=== PATIENT | female | born 1950 | race Caucasian/White ===

== ENCOUNTER 2017-06-07 10:30 | Outpatient (RCR) | payer MEDICARE, SELFPAY ==
--- NOTE | 2017-04-20 10:55 | HP.OTEVAL_ITS ---
Patient's Visit Information DANDRE PERAZA is a 66 year old F, referred to Occupational Therapy by Nae Pan DO,, with a diagnosis of right trigger finger D3 and D4. Date of Evaluation: 04/20/17 Occupational Therapist: Georgette Stockton, EUGENER/Rob, CHT - Subjective Subjective: pt states she was having trouble with right 3rd and 4th digit triggering- pt states she had a number of cortizone shots but after 2-3 trials her triggering cont. to get worse- pt is s/p right 3rd/and 4th trigger finger release on Mar.29. pt states limited ROM and strength are preventing her form perform her BADLS and IADLs ind. 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 - ROM MP: right MF 75 right RF 75 left MF 85 left RF 80 PIP: right MF 70 right RF 85 left MF 90 left RF 95 DIP: right MF 65 right RF 35 left [id number] left RF 50 - Strength Bobbin Inspector: right 22# left 30# Lateral Pinch: right 10# left 6# Tripod Pinch: right 2# left 2# - DASH-Disabilities of Arm, Shoulder& Hand DASH Sum: 77 - Goals Goal:: pt will demo a increase in right alumina plant supervisor strength to 35# or greater to retun pt to PLOF with BADLs and IADs. Goal:: Pt will demo a increase in the ability to form a composite fist to peform BADls and IADLS ind. Goal:: pt will report ind. with all home mtg tasks with no limited ROM or weakness preventing pt from performing her tasks by d/c - Rehabilitation General Assessment: pt S/P right trigger finger release of D3 and D4 Rehabilitation Potential: Excellent - Anticipated Interventions Anticipated Interventions: Strengthening, Scar Care, Triggerpoint Release, Modalities, Joint Protection/Energy Conservation - Visit Plan Frequency: 1-2x /Week Duration: 3 Weeks General Plan: pt will initiate BTE to increase pts functional strength, cont with scar and ROM to return pt to PLOF TEXT: Thank you for the opportunity to evaluate your patient. For Medicare and Medicare HMO plans, please review the plan of care and approve it. It will need to be FAXED BACK to us at [phone] for Medicare purposes. Please let me know if there are questions or concerns regarding this plan of care. Physician Signature: Date:
--- NOTE | 2017-05-24 11:43 | HP.PTEVAL_ITS ---
Patient's Visit Information DANDRE PERAZA is a 66 year old F referred to Physical Therapy by Nae Pan DO with a diagnosis of OA L knee. Date of Evaluation: 05/24/17 Physical Therapist: Dunia Gardiner - Visit Plan Frequency: 2x /Week Duration: 2 Weeks Plan: 2X/ week for 2 weeks for L knee and hip strength, core stability, L knee AROM, gait training with HEP and modalities if needed. - Subjective Subjective: Pt reports that her L knee is hurting and it swells. It strarted awhile ago. did x-rays and it showed arthritis. Pt points to the medial side of L knee. She reports that her L knee hurts when she tries to do things. She can not get down into the tub. She has a little trouble getting out of the bath tub. She fell by getting feet tied up in the sheet and fell 3 weeks ago and fell on her L side and eye on L side on dresser. She has also fallen on tailbone. SHe has stairs to basement to do laundry and can do them but bothers her knee and uses the railing. Pt is able to get up out of a chair without using her UE's. - Pain L knee pain Pain Intensity (Out of 10): 4 - Objective Knee AROM: -3 degrees to 132 degrees L knee flexion. -1 degree to 135 degrees R knee flexion. LE MMT: B hip flexion 4/5, B knee ext 4/5, B knee flexion, 4/5 , R hip abd 4-/5 and L 4/5, B hip ext 4-/5. Gait: Pt walks with very slight decrease in stance time on the L but it is very slight. Tight HS and gastroc complex B. Able to sit to stand without the use of her UE's. - Goals Goal 1:: I HEP Goal Time Frame: 2-4 Weeks Goal 2:: Increase L knee AROM -1 degrees to 135 degrees L knee flexion Goal Time Frame: 2-4 Weeks Goal 3:: Decrease pain to 2/10 with ADL's and stairs Goal Time Frame: 2-4 Weeks Goal 4:: Increase R hip extension and B hip extension strength to 4/5 Goal Time Frame: 2-4 Weeks - Rehabilitation Potential Rehabilitation Potential: Good - Anticipated Interventions Patient/Client Instruction: Educate patient on: Condition, Plan of Care For the Purpose of:: To decrease pain, To increase ROM, To improve nutrient delivery to tissue, To improve muscle performance and motor function, To improve ability to perform ADL's Therapeutic Exercise to Include: Strength training, Flexibilty training, Active ROM, Dynamic Lumbar Stabilization For the Purpose of:: To decrease pain, To increase ROM, To improve nutrient delivery to tissue, To improve muscle performance and motor function, To improve ability to perform ADL's Functional Training to Include: Gait training For the Purpose of:: To improve gait and locomotor functions IF ES: Yes Cryotherapy (ice pack, ice massage): Yes Thermo therapy (hot pack): Yes Ultrasound (thermal/non thermal): Yes For the Purpose of:: To decrease pain, To increase ROM, To improve nutrient delivery to tissue Thank you for the opportunity to evaluate your patient. For Medicare and Medicare HMO plans, please review the plan of care and approve it. It will need to be FAXED BACK to us at [phone] for Medicare purposes. Please let me know if there are questions or concerns regarding this plan of care. Physician Signature: Date:
--- NOTE | 2017-06-07 10:54 | HP.PTDCSUM ---
HP - PT D/C Summary It has been my pleasure to treat DANDRE PERAZA under orders from Nae Pan DO, for the diagnosis of OA L knee for a total of 5 visit(s). Discharge Date: 06/07/17 Please see the following information for a summary of their discharge status. - Subjective Subjective: Pt says that somedays her knees just hurt. Pt wants to keep doing the exercises at home...she can not afford her co-pay. - Pain L knee pain Pain Intensity (Out of 10): 3 - Overall Improvement % Improvement: 50 - Objective Objective/Function: L knee -3 degrees to 127 degrees knee flexion - Goals Goal 1:: I HEP Goal Progress: Goal Met Goal 2:: Increase L knee AROM -1 degrees to 135 degrees L knee flexion Goal Progress: Progressing Goal 3:: Decrease pain to 2/10 with ADL's and stairs Goal Progress: Progressing Goal 4:: Increase R hip extension and B hip extension strength to 4/5 Goal Progress: Progressing - Plan Plan: DC PT to HEP - D/C Information Discharge Comments: DC PT to HEP per pt request If there are questions or concerns regarding this patient's physical therapy, please feel free to call me at [phone]. Thank you for the referral of this patient. Sincerely, Dunia Gardiner
--- NOTE | 2017-08-09 09:19 | HP.OTDCSUM_ITS ---
HP - OT D/C Summary It has been my pleasure to treat DANDRE PERAZA under orders from Nae Pan DO, for the diagnosis of right trigger finger D3 and D4 for a total of 3 visit(s). Please see the following information for a summary of their discharge status. - Objective Objective/Function: pt demo the ability to form a composite fist- pt reports she has difficutly with opening jars/lids- pt states she has her do this for now - Goals Patient Goals: Regain Mobility, Regain Strength, Decrease Swelling/Stiffness, Use Hand/Wrist/Arm Normally Again, Increase ROM, Be More Independent in ADLS Goal:: pt will demo a increase in right inspector precision strength to 35# or greater to retun pt to PLOF with BADLs and IADs. Goal:: Pt will demo a increase in the ability to form a composite fist to peform BADls and IADLS ind. Goal:: pt will report ind. with all home mtg tasks with no limited ROM or weakness preventing pt from performing her tasks by d/c - Plan Plan: pt to cont with HEP PRE- - D/C Information If there are questions or concerns regarding this patient's occupational therapy , please fell free to call me at [phone]. Thank you for the referral of this patient. Sincerely, Georgette Stockton, OTR/L, CHT
== END 2017-06-07 19:00 | disposition home or self-care (01) ==
LOC: PT 10:30
PROVIDERS: Family Provider Family Medicine Geriatric Medicine; PCP Family Medicine Geriatric Medicine; Visit Provider Orthopaedic Surgery
DX: M25.641 Stiffness of right hand, not elsewhere classified (principal); M17.12 Unilateral primary osteoarthritis, left knee
CPT/HCPCS: 97018; 97035; 97110; 97140; 97161; 97166; 97530; G8987; G8988

== ENCOUNTER 2017-08-19 20:03 | Emergency (ER) | payer MEDICARE, SELFPAY ==
[2017-08-19 20:05] VITALS: BP 156/93; PULSE 101; RESP 16; TEMP 37.1; O2SAT 94; BMI 33.4
--- NOTE | 2017-08-19 20:33 | ED.DCSUM_ITS ---
- ER Visit Summary Date of Service: 08/19/17 Chief Complaint: Eye cold History of Present Illness: The patient is a 67 F who states that she has had a cold for the past week. When asked what symptoms she is having she states her eyes have been watery. She denies any cough runny nose sore throat earache or any other typical eye cold symptoms. Today she noticed bilateral eye exudates. She notes her eyes are red and continue to water. Clear rhinorrhea for years. No purulence. Since wears glasses but no contacts. She denies any visual changes. Physical Examination: Afebrile vital signs are stable Gen: Well-nourished well-developed Head: Normocephalic atraumatic Eyes: Perrl EOMI patient has bilateral conjunctival swelling and injection. There is exudate diffusely and on the lashes. ENT: TMs clear no rhinorrhea moist mucous membranes Neck: Supple no lymphadenopathy no JVD nontender CVS: Regular rate rhythm no murmurs normal S1-S2 Respiratory: No distress clear to auscultation bilaterally chest nontender Abdomen: Soft nontender nondistended normal bowel sounds no masses Back: Nontender Extremity: Nontender no edema Skin: Normal color no rash Neuro: alert orientated ?3 CN II-XII intact normal strength sensation reflexes gait cerebellar Psych: Normal affect normal mood Emergency Department Course and Treatment: Was treated with gentamicin ophthalmic drops. She will continue treatment at home. Return if worsening follow-up as needed. Impression: 1. Bilateral conjunctivitis This note was generated with [employer] dictation software. It may contain incorrect words, spelling, and punctuation that were not noted in review of the chart prior to signing ED Disposition - Plan for ED Patient: Disposition: Home or Assisted Living Chief Complaint: Eye Problem Instructions: ED Conjunctivitis Bacterial Prescriptions: Gentamicin Ophthalmic Drops [Garamycin Ophthalmic Drops] 2 drp EACH EYE Q4 7 Days #1 opth.btl Referrals: Raji Herrmann Chi, MD [Primary Care Provider] - 3-5 Days if not improving
[2017-08-19] MEDS: Gentamicin Sulfate 1 OPTH.BTL 2 DRP EACH EYE (20:50)
== END 2017-08-19 20:50 | disposition home or self-care (01) ==
LOC: ED 20:40
PROVIDERS: Emergency Provider Emergency Medicine; Family Provider Family Medicine Geriatric Medicine; PCP Family Medicine Geriatric Medicine
DX: H10.9 Unspecified conjunctivitis (principal); K21.9 Gastro-esophageal reflux disease without esophagitis; E78.00 Pure hypercholesterolemia, unspecified; E03.9 Hypothyroidism, unspecified; Z79.899 Other long term (current) drug therapy
CPT/HCPCS: 99282

== ENCOUNTER → 2017-10-17 16:53 | Outpatient (CLI) | payer MEDICARE, SELFPAY ==
--- NOTE | 2017-10-17 17:01 | RAD_ITS ---
STUDY: X-RAY - ABDOMEN/PELVIS REASON FOR EXAM: Female, 67 years old. Constipation, pain TECHNIQUE: AP supine and upright views of the abdomen and pelvis. COMPARISON: CT scan of the abdomen and pelvis December 04, 2014 FINDINGS: Normal visualized lung bases. There is a relative decompressed appearance of the colon with a minimal amount of stool within the descending colon. There is no demonstrated free abdominal air. The visualized liver, spleen and kidneys are grossly normal in size and morphology. There are tubal ligation clips present. Normal soft tissue structures. There are diffuse degenerative changes of the visualized lumbar spine. RAD/Abd Inc Decub and/or Erect IMPRESSION: Minimal stool burden. Nonspecific bowel gas pattern. Electronically Signed: Karon De La Vega MD at 17:32 EDT Tel , Service support ,
== END ==
PROVIDERS: Family Provider Family Medicine Geriatric Medicine; PCP Family Medicine Geriatric Medicine; Visit Provider Family Medicine Geriatric Medicine
DX: K59.00 Constipation, unspecified (principal)
CPT/HCPCS: 74019; J2405

== ENCOUNTER 2017-10-24 16:00 | Inpatient (IN) | payer MEDICARE, SELFPAY ==
--- NOTE | 2017-10-13 08:27 | EKG12_ITS ---
Test Reason : Blood Pressure : / mmHG Vent. Rate : 072 BPM Atrial Rate : 072 BPM P-R Int : 138 ms QRS Dur : 082 ms QT Int : 394 ms P-R-T Axes : -10 -05 008 degrees QTc Int : 431 ms Normal sinus rhythm Possible Inferior infarct , age undetermined Abnormal ECG Confirmed by JENNIFER SHAH, HUGO ([id number]), editor index CALIXTO ZHANG ([id number]) on 10/17/2017 3:58:49 PM Referred By: MELQUIADES Confirmed By:HUGO RODRIGUEZ MD
[2017-10-13 08:29] VITALS: BP 148/79; PULSE 75; RESP 18; TEMP 37.1; O2SAT 96; BMI 32.0
[2017-10-13 09:21] LABS: Absolute Lymphocyte Count 2.34 X10^3/ul (0.83-4.51); Absolute Neutrophil Count 2.7 X10^3/uL (2.0-7.7); Basophil# 0.03 X10^3/uL; Basophil% 0.5 % (0-1); Eosinophil# 0.22 X10^3/uL; Eosinophils% 3.4 % (0-5); Hematocrit 40.7 % (37-47); Hemoglobin 12.7 g/dl (12.0-15.0); Lymphocyte # 2.34 X10^3/ul (4.0); Lymphocyte % 36.2 % (19-41); Mean Corp Hgb Conc 31.2 g/gl (32-36); Mean Corpuscular Hgb 28.4 pg (27.0-32.0); Mean Corpuscular Volume 91.1 fL (81-99); Monocyte# 1.16 X10^3/uL; Monocyte% 17.9 % (0-10); Neutrophil # 2.72 X10^3/uL (2.7-7.7); POSITIVE COUNT NO; POSITIVE DIFFERENTIAL NO; POSITIVE MORPHOLOGY NO; Platelet Count 258 K/mm3 (150-450); RBC Distribution Width CV 12.7 % (11.6-14.6); RBC Distribution Width SD 42.1 fl (35.1-43.9); Red Blood Count 4.47 M/mm3 (4.2-5.4); White Blood Count 6.5 K/mm3 (4.4-11.0)
[2017-10-13 09:51] LABS: Anion Gap 7 (5-15); BUN 7 mg/dL (7-18); BUN/Creat Ratio 8.9 RATIO (10-20); Calcium,Total 8.8 mg/dL (8.5-10.1); Chloride 106 mmol/L (98-107); Creatinine, Serum 0.79 mg/dL (0.55-1.02); EST Glomerular Filtration Rate 77 mL/min (>60); Est Glom Filt Rate - Afr Amer 93 mL/min (>60); Estimated Creatinine Clearance 47.78 ml/min; Glucose 88 mg/dL (74-106); Potassium 3.8 mmol/L (3.5-5.1); Sodium Level 140 mmol/L (136-145); Thyroid Stim Hormone (TSH) 2.64 uIU/mL (0.358-3.74)
--- NOTE | 2017-10-20 11:37 | CASEMGMT ---
RN CM attempted to perform pre-op discharge needs assessment. Voicemail received and left contact information, requesting return call to CM.
--- NOTE | 2017-10-24 14:40 | RAD_ITS ---
STUDY: X-RAY - LEFT KNEE REASON FOR EXAM: Female, 67 years old. Postop TECHNIQUE: 2 view(s) of the knee. COMPARISON: April 17, 2017 FINDINGS: Status post left total knee replacement. The hardware components are well aligned. Postsurgical changes in the adjacent soft tissue. Skin aleyda anteriorly.. RAD/Knee 1 or 2 Views IMPRESSION: Status post total left knee replacement with postsurgical changes. Electronically Signed: Wilmer Lemon DO at 21:24 EDT Tel [phone], Service support ,
--- NOTE | 2017-10-24 16:00 | DT_ITS ---
This patient was seen during an EMR downtime October 23, 2017 - October 30, 2017. This patient may have a combination of paper and electronic documentation or all paper documentation. All documentation is viewable within the e-chart portion of [employer] for each patient visit.
[2017-10-28 08:40] LABS: Red Blood Count 3.87 M/mm3 (4.2-5.4); White Blood Count 13.6 K/mm3 (4.4-11.0)
[2017-10-28 08:41] LABS: Hematocrit 35.4 % (37-47); Mean Corp Hgb Conc 31.1 g/gl (32-36); Mean Corpuscular Hgb 28.4 pg (27.0-32.0); Mean Corpuscular Volume 91.5 fL (81-99); Mean Platelet Vol. 11.5 fl (6.2-12.0); Platelet Count 256 K/mm3 (150-450); RBC Distribution Width CV 12.9 % (11.6-14.6); RBC Distribution Width SD 43.1 fl (35.1-43.9); Scan Indicated on CBC? Y/N NO
[2017-10-28 10:15] LABS: Anion Gap 10 (5-15); BUN 11 mg/dL (7-18); BUN/Creat Ratio 13.1 RATIO (10-20); Calcium,Total 8.3 mg/dL (8.5-10.1); Chloride 106 mmol/L (98-107); Creatinine, Serum 0.84 mg/dL (0.55-1.02); EST Glomerular Filtration Rate 71 mL/min (>60); Est Glom Filt Rate - Afr Amer 86 mL/min (>60); Estimated Creatinine Clearance 56.88 ml/min; Glucose 122 mg/dL (74-106); Potassium 4.2 mmol/L (3.5-5.1); Sodium Level 142 mmol/L (136-145)
[2017-10-28 15:23] LABS: Hematocrit 33.5 % (37-47); Hemoglobin 10.4 g/dl (12.0-15.0); Mean Corpuscular Hgb 28.7 pg (27.0-32.0); Mean Corpuscular Volume 92.5 fL (81-99); Platelet Count 226 K/mm3 (150-450); RBC Distribution Width CV 13.2 % (11.6-14.6); RBC Distribution Width SD 44.9 fl (35.1-43.9); Red Blood Count 3.62 M/mm3 (4.2-5.4); White Blood Count 10.5 K/mm3 (4.4-11.0)
[2017-10-28 15:24] LABS: Mean Platelet Vol. 11.4 fl (6.2-12.0); Scan Indicated on CBC? Y/N NO
== END 2017-10-26 15:45 | disposition home or self-care (01) | DRG 470 ==
PROVIDERS: Anesthesiology; Admitting Provider Specialist; Family Provider Family Medicine Geriatric Medicine; PCP Family Medicine Geriatric Medicine; Visit Provider Specialist
PROC: 0SRD0J9 Replacement of Left Knee Joint with Synthetic Substitute, Cemented, Open Approach (ICD-10-PCS; CPT 27447; principal; 2017-10-24 12:15)
DX: M17.0 Bilateral primary osteoarthritis of knee (principal); I10 Essential (primary) hypertension; E03.9 Hypothyroidism, unspecified; F32.9 Major depressive disorder, single episode, unspecified; E78.00 Pure hypercholesterolemia, unspecified; Z79.899 Other long term (current) drug therapy
CPT/HCPCS: 36415; 73560; 80048; 84443; 85025; 85027; 87081; 93005; 97116; 97162; 97166; 97530; 97535; C1776; J7120; G8978; G8979; G8987; G8988; J2405

== ENCOUNTER → 2017-11-30 09:15 | Outpatient (CLI) | payer MEDICARE, SELFPAY ==
[2017-11-30 17:26] LABS: Absolute Lymphocyte Count 2.96 X10^3/ul (0.83-4.51); Absolute Neutrophil Count 3.3 X10^3/uL (2.0-7.7); Basophil# 0.03 X10^3/uL; Basophil% 0.4 % (0-1); Eosinophil# 0.18 X10^3/uL; Eosinophils% 2.4 % (0-5); Hematocrit 41.2 % (37-47); Hemoglobin 12.8 g/dl (12.0-15.0); Lymphocyte # 2.96 X10^3/ul (4.0); Lymphocyte % 38.9 % (19-41); Mean Corp Hgb Conc 31.1 g/gl (32-36); Mean Corpuscular Hgb 28.7 pg (27.0-32.0); Mean Corpuscular Volume 92.4 fL (81-99); Mean Platelet Vol. 11.6 fl (6.2-12.0); Monocyte# 1.16 X10^3/uL; Monocyte% 15.3 % (0-10); Neutrophil # 3.26 X10^3/uL (2.7-7.7); Neutrophil % 42.9 % (47-70); Platelet Count 291 K/mm3 (150-450); RBC Distribution Width CV 13.5 % (11.6-14.6); RBC Distribution Width SD 44.5 fl (35.1-43.9); Red Blood Count 4.46 M/mm3 (4.2-5.4); White Blood Count 7.6 K/mm3 (4.4-11.0)
[2017-11-30 17:49] LABS: POSITIVE COUNT NO; POSITIVE DIFFERENTIAL NO; POSITIVE MORPHOLOGY NO
[2017-11-30 17:58] LABS: ALB/GLOB Ratio 0.8 RATIO (0.9-2.4); AST(SGOT) 22 U/L (15-37); Alanine Aminotransfer ALT/SGPT 19 U/L (13-56); Albumin, Serum 3.8 g/dL (3.2-5.0); Alkaline Phosphatase 161 U/L (45-117); Anion Gap 11 (5-15); BUN 5 mg/dL (7-18); BUN/Creat Ratio 6.6 RATIO (10-20); Calcium,Total 8.9 mg/dL (8.5-10.1); Chloride 103 mmol/L (98-107); Cholesterol 169 mg/dL (200); Creatinine, Serum 0.76 mg/dL (0.55-1.02); EST Glomerular Filtration Rate 80 mL/min (>60); Est Glom Filt Rate - Afr Amer 97 mL/min (>60); Globulin 4.6 g/dL (2.2-4.2); Glucose 88 mg/dL (74-106); High Density Lipoprotein 48 mg/dL; Potassium 3.6 mmol/L (3.5-5.1); Protein, Total 8.4 g/dL (6.4-8.2); Sodium Level 141 mmol/L (136-145); Triglycerides 234 mg/dL; Very Low Density Lipoprotein 47 mg/dL (5-40)
[2017-12-01 09:00] LABS: Vitamin D,25 Hydroxy 33.2 ng/mL (29.95-100.01)
[2017-12-03 10:21] LABS: Hep C Antibodies 0.1 s/co ratio (0.0-0.9)
== END ==
PROVIDERS: Family Provider Family Medicine Geriatric Medicine; PCP Family Medicine Geriatric Medicine; Visit Provider Family Medicine Geriatric Medicine
DX: E55.9 Vitamin D deficiency, unspecified (principal); E78.4 Other hyperlipidemia; I10 Essential (primary) hypertension; Z13.89 Encounter for screening for other disorder
CPT/HCPCS: 36415; 80053; 80061; 82306; 84443; 85025; 86803

== ENCOUNTER → 2018-05-16 13:55 | Outpatient (CLI) | payer MEDICARE, SELFPAY ==
[2018-05-16 13:11] VITALS: BMI 32.0
== END ==
PROVIDERS: Family Provider Family Medicine Geriatric Medicine; PCP Family Medicine Geriatric Medicine; Referring Provider Physician Assistant; Visit Provider Physician Assistant
DX: J02.9 Acute pharyngitis, unspecified (principal)
CPT/HCPCS: 87081

== ENCOUNTER → 2018-05-23 17:02 | Outpatient (CLI) | payer MEDICARE, SELFPAY ==
[2018-05-16 13:11] VITALS: BMI 32.0
== END ==
PROVIDERS: Family Provider Family Medicine Geriatric Medicine; PCP Family Medicine Geriatric Medicine; Referring Provider Family Medicine Geriatric Medicine; Visit Provider Family Medicine Geriatric Medicine
DX: R68.83 Chills (without fever) (principal)
CPT/HCPCS: 87633

== ENCOUNTER → 2018-06-01 09:47 | Outpatient (CLI) | payer MEDICARE, SELFPAY ==
[2018-05-16 13:11] VITALS: BMI 32.0
--- NOTE | 2018-06-01 09:50 | BI_ITS ---
MAMMOGRAPHY - BILATERAL SCREENING REASON FOR EXAM: Female, 67 years old. Routine annual screening examination. PERTINENT HISTORY: Non-contributory. TECHNIQUE: Digital bilateral breast trinh (3D mammographic acquisition) in the CC and MLO projections. 2-D mediolateral oblique (MLO) and craniocaudad (CC) views of both breasts were obtained. . CAD was not performed on this study. COMPARISON: Comparison is made with prior study dated 2017 and December 21, 2015. FINDINGS: Breast Composition: The breasts are almost entirely fatty. There are no dominant masses or suspicious calcifications. Stable small bilateral axillary lymph nodes. No other significant abnormalities are identified. There has been no significant change since the prior study. BI/SCREENING MAMM (CAD), BILAT IMPRESSION: Stable bilateral screening mammogram. Yearly follow-up mammogram recommended. (A) ASSESSMENT CATEGORY: BIRADS Category 2: Benign. A letter regarding these results will be sent to the patient by the facility within 30 days. Approximately 10% of breast cancers are not detected by mammography. A normal mammogram should not delay biopsy of a clinically suspicious abnormality. [id number] Electronically Signed: Chan Bowers MD at 14:39 EST Tel [phone], Service support ,
== END ==
PROVIDERS: Family Provider Family Medicine Geriatric Medicine; PCP Family Medicine Geriatric Medicine; Visit Provider Family Medicine Geriatric Medicine
DX: Z12.31 Encounter for screening mammogram for malignant neoplasm of breast (principal)
CPT/HCPCS: 77063; 77067

== ENCOUNTER → 2018-06-06 13:30 | Outpatient (CLI) | payer MEDICARE, SELFPAY ==
[2018-05-16 13:11] VITALS: BMI 32.0
[2018-06-06 17:26] LABS: Absolute Lymphocyte Count 3.35 X10^3/ul (0.83-4.51); Absolute Neutrophil Count 3.6 X10^3/uL (2.0-7.7); Basophil# 0.03 X10^3/uL; Basophil% 0.3 % (0-1); Eosinophil# 0.13 X10^3/uL; Eosinophils% 1.5 % (0-5); Hematocrit 43.5 % (37-47); Hemoglobin 13.3 g/dl (12.0-15.0); Lymphocyte # 3.35 X10^3/ul (4.0); Lymphocyte % 38.8 % (19-41); Mean Corp Hgb Conc 30.6 g/gl (32-36); Mean Corpuscular Volume 94.8 fL (81-99); Mean Platelet Vol. 11.9 fl (6.2-12.0); Monocyte# 1.47 X10^3/uL; Neutrophil # 3.62 X10^3/uL (2.7-7.7); Neutrophil % 41.9 % (47-70); Platelet Count 336 K/mm3 (150-450); RBC Distribution Width CV 13.2 % (11.6-14.6); RBC Distribution Width SD 43.8 fl (35.1-43.9); Red Blood Count 4.59 M/mm3 (4.2-5.4); White Blood Count 8.6 K/mm3 (4.4-11.0)
[2018-06-06 17:41] LABS: Vitamin D,25 Hydroxy 27.7 ng/mL (29.95-100.01)
[2018-06-06 17:45] LABS: POSITIVE COUNT NO; POSITIVE DIFFERENTIAL NO; POSITIVE MORPHOLOGY NO
[2018-06-06 17:48] LABS: ALB/GLOB Ratio 0.9 RATIO (0.9-2.4); AST(SGOT) 20 U/L (15-37); Alanine Aminotransfer ALT/SGPT 26 U/L (13-56); Albumin, Serum 3.5 g/dL (3.2-5.0); Alkaline Phosphatase 113 U/L (45-117); Anion Gap 9 (5-15); BUN 14 mg/dL (7-18); BUN/Creat Ratio 16.1 RATIO (10-20); Calcium,Total 8.9 mg/dL (8.5-10.1); Chloride 104 mmol/L (98-107); Cholesterol 171 mg/dL (200); Creatinine, Serum 0.87 mg/dL (0.55-1.02); EST Glomerular Filtration Rate 68 mL/min (>60); Est Glom Filt Rate - Afr Amer 83 mL/min (>60); Globulin 3.9 g/dL (2.2-4.2); Glucose 74 mg/dL (74-106); High Density Lipoprotein 48 mg/dL; Potassium 3.9 mmol/L (3.5-5.1); Protein, Total 7.4 g/dL (6.4-8.2); Sodium Level 141 mmol/L (136-145); Thyroid Stim Hormone (TSH) 0.65 uIU/mL (0.358-3.74); Triglycerides 253 mg/dL; Very Low Density Lipoprotein 51 mg/dL (5-40)
--- OUTSIDE RECORDS SUMMARY | 2018-08-11 10:08 | XMS RPT_ITS ---
:1950 Author Organization [facility] Support Name Relationship Address Phone R Unavailable Unavailable Unavailable SWARTZENTRUBER, CIPRIANO Unavailable [address] + [place] [address] R Unavailable Unavailable Unavailable SWARTZENTRUBER, CIPRIANO Unavailable [address] + [place] [address] R Unavailable Unavailable Unavailable SWARTZENTRUBER, CIPRIANO Unavailable [address] + [place] [address] R Unavailable Unavailable Unavailable SWARTZENTRUBER, CIPRIANO Unavailable [address] + [place] [address] R Unavailable Unavailable Unavailable SWARTZENTRUBER, CIPRIANO Unavailable [address] + [place] [address] R Unavailable Unavailable Unavailable SWARTZENTRUBER, CIPRIANO Unavailable [address] + [place] [address] R Unavailable Unavailable Unavailable SWARTZENTRUBER, CIPRIANO Unavailable [address] + [place] [address] R Unavailable Unavailable Unavailable SWARTZENTRUBER, CIPRIANO Unavailable [address] + [place] [address] R Unavailable Unavailable Unavailable SWARTZENTRUBER, CIPRIANO Unavailable [address] + [place] [address] R Unavailable Unavailable Unavailable SWARTZENTRUBER, CIPRIANO Unavailable [address] + [place] [address] R Unavailable Unavailable Unavailable SWARTZENTRUBER, CIPRIANO Unavailable [address] + [place] [address] R Unavailable Unavailable Unavailable SWARTZENTRUBER, CIPRIANO Unavailable [address] + [place] [address] R Unavailable Unavailable Unavailable SWARTZENTRUBER, CIPRIANO Unavailable [address] + [place] [address] R Unavailable Unavailable Unavailable SWARTZENTRUBER, CIPRIANO Unavailable [address] + [place] [address] Care Team Providers Name Role Phone Jorge Cota Attending Unavailable Montez, Raji Chi Referring Unavailable Jorge Cota Attending Unavailable Jorge Cota Referring Unavailable Montez, Raji Chi Primary Care Unavailable Montez, Raji Chi Attending Unavailable Montez, Raji Chi Referring Unavailable Montez, Raji Chi Primary Care Unavailable Montez, Raji Chi Attending Unavailable Montez, Raji Chi Primary Care Unavailable Montez, Raji Chi Attending Unavailable Montez, Raji Chi Primary Care Unavailable Montez, Raji Chi Attending Unavailable Montez, Raji Chi Referring Unavailable Montez, Raji Chi Primary Care Unavailable Montez, Raji Chi Primary Care Unavailable Guilherme Todd Attending Unavailable Jorge Frances Admitting Unavailable Jorge Frances Attending Unavailable Montez, Raji Chi Primary Care Unavailable Montez, Raji Chi Attending Unavailable Montez, Raij Chi Referring Unavailable Montez, Raji Chi Primary Care Unavailable Lyle Saul Attending Unavailable Laverne Jurado Attending Unavailable Santana Rodriguez Attending Unavailable Jorge Frances Referring Unavailable Montez, Raji Chi Attending Unavailable Montez, Raji Chi Primary Care Unavailable Nae Pan Attending Unavailable Montez, Raji Chi Primary Care Unavailable PROBLEMS PROBLEMS DATE TYPE CONDITION / CODE ATTENDING STATUS SOURCE 06/15/2018 Unknown R68.83 - Chills Montez, Raji Chi Active [place] (without fever) / Community R68.83(ICD-10) Hospital Repository 11/30/2017 Unknown E55.9 - Vitamin D Montez, Raji Chi Active [place] deficiency, Community unspecified / Hospital E55.9(ICD-10) Repository 11/30/2017 Unknown E78.4 - Other Montez, Raji Chi Active [place] hyperlipidemia / Community E78.4(ICD-10) Hospital Repository 11/30/2017 Unknown I10 - Essential Montez, Raji Chi Active [place] (primary) hypertension Community / I10(ICD-10) Hospital Repository 11/30/2017 Unknown Z13.89 - Encounter for Montez, Raji Chi Active [place] screening for other Community disorder / Hospital Z13.89(ICD-10) Repository 10/17/2017 Unknown K59.00 - Constipation, Montez, Raji Chi Active [place] unspecified / Community K59.00(ICD-10) Hospital Repository 11/24/2017 Unknown R94.31 - Abnormal [place], Active [place] electrocardiogram [place] [ECG] [EKG] / Hospital R94.31(ICD-10) Repository 08/10/2017 Unknown M25.641 - Stiffness of [place], Active [place] right hand, not Nae Community elsewhere classified / Hospital M25.641(ICD-10) Repository PROCEDURES PROCEDURES No Procedure Records FoundRESULTS RESULTS Observed: 06/15/2018 Status: F Source: [place] RESPIRATORY PANEL 11:27 AM [facility]ULAR REPOSITORY RP PANEL Normal Reference Range = Not Detected RESULTS CALLED TO DR BLUE ANSWERING LINE 06/16/18 1106 Karon Trujillo. REPORT READ BACK BY NO ONE Copy of report sent to Infection Control Printer MS#[id number] 06/16/18 1105 DGRADY. ADENOVIRUS Not Detected HUMAN METAPHNEUMO Not Detected INFLUENZA A Positive for INFLUENZA A by NAAT technology INFLUENZA A (SUBTYPE H1) Positive for INFLUENZA A SUBTYPE H1 by NAAT technology INFLUENZA A (SUBTYPE H3) Not Detected INFLUENZA B Not Detected PARAINFLUENZA 1 Not Detected PARAINFLUENZA 2 Not Detected PARAINFLUENZA 3 Not Detected PARAINFLUENZA 4 Not Detected RHINOVIRUS Not Detected RSV A Not Detected RSV B Not Detected NAAT METHOD Testing was performed using nucleic acid amplification ORGANISM 1: INFLUENZA A (SUBTYPE H1) Performed By: #### M100.638 #### [facility] [address] [place], [address] VITAMIN D,25 HYDROXY Collected: 06/06/2018 Status: F Source: [place] 1:32 PM [facility] REPOSITORY TYPE CODE TESTS RESULT OUT OF REFERENCE UNITS RANGE LAB L506.1000 29.95-100.01 ng/mL Low Vitamin D 27.7 25-OH Result Comment: Vitamin D 25(OH) Status Range Deficiency <20 ng/mL (50nmol/L) Insuffciency 20 - 30 ng/mL (50 - 75 nmol/L) Sufficiency 30 - 100 ng/mL (75 - 250 nmol/L) Toxicity >100 ng/mL (>250 nmol/L) Performed By: #### L506.1000 #### [facility] [address] [place], [address] CBC W/DIFF, AUTOMATED Collected: 06/06/2018 Status: F Source: [place] 1:32 PM [facility] REPOSITORY TYPE CODE TESTS RESULT OUT OF RANGE REFERENCE UNITS LAB L100.1000 4.4-11.0 K/mm3 Normal WBC 8.6 LAB L100.1200 4.2-5.4 M/mm3 Normal RBC 4.59 LAB L100.1300 12.0-15.0 g/dl Normal HGB 13.3 LAB L100.1400 37-47 % Normal HCT 43.5 LAB L100.1500 81-99 fL Normal MCV 94.8 LAB L100.1600 27.0-32.0 pg Normal MCH 29.0 LAB L100.1700 32-36 g/gl Low MCHC 30.6 LAB L100.1810 11.6-14.6 % Normal RDW CV 13.2 LAB L100.1820 35.1-43.9 fl Normal RDW SD 43.8 LAB L100.1900 150-450 K/mm3 Normal PLT 336 LAB L100.2000 6.2-12.0 fl Normal MPV 11.9 LAB L100.2100 47-70 % Low NEUT% 41.9 LAB L100.2200 19-41 % Normal LY% 38.8 LAB L100.2300 0-10 % High MONO% 17.0 LAB L100.2400 0-5 % Normal EO% 1.5 LAB L100.2500 0-1 % Normal BASO% 0.3 LAB L100.2550 0.0-0.9 % Normal IM GRAN % 0.500 Result Comment: IG% - Immature Granulocytes (promyelocytes, myelocytes and metamyelocytes) > 1% indicates that a LEFT SHIFT is Present. LAB L100.2620 2.0-7.7 X10 3/uL Normal Absolute Neut 3.6 LAB L100.2720 0.83-4.51 X10 3/ul Normal Absolute Lymph 3.35 Performed By: #### L100.0100 #### [facility] [place], [address] COMPREHENSIVE METABOLIC Collected: 06/06/2018 Status: F Source: [place] TAY 1:32 PM [facility] REPOSIT[facility] TYPE CODE TESTS RESULT OUT OF RANGE REFERENCE UNITS LAB L501.0100 74-106 mg/dL Normal GLU 74 Result Comment: Please note revised GLUCOSE reference range effective 2017. LAB L501.1000 7-18 mg/dL Normal BUN 14 LAB L501.1100 0.55-1.02 mg/dL Normal CREAT,SERUM 0.87 Result Comment: The validity of the calculated GFR AND GFRAA in patients over 70 years has not been determined. Clinical correlation is essential. LAB L501.1110 >60 mL/min Normal EST GFR 68 Result Comment: Non- GFR Calc LAB L501.1115 >60 mL/min Normal EST GFR - AA 83 Result Comment: GFR Calc LAB L501.1300 10-20 RATIO Normal BUN/CRE 16.1 LAB L501.1500 6.4-8.2 g/dL T Normal PROT 7.4 LAB L501.1800 3.2-5.0 g/dL Normal ALB 3.5 LAB L501.1950 2.2-4.2 g/dL Normal GLOB 3.9 LAB L501.2000 0.9-2.4 RATIO Normal A/G 0.9 LAB L501.2200 8.5-10.1 mg/dL CA Normal 8.9 LAB L501.4100 15-37 U/L Normal AST 20 LAB L501.4305 45-117 U/L Normal ALK P 113 LAB L501.4405 13-56 U/L Normal ALT 26 LAB L501.4600 0.20-1.00 mg/dL T Normal BILI 0.20 LAB L501.5300 136-145 mmol/L NA Normal 141 LAB L501.5600 3.5-5.1 mmol/L K Normal 3.9 LAB L501.5900 98-107 mmol/L CL Normal 104 LAB L501.6100 21.0-32.0 mmol/L Normal CO2 28.0 LAB L501.6200 5-15 Normal GAP 9 Performed By: #### L500.4050, L500.4100, L501.9520 #### [facility] [address] [place], [address] LIPID PROFILE Collected: 06/06/2018 Status: F Source: [place] 1:32 PM [facility] REPOSITORY TYPE CODE TESTS RESULT OUT OF RANGE REFERENCE UNITS LAB L501.4900 200 mg/dL Normal CHOL 171 Result Comment: <200 mg/dL Desirable 200-240 mg/dL Borderline >240 mg/dL High Risk LAB L501.5000 mg/dL High TRIG 253 Result Comment: The drugs N-Acetylcysteine and Metamizole may falsely depress this assay. Serum Triglycerides Reference Interval Normal <150 mg/dL Borderline high 150 - 199 mg/dL High 200 - 499 mg/dL Very High > or = 500 mg/dL LAB L501.6400 mg/dL Normal HDL 48 Result Comment: The drugs N-Acetylcysteine and Metamizole may falsely depress this assay. Reference Range HDL <40 mg/dL Low HDL Cholesterol HDL >or= 60 mg/dL High HDL Cholesterol LAB L501.6500 0-130 mg/dL Normal LDL 72 LAB L501.6600 5-40 mg/dL High VLDL 51 Performed By: #### L500.4050, L500.4100, L501.9520 #### [facility] [address] [facility] [place], [address] THYROID STIM HORMONE Collected: 06/06/2018 Status: F Source: [place] (TSH) 1:32 PM [facility] REPOSITORY TYPE CODE TESTS RESULT OUT OF RANGE REFERENCE UNITS LAB L501.9520 0.358-3.74 uIU/mL Normal TSH 0.65 Performed By: #### L500.4050, L500.4100, L501.9520 #### [facility] [address] [place], [address] SCREENING MAMM (CAD), Observed: 06/01/2018 Status: F Source: [place] BILAT 9:50 AM [facility] REPOSITORY [facility] Imaging Services [address] [place] [address] SCREENING MAMM (CAD), BILAT MR#: [id number] Acct: [id number] Name: DANDRE PERAZA Rep #: [id number] : 1950 F 67 From: Chan Bowers MD PCP: Raji Blue MD, Chi Status: REG CLI Study: SCREENING MAMM (CAD), BILAT Date of Exam: 06/01/18 Exam# [id number] Ordering Dr: Raji Blue MD MAMMOGRAPHY - BILATERAL SCREENING REASON FOR EXAM: Female, 67 years old. Routine annual screening examination. PERTINENT HISTORY: Non-contributory. TECHNIQUE: Digital bilateral breast trinh (3D mammographic acquisition) in the CC and MLO projections. 2-D mediolateral oblique (MLO) and craniocaudad (CC) views of both breasts were obtained. . CAD was not performed on this study. COMPARISON: Comparison is made with prior study dated 2017 and December 21, 2015. FINDINGS: Breast Composition: The breasts are almost entirely fatty. There are no dominant masses or suspicious calcifications. Stable small bilateral axillary lymph nodes. No other significant abnormalities are identified. There has been no significant change since the prior study. BI/SCREENING MAMM (CAD), BILAT IMPRESSION: Stable bilateral screening mammogram. Yearly follow-up mammogram recommended. (A) ASSESSMENT CATEGORY: BIRADS Category 2: Benign. A letter regarding these results will be sent to the patient by the facility within 30 days. Approximately 10% of breast cancers are not detected by mammography. A normal mammogram should not delay biopsy of a clinically suspicious abnormality. [id number] Electronically Signed: Chan Bowers MD at 14:39 EST Tel [phone], Service support , CC: Raji Blue MD [employer] Plant Manager: Signed Observed: 05/23/2018 Status: F Source: [place] RESPIRATORY PANEL 5:33 PM [facility] REPOSIT[facility] RP PANEL Normal Reference Range = Not Detected RESULTS CALLED TO NURSE NADINE 05/24/18 1432 Katharine Gandara. Copy of report sent to Infection Control Printer MS#[id number] 05/24/18 143Raman SIMS. ADENOVIRUS Not Detected HUMAN METAPHNEUMO Positive for HUMAN METAPHNEUMO VIRUS by NAAT technology INFLUENZA A Not Detected INFLUENZA A (SUBTYPE H1) Not Detected INFLUENZA A (SUBTYPE H3) Not Detected INFLUENZA B Not Detected PARAINFLUENZA 1 Not Detected PARAINFLUENZA 2 Not Detected PARAINFLUENZA 3 Not Detected PARAINFLUENZA 4 Not Detected RHINOVIRUS Not Detected RSV A Not Detected RSV B Not Detected NAAT METHOD Testing was performed using nucleic acid amplification ORGANISM 1: HUMAN META Performed By: #### M100.638 #### [facility] [address] [place], [place], [id number] Observed: 05/16/2018 Status: F Source: [place] CULTURE, R/O STREP A 2:22 PM [facility] REPOSITORY ALVA Culture No Group A Beta Streptococcus isolated. * This cultures intended use is to screen for Beta Streptococcus A only. All other pathogens and potential pathogens will not be screened for or reported. If a complete workup of all potential pathogens is indicated an order for a routine throat culture is required. Performed By: #### M100.010 #### [facility] [address] [place], [place], [id number] URGENT CARE VISIT Observed: 05/16/2018 Status: F Source: [place] REPORT 1:11 PM [facility] REPOSITORY 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 Required: No Accompanied by: Self Is patient in pain?: No Allergies histamine phosphate [From Histatrol] Allergy (Verified 10/13/17 08:09) Unknown Medications Levothyroxine [Synthroid] 88 mcg PO DAILY 08/21/13 [History Confirmed 10/13/17] Omeprazole [Prilosec] 40 mg PO DAILY 08/21/13 [History Confirmed 10/13/17] Olanzapine 5 mg PO DAILY 03/22/17 [History Confirmed 10/13/17] Paroxetine HCl [Paxil] 40 mg PO DAILY 03/22/17 [History Confirmed 10/13/17] Potassium 20 mg PO BID 03/22/17 [History Confirmed 10/13/17] Pravastatin [Pravachol] 40 mg PO QHS 03/22/17 [History Confirmed 10/13/17] Quetiapine Fumarate [Seroquel] 25 mg PO DAILY 08/19/17 [History Confirmed 10/13/17] Calcium Carbonate/Vitamin D3 [Calcium 600-Vit D3 800 Tablet] 1 ea PO DAILY 10/13/17 [History Confirmed 10/13/17] azithromycin 250 mg tablet 250 mg PO QDAY #12 tab 05/16/18 [Rx Confirmed 05/16/18] Nurse's Note: Patient did not have medication list available [facility] History Hemorrhoids (Acute) Thyroid disease (Acute) Surgical History History of knee replacement (Acute) Family History Other Heart disease Social History Smoking Status: Never smoker HPI HPI Chief Complaint: Sore throat, cough Details: DANDRE PERAZA, is a 67 F who presents to the office today for initial evaluation approximately 1 month history of facial pressure, postnasal drip, sore throat, cough. Patient notes associated chills, though no complaints of fever, sweats, rash, chest pain/shortness of breath. Patient is a non-smoker, noting having several grandkids over over the last couple of months who she states has been sick with coughs and sore throats as well. No jvsy-krz-iwzmiwt products have been tried to assist with symptoms. No other associated symptoms and no other alleviating or aggravating factors ROS Const Constitutional: No other (ROS negative x10 other than as noted above) Exam Const General: cooperative, healthy appearing, no acute distress, uncomfortable Orientation: alert, awake, oriented x3 HENMT Head: normal to inspection Ears: hearing grossly normal bilaterally, external ears normal, TM's normal bilaterally, EAC's normal Nose: external nose normal, nares normal, septum normal, no nasal discharge Face and sinus: normal facial exam, face symmetric, sinus tenderness frontal and ethmoid Mouth: oral mucosae normal, lip normal, tongue normal Teeth and gingiva: gingiva normal, dentition normal Throat: uvula midline, tonsils normal, posterior oropharynx normal, postnasal drainage (Scant purulent) Eyes General: appearance normal, both eyes and all related structures Neck Neck: normal visual inspection, full ROM, no lymphadenopathy, no meningeal signs, supple Neck mass: No Thyroid: thyroid normal Lymphatic: no lymphadenopathy noted Chest Chest palpation AND inspection: normal inspection of the chest Resp Effort AND Inspection: normal respiratory effort, able to speak in complete sentences Auscultation: Bilateral: Clear to Auscultation Cardio Palpation: normal PMI Rate: regular rate Rhythm: regular rhythm Heart Sounds: S1 normal, S2 normal, no gallops, no murmurs, no rubs Pulses: radial pulses present GI Inspection: normal to inspection Palpation: soft, no hepatosplenomegaly Skin General: no rashes or lesions noted Neuro General: alert, awake, oriented x3, gait normal Cognition: normal cognition Speech: speech normal Gait: normal gait Motor: muscle tone normal throughout Sensory Exam: no sensory deficits noted Psych Appearance: grossly normal Mental Status: mental status grossly normal Mood: congruent mood Affect: normal affect Speech and Movement: speech and movement normal Attitude: cooperative Thought Process: normal Thought Content: normal Judgment: judgment good Assessment AND Plan Problems 1. Sinusitis J32.9 Plan 11-day course of azithromycin as prescribed today. Clear fluids, rest, Tylenol, warm facial compresses as needed as instructed today. Follow-up with PCP in 3-5 days should symptoms not improved, sooner should symptoms worsen or any other concerns develop. Patient states acknowledging understanding all the above. This note was generated with [employer] dictation software. It may contain incorrect words, spelling, and punctuation that were not noted in checking the note before signing. Medications New: azithromycin 2 tablets today, then 1 tablet daily on days 2250 mg PO QDAY 12 tabs 0RF through 11 Coding Level of Care Code Off vis,est,level 3 Diagnoses Sinusitis J32.9 05/16/18 1311 <Electronically signed by Jorge ESCOBAR> Date Jorge ESCOBAR Cosigner Signature: Date (if applicable) CC: CBC W/DIFF, AUTOMATED Collected: 11/30/2017 Status: F Source: [place] 4:30 PM [facility] REPOSIT[facility] TYPE CODE TESTS RESULT OUT OF RANGE REFERENCE UNITS LAB L100.1000 4.4-11.0 K/mm3 Normal WBC 7.6 LAB L100.1200 4.2-5.4 M/mm3 Normal RBC 4.46 LAB L100.1300 12.0-15.0 g/dl Normal HGB 12.8 LAB L100.1400 37-47 % Normal HCT 41.2 LAB L100.1500 81-99 fL Normal MCV 92.4 LAB L100.1600 27.0-32.0 pg Normal MCH 28.7 LAB L100.1700 32-36 g/gl Low MCHC 31.1 LAB L100.1810 11.6-14.6 % Normal RDW CV 13.5 LAB L100.1820 35.1-43.9 fl High RDW SD 44.5 LAB L100.1900 150-450 K/mm3 Normal PLT 291 LAB L100.2000 6.2-12.0 fl Normal MPV 11.6 LAB L100.2100 47-70 % Low NEUT% 42.9 LAB L100.2200 19-41 % Normal LY% 38.9 LAB L100.2300 0-10 % High MONO% 15.3 LAB L100.2400 0-5 % Normal EO% 2.4 LAB L100.2500 0-1 % Normal BASO% 0.4 LAB L100.2550 0.0-0.9 % Normal IM GRAN % 0.100 Result Comment: IG% - Immature Granulocytes (promyelocytes, myelocytes and metamyelocytes) > 1% indicates that a LEFT SHIFT is Present. LAB L100.2620 2.0-7.7 X10 3/uL Normal Absolute Neut 3.3 LAB L100.2720 0.83-4.51 X10 3/ul Normal Absolute Lymph 2.96 Performed By: #### L100.0100 #### [facility] [address] [place], [address] COMPREHENSIVE METABOLIC Collected: 11/30/2017 Status: F Source: [place] [facility] 4:30 PM [facility] REPOSIT[facility] TYPE CODE TESTS RESULT OUT OF RANGE REFERENCE UNITS LAB L501.0100 74-106 mg/dL Normal GLU 88 Result Comment: Please note revised GLUCOSE reference range effective 2017. LAB L501.1000 7-18 mg/dL Low BUN 5 LAB L501.1100 0.55-1.02 mg/dL Normal CREAT,SERUM 0.76 Result Comment: The validity of the calculated GFR AND GFRAA in patients over 70 years has not been determined. Clinical correlation is essential. LAB L501.1110 >60 mL/min Normal EST GFR 80 Result Comment: Non- GFR Calc LAB L501.1115 >60 mL/min Normal EST GFR - AA 97 Result Comment: GFR Calc LAB L501.1300 10-20 RATIO Low BUN/CRE 6.6 LAB L501.1500 6.4-8.2 g/dL High T PROT 8.4 LAB L501.1800 3.2-5.0 g/dL Normal ALB 3.8 LAB L501.1950 2.2-4.2 g/dL High GLOB 4.6 LAB L501.2000 0.9-2.4 RATIO Low A/G 0.8 LAB L501.2200 8.5-10.1 mg/dL Normal CA 8.9 LAB L501.4100 15-37 U/L Normal AST 22 LAB L501.4305 45-117 U/L High ALK P 161 LAB L501.4405 13-56 U/L Normal ALT 19 LAB L501.4600 0.20-1.00 mg/dL Normal T BILI 0.20 LAB L501.5300 136-145 mmol/L Normal NA 141 LAB L501.5600 3.5-5.1 mmol/L Normal K 3.6 LAB L501.5900 98-107 mmol/L Normal CL 103 LAB L501.6100 21.0-32.0 mmol/L Normal CO2 27.0 LAB L501.6200 5-15 Normal GAP 11 Performed By: #### L500.4050, L500.4100, L501.9520 #### [facility] [address] [place], [address] LIPID PROFILE Collected: 11/30/2017 Status: F Source: [place] 4:30 PM [facility] REPOSIT[facility] TYPE CODE TESTS RESULT OUT OF RANGE REFERENCE UNITS LAB L501.4900 200 mg/dL Normal CHOL 169 Result Comment: <200 mg/dL Desirable 200-240 mg/dL Borderline >240 mg/dL High Risk LAB L501.5000 mg/dL High TRIG 234 Result Comment: The drugs N-Acetylcysteine and Metamizole may falsely depress this assay. Serum Triglycerides Reference Interval Normal <150 mg/dL Borderline high 150 - 199 mg/dL High 200 - 499 mg/dL Very High > or = 500 mg/dL LAB L501.6400 mg/dL Normal HDL 48 Result Comment: The drugs N-Acetylcysteine and Metamizole may falsely depress this assay. Reference Range HDL <40 mg/dL Low HDL Cholesterol HDL >or= 60 mg/dL High HDL Cholesterol LAB L501.6500 0-130 mg/dL Normal LDL 74 LAB L501.6600 5-40 mg/dL High VLDL 47 Performed By: #### L500.4050, L500.4100, L501.9520 #### [facility] [address] [place], [place], [id number] THYROID STIM HORMONE Collected: 11/30/2017 Status: F Source: [place] (TSH) 4:30 PM [facility]POS[facility] TYPE CODE TESTS RESULT OUT OF RANGE REFERENCE UNITS LAB L501.9520 0.358-3.74 uIU/mL Normal TSH 1.40 Performed By: #### L500.4050, L500.4100, L501.9520 #### [facility] [address] [place], [address] VITAMIN D,25 HYDROXY Collected: 11/30/2017 Status: F Source: [place] 4:30 PM [facility] TYPE CODE TESTS RESULT OUT OF RANGE REFERENCE UNITS LAB L506.1000 29.95-100.01 ng/mL Normal Vitamin D 33.2 25-OH Result Comment: Vitamin D 25(OH) Status Range Deficiency <20 ng/mL (50nmol/L) Insuffciency 20 - 30 ng/mL (50 - 75 nmol/L) Sufficiency 30 - 100 ng/mL (75 - 250 nmol/L) Toxicity >100 ng/mL (>250 nmol/L) Performed By: #### L506.1000 #### [facility] [address] [facility] [place], [address] HEPATITIS C ANTIBODIES Collected: 11/30/2017 Status: F Source: [place] 4:30 PM [facility] TYPE CODE TESTS RESULT OUT OF RANGE REFERENCE UNITS LAB L3100.0650 0.0-0.9 s/co ratio Normal HEP C AB 0.1 Result Comment: Negative: < 0.8 Indeterminate: 0.8 - 0.9 Positive: > 0.9 The CDC recommends that a positive HCV antibody result be followed up with a HCV Nucleic Acid Amplification test (228897). Performed at: - [facility] [id number] [employer] Operator: Rajat Miller PhD, Phone: [phone] Performed By: #### L3100.0625 #### [facility] (refer to report for specific site) refer to report for address and phone number DOWNTIME REPORT Observed: 11/08/2017 Status: F Source: [place] 1:25 PM [facility] RE[facility]IT[facility] Medical Records Department [address] [place] [address] Downtime Report MR#: [id number] Acct: [id number] Name: DANDRE PERAZA Rep #: [id number] : 1950 67 From: Rajan Zhang MD PCP: [facility] SHAH,Raji Mckinney Status: DIS IN This patient was seen during an EMR downtime October 23, 2017 - October 30, 2017. This patient may have a combination of paper and electronic documentation or all paper documentation. All documentation is viewable within the e-chart portion of [employer] for each patient visit. KNEE 1 OR 2 VIEWS Observed: 10/26/2017 Status: F Source: JOVANNA 2:11 PM [facility] Imaging Services [address] [place] [address] Knee 1 or 2 Views MR#: [id number] Acct: [id number] Name: DANDRE PERAZA Rep #: [id number] : 1950 F 67 From: Wilmer Lemon DO PCP: Montez SHAH,Raji Mckinney Status: DIS IN Study: Knee 1 or 2 Views Date of Exam: 10/24/17 Exam# [id number] Ordering Dr: Jorge Frances MD STUDY: X-RAY - LEFT KNEE REASON FOR EXAM: Female, 67 years old. Postop TECHNIQUE: 2 view(s) of the knee. COMPARISON: April 17, 2017 FINDINGS: Status post left total knee replacement. The hardware components are well aligned. Postsurgical changes in the adjacent soft tissue. Skin aleyda anteriorly.. RAD/Knee 1 or 2 Views IMPRESSION: Status post total left knee replacement with postsurgical changes. Electronically Signed: Wilmer Lemon DO at 21:24 EDT Tel [phone], Service support , CC: Jorge Frances MD; Raji Blue MD [employer]fuels Plant Manager: Signed CBC-COMPLETE BLOOD CNT Collected: 10/26/2017 Status: F Source: JOVANNA NO DIFF 5:55 AM [facility] Order Comment: RESULT(S) PREVIOUSLY REPORTED ON MANUAL REQUISITION DURING DOWNTIME. TYPE CODE TESTS RESULT OUT OF RANGE REFERENCE UNITS LAB L100.1000 4.4-11.0 K/mm3 Normal WBC 10.5 LAB L100.1200 4.2-5.4 M/mm3 Low RBC 3.62 LAB L100.1300 12.0-15.0 g/dl Low HGB 10.4 LAB L100.1400 37-47 % Low HCT 33.5 LAB L100.1500 81-99 fL Normal MCV 92.5 LAB L100.1600 27.0-32.0 pg Normal MCH 28.7 LAB L100.1700 32-36 g/gl Low MCHC 31.0 LAB L100.1810 11.6-14.6 % Normal RDW CV 13.2 LAB L100.1820 35.1-43.9 fl High RDW SD 44.9 LAB L100.1900 150-450 K/mm3 Normal PLT 226 LAB L100.2000 6.2-12.0 fl Normal MPV 11.4 Performed By: #### L100.0500 #### [facility] [address] [place], [place], [id number] CBC-COMPLETE BLOOD CNT Collected: 10/25/2017 Status: F Source: JOVANNA NO DIFF 6:00 AM [facility] Order Comment: RESULT(S) PREVIOUSLY REPORTED ON MANUAL REQUISITION DURING DOWNTIME. TYPE CODE TESTS RESULT OUT OF RANGE REFERENCE UNITS LAB L100.1000 4.4-11.0 K/mm3 High WBC 13.6 LAB L100.1200 4.2-5.4 M/mm3 Low RBC 3.87 LAB L100.1300 12.0-15.0 g/dl Low HGB 11.0 LAB L100.1400 37-47 % Low HCT 35.4 LAB L100.1500 81-99 fL Normal MCV 91.5 LAB L100.1600 27.0-32.0 pg Normal MCH 28.4 LAB L100.1700 32-36 g/gl Low MCHC 31.1 LAB L100.1810 11.6-14.6 % Normal RDW CV 12.9 LAB L100.1820 35.1-43.9 fl Normal RDW SD 43.1 LAB L100.1900 150-450 K/mm3 Normal PLT 256 LAB L100.2000 6.2-12.0 fl Normal MPV 11.5 Performed By: #### L100.0500 #### [facility] [address] [place], [place], [id number] BASIC METABOLIC Collected: 10/25/2017 Status: F Source: JOVANNA PROFILE (BMP) 12:00 AM [facility] Order Comment: RESULT(S) PREVIOUSLY REPORTED ON MANUAL REQUISITION DURING DOWNTIME. TYPE CODE TESTS RESULT OUT OF RANGE REFERENCE UNITS LAB L501.0100 74-106 mg/dL High GLU 122 Result Comment: Fasting Glucose result from 100 to 125 mg/dL suggests IMPAIRED HOMEOSTASIS per A.D.A. criteria. Please note revised GLUCOSE reference range effective 2017. LAB L501.1000 7-18 mg/dL Normal BUN 11 LAB L501.1100 0.55-1.02 mg/dL Normal CREAT,SERUM 0.84 Result Comment: The validity of the calculated GFR AND GFRAA in patients over 70 years has not been determined. Clinical correlation is essential. LAB L501.1110 >60 mL/min EST GFR Normal 71 LAB L501.1115 >60 mL/min EST GFR Normal - AA 86 LAB L501.1255 ml/min Normal Estimated CRCL 56.88 LAB L501.1300 10-20 RATIO BUN/CRE Normal 13.1 LAB L501.2200 8.5-10.1 mg/dL Low CA 8.3 LAB L501.5300 136-145 mmol/L NA Normal 142 LAB L501.5600 3.5-5.1 mmol/L K Normal 4.2 LAB L501.5900 98-107 mmol/L CL Normal 106 LAB L501.6100 21.0-32.0 mmol/L CO2 Normal 26.0 LAB L501.6200 5-15 GAP Normal 10 Performed By: #### L500.2500 #### [facility] [address] [facility] [place], [address] ABD INC DECUB Observed: 10/17/2017 Status: F Source: JOVANNA AND/OR ERECT 5:01 PM [facility] Imaging Services [address] [place] [address] Abd Inc Decub and/or Erect MR#: [id number] Acct: [id number] Name: DANDRE PERAZA Rep #: [id number] : 1950 F 67 From: Karon De La Vega MD PCP: Raji Blue MD, Chi Status: REG CLI Study: Abd Inc Decub and/or Erect Date of Exam: 10/17/17 Exam# [id number] Ordering Dr: Raji Blue MD STUDY: X-RAY - ABDOMEN/PELVIS REASON FOR EXAM: Female, 67 years old. Constipation, pain TECHNIQUE: AP supine and upright views of the abdomen and pelvis. COMPARISON: CT scan of the abdomen and pelvis December 04, 2014 FINDINGS: Normal visualized lung bases. There is a relative decompressed appearance of the colon with a minimal amount of stool within the descending colon. There is no demonstrated free abdominal air. The visualized liver, spleen and kidneys are grossly normal in size and morphology. There are tubal ligation clips present. Normal soft tissue structures. There are diffuse degenerative changes of the visualized lumbar spine. RAD/Abd Inc Decub and/or Erect IMPRESSION: Minimal stool burden. Nonspecific bowel gas pattern. Electronically Signed: Karon De La Vega MD at 17:32 EDT Tel , Service support , CC: Raji Blue MD [employer] Plant Manager: Signed 12 LEAD ELECTROCARDIOGRAM Observed: 10/17/2017 Status: F Source: [place] 3:59 PM [facility] Cardiovascular Services [address] [place] [address] 12 Lead EKG 10/13/17 0749 MR#: [id number] Acct: [id number] Name: DANDRE PERAZA Rep #: [id number] : 1950 67 From: Santana Rodriguez MD Attending Dr: Jorge Frances MD Status: PRE IN Ordering Dr: Jorge Frances MD Date: 10/13/17 Location: [facility] [place] Sex: F C Admitted: Test Reason : Blood Pressure : / mmHG Vent. Rate : 072 BPM Atrial Rate : 072 BPM P-R Int : 138 ms QRS Dur : 082 ms QT Int : 394 ms P-R-T Axes : -10 -05 008 degrees QTc Int : 431 ms Normal sinus rhythm Possible Inferior infarct , age undetermined Abnormal ECG Confirmed by JENNIFER SHAH, SANTANA ([id number]), editor book CALIXTO ZHANG ([id number]) on 10/17/2017 3:58:49 PM Referred By: EMLQUIADES Confirmed By:SANTANA RODRIGUEZ MD 10/17/17 1558 Date Santana Rodriguez MD CC: Jorge Frances MD; Rjai Blue MD Signed CBC W/DIFF, AUTOMATED Collected: 10/13/2017 Status: F Source: JOVANNA 9:00 AM [facility] TYPE CODE TESTS RESULT OUT OF RANGE REFERENCE UNITS LAB L100.1000 4.4-11.0 K/mm3 Normal WBC 6.5 LAB L100.1200 4.2-5.4 M/mm3 Normal RBC 4.47 LAB L100.1300 12.0-15.0 g/dl Normal HGB 12.7 LAB L100.1400 37-47 % Normal HCT 40.7 LAB L100.1500 81-99 fL Normal MCV 91.1 LAB L100.1600 27.0-32.0 pg Normal MCH 28.4 LAB L100.1700 32-36 g/gl Low MCHC 31.2 LAB L100.1810 11.6-14.6 % Normal RDW CV 12.7 LAB L100.1820 35.1-43.9 fl Normal RDW SD 42.1 LAB L100.1900 150-450 K/mm3 Normal PLT 258 LAB L100.2000 6.2-12.0 fl Normal MPV 11.0 LAB L100.2100 47-70 % Low NEUT% 42.0 LAB L100.2200 19-41 % Normal LY% 36.2 LAB L100.2300 0-10 % High MONO% 17.9 LAB L100.2400 0-5 % Normal EO% 3.4 LAB L100.2500 0-1 % Normal BASO% 0.5 LAB L100.2550 0.0-0.9 % Normal IM GRAN % 0.000 Result Comment: IG% - Immature Granulocytes (promyelocytes, myelocytes and metamyelocytes) > 1% indicates that a LEFT SHIFT is Present. LAB L100.2620 2.0-7.7 X10 3/uL Normal Absolute Neut 2.7 LAB L100.2720 0.83-4.51 X10 3/ul Normal Absolute Lymph 2.34 Performed By: #### L100.0100 #### [facility] [address] [facility], [address] BASIC METABOLIC Collected: 10/13/2017 Status: F Source: JOVANNA PROFILE (BMP) 9:00 AM [facility] TYPE CODE TESTS RESULT OUT OF RANGE REFERENCE UNITS LAB L501.0100 74-106 mg/dL Normal GLU 88 Result Comment: Please note revised GLUCOSE reference range effective 2017. LAB L501.1000 7-18 mg/dL Normal BUN 7 LAB L501.1100 0.55-1.02 mg/dL Normal CREAT,SERUM 0.79 Result Comment: The validity of the calculated GFR AND GFRAA in patients over 70 years has not been determined. Clinical correlation is essential. LAB L501.1110 >60 mL/min Normal EST GFR 77 Result Comment: Non- GFR Calc LAB L501.1115 >60 mL/min Normal EST GFR - AA 93 Result Comment: GFR Calc LAB L501.1255 ml/min Normal Estimated CRCL 47.78 LAB L501.1300 10-20 RATIO Low BUN/CRE 8.9 LAB L501.2200 8.5-10 mg/dL Normal .1 CA 8.8 LAB L501.5300 136-14 mmol/L Normal 5 NA 140 LAB L501.5600 3.5-5. mmol/L Normal 1 K 3.8 LAB L501.5900 98-107 mmol/L Normal CL 106 LAB L501.6100 21.0-3 mmol/L Normal 2.0 CO2 27.0 LAB L501.6200 5-15 Normal GAP 7 Performed By: #### L500.2500, L501.9520 #### [facility] [address] [facility] [place], [place], [address] THYROID STIM HORMONE Collected: 10/13/2017 Status: F Source: JOVANNA (TSH) 9:00 AM [facility] TYPE CODE TESTS RESULT OUT OF RANGE REFERENCE UNITS LAB L501.9520 0.358-3.74 uIU/mL Normal TSH 2.64 Performed By: #### L500.2500, L501.9520 #### [facility] [address] [place], [address] Observed: 10/13/2017 Status: F Source: [place] MRSA/SAID SCREEN 8:30 AM [facility] MRSA/SAID SCRN S. AUREUS S. aureus Negative MRSA MRSA Negative Performed By: #### M100.651 #### [facility] [address] [place], [address] EMERGENCY DEPARTMENT Observed: 08/24/2017 Status: F Source: [place] SUMMARY 8:21 AM [facility] Medical Records Department [address] [facility] [place] [address] Emergency Department Summary 08/19/172031 MR#: [id number] Acct: [id number] Name: DANDRE PERAZA Rep #: [id number] : 1950 67 From: Guilherme Todd DO [facility] Status: [facility]P ER - ER Visit Summary Date of Service: 08/19/17 Chief Complaint: Eye cold History of Present Illness: The patient is a 67 F who states that she has had a cold for the past week. When asked what symptoms she is having she states her eyes have been watery. She denies any cough runny nose sore throat earache or any other typical eye cold symptoms. Today she noticed bilateral eye exudates. She notes her eyes are red and continue to water. Clear rhinorrhea for years. No purulence. Since wears glasses but no contacts. She denies any visual changes. Physical Examination: Afebrile vital signs are stable Gen: Well-nourished well-developed Head: Normocephalic atraumatic Eyes: Perrl EOMI patient has bilateral conjunctival swelling and injection. There is exudate diffusely and on the lashes. ENT: TMs clear no rhinorrhea moist mucous membranes Neck: Supple no lymphadenopathy no JVD nontender CVS: Regular rate rhythm no murmurs normal S1-S2 Respiratory: No distress clear to auscultation bilaterally chest nontender Abdomen: Soft nontender nondistended normal bowel sounds no masses Back: Nontender Extremity: Nontender no edema Skin: Normal color no rash Neuro: alert orientated 3 CN II-XII intact normal strength sensation reflexes gait cerebellar Psych: Normal affect normal mood Emergency Department Course and Treatment: Was treated with gentamicin ophthalmic drops. She will continue treatment at home. Return if worsening follow- up as needed. Impression: 1. Bilateral conjunctivitis This note was generated with [employer] dictation software. It may contain incorrect words, spelling, and punctuation that were not noted in review of the chart prior to signing ED Disposition - Plan for ED Patient: Disposition: Home or Assisted Living Chief Complaint: Eye Problem Instructions: ED Conjunctivitis Bacterial Prescriptions: Gentamicin Ophthalmic Drops [Garamycin Ophthalmic Drops] 2 drp EACH EYE Q4 7 Days #1 opth.btl Referrals: Raji Blue Chi, MD [Primary Care Provider] - 3-5 Days if not improving What to do if you have Problems For any increased pain, shortness of breath, bleeding, nausea or vomiting, chest pain, or any unexpected problems, contact your Primary Care Provider. Call [facility] ([phone]) or report to the closest Emergency Room. Call 911 if necessary. 08/24/17820 <Electronically signed by Guilherme Todd DO> Date Guilherme Todd DO Cosigner Signature (If Indicated): Date CC: Raji Blue MD OT D/C SUMMARY Observed: 08/09/2017 Status: F Source: [place] 11:38 AM [facility] [address] [place] [address]. [address] [place] [address] Fax REHABILITATION SERVICES DISCHARGE SUMMARY MR#: [id number] Acct: [id number] Name: DANDRE PERAZA Rep #: [id number] : 1950 66 From: Georgette BEST CHT Referring DrJaylin: Nae Pan DO Status: REG RCR Eval Date: Discharge Date: HP - OT D/C Summary It has been my pleasure to treat DANDRE LEAJUNOJOSE under orders from Nae Pan DO, for the diagnosis of right trigger finger D3 and D4 for a total of 3 visit(s). Please see the following information for a summary of their discharge status. - Objective Objective/Function: pt demo the ability to form a composite fist- pt reports she has difficutly with opening jars/lids- pt states she has her do this for now - Goals Patient Goals: Regain Mobility, Regain Strength, Decrease Swelling/Stiffness, Use Hand/Wrist/Arm Normally Again, Increase ROM, Be More Independent in ADLS Goal:: pt will demo a increase in right protection officer strength to 35# or greater to retun pt to PLOF with BADLs and IADs. Goal:: Pt will demo a increase in the ability to form a composite fist to peform BADls and IADLS ind. Goal:: pt will report ind. with all home mtg tasks with no limited ROM or weakness preventing pt from performing her tasks by d/c - Plan Plan: pt to cont with HEP PRE- - D/C Information If there are questions or concerns regarding this patient's occupational therapy, please fell free to call me at [phone]. Thank you for the referral of this patient. Sincerely, ESTEPHANIA Loco CHT <Electronically signed by Georgette BEST CHT> 08/09/17 1138 CC: Nae Pan DO; Raji Blue MD MK Signed PT D/C SUMMARY (1) Observed: 07/25/2017 Status: F Source: [place] 5:55 PM [facility] [address] [place] [address] Fax REHABILITATION SERVICES DISCHARGE SUMMARY MR#: [id number] Acct: [id number] Name: DANDRE PERAZA Rep #: [id number] : 1950 66 From: Dunia DOMINGO Referring Dr.: Nae Pan DO Status: REG RCR Insurance: [employer] MEDICARE PPO HP - PT D/C Summary It has been my pleasure to treat DANDRE PERAZA under orders from Nae Pan DO, for the diagnosis of OA L knee for a total of 5 visit(s). Discharge Date: 06/07/17 Please see the following information for a summary of their discharge status. - Subjective Subjective: Pt says that somedays her knees just hurt. Pt wants to keep doing the exercises at home...she can not afford her co-pay. - Pain L knee pain Pain Intensity (Out of 10): 3 - Overall Improvement % Improvement: 50 - Objective Objective/Function: L knee -3 degrees to 127 degrees knee flexion - Goals Goal 1:: I HEP Goal Progress: Goal Met Goal 2:: Increase L knee AROM -1 degrees to 135 degrees L knee flexion Goal Progress: Progressing Goal 3:: Decrease pain to 2/10 with ADL's and stairs Goal Progress: Progressing Goal 4:: Increase R hip extension and B hip extension strength to 4/5 Goal Progress: Progressing - Plan Plan: DC PT to HEP - D/C Information Discharge Comments: DC PT to HEP per pt request If there are questions or concerns regarding this patient's physical therapy, please feel free to call me at [phone]. Thank you for the referral of this patient. Sincerely, Dunia Gardiner <Electronically signed by Dunia DOMINGO> 07/25/17 8816 CC: Nae Pan DO; Raji Blue MD Signed OT GENERAL EVALUATION Observed: 04/20/2017 Status: F Source: [place] 4:01 PM [facility] [place] [address] [facility] [place] [address] Fax REHABILITATION SERVICES INITIAL EVALUATION MR#: [id number] Acct: [id number] Name: DANDRE PERAZA Rep #: [id number] : 1950 66 From: Georgette Stockton OTR/L, CHT Referring Dr.: Nae Pan DO Status: REG RCR Insurance: [employer] MEDICARE PPO Eval Date: Patient's Visit Information DANDRE PERAZA is a 66 year old F, referred to Occupational Therapy by Nae Pan DO,, with a diagnosis of right trigger finger D3 and D4. Date of Evaluation: 04/20/17 Occupational Therapist: Georgette Stockton, OTR/Rob, CHT - Subjective Subjective: pt states she was having trouble with right 3rd and 4th digit triggering- pt states she had a number of cortizone shots but after 2-3 trials her triggering cont. to get worse- pt is s/p right 3rd/and 4th trigger finger release on Mar.29. pt states limited ROM and strength are preventing her form perform her BADLS and IADLs ind. - Objective Objective/Observation: pt demo with limited composite fist and right protection officer strength increasing pts need for assistance with home mtg and BADL tasks. - ROM MP: right MF 75 right RF 75 left MF 85 left RF 80 PIP: right MF 70 right RF 85 left MF 90 left RF 95 DIP: right MF 65 right RF 35 left MF65 left RF 50 - Strength Plasterer Apprentice: right 22# left 30# Lateral Pinch: right 10# left 6# Tripod Pinch: right 2# left 2# - DASH-Disabilities of Arm, Shoulder AND Hand DASH Sum: 77 - Goals Goal:: pt will demo a increase in right protection officer strength to 35# or greater to retun pt to PLOF with BADLs and IADs. Goal:: Pt will demo a increase in the ability to form a composite fist to peform BADls and IADLS ind. Goal:: pt will report ind. with all home mtg tasks with no limited ROM or weakness preventing pt from performing her tasks by d/c - Rehabilitation General Assessment: pt S/P right trigger finger release of D3 and D4 Rehabilitation Potential: Excellent - Anticipated Interventions Anticipated Interventions: Strengthening, Scar Care, Triggerpoint Release, Modalities, Joint Protection/Energy Conservation - Visit Plan Frequency: 1-2x /Week Duration: 3 Weeks General Plan: pt will initiate BTE to increase pts functional strength, cont with scar and ROM to return pt to PLOF TEXT: Thank you for the opportunity to evaluate your patient. For Medicare and Medicare HMO plans, please review the plan of care and approve it. It will need to be FAXED BACK to us at [phone] for Medicare purposes. Please let me know if there are questions or concerns regarding this plan of care. Physician Signature: Date: <Electronically signed by Georgette BEST CHT> 04/20/17 1601 CC: Nae Pan DO; Raji Blue MD MK Signed For Medicare only, by signing this I certify the plan of care. Physicians Signature Date ALLERGIES ALLERGIES DATE TYPE / CODE NAME / CODE REACTION SEVERITY SOURCE 10/13/2017 Drug histamine Unknown Unknown Jovanna [facility] Allergy/416 phosphate/Y61960 Hospital 474854(SNOM 3366(RXNORM) Repository ED CT) ENCOUNTERS ENCOUNTERS ADMIT/DISCHARGE ACCOUNT ADMITTING ENCOUNTER LOCATION SOURCE NUMBER CLASS 06/15/2018 [id number] Ambulatory [place] [facility] 1 [facility] ing:PSN Repository 06/06/2018 [id number] Ambulatory [place] 9 [facility] ing:POLAB3 Repository 06/01/2018 [id number] Ambulatory [place] 4 [facility] ing:OPBI Repository 05/23/2018 [id number] Ambulatory [place] J[place]anna 8 [facility] ing:PSN Repository 05/16/2018 [id number] Ambulatory [place] 4 [facility] ing:LABSPEC Repository 05/16/2018/ [id number] Ambulatory BMSBuilding:B [place] [address] [facility] Repository 11/30/2017 [id number] Ambulatory [place] Jovanna 6 [facility] ing:POLAB3 Repository 10/24/2017/ [id number] [place], Inpatient [place] 8 2 Jorge Encounter [facility] ing:YP7Sizi: Repository JM868Kmt: 1 10/24/2017/ [id number] Ambulatory BMSBuilding:W [place] 8 2 [facility] Repository 10/24/2017/ [id number] Ambulatory BMSBuilding:W [place] 8 3 [facility] Repository 10/17/2017 [id number] Ambulatory [place] 1 [facility] ing:RAD Repository 10/13/2017/ [id number] Ambulatory BMSBuilding:W [place] 8 9 [facility] Repository 08/19/2017/ [id number] Emergency [place] 8 7 [facility] ing:ED Repository 06/07/2017/ [id number] Ambulatory [place] 8 8 [facility] ing:PT Repository PAYERS PAYERS ENCOUNTER GUARANTOR PAYER SUBSCRIBER SOURCE 06/15/2018 DANDRE Vargas Primary DANDRE K [place] [id number] Insurance:[facility] [address] MEDICARE PPOPolicy B: [id number]: Repository [id number]: 330 [id number] [phone] () Date:6447-20-09Wq [address] [place] [address]MV: 06/15/2018 Secondary NOT GIVENUNK [place] Insurance:SELF PAY [facility] Number: Effective Repository Date:2018-06-15 06/06/2018 CIPRIANO Mart Primary DANDRE Vargas [place] [id number] Insurance:[facility] [address] MEDICARE PPOPolicy B: [id number] Number: Repository [id number]: 330 [id number] [phone] () Date:7918-14-86Pl [address] [place] [address]HM: 06/06/2018 Secondary NOT GIVENUNK [place] Insurance:SELF PAY [facility] Number: Effective Repository Date:2018-06-06 06/01/2018 CIPRIANO Mart Primary DANDRE Nug[place] [id number] Insurance[facility] [address] MEDICARE PPOPolicy B: [id number] Number: Repository [address]Laq: 330 [id number] [phone] (HP) Date:2604-45-75Kx [address] [address]XW: 06/01/2018 Secondary NOT GIVENUNK [place] Insurance:SELF PAY [facility] Number: Effective Repository Date:2018-02-15 05/23/2018 CIPRIANO Mart Primary DANDRE [place] [id number] Insurance:[facility] [address] MEDICARE PPOPolicy B: [id number] Number: Repository [id number]: 330 [id number] [phone] (HP) Date:9879-21-60Ae [address] [address]WT: 05/23/2018 Secondary NOT GIVENUNK [place] Insurance:SELF PAY [facility] Number: Effective Repository Date:2018-05-23 05/16/2018 CIPRIANO Mart Primary DANDRE Nugent [id number] Insurance:[facility] [address] MEDICARE PPOPolicy B: [id number] Number: Repository [address]Skf: 330 [id number] [phone] (HP) Date:7948-25-70Xj [address] [address]VO: 05/16/2018 Secondary NOT GIVENUNK [place] Insurance:SELF PAY [facility] Number: Effective Repository Date:2018-05-16 05/16/2018 CIPRIANO Mart Primary DANDRE Condeoster [id number] Insurance:[facility] [address] MEDICARE PPOPolicy B: [id number] [place] Number: Repository [id number]: (330 [id number] [phone] (HP) Date:1531-69-47Iw [address] [address]XC: 05/16/2018 Secondary NOT GIVENUNK [place] Insurance:SELF PAY [facility] Number: Effective Repository Date:2018-05-16 11/30/2017 CIPRIANO Mart Primary DANDRE Vargas [place] [id number] Insurance[facility] [address] MEDICARE PPOPolicy B: [id number] Psychiatric Center [place] Number: Repository [id number]: ([phone] [id number] [phone] (HP) Date:9831-38-15Np [address] [address]KK: 11/30/2017 Secondary NOT GIVENUNK Jovanna Insurance:SELF PAY [facility] Number: Effective Repository Date:2017-11-30 10/24/2017 CIPRIANO Mart Primary DANDRE Vargas [place] [id number] Insurance:HUMANA [facility] [address] MEDICARE PPOPolicy B: [id number] [place] Number: Repository [id number]: ([phone] [id number] [phone] (HP) Date:4673-34-11Yc [address] [address]HZ: 10/24/2017 Secondary NOT GIVENUNK [place] Insurance:SELF PAY [facility] Number: Effective Repository Date:2017-10-11 10/24/2017 CIPRIANO Mart Primary DANDRE Vargas [place] [id number] Insurance:HUMANA [facility] [address] MEDICARE PPOPolicy B: [id number] Number: Repository [id number]: ([phone] [id number] [phone] (HP) Date:1764-93-77Zy [address] [address]FY: 10/24/2017 Secondary NOT GIVENUNK [place] Insurance:SELF PAY [facility] Number: Effective Repository Date:2017-10-24 10/24/2017 CIPRIANO Mart Primary DANDRE Nugent [id number] Insurance:[facility]MANA [facility] [address] MEDICARE PPOPolicy B: [id number], [place] Number: Repository [id number]: 330 [id number] [phone] (HP) Date:8992-44-25Fn [address]WP: 10/24/2017 Secondary NOT GIVENUNK [place] Insurance:SELF PAY [facility] Number: Effective Repository Date:2017-10-24 10/17/2017 CIPRIANO Mart Primary DANDRE Condeoster [id number] Insurance:[facility] [address] MEDICARE PPOPolicy B: [id number], [place] Number: Repository [id number]: ([phone] [id number] [phone] () Date:6936-75-23Yc [address] [address]FT: 10/17/2017 Secondary NOT GIVENUNK [place] Insurance:SELF PAY [facility] Number: Effective Repository Date:2017-10-17 10/13/2017 CIPRAINO Mart Primary DANDRE Condeoster [id number] Insurance[facility] [address] MEDICARE PPOPolicy B: [id number], [place] Number: Repository [id number]: 330 [id number] [phone] (HP) Date:6937-21-83Up [address] [address]GT: 10/13/2017 Secondary NOT GIVENUNK Jovanna Insurance:SELF PAY [facility] Number: Effective Repository Date:2017-10-13 08/19/2017 CIPRIANO Mart Primary DANDRE Condeoster [id number] Insurance:[facility] [address] MEDICARE PPOPolicy B: [id number], [place] Number: Repository [id number]: 330 [id number] [phone] () Date:4177-00-55Ez [address] [address]WC: 08/19/2017 Secondary NOT GIVENUNK Jovanna Insurance:SELF PAY [facility] Number: Effective Repository Date:2017-08-19 06/07/2017 Cipriano Mart Primary DANDRE K Jovanna [id number] Insurance:HUMANA MAAME [facility] [address] MEDICARE PPOPolicy B: [id number] Number: Repository [id number]: 330 [id number] [phone] () Date:0384-39-90By [address] [address]QF: 06/07/2017 Secondary NOT GIVENUNK [place] Insurance:SELF PAY [facility] Number: Effective Repository Date:2017-04-11
== END ==
PROVIDERS: Family Provider Family Medicine Geriatric Medicine; PCP Family Medicine Geriatric Medicine; Visit Provider Family Medicine Geriatric Medicine
DX: E55.9 Vitamin D deficiency, unspecified (principal); E78.49 Other hyperlipidemia; I10 Essential (primary) hypertension
CPT/HCPCS: 36415; 80053; 80061; 82306; 84443; 85025

== ENCOUNTER → 2018-06-15 11:05 | Outpatient (CLI) | payer MEDICARE, SELFPAY ==
[2018-05-16 13:11] VITALS: BMI 32.0
== END ==
PROVIDERS: Family Provider Family Medicine Geriatric Medicine; PCP Family Medicine Geriatric Medicine; Referring Provider Family Medicine Geriatric Medicine; Visit Provider Family Medicine Geriatric Medicine
DX: N39.0 Urinary tract infection, site not specified (principal); R68.83 Chills (without fever)
CPT/HCPCS: 87086; 87088; 87633

== ENCOUNTER 2018-07-25 20:22 | Observation (INO) | payer MEDICARE, SELFPAY ==
[2018-05-16 13:11] VITALS: BMI 32.0
[2018-07-25 20:23] VITALS: BP 168/91; PULSE 99; RESP 20; TEMP 36.7; O2SAT 96; BMI 34.2
--- NOTE | 2018-07-25 20:58 | EKG12_ITS ---
Test Reason : CHEST PAIN Blood Pressure : / mmHG Vent. Rate : 098 BPM Atrial Rate : 098 BPM P-R Int : 150 ms QRS Dur : 082 ms QT Int : 332 ms P-R-T Axes : 020 -09 006 degrees QTc Int : 423 ms Normal sinus rhythm Inferior infarct , age undetermined Cannot rule out Anterior infarct , age undetermined Abnormal ECG Confirmed by ZAC SHAH, MARIAN ([id number]), editor continuity and script CALIXTO ZHANG ([id number]) on 07/31/2018 8:57:39 AM Referred By: ROSAURA Confirmed By:MARIAN FRANK MD
[2018-07-25 21:30] VITALS: BP 159/91; PULSE 100; RESP 22; O2SAT 94
--- NOTE | 2018-07-25 21:39 | ED.DCSUM_ITS ---
- ER Visit Summary Date of Service: 07/25/18 Chief Complaint: Chest pain History of Present Illness: The patient is a 67 F presenting with chest pain. Patient states this started around 7 PM. She had chest heaviness which was 10 out of 10. It radiated to her left side of her jaw. She denies shortness of breath. Denies nausea, vomiting, diaphoresis. She states the pain is now 0 out of 10. She took her 's nitro which improved her pain. She has a history of hypercholesterolemia and family history of heart disease. She is not a smoker. She denies PE/DVT risk factors. She has been having intermittent episodes of chest pain over the past month but worsened today. Physical Examination: Vitals are stable. Patient is afebrile. Alert no acute distress. HEENT exam is unremarkable. Neck is supple. Lungs are clear and equal bilaterally. Heart is regular rate and rhythm. Abdomen is soft nontender nondistended. Extremities are unremarkable. Skin is warm and dry. No focal neurologic deficit. Remainder of exam is unremarkable. Emergency Department Course and Treatment: EKG is sinus rate of 98. Patient was given aspirin. CBC, chemistries unremarkable. Troponin is negative. Chest x- ray shows no acute process. On reevaluation patient is chest pain-free. Discussed with the hospitalist for observation Disposition: Observation Impression: Chest pain This note was generated with [employer] dictation software. It may contain incorrect words, spelling, and punctuation that were not noted in review of the chart prior to signing ED Disposition - Plan for ED Patient: Referrals: Raji Herrmann Chi, MD [Primary Care Provider] -
--- NOTE | 2018-07-25 21:41 | RAD_ITS ---
STUDY: X-RAY CHEST REASON FOR EXAM: Female, 67 years old. Chest pain. TECHNIQUE: Single AP portable view of the chest. COMPARISON: June 19, 2018. FINDINGS: Telemetry wires overlie the chest. The lungs are clear and expanded. There is no demonstrated pleural abnormality. Normal size heart. Normal mediastinum and ankita. Normal visualized pulmonary arteries. Normal visualized aortic arch and descending thoracic aorta. The thoracic spine is obscured by the mediastinum. Normal visualized ribs, clavicles, and shoulders. There is no demonstrated abnormality of the visualized soft tissue structures of the upper abdomen. RAD/Chest 1 View (Portable) IMPRESSION: No acute cardiopulmonary disease or interval change. Electronically Signed: Bharathi Delarosa DO at 21:55 EST Tel [phone], Service support ,
[2018-07-25 21:44] LABS: Absolute Lymphocyte Count 3.78 X10^3/ul (0.83-4.51); Absolute Neutrophil Count 6.1 X10^3/uL (2.0-7.7); Basophil# 0.03 X10^3/uL; Basophil% 0.3 % (0-1); Differential Indicated SCAN CRITERIA MET; Eosinophil# 0.08 X10^3/uL; Eosinophils% 0.7 % (0-5); Hematocrit 42.6 % (37-47); Lymphocyte # 3.78 X10^3/ul (4.0); Lymphocyte % 32.6 % (19-41); Mean Corp Hgb Conc 30.5 g/gl (32-36); Mean Corpuscular Hgb 28.9 pg (27.0-32.0); Mean Corpuscular Volume 94.7 fL (81-99); Mean Platelet Vol. 10.5 fl (6.2-12.0); Monocyte# 1.62 X10^3/uL; Neutrophil # 6.05 X10^3/uL (2.7-7.7); Neutrophil % 52.1 % (47-70); POSITIVE COUNT NO; POSITIVE DIFFERENTIAL YES; POSITIVE MORPHOLOGY NO; Platelet Count 377 K/mm3 (150-450); RBC Distribution Width SD 48.3 fl (35.1-43.9); White Blood Count 11.6 K/mm3 (4.4-11.0)
[2018-07-25] MEDS: Aspirin 81 MG TAB.CHEW 324 MG PO (21:49)
[2018-07-25 21:56] LABS: Anion Gap 9 (5-15); BUN 9 mg/dL (7-18); BUN/Creat Ratio 9.7 RATIO (10-20); Calcium,Total 8.5 mg/dL (8.5-10.1); Chloride 104 mmol/L (98-107); Creatinine, Serum 0.93 mg/dL (0.55-1.02); EST Glomerular Filtration Rate 63 mL/min (>60); Est Glom Filt Rate - Afr Amer 77 mL/min (>60); Glucose 96 mg/dL (74-106); Potassium 3.7 mmol/L (3.5-5.1); Sodium Level 138 mmol/L (136-145)
[2018-07-25 22:00] VITALS: BP 145/100; PULSE 99; RESP 18; O2SAT 98
[2018-07-25 22:06] LABS: Differential Comment SCANNED
--- NOTE | 2018-07-25 23:05 | HP.PCM_ITS ---
Problem List (1) Chest pain Status: Acute History of Present Illness Date of Admission: 07/25/18 Chief Complaint: chest Pain The patient is a 67 year old F with a significant history of schizophrenia; depression; GERD and hypothyroidism who presented with 1 month history of intermittent chest pain. The last episode of her chest pain started a few hours before presentation to the emergency department. Her chest pain is substernal radiating to her right chest and to her bilateral jaw. She denies any associated nausea, vomiting or diaphoresis. Her recent chest pain started about an hour and a half after exercising and while she was cleaning. She denies any aggravating factor. She took 1 of her 's nitroglycerin which relieved her pain. At the emergency department her troponin was negative and her EKG was unremarkable. She reported that her father had congestive heart failure in his 80s. Her mother had congestive heart failure in her 70s. He had a brother who had an open heart surgery in his 40s. Past Medical History Past Medical History (Chronic Problems): Chronic Problems (Last Reviewed 07/26/18 @ 00:34 by Krishna Wan MD) Schizophrenia (Chronic) Hypothyroidism (Chronic) Colon polyps (Chronic) last colonscopy was [address] Ventura Weight loss, non-intentional (Chronic) 50-60 lbs over the past 6 months. Pt states she has no appetite Rheumatoid arthritis (Chronic) GERD (gastroesophageal reflux disease) (Chronic) Medical History: Medical History (Last Reviewed 07/26/18 @ 05:26 by Krishna Wan MD) Hemorrhoids K64.9 Thyroid disease E07.9 Allergies histamine phosphate [From Histatrol] Allergy (Verified 10/13/17 08:09) Unknown Home Medications: Ambulatory Orders Medication Instructions Recorded Levothyroxine [Synthroid] 88 mcg PO DAILY 08/21/13 Omeprazole [Prilosec] 40 mg PO DAILY 08/21/13 Paroxetine HCl [Paxil] 40 mg PO DAILY 03/22/17 Potassium 20 mg PO BID 03/22/17 Pravastatin [Pravachol] 40 mg PO QHS 03/22/17 Doxepin HCl 10 mg PO DAILY 07/25/18 traZODone [Desyrel] 50 mg PO QHS 07/25/18 Multivitamin with Minerals [Hair, 1 tab PO DAILY 07/26/18 Skin and Nails] Surgical History: Surgical History (Last Reviewed 07/26/18 @ 05:26 by Krishna Wan MD) History of knee replacement Z96.659 Surgical History: tonsillectomy, - - Tubal ligation, colon polyp removal via a colonoscope. 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 History: - - Patient states that the last time she was referred for a pelvic exam and Pap smear she was told by the physician that she was not a candidate for this because they could not do it but she does not know why Lives: With Family Smoking Status: Never smoker Alcohol: None - *Family History Maternal Family History: Family History (Last Reviewed 07/26/18 @ 05:26 by Krishna Wan MD) Other Heart disease Paternal Family History: Family History (Last Reviewed 07/26/18 @ 05:26 by Krishna Wan MD) Other Heart disease Review of Systems Constitutional: Denies: Chills, Fever, Weight Change HEENT: Denies: Head Aches, Sinus Congestion, Sinus Drainage Cardiovascular: Reports: Chest Pain. Denies: Palpitations Respiratory: Denies: Cough, Shortness of breath at rest, Sputum production Gastrointestinal: Denies: Abdominal Pain, Nausea, Vomiting Genitourinary: Denies: Dysuria Musculoskeletal: Denies: Joint Pain, Joint Tenderness Skin: Denies: Rash, Wounds Neurological: Denies: Numbness, Tingling, Focal weakness Psychiatric: Reports: Depression. Denies: Anxiety, Homicidal Ideations, Suicidal Ideations Hematologic/ Lymphatic: Denies: Easy Bruising, Easy Bleeding VTE Information - Inpt Only VTE Present on Admission: No VTE Mechan Device Prophylaxis: None VTE Pharm Prophylaxis ordered?: Yes Patient Problems: Active and Suspected Problems (Last Reviewed 07/26/18 @ 00:34 by Krishna Wan MD) Chest pain (Acute) - Physical Exam General: Alert, Oriented x3, Cooperative HEENT: Atraumatic, PERRLA, EOMI, Normocephalic Neck: Supple, Trachea Midline Lungs: Clear to auscultation, Normal air movement Cardiovascular: Regular rate, No murmurs Abdomen: Bowel Sounds Present, Soft, Non Tender Extremities: No edema, Capillary Refill Less than 3 Seconds Skin: No rashes, No breakdown Musculoskeletal: No Tenderness to Palpation of Joints or Extremities Neurological: Neuro grossly intact Psych/Mental Status: Flat Affect Vital Signs Temp Pulse Resp BP Pulse Ox 98.0 F 99 18 145/100 H 98 07/25/18 20:23 07/25/18 22:00 07/25/18 22:00 07/25/18 22:00 07/25/18 22:00 Oxygen Delivery Method Room Air Weight: 90.3 kg Body Mass Index (BMI) 34.2 Laboratory Tests Past 24 Hrs 07/25/18 07/25/18 21:25 21:25 WBC 11.6 H RBC 4.50 Hgb 13.0 Hct 42.6 MCV 94.7 MCH 28.9 MCHC 30.5 L RDW 14.0 RDW Differential 48.3 H Plt Count 377 MPV 10.5 Immature Gran % (Auto) 0.300 Neut % (Auto) 52.1 Lymph % (Auto) 32.6 [place] % (Auto) 14.0 H Eos % (Auto) 0.7 Baso % (Auto) 0.3 Absolute Neuts (auto) 6.1 Absolute Lymphs (auto) 3.78 Total Counted Not Reportable Differential Comment SCANNED Sodium 138 Potassium 3.7 Chloride 104 Carbon Dioxide 25.0 Anion Gap 9 BUN 9 Creatinine 0.93 Estim Creat Clear Calc 49.30 Est GFR (MDRD) Af Amer 77 Est GFR (MDRD) Non-Af 63 BUN/Creatinine Ratio 9.7 L Glucose 96 Calcium 8.5 Troponin I < 0.015 Assessment/Plan All Active Problems (Last Reviewed 07/26/18 @ 00:34 by Krishna Wan MD) Chest pain (Acute) Sinusitis (Acute) Hypokalemia (Acute) Hyponatremia (Acute) Gastroenteritis and colitis, viral (Acute) The patient is a 67 year old F with a significant history of schizophrenia; depression; GERD and hypothyroidism who presented with substernal chest pain that radiated to her right chest and to her bilateral jaws and with a family history of heart disease. Chest pain Admit to a monitored bed on PCU CXR independently reviewed confirms no acute cardiopulmonary process. EKG independently reviewed confirms Q waves in inferior leads; and T wave inversions in anterior leads. Patient received aspirin 325 mg at emergency department. ASA 81 mg p.o. daily SL NTG 0.4 mg prn as needed for chest pain Morphine as needed for pain We will check lipid panel. On home Pravachol. We will give Lipitor 80 mg x1. Serial cardiac enzymes Stat EKG as needed for chest pain Chemical Stress test in the AM if the cardiac enzymes are negative. Hypothyroidism Synthroid continued Depression Doxepin History of Hypokalemia On potassium supplements at home. Potassium is 3.7, normal Potassium supplementation continued. Leukocytosis On admission her white count was 11.6. Likely reactive. Trend DVT prophylaxis Lovenox SC ordered Code Visit OBSV E&M: [id number] Initial observation care L3
[2018-07-26] VITALS (10 sets, daily range): BP systolic 128–141; BP diastolic 73–94; PULSE 75–84; RESP 12–16; TEMP 36.2–36.8; O2SAT 92–93; BMI 33.2
--- NOTE | 2018-07-26 00:13 | EKG12_ITS ---
Test Reason : CP ADMIT Blood Pressure : / mmHG Vent. Rate : 078 BPM Atrial Rate : 078 BPM P-R Int : 156 ms QRS Dur : 082 ms QT Int : 384 ms P-R-T Axes : 018 -09 009 degrees QTc Int : 437 ms Normal sinus rhythm Inferior infarct (cited on or before 13-OCT-2017) Abnormal ECG When compared with ECG of 13-OCT-2017 07:49, No significant change was found Confirmed by ZAC SHAH, MARIAN ([id number]), slot editor CALIXTO ZHANG ([id number]) on 07/27/2018 1:50:34 PM Referred By: SANDRA Confirmed By:MARIAN FRANK MD
[2018-07-26] MEDS: Atorvastatin Calcium 80 MG Tablet PO (00:46)
[2018-07-26 03:42] LABS: Hematocrit 39.3 % (37-47); Mean Corp Hgb Conc 30.5 g/gl (32-36); Mean Corpuscular Hgb 29.2 pg (27.0-32.0); Mean Corpuscular Volume 95.6 fL (81-99); Mean Platelet Vol. 10.6 fl (6.2-12.0); Platelet Count 333 K/mm3 (150-450); RBC Distribution Width CV 13.8 % (11.6-14.6); RBC Distribution Width SD 46.5 fl (35.1-43.9); Red Blood Count 4.11 M/mm3 (4.2-5.4); White Blood Count 10.7 K/mm3 (4.4-11.0)
[2018-07-26 03:43] LABS: Scan Indicated on CBC? Y/N NO
[2018-07-26 03:49] LABS: International Normalized Ratio 0.9; Prothrombin Time (Protime)PT. 12.4 SECONDS (11.7-14.9)
[2018-07-26 03:50] LABS: Partial Thromboplast Time 25.6 Seconds (24.1-36.2)
[2018-07-26 04:18] LABS: Anion Gap 10 (5-15); BUN 10 mg/dL (7-18); BUN/Creat Ratio 12.5 RATIO (10-20); Calcium,Total 8.2 mg/dL (8.5-10.1); Chloride 107 mmol/L (98-107); Cholesterol 179 mg/dL (200); EST Glomerular Filtration Rate 75 mL/min (>60); Est Glom Filt Rate - Afr Amer 91 mL/min (>60); Estimated Creatinine Clearance 57.31 ml/min; Glucose 89 mg/dL (74-106); High Density Lipoprotein 66 mg/dL; Sodium Level 143 mmol/L (136-145); Triglycerides 115 mg/dL; Very Low Density Lipoprotein 23 mg/dL (5-40)
[2018-07-26] MEDS: Levothyroxine 88 MCG Tablet PO (06:00)
[2018-07-26] MEDS: Aspirin E.C. 81 MG Tablet PO (06:01)
[2018-07-26] MEDS: 0.9% NaCl Peripheral Flush Adult/Peds IV (08:18)
[2018-07-26] MEDS: Pantoprazole Sodium 40 MG Tablet PO (12:08)
[2018-07-26] MEDS: Paroxetine 20 MG Tablet 40 MG PO (12:08)
--- NOTE | 2018-07-26 12:23 | STRESSREP_ITS ---
Stress Test Report Date: 07-26-18 Procedure: Pharmacologic stress nuclear imaging study Indications: chest pain Consent: Per the patient Procedure: The patient underwent pharmacologic (Regadenoson) evaluation with a peak heart rate of 102 beats per minute (67% predicted maximal heart rate) and a peak blood pressure of 168/84 mmHg. The baseline ECG demonstrated normal sinus rhythm; nonspecific T-wave abnormality . The peak pharmacologic ECG demonstrated no obvious ECG changes . There were no cardiac dysrhythmias pretest, during pharmacologic infusion, or recovery. There was no complaint of chest discomfort during pharmacologic infusion or recovery. The examination was discontinued secondary to completion of protocol. Impression: 1. Pharmacologic (Regadenoson) evaluation 2. Peak pharmacologic ECG with no obvious ECG changes . 3. There were no cardiac dysrhythmias pretest, during pharmacologic infusion, or recovery. 4. Nuclear images pending Myocardial perfusion imaging study: Technique: The patient was injected with 10 millicuries of technetium 99m Cardiolite and subsequently rest SPECT Cardiolite nuclear imaging was obtained in the horizontal long, vertical long, and short axis views. The patient underwent pharmacologic (Regadenoson) evaluation with a peak heart rate of 102 beats per minute (67 % percent predicted maximal heart rate) and a peak blood pressure of 168/84 mmHg. The patient was injected with 35 millicuries of technetium 99m Cardiolite and subsequently stress SPECT Cardiolite nuclear imaging was obtained in the horizontal long, vertical long, and short axis views. A gated Cardiolite study at peak stress was obtained. Interpretation: Rest and stress SPECT Cardiolite nuclear imaging status post realignment, normalization, and attenuation correction demonstrate relative uniform tracer uptake and myocardial perfusion appearing within normal limits . There is end systolic thickening and brightening. The gated Cardiolite study demonstrates myocardial thickening and inward wall motion. The reported LVEF is 88 %. Impression: 1. Rest and stress SPECT Cardiolite nuclear imaging demonstrate relative uniform tracer uptake and myocardial perfusion appearing within normal limits. 2. The gated Cardiolite study reports an LVEF of 88 %. This note was generated with [employer] software. It may contain incorrect words, spelling, and punctuation that were not noted in checking the note before signing.
--- NOTE | 2018-07-26 12:35 | PCM.DC ---
- Discharge Diagnoses Current Active Problems: Current Active and Chronic Problems (Last Reviewed 07/26/18 @ 05:26 by Krishna Wan MD) Chest pain (Acute) You will use the following diet at home:: Cardiac Your food should be the consistency of: Regular Your liquids should be the consistency of: Regular/Thin Discharge Activity: Return to Normal Activity Allergies/Adverse Reactions: Allergies histamine phosphate [From Histatrol] Allergy (Verified 10/13/17 08:09) Unknown Medications to take at Discharge Levothyroxine [Synthroid] 88 mcg PO DAILY 08/21/13 Omeprazole [Prilosec] 40 mg PO DAILY 08/21/13 Paroxetine HCl [Paxil] 40 mg PO DAILY 03/22/17 Potassium 20 mg PO BID 03/22/17 Pravastatin [Pravachol] 40 mg PO QHS 03/22/17 Doxepin HCl 10 mg PO DAILY 07/25/18 traZODone [Desyrel] 50 mg PO QHS 07/25/18 Multivitamin with Minerals [Hair, Skin and Nails] 1 tab PO DAILY 07/26/18 Primary Care Physician: Raji Herrmann Chi, MD [Primary Care Provider] - Please follow up with your Primary Care Physician in: 1-2 weeks Test Results: Test results from this visit will be discussed in further detail at your follow-up appointment, if applicable. Proposed Discharge Date: 07/26/18
--- NOTE | 2018-07-26 12:39 | DCINST_ITS ---
- Discharge Diagnoses Current Active Problems: Current Active and Chronic Problems (Last Reviewed 07/26/18 @ 05:26 by Krishna Wan MD) Chest pain (Acute) You will use the following diet at home:: Cardiac Your food should be the consistency of: Regular Your liquids should be the consistency of: Regular/Thin Discharge Activity: Return to Normal Activity Allergies/Adverse Reactions: Allergies histamine phosphate [From Histatrol] Allergy (Verified 10/13/17 08:09) Unknown Medications to take at Discharge Levothyroxine [Synthroid] 88 mcg PO DAILY 08/21/13 Omeprazole [Prilosec] 40 mg PO DAILY 08/21/13 Paroxetine HCl [Paxil] 40 mg PO DAILY 03/22/17 Potassium 20 mg PO BID 03/22/17 Pravastatin [Pravachol] 40 mg PO QHS 03/22/17 Doxepin HCl 10 mg PO DAILY 07/25/18 traZODone [Desyrel] 50 mg PO QHS 07/25/18 Multivitamin with Minerals [Hair, Skin and Nails] 1 tab PO DAILY 07/26/18 Primary Care Physician: Raji Herrmann Chi, MD [Primary Care Provider] - Please follow up with your Primary Care Physician in: 1-2 weeks Test Results: Test results from this visit will be discussed in further detail at your follow- up appointment, if applicable. Proposed Discharge Date: 07/26/18
--- NOTE | 2018-07-26 15:10 | PCM.DC.SUM ---
<Douglas Jones - Last Filed: 07/26/18 15:10> Discharge Date and Diagnosis Date of Admission: 07/25/18 Date of Discharge: 07/26/18 - Primary Discharge Diagnosis Chest pain-musculoskeletal Yeast infection History of schizophrenia History of rheumatoid arthritis GERD Hypothyroidism - Secondary Discharge Diagnosis Chronic Problems (Last Reviewed 07/26/18 @ 05:26 by Krishna Wan MD) Schizophrenia (Chronic) Hypothyroidism (Chronic) Colon polyps (Chronic) last colonscopy was [address] Ventura Weight loss, non-intentional (Chronic) 50-60 lbs over the past 6 months. Pt states she has no appetite Rheumatoid arthritis (Chronic) GERD (gastroesophageal reflux disease) (Chronic) Hospital Course and Treatment Imaging Results: RAD/Chest 1 View (Portable) IMPRESSION: No acute cardiopulmonary disease or interval change. Stress Test: Impression: 1. Rest and stress SPECT Cardiolite nuclear imaging demonstrate relative uniform tracer uptake and myocardial perfusion appearing within normal limits. 2. The gated Cardiolite study reports an LVEF of 88 %. This note was generated with [employer] dictation software. It may contain incorrect words, spelling, and punctuation that were not noted in checking the note before signing. Procedures: Stress test Summary of Care Provided: Hospital Course: The patient is a 67 year old F with past medical history as noted above who presented to the emergency room with complaints of chest pain that began a few hours prior to presenting to the emergency room. It was described as a substernal pain radiating to the jaw which was relieved by baby aspirin and her the nitro that she took at home. It had resolved by the time she was seen in the emergency room. She reported that it did not come back throughout the stay. In ER she had a negative chest x-ray, negative EKG, negative troponin. She was admitted for chest pain workup. She was kept on telemetry overnight with no issues. Troponin was cycled and remained negative. Repeat EKG was negative. She underwent a stress test the following morning which was negative. She had noted that she had been exercising and lifting weights frequently recently, so her chest pain was felt to be musculoskeletal. She was discharged home in stable condition. Prior to discharge she complained of burning and itching in the vaginal area that she said felt like prior yeast infections and requested treatment. She is given a prescription for Monistat 1 and advised to follow up with her PCP in 1-2 weeks. This patient was seen by Douglas Jones PA-C under the supervision of Doctor Joanne. [] - Physical Exam General: Alert, Oriented x3, Cooperative HEENT: Atraumatic, PERRLA, EOMI, Normocephalic Neck: Supple, No JVD, Negative Carotid Bruits Lungs: Clear to auscultation, Normal air movement Cardiovascular: Regular rate, No murmurs Abdomen: Bowel Sounds Present, Soft, Non Tender Extremities: No edema, Capillary Refill Less than 3 Seconds Skin: No rashes, No breakdown Musculoskeletal: No Tenderness to Palpation of Joints or Extremities Neurological: Cranial nerves II-XII grossly intact Psych/Mental Status: Normal Affect, Appropriate, Alert and oriented to time, place, person, mood and affect Vital Signs Temp Pulse Resp BP Pulse Ox 97.2 F L 81 16 138/94 H 93 07/26/18 13:19 07/26/18 13:19 07/26/18 13:19 07/26/18 13:19 07/26/18 13:19 Oxygen Delivery Method Room Air Weight: 193 lb 5.526 oz Body Mass Index (BMI) 33.2 Intake and Output for Last 24 Hours 07/24/18 07/25/18 07/26/18 23:59 23:59 23:59 Intake Total 0 / 0 80 / 80 Output Total 0 / 0 Balance 0 / 0 80 / 80 Laboratory Tests Past 24 Hrs 07/25/18 07/25/18 07/26/18 21:25 21:25 00:38 WBC 11.6 H RBC 4.50 Hgb 13.0 Hct 42.6 MCV 94.7 MCH 28.9 MCHC 30.5 L RDW 14.0 RDW Differential 48.3 H Plt Count 377 MPV 10.5 Immature Gran % (Auto) 0.300 Neut % (Auto) 52.1 Lymph % (Auto) 32.6 [place] % (Auto) 14.0 H Eos % (Auto) 0.7 Baso % (Auto) 0.3 Absolute Neuts (auto) 6.1 Absolute Lymphs (auto) 3.78 Total Counted Not Reportable Differential Comment SCANNED PT INR APTT Sodium 138 Potassium 3.7 Chloride 104 Carbon Dioxide 25.0 Anion Gap 9 BUN 9 Creatinine 0.93 Estim Creat Clear Calc 49.30 Est GFR (MDRD) Af Amer 77 Est GFR (MDRD) Non-Af 63 BUN/Creatinine Ratio 9.7 L Glucose 96 Calcium 8.5 Troponin I < 0.015 < 0.015 Triglycerides Cholesterol LDL Cholesterol VLDL Cholesterol HDL Cholesterol 07/26/18 07/26/18 07/26/18 03:34 03:34 03:34 WBC 10.7 RBC 4.11 L Hgb 12.0 Hct 39.3 MCV 95.6 MCH 29.2 MCHC 30.5 L RDW 13.8 RDW Differential 46.5 H Plt Count 333 MPV 10.6 Immature Gran % (Auto) Neut % (Auto) Lymph % (Auto) [place] % (Auto) Eos % (Auto) Baso % (Auto) Absolute Neuts (auto) Absolute Lymphs (auto) Total Counted Differential Comment PT 12.4 INR 0.9 APTT 25.6 Sodium 143 Potassium 4.0 Chloride 107 Carbon Dioxide 26.0 Anion Gap 10 BUN 10 Creatinine 0.80 Estim Creat Clear Calc 57.31 Est GFR (MDRD) Af Amer 91 Est GFR (MDRD) Non-Af 75 BUN/Creatinine Ratio 12.5 Glucose 89 Calcium 8.2 L Troponin I < 0.015 Triglycerides 115 Cholesterol 179 LDL Cholesterol 90 VLDL Cholesterol 23 HDL Cholesterol 66 Discharge Diet: Low fat/ Low Cholesterol, 2000 mg Sodium Diet Discharge Activity: Return to Normal Activity Home Medications: Medications to take at Discharge Levothyroxine [Synthroid] 88 mcg PO DAILY 08/21/13 Omeprazole [Prilosec] 40 mg PO DAILY 08/21/13 Paroxetine HCl [Paxil] 40 mg PO DAILY 03/22/17 Potassium 20 mg PO BID 03/22/17 Pravastatin [Pravachol] 40 mg PO QHS 03/22/17 Doxepin HCl 10 mg PO DAILY 07/25/18 traZODone [Desyrel] 50 mg PO QHS 07/25/18 Miconazole Nitrate [Monistat 1] 1 each VG DAILY #1 kit 07/26/18 Multivitamin with Minerals [Hair, Skin and Nails] 1 tab PO DAILY 07/26/18 Following Prescrptions Were Given to Patient: Miconazole Nitrate [Monistat 1] 1 each VG DAILY #1 kit Primary Care Physician: Raji Herrmann Chi, MD [Primary Care Provider] - Please follow up with your Primary Care Physician in: 1-2 weeks Disposition: Home Minutes spent on discharge:: 35 Patient Condition:: Stable Medical Necessity - Tobacco Use Smoking Status: Never smoker Meaningful Use Info Meaningful Use Diagnoses (Choose all that apply): None applicable <Sanjay Rubio F - Last Filed: 07/26/18 17:07> Discharge Date and Diagnosis - Secondary Discharge Diagnosis Chronic Problems (Last Reviewed 07/26/18 @ 05:26 by Krishna Wan MD) Schizophrenia (Chronic) Hypothyroidism (Chronic) Colon polyps (Chronic) last colonscopy was [address] Ventura Weight loss, non-intentional (Chronic) 50-60 lbs over the past 6 months. Pt states she has no appetite Rheumatoid arthritis (Chronic) GERD (gastroesophageal reflux disease) (Chronic) Hospital Course and Treatment Summary of Care Provided: The patient is a 67 year old F [] - Physical Exam Vital Signs Temp Pulse Resp BP Pulse Ox 97.2 F L 81 16 138/94 H 93 07/26/18 13:19 07/26/18 13:19 07/26/18 13:19 07/26/18 13:19 07/26/18 13:19 Oxygen Delivery Method Room Air Weight: 193 lb 5.526 oz Body Mass Index (BMI) 33.2 Intake and Output for Last 24 Hours 07/24/18 07/25/18 07/26/18 23:59 23:59 23:59 Intake Total 0 / 0 80 / 80 Output Total 0 / 0 Balance 0 / 0 80 / 80 Laboratory Tests Past 24 Hrs 07/25/18 07/25/18 07/26/18 21:25 21:25 00:38 WBC 11.6 H RBC 4.50 Hgb 13.0 Hct 42.6 MCV 94.7 MCH 28.9 MCHC 30.5 L RDW 14.0 RDW Differential 48.3 H Plt Count 377 MPV 10.5 Immature Gran % (Auto) 0.300 Neut % (Auto) 52.1 Lymph % (Auto) 32.6 [place] % (Auto) 14.0 H Eos % (Auto) 0.7 Baso % (Auto) 0.3 Absolute Neuts (auto) 6.1 Absolute Lymphs (auto) 3.78 Total Counted Not Reportable Differential Comment SCANNED PT INR APTT Sodium 138 Potassium 3.7 Chloride 104 Carbon Dioxide 25.0 Anion Gap 9 BUN 9 Creatinine 0.93 Estim Creat Clear Calc 49.30 Est GFR (MDRD) Af Amer 77 Est GFR (MDRD) Non-Af 63 BUN/Creatinine Ratio 9.7 L Glucose 96 Calcium 8.5 Troponin I < 0.015 < 0.015 Triglycerides Cholesterol LDL Cholesterol VLDL Cholesterol HDL Cholesterol 07/26/18 07/26/18 07/26/18 03:34 03:34 03:34 WBC 10.7 RBC 4.11 L Hgb 12.0 Hct 39.3 MCV 95.6 MCH 29.2 MCHC 30.5 L RDW 13.8 RDW Differential 46.5 H Plt Count 333 MPV 10.6 Immature Gran % (Auto) Neut % (Auto) Lymph % (Auto) [place] % (Auto) Eos % (Auto) Baso % (Auto) Absolute Neuts (auto) Absolute Lymphs (auto) Total Counted Differential Comment PT 12.4 INR 0.9 APTT 25.6 Sodium 143 Potassium 4.0 Chloride 107 Carbon Dioxide 26.0 Anion Gap 10 BUN 10 Creatinine 0.80 Estim Creat Clear Calc 57.31 Est GFR (MDRD) Af Amer 91 Est GFR (MDRD) Non-Af 75 BUN/Creatinine Ratio 12.5 Glucose 89 Calcium 8.2 L Troponin I < 0.015 Triglycerides 115 Cholesterol 179 LDL Cholesterol 90 VLDL Cholesterol 23 HDL Cholesterol 66 Code Visit Addendum: Dr. Rubio I personally examined the patient and reviewed the chart. I agree with the above. 67-year-old female with a history of schizophrenia, depression, GERD and hypothyroidism presented with 1 month of intermittent chest pain. The last time she had this chest pain was a few hours prior to admission. She had serial troponins which were negative and she underwent a stress test this morning which was also negative. She thought that it could possibly be due to her gastric reflux as when she missed her PPI she had a similar chest pain. She will need to follow-up with her primary care physician in 3-5 days. OBSV E&M: 05339 Observation care discharge
== END 2018-07-26 12:39 | disposition home or self-care (01) ==
LOC: ED 22:00 → PCU 23:25
PROVIDERS: Admitting Provider Hospitalist; Emergency Provider Emergency Medicine; Family Provider Family Medicine Geriatric Medicine; PCP Family Medicine Geriatric Medicine; Visit Provider Family Medicine
DX: R07.89 Other chest pain (principal); M06.9 Rheumatoid arthritis, unspecified; K21.9 Gastro-esophageal reflux disease without esophagitis; E03.9 Hypothyroidism, unspecified; F20.9 Schizophrenia, unspecified; B37.9 Candidiasis, unspecified; E78.00 Pure hypercholesterolemia, unspecified; F32.9 Major depressive disorder, single episode, unspecified; Z79.899 Other long term (current) drug therapy; E87.6 Hypokalemia
CPT/HCPCS: 36415; 71045; 78452; 80048; 80061; 84484; 85025; 85027; 85610; 85730; 93005; 93017; 99218; 99282; A9500; A4216; G0378; J2785

== ENCOUNTER → 2018-07-27 11:45 | Outpatient (CLI) | payer MEDICARE, SELFPAY ==
[2018-07-26 00:14] VITALS: BMI 33.2
== END ==
PROVIDERS: Family Provider Family Medicine Geriatric Medicine; PCP Family Medicine Geriatric Medicine; Referring Provider Family Medicine Geriatric Medicine; Visit Provider Family Medicine Geriatric Medicine
DX: R68.83 Chills (without fever) (principal)
CPT/HCPCS: 87633

== ENCOUNTER → 2018-08-15 14:09 | Outpatient (CLI) | payer MEDICARE, SELFPAY ==
[2018-07-26 00:14] VITALS: BMI 33.2
--- NOTE | 2018-08-15 14:13 | CT_ITS ---
STUDY: CT BRAIN WITHOUT CONTRAST REASON FOR EXAM: Female, 68 years old. History of fall. RADIATION DOSAGE (If Supplied By Facility): CTDIvol = ( 44.99 ) mGy, DLP = ( 815.79 ) mGycm TECHNIQUE: Transaxial CT imaging of the brain was performed without administration of intravenous contrast material. Individualized dose optimization techniques were used for this CT. COMPARISON: Comparison is made with prior study dated May 07, 2017. FINDINGS: Normal soft tissue structures. Normal calvarium. There is mild cerebral atrophy with widening of the extra-axial spaces and ventricular dilatation. There are areas of decreased attenuation within the white matter tracts of the supratentorial brain, consistent with microvascular disease changes. Normal basal ganglia and thalami. Normal brainstem. Normal cerebellum. There is no intracranial hemorrhage. There are no findings of an acute ischemic infarction. Normal visualized paranasal sinuses. CT/Brain/Head without Contrast IMPRESSION: Chronic involutional changes of the brain. Electronically Signed: Chan Bowers, at 15:14 EDT , Service support ,
--- NOTE | 2018-08-15 14:17 | RAD_ITS ---
STUDY: X-RAY - UNILATERAL RIBS ( RIGHT ) WITH CHEST REASON FOR EXAM: Female, 68 years old. Trauma TECHNIQUE - RIBS: 4 view(s) of the ribs. TECHNIQUE - CHEST: Single PA view of the chest. COMPARISON: Prior chest study of 07/25/2018 FINDINGS - RIBS: There is a questionable nondisplaced fracture of the right fifth rib. FINDINGS - CHEST: The lungs are clear and expanded. There is no demonstrated pleural abnormality. Normal size heart. Normal mediastinum and ankita. Normal visualized pulmonary arteries. Normal visualized aortic arch and descending thoracic aorta. Normal visualized thoracic spine. Normal visualized ribs, clavicles, and shoulders. There is no demonstrated abnormality of the visualized soft tissue structures of the upper abdomen. RAD/Ribs Uni Min 3V w/PA Chest IMPRESSION: RIBS: Questionable nondisplaced fracture of the right fifth rib. CHEST: Normal x-ray examination of the chest. There is no evidence of hemo or pneumothorax or pulmonary contusion. Electronically Signed: Urban Chirinos MD at 16:23 EDT , Service support ,
[2018-08-15 15:39] LABS: Absolute Lymphocyte Count 3.14 X10^3/ul (0.83-4.51); Absolute Neutrophil Count 6.8 X10^3/uL (2.0-7.7); Basophil# 0.03 X10^3/uL; Basophil% 0.3 % (0-1); Eosinophil# 0.07 X10^3/uL; Eosinophils% 0.6 % (0-5); Hematocrit 40.8 % (37-47); Hemoglobin 12.5 g/dl (12.0-15.0); Lymphocyte # 3.14 X10^3/ul (4.0); Lymphocyte % 26.4 % (19-41); Mean Corp Hgb Conc 30.6 g/gl (32-36); Mean Corpuscular Hgb 28.9 pg (27.0-32.0); Mean Corpuscular Volume 94.2 fL (81-99); Mean Platelet Vol. 11.4 fl (6.2-12.0); Monocyte# 1.77 X10^3/uL; Monocyte% 14.9 % (0-10); Neutrophil # 6.82 X10^3/uL (2.7-7.7); Neutrophil % 57.3 % (47-70); Platelet Count 312 K/mm3 (150-450); RBC Distribution Width CV 13.6 % (11.6-14.6); RBC Distribution Width SD 46.9 fl (35.1-43.9); Red Blood Count 4.33 M/mm3 (4.2-5.4); White Blood Count 11.9 K/mm3 (4.4-11.0)
[2018-08-15 15:49] LABS: Differential Indicated SCAN CRITERIA MET; POSITIVE COUNT NO; POSITIVE DIFFERENTIAL YES; POSITIVE MORPHOLOGY NO
[2018-08-15 16:05] LABS: Anion Gap 5 (5-15); BUN 12 mg/dL (7-18); BUN/Creat Ratio 14.8 RATIO (10-20); Calcium,Total 8.4 mg/dL (8.5-10.1); Chloride 102 mmol/L (98-107); Creatinine, Serum 0.81 mg/dL (0.55-1.02); EST Glomerular Filtration Rate 74 mL/min (>60); Est Glom Filt Rate - Afr Amer 90 mL/min (>60); Glucose 75 mg/dL (74-106); Potassium 3.8 mmol/L (3.5-5.1); Sodium Level 135 mmol/L (136-145)
[2018-08-15 16:19] LABS: Differential Comment SCANNED
== END ==
PROVIDERS: Family Provider Family Medicine Geriatric Medicine; PCP Family Medicine Geriatric Medicine; Referring Provider Family Medicine Geriatric Medicine; Visit Provider Family Medicine Geriatric Medicine
DX: S09.90XA Unspecified injury of head, initial encounter (principal); R07.81 Pleurodynia; F05 Delirium due to known physiological condition; N39.0 Urinary tract infection, site not specified
CPT/HCPCS: 36415; 70450; 71101; 80048; 85025; 87077; 87086; 87088; 87186

== ENCOUNTER 2018-09-16 16:04 | Emergency (ER) | payer MEDICARE, SELFPAY ==
[2018-07-26 00:14] VITALS: BMI 33.2
[2018-09-16 16:05] VITALS: BP 168/105; PULSE 99; RESP 16; TEMP 36.3; BMI 34.0
--- NOTE | 2018-09-16 16:35 | RAD_ITS ---
STUDY: X-RAY - RIGHT KNEE REASON FOR EXAM: Female, 68 years old. Right knee pain. TECHNIQUE: 4 view(s) of the knee. COMPARISON: None. FINDINGS: There is generalized osteopenia. Normal visualized distal femur. Normal visualized proximal tibia and fibula. Normal proximal tibiofibular articulation. There is mild medial compartmental arthrosis. Normal lateral femorotibial compartment. There is moderate arthrosis of the lateral patellofemoral compartment. The soft tissue structures are unremarkable. RAD/Knee 4 or More Views IMPRESSION: Osteopenia with medial and patellofemoral compartment arthrosis. No acute abnormality. Electronically Signed: Pacheco Mota MD at 16:49 EDT , Service support ,
--- NOTE | 2018-09-16 16:43 | ED.VIS.GEN ---
History of Present Illness Chief Complaint: Lower Extremity Injury Informant: Patient Onset: Weeks - Fell 3 weeks ago onto left side. Reports right knee pain that she localizes over the lateral region. Timing: Continuous Quality: Comfort Location: Lateral right knee Current Severity: Mild Maximum Severity: Moderate Worsened by: Movement Relieved by: Rest Associated Symptoms: No associated symptoms Narrative: Patient is an elderly woman status post left total knee arthroplasty who fell 3 weeks ago. She did not seek medical attention at that time. She presents because of pain lateral right knee. She denies prior injury. She denies paresthesia, anesthesia buttocks. She has no other complaints. Prior similar symptoms: No Recent Illness/Hospitalization: No - Past Medical History (1) Colon polyps Status: Chronic Comment: last colonscopy was [address] Ventura (2) GERD (gastroesophageal reflux disease) Status: Chronic (3) Hypothyroidism Status: Chronic (4) Rheumatoid arthritis Status: Chronic (5) Schizophrenia Status: Chronic Past Medical History - Allergies and Home Meds Allergies/Adverse Reactions: Allergies histamine phosphate [From Histatrol] Allergy (Verified 10/13/17 08:09) Unknown Primary Care Physician: Raji Herrmann Chi, MD [Primary Care Provider] - Prior records reviewed: Yes Surgical History: tonsillectomy, - - Tubal ligation, colon polyp removal via a colonoscope. Lives: Spouse/ Significant Other Smoking Status: Never smoker Review of Systems Cardiovascular: Denies: Chest pain Respiratory: Denies: Dyspnea Musculoskeletal: Reports: Extremity Pain. Denies: Myalgias, Arthralgias, Neck pain, Back pain, Swelling, -, - Skin: Denies: Rash, Wounds Neurological: Denies: Weakness, Parasthesia, Numbness Hematologic: Denies: Easy bruising, Easy bleeding Physical Exam Vital Signs/Narrative: Vital Signs Temp Pulse Resp BP 09/16/18 16:05 97.3 F L 99 16 168/105 H Inital Vital Signs reviewed: Yes General: Well nourished, Well developed, No Acute Distress Eyes: Perrl, EOMI Cardiovascular: Regular rate, Regular rhythm, No murmurs, Normal S1, Normal S2 Respiratory: No distress, CTA bilaterally, Chest nontender Extremities: No edema, Tenderness, - - There is pain to palpation over the lateral collateral ligament. Varus valgus stress testing causes pain laterally with mild laxity of the lateral collateral ligament. There is no joint line tenderness. The patella is not ballotable. There is no effusion. Negative Chelsy's test. Negative modified Smiley's test. There is no pain the patient the popliteal fossa. DP and PT pulses are palpable.. Negative for: Nontender Skin: Normal color, No rash, No Trauma Neurological: Alert, Oriented x3, Cranial nerves II-XII grossly intact, Normal Strength, Normal Sensation Psychological: Normal affect, Normal Mood Diagnostic/Tx/Re-eval Chest X-Ray - ED: Read by ED Physician 4 view x-ray of the right knee was obtained. There is arthritic changes noted the patella. There is asymmetry of the joint. There is no fracture noted. There is no effusion noted. - Medical Decision Making Since there is laxity of the lateral collateral ligament history of trauma with no prior evaluation we will obtain x-ray to determine if there is evidence of pilon fracture. Otherwise patient has a lateral collateral ligament strain secondary to fall. Patient has evidence of osteopenia and arthritis patient was referred to Dr. Gilbert Stevens is on for orthopedics. ED Disposition - Plan for ED Patient: Disposition: Home or Assisted Living Diagnosis: Sprain of lateral collateral ligament of knee Instructions: ED Sprain Knee Collateral Ligaments Referrals: Raji Herrmann Chi, MD [Primary Care Provider] - Gilbert Stevens MD [STAFF PHYSICIAN] - 1 Week if not improving
[2018-09-16 18:21] VITALS: BP 159/99; PULSE 89; RESP 16; O2SAT 99
== END 2018-09-16 18:22 | disposition home or self-care (01) ==
PROVIDERS: Emergency Provider Emergency Medicine; Family Provider Family Medicine Geriatric Medicine; PCP Family Medicine Geriatric Medicine
DX: S83.421A Sprain of lateral collateral ligament of right knee, initial encounter (principal); M17.11 Unilateral primary osteoarthritis, right knee; W19.XXXA Unspecified fall, initial encounter; Y93.9 Activity, unspecified; Y92.9 Unspecified place or not applicable; K21.9 Gastro-esophageal reflux disease without esophagitis; E03.9 Hypothyroidism, unspecified; M06.9 Rheumatoid arthritis, unspecified; F20.9 Schizophrenia, unspecified; Z86.010 Personal history of colon polyps; Z96.652 Presence of left artificial knee joint; Z79.899 Other long term (current) drug therapy
CPT/HCPCS: 73564; 99282

== ENCOUNTER → 2019-06-03 10:23 | Outpatient (CLI) | payer MEDICARE, SELFPAY ==
--- NOTE | 2019-06-03 10:24 | BI_ITS ---
MAMMOGRAPHY - BILATERAL SCREENING REASON FOR EXAM: Female, 68 years old. Routine annual screening examination. PERTINENT HISTORY: Non-contributory. TECHNIQUE: Digital bilateral breast blue (3D mammographic acquisition) in the CC and MLO projections. 2-D mediolateral oblique (MLO) and craniocaudad (CC) views of both breasts were obtained. CAD: Full Field Digital Mammography with Computer Added Detection was performed. COMPARISON: Comparison is made with prior study dated June 01, 2018 and May 31, 2017. FINDINGS: Breast Composition: The breasts are almost entirely fatty. There are no dominant masses or suspicious calcifications. No other significant abnormalities are identified. There has been no significant change since the prior study. BI/SCREEN MAMM (CAD) W/BLUE BILAT IMPRESSION: Stable bilateral screening mammogram. Yearly follow-up mammogram recommended. (A) ASSESSMENT CATEGORY: BIRADS Category 1: Negative. A letter regarding these results will be sent to the patient by the facility within 30 days. Approximately 10% of breast cancers are not detected by mammography. A normal mammogram should not delay biopsy of a clinically suspicious abnormality. [id number] Electronically Signed: Chan Bowers, at 12:03 EST , Service support ,
== END ==
PROVIDERS: Family Provider Family Medicine; PCP Family Medicine; Referring Provider Family Medicine; Visit Provider Family Medicine
DX: Z12.31 Encounter for screening mammogram for malignant neoplasm of breast (principal)
CPT/HCPCS: 77063; 77067

== ENCOUNTER → 2019-10-21 13:05 | Outpatient (CLI) | payer MEDICARE, SELFPAY ==
[2019-10-21 16:58] LABS: Absolute Lymphocyte Count 2.57 X10^3/uL (0.83-4.51); Absolute Neutrophil Count 2.1 X10^3/uL (2.0-7.7); Basophil# 0.04 X10^3/uL; Basophil% 0.7 % (0-1); Eosinophil# 0.09 X10^3/uL; Eosinophils% 1.6 % (0-5); Hematocrit 42.1 % (37-47); Hemoglobin 12.6 g/dL (12.0-15.0); Lymphocyte # 2.57 X10^3/ul (4.0); Lymphocyte % 44.9 % (19-41); Mean Corp Hgb Conc 29.9 g/dL (32-36); Mean Corpuscular Hgb 27.3 pg (27.0-32.0); Mean Corpuscular Volume 91.3 fL (81-99); Mean Platelet Vol. 11.7 fl (6.2-12.0); Monocyte# 0.95 X10^3/uL; Monocyte% 16.6 % (0-10); NRBC Flagged by Analyzer 0 % (0-5); Neutrophil # 2.05 X10^3/uL (2.7-7.7); Neutrophil % 35.9 % (47-70); Platelet Count 315 K/mm3 (150-450); RBC Distribution Width CV 12.1 % (11.6-14.6); RBC Distribution Width SD 40.5 fl (35.1-43.9); Red Blood Count 4.61 M/mm3 (4.2-5.4); White Blood Count 5.7 K/mm3 (4.4-11.0)
[2019-10-21 17:20] LABS: ALB/GLOB Ratio 0.8 RATIO (0.9-2.4); AST(SGOT) 32 U/L (15-37); Alanine Aminotransfer ALT/SGPT 35 U/L (13-56); Albumin, Serum 3.4 g/dL (3.2-5.0); Alkaline Phosphatase 104 U/L (45-117); Anion Gap 9 (5-15); BUN 5 mg/dL (7-18); BUN/Creat Ratio 5.9 RATIO (10-20); Calcium,Total 9.3 mg/dL (8.5-10.1); Chloride 102 mmol/L (98-107); Cholesterol 145 mg/dL (200); Creatinine, Serum 0.84 mg/dL (0.55-1.02); EST Glomerular Filtration Rate 71 mL/min (>60); Est Glom Filt Rate - Afr Amer 85 mL/min (>60); Globulin 4.3 g/dL (2.2-4.2); Glucose 103 mg/dL (74-106); High Density Lipoprotein 43 mg/dL; Potassium 4.2 mmol/L (3.5-5.1); Protein, Total 7.7 g/dL (6.4-8.2); Sodium Level 137 mmol/L (136-145); Thyroid Stim Hormone (TSH) 0.11 uIU/mL (0.358-3.74); Triglycerides 194 mg/dL; Very Low Density Lipoprotein 39 mg/dL (5-40)
[2019-10-21 17:56] LABS: Vitamin D,25 Hydroxy 36.6 ng/mL
== END ==
PROVIDERS: PCP Family Medicine Geriatric Medicine; Visit Provider Family Medicine Geriatric Medicine
DX: E78.5 Hyperlipidemia, unspecified (principal); E55.9 Vitamin D deficiency, unspecified; I10 Essential (primary) hypertension
CPT/HCPCS: 36415; 80053; 80061; 82306; 84443; 85025

== ENCOUNTER → 2019-11-04 10:21 | Outpatient (CLI) | payer MEDICARE, SELFPAY | PROVIDERS: PCP Family Medicine Geriatric Medicine; Referring Provider Chiropractor; Visit Provider Chiropractor | DX: M99.03 Segmental and somatic dysfunction of lumbar region (principal) | CPT/HCPCS: 72110 ==

== ENCOUNTER → 2019-11-08 11:43 | Outpatient (CLI) | payer MEDICARE, SELFPAY ==
--- NOTE | 2019-11-08 11:50 | RAD_ITS ---
STUDY: X-RAY - PELVIS AND RIGHT HIP REASON FOR EXAM: Female, 69 years old. RIGHT HIP PAIN, LIFTING HEAVY WOOD TECHNIQUE: 3 views of the pelvis and hip. COMPARISON: None. FINDINGS: There is a non-specific bowel gas pattern. Normal visualized soft tissue structures. Normal bilateral iliac wings, sacroiliac joints and visualized sacrum. Normal bilateral superior and inferior pubic rami. Normal pubic symphysis. Normal bilateral ischial tuberosities. Normal visualized femoral head. Normal acetabulum. Normal hip joint. Clips in the pelvis are likely from previous tubal ligation RAD/HIP, UNI W/ Pelvis 2-3 Views IMPRESSION: Normal x-ray examination of the pelvis and hip. Electronically Signed: Frederic Kaplan MD at 17:03 EDT , Service support ,
== END ==
PROVIDERS: PCP Family Medicine Geriatric Medicine; Referring Provider Family Medicine Geriatric Medicine; Visit Provider Family Medicine Geriatric Medicine
DX: M25.551 Pain in right hip (principal)
CPT/HCPCS: 73502

== ENCOUNTER → 2019-11-27 | Outpatient (CLI) | payer MEDICARE, SELFPAY | END | disposition home or self-care (01) | LOC: POLAB3 16:17 → LABSPEC 16:18 | PROVIDERS: PCP Family Medicine Geriatric Medicine; Visit Provider Family Medicine Geriatric Medicine | DX: N39.0 Urinary tract infection, site not specified (principal) | CPT/HCPCS: 87086; 87088 ==

== ENCOUNTER → 2019-12-18 10:48 | Outpatient (CLI) | payer MEDICARE, SELFPAY ==
[2019-12-18 13:55] LABS: Thyroid Stim Hormone (TSH) 2.29 uIU/mL (0.358-3.74)
== END ==
PROVIDERS: PCP Family Medicine Geriatric Medicine; Visit Provider Family Medicine Geriatric Medicine
DX: E03.9 Hypothyroidism, unspecified (principal)
CPT/HCPCS: 36415; 84443

== ENCOUNTER → 2020-02-19 17:05 | Outpatient (CLI) | payer MEDICARE, SELFPAY ==
--- NOTE | 2020-02-19 17:19 | RAD_ITS ---
STUDY: X-RAY - ABDOMEN/PELVIS REASON FOR EXAM: Female, 69 years old. CONSTIPATION X 1 YEAR. INTERMITTENT NAUSEA. TECHNIQUE: AP supine and upright views of the abdomen and pelvis. COMPARISON: None. FINDINGS: Normal visualized lung bases. Fallopian tube clips. A pattern suggesting constipation is present. The bowel gas pattern is nonobstructive in appearance. There is no demonstrated free abdominal air. The visualized liver, spleen and kidneys are grossly normal in size and morphology. Normal soft tissue structures. Normal visualized osseous structures. RAD/Abd Inc Decub and/or Erect IMPRESSION: A pattern suggesting constipation is present. The bowel gas pattern is nonobstructive in appearance. Electronically Signed: Klaus Taveras MD at 19:50 EDT Tel , Service support ,
== END ==
PROVIDERS: PCP Family Medicine Geriatric Medicine; Referring Provider Family Medicine Geriatric Medicine; Visit Provider Family Medicine Geriatric Medicine
DX: K56.41 Fecal impaction (principal)
CPT/HCPCS: 74019

== ENCOUNTER → 2020-04-20 14:07 | Outpatient (CLI) | payer MEDICARE, SELFPAY ==
[2020-04-20 18:02] LABS: Absolute Lymphocyte Count 2.72 X10^3/uL (0.83-4.51); Absolute Neutrophil Count 3.3 X10^3/uL (2.0-7.7); Basophil# 0.03 X10^3/uL; Basophil% 0.4 % (0-1); Eosinophil# 0.08 X10^3/uL; Eosinophils% 1.1 % (0-5); Hemoglobin 13.7 g/dL (12.0-15.0); Lymphocyte # 2.72 X10^3/ul (4.0); Lymphocyte % 36.9 % (19-41); Mean Corp Hgb Conc 31.1 g/dL (32-36); Mean Corpuscular Hgb 29.1 pg (27.0-32.0); Mean Corpuscular Volume 93.6 fL (81-99); Mean Platelet Vol. 12.1 fl (6.2-12.0); Monocyte# 1.22 X10^3/uL; Monocyte% 16.6 % (0-10); NRBC Flagged by Analyzer 0 % (0-5); Neutrophil # 3.27 X10^3/uL (2.7-7.7); Neutrophil % 44.3 % (47-70); Platelet Count 266 K/mm3 (150-450); RBC Distribution Width CV 11.9 % (11.6-14.6); RBC Distribution Width SD 41.1 fl (35.1-43.9); White Blood Count 7.4 K/mm3 (4.4-11.0)
[2020-04-20 18:16] LABS: Vitamin D,25 Hydroxy 27.9 ng/mL
[2020-04-20 18:38] LABS: ALB/GLOB Ratio 0.9 RATIO (0.9-2.4); AST(SGOT) 31 U/L (15-37); Alanine Aminotransfer ALT/SGPT 33 U/L (13-56); Albumin, Serum 3.8 g/dL (3.2-5.0); Alkaline Phosphatase 122 U/L (45-117); Anion Gap 8 (5-15); BUN 6 mg/dL (7-18); BUN/Creat Ratio 7.9 RATIO (10-20); Calcium,Total 9.2 mg/dL (8.5-10.1); Chloride 104 mmol/L (98-107); Cholesterol 164 mg/dL (200); Creatinine, Serum 0.76 mg/dL (0.55-1.02); EST Glomerular Filtration Rate 80 mL/min (>60); Est Glom Filt Rate - Afr Amer 96 mL/min (>60); Globulin 4.1 g/dL (2.2-4.2); Glucose 81 mg/dL (74-106); High Density Lipoprotein 53 mg/dL; Potassium 4.1 mmol/L (3.5-5.1); Protein, Total 7.9 g/dL (6.4-8.2); Sodium Level 136 mmol/L (136-145); Thyroid Stim Hormone (TSH) 1.89 uIU/mL (0.358-3.74); Triglycerides 219 mg/dL; Very Low Density Lipoprotein 44 mg/dL (5-40)
== END ==
PROVIDERS: PCP Family Medicine Geriatric Medicine; Visit Provider Family Medicine Geriatric Medicine
DX: E55.9 Vitamin D deficiency, unspecified (principal); E78.5 Hyperlipidemia, unspecified; I10 Essential (primary) hypertension
CPT/HCPCS: 36415; 80053; 80061; 82306; 84443; 85025

== ENCOUNTER → 2020-04-22 10:48 | Outpatient (CLI) | payer MEDICARE, SELFPAY ==
--- NOTE | 2020-04-22 10:52 | RAD_ITS ---
STUDY: X-RAY - RIGHT HAND REASON FOR EXAM: Female, 69 years old. Pain in hand for several months. TECHNIQUE: 3 view(s) of the hand. COMPARISON: None. FINDINGS: Normal radiocarpal articulation. Normal distal radioulnar joint. Normal visualized carpal bones. There is degenerative joint disease of the scaphotrapezium / trapezoid articulation. The remainder of the carpal articulations are normal. There is degenerative arthrosis of the carpometacarpal (CMC) articulation of the thumb. Normal second through fifth carpometacarpal joints. Normal metacarpi. There is degenerative arthrosis of the metacarpophalangeal (MCP) joints. There is degenerative arthrosis of the interphalangeal joint of the thumb with articular joint space narrowing. Normal proximal and distal phalanges of the thumb. There is degenerative arthrosis of the metacarpophalangeal (MCP) joints. There is diffuse articular joint space narrowing of the proximal and distal interphalangeal joints of the second through fifth fingers, but without erosive changes or periarticular soft tissue swelling. Normal phalanges of the second through fifth fingers. The soft tissue structures are unremarkable. RAD/Hand Min 3 Views IMPRESSION: Diffuse degenerative narrowing of the scaphoid trapezium/trapezoid articulation, first carpometacarpal, metacarpal phalangeal joints and interphalangeal joints. The more severe narrowing is in the interphalangeal joints and not substantially changed from the prior exam. Electronically Signed: Eloina Cope MD at 17:16 EST , Service support ,
--- NOTE | 2020-04-22 13:05 | NEURO ---
NCS and/or EMG Patient Report Ordering Doctor: Raji Herrmann Chi DATE OF SERVICE: 04/22/20 Kaia Hale is a 69-year-old female who presents for electrodiagnostic testing of the upper limbs. She reports numbness and tingling in both hands, progressively worsening for the past several years. Electrodiagnostic findings: Median motor nerve demonstrates normal distal latency, amplitude and conduction velocity bilaterally. Normal ulnar motor response bilaterally including conduction across the elbow. Normal median and ulnar F waves. Mildly prolonged left median sensory latency at the wrist. Normal right median sensory latency. Normal median palmar response bilaterally. Normal ulnar radial sensory responses. On needle EMG, all muscles tested in the upper limb showed no evidence of denervation with normal motor unit action potentials. Electrodiagnostic assessment: This is an abnormal study in the upper limbs 1. Electrodiagnostic findings demonstrate left-sided median mononeuropathy, consistent with a mild left carpal tunnel syndrome. There is no definitive electrodiagnostic evidence for right carpal tunnel syndrome. 2. No electrodiagnostic evidence is noted for ulnar neuropathy, including cubital tunnel syndrome 3. There is no electrodiagnostic evidence noted for cervical radiculopathy. If there are any further questions, please not hesitate to contact me.
== END ==
PROVIDERS: PCP Family Medicine Geriatric Medicine; Referring Provider Family Medicine Geriatric Medicine; Visit Provider Family Medicine Geriatric Medicine
DX: M79.641 Pain in right hand (principal)
CPT/HCPCS: 73130; 95886; 95913

== ENCOUNTER → 2020-05-05 10:11 | Outpatient (CLI) | payer MEDICARE, SELFPAY ==
--- NOTE | 2020-05-05 10:14 | RAD_ITS ---
STUDY: X-RAY - LUMBAR SPINE REASON FOR EXAM: Female, 69 years old. LBP IN THE MIDDLE. TECHNIQUE: 2 view(s) of the lumbar spine were obtained. COMPARISON: 04/08/2016 FINDINGS: Normal lumbar lordosis. Mild dextroscoliosis of the thoracic lumbar spine. There is a normal alignment of the vertebrae. There is multilevel endplate spondylosis of the lumbar vertebrae. There is multi-level degenerative disc disease with multi-level disc space narrowing. The soft tissue structures are unremarkable. RAD/Lumbar Spine 2 or 3 Views IMPRESSION: Mild dextroscoliosis with degenerative disc disease. Electronically Signed: Ruperto Wyatt MD at 16:53 EST Tel , Service support ,
== END ==
PROVIDERS: PCP Family Medicine Geriatric Medicine; Visit Provider Family Medicine Geriatric Medicine
DX: M54.5 Low back pain (principal)
CPT/HCPCS: 72100

== ENCOUNTER 2020-05-19 00:12 | Emergency (ER) | payer MEDICARE, SELFPAY ==
[2020-05-19 00:13] VITALS: BP 152/87; PULSE 79; RESP 18; TEMP 35.8; O2SAT 95; BMI 34.0
--- NOTE | 2020-05-19 00:32 | ED.VIS.UPPEX ---
History of Present Illness Chief Complaint: Bite Narrative: Patient presenting for evaluation secondary to a cat bite. Patient reports that there was a stray cat curled up on her porch, she went out to try and help that and had bit her in the right hand. Patient states that her tetanus status is outside of 5 years. Patient is right-hand dominant. She suffered multiple bite wounds to the dorsum of her right hand just proximal to the metacarpophalangeal joint of the thumb. There is some pain in that generalized area, this is worse with palpation. No numbness or weakness. Patient is not on any sort of anticoagulants or immunosuppressants. Past Medical History - Allergies and Home Meds Allergies/Adverse Reactions: Allergies linaclotide [From Linzess] Allergy (Mild, Verified 05/19/20 00:15) chest tightness histamine phosphate [From Histatrol] Allergy (Verified 05/19/20 00:15) Unknown Primary Care Physician: Saleem Breaux DO [STAFF PHYSICIAN] - 1 Day for another exam Prior records reviewed: Yes Past Medical History: - - Arthritis, IBS, hypothyroidism Surgical History: tonsillectomy, - - Tubal ligation, colon polyp removal via a colonoscope. Lives: With Family Smoking Status: Former smoker Alcohol: None Drugs: None Review of Systems General: Denies: Fever Musculoskeletal: Reports: Extremity Pain Skin: Reports: Wounds. Denies: Rash, Abscess, Abrasions Neurological: Denies: Weakness, Parasthesia Psych: Denies: Anxiety Hematologic: Denies: Easy bruising, Easy bleeding Physical Exam Vital Signs/Narrative: Vital Signs Temp Pulse Resp BP Pulse Ox 05/19/20 00:13 96.4 F L 79 18 152/87 H 95 Inital Vital Signs reviewed: Yes Left Hand: - - Examination of the right hand shows puncture wounds over the dorsum of the hand near the thenar portion of the hand just proximal to the metacarpal phalangeal joint of the thumb. There are 4 puncture wounds. Minimal tenderness palpation. No erythema. Normal capillary refill normal distal sensati General: Well nourished, Well developed Head: Normocephalic, Atraumatic ENT: No Trauma Neck: Full ROM Cardiovascular: Regular rate, Regular rhythm, No murmurs, - - 2+ radial pulses bilaterally symmetric Respiratory: No distress, CTA bilaterally Skin: - - Puncture wounds as noted above Neurological: Alert, Oriented x3 Psychological: Normal affect Diagnostic/Tx/Re-eval - Medical Decision Making Patient presented secondary to a cat bite to the right hand. Patient's tetanus status was updated. Wounds were anesthetized and copiously irrigated under pressure as noted in the procedure note. Patient was advised that this is a high risk wound for infection, she was given a dose of Augmentin in the emergency department and will be discharged with a course of the same. Patient reports that she is seen at Dr. Frances, orthopedics, in the past. Dr. Frances however is not on-call this evening, Dr. Breaux is taking call. Despite thorough irrigation, the wounds as noted in the procedure note all seem to communicate and I feel are high risk for developing infection. I believe the patient requires a 24-hour wound check. I did contact Dr. Breaux to arrange this. I spoke with him at 0130. Patient understands signs and symptoms for which to return. Procedures Procedure(s): Patient's hand was cleansed with a alcohol pad. The areas of the puncture wounds were infiltrated with 1% lidocaine with epinephrine. Total of 8 cc of lidocaine were utilized with good anesthesia. Wounds were then explored, there was no evidence of foreign material. An 18-gauge Angiocath was utilized with a 20 cc syringe. Copious amounts of saline were run through each of the puncture wounds, and it became evident that there was actually a total of 5 puncture wounds all of which seem to communicate when irrigated under pressure. Bacitracin was placed over top of these wounds, a nonstick pad was placed over top of that, and a bulky dressing was placed over top of that. Patient tolerated this well. ED Disposition - Plan for ED Patient: Disposition: Home or Assisted Living Diagnosis: Cat bite Instructions: ED Cat Bite Prescriptions: Amox/Clavulanate Tablet [Augmentin Tablet] 875 mg PO Q12H #14 tab Prescription Printed Referrals: Saleem Breaux DO [STAFF PHYSICIAN] - 1 Day for another exam
[2020-05-19] MEDS: Diphth,Pertuss(Acell),Tet Vac 0.5 ML Vial IM (00:47)
[2020-05-19] MEDS: Lidocaine 1%/Epi 1:200 (30ml) 30 ML AMPUL INFILT (00:47)
[2020-05-19] MEDS: Amox/Clavulanate 875 MG Tablet PO (00:49)
[2020-05-19 01:35] VITALS: PULSE 88; RESP 17; O2SAT 98
== END 2020-05-19 01:36 | disposition home or self-care (01) ==
LOC: ED 01:19
PROVIDERS: Emergency Provider Emergency Medicine; PCP Family Medicine Geriatric Medicine
DX: S60.571A Other superficial bite of hand of right hand, initial encounter (principal); W55.01XA Bitten by cat, initial encounter; Y93.9 Activity, unspecified; Y92.9 Unspecified place or not applicable; M19.90 Unspecified osteoarthritis, unspecified site; K58.9 Irritable bowel syndrome, unspecified; E03.9 Hypothyroidism, unspecified; Z87.19 Personal history of other diseases of the digestive system; Z79.899 Other long term (current) drug therapy; Z87.891 Personal history of nicotine dependence
CPT/HCPCS: 90715; A4216

== ENCOUNTER → 2020-05-19 10:35 | Outpatient (CLI) | payer MEDICARE, SELFPAY ==
[2020-05-19 00:13] VITALS: BMI 34.0
[2020-05-19 15:17] LABS: M R Staph aureus DNA By PCR Negative (Negative); Probe Check PASS; Specimen Processing Control PASS; Staph aureus DNA By PCR NEGATIVE (Negative)
== END ==
PROVIDERS: PCP Family Medicine Geriatric Medicine; Visit Provider Family Medicine Geriatric Medicine
DX: S60.571A Other superficial bite of hand of right hand, initial encounter (principal); L03.119 Cellulitis of unspecified part of limb; W55.01XA Bitten by cat, initial encounter; Y93.9 Activity, unspecified; Y92.9 Unspecified place or not applicable; M19.90 Unspecified osteoarthritis, unspecified site; K58.9 Irritable bowel syndrome, unspecified; E03.9 Hypothyroidism, unspecified; Z87.19 Personal history of other diseases of the digestive system; Z79.899 Other long term (current) drug therapy; Z87.891 Personal history of nicotine dependence
CPT/HCPCS: 87070; 87205; 87640; 90715; 99284; A4216

== ENCOUNTER → 2020-06-05 09:39 | Outpatient (CLI) | payer MEDICARE, SELFPAY ==
[2020-05-19 00:13] VITALS: BMI 34.0
--- NOTE | 2020-06-05 09:42 | RAD_ITS ---
STUDY: X-RAY - LEFT HAND REASON FOR EXAM: Inflammatory polyarthropathy. TECHNIQUE: 3 view(s) of the hand. COMPARISON: Radiographs 08/26/2015. FINDINGS: Normal radiocarpal articulation. Normal distal radioulnar joint. Normal visualized carpal bones. There is moderate joint space narrowing of the triscaphe articulation as on the prior study Normal carpometacarpal articulation of the thumb. Normal second through fifth carpometacarpal joints. Normal metacarpi. There is mild joint space narrowing of the metacarpophalangeal joint of the thumb similar to the prior study. There are small marginal osteophytes and moderate joint space narrowing of the interphalangeal joint of the thumb similar to the prior study. Normal proximal and distal phalanges of the thumb. Normal metacarpophalangeal joints of the second through fifth fingers. There is joint space narrowing of the proximal and distal interphalangeal joints of the second through fourth fingers and fifth distal interphalangeal joint similar to the prior study. Normal phalanges of the second through fifth fingers. The soft tissue structures are unremarkable. RAD/Hand Min 3 Views IMPRESSION: Osteoarthritis without significant interval change. Electronically Signed: Merrick Soto MD at 10:22 EST Tel , Service support ,
--- NOTE | 2020-06-05 09:43 | RAD_ITS ---
STUDY: X-RAY - RIGHT HAND REASON FOR EXAM: Inflammatory polyarthropathy. TECHNIQUE: 3 view(s) of the hand. COMPARISON: Radiographs 04/22/2020. FINDINGS: Normal radiocarpal articulation. Normal distal radioulnar joint. Normal visualized carpal bones. There is moderate joint space narrowing of the triscaphe articulation as on the prior study. There is mild joint space narrowing of the carpometacarpal articulation of the thumb as on the prior study. Normal second through fifth carpometacarpal joints. Normal metacarpi. There is mild joint space narrowing of the metacarpophalangeal joint of the thumb as on the prior study. There are marginal osteophytes and severe joint space narrowing of the interphalangeal joint of the thumb as on the prior study. Normal proximal and distal phalanges of the thumb. Normal metacarpophalangeal joints of the second through fifth fingers. There is joint space narrowing of the proximal and distal interphalangeal joints of the second through fifth fingers as on the prior study. Normal phalanges of the second through fifth fingers. The soft tissue structures are unremarkable. RAD/Hand Min 3 Views IMPRESSION: Osteoarthritis without interval change. Electronically Signed: Merrick Soto MD at 10:22 EST Tel , Service support ,
[2020-06-05 10:45] LABS: Erythrocyte Sedimentation Rate 14 mm/hr (0-30)
[2020-06-05 10:47] LABS: Absolute Lymphocyte Count 3.09 X10^3/uL (0.83-4.51); Absolute Neutrophil Count 2.4 X10^3/uL (2.0-7.7); Basophil# 0.04 X10^3/uL; Basophil% 0.6 % (0-1); Eosinophil# 0.23 X10^3/uL; Eosinophils% 3.4 % (0-5); Hematocrit 42.7 % (37-47); Hemoglobin 13.3 g/dL (12.0-15.0); Lymphocyte # 3.09 X10^3/ul (4.0); Mean Corp Hgb Conc 31.1 g/dL (32-36); Mean Corpuscular Hgb 29.5 pg (27.0-32.0); Mean Corpuscular Volume 94.7 fL (81-99); Mean Platelet Vol. 11.3 fl (6.2-12.0); Monocyte# 0.88 X10^3/uL; Monocyte% 13.1 % (0-10); NRBC Flagged by Analyzer 0 % (0-5); Neutrophil # 2.44 X10^3/uL (2.7-7.7); Neutrophil % 36.3 % (47-70); Platelet Count 293 K/mm3 (150-450); RBC Distribution Width CV 12.5 % (11.6-14.6); RBC Distribution Width SD 43.7 fl (35.1-43.9); Red Blood Count 4.51 M/mm3 (4.2-5.4); White Blood Count 6.7 K/mm3 (4.4-11.0)
[2020-06-05 10:56] LABS: ALB/GLOB Ratio 0.9 RATIO (0.9-2.4); AST(SGOT) 27 U/L (15-37); Alanine Aminotransfer ALT/SGPT 36 U/L (13-56); Albumin, Serum 3.4 g/dL (3.2-5.0); Alkaline Phosphatase 135 U/L (45-117); Anion Gap 5 (5-15); BUN 7 mg/dL (7-18); BUN/Creat Ratio 8.5 RATIO (10-20); CRP < 2.90 mg/L (0.0-3.0); Calcium,Total 8.8 mg/dL (8.5-10.1); Chloride 105 mmol/L (98-107); Creatinine, Serum 0.82 mg/dL (0.55-1.02); EST Glomerular Filtration Rate 73 mL/min (>60); Est Glom Filt Rate - Afr Amer 88 mL/min (>60); Globulin 3.9 g/dL (2.2-4.2); Glucose 93 mg/dL (74-106); Potassium 3.6 mmol/L (3.5-5.1); Protein, Total 7.3 g/dL (6.4-8.2); Rheumatoid Factor < 10.0 IU/mL (<15); Sodium Level 139 mmol/L (136-145)
[2020-06-05 11:33] LABS: Hepatitis B Surface Antibody Non-Reactive; Hepatitis B Surface Antigen Non-Reactive (Nonreactive); Hepatitis C Antibody Non-Reactive (Nonreactive)
[2020-06-07 14:53] LABS: ANTINUCLEAR ANTIBODIES DIRECT Negative (Negative)
[2020-06-09 09:50] LABS: CCP IgG Antibodies 15 units (0-19); Hepatitis B Core AB IgM Negative (Negative)
== END ==
PROVIDERS: PCP Family Medicine Geriatric Medicine; Referring Provider Internal Medicine Rheumatology; Visit Provider Internal Medicine Rheumatology
DX: M06.4 Inflammatory polyarthropathy (principal); M17.0 Bilateral primary osteoarthritis of knee; M47.897 Other spondylosis, lumbosacral region; K22.70 Barrett's esophagus without dysplasia; F32.9 Major depressive disorder, single episode, unspecified; E03.9 Hypothyroidism, unspecified; E78.5 Hyperlipidemia, unspecified
CPT/HCPCS: 36415; 73130; 80053; 85025; 85652; 86038; 86140; 86200; 86431; 86705; 86706; 86803; 87340

== ENCOUNTER → 2020-06-10 14:48 | Outpatient (CLI) | payer MEDICARE, SELFPAY ==
[2020-05-19 00:13] VITALS: BMI 34.0
--- NOTE | 2020-06-10 14:50 | BI_ITS ---
MAMMOGRAPHY - BILATERAL SCREENING REASON FOR EXAM: Female, 69 years old. Routine annual screening examination. PERTINENT HISTORY: Non-contributory. TECHNIQUE: Digital bilateral breast blue (3D mammographic acquisition) in the CC and MLO projections. 2-D mediolateral oblique (MLO) and craniocaudad (CC) views of both breasts were obtained. CAD: Full Field Digital Mammography with Computer Added Detection was performed. COMPARISON: Comparison is made with prior examination dated 06/03/2019 and 06/01/2018. FINDINGS: Breast Composition: The breasts are almost entirely fatty. There are no dominant masses or suspicious calcifications. No other significant abnormalities are identified. There has been no significant change since the prior study. BI/SCRN MAMM (CAD)W/BLUE BILAT IMPRESSION: Stable bilateral screening mammogram. Yearly follow-up mammogram recommended. (A) ASSESSMENT CATEGORY: BIRADS Category 1: Negative. A letter regarding these results will be sent to the patient by the facility within 30 days. Approximately 10% of breast cancers are not detected by mammography. A normal mammogram should not delay biopsy of a clinically suspicious abnormality. [id number] Electronically Signed: Chan Bowers MD at 15:33 EST , Service support ,
== END ==
PROVIDERS: PCP Family Medicine Geriatric Medicine; Referring Provider Family Medicine Geriatric Medicine; Visit Provider Family Medicine Geriatric Medicine
DX: Z12.31 Encounter for screening mammogram for malignant neoplasm of breast (principal)
CPT/HCPCS: 77063; 77067

== ENCOUNTER → 2020-07-10 10:58 | Outpatient (CLI) | payer MEDICARE, SELFPAY ==
--- NOTE | 2020-07-10 11:05 | RAD_ITS ---
STUDY: X-RAY - RIGHT KNEE REASON FOR EXAM: Female, 69 years old. right knee pain x 1 week, patient felt a pop in knee 1 week ago TECHNIQUE: 3 view(s) of the knee. COMPARISON: None. FINDINGS: Normal visualized distal femur. Normal visualized proximal tibia and fibula. Normal proximal tibiofibular articulation. There is mild degenerative arthrosis of the medial femorotibial compartment. There is mild degenerative arthrosis of the lateral femorotibial compartment. There is mild degenerative arthrosis of the patellofemoral articulation. There is a soft tissue prominence in the suprapatellar region suggesting a small volume joint effusion. The soft tissue structures are unremarkable. RAD/Knee 3 Views IMPRESSION: Mild arthrosis with a small joint effusion. Electronically Signed: Ruperto Wyatt MD at 12:16 EST Tel , Service support ,
== END ==
PROVIDERS: PCP Family Medicine Geriatric Medicine; Referring Provider Family Medicine Geriatric Medicine; Visit Provider Family Medicine Geriatric Medicine
DX: M25.561 Pain in right knee (principal)
CPT/HCPCS: 73562

== ENCOUNTER 2020-08-12 01:27 | Observation (INO) | payer MEDICARE, SELFPAY ==
[2020-08-12] VITALS (20 sets, daily range): BP systolic 84–180; BP diastolic 57–95; PULSE 64–81; RESP 16–114; TEMP 36.1–36.8; O2SAT 91–97; BMI 33.2; BMI 32.6; BMI 32.7
--- NOTE | 2020-08-12 01:35 | ED.RN ---
CALLED FOR EKG PER RN REQUEST, PULLED OLD EKGS FOR
--- NOTE | 2020-08-12 01:46 | EKG12_ITS ---
Test Reason : CP Blood Pressure : / mmHG Vent. Rate : 072 BPM Atrial Rate : 072 BPM P-R Int : 142 ms QRS Dur : 082 ms QT Int : 388 ms P-R-T Axes : 008 -12 017 degrees QTc Int : 424 ms Normal sinus rhythm Inferior infarct , age undetermined Abnormal ECG Confirmed by ZAC SHAH, MARIAN ([id number]), design editor MURTAZA RODRIGUEZ ([id number]) on 08/12/2020 1:58:28 PM Referred By: EZEKIEL Confirmed By:MARIAN FRANK MD
--- NOTE | 2020-08-12 01:46 | ED.DCSUM_ITS ---
History of Present Illness Chief Complaint: Chest Pain Informant: Patient Narrative: Presents 2 hours of substernal chest tightness. Denies any other symptoms other than feeling tired. She took 4 baby aspirin with moderate relief of symptoms. Current severity is mild. No radiation. Denies any diaphoresis nausea or vomiting. No history of acute coronary syndrome or heart attack. Only cardiac risk factor is age and history of high cholesterol. Denies any other cardiac risk factors. Denies any pulmonary embolism or dissection risk factors. Negative stress test 2 years ago for chest discomfort. No previous heart cath. Worsened by nothing. Relieved by nothing. No recent long distance trips by car or plane. No leg swelling. - Past Medical History (1) Chest pain Status: Acute (2) Gastroenteritis and colitis, viral Status: Acute (3) Hypokalemia Status: Acute (4) Hyponatremia Status: Acute (5) Segmental and somatic dysfunction of lumbar region Status: Acute (6) Segmental and somatic dysfunction of pelvic region Status: Acute (7) Sinusitis Status: Acute (8) Colon polyps Status: Chronic Comment: last colonscopy was [address] Ventura (9) GERD (gastroesophageal reflux disease) Status: Chronic (10) Hypothyroidism Status: Chronic (11) Rheumatoid arthritis Status: Chronic (12) Schizophrenia Status: Chronic (13) Weight loss, non-intentional Status: Chronic Comment: 50-60 lbs over the past 6 months. Pt states she has no appetite Past Medical History - Allergies and Home Meds Allergies/Adverse Reactions: Allergies linaclotide [From Linzess] Allergy (Mild, Verified 08/12/20 01:32) chest tightness histamine phosphate [From Histatrol] Allergy (Verified 08/12/20 01:32) Unknown Primary Care Physician: Raji Herrmann Chi, MD [Primary Care Provider] - Prior records reviewed: Yes Past Medical History: - - See problem list Surgical History: tonsillectomy, - - Tubal ligation, colon polyp removal via a colonoscope. Smoking Status: Never smoker Alcohol: None Drugs: None Review of Systems General: Denies: Chills, Fever, Sweats Eyes: Denies: Visual changes - bilaterally, Diplopia ENT: Denies: Rhinorrhea, Sore throat Cardiovascular: Reports: Chest pain. Denies: Palpitations Respiratory: Denies: Dyspnea, Cough, Dyspnea on exertion Gastrointestinal: Denies: Abdominal pain, Nausea, Vomiting, Diarrhea, Melena, Hematochezia Genitourinary: Denies: Dysuria, Hematuria, Frequency Musculoskeletal: Denies: Back pain, Extremity Pain Skin: Denies: Rash, Wounds Neurological: Denies: Headache, Weakness, Numbness Physical Exam Vital Signs/Narrative: Vital Signs Temp Pulse Resp BP Pulse Ox 08/12/20 01:30 157/95 H 08/12/20 01:28 98.1 F 75 16 180/93 H 94 General: Well nourished, Well developed, No Acute Distress Head: Normocephalic, Atraumatic Eyes: Perrl, EOMI ENT: Moist mucous membranes, No rhinorrhea Neck: Supple, Nontender Cardiovascular: Regular rate, Regular rhythm, No murmurs Respiratory: No distress, CTA bilaterally, Chest nontender Abdomen: Soft, Nontender, Nondistended, Normal bowel sounds Back: Nontender, Normal Inspection Extremities: Nontender, No edema Skin: Normal color, No rash Neurological: Alert, Oriented x3, Cranial nerves II-XII grossly intact, Normal Strength, Normal Sensation Psychological: Normal affect, Normal Mood Diagnostic/Tx/Re-eval - Medical Decision Making EKG obtained upon arrival shows sinus rhythm at a rate of 72 with no acute STEMI. T wave inversion inferior leads III as well as V1 and V2. This is unchanged from prior EKG. Lab work chest x-ray obtained. Given dose of nitroglycerin sublingual shows chronic changes by my interpretation with no acute disease. Lab work shows no significant acute abnormalities including negative troponin. Patient was given 2 nitroglycerin and did get nauseous and vomited. On reevaluation she is feeling better but still has some mild persistent symptoms. Have a low suspicion for PE or dissection. Do not feel she needs a CT angio of the chest. The patient's heart score is a 4. This puts her at moderate risk. Discussed with the hospitalist will be admitted ED Disposition - Plan for ED Patient: Disposition: Acute Care Hospital [facility] Diagnosis: Chest pain
--- NOTE | 2020-08-12 01:46 | RAD_ITS ---
STUDY: X-RAY CHEST REASON FOR EXAM: Female, 69 years old. chest pain TECHNIQUE: Single AP portable view of the chest. COMPARISON: 07/25/2018. FINDINGS: The lungs are clear and underexpanded. There is no demonstrated pleural abnormality. Normal size heart. Normal mediastinum and ankita. Normal visualized pulmonary arteries. There is atherosclerotic calcification of the aortic arch with tortuosity. Normal visualized thoracic spine. Normal visualized ribs, clavicles, and shoulders. There is no demonstrated abnormality of the visualized soft tissue structures of the upper abdomen. RAD/Chest 1 View (Portable) IMPRESSION: No acute cardiopulmonary disease. Electronically Signed: Quita Ybarra MD at 2:28 EDT , Service support ,
[2020-08-12 01:53] LABS: Absolute Lymphocyte Count 3.33 X10^3/uL (0.83-4.51); Absolute Neutrophil Count 5.7 X10^3/uL (2.0-7.7); Basophil# 0.05 X10^3/uL; Basophil% 0.5 % (0-1); Differential Indicated SCAN CRITERIA MET; Eosinophil# 0.18 X10^3/uL; Eosinophils% 1.7 % (0-5); Hematocrit 42.4 % (37-47); Hemoglobin 13.2 g/dL (12.0-15.0); Lymphocyte # 3.33 X10^3/ul (4.0); Lymphocyte % 30.7 % (19-41); Mean Corp Hgb Conc 31.1 g/dL (32-36); Mean Corpuscular Volume 93.2 fL (81-99); Mean Platelet Vol. 11.1 fl (6.2-12.0); Monocyte# 1.51 X10^3/uL; Monocyte% 13.9 % (0-10); NRBC Flagged by Analyzer 0 % (0-5); Neutrophil # 5.74 X10^3/uL (2.7-7.7); Neutrophil % 52.8 % (47-70); POSITIVE DIFFERENTIAL YES; Platelet Count 277 K/mm3 (150-450); RBC Distribution Width SD 41.3 fl (35.1-43.9); Red Blood Count 4.55 M/mm3 (4.2-5.4); White Blood Count 10.9 K/mm3 (4.4-11.0)
[2020-08-12 02:06] LABS: Anion Gap 6 (5-15); BUN 9 mg/dL (7-18); BUN/Creat Ratio 9.3 RATIO (10-20); Calcium,Total 9.2 mg/dL (8.5-10.1); Chloride 101 mmol/L (98-107); Creatinine, Serum 0.96 mg/dL (0.55-1.02); EST Glomerular Filtration Rate 60 mL/min (>60); Est Glom Filt Rate - Afr Amer 73 mL/min (>60); Estimated Creatinine Clearance 46.41 ml/min; Glucose 101 mg/dL (74-106); Potassium 3.7 mmol/L (3.5-5.1); Sodium Level 137 mmol/L (136-145)
[2020-08-12] MEDS: Nitroglycerin SL (ED/IMG/CATH) 0.4 MG TABLET SL ×2 (02:18→02:23)
[2020-08-12] MEDS: Ondansetron 4 MG/2 ML Vial IV (02:44)
--- NOTE | 2020-08-12 03:06 | PCM.HP.STD ---
Problem List (1) Chest pain Status: Acute Qualifiers: Chest pain type: unspecified Qualified Code(s): R07.9 - Chest pain, unspecified (2) Anxiety and depression Status: Chronic (3) Hyperlipidemia Status: Chronic Qualifiers: Hyperlipidemia type: unspecified Qualified Code(s): E78.5 - Hyperlipidemia, unspecified (4) Obesity (BMI 30.0-34.9) Status: Chronic (5) Schizophrenia Status: Chronic Qualifiers: Schizophrenia type: unspecified Qualified Code(s): F20.9 - Schizophrenia, unspecified (6) Hypothyroidism Status: Chronic Qualifiers: Hypothyroidism type: unspecified Qualified Code(s): E03.9 - Hypothyroidism, unspecified (7) GERD (gastroesophageal reflux disease) Status: Chronic Qualifiers: Esophagitis presence: esophagitis presence not specified Qualified Code(s): K21.9 - Gastro-esophageal reflux disease without esophagitis History of Present Illness Date of Admission: 08/12/20 Chief Complaint: Chest pain The patient is a 69 y/o F w/ PMHx: IBS, Hypothyroidism, OA, Obesity, GERD, Anxiety and Depression/Schizophrenia who presents to the [facility] ED on 08/12/20 with history of onset of substernal chest discomfort described as a tightness approximately 2 hours prior to ED presentation with nausea with no emesis, diaphoresis or dyspnea with self administration of aspirin with last stress testing approximately 2 years prior to current presentation noted be negative at that time prompting ED presentation. She does note worse with end of specifically a deep breath. Patient in the ED administered nitroglycerin x2 with eventual mild nausea with episode of emesis in the ED but following this noted improvement in her symptoms. She did have transient low BP related to the NG administration. In the emergency room patient does report that her chest pain was initially 9 out of 10 in severity at its worse and now she rates it as 2 out of 10. Work-up in the ED included T 98.1, heart rate 75, BP initially 190/93, respiratory rate 16, 94% on room air with most recent vitals heart rate 77, BP 134/76, respiratory rate 16, 95% on 2 L nasal cannula, CBC with WC 10.9, hemoglobin 13.2, platelet 277 without marked shift, BMP unremarkable troponin less than 0.015, chest x-ray with no acute cardiopulmonary findings, EKG was sinus rhythm with no acute evidence of ischemia with T wave inversion in the inferior leads, 3 as well as V1 and V2 unchanged from prior. In the ED patient ministered Zofran, nitroglycerin. Past Medical History Past Medical History (Chronic Problems): Chronic Problems (Last Reviewed 12/12/19 @ 12:10 by Roberta Wang) Anxiety and depression (Chronic) Hyperlipidemia (Chronic) Obesity (BMI 30.0-34.9) (Chronic) Schizophrenia (Chronic) Hypothyroidism (Chronic) Colon polyps (Chronic) last colonscopy was [address] Ventura Weight loss, non-intentional (Chronic) 50-60 lbs over the past 6 months. Pt states she has no appetite Rheumatoid arthritis (Chronic) GERD (gastroesophageal reflux disease) (Chronic) Medical History: Medical History (Last Reviewed 12/12/19 @ 12:10 by Roberta Wang) Arthritis M19.90 Cataracts, bilateral H26.9 Hemorrhoids K64.9 IBS (irritable bowel syndrome) K58.9 Osteoarthritis M19.90 Thyroid disease E07.9 Allergies linaclotide [From Linzess] Allergy (Mild, Verified 08/12/20 01:32) chest tightness histamine phosphate [From Histatrol] Allergy (Verified 08/12/20 01:32) Unknown Home Medications: Ambulatory Orders Medication Instructions Recorded Levothyroxine [Synthroid] 88 mcg PO DAILY 08/21/13 Omeprazole [Prilosec] 40 mg PO DAILY 08/21/13 Paroxetine HCl [Paxil] 40 mg PO DAILY 03/22/17 Potassium 20 mg PO BID 03/22/17 Pravastatin [Pravachol] 40 mg PO QHS 03/22/17 Doxepin HCl 10 mg PO DAILY 07/25/18 Multivitamin with Minerals [Hair, 1 tab PO DAILY 07/26/18 Skin and Nails] Surgical History: Surgical History (Last Reviewed 12/12/19 @ 12:10 by Roberta Wang) History of knee replacement Z96.659 History of tubal ligation Z98.51 Surgical History: tonsillectomy, - - Tubal ligation, colon polyp removal via a colonoscope. 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: No pertinent DANCER OR CHOREOGRAPHER history, - - Patient states that the last time she was referred for a pelvic exam and Pap smear she was told by the physician that she was not a candidate for this because they could not do it but she does not know why Lives: Spouse/ Significant Other Smoking Status: Never smoker Tobacco Use: Non-smoker Alcohol: None Drugs: None - *Family History Maternal Family History: Family History (Last Reviewed 12/12/19 @ 12:10 by Roberta Wang) Other Heart disease History Items: Heart Disease Paternal Family History: Family History (Last Reviewed 12/12/19 @ 12:10 by Roberta Wang) Other Heart disease History Items: Heart Disease Sibling Family History: Family History (Last Reviewed 12/12/19 @ 12:10 by Roberta Wang) Other Heart disease History Items: - - She has a brother who has heart disease. Review of Systems Constitutional: Reports: Malaise, Fatigue. Denies: Anorexia, Chills, Fever, Weakness, Weight Change HEENT: Denies: Head Aches, Sinus Congestion, Sinus Drainage Cardiovascular: Reports: Chest Pain, Chest Tightness. Denies: Chest Pressure, Light Headedness, Orthopnea, Palpitations, Syncope Respiratory: Denies: Cough, Shortness of Breath, Shortness of breath at rest, Shortness of breath upon exertion, Sputum production Gastrointestinal: Reports: Constipation, Diarrhea, Nausea, Vomiting. Denies: Abdominal Pain Genitourinary: Denies: Dysuria Musculoskeletal: Reports: Joint Pain. Denies: Joint Tenderness Skin: Denies: Rash, Wounds Neurological: Denies: Numbness, Tingling, Focal weakness Psychiatric: Reports: Anxiety, Depression. Denies: Homicidal Ideations, Suicidal Ideations Hematologic/ Lymphatic: Denies: Easy Bruising, Easy Bleeding VTE Information - Inpt Only VTE Present on Admission: No VTE Mechan Device Prophylaxis: SCD's VTE Pharm Prophylaxis ordered?: Yes Patient Problems: Active and Suspected Problems (Last Reviewed 12/12/19 @ 12:10 by Roberta Wang) Segmental and somatic dysfunction of pelvic region (Acute) Segmental and somatic dysfunction of lumbar region (Acute) Chest pain (Acute) Sinusitis (Acute) Hypokalemia (Acute) Hyponatremia (Acute) Gastroenteritis and colitis, viral (Acute) Subjective: Patient seated upright in the ED bed, fatigued appearance, notes chest pain improving, currently 2 out of 10. Objective: Physical Examination: General: awake, alert, oriented x 3 and cooperative, seated upright in the ED bed in no apparent distress, chest pain improving, currently 2 out of 10. Skin: normal color, turgor, no icterus, cyanosis. HEENT: AT/NC, EOMI, PERRLA, mildly dry MM, no carotid bruits or JVD noted. Lungs: CTA bilaterally, moderate effort, mild decrease BL bases, no rales, ronchi or wheezing. Heart: Regular rate and rhythm; no gallop, rub audible. Abdomen: soft, obese, NTTP, ND, normal BS, no HSM. Extremities: no cyanosis, clubbing, or edema. Neurological: patient awake, alert, oriented as noted; cognitive function intact; pupils equally reactive to light and accomodation; cranial nerves II-XII grossly normal, moving all 4 extremities, no focal deficits, strength preserved. Psychiatric: affect appears mildly fatigued, mildly flat, no acute evidence of depressive or anxiety feelings. - Physical Exam Vitals/I&O's: Vital Signs Temp Pulse Resp BP Pulse Ox 98.1 F 77 16 134/76 H 95 08/12/20 01:28 08/12/20 02:46 08/12/20 02:46 08/12/20 02:46 08/12/20 02:46 Oxygen Flow Rate (L/min) 2 Oxygen Delivery Method Nasal Cannula Weight: 193 lb 5.526 oz Body Mass Index (BMI) 33.2 Laboratory Results 08/12/20 01:40: WBC 10.9, RBC 4.55, Hgb 13.2, Hct 42.4, MCV 93.2, MCH 29.0, MCHC 31.1 L, RDW Std Deviation 41.3, RDW Coeff of Edwar 12.0, Plt Count 277, MPV 11.1, Immature Gran % (Auto) 0.400, Neut % (Auto) 52.8, Lymph % (Auto) 30.7, [place] % (Auto) 13.9 H, Eos % (Auto) 1.7, Baso % (Auto) 0.5, Absolute Neuts (auto) 5.7, Absolute Lymphs (auto) 3.33, Nucleated RBC % 0 08/12/20 01:40: Sodium 137, Potassium 3.7, Chloride 101, Carbon Dioxide 30.0, Anion Gap 6, BUN 9, Creatinine 0.96, Estim Creat Clear Calc 46.41, Est GFR (MDRD) Af Amer 73, Est GFR (MDRD) Non-Af 60, BUN/Creatinine Ratio 9.3 L, Glucose 101, Calcium 9.2, Troponin I < 0.015 Current Medications Nitroglycerin (Nitroglycerin Sl (Ed/Img/Cath) 0.4 Mg Tablet) 0.4 mg SL Q5M PRN PRN Reason: Chest pain Last Admin: 08/12/20 02:23 Dose: 0.4 mg Documented by: Assessment/Plan All Active Problems (Last Reviewed 12/12/19 @ 12:10 by Roberta Wang) Segmental and somatic dysfunction of pelvic region (Acute) Segmental and somatic dysfunction of lumbar region (Acute) Chest pain (Acute) Sinusitis (Acute) Hypokalemia (Acute) Hyponatremia (Acute) Gastroenteritis and colitis, viral (Acute) The patient is a 69 y/o F w/ PMHx: IBS with intermittent diarrhea, Hypothyroidism, OA, Obesity, GERD, Anxiety and Depression/Schizophrenia who presents to the [facility] ED on 08/12/20 with history of onset of substernal chest discomfort described as a tightness approximately 2 hours prior to ED presentation with self administration of aspirin. 1. Chest Pain: EKG in ED EKG was sinus rhythm with no acute evidence of ischemia with T wave inversion in the inferior leads, 3 as well as V1 and V2 unchanged from prior, CXR w/ no acute cardiopulmonary findings, initial trop less than 0.015. Will admit to PCU, place on a monitored bed to assure no acute myocardial infarction with serial cardiac enzymes and EKGs. If repeat cardiac enzymes and EKGs remain unremarkable will pursue a.m. cardiac stress testing. Magnesium level requested. FLP in AM. ASA, NG, morphine. 2. Elevated BP without hypertensive diagnosis: Upon initial presentation BP significantly elevated, has improved with transient ALT decreased following nitroglycerin of note, as needed IV hydralazine 3. Anxiety and depression/Schizophrenia: We will continue patient home Paxil regimen. 4. Hyperlipidemia: Continue home statin regimen. AM FLP. 5. Hypothyroidism: Continue home synthroid regimen. 6. Obesity: Weight loss and lifestyle changes encouraged. 7. GERD: We will maintain home PPI. 8. DVT prophylaxis: SCDs, Lovenox. OBSV E&M: [id number] Initial observation care L3
--- NOTE | 2020-08-12 03:52 | EKG12_ITS ---
Test Reason : CP ADMISSION Blood Pressure : / mmHG Vent. Rate : 067 BPM Atrial Rate : 067 BPM P-R Int : 178 ms QRS Dur : 096 ms QT Int : 442 ms P-R-T Axes : 015 004 033 degrees QTc Int : 467 ms Normal sinus rhythm Normal ECG When compared with ECG of 26-JUL-2018 00:33, No significant change was found Confirmed by NUNU SHAH, HONG ([id number]), film editor supervisor CHELSEY KRUSE ([id number]) on 08/13/2020 12:42:41 PM Referred By: SHAWN Confirmed By:LIBERTAD EDDY MD
[2020-08-12] MEDS: 0.9% Normal Saline 1,000 ML 100 ML IV ×2 (04:34→13:48)
[2020-08-12 05:08] LABS: Absolute Lymphocyte Count 2.48 X10^3/uL (0.83-4.51); Absolute Neutrophil Count 5.1 X10^3/uL (2.0-7.7); Basophil# 0.07 X10^3/uL; Basophil% 0.8 % (0-1); Eosinophil# 0.19 X10^3/uL; Eosinophils% 2.1 % (0-5); Hematocrit 45.2 % (37-47); Hemoglobin 13.4 g/dL (12.0-15.0); Lymphocyte # 2.48 X10^3/ul (4.0); Lymphocyte % 26.8 % (19-41); Mean Corp Hgb Conc 29.6 g/dL (32-36); Mean Corpuscular Volume 97.8 fL (81-99); Mean Platelet Vol. 10.8 fl (6.2-12.0); Monocyte# 1.37 X10^3/uL; Monocyte% 14.8 % (0-10); NRBC Flagged by Analyzer 0 % (0-5); Neutrophil # 5.08 X10^3/uL (2.7-7.7); Neutrophil % 54.9 % (47-70); Platelet Count 260 K/mm3 (150-450); RBC Distribution Width SD 43.4 fl (35.1-43.9); Red Blood Count 4.62 M/mm3 (4.2-5.4); White Blood Count 9.3 K/mm3 (4.4-11.0)
[2020-08-12 05:26] LABS: ALB/GLOB Ratio 0.9 RATIO (0.9-2.4); AST(SGOT) 27 U/L (15-37); Alanine Aminotransfer ALT/SGPT 29 U/L (13-56); Albumin, Serum 3.5 g/dL (3.2-5.0); Alkaline Phosphatase 134 U/L (45-117); Anion Gap 8 (5-15); BUN 8 mg/dL (7-18); BUN/Creat Ratio 8.8 RATIO (10-20); Calcium,Total 9.2 mg/dL (8.5-10.1); Chloride 103 mmol/L (98-107); Cholesterol 168 mg/dL (200); Creatinine, Serum 0.91 mg/dL (0.55-1.02); EST Glomerular Filtration Rate 64 mL/min (>60); Est Glom Filt Rate - Afr Amer 78 mL/min (>60); Estimated Creatinine Clearance 48.96 ml/min; Globulin 3.9 g/dL (2.2-4.2); Glucose 98 mg/dL (74-106); High Density Lipoprotein 66 mg/dL; Potassium 3.9 mmol/L (3.5-5.1); Protein, Total 7.4 g/dL (6.4-8.2); Sodium Level 139 mmol/L (136-145); Triglycerides 105 mg/dL; Very Low Density Lipoprotein 21 mg/dL (5-40)
[2020-08-12] MEDS: Pantoprazole Sodium 40 MG Tablet PO (06:23)
[2020-08-12] MEDS: Levothyroxine 88 MCG Tablet PO (06:23)
[2020-08-12] MEDS: Aspirin E.C. 81 MG Tablet PO (06:23)
[2020-08-12] MEDS: Potassium Chloride Oral Tablet 20 MEQ PO (10:45)
[2020-08-12] MEDS: Enoxaparin 40 MG/0.4 ML Syringe SC (10:48)
[2020-08-12] MEDS: Doxepin Hydrochloride 10 MG Capsule PO (10:48)
[2020-08-12] MEDS: Paroxetine 20 MG Tablet 40 MG PO (10:48)
[2020-08-12] MEDS: Hydroxychloroquine 200 MG Tablet PO (10:48)
--- NOTE | 2020-08-12 13:37 | STRESSREP_ITS ---
Stress Test Report Pharmacologic myocardial perfusion stress test. 69-year-old lady with a history of chest pain. Medications aspirin Lovenox Plaquenil melatonin. Stress protocol: Resting EKG demonstrates normal sinus rhythm with a rate of 74 bpm normal intervals are noted resting blood pressure is 148/86 mmHg. The patient exercised according to regular Patrick protocol for a total duration of 3 minutes and 30 seconds. The maximum heart rate attained was 144 bpm which was 96% of maximum predicted heart rate the maximum workload was 5.2 metabolic equivalents. At rest there were no ST or T wave changes noted to suggest ischemia at peak exercise upsloping ST changes only were noted we did not meet the criteria for ischemia. The test was terminated due to dyspnea and minimal chest discomfort. The peak blood pressure was 164/88 mmHg. Myocardial perfusion protocol. 14.3 mCi of technetium 99m sestamibi was injected at rest. The patient exercise d according to regular Patrcik protocol for 3 minutes and 30 seconds at peak exercise 43.6 mCi of technetium 99m sestamibi was injected stress images were obtained stress and rest images were reconstructed and compared in the short axis vertical long horizontal long axis. Gated images were also obtained Perfusion SPECT analysis: Review of the stress images demonstrate normal uptake of tracer noted in all areas of the myocardium the resting images similarly demonstrate normal uptake of tracer noted in all areas of the myocardium. No areas of reversibility are noted to suggest ischemia and no previous infarct is noted. Gated SPECT analysis: The gated ejection fraction is over 90%. Conclusion: Normal exercise myocardial perfusion stress test at a low to moderate workload. Preserved ejection fraction.
--- NOTE | 2020-08-12 15:14 | DCINST_ITS ---
- Discharge Diagnoses Current Active Problems: Current Active and Chronic Problems (Last Reviewed 12/12/19 @ 12:10 by Roberta Wang) Anxiety and depression (Chronic) Hyperlipidemia (Chronic) Obesity (BMI 30.0-34.9) (Chronic) Segmental and somatic dysfunction of pelvic region (Acute) Segmental and somatic dysfunction of lumbar region (Acute) Chest pain (Acute) Sinusitis (Acute) Schizophrenia (Chronic) Hypothyroidism (Chronic) Colon polyps (Chronic) last colonscopy was [address] Ventura Weight loss, non-intentional (Chronic) 50-60 lbs over the past 6 months. Pt states she has no appetite Rheumatoid arthritis (Chronic) Hypokalemia (Acute) GERD (gastroesophageal reflux disease) (Chronic) Hyponatremia (Acute) Gastroenteritis and colitis, viral (Acute) You will use the following diet at home:: Cardiac Your food should be the consistency of: Regular Your liquids should be the consistency of: Regular/Thin Discharge Activity: Return to Normal Activity Allergies/Adverse Reactions: Allergies linaclotide [From Linzess] Allergy (Mild, Verified 08/12/20 01:32) chest tightness histamine phosphate [From Histatrol] Allergy (Verified 08/12/20 01:32) Unknown Medications to take at Discharge Levothyroxine [Synthroid] 88 mcg PO DAILY 08/21/13 Omeprazole [Prilosec] 40 mg PO DAILY 08/21/13 Paroxetine HCl [Paxil] 40 mg PO DAILY 03/22/17 Potassium 20 mg PO BID 03/22/17 Pravastatin [Pravachol] 40 mg PO QHS 03/22/17 Doxepin HCl 10 mg PO DAILY 07/25/18 Multivitamin with Minerals [Hair, Skin and Nails] 1 tab PO DAILY 07/26/18 Hydroxychloroquine Sulfate [Plaquenil] 200 mg PO BID 08/12/20 Primary Care Physician: Raji Herrmann Chi, MD [Primary Care Provider] - Please follow up with your Primary Care Physician in: As needed Test Results: Test results from this visit will be discussed in further detail at your follow- up appointment, if applicable.
--- NOTE | 2020-08-12 15:17 | DS.PCM_ITS ---
Discharge Date and Diagnosis - Problem List Patient Problems: Active and Suspected Problems (Last Reviewed 12/12/19 @ 12:10 by Roberta Wang) Segmental and somatic dysfunction of pelvic region (Acute) Segmental and somatic dysfunction of lumbar region (Acute) Chest pain (Acute) Sinusitis (Acute) Hypokalemia (Acute) Hyponatremia (Acute) Gastroenteritis and colitis, viral (Acute) Date of Admission: 08/12/20 Date of Discharge: 08/12/20 - Primary Discharge Diagnosis Acute Problems: Active Problems (Last Reviewed 12/12/19 @ 12:10 by Roberta Wang) Segmental and somatic dysfunction of pelvic region (Acute) Segmental and somatic dysfunction of lumbar region (Acute) Chest pain (Acute) Sinusitis (Acute) Hypokalemia (Acute) Hyponatremia (Acute) Gastroenteritis and colitis, viral (Acute) - Secondary Discharge Diagnosis Chronic Problems: Chronic Problems (Last Reviewed 12/12/19 @ 12:10 by Roberta Wang) Anxiety and depression (Chronic) Hyperlipidemia (Chronic) Obesity (BMI 30.0-34.9) (Chronic) Schizophrenia (Chronic) Hypothyroidism (Chronic) Colon polyps (Chronic) last colonscopy was [address] Ventura Weight loss, non-intentional (Chronic) 50-60 lbs over the past 6 months. Pt states she has no appetite Rheumatoid arthritis (Chronic) GERD (gastroesophageal reflux disease) (Chronic) Hospital Course and Treatment Imaging Results: Stress Test Report Pharmacologic myocardial perfusion stress test. 69-year-old lady with a history of chest pain. Medications aspirin Lovenox Plaquenil melatonin. Stress protocol: Resting EKG demonstrates normal sinus rhythm with a rate of 74 bpm normal intervals are noted resting blood pressure is 148/86 mmHg. The patient exercised according to regular Patrick protocol for a total duration of 3 minutes and 30 seconds. The maximum heart rate attained was 144 bpm which was 96% of maximum predicted heart rate the maximum workload was 5.2 metabolic equivalents. At rest there were no ST or T wave changes noted to suggest ischemia at peak exercise upsloping ST changes only were noted we did not meet the criteria for ischemia. The test was terminated due to dyspnea and minimal chest discomfort. The peak blood pressure was 164/88 mmHg. Myocardial perfusion protocol. 14.3 mCi of technetium 99m sestamibi was injected at rest. The patient exercised according to regular Patrick protocol for 3 minutes and 30 seconds at peak exercise 43.6 mCi of technetium 99m sestamibi was injected stress images were obtained stress and rest images were reconstructed and compared in the short axis vertical long horizontal long axis. Gated images were also obtained Perfusion SPECT analysis: Review of the stress images demonstrate normal uptake of tracer noted in all areas of the myocardium the resting images similarly demonstrate normal uptake of tracer noted in all areas of the myocardium. No areas of reversibility are noted to suggest ischemia and no previous infarct is noted. Gated SPECT analysis: The gated ejection fraction is over 90%. Conclusion: Normal exercise myocardial perfusion stress test at a low to moderate workload. Preserved ejection fraction. _ STUDY: X-RAY CHEST REASON FOR EXAM: Female, 69 years old. chest pain TECHNIQUE: Single AP portable view of the chest. COMPARISON: 07/25/2018. FINDINGS: The lungs are clear and underexpanded. There is no demonstrated pleural abnormality. Normal size heart. Normal mediastinum and ankita. Normal visualized pulmonary arteries. There is atherosclerotic calcification of the aortic arch with tortuosity. Normal visualized thoracic spine. Normal visualized ribs, clavicles, and shoulders. There is no demonstrated abnormality of the visualized soft tissue structures of the upper abdomen. RAD/Chest 1 View (Portable) IMPRESSION: No acute cardiopulmonary disease. None Operations: None Procedures: Stress test Summary of Care Provided: Mrs. Mora is a 69 year old WF who presented to the emergency department at [facility] 08/12/2020 complaining of chest pain. She has a past medical history of IBS, hypothyroidism, OA, obesity, GERD, anxiety, depression, schizophrenia and is on Plaquenil for an unknown etiology. Upon admission she complained of substernal chest pain/discomfort that she described as tightness that occurred approximately 2 hours prior to presentation to the emergency department. She had nausea associated with this but no emesis diaphoresis or dyspnea. She did note in the emergency department that she did have increased pain specifically with deep breathing. She was given 2 nitroglycerin tablets in the emergency department and had nausea with one episode of emesis after the nitro was given she reported her chest pain intensity is 9 out of 10 at worst but was 2 out of 10 when she was evaluated by the hospitalist for admission. Her vital signs in the emergency department other than some hypertension were within normal limits her CBC and BMP were unremarkable. Her cardiac enzymes were cycled and never elevated. Her chest x- ray showed no acute pulmonary process. Her EKG showed normal sinus rhythm with no evidence of acute ST or T wave changes but she did have T wave inversion in the inferior leads as well as V1 and V2 that were unchanged from previous EKG findings. She was admitted to PCU clear stress test was done on 08/12/2020 and showed a normal exercise myocardial perfusion stress test with a low to moderate workload of and a preserved ejection fraction. Upon reevaluation the patient she had no further chest pain during her hospital course. She did note that she had discomfort when she pressed on her chest centrally. Upon my evaluation appeared she had tenderness at the costochondral junctions and she indicated that this was similar to the pain she had previously. I suspect she may have some mild costochondritis at this point. Her cholesterol was assessed. Total cholesterol was 168, LDL was 81, HDL was 66, and her triglycerides were 105. She was sent home with no medication changes and instructed to follow-up with her primary care physician on an as-needed basis. Discharge diagnoses Chest pain Hyperlipidemia Hypothyroidism Schizophrenia Depression Anxiety GERD Obesity Suspected costochondritis Discharge time greater than 35 minutes Patient Problems: Active and Suspected Problems (Last Reviewed 12/12/19 @ 12:10 by Roberta Wang) Segmental and somatic dysfunction of pelvic region (Acute) Segmental and somatic dysfunction of lumbar region (Acute) Chest pain (Acute) Sinusitis (Acute) Hypokalemia (Acute) Hyponatremia (Acute) Gastroenteritis and colitis, viral (Acute) - Physical Exam Vitals/I&O's: Vital Signs Temp Pulse Resp BP Pulse Ox 97.0 F L 79 18 141/78 H 92 08/12/20 11:53 08/12/20 15:00 08/12/20 13:54 08/12/20 11:53 08/12/20 13:54 Oxygen Flow Rate (L/min) 2 Oxygen Delivery Method Room Air Weight: 86.6 kg Body Mass Index (BMI) 32.6 Intake and Output for Last 24 Hours 08/10/20 08/11/20 08/12/20 23:59 23:59 23:59 Intake Total 1073.33 / 1073.33 Balance 1073.33 / 1073.33 General: Alert, Oriented x3, Cooperative, No apparent distress, Well developed, Well nourished, - - Patient is sitting up in bed, appears comfortable, nontoxic- appearing, at bedside HEENT: Atraumatic, PERRLA, EOMI, Normocephalic Oral: Moist Mucosa, No Gingival or Mucosal Lesions/ Ulcerations, - - Dentures in place, Mallampati 3 Neck: Supple, No JVD, Negative Carotid Bruits, Negative Hepatojugular Reflux, No Nodes, No Nuchal Rigidity, Trachea Midline, Thyroid Normal Size and Texture Lungs: Clear to auscultation, Normal air movement, No rhonchi, No wheeze, No rales Cardiovascular: Regular rate, Regular Rhythm, Normal S1, Normal S2, No murmurs, No Ectopic Activity, No rub noted, No Gallop Abdomen: Bowel Sounds Present, Soft, Non Tender, Non-Distended, Obese Extremities: No clubbing, No cyanosis, No edema, Capillary Refill Less than 3 Seconds, Peripheral Pulses Normal Skin: No rashes, No breakdown Musculoskeletal: No Tenderness to Palpation of Joints or Extremities, No Muscle Wasting, Arthritic Changes Lymphatic: No Cervical, Supraclavicular, or Inguinal Adenopathy Neurological: Cranial nerves II-XII grossly intact, Neuro grossly intact, Muscle tone normal, Coordination normal Psych/Mental Status: Normal Affect, Appropriate Laboratory Results 08/12/20 01:40: WBC 10.9, RBC 4.55, Hgb 13.2, Hct 42.4, MCV 93.2, MCH 29.0, MCHC 31.1 L, RDW Std Deviation 41.3, RDW Coeff of Edwar 12.0, Plt Count 277, MPV 11.1, Immature Gran % (Auto) 0.400, Neut % (Auto) 52.8, Lymph % (Auto) 30.7, [place] % (Auto) 13.9 H, Eos % (Auto) 1.7, Baso % (Auto) 0.5, Absolute Neuts (auto) 5.7, Absolute Lymphs (auto) 3.33, Nucleated RBC % 0 08/12/20 01:40: Sodium 137, Potassium 3.7, Chloride 101, Carbon Dioxide 30.0, Anion Gap 6, BUN 9, Creatinine 0.96, Estim Creat Clear Calc 46.41, Est GFR (MDRD) Af Amer 73, Est GFR (MDRD) Non-Af 60, BUN/Creatinine Ratio 9.3 L, Glucose 101, Calcium 9.2, Troponin I < 0.015 08/12/20 01:40: Magnesium 2.0 08/12/20 04:44: WBC 9.3, RBC 4.62, Hgb 13.4, Hct 45.2, MCV 97.8, MCH 29.0, MCHC 29.6 L, RDW Std Deviation 43.4, RDW Coeff of Edwar 12.0, Plt Count 260, MPV 10.8, Immature Gran % (Auto) 0.600, Neut % (Auto) 54.9, Lymph % (Auto) 26.8, [place] % (Auto) 14.8 H, Eos % (Auto) 2.1, Baso % (Auto) 0.8, Absolute Neuts (auto) 5.1, Absolute Lymphs (auto) 2.48, Nucleated RBC % 0 08/12/20 04:44: Sodium 139, Potassium 3.9, Chloride 103, Carbon Dioxide 28.0, Anion Gap 8, BUN 8, Creatinine 0.91, Estim Creat Clear Calc 48.96, Est GFR (MDRD) Af Amer 78, Est GFR (MDRD) Non-Af 64, BUN/Creatinine Ratio 8.8 L, Glucose 98, Calcium 9.2, Total Bilirubin 0.30, AST 27, ALT 29, Alkaline Phosphatase 134 H, Total Protein 7.4, Albumin 3.5, Globulin 3.9, Albumin/Globulin Ratio 0.9, Triglycerides 105, Cholesterol 168, LDL Cholesterol 81, VLDL Cholesterol 21, HDL Cholesterol 66 08/12/20 04:44: Troponin I < 0.015 08/12/20 07:20: Troponin I < 0.015 Current Medications Acetaminophen (Acetaminophen 325 Mg Tablet) 650 mg PO Q6H PRN PRN PRN Reason: Pain Score 1-10/Temp > 100.7 F Al Hydroxide/Mg Hydroxide (Mag Hydrox/Al Hydrox/Simeth 30 Ml Udc) 30 ml PO Q6H PRN PRN PRN Reason: Gastric Burning Albuterol Sulfate (Albuterol 2.5 Mg/3 Ml Vial.Neb.) 2.5 mg INHALATION Q2H PRN PRN PRN Reason: Dyspnea, wheezing Aspirin (Aspirin E.C. 81 Mg Tablet) 81 mg PO DAILY@0800 [facility] Last Admin: 08/12/20 06:23 Dose: 81 mg Documented by: Doxepin HCl (Doxepin Hydrochloride 10 Mg Capsule) 10 mg PO DAILY [facility] Last Admin: 08/12/20 10:48 Dose: 10 mg Documented by: Enoxaparin Sodium (Enoxaparin 40 Mg/0.4 Ml Syringe) 40 mg SC DAILY [facility] Last Admin: 08/12/20 10:48 Dose: 40 mg Documented by: Guaifenesin (Guaifenesin 10 Ml Udc (200mg/10ml)) 20 ml PO Q4H PRN PRN PRN Reason: COUGH Hydralazine HCl (Hydralazine 20 Mg/Ml Vial) 10 mg IV Q4H PRN PRN PRN Reason: SBP > 160 Hydroxychloroquine Sulfate (Hydroxychloroquine 200 Mg Tablet) 200 mg PO BIDCM [facility] Last Admin: 08/12/20 10:48 Dose: 200 mg Documented by: Sodium Chloride () 1,000 mls @ 100 mls/hr IV .Q10H [facility] Last Admin: 08/12/20 13:48 Dose: 100 mls/hr Documented by: Sodium Chloride () 250 mls @ 15 mls/hr IV .[id number] PRN PRN Reason: Saline Flush Sodium Chloride () 250 mls @ 15 mls/hr IV .[id number] PRN PRN Reason: Additional IVPB Infusion Levothyroxine Sodium (Levothyroxine 88 Mcg Tablet) 88 mcg PO DAILY@0600 [facility] Last Admin: 08/12/20 06:23 Dose: 88 mcg Documented by: Magnesium Hydroxide (Magnesium Hydroxide 30 Ml Udc) 30 ml PO DAILY PRN PRN PRN Reason: Constipation Melatonin (Melatonin 3 Mg Tablet) 3 mg PO QHS PRN PRN PRN Reason: INSOMNIA Morphine Sulfate (Morphine 2 Mg/Ml Syringe) 2 mg IV Q3H PRN PRN PRN Reason: Pain Score 6-10 Nitroglycerin (Nitroglycerin (Inpatient Use) 0.4 Mg Tab.Subl) 0.4 mg SL Q5M PRN PRN Reason: CARDIAC/CHEST PAIN Nutritional Formula (Lactose Free) (Ensure Enlive 120 Ml Liquid) 120 ml PO 4X/DAY [facility] Last Admin: 08/12/20 13:44 Dose: Not Given Documented by: Ondansetron HCl (Ondansetron 4 Mg/2 Ml Vial) 4 mg IV Q8H PRN PRN PRN Reason: NAUSEA/VOMITING Oxycodone HCl (Oxycodone 5 Mg Tablet) 5 mg PO Q4H PRN PRN PRN Reason: Pain Score 4-5 Pantoprazole Sodium (Pantoprazole Sodium 40 Mg Tablet) 40 mg PO DAILY [facility] Last Admin: 08/12/20 06:23 Dose: 40 mg Documented by: Paroxetine HCl (Paroxetine 20 Mg Tablet) 40 mg PO DAILY [facility] Last Admin: 08/12/20 10:48 Dose: 40 mg Documented by: Potassium Chloride (Potassium Chloride Oral Tablet 20 Meq) 20 meq PO BIDCM [facility] Last Admin: 08/12/20 10:45 Dose: 20 meq Documented by: Pravastatin Sodium (Pravastatin 40 Mg Tablet) 40 mg PO QHS [facility] Prochlorperazine Edisylate (Prochlorperazine 10 Mg/2 Ml Vial) 5 mg IV Q4H PRN PRN PRN Reason: Breakthrough Nausea/Vomiting Psyllium Hydrophilic Mucilloid (Psyllium 1 Packet) 1 packet PO DAILY PRN PRN PRN Reason: Constipation Senna/Docusate Sodium (Senna/Docusate Sodium 1 Tablet) 2 tablet PO BID PRN PRN PRN Reason: Constipation Sodium Chloride (0.9% Saline Lock 10 Ml Syringe) 10 - 40 ml IV UD PRN PRN Reason: SALINE FLUSH Throat Lozenges (Benzocaine/Menthol 1 Lozenge) 1 lozenge MUCOUS MEM Q2H PRN PRN PRN Reason: SORE THROAT Discharge Activity: Return to Normal Activity Home Medications: Medications to take at Discharge Levothyroxine [Synthroid] 88 mcg PO DAILY 08/21/13 Omeprazole [Prilosec] 40 mg PO DAILY 08/21/13 Paroxetine HCl [Paxil] 40 mg PO DAILY 03/22/17 Potassium 20 mg PO BID 03/22/17 Pravastatin [Pravachol] 40 mg PO QHS 03/22/17 Doxepin HCl 10 mg PO DAILY 07/25/18 Multivitamin with Minerals [Hair, Skin and Nails] 1 tab PO DAILY 07/26/18 Hydroxychloroquine Sulfate [Plaquenil] 200 mg PO BID 08/12/20 Primary Care Physician: Raji Herrmann Chi, MD [Primary Care Provider] - Please follow up with your Primary Care Physician in: As needed Medical Necessity - Tobacco Use Smoking Status: Never smoker Tobacco Use: Non-smoker Meaningful Use Info Meaningful Use Diagnoses (Choose all that apply): None applicable Inpatient E&M: 77715 [facility]
--- NOTE | 2020-08-12 15:24 | PHA.DC.MR ---
Pharmacy Service has performed discharge medication reconciliation for this patient. The patient's discharge medication list was reviewed for discrepancies and discrepancies were resolved. Home Medications Levothyroxine [Synthroid] 88 mcg PO DAILY 08/21/13 Omeprazole [Prilosec] 40 mg PO DAILY 08/21/13 Paroxetine HCl [Paxil] 40 mg PO DAILY 03/22/17 Potassium 20 mg PO BID 03/22/17 Pravastatin [Pravachol] 40 mg PO QHS 03/22/17 Doxepin HCl 10 mg PO DAILY 07/25/18 Multivitamin with Minerals [Hair, Skin and Nails] 1 tab PO DAILY 07/26/18 Hydroxychloroquine Sulfate [Plaquenil] 200 mg PO BID 08/12/20
== END 2020-08-12 15:15 | disposition home or self-care (01) ==
LOC: ED 03:02 → PCU 03:20
PROVIDERS: Admitting Provider Family Medicine; Emergency Provider Emergency Medicine; PCP Family Medicine Geriatric Medicine; Visit Provider Internal Medicine
DX: R07.89 Other chest pain (principal); M99.03 Segmental and somatic dysfunction of lumbar region; M99.05 Segmental and somatic dysfunction of pelvic region; K21.9 Gastro-esophageal reflux disease without esophagitis; E03.9 Hypothyroidism, unspecified; M06.9 Rheumatoid arthritis, unspecified; F20.9 Schizophrenia, unspecified; E78.5 Hyperlipidemia, unspecified; F32.9 Major depressive disorder, single episode, unspecified; F41.9 Anxiety disorder, unspecified; E66.9 Obesity, unspecified; K58.9 Irritable bowel syndrome, unspecified; M19.90 Unspecified osteoarthritis, unspecified site; Z79.899 Other long term (current) drug therapy; Z68.33 Body mass index [BMI] 33.0-33.9, adult; R03.0 Elevated blood-pressure reading, without diagnosis of hypertension; E87.6 Hypokalemia
CPT/HCPCS: 36415; 71045; 78452; 80048; 80053; 80061; 83735; 84484; 85025; 93005; 93017; 96361; 96372; 96374; 99218; 99251; 99285; A9500; J7030; A4216; G0378; G0463; J2405

== ENCOUNTER → 2020-08-14 12:18 | Outpatient (CLI) | payer MEDICARE, SELFPAY ==
[2020-08-12 04:02] VITALS: BMI 32.6
[2020-08-14 15:12] LABS: Absolute Lymphocyte Count 1.05 X10^3/uL (0.83-4.51); Absolute Neutrophil Count 8.4 X10^3/uL (2.0-7.7); Basophil# 0.04 X10^3/uL; Basophil% 0.4 % (0-1); Eosinophil# 0.16 X10^3/uL; Eosinophils% 1.5 % (0-5); Hematocrit 44.7 % (37-47); Hemoglobin 13.5 g/dL (12.0-15.0); Lymphocyte # 1.05 X10^3/ul (4.0); Lymphocyte % 9.5 % (19-41); Mean Corp Hgb Conc 30.2 g/dL (32-36); Mean Corpuscular Hgb 29.1 pg (27.0-32.0); Mean Corpuscular Volume 96.3 fL (81-99); Mean Platelet Vol. 11.6 fl (6.2-12.0); Monocyte# 1.27 X10^3/uL; Monocyte% 11.5 % (0-10); NRBC Flagged by Analyzer 0 % (0-5); Neutrophil % 76.3 % (47-70); Platelet Count 266 K/mm3 (150-450); RBC Distribution Width CV 12.3 % (11.6-14.6); RBC Distribution Width SD 43.6 fl (35.1-43.9); Red Blood Count 4.64 M/mm3 (4.2-5.4)
[2020-08-14 15:25] LABS: ALB/GLOB Ratio 0.9 RATIO (0.9-2.4); AST(SGOT) 35 U/L (15-37); Alanine Aminotransfer ALT/SGPT 37 U/L (13-56); Albumin, Serum 3.6 g/dL (3.2-5.0); Alkaline Phosphatase 136 U/L (45-117); Anion Gap 8 (5-15); BUN 5 mg/dL (7-18); BUN/Creat Ratio 5.9 RATIO (10-20); Calcium,Total 8.7 mg/dL (8.5-10.1); Chloride 102 mmol/L (98-107); Creatinine, Serum 0.85 mg/dL (0.55-1.02); EST Glomerular Filtration Rate 70 mL/min (>60); Est Glom Filt Rate - Afr Amer 84 mL/min (>60); Glucose 88 mg/dL (74-106); Potassium 3.4 mmol/L (3.5-5.1); Protein, Total 7.6 g/dL (6.4-8.2); Sodium Level 139 mmol/L (136-145)
== END ==
PROVIDERS: PCP Family Medicine Geriatric Medicine; Referring Provider Internal Medicine Rheumatology; Visit Provider Internal Medicine Rheumatology
DX: M06.4 Inflammatory polyarthropathy (principal); Z79.899 Other long term (current) drug therapy; M17.0 Bilateral primary osteoarthritis of knee; M47.897 Other spondylosis, lumbosacral region; K22.70 Barrett's esophagus without dysplasia; F32.9 Major depressive disorder, single episode, unspecified; E03.9 Hypothyroidism, unspecified; E78.5 Hyperlipidemia, unspecified
CPT/HCPCS: 36415; 80053; 85025

== ENCOUNTER → 2020-10-06 15:12 | Outpatient (CLI) | payer MEDICARE, SELFPAY ==
[2020-08-12 04:02] VITALS: BMI 32.6
[2020-10-06 17:30] LABS: Absolute Lymphocyte Count 2.52 X10^3/uL (0.83-4.51); Absolute Neutrophil Count 4.6 X10^3/uL (2.0-7.7); Basophil# 0.04 X10^3/uL; Basophil% 0.5 % (0-1); Eosinophil# 0.11 X10^3/uL; Eosinophils% 1.3 % (0-5); Hematocrit 41.8 % (37-47); Hemoglobin 13.1 g/dL (12.0-15.0); Lymphocyte # 2.52 X10^3/ul (0.83-4.51); Lymphocyte % 28.6 % (19-41); Mean Corp Hgb Conc 31.3 g/dL (32-36); Mean Corpuscular Hgb 28.8 pg (27.0-32.0); Mean Corpuscular Volume 91.9 fL (81-99); Mean Platelet Vol. 12.1 fl (6.2-12.0); Monocyte# 1.47 X10^3/uL; Monocyte% 16.7 % (0-10); NRBC Flagged by Analyzer 0 % (0-5); Neutrophil # 4.62 X10^3/uL (2.7-7.7); Neutrophil % 52.4 % (47-70); Platelet Count 270 K/mm3 (150-450); RBC Distribution Width CV 12.3 % (11.6-14.6); RBC Distribution Width SD 41.2 fl (35.1-43.9); Red Blood Count 4.55 M/mm3 (4.2-5.4); White Blood Count 8.8 K/mm3 (4.4-11.0)
[2020-10-06 18:15] LABS: ALB/GLOB Ratio 0.9 RATIO (0.9-2.4); AST(SGOT) 28 U/L (15-37); Alanine Aminotransfer ALT/SGPT 29 U/L (13-56); Albumin, Serum 3.6 g/dL (3.2-5.0); Alkaline Phosphatase 123 U/L (45-117); Anion Gap 8 (5-15); BUN 6 mg/dL (7-18); BUN/Creat Ratio 6.7 RATIO (10-20); Calcium,Total 8.9 mg/dL (8.5-10.1); Chloride 107 mmol/L (98-107); EST Glomerular Filtration Rate 66 mL/min (>60); Est Glom Filt Rate - Afr Amer 79 mL/min (>60); Glucose 103 mg/dL (74-106); Potassium 3.7 mmol/L (3.5-5.1); Protein, Total 7.6 g/dL (6.4-8.2); Sodium Level 140 mmol/L (136-145)
== END ==
PROVIDERS: PCP Family Medicine Geriatric Medicine; Referring Provider Internal Medicine Rheumatology; Visit Provider Internal Medicine Rheumatology
DX: M06.4 Inflammatory polyarthropathy (principal); Z79.899 Other long term (current) drug therapy; M17.0 Bilateral primary osteoarthritis of knee; M47.897 Other spondylosis, lumbosacral region; K22.70 Barrett's esophagus without dysplasia; F32.9 Major depressive disorder, single episode, unspecified; E03.9 Hypothyroidism, unspecified; E78.5 Hyperlipidemia, unspecified
CPT/HCPCS: 36415; 80053; 85025

== ENCOUNTER → 2020-10-21 14:35 | Outpatient (CLI) | payer MEDICARE, SELFPAY ==
[2020-08-12 04:02] VITALS: BMI 32.6
[2020-10-21 16:04] LABS: Absolute Lymphocyte Count 2.42 X10^3/uL (0.83-4.51); Absolute Neutrophil Count 4.2 X10^3/uL (2.0-7.7); Basophil# 0.05 X10^3/uL; Basophil% 0.6 % (0-1); Eosinophil# 0.11 X10^3/uL; Eosinophils% 1.3 % (0-5); Hematocrit 44.2 % (37-47); Hemoglobin 13.5 g/dL (12.0-15.0); Lymphocyte # 2.42 X10^3/ul (0.83-4.51); Lymphocyte % 29.5 % (19-41); Mean Corp Hgb Conc 30.5 g/dL (32-36); Mean Corpuscular Hgb 28.4 pg (27.0-32.0); Mean Corpuscular Volume 93.1 fL (81-99); Mean Platelet Vol. 11.9 fl (6.2-12.0); Monocyte# 1.34 X10^3/uL; Monocyte% 16.4 % (0-10); NRBC Flagged by Analyzer 0 % (0-5); Neutrophil # 4.22 X10^3/uL (2.7-7.7); Neutrophil % 51.6 % (47-70); Platelet Count 260 K/mm3 (150-450); RBC Distribution Width CV 12.1 % (11.6-14.6); RBC Distribution Width SD 41.9 fl (35.1-43.9); Red Blood Count 4.75 M/mm3 (4.2-5.4); White Blood Count 8.2 K/mm3 (4.4-11.0)
[2020-10-21 16:27] LABS: Vitamin D,25 Hydroxy 39.5 ng/mL
[2020-10-21 16:29] LABS: ALB/GLOB Ratio 0.9 RATIO (0.9-2.4); AST(SGOT) 28 U/L (15-37); Alanine Aminotransfer ALT/SGPT 28 U/L (13-56); Albumin, Serum 3.7 g/dL (3.2-5.0); Alkaline Phosphatase 118 U/L (45-117); Anion Gap 7 (5-15); BUN 6 mg/dL (7-18); BUN/Creat Ratio 6.6 RATIO (10-20); Calcium,Total 9.1 mg/dL (8.5-10.1); Chloride 103 mmol/L (98-107); Cholesterol 165 mg/dL (200); Creatinine, Serum 0.91 mg/dL (0.55-1.02); EST Glomerular Filtration Rate 65 mL/min (>60); Est Glom Filt Rate - Afr Amer 78 mL/min (>60); Glucose 83 mg/dL (74-106); High Density Lipoprotein 59 mg/dL; Potassium 3.8 mmol/L (3.5-5.1); Protein, Total 7.7 g/dL (6.4-8.2); Sodium Level 140 mmol/L (136-145); Thyroid Stim Hormone (TSH) 1.42 uIU/mL (0.358-3.74); Triglycerides 198 mg/dL; Very Low Density Lipoprotein 40 mg/dL (5-40)
== END ==
PROVIDERS: PCP Family Medicine Geriatric Medicine; Visit Provider Family Medicine Geriatric Medicine
DX: E55.9 Vitamin D deficiency, unspecified (principal); I10 Essential (primary) hypertension; N39.0 Urinary tract infection, site not specified
CPT/HCPCS: 36415; 80053; 80061; 82306; 84443; 85025; 87086; 87088

== ENCOUNTER → 2020-11-26 13:29 | Outpatient (CLI) | payer MEDICARE, SELFPAY ==
[2020-08-12 04:02] VITALS: BMI 32.6
[2020-11-26 14:59] LABS: Absolute Lymphocyte Count 2.19 X10^3/uL (0.83-4.51); Absolute Neutrophil Count 3.4 X10^3/uL (2.0-7.7); Basophil# 0.04 X10^3/uL; Basophil% 0.6 % (0-1); Eosinophil# 0.15 X10^3/uL; Eosinophils% 2.1 % (0-5); Lymphocyte # 2.19 X10^3/ul (0.83-4.51); Lymphocyte % 31.2 % (19-41); Mean Corp Hgb Conc 30.2 g/dL (32-36); Mean Corpuscular Volume 92.7 fL (81-99); Mean Platelet Vol. 12.2 fl (6.2-12.0); Monocyte# 1.21 X10^3/uL; Monocyte% 17.2 % (0-10); NRBC Flagged by Analyzer 0 % (0-5); Neutrophil # 3.38 X10^3/uL (2.7-7.7); Neutrophil % 48.2 % (47-70); Platelet Count 255 K/mm3 (150-450); RBC Distribution Width CV 12.2 % (11.6-14.6); RBC Distribution Width SD 41.1 fl (35.1-43.9); Red Blood Count 4.64 M/mm3 (4.2-5.4)
[2020-11-26 15:08] LABS: ALB/GLOB Ratio 0.9 RATIO (0.9-2.4); AST(SGOT) 31 U/L (15-37); Alanine Aminotransfer ALT/SGPT 26 U/L (13-56); Albumin, Serum 3.6 g/dL (3.2-5.0); Alkaline Phosphatase 113 U/L (45-117); Anion Gap 6 (5-15); BUN 5 mg/dL (7-18); BUN/Creat Ratio 5.7 RATIO (10-20); Calcium,Total 9.3 mg/dL (8.5-10.1); Chloride 104 mmol/L (98-107); Creatinine, Serum 0.88 mg/dL (0.55-1.02); EST Glomerular Filtration Rate 67 mL/min (>60); Est Glom Filt Rate - Afr Amer 81 mL/min (>60); Globulin 4.1 g/dL (2.2-4.2); Glucose 110 mg/dL (74-106); Potassium 3.7 mmol/L (3.5-5.1); Protein, Total 7.7 g/dL (6.4-8.2); Sodium Level 137 mmol/L (136-145)
== END ==
PROVIDERS: PCP Family Medicine Geriatric Medicine; Referring Provider Internal Medicine Rheumatology; Visit Provider Internal Medicine Rheumatology
DX: M06.4 Inflammatory polyarthropathy (principal); Z79.899 Other long term (current) drug therapy; M17.0 Bilateral primary osteoarthritis of knee; M47.897 Other spondylosis, lumbosacral region; K22.70 Barrett's esophagus without dysplasia; F32.9 Major depressive disorder, single episode, unspecified; E03.9 Hypothyroidism, unspecified; E78.5 Hyperlipidemia, unspecified
CPT/HCPCS: 36415; 80053; 85025

== ENCOUNTER → 2020-12-16 11:44 | Outpatient (CLI) | payer MEDICARE, SELFPAY ==
[2020-08-12 04:02] VITALS: BMI 32.6
[2020-12-16 12:08] LABS: Absolute Lymphocyte Count 1.63 X10^3/uL (0.83-4.51); Absolute Neutrophil Count 5.8 X10^3/uL (2.0-7.7); Basophil# 0.01 X10^3/uL; Basophil% 0.1 % (0-1); Eosinophil# 0.26 X10^3/uL; Eosinophils% 3.3 % (0-5); Hematocrit 40.6 % (37-47); Hemoglobin 12.7 g/dL (12.0-15.0); Lymphocyte # 1.63 X10^3/ul (0.83-4.51); Lymphocyte % 20.4 % (19-41); Mean Corp Hgb Conc 31.3 g/dL (32-36); Mean Corpuscular Hgb 28.2 pg (27.0-32.0); Monocyte# 0.21 X10^3/uL; Monocyte% 2.6 % (0-10); NRBC Flagged by Analyzer 0 % (0-5); Neutrophil # 5.81 X10^3/uL (2.7-7.7); Neutrophil % 72.7 % (47-70); POSITIVE MORPHOLOGY YES; Platelet Count 225 K/mm3 (150-450); RBC Distribution Width CV 12.1 % (11.6-14.6); RBC Distribution Width SD 39.4 fl (35.1-43.9); Red Blood Count 4.51 M/mm3 (4.2-5.4)
[2020-12-16 12:09] LABS: Differential Indicated SCAN CRITERIA MET
[2020-12-16 12:48] LABS: ALB/GLOB Ratio 0.8 RATIO (0.9-2.4); AST(SGOT) 38 U/L (15-37); Alanine Aminotransfer ALT/SGPT 33 U/L (13-56); Albumin, Serum 3.5 g/dL (3.2-5.0); Alkaline Phosphatase 111 U/L (45-117); Anion Gap 8 (5-15); BUN 5 mg/dL (7-18); BUN/Creat Ratio 6.1 RATIO (10-20); Calcium,Total 9.1 mg/dL (8.5-10.1); Chloride 104 mmol/L (98-107); Creatinine, Serum 0.82 mg/dL (0.55-1.02); EST Glomerular Filtration Rate 73 mL/min (>60); Est Glom Filt Rate - Afr Amer 88 mL/min (>60); Globulin 4.4 g/dL (2.2-4.2); Glucose 96 mg/dL (74-106); Potassium 3.5 mmol/L (3.5-5.1); Protein, Total 7.9 g/dL (6.4-8.2); Sodium Level 139 mmol/L (136-145)
== END ==
PROVIDERS: PCP Family Medicine Geriatric Medicine; Visit Provider Family Medicine Geriatric Medicine
DX: K12.1 Other forms of stomatitis (principal); N39.0 Urinary tract infection, site not specified
CPT/HCPCS: 36415; 80053; 85025; 87086; 87088

== ENCOUNTER → 2021-01-22 13:01 | Outpatient (CLI) | payer MEDICARE, SELFPAY | PROVIDERS: PCP Family Medicine Geriatric Medicine; Referring Provider Family Medicine Geriatric Medicine; Visit Provider Family Medicine Geriatric Medicine | DX: R68.83 Chills (without fever) (principal) | CPT/HCPCS: 87635; C9803; U0005; U0003 ==

== ENCOUNTER → 2021-02-01 12:22 | Outpatient (CLI) | payer MEDICARE, SELFPAY ==
[2021-02-01 15:01] LABS: Absolute Lymphocyte Count 2.39 X10^3/uL (0.83-4.51); Absolute Neutrophil Count 3.4 X10^3/uL (2.0-7.7); Basophil# 0.05 X10^3/uL; Basophil% 0.7 % (0-1); Eosinophil# 0.13 X10^3/uL; Eosinophils% 1.8 % (0-5); Hemoglobin 12.4 g/dL (12.0-15.0); Lymphocyte # 2.39 X10^3/ul (0.83-4.51); Lymphocyte % 33.3 % (19-41); Mean Corp Hgb Conc 31.8 g/dL (32-36); Mean Corpuscular Volume 91.1 fL (81-99); Mean Platelet Vol. 11.8 fl (6.2-12.0); Monocyte# 1.14 X10^3/uL; Monocyte% 15.9 % (0-10); NRBC Flagged by Analyzer 0 % (0-5); Neutrophil # 3.43 X10^3/uL (2.7-7.7); Neutrophil % 47.7 % (47-70); Platelet Count 259 K/mm3 (150-450); RBC Distribution Width CV 13.3 % (11.6-14.6); RBC Distribution Width SD 43.6 fl (35.1-43.9); Red Blood Count 4.28 M/mm3 (4.2-5.4); White Blood Count 7.2 K/mm3 (4.4-11.0)
[2021-02-01 15:31] LABS: ALB/GLOB Ratio 0.8 RATIO (0.9-2.4); AST(SGOT) 25 U/L (15-37); Alanine Aminotransfer ALT/SGPT 26 U/L (13-56); Albumin, Serum 3.4 g/dL (3.2-5.0); Alkaline Phosphatase 111 U/L (45-117); Anion Gap 6 (5-15); BUN 4 mg/dL (7-18); BUN/Creat Ratio 5.8 RATIO (10-20); Calcium,Total 8.9 mg/dL (8.5-10.1); Chloride 105 mmol/L (98-107); Creatinine, Serum 0.69 mg/dL (0.55-1.02); EST Glomerular Filtration Rate 88 mL/min (>60); Est Glom Filt Rate - Afr Amer 107 mL/min (>60); Glucose 107 mg/dL (74-106); Potassium 3.5 mmol/L (3.5-5.1); Protein, Total 7.4 g/dL (6.4-8.2); Sodium Level 138 mmol/L (136-145)
== END ==
LOC: LAB 12:24 → MTLAB 12:25
PROVIDERS: PCP Family Medicine Geriatric Medicine; Referring Provider Internal Medicine Rheumatology; Visit Provider Internal Medicine Rheumatology
DX: M06.4 Inflammatory polyarthropathy (principal); Z79.899 Other long term (current) drug therapy; M17.0 Bilateral primary osteoarthritis of knee; M47.897 Other spondylosis, lumbosacral region; K22.70 Barrett's esophagus without dysplasia; F32.9 Major depressive disorder, single episode, unspecified; E03.9 Hypothyroidism, unspecified; E78.5 Hyperlipidemia, unspecified
CPT/HCPCS: 36415; 80053; 85025

== ENCOUNTER → 2021-02-02 15:25 | Outpatient (CLI) | payer MEDICARE, SELFPAY ==
[2021-02-02 16:38] LABS: Absolute Lymphocyte Count 2.72 X10^3/uL (0.83-4.51); Absolute Neutrophil Count 3.9 X10^3/uL (2.0-7.7); Basophil# 0.04 X10^3/uL; Basophil% 0.5 % (0-1); Eosinophil# 0.13 X10^3/uL; Eosinophils% 1.6 % (0-5); Hematocrit 40.5 % (37-47); Hemoglobin 12.6 g/dL (12.0-15.0); Lymphocyte # 2.72 X10^3/ul (0.83-4.51); Lymphocyte % 33.1 % (19-41); Mean Corp Hgb Conc 31.1 g/dL (32-36); Mean Corpuscular Hgb 28.7 pg (27.0-32.0); Mean Corpuscular Volume 92.3 fL (81-99); Mean Platelet Vol. 11.7 fl (6.2-12.0); Monocyte# 1.42 X10^3/uL; Monocyte% 17.3 % (0-10); NRBC Flagged by Analyzer 0 % (0-5); Neutrophil # 3.85 X10^3/uL (2.7-7.7); Neutrophil % 46.9 % (47-70); Platelet Count 258 K/mm3 (150-450); RBC Distribution Width CV 13.4 % (11.6-14.6); RBC Distribution Width SD 44.9 fl (35.1-43.9); Red Blood Count 4.39 M/mm3 (4.2-5.4); White Blood Count 8.2 K/mm3 (4.4-11.0)
[2021-02-02 17:28] LABS: ALB/GLOB Ratio 0.9 RATIO (0.9-2.4); AST(SGOT) 34 U/L (15-37); Alanine Aminotransfer ALT/SGPT 30 U/L (13-56); Albumin, Serum 3.5 g/dL (3.2-5.0); Alkaline Phosphatase 118 U/L (45-117); Anion Gap 8 (5-15); BUN 5 mg/dL (7-18); BUN/Creat Ratio 6.9 RATIO (10-20); Calcium,Total 8.8 mg/dL (8.5-10.1); Chloride 103 mmol/L (98-107); Creatinine, Serum 0.72 mg/dL (0.55-1.02); EST Glomerular Filtration Rate 84 mL/min (>60); Est Glom Filt Rate - Afr Amer 102 mL/min (>60); Globulin 4.1 g/dL (2.2-4.2); Glucose 95 mg/dL (74-106); Potassium 3.5 mmol/L (3.5-5.1); Protein, Total 7.6 g/dL (6.4-8.2); Sodium Level 137 mmol/L (136-145); Thyroid Stim Hormone (TSH) 1.31 uIU/mL (0.358-3.74)
[2021-02-02 17:31] LABS: Vitamin D,25 Hydroxy 35.2 ng/mL
== END ==
PROVIDERS: PCP Family Medicine Geriatric Medicine; Referring Provider Family Medicine Geriatric Medicine; Visit Provider Family Medicine Geriatric Medicine
DX: I10 Essential (primary) hypertension (principal); E55.9 Vitamin D deficiency, unspecified
CPT/HCPCS: 36415; 80053; 82306; 84443; 85025

== ENCOUNTER → 2021-03-09 11:12 | Outpatient (CLI) | payer MEDICARE, SELFPAY ==
[2021-03-09 12:30] LABS: Absolute Lymphocyte Count 0.72 X10^3/uL (0.83-4.51); Basophil# 0.02 X10^3/uL; Basophil% 0.3 % (0-1); Eosinophil# 0.06 X10^3/uL; Eosinophils% 0.9 % (0-5); Lymphocyte # 0.72 X10^3/ul (0.83-4.51); Lymphocyte % 10.7 % (19-41); Mean Corpuscular Volume 93.8 fL (81-99); Mean Platelet Vol. 11.8 fl (6.2-12.0); Monocyte# 0.87 X10^3/uL; Monocyte% 12.9 % (0-10); NRBC Flagged by Analyzer 0 % (0-5); Neutrophil # 5.03 X10^3/uL (2.7-7.7); Neutrophil % 74.6 % (47-70); Platelet Count 222 K/mm3 (150-450); RBC Distribution Width CV 13.2 % (11.6-14.6); Red Blood Count 4.48 M/mm3 (4.2-5.4); White Blood Count 6.7 K/mm3 (4.4-11.0)
[2021-03-09 13:40] LABS: ALB/GLOB Ratio 0.9 RATIO (0.9-2.4); AST(SGOT) 31 U/L (15-37); Alanine Aminotransfer ALT/SGPT 28 U/L (13-56); Albumin, Serum 3.6 g/dL (3.2-5.0); Alkaline Phosphatase 119 U/L (45-117); Anion Gap 9 (5-15); BUN 4 mg/dL (7-18); BUN/Creat Ratio 4.6 RATIO (10-20); Calcium,Total 9.4 mg/dL (8.5-10.1); Chloride 104 mmol/L (98-107); Creatinine, Serum 0.87 mg/dL (0.55-1.02); EST Glomerular Filtration Rate 68 mL/min (>60); Est Glom Filt Rate - Afr Amer 83 mL/min (>60); Globulin 4.1 g/dL (2.2-4.2); Glucose 90 mg/dL (74-106); Potassium 3.9 mmol/L (3.5-5.1); Protein, Total 7.7 g/dL (6.4-8.2); Sodium Level 140 mmol/L (136-145)
== END ==
PROVIDERS: PCP Internal Medicine Rheumatology; Referring Provider Internal Medicine Rheumatology; Visit Provider Internal Medicine Rheumatology
DX: M06.4 Inflammatory polyarthropathy (principal); Z79.899 Other long term (current) drug therapy; M17.0 Bilateral primary osteoarthritis of knee; M47.897 Other spondylosis, lumbosacral region; K22.70 Barrett's esophagus without dysplasia; F32.9 Major depressive disorder, single episode, unspecified; E03.9 Hypothyroidism, unspecified; E78.5 Hyperlipidemia, unspecified
CPT/HCPCS: 36415; 80053; 85025

== ENCOUNTER → 2021-05-03 14:30 | Outpatient (CLI) | payer MEDICARE, SELFPAY ==
--- NOTE | 2021-05-03 15:35 | RAD_ITS ---
STUDY: X-RAY - LUMBAR SPINE REASON FOR EXAM: Female, 70 years old. LOW BACK PAIN TECHNIQUE: 3 view(s) of the lumbar spine were obtained. COMPARISON: Lumbar spine radiograph 05/05/2020 FINDINGS: Normal lumbar lordosis. There is no substantial scoliosis. There is a normal alignment of the vertebrae. There is multilevel endplate spondylosis of the lumbar vertebrae. There is multi-level degenerative disc disease with multi-level disc space narrowing. The soft tissue structures are unremarkable. RAD/Lumbar Spine 2 or 3 Views IMPRESSION: Degenerative changes of the spine, as detailed above. Electronically Signed: Dev Del Valle MD at 16:11 EST , Service support ,
[2021-05-03 18:41] LABS: Absolute Lymphocyte Count 2.04 X10^3/uL (0.83-4.51); Absolute Neutrophil Count 7.3 X10^3/uL (2.0-7.7); Basophil# 0.04 X10^3/uL; Basophil% 0.4 % (0-1); Eosinophil# 0.13 X10^3/uL; Eosinophils% 1.2 % (0-5); Hematocrit 39.7 % (37-47); Hemoglobin 12.6 g/dL (12.0-15.0); Lymphocyte # 2.04 X10^3/ul (0.83-4.51); Lymphocyte % 18.1 % (19-41); Mean Corp Hgb Conc 31.7 g/dL (32-36); Mean Corpuscular Hgb 29.4 pg (27.0-32.0); Mean Corpuscular Volume 92.8 fL (81-99); Monocyte# 1.68 X10^3/uL; Monocyte% 14.9 % (0-10); NRBC Flagged by Analyzer 0 % (0-5); Neutrophil # 7.28 X10^3/uL (2.7-7.7); Neutrophil % 64.7 % (47-70); POSITIVE DIFFERENTIAL YES; Platelet Count 268 K/mm3 (150-450); RBC Distribution Width CV 12.8 % (11.6-14.6); RBC Distribution Width SD 42.7 fl (35.1-43.9); Red Blood Count 4.28 M/mm3 (4.2-5.4); White Blood Count 11.3 K/mm3 (4.4-11.0)
[2021-05-03 18:45] LABS: Differential Indicated SCAN CRITERIA MET
[2021-05-03 18:50] LABS: Vitamin D,25 Hydroxy 29.8 ng/mL
[2021-05-03 19:00] LABS: ALB/GLOB Ratio 0.9 RATIO (0.9-2.4); AST(SGOT) 31 U/L (15-37); Alanine Aminotransfer ALT/SGPT 30 U/L (13-56); Albumin, Serum 3.5 g/dL (3.2-5.0); Alkaline Phosphatase 106 U/L (45-117); Anion Gap 4 (5-15); BUN 9 mg/dL (7-18); BUN/Creat Ratio 10.5 RATIO (10-20); Chloride 106 mmol/L (98-107); Creatinine, Serum 0.86 mg/dL (0.55-1.02); EST Glomerular Filtration Rate 69 mL/min (>60); Est Glom Filt Rate - Afr Amer 84 mL/min (>60); Globulin 3.8 g/dL (2.2-4.2); Glucose 114 mg/dL (74-106); Potassium 3.9 mmol/L (3.5-5.1); Protein, Total 7.3 g/dL (6.4-8.2); Sodium Level 138 mmol/L (136-145); Thyroid Stim Hormone (TSH) 1.14 uIU/mL (0.358-3.74)
[2021-05-03 19:32] LABS: Platelet Estimate ADEQUATE (ADEQ); Red Cell Morphology NORM C+C NORMAL (NORM C&C)
[2021-05-04 13:21] LABS: Pathologist Review Reviewed
== END ==
LOC: POLAB3 14:31 → RAD 15:28
PROVIDERS: PCP Family Medicine Geriatric Medicine; Referring Provider Family Medicine Geriatric Medicine; Visit Provider Family Medicine Geriatric Medicine
DX: M54.50 Low back pain, unspecified (principal); E55.9 Vitamin D deficiency, unspecified; I10 Essential (primary) hypertension
CPT/HCPCS: 36415; 72100; 80053; 82306; 84443; 85025

== ENCOUNTER 2021-05-25 11:45 | Outpatient (CLI) | payer MEDICARE, SELFPAY ==
[2021-05-25 14:59] LABS: Absolute Lymphocyte Count 2.02 X10^3/uL (0.83-4.51); Absolute Neutrophil Count 3.4 X10^3/uL (2.0-7.7); Basophil# 0.03 X10^3/uL; Basophil% 0.4 % (0-1); Eosinophil# 0.13 X10^3/uL; Eosinophils% 1.9 % (0-5); Hematocrit 42.3 % (37-47); Hemoglobin 12.9 g/dL (12.0-15.0); Lymphocyte # 2.02 X10^3/ul (0.83-4.51); Lymphocyte % 29.4 % (19-41); Mean Corp Hgb Conc 30.5 g/dL (32-36); Mean Corpuscular Hgb 28.4 pg (27.0-32.0); Mean Corpuscular Volume 93.2 fL (81-99); Mean Platelet Vol. 12.1 fl (6.2-12.0); Monocyte# 1.24 X10^3/uL; NRBC Flagged by Analyzer 0 % (0-5); Neutrophil # 3.42 X10^3/uL (2.7-7.7); Neutrophil % 49.7 % (47-70); Platelet Count 210 K/mm3 (150-450); RBC Distribution Width CV 13.4 % (11.6-14.6); RBC Distribution Width SD 44.7 fl (35.1-43.9); Red Blood Count 4.54 M/mm3 (4.2-5.4); White Blood Count 6.9 K/mm3 (4.4-11.0)
[2021-05-25 15:08] LABS: ALB/GLOB Ratio 0.9 RATIO (0.9-2.4); AST(SGOT) 25 U/L (15-37); Alanine Aminotransfer ALT/SGPT 27 U/L (13-56); Albumin, Serum 3.7 g/dL (3.2-5.0); Alkaline Phosphatase 119 U/L (45-117); Anion Gap 9 (5-15); BUN 5 mg/dL (7-18); Calcium,Total 9.6 mg/dL (8.5-10.1); Chloride 105 mmol/L (98-107); Creatinine, Serum 0.83 mg/dL (0.55-1.02); EST Glomerular Filtration Rate 72 mL/min (>60); Est Glom Filt Rate - Afr Amer 87 mL/min (>60); Glucose 79 mg/dL (74-106); Potassium 3.9 mmol/L (3.5-5.1); Protein, Total 7.7 g/dL (6.4-8.2); Sodium Level 141 mmol/L (136-145)
== END 2021-05-25 23:59 | disposition short-term general hospital (02) ==
LOC: MFPLAB 11:47
PROVIDERS: PCP Family Medicine Geriatric Medicine; Referring Provider Family Medicine Geriatric Medicine; Visit Provider Internal Medicine Rheumatology
DX: M06.4 Inflammatory polyarthropathy (principal); Z79.899 Other long term (current) drug therapy; M17.0 Bilateral primary osteoarthritis of knee; M47.897 Other spondylosis, lumbosacral region; K22.70 Barrett's esophagus without dysplasia; F32.A Depression, unspecified; E03.9 Hypothyroidism, unspecified; E78.5 Hyperlipidemia, unspecified
CPT/HCPCS: 36415; 80053; 85025

== ENCOUNTER 2021-05-28 14:25 | Outpatient (CLI) | payer MEDICARE, SELFPAY | END 2021-05-28 23:59 | disposition short-term general hospital (02) | LOC: LABSPEC 14:27 | PROVIDERS: PCP Family Medicine Geriatric Medicine; Referring Provider Physician Assistant Surgical; Visit Provider Physician Assistant Surgical | DX: Z11.52 Encounter for screening for COVID-19 (principal) | CPT/HCPCS: 87635; U0003; U0005 ==

== ENCOUNTER 2021-05-31 13:30 | Outpatient (RCR) | payer MEDICARE, SELFPAY ==
--- NOTE | 2021-05-13 14:25 | HP.PTEVAL ---
Patient's Visit Information DANDRE PERAZA is a 70 year old F referred to Physical Therapy by Dr. Raji Herrmann MD with a diagnosis of Low Back Pain. Date of Evaluation: 05/13/21 Physical Therapist: Naty Ugalde DPT - Visit Plan Frequency: 2x /Week Duration: 4 Weeks Plan: Aquatic- focus on LE and core strength/stabilization- - Subjective Patient reports that she lifted wood a long time ago and has had back problems on/off ever since. It feels like a hook it catches on her left side and then vibrates all the way across the low back. No radiating pain down the left LE. Describes the pain as sharp/shooting and it comes and goes. Worst: 8/10 Agg: when she tries to do things- vacuum, standing for long periods of time (dishes/cooking). Best: 0/10 Eases: heating pad, icy/hot, arthritis cream, sitting for about 30 min. Best: 0/10. Went to see the MD- who had an x-ray done that showed DDD. Feels that her pain is staying the same- not better but not worse. Sleep: sometimes it wakes her up- normally sleeps on her side. No MRI but did have an injection to get her through [facility]- but they only lasted two days- that was about a week ago. No loss or change in bowel or bladder. Reports no N/T in bilateral LE. If she walks a long distance she does feel like her LE will buckle- does not use an AD- no falls. Does not do stairs well- she does require minor assistance with dressing from her on certain days due to pain. PMHx: No changes since ER visit in July 2020. Comes to [place] Monday/- just started and makes her feel better - Objective Posture: FH, RS- can correct with verbal and tactile cues but does not maintain. Gait: slight deviation- decreased stride length HR/TR: able. SLS: weight shift but unable to SLS. Sensation: WNL to gross touch bilateral LE. Reflex: 2+ patellar. ROM: WFL in all planes of lumbar with the exception of forward flexion: diminished by 50%- pain in all directions. Strength: Core: fair minus, Hip: 4/5 throughout, knee:4+/5 Ankle: 5/5. Special Test: Pelvic Alignment: WNL, LLD: negative - Special Tests L/S Slump test left side: Positive L/S Slump test right side: Positive L/S Left Straight Leg Raise: Positive L/S Right Straight Leg Raise: Positive L/S Left Femoral Nerve Tension: Positive L/S Right Femoral Nerve Tension: Positive R Hip Quadrant - Intraarticular Pathology: Negative R Hip GERSON - Intraarticular Pathology: Negative R Hip FADDIR - Labrum: Negative R Hip Impingement Provocation - Labrum: Negative R Hip Trendelenberg - Glut Medius: Negative R Hip Michael - IT Band: Negative L Hip Scour: Negative L Hip GERSON - Intraarticular Pathology: Positive L Hip FADDIR - Labrum: Positive L Hip Impingement Provocation - Labrum: Positive L Hip Trendelenberg - Glut Medius: Positive L Hip Michael - IT Band: Positive - Balance/Special Test Scores Oswestry Low Back Score: 24 - Goals Goal 1:: Patient will be I with HEP and progression Goal Time Frame: 4-6 Weeks Goal 2:: Patient will maintain proper posture t/o tx session to demo increased core s/s Goal Time Frame: 4-6 Weeks Goal 3:: Patient will report no more than 2/10 pain for 1 week Goal Time Frame: 4-6 Weeks - Rehabilitation Potential Physical Therapy Diagnosis: Patient presents with hypomobility- she has decreased pain free ROM, LE and core strength/stabilization, flex and muscular endurance leading to poor posture and increased pain with ADL's. Rehabilitation Potential: Fair - Anticipated Interventions Patient/Client Instruction: Educate patient on: Benefits of Fitness Program Therapeutic Exercise to Include: Strength training, Endurance training, Balance training, Coordination, Agility training, Body mechanics, Postural training, Flexibilty training, Gait and locomotor training, Neuromotor development, In an aquatic setting, Dynamic Lumbar Stabilization, Scapular Strength/Stabilization For the Purpose of:: To improve muscle performance and motor function TENS: Yes Cryotherapy (ice pack, ice massage): Yes Thermo therapy (hot pack): Yes Ultrasound (thermal/non thermal): Yes Thank you for the opportunity to evaluate your patient. For Medicare and Medicare HMO plans, please review the plan of care and approve it. It will need to be FAXED BACK to us at [phone] for Medicare purposes. For Medicare only, by signing this I certify the plan of care. Please let me know if there are questions or concerns regarding this plan of care. Physician Signature: Date:
--- NOTE | 2021-11-04 15:16 | HP.PT.NRP ---
DANDRE GAONA STU was seen in my office for initial evaluation on 05/13/21. The following Plan of Care was established for this patient: Initial Frequency: 2x /Week Initial Duration: 4 Weeks Patient/Client Instruction: Educate patient on: Benefits of Fitness Program Therapeutic Exercise to Include: Strength training, Endurance training, Balance training, Coordination, Agility training, Body mechanics, Postural training, Flexibilty training, Gait and locomotor training, Neuromotor development, In an aquatic setting, Dynamic Lumbar Stabilization, Scapular Strength/Stabilization For the Purpose of:: To improve muscle performance and motor function TENS: Yes Cryotherapy (ice pack, ice massage): Yes Thermo therapy (hot pack): Yes Ultrasound (thermal/non thermal): Yes This patient was last seen in our office . Pertinent comments regarding their Physical therapy will appear below: Patient has not attended PT in over 30 days- appropriate to be d/c and return to MD for further evaluation as needed. At this point I will be discontinuing this patient from physical therapy. I would be happy to see this patient again in the future if found appropriate by the physician. Thank you! Naty Ugalde, [place] Balance/Gait/Functional tests - Balance/Special Test Scores Oswestry Low Back Score: 24
== END 2021-05-31 19:00 | disposition home or self-care (01) ==
LOC: PT 13:30
PROVIDERS: PCP Family Medicine Geriatric Medicine; Referring Provider Family Medicine Geriatric Medicine; Visit Provider Family Medicine Geriatric Medicine
DX: M54.50 Low back pain, unspecified (principal)
CPT/HCPCS: 97113; 97162

== ENCOUNTER 2021-07-01 08:20 | Outpatient (CLI) | payer MEDICARE, SELFPAY ==
--- NOTE | 2021-07-01 08:23 | BI_ITS ---
MAMMOGRAPHY - BILATERAL SCREENING REASON FOR EXAM: Female, 70 years old. Routine annual screening examination. PERTINENT HISTORY: Non-contributory. TECHNIQUE: Digital bilateral breast blue (3D mammographic acquisition) in the CC and MLO projections. 2-D mediolateral oblique (MLO) and craniocaudad (CC) views of both breasts were obtained. CAD: Full Field Digital Mammography with Computer Added Detection was performed. COMPARISON: Comparison is made with prior study dated 06/10/2020 and 12/02/2019. FINDINGS: Breast Composition: The breasts are almost entirely fatty. There are no dominant masses or suspicious calcifications. No other significant abnormalities are identified. There has been no significant change since the prior study. BI/SCRN MAMM (CAD)W/BLUE BILAT IMPRESSION: Stable bilateral screening mammogram. Yearly follow-up mammogram recommended. (A) ASSESSMENT CATEGORY: BIRADS Category 1: Negative. A letter regarding these results will be sent to the patient by the facility within 30 days. Approximately 10% of breast cancers are not detected by mammography. A normal mammogram should not delay biopsy of a clinically suspicious abnormality. [id number] Electronically Signed: Chan Bowers MD at 9:29 EST ,
== END 2021-07-01 23:59 | disposition home or self-care (01) ==
LOC: OPBI 08:21
PROVIDERS: PCP Family Medicine Geriatric Medicine; Referring Provider Family Medicine Geriatric Medicine; Visit Provider Family Medicine Geriatric Medicine
DX: Z12.31 Encounter for screening mammogram for malignant neoplasm of breast (principal)
CPT/HCPCS: 77063; 77067

== ENCOUNTER 2021-07-29 11:33 | Outpatient (CLI) | payer MEDICARE, SELFPAY ==
[2021-07-29 12:39] LABS: Absolute Lymphocyte Count 2.08 X10^3/uL (0.83-4.51); Absolute Neutrophil Count 7.2 X10^3/uL (2.0-7.7); Basophil# 0.01 X10^3/uL; Basophil% 0.1 % (0-1); Eosinophil# 0.03 X10^3/uL; Eosinophils% 0.3 % (0-5); Hemoglobin 13.3 g/dL (12.0-15.0); Lymphocyte # 2.08 X10^3/ul (0.83-4.51); Lymphocyte % 18.1 % (19-41); Mean Corp Hgb Conc 32.4 g/dL (32-36); Mean Corpuscular Hgb 29.6 pg (27.0-32.0); Mean Corpuscular Volume 91.1 fL (81-99); Mean Platelet Vol. 11.9 fl (6.2-12.0); Monocyte# 2.02 X10^3/uL; Monocyte% 17.6 % (0-10); NRBC Flagged by Analyzer 0 % (0-5); Neutrophil # 7.22 X10^3/uL (2.7-7.7); Neutrophil % 62.9 % (47-70); POSITIVE DIFFERENTIAL YES; Platelet Count 212 K/mm3 (150-450); RBC Distribution Width CV 13.4 % (11.6-14.6); RBC Distribution Width SD 44.3 fl (35.1-43.9); White Blood Count 11.5 K/mm3 (4.4-11.0)
[2021-07-29 12:55] LABS: Differential Indicated SCAN CRITERIA MET
[2021-07-29 12:57] LABS: Anion Gap 7 (5-15); BUN 7 mg/dL (7-18); BUN/Creat Ratio 7.4 RATIO (10-20); Calcium,Total 9.1 mg/dL (8.5-10.1); Chloride 102 mmol/L (98-107); Creatinine, Serum 0.95 mg/dL (0.55-1.02); EST Glomerular Filtration Rate 61 mL/min (>60); Est Glom Filt Rate - Afr Amer 74 mL/min (>60); Glucose 91 mg/dL (74-106); Potassium 3.6 mmol/L (3.5-5.1); Sodium Level 135 mmol/L (136-145)
[2021-07-30 13:29] LABS: Pathologist Review Reviewed
== END 2021-07-29 23:59 | disposition home or self-care (01) ==
LOC: POLAB3 11:34
PROVIDERS: PCP Family Medicine Geriatric Medicine; Visit Provider Family Medicine Geriatric Medicine
DX: N39.0 Urinary tract infection, site not specified (principal); R10.9 Unspecified abdominal pain
CPT/HCPCS: 36415; 80048; 85025; 87086; 87088; 87186

== ENCOUNTER 2021-08-02 13:14 | Outpatient (CLI) | payer MEDICARE, SELFPAY ==
[2021-08-02 17:07] LABS: Absolute Lymphocyte Count 2.42 X10^3/uL (0.83-4.51); Absolute Neutrophil Count 2.6 X10^3/uL (2.0-7.7); Basophil# 0.02 X10^3/uL; Basophil% 0.3 % (0-1); Eosinophils% 3.1 % (0-5); Hematocrit 40.7 % (37-47); Hemoglobin 12.7 g/dL (12.0-15.0); Lymphocyte # 2.42 X10^3/ul (0.83-4.51); Lymphocyte % 37.7 % (19-41); Mean Corp Hgb Conc 31.2 g/dL (32-36); Mean Corpuscular Hgb 28.6 pg (27.0-32.0); Mean Corpuscular Volume 91.7 fL (81-99); Mean Platelet Vol. 11.9 fl (6.2-12.0); Monocyte# 1.15 X10^3/uL; Monocyte% 17.9 % (0-10); NRBC Flagged by Analyzer 0 % (0-5); Neutrophil # 2.59 X10^3/uL (2.7-7.7); Neutrophil % 40.4 % (47-70); Platelet Count 258 K/mm3 (150-450); RBC Distribution Width CV 13.1 % (11.6-14.6); RBC Distribution Width SD 43.6 fl (35.1-43.9); Red Blood Count 4.44 M/mm3 (4.2-5.4); White Blood Count 6.4 K/mm3 (4.4-11.0)
[2021-08-02 17:16] LABS: Vitamin D,25 Hydroxy 37.5 ng/mL
[2021-08-02 17:31] LABS: ALB/GLOB Ratio 0.9 RATIO (0.9-2.4); AST(SGOT) 29 U/L (15-37); Alanine Aminotransfer ALT/SGPT 26 U/L (13-56); Albumin, Serum 3.4 g/dL (3.2-5.0); Alkaline Phosphatase 110 U/L (45-117); Anion Gap 7 (5-15); BUN 4 mg/dL (7-18); BUN/Creat Ratio 5.8 RATIO (10-20); Calcium,Total 8.6 mg/dL (8.5-10.1); Chloride 105 mmol/L (98-107); Creatinine, Serum 0.69 mg/dL (0.55-1.02); EST Glomerular Filtration Rate 88 mL/min (>60); Est Glom Filt Rate - Afr Amer 107 mL/min (>60); Globulin 3.9 g/dL (2.2-4.2); Glucose 94 mg/dL (74-106); Potassium 3.7 mmol/L (3.5-5.1); Protein, Total 7.3 g/dL (6.4-8.2); Sodium Level 138 mmol/L (136-145); Thyroid Stim Hormone (TSH) 2.19 uIU/mL (0.358-3.74)
== END 2021-08-02 23:59 | disposition home or self-care (01) ==
LOC: POLAB3 13:15
PROVIDERS: PCP Family Medicine Geriatric Medicine; Visit Provider Family Medicine Geriatric Medicine
DX: I10 Essential (primary) hypertension (principal); E55.9 Vitamin D deficiency, unspecified
CPT/HCPCS: 36415; 80053; 82306; 84443; 85025

== ENCOUNTER 2021-08-16 10:47 | Outpatient (CLI) | payer MEDICARE, SELFPAY ==
[2021-08-16 15:20] LABS: Absolute Lymphocyte Count 1.96 X10^3/uL (0.83-4.51); Absolute Neutrophil Count 3.5 X10^3/uL (2.0-7.7); Basophil# 0.04 X10^3/uL; Basophil% 0.6 % (0-1); Eosinophil# 0.18 X10^3/uL; Eosinophils% 2.6 % (0-5); Hematocrit 39.3 % (37-47); Hemoglobin 12.3 g/dL (12.0-15.0); Lymphocyte # 1.96 X10^3/ul (0.83-4.51); Lymphocyte % 28.2 % (19-41); Mean Corp Hgb Conc 31.3 g/dL (32-36); Mean Corpuscular Hgb 28.7 pg (27.0-32.0); Mean Corpuscular Volume 91.8 fL (81-99); Mean Platelet Vol. 12.4 fl (6.2-12.0); Monocyte# 1.29 X10^3/uL; Monocyte% 18.5 % (0-10); NRBC Flagged by Analyzer 0 % (0-5); Neutrophil # 3.45 X10^3/uL (2.7-7.7); Neutrophil % 49.5 % (47-70); Platelet Count 251 K/mm3 (150-450); RBC Distribution Width CV 13.2 % (11.6-14.6); RBC Distribution Width SD 43.7 fl (35.1-43.9); Red Blood Count 4.28 M/mm3 (4.2-5.4)
[2021-08-16 15:33] LABS: ALB/GLOB Ratio 0.8 RATIO (0.9-2.4); AST(SGOT) 21 U/L (15-37); Alanine Aminotransfer ALT/SGPT 21 U/L (13-56); Albumin, Serum 3.4 g/dL (3.2-5.0); Alkaline Phosphatase 106 U/L (45-117); Anion Gap 6 (5-15); BUN 4 mg/dL (7-18); Calcium,Total 9.1 mg/dL (8.5-10.1); Chloride 107 mmol/L (98-107); EST Glomerular Filtration Rate 75 mL/min (>60); Est Glom Filt Rate - Afr Amer 91 mL/min (>60); Glucose 90 mg/dL (74-106); Potassium 3.9 mmol/L (3.5-5.1); Protein, Total 7.4 g/dL (6.4-8.2); Sodium Level 142 mmol/L (136-145)
== END 2021-08-16 23:59 | disposition home or self-care (01) ==
PROVIDERS: PCP Family Medicine Geriatric Medicine; Referring Provider Internal Medicine Rheumatology; Visit Provider Internal Medicine Rheumatology
DX: M06.4 Inflammatory polyarthropathy (principal); M17.0 Bilateral primary osteoarthritis of knee; M47.897 Other spondylosis, lumbosacral region; K22.70 Barrett's esophagus without dysplasia; F32.9 Major depressive disorder, single episode, unspecified; E03.9 Hypothyroidism, unspecified; E78.5 Hyperlipidemia, unspecified; Z79.899 Other long term (current) drug therapy
CPT/HCPCS: 36415; 80053; 85025

== ENCOUNTER 2021-09-07 16:13 | Outpatient (CLI) | payer MEDICARE, SELFPAY ==
--- NOTE | 2021-09-07 16:55 | RAD_ITS ---
STUDY: X-RAY - LUMBOSACRAL SPINE REASON FOR EXAM: Female, 71 years old. LOW BACK PAIN TECHNIQUE: 7 view(s) of the lumbosacral spine were obtained. COMPARISON: 05/03/2021 FINDINGS: Please see the impression. RAD/L/S Spine Comp/w Bending Views IMPRESSION: No acute fracture or traumatic subluxation in the lumbar spine. Stable multilevel lumbar spondylosis. No abnormal range of motion on flexion and extension views. No definite pars defect. Vascular calcification. Electronically Signed: Triston Gould MD at 17:22 EDT ,
== END 2021-09-07 23:59 | disposition home or self-care (01) ==
PROVIDERS: PCP Family Medicine Geriatric Medicine; Visit Provider Family Medicine Geriatric Medicine
DX: M54.50 Low back pain, unspecified (principal); N39.0 Urinary tract infection, site not specified
CPT/HCPCS: 72114; 87086; 87088; 87186

== ENCOUNTER → 2021-09-23 | Outpatient (CLI) | payer MEDICARE, SELFPAY | END | disposition home or self-care (01) | LOC: PSN 13:00 | PROVIDERS: PCP Family Medicine Geriatric Medicine; Referring Provider Family Medicine Geriatric Medicine; Visit Provider Family Medicine Geriatric Medicine | DX: R68.83 Chills (without fever) (principal) | CPT/HCPCS: 87635; 87804; 87807; C9803; U0003; U0005 ==

== ENCOUNTER → 2021-10-25 | Outpatient (CLI) | payer MEDICARE, SELFPAY ==
[2021-10-25 15:32] LABS: Absolute Neutrophil Count 3.1 X10^3/uL (2.0-7.7); Basophil# 0.03 X10^3/uL; Basophil% 0.4 % (0-1); Eosinophil# 0.13 X10^3/uL; Eosinophils% 1.8 % (0-5); Hematocrit 39.4 % (37-47); Hemoglobin 12.5 g/dL (12.0-15.0); Lymphocyte % 39.6 % (19-41); Mean Corp Hgb Conc 31.7 g/dL (32-36); Mean Corpuscular Hgb 28.5 pg (27.0-32.0); Monocyte# 1.16 X10^3/uL; Monocyte% 15.8 % (0-10); NRBC Flagged by Analyzer 0 % (0-5); Neutrophil # 3.06 X10^3/uL (2.7-7.7); Neutrophil % 41.7 % (47-70); Platelet Count 228 K/mm3 (150-450); RBC Distribution Width CV 13.7 % (11.6-14.6); RBC Distribution Width SD 44.6 fl (35.1-43.9); Red Blood Count 4.38 M/mm3 (4.2-5.4); White Blood Count 7.3 K/mm3 (4.4-11.0)
[2021-10-25 15:58] LABS: Vitamin D,25 Hydroxy 32.2 ng/mL
[2021-10-25 16:09] LABS: AST(SGOT) 34 U/L (15-37); Alanine Aminotransfer ALT/SGPT 33 U/L (13-56); Albumin, Serum 3.7 g/dL (3.2-5.0); Alkaline Phosphatase 129 U/L (45-117); Anion Gap 7 (5-15); BUN 7 mg/dL (7-18); Calcium,Total 8.8 mg/dL (8.5-10.1); Chloride 102 mmol/L (98-107); EST Glomerular Filtration Rate 87 mL/min (>60); Est Glom Filt Rate - Afr Amer 105 mL/min (>60); Globulin 3.7 g/dL (2.2-4.2); Glucose 83 mg/dL (74-106); Potassium 3.9 mmol/L (3.5-5.1); Protein, Total 7.4 g/dL (6.4-8.2); Sodium Level 134 mmol/L (136-145); Thyroid Stim Hormone (TSH) 1.93 uIU/mL (0.358-3.74)
== END | disposition home or self-care (01) ==
LOC: LAB 14:21
PROVIDERS: PCP Family Medicine Geriatric Medicine; Visit Provider Family Medicine Geriatric Medicine
DX: E78.5 Hyperlipidemia, unspecified (principal); E55.9 Vitamin D deficiency, unspecified; I10 Essential (primary) hypertension; N39.0 Urinary tract infection, site not specified
CPT/HCPCS: 36415; 80053; 82306; 84443; 85025; 87086; 87088

== ENCOUNTER → 2021-11-11 | Outpatient (CLI) | payer MEDICARE, SELFPAY ==
[2021-11-11 12:14] LABS: Absolute Lymphocyte Count 2.47 X10^3/uL (0.83-4.51); Absolute Neutrophil Count 2.9 X10^3/uL (2.0-7.7); Basophil# 0.03 X10^3/uL; Basophil% 0.5 % (0-1); Eosinophil# 0.08 X10^3/uL; Eosinophils% 1.2 % (0-5); Hematocrit 40.4 % (37-47); Hemoglobin 12.5 g/dL (12.0-15.0); Lymphocyte # 2.47 X10^3/ul (0.83-4.51); Lymphocyte % 37.1 % (19-41); Mean Corp Hgb Conc 30.9 g/dL (32-36); Mean Corpuscular Hgb 28.5 pg (27.0-32.0); Mean Corpuscular Volume 92.2 fL (81-99); Mean Platelet Vol. 11.4 fl (6.2-12.0); Monocyte# 1.18 X10^3/uL; Monocyte% 17.7 % (0-10); NRBC Flagged by Analyzer 0 % (0-5); Neutrophil # 2.86 X10^3/uL (2.7-7.7); Neutrophil % 42.9 % (47-70); Platelet Count 276 K/mm3 (150-450); RBC Distribution Width CV 13.7 % (11.6-14.6); RBC Distribution Width SD 46.2 fl (35.1-43.9); Red Blood Count 4.38 M/mm3 (4.2-5.4); White Blood Count 6.7 K/mm3 (4.4-11.0)
[2021-11-11 12:53] LABS: AST(SGOT) 26 U/L (15-37); Alanine Aminotransfer ALT/SGPT 10 U/L (13-56); Albumin, Serum 3.6 g/dL (3.2-5.0); Alkaline Phosphatase 113 U/L (45-117); Anion Gap 6 (5-15); BUN 10 mg/dL (7-18); BUN/Creat Ratio 12.4 RATIO (10-20); Calcium,Total 9.1 mg/dL (8.5-10.1); Chloride 103 mmol/L (98-107); EST Glomerular Filtration Rate 74 mL/min (>60); Est Glom Filt Rate - Afr Amer 90 mL/min (>60); Globulin 3.7 g/dL (2.2-4.2); Glucose 83 mg/dL (74-106); Potassium 4.1 mmol/L (3.5-5.1); Protein, Total 7.3 g/dL (6.4-8.2); Sodium Level 138 mmol/L (136-145)
== END | disposition home or self-care (01) ==
LOC: MTLAB 11:12
PROVIDERS: PCP Family Medicine Geriatric Medicine; Referring Provider Internal Medicine Rheumatology; Visit Provider Internal Medicine Rheumatology
DX: M06.4 Inflammatory polyarthropathy (principal); Z79.899 Other long term (current) drug therapy; M17.0 Bilateral primary osteoarthritis of knee; M47.897 Other spondylosis, lumbosacral region; K22.70 Barrett's esophagus without dysplasia; F32.9 Major depressive disorder, single episode, unspecified; E03.9 Hypothyroidism, unspecified; E78.5 Hyperlipidemia, unspecified
CPT/HCPCS: 36415; 80053; 85025

== ENCOUNTER → 2021-11-18 | Outpatient (CLI) | payer MEDICARE, SELFPAY ==
--- NOTE | 2021-11-18 11:55 | RAD_ITS ---
STUDY: X-RAY - LEFT SHOULDER REASON FOR EXAM: Female, 71 years old. PAIN TECHNIQUE: 5 view(s) of the shoulder. COMPARISON: August 12, 2020 chest x-ray, August 15, 2018 chest x-ray FINDINGS: There is mild degenerative arthrosis of the glenohumeral articulation. Normal acromioclavicular joint. Normal acromion. Normal humeral head and visualized proximal humerus. The soft tissue structures are unremarkable. Normal visualized pulmonary apex. RAD/Shoulder min 2 Views IMPRESSION: Mild degenerative change. No visualized acute fracture. Electronically Signed: Karon De La Vega MD at 5:01 EDT Reading Location ID and State: [facility] / [place] Tel , Service support ,
== END | disposition home or self-care (01) ==
PROVIDERS: PCP Family Medicine Geriatric Medicine; Referring Provider Family Medicine Geriatric Medicine; Visit Provider Family Medicine Geriatric Medicine
DX: M25.512 Pain in left shoulder (principal)
CPT/HCPCS: 73030

== ENCOUNTER → 2022-01-26 | Outpatient (CLI) | payer MEDICARE, SELFPAY ==
[2022-01-26 12:10] LABS: Absolute Lymphocyte Count 2.31 X10^3/uL (0.83-4.51); Absolute Neutrophil Count 2.8 X10^3/uL (2.0-7.7); Basophil# 0.04 X10^3/uL; Basophil% 0.6 % (0-1); Eosinophils% 1.6 % (0-5); Hematocrit 41.1 % (37-47); Lymphocyte # 2.31 X10^3/ul (0.83-4.51); Lymphocyte % 35.9 % (19-41); Mean Corp Hgb Conc 31.6 g/dL (32-36); Mean Corpuscular Hgb 30.3 pg (27.0-32.0); Mean Corpuscular Volume 95.8 fL (81-99); Mean Platelet Vol. 11.7 fl (6.2-12.0); Monocyte# 1.19 X10^3/uL; Monocyte% 18.5 % (0-10); NRBC Flagged by Analyzer 0 % (0-5); Neutrophil # 2.75 X10^3/uL (2.7-7.7); Neutrophil % 42.6 % (47-70); Platelet Count 294 K/mm3 (150-450); RBC Distribution Width CV 13.3 % (11.6-14.6); RBC Distribution Width SD 46.3 fl (35.1-43.9); Red Blood Count 4.29 M/mm3 (4.2-5.4); White Blood Count 6.4 K/mm3 (4.4-11.0)
[2022-01-26 12:49] LABS: ALB/GLOB Ratio 0.8 RATIO (0.9-2.4); AST(SGOT) 33 U/L (15-37); Alanine Aminotransfer ALT/SGPT 16 U/L (13-56); Albumin, Serum 3.4 g/dL (3.2-5.0); Alkaline Phosphatase 100 U/L (45-117); Anion Gap 9 (5-15); BUN 5 mg/dL (7-18); BUN/Creat Ratio 6.4 RATIO (10-20); Chloride 105 mmol/L (98-107); Creatinine, Serum 0.78 mg/dL (0.55-1.02); EST Glomerular Filtration Rate 77 mL/min (>60); Est Glom Filt Rate - Afr Amer 93 mL/min (>60); Globulin 4.1 g/dL (2.2-4.2); Glucose 86 mg/dL (74-106); Protein, Total 7.5 g/dL (6.4-8.2); Sodium Level 138 mmol/L (136-145); Thyroid Stim Hormone (TSH) 2.69 uIU/mL (0.358-3.74)
[2022-01-26 12:51] LABS: Vitamin D,25 Hydroxy 31.4 ng/mL
== END | disposition home or self-care (01) ==
LOC: POLAB3 09:59
PROVIDERS: PCP Family Medicine Geriatric Medicine; Visit Provider Family Medicine Geriatric Medicine
DX: I10 Essential (primary) hypertension (principal); E55.9 Vitamin D deficiency, unspecified
CPT/HCPCS: 36415; 80053; 82306; 84443; 85025

== ENCOUNTER → 2022-02-04 | Outpatient (CLI) | payer MEDICARE, SELFPAY ==
[2022-02-04 15:25] LABS: Absolute Lymphocyte Count 1.59 X10^3/uL (0.83-4.51); Absolute Neutrophil Count 5.8 X10^3/uL (2.0-7.7); Basophil# 0.02 X10^3/uL; Basophil% 0.2 % (0-1); Eosinophil# 0.12 X10^3/uL; Eosinophils% 1.3 % (0-5); Lymphocyte # 1.59 X10^3/ul (0.83-4.51); Lymphocyte % 17.2 % (19-41); Mean Corpuscular Volume 96.8 fL (81-99); Mean Platelet Vol. 11.2 fl (6.2-12.0); Monocyte# 1.64 X10^3/uL; Monocyte% 17.8 % (0-10); NRBC Flagged by Analyzer 0 % (0-5); Neutrophil # 5.82 X10^3/uL (2.7-7.7); Neutrophil % 63.1 % (47-70); POSITIVE DIFFERENTIAL YES; Platelet Count 268 K/mm3 (150-450); RBC Distribution Width CV 12.8 % (11.6-14.6); RBC Distribution Width SD 45.5 fl (35.1-43.9); Red Blood Count 4.34 M/mm3 (4.2-5.4); White Blood Count 9.2 K/mm3 (4.4-11.0)
[2022-02-04 15:33] LABS: ALB/GLOB Ratio 0.9 RATIO (0.9-2.4); AST(SGOT) 24 U/L (15-37); Alanine Aminotransfer ALT/SGPT 28 U/L (13-56); Albumin, Serum 3.5 g/dL (3.2-5.0); Alkaline Phosphatase 114 U/L (45-117); Anion Gap 7 (5-15); BUN 5 mg/dL (7-18); BUN/Creat Ratio 6.5 RATIO (10-20); Chloride 101 mmol/L (98-107); Creatinine, Serum 0.78 mg/dL (0.55-1.02); EST Glomerular Filtration Rate 77 mL/min (>60); Est Glom Filt Rate - Afr Amer 94 mL/min (>60); Glucose 90 mg/dL (74-106); Potassium 3.8 mmol/L (3.5-5.1); Protein, Total 7.5 g/dL (6.4-8.2); Sodium Level 137 mmol/L (136-145)
[2022-02-04 15:36] LABS: Differential Indicated SCAN CRITERIA MET
[2022-02-04 16:07] LABS: Platelet Estimate ADEQUATE (ADEQ); Red Cell Morphology NORM C+C NORMAL (NORM C&C)
== END | disposition home or self-care (01) ==
PROVIDERS: PCP Family Medicine Geriatric Medicine; Referring Provider Internal Medicine Rheumatology; Visit Provider Internal Medicine Rheumatology
DX: M06.4 Inflammatory polyarthropathy (principal); Z79.899 Other long term (current) drug therapy; M17.0 Bilateral primary osteoarthritis of knee; M47.897 Other spondylosis, lumbosacral region; K22.70 Barrett's esophagus without dysplasia; F32.9 Major depressive disorder, single episode, unspecified; E03.9 Hypothyroidism, unspecified; E78.5 Hyperlipidemia, unspecified
CPT/HCPCS: 36415; 80053; 85025

== ENCOUNTER → 2022-02-11 | Outpatient (CLI) | payer MEDICARE, SELFPAY | END | disposition home or self-care (01) | LOC: PSN 14:02 | PROVIDERS: PCP Family Medicine Geriatric Medicine; Referring Provider Family Medicine Geriatric Medicine; Visit Provider Family Medicine Geriatric Medicine | DX: R68.83 Chills (without fever) (principal) | CPT/HCPCS: 87635; 87804; 87807; C9803; U0003; U0005 ==

== ENCOUNTER → 2022-03-07 | Outpatient (CLI) | payer MEDICARE, SELFPAY ==
--- NOTE | 2022-03-07 15:23 | RAD_ITS ---
STUDY: X-RAY - LEFT KNEE REASON FOR EXAM: Female, 71 years old. Knee pain. TECHNIQUE: 5 view(s) of the knee. COMPARISON: 10/24/2017 FINDINGS: There is a total knee replacement. The prosthetic components are intact and articulate normally with each other. There is no evidence of loosening from the underlying bone. There is no evidence of osseous fracture or destructive osseous pathology. No joint effusion. The soft tissue structures are unremarkable. RAD/Knee 4 or More Views IMPRESSION: Left total knee arthroplasty without acute abnormality or major interval change Electronically Signed: Bharathi Delarosa DO at 23:44 EDT ,
[2022-03-07 17:13] LABS: Erythrocyte Sedimentation Rate 16 mm/hr (0-30)
[2022-03-07 17:15] LABS: Absolute Neutrophil Count 3.4 X10^3/uL (2.0-7.7); Basophil# 0.03 X10^3/uL; Basophil% 0.4 % (0-1); Eosinophil# 0.09 X10^3/uL; Eosinophils% 1.2 % (0-5); Hematocrit 41.1 % (37-47); Hemoglobin 13.1 g/dL (12.0-15.0); Lymphocyte % 37.7 % (19-41); Mean Corp Hgb Conc 31.9 g/dL (32-36); Mean Corpuscular Hgb 30.6 pg (27.0-32.0); Mean Platelet Vol. 11.4 fl (6.2-12.0); Monocyte# 1.26 X10^3/uL; Monocyte% 16.4 % (0-10); NRBC Flagged by Analyzer 0 % (0-5); Neutrophil # 3.38 X10^3/uL (2.7-7.7); Neutrophil % 43.8 % (47-70); Platelet Count 231 K/mm3 (150-450); RBC Distribution Width CV 12.6 % (11.6-14.6); RBC Distribution Width SD 44.2 fl (35.1-43.9); Red Blood Count 4.28 M/mm3 (4.2-5.4); White Blood Count 7.7 K/mm3 (4.4-11.0)
[2022-03-07 17:40] LABS: Anion Gap 8 (5-15); BUN 5 mg/dL (7-18); BUN/Creat Ratio 7.6 RATIO (10-20); CRP < 2.90 mg/L (0.0-3.0); Calcium,Total 9.2 mg/dL (8.5-10.1); Chloride 104 mmol/L (98-107); Creatinine, Serum 0.66 mg/dL (0.55-1.02); EST Glomerular Filtration Rate 93 mL/min (>60); Est Glom Filt Rate - Afr Amer 112 mL/min (>60); Glucose 82 mg/dL (74-106); Potassium 3.8 mmol/L (3.5-5.1); Sodium Level 138 mmol/L (136-145)
== END | disposition home or self-care (01) ==
LOC: POLAB3 15:05 → RAD 15:15
PROVIDERS: PCP Family Medicine Geriatric Medicine; Visit Provider Family Medicine Geriatric Medicine
DX: M25.562 Pain in left knee (principal); Z96.652 Presence of left artificial knee joint
CPT/HCPCS: 36415; 73564; 80048; 85025; 85652; 86140

== ENCOUNTER → 2022-03-10 | Outpatient (CLI) | payer MEDICARE, SELFPAY | END | disposition home or self-care (01) | LOC: PSN 14:10 | PROVIDERS: PCP Family Medicine Geriatric Medicine; Referring Provider Family Medicine Geriatric Medicine; Visit Provider Family Medicine Geriatric Medicine | DX: R68.83 Chills (without fever) (principal); Z20.822 Contact with and (suspected) exposure to COVID-19 | CPT/HCPCS: 87635; 87804; 87807; C9803; U0003; U0005 ==

== ENCOUNTER → 2022-05-03 | Outpatient (CLI) | payer MEDICARE, SELFPAY ==
[2022-05-03 18:00] LABS: Absolute Lymphocyte Count 2.99 X10^3/uL (0.83-4.51); Absolute Neutrophil Count 7.3 X10^3/uL (2.0-7.7); Basophil# 0.05 X10^3/uL; Basophil% 0.4 % (0-1); Eosinophil# 0.08 X10^3/uL; Eosinophils% 0.7 % (0-5); Hematocrit 41.8 % (37-47); Lymphocyte # 2.99 X10^3/ul (0.83-4.51); Lymphocyte % 24.4 % (19-41); Mean Corp Hgb Conc 31.1 g/dL (32-36); Mean Corpuscular Hgb 29.3 pg (27.0-32.0); Mean Corpuscular Volume 94.1 fL (81-99); Mean Platelet Vol. 11.2 fl (6.2-12.0); Monocyte% 14.7 % (0-10); NRBC Flagged by Analyzer 0.2 % (0-5); Neutrophil # 7.26 X10^3/uL (2.7-7.7); Neutrophil % 59.1 % (47-70); POSITIVE DIFFERENTIAL YES; Platelet Count 263 K/mm3 (150-450); RBC Distribution Width CV 12.5 % (11.6-14.6); RBC Distribution Width SD 42.7 fl (35.1-43.9); Red Blood Count 4.44 M/mm3 (4.2-5.4); White Blood Count 12.3 K/mm3 (4.4-11.0)
[2022-05-03 18:03] LABS: Differential Indicated SCAN CRITERIA MET
[2022-05-03 18:22] LABS: Anisocytosis RARE; Macrocytosis RARE; Platelet Estimate ADEQUATE (ADEQ); Red Cell Morphology N CHROM NORMAL (NORM C&C)
[2022-05-03 18:28] LABS: ALB/GLOB Ratio 1.2 RATIO (0.9-2.4); AST(SGOT) 20 U/L (15-37); Alanine Aminotransfer ALT/SGPT 18 U/L (13-56); Albumin, Serum 3.9 g/dL (3.2-5.0); Alkaline Phosphatase 101 U/L (45-117); Anion Gap 10 (5-15); BUN 8 mg/dL (7-18); BUN/Creat Ratio 10.7 RATIO (10-20); Calcium,Total 9.4 mg/dL (8.5-10.1); Chloride 102 mmol/L (98-107); Creatinine, Serum 0.74 mg/dL (0.55-1.02); EST Glomerular Filtration Rate 81 mL/min (>60); Est Glom Filt Rate - Afr Amer 98 mL/min (>60); Globulin 3.2 g/dL (2.2-4.2); Glucose 76 mg/dL (74-106); Potassium 3.9 mmol/L (3.5-5.1); Protein, Total 7.1 g/dL (6.4-8.2); Sodium Level 138 mmol/L (136-145)
[2022-05-04 15:38] LABS: Pathologist Review Reviewed
== END | disposition home or self-care (01) ==
LOC: MTLAB 15:06
PROVIDERS: PCP Family Medicine Geriatric Medicine; Referring Provider Internal Medicine Rheumatology; Visit Provider Internal Medicine Rheumatology
DX: M06.4 Inflammatory polyarthropathy (principal); Z79.899 Other long term (current) drug therapy; M17.0 Bilateral primary osteoarthritis of knee; M47.897 Other spondylosis, lumbosacral region; K22.70 Barrett's esophagus without dysplasia; F32.9 Major depressive disorder, single episode, unspecified; E03.9 Hypothyroidism, unspecified; E78.5 Hyperlipidemia, unspecified
CPT/HCPCS: 36415; 80053; 85025

== ENCOUNTER → 2022-05-05 | Outpatient (CLI) | payer MEDICARE, SELFPAY ==
[2022-05-05 12:39] LABS: Absolute Lymphocyte Count 2.75 X10^3/uL (0.83-4.51); Absolute Neutrophil Count 2.3 X10^3/uL (2.0-7.7); Basophil# 0.03 X10^3/uL; Basophil% 0.4 % (0-1); Eosinophil# 0.13 X10^3/uL; Eosinophils% 1.9 % (0-5); Hematocrit 42.7 % (37-47); Hemoglobin 13.1 g/dL (12.0-15.0); Lymphocyte # 2.75 X10^3/ul (0.83-4.51); Lymphocyte % 40.5 % (19-41); Mean Corp Hgb Conc 30.7 g/dL (32-36); Mean Corpuscular Hgb 29.4 pg (27.0-32.0); Mean Platelet Vol. 11.5 fl (6.2-12.0); Monocyte# 1.47 X10^3/uL; Monocyte% 21.6 % (0-10); NRBC Flagged by Analyzer 0 % (0-5); Neutrophil # 2.34 X10^3/uL (2.7-7.7); Neutrophil % 34.6 % (47-70); Platelet Count 252 K/mm3 (150-450); RBC Distribution Width CV 12.8 % (11.6-14.6); RBC Distribution Width SD 45.1 fl (35.1-43.9); Red Blood Count 4.45 M/mm3 (4.2-5.4); White Blood Count 6.8 K/mm3 (4.4-11.0)
[2022-05-05 12:51] LABS: Vitamin D,25 Hydroxy 32.4 ng/mL
[2022-05-05 13:07] LABS: ALB/GLOB Ratio 0.9 RATIO (0.9-2.4); AST(SGOT) 20 U/L (15-37); Alanine Aminotransfer ALT/SGPT 22 U/L (13-56); Albumin, Serum 3.5 g/dL (3.2-5.0); Alkaline Phosphatase 100 U/L (45-117); Anion Gap 6 (5-15); BUN 5 mg/dL (7-18); BUN/Creat Ratio 7.7 RATIO (10-20); Calcium,Total 8.9 mg/dL (8.5-10.1); Chloride 107 mmol/L (98-107); Cholesterol 147 mg/dL (200); Creatinine, Serum 0.65 mg/dL (0.55-1.02); EST Glomerular Filtration Rate 95 mL/min (>60); Est Glom Filt Rate - Afr Amer 115 mL/min (>60); Globulin 3.9 g/dL (2.2-4.2); Glucose 77 mg/dL (74-106); High Density Lipoprotein 58 mg/dL; Protein, Total 7.4 g/dL (6.4-8.2); Sodium Level 142 mmol/L (136-145); Thyroid Stim Hormone (TSH) 2.77 uIU/mL (0.358-3.74); Triglycerides 209 mg/dL; Very Low Density Lipoprotein 42 mg/dL (5-40)
== END | disposition home or self-care (01) ==
LOC: POLAB3 10:38
PROVIDERS: PCP Family Medicine Geriatric Medicine; Visit Provider Family Medicine Geriatric Medicine
DX: E55.9 Vitamin D deficiency, unspecified (principal); I10 Essential (primary) hypertension; E78.5 Hyperlipidemia, unspecified
CPT/HCPCS: 36415; 80053; 80061; 82306; 84443; 85025

== ENCOUNTER → 2022-08-04 | Outpatient (CLI) | payer MEDICARE, SELFPAY ==
[2022-08-04 13:31] LABS: Absolute Lymphocyte Count 3.59 X10^3/uL (0.83-4.51); Absolute Neutrophil Count 4.5 X10^3/uL (2.0-7.7); Basophil# 0.03 X10^3/uL; Basophil% 0.3 % (0-1); Eosinophil# 0.07 X10^3/uL; Eosinophils% 0.7 % (0-5); Hematocrit 42.4 % (37-47); Hemoglobin 13.1 g/dL (12.0-15.0); Lymphocyte # 3.59 X10^3/ul (0.83-4.51); Lymphocyte % 36.3 % (19-41); Mean Corp Hgb Conc 30.9 g/dL (32-36); Mean Corpuscular Volume 93.8 fL (81-99); Mean Platelet Vol. 11.3 fl (6.2-12.0); Monocyte# 1.63 X10^3/uL; Monocyte% 16.5 % (0-10); NRBC Flagged by Analyzer 0 % (0-5); Neutrophil # 4.53 X10^3/uL (2.7-7.7); Neutrophil % 45.7 % (47-70); POSITIVE DIFFERENTIAL YES; Platelet Count 248 K/mm3 (150-450); RBC Distribution Width CV 13.1 % (11.6-14.6); RBC Distribution Width SD 44.3 fl (35.1-43.9); Red Blood Count 4.52 M/mm3 (4.2-5.4); White Blood Count 9.9 K/mm3 (4.4-11.0)
[2022-08-04 13:33] LABS: Differential Indicated SCAN CRITERIA MET
[2022-08-04 13:53] LABS: Vitamin D,25 Hydroxy 27.5 ng/mL
[2022-08-04 14:02] LABS: AST(SGOT) 22 U/L (15-37); Alanine Aminotransfer ALT/SGPT 10 U/L (13-56); Albumin, Serum 3.6 g/dL (3.2-5.0); Alkaline Phosphatase 99 U/L (45-117); Anion Gap 7 (5-15); BUN 9 mg/dL (7-18); BUN/Creat Ratio 10.8 RATIO (10-20); Calcium,Total 9.1 mg/dL (8.5-10.1); Chloride 104 mmol/L (98-107); Cholesterol 163 mg/dL (200); Creatinine, Serum 0.83 mg/dL (0.55-1.02); EST Glomerular Filtration Rate 71 mL/min (>60); Est Glom Filt Rate - Afr Amer 86 mL/min (>60); Globulin 3.7 g/dL (2.2-4.2); Glucose 82 mg/dL (74-106); High Density Lipoprotein 64 mg/dL; Potassium 3.8 mmol/L (3.5-5.1); Protein, Total 7.3 g/dL (6.4-8.2); Sodium Level 140 mmol/L (136-145); Triglycerides 223 mg/dL; Very Low Density Lipoprotein 45 mg/dL (5-40)
== END | disposition home or self-care (01) ==
LOC: LAB 12:20
PROVIDERS: PCP Family Medicine Geriatric Medicine; Referring Provider Family Medicine Geriatric Medicine; Visit Provider Family Medicine Geriatric Medicine
DX: E55.9 Vitamin D deficiency, unspecified (principal); I10 Essential (primary) hypertension; E78.5 Hyperlipidemia, unspecified
CPT/HCPCS: 36415; 80053; 80061; 82306; 84443; 85025

== ENCOUNTER → 2022-09-07 | Outpatient (CLI) | payer MEDICARE, SELFPAY ==
--- NOTE | 2022-09-07 12:46 | BI_ITS ---
MAMMOGRAPHY - BILATERAL SCREENING REASON FOR EXAM: Female, 72 years old. Routine annual screening examination. PERTINENT HISTORY: Non-contributory. One week history of bilateral breast tenderness. TECHNIQUE: Digital bilateral breast blue (3D mammographic acquisition) in the CC and MLO projections. 2-D mediolateral oblique (MLO) and craniocaudad (CC) views of both breasts were obtained. CAD: Full Field Digital Mammography with Computer Added Detection was performed. COMPARISON: Comparison is made with prior study dated July 01, 2021 and June 10, 2020. FINDINGS: Breast Composition: The breasts are almost entirely fatty. There are no dominant masses or suspicious calcifications. No other significant abnormalities are identified. There has been no significant change since the prior study. BI/SCRN MAMM (CAD)W/BLUE BILAT IMPRESSION: Stable bilateral screening mammogram. Yearly follow-up mammogram recommended. (A) ASSESSMENT CATEGORY: BIR ADS Category 1: Negative. A letter regarding these results will be sent to the patient by the facility within 30 days. Approximately 10% of breast cancers are not detected by mammography. A normal mammogram should not delay biopsy of a clinically suspicious abnormality. [id number] Electronically Signed: Chan Bowers MD at 13:39 EDT ,
== END | disposition home or self-care (01) ==
LOC: OPBI 12:45
PROVIDERS: PCP Family Medicine Geriatric Medicine; Referring Provider Family Medicine Geriatric Medicine; Visit Provider Family Medicine Geriatric Medicine
DX: Z12.31 Encounter for screening mammogram for malignant neoplasm of breast (principal)
CPT/HCPCS: 77063; 77067

== ENCOUNTER 2022-09-13 16:27 | Inpatient (IN) | payer MEDICARE, SELFPAY ==
[2022-09-13 16:28] VITALS: BP 149/96; PULSE 97; RESP 18; TEMP 36; O2SAT 99
--- NOTE | 2022-09-13 17:36 | EKG12_ITS ---
Test Reason : FALL Blood Pressure : / mmHG Vent. Rate : 098 BPM Atrial Rate : 098 BPM P-R Int : 140 ms QRS Dur : 084 ms QT Int : 352 ms P-R-T Axes : 013 -14 002 degrees QTc Int : 449 ms Normal sinus rhythm Minimal voltage criteria for LVH, may be normal variant ( R in aVL ) Inferior infarct , age undetermined Abnormal ECG Confirmed by ZAC SHAH, MARIAN ([id number]), commercial production editor MURTAZA RODRIGUEZ ([id number]) on 09/15/2022 9:09:09 AM Referred By: ADAM Confirmed By:MARIAN FRANK MD
--- NOTE | 2022-09-13 17:36 | CT_ITS ---
STUDY: CT Spine Cervical W/O Contrast Injection 09/13/2022 6:41 PM REASON FOR EXAM: Female, 72 years old. NECK PAIN polytrauma HISTORY: NECK PAIN polytrauma TECHNIQUE: High resolution transaxial imaging was performed without intravenous administration of contrast material. Sagittal and coronal images were reconstructed. Individualized dose optimization techniques were used for this CT. COMPARISON: None FINDINGS: Normal craniovertebral junction. Normal anterior atlantoaxial articulation. Normal odontoid process. Normal cervical lordosis. Normal vertebral bodies and posterior osseous elements. C2-3: Normal endplates. Normal disc height and morphology. Normal central canal and intervertebral neuroforamina. C3-4: Loss of intervertebral disc height. There is endplate spondylosis of the vertebral body. Normal central canal and intervertebral neuroforamina. There is bilateral facet arthropathy. C4-5: Loss of intervertebral disc height. There is endplate spondylosis of the vertebral body. Normal central canal and intervertebral neuroforamina. There is bilateral facet arthropathy. C5-6: Loss of intervertebral disc height. There is endplate spondylosis of the vertebral body. Normal central canal and intervertebral neuroforamina. There is bilateral facet arthropathy. C6-7: Loss of intervertebral disc height. There is endplate spondylosis of the vertebral body. Normal central canal and intervertebral neuroforamina. There is bilateral facet arthropathy. C7-T1: Normal endplates. Normal disc height and morphology. Normal central canal and intervertebral neuroforamina. Normal visualized soft tissue structures. CT/Spine Cervical without Contras IMPRESSION: (NOT LISTED IN ORDER OF SIGNIFICANCE) Multilevel degenerative changes, as described above. Electronically Signed: Pablo Guerra MD at 18:43 EDT ,
--- NOTE | 2022-09-13 17:36 | RAD_ITS ---
EXAM: XR PELVIS, 1 OR 2 VIEWS CLINICAL INDICATION: injury TECHNIQUE: Frontal view of the pelvis. This report was created using [employer] report generation technology. COMPARISON: None. FINDINGS: BONES/JOINTS: Left impacted intertrochanteric fracture. Medial displacement of the lesser trochanter. Degenerative findings in the lumbar spine. SOFT TISSUES: Tubal ligation clips in the pelvis. No soft tissue swelling or gas. RAD/Pelvis 1 or 2 Views IMPRESSION: Left impacted intertrochanteric fracture. Medial displacement of the lesser trochanter. Electronically Signed: Pablo Guerra MD at 18:43 EDT ,
--- NOTE | 2022-09-13 17:36 | CT_ITS ---
STUDY: CT BRAIN WITHOUT CONTRAST REASON FOR EXAM: Female, 72 years old. head injury Individualized dose optimization techniques were used for this CT. TECHNIQUE: Transaxial CT imaging of the brain was performed without administration of intravenous contrast material. COMPARISON: None FINDINGS: There are calcifications around the carotid artery. These are noted in the cavernous carotid arteries. Normal calvarium. Normal soft tissues. There is mild cerebral atrophy with widening of the extra-axial spaces and ventricular dilatation. There are areas of decreased attenuation within the white matter tracts of the supratentorial brain, consistent with microvascular disease changes. Normal basal ganglia and thalami. Normal brainstem. There is mild cerebellar atrophy. There is no intracranial hemorrhage. There are no findings of an acute ischemic infarction. Normal visualized paranasal sinuses. ASPECTS Score for Acute Strokes: 02/28 CT/Brain/Head without Contrast IMPRESSION: There are no acute findings. Chronic involutional changes of the brain. Electronically Signed: Pablo Guerra MD at 18:40 EDT ,
--- NOTE | 2022-09-13 17:39 | ED.VIS.FALL ---
HPI HPI - Fall History of Present Illness Chief Complaint: Fall Informant: patient and family Narrative Narrative: Patient here with daughter private vehicle mechanical fall pain in left hip and upper leg. Patient reports return from outpatient spinal injection unclear exactly what performed by Dr. Levy at 10 AM. she walked in the house felt unsteady tried to grab her 's walker it with out under her falling back hitting the back of her head. No loss of consciousness. Patient does not get into coagulation medicines. She is unable to ambulate needed two-person assist onto the rolling walker with a seat got her to the car and brought her in. Pain with movement of that hip. Denies any allergies. Prior similar symptoms: No PFSH PFSH Medical History (Updated 09/13/22 @ 23:[address] Tra Hamilton DO) Arthritis Cataracts, bilateral Hemorrhoids IBS (irritable bowel syndrome) Osteoarthritis Thyroid disease Home Medications pravastatin 40 mg tablet 40 mg PO QHS CHOLESTEROL 03/22/17 [History Last Taken 09/12/22] calcium carbonate 600 mg-vitamin D3 5 mcg (200 unit) tablet 1 tab PO BID SUPPLEMENT 09/13/22 [History Last Taken 09/12/22] carbidopa 25 mg-levodopa 100 mg tablet 1 tab PO TID 09/13/22 [History Last Taken 09/12/22] citalopram 40 mg tablet 40 mg PO DAILY DEPRESSION 09/13/22 [History Last Taken 09/12/22] folic acid 1 mg tablet 2 mg PO DAILY SUPPLEMENT 09/13/22 [History Last Taken 09/12/22] hydroxychloroquine 200 mg tablet 400 mg PO DAILY RHEUMATOID ARTHRITIS 09/13/22 [History Last Taken 09/12/22] levothyroxine 75 mcg tablet 75 mcg PO DAILY THYROID 09/13/22 [History Last Taken 09/12/22] methotrexate sodium 2.5 mg tablet 17.5 mg PO WE 09/13/22 [History Last Taken 09/07/22] multivitamin 1 tab PO DAILY SUPPLEMENT 09/13/22 [History Last Taken 09/12/22] olanzapine 7.5 mg tablet 7.5 mg PO DAILY MOOD 09/13/22 [History Last Taken 09/12/22] omeprazole 40 mg capsule,delayed release 40 mg PO DAILY ACID REFLUX 09/13/22 [History Last Taken 09/12/22] potassium chloride 20 mEq tablet,extended release(part/cryst) 20 meq PO BID SUPPLEMENT 09/13/22 [History Last Taken 09/12/22] prednisone 10 mg tablet 10 mg PO DAILY PRN FLARE-UPS 09/13/22 [History Last Taken Unknown] Allergy/AdvReac Type Severity Reaction Status Date / Time linaclotide [From Linzess] Allergy Mild chest Verified 09/13/22 16:30 tightness histamine phosphate Allergy Unknown Verified 09/13/22 16:30 [From Histatrol] Family History Other Heart disease Surgical History History of knee replacement History of tubal ligation Social History Smoking Status: Never smoker alcohol intake: never substance use type: does not use what type of physical activity do you participate in: walking frequency: 1-2 times per week ROS ROS ED Constitutional Constitutional ED: Denies chills, fever(s) or sweats Eyes Eyes: Denies change in vision ENT ENT ED: Denies dysphagia or sore throat Cardiovascular Cardiovascular: Denies chest pain, leg edema, palpitations or racing heartbeat Respiratory/Chest Respiratory/Chest: Denies cough, dyspnea or dyspnea on exertion Gastrointestinal Gastrointestinal: Denies abdominal pain, diarrhea, nausea or vomiting Genitourinary Genitourinary ED: Denies dysuria, hematuria or urinary frequency Musculoskeletal Musculoskeletal: Reports extremity pain; Denies back pain or neck pain Integumentary Denies rash or wounds Neurologic Neurologic: Reports headache(s); Denies paresthesias or weakness EXAM Physical Exam Const Vital Signs: 09/13/22 16:28 09/13/22 19:16 Temperature 96.8 F L Temperature Source Temporal Pulse Rate 97 95 Respiratory Rate 18 18 Blood Pressure 149/96 H 128/72 H Blood Pressure Mean 113 90 Pulse Ox 99 91 Oxygen Delivery Method Room Air Room Air Positive well nourished and well developed Constitutional Narrative: GCS 15 General Appearance ED: well developed and NAD HEENT Reports moist mucous membranes HEENT Narrative: Small scalp hematoma left parietal, no hemotympanums normocephalic Eyes PERRL, EOMs intact bilaterally and conjunctivae normal General Eye ED: Yes normal appearance of both eyes Neck no lymphadenopathy and supple General: Negative for tenderness Chest Wall Chest: Negative for tenderness Resp normal respiratory effort and normal air movement Effort and Inspection: symmetric chest movement; Negative for respiratory distress Cardio regular rate, regular rhythm and no murmurs Peripheral Pulses: pulses 2+ throughout GI normal to inspection, nondistended, normoactive bowel sounds and non-tender Palpation: Negative for guarding or rebound tenderness present Back/Spine no CVA tenderness and no thoracic nor lumbar tenderness Extremity Extremity Narrative: Upper extremities full range of motion. Right lower extremity nontender. Left lower extremity logroll did not elicit significant pain however there is tender palpation upper proximal femur, no gross deformities. No knee tenderness. Neuro vas intact distally. General Extremety ED: Negative for edema or tenderness General Extremity: Negative for edema Neuro oriented x3, CN's II-XII intact bilaterally and no sensory deficits noted Sensorium / Orientation: awake and alert Skin no rashes or lesions noted and no wounds MDM MDM MDM Narrative Medical decision making narrative: Interventions / MDM: Differential diagnosis: Left lower extremity fracture hip/femur, intracranial hemorrhage, fall Diagnosis considered but do not suspect: N/A My EKG interpretation: Normal sinus rhythm with no acute findings. Imaging independently reviewed and interpreted by myself: CT head and neck: No fracture or intracranial hemorrhage also read by radiology. Femur with pelvis x-rays 4 views: Impacted intratrochanter fracture with avulsion of the lesser trochanteric. Chest x-ray 1 view: No acute process. External documents reviewed: N/A Test considered but not ordered:N/A ED course: Patient mechanical fall unable to bear weight. Trauma scans head and neck were negative IV established morphine given. X-rays left hip and femur intra-articular impacted fracture. She had we discussion total knee [address] Frances. I discussed with him, no further imaging as he plans to fix tomorrow. She did have labs with leukocytosis 24, recent injection likely with dexamethasone. Chest x-ray negative urine noted. Re-evaluation: stable Disposition discussed with patient/family/significant other: Patient and daughter Case discussed with consulting clinician: Orthopedist Dr. Frances, hospitalist Dr. Wan. Lab Data Attestation: I reviewed the patient's lab results. Labs: Laboratory Results - last 24 hr 09/13/22 09/13/22 09/13/22 17:47 17:47 17:47 WBC 24.6 H RBC 4.37 Hgb 12.7 Hct 40.8 MCV 93.4 MCH 29.1 MCHC 31.1 L RDW Std Deviation 45.3 H RDW Coeff of Edwar 13.4 Plt Count 242 MPV 10.8 Immature Gran % (Auto) 1.500 H Neut % (Auto) 81.6 H Lymph % (Auto) 3.9 L Jay % (Auto) 9.8 Eos % (Auto) 3.0 Baso % (Auto) 0.2 Absolute Neuts (auto) 20.1 H Absolute Lymphs (auto) 0.96 Nucleated RBC % 0 Differential Comment SEE COMMENTS Diff Path Review May foll Toxic Granulation RARE Platelet Estimate ADEQUATE RBC Morphology N CHROM Anisocytosis RARE Macrocytosis RARE PT 12.7 INR 1.0 APTT 25.5 Sodium 131 L Potassium 4.2 Chloride 99 Carbon Dioxide 26.0 Anion Gap 6 BUN 9 Creatinine 0.75 Estim Creat Clear Calc 40.83 Est GFR (MDRD) Af Amer 97 Est GFR (MDRD) Non-Af 80 BUN/Creatinine Ratio 11.9 Glucose 130 H Calcium 9.1 Radiography Diagnostic Testing: Clinical Impression(s) from Imaging Studies Brain CT 09/13/22 17:36 IMPRESSION: There are no acute findings. Chronic involutional changes of the brain. Electronically Signed: Pablo Guerra MD at 18:40 EDT , Cervical Spine CT 09/13/22 17:36 IMPRESSION: (NOT LISTED IN ORDER OF SIGNIFICANCE) Multilevel degenerative changes, as described above. Electronically Signed: Pablo Guerra MD at 18:43 EDT , Pelvis X-Ray 09/13/22 17:36 IMPRESSION: Left impacted intertrochanteric fracture. Medial displacement of the lesser trochanter. Electronically Signed: Pablo Guerra MD at 18:43 EDT , Femur X-Ray 09/13/22 18:11 IMPRESSION: Left impacted intertrochanteric fracture. Medial displacement of the lesser trochanter. Electronically Signed: Pablo Guerra MD at 18:39 EDT , Chest X-Ray 09/13/22 20:13 IMPRESSION: There are no acute findings. Electronically Signed: Pablo Guerra MD at 20:35 EDT , Discharge Plan Dx/Rx/DC Orders Clinical Impression: Closed fracture of left hip, Leukocytosis, CHI (closed head injury), Fall Disposition Disposition: Acute Care Hospital [facility] Discharge Date/Time: 09/13/22 21:41
[2022-09-13] MEDS: Ondansetron 4 MG/2 ML Vial IV (17:49)
[2022-09-13] MEDS: Morphine 4 MG/ML Syringe IV (17:50)
[2022-09-13 18:09] LABS: Absolute Lymphocyte Count 0.96 X10^3/uL (0.83-4.51); Absolute Neutrophil Count 20.1 X10^3/uL (2.0-7.7); Basophil# 0.06 X10^3/uL; Basophil% 0.2 % (0-1); Eosinophil# 0.75 X10^3/uL; Hematocrit 40.8 % (37-47); Hemoglobin 12.7 g/dL (12.0-15.0); Lymphocyte # 0.96 X10^3/ul (0.83-4.51); Lymphocyte % 3.9 % (19-41); Mean Corp Hgb Conc 31.1 g/dL (32-36); Mean Corpuscular Hgb 29.1 pg (27.0-32.0); Mean Corpuscular Volume 93.4 fL (81-99); Mean Platelet Vol. 10.8 fl (6.2-12.0); Monocyte# 2.41 X10^3/uL; Monocyte% 9.8 % (0-10); NRBC Flagged by Analyzer 0 % (0-5); Neutrophil # 20.07 X10^3/uL (2.7-7.7); Neutrophil % 81.6 % (47-70); POSITIVE DIFFERENTIAL YES; POSITIVE MORPHOLOGY YES; Platelet Count 242 K/mm3 (150-450); RBC Distribution Width CV 13.4 % (11.6-14.6); RBC Distribution Width SD 45.3 fl (35.1-43.9); Red Blood Count 4.37 M/mm3 (4.2-5.4); White Blood Count 24.6 K/mm3 (4.4-11.0)
--- NOTE | 2022-09-13 18:11 | RAD_ITS ---
EXAM: XR LEFT FEMUR, 2 VIEWS CLINICAL INDICATION: injury FELL TODAY WHILE TRYING TO GET UP TO USE WALKER, LEFT HIP/THIGH PAIN, HIT LEFT SIDE OF HEAD -THINNERS, -LOC TECHNIQUE: Frontal and lateral views of the left femur. This report was created using [employer] report generation technology. COMPARISON: 11.08.19 FINDINGS: BONES/JOINTS: Left impacted intertrochanteric fracture. Medial displacement of the lesser trochanter. Total knee left arthroplasty. SOFT TISSUES: Unremarkable. No soft tissue swelling or gas. No radiopaque foreign body. RAD/Femur Min 2 Views IMPRESSION: Left impacted intertrochanteric fracture. Medial displacement of the lesser trochanter. Electronically Signed: Pablo Guerra MD at 18:39 EDT ,
[2022-09-13 18:12] LABS: Prothrombin Time (Protime)PT. 12.7 SECONDS (11.7-14.9)
[2022-09-13 18:13] LABS: Partial Thromboplast Time 25.5 Seconds (24.1-36.2)
[2022-09-13 18:20] VITALS: BMI 38.0
[2022-09-13 18:29] LABS: Anion Gap 6 (5-15); BUN 9 mg/dL (7-18); BUN/Creat Ratio 11.9 RATIO (10-20); Calcium,Total 9.1 mg/dL (8.5-10.1); Chloride 99 mmol/L (98-107); Creatinine, Serum 0.75 mg/dL (0.55-1.02); EST Glomerular Filtration Rate 80 mL/min (>60); Est Glom Filt Rate - Afr Amer 97 mL/min (>60); Estimated Creatinine Clearance 40.83 ml/min; Glucose 130 mg/dL (74-106); Potassium 4.2 mmol/L (3.5-5.1); Sodium Level 131 mmol/L (136-145)
[2022-09-13 18:37] LABS: Differential Indicated SCAN CRITERIA MET
[2022-09-13 18:50] LABS: Anisocytosis RARE; Differential Comment SEE COMMENTS; Macrocytosis RARE; Platelet Estimate ADEQUATE (ADEQ); Red Cell Morphology N CHROM NORMAL (NORM C&C); Toxic Granulation RARE
[2022-09-13 19:16] VITALS: BP 128/72; PULSE 95; RESP 18; O2SAT 91
--- NOTE | 2022-09-13 20:13 | RAD_ITS ---
STUDY: XR Chest 1 View 09/13/2022 8:15 PM REASON FOR EXAM: Female, 72 years old. CHEST PAIN preop COMPARISON: 3.24.21 TECHNIQUE: XR Chest 1 View FINDINGS: There is no demonstrated pleural abnormality. Normal heart size. Normal mediastinum. Normal ankita. Prominent appearing increased interstitial lung markings. Normal visualized pulmonary arteries. There is atherosclerotic calcification of the aortic arch with tortuosity. There are diffuse degenerative changes of the visualized thoracic spine. There is degenerative osteoarthritis of the bilateral shoulders. There is no demonstrated abnormality of the visualized soft tissue structures of the upper abdomen. RAD/Chest 1 View (Portable) IMPRESSION: There are no acute findings. Electronically Signed: Pablo Guerra MD at 20:35 EDT ,
[2022-09-13 20:32] LABS: Bacteria 0 SEEN /hpf (None Seen); Mucous, Urine 0 SEEN /hpf (<or=2+); Red Blood Cells-Urine 0 SEEN /hpf (0-5); Squamous Epithelial Cells - UA 0 SEEN /hpf (5-10)
--- NOTE | 2022-09-13 20:36 | PCM.HP.STD ---
HPI - General General Date of Admission: 09/13/22 Date of Service: 09/13/22 Chief Complaint: Fall with left hip pain HPI Narrative DANDRE PERAZA, is a 72 F with a significant history of chronic back pain; arthritis and a movement disorder who presents emergency department with a fall on the day of presentation. In regard to patient's chronic back pain she saw spinal surgeon, Dr. Levy for a procedure at her back on the same day of presentation. When she got home her legs were weak. She tried to grab onto her 's walker but could not and then she fell. Reportedly she hit her left thigh and hip; and the back of her head. She reports soreness at the back of her head and pain at her left hip and thigh. Patient reports baseline dyspnea of exertion She reports taking steroids as needed for back pain. Last time she took the steroids was about a week ago. At baseline patient walks without any assistive device except when she go to grocery shopping where she walks with the help of a cart. PENDING SALE TO [facility] Medical History Arthritis Cataracts, bilateral Hemorrhoids IBS (irritable bowel syndrome) Osteoarthritis Thyroid disease Home Medications pravastatin 40 mg tablet 40 mg PO QHS CHOLESTEROL 03/22/17 [History Last Taken 09/12/22] calcium carbonate 600 mg-vitamin D3 5 mcg (200 unit) tablet 1 tab PO BID SUPPLEMENT 09/13/22 [History Last Taken 09/12/22] carbidopa 25 mg-levodopa 100 mg tablet 1 tab PO TID 09/13/22 [History Last Taken 09/12/22] citalopram 40 mg tablet 40 mg PO DAILY DEPRESSION 09/13/22 [History Last Taken 09/12/22] folic acid 1 mg tablet 2 mg PO DAILY SUPPLEMENT 09/13/22 [History Last Taken 09/12/22] hydroxychloroquine 200 mg tablet 400 mg PO DAILY RHEUMATOID ARTHRITIS 09/13/22 [History Last Taken 09/12/22] levothyroxine 75 mcg tablet 75 mcg PO DAILY THYROID 09/13/22 [History Last Taken 09/12/22] methotrexate sodium 2.5 mg tablet 17.5 mg PO WE 09/13/22 [History Last Taken 09/07/22] multivitamin 1 tab PO DAILY SUPPLEMENT 09/13/22 [History Last Taken 09/12/22] olanzapine 7.5 mg tablet 7.5 mg PO DAILY MOOD 09/13/22 [History Last Taken 09/12/22] omeprazole 40 mg capsule,delayed release 40 mg PO DAILY ACID REFLUX 09/13/22 [History Last Taken 09/12/22] potassium chloride 20 mEq tablet,extended release(part/cryst) 20 meq PO BID SUPPLEMENT 09/13/22 [History Last Taken 09/12/22] prednisone 10 mg tablet 10 mg PO DAILY PRN FLARE-UPS 09/13/22 [History Last Taken Unknown] Allergy/AdvReac Type Severity Reaction Status Date / Time linaclotide [From Linzess] Allergy Mild chest Verified 09/13/22 16:30 tightness histamine phosphate Allergy Unknown Verified 09/13/22 16:30 [From Histatrol] Family History Other Heart disease Surgical History History of knee replacement History of tubal ligation Social History Smoking Status: Never smoker alcohol intake: never substance use type: does not use what type of physical activity do you participate in: walking frequency: 1-2 times per week ROS ROS Narrative Pertinent positives and pertinent negatives as noted in HPI. All other systems were reviewed and are negative Vital Signs Vital Signs Vital Signs: 09/13/22 16:28 09/13/22 19:16 Temperature 96.8 F L Temperature Source Temporal Pulse Rate 97 95 Respiratory Rate 18 18 Blood Pressure 149/96 H 128/72 H Blood Pressure Mean 113 90 Pulse Ox 99 91 Oxygen Delivery Method Room Air Room Air Weight Weight: 97.3 kg Body Mass Index (BMI) 38.0 Physical Exam Narrative Physical exam: General: Well-nourished, well-developed. Head: Normocephalic, atraumatic, no tenderness Eyes: Vision is grossly intact. EOMI ENT, no trauma, moist mucous membranes, no rhinorrhea Neck: Nontender, No thyromegaly. CVS: Regular rate and rhythm. S1-S2 present. No murmur, gallop or rub. Respiratory : clear to auscultation bilaterally, chest wall nontender Abdomen: Soft, nontender, nondistended, normal bowel sounds, no masses : Deferred Back: Nontender, no CVA tenderness. Extremities: Mildly tender left hip and thigh. Mild swelling of left hip and thigh. No tenderness of right hip. No swelling of right hip. Skin: Normal color, no trauma, abrasions Neuro: Alert, oriented, cranial nerves II through XII grossly intact. Psychiatry: Normal mood. Normal affect. Not depressed. Not anxious. Results Lab / Micro Data Result Diagrams: 09/13/22 17:47 09/13/22 17:47 Labs: Laboratory Results - last 24 hr 09/13/22 17:47: WBC 24.6 H, RBC 4.37, Hgb 12.7, Hct 40.8, MCV 93.4, MCH 29.1, MCHC 31.1 L, RDW Std Deviation 45.3 H, RDW Coeff of Edwar 13.4, Plt Count 242, MPV 10.8, Immature Gran % (Auto) 1.500 H, Neut % (Auto) 81.6 H, Lymph % (Auto) 3.9 L, Grundy % (Auto) 9.8, Eos % (Auto) 3.0, Baso % (Auto) 0.2, Absolute Neuts (auto) 20.1 H, Absolute Lymphs (auto) 0.96, Nucleated RBC % 0, Differential Comment SEE COMMENTS, Diff Path Review May foll, Toxic Granulation RARE, Platelet Estimate ADEQUATE, RBC Morphology N CHROM, Anisocytosis RARE, Macrocytosis RARE 09/13/22 17:47: PT 12.7, INR 1.0, APTT 25.5 09/13/22 17:47: Sodium 131 L, Potassium 4.2, Chloride 99, Carbon Dioxide 26.0, Anion Gap 6, BUN 9, Creatinine 0.75, Estim Creat Clear Calc 40.83, Est GFR (MDRD) Af Amer 97, Est GFR (MDRD) Non-Af 80, BUN/Creatinine Ratio 11.9, Glucose 130 H, Calcium 9.[address] 09/13/22 17:36 IMPRESSION: There are no acute findings. Chronic involutional changes of the brain. Electronically Signed: Pablo Guerra MD at 18:40 EDT , Cervical Spine CT 09/13/22 17:36 IMPRESSION: (NOT LISTED IN ORDER OF SIGNIFICANCE) Multilevel degenerative changes, as described above. Electronically Signed: Pablo Guerra MD at 18:43 EDT , Pelvis X-Ray 09/13/22 17:36 IMPRESSION: Left impacted intertrochanteric fracture. Medial displacement of the lesser trochanter. Electronically Signed: Pablo Guerra MD at 18:43 EDT , Femur X-Ray 09/13/22 18:11 IMPRESSION: Left impacted intertrochanteric fracture. Medial displacement of the lesser trochanter. Electronically Signed: Pablo Guerra MD at 18:39 EDT , Assessment & Plan Assessment/Plan (1) Closed left hip fracture: (2) Leukocytosis: (3) Obesity (BMI 30.0-34.9): PLAN: Plan Closed left hip fracture/fall Brain CT with no acute findings. Cervical spine CT with multilevel degenerative changes. Radiologist impression of pelvis x-ray: Left impacted intertrochanteric fracture. Medial displacement of the lesser trochanter. Hospitalist independent interpretation of pelvis x-ray: Reviewed and agrees with radiology interpretation. Femur x-ray:Left impacted intertrochanteric fracture. Medial displacement of the lesser trochanter. Chest x-ray showed: No acute findings. Emergent department doctor discussed the case with Dr. Frances. Inpatient consult for orthopedic surgery. Morphine IV as needed ordered. Tylenol as needed ordered. Bowel protocol and antiemetics IV ordered. Clear liquid after midnight and n.p.o. 2 hours before surgery. Check vitamin D level. 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 But with elevated risk for surgical site infection. Leukocytosis White count of 24,600. Bandemia of 1.5%. Query possible steroid shot at her back with spinal surgeon. Patient unable to name is a procedure that was done at the back. On home prednisone for back pain that she says she took about a week prior to presentation and likely not causing this leukocytosis. Trend CBC. History of movement disorder Persistent On home carbidopa levodopa which has been continued. Obesity: BMI of 34.0 kg per metere square. Complicates care. DVT prophylaxis SCDs ordered. Charges/Coding Visit Charges Inpatient E&M: 00384 Init Hosp L3
[2022-09-13 20:47] LABS: Color, Urine Yellow (Yellow); Glucose, Dipstick Normal (Normal); Ketone-Dipstick Negative (Negative); Leukocyte Esterase-Dipstick 25 /ul (Negative); Nitrite-Dipstick Negative (Negative); Occult Blood-Urine Negative /ul (Negative); Protein-Dipstick Negative (Negative); Urine Bilirubin Dipstick Negative (Negative); Urine Clarity Clear (Clear); Urine Urobilinogen Normal (Normal)
[2022-09-13 20:53] LABS: White Blood Cells 0-5 SEEN /hpf (0-5)
[2022-09-13 20:57] VITALS: BP 140/78; PULSE 100; RESP 18; TEMP 36.7; O2SAT 93
[2022-09-13 21:20] VITALS: BP 140/78; O2SAT 91
[2022-09-13 21:52] VITALS: BMI 34.0
[2022-09-13 21:58] VITALS: BP 168/87; PULSE 95; RESP 20; TEMP 36.9; O2SAT 95
[2022-09-13] MEDS: Potassium Chloride Oral Tablet 20 MEQ PO (23:02)
[2022-09-13] MEDS: Calcium Carb/Vitamin D 1 TABLET Tablet PO (23:03)
[2022-09-13] MEDS: Senna/Docusate Sodium 1 Tablet 2 TABLET PO (23:03)
[2022-09-13] MEDS: Carbidopa/Levodopa 25/100 Tablet PO (23:04)
[2022-09-13] MEDS: Lactated Ringers 1,000 ML 75 ML IV (23:11)
[2022-09-13] MEDS: MELATONIN 3 MG TABLET PO (23:12)
[2022-09-13] MEDS: Acetaminophen 325 MG Tablet 650 MG PO (23:12)
[2022-09-13] MEDS: Pravastatin 40 MG Tablet PO (23:12)
[2022-09-14] VITALS (12 sets, daily range): BP systolic 128–161; BP diastolic 66–91; PULSE 73–98; RESP 16–78; TEMP 36.2–37.2; O2SAT 88–100; BMI 34.0
[2022-09-14] MEDS: Morphine 4 MG/ML Syringe IV ×2 (04:51→09:49)
[2022-09-14] MEDS: 0.9% Saline Lock 10 ML Syringe IV ×3 (04:51→20:43)
[2022-09-14] MEDS: Carbidopa/Levodopa 25/100 Tablet PO ×3 (06:30→20:26)
[2022-09-14] MEDS: Levothyroxine 75 MCG Tablet PO (06:30)
[2022-09-14 06:32] LABS: Absolute Lymphocyte Count 1.37 X10^3/uL (0.83-4.51); Absolute Neutrophil Count 10.6 X10^3/uL (2.0-7.7); Basophil# 0.02 X10^3/uL; Basophil% 0.1 % (0-1); Hematocrit 35.9 % (37-47); Hemoglobin 11.2 g/dL (12.0-15.0); Lymphocyte # 1.37 X10^3/ul (0.83-4.51); Lymphocyte % 9.4 % (19-41); Mean Corp Hgb Conc 31.2 g/dL (32-36); Mean Corpuscular Hgb 29.3 pg (27.0-32.0); Mean Platelet Vol. 10.8 fl (6.2-12.0); Monocyte# 2.45 X10^3/uL; Monocyte% 16.9 % (0-10); NRBC Flagged by Analyzer 0 % (0-5); Neutrophil # 10.56 X10^3/uL (2.7-7.7); Neutrophil % 72.8 % (47-70); POSITIVE DIFFERENTIAL YES; Platelet Count 226 K/mm3 (150-450); RBC Distribution Width CV 13.7 % (11.6-14.6); RBC Distribution Width SD 46.3 fl (35.1-43.9); Red Blood Count 3.82 M/mm3 (4.2-5.4); White Blood Count 14.5 K/mm3 (4.4-11.0)
[2022-09-14 06:36] LABS: Differential Indicated SCAN CRITERIA MET
[2022-09-14 07:04] LABS: Differential Comment SCANNED
[2022-09-14 07:06] LABS: Anion Gap 5 (5-15); BUN 10 mg/dL (7-18); Calcium,Total 8.9 mg/dL (8.5-10.1); Chloride 103 mmol/L (98-107); Creatinine, Serum 0.66 mg/dL (0.55-1.02); EST Glomerular Filtration Rate 92 mL/min (>60); Est Glom Filt Rate - Afr Amer 112 mL/min (>60); Estimated Creatinine Clearance 40.83 ml/min; Glucose 124 mg/dL (74-106); Potassium 4.2 mmol/L (3.5-5.1); Sodium Level 134 mmol/L (136-145); Thyroid Stim Hormone (TSH) 1.05 uIU/mL (0.358-3.74)
[2022-09-14 08:21] LABS: Vitamin D,25 Hydroxy 34.5 ng/mL
[2022-09-14] MEDS: Citalopram 40 MG TABLET PO (08:53)
[2022-09-14] MEDS: Calcium Carb/Vitamin D 1 TABLET Tablet PO ×2 (08:53→20:25)
[2022-09-14] MEDS: OLANZapine 2.5 MG Tablet 7.5 MG PO (08:53)
[2022-09-14] MEDS: Pantoprazole Sodium 40 MG Tablet PO (08:53)
[2022-09-14] MEDS: Folic Acid 1 MG Tablet 2 MG PO (08:54)
[2022-09-14] MEDS: Senna/Docusate Sodium 1 Tablet 2 TABLET PO ×2 (08:54→20:26)
[2022-09-14] MEDS: Multivitamins,Therapeutic Tablet 1 TABLET PO (08:55)
[2022-09-14] MEDS: Potassium Chloride Oral Tablet 20 MEQ PO ×2 (08:55→20:26)
[2022-09-14] MEDS: Acetaminophen 325 MG Tablet 650 MG PO ×2 (08:57→20:24)
--- NOTE | 2022-09-14 09:45 | NURSING ---
0857 meds given with ensure clear
[2022-09-14] MEDS: proCHLORPERazine 10 MG/2 ML Vial 5 MG IV (09:50)
[2022-09-14] MEDS: Lactated Ringers 1,000 ML 75 ML IV ×2 (11:56→20:40)
[2022-09-14 13:19] LABS: Pathologist Review Reviewed
[2022-09-14 13:35] LABS: Pathologist Review Reviewed
--- NOTE | 2022-09-14 15:59 | CON.PCM.OR_ITS ---
HPI Consult Data Date of Consult: 09/14/22 HPI Narrative Reason for Consultation: Left hip fracture HPI Narrative: DANDRE PERAZA, is a 72 F with a history of low back pain and previous left total knee replacement and Parkinson's-like symptoms which is currently not definitively diagnosed but treated with carbidopa levodopa who presents today with left hip pain. Patient sees my partner for her back and did receive a corticosteroid injection in the lumbar spine yesterday. She noted weakness in the lower extremities. She was going to get up her chair using her 's walker when the walker gave out on her. She fell onto her left side and was unable to bear weight. Currently she has 9 out of 10 pain with motion better with immobilization. No associated new numbness tingling since the fall. Pain is located in the lateral hip and groin. Patient does ambulate with a shuffling gait. Her daughter is at bedside and reports that she does not normally use a cane or a walker. There appears to be some concern for Parkinson's from her primary care physician and she has been placed on carbidopa levodopa however the daughter cannot confirm a definitive diagnosis. She lives at home with her and her daughter. [facility] Medical History Arthritis Cataracts, bilateral Hemorrhoids IBS (irritable bowel syndrome) Osteoarthritis Thyroid disease Home Medications pravastatin 40 mg tablet 40 mg PO QHS CHOLESTEROL 03/22/17 [History Last Taken 09/12/22] calcium carbonate 600 mg-vitamin D3 5 mcg (200 unit) tablet 1 tab PO BID SUPPLEMENT 09/13/22 [History Last Taken 09/12/22] carbidopa 25 mg-levodopa 100 mg tablet 1 tab PO TID 09/13/22 [History Last Taken 09/12/22] citalopram 40 mg tablet 40 mg PO DAILY DEPRESSION 09/13/22 [History Last Taken 09/12/22] folic acid 1 mg tablet 2 mg PO DAILY SUPPLEMENT 09/13/22 [History Last Taken 09/12/22] hydroxychloroquine 200 mg tablet 400 mg PO DAILY RHEUMATOID ARTHRITIS 09/13/22 [History Last Taken 09/12/22] levothyroxine 75 mcg tablet 75 mcg PO DAILY THYROID 09/13/22 [History Last Taken 09/12/22] methotrexate sodium 2.5 mg tablet 17.5 mg PO WE 09/13/22 [History Last Taken 09/07/22] multivitamin 1 tab PO DAILY SUPPLEMENT 09/13/22 [History Last Taken 09/12/22] olanzapine 7.5 mg tablet 7.5 mg PO DAILY MOOD 09/13/22 [History Last Taken 09/12/22] omeprazole 40 mg capsule,delayed release 40 mg PO DAILY ACID REFLUX 09/13/22 [History Last Taken 09/12/22] potassium chloride 20 mEq tablet,extended release(part/cryst) 20 meq PO BID SUPPLEMENT 09/13/22 [History Last Taken 09/12/22] prednisone 10 mg tablet 10 mg PO DAILY PRN FLARE-UPS 09/13/22 [History Last Taken Unknown] Allergy/AdvReac Type Severity Reaction Status Date / Time linaclotide [From Linzess] Allergy Mild chest Verified 09/14/22 14:13 tightness histamine phosphate Allergy Unknown Verified 09/14/22 14:13 [From Histatrol] Family History Other Heart disease no significant family history Surgical History History of knee replacement History of tubal ligation Social History Smoking Status: Never smoker alcohol intake: never substance use type: does not use what type of physical activity do you participate in: walking frequency: 1-2 times per week ROS Constitutional Constitutional: Reports as per HPI Eyes Eyes: Reports as per HPI ENT HEENT: Reports as per HPI Cardiovascular Cardiovascular: Reports as per HPI Respiratory/Chest Respiratory/Chest: Reports as per HPI Gastrointestinal Gastrointestinal: Reports as per HPI Genitourinary Genitourinary: Reports as per HPI Musculoskeletal Musculoskeletal: Reports as per HPI Integumentary Integumentary: Reports as per HPI Neurologic Neurologic: Reports as per HPI Psychiatric Psychiatric: Reports as per HPI Vital Signs Vital Signs Vital Signs: 09/13/22 16:28 09/13/22 19:16 09/13/22 20:57 Temperature 96.8 F L 98.0 F Temperature Source Temporal Temporal Pulse Rate 97 95 100 Respiratory Rate 18 18 18 Respiratory Effort Respiratory Depth Respiratory Pattern Blood Pressure 149/96 H 128/72 H 140/78 H Blood Pressure Mean 113 90 98 Blood Pressure Source Blood Pressure Position Blood Pressure Location Pulse Ox 99 91 93 Oxygen Delivery Method Room Air Room Air Room Air Oxygen Flow Rate (L/min) 09/13/22 21:20 09/13/22 21:58 09/13/22 23:28 Temperature 98.5 F Temperature Source Oral Pulse Rate 95 Respiratory Rate 20 H Respiratory Effort Normal Respiratory Depth Normal Respiratory Pattern Normal Blood Pressure 140/78 H 168/87 H Blood Pressure Mean 98 114 Blood Pressure Source Monitor Blood Pressure Position Semi-Fowlers Blood Pressure Location Right Forearm Pulse Ox 91 95 Oxygen Delivery Method Room Air Room Air Room Air Oxygen Flow Rate (L/min) 09/14/22 03:55 09/14/22 04:00 09/14/22 04:06 Temperature 98.9 F Temperature Source Oral Pulse Rate 98 Respiratory Rate 18 Respiratory Effort Respiratory Depth Respiratory Pattern Blood Pressure 139/75 H Blood Pressure Mean 96 Blood Pressure Source Blood Pressure Position Blood Pressure Location Pulse Ox 88 95 Oxygen Delivery Method Room Air Nasal Cannula Nasal Cannula Oxygen Flow Rate (L/min) 2 2 09/14/22 07:26 09/14/22 08:23 09/14/22 09:46 Temperature 98.9 F Temperature Source Oral Pulse Rate 95 Respiratory Rate 18 Respiratory Effort Normal Non-Labored Respiratory Depth Normal Respiratory Pattern Normal Blood Pressure 129/66 H Blood Pressure Mean 87 Blood Pressure Source Monitor Blood Pressure Position Semi-Fowlers Blood Pressure Location Right Arm Pulse Ox 94 95 Oxygen Delivery Method Nasal Cannula Nasal Cannula Nasal Cannula Oxygen Flow Rate (L/min) 2 2 2 09/14/22 11:29 09/14/22 12:32 Temperature 98.2 F Temperature Source Oral Pulse Rate 82 Respiratory Rate 18 Respiratory Effort Respiratory Depth Respiratory Pattern Blood Pressure 128/69 H Blood Pressure Mean 88 Blood Pressure Source Monitor Blood Pressure Position Semi-Fowlers Blood Pressure Location Right Arm Pulse Ox 94 Oxygen Delivery Method Nasal Cannula Nasal Cannula Oxygen Flow Rate (L/min) 2 2 Weight Weight: 191 lb 12.835 oz Body Mass Index (BMI) 34.0 Physical Exam Const alert and oriented x3 General Appearance: cooperative HEENT normocephalic Eyes PERRL Neck no JVD Resp normal respiratory effort Cardio Cardio Narrative: Regular pulse rate GI non-distended Extremity Extremity Narrative: Left lower extremity: Skin clean, dry, and intact. Limb is shortened and externally rotated Motor is intact dorsiflexion, EHL and plantar flexion. Sensation is intact to light touch saphenous, murphy,l superficial peroneal, deep peroneal and tibial distributions. Calves are soft and supple. Skin no rashes or lesions noted Neuro moves all extremities Psych affect normal Medical Records Data Attestation: I reviewed the patient's medical records Lab / Micro Data Attestation: I reviewed the patient's lab results. Result Diagrams: 09/14/22 06:00 09/14/22 06:00 Labs: Laboratory Results - last 24 hr 09/13/22 17:47: WBC 24.6 H, RBC 4.37, Hgb 12.7, Hct 40.8, MCV 93.4, MCH 29.1, MCHC 31.1 L, RDW Std Deviation 45.3 H, RDW Coeff of Edwar 13.4, Plt Count 242, MPV 10.8, Immature Gran % (Auto) 1.500 H, Neut % (Auto) 81.6 H, Lymph % (Auto) 3.9 L , [place] % (Auto) 9.8, Eos % (Auto) 3.0, Baso % (Auto) 0.2, Absolute Neuts (auto) 20.1 H, Absolute Lymphs (auto) 0.96, Nucleated RBC % 0, Differential Comment SEE COMMENTS, Diff Path Review Reviewed, Toxic Granulation RARE, Platelet Estimate ADEQUATE, RBC Morphology N CHROM, Anisocytosis RARE, Macrocytosis RARE 09/13/22 17:47: PT 12.7, INR 1.0, APTT 25.5 09/13/22 17:47: Sodium 131 L, Potassium 4.2, Chloride 99, Carbon Dioxide 26.0, Anion Gap 6, BUN 9, Creatinine 0.75, Estim Creat Clear Calc 40.83, Est GFR (M DRD) Af Amer 97, Est GFR (MDRD) Non-Af 80, BUN/Creatinine Ratio 11.9, Glucose 130 H, Calcium 9.1 09/13/22 20:25: Urine Color Yellow, Urine Clarity Clear, Urine pH 7.0, Ur Specific [place] 1.010, Urine Protein Negative, Urine Glucose (UA) Normal, Urine Ketones Negative, Urine Occult Blood Negative, Urine Nitrite Negative, Urine Bilirubin Negative, Urine Urobilinogen Normal, Ur Leukocyte Esterase 25 H, Urine RBC 0 SEEN, Urine WBC 0-5 SEEN, Ur Squamous Epith Cells 0 SEEN, Urine Bacteria 0 SEEN, Urine Mucus 0 SEEN 09/14/22 06:00: Vitamin D 25-Hydroxy 34.5 09/14/22 06:00: WBC 14.5 H, RBC 3.82 L, Hgb 11.2 L, Hct 35.9 L, MCV 94.0, MCH 29.3, MCHC 31.2 L, RDW Std Deviation 46.3 H, RDW Coeff of Edwar 13.7, Plt Count 226, MPV 10.8, Immature Gran % (Auto) 0.800, Neut % (Auto) 72.8 H, Lymph % (Auto) 9.4 L, [place] % (Auto) 16.9 H, Eos % (Auto) 0.0, Baso % (Auto) 0.1, Abso lute Neuts (auto) 10.6 H, Absolute Lymphs (auto) 1.37, Nucleated RBC % 0, Differential Comment SCANNED, Diff Path Review Reviewed 09/14/22 06:00: Sodium 134 L, Potassium 4.2, Chloride 103, Carbon Dioxide 26.0, Anion Gap 5, BUN 10, Creatinine 0.66, Estim Creat Clear Calc 40.83, Est GFR (MDRD) Af Amer 112, Est GFR (MDRD) Non-Af 92, BUN/Creatinine Ratio 15.0, Glucose 124 H, Calcium 8.9, TSH 1.05 09/14/22 06:00: Blood Type O POSITIVE, Antibody Screen NEGATIVE Radiology Impression Brain CT 09/13/22 17:36 IMPRESSION: There are no acute findings. Chronic involutional changes of the brain. Electronically Signed: Pablo Guerra MD at 18:40 EDT Reading Location ID and State: [facility] / [place] , Service support , Cervical Spine CT 09/13/22 17:36 IMPRESSION: (NOT LISTED IN ORDER OF SIGNIFICANCE) Multilevel degenerative changes, as described above. Electronically Signed: Pablo Guerra MD at 18:43 EDT , Pelvis X-Ray 09/13/22 17:36 IMPRESSION: Left impacted intertrochanteric fracture. Medial displacement of the lesser trochanter. Electronically Signed: Pablo Guerra MD at 18:43 EDT , Femur X-Ray 09/13/22 18:11 IMPRESSION: Left impacted intertrochanteric fracture. Medial displacement of the lesser trochanter. Electronically Signed: Pablo Guerra MD at 18:39 EDT , Chest X-Ray 09/13/22 20:13 IMPRESSION: There are no acute findings. Electronically Signed: Pablo Guerra MD at 20:35 EDT , Images have been reviewed. I agree patient has comminuted intertrochanteric hip fracture. Assessment & Plan Assessment/Plan (1) Closed fracture of left hip: PLAN: Left intertrochanteric hip fracture: Natural history of the disease process have been discussed with the patient and her family who are at bedside. Patient was given the opportunity ask questions and voiced any concerns as well as her family members. Treatment options were discussed including nonoperative and operative interventions. Recommended treatment was cephalomedullary nail of the left hip. Risk and benefits of the procedure were discussed with the family and patient including but not limited to blood loss, DVTs, PEs, nervous damage, infection, the risk of anesthesia including loss of life. We also discussed nonunion, malunion and hardware failure/cut out. Patient and family demonstrate understanding and do wish to proceed with surgical intervention today. Currently patient is NPO. She has been cleared for surgery from the medicine service. Antibiotics on-call to the operating room we will proceed with surgery this evening. [facility] Office:
[2022-09-14] MEDS: Cefazolin 2 GM in 0.9% Normal Saline 100 ML IV (16:30)
--- NOTE | 2022-09-14 16:51 | RAD_ITS ---
INDICATION: IM RODDING EXAMINATION/TECHNIQUE: X-RAY - XR Hip Unilateral with Pelvis when performed; 4 intraoperative views COMPARISON: September 13, 2022. FINDINGS: Intraoperative images demonstrate ORIF for a left femoral intertrochanteric fracture. Bony fragments demonstrate improved alignment and approximation. RAD/HIP, UNI W/ Pelvis 2-3 Views IMPRESSION: Left femoral ORIF. Electronically Signed: Wilmer Lemon DO at 23:07 EDT ,
--- NOTE | 2022-09-14 17:00 | CASEMGMT ---
RN CM NOTE: Pt is out of room @ OR at this time. Initial RN CM assess to be competed at another time. Lisa FRANCOISN RN CM
--- NOTE | 2022-09-14 17:08 | PCM.PN.HOSP ---
Reason for Visit Reason for Visit: Diagnoses Elevated white blood cell count, unspecified (09/13/22) Obesity, unspecified (09/13/22) Fracture of unspecified part of neck of left femur, initial encounter for closed fracture (09/13/22) Subjective Subjective Patient was seen and examined earlier this morning, she appears medically stable for surgery today. Patient has no complaints of any chest pain or shortness of breath. Objective Data Objective Data Vital Signs: Vital Signs Temp Pulse Resp BP Pulse Ox O2 Del Method O2 Flow Rate 98.2 F 82 18 128/69 H 94 Nasal Cannula 2 09/14/22 12:32 09/14/22 12:32 09/14/22 12:32 09/14/22 12:32 09/14/22 12:32 09/14/22 12:32 09/14/22 12:32 Oxygen Flow Rate (L/min) 2 Oxygen Delivery Method Nasal Cannula Weight: 87 kg Body Mass Index (BMI) 34.0 Intake & Output: Intake and Output for Last 24 Hours 09/12/22 09/13/22 09/14/22 23:59 23:59 23:59 Intake Total 300 / 300 1256.25 / 1256.25 Output Total 580 / 580 Balance 300 / 300 676.25 / 676.25 Lab / Micro Data Result Diagrams: 09/14/22 06:00 09/14/22 06:00 Labs: Laboratory Results - last 24 hr 09/13/22 17:47: WBC 24.6 H, RBC 4.37, Hgb 12.7, Hct 40.8, MCV 93.4, MCH 29.1, MCHC 31.1 L, RDW Std Deviation 45.3 H, RDW Coeff of Edwar 13.4, Plt Count 242, MPV 10.8, Immature Gran % (Auto) 1.500 H, Neut % (Auto) 81.6 H, Lymph % (Auto) 3.9 L, [place] % (Auto) 9.8, Eos % (Auto) 3.0, Baso % (Auto) 0.2, Absolute Neuts (auto) 20.1 H, Absolute Lymphs (auto) 0.96, Nucleated RBC % 0, Differential Comment SEE COMMENTS, Diff Path Review Reviewed, Toxic Granulation RARE, Platelet Estimate ADEQUATE, RBC Morphology N CHROM, Anisocytosis RARE, Macrocytosis RARE 09/13/22 17:47: PT 12.7, INR 1.0, APTT 25.5 09/13/22 17:47: Sodium 131 L, Potassium 4.2, Chloride 99, Carbon Dioxide 26.0, Anion Gap 6, BUN 9, Creatinine 0.75, Estim Creat Clear Calc 40.83, Est GFR (MDRD) Af Amer 97, Est GFR (MDRD) Non-Af 80, BUN/Creatinine Ratio 11.9, Glucose 130 H, Calcium 9.1 09/13/22 20:25: Urine Color Yellow, Urine Clarity Clear, Urine pH 7.0, Ur Specific [place] 1.010, Urine Protein Negative, Urine Glucose (UA) Normal, Urine Ketones Negative, Urine Occult Blood Negative, Urine Nitrite Negative, Urine Bilirubin Negative, Urine Urobilinogen Normal, Ur Leukocyte Esterase 25 H, Urine RBC 0 SEEN, Urine WBC 0-5 SEEN, Ur Squamous Epith Cells 0 SEEN, Urine Bacteria 0 SEEN, Urine Mucus 0 SEEN 09/14/22 06:00: Vitamin D 25-Hydroxy 34.5 09/14/22 06:00: WBC 14.5 H, RBC 3.82 L, Hgb 11.2 L, Hct 35.9 L, MCV 94.0, MCH 29.3, MCHC 31.2 L, RDW Std Deviation 46.3 H, RDW Coeff of Edwar 13.7, Plt Count 226, MPV 10.8, Immature Gran % (Auto) 0.800, Neut % (Auto) 72.8 H, Lymph % (Auto) 9.4 L, [place] % (Auto) 16.9 H, Eos % (Auto) 0.0, Baso % (Auto) 0.1, Absolute Neuts (auto) 10.6 H, Absolute Lymphs (auto) 1.37, Nucleated RBC % 0, Differential Comment SCANNED, Diff Path Review Reviewed 09/14/22 06:00: Sodium 134 L, Potassium 4.2, Chloride 103, Carbon Dioxide 26.0, Anion Gap 5, BUN 10, Creatinine 0.66, Estim Creat Clear Calc 40.83, Est GFR (MDRD) Af Amer 112, Est GFR (MDRD) Non-Af 92, BUN/Creatinine Ratio 15.0, Glucose 124 H, Calcium 8.9, TSH 1.05 09/14/22 06:00: Blood Type O POSITIVE, Antibody Screen NEGATIVE Radiography Diagnostic Testing: Radiology Impression Brain CT 09/13/22 17:36 IMPRESSION: There are no acute findings. Chronic involutional changes of the brain. Electronically Signed: Pablo Guerra MD at 18:40 EDT , Cervical Spine CT 09/13/22 17:36 IMPRESSION: (NOT LISTED IN ORDER OF SIGNIFICANCE) Multilevel degenerative changes, as described above. Electronically Signed: Pablo Guerra MD at 18:43 EDT , Pelvis X-Ray 09/13/22 17:36 IMPRESSION: Left impacted intertrochanteric fracture. Medial displacement of the lesser trochanter. Electronically Signed: Pablo Guerra MD at 18:43 EDT , Femur X-Ray 09/13/22 18:11 IMPRESSION: Left impacted intertrochanteric fracture. Medial displacement of the lesser trochanter. Electronically Signed: Pablo Guerra MD at 18:39 EDT , Chest X-Ray 09/13/22 20:13 IMPRESSION: There are no acute findings. Electronically Signed: Pablo Guerra MD at 20:35 EDT , Physical Exam Const alert, oriented x3, no apparent distress and healthy appearing General Appearance: cooperative, well kempt and well developed Orientation / Consciousness: awake, oriented to person, oriented to place and oriented to time HEENT normocephalic, head/scalp atraumatic and moist oral mucous membranes Eyes PERRL, EOMs intact bilaterally and conjunctivae normal Neck supple, no JVD, thyroid normal and no carotid bruits General: trachea midline Resp normal respiratory effort, no retractions, no use of accessory muscles and clear to auscultation bilaterally Auscultation: Negative for rales, rhonchi or wheezes Cardio regular rate, regular rhythm, S1 normal heart sound, S2 normal heart sound, no murmurs, no rub and no gallops GI normal to inspection, nondistended, normoactive bowel sounds, soft to palpation, non-tender and non-distended Extremity Extremity Narrative: Left hip was not examined due to current left hip fracture Skin no rashes or lesions noted General Skin Exam: no breakdown Neuro oriented x3, CN's II-XII intact bilaterally, no focal motor deficits and no sensory deficits noted Sensorium / Orientation: awake, alert, oriented to person, oriented to place and oriented to time Speech: speech normal Psych affect normal Assessment & Plan Assessment/Plan (1) Closed fracture of left hip: PLAN: Plan 1. Left intertrochanteric hip fracture secondary to osteoporosis-patient appears medically stable for surgery at this time, according to orthopedic surgery documentation in her chart, she will undergo insertion of a cephalomedullary nail to the left hip today, she will be seen by PT and OT, she will require short-term senior care facility placement at the time of discharge from the hospital. #2 hypothyroidism-patient is currently on Synthroid #3 chronic depression-patient is currently on Lexapro chronically, this will be continued here #4 rheumatoid arthritis-patient is on hydroxychloroquine and methotrexate chronically, the methotrexate will be held during her hospitalization #5 hyperlipidemia-patient is on a statin currently #6 schizophrenia-patient is currently on Zyprexa #7 Parkinson's disease-I talked with the patient's PCP (Dr. Herrmann) he feels the patient does have Parkinson's disease and has placed her on Sinemet, this will be continued while she is in the hospital. Total clinical time spent by myself addressing the patient's medical issues, reviewing all of her data, and collaborating with patient's care team: 50 minutes Charges/Coding Visit Charges Inpatient E&M: 92610 Subs Hosp L3
--- NOTE | 2022-09-14 17:30 | OP.PCM_ITS ---
Report of Operation Date of Procedure: 09/14/22 Pre-Operative Diagnosis: Left intertrochanteric hip fracture Post-Operative Diagnosis: Left intertrochanteric hip fracture Surgery/Procedure Performed:: Left cephalomedullary hip nail Description of Surgical Findings:: Stable reduction Surgeon: Jorge Frances physician practice coordinator: None Type of Anesthesia: General Anesthesiologist: Eric Nesbitt Special Medications: Ancef Estimated Blood Loss (mL): 200 Fluids Replaced: 600 mL crystalloid Description of Procedure: Components used: 1. [employer] InterTAN nail short 10 mm 125 degree 2. [employer] InterTAN lag screw 95 mm 3. [employer]hew 30 millimeter interlocking screw Brief history operative indications: 72-year-old female who lives at home with her and daughter fell while using a walker and sustained a left intertrochanteric hip fracture. After extensive discussion including risk and benefits which include but are not limited to blood loss, PEs, DVTs, neurovascular damage, nonunions, malunions and screw cut out patient has elected to proceed with a left cephalo-medullary nail. Procedure: On the date of the procedure the patient's L hip was marked in the preoperative area and patient was taken back to the operating room. Anesthetic was administered and patient was transferred to the table were all bony prominence identified well-padded and the ipsilateral arm was placed across the chest. Patient was then translated down to the perineal post and the operative leg was placed in the boot while the nonoperative leg was lowered and secured. The operative leg was placed in traction and internal rotation and live fluoroscopy was used to verify adequate reduction. The operative leg was then prepped in a sterile fashion with chlorhexidine while the surgeon scrubbed. Upon reentering the room the operative extremity was draped in the standard orthopedic fashion. Skin incision was marked and a timeout was called. Everyone agreed upon the side, the site, the procedure be performed, patient's identity, and antibiotics given. Skin incision was made and the position of the entry guidepin was verified using live fluoroscopy. Once we were satisfied with our position the pin was advanced in the soft tissue protector was placed over the pin. The entry reamer was then advanced into the proximal portion of the femur. A guidewire was placed down the intramedullary canal and fluoroscopy was used to verify that the anterior cortex had not been breached distally as well as satisfactory distal positioning. We then used live fluoroscopy to verify the length of the nail and a [employer] Nephew InterTAN short by 10 mm 125 degree neck angle hip nail was selected. The nail was then attached to the manual training teacher and inserted into the intramedullary canal. The appropriate depth was verified and the skin incision for the lag screw was made. The lag screw guidepin was then placed under live fluoroscopy and when a satisfactory position was obtained the length of the screw was measured and the standard technique to drill for the lag screws was performed. The anti-rotation bar was used. At this time a 95mm lag screw was selected with its corresponding compression screw. The lag screw was then passed and traction was left off the leg. The compression screw was then passed and the fracture was compressed. The final position of the lag screw was verified under fluoroscopy. The setscrew was placed and backed off 1/4 inch to allow for further compression. Attention was then turned to the distal portion of the nail and distal extramedullary guide technique was used to locate the distal interlocking screw and a 30mm distal interlocking screw was placed using this technique. Live fluoroscopy was used to verify the position of the interlocking screw and the final position of the hip components. Once we were satisfied with our positioning the wounds were copiously irrigated out with normal saline skin was closed with 2-0 Vicryl and aleyda for final skin closure. A sterile dressing was placed with Xeroform. Patient was then awakened by anesthesia transferred from the fracture table back to their hospital bed and transferred to the PACU for recovery. Postoperative plan: Patient will be weight-bear as tolerated. Aspirin 81 mg twice a day for DVT prophylaxis with knee-high stockings. Follow up in the office in 2 weeks. Complications none Admit VTE Documentation VTE Present on Admission: No VTE Mechan Device Prophylaxis: SCD's and Thigh High BIENVENIDO Hose VTE Pharm Prophylaxis ordered?: Yes
--- NOTE | 2022-09-14 18:05 | RAD_ITS ---
INDICATION: Post Op -- AP both hips on single colt/lateral of op hip PACU EXAMINATION/TECHNIQUE: X-RAY - XR Hip Unilateral with Pelvis when performed; 2-3 Views COMPARISON: None. FINDINGS: Status post ORIF left hip fracture with compression screw, interlocking intramedullary luis and second compression screw extending along the inferior margin of the femoral neck. There is near-anatomic alignment of intertrochanteric fracture. Avulsion fracture of the left lesser trochanter. Mild bilateral hip joint space narrowing. RAD/Hip Min 2 Views (Portable) IMPRESSION: ORIF left hip fracture as above. Electronically Signed: Fabián Li MD, ISABEL at 18:38 EDT ,
[2022-09-14] MEDS: Hydroxychloroquine 200 MG Tablet 400 MG PO (20:25)
[2022-09-14] MEDS: Pravastatin 40 MG Tablet PO (20:27)
[2022-09-14] MEDS: Aspirin 81 MG TAB.CHEW PO (20:40)
[2022-09-15] MEDS: Methotrexate 2.5 MG Tablet 17.5 MG PO ×2 (00:02→01:00)
[2022-09-15 05:30] VITALS: BP 133/68; PULSE 79; RESP 18; TEMP 36.7; O2SAT 97
[2022-09-15] MEDS: Acetaminophen 325 MG Tablet 650 MG PO (05:35)
[2022-09-15] MEDS: Carbidopa/Levodopa 25/100 Tablet PO ×3 (05:36→22:13)
[2022-09-15] MEDS: Levothyroxine 75 MCG Tablet PO (05:36)
[2022-09-15 07:12] VITALS: O2SAT 96
[2022-09-15 07:31] VITALS: BP 122/71; PULSE 86; RESP 20; TEMP 36.7; O2SAT 93
[2022-09-15] MEDS: Senna/Docusate Sodium 1 Tablet 2 TABLET PO (07:42)
[2022-09-15] MEDS: Pantoprazole Sodium 40 MG Tablet PO (07:42)
[2022-09-15] MEDS: Calcium Carb/Vitamin D 1 TABLET Tablet PO ×2 (07:42→22:15)
[2022-09-15] MEDS: Folic Acid 1 MG Tablet 2 MG PO (07:42)
[2022-09-15] MEDS: Multivitamins,Therapeutic Tablet 1 TABLET PO (07:42)
[2022-09-15] MEDS: OLANZapine 2.5 MG Tablet 7.5 MG PO (07:42)
[2022-09-15] MEDS: Potassium Chloride Oral Tablet 20 MEQ PO ×2 (07:43→22:15)
[2022-09-15] MEDS: Aspirin 81 MG TAB.CHEW PO ×2 (07:43→22:13)
[2022-09-15] MEDS: Citalopram 40 MG TABLET PO (07:43)
[2022-09-15] MEDS: Hydroxychloroquine 200 MG Tablet 400 MG PO (10:41)
--- NOTE | 2022-09-15 11:00 | PN.ORTHO_ITS ---
Subjective Subjective The patient was sitting in bedside chair eating upon examination. Patient denies any chest pain, shortness of breath, dizziness, lightheadedness, nausea or vomiting, or calf pain. Pain is controlled on medications. No adverse overnight events. Patient still does report pain in her left hip but is controlled on medications. Plan is for patient to go to group home facility upon discharge. Overall she is doing well orthopedically. Objective Data Objective Data Vital Signs: Vital Signs Temp Pulse Resp BP Pulse Ox O2 Del Method O2 Flow Rate 98.0 F 86 20 H 122/71 H 93 Room Air 2 09/15/22 07:31 09/15/22 07:31 09/15/22 07:31 09/15/22 07:31 09/15/22 07:31 09/15/22 07:09/15/22 07:12 Oxygen Flow Rate (L/min) 2 Oxygen Delivery Method Room Air Weight: 87 kg Body Mass Index (BMI) 34.0 Intake & Output: Intake and Output for Last 24 Hours 09/13/22 09/14/22 09/15/22 23:59 23:59 23:59 Intake Total 300 / 300 2020. / 2020. 976.75 / 976.75 Output Total 880 / 880 400 / 400 Balance 300 / 300 1141.25 / 1141.25 576.75 / 576.75 Lab / Micro Data Result Diagrams: 09/14/22 06:00 09/14/22 06:00 Labs: Laboratory Results - last 24 hr 09/13/22 17:47: Diff Path Review Reviewed 09/14/22 06:00: Diff Path Review Reviewed Radiography Diagnostic Testing: Radiology Impression Hip/Pelvis X-Ray 09/14/22 16:51 IMPRESSION: Left femoral ORIF. Electronically Signed: Wilmer Lemon DO at 23:07 EDT , Hip X-Ray 09/14/22 18:05 IMPRESSION: ORIF left hip fracture as above. Electronically Signed: Fabián Li MD, ISABEL at 18:38 EDT , Physical Exam Narrative Vital signs stable and afebrile. SCDs and BIENVENIDO hose are in place bilaterally Patient is able to plantarflex and dorsiflex actively. Sensation is intact to light touch to saphenous, sural, superficial and deep peroneal, and tibial distribution. Dressings are clean dry and intact. Negative Homans bilaterally, negative signs and symptoms of DVT. Const alert, oriented x3 and no apparent distress Assessment & Plan Assessment/Plan (1) Closed fracture of left hip: PLAN: 1. S/P left cephalomedullary hip nail secondary to intertrochanteric fracture POD #1 2. Continue Pain Medications: Continue per medicine. Recommend Extra strength Tylenol 500 mg 2 tablets every 8 hours for primary pain control. 3. DVT Prophylaxis: Recommend take 81 mg aspirin twice daily for 4 weeks postoperatively for DVT prophylaxis. 4. PT/OT: Weightbearing as tolerated with walker 5. Encouraged Incentive Spirometry 6. Continue medical management per medicine: Case was discussed and reviewed with medicine today. Plan is for patient to be discharged to group home facility when approval has been obtained. 7. Disposition: Patient orthopedically is doing well. She can be weightbearing as tolerated with walker. Dressing should stay on for 5 days postoperatively. She will require 2-week postoperative follow-up with [facility] for suture/staple removal and x-rays. Continue pain management per medicine. Appreciate consultation. If there are any complications orthopedically please contact us. This dictation was created using voice recognition software. Phonetic and/or grammatical errors may exist.
--- NOTE | 2022-09-15 11:55 | CASEMGMT ---
Social Work Pt states she has a living will and a health care POA naming her Yonny Hale. Pt and notified that documents are not on file and requested they be brought in for scanning into EMR. JES Foreman
--- NOTE | 2022-09-15 11:57 | CASEMGMT ---
Social Work SW to room to meet with patient and spouse for initial transition planning/care coordination assessment. SW introduced self and role at [facility]. Pt voices understanding and consents to assessment. Pt sitting up in chair, in no distress, A/O and answers all questions appropriately. Care providers, pharmacy, and demographics verified/updated at this time. PCP: [facility] Specialists: none Preferred Pharmacy: [facility] Insurance: [employer] Prescription Benefit: yes Living Will/HPOA: Pt has living will and HCPOA naming her spouse Yonny Hale. Pt notified documents are not on file and requested they be brought in. LNOK: Yonny Hale, spouse. Vaishnavi Curry, daughter Living Arrangements: Pt lives in a single story home with a ramp entrance. Pt lives with her spouse and has been independent with all ADLS. Transportation: Pt does not drive. Yonny provides needed transportation DME: walker, rollator and wheelchair (which she shares with her spouse) shower bench, grab bars in bathroom HHC/SNF: none prior Pt acknowledges need for further therapy at time of discharge prior to returning home. A list of SNF providers including quality and resource use data and consistent with the patient?s preferred geographic region, medical needs, and insurance network were provided from the [employer] Guide. Pt preferred provider is TCU. Referral sent to [facility] in TCU. TCU is able to accept and precert will need to be obtained. Pt and spouse updated and understanding. PLAN: TCU, pending precert JES Foreman
[2022-09-15 14:15] VITALS: BP 132/66; PULSE 91; RESP 18; TEMP 36.8; O2SAT 94
[2022-09-15] MEDS: Acetaminophen 500 MG Tablet 1000 MG PO ×2 (14:17→22:13)
[2022-09-15] MEDS: oxyCODONE 5 MG Tablet PO (14:17)
--- NOTE | 2022-09-15 15:55 | PN.HOSP_ITS ---
Reason for Visit Reason for Visit: Diagnoses Elevated white blood cell count, unspecified (09/13/22) Obesity, unspecified (09/13/22) Fracture of unspecified part of neck of left femur, initial encounter for closed fracture (09/13/22) Subjective Subjective Seen and examined today, she is seated in a chair and appears comfortable at this time. We are awaiting approval for her to go to TCU for inpatient detention services. I talked briefly with orthopedic surgery about her care. Objective Data Objective Data Vital Signs: Vital Signs Temp Pulse Resp BP Pulse Ox O2 Del Method O2 Flow Rate 98.2 F 91 18 132/66 H 94 Nasal Cannula 2 09/15/22 14:15 09/15/22 14:15 09/15/22 14:15 09/15/22 14:15 09/15/22 14:15 09/15/22 14:15 09/15/22 14:15 Oxygen Flow Rate (L/min) 2 Oxygen Delivery Method Nasal Cannula Weight: 87 kg Body Mass Index (BMI) 34.0 Intake & Output: Intake and Output for Last 24 Hours 09/13/22 09/14/22 09/15/22 23:59 23:59 23:59 Intake Total 300 / 300 2021.25 / 202.25 976.75 / 976.75 Output Total 880 / 880 400 / 400 Balance 300 / 300 1141.25 / 1141.25 576.75 / 576.75 Lab / Micro Data Result Diagrams: 09/14/22 06:00 09/14/22 06:00 Radiography Diagnostic Testing: Radiology Impression Hip/Pelvis X-Ray 09/14/22 16:51 IMPRESSION: Left femoral ORIF. Electronically Signed: Wilmer Lemon DO at 23:07 EDT , Hip X-Ray 09/14/22 18:05 IMPRESSION: ORIF left hip fracture as above. Electronically Signed: Fabián Li MD, ISABEL at 18:38 EDT , Physical Exam Narrative alert, oriented x3, no apparent distress and healthy appearing General Appearance: cooperative, well kempt and well developed Orientation / Consciousness: awake, oriented to person, oriented to place and oriented to time HEENT normocephalic, head/scalp atraumatic and moist oral mucous membranes Eyes PERRL, EOMs intact bilaterally and conjunctivae normal Neck supple, no JVD, thyroid normal and no carotid bruits General: trachea midline Resp normal respiratory effort, no retractions, no use of accessory muscles and clear to auscultation bilaterally Auscultation: Negative for rales, rhonchi or wheezes Cardio regular rate, regular rhythm, S1 normal heart sound, S2 normal heart sound, no murmurs, no rub and no gallops GI normal to inspection, nondistended, normoactive bowel sounds, soft to palpation, non-tender and non-distended Extremity Extremity Narrative: No bilateral lower extremity edema was noted Skin no rashes or lesions noted General Skin Exam: no breakdown Neuro oriented x3, CN's II-XII intact bilaterally, no focal motor deficits and no sensory deficits noted Sensorium / Orientation: awake, alert, oriented to person, oriented to place and oriented to time Speech: speech normal Psych affect normal Assessment & Plan Assessment/Plan (1) Closed fracture of left hip: PLAN: Plan 1. Left intertrochanteric hip fracture secondary to osteoporosis-postop day #1 insertion of left cephalic medullary hip nail-patient will continue to be seen by PT and OT, again she will need short-term placement in a detention facility (TCU) at the time of discharge from the hospital. I will obtain a repeat CBC tomorrow #2 hypothyroidism-patient is currently on Synthroid #3 chronic depression-patient is currently on Lexapro chronically, this will be continued here #4 rheumatoid arthritis-patient is on hydroxychloroquine and methotrexate chronically, the methotrexate will be held during her hospitalization #5 hyperlipidemia-patient is on a statin currently #6 schizophrenia-patient is currently on Zyprexa #7 Parkinson's disease-I talked with the patient's PCP (Dr. Herrmann) he feels the patient does have Parkinson's disease and has placed her on Sinemet, this will be continued while she is in the hospital. Total clinical time spent by myself addressing the patient's medical issues, reviewing all of her data, and collaborating with patient's care team: 36 minutes Charges/Coding Visit Charges Inpatient E&M: 09928 Subs Hosp L2
--- NOTE | 2022-09-15 22:06 | NURSING ---
Patient requested pain medication. When nurse came in room patient was asleep and snoring. RN woke patient, because it was time for scheduled Tylenol.
[2022-09-15 22:11] VITALS: BP 112/62; PULSE 89; RESP 20; TEMP 36.8; O2SAT 97
[2022-09-15] MEDS: Pravastatin 40 MG Tablet PO (22:14)
[2022-09-15] MEDS: 0.9% Saline Lock 10 ML Syringe IV (22:15)
[2022-09-16] VITALS (7 sets, daily range): BP systolic 122–136; BP diastolic 65–72; PULSE 78–89; RESP 16–20; TEMP 36.7–36.8; O2SAT 96–98
[2022-09-16 05:32] LABS: Absolute Lymphocyte Count 2.11 X10^3/uL (0.83-4.51); Absolute Neutrophil Count 9.7 X10^3/uL (2.0-7.7); Basophil# 0.02 X10^3/uL; Basophil% 0.1 % (0-1); Eosinophil# 0.05 X10^3/uL; Eosinophils% 0.3 % (0-5); Hematocrit 28.3 % (37-47); Hemoglobin 8.5 g/dL (12.0-15.0); Lymphocyte # 2.11 X10^3/ul (0.83-4.51); Lymphocyte % 13.8 % (19-41); Mean Corpuscular Volume 96.6 fL (81-99); Mean Platelet Vol. 10.5 fl (6.2-12.0); Monocyte# 3.35 X10^3/uL; Monocyte% 21.9 % (0-10); NRBC Flagged by Analyzer 0 % (0-5); Neutrophil # 9.66 X10^3/uL (2.7-7.7); Neutrophil % 63.2 % (47-70); POSITIVE DIFFERENTIAL YES; Platelet Count 186 K/mm3 (150-450); RBC Distribution Width CV 13.9 % (11.6-14.6); RBC Distribution Width SD 48.8 fl (35.1-43.9); Red Blood Count 2.93 M/mm3 (4.2-5.4); White Blood Count 15.3 K/mm3 (4.4-11.0)
[2022-09-16] MEDS: Acetaminophen 500 MG Tablet 1000 MG PO ×2 (05:44→15:10)
[2022-09-16] MEDS: Carbidopa/Levodopa 25/100 Tablet PO ×2 (05:44→15:10)
[2022-09-16] MEDS: Levothyroxine 75 MCG Tablet PO (05:44)
[2022-09-16 05:53] LABS: Differential Indicated SCAN CRITERIA MET
[2022-09-16 06:05] LABS: Differential Comment SCANNED
[2022-09-16] MEDS: OLANZapine 2.5 MG Tablet 7.5 MG PO (08:23)
[2022-09-16] MEDS: Potassium Chloride Oral Tablet 20 MEQ PO (08:23)
[2022-09-16] MEDS: Multivitamins,Therapeutic Tablet 1 TABLET PO (08:23)
[2022-09-16] MEDS: Pantoprazole Sodium 40 MG Tablet PO (08:23)
[2022-09-16] MEDS: Senna/Docusate Sodium 1 Tablet 2 TABLET PO (08:23)
[2022-09-16] MEDS: Calcium Carb/Vitamin D 1 TABLET Tablet PO (08:23)
[2022-09-16] MEDS: Folic Acid 1 MG Tablet 2 MG PO (08:23)
[2022-09-16] MEDS: Aspirin 81 MG TAB.CHEW PO (08:23)
[2022-09-16] MEDS: Hydroxychloroquine 200 MG Tablet 400 MG PO (08:23)
[2022-09-16] MEDS: Citalopram 40 MG TABLET PO (08:23)
[2022-09-16] MEDS: oxyCODONE 5 MG Tablet PO (08:24)
--- NOTE | 2022-09-16 09:10 | NURSING ---
scanner in pt room not working, manually entered ID and meds
--- NOTE | 2022-09-16 09:28 | CASEMGMT ---
Addendum entered by Shannen Way 09/16/22 14:47: Social Work Per physician, pt is ready for d/c today. Orders faxed to TCU. Nursing, pt and TCU aware. Disposition: TCU, skilled level of care JES Foreman Original Note: Social Work Per [facility] in TCU precert has been obtained. LEONORA updated physician who states pt will be ready for d/c today. LEONORA updated pt who is agreeable to d/c plan and will update her . Plan: TCU, skilled level of care JES Foreman
--- NOTE | 2022-09-16 09:50 | RAD_ITS ---
STUDY: X-RAY CHEST REASON FOR EXAM: Female, 72 years old. Elevated white cell count TECHNIQUE: Single AP portable view of the chest. COMPARISON: Comparison is made with prior study of September 13, 2022. FINDINGS: The lungs are clear and expanded. There is no demonstrated pleural abnormality. Normal size heart. Normal mediastinum and ankita. Normal visualized pulmonary arteries. There is atherosclerotic tortuosity of the aortic arch and descending thoracic aorta. Normal visualized thoracic spine. Healed right rib fractures. There is no demonstrated abnormality of the visualized soft tissue structures of the upper abdomen. RAD/Chest 1 View (Portable) IMPRESSION: No acute findings are seen. Electronically Signed: Chan Bowers MD at 14:28 EDT ,
[2022-09-16 12:01] LABS: Pathologist Review Reviewed
--- NOTE | 2022-09-16 14:27 | PCM.TXEXTCAR ---
Diet Diet Order/Speech Therapy: 09/15/22 06:01 Diet: Regular - General Type of Dietary Supplement:: Ensure Surgery Is pt able to select menu?: No Routine Orders/Code Status Routine Lab Work: CBC (on 09/19/22) Code Status: Full Code (unverified) Wound(s) LEFT HIP: Wound Type: Surgical Incision Dressing Change: dressing change in 5 days, cleanse area with soap and water Therapies Weight Bearing: Weight bearing as tolerated Physical Therapy: Eval and Treat Occupational Therapy: Eval and Treat Problem/Diagnosis (1) Closed fracture of left hip: Status: Acute Code(s): S72.002A - Fracture of unspecified part of neck of left femur, initial encounter for closed fracture Plan 1. Left intertrochanteric hip fracture secondary to osteoporosis-postop day #2 insertion of left cephalic medullary hip nail-patient will continue to be seen by PT and OT, again she will need short-term placement in a alf facility (TCU) at the time of discharge from the hospital. I will obtain a repeat CBC tomorrow #2 hypothyroidism-patient is currently on Synthroid #3 chronic depression-patient is currently on Lexapro chronically, this will be continued here #4 rheumatoid arthritis-patient is on hydroxychloroquine and methotrexate chronically, the methotrexate will be held during her hospitalization #5 hyperlipidemia-patient is on a statin currently #6 schizophrenia-patient is currently on Zyprexa #7 Parkinson's disease-I talked with the patient's PCP (Dr. Herrmann) he feels the patient does have Parkinson's disease and has placed her on Sinemet, this will be continued while she is in the hospital. Total clinical time spent by myself addressing the patient's medical issues, reviewing all of her data, and collaborating with patient's care team: 36 minutes Allergies/Procedures Done in Hospital Allergies linaclotide [From Linzess] Allergy (Mild, Verified 09/14/22 14:13) chest tightness histamine phosphate [From Histatrol] Allergy (Verified 09/14/22 14:13) Unknown Procedures: - (ORIF left hip) Type of Care/Length of Stay Estimated LOS: Convalescent Care Less Than 30 days Type of Care Needed: Skilled Rehab Potential: Good Prognosis: Good Additional Orders/Day of Discharge H&P will serve as current which was dated: 09/13/22 Day of Discharge: 09/16/22 Discharge Plan Admission Admit Date/Time: 09/13/22 20:24 Primary Reason for Your Visit: left hip fracture Attending Provider: Fabián Mahoney Primary Care Provider: Raji Herrmann Chi Consulting Providers: Jorge Frances ; Krishna Wan Instructions Additional Instructions / Restrictions: No shower until hip dressing removed in 5 days Discharge Orders/Prescriptions Prescriptions: New acetaminophen 325 mg Tablet 650 mg PO Q6H PRN PRN (Reason: Pain 1-10 Or Fever) Qty: 0 0RF aspirin 81 mg Tablet,Chewable 81 mg PO BID Qty: 0 0RF oxycodone 5 mg Tablet 5 mg PO Q4H PRN PRN (Reason: Pain Score 4-10) 3 Days Qty: 14 0RF sennosides-docusate sodium [Stool Softener-Stimulant Laxat] 8.6-50 mg Tablet 2 tab PO BID Qty: 0 0RF Continued pravastatin 40 MG tablet 40 mg PO QHS citalopram 40 mg tablet 40 mg PO DAILY calcium carbonate-vitamin D3 600 mg-5 mcg (200 unit) Tablet 1 tab PO BID olanzapine 7.5 mg tablet 7.5 mg PO DAILY potassium chloride 20 mEq tablet,ER particles/crystals 20 meq PO BID multivitamin Tablet 1 tab PO DAILY levothyroxine 75 mcg tablet 75 mcg PO DAILY methotrexate sodium 2.5 mg tablet 17.5 mg PO WE folic acid 1 mg tablet 2 mg PO DAILY hydroxychloroquine 200 mg tablet 400 mg PO DAILY carbidopa-levodopa 25-100 mg tablet 1 tab PO TID omeprazole 40 mg capsule,delayed release(DR/EC) 40 mg PO DAILY Discontinued prednisone 10 mg tablet 10 mg PO DAILY PRN (Reason: FLARE-UPS) Referrals / Follow Up: Jorge Frances MD [Med Staff - Active Staff] - 09/29/22 8:45 am (xray/followup with [facility] ) Raji Herrmann Chi, MD [Primary Care Provider] - Disposition Disposition (needs filled in before D/C Order can be placed): Shelter Facility
--- NOTE | 2022-09-16 14:38 | DS.PCM_ITS ---
Providers Date of Admission: 09/13/22 Date of Discharge: 09/16/22 Primary Care Physician: Dr. Raji Herrmann MD Consultations 09/13/22 21:40 Consult: Orthopedics Routine Consulting Provider: Jorge Frances Reason for Consult: Left hip fracture EMERGENT Consult: No MD Notified: Yes Date Notified: 09/13/22 Time Notified: 21:18 Method of Notification: ED Physician Initiated Reason For Visit: LEFT IMPACTED INTERTROCHANTERIC FRACTURE Diagnosis Discharge Diagnosis (1) Closed fracture of left hip: Status: Acute Code(s): S72.002A - Fracture of unspecified part of neck of left femur, initial encounter for closed fracture Plan 1. Left intertrochanteric hip fracture secondary to osteoporosis-postop day #2 insertion of left cephalic medullary hip nail-patient will continue to be seen by PT and OT, again she will need short-term placement in a prison facility (TCU) at the time of discharge from the hospital. I will obtain a repeat CBC tomorrow #2 hypothyroidism-patient is currently on Synthroid #3 chronic depression-patient is currently on Lexapro chronically, this will be continued here #4 rheumatoid arthritis-patient is on hydroxychloroquine and methotrexate chronically, the methotrexate will be held during her hospitalization #5 hyperlipidemia-patient is on a statin currently #6 schizophrenia-patient is currently on Zyprexa #7 Parkinson's disease-I talked with the patient's PCP (Dr. Herrmann) he feels the patient does have Parkinson's disease and has placed her on Sinemet, this will be continued while she is in the hospital. Total clinical time spent by myself addressing the patient's medical issues, reviewing all of her data, and collaborating with patient's care team: 36 minutes Medications at Discharge Home Medications pravastatin 40 mg tablet 40 mg PO QHS CHOLESTEROL 03/22/17 calcium carbonate 600 mg-vitamin D3 5 mcg (200 unit) tablet 1 tab PO BID GR PPLEMENT 09/13/22 carbidopa 25 mg-levodopa 100 mg tablet 1 tab PO TID parkinsons 09/13/22 citalopram 40 mg tablet 40 mg PO DAILY DEPRESSION 09/13/22 folic acid 1 mg tablet 2 mg PO DAILY SUPPLEMENT 09/13/22 hydroxychloroquine 200 mg tablet 400 mg PO DAILY RHEUMATOID ARTHRITIS 09/13/22 levothyroxine 75 mcg tablet 75 mcg PO DAILY THYROID 09/13/22 methotrexate sodium 2.5 mg tablet 17.5 mg PO WE immunosupressive 09/13/22 multivitamin 1 tab PO DAILY SUPPLEMENT 09/13/22 olanzapine 7.5 mg tablet 7.5 mg PO DAILY MOOD 09/13/22 omeprazole 40 mg capsule,delayed release 40 mg PO DAILY ACID REFLUX 09/13/22 potassium chloride 20 mEq tablet,extended release(part/cryst) 20 meq PO BID SUPPLEMENT 09/13/22 acetaminophen 325 mg tablet 650 mg PO Q6H PRN PRN Pain 1-10 Or Fever #0 tabs 09/16/22 aspirin 81 mg chewable tablet 81 mg PO BID blood thinner 09/16/22 oxycodone 5 mg tablet 5 mg PO Q4H PRN PRN Pain Score 4-10 3 days #14 tabs 09/16/22 sennosides 8.6 mg-docusate sodium 50 mg tablet (Stool Softener-Stimulant Laxative) 2 tab PO BID constipation 09/16/22 Hospital Course Operations - (Insertion of left cephalomedullary nail) Procedures None Summary of Care Provided Minutes Spent on Discharge: 33 Hospital Course: This 72-year-old white female was seen in the emergency room at [facility] after sustaining a fall at home, she could not ambulate due to left hip pain. X-rays obtained in the emergency room showed a left intertrochanteric hip fracture, patient was admitted to [place] [id number] and appears stable for surgery. She was seen in consultation by orthopedic surgery and underwent insertion of a left cephalomedullary nail. Patient had no complications from her surgery, she was seen by PT and OT and it was felt she would benefit from placement in prison facility for short-term rehab services. On 09/16/2022, patient was seen and examinedalert, oriented x3, no apparent distress and healthy appearing General Appearance: cooperative, well kempt and well developed Orientation / Consciousness: awake, oriented to person, oriented to place and oriented to time HEENT normocephalic, head/scalp atraumatic and moist oral mucous membranes Eyes PERRL, EOMs intact bilaterally and conjunctivae normal Neck supple, no JVD, thyroid normal and no carotid bruits General: trachea midline Resp normal respiratory effort, no retractions, no use of accessory muscles and clear to auscultation bilaterally Auscultation: Negative for rales, rhonchi or wheezes Cardio regular rate, regular rhythm, S1 normal heart sound, S2 normal heart sound, no murmurs, no rub and no gallops GI normal to inspection, nondistended, normoactive bowel sounds, soft to palpation, non-tender and non-distended Extremity Extremity Narrative: No bilateral lower extremity edema was noted Skin no rashes or lesions noted General Skin Exam: no breakdown Neuro oriented x3, CN's II-XII intact bilaterally, no focal motor deficits and no sensory deficits noted Sensorium / Orientation: awake, alert, oriented to person, oriented to place and oriented to time Speech: speech normal Psych affect normal Patient was transferred to TCU in stable condition on 09/16/2022. Weight / BMI Weight Weight: 87 kg Body Mass Index (BMI) 34.0 ABG / Lab / Microbiology Data Result Diagrams: 09/16/22 05:15 09/14/22 06:00 Laboratory: Laboratory Results - last 24 hr 09/16/22 05:15: WBC 15.3 H, RBC 2.93 L, Hgb 8.5 L, Hct 28.3 L, MCV 96.6, MCH 29.0, MCHC 30.0 L, RDW Std Deviation 48.8 H, RDW Coeff of Edwar 13.9, Plt Count 186, MPV 10.5, Immature Gran % (Auto) 0.700, Neut % (Auto) 63.2, Lymph % (Auto) 13.8 L, Mccone % (Auto) 21.9 H, Eos % (Auto) 0.3, Baso % (Auto) 0.1, Absolute Neuts (auto) 9.7 H, Absolute Lymphs (auto) 2.11, Nucleated RBC % 0, Differential Comment SCANNED, Diff Path Review Reviewed Microbiology: Microbiology 09/16/22 09:30 Nasal Secretion SARS-CoV-2 Antigen (Rapid) - Final Radiography Diagnostic Testing: Radiology Impression Chest X-Ray 09/16/22 09:50 IMPRESSION: No acute findings are seen. Electronically Signed: Chan Bowers MD at 14:28 EDT , Meaningful Use Info Meaningful Use Diagnoses (Choose all that apply): None applicable Discharge Plan Admission Admit Date/Time: 09/13/22 20:24 Primary Reason for Your Visit: left hip fracture Attending Provider: Fabián Mahoney Primary Care Provider: Raji Herrmann Chi Consulting Providers: Jorge Frances ; Krishna Wan Instructions Additional Instructions / Restrictions: No shower until hip dressing removed in 5 days Discharge Orders/Prescriptions Prescriptions: New acetaminophen 325 mg Tablet 650 mg PO Q6H PRN PRN (Reason: Pain 1-10 Or Fever) Qty: 0 0RF oxycodone 5 mg Tablet 5 mg PO Q4H PRN PRN (Reason: Pain Score 4-10) 3 Days Qty: 14 0RF Continued pravastatin 40 MG tablet 40 mg PO QHS citalopram 40 mg tablet 40 mg PO DAILY calcium carbonate-vitamin D3 600 mg-5 mcg (200 unit) Tablet 1 tab PO BID olanzapine 7.5 mg tablet 7.5 mg PO DAILY potassium chloride 20 mEq tablet,ER particles/crystals 20 meq PO BID multivitamin Tablet 1 tab PO DAILY levothyroxine 75 mcg tablet 75 mcg PO DAILY methotrexate sodium 2.5 mg tablet 17.5 mg PO WE folic acid 1 mg tablet 2 mg PO DAILY hydroxychloroquine 200 mg tablet 400 mg PO DAILY carbidopa-levodopa 25-100 mg tablet 1 tab PO TID omeprazole 40 mg capsule,delayed release(DR/EC) 40 mg PO DAILY Discontinued prednisone 10 mg tablet 10 mg PO DAILY PRN (Reason: FLARE-UPS) No Action sennosides-docusate sodium [Stool Softener-Stimulant Laxat] 8.6-50 mg tablet 2 tab PO BID aspirin 81 mg tablet,chewable 81 mg PO BID Referrals / Follow Up: Jorge Frances MD [Med Staff - Active Staff] - 09/29/22 8:45 am (xray/followup with [facility]vin ) Raji Herrmann Chi, MD [Primary Care Provider] - Disposition Disposition (needs filled in before D/C Order can be placed): Long Term Facility Charges/Coding Visit Charges Inpatient E&M: 32533 Disch Hosp >30min
--- NOTE | 2022-09-16 15:27 | NURSING ---
pt being transferred to TCU, report given to Kylie by this RN
== END 2022-09-16 15:49 | disposition skilled nursing facility (03) | DRG 482 ==
LOC: ED 20:37 → MS3 21:12
PROVIDERS: Specialist; Admitting Provider Hospitalist; Emergency Provider Emergency Medicine; PCP Family Medicine Geriatric Medicine; Visit Provider Internal Medicine
PROC: 0QS736Z Reposition Left Upper Femur with Intramedullary Internal Fixation Device, Percutaneous Approach (ICD-10-PCS; CPT 27245; principal; 2022-09-14 14:00)
DX: M80.052A Age-related osteoporosis with current pathological fracture, left femur, initial encounter for fracture (principal); G25.89 Other specified extrapyramidal and movement disorders; G20 Parkinson's disease; S09.90XA Unspecified injury of head, initial encounter; F20.9 Schizophrenia, unspecified; M06.9 Rheumatoid arthritis, unspecified; E03.9 Hypothyroidism, unspecified; E78.5 Hyperlipidemia, unspecified; W19.XXXA Unspecified fall, initial encounter; E66.9 Obesity, unspecified; Z79.52 Long term (current) use of systemic steroids
CPT/HCPCS: 36415; 70450; 71045; 72125; 72170; 73502; 73552; 76000; 80048; 81001; 82306; 84443; 85025; 85610; 85730; 86850; 86900; 86901; 87426; 93005; 94668; 97110; 97162; 97166; 97530; 97535; 99252; 99284; C1713; J7030; J7120; A4216; G0463; J2405; J8610

== ENCOUNTER 2022-09-16 16:02 | Inpatient (IN) | payer MEDICARE, SELFPAY ==
[2022-09-16 16:11] VITALS: BP 134/71; PULSE 83; RESP 20; TEMP 36.4; O2SAT 97
[2022-09-16] MEDS: Aspirin 81 MG TAB.CHEW PO (17:57)
[2022-09-16] MEDS: Potassium Chloride Oral Tablet 20 MEQ PO (17:57)
--- NOTE | 2022-09-16 19:55 | HP.PCM_ITS ---
HPI - General General Date of Admission: 09/16/22 Date of Service: 09/16/22 Chief Complaint: Here for rehabilitation. HPI Narrative 09/13/2022 DANDRE PERAZA, is a 72 Female who presents to [facility] Emergency Department with fall. 09/13/2022 EKG normal sinus rhythm, minimal voltage criteria for LVH, maybe normal variant, inferior infarct, age undetermined. Mechanical fall, left hip pain, left thigh pain. Returned from spinal injection with Dr. Levy. Unsteady, fell, hit back of head. Ambulated with walker, 2 person assist, pain with movement left hip. CT head negative, CT cervical spine negative. X-ray showed left hip fracture. Morphine given. Elevated WBC secondary to steroid spinal injection. 09/13/2022 Admit to Hospital. Pain control, PT/OT, prepare for surgery for left hip fracture. 09/14/2022 Medically stable for surgery. Hold MTX. 09/14/2022 Dr. Frances performed left cephalomedullary hip nail. 09/15/2022 Sitting in chair, comfortable. PT/OT for SNF. 09/16/2022 Admit to TCU with debility, here for rehabilitation, strengthening, prior to discharge home with . [facility] Medical History (Updated 09/16/22 @ 20:[address] Raji Herrmann MD) Arthritis Cataracts, bilateral Hemorrhoids IBS (irritable bowel syndrome) Osteoarthritis Thyroid disease Home Medications pravastatin 40 mg tablet 40 mg PO QHS CHOLESTEROL 03/22/17 [History Last Taken 09/12/22] calcium carbonate 600 mg-vitamin D3 5 mcg (200 unit) tablet 1 tab PO BID SUPPLEMENT 09/13/22 [History Last Taken 09/12/22] carbidopa 25 mg-levodopa 100 mg tablet 1 tab PO TID parkinsons 09/13/22 [History Last Taken 09/12/22] citalopram 40 mg tablet 40 mg PO DAILY DEPRESSION 09/13/22 [History Last Taken 09/12/22] folic acid 1 mg tablet 2 mg PO DAILY SUPPLEMENT 09/13/22 [History Last Taken 09/12/22] hydroxychloroquine 200 mg tablet 400 mg PO DAILY RHEUMATOID ARTHRITIS 09/13/22 [History Last Taken 09/12/22] levothyroxine 75 mcg tablet 75 mcg PO DAILY THYROID 09/13/22 [History Last Taken 09/12/22] methotrexate sodium 2.5 mg tablet 17.5 mg PO WE immunosupressive 09/13/22 [History Last Taken 09/07/22] multivitamin 1 tab PO DAILY SUPPLEMENT 09/13/22 [History Last Taken 09/12/22] olanzapine 7.5 mg tablet 7.5 mg PO DAILY MOOD 09/13/22 [History Last Taken 09/12/22] omeprazole 40 mg capsule,delayed release 40 mg PO DAILY ACID REFLUX 09/13/22 [History Last Taken 09/12/22] potassium chloride 20 mEq tablet,extended release(part/cryst) 20 meq PO BID SUPPLEMENT 09/13/22 [History Last Taken 09/12/22] acetaminophen 325 mg tablet 650 mg PO Q6H PRN PRN Pain 1-10 Or Fever #0 tabs 09/16/22 [Rx Last Taken Unknown] aspirin 81 mg chewable tablet 81 mg PO BID blood thinner 09/16/22 [History Last Taken Unknown] oxycodone 5 mg tablet 5 mg PO Q4H PRN PRN Pain Score 4-10 3 days #14 tabs 09/16/22 [Rx Last Taken Unknown] sennosides 8.6 mg-docusate sodium 50 mg tablet (Stool Softener-Stimulant Laxative) 2 tab PO BID constipation 09/16/22 [History Last Taken Unknown] Allergy/AdvReac Type Severity Reaction Status Date / Time linaclotide [From Linzess] Allergy Mild chest Verified 09/14/22 14:13 tightness histamine phosphate Allergy Unknown Verified 09/14/22 14:13 [From Histatrol] Family History Other Heart disease Surgical History History of knee replacement History of tubal ligation Social History (Updated 09/16/22 @ 20:[address] Raji Herrmann MD) household members: spouse Smoking Status: Never smoker alcohol intake: never substance use type: does not use what type of physical activity do you participate in: walking frequency: 1-2 times per week ROS Constitutional Constitutional: Denies chills, fever(s) or weight gain ENT HEENT: Denies headache(s), nasal congestion or nasal discharge Cardiovascular Cardiovascular: Denies chest pain or palpitations Respiratory/Chest Respiratory/Chest: Denies cough, excessive phlegm production or shortness of breath with exertion Gastrointestinal Gastrointestinal: Denies abdominal pain, nausea or vomiting Genitourinary Genitourinary: Denies dysuria Musculoskeletal Musculoskeletal: Denies joint pain or joint swelling Integumentary Integumentary: Denies rash or wounds Neurologic Neurologic: Denies focal weakness, numbness or tingling Psychiatric Psychiatric: Denies anxiety, auditory hallucinations, depression, homicidal ideation or suicidal ideation Vital Signs Vital Signs Vital Signs: 09/16/22 16:11 09/16/22 16:11 Temperature 97.6 F L Temperature Source Temporal Pulse Rate 83 Pulse Rhythm Regular Pulse Strength Normal (2+) Respiratory Rate 20 H Respiratory Effort Normal Respiratory Depth Normal Respiratory Pattern Normal Blood Pressure 134/71 H Blood Pressure Mean 92 Blood Pressure Source Monitor Blood Pressure Position Sitting Blood Pressure Location Right Arm Pulse Ox 97 Oxygen Delivery Method Nasal Cannula Nasal Cannula Oxygen Flow Rate (L/min) 2 2 Weight Weight: 90.01 kg Physical Exam Const alert General Appearance: cooperative HEENT normocephalic Eyes PERRL and EOMs intact bilaterally Neck supple, no JVD and no carotid bruits Resp normal respiratory effort, normal air movement and clear to auscultation bilaterally Cardio regular rate and regular rhythm GI normal to inspection, nondistended, normoactive bowel sounds, non-tender and non-distended Extremity normal capillary refill General Extremity: Negative for edema Skin no rashes or lesions noted General Skin Exam: no breakdown Psych affect normal Appearance: appropriate Assessment & Plan Assessment/Plan (1) Debility: (2) Closed fracture of left hip: (3) Hyperlipidemia: (4) Parkinson disease: (5) Depression: (6) Rheumatoid arthritis: (7) Hypothyroidism: (8) GERD (gastroesophageal reflux disease): (9) Hypokalemia: PLAN: Plan 72 year old female with below past medical history hospitalized for left hip fracture, underwent left hip cephalomedullary nail fixation 09/14/[address] Frances, admitted to TCU with debility, here for rehabilitation, strengthening, prior to discharge home with . * Debility - PT/OT. * Pain - Tylenol 1000mg q6h prn pain (1-3), Oxycodone 5mg q4h prn pain (4-10). * Bowel - senna/colace 2 tablets bid, Dulcolax 10mg pr x 1 prn, MOM 30ml po x 1 prn. * Adult immunization - Administer pneumonia vaccine, covid19 vaccine, flu vaccine as appropriate. * DVT prophylaxis - Aspirin 81mg bid. * Parkinson Disease - Sinemet 25/100mg tid. * Depression - Citalopram 40mg daily, stable chronic buttermaker continuous churn use, GDR not recommended. * Rheumatoid arthritis - MTX 17.5mg per week, Plaquenil 400mg qam, Folic acid 2mg daily. * Hypothyroidism - Levothyroxine 75mcg daily. * Nutrition - MVI daily. * Schizophrenia - Zyprexa 7.5mg daily, stable chronic usp use, GDR not recommended. * GERD - Pantoprazole 40mg daily. * Hypokalemia - KCL 20meq bidcm. * Hyperlipidemia - Pravastatin 40mg qhs.
[2022-09-16] MEDS: Acetaminophen 500 MG Tablet 1000 MG PO (22:23)
[2022-09-16] MEDS: Carbidopa/Levodopa 25/100 Tablet PO (22:25)
[2022-09-16] MEDS: Pravastatin 40 MG Tablet PO (22:25)
[2022-09-17] MEDS: Carbidopa/Levodopa 25/100 Tablet PO ×3 (06:03→21:55)
[2022-09-17] MEDS: Levothyroxine 75 MCG Tablet PO (06:03)
[2022-09-17] MEDS: Citalopram 40 MG TABLET PO (06:03)
[2022-09-17] MEDS: Senna/Docusate Sodium 1 Tablet 2 TABLET PO ×2 (06:03→17:05)
[2022-09-17] MEDS: Pantoprazole Sodium 40 MG Tablet PO (06:04)
[2022-09-17] MEDS: OLANZapine 2.5 MG Tablet 7.5 MG PO (06:04)
[2022-09-17] MEDS: Aspirin 81 MG TAB.CHEW PO ×2 (06:05→17:05)
[2022-09-17] MEDS: oxyCODONE 5 MG Tablet PO ×3 (07:00→22:00)
[2022-09-17 07:17] LABS: Absolute Lymphocyte Count 2.88 X10^3/uL (0.83-4.51); Absolute Neutrophil Count 8.4 X10^3/uL (2.0-7.7); Basophil# 0.04 X10^3/uL; Basophil% 0.3 % (0-1); Eosinophil# 0.13 X10^3/uL; Eosinophils% 0.9 % (0-5); Hematocrit 30.2 % (37-47); Lymphocyte # 2.88 X10^3/ul (0.83-4.51); Lymphocyte % 20.1 % (19-41); Mean Corp Hgb Conc 29.8 g/dL (32-36); Mean Corpuscular Hgb 28.8 pg (27.0-32.0); Mean Corpuscular Volume 96.8 fL (81-99); Mean Platelet Vol. 10.7 fl (6.2-12.0); Monocyte# 2.74 X10^3/uL; Monocyte% 19.1 % (0-10); NRBC Flagged by Analyzer 0 % (0-5); Neutrophil # 8.44 X10^3/uL (2.7-7.7); Neutrophil % 58.9 % (47-70); POSITIVE DIFFERENTIAL YES; Platelet Count 230 K/mm3 (150-450); RBC Distribution Width CV 13.8 % (11.6-14.6); RBC Distribution Width SD 48.3 fl (35.1-43.9); Red Blood Count 3.12 M/mm3 (4.2-5.4); White Blood Count 14.3 K/mm3 (4.4-11.0)
[2022-09-17 07:23] LABS: Differential Indicated SCAN CRITERIA MET
[2022-09-17 07:49] LABS: Anion Gap 2 (5-15); BUN 10 mg/dL (7-18); Calcium,Total 8.6 mg/dL (8.5-10.1); Chloride 104 mmol/L (98-107); Creatinine, Serum 0.67 mg/dL (0.55-1.02); EST Glomerular Filtration Rate 92 mL/min (>60); Est Glom Filt Rate - Afr Amer 111 mL/min (>60); Estimated Creatinine Clearance 40.83 ml/min; Glucose 92 mg/dL (74-106); Potassium 3.8 mmol/L (3.5-5.1); Sodium Level 136 mmol/L (136-145)
[2022-09-17] MEDS: Multivitamins,Therapeutic Tablet 1 TABLET PO (08:51)
[2022-09-17] MEDS: Hydroxychloroquine 200 MG Tablet 400 MG PO (08:52)
[2022-09-17] MEDS: Potassium Chloride Oral Tablet 20 MEQ PO ×2 (08:53→17:05)
[2022-09-17] MEDS: Folic Acid 1 MG Tablet 2 MG PO (08:54)
[2022-09-17 09:43] LABS: Differential Comment SCANNED
[2022-09-17] MEDS: Tuberculin,Purif.prot.deriv. 50 TU/ML Vial 0.1 ML ID (13:31)
[2022-09-17 15:41] VITALS: BP 144/76; PULSE 83; RESP 16; TEMP 36.1; O2SAT 95
[2022-09-17] MEDS: Pravastatin 40 MG Tablet PO (21:55)
[2022-09-18] MEDS: OLANZapine 2.5 MG Tablet 7.5 MG PO (05:42)
[2022-09-18] MEDS: Pantoprazole Sodium 40 MG Tablet PO (05:42)
[2022-09-18] MEDS: Levothyroxine 75 MCG Tablet PO (05:42)
[2022-09-18] MEDS: Citalopram 40 MG TABLET PO (05:42)
[2022-09-18] MEDS: Aspirin 81 MG TAB.CHEW PO ×2 (05:42→17:12)
[2022-09-18] MEDS: Carbidopa/Levodopa 25/100 Tablet PO ×3 (05:43→20:42)
[2022-09-18] MEDS: Senna/Docusate Sodium 1 Tablet 2 TABLET PO ×2 (05:43→17:12)
[2022-09-18 07:58] VITALS: O2SAT 91
[2022-09-18] MEDS: Potassium Chloride Oral Tablet 20 MEQ PO ×2 (08:22→17:13)
[2022-09-18] MEDS: Folic Acid 1 MG Tablet 2 MG PO (08:23)
[2022-09-18] MEDS: Multivitamins,Therapeutic Tablet 1 TABLET PO (08:24)
[2022-09-18] MEDS: Hydroxychloroquine 200 MG Tablet 400 MG PO (08:24)
[2022-09-18] MEDS: oxyCODONE 5 MG Tablet PO ×2 (13:39→20:42)
[2022-09-18 15:42] VITALS: BP 120/67; PULSE 91; RESP 18; TEMP 36.4; O2SAT 92
[2022-09-18 20:26] VITALS: PULSE 99; RESP 16; O2SAT 94
[2022-09-18] MEDS: Pravastatin 40 MG Tablet PO (20:42)
[2022-09-19 05:40] LABS: Absolute Lymphocyte Count 3.16 X10^3/uL (0.83-4.51); Absolute Neutrophil Count 7.4 X10^3/uL (2.0-7.7); Basophil# 0.04 X10^3/uL; Basophil% 0.3 % (0-1); Eosinophil# 0.26 X10^3/uL; Eosinophils% 1.9 % (0-5); Hematocrit 24.7 % (37-47); Hemoglobin 7.6 g/dL (12.0-15.0); Lymphocyte # 3.16 X10^3/ul (0.83-4.51); Mean Corp Hgb Conc 30.8 g/dL (32-36); Mean Corpuscular Hgb 29.6 pg (27.0-32.0); Mean Corpuscular Volume 96.1 fL (81-99); Mean Platelet Vol. 10.3 fl (6.2-12.0); Monocyte# 2.77 X10^3/uL; Monocyte% 20.2 % (0-10); NRBC Flagged by Analyzer 0.4 % (0-5); Neutrophil # 7.36 X10^3/uL (2.7-7.7); Neutrophil % 53.5 % (47-70); POSITIVE DIFFERENTIAL YES; Platelet Count 229 K/mm3 (150-450); RBC Distribution Width SD 48.7 fl (35.1-43.9); Red Blood Count 2.57 M/mm3 (4.2-5.4); White Blood Count 13.7 K/mm3 (4.4-11.0)
[2022-09-19] MEDS: Levothyroxine 75 MCG Tablet PO (05:50)
[2022-09-19] MEDS: Aspirin 81 MG TAB.CHEW PO (05:50)
[2022-09-19] MEDS: Carbidopa/Levodopa 25/100 Tablet PO ×3 (05:50→21:36)
[2022-09-19] MEDS: OLANZapine 2.5 MG Tablet 7.5 MG PO (05:50)
[2022-09-19] MEDS: Senna/Docusate Sodium 1 Tablet 2 TABLET PO ×2 (05:50→17:45)
[2022-09-19] MEDS: Citalopram 40 MG TABLET PO (05:51)
[2022-09-19] MEDS: Pantoprazole Sodium 40 MG Tablet PO (05:51)
[2022-09-19 06:17] LABS: Differential Indicated SCAN CRITERIA MET
[2022-09-19] MEDS: Hydroxychloroquine 200 MG Tablet 400 MG PO (08:39)
[2022-09-19] MEDS: Potassium Chloride Oral Tablet 20 MEQ PO ×2 (08:40→17:45)
[2022-09-19] MEDS: Multivitamins,Therapeutic Tablet 1 TABLET PO (08:40)
[2022-09-19] MEDS: Folic Acid 1 MG Tablet 2 MG PO (08:40)
[2022-09-19] MEDS: oxyCODONE 5 MG Tablet PO ×2 (08:49→15:16)
--- NOTE | 2022-09-19 08:59 | NURSING ---
spoke with Jaqueline in infusion center, waiting on blood to be ready, will let us know when blood ready if they can do today or whether it needs to wait until tomorrow.
--- NOTE | 2022-09-19 10:11 | NURSING ---
pt going off unit via WC for blood at this time
--- NOTE | 2022-09-19 14:43 | PHA.CONS_ITS ---
TCU RX Drug Regimen Review Subjective: TCU Admission. 72 YOF presented to the ER with a fall. Hospitalized for left hip fracture, underwent left hip cephalomedullary nail fixation 09/14/[address] Frances. Admitted to TCU with debility for strengthening and rehabilitation. Objective: Allergies linaclotide [From Linzess] Allergy (Mild, Verified 09/14/22 14:13) chest tightness histamine phosphate [From Histatrol] Allergy (Verified 09/14/22 14:13) Unknown Current Medications Generic Name Dose Route Start Last Admin Trade Name Freq PRN Reason Stop Dose Admin Acetaminophen 1,000 mg 09/16/22 20:17 09/16/22 22:23 Acetaminophen 500 Mg Tablet PO 1,000 mg Q6H PRN PRN Administration Pain Score 1-3 Bisacodyl 10 mg 09/16/22 20:15 Bisacodyl 10 Mg Suppository RC X1 PRN Constipation Carbidopa/Levodopa 1 tablet 09/16/22 22:00 09/19/22 05:50 Carbidopa/Levodopa 25/100 Tablet PO 1 tablet TID JENA Administration Citalopram Hydrobromide 40 mg 09/17/22 06:00 09/19/22 05:51 Citalopram 40 Mg Tablet PO 40 mg DAILY JENA Administration Folic Acid 2 mg 09/17/22 08:00 09/19/22 08:40 Folic Acid 1 Mg Tablet PO 2 mg BREAKFAST JENA Administration Hydroxychloroquine Sulfate 400 mg 09/17/22 08:00 09/19/22 08:39 Hydroxychloroquine 200 Mg Tablet PO 400 mg BREAKFAST JENA Administration Levothyroxine Sodium 75 mcg 09/17/22 06:00 09/19/22 05:50 Levothyroxine 75 Mcg Tablet PO 75 mcg DAILY JENA Administration Magnesium Hydroxide 30 ml 09/16/22 20:15 Magnesium Hydroxide 30 Ml Udc PO X1 PRN Constipation Methotrexate 17.5 mg 09/21/22 06:00 Methotrexate 2.5 Mg Tablet PO We@0600 JENA Multivitamins 1 tablet 09/17/22 08:00 09/19/22 08:40 Multivitamins,Therapeutic Tablet PO 1 tablet BREAKFAST JENA Administration Olanzapine 7.5 mg 09/17/22 06:00 09/19/22 05:50 Olanzapine 2.5 Mg Tablet PO 7.5 mg DAILY JENA Administration Oxycodone HCl 5 mg 09/16/22 16:18 09/19/22 08:49 Oxycodone 5 Mg Tablet PO 5 mg Q4H PRN PRN Administration Pain Score 4-10 Pantoprazole Sodium 40 mg 09/17/22 06:00 09/19/22 05:51 Pantoprazole Sodium 40 Mg Tablet PO 40 mg DAILY JENA Administration Potassium Chloride 20 meq 09/16/22 17:00 09/19/22 08:40 Potassium Chloride Oral Tablet 20 Meq PO 20 meq BIDCM JENA Administration Pravastatin Sodium 40 mg 09/16/22 22:00 09/18/22 20:42 Pravastatin 40 Mg Tablet PO 40 mg QHS JENA Administration Senna/Docusate Sodium 2 tablet 09/16/22 18:00 09/19/22 05:50 Senna/Docusate Sodium 1 Tablet PO 2 tablet BID JENA Administration Sodium Chloride 10 - 40 ml 09/17/22 06:14 0.9% Saline Lock 10 Ml Syringe IV UD PRN SALINE FLUSH Tuberculin PPD 0.1 ml 09/24/22 10:00 Tuberculin,Purif.Prot.Deriv. 50 Tu/Ml Vial ID 09/24/22 10:01 X1 ONE Problem List (Last Reviewed 09/16/22 @ 20:[address] Raji Herrmann MD) Hypokalemia (Acute) GERD (gastroesophageal reflux disease) (Acute) Hypothyroidism (Acute) Rheumatoid arthritis (Acute) Depression (Acute) Parkinson disease (Acute) Hyperlipidemia (Acute) Debility (Acute) Closed fracture of left hip (Acute) Vital Signs Temp Pulse Resp BP Pulse Ox O2 Del Method O2 Flow Rate 97.5 F L 99 16 120/67 94 Room Air 2 09/18/22 15:42 09/18/22 20:26 09/18/22 20:26 09/18/22 15:42 09/18/22 20:26 09/19/22 09:30 09/19/22 09:24 Oxygen Flow Rate (L/min) 2 Oxygen Delivery Method Room Air Weight: 90.01 kg Sodium 136 mmol/L (136-145) 09/17/22 06:59 Potassium 3.8 mmol/L (3.5-5.1) 09/17/22 06:59 Chloride 104 mmol/L (98-107) 09/17/22 06:59 Carbon Dioxide 30.0 mmol/L (21.0-32.0) 09/17/22 06:59 Anion Gap 2 (5-15) L 09/17/22 06:59 BUN 10 mg/dL (7-18) 09/17/22 06:59 Creatinine 0.67 mg/dL (0.55-1.02) 09/17/22 06:59 Est GFR (MDRD) Af Amer 111 mL/min (>60) 09/17/22 06:59 Est GFR (MDRD) Non-Af 92 mL/min (>60) 09/17/22 06:59 BUN/Creatinine Ratio 15.0 RATIO (10-20) 09/17/22 06:59 Glucose 92 mg/dL (74-106) 09/17/22 06:59 Assessment/Plan: 1. Pain: acetaminophen 1000mg PO Q6H PRN pain 1-3 and oxycodone 5mg PO Q4H PRN pain 4-10. Resident has had 1 dose of acetaminophen and 6 doses of oxycodone for pain of 4-6 in the hip/LLE/thigh. Please continue to monitor for increased pain, PRN usage, constipation and respiratory depression. 2. Bowel: senna/docusate 2T PO BID, bisacodyl 10mg RC x1 PRN constipation and MOM 30mL PO x1 PRN constipation. Resident has not had any PRN doses. Last documented bowel movement 09/16. Please continue to monitor for constipation and PRN usage. 3. Parkinson disease: Sinemet 25/100mg PO TID. Please continue to monitor for dyskinesia and S/S of Parkinson. 4. Rheumatoid arthritis: methotrexate 17.5mg PO Wednesdays, hydroxychloroquine 400mg PO breakfast and folic acid 2mg PO breakfast. Please continue to monitor for ascites (black box warning- BBW methotrexate), hepatotoxicity (BBW methotrexate), hepatotoxicity (BBW methotrexate), neurotoxicity (BBW methotrexate), rash (BBW methotrexate), rash (BBW methotrexate). 5. Hypothyroidism: levothyroxine 75mcg PO daily. Please continue to monitor TSH (last 09/14/22) and S/S of hypo/hyperthyroidism. 6. GERD: pantoprazole 40mg PO daily. Please continue to monitor S/S of GERD and diarrhea (BEERs medication). 7. Hypokalemia: potassium chloride 20mEq PO BIDCM. Please continue to monitor potassium (last 3.8mmol/L). 8. Hyperlipidemia: pravastatin 40mg PO QHS. Please continue to monitor lipid panel (last 08/04/22), LFTs (last 08/04/22) and muscle pain. 9. Nutrition: multivitamin 1T PO breakfast. Please continue to monitor. Assessment/Plan for indications treated with psychotropic medications: 1. Depression: citalopram 40mg PO daily. Please see physician note regarding GDR. Please continue to monitor for suicidal ideation (black box warning), falls/fractures (BEERs criteria) and sodium (last 136mmol/L). 2. Schizophrenia: olanzapine 7.5mg PO daily. Please see physician note regarding GDR. Please continue to monitor for dementia/delirium (BEERs medication), falls/fractures (BEERs medication), Parkinson disease worsening (BEERs criteria due to potential for worsened parkinsonian symptoms), weight gain, lipid panel and BP (last 120/67). Medical chart and medication regimen reviewed. The following medication irregu larities or issues were identified: None Date of Note:: 09/19/22
--- NOTE | 2022-09-19 14:49 | NURSING ---
Blueprint Reader Note; Activity Asset: Cody Marti is independent in her choice of in room activities. She prefers in room activities over group at this time due to medical condition. She stated she enjoys visits w/family and friends, watching Gun Smoke and resting. She will welcome visit from both the rand cementer and therapy dog when available. Staff will visit weekly and offer in room and out of room activities and respect her right to say no.
--- NOTE | 2022-09-19 15:49 | NURSING ---
Offered bivalent covid booster, education provided on vaccine. Patient refuses at this time.
[2022-09-19 16:00] VITALS: BP 128/70; PULSE 91; RESP 14; TEMP 37; O2SAT 94
[2022-09-19] MEDS: Pravastatin 40 MG Tablet PO (21:36)
[2022-09-20] MEDS: Levothyroxine 75 MCG Tablet PO (05:50)
[2022-09-20] MEDS: OLANZapine 2.5 MG Tablet 7.5 MG PO (05:50)
[2022-09-20] MEDS: Citalopram 40 MG TABLET PO (05:50)
[2022-09-20] MEDS: Senna/Docusate Sodium 1 Tablet 2 TABLET PO (05:50)
[2022-09-20] MEDS: Acetaminophen 500 MG Tablet 1000 MG PO (05:50)
[2022-09-20] MEDS: Carbidopa/Levodopa 25/100 Tablet PO ×3 (05:50→21:26)
[2022-09-20] MEDS: Pantoprazole Sodium 40 MG Tablet PO (05:50)
[2022-09-20] MEDS: Potassium Chloride Oral Tablet 20 MEQ PO ×2 (08:14→17:20)
[2022-09-20] MEDS: Folic Acid 1 MG Tablet 2 MG PO (08:14)
[2022-09-20] MEDS: Multivitamins,Therapeutic Tablet 1 TABLET PO (08:14)
[2022-09-20] MEDS: Hydroxychloroquine 200 MG Tablet 400 MG PO (08:14)
--- NOTE | 2022-09-20 09:12 | NURSING ---
Therapy noted drainage at incision site. No redness, edema, or s/s of infection noted. RN covered with ABD and secured with tape. Patient marta. well.
[2022-09-20 09:54] LABS: Pathologist Review Reviewed
[2022-09-20 09:59] LABS: Pathologist Review Reviewed
[2022-09-20 11:29] VITALS: BMI 35.0
[2022-09-20 14:01] VITALS: BP 125/67; PULSE 84; RESP 16; TEMP 36.4; O2SAT 95
[2022-09-20 16:45] LABS: Hematocrit 36.3 % (37-47); Hemoglobin 11.2 g/dL (12.0-15.0)
--- NOTE | 2022-09-20 17:20 | CASEMGMT ---
Social Work Met with patient to complete initial assessment. Introduced self and role. Discussed code status and MOLST form. Pt wishes to be DNR-CCA, WITH Intubation. DNR form and MOLST placed in Dr folder. Nursing notified. Educated to [facility], [place] insurance with [employer] / and continued stay is not guaranteed with each review. pt's goal is to return home with . See SW assessment for further details on home set up and mental health history. SW to continue to follow for DC planning. Carmelina Ramirez, TEACHER VOCATIONAL TRAINING PRINCIPAL DATABASE DEVELOPER
[2022-09-20 21:00] VITALS: PULSE 92; RESP 18; O2SAT 94
[2022-09-20] MEDS: Pravastatin 40 MG Tablet PO (21:26)
[2022-09-21 05:26] VITALS: BP 124/71; PULSE 85; O2SAT 94
[2022-09-21] MEDS: Methotrexate 2.5 MG Tablet 17.5 MG PO (05:28)
[2022-09-21] MEDS: Citalopram 40 MG TABLET PO (05:28)
[2022-09-21] MEDS: OLANZapine 2.5 MG Tablet 7.5 MG PO (05:28)
[2022-09-21] MEDS: Carbidopa/Levodopa 25/100 Tablet PO ×3 (05:28→22:39)
[2022-09-21] MEDS: Pantoprazole Sodium 40 MG Tablet PO (05:28)
[2022-09-21] MEDS: Levothyroxine 75 MCG Tablet PO (05:28)
[2022-09-21 07:10] VITALS: O2SAT 95
[2022-09-21] MEDS: Folic Acid 1 MG Tablet 2 MG PO (07:44)
[2022-09-21] MEDS: Potassium Chloride Oral Tablet 20 MEQ PO ×2 (07:44→17:07)
[2022-09-21] MEDS: Hydroxychloroquine 200 MG Tablet 400 MG PO (07:44)
[2022-09-21] MEDS: Multivitamins,Therapeutic Tablet 1 TABLET PO (07:44)
[2022-09-21] MEDS: Acetaminophen 500 MG Tablet 1000 MG PO ×2 (07:48→22:32)
--- NOTE | 2022-09-21 09:32 | CASEMGMT ---
Addendum entered by Carmelina Ramirez 09/21/22 13:32: SW updated pt that insurance approved with [employer] 09/28 and EDC 10/01 Original Note: Social Work IDT met with patient and for care plan meeting. Discussed patient's progress in PT/OT/SN. Educated to [facility] insurance with [employer] 09/20 and continued stay is not guaranteed. Pt's goal is to return home with . However, uses rollator and not physically able to assist pt. Pt must return to PLOF to return home. SW to continue to follow for DC planning. Carmelina Ramirez, LILLIAN DAVEW
[2022-09-21 13:40] VITALS: BP 124/65; PULSE 78; RESP 16; TEMP 36.2; O2SAT 97
[2022-09-21 22:00] VITALS: PULSE 85; RESP 16; O2SAT 92
[2022-09-21] MEDS: Pravastatin 40 MG Tablet PO (22:38)
[2022-09-22] MEDS: Senna/Docusate Sodium 1 Tablet 2 TABLET PO (05:25)
[2022-09-22] MEDS: Citalopram 40 MG TABLET PO (05:25)
[2022-09-22] MEDS: Pantoprazole Sodium 40 MG Tablet PO ×2 (05:25→18:11)
[2022-09-22] MEDS: Carbidopa/Levodopa 25/100 Tablet PO ×3 (05:25→22:04)
[2022-09-22] MEDS: OLANZapine 2.5 MG Tablet 7.5 MG PO (05:25)
[2022-09-22] MEDS: Levothyroxine 75 MCG Tablet PO (05:25)
[2022-09-22 06:43] VITALS: O2SAT 95
[2022-09-22] MEDS: Hydroxychloroquine 200 MG Tablet 400 MG PO (08:26)
[2022-09-22] MEDS: Potassium Chloride Oral Tablet 20 MEQ PO ×2 (08:26→18:11)
[2022-09-22] MEDS: Multivitamins,Therapeutic Tablet 1 TABLET PO (08:26)
[2022-09-22] MEDS: Folic Acid 1 MG Tablet 2 MG PO (08:26)
[2022-09-22] MEDS: Acetaminophen 500 MG Tablet 1000 MG PO (08:30)
[2022-09-22 14:53] VITALS: BP 125/67; PULSE 81; RESP 16; TEMP 36.2; O2SAT 95
--- NOTE | 2022-09-22 15:12 | NURSING ---
Patient had episode of emesis this afternoon. Denies nausea and feels it comes from gastric reflux. Reports relief after emesis. She is taking Protonix while at hospital but reports taking omeprazole at home. Patient reports feels this change has not been as affective. Dr. Alba made aware. Sushma-mariano provided to patient and denies further needs.
--- NOTE | 2022-09-22 15:35 | CHAPLAIN ---
Type of Pastoral Visit _x__ Initial Visit ___ Follow-up Visit ___ On-call Visit ___ General Patient Visit ___ Spiritual Assessment ___ Family Conference ___ Bereavement ___ Rapid Response ___ Code Blue ___ Other (describe below) Pastoral Care Referral From _x__ Patient ___ Family ___ Nurse ___ Physician ___ Speeder Hand ___ Search Lead ___ Other (describe below) Sacrament/Intervention _x__ Active listening ___ Anointing ___ Mandaen ___ Bereavement ___ Communion ___ Ying exploration ___ ___ Life review ___ Prayer ___ Reconciliation ___ Sacrament of Sick ___ Supportive presence ___ Wedding ___ Other (describe below) Pastoral Comments patient and spouse are in the room and both are watching TV; brief casual conversation with offer of presence and support; pt reports doing fine and has no concerns or needs at this time; offer of support as needed in the future is given
[2022-09-22 21:53] VITALS: PULSE 84; RESP 16; O2SAT 95
[2022-09-22] MEDS: oxyCODONE 5 MG Tablet PO (22:03)
[2022-09-22] MEDS: Pravastatin 40 MG Tablet PO (22:04)
[2022-09-23] MEDS: Pantoprazole Sodium 40 MG Tablet PO ×2 (05:32→17:14)
[2022-09-23] MEDS: Levothyroxine 75 MCG Tablet PO (05:32)
[2022-09-23] MEDS: Citalopram 40 MG TABLET PO (05:32)
[2022-09-23] MEDS: Carbidopa/Levodopa 25/100 Tablet PO ×3 (05:32→21:18)
[2022-09-23] MEDS: OLANZapine 2.5 MG Tablet 7.5 MG PO (05:32)
[2022-09-23] MEDS: Potassium Chloride Oral Tablet 20 MEQ PO ×2 (07:52→17:11)
[2022-09-23] MEDS: Folic Acid 1 MG Tablet 2 MG PO (07:53)
[2022-09-23] MEDS: Hydroxychloroquine 200 MG Tablet 400 MG PO (07:53)
[2022-09-23] MEDS: Multivitamins,Therapeutic Tablet 1 TABLET PO (07:53)
[2022-09-23] MEDS: oxyCODONE 5 MG Tablet PO (10:30)
[2022-09-23 16:00] VITALS: BP 110/55; PULSE 80; RESP 16; TEMP 36.2; O2SAT 96
--- NOTE | 2022-09-23 16:45 | CASEMGMT ---
Social Work BIMS () and PHQ-9 (08/15) completed for MDS assessment. Carmelina Ramirez MSW SCALE AGENT
[2022-09-23] MEDS: Pravastatin 40 MG Tablet PO (21:18)
[2022-09-24] MEDS: OLANZapine 2.5 MG Tablet 7.5 MG PO (05:24)
[2022-09-24] MEDS: Levothyroxine 75 MCG Tablet PO (05:25)
[2022-09-24] MEDS: Carbidopa/Levodopa 25/100 Tablet PO ×3 (05:25→20:47)
[2022-09-24] MEDS: Citalopram 40 MG TABLET PO (05:25)
[2022-09-24] MEDS: Pantoprazole Sodium 40 MG Tablet PO ×2 (05:28→18:05)
[2022-09-24 07:48] LABS: Absolute Lymphocyte Count 2.07 X10^3/uL (0.83-4.51); Absolute Neutrophil Count 5.3 X10^3/uL (2.0-7.7); Basophil# 0.04 X10^3/uL; Basophil% 0.4 % (0-1); Eosinophil# 0.21 X10^3/uL; Eosinophils% 2.2 % (0-5); Hematocrit 35.8 % (37-47); Hemoglobin 11.1 g/dL (12.0-15.0); Lymphocyte # 2.07 X10^3/ul (0.83-4.51); Lymphocyte % 21.9 % (19-41); Mean Corpuscular Hgb 29.1 pg (27.0-32.0); Mean Corpuscular Volume 93.7 fL (81-99); Mean Platelet Vol. 10.3 fl (6.2-12.0); Monocyte# 1.72 X10^3/uL; Monocyte% 18.2 % (0-10); NRBC Flagged by Analyzer 0 % (0-5); Neutrophil # 5.32 X10^3/uL (2.7-7.7); Neutrophil % 56.1 % (47-70); POSITIVE DIFFERENTIAL YES; Platelet Count 337 K/mm3 (150-450); RBC Distribution Width CV 14.1 % (11.6-14.6); RBC Distribution Width SD 47.6 fl (35.1-43.9); Red Blood Count 3.82 M/mm3 (4.2-5.4); White Blood Count 9.5 K/mm3 (4.4-11.0)
[2022-09-24 07:52] LABS: Differential Indicated SCAN CRITERIA MET
[2022-09-24] MEDS: Hydroxychloroquine 200 MG Tablet 400 MG PO (08:01)
[2022-09-24] MEDS: Folic Acid 1 MG Tablet 2 MG PO (08:01)
[2022-09-24] MEDS: Multivitamins,Therapeutic Tablet 1 TABLET PO (08:01)
[2022-09-24] MEDS: Potassium Chloride Oral Tablet 20 MEQ PO ×2 (08:01→18:05)
[2022-09-24] MEDS: Senna/Docusate Sodium 1 Tablet 2 TABLET PO (08:06)
[2022-09-24 08:22] LABS: Anion Gap 7 (5-15); BUN 12 mg/dL (7-18); BUN/Creat Ratio 17.7 RATIO (10-20); Chloride 106 mmol/L (98-107); Creatinine, Serum 0.68 mg/dL (0.55-1.02); EST Glomerular Filtration Rate 90 mL/min (>60); Est Glom Filt Rate - Afr Amer 109 mL/min (>60); Estimated Creatinine Clearance 40.83 ml/min; Glucose 85 mg/dL (74-106); Potassium 3.6 mmol/L (3.5-5.1); Sodium Level 138 mmol/L (136-145)
[2022-09-24] MEDS: oxyCODONE 5 MG Tablet PO (09:18)
[2022-09-24] MEDS: Tuberculin,Purif.prot.deriv. 50 TU/ML Vial 0.1 ML ID (11:36)
[2022-09-24 16:00] VITALS: BP 116/68; PULSE 84; RESP 15; TEMP 36.1; O2SAT 94
[2022-09-24] MEDS: Pravastatin 40 MG Tablet PO (20:48)
[2022-09-24 22:00] VITALS: O2SAT 90
[2022-09-25] MEDS: Acetaminophen 500 MG Tablet 1000 MG PO (05:55)
[2022-09-25] MEDS: Carbidopa/Levodopa 25/100 Tablet PO ×3 (05:56→20:09)
[2022-09-25] MEDS: OLANZapine 2.5 MG Tablet 7.5 MG PO (05:56)
[2022-09-25] MEDS: Levothyroxine 75 MCG Tablet PO (05:56)
[2022-09-25] MEDS: Citalopram 40 MG TABLET PO (05:57)
[2022-09-25] MEDS: Pantoprazole Sodium 40 MG Tablet PO ×2 (06:00→17:31)
[2022-09-25] MEDS: Folic Acid 1 MG Tablet 2 MG PO (08:25)
[2022-09-25] MEDS: Hydroxychloroquine 200 MG Tablet 400 MG PO (08:25)
[2022-09-25] MEDS: Potassium Chloride Oral Tablet 20 MEQ PO ×2 (08:25→17:31)
[2022-09-25] MEDS: Multivitamins,Therapeutic Tablet 1 TABLET PO (08:25)
[2022-09-25 09:34] VITALS: PULSE 83; RESP 18; O2SAT 97
[2022-09-25 14:52] VITALS: BP 114/63; PULSE 81; RESP 15; TEMP 36.9; O2SAT 93
[2022-09-25] MEDS: Pravastatin 40 MG Tablet PO (20:09)
[2022-09-26] MEDS: OLANZapine 2.5 MG Tablet 7.5 MG PO (05:07)
[2022-09-26] MEDS: Pantoprazole Sodium 40 MG Tablet PO ×2 (05:08→17:43)
[2022-09-26] MEDS: Carbidopa/Levodopa 25/100 Tablet PO ×3 (05:08→21:12)
[2022-09-26] MEDS: Levothyroxine 75 MCG Tablet PO (05:08)
[2022-09-26] MEDS: Citalopram 40 MG TABLET PO (05:08)
[2022-09-26 07:07] VITALS: O2SAT 96
[2022-09-26] MEDS: Potassium Chloride Oral Tablet 20 MEQ PO ×2 (07:51→17:43)
[2022-09-26] MEDS: Folic Acid 1 MG Tablet 2 MG PO (07:51)
[2022-09-26] MEDS: Multivitamins,Therapeutic Tablet 1 TABLET PO (07:52)
[2022-09-26] MEDS: Hydroxychloroquine 200 MG Tablet 400 MG PO (07:52)
[2022-09-26 10:00] VITALS: PULSE 88; RESP 16; O2SAT 95
[2022-09-26] MEDS: oxyCODONE 5 MG Tablet PO (13:37)
[2022-09-26 14:23] VITALS: BP 127/64; PULSE 83; RESP 16; TEMP 36.6; O2SAT 90
[2022-09-26] MEDS: Pravastatin 40 MG Tablet PO (21:12)
[2022-09-27] MEDS: Pantoprazole Sodium 40 MG Tablet PO ×2 (05:16→16:58)
[2022-09-27] MEDS: Carbidopa/Levodopa 25/100 Tablet PO ×3 (05:16→21:07)
[2022-09-27] MEDS: Levothyroxine 75 MCG Tablet PO (05:16)
[2022-09-27] MEDS: OLANZapine 2.5 MG Tablet 7.5 MG PO (05:16)
[2022-09-27] MEDS: Citalopram 40 MG TABLET PO (05:16)
[2022-09-27] MEDS: Acetaminophen 500 MG Tablet 1000 MG PO ×2 (08:19→21:06)
[2022-09-27] MEDS: Potassium Chloride Oral Tablet 20 MEQ PO ×2 (08:20→16:58)
[2022-09-27] MEDS: Multivitamins,Therapeutic Tablet 1 TABLET PO (08:20)
[2022-09-27] MEDS: Hydroxychloroquine 200 MG Tablet 400 MG PO (08:20)
[2022-09-27] MEDS: Folic Acid 1 MG Tablet 2 MG PO (08:20)
[2022-09-27 13:41] VITALS: BMI 34.3
[2022-09-27 13:42] VITALS: BP 117/64; PULSE 80; RESP 16; TEMP 36.4; O2SAT 94
[2022-09-27 14:50] VITALS: O2SAT 96
[2022-09-27] MEDS: Senna/Docusate Sodium 1 Tablet 2 TABLET PO (21:06)
[2022-09-27] MEDS: Pravastatin 40 MG Tablet PO (21:08)
[2022-09-28] MEDS: Citalopram 40 MG TABLET PO (04:16)
[2022-09-28] MEDS: Carbidopa/Levodopa 25/100 Tablet PO ×3 (04:16→21:18)
[2022-09-28] MEDS: Levothyroxine 75 MCG Tablet PO (04:16)
[2022-09-28] MEDS: OLANZapine 2.5 MG Tablet 7.5 MG PO (04:16)
[2022-09-28] MEDS: Pantoprazole Sodium 40 MG Tablet PO ×2 (04:16→18:14)
[2022-09-28] MEDS: Methotrexate 2.5 MG Tablet 17.5 MG PO (04:17)
[2022-09-28] MEDS: Hydroxychloroquine 200 MG Tablet 400 MG PO (07:56)
[2022-09-28] MEDS: Multivitamins,Therapeutic Tablet 1 TABLET PO (07:56)
[2022-09-28] MEDS: Folic Acid 1 MG Tablet 2 MG PO (07:56)
[2022-09-28] MEDS: Potassium Chloride Oral Tablet 20 MEQ PO ×2 (07:56→18:14)
[2022-09-28 08:30] VITALS: O2SAT 97
--- NOTE | 2022-09-28 13:20 | CASEMGMT ---
Social Work Insurance issued LCD 09/30, DC 10/01. SW spoke with pt to update. Explained appeal rights. Pt agreeable to DC home with . Offered HHC. Pt requesting [facility], whom pt's uses. No DME needs. Pt has transportation home. LEONORA phoned referral to [facility] PT/OT. Plan: DC home 10/01, [facility] PT/OT LILLIAN ZelayaW
[2022-09-28] MEDS: oxyCODONE 5 MG Tablet PO (13:33)
--- NOTE | 2022-09-28 14:18 | NURSING ---
Blanker Operator speak with Dr. Frances office regarding unable to take patient to appt on 09/29. Office reports staple removal and x-rays can be done at hospital and to let Dr. Frances done when x-rays complete. F/U in 4 weeks needs scheduled.
[2022-09-28 15:21] VITALS: BP 140/71; PULSE 60; RESP 18; TEMP 35.9; O2SAT 92
[2022-09-28 21:00] VITALS: PULSE 85; RESP 16; O2SAT 90
--- NOTE | 2022-09-28 21:11 | DS.PCM_ITS ---
Providers Date of Admission: 09/16/22 Primary Care Physician: Dr. Raji Herrmann MD Reason For Visit: LEFT IMPACTED INTERTROCHANTERIC FRACTURE Diagnosis Discharge Diagnosis (1) Debility: Status: Acute Code(s): R53.81 - Other malaise (2) Closed fracture of left hip: Status: Inactive Code(s): S72.002A - Fracture of unspecified part of neck of left femur, initial encounter for closed fracture (3) Hyperlipidemia: Status: Acute Code(s): E78.5 - Hyperlipidemia, unspecified (4) Parkinson disease: Status: Acute Code(s): G20 - Parkinson's disease (5) Depression: Status: Acute Code(s): F32.A - Depression, unspecified (6) Rheumatoid arthritis: Status: Acute Code(s): M06.9 - Rheumatoid arthritis, unspecified (7) Hypothyroidism: Status: Acute Code(s): E03.9 - Hypothyroidism, unspecified (8) GERD (gastroesophageal reflux disease): Status: Acute Code(s): K21.9 - Gastro-esophageal reflux disease without esophagitis (9) Hypokalemia: Status: Acute Code(s): E87.6 - Hypokalemia Plan 72 year old female with below past medical history hospitalized for left hip fracture, underwent left hip cephalomedullary nail fixation 09/14/[address] Frances, admitted to TCU with debility, here for rehabilitation, strengthening, prior to discharge home with . * Debility - PT/OT. * Pain - Tylenol 1000mg q6h prn pain (1-3), Oxycodone 5mg q4h prn pain (4-10). * Bowel - senna/colace 2 tablets bid, Dulcolax 10mg pr x 1 prn, MOM 30ml po x 1 prn. * Adult immunization - Administer pneumonia vaccine, covid19 vaccine, flu vaccine as appropriate. * DVT prophylaxis - Aspirin 81mg bid. * Parkinson Disease - Sinemet 25/100mg tid. 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 * Rheumatoid arthritis - MTX 17.5mg per week, Plaquenil 400mg qam, Folic acid 2mg daily. * Hypothyroidism - Levothyroxine 75mcg daily. * Nutrition - MVI daily. 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 * GERD - Pantoprazole 40mg daily. * Hypokalemia - KCL 20meq bidcm. * Hyperlipidemia - Pravastatin 40mg qhs. Medications at Discharge Home Medications pravastatin 40 mg tablet 40 mg PO QHS CHOLESTEROL 03/22/17 carbidopa 25 mg-levodopa 100 mg tablet 1 tab PO TID parkinsons 09/13/22 citalopram 40 mg tablet 40 mg PO DAILY DEPRESSION 09/13/22 folic acid 1 mg tablet 2 mg PO DAILY SUPPLEMENT 09/13/22 hydroxychloroquine 200 mg tablet 400 mg PO DAILY RHEUMATOID ARTHRITIS 09/13/22 levothyroxine 75 mcg tablet 75 mcg PO DAILY THYROID 09/13/22 methotrexate sodium 2.5 mg tablet 17.5 mg PO WE immunosupressive 09/13/22 olanzapine 7.5 mg tablet 7.5 mg PO DAILY MOOD 09/13/22 omeprazole 40 mg capsule,delayed release 40 mg PO DAILY ACID REFLUX 09/13/22 potassium chloride 20 mEq tablet,extended release(part/cryst) 20 meq PO BID SUPPLEMENT 09/13/22 acetaminophen 500 mg tablet 1,000 mg PO Q6H PRN PRN Pain Score 1-3 #0 tabs 09/28/22 oxycodone 5 mg tablet 5 mg PO Q4H PRN PRN Pain Score 4-10 7 days #42 tabs 09/28/22 Hospital Course Operations - (See below.) Procedures None Summary of Care Provided Minutes Spent on Discharge: 35 Hospital Course: 72 year old female with below past medical history hospitalized for left hip fracture, underwent left hip cephalomedullary nail fixation 09/14/[address] Frances, admitted to TCU with debility, here for rehabilitation, strengthening, prior to discharge home with . 09/19/2022 Transfused 2 units PRBC for Hemoglobin 7.6. Discharge home with 10/01/2022, [facility] PT/OT. Physical Exam Const alert General Appearance: cooperative HEENT normocephalic Eyes PERRL and EOMs intact bilaterally Neck supple, no JVD and no carotid bruits Resp normal respiratory effort, normal air movement and clear to auscultation bilaterally Cardio regular rate and regular rhythm GI normal to inspection, nondistended, normoactive bowel sounds, non-tender and non-distended Extremity normal capillary refill General Extremity: Negative for edema Skin no rashes or lesions noted General Skin Exam: no breakdown Psych affect normal Appearance: appropriate Weight / BMI Weight Weight: 87.861 kg Body Mass Index (BMI) 34.3 ABG / Lab / Microbiology Data Result Diagrams: 09/24/22 07:26 09/24/22 07:26 Microbiology: Microbiology 09/20/22 05:45 Nasal Secretion SARS-CoV-2 Antigen (Rapid) - Final 09/18/22 05:47 Nasal Secretion SARS-CoV-2 Antigen (Rapid) - Final D/C Instructions Discharge Diet: No restrictions Discharge Activity: Return to Normal Activity, May Shower and Use Walker Weight Bearing Status: Weight bearing as tolerated Call your doctor if you observe: Fever of 101 or Higher, Inability to urinate, Inability to have a bowel movement, Shortness of breath, Dizziness, Fainting spells, Swelling in the ankles, Chest pain and Uncontrolled pain Additional Instructions: Discharge home with 10/01/2022, [facility] PT/OT. Please Follow Up With: Jorge Frances MD When: As scheduled. Meaningful Use Info Meaningful Use Diagnoses (Choose all that apply): None applicable Discharge Plan Admission Admit Date/Time: 09/16/22 16:02 Primary Reason for Your Visit: Debility. Attending Provider: Raji Herrmann Chi Primary Care Provider: Raji Herrmann Chi Instructions Additional Instructions / Restrictions: Discharge home with 10/01/2022, [facility] PT/OT. Discharge Orders/Prescriptions Prescriptions: New acetaminophen 500 mg Tablet 1,000 mg PO Q6H PRN PRN (Reason: Pain Score 1-3) Qty: 0 0RF oxycodone 5 mg Tablet 5 mg PO Q4H PRN PRN (Reason: Pain Score 4-10) 7 Days Qty: 42 0RF Continued pravastatin 40 MG tablet 40 mg PO QHS citalopram 40 mg tablet 40 mg PO DAILY olanzapine 7.5 mg tablet 7.5 mg PO DAILY potassium chloride 20 mEq tablet,ER particles/crystals 20 meq PO BID levothyroxine 75 mcg tablet 75 mcg PO DAILY methotrexate sodium 2.5 mg tablet 17.5 mg PO WE folic acid 1 mg tablet 2 mg PO DAILY hydroxychloroquine 200 mg tablet 400 mg PO DAILY carbidopa-levodopa 25-100 mg tablet 1 tab PO TID omeprazole 40 mg capsule,delayed release(DR/EC) 40 mg PO DAILY Discontinued calcium carbonate-vitamin D3 600 mg-5 mcg (200 unit) Tablet 1 tab PO BID multivitamin Tablet 1 tab PO DAILY acetaminophen 325 mg Tablet 650 mg PO Q6H PRN PRN (Reason: Pain 1-10 Or Fever) Qty: 0 0RF oxycodone 5 mg Tablet 5 mg PO Q4H PRN PRN (Reason: Pain Score 4-10) 3 Days Qty: 14 0RF sennosides-docusate sodium [Stool Softener-Stimulant Laxat] 8.6-50 mg tablet 2 tab PO BID aspirin 81 mg tablet,chewable 81 mg PO BID Referrals / Follow Up: Raji Herrmann Chi, MD [Primary Care Provider] - Disposition Disposition (needs filled in before D/C Order can be placed): Home Health Service
[2022-09-28] MEDS: Pravastatin 40 MG Tablet PO (21:18)
[2022-09-28] MEDS: Acetaminophen 500 MG Tablet 1000 MG PO (21:18)
[2022-09-29] MEDS: OLANZapine 2.5 MG Tablet 7.5 MG PO (05:06)
[2022-09-29] MEDS: Carbidopa/Levodopa 25/100 Tablet PO ×3 (05:06→21:21)
[2022-09-29] MEDS: Citalopram 40 MG TABLET PO (05:06)
[2022-09-29] MEDS: Levothyroxine 75 MCG Tablet PO (05:06)
[2022-09-29] MEDS: Pantoprazole Sodium 40 MG Tablet PO ×2 (05:06→17:17)
[2022-09-29] MEDS: Folic Acid 1 MG Tablet 2 MG PO (08:23)
[2022-09-29] MEDS: oxyCODONE 5 MG Tablet PO ×2 (08:23→17:17)
[2022-09-29] MEDS: Potassium Chloride Oral Tablet 20 MEQ PO ×2 (08:23→17:18)
[2022-09-29] MEDS: Multivitamins,Therapeutic Tablet 1 TABLET PO (08:23)
[2022-09-29] MEDS: Hydroxychloroquine 200 MG Tablet 400 MG PO (08:24)
[2022-09-29 10:00] VITALS: PULSE 83; RESP 18; O2SAT 95
--- NOTE | 2022-09-29 12:12 | RAD_ITS ---
HISTORY: f/u post-op. TECHNIQUE: XR Hip Unilateral with Pelvis when performed; 2-3 Views. COMPARISON: 09/14/2022. FINDINGS: OSSEOUS STRUCTURES: Gamma nail fixation of displaced intertrochanteric femur fracture. Medial displacement of the lesser trochanteric fragment again noted. Mild periosteal reaction and bony bridging. Note that overlapping bowel shadows may obscure osseous detail. Mineralization unremarkable. JOINT SPACES: No dislocation. Mild degenerative changes. SOFT TISSUES: Tubal ligation clips. Skin aleyda removed. RAD/HIP, UNI W/ Pelvis 2-3 Views IMPRESSION: ORIF healing intertrochanteric fracture of the left femur with unchanged medial displacement of the lesser trochanter fracture fragment. Electronically Signed: Laverne Donato MD at 12:24 EDT ,
--- NOTE | 2022-09-29 12:56 | NURSING ---
21 aleyda removed from Left hip and upper thigh, incisions well approximated. Scant amount of drainage present to upper thigh, 4x4 applied and secured. pt tolerated well.
--- NOTE | 2022-09-29 13:18 | MDS.RN ---
Information for the mds was obtained from review of the clinical record, interview of resident, staff, and direct observation of resident's care.
--- NOTE | 2022-09-29 14:02 | MDS.RN ---
Pain interview for [facility] 10/01/22
[2022-09-29 15:15] VITALS: BP 122/63; PULSE 77; RESP 14; TEMP 36.7; O2SAT 93
[2022-09-29] MEDS: Senna/Docusate Sodium 1 Tablet 2 TABLET PO (17:20)
[2022-09-29] MEDS: Pravastatin 40 MG Tablet PO (21:21)
[2022-09-30] MEDS: oxyCODONE 5 MG Tablet PO ×3 (06:06→22:50)
[2022-09-30] MEDS: OLANZapine 2.5 MG Tablet 7.5 MG PO (06:07)
[2022-09-30] MEDS: Levothyroxine 75 MCG Tablet PO (06:07)
[2022-09-30] MEDS: Citalopram 40 MG TABLET PO (06:07)
[2022-09-30] MEDS: Pantoprazole Sodium 40 MG Tablet PO ×2 (06:07→17:29)
[2022-09-30] MEDS: Carbidopa/Levodopa 25/100 Tablet PO ×3 (06:07→22:50)
[2022-09-30] MEDS: Multivitamins,Therapeutic Tablet 1 TABLET PO (08:27)
[2022-09-30] MEDS: Folic Acid 1 MG Tablet 2 MG PO (08:27)
[2022-09-30] MEDS: Potassium Chloride Oral Tablet 20 MEQ PO ×2 (08:27→17:29)
[2022-09-30] MEDS: Hydroxychloroquine 200 MG Tablet 400 MG PO (08:27)
[2022-09-30 08:36] VITALS: PULSE 84; RESP 18; O2SAT 95
[2022-09-30 13:02] VITALS: BP 123/68; PULSE 79; RESP 16; TEMP 36.8; O2SAT 97
[2022-09-30] MEDS: Pravastatin 40 MG Tablet PO (22:50)
[2022-10-01] MEDS: Pantoprazole Sodium 40 MG Tablet PO (06:48)
[2022-10-01] MEDS: Carbidopa/Levodopa 25/100 Tablet PO (06:48)
[2022-10-01] MEDS: Citalopram 40 MG TABLET PO (06:48)
[2022-10-01] MEDS: OLANZapine 2.5 MG Tablet 7.5 MG PO (06:49)
[2022-10-01] MEDS: Levothyroxine 75 MCG Tablet PO (06:49)
[2022-10-01 06:52] LABS: Absolute Neutrophil Count 2.6 X10^3/uL (2.0-7.7); Basophil# 0.04 X10^3/uL; Basophil% 0.5 % (0-1); Eosinophils% 2.6 % (0-5); Hematocrit 38.2 % (37-47); Hemoglobin 11.5 g/dL (12.0-15.0); Lymphocyte % 42.1 % (19-41); Mean Corp Hgb Conc 30.1 g/dL (32-36); Mean Corpuscular Hgb 28.8 pg (27.0-32.0); Mean Corpuscular Volume 95.7 fL (81-99); Mean Platelet Vol. 10.7 fl (6.2-12.0); Monocyte# 1.62 X10^3/uL; Monocyte% 20.7 % (0-10); NRBC Flagged by Analyzer 0 % (0-5); Neutrophil # 2.63 X10^3/uL (2.7-7.7); Neutrophil % 33.6 % (47-70); POSITIVE DIFFERENTIAL YES; Platelet Count 359 K/mm3 (150-450); Red Blood Count 3.99 M/mm3 (4.2-5.4); White Blood Count 7.8 K/mm3 (4.4-11.0)
[2022-10-01 06:55] LABS: Differential Indicated SCAN CRITERIA MET
[2022-10-01 07:21] LABS: Differential Comment SCANNED
[2022-10-01 07:27] LABS: Anion Gap 8 (5-15); BUN 9 mg/dL (7-18); BUN/Creat Ratio 13.3 RATIO (10-20); Chloride 106 mmol/L (98-107); Creatinine, Serum 0.68 mg/dL (0.55-1.02); EST Glomerular Filtration Rate 91 mL/min (>60); Est Glom Filt Rate - Afr Amer 110 mL/min (>60); Estimated Creatinine Clearance 40.83 ml/min; Glucose 91 mg/dL (74-106); Potassium 3.6 mmol/L (3.5-5.1); Sodium Level 140 mmol/L (136-145)
[2022-10-01] MEDS: Hydroxychloroquine 200 MG Tablet 400 MG PO (09:24)
[2022-10-01] MEDS: Acetaminophen 500 MG Tablet 1000 MG PO (09:24)
[2022-10-01] MEDS: Multivitamins,Therapeutic Tablet 1 TABLET PO (09:24)
[2022-10-01] MEDS: Potassium Chloride Oral Tablet 20 MEQ PO (09:25)
[2022-10-01] MEDS: Folic Acid 1 MG Tablet 2 MG PO (09:25)
== END 2022-10-01 11:21 | disposition home health service (06) | DRG 561 ==
PROVIDERS: Admitting Provider Family Medicine Geriatric Medicine; PCP Family Medicine Geriatric Medicine; Visit Provider Family Medicine Geriatric Medicine
DX: S72.142D Displaced intertrochanteric fracture of left femur, subsequent encounter for closed fracture with routine healing (principal); E03.9 Hypothyroidism, unspecified; G20 Parkinson's disease; F20.9 Schizophrenia, unspecified; M06.9 Rheumatoid arthritis, unspecified; E78.5 Hyperlipidemia, unspecified; K21.9 Gastro-esophageal reflux disease without esophagitis; K58.9 Irritable bowel syndrome, unspecified; W19.XXXD Unspecified fall, subsequent encounter; E87.6 Hypokalemia; Z79.82 Long term (current) use of aspirin; Z79.899 Other long term (current) drug therapy; Z79.890 Hormone replacement therapy; F32.A Depression, unspecified
CPT/HCPCS: 36415; 36430; 73502; 80048; 85014; 85018; 85025; 86850; 86900; 86901; 86920; 86922; 87811; 97110; 97116; 97150; 97162; 97166; 97530; 97535; J7040; P9016; A4216; J1940; J8610

== ENCOUNTER 2022-09-19 10:17 | Outpatient (CLI) | payer MEDICARE, SELFPAY ==
[2022-09-19 10:34] VITALS: BP 122/66; PULSE 88; RESP 16; TEMP 36; O2SAT 93; BMI 34.9
[2022-09-19 11:08] VITALS: BP 116/68; PULSE 87; RESP 16; TEMP 36.3; O2SAT 94
[2022-09-19 12:14] VITALS: BP 119/77; PULSE 97; RESP 16; TEMP 36.3; O2SAT 95
[2022-09-19 12:45] VITALS: BP 134/65; PULSE 91; RESP 16; TEMP 36.2; O2SAT 96
[2022-09-19] MEDS: Furosemide 20 MG/2 ML VIAL IV (12:46)
[2022-09-19 13:27] VITALS: BP 135/72; PULSE 88; RESP 16; TEMP 36.3; O2SAT 96
[2022-09-19 13:30] VITALS: BP 133/73; PULSE 90; RESP 16; TEMP 36.2; O2SAT 94
[2022-09-19] MEDS: 0.9% NaCl Peripheral Flush Adult/Peds IV (14:55)
== END 2022-09-19 10:18 | disposition home or self-care (01) ==
PROVIDERS: PCP Family Medicine Geriatric Medicine; Referring Provider Family Medicine Geriatric Medicine; Visit Provider Family Medicine Geriatric Medicine
DX: D62 Acute posthemorrhagic anemia (principal); D64.89 Other specified anemias
CPT/HCPCS: 96374; 36415; 36430; 86850; 86900; 86901; 86920; 86922; J7040; P9016; A4216; J1940

== ENCOUNTER → 2022-10-03 | Outpatient (CLI) | payer MEDICARE, SELFPAY ==
[2022-10-03 12:57] LABS: Absolute Lymphocyte Count 1.54 X10^3/uL (0.83-4.51); Absolute Neutrophil Count 13.1 X10^3/uL (2.0-7.7); Basophil# 0.05 X10^3/uL; Basophil% 0.3 % (0-1); Eosinophil# 0.13 X10^3/uL; Eosinophils% 0.7 % (0-5); Hematocrit 38.6 % (37-47); Hemoglobin 11.8 g/dL (12.0-15.0); Lymphocyte # 1.54 X10^3/ul (0.83-4.51); Lymphocyte % 8.8 % (19-41); Mean Corp Hgb Conc 30.6 g/dL (32-36); Mean Corpuscular Hgb 29.3 pg (27.0-32.0); Mean Corpuscular Volume 95.8 fL (81-99); Mean Platelet Vol. 11.4 fl (6.2-12.0); Monocyte# 2.55 X10^3/uL; Monocyte% 14.6 % (0-10); NRBC Flagged by Analyzer 0 % (0-5); Neutrophil # 13.12 X10^3/uL (2.7-7.7); Neutrophil % 74.9 % (47-70); POSITIVE DIFFERENTIAL YES; Platelet Count 344 K/mm3 (150-450); RBC Distribution Width CV 13.9 % (11.6-14.6); RBC Distribution Width SD 48.7 fl (35.1-43.9); Red Blood Count 4.03 M/mm3 (4.2-5.4); White Blood Count 17.5 K/mm3 (4.4-11.0)
[2022-10-03 13:06] LABS: Differential Indicated SCAN CRITERIA MET
[2022-10-03 13:35] LABS: ALB/GLOB Ratio 0.8 RATIO (0.9-2.4); AST(SGOT) 24 U/L (15-37); Alanine Aminotransfer ALT/SGPT 17 U/L (13-56); Albumin, Serum 3.2 g/dL (3.2-5.0); Alkaline Phosphatase 159 U/L (45-117); Anion Gap 7 (5-15); BUN 6 mg/dL (7-18); BUN/Creat Ratio 8.5 RATIO (10-20); Calcium,Total 9.1 mg/dL (8.5-10.1); Chloride 105 mmol/L (98-107); EST Glomerular Filtration Rate 86 mL/min (>60); Est Glom Filt Rate - Afr Amer 105 mL/min (>60); Globulin 3.9 g/dL (2.2-4.2); Glucose 97 mg/dL (74-106); Potassium 3.6 mmol/L (3.5-5.1); Protein, Total 7.1 g/dL (6.4-8.2); Sodium Level 139 mmol/L (136-145)
[2022-10-04 14:49] LABS: Pathologist Review Reviewed
== END | disposition home or self-care (01) ==
LOC: LAB.FUTURE 11:04 → POLAB3 11:04
PROVIDERS: PCP Family Medicine Geriatric Medicine; Referring Provider Internal Medicine Rheumatology; Visit Provider Internal Medicine Rheumatology
DX: M06.4 Inflammatory polyarthropathy (principal); Z79.899 Other long term (current) drug therapy; D64.9 Anemia, unspecified; E87.6 Hypokalemia
CPT/HCPCS: 36415; 80053; 85025

== ENCOUNTER → 2022-10-03 | Outpatient (CLI) | payer MEDICARE, SELFPAY | END | disposition home or self-care (01) | LOC: LAB.FUTURE 11:03 | PROVIDERS: PCP Family Medicine Geriatric Medicine; Referring Provider Internal Medicine Rheumatology; Visit Provider Internal Medicine Rheumatology | DX: M06.4 Inflammatory polyarthropathy (principal); Z79.899 Other long term (current) drug therapy ==

== ENCOUNTER 2022-10-08 18:05 | Emergency (ER) | payer MEDICARE, SELFPAY ==
[2022-10-08 18:06] VITALS: BP 173/77; PULSE 96; RESP 20; TEMP 36.4; O2SAT 91; BMI 34.2
[2022-10-08 18:14] VITALS: O2SAT 96
--- NOTE | 2022-10-08 18:16 | CT_ITS ---
CT LEFT LOWER EXTREMITY WITH 3-D IMAGING CLINICAL INDICATION: infection TECHNIQUE: Axial CT images of the LEFT lower extremity was performed IV contrast material. Coronal and sagittal reformats were provided. RADIATION DOSAGE (If Supplied By Facility): CTDIvol = ( 19.13 ) mGy, DLP = ( 1025.70 ) mGycm COMPARISON: X-ray 09/29/2022 FINDINGS: Bones: Left IJ fracture with surgical screws spanning the left femoral neck. A short medullary luis extends into the proximal femur. The more cephalad screw is altered in position since the prior study, now traversing the left femoral head and impacting the acetabulum (image 63 of series 602), representing significant interval change. The more inferior screw is similar in position with approximately 3.7 cm extending lateral to the lateral femoral cortex. There is a distal interlocking screw. A small nondisplaced fracture along the posterior femur cortex is seen on image 55 of series 601. There is heterogeneous sclerosis of the femoral head with some contour abnormality seen on image 63 of series 602 that could suggest some component of AVN. Left knee replacement is partially visualized. Soft Tissues: Immediately inferior to inferior surgical screw screw, there is a focal collection measuring 3.3 x 4.0 cm on image 74 series 602 image 73 series 3. No additional focal fluid collection. CT/Extremity Lower without Contra IMPRESSION: 1. 4 cm collection along the lateral left soft tissues, adjacent to the inferior most femoral neck screw. This could represent hematoma although abscess should also be considered based on history and adjacent subcutaneous edema/stranding. 2. Alteration in appearance of femoral neck fixation screw (most superior) now traversing through the femoral neck cortex and impacting/deforming the acetabulum. 3. Heterogeneous sclerosis of the left femoral neck suggesting possibility of AVN. 4. Interval surgical fixation of left IT fracture. Electronically Signed: Evaristo Aguilar (Brooks), at 20:14 EDT ,
[2022-10-08 18:25] LABS: Absolute Lymphocyte Count 1.91 X10^3/uL (0.83-4.51); Absolute Neutrophil Count 8.4 X10^3/uL (2.0-7.7); Basophil# 0.02 X10^3/uL; Basophil% 0.2 % (0-1); Eosinophil# 0.18 X10^3/uL; Eosinophils% 1.4 % (0-5); Hematocrit 37.2 % (37-47); Hemoglobin 11.8 g/dL (12.0-15.0); Lymphocyte # 1.91 X10^3/ul (0.83-4.51); Lymphocyte % 15.2 % (19-41); Mean Corp Hgb Conc 31.7 g/dL (32-36); Mean Corpuscular Hgb 29.6 pg (27.0-32.0); Mean Corpuscular Volume 93.2 fL (81-99); Mean Platelet Vol. 10.8 fl (6.2-12.0); Monocyte# 1.94 X10^3/uL; Monocyte% 15.4 % (0-10); NRBC Flagged by Analyzer 0 % (0-5); Neutrophil # 8.44 X10^3/uL (2.7-7.7); Neutrophil % 67.2 % (47-70); POSITIVE DIFFERENTIAL YES; Platelet Count 261 K/mm3 (150-450); RBC Distribution Width CV 13.5 % (11.6-14.6); RBC Distribution Width SD 46.1 fl (35.1-43.9); Red Blood Count 3.99 M/mm3 (4.2-5.4); White Blood Count 12.6 K/mm3 (4.4-11.0)
--- NOTE | 2022-10-08 18:26 | EX.ED.DYSGE1 ---
HPI <NABEEL Grant - Last Filed: 10/08/22 21:15> History of Present Illness Chief Complaint: Fall Narrative Narrative: Patient is a 72-year-old female with history of GERD, cholesterol, obesity, hypothyroidism, schizophrenia who presents to the emergency department for concern of infection to the left hip secondary to a hip surgery. Patient had a mechanical fall on 09/13/2022. Patient had a left hip fracture, the surgery was done here by Dr. Frances. Patient was home for 1 week after transition of care. For the last 3 to 4 days, patient is noticed some more tenderness, redness there. Patient states today the pain was worse, she was feeling generalized fatigue and she is here concerning for infection. PFSH <NABEEL Grant - Last Filed: 10/08/22 21:15> [facility] [place] Medical History (Updated 10/08/22 @ 22:[address] Tra Hamilton DO) Anxiety and depression Arthritis Cataracts, bilateral CHI (closed head injury) Chronic anemia GERD (gastroesophageal reflux disease) Hemorrhoids Hypothyroidism IBS (irritable bowel syndrome) Obesity (BMI 30.0-34.9) Osteoarthritis Parkinson disease Rheumatoid arthritis Schizophrenia Home Medications pravastatin 40 mg tablet 40 mg PO QHS CHOLESTEROL 03/22/17 [History Last Taken 09/12/22] carbidopa 25 mg-levodopa 100 mg tablet 1 tab PO TID parkinsons 09/13/22 [History Last Taken 09/12/22] citalopram 40 mg tablet 40 mg PO DAILY DEPRESSION 09/13/22 [History Last Taken 09/12/22] folic acid 1 mg tablet 2 mg PO DAILY SUPPLEMENT 09/13/22 [History Last Taken 09/12/22] hydroxychloroquine 200 mg tablet 400 mg PO DAILY RHEUMATOID ARTHRITIS 09/13/22 [History Last Taken 09/12/22] levothyroxine 75 mcg tablet 75 mcg PO DAILY THYROID 09/13/22 [History Last Taken 09/12/22] methotrexate sodium 2.5 mg tablet 17.5 mg PO WE immunosupressive 09/13/22 [History Last Taken 09/07/22] olanzapine 7.5 mg tablet 7.5 mg PO DAILY MOOD 09/13/22 [History Last Taken 09/12/22] omeprazole 40 mg capsule,delayed release 40 mg PO DAILY ACID REFLUX 09/13/22 [History Last Taken 09/12/22] potassium chloride 20 mEq tablet,extended release(part/cryst) 20 meq PO BID SUPPLEMENT 09/13/22 [History Last Taken 09/12/22] acetaminophen 500 mg tablet 1,000 mg PO Q6H PRN PRN Pain Score 1-3 #0 tabs 09/28/22 [Rx Last Taken Unknown] oxycodone 5 mg tablet 5 mg PO Q4H PRN PRN Pain Score 4-10 7 days #42 tabs 09/28/22 [Rx Last Taken Unknown] Allergy/AdvReac Type Severity Reaction Status Date / Time linaclotide [From Linzess] Allergy Mild chest Verified 09/14/22 14:13 tightness histamine phosphate Allergy Unknown Verified 09/14/22 14:13 [From Histatrol] Family History (Updated 10/08/22 @ 21:[address] Aide Jaramillo MD) Mother Heart disease Father Heart disease Brother Heart disease Surgical History (Updated 10/08/22 @ 21:[address] Adie Jaramillo MD) H/O colonoscopy with polypectomy History of hip surgery History of knee replacement History of tonsillectomy and adenoidectomy History of tubal ligation Social History household members: spouse Smoking Status: Never smoker alcohol intake: never substance use type: does not use what type of physical activity do you participate in: walking frequency: 1-2 times per week ROS <NABEEL Grant - Last Filed: 10/08/22 21:15> ROS ED ROS Narrative Constitutional: Negative for fever, chills, weight loss, weakness Eyes: Negative for vision loss, vision change, double vision ENT: Negative for any sore throat, ear pain, congestion Cardiovascular: Negative for any chest pain, tightness, palpitations Respiratory: Negative for any cough, sputum production, hemoptysis, dyspnea, dyspnea on exertion, orthopnea Gastrointestinal: Negative for any abdominal pain, nausea, vomiting, diarrhea, constipation, blood in stool, blood in vomit : Negative for any urinary frequency, dysuria, retention, blood in urine Muscle skeletal: Negative for any muscle joint pain, stiffness, myalgias, arthralgias, neck pain, back pain. Positive for left hip pain Neurological: Negative for any headache, syncope, numbness or tingling, dizziness Skin: Negative for any rashes, lumps, itching, abrasions, lacerations. Positive for redness, painful on palpation of left hip. Psychiatric: Negative for any depression, anxiety, stress, suicidal ideation, homicidal ideation Hematologic: Negative for any easy bruising, excessive bruising, easy bleeding Allergies: Negative for any eczema, hives, rash EXAM <Santana EscotoNABEEL schaffer - Last Filed: 10/08/22 21:15> Physical Exam Narrative Exam Narrative: Vital signs reviewed. Patient alert and orient x4. HEET: Head normocephalic atraumatic, TMs clear bilaterally. Posterior pharynx is clear, moist mucous membranes. Nares clear bilaterally. Neck: Supple with no lymphadenopathy or tenderness. No signs of meningismus, negative jolt sign. Cardiac: Regular rate and rhythm no murmurs gallops or rubs, equal peripheral pulses bilaterally. Respiratory: Lungs clear to auscultation bilaterally. No chest tenderness. Abdomen: Soft, nontender, nondistended. No abdominal bruit or pulsatile masses. No hepatosplenomegaly Extremities: No peripheral edema, no signs of gross trauma or deformity. Active full range of motion of all extremities. Patient's wound was well-healed, around the inferior wound on the lateral aspect of the left leg, there is induration, red area that appears cellulitic. It is more tender to the touch. There is no signs or symptoms of drainage however it is warm. Neuro: Cranial nerves II through XII intact, no focal neurological deficits. Skin: Clean dry and intact with no rash, purpura, petechiae, vesicles or pustules. Backs/flank: No CVA tenderness, no midline spinal tenderness, no deformity. Psych: Normal mood and affect. No SI, HI or acute psychosis. Const Vital Signs: 10/08/22 18:06 10/08/22 18:15 10/08/22 18:14 Temperature 97.6 F L Temperature Source Temporal Pulse Rate 96 Respiratory Rate 20 H Respiratory Effort Normal Respiratory Depth Normal Blood Pressure 173/77 H Blood Pressure Mean 109 Pulse Ox 91 96 Oxygen Delivery Method Room Air Oxygen Flow Rate (L/min) 10/08/22 20:37 10/08/22 20:43 10/08/22 20:43 Temperature Temperature Source Pulse Rate 89 Respiratory Rate 22 H Respiratory Effort Respiratory Depth Blood Pressure 132/70 H Blood Pressure Mean 90 Pulse Ox 90 87 97 Oxygen Delivery Method Room Air Room Air Nasal Cannula Oxygen Flow Rate (L/min) 2 <Dr. Tra Hamilton DO - Last Filed: 10/08/22 22:08> Physical Exam Const Vital Signs: 10/08/22 18:06 10/08/22 18:15 10/08/22 18:14 Temperature 97.6 F L Temperature Source Temporal Pulse Rate 96 Respiratory Rate 20 H Respiratory Effort Normal Respiratory Depth Normal Blood Pressure 173/77 H Blood Pressure Mean 109 Pulse Ox 91 96 Oxygen Delivery Method Room Air Oxygen Flow Rate (L/min) 10/08/22 20:37 10/08/22 20:43 10/08/22 20:43 Temperature Temperature Source Pulse Rate 89 Respiratory Rate 22 H Respiratory Effort Respiratory Depth Blood Pressure 132/70 H Blood Pressure Mean 90 Pulse Ox 90 87 97 Oxygen Delivery Method Room Air Room Air Nasal Cannula Oxygen Flow Rate (L/min) 2 MDM <NABEEL Grant - Last Filed: 10/08/22 21:15> [facility] Lab Data Labs: Laboratory Results - last 24 hr 10/08/22 10/08/22 10/08/22 18:15 18:15 18:15 WBC 12.6 H RBC 3.99 L Hgb 11.8 L Hct 37.2 MCV 93.2 MCH 29.6 MCHC 31.7 L RDW Std Deviation 46.1 H RDW Coeff of Edwar 13.5 Plt Count 261 MPV 10.8 Immature Gran % (Auto) 0.600 Neut % (Auto) 67.2 Lymph % (Auto) 15.2 L Gilliam % (Auto) 15.4 H Eos % (Auto) 1.4 Baso % (Auto) 0.2 Absolute Neuts (auto) 8.4 H Absolute Lymphs (auto) 1.91 Nucleated RBC % 0 Differential Comment SEE COMMENT Diff Path Review May foll Toxic Granulation RARE Platelet Estimate ADEQUATE RBC Morphology N CHROM Anisocytosis RARE Macrocytosis RARE ESR 40 H PT 13.7 INR 1.1 APTT 32.7 Sodium 140 Potassium 3.2 L Chloride 105 Carbon Dioxide 26.0 Anion Gap 9 BUN 7 Creatinine 0.66 Estim Creat Clear Calc 40.83 Est GFR (MDRD) Af Amer 113 Est GFR (MDRD) Non-Af 94 BUN/Creatinine Ratio 10.7 Glucose 110 H Lactic Acid Calcium 8.9 Total Bilirubin 0.40 AST 24 ALT 13 Alkaline Phosphatase 174 H C-React Prot Ext Range 41.90 H Total Protein 7.3 Albumin 3.1 L Globulin 4.2 Albumin/Globulin Ratio 0.7 L Urine Color Urine Clarity Urine pH Ur Specific [place] Urine Protein Urine Glucose (UA) Urine Ketones Urine Occult Blood Urine Nitrite Urine Bilirubin Urine Urobilinogen Ur Leukocyte Esterase Urine RBC Urine WBC Ur Squamous Epith Cells Urine Bacteria Urine Mucus 10/08/22 10/08/22 18:15 19:05 WBC RBC Hgb Hct MCV MCH MCHC RDW Std Deviation RDW Coeff of Edwar Plt Count MPV Immature Gran % (Auto) Neut % (Auto) Lymph % (Auto) Gilliam % (Auto) Eos % (Auto) Baso % (Auto) Absolute Neuts (auto) Absolute Lymphs (auto) Nucleated RBC % Differential Comment Diff Path Review Toxic Granulation Platelet Estimate RBC Morphology Anisocytosis Macrocytosis ESR PT INR APTT Sodium Potassium Chloride Carbon Dioxide Anion Gap BUN Creatinine Estim Creat Clear Calc Est GFR (MDRD) Af Amer Est GFR (MDRD) Non-Af BUN/Creatinine Ratio Glucose Lactic Acid 1.6 Calcium Total Bilirubin AST ALT Alkaline Phosphatase C-React Prot Ext Range Total Protein Albumin Globulin Albumin/Globulin Ratio Urine Color Yellow Urine Clarity Sl. Cloudy Urine pH 7.0 Ur Specific [place] 1.010 Urine Protein 15 H Urine Glucose (UA) Normal Urine Ketones Negative Urine Occult Blood 10 H Urine Nitrite Positive H Urine Bilirubin Negative Urine Urobilinogen Normal Ur Leukocyte Esterase 100 H Urine RBC 0 SEEN Urine WBC 10-25 SEEN Ur Squamous Epith Cells 0 SEEN Urine Bacteria 1+ Urine Mucus 0 SEEN Radiography Diagnostic Testing: Clinical Impression(s) from Imaging Studies Lower Extremity CT 10/08/22 18:16 IMPRESSION: 1. 4 cm collection along the lateral left soft tissues, adjacent to the inferior most femoral neck screw. This could represent hematoma although abscess should also be considered based on history and adjacent subcutaneous edema/stranding. 2. Alteration in appearance of femoral neck fixation screw (most superior) now traversing through the femoral neck cortex and impacting/deforming the acetabulum. 3. Heterogeneous sclerosis of the left femoral neck suggesting possibility of AVN. 4. Interval surgical fixation of left IT fracture. Electronically Signed: Evaristo Aguilar ([place]) at 20:14 EDT , Treatment and Re-Evaluation :: Patient appears alert and oriented, patient is in no respiratory distress. Patient presents emerged part for concern of redness, increased pain, concern for infection to the surgical site from a hip surgery 1 month ago. Patient did receive full septic work-up with 2 sets of blood cultures. Laboratory values show a leukocytosis white blood count 12.6, slight anemia with hemoglobin 11.8. Sed rate was 40, CRP was 41.9. Chemistries were unremarkable. Patient did receive a CT scan of the left lower extremity, this did show a 4 cm collection along the lateral left soft tissues, adjacent to the inferior most femoral neck screw. This could represent Faraz, abscess formation. Alteration in appearance of femoral neck fixation screw most appear now transversing through the femoral neck cortex and impacting/deformity of the acetabulum. Interval surgical fixation of the left IT fracture. I did reach out to on-call orthopedic, Dr. Frances was on however I spoke with Dr. Stevens, he said he will look at the scan and call back. Dr. Stevens did call back, he stated that since Dr. Frances is out of town, there is no one comfortable to do this hip revision. Patient will need to be transferred. Patient did receive IV vancomycin, Zosyn for the abscess in the left hip, as well as Rocephin for the UTI. <Dr. Tra Hamilton, DO - Last Filed: 10/08/22 22:08> [facility] Narrative Medical decision making narrative: Attending note: Patient seen and evaluated with rebar fabricator. I perform my own [id number] evaluation. I agree with the plan of work-up. Patient 24 days postop left hip fracture repair with intramedullary nail from a fall. This was performed by Dr. Frances. Patient discharged from rehab a week ago, states noting some increasing redness that was seen by her daughter today's worsen. No fevers or chills. No history of diabetes. She reports has been ambulating with a walker states she feels burning sensations every time she takes a step. This is in her hip. Exam there is induration redness lateral mid thigh from distal incision there is no active drainage. Surrounding erythema that was outlined. Sepsis labs were ordered, count 12.6 creatinine 0.66, ED are 40, CRP 41 potassium 3.2 which orally replaced. She had a urine that was positive for infection clinically recent mild dysuria. Culture of urine sent. CT scan left lower extremity due to the cellulitis to rule out abscess, results reviewed and per radiology worsened meters fluid collection hematoma however likely abscess with her history. Also noted concerns for migrating proximal hardware that now impacted into the acetabulum. With orthopedist special education classroom aide Dr. Stevens, who discussed with his partners, Dr. Frances is out of town, available partners including himself stating this will need to hold new revision and patient will require transfer to a specialty center. Discussed the recommendations by her orthopedic team, will work on transfer to a center capable. Patient was started on Zosyn and vancomycin for abscess coverage. This will also cover for UTI. Lab Data Attestation: I reviewed the patient's lab results. Labs: Laboratory Results - last 24 hr 10/08/22 10/08/22 10/08/22 18:15 18:15 18:15 WBC 12.6 H RBC 3.99 L Hgb 11.8 L Hct 37.2 MCV 93.2 MCH 29.6 MCHC 31.7 L RDW Std Deviation 46.1 H RDW Coeff of Edwar 13.5 Plt Count 261 MPV 10.8 Immature Gran % (Auto) 0.600 Neut % (Auto) 67.2 Lymph % (Auto) 15.2 L Gilliam % (Auto) 15.4 H Eos % (Auto) 1.4 Baso % (Auto) 0.2 Absolute Neuts (auto) 8.4 H Absolute Lymphs (auto) 1.91 Nucleated RBC % 0 Differential Comment SEE COMMENT Diff Path Review May foll Toxic Granulation RARE Platelet Estimate ADEQUATE RBC Morphology N CHROM Anisocytosis RARE Macrocytosis RARE ESR 40 H PT 13.7 INR 1.1 APTT 32.7 Sodium 140 Potassium 3.2 L Chloride 105 Carbon Dioxide 26.0 Anion Gap 9 BUN 7 Creatinine 0.66 Estim Creat Clear Calc 40.83 Est GFR (MDRD) Af Amer 113 Est GFR (MDRD) Non-Af 94 BUN/Creatinine Ratio 10.7 Glucose 110 H Lactic Acid Calcium 8.9 Total Bilirubin 0.40 AST 24 ALT 13 Alkaline Phosphatase 174 H C-React Prot Ext Range 41.90 H Total Protein 7.3 Albumin 3.1 L Globulin 4.2 Albumin/Globulin Ratio 0.7 L Urine Color Urine Clarity Urine pH Ur Specific [place] Urine Protein Urine Glucose (UA) Urine Ketones Urine Occult Blood Urine Nitrite Urine Bilirubin Urine Urobilinogen Ur Leukocyte Esterase Urine RBC Urine WBC Ur Squamous Epith Cells Urine Bacteria Urine Mucus 10/08/22 10/08/22 18:15 19:05 WBC RBC Hgb Hct MCV MCH MCHC RDW Std Deviation RDW Coeff of Edwar Plt Count MPV Immature Gran % (Auto) Neut % (Auto) Lymph % (Auto) Gilliam % (Auto) Eos % (Auto) Baso % (Auto) Absolute Neuts (auto) Absolute Lymphs (auto) Nucleated RBC % Differential Comment Diff Path Review Toxic Granulation Platelet Estimate RBC Morphology Anisocytosis Macrocytosis ESR PT INR APTT Sodium Potassium Chloride Carbon Dioxide Anion Gap BUN Creatinine Estim Creat Clear Calc Est GFR (MDRD) Af Amer Est GFR (MDRD) Non-Af BUN/Creatinine Ratio Glucose Lactic Acid 1.6 Calcium Total Bilirubin AST ALT Alkaline Phosphatase C-React Prot Ext Range Total Protein Albumin Globulin Albumin/Globulin Ratio Urine Color Yellow Urine Clarity Sl. Cloudy Urine pH 7.0 Ur Specific [place] 1.010 Urine Protein 15 H Urine Glucose (UA) Normal Urine Ketones Negative Urine Occult Blood 10 H Urine Nitrite Positive H Urine Bilirubin Negative Urine Urobilinogen Normal Ur Leukocyte Esterase 100 H Urine RBC 0 SEEN Urine WBC 10-25 SEEN Ur Squamous Epith Cells 0 SEEN Urine Bacteria 1+ Urine Mucus 0 SEEN Radiography Diagnostic Testing: Clinical Impression(s) from Imaging Studies Lower Extremity CT 10/08/22 18:16 IMPRESSION: 1. 4 cm collection along the lateral left soft tissues, adjacent to the inferior most femoral neck screw. This could represent hematoma although abscess should also be considered based on history and adjacent subcutaneous edema/stranding. 2. Alteration in appearance of femoral neck fixation screw (most superior) now traversing through the femoral neck cortex and impacting/deforming the acetabulum. 3. Heterogeneous sclerosis of the left femoral neck suggesting possibility of AVN. 4. Interval surgical fixation of left IT fracture. Electronically Signed: Evaristo Aguilar ([place]), at 20:14 EDT , <Dr. Tra Hamilton, DO - Last Filed: 10/08/22 22:08> Critical Care Time Critical Care Time: Yes Critical care time (excluding procedures): 30-74 minutes, Discussing w/Patient &/or Family/Aquatic Physiotherapist, Discussing w/Consultants, Arranging Admission or Transfer and Performing Direct Patient Care at Bedside Discharge Plan Triage Chief Complaint: Fall ED Midlevel Provider: Santana Isaac ED Provider: Tra Hamilton Dx/Rx/DC Orders Clinical Impression: Postoperative wound infection of left hip, Abscess, UTI (urinary tract infection), Hardware failure, Acute hypokalemia Prescriptions: No Action pravastatin 40 MG tablet 40 mg PO QHS citalopram 40 mg tablet 40 mg PO DAILY olanzapine 7.5 mg tablet 7.5 mg PO DAILY potassium chloride 20 mEq tablet,ER particles/crystals 20 meq PO BID levothyroxine 75 mcg tablet 75 mcg PO DAILY methotrexate sodium 2.5 mg tablet 17.5 mg PO WE folic acid 1 mg tablet 2 mg PO DAILY hydroxychloroquine 200 mg tablet 400 mg PO DAILY carbidopa-levodopa 25-100 mg tablet 1 tab PO TID omeprazole 40 mg capsule,delayed release(DR/EC) 40 mg PO DAILY acetaminophen 500 mg Tablet 1,000 mg PO Q6H PRN PRN (Reason: Pain Score 1-3) Qty: 0 0RF oxycodone 5 mg Tablet 5 mg PO Q4H PRN PRN (Reason: Pain Score 4-10) 7 Days Qty: 42 0RF Primary Care Provider: Raji Herrmann Chi Referrals: Raji Herrmann Chi, MD [Primary Care Provider] -
[2022-10-08 18:40] LABS: Differential Indicated SCAN CRITERIA MET
[2022-10-08 18:41] LABS: Erythrocyte Sedimentation Rate 40 mm/hr (0-30)
[2022-10-08 18:42] LABS: ALB/GLOB Ratio 0.7 RATIO (0.9-2.4); AST(SGOT) 24 U/L (15-37); Alanine Aminotransfer ALT/SGPT 13 U/L (13-56); Albumin, Serum 3.1 g/dL (3.2-5.0); Alkaline Phosphatase 174 U/L (45-117); Anion Gap 9 (5-15); BUN 7 mg/dL (7-18); BUN/Creat Ratio 10.7 RATIO (10-20); Calcium,Total 8.9 mg/dL (8.5-10.1); Chloride 105 mmol/L (98-107); Creatinine, Serum 0.66 mg/dL (0.55-1.02); EST Glomerular Filtration Rate 94 mL/min (>60); Est Glom Filt Rate - Afr Amer 113 mL/min (>60); Estimated Creatinine Clearance 40.83 ml/min; Globulin 4.2 g/dL (2.2-4.2); Glucose 110 mg/dL (74-106); International Normalized Ratio 1.1; Potassium 3.2 mmol/L (3.5-5.1); Protein, Total 7.3 g/dL (6.4-8.2); Prothrombin Time (Protime)PT. 13.7 SECONDS (11.7-14.9); Sodium Level 140 mmol/L (136-145)
[2022-10-08 18:43] LABS: Partial Thromboplast Time 32.7 Seconds (24.1-36.2)
[2022-10-08 18:54] LABS: Anisocytosis RARE; Macrocytosis RARE; Platelet Estimate ADEQUATE (ADEQ); Red Cell Morphology N CHROM NORMAL (NORM C&C); Toxic Granulation RARE
[2022-10-08 19:02] LABS: Lactic Acid 1.6 mmol/L (0.4-1.9)
[2022-10-08 19:10] LABS: Mucous, Urine 0 SEEN /hpf (<or=2+); Red Blood Cells-Urine 0 SEEN /hpf (0-5); Squamous Epithelial Cells - UA 0 SEEN /hpf (5-10)
[2022-10-08 19:16] LABS: Color, Urine Yellow (Yellow); Glucose, Dipstick Normal (Normal); Ketone-Dipstick Negative (Negative); Leukocyte Esterase-Dipstick 100 /ul (Negative); Nitrite-Dipstick Positive (Negative); Occult Blood-Urine 10 /ul (Negative); Protein-Dipstick 15 mg/dl (Negative); Urine Bilirubin Dipstick Negative (Negative); Urine Clarity Sl. Cloudy (Clear); Urine Urobilinogen Normal (Normal)
[2022-10-08 19:22] LABS: Bacteria 1+ /hpf (None Seen); White Blood Cells 10-25 SEEN /hpf (0-5)
[2022-10-08] MEDS: Morphine 4 MG/ML Syringe IV (19:22)
[2022-10-08] MEDS: Ondansetron 4 MG/2 ML Vial IV (19:22)
[2022-10-08 20:37] VITALS: BP 132/70; PULSE 89; RESP 22; O2SAT 90
[2022-10-08 20:43] VITALS: O2SAT 87; O2SAT 97
--- NOTE | 2022-10-08 21:53 | ED.RN ---
[facility]vin vel[facility] called back they are currently not able to accept patient at this time
[2022-10-08 22:00] VITALS: BP 124/69; PULSE 94; RESP 16; O2SAT 93
[2022-10-08] MEDS: Potassium Chloride Oral Tablet 20 MEQ 40 MEQ PO (22:01)
[2022-10-09] MEDS: Morphine 4 MG/ML Syringe IV (00:21)
[2022-10-09 03:30] VITALS: BP 128/75; PULSE 89; RESP 16; TEMP 36.2; O2SAT 95
[2022-10-09 07:14] VITALS: BP 131/69; PULSE 87; RESP 16; TEMP 36.2; O2SAT 96
--- NOTE | 2022-10-09 07:17 | ED.RN ---
CALLED AND INFORMED HIM PT IS NOW HEADED TO [facility]
[2022-10-10 09:47] LABS: Pathologist Review Reviewed
== END 2022-10-09 07:18 | disposition short-term general hospital (02) ==
PROVIDERS: Nurse Practitioner; Emergency Provider Emergency Medicine; PCP Family Medicine Geriatric Medicine; Visit Provider Emergency Medicine
DX: L02.416 Cutaneous abscess of left lower limb (principal); G20 Parkinson's disease; F20.9 Schizophrenia, unspecified; M06.9 Rheumatoid arthritis, unspecified; N39.0 Urinary tract infection, site not specified; E87.6 Hypokalemia; T81.49XA Infection following a procedure, other surgical site, initial encounter; T85.698A Other mechanical complication of other specified internal prosthetic devices, implants and grafts, initial encounter; F41.8 Other specified anxiety disorders; Z79.899 Other long term (current) drug therapy; E03.9 Hypothyroidism, unspecified
CPT/HCPCS: 73700; 80053; 81001; 83605; 85025; 85610; 85652; 85730; 86140; 87040; 87077; 87086; 87088; 87186; 96365; 96366; 96367; 96375; 99285; J7040; J7050; P9612; A4216; J2405

== ENCOUNTER 2022-11-19 20:30 | Emergency (ER) | payer MEDICARE, SELFPAY ==
[2022-11-19 20:32] VITALS: BP 106/54; PULSE 86; RESP 18; TEMP 36.6; O2SAT 100; BMI 30.7
--- NOTE | 2022-11-19 20:59 | EX.ED.DYSGE1 ---
HPI History of Present Illness Chief Complaint: Wound Check Detail of Chief Complaint: Bleeding around tunneled dialysis catheter Informant: patient Narrative Narrative: Patient presents from [facility] secondary to bleeding around her dialysis catheter. Patient has had nausea and vomiting for the past month or so. Tonight she was vomiting and staff at [facility] noted bleeding around her right upper chest tunneled dialysis catheter. She had dialysis this morning with no difficulty. Bleeding is controlled at this time. [facility] Medical History Anxiety and depression Arthritis Cataracts, bilateral CHI (closed head injury) Chronic anemia GERD (gastroesophageal reflux disease) Hemorrhoids Hypothyroidism IBS (irritable bowel syndrome) Obesity (BMI 30.0-34.9) Osteoarthritis Parkinson disease Rheumatoid arthritis Schizophrenia Home Medications pravastatin 40 mg tablet 40 mg PO QHS CHOLESTEROL 03/22/17 [History Last Taken 09/12/22] carbidopa 25 mg-levodopa 100 mg tablet 1 tab PO TID parkinsons 09/13/22 [History Last Taken 09/12/22] citalopram 40 mg tablet 40 mg PO DAILY DEPRESSION 09/13/22 [History Last Taken 09/12/22] folic acid 1 mg tablet 2 mg PO DAILY SUPPLEMENT 09/13/22 [History Last Taken 09/12/22] hydroxychloroquine 200 mg tablet 400 mg PO DAILY RHEUMATOID ARTHRITIS 09/13/22 [History Last Taken 09/12/22] levothyroxine 75 mcg tablet 75 mcg PO DAILY THYROID 09/13/22 [History Last Taken 09/12/22] methotrexate sodium 2.5 mg tablet 17.5 mg PO WE immunosupressive 09/13/22 [History Last Taken 09/07/22] olanzapine 7.5 mg tablet 7.5 mg PO DAILY MOOD 09/13/22 [History Last Taken 09/12/22] omeprazole 40 mg capsule,delayed release 40 mg PO DAILY ACID REFLUX 09/13/22 [History Last Taken 09/12/22] potassium chloride 20 mEq tablet,extended release(part/cryst) 20 meq PO BID SUPPLEMENT 09/13/22 [History Last Taken 09/12/22] acetaminophen 500 mg tablet 1,000 mg (2 x 500 mg) PO Q6H PRN PRN Pain Score 1-3 #0 tabs 09/28/22 [Rx Last Taken Unknown] oxycodone 5 mg tablet 5 mg PO Q4H PRN PRN Pain Score 4-10 7 days #42 tabs 09/28/22 [Rx Last Taken Unknown] metoclopramide HCl 10 mg tablet (Reglan) 10 mg PO BID PRN PRN nausea and vomiting #14 tabs 11/19/22 [Rx Last Taken Unknown] Allergy/AdvReac Type Severity Reaction Status Date / Time linaclotide [From Linzess] Allergy Mild chest Verified 09/14/22 14:13 tightness histamine phosphate Allergy Unknown Verified 09/14/22 14:13 [From Histatrol] Family History Mother Heart disease Father Heart disease Brother Heart disease Surgical History H/O colonoscopy with polypectomy History of hip surgery History of knee replacement History of tonsillectomy and adenoidectomy History of tubal ligation Social History household members: spouse Smoking Status: Never smoker alcohol intake: never substance use type: does not use what type of physical activity do you participate in: walking frequency: 1-2 times per week ROS ROS ED Constitutional Constitutional ED: Denies chills or fever(s) Eyes Eyes: Denies discharge from eye(s) ENT ENT ED: Denies discharge from eye(s), rhinorrhea or sore throat Cardiovascular Cardiovascular: Denies chest pain or palpitations Respiratory/Chest Respiratory/Chest: Denies cough or dyspnea Gastrointestinal Gastrointestinal: Reports nausea and vomiting; Denies abdominal pain or diarrhea Musculoskeletal Musculoskeletal: Denies back pain or extremity pain Integumentary Reports other Details: Bleeding around dialysis catheter ; Denies Abrasions or rash Neurologic Neurologic: Reports weakness; Denies headache(s) Psychiatric Psychiatric: Denies anxiety or depression Allergic/Immunologic Allergic/Immunologic ED: Denies lip swelling or urticaria EXAM Physical Exam Const Vital Signs: 11/19/22 20:32 Temperature 97.8 F Temperature Source Temporal Pulse Rate 86 Respiratory Rate 18 Blood Pressure 106/54 L Blood Pressure Mean 71 Pulse Ox 100 Oxygen Delivery Method Nasal Cannula Oxygen Flow Rate (L/min) 3 Positive well nourished and well developed General Appearance ED: well developed HEENT Reports moist mucous membranes Eyes EOMs intact bilaterally Chest Wall Chest Narrative: Patient has a tunneled dialysis catheter in the right upper chest. There is a small amount of dried blood noted at the port insertion site as well as around the suture site. There is no active bleeding at this time. There is no blood noted in the tubing. Resp normal respiratory effort and clear to auscultation bilaterally Cardio regular rate and regular rhythm GI non-tender Palpation: soft Neuro oriented x3 and no sensory deficits noted Psych mental status grossly normal MDM MDM MDM Narrative Medical decision making narrative: Portable chest x-ray obtained to evaluate the line is still in good position. Labwork obtained to evaluate for leukocytosis, anemia, and electrolyte derangement. Urinalysis obtained to evaluate for infection/hematuria. Patient given Reglan to help with nausea. Lab Data Attestation: I reviewed the patient's lab results. Labs: Laboratory Results - last 24 hr 11/19/22 11/19/22 21:40 22:38 WBC 14.9 H RBC 2.90 L Hgb 8.5 L Hct 26.6 L MCV 91.7 MCH 29.3 MCHC 32.0 RDW Std Deviation 62.4 H RDW Coeff of Edwar 18.8 H Plt Count 62 L MPV 12.5 H Immature Gran % (Auto) 0.900 Neut % (Auto) 52.5 Lymph % (Auto) 21.0 [place] % (Auto) 25.3 H Eos % (Auto) 0.2 Baso % (Auto) 0.1 Absolute Neuts (auto) 7.8 H Absolute Lymphs (auto) 3.14 Nucleated RBC % 0 Differential Comment SEE COMMENT Diff Path Review May foll Platelet Estimate MOD DEC RBC Morphology N CHROM Anisocytosis RARE Macrocytosis RARE Sodium 136 Potassium 3.6 Chloride 102 Carbon Dioxide 31.0 Anion Gap 3 L BUN 11 Creatinine 1.09 H Estim Creat Clear Calc 37.46 Est GFR (MDRD) Af Amer 63 Est GFR (MDRD) Non-Af 52 L BUN/Creatinine Ratio 10.1 Glucose 81 Calcium 7.6 L Urine Color Yellow Urine Clarity Clear Urine pH 8.0 Ur Specific [place] 1.010 Urine Protein 15 H Urine Glucose (UA) Normal Urine Ketones 5 H Urine Occult Blood Negative Urine Nitrite Negative Urine Bilirubin Negative Urine Urobilinogen Normal Ur Leukocyte Esterase 25 H Urine RBC 0 SEEN Urine WBC 5-10 SEEN Ur Squamous Epith Cells 0 SEEN Urine Bacteria RARE Hyaline Casts 0-5 SEEN Urine Mucus 0 SEEN Radiography Diagnostic Testing: Clinical Impression(s) from Imaging Studies Chest X-Ray 11/19/22 21:11 IMPRESSION: 1. Interval placement of tunneled right internal jugular dialysis catheter with tip of the catheter overlying the junction of the right atrium and superior vena cava with no pneumothorax. 2. Interval placement right upper extremity PICC with tip of the catheter overlying the superior vena cava. 3. No active disease. Electronically Signed: Ruperto Wyatt MD at 21:56 EDT , Treatment and Re-Evaluation :: CBC does reveal slight elevation of white count of 14.9. No left shift is appreciated. Hemoglobin is 8.5 which is consistent with her prior values. Her BUN is 11 and creatinine is 1.09. She did have dialysis earlier today. Urinalysis reveals 5-10 white cells with rare bacteria. No nitrites. Patient has no symptoms of UTI. Portable chest x-ray per my interpretation reveals both the dialysis catheter and PICC line to be in good position. No acute abnormalities noted. Radiology interpretation is reviewed and agrees. On repeat evaluation patient does have some improvement in her nausea. It appears that she is only on Zofran at this time. I will write her prescription for Reglan as well. She will be discharged back to [facility] living with family. Discharge Plan Triage Chief Complaint: Wound Check ED Provider: Cally Durham Dx/Rx/DC Orders Clinical Impression: Hemorrhage from dialysis catheter, Vomiting Instructions: ED Vomiting (Adult), ED Wound Check (No Infection) Prescriptions: New metoclopramide HCl [Reglan] 10 mg tablet 10 mg PO BID PRN PRN (Reason: nausea and vomiting) Qty: 14 0RF No Action pravastatin 40 MG tablet 40 mg PO QHS citalopram 40 mg tablet 40 mg PO DAILY olanzapine 7.5 mg tablet 7.5 mg PO DAILY potassium chloride 20 mEq tablet,ER particles/crystals 20 meq PO BID levothyroxine 75 mcg tablet 75 mcg PO DAILY methotrexate sodium 2.5 mg tablet 17.5 mg PO WE folic acid 1 mg tablet 2 mg PO DAILY hydroxychloroquine 200 mg tablet 400 mg PO DAILY carbidopa-levodopa 25-100 mg tablet 1 tab PO TID omeprazole 40 mg capsule,delayed release(DR/EC) 40 mg PO DAILY acetaminophen 500 mg Tablet 1,000 mg PO Q6H PRN PRN (Reason: Pain Score 1-3) Qty: 0 0RF oxycodone 5 mg Tablet 5 mg PO Q4H PRN PRN (Reason: Pain Score 4-10) 7 Days Qty: 42 0RF Primary Care Provider: Raji Herrmann Chi Referrals: Cleo Andrew MD [Med Staff - Active Staff] - 1 Week if not improving Raji Herrmann Chi, MD [Primary Care Provider] - Disposition Disposition: Home, Self Care
--- NOTE | 2022-11-19 21:11 | RAD_ITS ---
STUDY: X-RAY CHEST REASON FOR EXAM: Female, 72 years old. dialysis port TECHNIQUE: Single AP portable view of the chest. COMPARISON: 09/16/2022 FINDINGS: Interval placement of tunneled right internal jugular dialysis catheter with tip of the catheter overlying the junction of the right atrium and spur vena cava with no pneumothorax. Interval placement right upper extremity PICC with tip of the catheter overlying the superior vena cava. The lungs are clear and expanded. There is no demonstrated pleural abnormality. Normal size heart. Normal mediastinum and ankita. Normal visualized pulmonary arteries. Normal visualized aortic arch and descending thoracic aorta. Normal visualized thoracic spine. Normal visualized ribs, clavicles, and shoulders. There is no demonstrated abnormality of the visualized soft tissue structures of the upper abdomen. RAD/Chest 1 View (Portable) IMPRESSION: 1. Interval placement of tunneled right internal jugular dialysis catheter with tip of the catheter overlying the junction of the right atrium and superior vena cava with no pneumothorax. 2. Interval placement right upper extremity PICC with tip of the catheter overlying the superior vena cava. 3. No active disease. Electronically Signed: Ruperto Wyatt MD at 21:56 EDT ,
[2022-11-19] MEDS: Metoclopramide 10 MG/2 ML Vial 5 MG IV (21:36)
--- NOTE | 2022-11-19 21:44 | ED.RN ---
Pt daughter, Vaishnavi, raised concerns about pt living situation @ [facility]. States insurance will not cover stay and pt will be placed back into home. Pt is bedbound and uses a moise lift for assistance. Daughter states pt lives with who can help take care of her but cannot fully care for her. Also states the four siblings can help as well, but is nervous about properly caring for her. This RN placed social work consult for possible home health and more information on resources. MD aware as well.
[2022-11-19 21:47] LABS: Absolute Lymphocyte Count 3.14 X10^3/uL (0.83-4.51); Absolute Neutrophil Count 7.8 X10^3/uL (2.0-7.7); Basophil# 0.02 X10^3/uL; Basophil% 0.1 % (0-1); Eosinophil# 0.03 X10^3/uL; Eosinophils% 0.2 % (0-5); Hematocrit 26.6 % (37-47); Hemoglobin 8.5 g/dL (12.0-15.0); Lymphocyte # 3.14 X10^3/ul (0.83-4.51); Mean Corpuscular Hgb 29.3 pg (27.0-32.0); Mean Corpuscular Volume 91.7 fL (81-99); Mean Platelet Vol. 12.5 fl (6.2-12.0); Monocyte# 3.78 X10^3/uL; Monocyte% 25.3 % (0-10); NRBC Flagged by Analyzer 0 % (0-5); Neutrophil # 7.83 X10^3/uL (2.7-7.7); Neutrophil % 52.5 % (47-70); POSITIVE COUNT YES; POSITIVE DIFFERENTIAL YES; Platelet Count 62 K/mm3 (150-450); RBC Distribution Width CV 18.8 % (11.6-14.6); RBC Distribution Width SD 62.4 fl (35.1-43.9); White Blood Count 14.9 K/mm3 (4.4-11.0)
[2022-11-19 21:50] LABS: Differential Indicated SCAN CRITERIA MET
[2022-11-19 21:58] LABS: Anion Gap 3 (5-15); BUN 11 mg/dL (7-18); BUN/Creat Ratio 10.1 RATIO (10-20); Calcium,Total 7.6 mg/dL (8.5-10.1); Chloride 102 mmol/L (98-107); Creatinine, Serum 1.09 mg/dL (0.55-1.02); EST Glomerular Filtration Rate 52 mL/min (>60); Est Glom Filt Rate - Afr Amer 63 mL/min (>60); Estimated Creatinine Clearance 37.46 ml/min; Glucose 81 mg/dL (74-106); Potassium 3.6 mmol/L (3.5-5.1); Sodium Level 136 mmol/L (136-145)
[2022-11-19 22:23] LABS: Anisocytosis RARE; Macrocytosis RARE; Platelet Estimate MOD DEC (ADEQ); Red Cell Morphology N CHROM NORMAL (NORM C&C)
[2022-11-19 22:41] LABS: Mucous, Urine 0 SEEN /hpf (<or=2+); Red Blood Cells-Urine 0 SEEN /hpf (0-5); Squamous Epithelial Cells - UA 0 SEEN /hpf (5-10)
[2022-11-19 22:45] LABS: Color, Urine Yellow (Yellow); Glucose, Dipstick Normal (Normal); Ketone-Dipstick 5 mg/dl (Negative); Leukocyte Esterase-Dipstick 25 /ul (Negative); Nitrite-Dipstick Negative (Negative); Occult Blood-Urine Negative /ul (Negative); Protein-Dipstick 15 mg/dl (Negative); Urine Bilirubin Dipstick Negative (Negative); Urine Clarity Clear (Clear); Urine Urobilinogen Normal (Normal)
[2022-11-19 22:52] LABS: Bacteria RARE /hpf (None Seen); White Blood Cells 5-10 SEEN /hpf (0-5)
[2022-11-19 22:53] LABS: Hyaline Cast 0-5 SEEN /lpf (0-5)
[2022-11-21 10:09] LABS: Pathologist Review Reviewed
== END 2022-11-20 02:48 | disposition home or self-care (01) ==
PROVIDERS: Emergency Provider Emergency Medicine; PCP Family Medicine Geriatric Medicine; Visit Provider Emergency Medicine
DX: T82.838A Hemorrhage due to vascular prosthetic devices, implants and grafts, initial encounter (principal); G20 Parkinson's disease; F20.9 Schizophrenia, unspecified; M06.9 Rheumatoid arthritis, unspecified; R11.10 Vomiting, unspecified; Z79.899 Other long term (current) drug therapy; E03.9 Hypothyroidism, unspecified; K21.9 Gastro-esophageal reflux disease without esophagitis; Z96.659 Presence of unspecified artificial knee joint
CPT/HCPCS: 71045; 80048; 81001; 85025; 96374; 99285; A4216

== ENCOUNTER 2022-11-24 12:56 | Inpatient (IN) | payer MEDICARE, SELFPAY ==
[2022-11-24] VITALS (10 sets, daily range): BP systolic 87–129; BP diastolic 59–74; PULSE 73–113; RESP 16–18; TEMP 35.9–36.6; O2SAT 94–99; BMI 29.3
--- NOTE | 2022-11-24 13:59 | EDS_ITS ---
HPI <LUZ Camilo - Last Filed: 11/24/22 20:10> History of Present Illness Chief Complaint: Abn Labs Narrative Narrative: Patient presenting today due to abnormal labs that showed leukocytosis that was obtained by her infectious disease doctor a few days ago. Patient reports that she had a left hip fracture that was repaired by Dr. Frances 09/14/22. On 10/08/2022 she reported to the emergency department due to concerns for an infection in her left hip. Found to have an abscess in that site and was transferred to [facility] where they placed a antibiotic spacer and she was ultimately discharged to [facility]. She is unsure what antibiotics that she has been on but she reports that over the past month she has had generalized abdominal pain, nausea, and vomiting. She reports that every time she eats she vomits. She reports that the antibiotic she was placed on caused her to go into kidney failure. She is now on hemodialysis. She reports that she is having several bouts of [id number] loose stool daily for the past month. ON LICENSE OF [facility] <LUZ Camilo - Last Filed: 11/24/22 20:10> ON LICENSE OF [facility] Medical History Anxiety and depression Arthritis Cataracts, bilateral CHI (closed head injury) Chronic anemia GERD (gastroesophageal reflux disease) Hemorrhoids Hypothyroidism IBS (irritable bowel syndrome) Obesity (BMI 30.0-34.9) Osteoarthritis Parkinson disease Rheumatoid arthritis Schizophrenia Home Medications pravastatin 40 mg tablet 40 mg PO QHS CHOLESTEROL 03/22/17 [History Last Taken 09/12/22] carbidopa 25 mg-levodopa 100 mg tablet 1 tab PO TID parkinsons 09/13/22 [History Last Taken 09/12/22] citalopram 40 mg tablet 40 mg PO DAILY DEPRESSION 09/13/22 [History Last Taken 09/12/22] folic acid 1 mg tablet 2 mg PO DAILY SUPPLEMENT 09/13/22 [History Last Taken 09/12/22] hydroxychloroquine 200 mg tablet 400 mg PO DAILY RHEUMATOID ARTHRITIS 09/13/22 [History Last Taken 09/12/22] levothyroxine 75 mcg tablet 75 mcg PO DAILY THYROID 09/13/22 [History Last Taken 09/12/22] methotrexate sodium 2.5 mg tablet 17.5 mg PO WE immunosupressive 09/13/22 [History Last Taken 09/07/22] olanzapine 7.5 mg tablet 7.5 mg PO DAILY MOOD 09/13/22 [History Last Taken 09/12/22] omeprazole 40 mg capsule,delayed release 40 mg PO DAILY ACID REFLUX 09/13/22 [History Last Taken 09/12/22] potassium chloride 20 mEq tablet,extended release(part/cryst) 20 meq PO BID SUPPLEMENT 09/13/22 [History Last Taken 09/12/22] acetaminophen 500 mg tablet 1,000 mg (2 x 500 mg) PO Q6H PRN PRN Pain Score 1-3 #0 tabs 09/28/22 [Rx Last Taken Unknown] oxycodone 5 mg tablet 5 mg PO Q4H PRN PRN Pain Score 4-10 7 days #42 tabs 09/28/22 [Rx Last Taken Unknown] metoclopramide HCl 10 mg tablet (Reglan) 10 mg PO BID PRN PRN nausea and vomiting #14 tabs 11/19/22 [Rx Last Taken Unknown] Allergy/AdvReac Type Severity Reaction Status Date / Time linaclotide [From Linzess] Allergy Mild chest Verified 09/14/22 14:13 tightness histamine phosphate Allergy Unknown Verified 09/14/22 14:13 [From Histatrol] Family History Mother Heart disease Father Heart disease Brother Heart disease Surgical History H/O colonoscopy with polypectomy History of hip surgery History of knee replacement History of tonsillectomy and adenoidectomy History of tubal ligation Social History household members: spouse Smoking Status: Never smoker alcohol intake: never substance use type: does not use what type of physical activity do you participate in: walking frequency: 1-2 times per week ROS <LUZ Camilo - Last Filed: 11/24/22 20:10> ROS ED Constitutional Constitutional ED: Denies chills or fever(s) Cardiovascular Cardiovascular: Denies chest pain Respiratory/Chest Respiratory/Chest: Denies cough or dyspnea Gastrointestinal Gastrointestinal: Reports abdominal pain, diarrhea, nausea and vomiting; Denies constipation Genitourinary Genitourinary ED: Denies dysuria, hematuria or urinary urgency Musculoskeletal Musculoskeletal: Denies arthralgias or myalgias Integumentary Denies abscess, Abrasions or rash Neurologic Neurologic: Denies paresthesias or weakness EXAM <LUZ Camilo - Last Filed: 11/24/22 20:10> Physical Exam Const Vital Signs: 11/24/22 12:57 11/24/22 12:59 11/24/22 13:56 Temperature 96.6 F L Temperature Source Temporal Pulse Rate 113 H Respiratory Rate 18 16 Respiratory Effort Normal Non-Labored Respiratory Pattern Normal Blood Pressure 87/61 L Blood Pressure Mean 69 Pulse Ox 94 Oxygen Delivery Method Nasal Cannula Oxygen Flow Rate (L/min) 3 11/24/22 14:00 11/24/22 15:00 11/24/22 15:56 Temperature Temperature Source Pulse Rate Respiratory Rate 16 16 Respiratory Effort Respiratory Pattern Blood Pressure 119/71 Blood Pressure Mean 87 Pulse Ox Oxygen Delivery Method Oxygen Flow Rate (L/min) 11/24/22 16:00 11/24/22 17:00 11/24/22 18:00 Temperature Temperature Source Pulse Rate Respiratory Rate 16 16 Respiratory Effort Respiratory Pattern Blood Pressure 129/74 H Blood Pressure Mean 92 Pulse Ox Oxygen Delivery Method Oxygen Flow Rate (L/min) Positive well nourished, well developed and no apparent distress General Appearance ED: well developed HEENT Reports normocephalic and head/scalp atraumatic Mouth ED: Yes moist mucous membranes normal Eyes PERRL and EOMs intact bilaterally Neck full ROM and supple Chest Wall inspection of chest normal Resp normal respiratory effort and clear to auscultation bilaterally Cardio regular rate and regular rhythm GI soft to palpation, non-distended and no masses GI Narrative: Mild right upper quadrant tenderness to palpation without any rigidity or guarding. Narrative: Multiple small stage II dime sized pressure ulcers to patient's left buttocks, one on the right buttocks that is the same size. No surrounding erythema, no discharge noted. Back/Spine normal ROM and normal to inspection Extremity normal to inspection and full ROM Neuro oriented x3, CN's II-XII intact bilaterally, moves all extremities, no focal motor deficits and no sensory deficits noted Sensorium / Orientation: awake and alert Psych mental status grossly normal and thought process normal Skin no rashes or lesions noted and no wounds <Dr. Ian Last MD - Last Filed: 11/24/22 18:49> Physical Exam Const Vital Signs: 11/24/22 12:57 11/24/22 12:59 11/24/22 13:56 Temperature 96.6 F L Temperature Source Temporal Pulse Rate 113 H Respiratory Rate 18 16 Respiratory Effort Normal Non-Labored Respiratory Pattern Normal Blood Pressure 87/61 L Blood Pressure Mean 69 Pulse Ox 94 Oxygen Delivery Method Nasal Cannula Oxygen Flow Rate (L/min) 3 11/24/22 14:00 11/24/22 15:00 11/24/22 15:56 Temperature Temperature Source Pulse Rate Respiratory Rate 16 16 Respiratory Effort Respiratory Pattern Blood Pressure 119/71 Blood Pressure Mean 87 Pulse Ox Oxygen Delivery Method Oxygen Flow Rate (L/min) 11/24/22 16:00 11/24/22 17:00 11/24/22 18:00 Temperature Temperature Source Pulse Rate Respiratory Rate 16 16 Respiratory Effort Respiratory Pattern Blood Pressure 129/74 H Blood Pressure Mean 92 Pulse Ox Oxygen Delivery Method Oxygen Flow Rate (L/min) MDM <LUZ Camilo - Last Filed: 11/24/22 20:10> [facility] Narrative Medical decision making narrative: Patient presenting from her infectious disease doctor for leukocytosis that was found on her labs a few days ago. He has concerns for C. difficile and wants her abdominal pain to be further worked up. He requested that she had blood cultures, LFT panel, and a C. difficile culture. These have all been obtained, we will attempt to have the stool culture obtained here. Abdomen is diffusely tender on examination but is most pronounced in the right upper quadrant. She has been given Zofran for her nausea. She is well-appearing and in no acute distress. Initially, she is slightly hypotensive and tachycardic but repeat blood pressure is improved. Given her her abdominal exam, right upper quadrant ultrasound was obtained and is suspicious for cholecystitis. CMP does show elevated liver enzymes with a elevated bilirubin. Attending did speak with on- call general surgeon and GI doctor. She will be admitted to the hospital to have an ERCP performed and further treatment. Patient also does have a mild UTI and has been started on Zosyn. She will be admitted in stable condition and is comfortable with plan. Lab Data Lab results narrative: WBC 17.3, H&H 9.1 and 27.7, platelet 46, creatinine 1.74, GFR 30, bilirubin 2.9, AST 214, alkaline phosphatase 958 Labs: Laboratory Results - last 24 hr 11/24/22 11/24/22 13:54 14:27 WBC 17.3 H RBC 3.04 L Hgb 9.1 L Hct 27.7 L MCV 91.1 MCH 29.9 MCHC 32.9 D RDW Std Deviation 62.9 H RDW Coeff of Edwar 19.1 H Plt Count 46 L* Immature Gran % (Auto) 1.400 H Neut % (Auto) 67.6 Lymph % (Auto) 11.9 L Leon % (Auto) 18.9 H Eos % (Auto) 0.1 Baso % (Auto) 0.1 Absolute Neuts (auto) 11.7 H Absolute Lymphs (auto) 2.05 Nucleated RBC % 0.1 Differential Comment SCANNED Diff Path Review May foll Sodium 136 Potassium 4.6 Chloride 105 Carbon Dioxide 24.0 Anion Gap 7 BUN 16 Creatinine 1.74 H Est GFR (MDRD) Af Amer 37 L Est GFR (MDRD) Non-Af 30 L BUN/Creatinine Ratio 9.2 L Glucose 81 Calcium 7.8 L Total Bilirubin 2.90 H AST 214 H ALT 24 Alkaline Phosphatase 958 H Total Protein 5.4 L Albumin 1.8 L Globulin 3.6 Albumin/Globulin Ratio 0.5 L Urine Color Yellow Urine Clarity Clear Urine pH 8.0 Ur Specific Lincoln 1.015 Urine Protein 15 H Urine Glucose (UA) Normal Urine Ketones 5 H Urine Occult Blood Negative Urine Nitrite Negative Urine Bilirubin 1 H Urine Urobilinogen Normal Ur Leukocyte Esterase 25 H Urine RBC 0-5 SEEN Urine WBC 5-10 SEEN Ur Squamous Epith Cells 0 SEEN Urine Bacteria 1+ Urine Mucus 0 SEEN Radiography Diagnostic Testing: Clinical Impression(s) from Imaging Studies Gallbladder Ultrasound 11/24/22 15:58 IMPRESSION: Enlarged fatty infiltrated liver. Findings which may be consistent with acute cholecystitis. Cannot exclude tiny nonshadowing stone within the gallbladder neck HIDA scan would be helpful for further evaluation. Other findings as above Electronically Signed: Fidencio Dempsey MD at 17:13 EDT , <Dr. Ian Last MD - Last Filed: 11/24/22 18:49> [facility] Lab Data Attestation: I reviewed the patient's lab results. Labs: Laboratory Results - last 24 hr 11/24/22 11/24/22 13:54 14:27 WBC 17.3 H RBC 3.04 L Hgb 9.1 L Hct 27.7 L MCV 91.1 MCH 29.9 MCHC 32.9 D RDW Std Deviation 62.9 H RDW Coeff of Edwar 19.1 H Plt Count 46 L* Immature Gran % (Auto) 1.400 H Neut % (Auto) 67.6 Lymph % (Auto) 11.9 L Leon % (Auto) 18.9 H Eos % (Auto) 0.1 Baso % (Auto) 0.1 Absolute Neuts (auto) 11.7 H Absolute Lymphs (auto) 2.05 Nucleated RBC % 0.1 Differential Comment SCANNED Diff Path Review May foll Sodium 136 Potassium 4.6 Chloride 105 Carbon Dioxide 24.0 Anion Gap 7 BUN 16 Creatinine 1.74 H Est GFR (MDRD) Af Amer 37 L Est GFR (MDRD) Non-Af 30 L BUN/Creatinine Ratio 9.2 L Glucose 81 Calcium 7.8 L Total Bilirubin 2.90 H AST 214 H ALT 24 Alkaline Phosphatase 958 H Total Protein 5.4 L Albumin 1.8 L Globulin 3.6 Albumin/Globulin Ratio 0.5 L Urine Color Yellow Urine Clarity Clear Urine pH 8.0 Ur Specific Lincoln 1.015 Urine Protein 15 H Urine Glucose (UA) Normal Urine Ketones 5 H Urine Occult Blood Negative Urine Nitrite Negative Urine Bilirubin 1 H Urine Urobilinogen Normal Ur Leukocyte Esterase 25 H Urine RBC 0-5 SEEN Urine WBC 5-10 SEEN Ur Squamous Epith Cells 0 SEEN Urine Bacteria 1+ Urine Mucus 0 SEEN Radiography Diagnostic Testing: Clinical Impression(s) from Imaging Studies Gallbladder Ultrasound 11/24/22 15:58 IMPRESSION: Enlarged fatty infiltrated liver. Findings which may be consistent with acute cholecystitis. Cannot exclude tiny nonshadowing stone within the gallbladder neck HIDA scan would be helpful for further evaluation. Other findings as above Electronically Signed: Fidencio Dempsey MD at 17:13 EDT , Management Discussion w/another healthcare provider: Hospitalist and Workplace Relations Adviser (surgery dr. peter; GI dr. olivas) Treatment and Re-Evaluation Comments:: Seen and evaluated independently and in conjunction with physician personal banking assistant. Agree with notes above unless documented otherwise. Patient recently on antibiotics for a left total hip arthroplasty that was complicated by an infection, she now has an antibiotic spacer, and is nonweightbearing living back at home, no longer in a fci. She has been having quite a bit of diarrhea recently, feeling very poorly, near syncopal at times, and sent for further evaluation and for possible C. difficile colitis. She has been having abdominal discomfort diffusely in her upper abd for about a month, worse after meals. Her left hip is been doing very well, she still has aleyda in that her orthopedic surgeon told her can come out, they have been in for just over 1 month, but no one is taken them out yet. Exam: Obese well-appearing no acute distress, tachycardia, abdomen soft nontender nondistended. Left hip appears without any erythema, dehiscence of the wound, aleyda are intact there is maybe 30 or so of them, see the procedure note these were removed. I can gently range her hip without any difficulty or significant pain. No signs of cellulitis in any of her extremities, lungs are clear. Plan: Blood cultures, IV fluids because of hypotension, C. difficile if she produces diarrhea, labs. Patient is initially hypotensive but on recheck her blood pressure is better. She is doing well clinically. She is moderately tender in the right upper quadrant, her LFTs were increasing, we did ultrasound, I reviewed the images and the report which I agree with, consistent with possible stones in gallbladder neck and signs of acute cholecystitis. Will discuss with surgery and medicine. Surgery agrees, consultation but admit to medicine and consult GI, discussed with Dr. Olivas who will probably be able to do an ERCP tomorrow. Procedures <Dr. Ian Last MD - Last Filed: 11/24/22 18:49> Other Procedures Procedure(s): Staple removal: Left hip surgical incision, well-appearing with no dehiscence, incision well-healed. Using staple remover tool after prepping with isopropanol before and after, all aleyda removed without difficulty tolerated well no pain and to the patient, no complications. Discharge Plan Dx/Rx/DC Orders Clinical Impression: Acute calculous cholecystitis, Acute diarrhea, Obstructive hyperbilirubinemia Disposition Disposition: Acute Care Hospital [facility]
[2022-11-24 14:04] LABS: Absolute Lymphocyte Count 2.05 X10^3/uL (0.83-4.51); Absolute Neutrophil Count 11.7 X10^3/uL (2.0-7.7); Basophil# 0.02 X10^3/uL; Basophil% 0.1 % (0-1); Eosinophil# 0.01 X10^3/uL; Eosinophils% 0.1 % (0-5); Hematocrit 27.7 % (37-47); Hemoglobin 9.1 g/dL (12.0-15.0); Lymphocyte # 2.05 X10^3/ul (0.83-4.51); Lymphocyte % 11.9 % (19-41); Mean Corp Hgb Conc 32.9 g/dL (32-36); Mean Corpuscular Hgb 29.9 pg (27.0-32.0); Mean Corpuscular Volume 91.1 fL (81-99); Monocyte# 3.26 X10^3/uL; Monocyte% 18.9 % (0-10); NRBC Flagged by Analyzer 0.1 % (0-5); Neutrophil # 11.66 X10^3/uL (2.7-7.7); Neutrophil % 67.6 % (47-70); POSITIVE COUNT YES; POSITIVE DIFFERENTIAL YES; RBC Distribution Width CV 19.1 % (11.6-14.6); RBC Distribution Width SD 62.9 fl (35.1-43.9); Red Blood Count 3.04 M/mm3 (4.2-5.4); White Blood Count 17.3 K/mm3 (4.4-11.0)
[2022-11-24 14:08] LABS: Differential Indicated SCAN CRITERIA MET
[2022-11-24 14:11] LABS: Platelet Count 46 K/mm3 (150-450)
[2022-11-24 14:19] LABS: ALB/GLOB Ratio 0.5 RATIO (0.9-2.4); AST(SGOT) 214 U/L (15-37); Alanine Aminotransfer ALT/SGPT 24 U/L (13-56); Albumin, Serum 1.8 g/dL (3.2-5.0); Alkaline Phosphatase 958 U/L (45-117); Anion Gap 7 (5-15); BUN 16 mg/dL (7-18); BUN/Creat Ratio 9.2 RATIO (10-20); Calcium,Total 7.8 mg/dL (8.5-10.1); Chloride 105 mmol/L (98-107); Creatinine, Serum 1.74 mg/dL (0.55-1.02); EST Glomerular Filtration Rate 30 mL/min (>60); Est Glom Filt Rate - Afr Amer 37 mL/min (>60); Globulin 3.6 g/dL (2.2-4.2); Glucose 81 mg/dL (74-106); Potassium 4.6 mmol/L (3.5-5.1); Protein, Total 5.4 g/dL (6.4-8.2); Sodium Level 136 mmol/L (136-145)
[2022-11-24 14:31] LABS: Differential Comment SCANNED
[2022-11-24 14:40] LABS: Mucous, Urine 0 SEEN /hpf (<or=2+); Squamous Epithelial Cells - UA 0 SEEN /hpf (5-10)
[2022-11-24 14:44] LABS: Color, Urine Yellow (Yellow); Glucose, Dipstick Normal (Normal); Ketone-Dipstick 5 mg/dl (Negative); Leukocyte Esterase-Dipstick 25 /ul (Negative); Nitrite-Dipstick Negative (Negative); Occult Blood-Urine Negative /ul (Negative); Protein-Dipstick 15 mg/dl (Negative); Specific Gravity, Urine 1.015 (1.002-1.030); Urine Clarity Clear (Clear); Urine Urobilinogen Normal (Normal)
--- NOTE | 2022-11-24 14:48 | ED.RN ---
UPON THIS RN DOING STRAIGHT CATH, A SMALL PRESSURE SORE NOTED TO THE DISTAL PART OF VAGINAL OPENING. PT THEN ROLLED TO CHANGE ATTENDS AND MULTIPLE PRESSURE SORES NOTED TO THE COCCYX. LUZ RECINOS NOTIFIED WELL DR. SIMS.
[2022-11-24 14:51] LABS: Bacteria 1+ /hpf (None Seen); Red Blood Cells-Urine 0-5 SEEN /hpf (0-5); Urine Bilirubin Dipstick 1 mg/dL (Negative); White Blood Cells 5-10 SEEN /hpf (0-5)
[2022-11-24] MEDS: Ondansetron 4 MG/2 ML Vial IV (15:21)
--- NOTE | 2022-11-24 15:58 | US_ITS ---
STUDY: ABDOMINAL ULTRASOUND - RIGHT UPPER QUADRANT REASON FOR VISIT: Female, 72 years old ABD PAIN TECHNIQUE: Ultrasound evaluation of the right upper quadrant was performed with real-time and static buck-scale imaging. TECHNICAL QUALITY: Adequate. COMPARISON: None. FINDINGS: Liver: The liver measures 15.2 cm. There is diffusely increased echogenicity of the liver. The bile ducts are within normal limits. There is hepatic color flow. The direction of portal flow is hepatopetal. There is no demonstrated mass lesion. Gallbladder: Normal distended gallbladder. The gallbladder wall measures mm. There is a positive sonographic Ventura''s sign. There is mild pericholecystic fluid. There are no shadowing stones however there is a tiny echogenic focus in the neck which does not shadow possibly representing a polyp or nonshadowing stone. Common Bile Duct (C.B.D.): The common bile duct measures 6 mm. Pancreas: Normal size of the head, and body of the pancreas. Pancreatic tail is not visualized. There is normal echogenicity of the pancreas. There is no demonstrated pancreatic mass or cyst. Right Kidney: Normal size of the right kidney. The right kidney measures 10.9 x 5.1 x 4.6 cm. Normal renal cortex. The right cortex measures 1.5 cm. There are multiple cysts the largest measuring approximately 6.2 cm.. There is no right hydronephrosis. US/Gallbladder IMPRESSION: Enlarged fatty infiltrated liver. Findings which may be consistent with acute cholecystitis. Cannot exclude tiny nonshadowing stone within the gallbladder neck HIDA scan would be helpful for further evaluation. Other findings as above Electronically Signed: Fidencio Dempsey MD at 17:13 EDT ,
--- NOTE | 2022-11-24 16:57 | ED.RN ---
pt daughter Vaishnavi calls wanting to share her contact information. Vasihnavi phone number [phone].
[2022-11-24] MEDS: Menthol/Lanolin/Calamine/Znox 113 GM Tube 1 APPLIC TOPICAL (17:20)
--- NOTE | 2022-11-24 19:25 | HP.PCM.HOS_ITS ---
HPI - General General Date of Admission: 11/24/22 Date of Service: 11/24/22 Chief Complaint: Nausea and vomiting HPI Narrative DANDRE PERAZA, is a 72 F with a significant history of hypothyroidism who recently had left hip surgery presents emergency department with nausea and vomiting for about 1 month and over. Associated with his symptoms is epigastric pain. Also, the patient has diarrhea which has been suspected for C. difficile. The patient was on antibiotics which reportedly did made a go into renal failure. Nausea dialysis patient. Reportedly having a few days improving. Patient saw her infectious disease doctor on the same day of presentation and she was dilated to emergency department because of abnormal labs. At the emergency department labs and ultrasound was concerning for possible cholecystitis. In regard to patient left hip she had left hip surgery which got infected. She then had antibiotic spacer placed in her left hip. Reportedly the antibiotics spacer has slipped an outpatient is supposed to bear no weight on the left hip. [facility] Medical History Anxiety and depression Arthritis Cataracts, bilateral CHI (closed head injury) Chronic anemia GERD (gastroesophageal reflux disease) Hemorrhoids Hypothyroidism IBS (irritable bowel syndrome) Obesity (BMI 30.0-34.9) Osteoarthritis Parkinson disease Rheumatoid arthritis Schizophrenia Home Medications pravastatin 40 mg tablet 40 mg PO QHS CHOLESTEROL 03/22/17 [History Last Taken 09/12/22] carbidopa 25 mg-levodopa 100 mg tablet 1 tab PO TID parkinsons 09/13/22 [History Last Taken 09/12/22] citalopram 40 mg tablet 20 mg PO DAILY DEPRESSION 09/13/22 [History Last Taken 09/12/22] folic acid 1 mg tablet 2 mg PO DAILY SUPPLEMENT 09/13/22 [History Last Taken 09/12/22] hydroxychloroquine 200 mg tablet 400 mg PO DAILY RHEUMATOID ARTHRITIS 09/13/22 [History Last Taken 09/12/22] levothyroxine 75 mcg tablet 75 mcg PO DAILY THYROID 09/13/22 [History Last Taken 09/12/22] methotrexate sodium 2.5 mg tablet 17.5 mg PO WE immunosupressive 09/13/22 [History Last Taken 09/07/22] olanzapine 7.5 mg tablet 7.5 mg PO QHS MOOD 09/13/22 [History Last Taken 09/12/22] omeprazole 40 mg capsule,delayed release 40 mg PO DAILY ACID REFLUX 09/13/22 [History Last Taken 09/12/22] potassium chloride 20 mEq tablet,extended release(part/cryst) 20 meq PO BID SUPPLEMENT 09/13/22 [History Last Taken 09/12/22] acetaminophen 500 mg tablet 1,000 mg (2 x 500 mg) PO Q6H PRN PRN Pain Score 1-3 #0 tabs 09/28/22 [Rx Last Taken Unknown] metoclopramide HCl 10 mg tablet (Reglan) 10 mg PO BID PRN PRN nausea and v omiting #14 tabs 11/19/22 [Rx Last Taken Unknown] ferrous sulfate 325 mg (65 mg iron) tablet 325 mg PO DAILY supplimentation 11/24/22 [History Last Taken Unknown] loperamide 2 mg capsule 2 mg PO PRN loose stool 11/24/22 [History Last Taken Unknown] ondansetron 4 mg disintegrating tablet 4 mg PO Q6H PRN nausea and vomiting 11/24/22 [History Last Taken Unknown] oxycodone 5 mg tablet 5 mg PO Q6H PRN Pain Score 4-10 11/24/22 [History Last Taken Unknown] Allergy/AdvReac Type Severity Reaction Status Date / Time linaclotide [From Linzess] Allergy Mild chest Verified 09/14/22 14:13 tightness histamine phosphate Allergy Unknown Verified 09/14/22 14:13 [From Histatrol] Family History Mother Heart disease Father Heart disease Brother Heart disease Surgical History H/O colonoscopy with polypectomy History of hip surgery History of knee replacement History of tonsillectomy and adenoidectomy History of tubal ligation Social History household members: spouse Smoking Status: Never smoker alcohol intake: never substance use type: does not use what type of physical activity do you participate in: walking frequency: 1-2 times per week ROS ROS Narrative Pertinent positives and pertinent negatives as noted in HPI. All other systems were reviewed and are negative Vital Signs Vital Signs Vital Signs: 11/24/22 12:57 11/24/22 12:59 11/24/22 13:56 Temperature 96.6 F L Temperature Source Temporal Pulse Rate 113 H Respiratory Rate 18 16 Respiratory Effort Normal Non-Labored Respiratory Pattern Normal Blood Pressure 87/61 L Blood Pressure Mean 69 Pulse Ox 94 Oxygen Delivery Method Nasal Cannula Oxygen Flow Rate (L/min) 3 11/24/22 14:00 11/24/22 15:00 11/24/22 15:56 Temperature Temperature Source Pulse Rate Respiratory Rate 16 16 Respiratory Effort Respiratory Pattern Blood Pressure 119/71 Blood Pressure Mean 87 Pulse Ox Oxygen Delivery Method Oxygen Flow Rate (L/min) 11/24/22 16:00 11/24/22 17:00 11/24/22 18:00 Temperature Temperature Source Pulse Rate Respiratory Rate 16 16 Respiratory Effort Respiratory Pattern Blood Pressure 129/74 H Blood Pressure Mean 92 Pulse Ox Oxygen Delivery Method Oxygen Flow Rate (L/min) Physical Exam Narrative Physical exam: General: Well-nourished, well-developed. Head: Normocephalic, atraumatic, no tenderness Eyes: Vision is grossly intact. EOMI ENT, no trauma, moist mucous membranes, no rhinorrhea Neck: Nontender, No thyromegaly. CVS: Regular rate and rhythm. S1-S2 present. No murmur, gallop or rub. Respiratory : clear to auscultation bilaterally, chest wall nontender Abdomen: Soft, nontender, nondistended, normal bowel sounds, no masses : Deferred Back: Nontender, no CVA tenderness Extremities: Swollen left foot with appears rotated. Skin: Pallor Neuro: Alert, oriented, cranial nerves II through XII grossly intact. Psychiatry: Normal mood. Normal affect. Not depressed. Not anxious. Results Lab / Micro Data Attestation: I reviewed the patient's lab results. 11/24/22 13:54 11/24/22 13:54 Labs: Laboratory Results - last 24 hr 11/24/22 13:54: WBC 17.3 H, RBC 3.04 L, Hgb 9.1 L, Hct 27.7 L, MCV 91.1, MCH 29.9, MCHC 32.9 D, RDW Std Deviation 62.9 H, RDW Coeff of Edwar 19.1 H, Plt Count 46 L*, Immature Gran % (Auto) 1.400 H, Neut % (Auto) 67.6, Lymph % (Auto) 11.9 L , [place] % (Auto) 18.9 H, Eos % (Auto) 0.1, Baso % (Auto) 0.1, Absolute Neuts (auto) 11.7 H, Absolute Lymphs (auto) 2.05, Nucleated RBC % 0.1, Differential Comment SCANNED, Diff Path Review September foll, Sodium 136, Potassium 4.6, Chloride 105, Carbon Dioxide 24.0, Anion Gap 7, BUN 16, Creatinine 1.74 H, Est GFR (MDRD) Af Amer 37 L, Est GFR (MDRD) Non-Af 30 L, BUN/Creatinine Ratio 9.2 L, Glucose 81, Calcium 7.8 L, Total Bilirubin 2.90 H, AST 214 H, ALT 24, Alkaline Phosphatase 958 H, Total Protein 5.4 L, Albumin 1.8 L, Globulin 3.6, Albumin/Globulin Ratio 0.5 L 11/24/22 14:27: Urine Color Yellow, Urine Clarity Clear, Urine pH 8.0, Ur Specific [place] 1.015, Urine Protein 15 H, Urine Glucose (UA) Normal, Urine Ketones 5 H, Urine Occult Blood Negative, Urine Nitrite Negative, Urine Bilirubin 1 H, Urine Urobilinogen Normal, Ur Leukocyte Esterase 25 H, Urine RBC 0-5 SEEN, Urine WBC 5-10 SEEN, Ur Squamous Epith Cells 0 SEEN, Urine Bacteria 1+, Urine Mucus 0 SEEN Radiology Impression Gallbladder Ultrasound 11/24/22 15:58 IMPRESSION: Enlarged fatty infiltrated liver. Findings which may be consistent with acute cholecystitis. Cannot exclude tiny nonshadowing stone within the gallbladder neck HIDA scan would be helpful for further evaluation. Other findings as above Electronically Signed: Fidencio Dempsey MD at 17:13 EDT , Assessment & Plan Assessment/Plan (1) Acute calculous cholecystitis: (2) Acute diarrhea: (3) Obstructive hyperbilirubinemia: PLAN: Plan Acute calculus cholecystitis/obstructive hyperbilirubinemia White count of presentation was 17,300, trend Impression of gallbladder ultrasound by radiologist:Enlarged fatty infiltrated liver. Findings which may be consistent with acute cholecystitis. Cannot exclude tiny nonshadowing stone within the gallbladder neck HIDA scan would be helpful for further evaluation. Started on [facility] emergency department and continued. GI and general surgery consult. N.p.o. after midnight. Acute diarrhea Enteric pathogen panel ordered. C. difficile ordered Acute on chronic thrombocytopenia Trend DVT prophylaxis SCDs ordered Charges/Coding Visit Charges Inpatient E&M: 06788 Init Hosp L3
--- NOTE | 2022-11-24 20:18 | CON.PCM.SX_ITS ---
Assessment & Plan Assessment/Plan (1) Acute calculous cholecystitis: PLAN: The patient has been having diarrhea for a month. When I asked her where her pain is she pointed all over her abdomen. On physical exam she did not seem very tender anywhere. She does have an elevated white count. She had an ultrasound that showed a possible stone in the neck of the gallbladder but there were no other stones in the gallbladder. Her LFTs are elevated. I would like to order a CT with oral contrast to check for thickening of the colon. Unable to get IV contrast due to her renal failure. Patient also only has platelets of 46. GI has been consulted for their input as well. If LFTs continue to rise he may do ERCP and then I would likely do cholecystectomy Monday. If the CT scan shows something otherwise then we will reassess. Domingo Ames MD Pager: [facility] [address] [place] [address], [address] [place] [address] Office: HPI Consult Data Date of Consult: 11/24/22 HPI Narrative HPI Narrative: DANDRE PERAZA, is a 72 F who presents with diarrhea for a month. She is also been having abdominal pain. When asked where her pain is she sort of pointed all over her abdomen. Patient was recently in the hospital and in rehab for a hip infection which required an antibiotic spacer. She was also recently seen in the emergency room for bleeding around her dialysis catheter. [facility] Medical History Anxiety and depression Arthritis Cataracts, bilateral CHI (closed head injury) Chronic anemia GERD (gastroesophageal reflux disease) Hemorrhoids Hypothyroidism IBS (irritable bowel syndrome) Obesity (BMI 30.0-34.9) Osteoarthritis Parkinson disease Rheumatoid arthritis Schizophrenia Home Medications pravastatin 40 mg tablet 40 mg PO QHS CHOLESTEROL 03/22/17 [History Last Taken 09/12/22] carbidopa 25 mg-levodopa 100 mg tablet 1 tab PO TID parkinsons 09/13/22 [History Last Taken 09/12/22] citalopram 40 mg tablet 40 mg PO DAILY DEPRESSION 09/13/22 [History Last Taken 09/12/22] folic acid 1 mg tablet 2 mg PO DAILY SUPPLEMENT 09/13/22 [History Last Taken 09/12/22] hydroxychloroquine 200 mg tablet 400 mg PO DAILY RHEUMATOID ARTHRITIS 09/13/22 [History Last Taken 09/12/22] levothyroxine 75 mcg tablet 75 mcg PO DAILY THYROID 09/13/22 [History Last Taken 09/12/22] methotrexate sodium 2.5 mg tablet 17.5 mg PO WE immunosupressive 09/13/22 [History Last Taken 09/07/22] olanzapine 7.5 mg tablet 7.5 mg PO DAILY MOOD 09/13/22 [History Last Taken 09/12/22] omeprazole 40 mg capsule,delayed release 40 mg PO DAILY ACID REFLUX 09/13/22 [History Last Taken 09/12/22] potassium chloride 20 mEq tablet,extended release(part/cryst) 20 meq PO BID SUPPLEMENT 09/13/22 [History Last Taken 09/12/22] acetaminophen 500 mg tablet 1,000 mg (2 x 500 mg) PO Q6H PRN PRN Pain Score 1-3 #0 tabs 09/28/22 [Rx Last Taken Unknown] oxycodone 5 mg tablet 5 mg PO Q4H PRN PRN Pain Score 4-10 7 days #42 tabs 09/28/22 [Rx Last Taken Unknown] metoclopramide HCl 10 mg tablet (Reglan) 10 mg PO BID PRN PRN nausea and vomiting #14 tabs 11/19/22 [Rx Last Taken Unknown] Allergy/AdvReac Type Severity Reaction Status Date / Time linaclotide [From Linzess] Allergy Mild chest Verified 09/14/22 14:13 tightness histamine phosphate Allergy Unknown Verified 09/14/22 14:13 [From Histatrol] Family History Mother Heart disease Father Heart disease Brother Heart disease Surgical History H/O colonoscopy with polypectomy History of hip surgery History of knee replacement History of tonsillectomy and adenoidectomy History of tubal ligation Social History household members: spouse Smoking Status: Never smoker alcohol intake: never substance use type: does not use what type of physical activity do you participate in: walking frequency: 1-2 times per week ROS Constitutional Constitutional: Denies anorexia, chills or fatigue Eyes Eyes: Denies blurry vision ENT HEENT: Denies abnormal hearing Cardiovascular Cardiovascular: Denies chest pain Respiratory/Chest Respiratory/Chest: Denies cough or dyspnea Gastrointestinal Gastrointestinal: Reports abdominal pain and diarrhea; Denies dysphagia, hematemesis or vomiting Genitourinary Genitourinary: Denies dysuria Musculoskeletal Musculoskeletal: Reports difficulty walking; Denies back pain Integumentary Integumentary: Denies jaundice or new lesions Neurologic Neurologic: Denies abnormal gait Psychiatric Psychiatric: Reports anxiety Hematologic/Lymphatic Hematologic/Lymphatic: Reports easy bleeding Lab / Micro Data 11/24/22 13:54 11/24/22 13:54 Labs: Laboratory Results - last 24 hr 11/24/22 13:54: WBC 17.3 H, RBC 3.04 L, Hgb 9.1 L, Hct 27.7 L, MCV 91.1, MCH 29.9, MCHC 32.9 D, RDW Std Deviation 62.9 H, RDW Coeff of Edwar 19.1 H, Plt Count 46 L*, Immature Gran % (Auto) 1.400 H, Neut % (Auto) 67.6, Lymph % (Auto) 11.9 L , [place] % (Auto) 18.9 H, Eos % (Auto) 0.1, Baso % (Auto) 0.1, Absolute Neuts (auto) 11.7 H, Absolute Lymphs (auto) 2.05, Nucleated RBC % 0.1, Differential Comment SCANNED, Diff Path Review September, Sodium 136, Potassium 4.6, Chloride 105, Carbon Dioxide 24.0, Anion Gap 7, BUN 16, Creatinine 1.74 H, Est GFR (MDRD) Af Amer 37 L, Est GFR (MDRD) Non-Af 30 L, BUN/Creatinine Ratio 9.2 L, Glucose 81, Calcium 7.8 L, Total Bilirubin 2.90 H, AST 214 H, ALT 24, Alkaline Phosphat ase 958 H, Total Protein 5.4 L, Albumin 1.8 L, Globulin 3.6, Albumin/Globulin Ratio 0.5 L 11/24/22 14:27: Urine Color Yellow, Urine Clarity Clear, Urine pH 8.0, Ur Specific [place] 1.015, Urine Protein 15 H, Urine Glucose (UA) Normal, Urine Ketones 5 H, Urine Occult Blood Negative, Urine Nitrite Negative, Urine Bilirubin 1 H, Urine Urobilinogen Normal, Ur Leukocyte Esterase 25 H, Urine RBC 0-5 SEEN, Urine WBC 5-10 SEEN, Ur Squamous Epith Cells 0 SEEN, Urine Bacteria 1+, Urine Mucus 0 SEEN Radiology Impression Gallbladder Ultrasound 11/24/22 15:58 IMPRESSION: Enlarged fatty infiltrated liver. Findings which may be consistent with acute cholecystitis. Cannot exclude tiny nonshadowing stone within the gallbladder neck HIDA scan would be helpful for further evaluation. Other findings as above Electronically Signed: Fidencio Dempsey MD at 17:13 EDT ,
--- NOTE | 2022-11-24 21:41 | CT_ITS ---
EXAM: CT ABDOMEN AND PELVIS WITHOUT INTRAVENOUS CONTRAST CLINICAL INDICATION: diarrhea, diffuse abdominal pain -- PO contrast only due to renal insufficiency TECHNIQUE: Helically acquired images were obtained of the abdomen and pelvis without intravenous contrast. This CT exam was performed using one or more of the following dose reduction techniques: automated exposure control, adjustment of the mA and/or kV according to patient size, and/or use of iterative reconstruction technique. CONTRAST: Oral Gastrografin RADIATION DOSE: Total DLP: 575.65 mGy-cm. COMPARISON: Previous CT of 12/04/2014. Gallbladder ultrasound of 11/24/2022. FINDINGS: LOWER THORAX: A minimal right pleural effusion is present. Dependent atelectasis noted at both lung bases. Minimal bronchiectasis also noted within the lower lobes. Moderate coronary artery calcification is present. No significant pericardial effusion. Minimal hiatal hernia. Small amount of retained contrast within the distal esophagus. ABDOMEN: LIVER: Fatty infiltration of the liver. Right hepatic lobe measures 18 cm in cephalocaudal dimension. GALLBLADDER AND BILE DUCTS: Partially contracted gallbladder. Punctate stone in the dependent portion of the gallbladder near the neck. Thickening and indistinctness of the gallbladder wall with pericholecystic haziness. Common bile duct is normal in caliber and no calcified common duct stone is seen. PANCREAS: Unremarkable. No focal cystic mass. SPLEEN: Unremarkable. Normal size without focal cystic or solid mass. ADRENALS: Unremarkable. No nodules. KIDNEYS AND URETERS: 7 mm diameter cyst of the upper pole of the right kidney, containing a thin calcified internal septation; this is a Bosniak type II renal cyst which requires no follow-up. Punctate parenchymal calcification within the anterior cortex of the right kidney. Tiny hyperdense/proteinaceous cyst of the right renal lower pole. No obstructing ureteral stone or hydronephrosis. No perirenal stranding. STOMACH AND BOWEL: Stomach is partially decompressed. Oral contrast passes through the stomach and small bowel into the colon, without evidence for small bowel obstruction. There is limited distention of the colon with the contrast; even when allowing for the lack of distention, wall of the transverse colon appears mildly thickened and edematous, suspicious for a colitis, with slight pericolonic stranding about the proximal transverse colon and hepatic flexure. Multiple folds of the ascending colon are mildly prominent. Wall of the descending and proximal sigmoid colon is minimally thickened, primarily due to the lack of distention. A few sigmoid diverticula are present without evidence for acute diverticulitis. PELVIS: APPENDIX: No evidence of acute appendicitis. BLADDER: Partially distended urinary bladder is unremarkable when allowing for streak artifact from the left hip prosthesis. REPRODUCTIVE: Atrophic uterus. Previous tubal ligation. No adnexal mass. ABDOMEN and PELVIS: INTRAPERITONEAL SPACE: Trace of free fluid in the dependent portion of pelvis. No pneumatosis or extraluminal air is identified. BONES/JOINTS: Total left hip prosthesis. Lower thoracic and lumbar degenerative disc disease, most severe at the L4/5 and L5/S1 levels. Lumbar facet arthritis. SOFT TISSUES: Unremarkable. No discrete abdominal or pelvic wall hernia. VASCULATURE: Calcific abdominal aorta. No AAA. Abdominal aorta is non-dilated. LYMPH NODES: Unremarkable. No enlarged lymph nodes. CT/Abdomen/Pel W ORAL Cont Only IMPRESSION: Cholelithiasis with findings of mild cholecystitis, as noted on the preceding ultrasound. Findings of a mild colitis, probably related affecting the transverse colon. No pneumatosis or extraluminal air. No abscess or findings of small bowel obstruction. Electronically Signed: Mario Vences MD at 2:08 EDT ,
--- NOTE | 2022-11-24 22:33 | CM.ED ---
Social Work SW introduced self and role to patient and pt's daughter, Vaishnavi. Pt recently discharged from [facility] due to insurance no longer covering. Daughter reports mother is not walking and needs more care than she can give right now and more assistance is needed at home. Pt has a surgery consult and likely to have surgery soon per daughter. Daughter reports that [place] did not help them get HHC set up and didn't get home O2 set up either. Daughter has ordered equipment and trying to make arrangements to care for mother at home. Daughter has purchased an adjustable bed, wheelchair and is waiting on a moise lift to be delivered. Pt is currently not ambulating and may need SNF placement or HHC according to needs. Daughter reports they had [facility] HHC services prior to pt being placed in a SNF and would like services to resume if appropriate. Daughter is exploring Medicaid eligibility and is not sure if it is possible due to pt and spouse owning their home. Daughter reports she is meeting with a vascular surgeon to discuss options. Plan: Follow for d/c planning and pt needs.
--- NOTE | 2022-11-24 22:49 | NURSING ---
Pt unsure unable to verify med list. Called Soila, Pt's daughter, and left a message requesting a return call.
[2022-11-24] MEDS: 0.9% Normal Saline 1,000 ML 75 ML IV (23:05)
[2022-11-25] VITALS (18 sets, daily range): BP systolic 108–151; BP diastolic 59–81; PULSE 66–84; RESP 16–18; TEMP 36.1–36.9; O2SAT 94–100
[2022-11-25] MEDS: Menthol/Lanolin/Calamine/Znox 113 GM Tube 1 APPLIC TOPICAL ×3 (04:39→21:03)
[2022-11-25] MEDS: Levothyroxine 75 MCG Tablet PO (06:06)
[2022-11-25] MEDS: Carbidopa/Levodopa 25/100 Tablet PO ×2 (06:06→12:17)
[2022-11-25 06:51] LABS: Absolute Lymphocyte Count 2.69 X10^3/uL (0.83-4.51); Absolute Neutrophil Count 6.8 X10^3/uL (2.0-7.7); Basophil# 0.02 X10^3/uL; Basophil% 0.2 % (0-1); Eosinophil# 0.11 X10^3/uL; Eosinophils% 0.9 % (0-5); Hematocrit 21.6 % (37-47); Hemoglobin 6.9 g/dL (12.0-15.0); Lymphocyte # 2.69 X10^3/ul (0.83-4.51); Mean Corp Hgb Conc 31.9 g/dL (32-36); Mean Corpuscular Hgb 29.4 pg (27.0-32.0); Mean Corpuscular Volume 91.9 fL (81-99); Monocyte# 2.43 X10^3/uL; Monocyte% 19.9 % (0-10); NRBC Flagged by Analyzer 0.2 % (0-5); Neutrophil % 55.5 % (47-70); POSITIVE COUNT YES; POSITIVE DIFFERENTIAL YES; RBC Distribution Width CV 19.4 % (11.6-14.6); RBC Distribution Width SD 64.1 fl (35.1-43.9); Red Blood Count 2.35 M/mm3 (4.2-5.4); White Blood Count 12.2 K/mm3 (4.4-11.0)
[2022-11-25 06:59] LABS: Differential Indicated SCAN CRITERIA MET; Platelet Count 33 K/mm3 (150-450)
[2022-11-25 07:45] LABS: ALB/GLOB Ratio 0.5 RATIO (0.9-2.4); AST(SGOT) 177 U/L (15-37); Alanine Aminotransfer ALT/SGPT 29 U/L (13-56); Albumin, Serum 1.4 g/dL (3.2-5.0); Alkaline Phosphatase 743 U/L (45-117); Anion Gap 5 (5-15); BUN 15 mg/dL (7-18); BUN/Creat Ratio 9.8 RATIO (10-20); Calcium,Total 7.4 mg/dL (8.5-10.1); Chloride 107 mmol/L (98-107); Creatinine, Serum 1.53 mg/dL (0.55-1.02); EST Glomerular Filtration Rate 35 mL/min (>60); Est Glom Filt Rate - Afr Amer 43 mL/min (>60); Estimated Creatinine Clearance 26.69 ml/min; Globulin 2.9 g/dL (2.2-4.2); Glucose 65 mg/dL (74-106); Potassium 3.8 mmol/L (3.5-5.1); Protein, Total 4.3 g/dL (6.4-8.2); Sodium Level 137 mmol/L (136-145)
[2022-11-25 08:55] LABS: Prothrombin Time (Protime)PT. 31.3 SECONDS (11.7-14.9)
[2022-11-25 09:03] LABS: Partial Thromboplast Time 60.4 Seconds (24.1-36.2)
[2022-11-25 09:35] LABS: Immature Platelet Fraction 22.1 % (1.0-7.9); Platelet Count 34 K/mm3 (150-450); RET-HE 33.9 pg (30-35); Reticulocyte Count 2.72 % (0.5-1.5)
[2022-11-25 09:38] LABS: Fibrinogen 102 mg/dl (203-444)
[2022-11-25 09:53] LABS: Platelet Estimate MOD DEC (ADEQ)
[2022-11-25 09:54] LABS: Anisocytosis RARE; D-Dimer Quantitative (DVT/PE) 1.43 FEU/ug/m (0.27-0.49); Hypochromasia 1+
[2022-11-25 09:55] LABS: Bilirubin, Direct 2.09 mg/dL (0.00-0.30)
[2022-11-25 10:39] LABS: Pathologist Review Reviewed
[2022-11-25 12:16] LABS: LDH 363 U/L (84-246)
[2022-11-25] MEDS: Pantoprazole Sodium 40 MG Tablet PO (12:17)
[2022-11-25] MEDS: Citalopram 20 MG Tablet PO (12:17)
--- NOTE | 2022-11-25 12:17 | PCM.CONS.R ---
Assessment & Plan Assessment/Plan (1) Acute renal failure: PLAN: Sustained CARMENZA presumably due to ATN. Has been on dialysis. Last dialysis was Monday. Urine output has significantly improved according to her. Creatinine is down to 1.5-1.7 without dialysis for almost 3 days. Is possible that she is in recovery. We will hold dialysis for now. Monitor labs. If creatinine remains stable, will make arrangements for removal of dialysis catheter next week. Thrombocytopenia. Platelet counts are slowly worsening. HIT antibodies have been sent. She also has coagulopathy with elevated INR, PTT PT. HPI Consult Data Date of Consult: 11/25/22 HPI Narrative Reason for Consultation: Acute renal failure HPI Narrative: DANDRE PERAZA, is a 72 F who presents To the hospital with abdominal pain, diarrhea. Nephrology on consultation due to history of CARMENZA. She was recently admitted here after hip surgery, sustained CARMENZA due to ATN. Started on dialysis. Currently on Monday, , Monday schedule. Last dialysis was Monday. Recently urine output has increased. We were in the process of getting a 24-hour urine collection. Creatinine is down to 1.5-1.7 range and has been stable. Currently does not have any signs of volume overload. Ongoing diarrhea for almost a month. Surgery on consult due to suspected gallstone. [facility] Medical History Anxiety and depression Arthritis Cataracts, bilateral CHI (closed head injury) Chronic anemia GERD (gastroesophageal reflux disease) Hemorrhoids Hypothyroidism IBS (irritable bowel syndrome) Obesity (BMI 30.0-34.9) Osteoarthritis Parkinson disease Rheumatoid arthritis Schizophrenia Home Medications pravastatin 40 mg tablet 40 mg PO QHS CHOLESTEROL 03/22/17 [History Last Taken 09/12/22] carbidopa 25 mg-levodopa 100 mg tablet 1 tab PO TID parkinsons 09/13/22 [History Last Taken 09/12/22] citalopram 40 mg tablet 20 mg PO DAILY DEPRESSION 09/13/22 [History Last Taken 09/12/22] folic acid 1 mg tablet 2 mg PO DAILY SUPPLEMENT 09/13/22 [History Last Taken 09/12/22] hydroxychloroquine 200 mg tablet 400 mg PO DAILY RHEUMATOID ARTHRITIS 09/13/22 [History Last Taken 09/12/22] levothyroxine 75 mcg tablet 75 mcg PO DAILY THYROID 09/13/22 [History Last Taken 09/12/22] methotrexate sodium 2.5 mg tablet 17.5 mg PO WE immunosupressive 09/13/22 [History Last Taken 09/07/22] olanzapine 7.5 mg tablet 7.5 mg PO QHS MOOD 09/13/22 [History Last Taken 09/12/22] omeprazole 40 mg capsule,delayed release 40 mg PO DAILY ACID REFLUX 09/13/22 [History Last Taken 09/12/22] potassium chloride 20 mEq tablet,extended release(part/cryst) 20 meq PO BID SUPPLEMENT 09/13/22 [History Last Taken 09/12/22] acetaminophen 500 mg tablet 1,000 mg (2 x 500 mg) PO Q6H PRN PRN Pain Score 1-3 #0 tabs 09/28/22 [Rx Last Taken Unknown] metoclopramide HCl 10 mg tablet (Reglan) 10 mg PO BID PRN PRN nausea and vomiting #14 tabs 11/19/22 [Rx Last Taken Unknown] ferrous sulfate 325 mg (65 mg iron) tablet 325 mg PO DAILY supplimentation 11/24/22 [History Last Taken Unknown] loperamide 2 mg capsule 2 mg PO PRN loose stool 11/24/22 [History Last Taken Unknown] ondansetron 4 mg disintegrating tablet 4 mg PO Q6H PRN nausea and vomiting 11/24/22 [History Last Taken Unknown] oxycodone 5 mg tablet 5 mg PO Q6H PRN Pain Score 4-10 11/24/22 [History Last Taken Unknown] Allergy/AdvReac Type Severity Reaction Status Date / Time linaclotide [From Linzess] Allergy Mild chest Verified 09/14/22 14:13 tightness histamine phosphate Allergy Unknown Verified 09/14/22 14:13 [From Histatrol] Family History Mother Heart disease Father Heart disease Brother Heart disease Surgical History H/O colonoscopy with polypectomy History of hip surgery History of knee replacement History of tonsillectomy and adenoidectomy History of tubal ligation Social History household members: spouse Smoking Status: Never smoker alcohol intake: never substance use type: does not use what type of physical activity do you participate in: walking frequency: 1-2 times per week ROS ROS Narrative Negative except above Physical Exam Narrative Alert awake oriented x 3 no obvious distress no pallor no icterus no JVD s1s2 no murmurs lungs clear abdomen soft no organomegaly no edema no cyanosis Lab / Micro Data 11/25/22 06:10 11/25/22 06:10 Labs: Laboratory Results - last 24 hr 11/24/22 13:54: WBC 17.3 H, RBC 3.04 L, Hgb 9.1 L, Hct 27.7 L, MCV 91.1, MCH 29.9, MCHC 32.9 D, RDW Std Deviation 62.9 H, RDW Coeff of Edwar 19.1 H, Plt Count 46 L*, Immature Gran % (Auto) 1.400 H, Neut % (Auto) 67.6, Lymph % (Auto) 11.9 L, [place] % (Auto) 18.9 H, Eos % (Auto) 0.1, Baso % (Auto) 0.1, Absolute Neuts (auto) 11.7 H, Absolute Lymphs (auto) 2.05, Nucleated RBC % 0.1, Differential Comment SCANNED, Diff Path Review September, Sodium 136, Potassium 4.6, Chloride 105, Carbon Dioxide 24.0, Anion Gap 7, BUN 16, Creatinine 1.74 H, Est GFR (MDRD) Af Amer 37 L, Est GFR (MDRD) Non-Af 30 L, BUN/Creatinine Ratio 9.2 L, Glucose 81, Calcium 7.8 L, Total Bilirubin 2.90 H, AST 214 H, ALT 24, Alkaline Phosphatase 958 H, Total Protein 5.4 L, Albumin 1.8 L, Globulin 3.6, Albumin/Globulin Ratio 0.5 L 11/24/22 14:27: Urine Color Yellow, Urine Clarity Clear, Urine pH 8.0, Ur Specific [place] 1.015, Urine Protein 15 H, Urine Glucose (UA) Normal, Urine Ketones 5 H, Urine Occult Blood Negative, Urine Nitrite Negative, Urine Bilirubin 1 H, Urine Urobilinogen Normal, Ur Leukocyte Esterase 25 H, Urine RBC 0-5 SEEN, Urine WBC 5-10 SEEN, Ur Squamous Epith Cells 0 SEEN, Urine Bacteria 1+, Urine Mucus 0 SEEN 11/25/22 06:10: WBC 12.2 H, RBC 2.35 L, Hgb 6.9 L, Hct 21.6 L, MCV 91.9, MCH 29.4, MCHC 31.9 L, RDW Std Deviation 64.1 H, RDW Coeff of Edwar 19.4 H, Plt Count 33 L*, MPV TNP, Immature Gran % (Auto) 1.500 H, Neut % (Auto) 55.5, Lymph % (Auto) 22.0, [place] % (Auto) 19.9 H, Eos % (Auto) 0.9, Baso % (Auto) 0.2, Absolute Neuts (auto) 6.8, Absolute Lymphs (auto) 2.69, Nucleated RBC % 0.2, Diff Path Review Reviewed, Platelet Estimate MOD DEC, Immature Plt Fraction 22.1 H, Hypochromasia 1+, Anisocytosis RARE, Retic Count 2.72 H, Immature Retic Fraction 23.50 H, Retic Hgb Equivalent 33.9, PT 31.3 H, INR 3.0, APTT 60.4 H, Fibrinogen 102 L, D-Dimer Quant (PE/DVT) 1.43 H*, Sodium 137, Potassium 3.8, Chloride 107, Carbon Dioxide 25.0, Anion Gap 5, BUN 15, Creatinine 1.53 H, Estim Creat Clear Calc 26.69, Est GFR (MDRD) Af Amer 43 L, Est GFR (MDRD) Non-Af 35 L, BUN/Creatinine Ratio 9.8 L, Glucose 65 L, Calcium 7.4 L, Total Bilirubin 2.50 H, AST 177 H, ALT 29, Alkaline Phosphatase 743 H, Total Protein 4.3 L, Albumin 1.4 L, Globulin 2.9, Albumin/Globulin Ratio 0.5 L 11/25/22 09:25: Total Bilirubin 2.60 H, Direct Bilirubin 2.09 H, Indirect Bilirubin 0.50, Lactate Dehydrogenase 363 H, Blood Type O POSITIVE, Antibody Screen NEGATIVE, Crossmatch See Detail Micro: Microbiology 11/24/22 14:27 Blood Culture (Wb) - Anticubital Right Blood Culture - Preliminary No growth in 48 hours. 11/24/22 14:00 Blood Culture (Wb) - Anticubital Right Blood Culture - Preliminary No growth in 48 hours. 11/24/22 23:00 Stool Stool Lactoferrin - Final 11/24/22 23:00 Stool Enteric Bacteriology - Final 11/24/22 23:00 Stool C. difficile DNA Amplification - Final Radiology Impression Gallbladder Ultrasound 11/24/22 15:58 IMPRESSION: Enlarged fatty infiltrated liver. Findings which may be consistent with acute cholecystitis. Cannot exclude tiny nonshadowing stone within the gallbladder neck HIDA scan would be helpful for further evaluation. Other findings as above Electronically Signed: Fidencio Dempsey MD at 17:13 EDT , Abdomen CT 11/24/22 21:41 IMPRESSION: Cholelithiasis with findings of mild cholecystitis, as noted on the preceding ultrasound. Findings of a mild colitis, probably related affecting the transverse colon. No pneumatosis or extraluminal air. No abscess or findings of small bowel obstruction. Electronically Signed: Mario Vences MD at 2:08 EDT ,
[2022-11-25] MEDS: Ferrous Sulfate 325 MG Tablet PO (12:18)
--- NOTE | 2022-11-25 14:05 | CASEMGMT ---
Addendum entered by Darlin Lopez 11/25/22 15:13: Pt has oxygen at home through [employer]. Verified orders are 3L cont. Original Note: RN MIHIR Assessment: Face to Face with pt for initial transition planning/care coordination assessment. RN MIHIR introduced self and role at [facility], pt voices understanding and consents to assessment. Pt is A/O x4 and answers all questions appropriately at this time. Pt lying in bed in no distress with oxygen on. Care providers, pharmacy, and demographics verified/updated. Admitting Dx: acute cholecystitis PCP:[facility] Specialists:CHRISTIAN Forrester; ilana Frances Pharmacy: [facility] Insurance: [employer] Prescription Benefit: yes LNOK: Yonny Hale, ; Vaishnavi Curry, dtr Living Arrangements: Pt lives with , dtr, son in law and grandson in a single story home with a ramp to enter. Pt reports she needs assistance with all ADL's. She states her dtr sponge bathes her and dresses her. Pt dtr and do laundry and cooking of meals. Pt states she is mostly in bed at home. Transportation: Pt family provides transportation for pt or [employer]. DME/HHC/SNF: Pt has a walker and shower chair at home. Pt has had [facility] HHC in the past. Pt has been to [facility] and [facility] TCU. Pt has dialysis T//Sat per chart. Pt states no concerns with going home at time of dc. She states she hopes she can go home. She thinks her dtr and are setting up HH for her through [facility]. TC queenie Tomlinson at [facility] and she states pt was dc'd on October 21 but she does not have a referral. Pt states she has not seen in approx a month. She gave permission to call her dtr to discuss her care. Pt states no further concerns/needs. CM to follow. Advised pt to ask CM if any further question/concerns/needs arise, voices understanding. Pt Goal: Home Plan: TBD pending course of hospitalization TC to pt dtr. She states that HHC is not in the works but that they spoke with the SW in the ER and discussed this. She states at this time she sees items on the portal for her mother and she has lots of questions and wants to speak with a physician before any arrangements for dc are made. She is aware that the RN CM will continue to follow along. Also discussed if HHC is needed, pt will need to see prior and this could possibly be arranged on day of dc. She denies further needs.
[2022-11-25 15:17] LABS: Hematocrit 28.5 % (37-47); Hemoglobin 8.9 g/dL (12.0-15.0); POSITIVE COUNT YES
--- NOTE | 2022-11-25 16:52 | PN.HOSP_ITS ---
Reason for Visit Reason for Visit: Nausea and vomiting Subjective Subjective Mrs. Hale is a 72-year-old white female who presented to the emergency department at [facility] due to nausea and vomiting. Patient reports she had a recent left hip surgery and has had nausea and vomiting for about a month or a bit over. This is associated with epigastric pain. She also reported she has had some diarrhea which was suspected for C. difficile. She was on antibiotics previously. She recently developed kidney failure which required dialysis however her renal function seems to be improving. The patient was seen by her infectious disease doctor on the day of presentation to the emergency department and he was concerned about her leukocytosis and referred her to the emergency department. With regards to her left hip surgery. This got infected and antibiotic spacer was placed in her left hip. She reports that the antibiotic spacer had slipped and she is supposed to be nonweightbearing on her left leg. Vital signs on presentation showed a temperature of 96.6, heart rate 113, blood pressure initially was 87/61 with repeat at 119/71, respiratory rate is 18 oxygen saturation is 97% on 2 L nasal cannula. Has been wearing 2 L nasal cannula for oxygen. CBC on presentation showed a leukocytosis with a white count of 17.3, hemoglobin of 9.1 which is her baseline, platelet count of 46,000 which is trending down, she had no left shift. Chemistry panel on presentation showed normal electrolytes with a serum creatinine of 1.74 which is slowly been improving, total bilirubin of 2.9, AST of 214 with a normal ALT and a markedly elevated alk phos at 958. While reviewing her lab work I noted her platelet count was normal in early October and she had noted thrombocytopenia on October 31, 2022. Since that point time she has trended down to the point where her platelet count was 33,000. Her hemoglobin dropped this morning to 6.9 and she required transfusion. She recently had an emergency department visit for spontaneous bleeding at her tunneled dialysis catheter site. The last coags we have on record are from September and they were normal at that time. Patient states she has been having epigastric pain and right upper quadrant pain with ongoing intermittent diarrhea. C. difficile and enteric panel are negative. General surgery has evaluated the patient and he indicated he would take her for surgery for gallbladder removal on Monday if we could correct her platelet issues. Objective Data Objective Data Vital Signs: Vital Signs Temp Pulse Resp BP Pulse Ox O2 Del Method O2 Flow Rate 97.9 F 84 16 115/62 98 Nasal Cannula 2 11/25/22 16:38 11/25/22 16:38 11/25/22 16:38 11/25/22 16:38 11/25/22 16:38 11/25/22 16:38 11/25/22 16:38 Oxygen Flow Rate (L/min) 2 Oxygen Delivery Method Nasal Cannula Weight: 75.1 kg Body Mass Index (BMI) 29.3 Intake & Output: Intake and Output for Last 24 Hours 11/23/22 11/24/22 11/25/22 23:59 23:59 23:59 Intake Total 50 / 50 1670 / 1670 Balance 50 / 50 1670 / 1670 Lab / Micro Data 11/25/22 15:09 11/25/22 06:10 Labs: Laboratory Results - last 24 hr 11/25/22 06:10: WBC 12.2 H, RBC 2.35 L, Hgb 6.9 L, Hct 21.6 L, MCV 91.9, MCH 29.4, MCHC 31.9 L, RDW Std Deviation 64.1 H, RDW Coeff of Edwar 19.4 H, Plt Count 33 L*, MPV TNP, Immature Gran % (Auto) 1.500 H, Neut % (Auto) 55.5, Lymph % (Auto) 22.0, [place] % (Auto) 19.9 H, Eos % (Auto) 0.9, Baso % (Auto) 0.2, Absolute Neuts (auto) 6.8, Absolute Lymphs (auto) 2.69, Nucleated RBC % 0.2, Diff Path Review Reviewed, Platelet Estimate MOD DEC, Immature Plt Fraction 22.1 H, Hypochromasia 1+, Anisocytosis RARE, Retic Count 2.72 H, Immature Retic Fraction 23.50 H, Retic Hgb Equivalent 33.9, PT 31.3 H, INR 3.0, APTT 60.4 H, Fibrinogen 102 L, D-Dimer Quant (PE/DVT) 1.43 H*, Sodium 137, Potassium 3.8, Chloride 107, Carbon Dioxide 25.0, Anion Gap 5, BUN 15, Creatinine 1.53 H, Estim Creat Clear Calc 26.69, Est GFR (MDRD) Af Amer 43 L, Est GFR (MDRD) Non-Af 35 L, B UN/Creatinine Ratio 9.8 L, Glucose 65 L, Calcium 7.4 L, Total Bilirubin 2.50 H, AST 177 H, ALT 29, Alkaline Phosphatase 743 H, Total Protein 4.3 L, Albumin 1.4 L, Globulin 2.9, Albumin/Globulin Ratio 0.5 L 11/25/22 09:25: Total Bilirubin 2.60 H, Direct Bilirubin 2.09 H, Indirect Bilirubin 0.50, Lactate Dehydrogenase 363 H, Blood Type O POSITIVE, Antibody Screen NEGATIVE, Crossmatch See Detail 11/25/22 15:09: Hgb 8.9 L, Hct 28.5 L Micro: Microbiology 11/24/22 14:27 Blood Culture (Wb) - Anticubital Right Blood Culture - Preliminary No growth in 48 hours. 11/24/22 14:00 Blood Culture (Wb) - Anticubital Right Blood Culture - Preliminary No growth in 48 hours. 11/24/22 23:00 Stool Stool Lactoferrin - Final 11/24/22 23:00 Stool Enteric Bacteriology - Final 11/24/22 23:00 Stool C. difficile DNA Amplification - Final Radiography Diagnostic Testing: Radiology Impression Gallbladder Ultrasound 11/24/22 15:58 IMPRESSION: Enlarged fatty infiltrated liver. Findings which may be consistent with acute cholecystitis. Cannot exclude tiny nonshadowing stone within the gallbladder neck HIDA scan would be helpful for further evaluation. Other findings as above Electronically Signed: Fidencio Dempsey MD at 17:13 EDT , Abdomen CT 11/24/22 21:41 IMPRESSION: Cholelithiasis with findings of mild cholecystitis, as noted on the preceding ultrasound. Findings of a mild colitis, probably related affecting the transverse colon. No pneumatosis or extraluminal air. No abscess or findings of small bowel obstruction. Electronically Signed: Mario Vences MD at 2:08 EDT , Physical Exam Const alert, oriented x3, no apparent distress and well nourished; Negative for average body habitus Constitutional Narrative: Overweight, older, white female, sitting up in bed, appears comfortable and nontoxic, very pleasant HEENT head/scalp atraumatic and moist oral mucous membranes HEENT Narrative: Mallampati 2-3, no thrush Head and Scalp: normocephalic Eyes PERRL and EOMs intact bilaterally Eyes Narrative: Conjunctiva are pale bilaterally, no scleral icterus Neck no lymphadenopathy, supple and no JVD Neck Narrative: Trachea midline, no thyroid enlargement Resp normal respiratory effort, no retractions, no use of accessory muscles and clear to auscultation bilaterally Auscultation: Negative for rales, rhonchi or wheezes Cardio regular rate, regular rhythm, S1 normal heart sound, S2 normal heart sound, no murmurs, no rub, no gallops and no clicks GI normal to inspection, nondistended, normoactive bowel sounds and soft to palpation GI Narrative: Tenderness noted in epigastrium and right upper quadrant Extremity no clubbing, cyanosis or edema Extremity Narrative: Pedal pulses are 2+, patient with limited mobility left lower extremity due to hip Skin skin turgor normal, no jaundice, no petechiae and no mottling Skin Narrative: Right tunneled dialysis catheter in place with dressing that appears to be clean dry and intact at this time, scattered ecchymosis, no petechiae or purpura noted Neuro oriented x3, CN's II-XII intact bilaterally and no focal motor deficits Neuro Narrative: Significant generalized weakness with decreased ability move left lower extremity due to recent hip issues Speech: speech normal Psych affect normal Psych Narrative: Very pleasant and appropriately interactive Assessment & Plan Assessment/Plan (1) Acute renal failure: (2) Hyperbilirubinemia: (3) DIC (disseminated intravascular coagulation): (4) Anemia: (5) Colitis: (6) Leukocytosis: PLAN: Plan Acute DIC -No current signs of acute hemorrhage -Patient with worsening thrombocytopenia -Coags obtained and found to be markedly elevated -Fibrin split products/fibrinogen/D-dimer ordered and fibrinogen found to be low with an elevated D-dimer -Patient with elevated direct bilirubin and normal indirect -We will transfuse 5 units of FFP to correct -Oncology consultation--> discussed with Dr. De La Garza Acute thrombocytopenia -Platelet count was normal in early October with her first abnormal lab being on 10/31/2022 -Trending down since then -Suspect DIC -No schistocytes noted on peripheral smear preliminary -Coags elevated -ADAMTS 13 pending--> very low suspicion for TTP at this point -HIT antibody pending as patient had been receiving heparin with dialysis -No need for current platelet transfusion -Oncology consultation pending-discussed with Dr. De La Garza Acute on chronic anemia -Baseline hemoglobin until October was between 11 and 12 -Since October hemoglobin has been between 8.5 and 9.5 -6.9 this morning -No obvious signs of acute bleeding at this time -Transfuse 1 unit packed red blood cells -Check guaiac stool -Patient with normal indirect bilirubin and elevated direct bilirubin -Haptoglobin pending -LDH is elevated -Continue iron supplementation -GI is consulted Elevated alk phos/bilirubin -Alk phos is dramatically elevated and GI is concerned that there may be some biliary pathology however does not think acute cholecystitis is the problem -We will check MRCP -GI is consulted/general surgery is following -Autoimmune work-up pending Acute colitis -CT shows mild colitis of colon -Autoimmune work-up is pending -Could be ischemic with DIC -Continue to monitor Diarrhea -C. difficile and enteric panel are negative -Autoimmune work-up pending -GI is following Left hip osteoarthritis status post prosthetic joint infection -Nonweightbearing on left lower extremity -May need to get PT/OT involvement -Slipped antibiotic spacer in place -Follows with Dr. Frances Parkinson's disease -Continue carbidopa levodopa History of rheumatoid arthritis -Patient had previously been on methotrexate/oxy chloroquine/folic acid -All medications are currently on hold due to infection Hyperlipidemia -Continue statin Hypothyroidism -Continue levothyroxine Depression -Continue citalopram -Continue olanzapine GERD -Continue PPI DVT prophylaxis -On hold due to acute anemia -SCDs CODE STATUS -Full code Charges/Coding Visit Charges Inpatient E&M: 94284 Subs Hosp L3
--- NOTE | 2022-11-25 16:58 | EX.PCM.CON.G ---
HPI Consult Data Date of Consult: 11/25/22 HPI Narrative Reason for Consultation: Abnormal liver test HPI Narrative: DANDRE PERAZA, is a 72 y/o F with past medical history of IBS, Hypothyroidism, DEIDRE, Obesity, GERD, Anxiety and Depression/Schizophrenia who presents to the [facility] ED on due to abnormal labs that showed leukocytosis that was obtained by her infectious disease doctor a few days ago. Patient reports that she had a left hip fracture that was repaired by Dr. Frances 09/14/22. On 10/08/2022 she reported to the emergency department due to concerns for an infection in her left hip. She was found to have an abscess in that site and was transferred to [facility] where they placed a antibiotic spacer and she was ultimately discharged to [facility]. She is unsure what antibiotics that she has been on but she reports that over the past month she has had generalized abdominal pain, nausea, and vomiting. She reports that every time she eats she vomits. She reports that the antibiotic she was placed on caused her to go into kidney failure. She is now on hemodialysis. She reports that she is having several bouts of [id number] loose stool daily for the past month. [facility] Medical History Anxiety and depression Arthritis Cataracts, bilateral CHI (closed head injury) Chronic anemia GERD (gastroesophageal reflux disease) Hemorrhoids Hypothyroidism IBS (irritable bowel syndrome) Obesity (BMI 30.0-34.9) Osteoarthritis Parkinson disease Rheumatoid arthritis Schizophrenia Home Medications pravastatin 40 mg tablet 40 mg PO QHS CHOLESTEROL 03/22/17 [History Last Taken 09/12/22] carbidopa 25 mg-levodopa 100 mg tablet 1 tab PO TID parkinsons 09/13/22 [History Last Taken 09/12/22] citalopram 40 mg tablet 20 mg PO DAILY DEPRESSION 09/13/22 [History Last Taken 09/12/22] folic acid 1 mg tablet 2 mg PO DAILY SUPPLEMENT 09/13/22 [History Last Taken 09/12/22] hydroxychloroquine 200 mg tablet 400 mg PO DAILY RHEUMATOID ARTHRITIS 09/13/22 [History Last Taken 09/12/22] levothyroxine 75 mcg tablet 75 mcg PO DAILY THYROID 09/13/22 [History Last Taken 09/12/22] methotrexate sodium 2.5 mg tablet 17.5 mg PO WE immunosupressive 09/13/22 [History Last Taken 09/07/22] olanzapine 7.5 mg tablet 7.5 mg PO QHS MOOD 09/13/22 [History Last Taken 09/12/22] omeprazole 40 mg capsule,delayed release 40 mg PO DAILY ACID REFLUX 09/13/22 [History Last Taken 09/12/22] potassium chloride 20 mEq tablet,extended release(part/cryst) 20 meq PO BID SUPPLEMENT 09/13/22 [History Last Taken 09/12/22] acetaminophen 500 mg tablet 1,000 mg (2 x 500 mg) PO Q6H PRN PRN Pain Score 1-3 #0 tabs 09/28/22 [Rx Last Taken Unknown] metoclopramide HCl 10 mg tablet (Reglan) 10 mg PO BID PRN PRN nausea and vomiting #14 tabs 11/19/22 [Rx Last Taken Unknown] ferrous sulfate 325 mg (65 mg iron) tablet 325 mg PO DAILY supplimentation 11/24/22 [History Last Taken Unknown] loperamide 2 mg capsule 2 mg PO PRN loose stool 11/24/22 [History Last Taken Unknown] ondansetron 4 mg disintegrating tablet 4 mg PO Q6H PRN nausea and vomiting 11/24/22 [History Last Taken Unknown] oxycodone 5 mg tablet 5 mg PO Q6H PRN Pain Score 4-10 11/24/22 [History Last Taken Unknown] Allergy/AdvReac Type Severity Reaction Status Date / Time linaclotide [From Linzess] Allergy Mild chest Verified 09/14/22 14:13 tightness histamine phosphate Allergy Unknown Verified 09/14/22 14:13 [From Histatrol] Family History Mother Heart disease Father Heart disease Brother Heart disease Surgical History H/O colonoscopy with polypectomy History of hip surgery History of knee replacement History of tonsillectomy and adenoidectomy History of tubal ligation Social History household members: spouse Smoking Status: Never smoker alcohol intake: never substance use type: does not use what type of physical activity do you participate in: walking frequency: 1-2 times per week ROS ROS Narrative Negative except above Physical Exam Const alert, oriented x3 and no apparent distress General Appearance: cooperative and comfortable Orientation / Consciousness: awake Exam Limitations: no limitations Nutritional Appearance: overweight HEENT normocephalic, nasal mucous membranes and turbinates normal and moist oral mucous membranes Head and Scalp: normal to inspection Face and Sinus: normal facial exam Eyes PERRL Extremity normal to inspection Extremity Narrative: No petechiae Lab / Micro Data 11/25/22 16:58 11/25/22 06:10 Labs: Laboratory Results - last 24 hr 11/25/22 06:10: WBC 12.2 H, RBC 2.35 L, Hgb 6.9 L, Hct 21.6 L, MCV 91.9, MCH 29.4, MCHC 31.9 L, RDW Std Deviation 64.1 H, RDW Coeff of Edwar 19.4 H, Plt Count 33 L*, MPV TNP, Immature Gran % (Auto) 1.500 H, Neut % (Auto) 55.5, Lymph % (Auto) 22.0, [place] % (Auto) 19.9 H, Eos % (Auto) 0.9, Baso % (Auto) 0.2, Absolute Neuts (auto) 6.8, Absolute Lymphs (auto) 2.69, Nucleated RBC % 0.2, Diff Path Review Reviewed, Platelet Estimate MOD DEC, Immature Plt Fraction 22.1 H, Hypochromasia 1+, Anisocytosis RARE, Retic Count 2.72 H, Immature Retic Fraction 23.50 H, Retic Hgb Equivalent 33.9, PT 31.3 H, INR 3.0, APTT 60.4 H, Fibrinogen 102 L, D-Dimer Quant (PE/DVT) 1.43 H*, Sodium 137, Potassium 3.8, Chloride 107, Carbon Dioxide 25.0, Anion Gap 5, BUN 15, Creatinine 1.53 H, Estim Creat Clear Calc 26.69, Est GFR (MDRD) Af Amer 43 L, Est GFR (MDRD) Non-Af 35 L, BUN/Creatinine Ratio 9.8 L, Glucose 65 L, Calcium 7.4 L, Total Bilirubin 2.50 H, AST 177 H, ALT 29, Alkaline Phosphatase 743 H, Total Protein 4.3 L, Albumin 1.4 L, Globulin 2.9, Albumin/Globulin Ratio 0.5 L 11/25/22 09:25: Total Bilirubin 2.60 H, Direct Bilirubin 2.09 H, Indirect Bilirubin 0.50, Lactate Dehydrogenase 363 H, Blood Type O POSITIVE, Antibody Screen NEGATIVE, Crossmatch See Detail 11/25/22 15:09: Hgb 8.9 L, Hct 28.5 L Micro: Microbiology 11/24/22 14:27 Blood Culture (Wb) - Anticubital Right Blood Culture - Preliminary No growth in 48 hours. 11/24/22 14:00 Blood Culture (Wb) - Anticubital Right Blood Culture - Preliminary No growth in 48 hours. 11/24/22 23:00 Stool Stool Lactoferrin - Final 11/24/22 23:00 Stool Enteric Bacteriology - Final 11/24/22 23:00 Stool C. difficile DNA Amplification - Final Radiology Impression Gallbladder Ultrasound 11/24/22 15:58 IMPRESSION: Enlarged fatty infiltrated liver. Findings which may be consistent with acute cholecystitis. Cannot exclude tiny nonshadowing stone within the gallbladder neck HIDA scan would be helpful for further evaluation. Other findings as above Electronically Signed: Fidencio Dempsey MD at 17:13 EDT , Abdomen CT 11/24/22 21:41 IMPRESSION: Cholelithiasis with findings of mild cholecystitis, as noted on the preceding ultrasound. Findings of a mild colitis, probably related affecting the transverse colon. No pneumatosis or extraluminal air. No abscess or findings of small bowel obstruction. Electronically Signed: Mario Vences MD at 2:08 EDT , Assessment & Plan Assessment/Plan (1) Colitis: (2) Anemia: (3) DIC (disseminated intravascular coagulation): (4) Hyperbilirubinemia: PLAN: Plan 72 y/o F with past medical history of IBS, Hypothyroidism, DEIDRE, Obesity, GERD, Anxiety and Depression/Schizophrenia with current diagnosis of DIC, cholestatic jaundice with transaminitis and colitis. Differential diagnosis for the colitis is ulcerative colitis, ischemic colitis. The spectrum of hypercoagulable states associated with ulcerative colitis varies from mild to severe. Although disseminated intravascular coagulation associated with ulcerative colitis is usually related to septicemia, toxic megacolon or surgery. She should undergo colonoscopy in the future to see if she has biopsy-proven ulcerative colitis or ischemic colitis. Particularly ischemic colitis will spare the rectum. I would not give her steroids at this time such as prednisone. However I would give her budesonide and mesalamine. For her cholestatic hepatitis I would get an MRCP to look for signs of primary sclerosing cholangitis as that is associated with ulcerative colitis. I will also check LIV and anti-smooth muscle antibody for autoimmune hepatitis. I think is a high possibility that she has some level of ischemic hepatitis which should get better by itself. However she does have a high alkaline phosphatase which is very sensitive for hepatobiliary disease. Charges/Coding Visit Charges Inpatient E&M: 17476 Init Hosp L3
[2022-11-25 17:12] LABS: Hematocrit 25.9 % (37-47); Hemoglobin 8.3 g/dL (12.0-15.0); POSITIVE COUNT YES
--- NOTE | 2022-11-25 17:12 | PCM.CONS.GEN ---
Assessment & Plan Assessment/Plan (1) Anemia: (2) DIC (disseminated intravascular coagulation): PLAN: Plan Labs appear c/w mild DIC. she does not appear septic, but warrants support with FFP and platelets. transfuse platelets if drop below 10, or if bleeding. will follow coags at [facility] daily. other labs ordered, will follow for results. HPI Consult Data Date of Consult: 11/25/22 HPI Narrative Reason for Consultation: thrombocytopenia HPI Narrative: DANDRE PERAZA, is a 72 F who presents with evidence acute cholecystitis, recent history CARMENZA, diarhhea x 1 month. in H noted to have progressive thrombocytopenia, prolonged PT/PTT/ she feels ok, notes no bleeding. [facility] Medical History Anxiety and depression Arthritis Cataracts, bilateral CHI (closed head injury) Chronic anemia GERD (gastroesophageal reflux disease) Hemorrhoids Hypothyroidism IBS (irritable bowel syndrome) Obesity (BMI 30.0-34.9) Osteoarthritis Parkinson disease Rheumatoid arthritis Schizophrenia Home Medications pravastatin 40 mg tablet 40 mg PO QHS CHOLESTEROL 03/22/17 [History Last Taken 09/12/22] carbidopa 25 mg-levodopa 100 mg tablet 1 tab PO TID parkinsons 09/13/22 [History Last Taken 09/12/22] citalopram 40 mg tablet 20 mg PO DAILY DEPRESSION 09/13/22 [History Last Taken 09/12/22] folic acid 1 mg tablet 2 mg PO DAILY SUPPLEMENT 09/13/22 [History Last Taken 09/12/22] hydroxychloroquine 200 mg tablet 400 mg PO DAILY RHEUMATOID ARTHRITIS 09/13/22 [History Last Taken 09/12/22] levothyroxine 75 mcg tablet 75 mcg PO DAILY THYROID 09/13/22 [History Last Taken 09/12/22] methotrexate sodium 2.5 mg tablet 17.5 mg PO WE immunosupressive 09/13/22 [History Last Taken 09/07/22] olanzapine 7.5 mg tablet 7.5 mg PO QHS MOOD 09/13/22 [History Last Taken 09/12/22] omeprazole 40 mg capsule,delayed release 40 mg PO DAILY ACID REFLUX 09/13/22 [History Last Taken 09/12/22] potassium chloride 20 mEq tablet,extended release(part/cryst) 20 meq PO BID SUPPLEMENT 09/13/22 [History Last Taken 09/12/22] acetaminophen 500 mg tablet 1,000 mg (2 x 500 mg) PO Q6H PRN PRN Pain Score 1-3 #0 tabs 09/28/22 [Rx Last Taken Unknown] metoclopramide HCl 10 mg tablet (Reglan) 10 mg PO BID PRN PRN nausea and vomiting #14 tabs 11/19/22 [Rx Last Taken Unknown] ferrous sulfate 325 mg (65 mg iron) tablet 325 mg PO DAILY supplimentation 11/24/22 [History Last Taken Unknown] loperamide 2 mg capsule 2 mg PO PRN loose stool 11/24/22 [History Last Taken Unknown] ondansetron 4 mg disintegrating tablet 4 mg PO Q6H PRN nausea and vomiting 11/24/22 [History Last Taken Unknown] oxycodone 5 mg tablet 5 mg PO Q6H PRN Pain Score 4-10 11/24/22 [History Last Taken Unknown] Allergy/AdvReac Type Severity Reaction Status Date / Time linaclotide [From Linzess] Allergy Mild chest Verified 09/14/22 14:13 tightness histamine phosphate Allergy Unknown Verified 09/14/22 14:13 [From Histatrol] Family History Mother Heart disease Father Heart disease Brother Heart disease Surgical History H/O colonoscopy with polypectomy History of hip surgery History of knee replacement History of tonsillectomy and adenoidectomy History of tubal ligation Social History household members: spouse Smoking Status: Never smoker alcohol intake: never substance use type: does not use what type of physical activity do you participate in: walking frequency: 1-2 times per week Physical Exam Const alert, oriented x3 and no apparent distress General Appearance: cooperative and comfortable Orientation / Consciousness: awake Exam Limitations: no limitations Nutritional Appearance: overweight HEENT normocephalic, nasal mucous membranes and turbinates normal and moist oral mucous membranes Head and Scalp: normal to inspection Face and Sinus: normal facial exam Eyes PERRL Extremity normal to inspection Extremity Narrative: No petechiae Lab / Micro Data 11/25/22 15:09 11/25/22 06:10 Labs: Laboratory Results - last 24 hr 11/25/22 06:10: WBC 12.2 H, RBC 2.35 L, Hgb 6.9 L, Hct 21.6 L, MCV 91.9, MCH 29.4, MCHC 31.9 L, RDW Std Deviation 64.1 H, RDW Coeff of Edwar 19.4 H, Plt Count 33 L*, MPV TNP, Immature Gran % (Auto) 1.500 H, Neut % (Auto) 55.5, Lymph % (Auto) 22.0, [place] % (Auto) 19.9 H, Eos % (Auto) 0.9, Baso % (Auto) 0.2, Absolute Neuts (auto) 6.8, Absolute Lymphs (auto) 2.69, Nucleated RBC % 0.2, Diff Path Review Reviewed, Platelet Estimate MOD DEC, Immature Plt Fraction 22.1 H, Hypochromasia 1+, Anisocytosis RARE, Retic Count 2.72 H, Immature Retic Fraction 23.50 H, Retic Hgb Equivalent 33.9, PT 31.3 H, INR 3.0, APTT 60.4 H, Fibrinogen 102 L, D-Dimer Quant (PE/DVT) 1.43 H*, Sodium 137, Potassium 3.8, Chloride 107, Carbon Dioxide 25.0, Anion Gap 5, BUN 15, Creatinine 1.53 H, Estim Creat Clear Calc 26.69, Est GFR (MDRD) Af Amer 43 L, Est GFR (MDRD) Non-Af 35 L, BUN/Creatinine Ratio 9.8 L, Glucose 65 L, Calcium 7.4 L, Total Bilirubin 2.50 H, AST 177 H, ALT 29, Alkaline Phosphatase 743 H, Total Protein 4.3 L, Albumin 1.4 L, Globulin 2.9, Albumin/Globulin Ratio 0.5 L 11/25/22 09:25: Total Bilirubin 2.60 H, Direct Bilirubin 2.09 H, Indirect Bilirubin 0.50, Lactate Dehydrogenase 363 H, Blood Type O POSITIVE, Antibody Screen NEGATIVE, Crossmatch See Detail 11/25/22 15:09: Hgb 8.9 L, Hct 28.5 L Micro: Microbiology 11/24/22 14:27 Blood Culture (Wb) - Anticubital Right Blood Culture - Preliminary No growth in 48 hours. 11/24/22 14:00 Blood Culture (Wb) - Anticubital Right Blood Culture - Preliminary No growth in 48 hours. 11/24/22 23:00 Stool Stool Lactoferrin - Final 11/24/22 23:00 Stool Enteric Bacteriology - Final 11/24/22 23:00 Stool C. difficile DNA Amplification - Final Radiology Impression Gallbladder Ultrasound 11/24/22 15:58 IMPRESSION: Enlarged fatty infiltrated liver. Findings which may be consistent with acute cholecystitis. Cannot exclude tiny nonshadowing stone within the gallbladder neck HIDA scan would be helpful for further evaluation. Other findings as above Electronically Signed: Fidencio Dempsey MD at 17:13 EDT , Abdomen CT 11/24/22 21:41 IMPRESSION: Cholelithiasis with findings of mild cholecystitis, as noted on the preceding ultrasound. Findings of a mild colitis, probably related affecting the transverse colon. No pneumatosis or extraluminal air. No abscess or findings of small bowel obstruction. Electronically Signed: Mario Vences MD at 2:08 EDT ,
[2022-11-25 18:20] LABS: Erythrocyte Sedimentation Rate 1 mm/hr (0-30)
[2022-11-25] MEDS: Budesonide 3 MG CAPSULE.EC 9 MG PO (20:59)
[2022-11-25] MEDS: Pravastatin 40 MG Tablet PO (20:59)
[2022-11-25] MEDS: Acetaminophen 500 MG Tablet 1000 MG PO (21:00)
[2022-11-25] MEDS: OLANZapine 2.5 MG Tablet 7.5 MG PO (21:00)
[2022-11-25 23:58] LABS: Hemoglobin 7.6 g/dL (12.0-15.0); POSITIVE COUNT YES
[2022-11-26] VITALS (8 sets, daily range): BP systolic 132–154; BP diastolic 59–80; PULSE 56–75; RESP 18; TEMP 36.3–36.6; O2SAT 95–99
[2022-11-26 00:07] LABS: CPK Total, Creatine Kinase 89 U/L (26-192); LDH 336 U/L (84-246)
[2022-11-26] MEDS: 0.9% Normal Saline 1,000 ML 75 ML IV ×2 (00:54→15:33)
[2022-11-26 05:07] LABS: Haptoglobin 49 mg/dL (42-346)
[2022-11-26] MEDS: Carbidopa/Levodopa 25/100 Tablet PO ×3 (05:36→15:34)
[2022-11-26] MEDS: Levothyroxine 75 MCG Tablet PO (05:36)
[2022-11-26 07:28] LABS: Hematocrit 25.9 % (37-47); Hemoglobin 8.2 g/dL (12.0-15.0); Mean Corp Hgb Conc 31.7 g/dL (32-36); Mean Corpuscular Hgb 28.8 pg (27.0-32.0); Mean Corpuscular Volume 90.9 fL (81-99); POSITIVE COUNT YES; RBC Distribution Width CV 19.7 % (11.6-14.6); RBC Distribution Width SD 63.4 fl (35.1-43.9); Red Blood Count 2.85 M/mm3 (4.2-5.4); White Blood Count 6.3 K/mm3 (4.4-11.0)
[2022-11-26 07:37] LABS: International Normalized Ratio 1.2; Partial Thromboplast Time 41.4 Seconds (24.1-36.2); Prothrombin Time (Protime)PT. 14.9 SECONDS (11.7-14.9)
[2022-11-26 07:46] LABS: ALB/GLOB Ratio 0.6 RATIO (0.9-2.4); AST(SGOT) 161 U/L (15-37); Alanine Aminotransfer ALT/SGPT 21 U/L (13-56); Albumin, Serum 2.2 g/dL (3.2-5.0); Alkaline Phosphatase 765 U/L (45-117); Anion Gap 7 (5-15); BUN 11 mg/dL (7-18); BUN/Creat Ratio 8.5 RATIO (10-20); Calcium,Total 7.7 mg/dL (8.5-10.1); Chloride 106 mmol/L (98-107); Creatinine, Serum 1.29 mg/dL (0.55-1.02); EST Glomerular Filtration Rate 43 mL/min (>60); Est Glom Filt Rate - Afr Amer 52 mL/min (>60); Estimated Creatinine Clearance 31.65 ml/min; Globulin 3.6 g/dL (2.2-4.2); Glucose 68 mg/dL (74-106); Potassium 2.8 mmol/L (3.5-5.1); Protein, Total 5.8 g/dL (6.4-8.2); Sodium Level 140 mmol/L (136-145)
--- NOTE | 2022-11-26 08:30 | CASEMGMT ---
RN CM NOTE: Dr Denson made aware dtr has questions re: items she saw on pt portal before discharge arrangements are made. Lisa SOLANO RN CM
[2022-11-26] MEDS: Citalopram 20 MG Tablet PO (08:41)
[2022-11-26] MEDS: Budesonide 3 MG CAPSULE.EC 9 MG PO (08:41)
[2022-11-26] MEDS: Pantoprazole Sodium 40 MG Tablet PO (08:41)
[2022-11-26] MEDS: Mesalamine 1.2 GM Tablet 2.4 GM PO (08:41)
[2022-11-26] MEDS: Menthol/Lanolin/Calamine/Znox 113 GM Tube 1 APPLIC TOPICAL ×2 (08:42→23:23)
[2022-11-26 09:53] LABS: Platelet Count 33 K/mm3 (150-450)
--- NOTE | 2022-11-26 10:30 | MRI_ITS ---
STUDY: MR CHOLANGIOPANCREATOGRAPHY (MRCP) REASON FOR EXAM: Female, 72 years old. abd pain, n/v, cholelithiasis TECHNIQUE: Standard MRCP technique was utilized. COMPARISON: None. FINDINGS: Gall Bladder: Wall thickening with pericholecystic fluid likely secondary to ascites. Cystic duct: Normal with no demonstrated fixed filling defect. Intrahepatic ducts: Normal visualized intrahepatic ducts with no demonstrated fixed filling defect, dilation or stricture. Common hepatic duct: Normal with no demonstrated fixed filling defect, dilation or stricture. Common bile duct: Normal with no demonstrated fixed filling defect, dilation or stricture. Pancreatic duct: Normal with no demonstrated fixed filling defect, dilation or stricture. MRI/MRCP Abdomen without Contrast IMPRESSION: Normal MR Cholangiopancreatography (MRCP). Electronically Signed: Ruperto Wyatt MD at 19:51 EDT ,
--- NOTE | 2022-11-26 11:11 | PN.SURG_ITS ---
Subjective Subjective Patient was seen and examined during AM rounds. She is found resting quietly in bed. She confirms that she is tolerating her liquid diet without nausea or vomiting. She states that she still has some abdominal discomfort. She reports a bowel movement this morning, but was unable to comment further on its charac ter. Objective Data Objective Data Vital Signs: Vital Signs Temp Pulse Resp BP Pulse Ox O2 Del Method O2 Flow Rate 97.8 F 68 18 147/64 H 99 Nasal Cannula 2 11/26/22 08:32 11/26/22 08:32 11/26/22 08:32 11/26/22 08:32 11/26/22 08:32 11/26/22 08:36 11/26/22 08:36 Oxygen Flow Rate (L/min) 2 Oxygen Delivery Method Nasal Cannula Weight: 165 lb 9.074 oz Body Mass Index (BMI) 29.3 Intake & Output: Intake and Output for Last 24 Hours 11/24/22 11/25/22 11/26/22 23:59 23:59 23:59 Intake Total 50 / 50 2270 / 2270 300 / 300 Output Total 1500 / 1500 Balance 50 / 50 2270 / 2270 -1200 / -1200 Lab / Micro Data 11/26/22 07:10 11/26/22 07:10 Labs: Laboratory Results - last 24 hr 11/25/22 06:10: Haptoglobin 49 11/25/22 09:25: Lactate Dehydrogenase 363 H, Blood Type O POSITIVE, Antibody Screen NEGATIVE, Crossmatch See Detail 11/25/22 15:09: Hgb 8.9 L, Hct 28.5 L, ESR 1 11/25/22 16:58: Hgb 8.3 L, Hct 25.9 L 11/25/22 23:30: Hgb 7.6 L, Hct 24.0 L, Lactate Dehydrogenase 336 H, Total Creatine Kinase 89, C-React Prot Ext Range 14.40 H 11/26/22 07:10: WBC 6.3, RBC 2.85 L, Hgb 8.2 L, Hct 25.9 L, MCV 90.9, MCH 28.8, MCHC 31.7 L, RDW Std Deviation 63.4 H, RDW Coeff of Edwar 19.7 H, Plt Count 33 L*, PT 14.9, INR 1.2, APTT 41.4 H, Sodium 140, Potassium 2.8 L, Chloride 106, Carbon Dioxide 27.0, Anion Gap 7, BUN 11, Creatinine 1.29 H, Estim Creat Clear Calc 31 .65, Est GFR (MDRD) Af Amer 52 L, Est GFR (MDRD) Non-Af 43 L, BUN/Creatinine Ratio 8.5 L, Glucose 68 L, Calcium 7.7 L, Total Bilirubin 3.70 H, AST 161 H, ALT 21, Alkaline Phosphatase 765 H, Total Protein 5.8 L, Albumin 2.2 L, Globulin 3.6, Albumin/Globulin Ratio 0.6 L Micro: Microbiology 11/26/22 05:35 Stool Stool Occult Blood (BAILEY) - Final Occult Blood Positive 11/24/22 14:27 Blood Culture (Wb) - Anticubital Right Bacteria Detection (PCR) - Final Staphylococcus epidermidis mecA Resistance Marker 11/24/22 14:27 Blood Culture (Wb) - Anticubital Right Blood Culture - Preliminary Staphylococcus epidermidis 11/24/22 14:00 Blood Culture (Wb) - Anticubital Right Blood Culture - Preliminary No growth in 48 hours. 11/24/22 23:00 Stool Stool Lactoferrin - Final 11/24/22 23:00 Stool Enteric Bacteriology - Final 11/24/22 23:00 Stool C. difficile DNA Amplification - Final Physical Exam Const oriented x3 and no apparent distress Resp normal respiratory effort GI GI Narrative: Mildly distended, slight bruising across right lower quadrant. Soft and diffusely mildly tender to palpation. Negative Ventura sign (patient actually states her abdominal tenderness is less in the far right upper quadrant). Assessment & Plan Assessment/Plan (1) Acute calculous cholecystitis: PLAN: This is a 72-year-old female who remains under evaluation for possible cholecystitis. In my evaluation of patient's abdominal exam, there is no positive Ventura sign and patient actually reports decreased tenderness in the vicinity of the gallbladder. Therefore, my suspicion for acute cholecystitis is low and yet I acknowledge patient may have some element of chronic cholecystitis to better explain her imaging findings. Derangements of her LFTs, bilirubin, and alkaline phosphatase remain under evaluation with gastroenterology, but there is some concern for possible ischemic hepatitis. Given patient's hematologic abnormalities, surgery is not safe at this point and with her exam today I am unconvinced about the need for any urgent intervention. (2) Colitis: PLAN: Patient's diffuse abdominal tenderness is more in keeping with her diagnosis of colitis. She also is reporting looser bowel movements. Echo recommendations from gastroenterology that further evaluation of this issue is in order and patient should undergo colonoscopy. (3) Anemia: PLAN: Patient remains anemic today, but is unable to comment as to whether or not she is experiencing any melena or hematochezia. Mild DIC suspected. Heme- onc consult ongoing. (4) Thrombocytopenia: PLAN: Patient remains thrombocytopenic with platelet count of 30,000. Heparin- induced thrombocytopenia is being considered. Patient remains unsafe for invasive procedure below platelet count of 50,000. We will continue to follow evaluation by hematology oncology. Charges/Coding Visit Charges Inpatient E&M: 04399 Subs Hosp L2
[2022-11-26] MEDS: Ferrous Sulfate 325 MG Tablet PO (11:38)
--- NOTE | 2022-11-26 12:55 | PN.HOSP_ITS ---
Reason for Visit Reason for Visit: Nausea and vomiting Subjective Subjective Patient states she is still having some abdominal pain however overall improved. Would like to try some food. I discussed with her trying some clear liquids and she was agreeable. Daughter at the bedside and had discussion with her as well with regards to diagnosis and overall plan. Objective Data Objective Data Vital Signs: Vital Signs Temp Pulse Resp BP Pulse Ox O2 Del Method O2 Flow Rate 97.8 F 68 18 147/64 H 99 Nasal Cannula 2 11/26/22 08:32 11/26/22 08:32 11/26/22 08:32 11/26/22 08:32 11/26/22 08:32 11/26/22 08:36 11/26/22 08:36 Oxygen Flow Rate (L/min) 2 Oxygen Delivery Method Nasal Cannula Weight: 75.1 kg Body Mass Index (BMI) 29.3 Intake & Output: Intake and Output for Last 24 Hours 11/24/22 11/25/22 11/26/22 23:59 23:59 23:59 Intake Total 50 / 50 2270 / 2270 540 / 540 Output Total 1500 / 1500 Balance 50 / 50 2270 / 2270 -960 / -960 Lab / Micro Data 11/26/22 07:10 11/26/22 07:10 Labs: Laboratory Results - last 24 hr 11/25/22 06:10: Haptoglobin 49 11/25/22 09:25: Crossmatch See Detail 11/25/22 15:09: Hgb 8.9 L, Hct 28.5 L, ESR 1 11/25/22 16:58: Hgb 8.3 L, Hct 25.9 L 11/25/22 23:30: Hgb 7.6 L, Hct 24.0 L, Lactate Dehydrogenase 336 H, Total Creatine Kinase 89, C-React Prot Ext Range 14.40 H 11/26/22 07:10: WBC 6.3, RBC 2.85 L, Hgb 8.2 L, Hct 25.9 L, MCV 90.9, MCH 28.8, MCHC 31.7 L, RDW Std Deviation 63.4 H, RDW Coeff of Edwar 19.7 H, Plt Count 33 L*, Diff Path Review September, PT 14.9, INR 1.2, APTT 41.4 H, Sodium 140, Potassium 2.8 L, Chloride 106, Carbon Dioxide 27.0, Anion Gap 7, BUN 11, Creatinine 1.29 H , Estim Creat Clear Calc 31.65, Est GFR (MDRD) Af Amer 52 L, Est GFR (MDRD) Non- Af 43 L, BUN/Creatinine Ratio 8.5 L, Glucose 68 L, Calcium 7.7 L, Total Bilirubin 3.70 H, AST 161 H, ALT 21, Alkaline Phosphatase 765 H, Total Protein 5.8 L, Albumin 2.2 L, Globulin 3.6, Albumin/Globulin Ratio 0.6 L Micro: Microbiology 11/26/22 05:35 Stool Stool Occult Blood (BAILEY) - Final Occult Blood Positive 11/24/22 14:27 Blood Culture (Wb) - Anticubital Right Bacteria Detection (PCR) - Final Staphylococcus epidermidis mecA Resistance Marker 11/24/22 14:27 Blood Culture (Wb) - Anticubital Right Blood Culture - Preliminary Staphylococcus epidermidis 11/24/22 14:00 Blood Culture (Wb) - Anticubital Right Blood Culture - Preliminary No growth in 48 hours. 11/24/22 23:00 Stool Stool Lactoferrin - Final 11/24/22 23:00 Stool Enteric Bacteriology - Final 11/24/22 23:00 Stool C. difficile DNA Amplification - Final Physical Exam Const alert, oriented x3, no apparent distress and well nourished; Negative for average body habitus Constitutional Narrative: Overweight, older, white female, sitting up in bed, appears comfortable and nontoxic, very pleasant HEENT head/scalp atraumatic and moist oral mucous membranes HEENT Narrative: Mallampati 3, no thrush Head and Scalp: normocephalic Resp normal respiratory effort, no retractions, no use of accessory muscles and clear to auscultation bilaterally Auscultation: Negative for rales, rhonchi or wheezes Cardio regular rate, regular rhythm, S1 normal heart sound, S2 normal heart sound, no murmurs, no rub, no gallops and no clicks GI normal to inspection, nondistended, normoactive bowel sounds and soft to palpation GI Narrative: Still mild tenderness in the epigastrium and right upper quadrant but improved Extremity no clubbing, cyanosis or edema Extremity Narrative: Pedal pulses are 2+, patient with limited mobility left lower extremity due to hip Skin Skin Narrative: Right tunneled dialysis catheter in place with dressing that appears to be clean dry and intact at this time, scattered ecchymosis, no petechiae or purpura noted Neuro oriented x3 and no focal motor deficits Neuro Narrative: Significant generalized weakness with decreased ability move left lower extremity due to recent hip issues Speech: speech normal Psych affect normal Psych Narrative: Very pleasant and appropriately interactive Assessment & Plan Assessment/Plan (1) Acute renal failure: (2) Hyperbilirubinemia: (3) DIC (disseminated intravascular coagulation): (4) Anemia: (5) Colitis: (6) Leukocytosis: PLAN: Plan Acute DIC -Remains with no current signs of acute hemorrhage -Lately count stable today -INR down from 3-1.2 and PT has normalized, PTT is still slightly elevated but trending down -Fibrin split products/fibrinogen/D-dimer ordered and fibrinogen found to be low with an elevated D-dimer -Patient with elevated direct bilirubin and normal indirect -We will transfuse 5 units of FFP to correct -Oncology consultation--> discussed with Dr. De La Garza Acute thrombocytopenia secondary to DIC -Platelet count was normal in early October with her first abnormal lab being on 10/31/2022 -Suspect DIC -No schistocytes noted on peripheral smear preliminary -Coags have normalized with FFP -ADAMTS 13 pending--> very low suspicion for TTP at this point -HIT antibody pending as patient had been receiving heparin with dialysis -No need for current platelet transfusion -Oncology is following-appreciate input Hypokalemia -60 mEq p.o. potassium given -Repeat in a.m. -Check a.m. magnesium 1 of 2 blood cultures staph epi positive -Contaminant -No further investigation or treatment warranted Acute on chronic anemia -Baseline hemoglobin until October was between 11 and 12 -Since October hemoglobin has been between 8.5 and 9.5 -6.9 a.m. of 11/25/2022 and 1 unit packed red blood cells given -Hemoglobin has trended up and is currently 8.2--> seems to be stabilizing -Black stool was positive -Patient with normal indirect bilirubin and elevated direct bilirubin -Haptoglobin is normal -LDH is elevated -Continue iron supplementation -GI is following -We will need colonoscopy once DIC has resolved -Mesalamine and budesonide were initiated Elevated alk phos/bilirubin -Alk phos is trending down however still remains markedly elevated -MRCP is pending -Autoimmune work-up in progress as well -General surgery states they will do a cholecystectomy on Monday however I am not clear if this is the etiology of her current pathology and this may need to be delayed secondary to DIC Acute colitis -CT shows mild colitis of colon -Autoimmune work-up is pending -Could be ischemic with DIC -Continue to monitor -Budesonide and mesalamine initiated -GI following-appreciate input Diarrhea -C. difficile and enteric panel are negative -Autoimmune work-up pending -GI is following Left hip osteoarthritis status post prosthetic joint infection -Nonweightbearing on left lower extremity -May need to get PT/OT involvement -Slipped antibiotic spacer in place -Follows with Dr. Frances Parkinson's disease -Continue carbidopa levodopa History of rheumatoid arthritis -Patient had previously been on methotrexate/oxy chloroquine/folic acid -All medications are currently on hold due to infection Hyperlipidemia -Continue statin Hypothyroidism -Continue levothyroxine Depression -Continue citalopram -Continue olanzapine GERD -Continue PPI DVT prophylaxis -On hold due to acute anemia -SCDs CODE STATUS -Full code Charges/Coding Visit Charges Inpatient E&M: 04588 Subs Hosp L2
--- NOTE | 2022-11-26 15:04 | NURSING ---
Call from [facility] doctor oncology asking about pt blood results from today. She also wanted to speak with hospitalist today. Number to call her (Dr. Lees ) is [phone]
--- NOTE | 2022-11-26 15:24 | CON.PCM.RE_ITS ---
HPI Consult Data Date of Consult: 11/26/22 HPI Narrative Reason for Consultation: Acute on chronic renal failure HPI Narrative: DANDRE PERAZA, is a 72 F who presents [facility] Medical History Anxiety and depression Arthritis Cataracts, bilateral CHI (closed head injury) Chronic anemia GERD (gastroesophageal reflux disease) Hemorrhoids Hypothyroidism IBS (irritable bowel syndrome) Obesity (BMI 30.0-34.9) Osteoarthritis Parkinson disease Rheumatoid arthritis Schizophrenia Home Medications pravastatin 40 mg tablet 40 mg PO QHS CHOLESTEROL 03/22/17 [History Last Taken 09/12/22] carbidopa 25 mg-levodopa 100 mg tablet 1 tab PO TID parkinsons 09/13/22 [History Last Taken 09/12/22] citalopram 40 mg tablet 20 mg PO DAILY DEPRESSION 09/13/22 [History Last Taken 09/12/22] folic acid 1 mg tablet 2 mg PO DAILY SUPPLEMENT 09/13/22 [History Last Taken 09/12/22] hydroxychloroquine 200 mg tablet 400 mg PO DAILY RHEUMATOID ARTHRITIS 09/13/22 [History Last Taken 09/12/22] levothyroxine 75 mcg tablet 75 mcg PO DAILY THYROID 09/13/22 [History Last Taken 09/12/22] methotrexate sodium 2.5 mg tablet 17.5 mg PO WE immunosupressive 09/13/22 [History Last Taken 09/07/22] olanzapine 7.5 mg tablet 7.5 mg PO QHS MOOD 09/13/22 [History Last Taken 09/12/22] omeprazole 40 mg capsule,delayed release 40 mg PO DAILY ACID REFLUX 09/13/22 [History Last Taken 09/12/22] potassium chloride 20 mEq tablet,extended release(part/cryst) 20 meq PO BID SUPPLEMENT 09/13/22 [History Last Taken 09/12/22] acetaminophen 500 mg tablet 1,000 mg (2 x 500 mg) PO Q6H PRN PRN Pain Score 1-3 #0 tabs 09/28/22 [Rx Last Taken Unknown] metoclopramide HCl 10 mg tablet (Reglan) 10 mg PO BID PRN PRN nausea and v omiting #14 tabs 11/19/22 [Rx Last Taken Unknown] ferrous sulfate 325 mg (65 mg iron) tablet 325 mg PO DAILY supplimentation 11/24/22 [History Last Taken Unknown] loperamide 2 mg capsule 2 mg PO PRN loose stool 11/24/22 [History Last Taken Unknown] ondansetron 4 mg disintegrating tablet 4 mg PO Q6H PRN nausea and vomiting 11/24/22 [History Last Taken Unknown] oxycodone 5 mg tablet 5 mg PO Q6H PRN Pain Score 4-10 11/24/22 [History Last Taken Unknown] Allergy/AdvReac Type Severity Reaction Status Date / Time linaclotide [From Linzess] Allergy Mild chest Verified 09/14/22 14:13 tightness histamine phosphate Allergy Unknown Verified 09/14/22 14:13 [From Histatrol] Family History Mother Heart disease Father Heart disease Brother Heart disease Surgical History H/O colonoscopy with polypectomy History of hip surgery History of knee replacement History of tonsillectomy and adenoidectomy History of tubal ligation Social History household members: spouse Smoking Status: Never smoker alcohol intake: never substance use type: does not use what type of physical activity do you participate in: walking frequency: 1-2 times per week Lab / Micro Data 11/26/22 07:10 11/26/22 07:10 Labs: Laboratory Results - last 24 hr 11/25/22 06:10: Haptoglobin 49 11/25/22 15:09: ESR 1 11/25/22 16:58: Hgb 8.3 L, Hct 25.9 L 11/25/22 23:30: Hgb 7.6 L, Hct 24.0 L, Lactate Dehydrogenase 336 H, Total Creatine Kinase 89, C-React Prot Ext Range 14.40 H 11/26/22 07:10: WBC 6.3, RBC 2.85 L, Hgb 8.2 L, Hct 25.9 L, MCV 90.9, MCH 28.8, MCHC 31.7 L, RDW Std Deviation 63.4 H, RDW Coeff of Edwar 19.7 H, Plt Count 33 L*, Diff Path Review September, PT 14.9, INR 1.2, APTT 41.4 H, Sodium 140, Potassium 2.8 L, Chloride 106, Carbon Dioxide 27.0, Anion Gap 7, BUN 11, Creatinine 1.29 H , Estim Creat Clear Calc 31.65, Est GFR (MDRD) Af Amer 52 L, Est GFR (MDRD) Non- Af 43 L, BUN/Creatinine Ratio 8.5 L, Glucose 68 L, Calcium 7.7 L, Total Bilirubin 3.70 H, AST 161 H, ALT 21, Alkaline Phosphatase 765 H, Total Protein 5.8 L, Albumin 2.2 L, Globulin 3.6, Albumin/Globulin Ratio 0.6 L Micro: Microbiology 11/26/22 05:35 Stool Stool Occult Blood (BAILEY) - Final Occult Blood Positive 11/24/22 14:27 Blood Culture (Wb) - Anticubital Right Bacteria Detection (PCR) - Final Staphylococcus epidermidis mecA Resistance Marker 11/24/22 14:27 Blood Culture (Wb) - Anticubital Right Blood Culture - Preliminary Staphylococcus epidermidis 11/24/22 14:00 Blood Culture (Wb) - Anticubital Right Blood Culture - Preliminary No growth in 48 hours.
--- NOTE | 2022-11-26 15:26 | PN.RENAL_ITS ---
Subjective Subjective Follow-up on acute kidney injury. Kaia states that she is feeling better, she started to eat clear liquids. Denies shortness of breath, PND, orthopnea. Objective Data Objective Data Vital Signs: Vital Signs Temp Pulse Resp BP Pulse Ox O2 Del Method O2 Flow Rate 97.8 F 68 18 147/64 H 99 Nasal Cannula 2 11/26/22 08:32 11/26/22 08:32 11/26/22 08:32 11/26/22 08:32 11/26/22 08:32 11/26/22 08:36 11/26/22 08:36 Oxygen Flow Rate (L/min) 2 Oxygen Delivery Method Nasal Cannula Weight: 75.1 kg Body Mass Index (BMI) 29.3 Intake & Output: Intake and Output for Last 24 Hours 11/24/22 11/25/22 11/26/22 23:59 23:59 23:59 Intake Total 50 / 50 2270 / 2270 540 / 540 Output Total 1500 / 1500 Balance 50 / 50 2270 / 2270 -960 / -960 Lab / Micro Data Attestation: I reviewed the patient's lab results. 11/26/22 07:10 11/26/22 07:10 Labs: Laboratory Results - last 24 hr 11/25/22 06:10: Haptoglobin 49 11/25/22 15:09: ESR 1 11/25/22 16:58: Hgb 8.3 L, Hct 25.9 L 11/25/22 23:30: Hgb 7.6 L, Hct 24.0 L, Lactate Dehydrogenase 336 H, Total Creatine Kinase 89, C-React Prot Ext Range 14.40 H 11/26/22 07:10: WBC 6.3, RBC 2.85 L, Hgb 8.2 L, Hct 25.9 L, MCV 90.9, MCH 28.8, MCHC 31.7 L, RDW Std Deviation 63.4 H, RDW Coeff of Edwar 19.7 H, Plt Count 33 L*, Diff Path Review September, PT 14.9, INR 1.2, APTT 41.4 H, Sodium 140, Potassium 2.8 L, Chloride 106, Carbon Dioxide 27.0, Anion Gap 7, BUN 11, Creatinine 1.29 H , Estim Creat Clear Calc 31.65, Est GFR (MDRD) Af Amer 52 L, Est GFR (MDRD) Non- Af 43 L, BUN/Creatinine Ratio 8.5 L, Glucose 68 L, Calcium 7.7 L, Total Bilirubin 3.70 H, AST 161 H, ALT 21, Alkaline Phosphatase 765 H, Total Protein 5.8 L, Albumin 2.2 L, Globulin 3.6, Albumin/Globulin Ratio 0.6 L Micro: Microbiology 11/26/22 05:35 Stool Stool Occult Blood (BAILEY) - Final Occult Blood Positive 11/24/22 14:27 Blood Culture (Wb) - Anticubital Right Bacteria Detection (P CR) - Final Staphylococcus epidermidis mecA Resistance Marker 11/24/22 14:27 Blood Culture (Wb) - Anticubital Right Blood Culture - Preliminary Staphylococcus epidermidis 11/24/22 14:00 Blood Culture (Wb) - Anticubital Right Blood Culture - Preliminary No growth in 48 hours. 11/24/22 23:00 Stool Stool Lactoferrin - Final 11/24/22 23:00 Stool Enteric Bacteriology - Final 11/24/22 23:00 Stool C. difficile DNA Amplification - Final Physical Exam Const oriented x3 and no apparent distress HEENT normocephalic and moist oral mucous membranes Neck no lymphadenopathy GI non-tender Auscultation: normoactive bowel sounds Neuro Sensorium / Orientation: awake and alert Assessment & Plan Assessment/Plan (1) Acute renal failure: QUALIFIERS: Acute renal failure type: with acute tubular necrosis Qualified Code(s): N17.0 - Acute kidney failure with tubular necrosis PLAN: As her renal function is improving, no further intervention needed, continue monitor labs, avoid hypotension and nephrotoxins
[2022-11-26 17:35] LABS: Fibrinogen 266 mg/dl (203-444)
[2022-11-26] MEDS: OLANZapine 2.5 MG Tablet 7.5 MG PO (23:24)
[2022-11-26] MEDS: Pravastatin 40 MG Tablet PO (23:24)
[2022-11-27] VITALS (9 sets, daily range): BP systolic 106–128; BP diastolic 58–74; PULSE 62–73; RESP 18–20; TEMP 36.1–36.9; O2SAT 97–100
[2022-11-27] MEDS: 0.9% Normal Saline 1,000 ML 75 ML IV (04:46)
[2022-11-27] MEDS: Levothyroxine 75 MCG Tablet PO (04:47)
[2022-11-27] MEDS: Carbidopa/Levodopa 25/100 Tablet PO ×3 (04:51→16:28)
[2022-11-27] MEDS: Menthol/Lanolin/Calamine/Znox 113 GM Tube 1 APPLIC TOPICAL ×2 (08:26→22:56)
[2022-11-27] MEDS: Pantoprazole Sodium 40 MG Tablet PO (08:26)
[2022-11-27] MEDS: Citalopram 20 MG Tablet PO (08:26)
[2022-11-27] MEDS: Mesalamine 1.2 GM Tablet 2.4 GM PO (08:26)
[2022-11-27] MEDS: Budesonide 3 MG CAPSULE.EC 9 MG PO (08:26)
[2022-11-27 08:46] LABS: Hematocrit 27.9 % (37-47); Mean Corp Hgb Conc 32.3 g/dL (32-36); Mean Corpuscular Hgb 29.4 pg (27.0-32.0); Mean Corpuscular Volume 91.2 fL (81-99); POSITIVE COUNT YES; Platelet Count 43 K/mm3 (150-450); RBC Distribution Width CV 19.6 % (11.6-14.6); RBC Distribution Width SD 62.4 fl (35.1-43.9); Red Blood Count 3.06 M/mm3 (4.2-5.4); White Blood Count 10.7 K/mm3 (4.4-11.0)
[2022-11-27 09:10] LABS: Scan Indicated on CBC? Y/N YES- FLAGS NOTED
[2022-11-27 09:39] LABS: ALB/GLOB Ratio 0.5 RATIO (0.9-2.4); AST(SGOT) 169 U/L (15-37); Alanine Aminotransfer ALT/SGPT 22 U/L (13-56); Alkaline Phosphatase 843 U/L (45-117); Anion Gap 7 (5-15); BUN 6 mg/dL (7-18); BUN/Creat Ratio 6.1 RATIO (10-20); Calcium,Total 7.4 mg/dL (8.5-10.1); Chloride 104 mmol/L (98-107); Creatinine, Serum 0.99 mg/dL (0.55-1.02); EST Glomerular Filtration Rate 58 mL/min (>60); Est Glom Filt Rate - Afr Amer 71 mL/min (>60); Estimated Creatinine Clearance 41.24 ml/min; Globulin 3.9 g/dL (2.2-4.2); Glucose 67 mg/dL (74-106); Potassium 2.2 mmol/L (3.5-5.1); Protein, Total 5.9 g/dL (6.4-8.2); Sodium Level 139 mmol/L (136-145)
[2022-11-27 09:41] LABS: International Normalized Ratio 1.4; Prothrombin Time (Protime)PT. 17.4 SECONDS (11.7-14.9)
[2022-11-27 09:42] LABS: Fibrinogen 256 mg/dl (203-444)
--- NOTE | 2022-11-27 09:52 | PN.SURG_ITS ---
Subjective Subjective Patient seen and examined during AM rounds. She is found resting quietly in bed. She has just completed breakfast and denies any intolerance of her liquid diet with nausea or vomiting. She also denies any abdominal discomfort this morning. Objective Data Objective Data Vital Signs: Vital Signs Temp Pulse Resp BP Pulse Ox O2 Del Method O2 Flow Rate 97.5 F L 68 18 124/61 H 98 Nasal Cannula 2 11/27/22 09:45 11/27/22 09:45 11/27/22 09:45 11/27/22 09:45 11/27/22 09:45 11/27/22 09:45 11/27/22 09:45 Oxygen Flow Rate (L/min) 2 Oxygen Delivery Method Nasal Cannula Weight: 165 lb 9.074 oz Body Mass Index (BMI) 29.3 Intake & Output: Intake and Output for Last 24 Hours 11/25/22 11/26/22 11/27/22 23:59 23:59 23:59 Intake Total 2270 / 2270 1590 / 1590 1091.25 / 1091.25 Output Total 2750 / 2750 800 / 800 Balance 2270 / 2270 -1160 / -1160 291.25 / 291.25 Lab / Micro Data 11/27/22 08:14 11/27/22 08:14 Labs: Laboratory Results - last 24 hr 11/26/22 07:10: WBC 6.3, RBC 2.85 L, Hgb 8.2 L, Hct 25.9 L, MCV 90.9, MCH 28.8, MCHC 31.7 L, RDW Std Deviation 63.4 H, RDW Coeff of Edwar 19.7 H, Plt Count 33 L*, Diff Path Review September11/26/22 17:03: Fibrinogen 266 11/27/22 08:14: WBC 10.7, RBC 3.06 L, Hgb 9.0 L, Hct 27.9 L, MCV 91.2, MCH 29.4, MCHC 32.3, RDW Std Deviation 62.4 H, RDW Coeff of Edwar 19.6 H, Plt Count 43 L*, Differential Comment , Diff Path Review September, PT 17.4 H, INR 1.4, Fibrinogen 256, Sodium 139, Potassium 2.2 L*, Chloride 104, Carbon Dioxide 28.0, Anion Gap 7, BUN 6 L, Creatinine 0.99, Estim Creat Clear Calc 41.24, Est GFR (MDRD) Af Amer 71, Est GFR (MDRD) Non-Af 58 L, BUN/Creatinine Ratio 6.1 L, Glucose 67 L, Calcium 7.4 L, Total Bilirubin 3.60 H, AST 169 H, ALT 22, Alkaline Phosphatase 843 H, Total Protein 5.9 L, Albumin 2.0 L, Globulin 3.9, Albumin/Globulin Ratio 0.5 L Micro: Microbiology 11/26/22 05:35 Stool Stool Occult Blood (BAILEY) - Final Occult Blood Positive 11/24/22 14:27 Blood Culture (Wb) - Anticubital Right Bacteria Detection ( PCR) - Final Staphylococcus epidermidis mecA Resistance Marker 11/24/22 14:27 Blood Culture (Wb) - Anticubital Right Blood Culture - Preliminary Staphylococcus epidermidis 11/24/22 14:00 Blood Culture (Wb) - Anticubital Right Blood Culture - Preliminary No growth in 48 hours. 11/24/22 23:00 Stool Stool Lactoferrin - Final 11/24/22 23:00 Stool Enteric Bacteriology - Final 11/24/22 23:00 Stool C. difficile DNA Amplification - Final Radiography Diagnostic Testing: Radiology Impression MRCP 11/26/22 10:30 IMPRESSION: Normal MR Cholangiopancreatography (MRCP). Electronically Signed: Ruperto Wyatt MD at 19:51 EDT , Physical Exam Const oriented x3 and no apparent distress Resp normal respiratory effort GI GI Narrative: Soft with mild distention. Patient denies pain with palpation, but remarks of some discomfort diffusely. Negative Ventura sign once again. Assessment & Plan Assessment/Plan (1) Acute calculous cholecystitis: PLAN: This is a 72-year-old female who remains under evaluation for possible cholecystitis. Again today, in my evaluation of patient's abdominal exam there is no positive Ventura sign and exhibits an overall improvement in her exam. Therefore, my suspicion for acute cholecystitis remains low. Derangements of her LFTs, bilirubin, and alkaline phosphatase remain under evaluation with gastroenterology, but there is some concern for possible ischemic hepatitis. Th avelino derangements are largely stable today. Defer final decision regarding surgery to Dr. Ames who will be back tomorrow 11/28/2022. Patient should be made n.p.o. past midnight in the event that surgery is sought. (2) Colitis: PLAN: Patient's diffuse abdominal tenderness is more in keeping with her diagnosis of colitis. She also is reporting looser bowel movements. Echo recommendations from gastroenterology that further evaluation of this issue is in order and patient should undergo colonoscopy. (3) Anemia: PLAN: Patient remains anemic today, but is improved. (4) Thrombocytopenia: PLAN: Patient remains thrombocytopenic with platelet count of 43,000. Heparin- induced thrombocytopenia is being considered. Patient remains unsafe for invasive procedure below platelet count of 50,000. We will continue to follow evaluation by hematology oncology. Charges/Coding Visit Charges Inpatient E&M: 43786 Subs Hosp L2
[2022-11-27 10:43] LABS: GGTP 485 U/L (5-55); Magnesium 1.3 mg/dL (1.6-2.6)
[2022-11-27] MEDS: Potassium Chloride Oral Tablet 20 MEQ 60 MEQ PO ×2 (11:36→16:28)
[2022-11-27] MEDS: Ferrous Sulfate 325 MG Tablet PO (11:36)
--- NOTE | 2022-11-27 12:51 | PCM.PN.HOSP ---
Reason for Visit Reason for Visit: Abdominal pain/nausea/vomiting Subjective Subjective No issues through the night. Tolerated clear liquid diet yesterday without difficulty. She feels that she can advance to full liquid and then if she tolerates that well we will progress her diet further. No significant nausea or vomiting. Mild abdominal pain however she states that nothing like it was previously. Platelets are improving. No signs of bleeding. Objective Data Objective Data Vital Signs: Vital Signs Temp Pulse Resp BP Pulse Ox O2 Del Method O2 Flow Rate 97.5 F L 68 18 124/61 H 98 Nasal Cannula 2 11/27/22 09:45 11/27/22 09:45 11/27/22 09:45 11/27/22 09:45 11/27/22 09:45 11/27/22 09:45 11/27/22 09:45 Oxygen Flow Rate (L/min) 2 Oxygen Delivery Method Nasal Cannula Weight: 75.1 kg Body Mass Index (BMI) 29.3 Intake & Output: Intake and Output for Last 24 Hours 11/25/22 11/26/22 11/27/22 23:59 23:59 23:59 Intake Total 2270 / 2270 1590 / 1590 1091.25 / 1091.25 Output Total 2750 / 2750 1625 / 1625 Balance 2270 / 2270 -1160 / -1160 -533.75 / -533.75 Lab / Micro Data 11/27/22 08:14 11/27/22 08:14 Labs: Laboratory Results - last 24 hr 11/26/22 17:03: Fibrinogen 266 11/27/22 08:14: WBC 10.7, RBC 3.06 L, Hgb 9.0 L, Hct 27.9 L, MCV 91.2, MCH 29.4, MCHC 32.3, RDW Std Deviation 62.4 H, RDW Coeff of Edwar 19.6 H, Plt Count 43 L*, Differential Comment , Diff Path Review September, PT 17.4 H, INR 1.4, Fibrinogen 256, Sodium 139, Potassium 2.2 L*, Chloride 104, Carbon Dioxide 28.0, Anion Gap 7, BUN 6 L, Creatinine 0.99, Estim Creat Clear Calc 41.24, Est GFR (MDRD) Af Amer 71, Est GFR (MDRD) Non-Af 58 L, BUN/Creatinine Ratio 6.1 L, Glucose 67 L, Calcium 7.4 L, Magnesium 1.3 L, Total Bilirubin 3.60 H, GGT 485 H, AST 169 H, ALT 22, Alkaline Phosphatase 843 H, Total Protein 5.9 L, Albumin 2.0 L, Globulin 3.9, Albumin/Globulin Ratio 0.5 L Micro: Microbiology 11/26/22 05:35 Stool Stool Occult Blood (BAILEY) - Final Occult Blood Positive 11/24/22 14:27 Blood Culture (Wb) - Anticubital Right Bacteria Detection (PCR) - Final Staphylococcus epidermidis mecA Resistance Marker 11/24/22 14:27 Blood Culture (Wb) - Anticubital Right Blood Culture - Preliminary Staphylococcus epidermidis 11/24/22 14:00 Blood Culture (Wb) - Anticubital Right Blood Culture - Preliminary No growth in 48 hours. 11/24/22 23:00 Stool Stool Lactoferrin - Final 11/24/22 23:00 Stool Enteric Bacteriology - Final 11/24/22 23:00 Stool C. difficile DNA Amplification - Final Radiography Diagnostic Testing: Radiology Impression MRCP 11/26/22 10:30 IMPRESSION: Normal MR Cholangiopancreatography (MRCP). Electronically Signed: Ruperto Wyatt MD at 19:51 EDT , Physical Exam Const alert, oriented x3, no apparent distress and well nourished; Negative for average body habitus Constitutional Narrative: Overweight, older, white female, sitting up in bed, appears comfortable and nontoxic, very pleasant HEENT head/scalp atraumatic and moist oral mucous membranes Head and Scalp: normocephalic Neck no JVD Resp normal respiratory effort, no retractions, no use of accessory muscles and clear to auscultation bilaterally Auscultation: Negative for rales, rhonchi or wheezes Cardio regular rate, regular rhythm, S1 normal heart sound, S2 normal heart sound, no murmurs, no rub, no gallops and no clicks GI normal to inspection, nondistended, normoactive bowel sounds and soft to palpation GI Narrative: Very minimal tenderness and this seems to be diffuse currently Extremity no clubbing, cyanosis or edema Extremity Narrative: Pedal pulses are 2+, patient with limited mobility left lower extremity due to hip Skin Skin Narrative: No bleeding from her tunneled dialysis catheter, no petechiae or purpura Neuro oriented x3 and no focal motor deficits Neuro Narrative: Significant generalized weakness with decreased ability move left lower extremity due to recent hip issues Speech: speech normal Psych affect normal Psych Narrative: Very pleasant and appropriately interactive Assessment & Plan Assessment/Plan (1) Acute renal failure: QUALIFIERS: Acute renal failure type: with acute tubular necrosis Qualified Code(s): N17.0 - Acute kidney failure with tubular necrosis (2) Hyperbilirubinemia: (3) DIC (disseminated intravascular coagulation): (4) Anemia: (5) Colitis: (6) Leukocytosis: (7) Hypomagnesemia: (8) Thrombocytopenia: PLAN: Plan Acute DIC -Remains with no current signs of acute hemorrhage -Platelets trending up -Fibrinogen has normalized -INR has normalized -Patient with elevated direct bilirubin and normal indirect -Patient received 5 units of FFP -Oncology following-appreciate input -Repeat coags, CBC, and fibrinogen in the a.m. Acute thrombocytopenia secondary to DIC -Platelet count was normal in early October with her first abnormal lab being on 10/31/2022 -Suspect DIC as the etiology -Platelets are trending up -ADAMTS 13 pending--> very low suspicion for TTP at this point -HIT antibody pending as patient had been receiving heparin with dialysis -No need for current platelet transfusion -Oncology is following-appreciate input Hypokalemia -will give 60 mill equivalents p.o. twice daily x1 day -Replete magnesium Hypomagnesemia -2 g magnesium bolus -Repeat a.m. magnesium level 1 of 2 blood cultures staph epi positive -Contaminant -No further investigation or treatment warranted Acute on chronic anemia -Baseline hemoglobin until October was between 11 and 12 -Since October hemoglobin has been between 8.5 and 9.5 -6.9 a.m. of 11/25/2022 and 1 unit packed red blood cells given -Globin seems to be slowly trending up -Black stool was positive -GI is following -We will need colonoscopy once DIC has resolved -Mesalamine and budesonide were initiated Elevated alk phos/bilirubin -Alk phos is remaining elevated but fluctuating -GGT is markedly elevated so this is a biliary source not from her hip and bone issues -MRCP is unremarkable -Discussed with GI and they asked that we start 250 mg of ursodiol twice daily--> question PBC -Patient may need liver biopsy once DIC improves -Autoimmune work-up in progress as well -Plans for cholecystectomy have been stopped Acute colitis -CT shows mild colitis of colon -Clinical exam is improving and patient is tolerating a p.o. diet -Advance diet to full's and then regular if she does well -Stop IV fluids -Autoimmune work-up is pending -Could be ischemic with DIC -Continue to monitor -Budesonide and mesalamine initiated -GI following-appreciate input Diarrhea -Resolved Left hip osteoarthritis status post prosthetic joint infection -Nonweightbearing on left lower extremity -May need to get PT/OT involvement -Slipped antibiotic spacer in place -Follows with Dr. Frances Parkinson's disease -Continue carbidopa levodopa History of rheumatoid arthritis -Patient had previously been on methotrexate/oxy chloroquine/folic acid -All medications are currently on hold due to infection Hyperlipidemia -Continue statin Hypothyroidism -Continue levothyroxine Depression -Continue citalopram -Continue olanzapine GERD -Continue PPI DVT prophylaxis -On hold due to acute anemia and thrombocytopenia -SCDs CODE STATUS -Full code Charges/Coding Visit Charges Inpatient E&M: 19563 Subs Hosp L2
[2022-11-27] MEDS: Ursodiol 250 MG Tablet PO (23:47)
[2022-11-27] MEDS: Pravastatin 40 MG Tablet PO (23:47)
[2022-11-27] MEDS: OLANZapine 2.5 MG Tablet 7.5 MG PO (23:47)
[2022-11-28 03:21] VITALS: PULSE 72; O2SAT 96
[2022-11-28 05:02] LABS: Absolute Lymphocyte Count 1.62 X10^3/uL (0.83-4.51); Absolute Neutrophil Count 5.6 X10^3/uL (2.0-7.7); Basophil# 0.01 X10^3/uL; Basophil% 0.1 % (0-1); Eosinophil# 0.02 X10^3/uL; Eosinophils% 0.2 % (0-5); Hematocrit 25.2 % (37-47); Hemoglobin 7.9 g/dL (12.0-15.0); Lymphocyte # 1.62 X10^3/ul (0.83-4.51); Lymphocyte % 17.3 % (19-41); Mean Corp Hgb Conc 31.3 g/dL (32-36); Mean Corpuscular Hgb 28.8 pg (27.0-32.0); Monocyte% 19.2 % (0-10); NRBC Flagged by Analyzer 0.3 % (0-5); Neutrophil # 5.61 X10^3/uL (2.7-7.7); Neutrophil % 59.7 % (47-70); POSITIVE COUNT YES; POSITIVE DIFFERENTIAL YES; Platelet Count 51 K/mm3 (150-450); RBC Distribution Width CV 19.6 % (11.6-14.6); RBC Distribution Width SD 63.2 fl (35.1-43.9); Red Blood Count 2.74 M/mm3 (4.2-5.4); White Blood Count 9.4 K/mm3 (4.4-11.0)
[2022-11-28 05:10] LABS: Differential Indicated SCAN CRITERIA MET
[2022-11-28 05:27] LABS: Anion Gap 7 (5-15); BUN 5 mg/dL (7-18); BUN/Creat Ratio 6.4 RATIO (10-20); Calcium,Total 6.8 mg/dL (8.5-10.1); Chloride 107 mmol/L (98-107); Creatinine, Serum 0.78 mg/dL (0.55-1.02); EST Glomerular Filtration Rate 76 mL/min (>60); Est Glom Filt Rate - Afr Amer 92 mL/min (>60); Estimated Creatinine Clearance 40.83 ml/min; Glucose 73 mg/dL (74-106); Magnesium 1.4 mg/dL (1.6-2.6); Potassium 3.2 mmol/L (3.5-5.1); Sodium Level 139 mmol/L (136-145)
[2022-11-28 05:32] LABS: International Normalized Ratio 1.5; Prothrombin Time (Protime)PT. 17.8 SECONDS (11.7-14.9)
[2022-11-28 05:33] LABS: Fibrinogen 236 mg/dl (203-444)
[2022-11-28 06:04] VITALS: BP 144/79; PULSE 64; RESP 18; TEMP 37.2; O2SAT 96
[2022-11-28] MEDS: Levothyroxine 75 MCG Tablet PO (06:05)
[2022-11-28] MEDS: Carbidopa/Levodopa 25/100 Tablet PO ×3 (06:05→16:49)
[2022-11-28 06:12] LABS: Anisocytosis 2+; Platelet Estimate MOD DEC (ADEQ)
[2022-11-28 08:07] VITALS: BP 124/66; PULSE 88; RESP 18; TEMP 36.8; O2SAT 95
--- NOTE | 2022-11-28 08:12 | PCM.PN.HOSP ---
Reason for Visit Reason for Visit: Diagnoses Anemia, unspecified (11/24/22) Disseminated intravascular coagulation [defibrination syndrome] (11/24/22) Thrombocytopenia, unspecified (11/24/22) Elevated white blood cell count, unspecified (11/24/22) Other disorders of bilirubin metabolism (11/24/22) Hypomagnesemia (11/24/22) Noninfective gastroenteritis and colitis, unspecified (11/24/22) Calculus of gallbladder with acute cholecystitis without obstruction (11/24/22) Obstruction of bile duct (11/24/22) Acute kidney failure with tubular necrosis (11/24/22) Acute kidney failure, unspecified (11/24/22) Diarrhea, unspecified (11/24/22) Subjective Subjective Complains of left sided abdominal pain. Objective Data Objective Data Vital Signs: Vital Signs Temp Pulse Resp BP Pulse Ox O2 Del Method O2 Flow Rate 36.8 C 88 18 124/66 H 95 Nasal Cannula 2 11/28/22 08:07 11/28/22 08:07 11/28/22 08:07 11/28/22 08:07 11/28/22 08:07 11/28/22 08:07 11/28/22 08:07 Oxygen Flow Rate (L/min) 2 Oxygen Delivery Method Nasal Cannula Weight: 75.1 kg Body Mass Index (BMI) 29.3 Intake & Output: Intake and Output for Last 24 Hours 11/26/22 11/27/22 11/28/22 23:59 23:59 23:59 Intake Total 1590 / 1590 2105.25 / 2105.25 50 / 50 Output Total 2750 / 2750 1625 / 1625 250 / 250 Balance -1160 / -1160 480.25 / 480.25 -200 / -200 Lab / Micro Data 11/28/22 04:35 11/28/22 04:35 Labs: Laboratory Results - last 24 hr 11/27/22 08:14: WBC 10.7, RBC 3.06 L, Hgb 9.0 L, Hct 27.9 L, MCV 91.2, MCH 29.4, MCHC 32.3, RDW Std Deviation 62.4 H, RDW Coeff of Edwar 19.6 H, Plt Count 43 L*, Differential Comment , Diff Path Review September, PT 17.4 H, INR 1.4, Fibrinogen 256, Sodium 139, Potassium 2.2 L*, Chloride 104, Carbon Dioxide 28.0, Anion Gap 7, BUN 6 L, Creatinine 0.99, Estim Creat Clear Calc 41.24, Est GFR (MDRD) Af Amer 71, Est GFR (MDRD) Non-Af 58 L, BUN/Creatinine Ratio 6.1 L, Glucose 67 L, Calcium 7.4 L, Magnesium 1.3 L, Total Bilirubin 3.60 H, GGT 485 H, AST 169 H, ALT 22, Alkaline Phosphatase 843 H, Total Protein 5.9 L, Albumin 2.0 L, Globulin 3.9, Albumin/Globulin Ratio 0.5 L 11/28/22 04:35: WBC 9.4, RBC 2.74 L, Hgb 7.9 L, Hct 25.2 L, MCV 92.0, MCH 28.8, MCHC 31.3 L, RDW Std Deviation 63.2 H, RDW Coeff of Edwar 19.6 H, Plt Count 51 L, Immature Gran % (Auto) 3.500 H, Neut % (Auto) 59.7, Lymph % (Auto) 17.3 L, [place] % (Auto) 19.2 H, Eos % (Auto) 0.2, Baso % (Auto) 0.1, Absolute Neuts (auto) 5.6, Absolute Lymphs (auto) 1.62, Nucleated RBC % 0.3, Platelet Estimate MOD DEC, Anisocytosis 2+, PT 17.8 H, INR 1.5, Fibrinogen 236, Sodium 139, Potassium 3.2 L, Chloride 107, Carbon Dioxide 25.0, Anion Gap 7, BUN 5 L, Creatinine 0.78, Estim Creat Clear Calc 40.83, Est GFR (MDRD) Af Amer 92, Est GFR (MDRD) Non-Af 76, BUN/Creatinine Ratio 6.4 L, Glucose 73 L, Calcium 6.8 L, Magnesium 1.4 L Micro: Microbiology 11/26/22 05:35 Stool Stool Occult Blood (BAILEY) - Final Occult Blood Positive 11/24/22 14:27 Blood Culture (Wb) - Anticubital Right Bacteria Detection (PCR) - Final Staphylococcus epidermidis mecA Resistance Marker 11/24/22 14:27 Blood Culture (Wb) - Anticubital Right Blood Culture - Preliminary Staphylococcus epidermidis 11/24/22 14:00 Blood Culture (Wb) - Anticubital Right Blood Culture - Preliminary No growth in 48 hours. 11/24/22 23:00 Stool Stool Lactoferrin - Final 11/24/22 23:00 Stool Enteric Bacteriology - Final 11/24/22 23:00 Stool C. difficile DNA Amplification - Final Physical Exam Const alert and no apparent distress HEENT head/scalp atraumatic and moist oral mucous membranes Resp normal respiratory effort, no retractions, no use of accessory muscles and clear to auscultation bilaterally Cardio regular rate, regular rhythm, S1 normal heart sound and S2 normal heart sound GI normal to inspection, nondistended, normoactive bowel sounds, soft to palpation, non-tender and non-distended Assessment & Plan Assessment/Plan (1) DIC (disseminated intravascular coagulation): PLAN: Acute Remains with no current signs of acute hemorrhage Platelets trending up Fibrinogen has normalized Patient with elevated direct bilirubin and normal indirect Patient received 5 units of FFP Oncology following-appreciate input Repeat coags, CBC, and fibrinogen in the a.m. (2) Thrombocytopenia: PLAN: Acute thrombocytopenia secondary to DIC, slowly improving Platelet count was normal in early October with her first abnormal lab being on 10/31/2022 ADAMTS 13 pending--> very low suspicion for TTP at this point HIT antibody pending as patient had been receiving heparin with dialysis No need for current platelet transfusion Oncology is following-appreciate input (3) Hypokalemia: PLAN: Ongoing, but still low. Continue to replace. Replace hypomag (4) Hypomagnesemia: PLAN: replace (5) Acute renal failure: QUALIFIERS: Acute renal failure type: with acute tubular necrosis Qualified Code(s): N17.0 - Acute kidney failure with tubular necrosis PLAN: 2/2 ATN improving nephrology consulted. Tunneled HD cath to be removed. (6) Colitis: PLAN: GI on consult UC v ischemic colitis colonoscopy CT shows mild colitis of colon Clinical exam is improving and patient is tolerating a p.o. diet -Advance diet to full's and then regular if she does well -Stop IV fluids Autoimmune work-up is pending Could be ischemic with DIC Continue to monitor Budesonide and mesalamine initiated GI following-appreciate input (7) Anemia: PLAN: Acute on chronic anemia Baseline hemoglobin until October was between 11 and 12 Since October hemoglobin has been between 8.5 and 9.5 6.9 a.m. of 11/25/2022 and 1 unit packed red blood cells given Globin seems to be slowly trending up Black stool was positive GI is following -We will need colonoscopy once DIC has resolved -Mesalamine and budesonide were initiated (8) Hyperbilirubinemia: PLAN: Elevated alk phos/bilirubin Alk phos is remaining elevated but fluctuating -GGT is markedly elevated so this is a biliary source not from her hip and bone issues MRCP is unremarkable Discussed with GI and they asked that we start 250 mg of ursodiol twice daily--> question PBC Patient may need liver biopsy once DIC improves Autoimmune work-up in progress as well Plans for cholecystectomy have been stopped PLAN: Plan Chronic conditions: Left hip osteoarthritis status post prosthetic joint infection-Nonweightbearing on left lower extremity-May need to get PT/OT involvement-Slipped antibiotic spacer in place-Follows with Dr. Frances Parkinson's disease-Continue carbidopa levodopa History of rheumatoid arthritis-Patient had previously been on methotrexate/oxy chloroquine/folic acid-All medications are currently on hold due to infection Hyperlipidemia-Continue statin Hypothyroidism-Continue levothyroxine Depression-Continue citalopram-Continue olanzapine GERD-Continue PPI DVT prophylaxis -On hold due to acute anemia and thrombocytopenia -SCDs CODE STATUS -Full code Charges/Coding Visit Charges Inpatient E&M: 58406 Subs Hosp L2
[2022-11-28 08:18] VITALS: O2SAT 95
[2022-11-28] MEDS: Potassium Chloride Oral Tablet 20 MEQ 60 MEQ PO (09:24)
[2022-11-28] MEDS: Budesonide 3 MG CAPSULE.EC 9 MG PO (09:26)
[2022-11-28] MEDS: Menthol/Lanolin/Calamine/Znox 113 GM Tube 1 APPLIC TOPICAL (09:26)
[2022-11-28] MEDS: Mesalamine 1.2 GM Tablet 2.4 GM PO (09:26)
[2022-11-28] MEDS: Citalopram 20 MG Tablet PO (09:27)
[2022-11-28] MEDS: Pantoprazole Sodium 40 MG Tablet PO (09:27)
[2022-11-28] MEDS: Ursodiol 250 MG Tablet PO (09:28)
[2022-11-28] MEDS: Magnesium Sulfate 4gm/100mL 4 GM/100 ML IV.SOLN. IV (09:38)
--- NOTE | 2022-11-28 10:37 | PN.SURG_ITS ---
Subjective Subjective Patient reports she is not feeling much abdominal pain. She tolerated full liquids with no nausea or vomiting. Objective Data Objective Data Vital Signs: Vital Signs Temp Pulse Resp BP Pulse Ox O2 Del Method O2 Flow Rate 98.2 F 88 18 124/66 H 95 Nasal Cannula 2 11/28/22 08:07 11/28/22 08:07 11/28/22 08:07 11/28/22 08:07 11/28/22 08:18 11/28/22 08:18 11/28/22 08:18 Oxygen Flow Rate (L/min) 2 Oxygen Delivery Method Nasal Cannula Weight: 165 lb 9.074 oz Body Mass Index (BMI) 29.3 Intake & Output: Intake and Output for Last 24 Hours 11/26/22 11/27/22 11/28/22 23:59 23:59 23:59 Intake Total 1590 / 1590 2105.25 / 2105.25 50 / 50 Output Total 2750 / 2750 1625 / 1625 250 / 250 Balance -1160 / -1160 480.25 / 480.25 -200 / -200 Lab / Micro Data 11/28/22 04:35 11/28/22 04:35 Labs: Laboratory Results - last 24 hr 11/27/22 08:14: Magnesium 1.3 L, GGT 485 H 11/28/22 04:35: WBC 9.4, RBC 2.74 L, Hgb 7.9 L, Hct 25.2 L, MCV 92.0, MCH 28.8, MCHC 31.3 L, RDW Std Deviation 63.2 H, RDW Coeff of Edwar 19.6 H, Plt Count 51 L, Immature Gran % (Auto) 3.500 H, Neut % (Auto) 59.7, Lymph % (Auto) 17.3 L, [place] % (Auto) 19.2 H, Eos % (Auto) 0.2, Baso % (Auto) 0.1, Absolute Neuts (auto) 5.6, Absolute Lymphs (auto) 1.62, Nucleated RBC % 0.3, Platelet Estimate MOD DEC, Anisocytosis 2+, PT 17.8 H, INR 1.5, Fibrinogen 236, Sodium 139, Potassium 3.2 L , Chloride 107, Carbon Dioxide 25.0, Anion Gap 7, BUN 5 L, Creatinine 0.78, Estim Creat Clear Calc 40.83, Est GFR (MDRD) Af Amer 92, Est GFR (MDRD) Non-Af 76, BUN/Creatinine Ratio 6.4 L, Glucose 73 L, Calcium 6.8 L, Magnesium 1.4 L Micro: Microbiology 11/26/22 05:35 Stool Stool Occult Blood (BAILEY) - Final Occult Blood Positive 11/24/22 14:27 Blood Culture (Wb) - Anticubital Right Bacteria Detection (PCR) - Final Staphylococcus epidermidis mecA Resistance Marker 11/24/22 14:27 Blood Culture (Wb) - Anticubital Right Blood Culture - Preliminary Staphylococcus epidermidis 11/24/22 14:00 Blood Culture (Wb) - Anticubital Right Blood Culture - Preliminary No growth in 48 hours. 11/24/22 23:00 Stool Stool Lactoferrin - Final 11/24/22 23:00 Stool Enteric Bacteriology - Final 11/24/22 23:00 Stool C. difficile DNA Amplification - Final Physical Exam Const oriented x3 and no apparent distress Resp normal respiratory effort GI soft to palpation Inspection: Negative for abdominal distention Assessment & Plan Assessment/Plan (1) Leukocytosis: PLAN: The patient's white count has returned to normal. The patient had MRCP and I did not discuss any gallstone. Unsure if the patient really has acute cholecystitis. I will try the patient on a regular diet today to see how she tolerates and if she has any pain. She has several other factors that are compounding her clinical picture. Domingo Ames MD Pager: [facility] [address] [place] [address], [address] [place] [address] Office:
[2022-11-28] MEDS: Ferrous Sulfate 325 MG Tablet PO (11:00)
--- NOTE | 2022-11-28 11:28 | WOUNDNOTE ---
wound photo: buttocks
[2022-11-28 12:35] LABS: Pathologist Review Reviewed
[2022-11-28 13:07] LABS: Aldolase 4.7 U/L (3.3-10.3)
[2022-11-28 13:28] LABS: Pathologist Review Reviewed
[2022-11-28 13:33] LABS: Pathologist Review Reviewed
--- NOTE | 2022-11-28 14:40 | PN.RENAL_ITS ---
Subjective Subjective Following for dialysis requiring CARMENZA Patient is resting quietly. Denies any complaints. Reports good appetite. No overnight events. Objective Data Objective Data Vital Signs: Vital Signs Temp Pulse Resp BP Pulse Ox O2 Del Method O2 Flow Rate 98.2 F 88 18 124/66 H 95 Nasal Cannula 2 11/28/22 08:07 11/28/22 08:07 11/28/22 08:07 11/28/22 08:07 11/28/22 08:18 11/28/22 08:18 11/28/22 08:18 Oxygen Flow Rate (L/min) 2 Oxygen Delivery Method Nasal Cannula Weight: 75.1 kg Body Mass Index (BMI) 29.3 Intake & Output: Intake and Output for Last 24 Hours 11/26/22 11/27/22 11/28/22 23:59 23:59 23:59 Intake Total 1590 / 1590 2105.25 / 2105.25 200 / 200 Output Total 2750 / 2750 1625 / 1625 250 / 250 Balance -1160 / -1160 480.25 / 480.25 -50 / -50 Lab / Micro Data 11/28/22 04:35 11/28/22 04:35 Labs: Laboratory Results - last 24 hr 11/24/22 13:54: Diff Path Review Reviewed 11/26/22 06:29: Aldolase 4.7 11/26/22 07:10: Diff Path Review Reviewed 11/27/22 08:14: Diff Path Review Reviewed 11/28/22 04:35: WBC 9.4, RBC 2.74 L, Hgb 7.9 L, Hct 25.2 L, MCV 92.0, MCH 28.8, MCHC 31.3 L, RDW Std Deviation 63.2 H, RDW Coeff of Edwar 19.6 H, Plt Count 51 L, Immature Gran % (Auto) 3.500 H, Neut % (Auto) 59.7, Lymph % (Auto) 17.3 L, [place] % (Auto) 19.2 H, Eos % (Auto) 0.2, Baso % (Auto) 0.1, Absolute Neuts (auto) 5.6, Absolute Lymphs (auto) 1.62, Nucleated RBC % 0.3, Platelet Estimate MOD DEC, Ani socytosis 2+, PT 17.8 H, INR 1.5, Fibrinogen 236, Sodium 139, Potassium 3.2 L, Chloride 107, Carbon Dioxide 25.0, Anion Gap 7, BUN 5 L, Creatinine 0.78, Estim Creat Clear Calc 40.83, Est GFR (MDRD) Af Amer 92, Est GFR (MDRD) Non-Af 76, BUN/Creatinine Ratio 6.4 L, Glucose 73 L, Calcium 6.8 L, Magnesium 1.4 L Micro: Microbiology 11/26/22 05:35 Stool Stool Occult Blood (BAILEY) - Final Occult Blood Positive 11/24/22 14:27 Blood Culture (Wb) - Anticubital Right Bacteria Detection (PCR) - Final Staphylococcus epidermidis mecA Resistance Marker 11/24/22 14:27 Blood Culture (Wb) - Anticubital Right Blood Culture - Preliminary Staphylococcus epidermidis 11/24/22 14:00 Blood Culture (Wb) - Anticubital Right Blood Culture - Preliminary No growth in 48 hours. 11/24/22 23:00 Stool Stool Lactoferrin - Final 11/24/22 23:00 Stool Enteric Bacteriology - Final 11/24/22 23:00 Stool C. difficile DNA Amplification - Final Physical Exam Narrative Alert awake oriented x 3, no acute distress s1s2 no murmurs lungs clear abdomen soft no edema Tunneled HD catheter right chest dressing clean, dry and intact Assessment & Plan Assessment/Plan (1) Acute renal failure: QUALIFIERS: Acute renal failure type: with acute tubular necrosis Qualified Code(s): N17.0 - Acute kidney failure with tubular necrosis PLAN: Dialysis requiring CARMENZA secondary to ATN. Patient had been dialyzing at [facility] Monday schedule. Last dialysis November 22, 2022. No further need for [employer]. Renal function improving. Yesterday creatinine 0.99 mg/dL, today her creatinine is 0.78 mg/dL, potassium 3.2, bicarb 25. Urine output at least 1.6 L yesterday. Okay for tunneled HD catheter to be removed. Replace potassium as ordered. Patient does not need renal diet restrictions.
[2022-11-28 15:11] VITALS: BP 116/60; PULSE 79; RESP 18; TEMP 36.6; O2SAT 98
[2022-11-28] MEDS: Potassium Chloride Oral Tablet 20 MEQ 40 MEQ PO (16:49)
[2022-11-28] MEDS: Juven (unflavored) Packet 1 PACKET PO (17:08)
[2022-11-28 18:07] LABS: Anti-Centromere B Ab <0.2 AI (0.0-0.9); Anti-Chromatin <0.2 AI (0.0-0.9); Anti-Jo <0.2 AI (0.0-0.9); Anti-Scleroderma-70 AB <0.2 AI (0.0-0.9); Anti-dsDNA Ab <1 IU/mL (0-9); RNP Ab <0.2 AI (0.0-0.9); SJOGREN'S Anti-SS-A test < 0.2 AI (0.0-0.9); SJOGREN'S Anti-SS-B test < 0.2 AI (0.0-0.9); Smith Ab <0.2 AI (0.0-0.9)
[2022-11-28 20:48] VITALS: PULSE 72; O2SAT 97
[2022-11-29] VITALS (12 sets, daily range): BP systolic 112–154; BP diastolic 62–81; PULSE 60–90; RESP 18–20; TEMP 36.3–37.2; O2SAT 93–100
[2022-11-29] MEDS: OLANZapine 2.5 MG Tablet 7.5 MG PO ×2 (00:24→22:12)
[2022-11-29] MEDS: Ursodiol 250 MG Tablet PO ×3 (00:24→22:11)
[2022-11-29] MEDS: Pravastatin 40 MG Tablet PO ×2 (00:24→22:10)
[2022-11-29] MEDS: Levothyroxine 75 MCG Tablet PO (05:49)
[2022-11-29] MEDS: Carbidopa/Levodopa 25/100 Tablet PO ×3 (05:49→16:07)
[2022-11-29 07:21] LABS: Absolute Lymphocyte Count 2.61 X10^3/uL (0.83-4.51); Absolute Neutrophil Count 6.4 X10^3/uL (2.0-7.7); Basophil# 0.03 X10^3/uL; Basophil% 0.2 % (0-1); Eosinophil# 0.08 X10^3/uL; Eosinophils% 0.7 % (0-5); Hematocrit 27.1 % (37-47); Hemoglobin 8.4 g/dL (12.0-15.0); Lymphocyte # 2.61 X10^3/ul (0.83-4.51); Lymphocyte % 21.2 % (19-41); Mean Corpuscular Hgb 29.1 pg (27.0-32.0); Mean Corpuscular Volume 93.8 fL (81-99); Monocyte# 2.91 X10^3/uL; Monocyte% 23.7 % (0-10); NRBC Flagged by Analyzer 0.5 % (0-5); POSITIVE COUNT YES; POSITIVE DIFFERENTIAL YES; POSITIVE MORPHOLOGY YES; Platelet Count 85 K/mm3 (150-450); RBC Distribution Width CV 20.1 % (11.6-14.6); RBC Distribution Width SD 65.7 fl (35.1-43.9); Red Blood Count 2.89 M/mm3 (4.2-5.4); White Blood Count 12.3 K/mm3 (4.4-11.0)
--- NOTE | 2022-11-29 07:21 | PN.HOSP_ITS ---
Reason for Visit Reason for Visit: Diagnoses Anemia, unspecified (11/24/22) Disseminated intravascular coagulation [defibrination syndrome] (11/24/22) Thrombocytopenia, unspecified (11/24/22) Elevated white blood cell count, unspecified (11/24/22) Other disorders of bilirubin metabolism (11/24/22) Hypomagnesemia (11/24/22) Hypokalemia (11/24/22) Noninfective gastroenteritis and colitis, unspecified (11/24/22) Calculus of gallbladder with acute cholecystitis without obstruction (11/24/22) Obstruction of bile duct (11/24/22) Acute kidney failure with tubular necrosis (11/24/22) Acute kidney failure, unspecified (11/24/22) Diarrhea, unspecified (11/24/22) Subjective Subjective Still with abdominal pain, but is more umbilical today. Still with diarrhea. Objective Data Objective Data Vital Signs: Vital Signs Temp Pulse Resp BP Pulse Ox O2 Del Method O2 Flow Rate 37.2 C 60 18 134/75 H 93 Room Air 1.5 11/29/22 05:44 11/29/22 05:44 11/29/22 05:44 11/29/22 05:44 11/29/22 05:44 11/29/22 05:44 11/29/22 02:45 Oxygen Flow Rate (L/min) 1.5 Oxygen Delivery Method Room Air Weight: 75.1 kg Body Mass Index (BMI) 29.3 Intake & Output: Intake and Output for Last 24 Hours 11/27/22 11/28/22 11/29/22 23:59 23:59 23:59 Intake Total 2105.25 / 2105.25 250 / 250 50 / 50 Output Total 1625 / 1625 750 / 750 Balance 480.25 / 480.25 -500 / -500 50 / 50 Lab / Micro Data 11/29/22 06:45 11/29/22 06:45 Labs: Laboratory Results - last 24 hr 11/24/22 13:54: Diff Path Review Reviewed 11/26/22 06:29: Aldolase 4.7 11/26/22 07:10: Diff Path Review Reviewed, DEYSI-1 Antibody <0.2, SS-A/Ro IgG Antibody < 0.2, SS-B/La IgG Antibody < 0.2, Sm (Martinez) Antibody <0.2, CLASSIFIER OPERATOR Antibody <0.2, Scl-70 Scleroderma Ab <0.2, Double Strand DNA Ab <1, Centromere B Antibody <0.2 11/27/22 08:14: Diff Path Review Reviewed Micro: Microbiology 11/26/22 05:35 Stool Stool Occult Blood (BAILEY) - Final Occult Blood Positive 11/24/22 14:27 Blood Culture (Wb) - Anticubital Right Bacteria Detection (PCR) - Final Staphylococcus epidermidis mecA Resistance Marker 11/24/22 14:27 Blood Culture (Wb) - Anticubital Right Blood Culture - Preliminary Staphylococcus epidermidis 11/24/22 14:00 Blood Culture (Wb) - Anticubital Right Blood Culture - Preliminary No growth in 48 hours. 11/24/22 23:00 Stool Stool Lactoferrin - Final 11/24/22 23:00 Stool Enteric Bacteriology - Final 11/24/22 23:00 Stool C. difficile DNA Amplification - Final Physical Exam Const alert and no apparent distress Resp normal respiratory effort, no retractions, no use of accessory muscles and clear to auscultation bilaterally Cardio regular rate, regular rhythm, S1 normal heart sound and S2 normal heart sound GI normal to inspection, nondistended, normoactive bowel sounds, soft to palpation, non-tender and non-distended Extremity normal to inspection Skin Skin Narrative: no rashes/lesions Assessment & Plan Assessment/Plan (1) DIC (disseminated intravascular coagulation): PLAN: Acute Remains with no current signs of acute hemorrhage Platelets trending up Fibrinogen has normalized Patient with elevated direct bilirubin and normal indirect Patient received 5 units of FFP Oncology following-appreciate input Repeat coags, CBC, and fibrinogen in the a.m. (2) Thrombocytopenia: PLAN: Acute thrombocytopenia secondary to DIC, slowly improving Platelet count was normal in early October with her first abnormal lab being on 10/31/2022 ADAMTS 13 pending--> very low suspicion for TTP at this point HIT antibody pending as patient had been receiving heparin with dialysis No need for current platelet transfusion Oncology is following-appreciate input (3) Hypokalemia: PLAN: Ongoing, but still low. Continue to replace. Replace hypomag (4) Hypomagnesemia: PLAN: replace (5) Acute renal failure: QUALIFIERS: Acute renal failure type: with acute tubular necrosis Qualified Code(s): N17.0 - Acute kidney failure with tubular necrosis PLAN: 2/2 ATN improving nephrology consulted. Tunneled HD cath to be removed. (6) Colitis: PLAN: GI on consult UC v ischemic colitis colonoscopy CT shows mild colitis of colon Clinical exam is improving and patient is tolerating a p.o. diet -Advance diet to full's and then regular if she does well -Stop IV fluids Autoimmune work-up is pending Could be ischemic with DIC Continue to monitor Budesonide and mesalamine initiated GI following-appreciate input add Imodium (7) Anemia: PLAN: Acute on chronic anemia Baseline hemoglobin until October was between 11 and 12 Since October hemoglobin has been between 8.5 and 9.5 6.9 a.m. of 11/25/2022 and 1 unit packed red blood cells given Globin seems to be slowly trending up Black stool was positive GI is following -We will need colonoscopy once DIC has resolved -Mesalamine and budesonide were initiated (8) Hyperbilirubinemia: PLAN: Elevated alk phos/bilirubin Alk phos is remaining elevated but fluctuating -GGT is markedly elevated so this is a biliary source not from her hip and bone issues MRCP is unremarkable Discussed with GI and they asked that we start 250 mg of ursodiol twice daily--> question PBC Patient may need liver biopsy once DIC improves Autoimmune work-up in progress as well Plans for cholecystectomy have been stopped PLAN: Plan Chronic conditions: * Left hip osteoarthritis status post prosthetic joint infection- Nonweightbearing on left lower extremity-May need to get PT/OT involvement- Slipped antibiotic spacer in place-Follows with Dr. Frances * Parkinson's disease-Continue carbidopa levodopa * History of rheumatoid arthritis-Patient had previously been on metho trexate/oxy chloroquine/folic acid-All medications are currently on hold due to infection * Hyperlipidemia-Continue statin * Hypothyroidism-Continue levothyroxine * Depression-Continue citalopram-Continue olanzapine * GERD-Continue PPI DVT prophylaxis -On hold due to acute anemia and thrombocytopenia -SCDs CODE STATUS -Full code DW patient's at bedside. Charges/Coding Visit Charges Inpatient E&M: 11614 Subs Hosp L2
[2022-11-29 07:23] LABS: Differential Indicated SCAN CRITERIA MET
[2022-11-29 07:42] LABS: International Normalized Ratio 1.3; Prothrombin Time (Protime)PT. 16.6 SECONDS (11.7-14.9)
[2022-11-29 07:43] LABS: Anisocytosis 2+; Differential Comment SCANNED; Macrocytosis 1+; Microcytosis 1+; Polychromasia RARE
[2022-11-29 08:03] LABS: ALB/GLOB Ratio 0.5 RATIO (0.9-2.4); AST(SGOT) 135 U/L (15-37); Alanine Aminotransfer ALT/SGPT 52 U/L (13-56); Albumin, Serum 1.7 g/dL (3.2-5.0); Alkaline Phosphatase 773 U/L (45-117); Anion Gap 5 (5-15); BUN 6 mg/dL (7-18); BUN/Creat Ratio 7.9 RATIO (10-20); Chloride 110 mmol/L (98-107); Creatinine, Serum 0.76 mg/dL (0.55-1.02); EST Glomerular Filtration Rate 79 mL/min (>60); Est Glom Filt Rate - Afr Amer 96 mL/min (>60); Estimated Creatinine Clearance 40.83 ml/min; Globulin 3.5 g/dL (2.2-4.2); Glucose 83 mg/dL (74-106); Magnesium 1.9 mg/dL (1.6-2.6); Potassium 2.6 mmol/L (3.5-5.1); Protein, Total 5.2 g/dL (6.4-8.2); Sodium Level 141 mmol/L (136-145)
--- NOTE | 2022-11-29 08:07 | PN.SURG_ITS ---
Subjective Subjective Patient has not complained to me of any abdominal pain. She seems to be tolerating a diet. Objective Data Objective Data Vital Signs: Vital Signs Temp Pulse Resp BP Pulse Ox O2 Del Method O2 Flow Rate 99.0 F 60 18 134/75 H 93 Room Air 1.5 11/29/22 05:44 11/29/22 05:44 11/29/22 05:44 11/29/22 05:44 11/29/22 05:44 11/29/22 05:44 11/29/22 02:45 Oxygen Flow Rate (L/min) 1.5 Oxygen Delivery Method Room Air Weight: 165 lb 9.074 oz Body Mass Index (BMI) 29.3 Intake & Output: Intake and Output for Last 24 Hours 11/27/22 11/28/22 11/29/22 23:59 23:59 23:59 Intake Total 2105.25 / 2105.25 250 / 250 50 / 50 Output Total 1625 / 1625 750 / 750 Balance 480.25 / 480.25 -500 / -500 50 / 50 Lab / Micro Data 11/29/22 06:45 11/29/22 06:45 Labs: Laboratory Results - last 24 hr 11/24/22 13:54: Diff Path Review Reviewed 11/26/22 06:29: Aldolase 4.7 11/26/22 07:10: Diff Path Review Reviewed, DEYSI-1 Antibody <0.2, SS-A/Ro IgG Antibody < 0.2, SS-B/La IgG Antibody < 0.2, Sm (Martinez) Antibody <0.2, MOLECULAR BIOLOGY DIRECTOR Antibody <0.2, Scl-70 Scleroderma Ab <0.2, Double Strand DNA Ab <1, Centromere B Antibody <0.2 11/27/22 08:14: Diff Path Review Reviewed 11/29/22 06:45: WBC 12.3 H, RBC 2.89 L, Hgb 8.4 L, Hct 27.1 L, MCV 93.8, MCH 29.1, MCHC 31.0 L, RDW Std Deviation 65.7 H, RDW Coeff of Edwar 20.1 H, Plt Count 85 L, Immature Gran % (Auto) 2.200 H, Neut % (Auto) 52.0, Lymph % (Auto) 21.2, [place] % (Auto) 23.7 H, Eos % (Auto) 0.7, Baso % (Auto) 0.2, Absolute Neuts (auto) 6.4, Absolute Lymphs (auto) 2.61, Nucleated RBC % 0.5, Differential Comment SCANNED, Diff Path Review May foll, Polychromasia RARE, Anisocytosis 2+, Microcytosis 1+, Macrocytosis 1+, PT 16.6 H, INR 1.3, Sodium 141, Potassium 2.6 L*, Chloride 110 H, Carbon Dioxide 26.0, Anion Gap 5, BUN 6 L, Creatinine 0.76, Estim Creat Clear Calc 40.83, Est GFR (MDRD) Af Amer 96, Est GFR (MDRD) Non-Af 79, BUN/Creatinine Ratio 7.9 L, Glucose 83, Calcium 7.0 L, Magnesium 1.9, Total Bilirubin 2.50 H, AST 135 H, ALT 52, Alkaline Phosphatase 773 H, Total Protein 5.2 L, Albumin 1.7 L, Globulin 3.5, Albumin/Globulin Ratio 0.5 L Micro: Microbiology 11/26/22 05:35 Stool Stool Occult Blood (BAILEY) - Final Occult Blood Positive 11/24/22 14:27 Blood Culture (Wb) - Anticubital Right Bacteria Detection (PCR) - Final Staphylococcus epidermidis mecA Resistance Marker 11/24/22 14:27 Blood Culture (Wb) - Anticubital Right Blood Culture - Preliminary Staphylococcus epidermidis 11/24/22 14:00 Blood Culture (Wb) - Anticubital Right Blood Culture - Preliminary No growth in 48 hours. 11/24/22 23:00 Stool Stool Lactoferrin - Final 11/24/22 23:00 Stool Enteric Bacteriology - Final 11/24/22 23:00 Stool C. difficile DNA Amplification - Final Assessment & Plan Assessment/Plan (1) Leukocytosis: PLAN: Patient seems to be tolerating regular diet. LFTs are slowly decreasing. No plan for surgery at this time. I was also asked to remove the patient's tunneled dialysis catheter. I would like to remove this in my office in the procedure room as an outpatient because I believe it will require a cutdown. I would also like her platelets normalize before removing the catheter as this does not seem emergent. She can follow-up with me for catheter removal after discharge. Domingo Ames MD Pager: [facility] [address] [place] [address], [address] [place] [address] Office:
[2022-11-29] MEDS: Citalopram 20 MG Tablet PO (08:41)
[2022-11-29] MEDS: Mesalamine 1.2 GM Tablet 2.4 GM PO (08:41)
[2022-11-29] MEDS: Pantoprazole Sodium 40 MG Tablet PO (08:41)
[2022-11-29] MEDS: Juven (unflavored) Packet 1 PACKET PO ×2 (08:41→16:07)
[2022-11-29] MEDS: Budesonide 3 MG CAPSULE.EC 9 MG PO (08:41)
[2022-11-29] MEDS: Potassium Chloride Oral Tablet 20 MEQ 40 MEQ PO ×2 (08:42→16:07)
[2022-11-29] MEDS: Potassium Chloride 10mEq/100mL 10 MEQ/100 ML IV.SOLN. 100 MEQ IV BOLUS ×4 (10:35→13:45)
[2022-11-29] MEDS: Nystatin Powder 15gm Bottle 1 APPLIC TOPICAL ×2 (10:35→22:10)
[2022-11-29] MEDS: Ferrous Sulfate 325 MG Tablet PO (11:48)
[2022-11-29] MEDS: Loperamide 2 MG Capsule PO ×2 (13:50→22:11)
--- NOTE | 2022-11-29 14:06 | PN.RENAL_ITS ---
Subjective Subjective Resting in bed. Has been having multiple episodes of loose stool. Reports appetite is fair. Objective Data Objective Data Vital Signs: Vital Signs Temp Pulse Resp BP Pulse Ox O2 Del Method O2 Flow Rate 97.5 F L 90 18 112/62 94 Room Air 1.5 11/29/22 14:01 11/29/22 14:01 11/29/22 14:01 11/29/22 14:01 11/29/22 14:01 11/29/22 14:01 11/29/22 02:45 Oxygen Flow Rate (L/min) 1.5 Oxygen Delivery Method Room Air Weight: 75.1 kg Body Mass Index (BMI) 29.3 Intake & Output: Intake and Output for Last 24 Hours 11/27/22 11/28/22 11/29/22 23:59 23:59 23:59 Intake Total 2105.25 / 2105.25 250 / 250 400 / 400 Output Total 1625 / 1625 750 / 750 Balance 480.25 / 480.25 -500 / -500 400 / 400 Lab / Micro Data 11/29/22 06:45 11/29/22 06:45 Labs: Laboratory Results - last 24 hr 11/26/22 07:10: DEYSI-1 Antibody <0.2, SS-A/Ro IgG Antibody < 0.2, SS-B/La IgG Antibody < 0.2, Sm (Martinez) Antibody <0.2, ANSWERING SERVICE TELEPHONE OPERATOR Antibody <0.2, Scl-70 Scleroderma Ab <0.2, Double Strand DNA Ab <1, Centromere B Antibody <0.2 11/29/22 06:45: WBC 12.3 H, RBC 2.89 L, Hgb 8.4 L, Hct 27.1 L, MCV 93.8, MCH 29.1, MCHC 31.0 L, RDW Std Deviation 65.7 H, RDW Coeff of Edwar 20.1 H, Plt Count 85 L, Immature Gran % (Auto) 2.200 H, Neut % (Auto) 52.0, Lymph % (Auto) 21.2, [place] % (Auto) 23.7 H, Eos % (Auto) 0.7, Baso % (Auto) 0.2, Absolute Neuts (auto) 6.4, Absolute Lymphs (auto) 2.61, Nucleated RBC % 0.5, Differential Comment SCANNED, Diff Path Review May foll, Polychromasia RARE, Anisocytosis 2+, Mi crocytosis 1+, Macrocytosis 1+, PT 16.6 H, INR 1.3, Sodium 141, Potassium 2.6 L* , Chloride 110 H, Carbon Dioxide 26.0, Anion Gap 5, BUN 6 L, Creatinine 0.76, Estim Creat Clear Calc 40.83, Est GFR (MDRD) Af Amer 96, Est GFR (MDRD) Non-Af 79, BUN/Creatinine Ratio 7.9 L, Glucose 83, Calcium 7.0 L, Magnesium 1.9, Total Bilirubin 2.50 H, AST 135 H, ALT 52, Alkaline Phosphatase 773 H, Total Protein 5.2 L, Albumin 1.7 L, Globulin 3.5, Albumin/Globulin Ratio 0.5 L Micro: Microbiology 11/26/22 05:35 Stool Stool Occult Blood (BAILEY) - Final Occult Blood Positive 11/24/22 14:27 Blood Culture (Wb) - Anticubital Right Bacteria Detection (PCR) - Final Staphylococcus epidermidis mecA Resistance Marker 11/24/22 14:27 Blood Culture (Wb) - Anticubital Right Blood Culture - Preliminary Staphylococcus epidermidis 11/24/22 14:00 Blood Culture (Wb) - Anticubital Right Blood Culture - Preliminary No growth in 48 hours. 11/24/22 23:00 Stool Stool Lactoferrin - Final 11/24/22 23:00 Stool Enteric Bacteriology - Final 11/24/22 23:00 Stool C. difficile DNA Amplification - Final Physical Exam Narrative Alert awake oriented x 3, no acute distress s1s2 no murmurs lungs clear abdomen soft no edema Tunneled HD catheter right chest dressing clean, dry and intact Assessment & Plan Assessment/Plan (1) Acute renal failure: QUALIFIERS: Acute renal failure type: with acute tubular necrosis Qualified Code(s): N17.0 - Acute kidney failure with tubular necrosis PLAN: - Dialysis requiring oliguric CARMENZA secondary to ATN. Patient had been dialyzing at [facility] Monday schedule. Last dialysis November 22, 2022. No further need for SKATES OPERATOR. Renal function has improved. Yesterday creatinine 0.78 mg/dL, today her creatinine is 0.76 mg/dL. Urine output has increased. Okay for tunneled HD catheter to be removed. Appreciate surgery team assistance with tunneled HD catheter eventual removal. - Hypokalemia possibly from increased urine output as kidney function is improving and diarrhea. Replace potassium as ordered. Will check K+ 1500 today as replete as ordered. Patient does not need renal diet restrictions.
[2022-11-29 14:09] LABS: Albumin 2.9 g/dL (2.9-4.4); Alpha-1-Globulins 0.2 g/dL (0.0-0.4); Alpha-2-Globulins 0.6 g/dL (0.4-1.0); Cytoplasmic Ab (C-ANCA) <1:20 titer (Neg:<1:20); Gamma Globulin 1.1 g/dL (0.4-1.8); Immunoglobulin A 500 mg/dL (64-422); Immunoglobulin G 1234 mg/dL (586-1602); Immunoglobulin M 58 mg/dL (26-217); PROEL- TOTAL PROTEIN 5.6 g/dL (6.0-8.5); Perinuclear Ab (P-ANCA) <1:20 titer (Neg:<1:20)
[2022-11-29 14:09] LABS: Anti-Mitochondrial AB <20.0 Units (0.0-20.0)
--- NOTE | 2022-11-29 14:34 | CASEMGMT ---
Addendum entered by Shannen Way 11/29/22 16:26: Social Work Return call from [facility]ON[facility]. Pt was at [facility] for IV ATB and when IV ATB where complete, insurance issued non coverage at that time. [facility] encourage pt to stay private pay and pt denied, stating she could not afford. [facility] referral was made and pt did not qualify. Pt d/c home on 11/23. [facility] had been set up but pt needed to see PCP prior to start of care. SW me with pt and dgt Vaishnavi. Vaishnavi is unhappy with care pt received at [facility] and plans to take pt home. Pt has a hospital bed with rails set up in living room, a BSC, WC, transfer bench, hip kit, ramp into home and a moise lift ordered from [employer] that is not in yet. Dgt is open to referral to home health, but pt will need to see PCP [facility] prior to start of care. SW provided dgt with private duty CONTRACT IMPLEMENTATION ANALYST list. Pt's provides 24 hour care and Dgt, Son in law and grandson provide assist when they are not working. Plan: Home with Home health JES Valentin Original Note: Social Work SW met with pt to discuss discharge plan. Pt states she was at [facility] and was released due to insurance coverage ending. Pt states she was home one day when she was brought back into the hospital. Pt stating she is planning to return home with her , dgt, son in law and grandson helping. Pt citing she cannot afford to private pay at facility yet does not qualify for Medicaid. LEONORA inquired about speaking with pt radha Riggins and she is agreeable. Phone call to Dickey social science manager and VM left. Phone call to pt radha Riggins and RIGOBERTO left. SW will await return calls to continue with d/c planning. JES Foreman
[2022-11-29 16:53] LABS: Potassium 3.6 mmol/L (3.5-5.1)
--- NOTE | 2022-11-29 19:01 | PN.GI_ITS ---
Subjective Subjective Patient denies any abdominal pain she is tolerating her diarrhea has been much improved. She has not been taking quite a look at it. She also has not been taking her methotrexate and medical as an outpatient. She is on budesonide for her diarrhea. Objective Data Objective Data Vital Signs: Vital Signs Temp Pulse Resp BP Pulse Ox O2 Del Method O2 Flow Rate 97.5 F L 90 18 112/62 94 Room Air 1.5 11/29/22 14:01 11/29/22 14:01 11/29/22 14:01 11/29/22 14:01 11/29/22 14:01 11/29/22 14:01 11/29/22 02:45 Oxygen Flow Rate (L/min) 1.5 Oxygen Delivery Method Room Air Weight: 165 lb 9.074 oz Body Mass Index (BMI) 29.3 Intake & Output: Intake and Output for Last 24 Hours 11/27/22 11/28/22 11/29/22 23:59 23:59 23:59 Intake Total 2105.25 / 2105.25 250 / 250 545 / 545 Output Total 1625 / 1625 750 / 750 Balance 480.25 / 480.25 -500 / -500 544 / 544 Lab / Micro Data 11/29/22 06:45 11/29/22 16:20 Labs: Laboratory Results - last 24 hr 11/25/22 06:10: Miscellaneous Test 11/26/22 06:29: Total Protein (PEP) 5.6 L, Globulin 2.7, IgG 1234, IgA 500 H, IgM 58, Immunofixation Screen Comment, Albumin (BALA) 2.9, Albumin/Globulin (BALA) 1.1, Axvyt-2-Fgjtkixmk BALA 0.2, Qvuew-1-Jrefmekmt BALA 0.6, Beta-Globulins (BALA) 0.9, Gamma Globulins (BALA) 1.1, BALA M-Peter , BALA Comments Comment, c-ANCA Antibody <1:20, Atypical p-ANCA <1:20, p-ANCA Antibody <1:20 11/28/22 04:35: Anti-Mitochondrial Ab <20.0 11/29/22 06:45: WBC 12.3 H, RBC 2.89 L, Hgb 8.4 L, Hct 27.1 L, MCV 93.8, MCH 29.1, MCHC 31.0 L, RDW Std Deviation 65.7 H, RDW Coeff of Edwar 20.1 H, Plt Count 85 L, Immature Gran % (Auto) 2.200 H, Neut % (Auto) 52.0, Lymph % (Auto) 21.2, [place] % (Auto) 23.7 H, Eos % (Auto) 0.7, Baso % (Auto) 0.2, Absolute Neuts (auto) 6.4, Absolute Lymphs (auto) 2.61, Nucleated RBC % 0.5, Differential Comment SCANNED, Diff Path Review May foll, Polychromasia RARE, Anisocytosis 2+, Microcytosis 1+, Macrocytosis 1+, PT 16.6 H, INR 1.3, Sodium 141, Potassium 2.6 L*, Chloride 110 H, Carbon Dioxide 26.0, Anion Gap 5, BUN 6 L, Creatinine 0.76, Estim Creat Clear Calc 40.83, Est GFR (MDRD) Af Amer 96, Est GFR (MDRD) Non-Af 79, BUN/Creatinine Ratio 7.9 L, Glucose 83, Calcium 7.0 L, Magnesium 1.9, Total Bilirubin 2.50 H, AST 135 H, ALT 52, Alkaline Phosphatase 773 H, Total Protein 5.2 L, Albumin 1.7 L, Globulin 3.5, Albumin/Globulin Ratio 0.5 L 11/29/22 16:20: Potassium 3.6 Micro: Microbiology 11/24/22 14:27 Blood Culture (Wb) - Anticubital Right Bacteria Detection (PCR) - Final Staphylococcus epidermidis mecA Resistance Marker 11/24/22 14:27 Blood Culture (Wb) - Anticubital Right Blood Culture - Final Staphylococcus epidermidis 11/24/22 14:00 Blood Culture (Wb) - Anticubital Right Blood Culture - Final No growth in 5 days. 11/26/22 05:35 Stool Stool Occult Blood (BAILEY) - Final Occult Blood Positive 11/24/22 23:00 Stool Stool Lactoferrin - Final 11/24/22 23:00 Stool Enteric Bacteriology - Final 11/24/22 23:00 Stool C. difficile DNA Amplification - Final Physical Exam Narrative Alert awake oriented x 3, no acute distress s1s2 no murmurs lungs clear abdomen soft no edema Tunneled HD catheter right chest dressing clean, dry and intact Assessment & Plan Assessment/Plan (1) Colitis: (2) Anemia: (3) DIC (disseminated intravascular coagulation): (4) Hyperbilirubinemia: PLAN: Plan 72 y/o F with past medical history of IBS, Hypothyroidism, DEIDRE, Obesity, GERD, Anxiety and Depression/Schizophrenia with current diagnosis of DIC, cholestatic jaundice with transaminitis and colitis. Differential diagnosis for the colitis is ulcerative colitis, ischemic colitis. The spectrum of hypercoagulable states associated with ulcerative colitis varies from mild to severe. Although disseminated intravascular coagulation associated with ulcerative colitis is usually related to septicemia, toxic megacolon or surgery. She is on medical therapy for ulcerative colitis or ischemic colitis. Particularly ischemic colitis will spare the rectum. As she is improving we wi ll still continue current recommendations. Her MRCP t did not show any signs of primary sclerosing cholangitis as that is associated with ulcerative colitis. Awaiting biochemical work-up. Once her platelet count is normal she will need to undergo liver biopsy. Charges/Coding Visit Charges Inpatient E&M: 23409 Subs Hosp L3
[2022-11-30] VITALS (8 sets, daily range): BP systolic 105–135; BP diastolic 60–73; PULSE 68–96; RESP 16–18; TEMP 36.5–37.1; O2SAT 94–95
[2022-11-30] MEDS: Levothyroxine 75 MCG Tablet PO (05:45)
[2022-11-30] MEDS: Carbidopa/Levodopa 25/100 Tablet PO ×3 (05:45→16:27)
[2022-11-30 06:32] LABS: Absolute Lymphocyte Count 2.77 X10^3/uL (0.83-4.51); Absolute Neutrophil Count 6.8 X10^3/uL (2.0-7.7); Basophil# 0.02 X10^3/uL; Basophil% 0.2 % (0-1); Eosinophil# 0.12 X10^3/uL; Hematocrit 28.4 % (37-47); Hemoglobin 8.9 g/dL (12.0-15.0); Lymphocyte # 2.77 X10^3/ul (0.83-4.51); Lymphocyte % 22.2 % (19-41); Mean Corp Hgb Conc 31.3 g/dL (32-36); Mean Corpuscular Hgb 29.4 pg (27.0-32.0); Mean Corpuscular Volume 93.7 fL (81-99); Mean Platelet Vol. 13.4 fl (6.2-12.0); Monocyte# 2.53 X10^3/uL; Monocyte% 20.2 % (0-10); NRBC Flagged by Analyzer 0.6 % (0-5); Neutrophil # 6.79 X10^3/uL (2.7-7.7); Neutrophil % 54.2 % (47-70); POSITIVE DIFFERENTIAL YES; POSITIVE MORPHOLOGY YES; Platelet Count 128 K/mm3 (150-450); RBC Distribution Width CV 20.6 % (11.6-14.6); RBC Distribution Width SD 68.1 fl (35.1-43.9); Red Blood Count 3.03 M/mm3 (4.2-5.4); White Blood Count 12.5 K/mm3 (4.4-11.0)
[2022-11-30 06:36] LABS: Differential Indicated SCAN CRITERIA MET
[2022-11-30 06:48] LABS: Anisocytosis 2+
[2022-11-30 07:02] LABS: ALB/GLOB Ratio 0.5 RATIO (0.9-2.4); AST(SGOT) 128 U/L (15-37); Alanine Aminotransfer ALT/SGPT 42 U/L (13-56); Albumin, Serum 1.8 g/dL (3.2-5.0); Alkaline Phosphatase 760 U/L (45-117); Anion Gap 7 (5-15); BUN 11 mg/dL (7-18); Calcium,Total 7.3 mg/dL (8.5-10.1); Chloride 111 mmol/L (98-107); Creatinine, Serum 0.79 mg/dL (0.55-1.02); EST Glomerular Filtration Rate 76 mL/min (>60); Est Glom Filt Rate - Afr Amer 92 mL/min (>60); Estimated Creatinine Clearance 40.83 ml/min; Globulin 3.9 g/dL (2.2-4.2); Glucose 81 mg/dL (74-106); Potassium 3.9 mmol/L (3.5-5.1); Protein, Total 5.7 g/dL (6.4-8.2); Sodium Level 140 mmol/L (136-145)
[2022-11-30 07:03] LABS: Phosphorus 0.7 mg/dL (2.5-4.9)
--- NOTE | 2022-11-30 07:52 | PCM.PN.HOSP ---
Reason for Visit Reason for Visit: Diagnoses Anemia, unspecified (11/24/22) Disseminated intravascular coagulation [defibrination syndrome] (11/24/22) Thrombocytopenia, unspecified (11/24/22) Elevated white blood cell count, unspecified (11/24/22) Other disorders of bilirubin metabolism (11/24/22) Hypomagnesemia (11/24/22) Hypokalemia (11/24/22) Noninfective gastroenteritis and colitis, unspecified (11/24/22) Calculus of gallbladder with acute cholecystitis without obstruction (11/24/22) Obstruction of bile duct (11/24/22) Acute kidney failure with tubular necrosis (11/24/22) Acute kidney failure, unspecified (11/24/22) Diarrhea, unspecified (11/24/22) Subjective Subjective Abdomen feeling better. Diarrhea improved. Objective Data Objective Data Vital Signs: Vital Signs Temp Pulse Resp BP Pulse Ox O2 Del Method O2 Flow Rate 36.8 C 96 18 122/62 H 94 Room Air 1.5 11/30/22 05:41 11/30/22 05:41 11/30/22 05:41 11/30/22 05:41 11/30/22 05:41 11/30/22 05:41 11/29/22 02:45 Oxygen Flow Rate (L/min) 1.5 Oxygen Delivery Method Room Air Weight: 75.1 kg Body Mass Index (BMI) 29.3 Intake & Output: Intake and Output for Last 24 Hours 11/28/22 11/29/22 11/30/22 23:59 23:59 23:59 Intake Total 250 / 250 745 / 745 50 / 50 Output Total 750 / 750 Balance -500 / -500 744 / 744 50 / 50 Lab / Micro Data 11/30/22 05:55 11/30/22 05:55 Labs: Laboratory Results - last 24 hr 11/25/22 06:10: Miscellaneous Test 11/26/22 06:29: Total Protein (PEP) 5.6 L, Globulin 2.7, IgG 1234, IgA 500 H, IgM 58, Immunofixation Screen Comment, Albumin (BALA) 2.9, Albumin/Globulin (BALA) 1.1, Gscin-7-Gbmlurnng BALA 0.2, Tbaeo-5-Ayszufads BALA 0.6, Beta-Globulins (BALA) 0.9, Gamma Globulins (BALA) 1.1, BALA M-Peter , BALA Comments Comment, c-ANCA Antibody <1:20, Atypical p-ANCA <1:20, p-ANCA Antibody <1:20, Miscellaneous Test 11/28/22 04:35: Anti-Mitochondrial Ab <20.0 11/29/22 06:45: Sodium 141, Potassium 2.6 L*, Chloride 110 H, Carbon Dioxide 26.0, Anion Gap 5, BUN 6 L, Creatinine 0.76, Estim Creat Clear Calc 40.83, Est GFR (MDRD) Af Amer 96, Est GFR (MDRD) Non-Af 79, BUN/Creatinine Ratio 7.9 L, Glucose 83, Calcium 7.0 L, Magnesium 1.9, Total Bilirubin 2.50 H, AST 135 H, ALT 52, Alkaline Phosphatase 773 H, Total Protein 5.2 L, Albumin 1.7 L, Globulin 3.5, Albumin/Globulin Ratio 0.5 L 11/29/22 16:20: Potassium 3.6 11/30/22 05:55: WBC 12.5 H, RBC 3.03 L, Hgb 8.9 L, Hct 28.4 L, MCV 93.7, MCH 29.4, MCHC 31.3 L, RDW Std Deviation 68.1 H, RDW Coeff of Edwar 20.6 H, Plt Count 128 L, MPV 13.4 H, Immature Gran % (Auto) 2.200 H, Neut % (Auto) 54.2, Lymph % (Auto) 22.2, [place] % (Auto) 20.2 H, Eos % (Auto) 1.0, Baso % (Auto) 0.2, Absolute Neuts (auto) 6.8, Absolute Lymphs (auto) 2.77, Nucleated RBC % 0.6, Diff Path Review September, Anisocytosis 2+, Sodium 140, Potassium 3.9, Chloride 111 H, Carbon Dioxide 22.0, Anion Gap 7, BUN 11, Creatinine 0.79, Estim Creat Clear Calc 40.83, Est GFR (MDRD) Af Amer 92, Est GFR (MDRD) Non-Af 76, BUN/Creatinine Ratio 14.0, Glucose 81, Calcium 7.3 L, Phosphorus 0.7 L*, Total Bilirubin 2.50 H, AST 128 H, ALT 42, Alkaline Phosphatase 760 H, Total Protein 5.7 L, Albumin 1.8 L, Globulin 3.9, Albumin/Globulin Ratio 0.5 L Micro: Microbiology 11/24/22 14:27 Blood Culture (Wb) - Anticubital Right Bacteria Detection (PCR) - Final Staphylococcus epidermidis mecA Resistance Marker 11/24/22 14:27 Blood Culture (Wb) - Anticubital Right Blood Culture - Final Staphylococcus epidermidis 11/24/22 14:00 Blood Culture (Wb) - Anticubital Right Blood Culture - Final No growth in 5 days. 11/26/22 05:35 Stool Stool Occult Blood (BAILEY) - Final Occult Blood Positive 11/24/22 23:00 Stool Stool Lactoferrin - Final 11/24/22 23:00 Stool Enteric Bacteriology - Final 11/24/22 23:00 Stool C. difficile DNA Amplification - Final Physical Exam Const alert and no apparent distress HEENT head/scalp atraumatic and moist oral mucous membranes Neck no lymphadenopathy and supple Resp normal respiratory effort and no retractions Cardio regular rate, regular rhythm, S1 normal heart sound and S2 normal heart sound GI normal to inspection, nondistended, normoactive bowel sounds, soft to palpation and non-tender Extremity normal to inspection Assessment & Plan Assessment/Plan (1) DIC (disseminated intravascular coagulation): PLAN: Acute Remains with no current signs of acute hemorrhage Platelets trending up Fibrinogen has normalized Patient with elevated direct bilirubin and normal indirect Patient received 5 units of FFP Oncology following-appreciate input Repeat coags, CBC, and fibrinogen in the a.m. (2) Thrombocytopenia: PLAN: Acute thrombocytopenia secondary to DIC, improving Platelet count was normal in early October with her first abnormal lab being on 10/31/2022 ADAMTS 13 pending--> very low suspicion for TTP at this point HIT antibody pending as patient had been receiving heparin with dialysis No need for current platelet transfusion Oncology is following-appreciate input (3) Hypokalemia: PLAN: Resolved. Continue to replace. Replace hypomag (4) Hypomagnesemia: PLAN: replace (5) Acute renal failure: QUALIFIERS: Acute renal failure type: with acute tubular necrosis Qualified Code(s): N17.0 - Acute kidney failure with tubular necrosis PLAN: 2/2 ATN improving nephrology consulted. Tunneled HD cath to be removed as outpt with general surgery. (6) Colitis: PLAN: GI on consult UC v ischemic colitis colonoscopy CT shows mild colitis of colon Clinical exam is improving and patient is tolerating a p.o. diet -Advance diet to full's and then regular if she does well -Stop IV fluids Autoimmune work-up is pending Could be ischemic with DIC Continue to monitor Budesonide and mesalamine initiated GI following-appreciate input add Imodium (7) Anemia: PLAN: Acute on chronic anemia Baseline hemoglobin until October was between 11 and 12 Since October hemoglobin has been between 8.5 and 9.5 6.9 a.m. of 11/25/2022 and 1 unit packed red blood cells given Black stool was positive GI is following -We will need colonoscopy once DIC has resolved -Mesalamine and budesonide were initiated (8) Hyperbilirubinemia: PLAN: Elevated alk phos/bilirubin Alk phos is remaining elevated but fluctuating -GGT is markedly elevated so this is a biliary source not from her hip and bone issues MRCP is unremarkable Discussed with GI and they asked that we start 250 mg of ursodiol twice daily--> question PBC Autoimmune work-up in progress as well Plans for cholecystectomy have been stopped Tried to speak w GI re: biopsy timing. Will reattempt. (9) Hypophosphatemia: PLAN: replace PLAN: Plan Chronic conditions: Left hip osteoarthritis status post prosthetic joint infection-Nonweightbearing on left lower extremity-May need to get PT/OT involvement-Slipped antibiotic spacer in place-Follows with Dr. Frances Parkinson's disease-Continue carbidopa levodopa History of rheumatoid arthritis-Patient had previously been on methotrexate/oxy chloroquine/folic acid-All medications are currently on hold due to infection Hyperlipidemia-Continue statin Hypothyroidism-Continue levothyroxine Depression-Continue citalopram-Continue olanzapine GERD-Continue PPI DVT prophylaxis -On hold due to acute anemia and thrombocytopenia -SCDs CODE STATUS -Full code Greater than 50 minutes of which greater than 50% of time was discussing with the patient's daughter, Vaishnavi, about her mother's case. Explained that I was keeping the patient here to get things probably tuned up before discharge. She expressed concerns about the patient going home with home care because the patient's is currently in the emergency room. Unclear if he will be able to go home or not at this point in time. Told her that we would talk with social work and case management to see if skilled nurse facility could be an option but also encouraged she speak with her mother in regards to her concerns and make sure that her mother is also on board with this, too. Charges/Coding Visit Charges Inpatient E&M: 82258 Subs Hosp L3
[2022-11-30] MEDS: Mesalamine 1.2 GM Tablet 2.4 GM PO (08:41)
[2022-11-30] MEDS: Citalopram 20 MG Tablet PO (08:41)
[2022-11-30] MEDS: Juven (unflavored) Packet 1 PACKET PO ×2 (08:41→16:27)
[2022-11-30] MEDS: Pantoprazole Sodium 40 MG Tablet PO (08:41)
[2022-11-30] MEDS: Budesonide 3 MG CAPSULE.EC 9 MG PO (08:41)
[2022-11-30] MEDS: Ursodiol 250 MG Tablet PO ×2 (08:42→21:03)
[2022-11-30] MEDS: Nystatin Powder 15gm Bottle 1 APPLIC TOPICAL ×2 (08:42→21:02)
[2022-11-30] MEDS: Loperamide 2 MG Capsule PO (08:56)
--- NOTE | 2022-11-30 09:07 | CASEMGMT ---
Discharge Planning Referral made to [facility] via [facility] for PT/OT/SN. Domenica Santos, Discharge Planning Asst.
[2022-11-30] MEDS: Ferrous Sulfate 325 MG Tablet PO (11:42)
--- NOTE | 2022-11-30 11:42 | CASEMGMT ---
Addendum entered by Ayaka Montano 12/01/22 12:35: Late entry for 11/30/22 @ 1115: JOSE ASH spoke w/dtr. She was made aware anticipate pt will be ready for d/c tomorrow 12/01. She was also notified that [facility] able to accept pt and she is aware Dr Herrmann requires office visit prior to following for HHC orders. Dtr informed JOSE ASH is working on getting appt w/Dr Herrmann tomorrow 12/01 to be seen in his office after she d/c's from [facility] prior to going home. Original Note: JOSE ASH NOTE: Per Dr Mark, he anticipates pt will be ready for discharge tomorrow. Per Brijesh, [facility] able to accept pt. Call to Dr Herrmann's office and spoke w/secretary of police. Appt scheduled for tomorrow @ 3 PM w/Dr Herrmann as pt wishes to start HHC and Dr Herrmann requires seeing his pt's in the office prior to following for HHC orders. Pt made aware that [facility] is able to accept her and made aware of appt w/Dr Herrmann tomorrow @ 3 PM. She voices understanding. Spoke w/Fran @ [facility]. He states they have received the Milvia lift and have arranged to have it delivered to pt's home on Monday. He states they are available to deliver it tomorrow, but dtr was not able to guarantee someone would be at the home tomorrow for the delivery so she arranged it for Mon. Pt made aware. She states will be okay d/c'ing home tomorrow w/out the Milvia, stating her MIREYA can lift her up and transfer her to/from car and to/from bed to W/C. Lisa SOLANO RN, CM
--- NOTE | 2022-11-30 12:10 | PN.RENAL_ITS ---
Subjective Subjective Resting in bed. No complaints. Reports less loose stools today. No overnight events. Objective Data Objective Data Vital Signs: Vital Signs Temp Pulse Resp BP Pulse Ox O2 Del Method O2 Flow Rate 97.7 F L 78 18 135/67 H 94 Room Air 1.5 11/30/22 10:00 11/30/22 10:00 11/30/22 10:00 11/30/22 10:00 11/30/22 10:59 11/30/22 10:59 11/29/22 02:45 Oxygen Flow Rate (L/min) 1.5 Oxygen Delivery Method Room Air Weight: 75.1 kg Body Mass Index (BMI) 29.3 Intake & Output: Intake and Output for Last 24 Hours 11/28/22 11/29/22 11/30/22 23:59 23:59 23:59 Intake Total 250 / 250 745 / 745 100 / 100 Output Total 750 / 750 1 / Balance -500 / -500 744 / 744 100 / 100 Lab / Micro Data 11/30/22 05:55 11/30/22 05:55 Labs: Laboratory Results - last 24 hr 11/25/22 06:10: Miscellaneous Test 11/26/22 06:29: Total Protein (PEP) 5.6 L, Globulin 2.7, IgG 1234, IgA 500 H, IgM 58, Immunofixation Screen Comment, Albumin (BALA) 2.9, Albumin/Globulin (BALA) 1.1, Fyret-0-Wgvbbbdzi BALA 0.2, Iqjdb-6-Mwcvaajvd BALA 0.6, Beta-Globulins (BALA) 0.9, Gamma Globulins (BALA) 1.1, BALA M-Peter , BALA Comments Comment, c-ANCA Antibody <1:20, Atypical p-ANCA <1:20, p-ANCA Antibody <1:20, Miscellaneous Test 11/28/22 04:35: Anti-Mitochondrial Ab <20.0 11/29/22 16:20: Potassium 3.6 11/30/22 05:55: WBC 12.5 H, RBC 3.03 L, Hgb 8.9 L, Hct 28.4 L, MCV 93.7, MCH 29.4, MCHC 31.3 L, RDW Std Deviation 68.1 H, RDW Coeff of Edwar 20.6 H, Plt Count 128 L, MPV 13.4 H, Immature Gran % (Auto) 2.200 H, Neut % (Auto) 54.2, Lymph % (Auto) 22.2, [place] % (Auto) 20.2 H, Eos % (Auto) 1.0, Baso % (Auto) 0.2, Absolute Neuts (auto) 6.8, Absolute Lymphs (auto) 2.77, Nucleated RBC % 0.6, Diff Path Review September, Anisocytosis 2+, Sodium 140, Potassium 3.9, Chloride 111 H, Carbon Dioxide 22.0, Anion Gap 7, BUN 11, Creatinine 0.79, Estim Creat Clear Calc 40.83, Est GFR (MDRD) Af Amer 92, Est GFR (MDRD) Non-Af 76, BUN/Creatinine Ratio 14.0, Glucose 81, Calcium 7.3 L, Phosphorus 0.7 L*, Total Bilirubin 2.50 H , AST 128 H, ALT 42, Alkaline Phosphatase 760 H, Total Protein 5.7 L, Albumin 1.8 L, Globulin 3.9, Albumin/Globulin Ratio 0.5 L Micro: Microbiology 11/24/22 14:27 Blood Culture (Wb) - Anticubital Right Bacteria Detection (PCR) - Final Staphylococcus epidermidis mecA Resistance Marker 11/24/22 14:27 Blood Culture (Wb) - Anticubital Right Blood Culture - Final Staphylococcus epidermidis 11/24/22 14:00 Blood Culture (Wb) - Anticubital Right Blood Culture - Final No growth in 5 days. 11/26/22 05:35 Stool Stool Occult Blood (BAILEY) - Final Occult Blood Positive 11/24/22 23:00 Stool Stool Lactoferrin - Final 11/24/22 23:00 Stool Enteric Bacteriology - Final 11/24/22 23:00 Stool C. difficile DNA Amplification - Final Physical Exam Narrative Alert awake oriented x 3, no acute distress s1s2 no murmurs lungs clear abdomen soft no edema Tunneled HD catheter right chest dressing clean, dry and intact Assessment & Plan Assessment/Plan (1) Acute renal failure: QUALIFIERS: Acute renal failure type: with acute tubular necrosis Qualified Code(s): N17.0 - Acute kidney failure with tubular necrosis PLAN: - Dialysis requiring oliguric CARMENZA secondary to ATN. Patient had been dialyzing at [facility] Monday schedule. Last dialysis November 22, 2022. No further need for [employer]. Renal function has improved. Yesterday creatinine 0.76 mg/dL, today her creatinine is 0.79 mg/dL. Urine output has increased. Okay for tunneled HD catheter to be removed. Appreciate surgery team assistance with tunneled HD catheter eventual removal. - Hypokalemia possibly from increased urine output as kidney function is improving and diarrhea. Improved with potassium supplement. Patient does not need renal diet restrictions. -Phosphorus low, supplement ordered. We will check phosphorus in a.m. Patient is not on any phosphate binders -Thrombocytopenia, platelets improving.
[2022-11-30] MEDS: Pravastatin 40 MG Tablet PO (21:02)
[2022-11-30] MEDS: OLANZapine 2.5 MG Tablet 7.5 MG PO (21:03)
[2022-12-01] VITALS (15 sets, daily range): BP systolic 97–143; BP diastolic 46–75; PULSE 64–93; RESP 16–22; TEMP 36.2–37.2; O2SAT 94–100
[2022-12-01 07:04] LABS: Absolute Neutrophil Count 5.9 X10^3/uL (2.0-7.7); Basophil# 0.02 X10^3/uL; Basophil% 0.2 % (0-1); Eosinophil# 0.09 X10^3/uL; Eosinophils% 0.9 % (0-5); Hematocrit 26.9 % (37-47); Hemoglobin 8.2 g/dL (12.0-15.0); Lymphocyte % 19.3 % (19-41); Mean Corp Hgb Conc 30.5 g/dL (32-36); Mean Corpuscular Hgb 29.1 pg (27.0-32.0); Mean Corpuscular Volume 95.4 fL (81-99); Mean Platelet Vol. 12.7 fl (6.2-12.0); Monocyte# 1.77 X10^3/uL; Monocyte% 17.9 % (0-10); NRBC Flagged by Analyzer 0.6 % (0-5); Neutrophil # 5.85 X10^3/uL (2.7-7.7); Neutrophil % 59.3 % (47-70); POSITIVE DIFFERENTIAL YES; POSITIVE MORPHOLOGY YES; Platelet Count 148 K/mm3 (150-450); RBC Distribution Width CV 21.1 % (11.6-14.6); RBC Distribution Width SD 72.7 fl (35.1-43.9); Red Blood Count 2.82 M/mm3 (4.2-5.4); White Blood Count 9.9 K/mm3 (4.4-11.0)
[2022-12-01 07:07] LABS: Differential Indicated SCAN CRITERIA MET
[2022-12-01 07:17] LABS: Anisocytosis 2+; Hypochromasia 1+; Platelet Estimate SLT DEC (ADEQ)
[2022-12-01 07:26] LABS: ALB/GLOB Ratio 0.5 RATIO (0.9-2.4); AST(SGOT) 94 U/L (15-37); Alanine Aminotransfer ALT/SGPT 42 U/L (13-56); Albumin, Serum 1.6 g/dL (3.2-5.0); Alkaline Phosphatase 643 U/L (45-117); Anion Gap 7 (5-15); BUN 12 mg/dL (7-18); Chloride 113 mmol/L (98-107); Creatinine, Serum 0.67 mg/dL (0.55-1.02); EST Glomerular Filtration Rate 92 mL/min (>60); Est Glom Filt Rate - Afr Amer 111 mL/min (>60); Estimated Creatinine Clearance 40.83 ml/min; Globulin 3.5 g/dL (2.2-4.2); Glucose 79 mg/dL (74-106); Magnesium 1.4 mg/dL (1.6-2.6); Phosphorus 1.9 mg/dL (2.5-4.9); Potassium 3.1 mmol/L (3.5-5.1); Protein, Total 5.1 g/dL (6.4-8.2); Sodium Level 141 mmol/L (136-145)
--- NOTE | 2022-12-01 08:36 | PCM.PN.HOSP ---
Reason for Visit Reason for Visit: Diagnoses Anemia, unspecified (11/24/22) Disseminated intravascular coagulation [defibrination syndrome] (11/24/22) Thrombocytopenia, unspecified (11/24/22) Elevated white blood cell count, unspecified (11/24/22) Other disorders of bilirubin metabolism (11/24/22) Other disorders of phosphorus metabolism (11/24/22) Hypomagnesemia (11/24/22) Hypokalemia (11/24/22) Noninfective gastroenteritis and colitis, unspecified (11/24/22) Calculus of gallbladder with acute cholecystitis without obstruction (11/24/22) Obstruction of bile duct (11/24/22) Acute kidney failure with tubular necrosis (11/24/22) Acute kidney failure, unspecified (11/24/22) Diarrhea, unspecified (11/24/22) Subjective Subjective No events overnight. Feels better. Objective Data Objective Data Vital Signs: Vital Signs Temp Pulse Resp BP Pulse Ox O2 Del Method O2 Flow Rate 36.8 C 70 16 135/64 H 94 Room Air 1.5 12/01/22 02:35 12/01/22 02:41 12/01/22 02:35 12/01/22 02:35 12/01/22 07:33 12/01/22 07:33 11/29/22 02:45 Oxygen Flow Rate (L/min) 1.5 Oxygen Delivery Method Room Air Weight: 75.1 kg Body Mass Index (BMI) 29.3 Intake & Output: Intake and Output for Last 24 Hours 11/29/22 11/30/22 12/01/22 23:59 23:59 23:59 Intake Total 745 / 793 512.5838 / 903.3333 50 / 50 Output Total 600 / 600 400 / 400 Balance 744 / 224 130.7192 / 303.3333 -350 / -350 Lab / Micro Data 12/01/22 06:10 12/01/22 06:10 Labs: Laboratory Results - last 24 hr 11/25/22 09:25: Miscellaneous Test 11/25/22 09:25: Miscellaneous Test 12/01/22 06:10: WBC 9.9, RBC 2.82 L, Hgb 8.2 L, Hct 26.9 L, MCV 95.4, MCH 29.1, MCHC 30.5 L, RDW Std Deviation 72.7 H, RDW Coeff of Edwar 21.1 H, Plt Count 148 L, MPV 12.7 H, Immature Gran % (Auto) 2.400 H, Neut % (Auto) 59.3, Lymph % (Auto) 19.3, [place] % (Auto) 17.9 H, Eos % (Auto) 0.9, Baso % (Auto) 0.2, Absolute Neuts (auto) 5.9, Absolute Lymphs (auto) 1.90, Nucleated RBC % 0.6, Platelet Estimate SLT DEC, Hypochromasia 1+, Anisocytosis 2+, Sodium 141, Potassium 3.1 L, Chloride 113 H, Carbon Dioxide 21.0, Anion Gap 7, BUN 12, Creatinine 0.67, Estim Creat Clear Calc 40.83, Est GFR (MDRD) Af Amer 111, Est GFR (MDRD) Non-Af 92, BUN/Creatinine Ratio 18.0, Glucose 79, Calcium 7.0 L, Phosphorus 1.9 L, Magnesium 1.4 L, Total Bilirubin 2.00 H, AST 94 H, ALT 42, Alkaline Phosphatase 643 H, Total Protein 5.1 L, Albumin 1.6 L, Globulin 3.5, Albumin/Globulin Ratio 0.5 L Micro: Microbiology 11/24/22 14:27 Blood Culture (Wb) - Anticubital Right Bacteria Detection (PCR) - Final Staphylococcus epidermidis mecA Resistance Marker 11/24/22 14:27 Blood Culture (Wb) - Anticubital Right Blood Culture - Final Staphylococcus epidermidis 11/24/22 14:00 Blood Culture (Wb) - Anticubital Right Blood Culture - Final No growth in 5 days. 11/26/22 05:35 Stool Stool Occult Blood (BAILEY) - Final Occult Blood Positive 11/24/22 23:00 Stool Stool Lactoferrin - Final 11/24/22 23:00 Stool Enteric Bacteriology - Final 11/24/22 23:00 Stool C. difficile DNA Amplification - Final Physical Exam Const alert and no apparent distress Resp normal respiratory effort, no retractions, no use of accessory muscles and clear to auscultation bilaterally Cardio regular rate, regular rhythm, S1 normal heart sound and S2 normal heart sound GI normal to inspection, nondistended, normoactive bowel sounds, soft to palpation, non-tender and non-distended Assessment & Plan Assessment/Plan (1) DIC (disseminated intravascular coagulation): PLAN: Acute, resolved. Remains with no current signs of acute hemorrhage Platelets trending up Fibrinogen has normalized Patient with elevated direct bilirubin and normal indirect Patient received 5 units of FFP Oncology following-appreciate input Repeat coags, CBC, and fibrinogen in the a.m. (2) Thrombocytopenia: PLAN: Acute thrombocytopenia secondary to DIC, improving Platelet count was normal in early October with her first abnormal lab being on 10/31/2022 ADAMTS 13 pending--> very low suspicion for TTP at this point HIT antibody pending as patient had been receiving heparin with dialysis No need for current platelet transfusion Oncology is following-appreciate input (3) Hypokalemia: PLAN: Continue to replace. Replace hypomag (4) Hypomagnesemia: PLAN: replace (5) Acute renal failure: QUALIFIERS: Acute renal failure type: with acute tubular necrosis Qualified Code(s): N17.0 - Acute kidney failure with tubular necrosis PLAN: 06/23 ATN improving nephrology consulted. Tunneled HD cath to be removed as outpt with general surgery. (6) Colitis: PLAN: GI on consult UC v ischemic colitis colonoscopy CT shows mild colitis of colon Clinical exam is improving and patient is tolerating a p.o. diet -Advance diet to full's and then regular if she does well -Stop IV fluids Autoimmune work-up is pending Could be ischemic with DIC Continue to monitor Budesonide and mesalamine initiated GI following-appreciate input add Imodium (7) Anemia: PLAN: Acute on chronic anemia Baseline hemoglobin until October was between 11 and 12 6.9 a.m. of 11/25/2022 and 1 unit packed red blood cells given Hg overall stable. No need for TF at this time. (8) Hyperbilirubinemia: PLAN: Elevated alk phos/bilirubin Alk phos is remaining elevated but fluctuating -GGT is markedly elevated so this is a biliary source not from her hip and bone issues MRCP is unremarkable Discussed with GI and they asked that we start 250 mg of ursodiol twice daily--> question PBC Autoimmune work-up in progress as well Plans for cholecystectomy have been stopped 11/30: MICHAELA Diaz for liver Bx, which has been ordered. (9) Hypophosphatemia: PLAN: Improved after replacement Will replace again today. PLAN: Plan Chronic conditions: Left hip osteoarthritis status post prosthetic joint infection-Nonweightbearing on left lower extremity-May need to get PT/OT involvement-Slipped antibiotic spacer in place-Follows with Dr. Frances Parkinson's disease-Continue carbidopa levodopa History of rheumatoid arthritis-Patient had previously been on methotrexate/oxy chloroquine/folic acid-All medications are currently on hold due to infection Hyperlipidemia-Continue statin Hypothyroidism-Continue levothyroxine Depression-Continue citalopram-Continue olanzapine GERD-Continue PPI DVT prophylaxis -On hold due to acute anemia and thrombocytopenia -SCDs CODE STATUS -Full code 11/30: I discussed with patient's daughter, Vaishnavi, about her mother's case. Explained that I was keeping the patient here to get things probably tuned up before discharge. She expressed concerns about the patient going home with home care because the patient's is currently in the emergency room. Unclear if he will be able to go home or not at this point in time. Told her that we would talk with social work and case management to see if skilled nurse facility could be an option but also encouraged she speak with her mother in regards to her concerns and make sure that her mother is also on board with this, too. Plan is home with [facility].
[2022-12-01] MEDS: Magnesium Sulfate 4gm/100mL 4 GM/100 ML IV.SOLN. IV (09:17)
[2022-12-01] MEDS: Nystatin Powder 15gm Bottle 1 APPLIC TOPICAL (09:17)
[2022-12-01 10:21] LABS: Pathologist Review Reviewed
[2022-12-01 10:22] LABS: Pathologist Review Reviewed
--- NOTE | 2022-12-01 10:23 | PN.RENAL_ITS ---
Subjective Subjective Resting in bed. No overnight events. Reports less loose bowel movements Objective Data Objective Data Vital Signs: Vital Signs Temp Pulse Resp BP Pulse Ox O2 Del Method O2 Flow Rate 98.9 F 91 18 143/75 H 95 Room Air 1.5 12/01/22 08:51 12/01/22 08:51 12/01/22 08:51 12/01/22 08:51 12/01/22 08:59 12/01/22 08:59 11/29/22 02:45 Oxygen Flow Rate (L/min) 1.5 Oxygen Delivery Method Room Air Weight: 75.1 kg Body Mass Index (BMI) 29.3 Intake & Output: Intake and Output for Last 24 Hours 11/29/22 11/30/22 12/01/22 23:59 23:59 23:59 Intake Total 745 / 018 098.5502 / 903.3333 100 / 100 Output Total 600 / 600 400 / 400 Balance 744 / 918 842.8333 / 303.3333 -300 / -300 Lab / Micro Data 12/01/22 06:10 12/01/22 06:10 Labs: Laboratory Results - last 24 hr 11/25/22 09:25: Miscellaneous Test 11/25/22 09:25: Miscellaneous Test 11/29/22 06:45: Diff Path Review Reviewed 11/30/22 05:55: Diff Path Review Reviewed 12/01/22 06:10: WBC 9.9, RBC 2.82 L, Hgb 8.2 L, Hct 26.9 L, MCV 95.4, MCH 29.1, MCHC 30.5 L, RDW Std Deviation 72.7 H, RDW Coeff of Edwar 21.1 H, Plt Count 148 L, MPV 12.7 H, Immature Gran % (Auto) 2.400 H, Neut % (Auto) 59.3, Lymph % (Auto) 19.3, [place] % (Auto) 17.9 H, Eos % (Auto) 0.9, Baso % (Auto) 0.2, Absolute Neuts (auto) 5.9, Absolute Lymphs (auto) 1.90, Nucleated RBC % 0.6, Platelet Estimate SLT DEC, Hypochromasia 1+, Anisocytosis 2+, Sodium 141, Potassium 3.1 L, Chloride 113 H, Carbon Dioxide 21.0, Anion Gap 7, BUN 12, Creatinine 0.67, Estim Creat Clear Calc 40.83, Est GFR (MDRD) Af Amer 111, Est GFR (MDRD) Non-Af 92, BUN/Creatinine Ratio 18.0, Glucose 79, Calcium 7.0 L, Phosphorus 1.9 L, Magnesium 1.4 L, Total Bilirubin 2.00 H, AST 94 H, ALT 42, Alkaline Phosphatase 643 H, Total Protein 5.1 L, Albumin 1.6 L, Globulin 3.5, Albumin/Globulin Ratio 0.5 L Micro: Microbiology 11/24/22 14:27 Blood Culture (Wb) - Anticubital Right Bacteria Detection (PCR) - Final Staphylococcus epidermidis mecA Resistance Marker 11/24/22 14:27 Blood Culture (Wb) - Anticubital Right Blood Culture - Final Staphylococcus epidermidis 11/24/22 14:00 Blood Culture (Wb) - Anticubital Right Blood Culture - Final No growth in 5 days. 11/26/22 05:35 Stool Stool Occult Blood (BAILEY) - Final Occult Blood Positive 11/24/22 23:00 Stool Stool Lactoferrin - Final 11/24/22 23:00 Stool Enteric Bacteriology - Final 11/24/22 23:00 Stool C. difficile DNA Amplification - Final Physical Exam Narrative Alert awake oriented x 3, no acute distress s1s2 no murmurs lungs clear abdomen soft no edema Tunneled HD catheter right chest dressing clean, dry and intact Assessment & Plan Assessment/Plan (1) Acute renal failure: QUALIFIERS: Acute renal failure type: with acute tubular necrosis Qualified Code(s): N17.0 - Acute kidney failure with tubular necrosis PLAN: - Dialysis requiring oliguric CARMENZA secondary to ATN. Patient had been dialyzing at [facility] Monday schedule. Last dialysis November 22, 2022. No further need for [employer]. Renal function has improved; CARMENZA resolved. Yesterday creatinine 0.79 mg/dL, today her creatinine is 0.67 mg/dL. Urine output has increased. Okay for tunneled HD catheter to be removed. Appreciate surgery team assistance with tunneled HD catheter eventual removal. - Hypokalemia possibly from increased urine output as kidney function is improving, poor oral intake and diarrhea. Improved with potassium supplement. Patient does not need renal diet restrictions. Replete potassium again today -Phosphorus and magnesium low, being repleted today. also ordered neutra phos -Thrombocytopenia, platelets improving.
--- NOTE | 2022-12-01 12:00 | CASEMGMT ---
Addendum entered by Ayaka Montano 12/01/22 13:10: Call to alumnae secretary@ Dr Herrmann's office. Today's appt changed to 3:40 PM, as IV infusion was not going to be finished for pt to get to appt by 3 PM. JOSE Leavitt, made aware and will notify pt when she returns to [facility]. Original Note: JOSE ASH NOTE: Pt to have liver biopsy @ 12:[address] Mark states plans to discharge pt home today afterwards. He was made aware pt has an appt scheduled w/Dr Herrmann today @ 3 PM after discharge, so he can follow for [facility]. dioramist and RN, Dagmar, made aware as well and Dagmar will work on getting pt discharged prior to then. Pt aware of above and states will contact her to have him come in around 2 PM to review d/c instructions w/JOSE and to take her to Dr Herrmann's appt in a W/C. Pt denies having other d/c needs or concerns. Lisa SOLANO RN CM
--- NOTE | 2022-12-01 12:30 | CT_ITS ---
PROCEDURE: CT DIRECTED CORE LIVER BIOPSY INDICATION: Female, 72 years old. Jaundice PHYSICIAN: Dr. Robinson Nino CONSENT: Written informed consent was obtained having explained the risks, benefits and alternatives in detail with the patient who accepted the risks and agreed to proceed. Laboratory review and clinical assessment was performed. CONSCIOUS SEDATION PROTOCOL: The Drugs used were: 2 mg Versed, IV., and 50 mcg Fentanyl, IV. The sedation time was: 16 minutes. Conscious sedation was started at 1:16 PM and terminated at 1:22 PM. The conscious sedation protocol was independently monitored. RADIATION DOSAGE (If Supplied By Facility): CTDIvol = ( 21 ) mGy, DLP = ( 473.43 ) mGycm Individualized dose optimization techniques were used for this CT. TECHNIQUE: Using CT image guidance with image documentation, a suitable location in the left lobe of the liver was identified. Using an anterior approach, puncture of the liver was uneventful with an 18-gauge core needle system. 3, 18-gauge core samples were obtained, and submitted in formalin to the pathologist for further assessment. Followup CT scan revealed no distinct sequelae. CT/Biopsy/Inj or Needle Placement IMPRESSION: 1. CT directed core needle biopsy of the liver, using CT image guidance with image documentation as described. 2. Conscious Sedation protocol utilized with independent monitoring. Electronically Signed: Chan Bowers MD at 13:49 EDT ,
[2022-12-01] MEDS: Midazolam 2 MG/2 ML Syringe IV (13:16)
[2022-12-01] MEDS: fentaNYL 100 MCG/2 ML Ampul IV (13:17)
--- NOTE | 2022-12-01 13:23 | PCM.DC ---
Discharge Instructions Diet Discharge Diet: No restrictions Activity Discharge Activity: - (activity as tolerated) Follow Up Care Test Results: Test results from this visit will be discussed in further detail at your follow-up appointment, if applicable. Discharge Plan Admission Admit Date/Time: 11/24/22 19:36 Primary Reason for Your Visit: colitis. Attending Provider: Ramsey Mark Primary Care Provider: Raji Herrmann Chi Consulting Providers: Arnoldo Rose; Domingo Ames; Krishna Wan; Iam De La Garza; Rodrigo Celestin; Dori Denson Instructions Patient Instructions: RAD RN Image-Guided Biopsy, JAD RN Procedural Sedation Additional Instructions / Restrictions: Follow up with Dr. Rose for the results of your liver biopsy. Discharge Orders/Prescriptions Prescriptions: New budesonide 3 mg Capsule,Delayed,Extend.Release 9 mg PO DAILY Qty: 90 0RF Ensure Plus High Protein 0.08 gram-1.5 kcal/mL Liquid 120 ml PO TIDCM Qty: 30 0RF mesalamine 1.2 gram Tablet,Delayed Release (Dr/Ec) 2.4 g PO DAILY Qty: 60 0RF nystatin [Nyamyc] 100,000 unit/gram Powder 1 applic topical BID Qty: 30 0RF Protocol: *Topical Application Instructions APPLICATION INSTRUCTIONS: groin Rx Instructions: to affected area ursodiol 250 mg Tablet 250 mg PO BID Qty: 60 0RF Continued pravastatin 40 MG tablet 40 mg PO QHS citalopram 40 mg tablet 20 mg PO DAILY Patient Comments: confirmed with daughter pt is taking 20 mg. olanzapine 7.5 mg tablet 7.5 mg PO QHS potassium chloride 20 mEq tablet,ER particles/crystals 20 meq PO BID levothyroxine 75 mcg tablet 75 mcg PO DAILY carbidopa-levodopa 25-100 mg tablet 1 tab PO TID omeprazole 40 mg capsule,delayed release(DR/EC) 40 mg PO DAILY acetaminophen 500 mg Tablet 1,000 mg PO Q6H PRN PRN (Reason: Pain Score 1-3) Qty: 0 0RF ferrous sulfate 325 mg (65 mg iron) tablet 325 mg PO DAILY Patient Comments: Take 1 tablet by mouth every morning loperamide 2 mg capsule 2 mg PO PRN (Reason: loose stool) Patient Comments: Take 1 capsule by mouth as directed as needed do not exceed 8 mg/per day ondansetron 4 mg tablet,disintegrating 4 mg PO Q6H PRN (Reason: nausea and vomiting) Patient Comments: Take 1 tablet by mouth as directed as needed every 6 hour PRN oxycodone 5 mg Tablet 5 mg PO Q6H PRN (Reason: Pain Score 4-10) Discontinued methotrexate sodium 2.5 mg tablet 17.5 mg PO WE folic acid 1 mg tablet 2 mg PO DAILY Patient Comments: confirmed with daughter pt not taking because of kidneys hydroxychloroquine 200 mg tablet 400 mg PO DAILY metoclopramide HCl [Reglan] 10 mg tablet 10 mg PO BID PRN PRN (Reason: nausea and vomiting) Qty: 14 0RF Referrals / Follow Up: [facility] [Provider Group] - Within 1 Month Domingo Ames MD [Med Staff - Active Staff] - (for dialysis catheter removal please make appt before discharge) Raji Herrmann Chi, MD [Primary Care Provider] - 12/01/22 3:40 pm Disposition Disposition (needs filled in before D/C Order can be placed): Home Health Service
[2022-12-01] MEDS: Lidocaine 2% (20 ml mdv) 20 ML Vial INFILT (13:25)
--- NOTE | 2022-12-01 13:29 | PCM.DC.SUM ---
Providers Date of Admission: 11/24/22 Primary Care Physician: Dr. Raji Herrmann MD Consultations 11/24/22 21:41 Consult: Gastroenterology Routine Consulting Provider: Arnoldo Rose Reason for Consult: Acute cholecystitis EMERGENT Consult: No Notified: Yes Date Notified: 11/24/22 Time Notified: 19:48 Method of Notification: ED Physician Initiated Consult: General Surgery Routine Consulting Provider: Domingo Ames Reason for Consult: Acute cholecystitis EMERGENT Consult: No Notified: Yes Date Notified: 11/24/22 Time Notified: 19:47 Method of Notification: ED Physician Initiated Consult: Nephrology Routine Consulting Provider: Rodrigo Celestin Reason for Consult: ESRD on dialysis EMERGENT Consult: No Notified: Yes Date Notified: 11/25/22 Time Notified: 09:35 Method of Notification: office 11/24/22 23:55 Consult: 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 Remains with no current signs of acute hemorrhage Platelets trending up Fibrinogen has normalized Patient with elevated direct bilirubin and normal indirect Patient received 5 units of FFP Oncology following-appreciate input Repeat coags, CBC, and fibrinogen in the a.m. (2) Thrombocytopenia: Status: Acute Code(s): D69.6 - Thrombocytopenia, unspecified Plan: Acute thrombocytopenia secondary to DIC, improving Platelet count was normal in early October with her first abnormal lab being on 10/31/2022 ADAMTS 13 pending--> very low suspicion for TTP at this point HIT antibody pending as patient had been receiving heparin with dialysis No need for current platelet transfusion Oncology is following-appreciate input (3) Hypokalemia: Status: Acute Code(s): E87.6 - Hypokalemia Plan: Continue to replace. Replace hypomag (4) Hypomagnesemia: Status: Acute Code(s): E83.42 - Hypomagnesemia Plan: replace (5) Acute renal failure: Status: Acute Code(s): N17.9 - Acute kidney failure, unspecified Qualifiers: Acute renal failure type: with acute tubular necrosis Qualified Code(s): N17.0 - Acute kidney failure with tubular necrosis Plan: 2/2 ATN improving nephrology consulted. Tunneled HD cath to be removed as outpt with general surgery. (6) Colitis: Status: Acute Code(s): K52.9 - Noninfective gastroenteritis and colitis, unspecified Plan: GI on consult UC v ischemic colitis colonoscopy CT shows mild colitis of colon Clinical exam is improving and patient is tolerating a p.o. diet -Advance diet to full's and then regular if she does well -Stop IV fluids Autoimmune work-up is pending Could be ischemic with DIC Continue to monitor Budesonide and mesalamine initiated GI following-appreciate input add Imodium (7) Anemia: Status: Acute Code(s): D64.9 - Anemia, unspecified Plan: Acute on chronic anemia Baseline hemoglobin until October was between 11 and 12 6.9 a.m. of 11/25/2022 and 1 unit packed red blood cells given Hg overall stable. No need for TF at this time. (8) Hyperbilirubinemia: Status: Acute Code(s): E80.6 - Other disorders of bilirubin metabolism Plan: Elevated alk phos/bilirubin Alk phos is remaining elevated but fluctuating -GGT is markedly elevated so this is a biliary source not from her hip and bone issues MRCP is unremarkable Discussed with GI and they asked that we start 250 mg of ursodiol twice daily--> question PBC Autoimmune work-up in progress as well Plans for cholecystectomy have been stopped 11/30: MICHAELA Diaz for liver Bx, which has been ordered. (9) Hypophosphatemia: Status: Acute Code(s): E83.39 - Other disorders of phosphorus metabolism Plan: Improved after replacement Will replace again today. Plan Chronic conditions: Left hip osteoarthritis status post prosthetic joint infection-Nonweightbearing on left lower extremity-May need to get PT/OT involvement-Slipped antibiotic spacer in place-Follows with Dr. Frances Parkinson's disease-Continue carbidopa levodopa History of rheumatoid arthritis-Patient had previously been on methotrexate/oxy chloroquine/folic acid-All medications are currently on hold due to infection Hyperlipidemia-Continue statin Hypothyroidism-Continue levothyroxine Depression-Continue citalopram-Continue olanzapine GERD-Continue PPI DVT prophylaxis -On hold due to acute anemia and thrombocytopenia -SCDs CODE STATUS -Full code 11/30: I discussed with patient's daughter, Vaishnavi, about her mother's case. Explained that I was keeping the patient here to get things probably tuned up before discharge. She expressed concerns about the patient going home with home care because the patient's is currently in the emergency room. Unclear if he will be able to go home or not at this point in time. Told her that we would talk with social work and case management to see if skilled nurse facility could be an option but also encouraged she speak with her mother in regards to her concerns and make sure that her mother is also on board with this, too. Plan is [facility]. Medications at Discharge Home Medications pravastatin 40 mg tablet 40 mg PO QHS CHOLESTEROL 03/22/17 carbidopa 25 mg-levodopa 100 mg tablet 1 tab PO TID parkinsons 09/13/22 citalopram 40 mg tablet 20 mg PO DAILY DEPRESSION 09/13/22 levothyroxine 75 mcg tablet 75 mcg PO DAILY THYROID 09/13/22 olanzapine 7.5 mg tablet 7.5 mg PO QHS MOOD 09/13/22 omeprazole 40 mg capsule,delayed release 40 mg PO DAILY ACID REFLUX 09/13/22 potassium chloride 20 mEq tablet,extended release(part/cryst) 20 meq PO BID SUPPLEMENT 09/13/22 acetaminophen 500 mg tablet 1,000 mg (2 x 500 mg) PO Q6H PRN PRN Pain Score 1-3 #0 tabs 09/28/22 ferrous sulfate 325 mg (65 mg iron) tablet 325 mg PO DAILY supplimentation 11/24/22 loperamide 2 mg capsule 2 mg PO PRN loose stool 11/24/22 ondansetron 4 mg disintegrating tablet 4 mg PO Q6H PRN nausea and vomiting 11/24/22 oxycodone 5 mg tablet 5 mg PO Q6H PRN Pain Score 4-10 11/24/22 budesonide 3 mg capsule,delayed,extended release 9 mg (3 x 3 mg) PO DAILY #90 ea 12/01/22 food supplemt, lactose-reduced 0.08 gram-1.5 kcal/mL oral liquid (Ensure Plus High Protein) 120 ml PO TIDCM #30 BOTTLES 12/01/22 mesalamine 1.2 gram tablet,delayed release 2.4 g (2 x 1.2 gram) PO DAILY #60 tabs 12/01/22 nystatin 100,000 unit/gram topical powder (Nyamyc) 1 applic topical BID #30 grams 12/01/22 ursodiol 250 mg tablet 250 mg PO BID #60 tabs 12/01/22 Hospital Course Operations None Procedures - (liver biopsy) Summary of Care Provided Minutes Spent on Discharge: 35 Weight / BMI Weight Weight: 75.1 kg Body Mass Index (BMI) 29.3 ABG / Lab / Microbiology Data 12/01/22 06:10 12/01/22 06:10 Laboratory: Laboratory Results - last 24 hr 11/29/22 06:45: Diff Path Review Reviewed 11/30/22 05:55: Diff Path Review Reviewed 12/01/22 06:10: WBC 9.9, RBC 2.82 L, Hgb 8.2 L, Hct 26.9 L, MCV 95.4, MCH 29.1, MCHC 30.5 L, RDW Std Deviation 72.7 H, RDW Coeff of Edwar 21.1 H, Plt Count 148 L, MPV 12.7 H, Immature Gran % (Auto) 2.400 H, Neut % (Auto) 59.3, Lymph % (Auto) 19.3, [place] % (Auto) 17.9 H, Eos % (Auto) 0.9, Baso % (Auto) 0.2, Absolute Neuts (auto) 5.9, Absolute Lymphs (auto) 1.90, Nucleated RBC % 0.6, Platelet Estimate SLT DEC, Hypochromasia 1+, Anisocytosis 2+, Sodium 141, Potassium 3.1 L, Chloride 113 H, Carbon Dioxide 21.0, Anion Gap 7, BUN 12, Creatinine 0.67, Estim Creat Clear Calc 40.83, Est GFR (MDRD) Af Amer 111, Est GFR (MDRD) Non-Af 92, BUN/Creatinine Ratio 18.0, Glucose 79, Calcium 7.0 L, Phosphorus 1.9 L, Magnesium 1.4 L, Total Bilirubin 2.00 H, AST 94 H, ALT 42, Alkaline Phosphatase 643 H, Total Protein 5.1 L, Albumin 1.6 L, Globulin 3.5, Albumin/Globulin Ratio 0.5 L Microbiology: Microbiology 11/24/22 14:27 Blood Culture (Wb) - Anticubital Right Bacteria Detection (PCR) - Final Staphylococcus epidermidis mecA Resistance Marker 11/24/22 14:27 Blood Culture (Wb) - Anticubital Right Blood Culture - Final Staphylococcus epidermidis 11/24/22 14:00 Blood Culture (Wb) - Anticubital Right Blood Culture - Final No growth in 5 days. 11/26/22 05:35 Stool Stool Occult Blood (BAILEY) - Final Occult Blood Positive 11/24/22 23:00 Stool Stool Lactoferrin - Final 11/24/22 23:00 Stool Enteric Bacteriology - Final 11/24/22 23:00 Stool C. difficile DNA Amplification - Final D/C Instructions Discharge Diet: No restrictions Meaningful Use Info Meaningful Use Diagnoses (Choose all that apply): None applicable Discharge Plan Admission Admit Date/Time: 11/24/22 19:36 Primary Reason for Your Visit: colitis. Attending Provider: Ramsey Mark Primary Care Provider: Raji Herrmann Chi Consulting Providers: Arnoldo Rose; Domingo Ames; Krishna Wan; Iam De La Garza; Rodrigo Celestin; Dori Denson Instructions Patient Instructions: RAD RN Image-Guided Biopsy, JAD RN Procedural Sedation Additional Instructions / Restrictions: Follow up with Dr. Rose for the results of your liver biopsy. Discharge Orders/Prescriptions Prescriptions: New budesonide 3 mg Capsule,Delayed,Extend.Release 9 mg PO DAILY Qty: 90 0RF Ensure Plus High Protein 0.08 gram-1.5 kcal/mL Liquid 120 ml PO TIDCM Qty: 30 0RF mesalamine 1.2 gram Tablet,Delayed Release (Dr/Ec) 2.4 g PO DAILY Qty: 60 0RF nystatin [Nyamyc] 100,000 unit/gram Powder 1 applic topical BID Qty: 30 0RF Protocol: *Topical Application Instructions APPLICATION INSTRUCTIONS: groin Rx Instructions: to affected area ursodiol 250 mg Tablet 250 mg PO BID Qty: 60 0RF Continued pravastatin 40 MG tablet 40 mg PO QHS citalopram 40 mg tablet 20 mg PO DAILY Patient Comments: confirmed with daughter pt is taking 20 mg. olanzapine 7.5 mg tablet 7.5 mg PO QHS potassium chloride 20 mEq tablet,ER particles/crystals 20 meq PO BID levothyroxine 75 mcg tablet 75 mcg PO DAILY carbidopa-levodopa 25-100 mg tablet 1 tab PO TID omeprazole 40 mg capsule,delayed release(DR/EC) 40 mg PO DAILY acetaminophen 500 mg Tablet 1,000 mg PO Q6H PRN PRN (Reason: Pain Score 1-3) Qty: 0 0RF ferrous sulfate 325 mg (65 mg iron) tablet 325 mg PO DAILY Patient Comments: Take 1 tablet by mouth every morning loperamide 2 mg capsule 2 mg PO PRN (Reason: loose stool) Patient Comments: Take 1 capsule by mouth as directed as needed do not exceed 8 mg/per day ondansetron 4 mg tablet,disintegrating 4 mg PO Q6H PRN (Reason: nausea and vomiting) Patient Comments: Take 1 tablet by mouth as directed as needed every 6 hour PRN oxycodone 5 mg Tablet 5 mg PO Q6H PRN (Reason: Pain Score 4-10) Discontinued methotrexate sodium 2.5 mg tablet 17.5 mg PO WE folic acid 1 mg tablet 2 mg PO DAILY Patient Comments: confirmed with daughter pt not taking because of kidneys hydroxychloroquine 200 mg tablet 400 mg PO DAILY metoclopramide HCl [Reglan] 10 mg tablet 10 mg PO BID PRN PRN (Reason: nausea and vomiting) Qty: 14 0RF Referrals / Follow Up: [facility] [Provider Group] - Within 1 Month Domingo Ames MD [Med Staff - Active Staff] - (for dialysis catheter removal please make appt before discharge) Raji Herrmann Chi, MD [Primary Care Provider] - 12/01/22 3:40 pm Disposition Disposition (needs filled in before D/C Order can be placed): Home Health Service Charges/Coding Visit Charges Inpatient E&M: 41337 Disch Hosp >30min
--- NOTE | 2022-12-01 13:30 | LIVB_PTH ---
PATIENT: DANDRE PERAZA LOC: [facility] U#:[id number] AGE/SX: 72/F ROOM: [facility] RE11/24/[address]: Dr. Ramsey Mark DO : 1950 BED: 1 DIS: 12/01/2022 SPEC #: [id number] RECD: 12/01/22 13:39 STATUS: KARLY BAH #: [id number] RULA: 12/01/22 13:[address]: Ramsey Mark DEPT: SURGICAL PATHOLOGY RECD BY: Quynh Torres ENTERED: 12/01/22 14:03 SP TYPE: LIVER BX OTHR DR: MD Dr. Iam Moreno MD Dr. Joseph Agyepong, MD Dr. Jayaprakas Dasari, MD Dr. Kathryn Lee, DO Dr. Rahsaan Friend, DO Dr. Tai Chi Kwok, MD Tissues: Liver, NOS Procedures: PAS with Diastase (control) Trichrome (control) Special Stain Group II PAS Stain (control) Surgery Specimen Level V Retic (control) Iron Stain (control) HEADER OPERATION: CT guided liver biopsy PRE-OP DIAGNOSIS: Jaundice TISSUE SUBMITTED: Left lobe liver 8 ga core x3 MICROSCOPIC DIAGNOSIS Left lobe liver, core biopsy: Liver parenchymal tissue with extensive macrovesicular steatosis and chronic hepatitis grade II and stage III. See microscopic description and comment. COMMENT The specimen shows cholangitis pattern of injury. Correlation with clinical, radiologic, laboratory findings and appropriate follow up are necessary. MICROSCOPIC DESCRIPTION Slides are reviewed. The specimen shows liver parenchymal tissue with liver parenchymal tissue with preserved lobular architecture. The hepatocytes show extensive macromesicular steatosis, marked bile stasis, and reactive changes. Lobular chronic inflammation is noted. Focal hepatocyte necrosis is also noted. Portal areas shows acute and chronic inflammatory cells infiltrates. Focal interface inflammation is also noted. Iron stain shows 4+ iron deposition in the Kupffer cells and mild iron deposition in the hepatocytes. Trichrome stain shows increased portal, periportal and focal bridging fibrosis. Obvious cirrhosis is not seen. PAS stains with and without diastase do not show any abnormal accumulation of protein. All stains performed with appropriate matched controls. GROSS DESCRIPTION Received is one container labeled with the patient name and designated left lobe liver. The specimen consists of multiple elongated fragments of light huizar soft tissue that in aggregate measure 1.2 x .4 x .1 cm. The specimen is totally submitted in one cassette. / SJ:yariel 12/02/22 TC:3 CPT:08367, 44307 x5
[2022-12-01] MEDS: Na Biphos/Potassium Phosphate PACKET 1 PACKET PO (14:31)
--- NOTE | 2022-12-01 14:44 | CASEMGMT ---
Discharge Planning Discharge insturctions/summary sent to [facility] via [facility]. Domenica Santos, Discharge Planning Asst
[2022-12-01] MEDS: Potassium Chloride Oral Tablet 20 MEQ 40 MEQ PO (14:53)
== END 2022-12-01 15:35 | disposition home health service (06) | DRG 813 ==
LOC: ED 19:36 → MS3 20:11
PROVIDERS: Internal Medicine; Internal Medicine Gastroenterology; Nurse Practitioner Adult Health; Physician Assistant; Specialist; Admitting Provider Hospitalist; Emergency Provider Emergency Medicine; PCP Family Medicine Geriatric Medicine
DX: D65 Disseminated intravascular coagulation [defibrination syndrome] (principal); N17.0 Acute kidney failure with tubular necrosis; K55.9 Vascular disorder of intestine, unspecified; K51.90 Ulcerative colitis, unspecified, without complications; N39.0 Urinary tract infection, site not specified; L89.102 Pressure ulcer of unspecified part of back, stage 2; D68.9 Coagulation defect, unspecified; G20 Parkinson's disease; F20.9 Schizophrenia, unspecified; L89.322 Pressure ulcer of left buttock, stage 2; L89.312 Pressure ulcer of right buttock, stage 2; D75.829 Heparin-induced thrombocytopenia, unspecified; D64.9 Anemia, unspecified; E03.9 Hypothyroidism, unspecified; K76.0 Fatty (change of) liver, not elsewhere classified; F32.9 Major depressive disorder, single episode, unspecified; E87.6 Hypokalemia; E83.42 Hypomagnesemia; K21.9 Gastro-esophageal reflux disease without esophagitis; E78.5 Hyperlipidemia, unspecified; K52.9 Noninfective gastroenteritis and colitis, unspecified; M16.12 Unilateral primary osteoarthritis, left hip
CPT/HCPCS: 36415; 71046; 74176; 74181; 76705; 77012; 80048; 80053; 81001; 82085; 82247; 82248; 82274; 82550; 82784; 82977; 83010; 83516; 83615; 83630; 83735; 84100; 84132; 84145; 84165; 85014; 85018; 85025; 85027; 85045; 85379; 85384; 85610; 85652; 85730; 86140; 86225; 86235; 86256; 86334; 86644; 86850; 86900; 86901; 86920; 86922; 87040; 87149; 87177; 87209; 87493; 87506; 88307; 88313; 93005; 94668; 94762; 96360; 96361; 97110; 97162; 97166; 97802; 99156; 99221; 99283; 99284; J7030; J7040; J7050; P9016; P9017; A4216; G0378; J2405

== ENCOUNTER 2022-12-01 17:35 | Observation (INO) | payer MEDICARE, SELFPAY ==
[2022-12-01 17:38] VITALS: BP 76/51; PULSE 103; RESP 18; TEMP 36.4; O2SAT 97
--- NOTE | 2022-12-01 18:15 | EKG12_ITS ---
Test Reason : GENERAL Blood Pressure : / mmHG Vent. Rate : 084 BPM Atrial Rate : 084 BPM P-R Int : 116 ms QRS Dur : 078 ms QT Int : 364 ms P-R-T Axes : -19 -07 018 degrees QTc Int : 430 ms Sinus rhythm with Premature atrial complexes Minimal voltage criteria for LVH, may be normal variant ( R in aVL ) Inferior infarct , age undetermined Abnormal ECG Confirmed by ZAC SHAH, MARIAN ([id number]), news editor MURTAZA RODRIGUEZ ([id number]) on 12/02/2022 12:58:55 PM Referred By: Confirmed By:MARIAN FRANK MD
--- NOTE | 2022-12-01 18:19 | EX.ED.DYSGE1 ---
HPI <LUZ Garcia - Last Filed: 12/01/22 20:32> History of Present Illness Chief Complaint: Weakness Narrative Narrative: 72-year-old female was sent in by Dr. Herrmann for admission to the TCU. She has had multiple ongoing health issues since September 2022 and has declined and feels weak and cannot ambulate. Over the last few months she had a renal injury (she attributes this either to IV dye or an antibiotic she received) and required temporary dialysis. She also developed DIC and cholecystitis which was treated medically. She had hepatitis and had a liver biopsy done today. She was discharged from [facility] today and went to Dr. Herrmann's office to have him sign off on home health orders. However patient cannot ambulate and he did not feel home health will be able to adequately meet her ADLs. Her is elderly and cannot help her. She states she is eating and drinking more and denies nausea or vomiting. No chest pain, shortness of breath, or upper respiratory symptoms. She has some chronic abdominal soreness from the ongoing issues but is having normal bladder and bowel movements. FOR[facility]LY [facility], LATER [facility] <LUZ Garcia - Last Filed: 12/01/22 20:32> [facility], LAT[facility] Medical History Anxiety and depression Arthritis Cataracts, bilateral CHI (closed head injury) Chronic anemia GERD (gastroesophageal reflux disease) Hemorrhoids Hypothyroidism IBS (irritable bowel syndrome) Obesity (BMI 30.0-34.9) Osteoarthritis Parkinson disease Rheumatoid arthritis Schizophrenia Home Medications pravastatin 40 mg tablet 40 mg PO QHS CHOLESTEROL 03/22/17 [History Last Taken 09/12/22] carbidopa 25 mg-levodopa 100 mg tablet 1 tab PO TID parkinsons 09/13/22 [History Last Taken 09/12/22] citalopram 40 mg tablet 20 mg PO DAILY DEPRESSION 09/13/22 [History Last Taken 09/12/22] levothyroxine 75 mcg tablet 75 mcg PO DAILY THYROID 09/13/22 [History Last Taken 09/12/22] olanzapine 7.5 mg tablet 7.5 mg PO QHS MOOD 09/13/22 [History Last Taken 09/12/22] omeprazole 40 mg capsule,delayed release 40 mg PO DAILY ACID REFLUX 09/13/22 [History Last Taken 09/12/22] potassium chloride 20 mEq tablet,extended release(part/cryst) 20 meq PO BID SUPPLEMENT 09/13/22 [History Last Taken 09/12/22] acetaminophen 500 mg tablet 1,000 mg (2 x 500 mg) PO Q6H PRN PRN Pain Score 1-3 #0 tabs 09/28/22 [Rx Last Taken Unknown] ferrous sulfate 325 mg (65 mg iron) tablet 325 mg PO DAILY supplimentation 11/24/22 [History Last Taken Unknown] loperamide 2 mg capsule 2 mg PO PRN loose stool 11/24/22 [History Last Taken Unknown] ondansetron 4 mg disintegrating tablet 4 mg PO Q6H PRN nausea and vomiting 11/24/22 [History Last Taken Unknown] oxycodone 5 mg tablet 5 mg PO Q6H PRN Pain Score 4-10 11/24/22 [History Last Taken Unknown] budesonide 3 mg capsule,delayed,extended release 9 mg (3 x 3 mg) PO DAILY #90 ea 12/01/22 [Rx Last Taken Unknown] food supplemt, lactose-reduced 0.08 gram-1.5 kcal/mL oral liquid (Ensure Plus High Protein) 120 ml PO TIDCM #30 BOTTLES 12/01/22 [Rx Last Taken Unknown] mesalamine 1.2 gram tablet,delayed release 2.4 g (2 x 1.2 gram) PO DAILY #60 tabs 12/01/22 [Rx Last Taken Unknown] nystatin 100,000 unit/gram topical powder (Nyamyc) 1 applic topical BID #30 grams 12/01/22 [Rx Last Taken Unknown] ursodiol 250 mg tablet 250 mg PO BID #60 tabs 12/01/22 [Rx Last Taken Unknown] Allergy/AdvReac Type Severity Reaction Status Date / Time linaclotide [From Linzess] Allergy Mild chest Verified 12/01/22 17:38 tightness histamine phosphate Allergy Unknown Verified 12/01/22 17:38 [From Histatrol] Family History Mother Heart disease Father Heart disease Brother Heart disease Surgical History H/O colonoscopy with polypectomy History of hip surgery History of knee replacement History of tonsillectomy and adenoidectomy History of tubal ligation Social History household members: spouse Smoking Status: Never smoker alcohol intake: never substance use type: does not use what type of physical activity do you participate in: walking frequency: 1-2 times per week ROS <LUZ Garcia - Last Filed: 12/01/22 20:32> ROS ED ROS Narrative Constitutional: Positive for malaise. Negative for fever, chills. CVS: Negative for palpitations, chest pain, syncope. Respiratory: Negative for shortness of breath, cough. GI: Negative for abdominal pain, nausea, vomiting, diarrhea, constipation, melena, hematochezia. : Negative for dysuria, hematuria or frequency. Neuro: Negative for headache. EXAM <LUZ Garcia - Last Filed: 12/01/22 20:32> Physical Exam Narrative Exam Narrative: CONST: Patient sitting in no acute distress. EYES: Normal inspection. ENT: Normal inspection, moist mucous membranes. NECK: Normal inspection. RESP: No respiratory distress, CTAB. CVS: Regular rate and rhythm, no murmur, no gallop. ABD: Soft and nontender, no guarding or rebound, nondistended. SKIN: Color normal, no rash, warm, dry, intact. EXTREMITIES: Normal appearance, no pedal edema. NEURO: Oriented x4. PSYCH: Normal affect. Const Vital Signs: 12/01/22 17:38 12/01/22 20:29 Temperature 97.6 F L 98.0 F Temperature Source Temporal Temporal Pulse Rate 103 H 77 Respiratory Rate 18 16 Blood Pressure 76/51 L 132/75 H Blood Pressure Mean 59 94 Pulse Ox 97 95 Oxygen Delivery Method Room Air <Dr. Ramsey Gil DO - Last Filed: 12/01/22 22:12> Physical Exam Const Vital Signs: 12/01/22 17:38 12/01/22 20:29 Temperature 97.6 F L 98.0 F Temperature Source Temporal Temporal Pulse Rate 103 H 77 Respiratory Rate 18 16 Blood Pressure 76/51 L 132/75 H Blood Pressure Mean 59 94 Pulse Ox 97 95 Oxygen Delivery Method Room Air MDM <LUZ Garcia - Last Filed: 07/13/23 20:32> MDM MDM Narrative Medical decision making narrative: History gathered from: Patient, , daughter Patient was sent in for admission to the TCU as she has had multiple ongoing medical problems and is too weak to ambulate. She appears chronically ill but nontoxic. BP is 76/51, heart rate 103, otherwise normal vital signs. She is mentating normally answering questions appropriately. No focal neurological deficits. She has mild abdominal tenderness which is chronic and there is no peritoneal signs. Recent CT showed mild colitis in the colon and they were advancing her diet and she was treated with budesonide and mesalamine. Labs show white count of 21.7 which is new from this morning but likely from the budesonide. BMP is unremarkable. UA negative. Her BP improved to 132/75 after IV fluids. I spoke with Dr. Herrmann who states he would not be the primary admitting physician and recommended I reach out to social work. Social work is evaluating and will help determine disposition as currently there are no beds available in TCU. Consults: Dr. Herrmann, geriatric medicine Lab Data Attestation: I reviewed the patient's lab results. Labs: Laboratory Results - last 24 hr 12/01/22 12/01/22 19:10 19:35 WBC 21.7 H RBC 3.16 L Hgb 9.3 L Hct 30.4 L MCV 96.2 MCH 29.4 MCHC 30.6 L RDW Std Deviation 72.2 H RDW Coeff of Edwar 21.2 H Plt Count 215 MPV 12.3 H Immature Gran % (Auto) 2.500 H Neut % (Auto) 66.8 Lymph % (Auto) 9.3 L Martin % (Auto) 21.1 H Eos % (Auto) 0.2 Baso % (Auto) 0.1 Absolute Neuts (auto) 14.5 H Absolute Lymphs (auto) 2.01 Nucleated RBC % 0.5 Differential Comment SEE COMMENT Diff Path Review May foll Platelet Estimate ADEQUATE RBC Morphology N CHROM Polychromasia RARE Hypochromasia 1+ Anisocytosis 1+ Macrocytosis 1+ Sodium 140 Potassium 3.8 Chloride 110 H Carbon Dioxide 20.0 L Anion Gap 10 BUN 11 Creatinine 0.88 Est GFR (MDRD) Af Amer 81 Est GFR (MDRD) Non-Af 67 BUN/Creatinine Ratio 12.5 Glucose 85 Calcium 7.5 L Urine Color Yellow Urine Clarity Clear Urine pH 5.0 Ur Specific [place] 1.025 Urine Protein 15 H Urine Glucose (UA) Normal Urine Ketones 5 H Urine Occult Blood 10 H Urine Nitrite Negative Urine Bilirubin 1 H Urine Urobilinogen Normal Ur Leukocyte Esterase 25 H Urine RBC 0-5 SEEN Urine WBC 5-10 SEEN Ur Squamous Epith Cells 0 SEEN Urine Bacteria RARE Hyaline Casts 0-5 SEEN Urine Mucus 0 SEEN EKG Initial EKG: Attestation: I personally reviewed and interpreted this EKG as follows: Comments: Sinus rhythm with PACs at 84 bpm, no STEMI Prior EKG tracings: available for review Prior: Unchanged <Dr. Ramsey Gil, DO - Last Filed: 12/01/22 22:12> [facility] Lab Data Labs: Laboratory Results - last 24 hr 12/01/22 12/01/22 19:10 19:35 WBC 21.7 H RBC 3.16 L Hgb 9.3 L Hct 30.4 L MCV 96.2 MCH 29.4 MCHC 30.6 L RDW Std Deviation 72.2 H RDW Coeff of Edwar 21.2 H Plt Count 215 MPV 12.3 H Immature Gran % (Auto) 2.500 H Neut % (Auto) 66.8 Lymph % (Auto) 9.3 L Martin % (Auto) 21.1 H Eos % (Auto) 0.2 Baso % (Auto) 0.1 Absolute Neuts (auto) 14.5 H Absolute Lymphs (auto) 2.01 Nucleated RBC % 0.5 Differential Comment SEE COMMENT Diff Path Review May foll Platelet Estimate ADEQUATE RBC Morphology N CHROM Polychromasia RARE Hypochromasia 1+ Anisocytosis 1+ Macrocytosis 1+ Sodium 140 Potassium 3.8 Chloride 110 H Carbon Dioxide 20.0 L Anion Gap 10 BUN 11 Creatinine 0.88 Est GFR (MDRD) Af Amer 81 Est GFR (MDRD) Non-Af 67 BUN/Creatinine Ratio 12.5 Glucose 85 Calcium 7.5 L Urine Color Yellow Urine Clarity Clear Urine pH 5.0 Ur Specific [place] 1.025 Urine Protein 15 H Urine Glucose (UA) Normal Urine Ketones 5 H Urine Occult Blood 10 H Urine Nitrite Negative Urine Bilirubin 1 H Urine Urobilinogen Normal Ur Leukocyte Esterase 25 H Urine RBC 0-5 SEEN Urine WBC 5-10 SEEN Ur Squamous Epith Cells 0 SEEN Urine Bacteria RARE Hyaline Casts 0-5 SEEN Urine Mucus 0 SEEN Treatment and Re-Evaluation :: I have personally performed a face to face assessment of the patient and have reviewed the EDDIE Note. I performed a substantive portion of the visit including all aspects of the following. My mayo findings include: History: Patient presents with generalized weakness and debility that became worse today. Patient was discharged from the hospital earlier today. Patient followed up with Dr. Herrmann in his office. Family states that Dr. Herrmann wants the patient admitted to TCU for further rehab and therapy. Patient is agreeable with this. Patient denies any new complaints. Patient denies any fevers or chills. Exam: Vital signs showed a mild hypotension of 76/51. The remaining vital signs are stable. Patient is afebrile. Patient is in no acute distress. Oral mucosa is pink and moist. Neck is supple. Trachea is midline. There is no JVD. Heart was regular and tachycardic. Lungs are clear and equal bilaterally. Abdomen is soft. Bowel sounds are normal. There is no tenderness. There is no guarding noted. Cranial nerves II through XII are grossly intact. There are no focal motor or sensory deficits. There are some generalized weakness noted. Medical Decision Making: Differential diagnosis includes anemia, debility, cardiac dysrhythmia, cardiac ischemia electrolyte abnormality, urinary tract infection, and dehydration. CBC will be obtained to assess for anemia and leukocytosis. Basic metabolic profile will be obtained to assess for electrolyte abnormality and renal function. Urinalysis will be obtained to assess for urinary tract infection. EKG will be obtained to assess for cardiac dysrhythmia and cardiac ischemia. Patient is given IV fluids. CBC was reviewed. There is a leukocytosis of 21.7. Patient was given a dose of budesonide earlier in the hospital today. Patient metabolic profile was reviewed and was essentially within normal limits. Urinalysis was reviewed. There is no evidence of urinary tract infection or hematuria. Case was discussed with Dr. Herrmann. He recommended consulting social workers to see if the patient can be directly admitted to TCU or if the patient is to be readmitted to the hospital for insurance coverage. barn worker evaluated the patient and stated that the patient would have to be admitted to the hospital. Case will be discussed with the hospitalist for admission. Discharge Plan Triage Chief Complaint: Weakness ED Midlevel Provider: Ariadne Maritnez ED Provider: Ramsey Gil Dx/Rx/DC Orders Clinical Impression: Generalized weakness, Failure to thrive in adult, Debility Prescriptions: No Action pravastatin 40 MG tablet 40 mg PO QHS citalopram 40 mg tablet 20 mg PO DAILY Patient Comments: confirmed with daughter pt is taking 20 mg. olanzapine 7.5 mg tablet 7.5 mg PO QHS potassium chloride 20 mEq tablet,ER particles/crystals 20 meq PO BID levothyroxine 75 mcg tablet 75 mcg PO DAILY carbidopa-levodopa 25-100 mg tablet 1 tab PO TID omeprazole 40 mg capsule,delayed release(DR/EC) 40 mg PO DAILY acetaminophen 500 mg Tablet 1,000 mg PO Q6H PRN PRN (Reason: Pain Score 1-3) Qty: 0 0RF ferrous sulfate 325 mg (65 mg iron) tablet 325 mg PO DAILY Patient Comments: Take 1 tablet by mouth every morning loperamide 2 mg capsule 2 mg PO PRN (Reason: loose stool) Patient Comments: Take 1 capsule by mouth as directed as needed do not exceed 8 mg/per day ondansetron 4 mg tablet,disintegrating 4 mg PO Q6H PRN (Reason: nausea and vomiting) Patient Comments: Take 1 tablet by mouth as directed as needed every 6 hour PRN oxycodone 5 mg Tablet 5 mg PO Q6H PRN (Reason: Pain Score 4-10) budesonide 3 mg Capsule,Delayed,Extend.Release 9 mg PO DAILY Qty: 90 0RF Ensure Plus High Protein 0.08 gram-1.5 kcal/mL Liquid 120 ml PO TIDCM Qty: 30 0RF mesalamine 1.2 gram Tablet,Delayed Release (Dr/Ec) 2.4 g PO DAILY Qty: 60 0RF nystatin [Nyamyc] 100,000 unit/gram Powder 1 applic topical BID Qty: 30 0RF Protocol: *Topical Application Instructions APPLICATION INSTRUCTIONS: groin Rx Instructions: to affected area ursodiol 250 mg Tablet 250 mg PO BID Qty: 60 0RF Primary Care Provider: Raji Herrmann Chi Referrals: Raji Herrmann Chi, MD [Primary Care Provider] - Disposition Disposition: Acute Care [facility]
[2022-12-01 19:20] LABS: Absolute Lymphocyte Count 2.01 X10^3/uL (0.83-4.51); Absolute Neutrophil Count 14.5 X10^3/uL (2.0-7.7); Basophil# 0.03 X10^3/uL; Basophil% 0.1 % (0-1); Eosinophil# 0.04 X10^3/uL; Eosinophils% 0.2 % (0-5); Hematocrit 30.4 % (37-47); Hemoglobin 9.3 g/dL (12.0-15.0); Lymphocyte # 2.01 X10^3/ul (0.83-4.51); Lymphocyte % 9.3 % (19-41); Mean Corp Hgb Conc 30.6 g/dL (32-36); Mean Corpuscular Hgb 29.4 pg (27.0-32.0); Mean Corpuscular Volume 96.2 fL (81-99); Mean Platelet Vol. 12.3 fl (6.2-12.0); Monocyte# 4.57 X10^3/uL; Monocyte% 21.1 % (0-10); NRBC Flagged by Analyzer 0.5 % (0-5); Neutrophil # 14.49 X10^3/uL (2.7-7.7); Neutrophil % 66.8 % (47-70); POSITIVE DIFFERENTIAL YES; POSITIVE MORPHOLOGY YES; Platelet Count 215 K/mm3 (150-450); RBC Distribution Width CV 21.2 % (11.6-14.6); RBC Distribution Width SD 72.2 fl (35.1-43.9); Red Blood Count 3.16 M/mm3 (4.2-5.4); White Blood Count 21.7 K/mm3 (4.4-11.0)
[2022-12-01 19:24] LABS: Differential Indicated SCAN CRITERIA MET
[2022-12-01 19:35] VITALS: BMI 30.4
[2022-12-01 19:38] LABS: Mucous, Urine 0 SEEN /hpf (<or=2+); Squamous Epithelial Cells - UA 0 SEEN /hpf (5-10)
[2022-12-01 19:39] LABS: Color, Urine Yellow (Yellow); Glucose, Dipstick Normal (Normal); Ketone-Dipstick 5 mg/dl (Negative); Leukocyte Esterase-Dipstick 25 /ul (Negative); Nitrite-Dipstick Negative (Negative); Occult Blood-Urine 10 /ul (Negative); Protein-Dipstick 15 mg/dl (Negative); Specific Gravity, Urine 1.025 (1.002-1.030); Urine Clarity Clear (Clear); Urine Urobilinogen Normal (Normal)
[2022-12-01] MEDS: 0.9% Normal Saline 1,000 ML 999 ML IV (19:39)
[2022-12-01 19:41] LABS: Anion Gap 10 (5-15); Anisocytosis 1+; BUN 11 mg/dL (7-18); BUN/Creat Ratio 12.5 RATIO (10-20); Calcium,Total 7.5 mg/dL (8.5-10.1); Chloride 110 mmol/L (98-107); Creatinine, Serum 0.88 mg/dL (0.55-1.02); EST Glomerular Filtration Rate 67 mL/min (>60); Est Glom Filt Rate - Afr Amer 81 mL/min (>60); Glucose 85 mg/dL (74-106); Hypochromasia 1+; Platelet Estimate ADEQUATE (ADEQ); Polychromasia RARE; Potassium 3.8 mmol/L (3.5-5.1); Red Cell Morphology N CHROM NORMAL (NORM C&C); Sodium Level 140 mmol/L (136-145)
[2022-12-01 19:42] LABS: Macrocytosis 1+
[2022-12-01 19:49] LABS: Bacteria RARE /hpf (None Seen); Red Blood Cells-Urine 0-5 SEEN /hpf (0-5); Urine Bilirubin Dipstick 1 mg/dL (Negative); White Blood Cells 5-10 SEEN /hpf (0-5)
[2022-12-01 19:50] LABS: Hyaline Cast 0-5 SEEN /lpf (0-5)
[2022-12-01 20:29] VITALS: BP 132/75; PULSE 77; RESP 16; TEMP 36.7; O2SAT 95
--- NOTE | 2022-12-01 22:08 | HP.PCM.HOS_ITS ---
HPI - General General Date of Admission: 12/01/22 Date of Service: 12/01/22 Chief Complaint: Adult FTT, needs SNF HPI Narrative The patient is a 69 y/o F w/ PMHx: IBS, Hypothyroidism, OA, Obesity, GERD, Anxiety and Depression/Schizophrenia, recent complicated admission discharged on 12/01/22 with DIC in the setting of acute cholecystitis with acute thrombocytopenia with pending HIT antibody/ADAMTS 13 pending at discharge with no plt transfusion need evaluated per Oncology as well as CARMENZA secondary to ATN requiring temporary HD access placement with ESRD followed by Dr. Celestin in addition to Colitis UC versus ischemic colitis with CT showing mild colitis with pending autoimmune work-up but possibly secondary to DIC placed on budesonide and mesalamine w/ GI evaluation also, administration 1 u PRBC for 11/25/22 Hgb 6.9 stable since, elevated Alk Phos/Bilirubin with unremarkable MRCP with elevated GGT started on ursodiol BID with future plan for cholecystectomy with pending future liver Bx who now re-presents to the [facility] ED on 12/01/22 secondary to evaluation per her PCP who strongly recommended TCU admission instead and referred patient to the ED for transition to TCU. Patient upon current presentation denies any acute pain but did have some mild nausea earlier which is abated now with no emesis related. Work-up in the ED included T98, heart 77, BP 132/75, respiratory rate 16, 95% on room air, CBC with WBC 21.7, hemoglobin 9 .3, MCV 96.2, platelet 215 with left shift, BMP with chloride 110, carbon oxide 20 otherwise not marked appearing, urinalysis not marked appearing however specific obvious elevated 1.025 thus suspect mild dehydration. In the ED patient ministered 1 L normal saline. [facility] Medical History Anxiety and depression Arthritis Cataracts, bilateral CHI (closed head injury) Chronic anemia GERD (gastroesophageal reflux disease) Hemorrhoids Hypothyroidism IBS (irritable bowel syndrome) Obesity (BMI 30.0-34.9) Osteoarthritis Parkinson disease Rheumatoid arthritis Schizophrenia Home Medications pravastatin 40 mg tablet 40 mg PO QHS CHOLESTEROL 03/22/17 [History Last Taken 09/12/22] carbidopa 25 mg-levodopa 100 mg tablet 1 tab PO TID parkinsons 09/13/22 [History Last Taken 09/12/22] citalopram 40 mg tablet 20 mg PO DAILY DEPRESSION 09/13/22 [History Last Taken 09/12/22] levothyroxine 75 mcg tablet 75 mcg PO DAILY THYROID 09/13/22 [History Last Taken 09/12/22] olanzapine 7.5 mg tablet 7.5 mg PO QHS MOOD 09/13/22 [History Last Taken 3] omeprazole 40 mg capsule,delayed release 40 mg PO DAILY ACID REFLUX 09/13/22 [History Last Taken 09/12/22] potassium chloride 20 mEq tablet,extended release(part/cryst) 20 meq PO BID SUPPLEMENT 09/13/22 [History Last Taken 09/12/22] acetaminophen 500 mg tablet 1,000 mg (2 x 500 mg) PO Q6H PRN PRN Pain Score 1-3 #0 tabs 09/28/22 [Rx Last Taken Unknown] ferrous sulfate 325 mg (65 mg iron) tablet 325 mg PO DAILY supplimentation 11/24/22 [History Last Taken Unknown] loperamide 2 mg capsule 2 mg PO PRN loose stool 11/24/22 [History Last Taken Unknown] ondansetron 4 mg disintegrating tablet 4 mg PO Q6H PRN nausea and vomiting 11/24/22 [History Last Taken Unknown] oxycodone 5 mg tablet 5 mg PO Q6H PRN Pain Score 4-10 11/24/22 [History Last Taken Unknown] budesonide 3 mg capsule,delayed,extended release 9 mg (3 x 3 mg) PO DAILY #90 ea 12/01/22 [Rx Last Taken Unknown] food supplemt, lactose-reduced 0.08 gram-1.5 kcal/mL oral liquid (Ensure Plus High Protein) 120 ml PO TIDCM #30 BOTTLES 12/01/22 [Rx Last Taken Unknown] mesalamine 1.2 gram tablet,delayed release 2.4 g (2 x 1.2 gram) PO DAILY #60 tabs 12/01/22 [Rx Last Taken Unknown] nystatin 100,000 unit/gram topical powder (Nyamyc) 1 applic topical BID #30 grams 12/01/22 [Rx Last Taken Unknown] ursodiol 250 mg tablet 250 mg PO BID #60 tabs 12/01/22 [Rx Last Taken Unknown] Allergy/AdvReac Type Severity Reaction Status Date / Time linaclotide [From Linzess] Allergy Mild chest Verified 12/01/22 17:38 tightness histamine phosphate Allergy Unknown Verified 12/01/22 17:38 [From Histatrol] Family History Mother Heart disease Father Heart disease Brother Heart disease Surgical History H/O colonoscopy with polypectomy History of hip surgery History of knee replacement History of tonsillectomy and adenoidectomy History of tubal ligation Social History household members: spouse Smoking Status: Never smoker alcohol intake: never substance use type: does not use what type of physical activity do you participate in: walking frequency: 1-2 times per week ROS ROS Narrative Admission Review of Systems: CONSTITUTIONAL: No weight loss, fever, chills, + weakness or fatigue. HEENT: Eyes: No visual loss, blurred vision, double vision or yellow sclerae. Ears, Nose, Throat: No hearing loss, sneezing, congestion, runny nose or sore throat. SKIN: No rash or itching, lesions, wounds. CARDIOVASCULAR: No chest pain, chest pressure or chest discomfort, palpitations, edema, orthopnea, syncopal events. RESPIRATORY: No shortness of breath, cough or sputum, wheezing, hemoptysis. GASTROINTESTINAL: + anorexia, nausea, No recent vomiting, diarrhea, abdominal pain, melena, BRBPR. GENITOURINARY: No dysuria, frequency, urgency or retention. NEUROLOGICAL: No headache, dizziness, syncope, paralysis, ataxia, numbness or tingling in the extremities, focal weakness, change in bowel or bladder control, seizure. MUSCULOSKELETAL: + muscle, back pain, joint pain or stiffness. HEMATOLOGIC: + anemia, bleeding or bruising. LYMPHATICS: No enlarged nodes. No history of splenectomy. PSYCHIATRIC: + history of depression or anxiety. ENDOCRINOLOGIC: No reports of sweating, cold or heat intolerance. No polyuria or polydipsia. ALLERGIES: No history of asthma, hives, eczema or rhinitis. Vital Signs Vital Signs Vital Signs: 12/01/22 17:38 12/01/22 20:29 Temperature 97.6 F L 98.0 F Temperature Source Temporal Temporal Pulse Rate 103 H 77 Respiratory Rate 18 16 Blood Pressure 76/51 L 132/75 H Blood Pressure Mean 59 94 Pulse Ox 97 95 Oxygen Delivery Method Room Air Physical Exam Narrative Physical Examination: General: Awake, alert, oriented x 3 and cooperative, laying in the ED bed, fatigued appearing. Skin: Normal color, normal turgor, no icterus, no cyanosis except for very staged ecchymoses likely with recent lab draws and IV placements. HEENT: AT/NC, EOMI, PERRLA, dry MM, no carotid bruits or JVD noted; however, thickened neck makes evaluation difficult. Lungs: Diminished, greater bases, proper effort, no rales, ronchi or wheezing. Heart: Currently regular rate and rhythm; no gallop, rub audible. Abdomen: Soft, morbidly obese, no marked tenderness to palpation nor any rebound or guarding, no obvious distention or HSM but habitus makes evaluation very difficult, mildly hyperactive bowel sounds. Extremities: No cyanosis, no clubbing, bilateral lower extremity chronic edema. Neurological: Patient awake, alert, oriented as noted, cognitive function intact; pupils equally reactive to light and accommodation, cranial nerves II-XI I grossly normal, moving all 4 extremities, no focal deficits, strength moderately to severely global decreased. Psychiatric: Affect appears flat, fatigued, no acute evidence of depressive or anxiety feelings but does have underlying history. Results Lab / Micro Data 12/01/22 19:10 12/01/22 19:10 Labs: Laboratory Results - last 24 hr 12/01/22 19:10: WBC 21.7 H, RBC 3.16 L, Hgb 9.3 L, Hct 30.4 L, MCV 96.2, MCH 29.4, MCHC 30.6 L, RDW Std Deviation 72.2 H, RDW Coeff of Edwar 21.2 H, Plt Count 215, MPV 12.3 H, Immature Gran % (Auto) 2.500 H, Neut % (Auto) 66.8, Lymph % (Auto) 9.3 L, [place] % (Auto) 21.1 H, Eos % (Auto) 0.2, Baso % (Auto) 0.1, Absolute Neuts (auto) 14.5 H, Absolute Lymphs (auto) 2.01, Nucleated RBC % 0.5, Differential Comment SEE COMMENT, Diff Path Review May foll, Platelet Estimate ADEQUATE, RBC Morphology N CHROM, Polychromasia RARE, Hypochromasia 1+, Anisocytosis 1+, Macrocytosis 1+, Sodium 140, Potassium 3.8, Chloride 110 H, Carbon Dioxide 20.0 L, Anion Gap 10, BUN 11, Creatinine 0.88, Est GFR (MDRD) Af Amer 81, Est GFR (MDRD) Non-Af 67, BUN/Creatinine Ratio 12.5, Glucose 85, Calcium 7.5 L 12/01/22 19:35: Urine Color Yellow, Urine Clarity Clear, Urine pH 5.0, Ur Specific [place] 1.025, Urine Protein 15 H, Urine Glucose (UA) Normal, Urine Ketones 5 H, Urine Occult Blood 10 H, Urine Nitrite Negative, Urine Bilirubin 1 H, Urine Urobilinogen Normal, Ur Leukocyte Esterase 25 H, Urine RBC 0-5 SEEN, Urine WBC 5-10 SEEN, Ur Squamous Epith Cells 0 SEEN, Urine Bacteria RARE, Hyaline Casts 0-5 SEEN, Urine Mucus 0 SEEN Assessment & Plan Assessment/Plan (1) Failure to thrive in adult: PLAN: Plan The patient is a 69 y/o F w/ PMHx: IBS, Hypothyroidism, OA, Obesity, GERD, Anxiety and Depression/Schizophrenia, recent complicated admission discharged on 12/01/22 with DIC in the setting of acute cholecystitis with acute thrombocytopenia with pending HIT antibody/ADAMTS 13 pending at discharge with no plt transfusion need evaluated per Oncology as well as CARMENZA secondary to ATN requiring temporary HD access placement with ESRD followed by Dr. Celestin in addition to Colitis UC versus ischemic colitis with CT showing mild colitis with pending autoimmune work-up but possibly secondary to DIC placed on budesonide and mesalamine w/ GI evaluation also, administration 1 u PRBC for 11/25/22 Hgb 6.9 stable since, elevated Alk Phos/Bilirubin with unremarkable MRCP with elevated GGT started on ursodiol BID with future plan for cholecystectomy with pending future liver Bx who now re-presents to the [facility] ED on 12/01/22 secondary to evaluation per her PCP who strongly recommended TCU admission instead and referred patient to the ED for transition to TCU. #1. Adult FTT with concurrently noted Leukocytosis, Unclear etiology: Patient with significant issues upon transition to home with PCP follow-up and recommendation for return to hospital for further times for skilled placement and unfortunately patient was unable to be transition to the skilled from the ED despite her recent prolonged stay therefore will admit to medical surgical floor, maintain on fall precautions, patient does have notable leukocytosis with WBC 21.7 with left shift and earlier in the day WBC had been 9.9, will request chest x-ray to be cautious, urinalysis does not look overtly infected, will obtain procalcitonin/CRP/ESR however given recent intra-abdominal concerns for cholecystitis may need to consider reimaging, will await these labs/work-up however low threshold if worsens or febrile to add Zosyn therapy to cover for intra-abdominal possible etiology. #2. Recent hyperbilirubinemia, elevated alk phos: Most recent imaging included abdominal MRI with MRCP on 11/26/2022 noted to be unremarkable at that time with gallbladder wall thickening with pericholecystic fluid likely secondary to ascites and cystic duct noted to be normal with no demonstrated fixed filling defect. Most recent CT abdomen was without IV contrast on 11/24/2022 with noted cholelithiasis with findings of mild cholecystitis as well as findings of questionable mild colitis affecting the transverse colon. GGT had been markedly elevated therefore it was felt a biliary source with alk phos fluctuating, MRCP as noted had been unremarkable, GI consulted and patient started on ursodiol twice daily which will be continued, autoimmune evaluation work-up pending at recent discharge, had previously had plan for cholecystectomy however that was discontinued. #3. Recent DIC with acute thrombocytopenia, resolved: Readmission CBC with platelets 215 with no evidence of any hemorrhage, previous work-up had demonstrated that fibrinogen and had normalized with administration of 5 unit of FFP during prior admission and oncology had been following, will continue to trend CBC. There is still pending ADAMTS 13 as well as HIT antibody assessments from previous discharge. We will hold on any chemoprophylaxis given this history to be cautious. #4. Recent Acute kidney injury secondary to ATN with oliguric status on dialysis previously dialyzed at the [facility] Monday, , Monday schedule however resolved: Patient with transient tunnel catheter placement for hemodialysis, had been followed by Dr. Celestin, current readmission CMP with BUN/creatinine 11/0.88, normalized, resolved, continue to trend. Plan had been at her discharge for follow-up in Dr. Ames office for removal of the dialysis catheter at that time. #5. Recent colitis, unclear if ulcerative versus ischemic, CT demonstrated mild colitis of the colon, autoimmune work-up still pending at recent discharge, DIC work-up has been undertaken as noted and certainly could be related with this presentation, will maintain on budesonide and mesalamine with plans continued outpatient GI follow-up. #6. Chronic normocytic anemia: Admission hemoglobin 9.3, MCV 96.2, recent baseline has primarily been 7-8, stable, continue to trend. #7. Left hip osteoarthritic discomfort status post prior prosthetic joint infection: Patient is nonweightbearing on the left lower extremity, will continue therapies, noted slipped antibiotic spacer in place, following with Dr. Frances. #8. Parkinson disease with Parkinson's associated dementia: Complicates presentation, maintain on fall precautions, PT/OT/case management consulted as noted for discharge planning to skilled facility however needs prior authorization. #9. Rheumatoid arthritis: Patient previously had been on methotrexate as well as hydroxychloroquine with folic acid supplementation but these have been held secondary to infection, will await clearance for resumption of this therapy. #10. Hyperlipidemia: Will continue home statin regimen. #11. Hypothyroidism: Continue home Levemir oxygen regimen. #12. Depression and anxiety: We will continue patient home citalopram and olanzapine regimen. #13. GERD: We will maintain on home PPI. #14. DVT prophylaxis: SCDs, defer any chemoprophylaxis given recent acute thrombocytopenia/DIC. #15. CODE status: Discussed CODE status at length including difference between FULL code, DNR-CCA and DNR-CC status. Following discussions about the differenc es in these status, requested Full Code. Admission Evaluation Time spent evaluating chart, patient history, patient evaluation, care planning and discussion with specialists: 60 minutes. Charges/Coding Visit Charges Inpatient E&M: 34029 Init Hosp L2
--- NOTE | 2022-12-01 22:10 | CM.ED ---
Social Work Patient was discharged today from inpatient stay. Pt d/c'd with [facility] plan and order to be signed. Patient went to provider Dr. Herrmann for HHC order to be signed. Dr. Herrmann determined patient needs more care and sent patient to ED to be admitted to TCU. SW introduced self and role to patient and family. Pt's daughter reports Dr. Herrmann made arrangements and patient to be admitted directly to TCU. SW explained insurance requirement for a precert. Family/patient under the impression this has been taken care of already. SW spoke with TCU that reports they have a bed but precert is required. TCU reports that a precert was expedited but not approved. Precert is not able to be obtained due to late time of day. SW collaborated with medical staff to ensure patient needs are met. TCU reports patient needs to be admitted to acute unit to wait for precert. Patient cannot discharge home due to HHC plan not being signed by PCP and patient would not have adequate care. SW discussed self-pay option with pt/family who reports they are unable to self-pay. Pt's insurance had stopped paying for SNF at [facility] earlier this month and patient may be in need of Medicaid assistance. SW also discussed Medicaid options and provided daughter with a Medicaid application. Family expressed frustrations with the situation and SW provided emotional support. Plan: Patient to be admitted to await precert for TCU. Mragi Hogan SLATE MIXER, LAB SUPPORT TECH
[2022-12-01 23:59] LABS: Erythrocyte Sedimentation Rate 14 mm/hr (0-30)
[2022-12-02 00:48] LABS: Procalcitonin 0.64 ng/mL (0.00-0.09)
[2022-12-02 00:54] VITALS: BMI 29.0
[2022-12-02 01:01] VITALS: BP 138/65; PULSE 76; RESP 20; TEMP 36.7; O2SAT 98
[2022-12-02] MEDS: Carbidopa/Levodopa 25/100 Tablet PO ×4 (01:56→15:21)
[2022-12-02] MEDS: Nystatin Powder 15gm Bottle 1 APPLIC TOPICAL ×3 (01:56→13:54)
[2022-12-02] MEDS: Potassium Chloride Oral Tablet 20 MEQ PO ×2 (01:56→08:58)
[2022-12-02] MEDS: Pravastatin 40 MG Tablet PO (01:56)
[2022-12-02] MEDS: Ursodiol 250 MG Tablet PO ×2 (01:56→08:59)
[2022-12-02] MEDS: OLANZapine 2.5 MG Tablet 7.5 MG PO (01:56)
[2022-12-02] MEDS: 0.9% Normal Saline 1,000 ML 999 ML IV (03:00)
[2022-12-02 05:17] VITALS: BP 155/73; PULSE 74; RESP 20; TEMP 36.6; O2SAT 97
[2022-12-02] MEDS: Levothyroxine 75 MCG Tablet PO (05:17)
[2022-12-02] MEDS: Menthol/Lanolin/Calamine/Znox 113 GM Tube 1 APPLIC TOPICAL ×2 (05:17→13:55)
--- NOTE | 2022-12-02 05:40 | RAD_ITS ---
EXAM: XR CHEST, 2 VIEWS CLINICAL INDICATION: Leukocytosis TECHNIQUE: Frontal and lateral views of the chest. COMPARISON: 11/19/2022. FINDINGS: LUNGS AND PLEURAL SPACES: Unremarkable. No consolidation or edema. No pneumothorax. No effusion. HEART: Unremarkable. Cardiac silhouette not enlarged. MEDIASTINUM: Central airways and mediastinal contour are unremarkable. BONES/JOINTS: Unremarkable. SOFT TISSUES: Unremarkable. TUBES, LINES AND DEVICES: No change dialysis catheter. RAD/Chest PA and Lateral IMPRESSION: 1. No change dialysis catheter. 2. No acute cardiopulmonary abnormality. Electronically Signed: Saleem Walsh MD at 6:25 EDT ,
[2022-12-02 07:01] LABS: Absolute Lymphocyte Count 2.45 X10^3/uL (0.83-4.51); Absolute Neutrophil Count 8.5 X10^3/uL (2.0-7.7); Basophil# 0.04 X10^3/uL; Basophil% 0.3 % (0-1); Eosinophil# 0.23 X10^3/uL; Eosinophils% 1.6 % (0-5); Hematocrit 28.1 % (37-47); Hemoglobin 8.5 g/dL (12.0-15.0); Lymphocyte # 2.45 X10^3/ul (0.83-4.51); Lymphocyte % 16.7 % (19-41); Mean Corp Hgb Conc 30.2 g/dL (32-36); Mean Corpuscular Hgb 29.1 pg (27.0-32.0); Mean Corpuscular Volume 96.2 fL (81-99); Mean Platelet Vol. 12.5 fl (6.2-12.0); Monocyte# 3.22 X10^3/uL; Monocyte% 21.9 % (0-10); NRBC Flagged by Analyzer 0.3 % (0-5); Neutrophil # 8.46 X10^3/uL (2.7-7.7); Neutrophil % 57.5 % (47-70); POSITIVE DIFFERENTIAL YES; POSITIVE MORPHOLOGY YES; Platelet Count 177 K/mm3 (150-450); RBC Distribution Width CV 21.2 % (11.6-14.6); Red Blood Count 2.92 M/mm3 (4.2-5.4); White Blood Count 14.7 K/mm3 (4.4-11.0)
[2022-12-02 07:38] LABS: Differential Indicated SCAN CRITERIA MET
[2022-12-02 07:43] LABS: ALB/GLOB Ratio 0.5 RATIO (0.9-2.4); AST(SGOT) 103 U/L (15-37); Alanine Aminotransfer ALT/SGPT 13 U/L (13-56); Albumin, Serum 1.8 g/dL (3.2-5.0); Alkaline Phosphatase 677 U/L (45-117); Anion Gap 6 (5-15); BUN 7 mg/dL (7-18); BUN/Creat Ratio 11.5 RATIO (10-20); Calcium,Total 7.5 mg/dL (8.5-10.1); Chloride 115 mmol/L (98-107); Creatinine, Serum 0.61 mg/dL (0.55-1.02); EST Glomerular Filtration Rate 102 mL/min (>60); Est Glom Filt Rate - Afr Amer 124 mL/min (>60); Estimated Creatinine Clearance 40.83 ml/min; Globulin 3.9 g/dL (2.2-4.2); Glucose 70 mg/dL (74-106); Potassium 3.4 mmol/L (3.5-5.1); Protein, Total 5.7 g/dL (6.4-8.2); Sodium Level 142 mmol/L (136-145)
--- NOTE | 2022-12-02 07:46 | PCM.PN.HOSP ---
Reason for Visit Reason for Visit: Diagnoses Adult failure to thrive (12/01/22) Subjective Subjective No new complaints. Objective Data Objective Data Vital Signs: Vital Signs Temp Pulse Resp BP Pulse Ox O2 Del Method 36.6 C 74 20 H 155/73 H 97 Room Air 12/02/22 05:17 12/02/22 05:17 12/02/22 05:17 12/02/22 05:17 12/02/22 05:17 12/02/22 05:30 Oxygen Delivery Method Room Air Weight: 74.4 kg Body Mass Index (BMI) 29.0 Intake & Output: Intake and Output for Last 24 Hours 11/30/22 12/01/22 12/02/22 23:59 23:59 23:59 Intake Total 1000 / 1000 1100 / 1100 Output Total 100 / 100 Balance 1000 / 1000 1000 / 1000 Lab / Micro Data 12/02/22 06:46 12/02/22 06:46 Labs: Laboratory Results - last 24 hr 12/01/22 19:10: WBC 21.7 H, RBC 3.16 L, Hgb 9.3 L, Hct 30.4 L, MCV 96.2, MCH 29.4, MCHC 30.6 L, RDW Std Deviation 72.2 H, RDW Coeff of Edwar 21.2 H, Plt Count 215, MPV 12.3 H, Immature Gran % (Auto) 2.500 H, Neut % (Auto) 66.8, Lymph % (Auto) 9.3 L, [place] % (Auto) 21.1 H, Eos % (Auto) 0.2, Baso % (Auto) 0.1, Absolute Neuts (auto) 14.5 H, Absolute Lymphs (auto) 2.01, Nucleated RBC % 0.5, Differential Comment SEE COMMENT, Diff Path Review May foll, Platelet Estimate ADEQUATE, RBC Morphology N CHROM, Polychromasia RARE, Hypochromasia 1+, Anisocytosis 1+, Macrocytosis 1+, ESR 14, Sodium 140, Potassium 3.8, Chloride 110 H, Carbon Dioxide 20.0 L, Anion Gap 10, BUN 11, Creatinine 0.88, Est GFR (MDRD) Af Amer 81, Est GFR (MDRD) Non-Af 67, BUN/Creatinine Ratio 12.5, Glucose 85, Calcium 7.5 L, C-React Prot Ext Range 14.30 H 12/01/22 19:35: Urine Color Yellow, Urine Clarity Clear, Urine pH 5.0, Ur Specific [place] 1.025, Urine Protein 15 H, Urine Glucose (UA) Normal, Urine Ketones 5 H, Urine Occult Blood 10 H, Urine Nitrite Negative, Urine Bilirubin 1 H, Urine Urobilinogen Normal, Ur Leukocyte Esterase 25 H, Urine RBC 0-5 SEEN, Urine WBC 5-10 SEEN, Ur Squamous Epith Cells 0 SEEN, Urine Bacteria RARE, Hyaline Casts 0-5 SEEN, Urine Mucus 0 SEEN 12/02/22 00:10: Procalcitonin 0.64 H 12/02/22 06:46: WBC 14.7 H, RBC 2.92 L, Hgb 8.5 L, Hct 28.1 L, MCV 96.2, MCH 29.1, MCHC 30.2 L, RDW Std Deviation 73.0 H, RDW Coeff of Edwar 21.2 H, Plt Count 177, MPV 12.5 H, Immature Gran % (Auto) 2.000 H, Neut % (Auto) 57.5, Lymph % (Auto) 16.7 L, [place] % (Auto) 21.9 H, Eos % (Auto) 1.6, Baso % (Auto) 0.3, Absolute Neuts (auto) 8.5 H, Absolute Lymphs (auto) 2.45, Nucleated RBC % 0.3, Sodium 142, Potassium 3.4 L, Chloride 115 H, Carbon Dioxide 21.0, Anion Gap 6, BUN 7, Creatinine 0.61, Estim Creat Clear Calc 40.83, Est GFR (MDRD) Af Amer 124, Est GFR (MDRD) Non-Af 102, BUN/Creatinine Ratio 11.5, Glucose 70 L, Calcium 7.5 L, Total Bilirubin 2.30 H, AST 103 H, ALT 13, Alkaline Phosphatase 677 H, Total Protein 5.7 L, Albumin 1.8 L, Globulin 3.9, Albumin/Globulin Ratio 0.5 L Radiography Diagnostic Testing: Radiology Impression Chest X-Ray 12/02/22 05:40 IMPRESSION: 1. No change dialysis catheter. 2. No acute cardiopulmonary abnormality. Electronically Signed: Saleem Walsh MD at 6:25 EDT , Physical Exam Const alert and no apparent distress HEENT head/scalp atraumatic and moist oral mucous membranes Resp normal respiratory effort, no retractions, no use of accessory muscles and clear to auscultation bilaterally Cardio regular rate, regular rhythm, S1 normal heart sound and S2 normal heart sound GI normal to inspection, nondistended, normoactive bowel sounds, soft to palpation, non-tender and non-distended Psych Psych Narrative: flat affect. Assessment & Plan Assessment/Plan (1) Failure to thrive in adult: PLAN: Previously the patient and family did not want a SNF. Plan yesterday was to discharge home then follow up with Dr. Herrmann to get home health care. He felt the patient was a poor candidate for [facility] and sent her back to the ED. There was nothing new with his assessment that the patient is extremely debilitated and we were surprised that the plan was for the patient to go home with [facility]. PLAN: Plan (1) DIC (disseminated intravascular coagulation): PLAN: Acute, resolved. Remains with no current signs of acute hemorrhage Platelets trending up Fibrinogen has normalized Patient with elevated direct bilirubin and normal indirect Patient received 5 units of FFP Oncology following-appreciate input Repeat coags, CBC, and fibrinogen in the a.m. (2) Thrombocytopenia: PLAN: Acute thrombocytopenia secondary to DIC, improving Platelet count was normal in early October with her first abnormal lab being on 10/31/2022 ADAMTS 13 pending--> very low suspicion for TTP at this point HIT antibody pending as patient had been receiving heparin with dialysis No need for current platelet transfusion Oncology is following-appreciate input (3) Hypokalemia: PLAN: Continue to replace. Replace hypomag (4) Hypomagnesemia: PLAN: replace (5) Acute renal failure: QUALIFIERS: Acute renal failure type: with acute tubular necrosis Qualified Code(s): N17.0 - Acute kidney failure with tubular necrosis PLAN: 2/ ATN improving nephrology consulted. Tunneled HD cath to be removed as outpt with general surgery. (6) Colitis: PLAN: GI on consult UC v ischemic colitis colonoscopy CT shows mild colitis of colon Clinical exam is improving and patient is tolerating a p.o. diet -Advance diet to full's and then regular if she does well -Stop IV fluids Autoimmune work-up is pending Could be ischemic with DIC Continue to monitor Budesonide and mesalamine initiated GI following-appreciate input add Imodium (7) Anemia: PLAN: Acute on chronic anemia Baseline hemoglobin until October was between 11 and 12 6.9 a.m. of 11/25/2022 and 1 unit packed red blood cells given Hg overall stable. No need for TF at this time. (8) Hyperbilirubinemia: PLAN: Elevated alk phos/bilirubin Alk phos is remaining elevated but fluctuating -GGT is markedly elevated so this is a biliary source not from her hip and bone issues MRCP is unremarkable Discussed with GI and they asked that we start 250 mg of ursodiol twice daily--> question PBC Autoimmune work-up in progress as well Plans for cholecystectomy have been stopped 11/30: DW Dr. Friend. Diaz for liver Bx, which has been ordered. (9) Hypophosphatemia: PLAN: Improved after replacement Will replace again today. PLAN: Plan Chronic conditions: Left hip osteoarthritis status post prosthetic joint infection-Nonweightbearing on left lower extremity-May need to get PT/OT involvement-Slipped antibiotic spacer in place-Follows with Dr. Frances Parkinson's disease-Continue carbidopa levodopa History of rheumatoid arthritis-Patient had previously been on methotrexate/oxy chloroquine/folic acid-All medications are currently on hold due to infection Hyperlipidemia-Continue statin Hypothyroidism-Continue levothyroxine Depression-Continue citalopram-Continue olanzapine GERD-Continue PPI DVT prophylaxis -On hold due to acute anemia and thrombocytopenia -SCDs CODE STATUS -Full code Charges/Coding Visit Charges Inpatient E&M: 07618 Subs Hosp L2
[2022-12-02 07:48] LABS: Anisocytosis 1+
[2022-12-02 08:41] VITALS: BP 156/74; PULSE 81; RESP 18; TEMP 36.6; O2SAT 97
[2022-12-02] MEDS: Ensure Plus High Protein 120 ML LIQUID PO ×2 (08:56→12:01)
[2022-12-02] MEDS: Budesonide 3 MG CAPSULE.EC 9 MG PO (08:58)
[2022-12-02] MEDS: Citalopram 20 MG Tablet PO (08:58)
[2022-12-02] MEDS: Ferrous Sulfate 325 MG Tablet PO (08:58)
[2022-12-02] MEDS: Mesalamine 1.2 GM Tablet 2.4 GM PO (08:59)
[2022-12-02] MEDS: Pantoprazole Sodium 40 MG Tablet PO (08:59)
[2022-12-02 09:37] VITALS: O2SAT 97
--- NOTE | 2022-12-02 09:54 | CASEMGMT ---
Social Work As per CM, pt was denied by insurance to go to [facility], the physician did an appeal and the appeal was upheld. SW spoke w/pt about this, explained this information and inquired what she would like to do, try home again, or look into going to a fpc either private pay or under pending Medicaid. She states to call her and/or daughter. SW called Yonny. SW explained the above, inquired what he would like to do. states he completed a Medicaid application. SW explained that we can try to get pt into a SNF under pending Medicaid, but we need to get the application over to [facility] today. He has not yet sent in the application. SW asked him to come to hospital and bring in the application so SW can send it to [facility] to get the process going, and also explained when he comes in we can look at SNF options that will take pending Medicaid. states understanding. SW will speak w/ when he arrives and fax in the application to [facility] for Medicaid, to get the process started of getting pt into a SNF under pending Medicaid. TALIA Martin
[2022-12-02 10:47] LABS: Pathologist Review Reviewed
[2022-12-02 10:49] LABS: Pathologist Review Reviewed
[2022-12-02] MEDS: Potassium Chloride Oral Tablet 20 MEQ 40 MEQ PO (12:01)
--- NOTE | 2022-12-02 13:09 | CASEMGMT ---
Social Work SW met w/pt's daughter and in the [facility] waiting room. did complete the Medicaid application, agreeable to have SW send it in to [facility]. SW spoke further w/ and daughter about discharge plan. They actually would like to take pt home rather than send her to a half-way under Medicaid. Pt's is very concerned about finances. SW did advise for them to meet with an elder care environmental attorney, they do have an appt already on December 15. Also, family did not feel pt had good care when at [place], pt was there in October and part of November. Pt's daughter states that they were not checking on her, pt ended up in the hospital due to their lack of care. SW did give them a SNF list via [facility] of facilities in the pt's preferred geographic area, insurance network, and complete with quality and resource use data should it be needed at a later time. SW spoke w/them about home health care, they would like to have pt go home again w/HHC. Daughter states that the family is rearranging their schedule so between pt's son in law, daughter, and granddaughter they will split up the days so they are there to help pt. They are agreeable to having HHC set up again with the same company that was arranged yesterday([employer]), so a new list for HHC is not needed. LEONORA explained will reach out to Dr. Herrmann to see if he will sign the orders. LEONORA faxed the Medicaid application for pt to [facility]. SW spoke w/Dr. Herrmann, explained pt was denied to go to [facility] by insurance and the appeal was also denied. He is agreeable to sign the HHC orders at this time. SW let pt and family know that Dr. Herrmann will sign the HHC orders, and that pt will likely be d/c today. Pt and family state understanding. SW also let them know the Medicaid application was faxed, and gave back the original. LEONORA let CM know, and the HHC referral is being reinitiated. No further needs from LEONORA at this time, pt home w/family and HHC. TALIA Martin
--- NOTE | 2022-12-02 13:21 | DCINST_ITS ---
Discharge Instructions Diet Discharge Diet: No restrictions Activity Discharge Activity: Return to Normal Activity Follow Up Care Test Results: Test results from this visit will be discussed in further detail at your follow- up appointment, if applicable. Discharge Plan Admission Admit Date/Time: 12/01/22 22:57 Primary Reason for Your Visit: debility Attending Provider: Ramsey Mark Primary Care Provider: Raji Herrmann Chi Consulting Providers: Aide Jaramillo Discharge Orders/Prescriptions Prescriptions: Continued pravastatin 40 MG tablet 40 mg PO QHS citalopram 40 mg tablet 20 mg PO DAILY Patient Comments: confirmed with daughter pt is taking 20 mg. olanzapine 7.5 mg tablet 7.5 mg PO QHS potassium chloride 20 mEq tablet,ER particles/crystals 20 meq PO BID levothyroxine 75 mcg tablet 75 mcg PO DAILY carbidopa-levodopa 25-100 mg tablet 1 tab PO TID omeprazole 40 mg capsule,delayed release(DR/EC) 40 mg PO DAILY acetaminophen 500 mg Tablet 1,000 mg PO Q6H PRN PRN (Reason: Pain Score 1-3) Qty: 0 0RF ferrous sulfate 325 mg (65 mg iron) tablet 325 mg PO DAILY Patient Comments: Take 1 tablet by mouth every morning loperamide 2 mg capsule 2 mg PO Q4H PRN (Reason: loose stool) Patient Comments: Take 1 capsule by mouth as directed as needed do not exceed 8 mg/per day ondansetron 4 mg tablet,disintegrating 4 mg PO Q6H PRN (Reason: nausea and vomiting) Patient Comments: Take 1 tablet by mouth as directed as needed every 6 hour PRN oxycodone 5 mg Tablet 5 mg PO Q6H PRN (Reason: Pain Score 4-10) budesonide 3 mg Capsule,Delayed,Extend.Release 9 mg PO DAILY Qty: 90 0RF Ensure Plus High Protein 0.08 gram-1.5 kcal/mL Liquid 120 ml PO TIDCM Qty: 30 0RF mesalamine 1.2 gram Tablet,Delayed Release (Dr/Ec) 2.4 g PO DAILY Qty: 60 0RF nystatin [Nyamyc] 100,000 unit/gram Powder 1 applic topical BID Qty: 30 0RF Protocol: *Topical Application Instructions APPLICATION INSTRUCTIONS: groin Rx Instructions: to affected area ursodiol 250 mg Tablet 250 mg PO BID Qty: 60 0RF Referrals / Follow Up: Domingo Ames MD [Med Staff - Active Staff] - In 1 Week Arnoldo Rose DO [Med Staff - Active Staff] - Within 1 Month Raji Herrmann Chi, MD [Primary Care Provider] - Within 2 Weeks Disposition Disposition (needs filled in before D/C Order can be placed): Home Health Service
--- NOTE | 2022-12-02 13:26 | DS.PCM_ITS ---
Providers Date of Admission: 12/01/22 Primary Care Physician: Dr. Raji Herrmann MD Reason For Visit: ADULT FTT, NEEDS SNF PLACEMENT Diagnosis Discharge Diagnosis (1) Failure to thrive in adult: Status: Acute Code(s): R62.7 - Adult failure to thrive Plan: Previously the patient and family did not want a SNF. Plan yesterday was to discharge home then follow up with Dr. Herrmann to get home health care. He felt the patient was a poor candidate for [facility] and sent her back to the ED. TCU denied by insurance and denies again on appeal Home w [facility] Plan (1) DIC (disseminated intravascular coagulation): PLAN: Acute, resolved. Remains with no current signs of acute hemorrhage Platelets trending up Fibrinogen has normalized Patient with elevated direct bilirubin and normal indirect Patient received 5 units of FFP Oncology following-appreciate input Repeat coags, CBC, and fibrinogen in the a.m. (2) Thrombocytopenia: PLAN: Acute thrombocytopenia secondary to DIC, improving Platelet count was normal in early October with her first abnormal lab being on 10/31/2022 ADAMTS 13 pending--> very low suspicion for TTP at this point HIT antibody pending as patient had been receiving heparin with dialysis No need for current platelet transfusion Oncology is following-appreciate input (3) Hypokalemia: PLAN: Continue to replace. Replace hypomag (4) Hypomagnesemia: PLAN: replace (5) Acute renal failure: QUALIFIERS: Acute renal failure type: with acute tubular necrosis Qualified Code(s): N17.0 - Acute kidney failure with tubular necrosis PLAN: 2/ ATN improving nephrology consulted. Tunneled HD cath to be removed as outpt with general surgery. (6) Colitis: PLAN: GI on consult UC v ischemic colitis colonoscopy CT shows mild colitis of colon Clinical exam is improving and patient is tolerating a p.o. diet -Advance diet to full's and then regular if she does well -Stop IV fluids Autoimmune work-up is pending Could be ischemic with DIC Continue to monitor Budesonide and mesalamine initiated GI following-appreciate input add Imodium (7) Anemia: PLAN: Acute on chronic anemia Baseline hemoglobin until October was between 11 and 12 6.9 a.m. of 11/25/2022 and 1 unit packed red blood cells given Hg overall stable. No need for TF at this time. (8) Hyperbilirubinemia: PLAN: Elevated alk phos/bilirubin Alk phos is remaining elevated but fluctuating -GGT is markedly elevated so this is a biliary source not from her hip and bone issues MRCP is unremarkable Discussed with GI and they asked that we start 250 mg of ursodiol twice daily--> question PBC Autoimmune work-up in progress as well Plans for cholecystectomy have been stopped 11/30: MICHAELA Diaz for liver Bx, which has been ordered. (9) Hypophosphatemia: PLAN: Improved after replacement Will replace again today. PLAN: Plan Chronic conditions: * Left hip osteoarthritis status post prosthetic joint infection- Nonweightbearing on left lower extremity-May need to get PT/OT involvement- Slipped antibiotic spacer in place-Follows with Dr. Frances * Parkinson's disease-Continue carbidopa levodopa * History of rheumatoid arthritis-Patient had previously been on methotrexate/oxy chloroquine/folic acid-All medications are currently on hold due to infection * Hyperlipidemia-Continue statin * Hypothyroidism-Continue levothyroxine * Depression-Continue citalopram-Continue olanzapine * GERD-Continue PPI DVT prophylaxis -On hold due to acute anemia and thrombocytopenia -SCDs CODE STATUS -Full code Medications at Discharge Home Medications pravastatin 40 mg tablet 40 mg PO QHS CHOLESTEROL 03/22/17 carbidopa 25 mg-levodopa 100 mg tablet 1 tab PO TID parkinsons 09/13/22 citalopram 40 mg tablet 20 mg PO DAILY DEPRESSION 09/13/22 levothyroxine 75 mcg tablet 75 mcg PO DAILY THYROID 09/13/22 olanzapine 7.5 mg tablet 7.5 mg PO QHS MOOD 09/13/22 omeprazole 40 mg capsule,delayed release 40 mg PO DAILY ACID REFLUX 09/13/22 potassium chloride 20 mEq tablet,extended release(part/cryst) 20 meq PO BID SUPPLEMENT 09/13/22 acetaminophen 500 mg tablet 1,000 mg (2 x 500 mg) PO Q6H PRN PRN Pain Score 1-3 #0 tabs 09/28/22 ferrous sulfate 325 mg (65 mg iron) tablet 325 mg PO DAILY supplimentation 11/24/22 loperamide 2 mg capsule 2 mg PO Q4H PRN loose stool 11/24/22 ondansetron 4 mg disintegrating tablet 4 mg PO Q6H PRN nausea and vomiting 11/24/22 oxycodone 5 mg tablet 5 mg PO Q6H PRN Pain Score 4-10 11/24/22 budesonide 3 mg capsule,delayed,extended release 9 mg (3 x 3 mg) PO DAILY #90 ea 12/01/22 food supplemt, lactose-reduced 0.08 gram-1.5 kcal/mL oral liquid (Ensure Plus High Protein) 120 ml PO TIDCM #30 BOTTLES 12/01/22 mesalamine 1.2 gram tablet,delayed release 2.4 g (2 x 1.2 gram) PO DAILY #60 tabs 12/01/22 nystatin 100,000 unit/gram topical powder (Nyamyc) 1 applic topical BID #30 grams 12/01/22 ursodiol 250 mg tablet 250 mg PO BID #60 tabs 12/01/22 Weight / BMI Weight Weight: 74.4 kg Body Mass Index (BMI) 29.0 ABG / Lab / Microbiology Data 12/02/22 06:46 12/02/22 06:46 Laboratory: Laboratory Results - last 24 hr 12/01/22 19:10: WBC 21.7 H, RBC 3.16 L, Hgb 9.3 L, Hct 30.4 L, MCV 96.2, MCH 29.4, MCHC 30.6 L, RDW Std Deviation 72.2 H, RDW Coeff of Edwar 21.2 H, Plt Count 215, MPV 12.3 H, Immature Gran % (Auto) 2.500 H, Neut % (Auto) 66.8, Lymph % (Auto) 9.3 L, Terry % (Auto) 21.1 H, Eos % (Auto) 0.2, Baso % (Auto) 0.1, Absolute Neuts (auto) 14.5 H, Absolute Lymphs (auto) 2.01, Nucleated RBC % 0.5, Differential Comment SEE COMMENT, Diff Path Review Reviewed, Platelet Estimate ADEQUATE, RBC Morphology N CHROM, Polychromasia RARE, Hypochromasia 1+, Anisocytosis 1+, Macrocytosis 1+, ESR 14, Sodium 140, Potassium 3.8, Chloride 110 H, Carbon Dioxide 20.0 L, Anion Gap 10, BUN 11, Creatinine 0.88, Est GFR (MDRD) Af Amer 81, Est GFR (MDRD) Non-Af 67, BUN/Creatinine Ratio 12.5, Glucose 85, Calcium 7.5 L, C-React Prot Ext Range 14.30 H 12/01/22 19:35: Urine Color Yellow, Urine Clarity Clear, Urine pH 5.0, Ur Specific [place] 1.025, Urine Protein 15 H, Urine Glucose (UA) Normal, Urine Ketones 5 H, Urine Occult Blood 10 H, Urine Nitrite Negative, Urine Bilirubin 1 H, Urine Urobilinogen Normal, Ur Leukocyte Esterase 25 H, Urine RBC 0-5 SEEN, Urine WBC 5-10 SEEN, Ur Squamous Epith Cells 0 SEEN, Urine Bacteria RARE, Hyaline Casts 0-5 SEEN, Urine Mucus 0 SEEN 12/02/22 00:10: Procalcitonin 0.64 H 12/02/22 06:46: WBC 14.7 H, RBC 2.92 L, Hgb 8.5 L, Hct 28.1 L, MCV 96.2, MCH 29.1, MCHC 30.2 L, RDW Std Deviation 73.0 H, RDW Coeff of Edwar 21.2 H, Plt Count 177, MPV 12.5 H, Immature Gran % (Auto) 2.000 H, Neut % (Auto) 57.5, Lymph % (Auto) 16.7 L, Terry % (Auto) 21.9 H, Eos % (Auto) 1.6, Baso % (Auto) 0.3, Absolute Neuts (auto) 8.5 H, Absolute Lymphs (auto) 2.45, Nucleated RBC % 0.3, Differential Comment COMMENT, Diff Path Review Reviewed, Anisocytosis 1+, Sodium 142, Potassium 3.4 L, Chloride 115 H, Carbon Dioxide 21.0, Anion Gap 6, BUN 7, Creatinine 0.61, Estim Creat Clear Calc 40.83, Est GFR (MDRD) Af Amer 124, Est GFR (MDRD) Non-Af 102, BUN/Creatinine Ratio 11.5, Glucose 70 L, Calcium 7.5 L, Total Bilirubin 2.30 H, AST 103 H, ALT 13, Alkaline Phosphatase 677 H, Total Protein 5.7 L, Albumin 1.8 L, Globulin 3.9, Albumin/Globulin Ratio 0.5 L Radiography Diagnostic Testing: Radiology Impression Chest X-Ray 12/02/22 05:40 IMPRESSION: 1. No change dialysis catheter. 2. No acute cardiopulmonary abnormality. Electronically Signed: Saleem Walsh MD at 6:25 EDT , D/C Instructions Discharge Diet: No restrictions Meaningful Use Info Meaningful Use Diagnoses (Choose all that apply): None applicable Discharge Plan Admission Admit Date/Time: 12/01/22 22:57 Primary Reason for Your Visit: debility Attending Provider: Ramsey Mark Primary Care Provider: Raji Herrmann Chi Consulting Providers: Aide Jaramillo Discharge Orders/Prescriptions Prescriptions: Continued pravastatin 40 MG tablet 40 mg PO QHS citalopram 40 mg tablet 20 mg PO DAILY Patient Comments: confirmed with daughter pt is taking 20 mg. olanzapine 7.5 mg tablet 7.5 mg PO QHS potassium chloride 20 mEq tablet,ER particles/crystals 20 meq PO BID levothyroxine 75 mcg tablet 75 mcg PO DAILY carbidopa-levodopa 25-100 mg tablet 1 tab PO TID omeprazole 40 mg capsule,delayed release(DR/EC) 40 mg PO DAILY acetaminophen 500 mg Tablet 1,000 mg PO Q6H PRN PRN (Reason: Pain Score 1-3) Qty: 0 0RF ferrous sulfate 325 mg (65 mg iron) tablet 325 mg PO DAILY Patient Comments: Take 1 tablet by mouth every morning loperamide 2 mg capsule 2 mg PO Q4H PRN (Reason: loose stool) Patient Comments: Take 1 capsule by mouth as directed as needed do not exceed 8 mg/per day ondansetron 4 mg tablet,disintegrating 4 mg PO Q6H PRN (Reason: nausea and vomiting) Patient Comments: Take 1 tablet by mouth as directed as needed every 6 hour PRN oxycodone 5 mg Tablet 5 mg PO Q6H PRN (Reason: Pain Score 4-10) budesonide 3 mg Capsule,Delayed,Extend.Release 9 mg PO DAILY Qty: 90 0RF Ensure Plus High Protein 0.08 gram-1.5 kcal/mL Liquid 120 ml PO TIDCM Qty: 30 0RF mesalamine 1.2 gram Tablet,Delayed Release (Dr/Ec) 2.4 g PO DAILY Qty: 60 0RF nystatin [Nyamyc] 100,000 unit/gram Powder 1 applic topical BID Qty: 30 0RF Protocol: *Topical Application Instructions APPLICATION INSTRUCTIONS: groin Rx Instructions: to affected area ursodiol 250 mg Tablet 250 mg PO BID Qty: 60 0RF Referrals / Follow Up: Domingo Ames MD [Med Staff - Active Staff] - In 1 Week Arnoldo Rose DO [Med Staff - Active Staff] - Within 1 Month Raji Herrmann Chi, MD [Primary Care Provider] - Within 2 Weeks Disposition Disposition (needs filled in before D/C Order can be placed): Home Health Service Charges/Coding Visit Charges Inpatient E&M: 85162 Disch Hosp
[2022-12-02 13:50] VITALS: BP 133/67; PULSE 81; RESP 16; TEMP 36.4; O2SAT 96
--- NOTE | 2022-12-02 13:51 | CASEMGMT ---
Discharge Planning Referral sent to [facility] to proceed with previous HH referral. Domenica Santos, Discharge Planning Asst.
[2022-12-02] MEDS: oxyCODONE 5 MG Tablet PO (15:21)
--- NOTE | 2022-12-14 13:36 | CASEMGMT ---
Prior authorization information for discharge meds Mesalamine and Budesonide received from [employer]. Call placed to pt's home health provider [facility] and confirmed with Marixa that pt's RN has reached out to Dr. Herrmann to address these medications. [employer] forms faxed to Marixa at [phone] for further follow-up by pt's RN. Orquidea Gresham RN CM
== END 2022-12-02 16:52 | disposition home health service (06) ==
LOC: ED 22:12 → PCU 22:52 → ED 22:57 → MS3 12-02 07:01
PROVIDERS: Physician Assistant; Admitting Provider Family Medicine; Emergency Provider Emergency Medicine; PCP Family Medicine Geriatric Medicine
DX: D65 Disseminated intravascular coagulation [defibrination syndrome] (principal); G20 Parkinson's disease; N17.0 Acute kidney failure with tubular necrosis; M06.9 Rheumatoid arthritis, unspecified; D69.6 Thrombocytopenia, unspecified; R62.7 Adult failure to thrive; R53.1 Weakness; E87.6 Hypokalemia; R53.81 Other malaise; F41.9 Anxiety disorder, unspecified; K52.9 Noninfective gastroenteritis and colitis, unspecified; K21.9 Gastro-esophageal reflux disease without esophagitis; E83.42 Hypomagnesemia; F32.A Depression, unspecified; E03.9 Hypothyroidism, unspecified; Z79.899 Other long term (current) drug therapy; Z79.890 Hormone replacement therapy; D64.9 Anemia, unspecified
CPT/HCPCS: 36415; 71046; 80048; 80053; 81001; 84145; 85025; 85652; 86140; 93005; 94668; 96360; 96361; 97162; 97166; 97802; 99221; 99284; J7030; A4216; G0378

== ENCOUNTER 2022-12-27 09:28 | Day surgery (SDC) | payer MEDICARE, SELFPAY ==
[2022-12-20 11:44] LABS: Hematocrit 35.6 % (37-47); Hemoglobin 10.8 g/dL (12.0-15.0); Mean Corp Hgb Conc 30.3 g/dL (32-36); Mean Corpuscular Hgb 31.4 pg (27.0-32.0); Mean Corpuscular Volume 103.5 fL (81-99); Mean Platelet Vol. 12.3 fl (6.2-12.0); POSITIVE MORPHOLOGY YES; Platelet Count 258 K/mm3 (150-450); RBC Distribution Width CV 17.5 % (11.6-14.6); RBC Distribution Width SD 67.7 fl (35.1-43.9); Red Blood Count 3.44 M/mm3 (4.2-5.4); White Blood Count 9.1 K/mm3 (4.4-11.0)
[2022-12-20 11:50] LABS: Scan Indicated on CBC? Y/N YES- FLAGS NOTED
[2022-12-20 11:54] LABS: International Normalized Ratio 0.9; Prothrombin Time (Protime)PT. 12.6 SECONDS (11.7-14.9)
[2022-12-20 12:08] LABS: Differential Comment SCANNED
[2022-12-27] MEDS: Lactated Ringers 1,000 ML 15 ML IV (10:15)
[2022-12-27 10:16] VITALS: BP 119/69; PULSE 86; RESP 18; TEMP 36.2; O2SAT 95; BMI 29.9
--- NOTE | 2022-12-27 10:33 | PCM.HP.STD ---
HPI - General HPI Narrative DANDRE PERAZA, is a 72 F who presents for elective dialysis catheter removal. Patient no longer requires dialysis. She is having this done in the OR because she is a Milvia lift and we do not have a Milvia lift in the office. [facility] Medical History (Updated 12/20/22 @ 14:45 by Kristy Lopez) Acute diarrhea Anxiety and depression Arthritis Cataracts, bilateral CHI (closed head injury) Chronic anemia GERD (gastroesophageal reflux disease) Hemorrhoids High cholesterol History of renal disease Hypothyroidism IBS (irritable bowel syndrome) Non-smoker Obesity (BMI 30.0-34.9) Osteoarthritis Parkinson disease Pressure ulcer Rheumatoid arthritis Schizophrenia Sleep apnea Ulcerative colitis Uses wheelchair Wears dentures Wears glasses Home Medications pravastatin 40 mg tablet 40 mg PO QHS CHOLESTEROL 03/22/17 [History Last Taken 09/12/22] carbidopa 25 mg-levodopa 100 mg tablet 1 tab PO TID parkinsons 09/13/22 [History Last Taken 12/27/22] citalopram 40 mg tablet 20 mg PO DAILY DEPRESSION 09/13/22 [History Last Taken 09/12/22] levothyroxine 75 mcg tablet 75 mcg PO DAILY THYROID 09/13/22 [History Last Taken 12/27/22] olanzapine 7.5 mg tablet 7.5 mg PO QHS MOOD 09/13/22 [History Last Taken 09/12/22] omeprazole 40 mg capsule,delayed release 40 mg PO DAILY ACID REFLUX 09/13/22 [History Last Taken 12/27/22] potassium chloride 20 mEq tablet,extended release(part/cryst) 20 meq PO BID SUPPLEMENT 09/13/22 [History Last Taken 09/12/22] acetaminophen 500 mg tablet 1,000 mg (2 x 500 mg) PO Q6H PRN PRN Pain Score 1-3 #0 tabs 09/28/22 [Rx Last Taken Unknown] ferrous sulfate 325 mg (65 mg iron) tablet 325 mg PO DAILY supplimentation 11/24/22 [History Last Taken Unknown] loperamide 2 mg capsule 2 mg PO Q4H PRN loose stool 11/24/22 [History Last Taken Unknown] ondansetron 4 mg disintegrating tablet 4 mg PO Q6H PRN nausea and vomiting 11/24/22 [History Last Taken Unknown] oxycodone 5 mg tablet 5 mg PO Q6H PRN Pain Score 4-10 11/24/22 [History Last Taken Unknown] budesonide 3 mg capsule,delayed,extended release 9 mg (3 x 3 mg) PO DAILY #90 ea 12/01/22 [Rx Last Taken Unknown] food supplemt, lactose-reduced 0.08 gram-1.5 kcal/mL oral liquid (Ensure Plus High Protein) 120 ml PO TIDCM #30 BOTTLES 12/01/22 [Rx Last Taken Unknown] mesalamine 1.2 gram tablet,delayed release 2.4 g (2 x 1.2 gram) PO DAILY #60 tabs 12/01/22 [Rx Last Taken Unknown] nystatin 100,000 unit/gram topical powder (Nyamyc) 1 applic topical BID #30 grams 12/01/22 [Rx Last Taken Unknown] ursodiol 250 mg tablet 250 mg PO BID #60 tabs 12/01/22 [Rx Last Taken Unknown] Allergy/AdvReac Type Severity Reaction Status Date / Time linaclotide [From Linzess] Allergy Mild chest Verified 12/20/22 14:24 tightness histamine phosphate Allergy Unknown Verified 12/20/22 14:24 [From Histatrol] Family History Mother Heart disease Father Heart disease Brother Heart disease Surgical History H/O colonoscopy with polypectomy History of hip surgery History of knee replacement History of tonsillectomy and adenoidectomy History of tubal ligation Social History household members: spouse Smoking Status: Never smoker alcohol intake: never substance use type: does not use what type of physical activity do you participate in: walking frequency: 1-2 times per week Vital Signs Vital Signs Vital Signs: 12/27/22 10:16 12/27/22 10:16 Temperature 97.2 F L Temperature Source Temporal Pulse Rate 86 Respiratory Rate 18 Respiratory Pattern Normal Blood Pressure 119/69 Blood Pressure Mean 85 Blood Pressure Source Monitor Blood Pressure Position Semi-Fowlers Blood Pressure Location Left Arm Pulse Ox 95 Oxygen Delivery Method Room Air Weight Weight: 169 lb Body Mass Index (BMI) 29.9 Physical Exam Const alert and oriented x3 HEENT normocephalic Eyes PERRL Resp normal respiratory effort and normal air movement Cardio regular rate and regular rhythm GI soft to palpation, non-tender and non-distended Extremity normal to inspection Results Lab / Micro Data 12/20/22 11:17 Assessment & Plan Assessment/Plan (1) Acute renal failure: QUALIFIERS: Acute renal failure type: with acute tubular necrosis Qualified Code(s): N17.0 - Acute kidney failure with tubular necrosis PLAN: Patient had dialysis catheter placed for acute renal failure. She is functioning well and she was sent here for dialysis catheter removal. I discussed the risks of bleeding and infection with her. Plan for dialysis catheter removal in the OR due to the patient being a Milvia lift. Domingo Ames MD Pager: [facility] [address] [place] [address], [address] [place] [address] Office:
[2022-12-27] MEDS: Lidocaine 1% /Epi 1:100 (20ml) 20 ML Vial (10:48)
--- NOTE | 2022-12-27 11:10 | OP.PCM_ITS ---
Report of Operation Date of Procedure: 12/27/22 Pre-Operative Diagnosis: Need for dialysis catheter removal, history of acute k idney injury Post-Operative Diagnosis: Same Surgery/Procedure Performed:: Right chest tunneled dialysis catheter removal Type of Anesthesia: Local Specimen's removed: Right chest dialysis catheter Estimated Blood Loss (mL): 2 Description of Procedure: Patient was brought back to the operating room. The right chest was prepped and draped in usual sterile fashion. Local anesthetic was injected over the cuff. A small incision was made down to the cuff and was dissected free sharply. The catheter was then removed. The incision was closed with a 3-0 Vicryl suture. Steri-Strips were placed as well as a bandage. Patient was taken to PACU in stable condition.
--- NOTE | 2022-12-27 11:11 | DCINST_ITS ---
Discharge Instructions Diet Discharge Diet: No restrictions Activity Discharge Activity: Return to Normal Activity and May Shower Dressing / Incision Call your doctor if your incision/area has: Continuous Slow Oozing, Sudden Inc reased Bleeding, Increased Pain/ Swelling, Increased Redness and Foul Smelling Discharge Remove Dressing in: 1 day Cleanse incision/area with: Soap & Water Follow Up Care Please Follow Up With: Domingo Ames MD When: as needed, Test Results: Test results from this visit will be discussed in further detail at your follow- up appointment, if applicable. Discharge Plan Admission Attending Provider: Domingo Ames Primary Care Provider: Raji Herrmann Chi Discharge Orders/Prescriptions Prescriptions: No Action pravastatin 40 MG tablet 40 mg PO QHS citalopram 40 mg tablet 20 mg PO DAILY Patient Comments: confirmed with daughter pt is taking 20 mg. olanzapine 7.5 mg tablet 7.5 mg PO QHS potassium chloride 20 mEq tablet,ER particles/crystals 20 meq PO BID levothyroxine 75 mcg tablet 75 mcg PO DAILY carbidopa-levodopa 25-100 mg tablet 1 tab PO TID omeprazole 40 mg capsule,delayed release(DR/EC) 40 mg PO DAILY acetaminophen 500 mg Tablet 1,000 mg PO Q6H PRN PRN (Reason: Pain Score 1-3) Qty: 0 0RF ferrous sulfate 325 mg (65 mg iron) tablet 325 mg PO DAILY Patient Comments: Take 1 tablet by mouth every morning loperamide 2 mg capsule 2 mg PO Q4H PRN (Reason: loose stool) Patient Comments: Take 1 capsule by mouth as directed as needed do not exceed 8 mg/per day ondansetron 4 mg tablet,disintegrating 4 mg PO Q6H PRN (Reason: nausea and vomiting) Patient Comments: Take 1 tablet by mouth as directed as needed every 6 hour PRN oxycodone 5 mg Tablet 5 mg PO Q6H PRN (Reason: Pain Score 4-10) budesonide 3 mg Capsule,Delayed,Extend.Release 9 mg PO DAILY Qty: 90 0RF Ensure Plus High Protein 0.08 gram-1.5 kcal/mL Liquid 120 ml PO TIDCM Qty: 30 0RF mesalamine 1.2 gram Tablet,Delayed Release (Dr/Ec) 2.4 g PO DAILY Qty: 60 0RF nystatin [Nyamyc] 100,000 unit/gram Powder 1 applic topical BID Qty: 30 0RF Protocol: *Topical Application Instructions APPLICATION INSTRUCTIONS: groin Rx Instructions: to affected area ursodiol 250 mg Tablet 250 mg PO BID Qty: 60 0RF Referrals / Follow Up: Raji Herrmann Chi, MD [Primary Care Provider] - Disposition Disposition (needs filled in before D/C Order can be placed): Home, Self Care
== END 2022-12-27 11:47 | disposition home or self-care (01) ==
LOC: SDC 09:29 → AC 09:29
PROVIDERS: Physician Assistant; PCP Family Medicine Geriatric Medicine; Referring Provider Surgery; Visit Provider Surgery
PROC: (CPT 36589; principal; 2022-12-27 10:45)
DX: N17.0 Acute kidney failure with tubular necrosis (principal); G20 Parkinson's disease; D64.9 Anemia, unspecified; E78.00 Pure hypercholesterolemia, unspecified; E03.9 Hypothyroidism, unspecified
CPT/HCPCS: 36589; 36415; 85027; 85610; J7120

== ENCOUNTER → 2023-01-11 | Outpatient (CLI) | payer MEDICARE, SELFPAY ==
[2023-01-11 12:26] LABS: Anion Gap 9 (5-15); BUN 7 mg/dL (7-18); BUN/Creat Ratio 10.5 RATIO (10-20); Chloride 110 mmol/L (98-107); Creatinine, Serum 0.67 mg/dL (0.55-1.02); EST Glomerular Filtration Rate 92 mL/min (>60); Est Glom Filt Rate - Afr Amer 111 mL/min (>60); Glucose 124 mg/dL (74-106); Potassium 3.2 mmol/L (3.5-5.1); Sodium Level 141 mmol/L (136-145)
== END | disposition home or self-care (01) ==
LOC: POLAB3 10:39
PROVIDERS: PCP Family Medicine Geriatric Medicine; Visit Provider Family Medicine Geriatric Medicine
DX: E87.6 Hypokalemia (principal)
CPT/HCPCS: 36415; 80048

== ENCOUNTER → 2023-02-21 | Outpatient (CLI) | payer MEDICARE, SELFPAY ==
[2023-02-21 12:45] LABS: Absolute Lymphocyte Count 2.16 X10^3/uL (0.83-4.51); Basophil# 0.03 X10^3/uL; Basophil% 0.5 % (0-1); Hematocrit 45.6 % (37-47); Hemoglobin 14.1 g/dL (12.0-15.0); Lymphocyte # 2.16 X10^3/ul (0.83-4.51); Lymphocyte % 32.7 % (19-41); Mean Corp Hgb Conc 30.9 g/dL (32-36); Mean Corpuscular Hgb 29.7 pg (27.0-32.0); Mean Platelet Vol. 12.3 fl (6.2-12.0); Monocyte# 1.23 X10^3/uL; Monocyte% 18.6 % (0-10); NRBC Flagged by Analyzer 0 % (0-5); Neutrophil # 2.96 X10^3/uL (2.7-7.7); Neutrophil % 44.9 % (47-70); Platelet Count 171 K/mm3 (150-450); RBC Distribution Width CV 12.2 % (11.6-14.6); RBC Distribution Width SD 43.8 fl (35.1-43.9); Red Blood Count 4.75 M/mm3 (4.2-5.4); White Blood Count 6.6 K/mm3 (4.4-11.0)
[2023-02-21 12:58] LABS: Vitamin D,25 Hydroxy 53.6 ng/mL
[2023-02-21 13:15] LABS: ALB/GLOB Ratio 0.7 RATIO (0.9-2.4); AST(SGOT) 31 U/L (15-37); Alanine Aminotransfer ALT/SGPT 10 U/L (13-56); Alkaline Phosphatase 241 U/L (45-117); Anion Gap 9 (5-15); BUN 13 mg/dL (7-18); BUN/Creat Ratio 16.9 RATIO (10-20); Calcium,Total 9.3 mg/dL (8.5-10.1); Chloride 106 mmol/L (98-107); Cholesterol 142 mg/dL (200); Creatinine, Serum 0.77 mg/dL (0.55-1.02); EST Glomerular Filtration Rate 78 mL/min (>60); Est Glom Filt Rate - Afr Amer 94 mL/min (>60); Globulin 4.6 g/dL (2.2-4.2); Glucose 105 mg/dL (74-106); High Density Lipoprotein 52 mg/dL; Potassium 3.6 mmol/L (3.5-5.1); Protein, Total 7.6 g/dL (6.4-8.2); Sodium Level 139 mmol/L (136-145); Thyroid Stim Hormone (TSH) 1.63 uIU/mL (0.358-3.74); Triglycerides 156 mg/dL; Very Low Density Lipoprotein 31 mg/dL (5-40)
== END | disposition home or self-care (01) ==
LOC: POLAB3 11:54
PROVIDERS: PCP Family Medicine Geriatric Medicine; Visit Provider Family Medicine Geriatric Medicine
DX: I10 Essential (primary) hypertension (principal); E55.9 Vitamin D deficiency, unspecified
CPT/HCPCS: 36415; 80053; 80061; 82306; 84443; 85025; 87804; 87807; C9803

== ENCOUNTER → 2023-02-21 | Outpatient (CLI) | payer MEDICARE, SELFPAY | END | disposition home or self-care (01) | PROVIDERS: PCP Family Medicine Geriatric Medicine; Referring Provider Family Medicine Geriatric Medicine; Visit Provider Family Medicine Geriatric Medicine | DX: R68.83 Chills (without fever) (principal) | CPT/HCPCS: 87804; 87807; C9803 ==

== ENCOUNTER → 2023-03-22 | Outpatient (CLI) | payer MEDICARE, SELFPAY ==
[2023-03-22 14:46] LABS: Bacteria 0 SEEN /hpf (None Seen); Mucous, Urine 0 SEEN /hpf (<or=2+); Red Blood Cells-Urine 0 SEEN /hpf (0-5); Squamous Epithelial Cells - UA 0 SEEN /hpf (5-10); White Blood Cells 0 SEEN /hpf (0-5)
[2023-03-22 15:06] LABS: Color, Urine Yellow (Yellow); Glucose, Dipstick Normal (Normal); Ketone-Dipstick Negative (Negative); Leukocyte Esterase-Dipstick 100 /ul (Negative); Nitrite-Dipstick Negative (Negative); Occult Blood-Urine Negative /ul (Negative); Protein-Dipstick Negative (Negative); Urine Bilirubin Dipstick Negative (Negative); Urine Clarity Clear (Clear); Urine Urobilinogen Normal (Normal)
== END | disposition home or self-care (01) ==
LOC: LAB 14:29
PROVIDERS: PCP Family Medicine Geriatric Medicine; Visit Provider Anesthesiology
DX: Z01.818 Encounter for other preprocedural examination (principal)
CPT/HCPCS: 81001

== ENCOUNTER 2023-04-12 05:44 | Inpatient (IN) | payer MEDICARE, SELFPAY ==
[2023-03-21 14:21] LABS: Absolute Lymphocyte Count 1.59 X10^3/uL (0.83-4.51); Absolute Neutrophil Count 3.3 X10^3/uL (2.0-7.7); Basophil# 0.05 X10^3/uL; Basophil% 0.8 % (0-1); Eosinophil# 0.18 X10^3/uL; Eosinophils% 2.8 % (0-5); Lymphocyte # 1.59 X10^3/ul (0.83-4.51); Mean Corp Hgb Conc 30.4 g/dL (32-36); Mean Corpuscular Hgb 29.3 pg (27.0-32.0); Mean Corpuscular Volume 96.2 fL (81-99); Monocyte# 1.24 X10^3/uL; Monocyte% 19.5 % (0-10); NRBC Flagged by Analyzer 0 % (0-5); Neutrophil # 3.25 X10^3/uL (2.7-7.7); Neutrophil % 51.3 % (47-70); Platelet Count 168 K/mm3 (150-450); RBC Distribution Width CV 13.2 % (11.6-14.6); Red Blood Count 4.78 M/mm3 (4.2-5.4); White Blood Count 6.4 K/mm3 (4.4-11.0)
[2023-03-21 14:54] LABS: Albumin, Serum 3.1 g/dL (3.2-5.0); Anion Gap 3 (5-15); BUN 13 mg/dL (7-18); BUN/Creat Ratio 16.4 RATIO (10-20); Calcium,Total 9.3 mg/dL (8.5-10.1); Chloride 107 mmol/L (98-107); Creatinine, Serum 0.79 mg/dL (0.55-1.02); EST Glomerular Filtration Rate 75 mL/min (>60); Est Glom Filt Rate - Afr Amer 91 mL/min (>60); Glucose 96 mg/dL (74-106); Magnesium 2.1 mg/dL (1.6-2.6); Potassium 3.8 mmol/L (3.5-5.1); Sodium Level 138 mmol/L (136-145); Thyroid Stim Hormone (TSH) 3.47 uIU/mL (0.358-3.74)
[2023-03-31 13:21] LABS: Erythrocyte Sedimentation Rate 38 mm/hr (0-30)
[2023-03-31 13:24] LABS: CRP < 2.90 mg/L (0.0-3.0)
--- NOTE | 2023-03-31 17:05 | PCM.HP.BLA ---
History and Physical History and Physical? Patient Name: Kaia Hale : 1950 From:? DEANDRA AMADO PA-C? DATE OF PRE-OPERATIVE EXAM: 03/31/2023 DATE OF SURGERY:? 04/12/2023 SCHEDULED PROCEDURE:? Conversion previous hip surgery to left hip hemiarthroplasty posterior approach HISTORY OF PRESENT ILLNESS: Preoperative history and physical exam was performed on March 31, 2023.? This is a 72-year-old female who presents today with and daughter.? She had a previous left hip intertrochanteric hip fracture in August 2022.? Dr. Jorge Frances performed a left hip cephalo-medullary nail on September 14, 2022.? Following this surgery she underwent a irrigation and debridement of the left hip with removal of the nail and placement of temporary antibiotic spacer by Dr. Martin at an outside facility on October 11, 2022.? Patient had a CT scan at that time which showed fluid collection and possible abscess.? Documentation that we received we did not see any bacteria grown out on cultures.? Patient completed her antibiotics on November 23, 2022.? They do report that with the antibiotics she was placed on vancomycin which did cause acute kidney infarct versus interstitial nephritis.? She had to undergo dialysis.? Patient also reports that at the [facility] she had a DVT but could not give a specific information.? We did reach out to the [facility] in which she did have a DVT in the right upper extremity.? She is currently on no anticoagulation.? She has been released from the acetaldehyde converter operator .? She was also seen infectious disease post-operatively in [place], [place] Dr. Hutchins.? She has been released from both the acetaldehyde converter operator and infectious disease doctors.? Patient has been with minimal ambulation status but has been doing better with transfers.? They use a Milvia lift at times.? Patient has obtain surgical clearance from the primary care physician Dr. Herrmann.? Patient has had preoperative lab work.? Recent inflammatory lab work on March 31, 2023 revealed elevated ESR at 38 and CRP less than 2.9.? She currently denies any chest pain, shortness of breath, fevers chills.? Hypothyroidism, hypertension, Parkinson's disease, gastroesophageal reflux disease, vitamin D deficiency, neuropathy, history of hypokalemia, Ruiz's esophagitis, history of postoperative anemia currently on ferrous sulfate, history of DVT right upper extremity in October 2022 currently on no anticoagulation. REVIEW OF SYSTEMS: Review Of Systems: Constitutional: Denies anorexia, change in appetite, fever, difficulty sleeping, weight change. Cardiovasular: Denies chest pain, heart murmur, irregular heartbeat and peripheral vascular disease. Respiratory: Reports cough, but denies asthma, pneumonia, sleep apnea, shortness of breath, tuberculosis and wheezing. Gastrointestinal: Reports diarrhea, but denies constipation, heartburn, nausea, rectal itching, bloody stools and vomiting. Genitourinary: Genital: reports menstruation problems more than 3 months without a period. Denies incontinence. Musculoskeletal: Reports gait disturbance, leg swelling, pain, trouble walking and weakness. Skin: Denies Raynaud's, history of shingles and tattoo. Neurological: Reports numbness/tingling but denies ambulatory dysfunction, dizziness and tremor. Psychiatric: Reports depression, but denies anxiety, insomnia, mental illness and stress. Hematologic/Lymphatic: Reports bleeding/bruising tendency and past transfusion, but denies anemia. Reviewed and updated. PAST MEDICAL HISTORY: Advance Care Plan: Other Directive, LIVING WILL Effective Date: 03/09/2022 Comments: AND DAUGHTER?? Other Directive, POA Effective Date: 03/09/2022 Past Medical History: Medical Problems: Arthritis, High Blood Pressure, CTS, Thyroid Disease, Depression, Hypercholesterolemia, Parkinson's Disease, Acid Reflux, vitamin D deficency, hypothyroidism, neuropathy, hypokalemia, barretts esophogitus, history of postop anemia, Ruiz's Esophagus, History of acute DVT of Rue Accidents: Fracture - RT ANKLE 09-06-10 RT Hand - (05/18/2020) CAT BITE Surgical Hx: Tonsillectomy - A CHILD IN [place] Tubal Ligation - [facility] RT Heel Spur Surgery, [facility], DR Zambrano, RT Middle, Ring Finger Trigger Release Knee Replacement LT - (10/2017) [email or web address] Caudal Epidural Steroid Injection - (09/13/2022) Dr Juliana Levy @ [facility] Left Hip Cephalomedullary Nail - (09/14/2022) DR. FRANCES @ [facility]? Hip Replacement LT - (10/11/2022) [facility] ? Anesthesia Complications: Anesthesia Complications - TROUBLE WAKING UP WITH DENTAL ONLY? Assistive Devices: Glasses, Dentures, Wheel Chair, Walker - FOR SUPPORT? Reviewed and updated. SOCIAL HISTORY: Social History: Marital: .Occupation: Retired.Work Status: Retired.Hand Dominance: Right-handed. Personal Habits:? Cigarette Use: Never Smoked Cigarettes.Smokeless Tobacco: Never Used Smokeless Tobacco.E-Cigarette Use: Never used.Alcohol: Denies use.Drug Use: Denies Use.Enjoy Exercising: Exercises 1-3 x/month. Reviewed, no changes. VITALS: Ht: 63 Wt: 139lb Wt k.050 BMI: 24.6 BP: 128/78 Pulse: 94 Resp: 14 T: 96.7 T: 35.9C Pain Level: 1 O2SatR: 95 ALLERGIES: Histamine Phosphate Vancomycin - acute cardiac infarction? MEDICATIONS: Acetaminophen 500 mg every 6 hours as needed, Olanzapine 7.5 mg daily, Potassium Chloride Latrice ER 20 Meq twice a day, Levothyroxine Sodium 75 mcg daily, Citalopram Hydrobromide 40 mg 1po qday, Carbidopa-Levodopa 25-100 mg 1po tid, Amlodipine Besylate 5 mg 1 by mouth every day, [facility] Adult 50+ Probiotic Adlt 50+ one cap po once daily, Ferrous Sulfate 325 (65 Fe) MG one tab po once daily, Loperamide HCL 2 mg two caps po prn, Ondansetron HCL 4 mg one tab q6hrs prn, Pantoprazole Sodium 40 mg 1 by mouth every day, Pravastatin Sodium 40 mg daily, Neomycin/Polymyxin/Dexamethasone 3.5-90206-1.1, Terbinafine HCL 250 mg daily, Albuterol Sulfate HFA 108 (90 Base) mcg/Act, Prednisone 10 mg daily PRE-OP EXAM:? General appearance:NORMAL? ? ? Other: Eyes: Conjunctivae and lids: NORMAL? Pupils: ERR Ears, Nose, Mouth, and Throat: NORMAL? Other: Inspection of lips, teeth and gums: NORMAL? ?Other: Neck: Examination of neck: no masses noted. Respiratory: Assessment of respiratory effort: NORMAL? ?Other: ?Auscultation of lungs: clear to auscultation no wheezes, rhonchi or rales. Cardiovascular:? Auscultation of heart: regular rate and rhythm, no murmurs, gallops or rubs. PHYSICAL EXAMINATION: Patient presents today in a wheelchair.? Previous incision well-healed.? No erythema.? Patient had increased pain and limited mobility with the left hip.? Exam was limited at today's visit.? Patient does have a 3 inch shorter left lower extremity when compared to right.? Sensation intact to light touch. IMAGING STUDIES: Previous x-rays of the left hip reveal stable alignment of previous hip hemiarthroplasty.? Acetabular joint space remained stable without significant bony erosion.? Patient does have subsidence of the temporary spacer hemiarthroplasty with significant shortening of the extremity.? There is also comminution of the greater trochanteric fragment. IMPRESSION: 1.? Left hip temporary antibiotic spacer hemiarthroplasty with removal of previous cephalad medullary nail 2.? Hypertension 3.? Hypothyroidism 4.? Depression 5.? Hypercholesterolemia 6.? Parkinson's disease 7.? Gastroesophageal reflux disease 8.? Neuropathy 9.? Ruiz's esophagitis 10.? Vitamin D deficiency 11.? History of hypokalemia 12.? History of postop anemia currently on ferrous sulfate 13.? Recent history October 2022 DVT right upper extremity PLAN: Dr. Jorge Frances did discuss and review with the patient all treatment options including surgical versus nonsurgical options.? Patient does wish to proceed with the above-stated procedure.? Potential risks, benefits, and complications of the procedure were discussed in detail including but not limited to , infection, nerve and blood vessel damage, persistent pain, numbness, tingling, paresthesias, blood clot, pulmonary embolism, and requirement for possible further surgery.? The patient expressed full understanding and has no further questions for the doctor.? Patient does agree to proceed with the above-stated procedure and has signed the surgery consent form.? It was discussed previously with Dr. Jorge Frances the possibility of patient having a shorter leg length on the left as well as potential risk for neurovascular injuries. POST-OP MEDICATION PLAN: Pain Medications:? Discussed with the patient and family postoperative treatment with pain regimen.? All questions were answered.? I did explain to them that we will be following cultures and she will be placed on oral antibiotics.? Possible consultation in the hospital with infectious disease. DVT Prophylaxis:? Due to previous DVT of the right upper extremity in October 2022, we are going to proceed with appropriate anticoagulation postoperatively due to the increased risk of DVT. This dictation was created using voice recognition software. Phonetic and/or grammatical errors may exist. ___? I have re-examined the patient.? There are no clinical changes since date of exam. ___? See progress notes for changes. ___? Dictated on admission Date: ? ? ?Time: Signature:
[2023-04-12] VITALS (16 sets, daily range): BP systolic 105–136; BP diastolic 45–89; PULSE 72–95; RESP 15–18; TEMP 36–37.1; O2SAT 93–99; BMI 24.6; BMI 30.5
[2023-04-12] MEDS: Lactated Ringers 1,000 ML 999 ML IV ×2 (06:40→12:53)
[2023-04-12] MEDS: Acetaminophen 500 MG Tablet 1000 MG PO ×3 (06:55→22:48)
[2023-04-12] MEDS: Gabapentin 600 MG Tablet PO (06:55)
[2023-04-12] MEDS: Magnesium 1 GM over 15 mins IV (06:55)
[2023-04-12] MEDS: Cefazolin 2 GM in 0.9% Normal Saline (100mL Bag) 100 ML IV (08:35)
[2023-04-12] MEDS: TRANEXAMIC ACID 2,000 MG in 0.9% Normal Saline (100mL Bag) 100 ML 660 MG IV (08:45)
[2023-04-12] MEDS: dexAMETHasone 10 MG/ML Vial IV (09:00)
[2023-04-12 09:04] LABS: Bedside Glucose 101 mg/dL (74-106)
[2023-04-12] MEDS: Heparin 10,000 UNITS/10 ML Vial 10000 UNITS (09:30)
[2023-04-12] MEDS: JPS (Morphine 10mg/ml) OPERA.SITE (11:12)
--- NOTE | 2023-04-12 11:13 | PCM.OPRPT ---
Report of Operation Date of Procedure: 04/12/23 Surgery/Procedure Performed:: Conversion previous antibiotic spacer to left hip hemiarthroplasty Surgeon: Jorge Frances nickel operator: Ramesh Mack Type of Anesthesia: General Anesthesiologist: Robert Childers Special Medications: 2 g Ancef, 1 g TXA at incision, 1 g TXA closure, 10 mg Decadron, joint cocktail (5 mg Duramorph, 30 mL of 0.5% Ropivicaine, 1000 units of epinephrine, 30 mg of Toradol) Specimen's removed: 3 separate specimens were sent to microbiology Estimated Blood Loss (mL): 400 Fluids Replaced: 1800 mL crystalloid Admit VTE Documentation VTE Present on Admission: No VTE Mechan Device Prophylaxis: SCD's and Thigh High BIENVENIDO Hose VTE Pharm Prophylaxis ordered?: Yes
--- NOTE | 2023-04-12 12:25 | RAD_ITS ---
STUDY: X-RAY - PELVIS AND LEFT HIP REASON FOR EXAM: Female, 72 years old. Postoperative evaluation after left ReVision total hip arthroplasty. TECHNIQUE: 3 views of the pelvis and hip. COMPARISON: September 29, 2022 FINDINGS: Osteopenia with placement of the left revision total hip arthroplasty in anatomic alignment. Expected postsurgical changes of soft tissue gas and soft tissue swelling. No complications. RAD/Hip Min 2 Views (Portable) IMPRESSION: Placement of ReVision left total hip arthroplasty without complications. Electronically Signed: Pacheco Mota MD at 13:18 EST ,
--- NOTE | 2023-04-12 14:17 | OP.PCM_ITS ---
Report of Operation Date of Procedure: 04/12/23 Pre-Operative Diagnosis: Subsided antibiotic spacer, previous failed left hip n ail with infection. Post-Operative Diagnosis: Left hip subsided antibiotic spacer due to previous failed hip nail with infectious etiology. Surgery/Procedure Performed:: Conversion previous left hip surgery to hemiarthroplasty. Removal of antibiotic spacer. Description of Surgical Findings:: Patient had antibiotic spacer with significant shortening of structures. Some length was partially restored. Patient had previous intertrochanteric fracture and the greater trochanteric area was completely denuded of abductor attachments. Surgeon: Jorge Frances private branch exchange service advisor: Ramehs Mack Type of Anesthesia: General Anesthesiologist: Robert Childers Special Medications: 2 g Ancef, 1 g TXA at incision, 1 g TXA closure, 10 mg Decadron, joint cocktail (5 mg Duramorph, 30 mL of 0.5% Ropivicaine, 1000 units of epinephrine, 30 mg of Toradol) Specimen's removed: 3 separate specimens were sent to microbiology Estimated Blood Loss (mL): 400 Fluids Replaced: 1800 mL crystalloid Description of Procedure: Implants Femur: Buddhism modular femoral stem 150 mm x 18 mm. Buddhism modular conical body 23 mm x +20 mm Femoral head: Bipolar Carlos 43 mm cobalt chromium femoral head with 26 mm, +4 mm cobalt chromium in her head. Brief history operative indications: This is a 72-year-old female had previous intertrochanteric hip fracture. She presented to the emergency department with open draining wound and failed fracture fixation. She was transferred to outside hospital she received a antibiotic spacer. Spacer eventually subsided and she returned to my care. Previous cultures were which were available showed no growth. Patient completed a course of IV antibiotics and was eventually readied for removal of the spacer placement of partial hip replacement. We elected to proceed with partial replacement due to patient's medical comorbidities as well as her previous fracture and attempt to give her the most stable construct. Risks and benefits of the procedure were discussed with the family and patient including but not limited to continued leg length discrepan cy, blood loss, DVTs, PEs,, neurovascular damage, and risk of anesthesia including loss of life. Patient demonstrates an understanding. We also discussed korin risk of continued instability. Procedure: On the date of the procedure patient was seen and evaluated in the preoperative area. Left hip was marked and agreed upon as the operative hip. Patient was then taken back to the operating room and they transferred the table in supine position. Anesthesia assumed control of the C-spine and airway and remained controlled throughout the remainder of the procedure. After administering anesthetic all bony prominences were identified well-padded and patient was placed in lateral decubitus position. Patient was secured to the bed using a pegboard and a axillary roll was placed. At this time the left lower extremity was prepped using chlorhexidine and the surgeon scrubbed. Upon entering the room the left lower extremity was draped in standard routine fashion incision was marked out and timeout was called. We would agree with the cycle at this site, the procedure be performed, patient identity and antibiotics given. We did use the previous incision we did curved posteriorly before going to the most proximal aspect in order to have better exposure. Incision was taken down through skin subtenons tissue fat down to fascia. Hemostasis was obtained during this portion of the procedure. Fascia was identified and appropriate cuff of tissue was prepared. Fascia was then incised in line with the skin incision and Charnley retractor was placed. At this point we could see that there was no abductor tendon tissue attached to the current greater trochanteric area they remain. Based on preoperative radiographs we carefully debrided bone around the femoral head removing excess of tissue. We carefully exposed the femoral head using a posterior approach and dislocated the hip posteriorly. Once we did this we were able to dissociate the femoral head from the trunnion. 5 prescription was placed on the femoral implant and it was removed. Cement mantle came out in its entirety with the stem. At this time we are able to examine the acetabulum and it was intact and stable. We elected to proceed with her hemiarthroplasty as planned. We carefully did releases around the femur in order to 1 pair of the bone for surgery and to restore some leg length to the patient. After we did our soft tissue releases we then reamed the proximal femur for the 18 mm femoral stem. A trial femoral stem was placed and we reamed for the cone body. 23 mm cone body was reamed appropriately we began with a standard stem. We carefully built up to a +20 mm stem when she gave us appropriate leg lengths. Patient's soft tissues including her quadriceps were tight however we were able to restore some of her leg length. We also were able to maintain stability of the hip with a +4 mm femoral head. Once this was completed we dislocated the hip and remove the trial components. The wound was copiously irrigated out with 6 L normal saline under low-pressure lavage. Final femoral components were opened. Stem was impacted into place. Cone body was impacted into place at the appropriate anteversion and locking screw was placed. Finally, the trunnion was cleaned and the femoral head after vigorous opening of the back to for a bipolar femoral head was impacted into place and Harrison taper was verified. Hip was reduced and a 3-minute dilute Betadine lavage was performed. Hip remained stable leg lengths were partially corrected however we were unable to restore all of her leg length based on the available soft tissue releases and tension of the tissues. After 3-minute dilute Betadine lavage a 1 minute chlorhexidine lavage was performed finally the wound was copiously irri gated out with normal saline. Fascia was then repaired using #1 Vicryl interrupted sutures to start with and then #1 STRATAFIX running suture. Deep fatty layer was closed with Vicryl suture and 2-0 Vicryl suture was used for skin layer. Final skin layer was done with nylon sutures. Sterile dressing was placed. Patient was placed back in supine position and awakened by anesthesia. Patient was eventually transferred to PACU for recovery in stable condition. Postop plan: DVT prophylaxis: Eliquis 2.5 mg p.o. twice daily Weightbearing status: Weightbearing as tolerated Therapy: Strict posterior precautions for 6 weeks Postop antibiotics: Patient be placed on doxycycline 100 mg p.o. twice daily for 2 weeks as we follow cultures. During the course of the procedure the physician infection preventionist (PE) played a vital role. Their intimate knowledge of my steps in the procedure aided in safe and expedient completion of the procedure. The PE played a vital rolls in positioning particularly in obtaining the appropriate lateral decubitus position. The PE was also vital in the retraction of soft tissues during the exposure and especially the femoral work as this is a vital part of the procedure to prevent complications and fractures. The PE was also vital and protecting soft tissues during times of bony cuts and reaming. He also played a vital role in closure with my direct supervision. The PE was also important during reduction and dislocation of the joint and trials intraoperatively. Complications No intraoperative complications Admit VTE Documentation VTE Present on Admission: No VTE Mechan Device Prophylaxis: SCD's and Thigh High BIENVENIDO Hose VTE Pharm Prophylaxis ordered?: Yes
[2023-04-12] MEDS: Cefazolin 1 GM/50 ML BAG IV (16:58)
[2023-04-12] MEDS: Potassium Chloride Oral Tablet 20 MEQ PO (17:05)
[2023-04-12] MEDS: Nystatin Powder 15gm Bottle 1 APPLIC TOPICAL (20:00)
[2023-04-12] MEDS: oxyCODONE 5 MG Tablet PO (20:00)
[2023-04-12] MEDS: OLANZapine 2.5 MG Tablet 7.5 MG PO (22:47)
[2023-04-12] MEDS: Ursodiol 250 MG Tablet PO (22:47)
[2023-04-12] MEDS: Carbidopa/Levodopa 25/100 Tablet PO (22:47)
[2023-04-12] MEDS: Senna/Docusate Sodium 1 Tablet 2 TABLET PO (22:48)
[2023-04-12] MEDS: Pravastatin 40 MG Tablet PO (22:48)
[2023-04-13] VITALS (7 sets, daily range): BP systolic 92–110; BP diastolic 46–60; PULSE 76–96; RESP 16–18; TEMP 36.6–37.1; O2SAT 93–98
[2023-04-13] MEDS: Cefazolin 1 GM/50 ML BAG IV (00:48)
[2023-04-13] MEDS: Nystatin Powder 15gm Bottle 1 APPLIC TOPICAL ×3 (06:03→21:34)
[2023-04-13] MEDS: Carbidopa/Levodopa 25/100 Tablet PO ×3 (06:03→17:27)
[2023-04-13] MEDS: Acetaminophen 500 MG Tablet 1000 MG PO ×3 (06:03→21:34)
[2023-04-13] MEDS: Levothyroxine 75 MCG Tablet PO (06:03)
[2023-04-13] MEDS: 0.9% Saline Lock 10 ML Syringe IV (06:24)
[2023-04-13 07:48] LABS: Hematocrit 31.1 % (37-47); Hemoglobin 9.4 g/dL (12.0-15.0); Mean Corp Hgb Conc 30.2 g/dL (32-36); Mean Corpuscular Hgb 29.9 pg (27.0-32.0); Mean Platelet Vol. 11.3 fl (6.2-12.0); Platelet Count 143 K/mm3 (150-450); RBC Distribution Width CV 13.6 % (11.6-14.6); RBC Distribution Width SD 48.8 fl (35.1-43.9); Red Blood Count 3.14 M/mm3 (4.2-5.4); White Blood Count 27.2 K/mm3 (4.4-11.0)
[2023-04-13 08:07] LABS: Anion Gap 4 (5-15); BUN 14 mg/dL (7-18); Calcium,Total 8.5 mg/dL (8.5-10.1); Chloride 105 mmol/L (98-107); Creatinine, Serum 0.82 mg/dL (0.55-1.02); EST Glomerular Filtration Rate 72 mL/min (>60); Est Glom Filt Rate - Afr Amer 87 mL/min (>60); Estimated Creatinine Clearance 49.79 ml/min; Glucose 111 mg/dL (74-106); Sodium Level 137 mmol/L (136-145)
[2023-04-13] MEDS: Potassium Chloride Oral Tablet 20 MEQ PO ×2 (08:24→17:27)
[2023-04-13] MEDS: Cholecalciferol (VIT D3) 25 MCG TABLET (1,000 UNITS) PO (08:24)
[2023-04-13] MEDS: terbinafine HCL 250 MG TABLET PO (09:44)
[2023-04-13] MEDS: Ursodiol 250 MG Tablet PO ×2 (09:44→21:34)
[2023-04-13] MEDS: Senna/Docusate Sodium 1 Tablet 2 TABLET PO ×2 (09:44→21:34)
[2023-04-13] MEDS: Doxycycline 100 MG CAPSULE PO ×2 (09:44→21:33)
[2023-04-13] MEDS: APIXABAN 2.5 MG TABLET (WCH) PO ×2 (09:45→21:33)
[2023-04-13] MEDS: Famotidine 20 MG Tablet PO (09:45)
[2023-04-13] MEDS: Pantoprazole Sodium 40 MG Tablet PO (09:45)
[2023-04-13] MEDS: Citalopram 20 MG Tablet PO (09:46)
--- NOTE | 2023-04-13 09:53 | PCM.PN.ORT ---
Subjective Subjective Patient is doing well overall. She does have some lightheadedness today. She did have a significant change in her hemoglobin from 14.0-9.4 after surgery. She reports that when she was up with therapy yesterday her leg lengths did feel more appropriate with bahai of the shortening on the left lower extremity. She reports thigh pain today. No associated numbness and tingling distally. No chest pain or short miss of breath. Objective Data Objective Data Vital Signs: Vital Signs Temp Pulse Resp BP Pulse Ox O2 Del Method O2 Flow Rate 97.8 F 89 16 92/55 L 93 Room Air 2 04/13/23 08:01 04/13/23 08:01 04/13/23 08:01 04/13/23 08:01 04/13/23 08:01 04/13/23 08:01 04/13/23 06:06 Oxygen Flow Rate (L/min) 2 Oxygen Delivery Method Room Air Weight: 172 lb 6.4 oz Body Mass Index (BMI) 30.5 Intake & Output: Intake and Output for Last 24 Hours 04/11/23 04/12/23 04/13/23 23:59 23:59 23:59 Intake Total 2732 / 3232 670 / 670 Output Total 925 / 1325 600 / 600 Balance 1807 / 1907 70 / 70 Lab / Micro Data Attestation: I reviewed the patient's lab results. 04/13/23 07:10 04/13/23 07:10 Labs: Laboratory Results - last 24 hr 04/13/23 07:10: WBC 27.2 H, RBC 3.14 L, Hgb 9.4 L, Hct 31.1 L, MCV 99.0, MCH 29.9, MCHC 30.2 L, RDW Std Deviation 48.8 H, RDW Coeff of Edwar 13.6, Plt Count 143 L, MPV 11.3, Sodium 137, Potassium 4.0, Chloride 105, Carbon Dioxide 28.0, Anion Gap 4 L, BUN 14, Creatinine 0.82, Estim Creat Clear Calc 49.79, Est GFR (MDRD) Af Amer 87, Est GFR (MDRD) Non-Af 72, BUN/Creatinine Ratio 17.0, Glucose 111 H, Calcium 8.5 Micro: Microbiology 04/12/23 10:30 Tissue - Hip Femoral Membrane Wound Culture - Preliminary No growth-Final to follow 04/12/23 10:25 Tissue - Hip Femoral Membrane Wound Culture - Preliminary No growth-Final to follow 04/12/23 10:17 Tissue - Hip Wound Culture - Preliminary No growth-Final to follow 03/21/23 13:36 Swab (Method) Nasal Screen MRSA/MSSA - Final Radiography Diagnostic Testing: Radiology Impression Hip X-Ray 04/12/23 12:25 IMPRESSION: Placement of ReVision left total hip arthroplasty without complications. Electronically Signed: Pacheco Mota MD at 13:18 EST , Physical Exam Const alert, oriented x3 and no apparent distress Resp normal respiratory effort Extremity Extremity Narrative: Left lower extremity: Dressing is clean dry and intact Sensations intact to light touch saphenous, sural, superficial peroneal, deep peroneal, and tibial distributions Motors intact EHL, DF, PF calves are soft and supple Assessment & Plan Assessment/Plan (1) History of revision of total replacement of left hip joint: PLAN: Postop day 1 revision left total replacement with removal of antibiotic spacer. Patient does have a history of failed intertrochanteric hip fracture in relation to infection. Cultures have all been negative. Preoperative workup prior to this surgery was not consistent with can continued infectious etiology. 1. DVT prophylaxis: Patient will start Eliquis today. 2.5 mg p.o. twice daily 2. Pain control: Will continue on current regimen patient tolerating well. 3. Lightheadedness: Patient has numerous medical comorbidities as well as age considering anesthesia and introduction of postoperative pain medications this could be multifactorial. I would like to consult medicine for medical management of this patient considering her medical comorbidities. 4. Anemia: Hemoglobin 9.4 postoperatively. In relation to acute blood loss related to surgical intervention. We did attempt to use Cell Saver however blood loss was only 300 and no further blood was returned to the patient. 5. Therapy: Patient is weightbearing as tolerated. Posterior hip precautions. Patient has limited abductor function from intraoperative findings in relation to previous surgeries and intertrochanteric hip fracture which failed to heal. Will need walker. I discussed the patient she will likely need walker or cane chronically due to the lack of abductor function. 6. Disposition: Patient will likely need discharge to rehab or transitional care/nursing home facility in relation to her chronic wasting related to the antibiotic spacer subsidence and inability to bear weight on that left hip for multiple months now. Additionally she will need to have training for her abductor dysfunction. Social work should return to the hospital tomorrow in order to help finalize these plans. Patient will be discharged on doxycycline for 2 weeks as we follow cultures. Current cultures also no growth. [facility] Office:
[2023-04-13] MEDS: Ferrous Sulfate 325 MG Tablet PO (11:37)
--- NOTE | 2023-04-13 13:29 | PCM.CONS.GEN ---
Assessment & Plan Assessment/Plan (1) Acute blood loss anemia: (2) History of revision of total replacement of left hip joint: PLAN: Plan 1. Previous failed left hip nail with infection: Patient had previous left hip cephalomedullary nailing on September 14, 2022 with infection that required antibiotic spacer and now conversion to hemiarthroplasty, removal of antibiotic spacer on 03/23/2023. Patient was out of bed with physical therapy. No acute chest pain or shortness of breath. No numbness or tingling. Patient has Daly catheter clear urine. Advised Daly catheter drain removal tomorrow. H&H 9.4/31.1%. Platelet count 143,000. Electrolytes reviewed and in normal range. BUNs/creatinine 14/0.82. Glucose 111. Tissue culture no growth so far. Eliquis 2.5 mg twice daily as DVT prophylaxis. Pain control PT and OT. 2. Acute blood loss, postoperative:Preoperatively her hemoglobin 14.0 dropped to 9.4 after surgery. Monitor H&H/CBC daily. On ferrous sulfate and vitamin C added. Patient had history of DIC in previous admission in November 2022 and required 5 units of FFP but that resolved. Mild thrombocytopenia. Previous platelet count from November to February 2023 has been normal more than 150,000. 3. Chronic Parkinson's disease: Continue carbidopa levodopa. 4. History of rheumatoid arthritis: 5. Hypothyroidism 6. Dyslipidemia 7. Other comorbidities include GERD and depression: Continue citalopram olanzapine and PPI. Total time of the visit including total time spent in counseling or coordination of care, (more than 50% of the total time, spent in obtaining medical information from nurses and other ancillary care providers,explaining to the patient about labs, imaging, diagnosis and management of active complex medical conditions), review of previous medical record, complex medical conditions, review of labs and imaging is 50 minutes. Living will/advanced directive/end of life care: Patient does have living will or advanced directive. Her is power of real estate attorney for health after discussion of benefits/risks procedures involved with full code, DNR CC arrest and DNR CC, the patient opted for DNRCC arrest with no intubation Patient doesn't want artificial life support including intubation, tube feed, ventilator and/chest compression, central venous catheter, vasopressor and DC shock if needed Total time spent in [id number] encounter in discussion of advanced directive 17 minutes. Microbiology Past 72 Hours 04/12/23 10:30 Tissue - Hip Femoral Membrane Wound Culture - Preliminary No growth-Final to follow 04/12/23 10:25 Tissue - Hip Femoral Membrane Wound Culture - Preliminary No growth-Final to follow 04/12/23 10:17 Tissue - Hip Wound Culture - Preliminary No growth-Final to follow Laboratory Results 04/13/23 07:10: WBC 27.2 H, RBC 3.14 L, Hgb 9.4 L, Hct 31.1 L, MCV 99.0, MCH 29.9, MCHC 30.2 L, RDW Std Deviation 48.8 H, RDW Coeff of Edwar 13.6, Plt Count 143 L, MPV 11.3, Sodium 137, Potassium 4.0, Chloride 105, Carbon Dioxide 28.0, Anion Gap 4 L, BUN 14, Creatinine 0.82, Estim Creat Clear Calc 49.79, Est GFR (MDRD) Af Amer 87, Est GFR (MDRD) Non-Af 72, BUN/Creatinine Ratio 17.0, Glucose 111 H, Calcium 8.5 HPI Consult Data Date of Consult: 04/13/23 HPI Narrative Reason for Consultation: Medical management Parkinson's disease hypertension. HPI Narrative: DANDRE PERAZA, is a 72 F Was admitted elective left hip procedure by Dr. Frances after she had failed previous hip nail with infection. Patient had previous left hip intertrochanteric fracture in August 2022 that required left hip cephalomedullary nailing on September 14, 2022. After that patient infection most likely fluid collection/possible abscess that required irrigation and debridement and removal of nail and placement of temporary antibiotic spacer at outside facility on October 11, 2022. Patient completed antibiotic on November 23, 2022. Patient was placed on vancomycin that probably caused CARMENZA versus interstitial nephritis. She had to undergo dialysis and also had DVT in [facility].Currently she is not on anticoagulation. She used to follow outside furnace unloader and ID but both of them released/discharged her. She has multiple comorbidities which include hypertension, hypothyroidism Parkinson's disease, GERD, vitamin D deficiency, peripheral neuropathy, Ruiz's esophagus and history of postoperative anemia.History of DVT in right upper extremity in October 2022, completed anticoagulation. [facility] Medical History Acute diarrhea Anxiety and depression Arthritis Cataracts, bilateral CHI (closed head injury) Chronic anemia GERD (gastroesophageal reflux disease) Hemorrhoids High cholesterol History of renal disease Hypothyroidism IBS (irritable bowel syndrome) Non-smoker Obesity (BMI 30.0-34.9) Osteoarthritis Parkinson disease Pressure ulcer Rheumatoid arthritis Schizophrenia Sleep apnea Ulcerative colitis Uses wheelchair Wears dentures Wears glasses Home Medications pravastatin 40 mg tablet 40 mg PO QHS CHOLESTEROL 03/22/17 [History Last Taken 04/11/23] carbidopa 25 mg-levodopa 100 mg tablet 1 tab PO TID parkinsons 09/13/22 [History Last Taken 04/12/23] citalopram 40 mg tablet 20 mg PO DAILY DEPRESSION 09/13/22 [History Last Taken 04/11/23] levothyroxine 75 mcg tablet 75 mcg PO DAILY THYROID 09/13/22 [History Last Taken 04/12/23] olanzapine 7.5 mg tablet 7.5 mg PO QHS MOOD 09/13/22 [History Last Taken 09/12/22] omeprazole 40 mg capsule,delayed release 40 mg PO DAILY ACID REFLUX 09/13/22 [History Last Taken 04/12/23] potassium chloride 20 mEq tablet,extended release(part/cryst) 20 meq PO BID SUPPLEMENT 09/13/22 [History Last Taken 04/11/23] acetaminophen 500 mg tablet 1,000 mg (2 x 500 mg) PO Q6H PRN PRN Pain Score 1-3 #0 tabs 09/28/22 [Rx Last Taken 04/11/23] ferrous sulfate 325 mg (65 mg iron) tablet 325 mg PO DAILY supplimentation 11/24/22 [History Last Taken 04/11/23] ursodiol 250 mg tablet 250 mg PO BID URINATION #60 tabs 12/01/22 [Rx Last Taken 04/11/23] albuterol sulfate 90 mcg/actuation aerosol inhaler 2 inh inhalation Q6H PRN shortness of breath or wheezing 03/22/23 [History Last Taken 04/11/23] cholecalciferol (vitamin D3) 25 mcg (1,000 unit) capsule (Vitamin D3) 25 mcg PO DAILY SUPPLEMENT 03/22/23 [History Last Taken 04/11/23] docusate sodium 100 mg capsule (DOK) 100 mg PO PRN STOOL SOFTENER 03/22/23 [History Last Taken 04/11/23] food supplemt, lactose-reduced 0.08 gram-1.5 kcal/mL oral liquid (Ensure Plus High Protein) 120 ml PO DAILY SUPPLEMENT 03/22/23 [History Last Taken 04/11/23] psyllium seed (sugar) oral powder (Fiber Therapy (psyllium seed-sucrose) oral powder) 1 tbsp PO DAILY SUPPLEMENT 03/22/23 [History Last Taken 04/11/23] terbinafine HCl 250 mg tablet 250 mg PO DAILY TOE FUNGUS 03/22/23 [History Last Taken 04/11/23] Allergy/AdvReac Type Severity Reaction Status Date / Time linaclotide [From Linzess] Allergy Mild chest Verified 03/22/23 09:12 tightness histamine phosphate Allergy Unknown Verified 03/22/23 09:12 [From Histatrol] Family History Mother Heart disease Father Heart disease Brother Heart disease Surgical History H/O colonoscopy with polypectomy History of hip surgery History of knee replacement History of tonsillectomy and adenoidectomy History of tubal ligation Hx of surgical procedure Social History household members: spouse Smoking Status: Never smoker alcohol intake: never substance use type: does not use what type of physical activity do you participate in: walking frequency: 1-2 times per week ROS ROS Narrative Constitutional: Reports fatigue and weakness. No fever. Obesity HEENT: Reports systems reviewed and no addt'l complaints, except as documented Respiratory/Chest: No acute shortness of breath or respiratory distress or wheezing. CVS: No chest pain pressure or tightness. No history of NV/arrhythmia or CHF Gastrointestinal: Denies coffee ground emesis, hematemesis or vomiting Genitourinary: Daly catheter. Denies burning urination or new urinary tract symptoms Musculoskeletal: Left hip surgery. Chronic degenerative arthritis Neurologic: Denies seizure-like symptoms. skin: No ulcer. No rash Endocrinology: Reports systems reviewed and no addt'l complaints, except as documented Hematologic/Lymphatic: Reports systems reviewed and no addt'l complaints, except as documented Rest 14 ROS are negative except as mentioned in HPI Physical Exam Narrative General: Alert, Oriented x3, Cooperative, BMI 30.5 kg/m?. HEENT: Atraumatic, PERRLA, EOMI, Normocephalic Oral: Oral mucosa moist. No Gingival or Mucosal Lesions/ Ulcerations Neck: Supple, No JVD, Negative Carotid Bruits Lungs: Air entry diminished in bilateral lung bases. No crepitation/rhonchi Cardiovascular: Regular rate, Regular Rhythm, Normal S1, Normal S2, No murmurs Abdomen: Bowel Sounds Present, Soft, Non Tender, Non-Distended : No renal angle tenderness. No suprapubic tenderness. Extremities: No edema, Capillary Refill Less than 3 Seconds Skin: No rashes, No breakdown Musculoskeletal: Left hip surgical dressing is dry. Mild tenderness. No acute tenderness to Palpation of other joints or Extremities Neurological: Cranial nerves II-XII grossly intact, DTR 2+/4. No acute focal neurological deficit. Psych/Mental Status: Flat affect. Lab / Micro Data 04/13/23 07:10 04/13/23 07:10 Labs: Laboratory Results - last 24 hr 04/13/23 07:10: WBC 27.2 H, RBC 3.14 L, Hgb 9.4 L, Hct 31.1 L, MCV 99.0, MCH 29.9, MCHC 30.2 L, RDW Std Deviation 48.8 H, RDW Coeff of Edwar 13.6, Plt Count 143 L, MPV 11.3, Sodium 137, Potassium 4.0, Chloride 105, Carbon Dioxide 28.0, Anion Gap 4 L, BUN 14, Creatinine 0.82, Estim Creat Clear Calc 49.79, Est GFR (MDRD) Af Amer 87, Est GFR (MDRD) Non-Af 72, BUN/Creatinine Ratio 17.0, Glucose 111 H, Calcium 8.5 Micro: Microbiology 04/12/23 10:30 Tissue - Hip Femoral Membrane Wound Culture - Preliminary No growth-Final to follow 04/12/23 10:25 Tissue - Hip Femoral Membrane Wound Culture - Preliminary No growth-Final to follow 04/12/23 10:17 Tissue - Hip Wound Culture - Preliminary No growth-Final to follow Imagaing Radiology Impression Hip X-Ray 04/12/23 12:25 IMPRESSION: Placement of ReVision left total hip arthroplasty without complications. Electronically Signed: Pacheco Mota MD at 13:18 EST , Charges/Coding Visit Charges Office Visits / Consults: 86560 IP Consult L4 Procedures Hospitalists Procedures: 39523 Advncd Care Plan 30 Min
[2023-04-13] MEDS: oxyCODONE 5 MG Tablet PO ×2 (14:01→21:33)
[2023-04-13] MEDS: Sodium Ferric Gluconat/Sucrose 250 MG in 0.9% Normal Saline (250mL Bag) 250 ML 135 MG IV (15:18)
[2023-04-13] MEDS: Ascorbic Acid 500 MG Tablet PO (17:27)
[2023-04-13] MEDS: OLANZapine 2.5 MG Tablet 7.5 MG PO (21:33)
[2023-04-13] MEDS: Pravastatin 40 MG Tablet PO (21:34)
[2023-04-14] VITALS (8 sets, daily range): BP systolic 99–119; BP diastolic 47–63; PULSE 64–112; RESP 16–17; TEMP 36.4–37.2; O2SAT 96–98
[2023-04-14] MEDS: Carbidopa/Levodopa 25/100 Tablet PO ×3 (06:06→16:11)
[2023-04-14] MEDS: Acetaminophen 500 MG Tablet 1000 MG PO ×3 (06:06→21:16)
[2023-04-14] MEDS: Nystatin Powder 15gm Bottle 1 APPLIC TOPICAL ×3 (06:17→21:15)
[2023-04-14] MEDS: Levothyroxine 75 MCG Tablet PO (06:18)
[2023-04-14 06:52] LABS: Hematocrit 29.8 % (37-47); Hemoglobin 9.3 g/dL (12.0-15.0); Mean Corp Hgb Conc 31.2 g/dL (32-36); Mean Corpuscular Hgb 30.5 pg (27.0-32.0); Mean Corpuscular Volume 97.7 fL (81-99); Mean Platelet Vol. 11.3 fl (6.2-12.0); Platelet Count 117 K/mm3 (150-450); RBC Distribution Width CV 13.5 % (11.6-14.6); RBC Distribution Width SD 48.6 fl (35.1-43.9); Red Blood Count 3.05 M/mm3 (4.2-5.4); White Blood Count 15.2 K/mm3 (4.4-11.0)
[2023-04-14 07:25] LABS: Anion Gap 2 (5-15); BUN 11 mg/dL (7-18); BUN/Creat Ratio 15.5 RATIO (10-20); Calcium,Total 8.5 mg/dL (8.5-10.1); Chloride 109 mmol/L (98-107); Creatinine, Serum 0.71 mg/dL (0.55-1.02); EST Glomerular Filtration Rate 85 mL/min (>60); Est Glom Filt Rate - Afr Amer 103 mL/min (>60); Estimated Creatinine Clearance 40.83 ml/min; Glucose 100 mg/dL (74-106); Sodium Level 139 mmol/L (136-145)
[2023-04-14] MEDS: Citalopram 20 MG Tablet PO (08:00)
[2023-04-14] MEDS: Cholecalciferol (VIT D3) 25 MCG TABLET (1,000 UNITS) PO (08:00)
[2023-04-14] MEDS: Doxycycline 100 MG CAPSULE PO ×2 (08:00→21:14)
[2023-04-14] MEDS: Ascorbic Acid 500 MG Tablet PO ×2 (08:01→16:12)
[2023-04-14] MEDS: Senna/Docusate Sodium 1 Tablet 2 TABLET PO ×2 (08:01→21:15)
[2023-04-14] MEDS: Famotidine 20 MG Tablet PO (08:01)
[2023-04-14] MEDS: Pantoprazole Sodium 40 MG Tablet PO (08:01)
[2023-04-14] MEDS: Ursodiol 250 MG Tablet PO ×2 (08:02→21:16)
[2023-04-14] MEDS: terbinafine HCL 250 MG TABLET PO (08:02)
[2023-04-14] MEDS: Potassium Chloride Oral Tablet 20 MEQ PO ×2 (08:04→16:11)
--- NOTE | 2023-04-14 09:57 | PCM.PN.ORT ---
Subjective Subjective Patient doing well overall. Remains generally comfortable. Awaiting physical therapy today. Will likely need placement. No chest pain or shortness of breath. No complaints of lightheadedness today. Objective Data Objective Data Vital Signs: Vital Signs Temp Pulse Resp BP Pulse Ox O2 Del Method O2 Flow Rate 97.8 F 64 17 99/50 L 96 Nasal Cannula 2 04/14/23 07:56 04/14/23 07:56 04/14/23 07:56 04/14/23 07:56 04/14/23 09:55 04/14/23 09:55 04/14/23 09:55 Oxygen Flow Rate (L/min) 2 Oxygen Delivery Method Nasal Cannula Weight: 172 lb 6.4 oz Body Mass Index (BMI) 30.5 Intake & Output: Intake and Output for Last 24 Hours 04/12/23 04/13/23 04/14/23 23:59 23:59 23:59 Intake Total 2732 / 3232 940 / 940 Output Total 925 / 1325 2050 / 3650 2200 / 2200 Balance 1807 / 1907 -1110 / -2710 -2200 / -2200 Lab / Micro Data Attestation: I reviewed the patient's lab results. 04/14/23 06:30 04/14/23 06:30 Labs: Laboratory Results - last 24 hr 04/14/23 06:30: WBC 15.2 H, RBC 3.05 L, Hgb 9.3 L, Hct 29.8 L, MCV 97.7, MCH 30.5, MCHC 31.2 L, RDW Std Deviation 48.6 H, RDW Coeff of Edwar 13.5, Plt Count 117 L, MPV 11.3, Sodium 139, Potassium 4.0, Chloride 109 H, Carbon Dioxide 28.0, Anion Gap 2 L, BUN 11, Creatinine 0.71, Estim Creat Clear Calc 40.83, Est GFR (MDRD) Af Amer 103, Est GFR (MDRD) Non-Af 85, BUN/Creatinine Ratio 15.5, Glucose 100, Calcium 8.5 Micro: Microbiology 04/12/23 10:25 Tissue - Hip Femoral Membrane Gram Stain - Final 04/12/23 10:25 Tissue - Hip Femoral Membrane Wound Culture - Preliminary No growth-Final to follow 04/12/23 10:25 Tissue - Hip Femoral Membrane Anaerobic Culture - Preliminary No growth in 48 hours. 04/12/23 10:30 Tissue - Hip Femoral Membrane Gram Stain - Final 04/12/23 10:30 Tissue - Hip Femoral Membrane Wound Culture - Preliminary No growth-Final to follow 04/12/23 10:30 Tissue - Hip Femoral Membrane Anaerobic Culture - Preliminary No growth in 48 hours. 04/12/23 10:17 Tissue - Hip Gram Stain - Final 04/12/23 10:17 Tissue - Hip Wound Culture - Preliminary No growth-Final to follow 04/12/23 10:17 Tissue - Hip Anaerobic Culture - Preliminary No growth in 48 hours. 03/21/23 13:36 Swab (Method) Nasal Screen MRSA/MSSA - Final Physical Exam Const alert, oriented x3 and well nourished General Appearance: cooperative and comfortable Resp normal respiratory effort Extremity Extremity Narrative: Left lower extremity: Dressing is clean dry and intact Sensations intact to light touch saphenous, sural, superficial peroneal, deep peroneal, and tibial distributions Motors intact EHL, DF, PF calves are soft and supple thigh is soft and supple Assessment & Plan Assessment/Plan (1) History of revision of total replacement of left hip joint: PLAN: Postop day 2 revision left total replacement with removal of antibiotic spacer. Patient does have a history of failed intertrochanteric hip fracture in relation to infection. Cultures have all been negative. Preoperative workup prior to this surgery was not consistent with can continued infectious etiology. 1. DVT prophylaxis: Eliquis. 2.5 mg p.o. twice daily 2. Pain control: Will continue on current regimen patient tolerating well. 3. Lightheadedness: Appreciate medicine consultation on this complex patient. Patient doing well today. 4. Anemia: Hemoglobin 9.3 stable from yesterday. 5. Therapy: Patient is weightbearing as tolerated. Posterior hip precautions. Patient has limited abductor function from intraoperative findings in relation to previous surgeries and intertrochanteric hip fracture which failed to heal. Will need walker. I discussed the patient she will likely need walker or cane chronically due to the lack of abductor function. 6. Reactive leukocytosis. Forgot to mention this in yesterday's note. Resolving daily. Disposition: Patient willneed discharge to rehab or transitional care/shelter facility in relation to her chronic wasting related to the antibiotic spacer subsidence and inability to bear weight on that left hip for multiple months now as well as her Parkinson disease. Additionally she will need to have training for her abductor dysfunction. Have discussed with social work today. Awaiting today's physical therapy recommendations. Patient will be discharged on doxycycline for 2 weeks as we follow cultures. Current cultures also no growth. [facility] Office:
[2023-04-14] MEDS: APIXABAN 2.5 MG TABLET (WCH) PO ×2 (10:14→21:15)
--- NOTE | 2023-04-14 11:25 | CASEMGMT ---
Discharge Planning A list of?SNF providers including quality and resource use data and consistent with the patient's preferred geographic region, medical needs, and insurance network was created in CarePort Guide.? This list was provided to the RN MIHIR. Domenica Santos, Discharge Planning Asst.
[2023-04-14] MEDS: Ferrous Sulfate 325 MG Tablet PO (12:00)
--- NOTE | 2023-04-14 13:00 | CASEMGMT ---
Care Management - Initial Assessment Face to Face with patient for initial transition planning/care coordination assessment.? This director underwriter sales introduced self and role at [facility]. Patient lying in bed, alert and oriented. Patient willing to participate in assessment and is able to answer all questions appropriately.? Care providers, pharmacy, and demographics verified. Admitting Diagnosis: revision of total replacement of left hip joint Other diagnosis history:? History of Parkinsons, rheumatoid arthritis, hypothyroidism PCP: Dr. Herrmann Specialists: Dr. Frances Preferred Pharmacy: [facility] Insurance: [employer] Medicare PPO (states to be switching in May to ?[place] [employer]?) Prescription Benefit:? Yes, ?some.? Living Will/HPOA: ?Reports is POAHC, but daughter also helps with a lot of things. LNOK: Yonny, daughter Vaishnavi Curry ([phone]) Living Arrangements: ?With , daughter, son-in-law, a grandson, and a granddaughter.?? Home is one floor, there is a basement where the laundry is located.? Daughter helps with the laundry and medication setup; helps with meals and transportation.?? Daughter and MIREYA help patient transfer in the bathroom when needed.?? Transportation: ? DME/HHC: tub bench, weights, forward wheeled walker, rails and grab bars, ramped entrance; plans to get a medical alert with the new insurance; States was set up with [employer], but unsure which company, when leaving the SNF this year.? States doesn?t really use it anymore, and belief that it has been transferred to the ?s name as is using this.? Community Resources:? History of [facility] this year.? Reports does not want to go back; states got bedsores and healed better at home.??? Reports had HHC after the SNF for nursing and therapy.?? Patient goals: Patient wishes to go to [facility] TCU or to home with family assist.?? Provided patient with Careport list of SNF choices located in geographical region and in the patient?s insurance network, covering Medicare star and quality data.? Patient reports only wants to go to TCU and reports belief that PCP was going to save patient a bed.? Educated that TCU is full right now, and there are no planned discharges, so if SNF is needed would need to look at an alternative choice.??? Patient reports to want to go home.??? Patient okay with SW calling the patient?s daughter to try to clear up about the Home O2 and HHC providers, as well as discuss discharge plans.?? Called the patient?s daughter and left message to call this director underwriter sales.?? Updated RN MIHIR Darlin to assessment finding and undetermined discharge plan.? Plan: ?SNF LOC versus Home with HHC and family assist.? LEONORA and JOSE ASH remain available to assist as needed for discharge planning. ALBINO Man
--- NOTE | 2023-04-14 13:24 | CASEMGMT ---
Addendum entered by Darlin Lopez 04/14/23 16:46: Received notification pt orders are 3L cont of oxygen. Green sheet on chart for order to be faxed should pt need greater than this on dc. Pt will need a portable tank to go home on. Addendum entered by Darlin Lopez 04/14/23 16:40: JOSE ASH into pt room, pt states she had oxygen but she does not now. She believes it was trf'd into her 's name and he wears it. She states she does not have portable tanks. Pt would like the same company should she need oxygen. Email to [employer] to verify oxygen rx or if switched to 's name. Addendum entered by Darlin Lopez 04/14/23 16:24: TC to [facility], spoke with Cheli, they are able to accept pt for SOC next week. They will reach out to pt to make aware of day and time. JOSE ASH into pt room, pt and family made aware of this information. They are agreeable to this plan. They deny further needs. They are aware that [facility] will reach out to her next week. Addendum entered by Darlin Lopez 04/14/23 16:09: JOSE ASH into pt room, spoke with therapy who states pt did better today. Pt dtr expresses frustration that pt cannot go to [facility]. Pt does want [facility] to see her again. DC assistant store manager operations to send referral. Addendum entered by Darlin Lopez 04/14/23 15:21: JOSE ASH into pt room, pt dtr and in the room. They would like to see how pt does with therapy and how much assistance she requires before agreeing to go home with [facility]. Pt dtr states they were providing total care for pt and using a moise at home. She reports having DME. Pt states she would like [facility] again and declines the need for a list of other options. TC to therapy, they will work with her shortly while family in the room. JOSE ASH to check back. Original Note: TC to [facility] to see if they are active with pt for [facility]. Pt was dc'd on Mar.29 from their services.
--- NOTE | 2023-04-14 14:12 | PCM.PN.HOSP ---
Reason for Visit Reason for Visit: Diagnoses Acute posthemorrhagic anemia (04/12/23) Encounter for other preprocedural examination (04/12/23) Presence of left artificial hip joint (04/12/23) Objective Data Objective Data Vital Signs: Vital Signs Temp Pulse Resp BP Pulse Ox O2 Del Method O2 Flow Rate 97.6 F L 92 16 104/47 L 96 Room Air 2 04/14/23 10:08 04/14/23 10:08 04/14/23 10:08 04/14/23 10:08 04/14/23 10:08 04/14/23 10:08 04/14/23 09:55 Oxygen Flow Rate (L/min) 2 Oxygen Delivery Method Room Air Weight: 172 lb 6.4 oz Body Mass Index (BMI) 30.5 Intake & Output: Intake and Output for Last 24 Hours 04/12/23 04/13/23 04/14/23 23:59 23:59 23:59 Intake Total 2732 / 3232 940 / 940 Output Total 925 / 1325 2050 / 3650 2200 / 2200 Balance 1807 / 1907 -1110 / -2710 -2200 / -2200 Lab / Micro Data 04/14/23 06:30 04/14/23 06:30 Labs: Laboratory Results - last 24 hr 04/14/23 06:30: WBC 15.2 H, RBC 3.05 L, Hgb 9.3 L, Hct 29.8 L, MCV 97.7, MCH 30.5, MCHC 31.2 L, RDW Std Deviation 48.6 H, RDW Coeff of Edwra 13.5, Plt Count 117 L, MPV 11.3, Sodium 139, Potassium 4.0, Chloride 109 H, Carbon Dioxide 28.0, Anion Gap 2 L, BUN 11, Creatinine 0.71, Estim Creat Clear Calc 40.83, Est GFR (MDRD) Af Amer 103, Est GFR (MDRD) Non-Af 85, BUN/Creatinine Ratio 15.5, Glucose 100, Calcium 8.5 Micro: Microbiology 04/12/23 10:25 Tissue - Hip Femoral Membrane Gram Stain - Final 04/12/23 10:25 Tissue - Hip Femoral Membrane Wound Culture - Preliminary No growth-Final to follow 04/12/23 10:25 Tissue - Hip Femoral Membrane Anaerobic Culture - Preliminary No growth in 48 hours. 11/22/23 10:30 Tissue - Hip Femoral Membrane Gram Stain - Final 04/12/23 10:30 Tissue - Hip Femoral Membrane Wound Culture - Preliminary No growth-Final to follow 04/12/23 10:30 Tissue - Hip Femoral Membrane Anaerobic Culture - Preliminary No growth in 48 hours. 04/12/23 10:17 Tissue - Hip Gram Stain - Final 04/12/23 10:17 Tissue - Hip Wound Culture - Preliminary No growth-Final to follow 04/12/23 10:17 Tissue - Hip Anaerobic Culture - Preliminary No growth in 48 hours. 03/21/23 13:36 Swab (Method) Nasal Screen MRSA/MSSA - Final Physical Exam Narrative Seen and examined. Patient started moving his small bowel. Urinating/voiding spontaneously. No acute issues overnight. Physical exam: General: Alert, Oriented x3, Cooperative, BMI 30.5 kg/m?. HEENT: Atraumatic, PERRLA, EOMI, Normocephalic Oral: Oral mucosa moist. No Gingival or Mucosal Lesions/ Ulcerations Neck: Supple, No JVD, Negative Carotid Bruits Lungs: Air entry diminished in bilateral lung bases. No crepitation/rhonchi Cardiovascular: Regular rate, Regular Rhythm, Normal S1, Normal S2, No murmurs Abdomen: Bowel Sounds Present, Soft, Non Tender, Non-Distended : No renal angle tenderness. No suprapubic tenderness. Extremities: No edema, Capillary Refill Less than 3 Seconds Skin: No rashes, No breakdown Musculoskeletal: Left hip surgical dressing is dry and intact with no bloody stain. No hematoma. No acute tenderness to Palpation of other joints or Extremities Neurological: Cranial nerves II-XII grossly intact, DTR 2+/4. No acute focal neurological deficit. Psych/Mental Status: Flat affect. Assessment & Plan Assessment/Plan (1) Acute blood loss anemia: (2) History of revision of total replacement of left hip joint: PLAN: Plan 1. Previous failed left hip nail with infection: Patient had previous left hip cephalomedullary nailing on September 14, 2022 with infection that required antibiotic spacer and now conversion to hemiarthroplasty, removal of antibiotic spacer on 03/23/2023. Patient was out of bed with physical therapy. No acute chest pain or shortness of breath. No numbness or tingling. Patient has Daly catheter clear urine. Advised Daly catheter drain removal tomorrow. H&H 9.4/31.1%. Platelet count 143,000. Electrolytes reviewed and in normal range. BUNs/creatinine 14/0.82. Glucose 111. Tissue culture no growth so far. Eliquis 2.5 mg twice daily as DVT prophylaxis. Pain control PT and OT. 04/14: Continue PT and OT. Incentive spirometry. Bowel and bladder care. 2. Acute blood loss, postoperative:Preoperatively her hemoglobin 14.0 dropped to 9.4 after surgery. Monitor H&H/CBC daily. On ferrous sulfate and vitamin C added. Patient had history of DIC in previous admission in November 2022 and required 5 units of FFP but that resolved. Mild thrombocytopenia. Previous platelet count from November to February 2023 has been normal more than 150,000. 04/14: H&H 9.3/29.8%. Continue iron sulfate 3. Chronic Parkinson's disease: Continue carbidopa levodopa. 4. History of rheumatoid arthritis: 5. Hypothyroidism 6. Dyslipidemia 7. Other comorbidities include GERD and depression: Continue citalopram olanzapine and PPI. Living will/advanced directive/end of life care: Patient does have living will or advanced directive. Her is power of family law attorney for health after discussion of benefits/risks procedures involved with full code, DNR CC arrest and DNR CC, the patient opted for DNRCC arrest with no intubation Patient doesn't want artificial life support including intubation, tube feed, ventilator and/chest compression, central venous catheter, vasopressor and DC shock if needed Total time spent in [id number] encounter in discussion of advanced directive 17 minutes. Charges/Coding Visit Charges Inpatient E&M: 25872 Subs Hosp L2
--- NOTE | 2023-04-14 16:15 | CASEMGMT ---
Discharge Planning HH referral sent to [facility] via [facility]. Domenica Santos, Discharge Planning Asst.
[2023-04-14] MEDS: Pravastatin 40 MG Tablet PO (21:15)
[2023-04-14] MEDS: OLANZapine 2.5 MG Tablet 7.5 MG PO (21:16)
[2023-04-15 03:10] VITALS: BP 113/63; PULSE 84; RESP 16; TEMP 37; O2SAT 98
[2023-04-15] MEDS: Levothyroxine 75 MCG Tablet PO (06:12)
[2023-04-15] MEDS: Carbidopa/Levodopa 25/100 Tablet PO ×2 (06:12→12:03)
[2023-04-15] MEDS: Nystatin Powder 15gm Bottle 1 APPLIC TOPICAL (06:12)
[2023-04-15] MEDS: Acetaminophen 500 MG Tablet 1000 MG PO (06:12)
[2023-04-15 07:40] VITALS: O2SAT 93
[2023-04-15 08:08] VITALS: BP 107/65; PULSE 80; RESP 16; TEMP 36.6; O2SAT 94
[2023-04-15] MEDS: Ensure Surgery 237 ML LIQUID PO (08:19)
[2023-04-15] MEDS: Ascorbic Acid 500 MG Tablet PO (08:19)
[2023-04-15] MEDS: Cholecalciferol (VIT D3) 25 MCG TABLET (1,000 UNITS) PO (08:19)
[2023-04-15] MEDS: Potassium Chloride Oral Tablet 20 MEQ PO (08:19)
[2023-04-15] MEDS: Citalopram 20 MG Tablet PO (09:50)
[2023-04-15] MEDS: Famotidine 20 MG Tablet PO (09:51)
[2023-04-15] MEDS: Doxycycline 100 MG CAPSULE PO (09:51)
[2023-04-15] MEDS: APIXABAN 2.5 MG TABLET (WCH) PO (09:51)
[2023-04-15] MEDS: Pantoprazole Sodium 40 MG Tablet PO (09:52)
[2023-04-15] MEDS: Senna/Docusate Sodium 1 Tablet 2 TABLET PO (09:52)
[2023-04-15] MEDS: Ursodiol 250 MG Tablet PO (09:54)
[2023-04-15] MEDS: terbinafine HCL 250 MG TABLET PO (09:54)
--- NOTE | 2023-04-15 10:18 | PN.ORTHO_ITS ---
Subjective Subjective Patient doing well overall. Social work worked with the patient yesterday as well as the family plan is to be discharged home. Family does have significant resources in relation to patient's previous antibiotic spacer with limitations on weightbearing. Based on yesterday's performance with physical therapy family felt comfortable taking the patient home. Patient is set up for home health care that should be out next week for initial assessment. I spoke at length the patient about her plans which she discussed social work yesterday. The plan is for discharge today to begin home health care next week. Daughter and were involved in decision making based on social work notes which were reviewed. Objective Data Objective Data Vital Signs: Vital Signs Temp Pulse Resp BP Pulse Ox O2 Del Method O2 Flow Rate 97.9 F 80 16 107/65 94 Room Air 2 04/15/23 08:08 04/15/23 08:08 04/15/23 08:08 04/15/23 08:08 04/15/23 08:08 04/15/23 08:08 04/15/23 03:10 Oxygen Flow Rate (L/min) 2 Oxygen Delivery Method Room Air Weight: 172 lb 6.4 oz Body Mass Index (BMI) 30.5 Intake & Output: Intake and Output for Last 24 Hours 04/13/23 04/14/23 04/15/23 23:59 23:59 23:59 Intake Total 940 / 940 400 / 400 Output Total 2050 / 3650 2800 / 2800 300 / 300 Balance -1110 / -2710 -2800 / -2600 100 / 100 Lab / Micro Data Attestation: I reviewed the patient's lab results. 04/14/23 06:30 04/14/23 06:30 Micro: Microbiology 04/12/23 10:25 Tissue - Hip Femoral Membrane Gram Stain - Final 04/12/23 10:25 Tissue - Hip Femoral Membrane Wound Culture - Preliminary No growth-Final to follow 04/12/23 10:25 Tissue - Hip Femoral Membrane Anaerobic Culture - Preliminary No growth in 48 hours. 04/12/23 10:30 Tissue - Hip Femoral Membrane Gram Stain - Final 04/12/23 10:30 Tissue - Hip Femoral Membrane Wound Culture - Preliminary No growth-Final to follow 04/12/23 10:30 Tissue - Hip Femoral Membrane Anaerobic Culture - Preliminary No growth in 48 hours. 04/12/23 10:17 Tissue - Hip Gram Stain - Final 04/12/23 10:17 Tissue - Hip Wound Culture - Preliminary No growth-Final to follow 04/12/23 10:17 Tissue - Hip Anaerobic Culture - Preliminary No growth in 48 hours. 03/21/23 13:36 Swab (Method) Nasal Screen MRSA/MSSA - Final Physical Exam Const alert, oriented x3 and no apparent distress General Appearance: cooperative and comfortable Resp normal respiratory effort Extremity Extremity Narrative: Left lower extremity: Dressing is clean dry and intact Sensations intact to light touch saphenous, sural, superficial peroneal, deep peroneal, and tibial distributions Motors intact EHL, DF, PF calves are soft and supple Assessment & Plan Assessment/Plan (1) History of revision of total replacement of left hip joint: PLAN: Postop day 3 revision left total replacement with removal of antibiotic spacer. Patient does have a history of failed intertrochanteric hip fracture in relation to infection. Cultures have all been negative. Preoperative workup prior to this surgery was not consistent with can continued infectious etiology. 1. DVT prophylaxis: Eliquis. 2.5 mg p.o. twice daily 2. Pain control: Will continue on current regimen patient tolerating well. 3. Lightheadedness: Currently resolved. 4. Anemia: Stable. Vital signs stable. Continue with ferrous sulfate 5. Therapy: Patient is weightbearing as tolerated. Posterior hip precautions. Patient has limited abductor function from intraoperative findings in relation to previous surgeries and intertrochanteric hip fracture which failed to heal. Will need walker. I discussed the patient she will likely need walker or cane chronically due to the lack of abductor function. Patient participated well with therapy with family present. At this time all parties feel comfortable with discharge to home with home health care based on previous needed the patient which should be decreased postoperatively. 6. Reactive leukocytosis. Forgot to mention this in yesterday's note. Resolving daily. 7. Periprosthetic joint infection: Current cultures are negative from removal of antibiotic spacer. Will continue on oral antibiotics for 2 weeks postoperatively as we follow cultures Disposition: Patient has been assessed by physical therapy as well as family and social work. All parties agree on proceeding with discharge to home with home health care based on patient's significant preoperative immobility her overall mobility has improved after surgery due to the ability to bear weight at this time. Did discuss with the patient her postoperative pain regimen and DVT prophylaxis. Patient demonstrated understanding. Patient will also be discharged with oxygen currently she is on room air. [facility] Office:
--- NOTE | 2023-04-15 10:22 | DCINST_ITS ---
Discharge Instructions Diet Discharge Diet: No restrictions Activity Discharge Activity: May Not Drive (while taking narcotic pain medications.) May shower in (days): 1 (only if incision is dry and without drainage. Do NOT soak/submerge in tub/pool/vazquez/stream/hot tub.) May resume sexual activity in: 6-8 weeks Ice area for (Minutes): 20 Weight Bearing Status: Weight bearing as tolerated Additional Activity Instructions:: Wear elastic stockings for 2 weeks. DO NOT use alcohol with narcotic pain medication. DO NOT make important decisions while taking narcotic medication. If you have problems with taking your medication (rash, itching, nausea, etc.) call the office at once. Dressing / Incision Call your doctor if your incision/area has: Increased Pain/ Swelling, Increased Redness and Foul Smelling Discharge Call your doctor if you observe: Fever of 101 or Higher Suture Line Care: Avoid Pulling/Pushing Remove Dressing in: 2 days (April 17, 2023) Cleanse incision/area with: Soap & Water (Do not scrub vigorously) Additional Dressing/Incision Instructions:: If incision is clean dry and intact may leave the wound open to air and continue showering. If there is continued drainage continue daily dry dressing changes and keep incision clean dry and intact until there is no drainage. Follow Up Care Please Follow Up With: Ramesh Mack PA-C When: April 27, 2023 at 3:15 PM Test Results: Test results from this visit will be discussed in further detail at your follow- up appointment, if applicable. Discharge Plan Admission Admit Date/Time: 04/12/23 05:44 Attending Provider: Jorge Frances Primary Care Provider: Raji Herrmann [employer] Providers: Ramesh Mack; Bill Brock Discharge Orders/Prescriptions Prescriptions: No Action pravastatin 40 MG tablet 40 mg PO QHS citalopram 40 mg tablet 20 mg PO DAILY Patient Comments: confirmed with daughter pt is taking 20 mg. olanzapine 7.5 mg tablet 7.5 mg PO QHS potassium chloride 20 mEq tablet,ER particles/crystals 20 meq PO BID levothyroxine 75 mcg tablet 75 mcg PO DAILY carbidopa-levodopa 25-100 mg tablet 1 tab PO TID omeprazole 40 mg capsule,delayed release(DR/EC) 40 mg PO DAILY acetaminophen 500 mg Tablet 1,000 mg PO Q6H PRN PRN (Reason: Pain Score 1-3) Qty: 0 0RF ferrous sulfate 325 mg (65 mg iron) tablet 325 mg PO DAILY Patient Comments: Take 1 tablet by mouth every morning ursodiol 250 mg Tablet 250 mg PO BID Qty: 60 0RF cholecalciferol (vitamin D3) [Vitamin D3] 25 mcg (1,000 unit) capsule 25 mcg PO DAILY Fiber Therapy(psyl seed-sugar) Powder 1 tbsp PO DAILY docusate sodium [DOK] 100 mg capsule 100 mg PO PRN albuterol sulfate 90 mcg/actuation HFA aerosol inhaler 2 inh INHALATION Q6H PRN (Reason: shortness of breath or wheezing) Patient Comments: INHALE 2 PUFFS BY MOUTH SIX TIMES DAILY NEEDED FOR SHORTNESS OF BREATH terbinafine HCl 250 mg tablet 250 mg PO DAILY Ensure Plus High Protein 0.08 gram-1.5 kcal/mL Liquid 120 ml PO DAILY Referrals / Follow Up: Raji Herrmann Chi, MD [Primary Care Provider] - Disposition Disposition (needs filled in before D/C Order can be placed): Home Health Service
--- NOTE | 2023-04-15 10:25 | PCM.DC.SUM ---
Providers Date of Admission: 04/12/23 Primary Care Physician: Dr. Raji Herrmann MD Consultations 04/13/23 09:26 Consult: Hospitalist Routine Consulting Provider: Bill Brock Reason for Consult: post op med management EMERGENT Consult: No MD Notified: Yes Date Notified: 04/13/23 Time Notified: 10:42 Method of Notification: Verbal Reason For Visit: Total Hip Relacement Revision CONVE Diagnosis Discharge Diagnosis (1) History of revision of total replacement of left hip joint: Status: Acute Code(s): Z96.642 - Presence of left artificial hip joint Plan: Postop day 3 revision left total replacement with removal of antibiotic spacer. Patient does have a history of failed intertrochanteric hip fracture in relation to infection. Cultures have all been negative. Preoperative workup prior to this surgery was not consistent with can continued infectious etiology. 1. DVT prophylaxis: Eliquis. 2.5 mg p.o. twice daily 2. Pain control: Will continue on current regimen patient tolerating well. 3. Lightheadedness: Currently resolved. 4. Anemia: Stable. Vital signs stable. Continue with ferrous sulfate 5. Therapy: Patient is weightbearing as tolerated. Posterior hip precautions. Patient has limited abductor function from intraoperative findings in relation to previous surgeries and intertrochanteric hip fracture which failed to heal. Will need walker. I discussed the patient she will likely need walker or cane chronically due to the lack of abductor function. Patient participated well with therapy with family present. At this time all parties feel comfortable with discharge to home with home health care based on previous needed the patient which should be decreased postoperatively. 6. Reactive leukocytosis. Forgot to mention this in yesterday's note. Resolving daily. 7. Periprosthetic joint infection: Current cultures are negative from removal of antibiotic spacer. Will continue on oral antibiotics for 2 weeks postoperatively as we follow cultures Disposition: Patient has been assessed by physical therapy as well as family and social work. All parties agree on proceeding with discharge to home with home health care based on patient's significant preoperative immobility her overall mobility has improved after surgery due to the ability to bear weight at this time. Did discuss with the patient her postoperative pain regimen and DVT prophylaxis. Patient demonstrated understanding. Patient will also be discharged with oxygen currently she is on room air. [facility] Office: Medications at Discharge Home Medications pravastatin 40 mg tablet 40 mg PO QHS CHOLESTEROL 03/22/17 carbidopa 25 mg-levodopa 100 mg tablet 1 tab PO TID parkinsons 09/13/22 citalopram 40 mg tablet 20 mg PO DAILY DEPRESSION 09/13/22 levothyroxine 75 mcg tablet 75 mcg PO DAILY THYROID 09/13/22 olanzapine 7.5 mg tablet 7.5 mg PO QHS MOOD 09/13/22 omeprazole 40 mg capsule,delayed release 40 mg PO DAILY ACID REFLUX 09/13/22 potassium chloride 20 mEq tablet,extended release(part/cryst) 20 meq PO BID SUPPLEMENT 09/13/22 ferrous sulfate 325 mg (65 mg iron) tablet 325 mg PO DAILY supplimentation 11/24/22 ursodiol 250 mg tablet 250 mg PO BID URINATION #60 tabs 12/01/22 albuterol sulfate 90 mcg/actuation aerosol inhaler 2 inh inhalation Q6H PRN shortness of breath or wheezing 03/22/23 cholecalciferol (vitamin D3) 25 mcg (1,000 unit) capsule (Vitamin D3) 25 mcg PO DAILY SUPPLEMENT 03/22/23 docusate sodium 100 mg capsule (DOK) 100 mg PO PRN STOOL SOFTENER 03/22/23 food supplemt, lactose-reduced 0.08 gram-1.5 kcal/mL oral liquid (Ensure Plus High Protein) 120 ml PO DAILY SUPPLEMENT 03/22/23 psyllium seed (sugar) oral powder (Fiber Therapy (psyllium seed-sucrose) oral powder) 1 tbsp PO DAILY SUPPLEMENT 03/22/23 terbinafine HCl 250 mg tablet 250 mg PO DAILY TOE FUNGUS 03/22/23 acetaminophen 500 mg tablet 1,000 mg (2 x 500 mg) PO Q8 #0 tabs 04/15/23 apixaban 5 mg tablet (Eliquis) 2.5 mg (1/2 x 5 mg) PO BID 12 days #12 tabs 04/15/23 doxycycline monohydrate 100 mg capsule 100 mg PO BID 12 days #24 caps 04/15/23 famotidine 20 mg tablet 20 mg PO DAILY 30 days #30 tabs 04/15/23 ondansetron 4 mg disintegrating tablet 4 mg PO Q8H PRN nausea and vomiting #20 tabs 04/15/23 oxycodone 5 mg tablet 5 - 10 mg (1 - 2 x 5 mg) PO Q4H PRN PRN Pain Score 4-10 5 days #42 tabs 04/15/23 sennosides 8.6 mg-docusate sodium 50 mg tablet (Stool Softener-Stimulant Laxative) 2 tab PO BID 5 days #20 tabs 04/15/23 Hospital Course Operations - (Removal antibiotic spacer, revision left partial hip replacement) Summary of Care Provided Minutes Spent on Discharge: 30 Hospital Course: Patient was brought to the hospital on 04/12/2023 and admitted after removal of antibiotic spacer and placement of partial replacement on the left hip. Patient progressed uneventfully postoperatively. Cultures from surgery remain negative. Patient remained on oral antibiotics after initial 24-hour course of IV antibiotics. Patient has progressed well with physical therapy. Social work worked with the patient in order to attempt to find appropriate discharge. Ultimately with family involvement decision was made to discharge home with home health care. Patient has had poor experiences a previous senior care facilities did not wish to return to senior care facility available. Physical Exam Const alert, oriented x3 and no apparent distress Extremity Extremity Narrative: Left lower extremity: Dressing is clean dry and intact Sensations intact to light touch saphenous, sural, superficial peroneal, deep peroneal, and tibial distributions Motors intact EHL, DF, PF calves are soft and supple Weight / BMI Weight Weight: 172 lb 6.4 oz Body Mass Index (BMI) 30.5 ABG / Lab / Microbiology Data 04/14/23 06:30 04/14/23 06:30 Microbiology: Microbiology 04/12/23 10:25 Tissue - Hip Femoral Membrane Gram Stain - Final 04/12/23 10:25 Tissue - Hip Femoral Membrane Wound Culture - Preliminary No growth-Final to follow 04/12/23 10:25 Tissue - Hip Femoral Membrane Anaerobic Culture - Preliminary No growth in 48 hours. 04/12/23 10:30 Tissue - Hip Femoral Membrane Gram Stain - Final 04/12/23 10:30 Tissue - Hip Femoral Membrane Wound Culture - Preliminary No growth-Final to follow 04/12/23 10:30 Tissue - Hip Femoral Membrane Anaerobic Culture - Preliminary No growth in 48 hours. 04/12/23 10:17 Tissue - Hip Gram Stain - Final 04/12/23 10:17 Tissue - Hip Wound Culture - Preliminary No growth-Final to follow 04/12/23 10:17 Tissue - Hip Anaerobic Culture - Preliminary No growth in 48 hours. 03/21/23 13:36 Swab (Method) Nasal Screen MRSA/MSSA - Final D/C Instructions Discharge Diet: No restrictions May shower in (days): 1 (only if incision is dry and without drainage. Do NOT soak/submerge in tub/pool/vazquez/stream/hot tub.) May resume sexual activity in: 6-8 weeks Ice area for (Minutes): 20 Weight Bearing Status: Weight bearing as tolerated Additional Activity Instructions: Wear elastic stockings for 2 weeks. DO NOT use alcohol with narcotic pain medication. DO NOT make important decisions while taking narcotic medication. If you have problems with taking your medication (rash, itching, nausea, etc.) call the office at once. Call your doctor if your incision/area has: Increased Pain/ Swelling, Increased Redness and Foul Smelling Discharge Call your doctor if you observe: Fever of 101 or Higher Suture Line Care: Avoid Pulling/Pushing Cleanse incision/area with: Soap & Water (Do not scrub vigorously) Additional Dressing/Incision Instructions: If incision is clean dry and intact may leave the wound open to air and continue showering. If there is continued drainage continue daily dry dressing changes and keep incision clean dry and intact until there is no drainage. Please Follow Up With: Ramesh Mack PA-C When: April 27, 2023 at 3:15 PM Meaningful Use Info Meaningful Use Diagnoses (Choose all that apply): None applicable Discharge Plan Admission Admit Date/Time: 04/12/23 05:44 Attending Provider: Jorge Frances Primary Care Provider: Raji Herrmann [employer] Providers: Ramesh Mack; Bill Brock Discharge Orders/Prescriptions Prescriptions: New acetaminophen 500 mg Tablet 1,000 mg PO Q8 Qty: 0 0RF famotidine 20 mg Tablet 20 mg PO DAILY 30 Days Qty: 30 0RF doxycycline monohydrate 100 mg Capsule 100 mg PO BID 12 Days Qty: 24 0RF oxycodone 5 mg Tablet 5 - 10 mg PO Q4H PRN PRN (Reason: Pain Score 4-10) 5 Days Qty: 42 0RF Eliquis 5 mg Tablet 2.5 mg PO BID 12 Days Qty: 12 0RF sennosides-docusate sodium [Stool Softener-Stimulant Laxat] 8.6-50 mg Tablet 2 tab PO BID 5 Days Qty: 20 0RF ondansetron 4 mg tablet,disintegrating 4 mg PO Q8H PRN (Reason: nausea and vomiting) Qty: 20 0RF Continued pravastatin 40 MG tablet 40 mg PO QHS citalopram 40 mg tablet 20 mg PO DAILY Patient Comments: confirmed with daughter pt is taking 20 mg. olanzapine 7.5 mg tablet 7.5 mg PO QHS potassium chloride 20 mEq tablet,ER particles/crystals 20 meq PO BID levothyroxine 75 mcg tablet 75 mcg PO DAILY carbidopa-levodopa 25-100 mg tablet 1 tab PO TID omeprazole 40 mg capsule,delayed release(DR/EC) 40 mg PO DAILY ferrous sulfate 325 mg (65 mg iron) tablet 325 mg PO DAILY Patient Comments: Take 1 tablet by mouth every morning ursodiol 250 mg Tablet 250 mg PO BID Qty: 60 0RF cholecalciferol (vitamin D3) [Vitamin D3] 25 mcg (1,000 unit) capsule 25 mcg PO DAILY Fiber Therapy(psyl seed-sugar) Powder 1 tbsp PO DAILY docusate sodium [DOK] 100 mg capsule 100 mg PO PRN albuterol sulfate 90 mcg/actuation HFA aerosol inhaler 2 inh INHALATION Q6H PRN (Reason: shortness of breath or wheezing) Patient Comments: INHALE 2 PUFFS BY MOUTH SIX TIMES DAILY NEEDED FOR SHORTNESS OF BREATH terbinafine HCl 250 mg tablet 250 mg PO DAILY Ensure Plus High Protein 0.08 gram-1.5 kcal/mL Liquid 120 ml PO DAILY Discontinued acetaminophen 500 mg Tablet 1,000 mg PO Q6H PRN PRN (Reason: Pain Score 1-3) Qty: 0 0RF Referrals / Follow Up: Raji Herrmann Chi, MD [Primary Care Provider] - Disposition Disposition (needs filled in before D/C Order can be placed): Home Health Service
--- NOTE | 2023-04-15 10:45 | PCM.PN.HOSP ---
Reason for Visit Reason for Visit: Diagnoses Acute posthemorrhagic anemia (04/12/23) Other acute postprocedural pain (04/12/23) Encounter for other preprocedural examination (04/12/23) Presence of left artificial hip joint (04/12/23) Objective Data Objective Data Vital Signs: Vital Signs Temp Pulse Resp BP Pulse Ox O2 Del Method O2 Flow Rate 97.9 F 80 16 107/65 94 Room Air 2 04/15/23 08:08 04/15/23 08:08 04/15/23 08:08 04/15/23 08:08 04/15/23 08:08 04/15/23 08:08 04/15/23 03:10 Oxygen Flow Rate (L/min) 2 Oxygen Delivery Method Room Air Weight: 172 lb 6.4 oz Body Mass Index (BMI) 30.5 Intake & Output: Intake and Output for Last 24 Hours 04/13/23 04/14/23 04/15/23 23:59 23:59 23:59 Intake Total 940 / 940 400 / 400 Output Total 2050 / 3650 2800 / 2800 300 / 300 Balance -1110 / -2710 -2800 / -2600 100 / 100 Lab / Micro Data 04/14/23 06:30 04/14/23 06:30 Micro: Microbiology 04/12/23 10:25 Tissue - Hip Femoral Membrane Gram Stain - Final 04/12/23 10:25 Tissue - Hip Femoral Membrane Wound Culture - Preliminary No growth-Final to follow 04/12/23 10:25 Tissue - Hip Femoral Membrane Anaerobic Culture - Preliminary No growth in 48 hours. 04/12/23 10:30 Tissue - Hip Femoral Membrane Gram Stain - Final 04/12/23 10:30 Tissue - Hip Femoral Membrane Wound Culture - Preliminary No growth-Final to follow 04/12/23 10:30 Tissue - Hip Femoral Membrane Anaerobic Culture - Preliminary No growth in 48 hours. 04/12/23 10:17 Tissue - Hip Gram Stain - Final 04/12/23 10:17 Tissue - Hip Wound Culture - Preliminary No growth-Final to follow 04/12/23 10:17 Tissue - Hip Anaerobic Culture - Preliminary No growth in 48 hours. 03/21/23 13:36 Swab (Method) Nasal Screen MRSA/MSSA - Final Physical Exam Narrative Seen and examined. No acute issues overnight. Patient is moving all bowel and voiding urine spontaneously. No fever. Physical exam: General: Alert, Oriented x3, Cooperative, BMI 30.5 kg/m?. HEENT: Atraumatic, PERRLA, EOMI, Normocephalic Oral: Oral mucosa moist. No Gingival or Mucosal Lesions/ Ulcerations Neck: Supple, No JVD, Negative Carotid Bruits Lungs: Air entry diminished in bilateral lung bases. No crepitation/rhonchi Cardiovascular: Regular rate, Regular Rhythm, Normal S1, Normal S2, No murmurs Abdomen: Bowel Sounds Present, Soft, Non Tender, Non-Distended : No renal angle tenderness. No suprapubic tenderness. Extremities: No edema, Capillary Refill Less than 3 Seconds Skin: No rashes, No breakdown Musculoskeletal: Left hip surgical dressing is clean dry and intact with no bloody stain. No hematoma. No acute tenderness to Palpation of other joints or Extremities Neurological: Cranial nerves II-XII grossly intact, DTR 2+/4. No acute focal neurological deficit. Psych/Mental Status: Flat affect. Assessment & Plan Assessment/Plan (1) Acute blood loss anemia: (2) History of revision of total replacement of left hip joint: PLAN: Plan 1. Previous failed left hip nail with infection: Patient had previous left hip cephalomedullary nailing on September 14, 2022 with infection that required antibiotic spacer and now conversion to hemiarthroplasty, removal of antibiotic spacer on 03/23/2023. Patient was out of bed with physical therapy. No acute chest pain or shortness of breath. No numbness or tingling. Patient has Daly catheter clear urine. Advised Daly catheter drain removal tomorrow. H&H 9.4/31.1%. Platelet count 143,000. Electrolytes reviewed and in normal range. BUNs/creatinine 14/0.82. Glucose 111. Tissue culture no growth so far. Eliquis 2.5 mg twice daily as DVT prophylaxis. Pain control PT and OT. 04/14: Continue PT and OT. Incentive spirometry. Bowel and bladder care. 04/15 patient encouraged to continue incentive spirometry and Pep. Patient likely to be discharged by orthopedic surgeon with home health. Patient is medically stable. Follow-up PCP. Hospitalist team will sign off. 2. Acute blood loss, postoperative:Preoperatively her hemoglobin 14.0 dropped to 9.4 after surgery. Monitor H&H/CBC daily. On ferrous sulfate and vitamin C added. Patient had history of DIC in previous admission in November 2022 and required 5 units of FFP but that resolved. Mild thrombocytopenia. Previous platelet count from November to February 2023 has been normal more than 150,000. 04/14: H&H 9.3/29.8%. Continue iron sulfate 04/15 continue ferrous sulfate. 3. Chronic Parkinson's disease: Continue carbidopa levodopa. Advised to follow-up with neurologist. 4. History of rheumatoid arthritis: 5. Hypothyroidism 6. Dyslipidemia 7. Other comorbidities include GERD and depression: Continue citalopram olanzapine and PPI. Living will/advanced directive/end of life care: Patient does have living will or advanced directive. Her is power of employment attorney for health after discussion of benefits/risks procedures involved with full code, DNR CC arrest and DNR CC, the patient opted for DNRCC arrest with no intubation Patient doesn't want artificial life support including intubation, tube feed, ventilator and/chest compression, central venous catheter, vasopressor and DC shock if needed Charges/Coding Visit Charges Inpatient E&M: 65054 Subs Hosp L2
[2023-04-15] MEDS: Ferrous Sulfate 325 MG Tablet PO (12:04)
[2023-04-15 13:51] VITALS: O2SAT 95; O2SAT 97
== END 2023-04-15 15:18 | disposition home health service (06) | DRG 467 ==
LOC: ACINP 05:45 → MS3 13:53
PROVIDERS: Anesthesiology; Admitting Provider Specialist; PCP Family Medicine Geriatric Medicine; Referring Provider Specialist; Visit Provider Specialist
PROC: 0SRS01Z Replacement of Left Hip Joint, Femoral Surface with Metal Synthetic Substitute, Open Approach (ICD-10-PCS; CPT 27134; principal; 2023-04-12 08:25)
DX: Z47.89 Encounter for other orthopedic aftercare (principal); D62 Acute posthemorrhagic anemia; G20.C Parkinsonism, unspecified; M06.9 Rheumatoid arthritis, unspecified; E03.9 Hypothyroidism, unspecified; F32.A Depression, unspecified; I10 Essential (primary) hypertension; K22.70 Barrett's esophagus without dysplasia; E78.5 Hyperlipidemia, unspecified; G62.9 Polyneuropathy, unspecified; E55.9 Vitamin D deficiency, unspecified; M19.90 Unspecified osteoarthritis, unspecified site; K21.9 Gastro-esophageal reflux disease without esophagitis; Z86.718 Personal history of other venous thrombosis and embolism; Z96.642 Presence of left artificial hip joint
CPT/HCPCS: 36415; 73502; 80048; 82040; 82962; 83735; 84443; 85025; 85027; 85652; 86140; 87015; 87070; 87075; 87081; 87102; 87116; 87205; 87206; 94668; 97116; 97163; 97166; 97530; 97535; 99252; C1776; J7050; J7120; A4216; G0463; J2405; J2916; J3475

== ENCOUNTER → 2023-04-25 | Outpatient (CLI) | payer MEDICARE, SELFPAY ==
[2023-04-25 18:05] LABS: Absolute Lymphocyte Count 2.86 X10^3/uL (0.83-4.51); Absolute Neutrophil Count 15.6 X10^3/uL (2.0-7.7); Basophil# 0.06 X10^3/uL; Basophil% 0.3 % (0-1); Differential Indicated SCAN CRITERIA MET; Eosinophil# 0.26 X10^3/uL; Eosinophils% 1.2 % (0-5); Hematocrit 34.7 % (37-47); Hemoglobin 10.5 g/dL (12.0-15.0); Lymphocyte # 2.86 X10^3/ul (0.83-4.51); Lymphocyte % 13.5 % (19-41); Mean Corp Hgb Conc 30.3 g/dL (32-36); Mean Corpuscular Hgb 30.3 pg (27.0-32.0); Mean Corpuscular Volume 100.3 fL (81-99); Monocyte# 2.17 X10^3/uL; Monocyte% 10.2 % (0-10); NRBC Flagged by Analyzer 0 % (0-5); Neutrophil # 15.63 X10^3/uL (2.7-7.7); Neutrophil % 73.8 % (47-70); POSITIVE DIFFERENTIAL YES; Platelet Count 436 K/mm3 (150-450); RBC Distribution Width CV 14.2 % (11.6-14.6); RBC Distribution Width SD 51.1 fl (35.1-43.9); Red Blood Count 3.46 M/mm3 (4.2-5.4); White Blood Count 21.2 K/mm3 (4.4-11.0)
[2023-04-25 18:21] LABS: Differential Comment SCANNED
[2023-04-27 11:21] LABS: Pathologist Review Reviewed
== END | disposition home or self-care (01) ==
LOC: POLAB3 15:52
PROVIDERS: PCP Family Medicine Geriatric Medicine; Visit Provider Family Medicine Geriatric Medicine
DX: D64.9 Anemia, unspecified (principal)
CPT/HCPCS: 36415; 85025

== ENCOUNTER 2023-04-29 18:25 | Inpatient (IN) | payer MEDICARE, SELFPAY ==
[2023-04-29 18:26] VITALS: BP 114/64; PULSE 123; RESP 14; TEMP 36.3; O2SAT 100
--- NOTE | 2023-04-29 18:43 | EKG12_ITS ---
Test Reason : FAL Blood Pressure : / mmHG Vent. Rate : 118 BPM Atrial Rate : 118 BPM P-R Int : 138 ms QRS Dur : 078 ms QT Int : 314 ms P-R-T Axes : 015 -05 027 degrees QTc Int : 440 ms Sinus tachycardia with Premature atrial complexes Inferior infarct (cited on or before 13-SEP-2022) Abnormal ECG Confirmed by NUNU SHAH, HONG ([id number]), editor managing newspaper GRECIA MCCOY ([id number]) on 05/02/2023 6:21:50 AM Referred By: Confirmed By:LIBERTAD EDDY MD
--- NOTE | 2023-04-29 18:43 | RAD_ITS ---
STUDY: X-RAY - LEFT FEMUR REASON FOR STUDY: Female, 72 years old. pain -- post op TECHNIQUE: 2 view(s) of the femur. COMPARISON: None. FINDINGS: Satisfactory appearance of left hip arthroplasty. Satisfactory appearance of left total knee arthroplasty. Satisfactory appearance of femoral shaft. RAD/Femur Min 2 Views IMPRESSION: No definite acute or significant abnormality seen. Electronically Signed: Igor Wahl MD at 21:15 EST ,
--- NOTE | 2023-04-29 18:43 | RAD_ITS ---
STUDY: X-RAY - PELVIS REASON FOR EXAM: Female, 72 years old. pain TECHNIQUE: One view of the pelvis was obtained. COMPARISON: 04/12/2023 FINDINGS: There is a non-specific bowel gas pattern. Normal visualized soft tissue structures. Normal bilateral iliac wings, sacroiliac joints and visualized sacrum. Normal visualized bilateral superior and inferior pubic rami. Normal pubic symphysis. Normal ischial tuberosities. Incompletely visualized left hip arthroplasty appears stable on this single frontal view. Normal visualized left femoral head. Normal left acetabulum. Normal left hip joint. RAD/Pelvis 1 or 2 Views IMPRESSION: No definite acute or significant abnormality seen. Electronically Signed: Igor Wahl MD at 21:13 EST ,
--- NOTE | 2023-04-29 18:46 | EX.ED.DYSGE1 ---
HPI History of Present Illness Chief Complaint: Lower Extremity Injury Informant: patient and family Narrative Narrative: Presents to the ED with daughter and spouse increasing left hip pain this evening along with fever. She had initial hip fracture this past September and shortly after had an infection she had a spacer placed this was removed and revised April 12 postop day [address] Frances. She has been rehabbing at home and only been using Tylenol. However around 5 PM increasing hip pain where she took an oxycodone. She was in the restroom she tried to get up however due to increasing pain she had to go down to the ground, she was lowered by her spouse. There is no direct falls. She did not feel any dislocation or popping out sensations. Daughter called the nurse, however checked her vitals had a 101 oral temperature. Minimal cough. No urinary symptoms. No vomiting or diarrhea. No chills or myalgias. Prior similar symptoms: Yes PFSH PFSH Medical History Acute diarrhea Anxiety and depression Arthritis Cataracts, bilateral CHI (closed head injury) Chronic anemia GERD (gastroesophageal reflux disease) Hemorrhoids High cholesterol History of renal disease Hypothyroidism IBS (irritable bowel syndrome) Non-smoker Obesity (BMI 30.0-34.9) Osteoarthritis Parkinson disease Pressure ulcer Rheumatoid arthritis Schizophrenia Sleep apnea Ulcerative colitis Uses wheelchair Wears dentures Wears glasses Home Medications pravastatin 40 mg tablet 40 mg PO QHS CHOLESTEROL 03/22/17 [History Last Taken 04/11/23] carbidopa 25 mg-levodopa 100 mg tablet 1 tab PO TID parkinsons 09/13/22 [History Last Taken 04/12/23] citalopram 40 mg tablet 20 mg PO DAILY DEPRESSION 09/13/22 [History Last Taken 04/11/23] levothyroxine 75 mcg tablet 75 mcg PO DAILY THYROID 09/13/22 [History Last Taken 04/12/23] olanzapine 7.5 mg tablet 7.5 mg PO QHS MOOD 09/13/22 [History Last Taken 09/12/22] omeprazole 40 mg capsule,delayed release 40 mg PO DAILY ACID REFLUX 09/13/22 [History Last Taken 04/12/23] potassium chloride 20 mEq tablet,extended release(part/cryst) 20 meq PO BID SUPPLEMENT 09/13/22 [History Last Taken 04/11/23] ferrous sulfate 325 mg (65 mg iron) tablet 325 mg PO DAILY supplimentation 11/24/22 [History Last Taken 04/11/23] ursodiol 250 mg tablet 250 mg PO BID URINATION #60 tabs 12/01/22 [Rx Last Taken 04/11/23] albuterol sulfate 90 mcg/actuation aerosol inhaler 2 inh inhalation Q6H PRN shortness of breath or wheezing 03/22/23 [History Last Taken 04/11/23] cholecalciferol (vitamin D3) 25 mcg (1,000 unit) capsule (Vitamin D3) 25 mcg PO DAILY SUPPLEMENT 03/22/23 [History Last Taken 04/11/23] docusate sodium 100 mg capsule (DOK) 100 mg PO PRN STOOL SOFTENER 03/22/23 [History Last Taken 04/11/23] food supplemt, lactose-reduced 0.08 gram-1.5 kcal/mL oral liquid (Ensure Plus High Protein) 120 ml PO DAILY SUPPLEMENT 03/22/23 [History Last Taken 04/11/23] psyllium seed (sugar) oral powder (Fiber Therapy (psyllium seed-sucrose) oral powder) 1 tbsp PO DAILY SUPPLEMENT 03/22/23 [History Last Taken 04/11/23] terbinafine HCl 250 mg tablet 250 mg PO DAILY TOE FUNGUS 03/22/23 [History Last Taken 04/11/23] acetaminophen 500 mg tablet 1,000 mg (2 x 500 mg) PO Q8 #0 tabs 04/15/23 [Rx Last Taken Unknown] apixaban 5 mg tablet (Eliquis) 2.5 mg (1/2 x 5 mg) PO BID 12 days #12 tabs 04/15/23 [Rx Last Taken Unknown] doxycycline monohydrate 100 mg capsule 100 mg PO BID 12 days #24 caps 04/15/23 [Rx Last Taken Unknown] famotidine 20 mg tablet 20 mg PO DAILY 30 days #30 tabs 04/15/23 [Rx Last Taken Unknown] ondansetron 4 mg disintegrating tablet 4 mg PO Q8H PRN nausea and vomiting #20 tabs 04/15/23 [Rx Last Taken Unknown] oxycodone 5 mg tablet 5 - 10 mg (1 - 2 x 5 mg) PO Q4H PRN PRN Pain Score 4-10 5 days #42 tabs 04/15/23 [Rx Last Taken Unknown] sennosides 8.6 mg-docusate sodium 50 mg tablet (Stool Softener-Stimulant Laxative) 2 tab PO BID 5 days #20 tabs 04/15/23 [Rx Last Taken Unknown] Allergy/AdvReac Type Severity Reaction Status Date / Time linaclotide [From Linzess] Allergy Mild chest Verified 04/29/23 18:28 tightness histamine phosphate Allergy Unknown Verified 04/29/23 18:28 [From Histatrol] Family History Mother Heart disease Father Heart disease Brother Heart disease Surgical History H/O colonoscopy with polypectomy History of hip surgery History of knee replacement History of tonsillectomy and adenoidectomy History of tubal ligation Hx of surgical procedure Social History household members: spouse Smoking Status: Never smoker alcohol intake: never substance use type: does not use what type of physical activity do you participate in: walking frequency: 1-2 times per week ROS ROS ED Constitutional Constitutional ED: Reports fever(s); Denies chills or sweats Eyes Eyes: Denies change in vision ENT ENT ED: Denies dysphagia or sore throat Cardiovascular Cardiovascular: Denies chest pain, leg edema, palpitations or racing heartbeat Respiratory/Chest Respiratory/Chest: Reports cough; Denies dyspnea or dyspnea on exertion Gastrointestinal Gastrointestinal: Denies abdominal pain, diarrhea, nausea or vomiting Genitourinary Genitourinary ED: Denies dysuria, hematuria or urinary frequency Musculoskeletal Musculoskeletal: Reports extremity pain; Denies back pain or neck pain Integumentary Denies rash or wounds Neurologic Neurologic: Denies headache(s), paresthesias or weakness EXAM Physical Exam Const Vital Signs: 04/29/23 18:26 04/29/23 19:48 04/29/23 19:48 Temperature 97.3 F L 101.9 F H Temperature Source Temporal Oral Pulse Rate 123 H 115 H Respiratory Rate 14 28 H Blood Pressure 114/64 110/60 Blood Pressure Mean 80 76 Pulse Ox 100 92 92 Oxygen Delivery Method Room Air Room Air Room Air Positive well nourished and well developed Constitutional Narrative: Nontoxic General Appearance ED: well developed and NAD HEENT Reports moist mucous membranes normocephalic and atraumatic Eyes PERRL, EOMs intact bilaterally and conjunctivae normal General Eye ED: Yes normal appearance of both eyes Neck no lymphadenopathy and supple General: Negative for tenderness Chest Wall Chest: Negative for tenderness Resp normal respiratory effort and normal air movement Effort and Inspection: symmetric chest movement; Negative for respiratory distress Cardio regular rhythm and no murmurs Rate: tachycardic Peripheral Pulses: pulses 2+ throughout GI normal to inspection, nondistended, normoactive bowel sounds and non-tender Palpation: Negative for guarding or rebound tenderness present Back/Spine no CVA tenderness and no thoracic nor lumbar tenderness Extremity Extremity Narrative: Left lower extremity: No shortening or to the pharmacy. Healed scar left lateral upper thigh, it was warm to palpation there is no drainage. Negative logroll, however patient had pain with hip flexion. Pulses were intact distally. General Extremety ED: Yes edema General Extremity: edema Neuro oriented x3 and no sensory deficits noted Sensorium / Orientation: awake and alert Skin no rashes or lesions noted and no wounds Sepsis Attestation Sepsis Alert: Yes Sepsis Attestation: Agree w/Sepsis Date exam was performed: 04/29/23 Time exam was performed: 21:00 Possible Source of Sepsis: Bone/joint Sepsis Organ Dysfunction Criteria Present: Lactic Acid > 2 mmol/L Sepsis Note Date exam was performed: 04/29/23 Time exam was performed: 21:30 Sepsis Attestation: Sepsis re-evaluation was performed MDM MDM MDM Narrative Medical decision making narrative: Interventions / MDM: Differential diagnosis: Severe sepsis, left hip infection Diagnosis considered but do not suspect: Negative for pneumonia on x-ray. My EKG interpretation: Sinus rhythm 118, no ST or T wave changes, Imaging independently reviewed and interpreted by myself: 1 view chest x-ray: No acute process. 1 view pelvis: Hip prosthesis intact. Left femur 2 views: No dislocation no fractures no lucencies. All also read by radiology. External documents reviewed: N/A Test considered but not ordered:N/A ED course: Patient tachycardic on arrival minimal cough reported fever at home, afebrile here. Her left hip incision area is warm to palpation. Concern with increasing pain for which similar presentation from previously with infection. Sepsis labs were ordered. Will order x-rays of the left femur. COVID and flu. Inflammatory markers. 2044: Per nursing temperature rechecked at one 101.9. Sepsis labs were ordered and pending. Tylenol ordered for fever. 2119: white 23. lactic 2.6 hemoglobin 9 9. Creatinine 0.84. See CRP 36 ESR 13. COVID influenza negative. Urine pending. 2124: I spoke with on-call orthopedist Dr. Lance discussed patient's history and concerns, agrees with antibiotics, he will follow as a consult and further treatment plan tomorrow. I spoke with hospitalist Dr. Mohan discussed history and concerns. Patient meeting severe sepsis criteria. Source concerning for left hip. Patient be admitted to PCU. Re-evaluation: stable Disposition discussed with patient/family/significant other: Patient and family Case discussed with consulting clinician: Orthopedics, hospitalist This note was generated with Jipioation software. It may contain incorrect words, spelling, and punctuation that were not noted in checking the note before signing. History & Record Review Additional record(s) reviewed:: Prior inpatient record Lab Data Attestation: I reviewed the patient's lab results. Labs: Laboratory Results - last 24 hr 04/29/23 04/29/23 19:25 20:03 WBC 23.2 H RBC 3.22 L Hgb 9.9 L Hct 32.1 L MCV 99.7 H MCH 30.7 MCHC 30.8 L RDW Std Deviation 51.4 H RDW Coeff of Edwar 14.0 Plt Count 331 MPV 11.2 Immature Gran % (Auto) 0.800 Neut % (Auto) 73.5 H Lymph % (Auto) 6.9 L [place] % (Auto) 18.2 H Eos % (Auto) 0.4 Baso % (Auto) 0.2 Absolute Neuts (auto) 17.0 H Absolute Lymphs (auto) 1.60 Nucleated RBC % 0 Differential Comment Diff Path Review September foll ESR 13 PT 14.0 INR 1.1 APTT 31.6 Sodium 135 L Potassium 3.7 Chloride 104 Carbon Dioxide 26.0 Anion Gap 5 BUN 11 Creatinine 0.84 Estim Creat Clear Calc 52.87 Est GFR (MDRD) Af Amer 85 Est GFR (MDRD) Non-Af 71 BUN/Creatinine Ratio 13.1 Glucose 105 Lactic Acid 2.6 H* Calcium 8.6 Total Bilirubin 0.40 AST 22 ALT 7 L Alkaline Phosphatase 192 H C-React Prot Ext Range 36.00 H Total Protein 7.0 Albumin 2.9 L Globulin 4.1 Albumin/Globulin Ratio 0.7 L Radiography Diagnostic Testing: Clinical Impression(s) from Imaging Studies Femur X-Ray 04/29/23 18:43 IMPRESSION: No definite acute or significant abnormality seen. Electronically Signed: Igor Wahl MD at 21:15 EST , Pelvis X-Ray 04/29/23 18:43 IMPRESSION: No definite acute or significant abnormality seen. Electronically Signed: Igor Wahl MD at 21:13 EST , Chest X-Ray 04/29/23 20:30 IMPRESSION: No definite acute or significant abnormality seen. Electronically Signed: Igor Wahl MD at 21:16 EST , Critical Care Time Critical Care Time: Yes Critical care time (excluding procedures): 30-74 minutes, Discussing w/Patient &/or Family/Rooming House Inspector, Discussing w/Consultants, Arranging Admission or Transfer, Performing Direct Patient Care at Bedside and - (35 minutes) Discharge Plan Dx/Rx/DC Orders Clinical Impression: Fever, Severe sepsis, Infected prosthesis of left hip Disposition Disposition: [facility]
[2023-04-29 19:43] VITALS: BMI 29.3
[2023-04-29 19:48] VITALS: BP 110/60; PULSE 115; RESP 28; TEMP 38.8; O2SAT 92
[2023-04-29] MEDS: Acetaminophen 500 MG Tablet 1000 MG PO (19:56)
[2023-04-29] MEDS: 0.9% Normal Saline (1000mL) 1,000 ML 150 ML IV (20:14)
[2023-04-29 20:15] LABS: Basophil# 0.04 X10^3/uL; Basophil% 0.2 % (0-1); Eosinophils% 0.4 % (0-5); Hematocrit 32.1 % (37-47); Hemoglobin 9.9 g/dL (12.0-15.0); Lymphocyte % 6.9 % (19-41); Mean Corp Hgb Conc 30.8 g/dL (32-36); Mean Corpuscular Hgb 30.7 pg (27.0-32.0); Mean Corpuscular Volume 99.7 fL (81-99); Mean Platelet Vol. 11.2 fl (6.2-12.0); Monocyte# 4.22 X10^3/uL; Monocyte% 18.2 % (0-10); NRBC Flagged by Analyzer 0 % (0-5); Neutrophil # 17.01 X10^3/uL (2.7-7.7); Neutrophil % 73.5 % (47-70); POSITIVE DIFFERENTIAL YES; Platelet Count 331 K/mm3 (150-450); RBC Distribution Width SD 51.4 fl (35.1-43.9); Red Blood Count 3.22 M/mm3 (4.2-5.4); White Blood Count 23.2 K/mm3 (4.4-11.0)
--- NOTE | 2023-04-29 20:30 | RAD_ITS ---
STUDY: X-RAY CHEST REASON FOR EXAM: Female, 72 years old. cough TECHNIQUE: Single AP portable view of the chest. COMPARISON: 12/02/2022. FINDINGS: The lungs are clear and expanded. There is no demonstrated pleural abnormality. Normal size heart. Normal mediastinum and ankita. Normal visualized pulmonary arteries. Normal visualized aortic arch and descending thoracic aorta. Normal visualized thoracic spine. Normal visualized ribs, clavicles, and shoulders. There is no demonstrated abnormality of the visualized soft tissue structures of the upper abdomen. RAD/Chest 1 View (Portable) IMPRESSION: No definite acute or significant abnormality seen. Electronically Signed: Igor Wahl MD at 21:16 EST ,
[2023-04-29 20:31] LABS: Differential Indicated SCAN CRITERIA MET
[2023-04-29 20:33] LABS: ALB/GLOB Ratio 0.7 RATIO (0.9-2.4); AST(SGOT) 22 U/L (15-37); Alanine Aminotransfer ALT/SGPT 7 U/L (13-56); Albumin, Serum 2.9 g/dL (3.2-5.0); Alkaline Phosphatase 192 U/L (45-117); Anion Gap 5 (5-15); BUN 11 mg/dL (7-18); BUN/Creat Ratio 13.1 RATIO (10-20); Calcium,Total 8.6 mg/dL (8.5-10.1); Chloride 104 mmol/L (98-107); Creatinine, Serum 0.84 mg/dL (0.55-1.02); EST Glomerular Filtration Rate 71 mL/min (>60); Est Glom Filt Rate - Afr Amer 85 mL/min (>60); Estimated Creatinine Clearance 52.87 ml/min; Globulin 4.1 g/dL (2.2-4.2); Glucose 105 mg/dL (74-106); Potassium 3.7 mmol/L (3.5-5.1); Sodium Level 135 mmol/L (136-145)
[2023-04-29 20:37] LABS: International Normalized Ratio 1.1
[2023-04-29 20:38] LABS: Partial Thromboplast Time 31.6 Seconds (24.1-36.2)
[2023-04-29 20:48] LABS: Lactic Acid 2.6 mmol/L (0.4-1.9)
[2023-04-29 20:56] LABS: Erythrocyte Sedimentation Rate 13 mm/hr (0-30)
--- NOTE | 2023-04-29 22:00 | HP.PCM.HOS_ITS ---
HPI - General General Date of Admission: 04/29/23 Date of Service: 04/29/23 Chief Complaint: Suspected prosthetic hip joint infection HPI Narrative DANDRE PERAZA, is a 72 F with past medical history of Parkinson's disease, depression, RA (not on therapy) presents Left hip pain with fever since today evening. She was at home the pain was well-controlled after surgery and she was only on Tylenol but it has worsened today and she required oxycodone for the pain. Due to the pain today she could not mobilize and went she tried to walk she had to sit down on the ground, no direct falls. At the time she also had pressure of 101. For this reason she was brought to the ED. Her home medications include carbidopa levodopa, citalopram, pravastatin, levothyroxine, olanzapine, omeprazole, ferrous sulfate, apixaban 5 mg, doxycycli ne 100 mg twice daily, oxycodone and senna in the ED her left hip incision site is warm to touch and she was febrile 101.9 with lactic acid of 2.6 WBC at 23 hemoglobin of 9.9. On-call orthopedic Dr. Lance discussed the case and would like to evaluate the patient. X-ray pelvis today showed incompletely visualized left hip arthroplasty stable on single frontal view, normal visualized left femoral head normal acetabulum normal left hip joint. Pertinent history of Left hip fracture and repair Left hip fracture 09/14/2022 he underwent left hip cephalomedullary nail fixation howerever there was post surgical infection and she underwent drainage and antibiotic spacer placement at [facility]. Of note she was recently admitted on 04/12/2023 after removal of antibiotic spacer and placement of a partial replacement of left hip. Cultures from the surgery remain negative, she was on oral antibiotics with doxycycline. And she was discharged home as she declined SNF placement. [facility] Medical History Acute diarrhea Anxiety and depression Arthritis Cataracts, bilateral CHI (closed head injury) Chronic anemia GERD (gastroesophageal reflux disease) Hemorrhoids High cholesterol History of renal disease Hypothyroidism IBS (irritable bowel syndrome) Non-smoker Obesity (BMI 30.0-34.9) Osteoarthritis Parkinson disease Pressure ulcer Rheumatoid arthritis Schizophrenia Sleep apnea Ulcerative colitis Uses wheelchair Wears dentures Wears glasses Home Medications pravastatin 40 mg tablet 40 mg PO QHS CHOLESTEROL 03/22/17 [History Last Taken 04/11/23] carbidopa 25 mg-levodopa 100 mg tablet 1 tab PO TID parkinsons 09/13/22 [History Last Taken 04/12/23] citalopram 40 mg tablet 20 mg PO DAILY DEPRESSION 09/13/22 [History Last Taken 04/11/23] levothyroxine 75 mcg tablet 75 mcg PO DAILY THYROID 09/13/22 [History Last Taken 04/12/23] olanzapine 7.5 mg tablet 7.5 mg PO QHS MOOD 09/13/22 [History Last Taken 09/12/22] omeprazole 40 mg capsule,delayed release 40 mg PO DAILY ACID REFLUX 09/13/22 [History Last Taken 04/12/23] potassium chloride 20 mEq tablet,extended release(part/cryst) 20 meq PO BID SUPPLEMENT 09/13/22 [History Last Taken 04/11/23] ferrous sulfate 325 mg (65 mg iron) tablet 325 mg PO DAILY supplimentation 11/24/22 [History Last Taken 04/11/23] ursodiol 250 mg tablet 250 mg PO BID URINATION #60 tabs 12/01/22 [Rx Last Taken 04/11/23] albuterol sulfate 90 mcg/actuation aerosol inhaler 2 inh inhalation Q6H PRN shortness of breath or wheezing 03/22/23 [History Last Taken 04/11/23] cholecalciferol (vitamin D3) 25 mcg (1,000 unit) capsule (Vitamin D3) 25 mcg PO DAILY SUPPLEMENT 03/22/23 [History Last Taken 04/11/23] docusate sodium 100 mg capsule (DOK) 100 mg PO PRN STOOL SOFTENER 03/22/23 [History Last Taken 04/11/23] food supplemt, lactose-reduced 0.08 gram-1.5 kcal/mL oral liquid (Ensure Plus Hi gh Protein) 120 ml PO DAILY SUPPLEMENT 03/22/23 [History Last Taken 04/11/23] psyllium seed (sugar) oral powder (Fiber Therapy (psyllium seed-sucrose) oral powder) 1 tbsp PO DAILY SUPPLEMENT 03/22/23 [History Last Taken 04/11/23] terbinafine HCl 250 mg tablet 250 mg PO DAILY TOE FUNGUS 03/22/23 [History Last Taken 04/11/23] acetaminophen 500 mg tablet 1,000 mg (2 x 500 mg) PO Q8 #0 tabs 04/15/23 [Rx Last Taken Unknown] famotidine 20 mg tablet 20 mg PO DAILY 30 days #30 tabs 04/15/23 [Rx Last Taken Unknown] ondansetron 4 mg disintegrating tablet 4 mg PO Q8H PRN nausea and vomiting #20 tabs 04/15/23 [Rx Last Taken Unknown] oxycodone 5 mg tablet 5 - 10 mg (1 - 2 x 5 mg) PO Q4H PRN PRN Pain Score 4-10 5 days #42 tabs 04/15/23 [Rx Last Taken Unknown] sennosides 8.6 mg-docusate sodium 50 mg tablet (Stool Softener-Stimulant Laxative) 2 tab PO BID 5 days #20 tabs 04/15/23 [Rx Last Taken Unknown] aspirin 81 mg tablet,delayed release 81 mg PO BID heart health 04/29/23 [History Last Taken Unknown] Allergy/AdvReac Type Severity Reaction Status Date / Time linaclotide [From Linzess] Allergy Mild chest Verified 04/29/23 18:28 tightness histamine phosphate Allergy Unknown Verified 04/29/23 18:28 [From Histatrol] Family History Mother Heart disease Father Heart disease Brother Heart disease Surgical History H/O colonoscopy with polypectomy History of hip surgery History of knee replacement History of tonsillectomy and adenoidectomy History of tubal ligation Hx of surgical procedure Social History household members: spouse Smoking Status: Never smoker alcohol intake: never substance use type: does not use what type of physical activity do you participate in: walking frequency: 1-2 times per week ROS Constitutional Constitutional: Reports fatigue and fever(s) Musculoskeletal Musculoskeletal: Reports arthralgias, back pain and joint stiffness Vital Signs Vital Signs Vital Signs: 04/29/23 18:26 04/29/23 19:48 04/29/23 19:48 Temperature 97.3 F L 101.9 F H Temperature Source Temporal Oral Pulse Rate 123 H 115 H Respiratory Rate 14 28 H Blood Pressure 114/64 110/60 Blood Pressure Mean 80 76 Pulse Ox 100 92 92 Oxygen Delivery Method Room Air Room Air Room Air Weight Weight: 176 lb 9.444 oz Body Mass Index (BMI) 29.3 Physical Exam Const alert, oriented x3 and well nourished HEENT normocephalic Eyes PERRL Cardio regular rate and regular rhythm Extremity Extremity Narrative: Left hip incision site is warm, tenderness present, no fluctuation Results Lab / Micro Data Attestation: I reviewed the patient's lab results. 04/29/23 19:25 04/29/23 19:25 Labs: Laboratory Results - last 24 hr 04/29/23 19:25: WBC 23.2 H, RBC 3.22 L, Hgb 9.9 L, Hct 32.1 L, MCV 99.7 H, MCH 30.7, MCHC 30.8 L, RDW Std Deviation 51.4 H, RDW Coeff of Edwar 14.0, Plt Count 331, MPV 11.2, Immature Gran % (Auto) 0.800, Neut % (Auto) 73.5 H, Lymph % (Auto) 6.9 L, Winn % (Auto) 18.2 H, Eos % (Auto) 0.4, Baso % (Auto) 0.2, Absolute Neuts (auto) 17.0 H, Absolute Lymphs (auto) 1.60, Nucleated RBC % 0, Differential Comment , Diff Path Review September, ESR 13, PT 14.0, INR 1.1, APTT 31.6, Sodium 135 L, Potassium 3.7, Chloride 104, Carbon Dioxide 26.0, Anion Gap 5, BUN 11, Creatinine 0.84, Estim Creat Clear Calc 52.87, Est GFR (MDRD) Af Amer 85, Est GFR (MDRD) Non-Af 71, BUN/Creatinine Ratio 13.1, Glucose 105, Calcium 8.6, Total Bilirubin 0.40, AST 22, ALT 7 L, Alkaline Phosphatase 192 H, C-React Prot Ext Range 36.00 H, Total Protein 7.0, Albumin 2.9 L, Globulin 4.1, Albumin/Globulin Ratio 0.7 L 04/29/23 20:03: Lactic Acid 2.6 H* Micro: Microbiology 04/29/23 19:30 Nasal Secretion SARS-CoV-2 & FLU Antigen (Rapid) - Final Imagaing Radiology Impression Femur X-Ray 04/29/23 18:43 IMPRESSION: No definite acute or significant abnormality seen. Electronically Signed: Igor Wahl MD at 21:15 EST , Pelvis X-Ray 04/29/23 18:43 IMPRESSION: No definite acute or significant abnormality seen. Electronically Signed: Igor Wahl MD at 21:13 EST , Chest X-Ray 04/29/23 20:30 IMPRESSION: No definite acute or significant abnormality seen. Electronically Signed: Igor Wahl MD at 21:16 EST , Assessment & Plan Assessment/Plan (1) Infected prosthesis of left hip: PLAN: Plan Ms Peraza, presents with concerns of left hip pain, warmth, fever and difficulty bearing weight for the last 1 day. She had a complicated course following a fall in August leading to intertrochanteric left hip fracture, infection and recently underwent left hip hemiarthroplasty. Today, she presents with fever for 1 day, and there is warmth over the incision site. Her sutures were removed yesterday. There are no findings of abscess or PJI seen on the x-ray. 1. Prosthetic hip joint infection/cellulitis: -Blood cultures -Orthopedic consult, await for their recs before further imaging studies -Start Zosyn and vancomycin for possible infection -Physical therapy, Occupational Therapy to improve mobility -Oxycodone for the pain relief 2. Chronic anticoagulation therapy: -Eliquis was stopped recently, presently on 81 mg of aspirin twice daily -Continue same -Enoxaparin for VTE prophylaxis 3. Falls: -Physical therapy/Occupational Therapy -Likely related to the prolonged infection, recovery, reassess after therapy for the infection 4. Parkinson's disease: Well-controlled with medications continue carbidopa levodopa 5. Iron deficiency anemia continue ferrous sulfate supplementation 6. Opioid-induced constipation: Continue senna 7. Hypothyroidism continue Synthyroid 75 mcg, serum TSH tomorrow 8. Reversed albumin globulin ratio: Consider outpatient evaluation further for suspected myeloma changes given the recurrent infections. Will defer SPEP UPEP for now Charges/Coding Visit Charges Inpatient E&M: 75572 Init Hosp L3
[2023-04-29] MEDS: Piperacil/Tazobactam 4.5 GM in 0.9% Normal Saline (100mL MB+) 100 ML IV (22:53)
[2023-04-29 22:55] VITALS: BP 95/55; PULSE 106; RESP 18; TEMP 37.6; O2SAT 87
[2023-04-29 23:07] VITALS: BP 109/57; PULSE 106; RESP 22; TEMP 37.6; O2SAT 94
[2023-04-29] MEDS: Vancomycin HCl 2,000 MG in 0.9% Normal Saline (500mL Bag) 500 ML 250 MG IV (23:28)
[2023-04-29 23:33] VITALS: BP 105/57; PULSE 100; RESP 22; TEMP 37.6; O2SAT 97
[2023-04-30 00:26] LABS: Reflex Lactate? Y
[2023-04-30 00:56] VITALS: BMI 28.5
[2023-04-30 00:58] VITALS: BP 110/62; PULSE 92; RESP 16; TEMP 36.6; O2SAT 97
[2023-04-30 01:27] LABS: Lactic Acid 1.3 mmol/L (0.4-1.9)
[2023-04-30] MEDS: 0.9% Normal Saline (1000mL) 1,000 ML 150 ML IV ×3 (04:43→18:35)
[2023-04-30] MEDS: Levothyroxine 75 MCG Tablet PO (04:44)
[2023-04-30] MEDS: Carbidopa/Levodopa 25/100 Tablet PO ×3 (04:44→15:18)
[2023-04-30] MEDS: Acetaminophen 500 MG Tablet 1000 MG PO ×3 (04:44→20:56)
[2023-04-30 05:43] VITALS: BP 111/60; PULSE 98; RESP 18; TEMP 37.1; O2SAT 100
[2023-04-30 07:23] LABS: Absolute Lymphocyte Count 1.39 X10^3/uL (0.83-4.51); Basophil# 0.03 X10^3/uL; Basophil% 0.2 % (0-1); Eosinophil# 0.09 X10^3/uL; Eosinophils% 0.5 % (0-5); Hematocrit 27.4 % (37-47); Hemoglobin 8.4 g/dL (12.0-15.0); Lymphocyte # 1.39 X10^3/ul (0.83-4.51); Lymphocyte % 7.1 % (19-41); Mean Corp Hgb Conc 30.7 g/dL (32-36); Mean Corpuscular Hgb 30.4 pg (27.0-32.0); Mean Corpuscular Volume 99.3 fL (81-99); Monocyte# 4.87 X10^3/uL; NRBC Flagged by Analyzer 0 % (0-5); Neutrophil # 12.99 X10^3/uL (2.7-7.7); Neutrophil % 66.6 % (47-70); POSITIVE DIFFERENTIAL YES; Platelet Count 261 K/mm3 (150-450); Red Blood Count 2.76 M/mm3 (4.2-5.4); White Blood Count 19.5 K/mm3 (4.4-11.0)
[2023-04-30 07:26] LABS: Differential Indicated SCAN CRITERIA MET
[2023-04-30 08:00] LABS: ALB/GLOB Ratio 0.7 RATIO (0.9-2.4); AST(SGOT) 19 U/L (15-37); Alanine Aminotransfer ALT/SGPT < 6 U/L (13-56); Albumin, Serum 2.4 g/dL (3.2-5.0); Alkaline Phosphatase 150 U/L (45-117); Anion Gap 4 (5-15); BUN 8 mg/dL (7-18); BUN/Creat Ratio 12.7 RATIO (10-20); Bilirubin, Direct 0.38 mg/dL (0.00-0.30); Calcium,Total 7.9 mg/dL (8.5-10.1); Chloride 109 mmol/L (98-107); Creatinine, Serum 0.63 mg/dL (0.55-1.02); EST Glomerular Filtration Rate 98 mL/min (>60); Est Glom Filt Rate - Afr Amer 119 mL/min (>60); Estimated Creatinine Clearance 44.41 ml/min; Globulin 3.5 g/dL (2.2-4.2); Glucose 103 mg/dL (74-106); Magnesium 1.9 mg/dL (1.6-2.6); Phosphorus 3.1 mg/dL (2.5-4.9); Potassium 3.1 mmol/L (3.5-5.1); Protein, Total 5.9 g/dL (6.4-8.2); Sodium Level 138 mmol/L (136-145); Thyroid Stim Hormone (TSH) 0.82 uIU/mL (0.358-3.74)
--- NOTE | 2023-04-30 08:02 | PN.HOSP_ITS ---
Reason for Visit Reason for Visit: Diagnoses Infection and inflammatory reaction due to internal left hip prosthesis, initial encounter (04/29/23) Subjective Subjective Patient is a 72-year-old lady with previous left hip hemiarthroplasty which was complicated by hip nail infection had a an antibiotic spacer removed on 04/12/2023 presented with left hip pain warmth and fever as well as difficulty bearing weight. An assessment of prosthetic hip joint infection was made started on broad-spectrum antibiotic therapy admitted to regular nursing floor for further management Objective Data Objective Data Vital Signs: Vital Signs Temp Pulse Resp BP Pulse Ox O2 Del Method O2 Flow Rate 98.8 F 98 18 111/60 100 Nasal Cannula 3 04/30/23 05:43 04/30/23 05:43 04/30/23 05:43 04/30/23 05:43 04/30/23 05:43 04/30/23 05:43 04/30/23 05:43 Oxygen Flow Rate (L/min) 3 Oxygen Delivery Method Nasal Cannula Weight: 77.8 kg Body Mass Index (BMI) 28.5 Intake & Output: Intake and Output for Last 24 Hours 04/28/23 04/29/23 04/30/23 23:59 23:59 23:59 Intake Total 100 / 100 1540 / 1540 Output Total 300 / 300 Balance 100 / 100 1240 / 1240 Lab / Micro Data 04/30/23 06:17 04/30/23 06:17 Labs: Laboratory Results - last 24 hr 04/29/23 19:25: WBC 23.2 H, RBC 3.22 L, Hgb 9.9 L, Hct 32.1 L, MCV 99.7 H, MCH 30.7, MCHC 30.8 L, RDW Std Deviation 51.4 H, RDW Coeff of Edwar 14.0, Plt Count 331, MPV 11.2, Immature Gran % (Auto) 0.800, Neut % (Auto) 73.5 H, Lymph % (Auto) 6.9 L, Hall % (Auto) 18.2 H, Eos % (Auto) 0.4, Baso % (Auto) 0.2, Absolute Neuts (auto) 17.0 H, Absolute Lymphs (auto) 1.60, Nucleated RBC % 0, Differential Comment , Diff Path Review September, ESR 13, PT 14.0, INR 1.1, APTT 31.6, Sodium 135 L, Potassium 3.7, Chloride 104, Carbon Dioxide 26.0, Anion Gap 5, BUN 11, Creatinine 0.84, Estim Creat Clear Calc 52.87, Est GFR (MDRD) Af Amer 85, Est GFR (MDRD) Non-Af 71, BUN/Creatinine Ratio 13.1, Glucose 105, Calcium 8.6, Total Bilirubin 0.40, AST 22, ALT 7 L, Alkaline Phosphatase 192 H, C-React Prot Ext Range 36.00 H, Total Protein 7.0, Albumin 2.9 L, Globulin 4.1, Albumin/Globulin Ratio 0.7 L 04/29/23 20:03: Lactic Acid 2.6 H* 04/30/23 00:50: Lactic Acid 1.3 04/30/23 06:17: WBC 19.5 H, RBC 2.76 L, Hgb 8.4 L, Hct 27.4 L, MCV 99.3 H, MCH 30.4, MCHC 30.7 L, RDW Std Deviation 50.0 H, RDW Coeff of Edwar 14.0, Plt Count 261, MPV 11.0, Immature Gran % (Auto) 0.600, Neut % (Auto) 66.6, Lymph % (Auto) 7.1 L, Hall % (Auto) 25.0 H, Eos % (Auto) 0.5, Baso % (Auto) 0.2, Absolute Neuts (auto) 13.0 H, Absolute Lymphs (auto) 1.39, Nucleated RBC % 0, Diff Path Review September, Sodium 138, Potassium 3.1 L, Chloride 109 H, Carbon Dioxide 25.0, Anion Gap 4 L, BUN 8, Creatinine 0.63, Estim Creat Clear Calc 44.41, Est GFR (MDRD) Af Amer 119, Est GFR (MDRD) Non-Af 98, BUN/Creatinine Ratio 12.7, Glucose 103, Calcium 7.9 L, Phosphorus 3.1, Magnesium 1.9, Total Bilirubin 0.90, Direct Bilirubin 0.38 H, AST 19, ALT < 6 L, Alkaline Phosphatase 150 H, Total Protein 5.9 L, Albumin 2.4 L, Globulin 3.5, Albumin/Globulin Ratio 0.7 L, TSH 0.82 Micro: Microbiology 04/29/23 19:30 Nasal Secretion SARS-CoV-2 & FLU Antigen (Rapid) - Final Radiography Diagnostic Testing: Radiology Impression Femur X-Ray 04/29/23 18:43 IMPRESSION: No definite acute or significant abnormality seen. Electronically Signed: Igor Wahl MD at 21:15 EST , Pelvis X-Ray 04/29/23 18:43 IMPRESSION: No definite acute or significant abnormality seen. Electronically Signed: Igor Wahl MD at 21:13 EST , Chest X-Ray 04/29/23 20:30 IMPRESSION: No definite acute or significant abnormality seen. Electronically Signed: Igor Wahl MD at 21:16 EST , Physical Exam Narrative GENERAL: cooperative HEENT: Atraumatic; normocephalic EYES; Anicteric, Normal Conjunctiva NECK; supple, normal thyroid, RESPIRATORY: Diminished to auscultation CARDIOVASCULAR: Regular S1 S2, GI: soft, normoactive bowel sounds, : No Renal angle tenderness; EXTREMITIES: No edema, no clubbing, MUSCULOSKELETAL: Erythema and warmth over the left hip NEURO: Awake; no lateralizing signs. SKIN: No Rash PSYCH; Flat affect Assessment & Plan Assessment/Plan (1) Infected prosthesis of left hip: PLAN: Plan Patient is a 72-year-old lady with previous left hip hemiarthroplasty which was complicated by hip nail infection had a an antibiotic spacer removed on 04/12/2023 presented with left hip pain warmth and fever as well as difficulty bearing weight. An assessment of prosthetic hip joint infection was made started on broad-spectrum antibiotic therapy admitted to regular nursing floor for further management 1. Left prosthetic hip joint infection with surrounding area of cellulitis ? Patient admitted to regular nursing floor started on Zosyn and vancomycin consult placed to orthopedic surgery 2. Parkinson's disease ? Patient is on carbidopa/levodopa did continue 3. Hypothyroidism - Patient is on levothyroxine home dose continued 4. GERD ? On PPI 5. Rheumatoid arthritis ? Patient currently not on any DMARDs 6. Anemia - Secondary to chronic disorder monitoring H&H and transfuse if patient becomes symptomatic or hemoglobin falls below 7 7. Opioid-induced constipation ? Patient is on senna 8. Physical deconditioning - Requested for PT OT eval and healthcare social worker to assist with discharge planning 9. Reversed albumin globulin ratio Plan is for patient to undergo evaluation for suspected myeloma as outpatient. SPEP/and UPEP ordered by admitting physician 10. Hypokalemia -Corrected per protocol 11. DVT prophylaxis ? Patient was on Eliquis currently being held in anticipation of surgical intervention Time spent in the patient's overall evaluation,decision-making process, review of diagnostic data, adjustment of management, discussion with other providers, nursing nursing and ancillary staff involved in patient's care documentation, 50 Minutes Charges/Coding Visit Charges Inpatient E&M: 68948 [facility] L[facility]
[2023-04-30 08:22] LABS: International Normalized Ratio 1.2; Prothrombin Time (Protime)PT. 15.4 SECONDS (11.7-14.9)
[2023-04-30] MEDS: Senna/Docusate Sodium 1 Tablet 2 TABLET PO ×2 (08:43→20:56)
[2023-04-30] MEDS: Ursodiol 250 MG Tablet PO ×2 (08:44→17:37)
[2023-04-30] MEDS: Pantoprazole Sodium 40 MG Tablet PO (08:45)
[2023-04-30] MEDS: Citalopram 20 MG Tablet PO (08:45)
[2023-04-30] MEDS: Cholecalciferol (VIT D3) 25 MCG TABLET (1,000 UNITS) PO (08:46)
[2023-04-30] MEDS: Ensure Plus High Protein 120 ML LIQUID PO (08:50)
[2023-04-30] MEDS: Heparin Injection (Vial) 5,000 UNIT/ML VIAL 5000 UNIT SC ×2 (08:54→20:56)
[2023-04-30 08:58] VITALS: BP 99/58; PULSE 85; RESP 16; TEMP 36.9; O2SAT 92
[2023-04-30] MEDS: Potassium Chloride Oral Tablet 20 MEQ 40 MEQ PO (11:45)
[2023-04-30] MEDS: Ferrous Sulfate 325 MG Tablet PO (11:46)
[2023-04-30 15:00] VITALS: BP 121/52; PULSE 95; PULSE 96; RESP 15; TEMP 37.2; O2SAT 92
[2023-04-30 17:17] LABS: Bacteria 0 SEEN /hpf (None Seen); Mucous, Urine 0 SEEN /hpf (<or=2+); Red Blood Cells-Urine 0 SEEN /hpf (0-5)
[2023-04-30 17:18] LABS: Color, Urine Yellow (Yellow); Glucose, Dipstick Normal (Normal); Ketone-Dipstick Negative (Negative); Leukocyte Esterase-Dipstick 500 /ul (Negative); Nitrite-Dipstick Negative (Negative); Occult Blood-Urine 10 /ul (Negative); Protein-Dipstick 15 mg/dl (Negative); Specific Gravity, Urine 1.005 (1.002-1.030); Urine Bilirubin Dipstick Negative (Negative); Urine Clarity Clear (Clear); Urine Urobilinogen 1 mg/dl (Normal)
[2023-04-30 17:29] LABS: Squamous Epithelial Cells - UA 0-5 SEEN /hpf (5-10); White Blood Cells 0-5 SEEN /hpf (0-5)
[2023-04-30] MEDS: Potassium Chloride Oral Tablet 20 MEQ PO (17:38)
--- NOTE | 2023-04-30 18:24 | CON.PCM.OR_ITS ---
HPI Consult Data Date of Consult: 04/30/23 HPI Narrative Reason for Consultation: Concern for left hip prosthetic joint infection HPI Narrative: DANDRE PERAZA, is a 72 F who presented to [facility] emergency department after she was lightheaded at home after taking oxycodone and sustained a assisted fall to the ground onto her backside. Her was able to catch her during the fall and she slowly impacted the ground. She reported some increase in her left hip pain which has been present since her Most recent surgery with Dr. Frances on 04/12/2023. Patient has history of several surgeries on her left hip. Patient sustained a left intertrochanteric hip fracture in August 2022 and underwent a left hip nailing with Dr. Frances on 09/14/22. She underwent subsequent I&D and placement of antibiotic spacer on 10/11/[address] Martin. Patient underwent subsequent removal of antibiotic spacer and conversion to left hip hemiarthroplasty on 04/12/[address] Frances after prolonged antibiotics. Patient was discharged to home on 04/15/2023 on 2 weeks of doxycycline. Patient is followed up at [place] [facility] for staple removal. She does note the proximal most portion of her incision did open slightly and has been intermittently draining bloody fluid. She denies any significant redness about the incision or pus drainage. She reports she has been having intermittent cold sweats for several months but denies any worsening in the symptoms. She does report some upper respiratory infection symptoms including a sore throat that developed approximately 1 day ago. She denies any dysuria. Denies any cough or congestion. Denies any nausea or vomiting. Patient states she came to the emergency department yesterday after talking to her home health care nurse to get checked out from the fall. She reports initial vitals in the ER showed a fever and prompted blood work which subsequently showed elevated inflammatory markers and elevated lactic acid. She was started on vancomycin and Zosyn in the emergency department. It appears these have not been continued based on the medical record. Patient states her pain is stable over the last 24 hours. She has been struggling with ambulation, but this has not changed significantly since surgery. [facility] Medical History Acute diarrhea Anxiety and depression Arthritis Cataracts, bilateral CHI (closed head injury) Chronic anemia GERD (gastroesophageal reflux disease) Hemorrhoids High cholesterol History of renal disease Hypothyroidism IBS (irritable bowel syndrome) Non-smoker Obesity (BMI 30.0-34.9) Osteoarthritis Parkinson disease Pressure ulcer Rheumatoid arthritis Schizophrenia Sleep apnea Ulcerative colitis Uses wheelchair Wears dentures Wears glasses Home Medications pravastatin 40 mg tablet 40 mg PO QHS CHOLESTEROL 03/22/17 [History Last Taken 04/11/23] carbidopa 25 mg-levodopa 100 mg tablet 1 tab PO TID parkinsons 09/13/22 [History Last Taken 04/12/23] citalopram 40 mg tablet 20 mg PO DAILY DEPRESSION 09/13/22 [History Last Taken 04/11/23] levothyroxine 75 mcg tablet 75 mcg PO DAILY THYROID 09/13/22 [History Last Taken 04/12/23] olanzapine 7.5 mg tablet 7.5 mg PO QHS MOOD 09/13/22 [History Last Taken 09/12/22] omeprazole 40 mg capsule,delayed release 40 mg PO DAILY ACID REFLUX 09/13/22 [History Last Taken 04/12/23] potassium chloride 20 mEq tablet,extended release(part/cryst) 20 meq PO BID SUPPLEMENT 09/13/22 [History Last Taken 04/11/23] ferrous sulfate 325 mg (65 mg iron) tablet 325 mg PO DAILY supplimentation 11/24/22 [History Last Taken 04/11/23] ursodiol 250 mg tablet 250 mg PO BID URINATION #60 tabs 12/01/22 [Rx Last Taken 04/11/23] albuterol sulfate 90 mcg/actuation aerosol inhaler 2 inh inhalation Q6H PRN shortness of breath or wheezing 03/22/23 [History Last Taken 04/11/23] cholecalciferol (vitamin D3) 25 mcg (1,000 unit) capsule (Vitamin D3) 25 mcg PO DAILY SUPPLEMENT 03/22/23 [History Last Taken 04/11/23] docusate sodium 100 mg capsule (DOK) 100 mg PO PRN STOOL SOFTENER 03/22/23 [History Last Taken 04/11/23] food supplemt, lactose-reduced 0.08 gram-1.5 kcal/mL oral liquid (Ensure Plus High Protein) 120 ml PO DAILY SUPPLEMENT 03/22/23 [History Last Taken 04/11/23] psyllium seed (sugar) oral powder (Fiber Therapy (psyllium seed-sucrose) oral powder) 1 tbsp PO DAILY SUPPLEMENT 03/22/23 [History Last Taken 04/11/23] terbinafine HCl 250 mg tablet 250 mg PO DAILY TOE FUNGUS 03/22/23 [History Last Taken 04/11/23] acetaminophen 500 mg tablet 1,000 mg (2 x 500 mg) PO Q8 #0 tabs 04/15/23 [Rx Last Taken Unknown] famotidine 20 mg tablet 20 mg PO DAILY 30 days #30 tabs 04/15/23 [Rx Last Taken Unknown] ondansetron 4 mg disintegrating tablet 4 mg PO Q8H PRN nausea and vomiting #20 tabs 04/15/23 [Rx Last Taken Unknown] oxycodone 5 mg tablet 5 - 10 mg (1 - 2 x 5 mg) PO Q4H PRN PRN Pain Score 4-10 5 days #42 tabs 04/15/23 [Rx Last Taken Unknown] sennosides 8.6 mg-docusate sodium 50 mg tablet (Stool Softener-Stimulant Laxative) 2 tab PO BID 5 days #20 tabs 04/15/23 [Rx Last Taken Unknown] aspirin 81 mg tablet,delayed release 81 mg PO BID heart health 04/29/23 [History Last Taken Unknown] Allergy/AdvReac Type Severity Reaction Status Date / Time linaclotide [From Linzess] Allergy Mild chest Verified 04/29/23 18:28 tightness histamine phosphate Allergy Unknown Verified 04/29/23 18:28 [From Histatrol] Family History Mother Heart disease Father Heart disease Brother Heart disease Surgical History H/O colonoscopy with polypectomy History of hip surgery History of knee replacement History of tonsillectomy and adenoidectomy History of tubal ligation Hx of surgical procedure Social History household members: spouse Smoking Status: Never smoker alcohol intake: never substance use type: does not use what type of physical activity do you participate in: walking frequency: 1-2 times per week ROS ROS Narrative 12 point review systems obtained, negative unless otherwise noted in HPI Vital Signs Vital Signs Vital Signs: 04/29/23 18:26 04/29/23 19:48 04/29/23 19:48 Temperature 97.3 F L 101.9 F H Temperature Source Temporal Oral Pulse Rate 123 H 115 H Pulse Strength Respiratory Rate 14 28 H Respiratory Effort Respiratory Depth Respiratory Pattern Blood Pressure 114/64 110/60 Blood Pressure Mean 80 76 Blood Pressure Source Blood Pressure Position Blood Pressure Location Pulse Ox 100 92 92 Oxygen Delivery Method Room Air Room Air Room Air Oxygen Flow Rate (L/min) 04/29/23 22:55 04/29/23 23:07 04/29/23 23:33 Temperature 99.7 F H 99.7 F H 99.7 F H Temperature Source Oral Oral Pulse Rate 106 H 106 H 100 Pulse Strength Respiratory Rate 18 22 H 22 H Respiratory Effort Respiratory Depth Respiratory Pattern Blood Pressure 95/55 L 109/57 L 105/57 L Blood Pressure Mean 68 74 73 Blood Pressure Source Blood Pressure Position Blood Pressure Location Pulse Ox 87 94 97 Oxygen Delivery Method Room Air Nasal Cannula Oxygen Flow Rate (L/min) 3 04/30/23 00:58 04/30/23 00:58 04/30/23 05:43 Temperature 97.8 F 97.8 F 98.8 F Temperature Source Temporal Temporal Temporal Pulse Rate 92 92 98 Pulse Strength Respiratory Rate 16 16 18 Respiratory Effort Respiratory Depth Respiratory Pattern Blood Pressure 110/62 110/62 111/60 Blood Pressure Mean 78 78 77 Blood Pressure Source Monitor Blood Pressure Position Semi-Fowlers Blood Pressure Location Right Arm Pulse Ox 97 97 100 Oxygen Delivery Method Nasal Cannula Nasal Cannula Nasal Cannula Oxygen Flow Rate (L/min) 3 3 4 04/30/23 05:43 04/30/23 08:58 04/30/23 10:00 Temperature 98.8 F 98.4 F Temperature Source Temporal Oral Pulse Rate 98 85 Pulse Strength Normal (2+) Respiratory Rate 18 16 Respiratory Effort Respiratory Depth Respiratory Pattern Blood Pressure 111/60 99/58 L Blood Pressure Mean 77 71 Blood Pressure Source Monitor Monitor Blood Pressure Position Supine Blood Pressure Location Right Arm Pulse Ox 100 92 Oxygen Delivery Method Nasal Cannula Room Air Oxygen Flow Rate (L/min) 3 04/30/23 10:00 04/30/23 14:00 04/30/23 15:00 Temperature 99 F Temperature Source Oral Pulse Rate 95 Pulse Strength Respiratory Rate 15 Respiratory Effort Normal Non-Labored Respiratory Depth Normal Respiratory Pattern Normal Blood Pressure 121/52 H Blood Pressure Mean 75 Blood Pressure Source Monitor Blood Pressure Position Blood Pressure Location Pulse Ox 92 Oxygen Delivery Method Room Air Room Air Oxygen Flow Rate (L/min) 04/30/23 15:00 Temperature 99 F Temperature Source Oral Pulse Rate 96 Pulse Strength Respiratory Rate 15 Respiratory Effort Respiratory Depth Respiratory Pattern Blood Pressure 121/52 H Blood Pressure Mean 75 Blood Pressure Source Blood Pressure Position Blood Pressure Location Pulse Ox 92 Oxygen Delivery Method Room Air Oxygen Flow Rate (L/min) Weight Weight: 171 lb 8.314 oz Body Mass Index (BMI) 28.5 Physical Exam Narrative General -A&Ox3, NAD, appears stated age. Vital signs stable, afebrile. Respiratory -normal work of breathing, no intercostal retractions. CV -pulses regular, brisk capillary refill ?4 limbs. Abdomen-soft, nontender, nondistended. No guarding, rigidity, rebound tenderness. Musculoskeletal/neurologic -full range of motion nontender throughout bilateral upper extremities, right lower extremity with full sensation and strength in all dermatomes and myotomes. No midline cervical tenderness. Left lower [id number] posterior lateral hip incision except for a 2 cm dehiscence at the proximal apex of the wound with minimal sanguinous drainage. There is no significant erythema. Probing of the wound demonstrates no tracking deep to the subcutaneous fat layer. There is no tunneling. No pain with logroll of the left lower extremity. Nontender throughout the left knee femoral shaft, tibial shaft and left foot/ankle. Brisk capillary refill. Sensation intact light touch L3-S1 dermatomes. DF, PF, EHL intact. DP, PT 2+. Pelvis is stable, nontender. Skin is intact without lacerations, abrasions. No ecchymosis noted. Lab / Micro Data 04/30/23 06:17 04/30/23 06:17 Labs: Laboratory Results - last 24 hr 04/29/23 19:25: WBC 23.2 H, RBC 3.22 L, Hgb 9.9 L, Hct 32.1 L, MCV 99.7 H, MCH 30.7, MCHC 30.8 L, RDW Std Deviation 51.4 H, RDW Coeff of Edwar 14.0, Plt Count 331, MPV 11.2, Immature Gran % (Auto) 0.800, Neut % (Auto) 73.5 H, Lymph % (Auto) 6.9 L, [place] % (Auto) 18.2 H, Eos % (Auto) 0.4, Baso % (Auto) 0.2, Absolute Neuts (auto) 17.0 H, Absolute Lymphs (auto) 1.60, Nucleated RBC % 0, Differential Comment , Diff Path Review September, ESR 13, PT 14.0, INR 1.1, APTT 31.6, Sodium 135 L, Potassium 3.7, Chloride 104, Carbon Dioxide 26.0, Anion Gap 5, BUN 11, Creatinine 0.84, Estim Creat Clear Calc 52.87, Est GFR (MDRD) Af Amer 85, Est GFR (MDRD) Non-Af 71, BUN/Creatinine Ratio 13.1, Glucose 105, Calcium 8.6, Total Bilirubin 0.40, AST 22, ALT 7 L, Alkaline Phosphatase 192 H, C-React Prot Ext Range 36.00 H, Total Protein 7.0, Albumin 2.9 L, Globulin 4.1, Albumin/Globulin Ratio 0.7 L 04/29/23 20:03: Lactic Acid 2.6 H* 04/30/23 00:50: Lactic Acid 1.3 04/30/23 06:17: WBC 19.5 H, RBC 2.76 L, Hgb 8.4 L, Hct 27.4 L, MCV 99.3 H, MCH 30.4, MCHC 30.7 L, RDW Std Deviation 50.0 H, RDW Coeff of Edwar 14.0, Plt Count 261, MPV 11.0, Immature Gran % (Auto) 0.600, Neut % (Auto) 66.6, Lymph % (Auto) 7.1 L, [place] % (Auto) 25.0 H, Eos % (Auto) 0.5, Baso % (Auto) 0.2, Absolute Neuts (auto) 13.0 H, Absolute Lymphs (auto) 1.39, Nucleated RBC % 0, Diff Path Review September, PT 15.4 H, INR 1.2, Sodium 138, Potassium 3.1 L, Chloride 109 H, Carbon Dioxide 25.0, Anion Gap 4 L, BUN 8, Creatinine 0.63, Estim Creat Clear Calc 44.41, Est GFR (MDRD) Af Amer 119, Est GFR (MDRD) Non-Af 98, BUN/Creatinine Ratio 12.7, Glucose 103, Calcium 7.9 L, Phosphorus 3.1, Magnesium 1.9, Total Bilirubin 0.90, Direct Bilirubin 0.38 H, AST 19, ALT < 6 L, Alkaline Phosphatase 150 H, Total Protein 5.9 L, Albumin 2.4 L, Globulin 3.5, Albumin/Globulin Ratio 0.7 L, TSH 0.82 04/30/23 17:05: Urine Color Yellow, Urine Clarity Clear, Urine pH 7.0, Ur Spe cific [place] 1.005, Urine Protein 15 H, Urine Glucose (UA) Normal, Urine Ket ones Negative, Urine Occult Blood 10 H, Urine Nitrite Negative, Urine Bilirubin Negative, Urine Urobilinogen 1 H, Ur Leukocyte Esterase 500 H, Urine RBC 0 SEEN, Urine WBC 0-5 SEEN, Ur Squamous Epith Cells 0-5 SEEN, Urine Bacteria 0 SEEN, Urine Mucus 0 SEEN Micro: Microbiology 04/29/23 19:30 Nasal Secretion SARS-CoV-2 & FLU Antigen (Rapid) - Final Imagaing Radiology Impression Femur X-Ray 04/29/23 18:43 IMPRESSION: No definite acute or significant abnormality seen. Electronically Signed: Igor Wahl MD at 21:15 EST Reading Location ID and State: [facility] / [place] , Service support , Pelvis X-Ray 04/29/23 18:43 IMPRESSION: No definite acute or significant abnormality seen. Electronically Signed: Igor Wahl MD at 21:13 EST Reading Location ID and State: [facility] / [place] , Service support , Chest X-Ray 04/29/23 20:30 IMPRESSION: No definite acute or significant abnormality seen. Electronically Signed: Igor Wahl MD at 21:16 EST , Assessment & Plan Assessment/Plan (1) History of revision of total replacement of left hip joint: PLAN: Patient seen and examined. XRs reviewed and appear stable. Patient has elevated inflammatory markers in setting of recent hip infection. Blood, urine cultures are pending. Overall, patient's left hip appears benign minus a archer perficial dehiscence and no erythema. Patient is hemodynamically stable. No emergent surgical invention at this time. Agree with supportive care. Trend daily WBC. I will discuss case with Dr. Jorge Frances for further workup recommendations given the patient's complex history of her left hip.
[2023-04-30 20:47] VITALS: BP 124/83; PULSE 101; RESP 18; TEMP 38.7; O2SAT 95
[2023-04-30] MEDS: OLANZapine 2.5 MG Tablet 7.5 MG PO (20:56)
[2023-04-30] MEDS: Pravastatin 40 MG Tablet PO (20:56)
[2023-05-01] VITALS: TEMP 36.6
[2023-05-01] MEDS: 0.9% Normal Saline (1000mL) 1,000 ML 150 ML IV ×2 (01:30→08:30)
[2023-05-01 03:08] VITALS: BP 130/77; PULSE 88; RESP 16; TEMP 36.8; O2SAT 96
[2023-05-01] MEDS: Acetaminophen 500 MG Tablet 1000 MG PO ×3 (05:41→20:54)
[2023-05-01] MEDS: Carbidopa/Levodopa 25/100 Tablet PO ×3 (05:41→15:33)
[2023-05-01] MEDS: Levothyroxine 75 MCG Tablet PO (05:41)
[2023-05-01 06:18] LABS: Absolute Lymphocyte Count 1.61 X10^3/uL (0.83-4.51); Absolute Neutrophil Count 12.5 X10^3/uL (2.0-7.7); Basophil# 0.02 X10^3/uL; Basophil% 0.1 % (0-1); Eosinophil# 0.08 X10^3/uL; Eosinophils% 0.4 % (0-5); Hematocrit 28.4 % (37-47); Hemoglobin 8.5 g/dL (12.0-15.0); Lymphocyte # 1.61 X10^3/ul (0.83-4.51); Lymphocyte % 8.8 % (19-41); Mean Corp Hgb Conc 29.9 g/dL (32-36); Mean Corpuscular Hgb 30.1 pg (27.0-32.0); Mean Corpuscular Volume 100.7 fL (81-99); Monocyte# 4.01 X10^3/uL; Monocyte% 21.9 % (0-10); NRBC Flagged by Analyzer 0 % (0-5); Neutrophil # 12.49 X10^3/uL (2.7-7.7); Neutrophil % 68.1 % (47-70); POSITIVE DIFFERENTIAL YES; Platelet Count 225 K/mm3 (150-450); RBC Distribution Width CV 13.5 % (11.6-14.6); Red Blood Count 2.82 M/mm3 (4.2-5.4); White Blood Count 18.3 K/mm3 (4.4-11.0)
[2023-05-01 06:30] LABS: Differential Indicated SCAN CRITERIA MET
[2023-05-01 06:38] LABS: Anion Gap 6 (5-15); BUN 6 mg/dL (7-18); BUN/Creat Ratio 10.1 RATIO (10-20); Calcium,Total 7.8 mg/dL (8.5-10.1); Chloride 111 mmol/L (98-107); Creatinine, Serum 0.59 mg/dL (0.55-1.02); EST Glomerular Filtration Rate 105 mL/min (>60); Est Glom Filt Rate - Afr Amer 127 mL/min (>60); Estimated Creatinine Clearance 44.41 ml/min; Glucose 96 mg/dL (74-106); Phosphorus 2.7 mg/dL (2.5-4.9); Potassium 3.2 mmol/L (3.5-5.1); Sodium Level 140 mmol/L (136-145)
[2023-05-01] MEDS: Ondansetron 4 MG/2 ML Vial IV (08:30)
[2023-05-01 09:08] VITALS: BP 96/50; PULSE 92; RESP 17; TEMP 36.6; O2SAT 95
[2023-05-01] MEDS: Potassium Chloride Oral Tablet 20 MEQ PO ×2 (09:13→15:33)
[2023-05-01] MEDS: Senna/Docusate Sodium 1 Tablet 2 TABLET PO ×2 (09:13→20:54)
[2023-05-01] MEDS: Pantoprazole Sodium 40 MG Tablet PO (09:13)
[2023-05-01] MEDS: Heparin Injection (Vial) 5,000 UNIT/ML VIAL 5000 UNIT SC ×2 (09:14→20:58)
[2023-05-01] MEDS: Citalopram 20 MG Tablet PO (09:14)
[2023-05-01] MEDS: Menthol/Lanolin/Calamine/Znox 113 GM Tube 1 APPLIC TOPICAL (10:38)
[2023-05-01] MEDS: Ensure Plus High Protein 120 ML LIQUID PO (10:38)
[2023-05-01] MEDS: Ursodiol 250 MG Tablet PO ×2 (10:38→15:33)
[2023-05-01] MEDS: Nystatin Powder 15gm Bottle 1 APPLIC TOPICAL ×2 (10:39→20:52)
[2023-05-01] MEDS: Cholecalciferol (VIT D3) 25 MCG TABLET (1,000 UNITS) PO (10:40)
[2023-05-01] MEDS: Ferrous Sulfate 325 MG Tablet PO (10:42)
[2023-05-01] MEDS: Piperacil/Tazobactam 4.5 GM in 0.9% Normal Saline (100mL MB+) 100 ML IV (11:38)
--- NOTE | 2023-05-01 12:51 | PCM.RX.CS ---
Consult Antibiotic Management Pharmacy has been consulted to manage selected antiobiotic: Vancomycin Type of Intervention Type of Consult: New start Suspected Infection Suspected Infection: Other Labs Labs: Sodium 140 mmol/L (136-145) 05/01/23 05:47 Potassium 3.2 mmol/L (3.5-5.1) L 05/01/23 05:47 Chloride 111 mmol/L (98-107) H 05/01/23 05:47 Carbon Dioxide 23.0 mmol/L (21.0-32.0) 05/01/23 05:47 Anion Gap 6 (5-15) 05/01/23 05:47 BUN 6 mg/dL (7-18) L 05/01/23 05:47 Creatinine 0.59 mg/dL (0.55-1.02) 05/01/23 05:47 Est GFR (MDRD) Af Amer 127 mL/min (>60) 05/01/23 05:47 Est GFR (MDRD) Non-Af 105 mL/min (>60) 05/01/23 05:47 BUN/Creatinine Ratio 10.1 RATIO (10-20) 05/01/23 05:47 Glucose 96 mg/dL (74-106) 05/01/23 05:47 Microbiology Microbiology: Microbiology 04/29/23 19:30 Nasal Secretion SARS-CoV-2 & FLU Antigen (Rapid) - Final Dosing Weight Weight used for dosin kg Estimated Creatinine Clearance Estimated Creatinine Clearance: 44mls/min Goal Trough Goal Trough: 15-20 mcg/mL Pharmacy Plan for Drug Dosing Pharmacy Plan for Drug Dosing: NEW START IV VANCOMYCIN Consulting Physician: Dr. Corcoran Indication: Infected Joint Goal Trough: 15-20 SrCr: 0.59 CrCl: 44 mls/min Comments: pt received a 2000mg dose in the ER on 04/29/23 at 2338 Vancomycin Dose: based on patients weight and renal function, recommend not reloading. recommend starting with 500mg q12h and checking a trough level prior to the 4th dose Pending Level: 05/02/23 at 2330 Pharmacy Service will continue to monitor and adjust dosing as required. Follow-Up Labs Follow-Up Labs: Trough: Vancomycin (05/02/23 at 2330)
[2023-05-01] MEDS: Vancomycin IV 500 MG/100 ML BAG 100 MG IV (13:03)
[2023-05-01 15:00] VITALS: BP 116/63; PULSE 87; RESP 15; TEMP 36.7; O2SAT 96
--- NOTE | 2023-05-01 15:15 | PN.HOSP_ITS ---
Reason for Visit Reason for Visit: Diagnoses Infection and inflammatory reaction due to internal left hip prosthesis, initial encounter (04/29/23) Presence of left artificial hip joint (04/29/23) Subjective Subjective Patient seen at bedside this morning. Sitting comfortably in bedside chair, conversing normally, no acute distress. Patient reports mild left hip pain this morning, improved from previous days. She denies any fevers or chills. Denies any other pain or discomfort at this time. No other acute concerns. Objective Data Objective Data Vital Signs: Vital Signs Temp Pulse Resp BP Pulse Ox O2 Del Method O2 Flow Rate 98 F 92 17 96/50 L 95 Room Air 3 05/01/23 09:08 05/01/23 09:08 05/01/23 09:08 05/01/23 09:08 05/01/23 09:08 05/01/23 14:00 04/30/23 05:43 Oxygen Flow Rate (L/min) 3 Oxygen Delivery Method Room Air Weight: 77.8 kg Body Mass Index (BMI) 28.5 Intake & Output: Intake and Output for Last 24 Hours 04/29/23 04/30/23 05/01/23 23:59 23:59 23:59 Intake Total 100 / 100 3540 / 3540 2885 / 2885 Output Total 1300 / 1300 800 / 800 Balance 100 / 100 2240 / 2240 2085 / 2085 Lab / Micro Data 05/01/23 05:47 05/01/23 05:47 Labs: Laboratory Results - last 24 hr 04/30/23 17:05: Urine Color Yellow, Urine Clarity Clear, Urine pH 7.0, Ur Specific [place] 1.005, Urine Protein 15 H, Urine Glucose (UA) Normal, Urine Ketones Negative, Urine Occult Blood 10 H, Urine Nitrite Negative, Urine Bilirubin Negative, Urine Urobilinogen 1 H, Ur Leukocyte Esterase 500 H, Urine RBC 0 SEEN, Urine WBC 0-5 SEEN, Ur Squamous Epith Cells 0-5 SEEN, Urine Bacteria 0 SEEN, Urine Mucus 0 SEEN 05/01/23 05:47: WBC 18.3 H, RBC 2.82 L, Hgb 8.5 L, Hct 28.4 L, MCV 100.7 H, MCH 30.1, MCHC 29.9 L, RDW Std Deviation 51.0 H, RDW Coeff of Edwar 13.5, Plt Count 225, MPV 11.0, Immature Gran % (Auto) 0.700, Neut % (Auto) 68.1, Lymph % (Auto) 8.8 L, [place] % (Auto) 21.9 H, Eos % (Auto) 0.4, Baso % (Auto) 0.1, Absolute Neuts (auto) 12.5 H, Absolute Lymphs (auto) 1.61, Nucleated RBC % 0, Diff Path Review September foll, Sodium 140, Potassium 3.2 L, Chloride 111 H, Carbon Dioxide 23.0, Anion Gap 6, BUN 6 L, Creatinine 0.59, Estim Creat Clear Calc 44.41, Est GFR (MDRD) Af Amer 127, Est GFR (MDRD) Non-Af 105, BUN/Creatinine Ratio 10.1, Glucose 96, Calcium 7.8 L, Phosphorus 2.7, Magnesium 2.0 Micro: Microbiology 04/29/23 19:30 Nasal Secretion SARS-CoV-2 & FLU Antigen (Rapid) - Final Physical Exam Const alert, oriented x3, no apparent distress and average body habitus Constitutional Narrative: Pleasant elderly female, sitting comfortably in bedside chair, conversing normally, no acute distress. General Appearance: cooperative and comfortable HEENT normocephalic, head/scalp atraumatic, hearing grossly normal bilaterally, nasal mucous membranes and turbinates normal and moist oral mucous membranes Eyes PERRL, EOMs intact bilaterally and conjunctivae normal Neck full ROM, no lymphadenopathy and supple Lymph Lymphatic: no lymphadenopathy noted Chest inspection of chest normal Resp normal respiratory effort, normal air movement, no use of accessory muscles and clear to auscultation bilaterally Cardio regular rate, regular rhythm, no murmurs and peripheral pulses 2+ throughout GI normal to inspection, nondistended, normoactive bowel sounds, soft to palpation, non-tender and non-distended Back/Spine normal ROM Extremity normal to inspection and no pedal edema Extremity Narrative: Left hip mildly tender to the touch, no erythema or warmth on palpation. Skin no rashes or lesions noted Neuro moves all extremities and no focal motor deficits Speech: speech normal Psych mental status grossly normal Assessment & Plan Assessment/Plan (1) Severe sepsis: PLAN: Plan Patient is a 72-year-old female who presented to [facility] ED on 04/29/2023 with concern for left hip prosthetic joint infection. 1. Concern for left hip prosthetic joint infection, history of revision of t otal replacement of left hip joint, sepsis without shock Febrile to 101.9 F, lactic acid 2.6, WBC count 23, elevated CRP, suspected left hip source of infection on admission. Initially with left fracture with left hip nail fixation on 09/14/2022. Recently required removal of antibiotic spacer and placement of partial replacement of left hip a few weeks ago. Was on oral antibiotics with doxycycline, cultures from that surgery remain negative. ? Orthopedic surgery following. Low likelihood of deep prosthetic joint infection. Okay for home on oral antibiotics x 14 days from Ortho standpoint, follow-up next week with orthopedics for wound check. Patient unfortunately missed doses of antibiotics while admitted, will give vancomycin/Zosyn on 05/01 and 05/02 morning, then plan to transition to p.o. antibiotics for discharge on afternoon of 05/02. 2. Debility ? PT/OT/case management following. Plan for home with home health care on discharge. Chronic medical conditions: ? Parkinson's disease: Continue home carbidopa/levodopa, Celexa. ? Hypothyroidism: Continue home Synthroid. ? GERD: Continue home PPI. ? RA: Not on home medications. ? Anemia: Stable at baseline. DVT prophylaxis: Heparin subcu CODE STATUS: DNR CCA, DO NOT INTUBATE Expected disposition: Home with home health care, 1 to 2 days Total clinical time spent by myself addressing the patient's medical issues, reviewing all the data, and collaborating with patient's care team: 35 minutes. Charges/Coding Visit Charges Inpatient E&M: 92320 Subs Hosp L2
[2023-05-01] MEDS: Piperacil/Tazobactam 3.375 GM in 0.9% Normal Saline (50mL MB+) 50 ML IV ×2 (15:29→20:55)
--- NOTE | 2023-05-01 15:35 | WOUNDNOTE ---
wound photo: left hip
[2023-05-01 20:50] VITALS: BP 118/66; PULSE 92; RESP 18; TEMP 37.5; O2SAT 93
[2023-05-01] MEDS: OLANZapine 2.5 MG Tablet 7.5 MG PO (20:55)
[2023-05-01] MEDS: Pravastatin 40 MG Tablet PO (20:55)
[2023-05-02] MEDS: Vancomycin IV 500 MG/100 ML BAG 100 MG IV ×2 (00:17→12:03)
[2023-05-02 02:55] VITALS: BP 105/59; PULSE 75; RESP 18; TEMP 36.7; O2SAT 94
[2023-05-02] MEDS: Acetaminophen 500 MG Tablet 1000 MG PO ×3 (06:45→20:57)
[2023-05-02] MEDS: Piperacil/Tazobactam 3.375 GM in 0.9% Normal Saline (50mL MB+) 50 ML IV ×3 (06:45→20:48)
[2023-05-02] MEDS: Levothyroxine 75 MCG Tablet PO (06:46)
[2023-05-02] MEDS: Carbidopa/Levodopa 25/100 Tablet PO ×3 (06:46→17:10)
[2023-05-02 07:34] LABS: Pathologist Review Reviewed
[2023-05-02 07:51] LABS: Pathologist Review Reviewed
[2023-05-02 08:03] VITALS: BP 115/61; PULSE 85; RESP 16; TEMP 36.9; O2SAT 92
[2023-05-02 08:05] VITALS: BP 115/61; PULSE 85; RESP 16; TEMP 36.8; O2SAT 92
[2023-05-02] MEDS: Potassium Chloride Oral Tablet 20 MEQ 40 MEQ PO (08:16)
[2023-05-02] MEDS: Pantoprazole Sodium 40 MG Tablet PO (08:17)
[2023-05-02] MEDS: Potassium Chloride Oral Tablet 20 MEQ PO ×2 (08:17→17:10)
[2023-05-02] MEDS: Heparin Injection (Vial) 5,000 UNIT/ML VIAL 5000 UNIT SC ×2 (08:17→20:56)
[2023-05-02] MEDS: Citalopram 20 MG Tablet PO (08:18)
[2023-05-02] MEDS: Nystatin Powder 15gm Bottle 1 APPLIC TOPICAL ×2 (08:18→20:58)
[2023-05-02] MEDS: Cholecalciferol (VIT D3) 25 MCG TABLET (1,000 UNITS) PO (08:18)
[2023-05-02] MEDS: Ursodiol 250 MG Tablet PO ×2 (08:18→17:10)
[2023-05-02] MEDS: Senna/Docusate Sodium 1 Tablet 2 TABLET PO ×2 (08:18→20:56)
[2023-05-02] MEDS: Ensure Plus High Protein 120 ML LIQUID PO (08:19)
[2023-05-02 08:48] VITALS: O2SAT 97
[2023-05-02 09:43] LABS: Pathologist Review Reviewed
--- NOTE | 2023-05-02 11:00 | CASEMGMT ---
JOSE ASH chart review: Patient was admitted 04/12-04/15/23 for left total hip revision. See assessment from 04/14/23. Patient was discharged to home with [facility] and PO doxycycline. Patient returned after fall and fever at home. Patient was admitted for concern for deep prosthetic joint infection. Per ortho patient can discharge on continued PO doxycycline. JOSE ASH in to discuss discharge needs and readmission. Patient states she had follow-up with PCP. Patient states she was taking medications as prescribed. Patient wishes to return home with [facility]. Patient had no further questions or concerns. CM will continue to follow this patient and plan for a safe discharge.
--- NOTE | 2023-05-02 11:50 | CASEMGMT ---
SW met with patient as physician feels patient would benefit from SNF stay. Patient is declining SNF stay as she has home health. SW asked patient if she thinks that will be enough and patient stated she thinks it will be. Fatou RENAE
[2023-05-02] MEDS: Ferrous Sulfate 325 MG Tablet PO (12:03)
--- NOTE | 2023-05-02 14:20 | CASEMGMT ---
Discharge Planning A list of SNF providers including quality and resource use data and consistent with the patient's preferred geographic region, medical needs, and insurance network was created in [employer] Guide.? This list was provided to the RN MIHIR. Domenica Santos, Discharge Planning Asst.
--- NOTE | 2023-05-02 14:26 | CASEMGMT ---
Addendum entered by Fatou Downs 05/02/23 15:21: TCU accepted patient and will start the pre-cert. SW notified patient and physician. Plan: d/c to [facility] TCU pending insurance approval. Fatou RENAE Original Note: SW was informed that patient is agreeable to SNF stay. SW met with patient and her . Introduced self and role at [facility]. Their only choice is TCU. Patient's said if TCU cannot take patient then he will take patient home with home health. SW let them know SW will make a referral and let them know TCU's response. SW made a referral to [facility] TCU. Fatou RENAE
[2023-05-02 14:59] VITALS: BP 132/102; PULSE 87; RESP 16; TEMP 36.6; O2SAT 99
--- NOTE | 2023-05-02 18:05 | PCM.PN.HOSP ---
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 Sitting comfortably bedside chair, conversing normally, no acute distress. Appears similar to yesterday. Patient did have a recorded low-grade fever of 99.5 overnight. States she did experience mild fevers and chills overnight that had resolved by this morning. She has been eating and drinking well. She is tolerating the IV antibiotics without issue. She did work with physical therapy as able but has a fairly limited functional status at this point. However, patient has a good support system at home and previously had home health care, and she is adamant that she wants to go home on discharge with home health care. No other acute concerns morning. Objective Data Objective Data Vital Signs: Vital Signs Temp Pulse Resp BP Pulse Ox O2 Del Method O2 Flow Rate 97.9 F 87 16 132/102 H 99 Room Air 3 05/02/23 14:59 05/02/23 14:59 05/02/23 14:59 05/02/23 14:59 05/02/23 14:59 05/02/23 14:59 04/30/23 05:43 Oxygen Flow Rate (L/min) 3 Oxygen Delivery Method Room Air Weight: 77.8 kg Body Mass Index (BMI) 28.5 Intake & Output: Intake and Output for Last 24 Hours 04/30/23 05/01/23 05/02/23 23:59 23:59 23:59 Intake Total 3540 / 3540 3055 / 3055 300 / 300 Output Total 1300 / 1300 2900 / 2900 2300 / 2300 Balance 2240 / 2240 155 / 155 -2000 / -1999 Lab / Micro Data 05/01/23 05:47 05/01/23 05:47 Labs: Laboratory Results - last 24 hr 04/29/23 19:25: Diff Path Review Reviewed 04/30/23 06:17: Diff Path Review Reviewed 05/01/23 05:47: Diff Path Review Reviewed Micro: Microbiology 04/30/23 17:05 Urine, Clean Catch Urine Culture - Preliminary Culture exhibits no growth. 04/29/23 20:03 Blood Culture (Wb) - Right Forearm Blood Culture - Preliminary No growth in 48 hours. 04/29/23 19:25 Blood Culture (Wb) - Anticubital Left Blood Culture - Preliminary No growth in 48 hours. 04/29/23 19:30 Nasal Secretion SARS-CoV-2 & FLU Antigen (Rapid) - Final Physical Exam Const alert, oriented x3, no apparent distress and average body habitus Constitutional Narrative: Pleasant elderly female, sitting comfortably in bedside chair, conversing normally, no acute distress. General Appearance: cooperative and comfortable HEENT normocephalic, head/scalp atraumatic, hearing grossly normal bilaterally, nasal mucous membranes and turbinates normal and moist oral mucous membranes Eyes PERRL, EOMs intact bilaterally and conjunctivae normal Neck full ROM, no lymphadenopathy and supple Lymph Lymphatic: no lymphadenopathy noted Chest inspection of chest normal Resp normal respiratory effort, normal air movement, no use of accessory muscles and clear to auscultation bilaterally Cardio regular rate, regular rhythm, no murmurs and peripheral pulses 2+ throughout GI normal to inspection, nondistended, normoactive bowel sounds, soft to palpation, non-tender and non-distended Back/Spine normal ROM Extremity normal to inspection and no pedal edema Extremity Narrative: Left hip mildly tender to the touch, no erythema or warmth on palpation. Skin no rashes or lesions noted Neuro moves all extremities and no focal motor deficits Speech: speech normal Psych mental status grossly normal Assessment & Plan Assessment/Plan (1) Severe sepsis: PLAN: Plan Patient is a 72-year-old female who presented to [facility] ED on 04/29/2023 with concern for left hip prosthetic joint infection. 1. Concern for left hip prosthetic joint infection, history of revision of total replacement of left hip joint; sepsis without shock, improving Febrile to 101.9 F, lactic acid 2.6, WBC count 23, suspected left hip source of infection on admission. Initially with left fracture with left hip nail fixation on 09/14/2022. Recently required removal of antibiotic spacer and placement of partial replacement of left hip a few weeks ago. Was on oral antibiotics with doxycycline, cultures from that surgery remain negative. ? Orthopedic surgery followed. Low likelihood of deep prosthetic joint infection. Okay for home on oral antibiotics x 14 days from Ortho standpoint, follow-up next week with orthopedics for wound check. Patient unfortunately missed doses of IV antibiotics, restarted on IV vancomycin and Zosyn on 05/01. Had low-grade fever overnight on 05/01. Patient preferred to remain on IV antibiotics till tomorrow and reassess then. If patient has remained afebrile, will plan to transition to p.o. antibiotics tomorrow in preparation for discharge home. 2. Debility ? PT/OT/case management following. Planning for home with home health care on discharge. Chronic medical conditions: ? Parkinson's disease: Continue home carbidopa/levodopa, Celexa. ? Hypothyroidism: Continue home Synthroid. ? GERD: Continue home PPI. ? RA: Not on home medications. ? Anemia: Stable at baseline. DVT prophylaxis: Heparin subcu CODE STATUS: DNR CCA, DO NOT INTUBATE Expected disposition: Home with home health care, 1 to 2 days Total clinical time spent by myself addressing the patient's medical issues, reviewing all the data, and collaborating with patient's care team: 35 minutes. Charges/Coding Visit Charges Inpatient E&M: 31417 Subs Hosp L2
[2023-05-02 20:52] VITALS: BP 137/72; PULSE 89; RESP 18; TEMP 37.2; O2SAT 97
[2023-05-02] MEDS: OLANZapine 2.5 MG Tablet 7.5 MG PO (20:57)
[2023-05-02] MEDS: Pravastatin 40 MG Tablet PO (20:58)
[2023-05-02 23:27] LABS: Vancomycin, Trough Level 11.3 ug/mL (5.0-15.0)
--- NOTE | 2023-05-02 23:41 | PCM.RX.CS ---
Consult Antibiotic Management Pharmacy has been consulted to manage selected antiobiotic: Vancomycin Type of Intervention Type of Consult: Follow-up Labs Labs: Sodium 140 mmol/L (136-145) 05/01/23 05:47 Potassium 3.2 mmol/L (3.5-5.1) L 05/01/23 05:47 Chloride 111 mmol/L (98-107) H 05/01/23 05:47 Carbon Dioxide 23.0 mmol/L (21.0-32.0) 05/01/23 05:47 Anion Gap 6 (5-15) 05/01/23 05:47 BUN 6 mg/dL (7-18) L 05/01/23 05:47 Creatinine 0.59 mg/dL (0.55-1.02) 05/01/23 05:47 Est GFR (MDRD) Af Amer 127 mL/min (>60) 05/01/23 05:47 Est GFR (MDRD) Non-Af 105 mL/min (>60) 05/01/23 05:47 BUN/Creatinine Ratio 10.1 RATIO (10-20) 05/01/23 05:47 Glucose 96 mg/dL (74-106) 05/01/23 05:47 Vancomycin Trough 11.3 ug/mL (5.0-15.0) 05/02/23 23:00 Microbiology Microbiology: Microbiology 04/30/23 17:05 Urine, Clean Catch Urine Culture - Preliminary Culture exhibits no growth. 04/29/23 20:03 Blood Culture (Wb) - Right Forearm Blood Culture - Preliminary No growth in 48 hours. 04/29/23 19:25 Blood Culture (Wb) - Anticubital Left Blood Culture - Preliminary No growth in 48 hours. 04/29/23 19:30 Nasal Secretion SARS-CoV-2 & FLU Antigen (Rapid) - Final Dosing Weight Weight used for dosin.8 kg Estimated Creatinine Clearance Estimated Creatinine Clearance: 44 Goal Trough Goal Trough: 15-20 mcg/mL Pharmacy Plan for Drug Dosing Pharmacy Plan for Drug Dosing: Vancomycin trough level of 11.3, drawn 11hrs post-dose, was below the target range of 15-20. Will increase dose to 750mg q12h, and re-draw a trough prior to fourth dose of the new regimen. Pharmacy Service will continue to monitor and adjust dosing as required. Follow-Up Labs Follow-Up Labs: Trough: Vancomycin Date/Time Labs Ordered Labs to be done on [date and time ordered]: 05/04/23 @4901
[2023-05-03] MEDS: Vancomycin HCl 750 MG in 0.9% Normal Saline (250mL Bag) 250 ML 250 MG IV ×2 (01:05→11:22)
[2023-05-03 02:57] VITALS: BP 108/57; PULSE 69; RESP 18; TEMP 36.7; O2SAT 93
[2023-05-03] MEDS: Levothyroxine 75 MCG Tablet PO (06:08)
[2023-05-03] MEDS: Acetaminophen 500 MG Tablet 1000 MG PO ×2 (06:08→14:10)
[2023-05-03] MEDS: Carbidopa/Levodopa 25/100 Tablet PO ×2 (06:08→11:22)
[2023-05-03] MEDS: Piperacil/Tazobactam 3.375 GM in 0.9% Normal Saline (50mL MB+) 50 ML IV (06:12)
[2023-05-03 09:33] VITALS: BP 116/62; PULSE 78; RESP 18; TEMP 36.7; O2SAT 99
[2023-05-03] MEDS: Ursodiol 250 MG Tablet PO (09:36)
[2023-05-03] MEDS: Potassium Chloride Oral Tablet 20 MEQ PO (09:36)
[2023-05-03] MEDS: Pantoprazole Sodium 40 MG Tablet PO (09:36)
[2023-05-03] MEDS: Senna/Docusate Sodium 1 Tablet 2 TABLET PO (09:37)
[2023-05-03] MEDS: Cholecalciferol (VIT D3) 25 MCG TABLET (1,000 UNITS) PO (09:37)
[2023-05-03] MEDS: Citalopram 20 MG Tablet PO (09:37)
[2023-05-03] MEDS: Nystatin Powder 15gm Bottle 1 APPLIC TOPICAL (09:38)
[2023-05-03] MEDS: Menthol/Lanolin/Calamine/Znox 113 GM Tube 1 APPLIC TOPICAL (09:38)
[2023-05-03] MEDS: Ensure Plus High Protein 120 ML LIQUID PO (09:42)
[2023-05-03 10:44] LABS: Hematocrit 32.3 % (37-47); Hemoglobin 9.1 g/dL (12.0-15.0); Mean Corp Hgb Conc 28.2 g/dL (32-36); Mean Corpuscular Hgb 29.4 pg (27.0-32.0); Mean Corpuscular Volume 104.5 fL (81-99); Mean Platelet Vol. 11.4 fl (6.2-12.0); Platelet Count 266 K/mm3 (150-450); RBC Distribution Width CV 13.5 % (11.6-14.6); RBC Distribution Width SD 52.1 fl (35.1-43.9); Red Blood Count 3.09 M/mm3 (4.2-5.4); White Blood Count 9.9 K/mm3 (4.4-11.0)
[2023-05-03] MEDS: Ferrous Sulfate 325 MG Tablet PO (11:23)
--- NOTE | 2023-05-03 11:40 | CASEMGMT ---
Patient was approved for TCU. SW notified physician. Fatou RENAE
[2023-05-03 11:52] LABS: Anion Gap 10 (5-15); BUN 5 mg/dL (7-18); BUN/Creat Ratio 5.9 RATIO (10-20); Calcium,Total 8.3 mg/dL (8.5-10.1); Chloride 109 mmol/L (98-107); Creatinine, Serum 0.85 mg/dL (0.55-1.02); EST Glomerular Filtration Rate 70 mL/min (>60); Est Glom Filt Rate - Afr Amer 84 mL/min (>60); Estimated Creatinine Clearance 52.25 ml/min; Glucose 104 mg/dL (74-106); Potassium 3.4 mmol/L (3.5-5.1); Sodium Level 139 mmol/L (136-145)
--- NOTE | 2023-05-03 13:51 | DCINST_ITS ---
Discharge Instructions Diet Discharge Diet: No restrictions Activity Discharge Activity: No Restrictions Weight Bearing Status: Weight bearing as tolerated Follow Up Care Please Follow Up With: Raji Herrmann Chi, MD When: As needed Test Results: Test results from this visit will be discussed in further detail at your follow- up appointment, if applicable. Pending Tests Upon Discharge: None Discharge Plan Admission Admit Date/Time: 04/29/23 22:28 Primary Reason for Your Visit: Concern for left hip prosthetic joint infection Attending Provider: Wallace Corcoran Primary Care Provider: Raji Herrmann Chi Consulting Providers: Erik Mohan; Sanjay Lance; Tamir Lynne Instructions Additional Instructions / Restrictions: Please take 12 more days of Augmentin to complete 14-day course of antibiotics total. Take Imodium as needed while on antibiotics for suspected antibiotic induced diarrhea. Follow-up with your primary care doctor after your stay at rehab as needed. Follow-up with orthopedic surgery as indicated by their office. Discharge Orders/Prescriptions Prescriptions: New loperamide 2 mg Capsule 2 mg PO Q4H PRN PRN (Reason: DIARRHEA/LOOSE STOOLS) 14 Days Qty: 68 0RF amoxicillin-pot clavulanate 875-125 mg tablet 1 tab PO BID 12 Days Qty: 24 0RF Continued pravastatin 40 MG tablet 40 mg PO QHS citalopram 40 mg tablet 20 mg PO DAILY Patient Comments: confirmed with daughter pt is taking 20 mg. olanzapine 7.5 mg tablet 7.5 mg PO QHS potassium chloride 20 mEq tablet,ER particles/crystals 20 meq PO BID levothyroxine 75 mcg tablet 75 mcg PO DAILY carbidopa-levodopa 25-100 mg tablet 1 tab PO TID omeprazole 40 mg capsule,delayed release(DR/EC) 40 mg PO DAILY ferrous sulfate 325 mg (65 mg iron) tablet 325 mg PO DAILY Patient Comments: Take 1 tablet by mouth every morning ursodiol 250 mg Tablet 250 mg PO BID Qty: 60 0RF cholecalciferol (vitamin D3) [Vitamin D3] 25 mcg (1,000 unit) capsule 25 mcg PO DAILY Fiber Therapy(psyl seed-sugar) Powder 1 tbsp PO DAILY albuterol sulfate 90 mcg/actuation HFA aerosol inhaler 2 inh INHALATION Q6H PRN (Reason: shortness of breath or wheezing) Patient Comments: INHALE 2 PUFFS BY MOUTH SIX TIMES DAILY NEEDED FOR SHORTNESS OF BREATH victor mafine HCl 250 mg tablet 250 mg PO DAILY Ensure Plus High Protein 0.08 gram-1.5 kcal/mL Liquid 120 ml PO DAILY acetaminophen 500 mg Tablet 1,000 mg PO Q8 Qty: 0 0RF ondansetron 4 mg tablet,disintegrating 4 mg PO Q8H PRN (Reason: nausea and vomiting) Qty: 20 0RF aspirin 81 mg tablet,delayed release (DR/EC) 81 mg PO BID Discontinued docusate sodium [DOK] 100 mg capsule 100 mg PO PRN famotidine 20 mg Tablet 20 mg PO DAILY 30 Days Qty: 30 0RF oxycodone 5 mg Tablet 5 - 10 mg PO Q4H PRN PRN (Reason: Pain Score 4-10) 5 Days Qty: 42 0RF sennosides-docusate sodium [Stool Softener-Stimulant Laxat] 8.6-50 mg Tablet 2 tab PO BID 5 Days Qty: 20 0RF Referrals / Follow Up: Raji Herrmann Chi, MD [Primary Care Provider] - Disposition Disposition (needs filled in before D/C Order can be placed): Senior Living Facility
--- NOTE | 2023-05-03 14:00 | PCM.DC.SUM ---
Providers Date of Admission: 04/29/23 Date of Discharge: 05/03/23 Primary Care Physician: Dr. 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 Routine Comment: Reason for Consult:: Left hip wound Comments:: Dressing changes vs wound vac Reason For Visit: WOUND SITE INFECTION Diagnosis Discharge Diagnosis (1) Severe sepsis: Status: Acute Code(s): A41.9 - Sepsis, unspecified organism; R65.20 - Severe sepsis without septic shock Medications at Discharge Home Medications pravastatin 40 mg tablet 40 mg PO QHS CHOLESTEROL 03/22/17 carbidopa 25 mg-levodopa 100 mg tablet 1 tab PO TID parkinsons 09/13/22 citalopram 40 mg tablet 20 mg PO DAILY DEPRESSION 09/13/22 levothyroxine 75 mcg tablet 75 mcg PO DAILY THYROID 09/13/22 olanzapine 7.5 mg tablet 7.5 mg PO QHS MOOD 09/13/22 omeprazole 40 mg capsule,delayed release 40 mg PO DAILY ACID REFLUX 09/13/22 potassium chloride 20 mEq tablet,extended release(part/cryst) 20 meq PO BID SUPPLEMENT 09/13/22 ferrous sulfate 325 mg (65 mg iron) tablet 325 mg PO DAILY supplimentation 11/24/22 ursodiol 250 mg tablet 250 mg PO BID URINATION #60 tabs 12/01/22 albuterol sulfate 90 mcg/actuation aerosol inhaler 2 inh inhalation Q6H PRN shortness of breath or wheezing 03/22/23 cholecalciferol (vitamin D3) 25 mcg (1,000 unit) capsule (Vitamin D3) 25 mcg PO DAILY SUPPLEMENT 03/22/23 food supplemt, lactose-reduced 0.08 gram-1.5 kcal/mL oral liquid (Ensure Plus High Protein) 120 ml PO DAILY SUPPLEMENT 03/22/23 psyllium seed (sugar) oral powder (Fiber Therapy (psyllium seed-sucrose) oral powder) 1 tbsp PO DAILY SUPPLEMENT 03/22/23 terbinafine HCl 250 mg tablet 250 mg PO DAILY TOE FUNGUS 03/22/23 acetaminophen 500 mg tablet 1,000 mg (2 x 500 mg) PO Q8 #0 tabs 04/15/23 ondansetron 4 mg disintegrating tablet 4 mg PO Q8H PRN nausea and vomiting #20 tabs 04/15/23 aspirin 81 mg tablet,delayed release 81 mg PO BID [facility] 04/29/23 amoxicillin 875 mg-potassium clavulanate 125 mg tablet 1 tab PO BID 12 days #24 tabs 05/03/23 loperamide 2 mg capsule 2 mg PO Q4H PRN PRN DIARRHEA/LOOSE STOOLS 14 days #68 caps 05/03/23 Hospital Course Operations None Procedures None, EKG and - (Chest x-ray, pelvis x-ray, femur x-ray) Summary of Care Provided Minutes Spent on Discharge: 35 Hospital Course: Patient is a 72-year-old female who presented to [facility] ED on 04/29/2023 with concern for left hip prosthetic joint infection. Hospital course as noted below. Patient ultimately was discharged to [facility] for custodial on 05/03 in stable condition. 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 Initially with left fracture with left hip nail fixation on 09/14/2022. Recently required removal of antibiotic spacer and placement of partial replacement of left hip a few weeks ago. Was on oral antibiotics with doxycycline, cultures from that surgery remain negative. ? Orthopedic surgery followed. Low likelihood of deep prosthetic joint infection. Okay for home on oral antibiotics x 14 days from Ortho standpoint, follow-up next week with orthopedics for wound check. Patient was on IV vancomycin and Zosyn during hospitalization, discharged on Augmentin with end date of 05/14. Pain management with scheduled Tylenol. Diarrhea: Started on day prior to discharge. Suspect secondary to antibiotics. Imodium as needed prescribed on discharge. Debility: PT/OT/case management followed. Patient discharged to [facility] for custodial in stable condition. Chronic medical conditions addressed during hospitalization: ? Parkinson's disease: Continued home carbidopa/levodopa, Celexa. ? Hypothyroidism: Continued home Synthroid. ? GERD: Continued home PPI. ? RA: Not on home medications. ? Anemia: Stable at baseline. Total clinical time spent by myself addressing the patient's discharge needs: 35 minutes. Physical Exam Const alert, oriented x3, no apparent distress and average body habitus Constitutional Narrative: Pleasant elderly female, sitting comfortably in bedside chair, conversing normally, no acute distress. General Appearance: cooperative and comfortable HEENT normocephalic, head/scalp atraumatic, hearing grossly normal bilaterally, nasal mucous membranes and turbinates normal and moist oral mucous membranes Eyes PERRL, EOMs intact bilaterally and conjunctivae normal Neck full ROM, no lymphadenopathy and supple Lymph Lymphatic: no lymphadenopathy noted Chest inspection of chest normal Resp normal respiratory effort, normal air movement, no use of accessory muscles and clear to auscultation bilaterally Cardio regular rate, regular rhythm, no murmurs and peripheral pulses 2+ throughout GI normal to inspection, nondistended, normoactive bowel sounds, soft to palpation, non-tender and non-distended Back/Spine normal ROM Extremity normal to inspection and no pedal edema Extremity Narrative: Left hip mildly tender to the touch, no erythema or warmth on palpation. Skin no rashes or lesions noted Neuro moves all extremities and no focal motor deficits Speech: speech normal Psych mental status grossly normal Weight / BMI Weight Weight: 77.8 kg Body Mass Index (BMI) 28.5 ABG / Lab / Microbiology Data 05/03/23 10:10 05/03/23 10:10 Laboratory: Laboratory Results - last 24 hr 05/02/23 23:00: Vancomycin Trough 11.3 05/03/23 10:10: WBC 9.9, RBC 3.09 L, Hgb 9.1 L, Hct 32.3 L, MCV 104.5 H, MCH 29.4, MCHC 28.2 L D, RDW Std Deviation 52.1 H, RDW Coeff of Edwar 13.5, Plt Count 266, MPV 11.4, Sodium 139, Potassium 3.4 L, Chloride 109 H, Carbon Dioxide 20.0 L, Anion Gap 10, BUN 5 L, Creatinine 0.85, Estim Creat Clear Calc 52.25, Est GFR (MDRD) Af Amer 84, Est GFR (MDRD) Non-Af 70, BUN/Creatinine Ratio 5.9 L, Glucose 104, Calcium 8.3 L Microbiology: Microbiology 04/30/23 17:05 Urine, Clean Catch Urine Culture - Final Culture exhibits no growth. 04/29/23 20:03 Blood Culture (Wb) - Right Forearm Blood Culture - Preliminary No growth in 48 hours. 04/29/23 19:25 Blood Culture (Wb) - Anticubital Left Blood Culture - Preliminary No growth in 48 hours. 04/29/23 19:30 Nasal Secretion SARS-CoV-2 & FLU Antigen (Rapid) - Final D/C Instructions Discharge Diet: No restrictions Weight Bearing Status: Weight bearing as tolerated Pending Tests Upon Discharge: None Please Follow Up With: Raji Herrmann Chi, MD When: As needed Meaningful Use Info Meaningful Use Diagnoses (Choose all that apply): None applicable Discharge Plan Admission Admit Date/Time: 04/29/23 22:28 Primary Reason for Your Visit: Concern for left hip prosthetic joint infection Attending Provider: Wallace Corcoran Primary Care Provider: Raji Herrmann Chi Consulting Providers: Erik Mohan; Sanjay Lance; Tamir Lynne Instructions Additional Instructions / Restrictions: Please take 12 more days of Augmentin to complete 14-day course of antibiotics total. Take Imodium as needed while on antibiotics for suspected antibiotic induced diarrhea. Follow-up with your primary care doctor after your stay at rehab as needed. Follow-up with orthopedic surgery as indicated by their office. Discharge Orders/Prescriptions Prescriptions: New loperamide 2 mg Capsule 2 mg PO Q4H PRN PRN (Reason: DIARRHEA/LOOSE STOOLS) 14 Days Qty: 68 0RF amoxicillin-pot clavulanate 875-125 mg tablet 1 tab PO BID 12 Days Qty: 24 0RF Continued pravastatin 40 MG tablet 40 mg PO QHS citalopram 40 mg tablet 20 mg PO DAILY Patient Comments: confirmed with daughter pt is taking 20 mg. olanzapine 7.5 mg tablet 7.5 mg PO QHS potassium chloride 20 mEq tablet,ER particles/crystals 20 meq PO BID levothyroxine 75 mcg tablet 75 mcg PO DAILY carbidopa-levodopa 25-100 mg tablet 1 tab PO TID omeprazole 40 mg capsule,delayed release(DR/EC) 40 mg PO DAILY ferrous sulfate 325 mg (65 mg iron) tablet 325 mg PO DAILY Patient Comments: Take 1 tablet by mouth every morning ursodiol 250 mg Tablet 250 mg PO BID Qty: 60 0RF cholecalciferol (vitamin D3) [Vitamin D3] 25 mcg (1,000 unit) capsule 25 mcg PO DAILY Fiber Therapy(psyl seed-sugar) Powder 1 tbsp PO DAILY albuterol sulfate 90 mcg/actuation HFA aerosol inhaler 2 inh INHALATION Q6H PRN (Reason: shortness of breath or wheezing) Patient Comments: INHALE 2 PUFFS BY MOUTH SIX TIMES DAILY NEEDED FOR SHORTNESS OF BREATH terbinafine HCl 250 mg tablet 250 mg PO DAILY Ensure Plus High Protein 0.08 gram-1.5 kcal/mL Liquid 120 ml PO DAILY acetaminophen 500 mg Tablet 1,000 mg PO Q8 Qty: 0 0RF ondansetron 4 mg tablet,disintegrating 4 mg PO Q8H PRN (Reason: nausea and vomiting) Qty: 20 0RF aspirin 81 mg tablet,delayed release (DR/EC) 81 mg PO BID Discontinued docusate sodium [DOK] 100 mg capsule 100 mg PO PRN famotidine 20 mg Tablet 20 mg PO DAILY 30 Days Qty: 30 0RF oxycodone 5 mg Tablet 5 - 10 mg PO Q4H PRN PRN (Reason: Pain Score 4-10) 5 Days Qty: 42 0RF sennosides-docusate sodium [Stool Softener-Stimulant Laxat] 8.6-50 mg Tablet 2 tab PO BID 5 Days Qty: 20 0RF Referrals / Follow Up: Raji Herrmann Chi, MD [Primary Care Provider] - Disposition Disposition (needs filled in before D/C Order can be placed): Longterm Facility Charges/Coding Visit Charges Inpatient E&M: 35208 Disch Hosp >30min
--- NOTE | 2023-05-03 14:06 | PCM.TXEXTCAR ---
Diet Diet Order/Speech Therapy: 04/30/23 09:18 Diet: Regular - General Is pt able to select menu?: Yes Routine Orders/Code Status Code Status: DNRCC-A (DO NOT INTUBATE) Wound(s) left hip: Wound Type: healing incision Dressing Change: applied dry dressing Therapies Weight Bearing: Weight bearing as tolerated Physical Therapy: Eval and Treat Occupational Therapy: Eval and Treat Problem/Diagnosis (1) Debility: Status: Acute Code(s): R53.81 - Other malaise (2) Left hip pain: Status: Acute Code(s): M25.552 - Pain in left hip (3) Sepsis without septic shock: Status: Acute Code(s): A41.9 - Sepsis, unspecified organism Plan Patient is a 72-year-old female who presented to [facility] ED on 04/29/2023 with concern for left hip prosthetic joint infection. Hospital course as noted below. Patient ultimately was discharged to [facility] for custodial on 05/03 in stable condition. 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 Initially with left fracture with left hip nail fixation on 09/14/2022. Recently required removal of antibiotic spacer and placement of partial replacement of left hip a few weeks ago. Was on oral antibiotics with doxycycline, cultures from that surgery remain negative. ? Orthopedic surgery followed. Low likelihood of deep prosthetic joint infection. Okay for home on oral antibiotics x 14 days from Ortho standpoint, follow-up next week with orthopedics for wound check. Patient was on IV vancomycin and Zosyn during hospitalization, discharged on Augmentin with end date of 05/14. Pain management with scheduled Tylenol. Diarrhea: Started on day prior to discharge. Suspect secondary to antibiotics. Imodium as needed prescribed on discharge. Debility: PT/OT/case management followed. Patient discharged to [facility] for custodial in stable condition. Chronic medical conditions addressed during hospitalization: ? Parkinson's disease: Continued home carbidopa/levodopa, Celexa. ? Hypothyroidism: Continued home Synthroid. ? GERD: Continued home PPI. ? RA: Not on home medications. ? Anemia: Stable at baseline. Total clinical time spent by myself addressing the patient's discharge needs: 35 minutes. Allergies/Procedures Done in Hospital Allergies linaclotide [From Linzess] Allergy (Mild, Verified 04/29/23 18:28) chest tightness histamine phosphate [From Histatrol] Allergy (Verified 04/29/23 18:28) Unknown Procedures: None, EKG and - (Chest x-ray, pelvis x-ray, femur x-ray) Type of Care/Length of Stay Estimated LOS: Convalescent Care Less Than 30 days Type of Care Needed: Skilled Rehab Potential: Fair Prognosis: Fair Additional Orders/Day of Discharge H&P will serve as current which was dated: 04/28/23 Day of Discharge: 05/03/23 Follow Up Care Please Follow Up With: Raji Herrmann Chi, MD Discharge Plan Admission Admit Date/Time: 04/29/23 22:28 Primary Reason for Your Visit: Concern for left hip prosthetic joint infection Attending Provider: Wallace Corcoran Primary Care Provider: Raji Herrmann Chi Consulting Providers: Erik Mohan; Sanjay Lance; Tamir Lynne Instructions Additional Instructions / Restrictions: Please take 12 more days of Augmentin to complete 14-day course of antibiotics total. Take Imodium as needed while on antibiotics for suspected antibiotic induced diarrhea. Follow-up with your primary care doctor after your stay at rehab as needed. Follow-up with orthopedic surgery as indicated by their office. Discharge Orders/Prescriptions Prescriptions: New loperamide 2 mg Capsule 2 mg PO Q4H PRN PRN (Reason: DIARRHEA/LOOSE STOOLS) 14 Days Qty: 68 0RF amoxicillin-pot clavulanate 875-125 mg tablet 1 tab PO BID 12 Days Qty: 24 0RF Continued pravastatin 40 MG tablet 40 mg PO QHS citalopram 40 mg tablet 20 mg PO DAILY Patient Comments: confirmed with daughter pt is taking 20 mg. olanzapine 7.5 mg tablet 7.5 mg PO QHS potassium chloride 20 mEq tablet,ER particles/crystals 20 meq PO BID levothyroxine 75 mcg tablet 75 mcg PO DAILY carbidopa-levodopa 25-100 mg tablet 1 tab PO TID omeprazole 40 mg capsule,delayed release(DR/EC) 40 mg PO DAILY ferrous sulfate 325 mg (65 mg iron) tablet 325 mg PO DAILY Patient Comments: Take 1 tablet by mouth every morning ursodiol 250 mg Tablet 250 mg PO BID Qty: 60 0RF cholecalciferol (vitamin D3) [Vitamin D3] 25 mcg (1,000 unit) capsule 25 mcg PO DAILY Fiber Therapy(psyl seed-sugar) Powder 1 tbsp PO DAILY albuterol sulfate 90 mcg/actuation HFA aerosol inhaler 2 inh INHALATION Q6H PRN (Reason: shortness of breath or wheezing) Patient Comments: INHALE 2 PUFFS BY MOUTH SIX TIMES DAILY NEEDED FOR SHORTNESS OF BREATH terbinafine HCl 250 mg tablet 250 mg PO DAILY Ensure Plus High Protein 0.08 gram-1.5 kcal/mL Liquid 120 ml PO DAILY acetaminophen 500 mg Tablet 1,000 mg PO Q8 Qty: 0 0RF ondansetron 4 mg tablet,disintegrating 4 mg PO Q8H PRN (Reason: nausea and vomiting) Qty: 20 0RF aspirin 81 mg tablet,delayed release (DR/EC) 81 mg PO BID Discontinued docusate sodium [DOK] 100 mg capsule 100 mg PO PRN famotidine 20 mg Tablet 20 mg PO DAILY 30 Days Qty: 30 0RF oxycodone 5 mg Tablet 5 - 10 mg PO Q4H PRN PRN (Reason: Pain Score 4-10) 5 Days Qty: 42 0RF sennosides-docusate sodium [Stool Softener-Stimulant Laxat] 8.6-50 mg Tablet 2 tab PO BID 5 Days Qty: 20 0RF Referrals / Follow Up: Raji Herrmann Chi, MD [Primary Care Provider] - Disposition Disposition (needs filled in before D/C Order can be placed): Custodial Facility Charges/Coding Visit Charges Inpatient E&M: 67555 Disch Hosp >30min
[2023-05-03] MEDS: Loperamide 2 MG Capsule PO (14:10)
[2023-05-03 14:45] VITALS: BP 105/59; PULSE 83; RESP 18; TEMP 36.5; O2SAT 99
--- NOTE | 2023-05-03 14:51 | NURSING ---
called report to [facility] on TCU
== END 2023-05-03 15:00 | disposition skilled nursing facility (03) | DRG 559 ==
LOC: ED 22:05 → PCU 22:40
PROVIDERS: Internal Medicine; Admitting Provider Internal Medicine; Emergency Provider Emergency Medicine; PCP Family Medicine Geriatric Medicine; Visit Provider Hospitalist
DX: T84.52XA Infection and inflammatory reaction due to internal left hip prosthesis, initial encounter (principal); A41.9 Sepsis, unspecified organism; R65.20 Severe sepsis without septic shock; T81.31XA Disruption of external operation (surgical) wound, not elsewhere classified, initial encounter; K52.1 Toxic gastroenteritis and colitis; L03.116 Cellulitis of left lower limb; C90.00 Multiple myeloma not having achieved remission; D63.8 Anemia in other chronic diseases classified elsewhere; M06.9 Rheumatoid arthritis, unspecified; E03.9 Hypothyroidism, unspecified; K21.9 Gastro-esophageal reflux disease without esophagitis; D50.9 Iron deficiency anemia, unspecified; K58.9 Irritable bowel syndrome, unspecified; E78.00 Pure hypercholesterolemia, unspecified; E87.6 Hypokalemia; K59.03 Drug induced constipation; T40.2X5A Adverse effect of other opioids, initial encounter; T36.95XA Adverse effect of unspecified systemic antibiotic, initial encounter; G20.A1 Parkinson's disease without dyskinesia, without mention of fluctuations; Z11.52 Encounter for screening for COVID-19; R53.81 Other malaise; Z66 Do not resuscitate; Z79.890 Hormone replacement therapy; Z79.899 Other long term (current) drug therapy
CPT/HCPCS: 36415; 71045; 72170; 73552; 80048; 80053; 80202; 81001; 82248; 83605; 83735; 84100; 84443; 85025; 85027; 85610; 85652; 85730; 86140; 87040; 87086; 87428; 93005; 97162; 97166; 97530; 97535; 99285; J7030; J7040; J7050; A4216; J2405

== ENCOUNTER 2023-05-03 15:16 | Inpatient (IN) | payer MEDICARE, SELFPAY ==
[2023-05-03 15:25] VITALS: BP 117/63; PULSE 92; RESP 16; TEMP 36.4; O2SAT 97; BMI 28.7
--- OUTSIDE RECORDS SUMMARY | 2023-05-03 15:27 | XMS RPT_ITS | CCD ---
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 [place] Name Role Phone Heather Dialfátima Muro Unavailable Dial, Tamara N Unavailable Nae Pan Unavailable [phone] Dial, Tamara N Unavailable Unavailable Primary Care Provider UnavailSANDIP Montoya Admitting Unavailable KAN SANCHEZ Attending Unavailable CICI ORELLANA Consulting Unavailable Raji Herrmann Chi Primary Care Provider [phone] Allergies Allergy Classification Reported Allergen(s) Allergy Type Date of Onset Reaction(s) Facility (4 sources) Cetirizine; Translations: [CETIRIZINE HCL] Drug Allergy 5 Shortness of Breath [facility] Work Phone: (3 sources) HISMANOL [Other] Propensity to adverse reactions 5 Shortness of Breath [facility] Work Phone: (3 sources) PROPANOLOL [Other] Propensity to adverse reactions 5 Shortness of Breath [facility] Work Phone: (1 source) OTHER; Translations: [OTHER] Propensity to adverse reactions (disorder) 5 [facility] Repository Medications Completed/Discontinued Medications Medication Drug Class(es) Dates Sig (Normalized) Sig (Original) [id number] 200 actuat albuterol 0.09 mg/actuat metered dose inhaler (2 sources) beta2-Adrenergic Agonist Start: 10-01-2018 take 2 puff(s) by inhalation every four hours as needed for wheezing albuterol HFA (VENTOLIN HFA) 90 mcg/actuation inhaler Inhale 2 Puffs as instructed every 4 hours as needed for Wheezing/Shortnes s of Breath. 1 Inhaler 0 10/01/2018 Active Problems Active Problems Problem Classification Problem Date Documented Date Episodic/Chronic Complication of device; implant or graft (3 sources) Infection and inflammatory reaction due to other internal joint prosthesis, initial encounter; Translations: [Pain due to internal orthopedic prosthetic devices, implants and grafts, initial encounter] Onset: 10-09-2022 10-09-2022 Episodic Complications of surgical procedures or medical care (1 source) Hypotension following procedure; Translations: [Postprocedural hypotension] Onset: 10-12-2022 10-12-2022 Episodic Deficiency and other anemia (1 source) Anemia, unspecified; Translations: [Anemia, unspecified type] Onset: 10-09-2022 Episodic Disorders of lipid metabolism (3 sources) Hyperlipidemia; Translations: [Hyperlipidemia, unspecified] 09-21-2018 Chronic Diverticulosis and diverticulitis (3 sources) Diverticulosis of colon; Translations: [Diverticulosis of large intestine without perforation or abscess without bleeding] Onset: 10-27-2010 10-27-2010 Chronic Esophageal disorders (3 sources) Gastroesophageal reflux disease; Translations: [Gastro-esophageal reflux disease without esophagitis] 09-21-2018 Chronic Essential hypertension (3 sources) Hypertensive disorder; Translations: [Essential (primary) hypertension] 09-21-2018 Chronic Fluid and electrolyte disorders (1 source) Metabolic acidosis; Translations: [Metabolic acidosis] Onset: 10-12-2022 10-12-2022 Episodic Mood disorders (3 sources) Recurrent major depression in remission; Translations: [Major depressive disorder, recurrent, in remission, unspecified] 09-21-2018 Chronic Osteoarthritis (6 sources) Osteoarthritis of finger joint; Translations: [Primary osteoarthritis, unspecified hand] Onset: 10-06-2015 10-06-2015 Chronic Other and unspecified benign neoplasm (3 sources) History of polyp of colon; Translations: [Personal history of colonic polyps] 05-17-2021 Episodic Other bone disease and musculoskeletal deformities (3 sources) Osteopenia; Translations: [Other specified disorders of bone density and structure, unspecified site] 09-23-2019 Episodic Other connective tissue disease (1 source) Presence of unspecified artificial hip joint; Translations: [Prosthetic hip infection, initial encounter ([facility])] Onset: 10-09-2022 Chronic Other injuries and conditions due to external causes (1 source) Injury of right foot; Translations: [Unspecified injury of right foot, initial encounter] Episodic Other nutritional; endocrine; and metabolic disorders (3 sources) Obese class I; Translations: [Obesity, unspecified] 03-25-2019 Chronic Other nutritional; endocrine; and metabolic disorders (1 source) Obese class II; Translations: [Obesity, unspecified] Onset: 10-11-2022 10-11-2022 Chronic Other upper respiratory disease (3 sources) Allergic rhinitis; Translations: [Allergic rhinitis, unspecified] Onset: 09-14-2009 09-14-2009 Chronic Respiratory failure; insufficiency; arrest (adult) (1 source) Acute respiratory failure; Translations: [Acute respiratory failure with hypoxia] Onset: 10-12-2022 10-12-2022 Episodic Schizophrenia and other psychotic disorders (3 sources) Chronic schizoaffective schizophrenia; Translations: [Schizoaffective disorder, unspecified] Onset: 11-01-2007 11-01-2007 Chronic Skin and subcutaneous tissue infections (1 source) Cutaneous abscess of left lower limb; Translations: [Abscess of hip, left] Onset: 10-09-2022 Episodic Thyroid disorders (3 sources) Hypothyroidism; Translations: [Hypothyroidism, unspecified] Onset: 03-31-2010 09-21-2018 Chronic Unclassified (3 sources) Postoperative physical examination; Translations: [Encounter for other specified surgical aftercare] Onset: 04-11-2017 04-11-2017 Past or Other Problems Problem Classification Problem Date Documented Da te Episodic/Chronic Gastritis and duodenitis (3 sources) Gastritis; Translations: [Gastritis, unspecified, without bleeding] Onset: 12-08-2005 12-08-2005 Episodic Other and unspecified benign neoplasm (3 sources) Benign neoplasm of rectum and anal canal; Translations: [Benign neoplasm of rectum] Onset: 10-27-2010 10-27-2010 Episodic Other bone disease and musculoskeletal deformities (3 sources) Disorder of skeletal system; Translations: [Disorder of bone, unspecified] Onset: 02-08-2005 02-08-2005 Episodic Other connective tissue disease (12 sources) Acquired trigger finger; Translations: [Trigger finger, right ring finger] Onset: 10-06-2015 10-06-2015 Episodic Spondylosis; intervertebral disc disorders; other back problems (6 sources) Low back pain; Translations: [Lumbago] Onset: 12-08-2005 12-08-2005 Episodic Results Test Name Value Interpretation Reference Range Facil ity Vital Signs Date Time Vital Sign Value Performing Clinician Facility 01-30-2022 15:04-0400 Body temperature 97.5 [degF] Fidencio Huggins LOSS CONTROL TECHNICIAN.TIME STUDY OBSERVER Work Phone: [facility] 01-30-2022 15:04-0400 Body weight 83.92 kg Fidencio Huggins LOSS CONTROL TECHNICIAN.TIME STUDY OBSERVER Work Phone: [facility] 01-30-2022 15:04-0400 Diastolic blood pressure 88 mm[Hg] Fidencio Huggins LOSS CONTROL TECHNICIAN.TIME STUDY OBSERVER Work Phone: [facility] 01-30-2022 15:04-0400 Heart rate 85 /min Fidencio Huggins LOSS CONTROL TECHNICIAN.TIME STUDY OBSERVER Work Phone: [facility] 01-30-2022 15:04-0400 Respiratory rate 18 /min Fidencio Huggins LOSS CONTROL TECHNICIAN.TIME STUDY OBSERVER Work Phone: [facility] 01-30-2022 15:04-0400 SaO2% (BldA) [Mass fraction] 97 % Fidencio Huggins LOSS CONTROL TECHNICIAN.TIME STUDY OBSERVER Work Phone: [facility] 01-30-2022 15:04-0400 Systolic blood pressure 126 mm[Hg] Fidencio Huggins LOSS CONTROL TECHNICIAN.TIME STUDY OBSERVER Work Phone: [facility] 10-06-2015 14:40-0400 BMI (Body Mass Index) 29.23 kg/m2 [facility] Work Phone: 10-06-2015 14:40-0400 Height 160.02 cm [facility] Work Phone: 10-06-2015 14:40-0400 Weight 74.84 kg [facility] Work Phone: Encounters Encounter Date Encounter Type Care Provider Facility Start: 12-06-2022 ambulatory Maude SMITH SE MANAGER [employer] Procedures Date Procedure Procedure Detail Performing Clinician Start: 10-16-2022 Electrocardiogram ZEINAB MAJANO Start: 10-10-2022 Antibody screen ASNDIP MAJANO Plan of Treatment Date Care Activity Detail Author Start: 10-21-2025 DIABETES SCREEN DIABETES SCREEN [facility] Start: 03-18-2024 LIPID SCREEN LIPID SCREEN [facility] Start: 01-20-2023 Influenza vaccination INFLUENZA (#1) [facility] Start: 05-22-2022 ADVANCE DIRECTIVE DISCUSSION ADVANCE DIRECTIVE DISCUSSION [facility] Start: 03-18-2022 DIABETES SCREEN DIABETES SCREEN [facility] Start: 01-20-2022 Influenza vaccination INFLUENZA (#1) [facility] Start: 01-07-2022 COVID-19 VACCINE (5 - Booster for Moderna series) COVID-19 VACCINE (5 - Booster for Moderna series) [facility] Start: 11-02-2021 COVID-19 VACCINE (5 - Booster for Moderna series) COVID-19 VACCINE (5 - Booster for Moderna series) [facility] Start: 05-22-2021 ADVANCE DIRECTIVE DISCUSSION ADVANCE DIRECTIVE DISCUSSION [facility] Start: 10-06-2020 ANNUAL PCP TEAM CHRONIC DISEASE VISIT ANNUAL PCP TEAM CHRONIC DISEASE VISIT [facility] Start: 06-01-2019 Mammography MAMMOGRAM [facility] Start: 04-12-2017 End: 04-12-2017 Occupational Therapy General Occupational Therapy General Rehab [facility], [address] [place] [address], [id number] [facility] Work Phone: Start: 04-11-2017 End: 04-11-2017 Appointment Appointment [facility] Work Phone: Start: 03-29-2017 End: 03-29-2017 Appointment Appointment [facility] Work Phone: Start: 03-09-2017 End: 03-09-2017 Appointment Appointment [facility] Work Phone: Start: 06-01-2016 End: 06-01-2016 Occupational Therapy General Occupational Therapy [facility], [address] [place] [address], [phone] [facility] Work Phone: Start: 10-28-2015 Colonoscopy COLONOSCOPY [facility] Start: 10-28-2015 COLORECTAL CANCER SCREENING COLORECTAL CANCER SCREENING [facility] Start: 10-07-2015 End: 10-07-2015 Occupational Therapy General Occupational Therapy [facility], [address] [place] [address], [id number] [facility] Work Phone: Start: 06-21-2015 Urine microalbumin profile DTAP,TDAP,TD (3 - Td or Tdap) [facility] Start: 03-22-2014 PNEUMOCOCCAL: 65+ (2 - PCV) PNEUMOCOCCAL: 65+ (2 - PCV) [facility] Start: 1993 COLOGUARD (FIT-DNA) COLOGUARD (FIT-DNA) [facility] Start: [address] COLONOGRAPHY [facility] Start: 1993 FECAL OCCULT BLOOD FECAL OCCULT BLOOD [facility] Start: 1993 SIGMOIDOSCOPY SIGMOIDOSCOPY [facility] Start: 1966 BP CONTROLLED (<130/80) BP CONTROLLED (<130/80) [facility] Start: 1966 HEPATITIS C SCREENING HEPATITIS C SCREENING [facility] Patient Education TRIGGER%20FINGER [facility] [place] Work Phone: Immunizations Immunization Date Immunization Notes Care Provider Deyvi bowden 03-06-2019 influenza, high dose seasonal, preservative-free Fidencio Pendlebury LOSS CONTROL TECHNICIAN.TIME STUDY OBSERVER Work Phone: [facility] 03-06-2019 Seasonal, quadrivale nt, recombinant, injectable influenza vaccine, preservative free Fidencio Pendlebury LOSS CONTROL TECHNICIAN.TIME STUDY OBSERVER Work Phone: [facility] 03-10-2018 zoster vaccine recombinant Fidencio Pendhoney LOSS CONTROL TECHNICIAN.TIME STUDY OBSERVER Work Phone: [facility] 02-19-2018 influenza, seasonal, injectable, preservative free Fidencio Pendlebury LOSS CONTROL TECHNICIAN.TIME STUDY OBSERVER Work Phone: [facility] 12-19-2017 zoster vaccine recombinant Fidencio Fonghoney LOSS CONTROL TECHNICIAN.TIME STUDY OBSERVER Work Phone: [facility] 03-22-2013 pneumococcal polysaccharide vaccine, 23 valent Fidencio Huggins LOSS CONTROL TECHNICIAN.TIME STUDY OBSERVER Work Phone: [facility] 05-11-2009 novel influenza-H1N1 -09, preservative-free, injectable Fidencio Huggins LOSS CONTROL TECHNICIAN.TIME STUDY OBSERVER Work Phone: [facility] 03-05-2006 influenza virus vacc ine, whole virus Fidencioleroy Huggins LOSS CONTROL TECHNICIAN.TIME STUDY OBSERVER Work Phone: [facility] Work Phone: 06-21-2005 tetanus toxoid, redu elana diphtheria toxoid, and acellular pertussis vaccine, adsorbed Fidencioleroy Fonghoney LOSS CONTROL TECHNICIAN.TIME STUDY OBSERVER Work Phone: [facility] Work Phone: 05-22-1995 diphtheria and tetan us toxoids, adsorbed for pediatric use Fidencio Bhavna LOSS CONTROL TECHNICIAN.TIME STUDY OBSERVER Work Phone: [facility] Work Phone: Payers Date Payer Category Payer Medicare [id number] 2021 Medicare [id number] Social History Date Type Detail Facility Tobacco smoking status NHIS Never smoked tobacco [facility] Work Phone: Start: 01-30-2022 End: 10-11-2022 Alcohol intake Current non-drinker of alcohol (finding) [facility] Start: 1950 Sex Assigned At Not on file [facility] Start: 10-10-2022 End: 10-11-2022 History of Social function [facility] Work Phone: Start: 10-10-2022 End: 10-11-2022 Tobacco use panel [facility] Work Phone: How hard is it for y ou to pay for the very basics like food, housing, medical care, and heating Not very hard [facility] Work Phone: (I/We) worried wheth er (my/our) food would run out before (I/we) got money to buy more. Never true [facility] Work Phone: In the past 12 month s, has lack of transportation kept you from medical appointments or from getting medications? No [facility] Work Phone: In the past 12 month s, was there a time when you were not able to pay the mortgage or rent on time? No [facility] Work Phone: Medical Equipment Procedure Code Equipment Code Equipment Origin al Text Equipment Identifier Dates Kit Stimulan Rap id Cure Calcium Sulfate Bone Graft Kit Paste Bead 10cc 25cc - [id number] FDA Start: 10-11-2022 Set Split Cath I ii 14fr 18ga Straight Triniflex 28cm Catheter Basic - [id number] Start: 10-20-2022 Cement Refobacin Bone Sterile Latex Free Disposable - [id number] Start: 10-11-2022 [place] Imp Hip Fem Prstlc Lt [id number] Start: 10-11-2022 Head Praveena 43 mm Ball Unipolar Modular Orthocentric Design Hip Femur - [id number] Start: 10-11-2022 Clinical Notes 02-08-2005 to 12-06-2022 Telephone Encounter - Maude Dash RN - 12/06/2022 6:35 PM EDTTelephone Encounter - Seema Novak - 01/31/2022 10:02 AM Kinga Huggins APRN.CNP - 01/30/2022 3:04 PM EDT Note Date & Type Note Facility 12-06-2022 Miscellaneous Notes calling with lab result. Concerned about lab results released to chart. denies any new or worsening symptoms of which a provider is not aware:Yes . Transferred to PCP's answering service at . GO TO THE EMERGENCY ROOM OR CALL 911 IF: * You develop any new symptoms * Your condition worsens * You are concerned or anxious about your condition for any other reason. If you have any questions, you can call Nurse promotional model back. documented in this encounter [facility] 10-21-2022 Note HNO ID: [id number] Author: Georgina Ochoa RN Service: ? Author Type: Registered Nurse Type: Progress Notes Filed: 10/21/2022 1:29 PM Note Text: Treatment initiated with lines in reverse. 2000mL removed, 1.5L net [facility] 10-21-2022 Note [facility] 10-20-2022 Note [facility] 10[facility]20-2022 Note [facility] 10-20-2022 Note [facility] 10-19-2022 Note [facility] 10-19-2022 Note [facility] 10-18-2022 Note [facility] 10-18-2022 [facility] 10-17-2022 Note [facility] 10-17-2022 Note [facility] 10-17-2022 Note HNO ID: [id number] Author: Carmen Rich RN Service: ? Author Type: Registered Nurse Type: Nursing Progress Note Filed: 10/17/2022 9:59 AM Note Text: Dr Golden aware of elevated bp and sepsis advisory flag. [facility] 10-16-2022 Note [facility] 10[facility]16-2022 Note [facility] 10-16-2022 Note [facility] 10-15-2022 Note [facility] 10-15-2022 Note [facility] 10-14-2022 Note [facility] 10-14-2022 Note HNO ID: [id number] Author: Georgina Ochoa RN Service: ? Author Type: Registered Nurse Type: Progress Notes Filed: 10/14/2022 1:54 PM Note Text: Treatment initiated without difficulty. 1500mL removed, 1L net [facility] 10-14-2022 Note [facility]14[facility]2022 [facility] 10-13-2022 [facility] 10-12-2022 Note [facility] 10-12-2022 [facility] 10[facility]12-2022 [facility] 10-11-2022 [facility] 10[facility]11-2022 [facility] 10[facility]11-2022 [facility] 10-11-2022 [facility]11-2022 [facility] 10-10-2022 [facility] 10-10-2022 Note [facility] 10-10-2022 Note HNO ID: [id number] Author: Joanne Chavez RN Service: ? Author Type: Registered Nurse Type: Nursing Progress Note Filed: 10/10/2022 12:14 AM Note Text: This nurse receives report and resumes patient care at this time. [facility] 01-31-2022 Note HNO ID: [id number] Author: RT Henna(R) Service: Radiology Author Type: Technologist Type: Progress Notes Filed: 01/31/2022 9:01 AM Note Text: Radiology Service Progress Note PATIENT NAME: Kaia Hale DATE OF SERVICE: January 31, 2022 TIME: 8:50 AM PATIENT IDENTITY VERIFICATION COMPLETED USING TWO (2) IDENTIFIERS: Name and Date of confirmed by patient verbally. FALL SCREENING: Has the patient had 2 falls in the last year or 1 fall with injury or currently using an Ambulatory Assistive Device (Walker, Cane, Wheelchair, Crutches, etc.)? No PATIENT GENDER DATA: Female. status: : No status: NO. PATIENT RELEVANT IMPLANT DATA REVIEWED: Yes RADIOLOGY DEPARTMENT: General X-ray: Exam(s) Completed: Lower Extremity X-Ray(s): Foot, Right and Wt. Bearing PERIPHERAL IV DATA: Not applicable SIGNED BY: RT Henna(R) January 31, 2022 8:50 AM [facility] 01-31-2022 Miscellaneous Notes Patient given results and verbalized understanding of instructions given. Seema Novak No abnormal findings noted on x-ray. Continue supportive therapies as discussed. Follow-up with PCP if symptoms or not improving. Fidencio Huggins APRN.CNP documented in this encounter [facility] 01-30-2022 Note HNO ID: [id number] Author: Fidencio Huggins APRN.CNP Service: ? Author Type: Nurse Practitioner Type: Progress Notes Filed: 01/31/2022 9:26 AM Note Text: Subjective HPI Nontoxic-appearing female presents urgent care chief complaint right foot injury. Duration of symptoms 1 week. Associated symptoms right foot injury and pain. Patient states 1 week ago she was wearing sandals with not good support . Patient states she injured her foot walking. Denies a specific injury but can recall pain after taking off her sandals. States she has been using Epson salt with Tylenol for pain management this has helped. States pain has improved since earlier last week. Denies any bruising or swelling. Points to the lateral aspect of foot where the pain is most significant. Denies any significant numbness or tingling. No decrease sensation. No breaks in skin. Past medical history prescription medication use allergies reviewed. History of ankle fracture in the past. BP 126/88 Pulse 85 Temp 36.4 ?C (97.5 ?F) Resp 18 Wt 83.9 kg (185 lb) SpO2 97% BMI 32.26 kg/m? .Patient presents with: Foot Trauma: R foot injury x1 week PAST MEDICAL HISTORY Diagnosis Date Climacteric arthritis DDD (degenerative disc disease), lumbar Depressive disorder, not elsewhere classified Diverticulosis of colon (without mention of hemorrhage) Fracture of right ankle 09/06/10 GERD (gastroesophageal reflux disease) HTN (hypertension) Hyperlipidemia Hypothyroidism Macular degeneration optho in [place] Obesity (BMI 30.0-34.9) Osteopenia Personal history of colonic polyps Colon polyps Schizophrenia (HCC) Dr. Shabazz Unspecified hemorrhoids without mention of complication PAST SURGICAL HISTORY Procedure Laterality Date ARTHRP KNE CONDYLEANDPLATU MEDIALANDLAT COMPARTMENTS Left 10/2017 COLONOSCOPY FLX DX W/COLLJ SPEC WHEN PFRMD 04/21/99 Colonoscopy COLONOSCOPY FLX DX W/COLLJ SPEC WHEN PFRMD 04/19/2005 Colonoscopy COLONOSCOPY FLX DX W/COLLJ SPEC WHEN PFRMD 10/27/2010 Colonoscopy LIG/TRNSXJ FLP TUBE ABDL/VAG APPR UNI/BI OSTECTOMY CALCANEUS SPUR W/WO PLNTAR FASCIAL RLS left TONSILLECTOMY AND ADENOIDECTOMY ALLERGIES Hismanol [Other], Propanolol [Other], and Zyrtec [Cetirizine Hcl] MEDICATIONS carbidopa-levodopa (SINEMET 25-100) 25-100 mg per tablet Take 1 tablet by mouth three times daily. hydrOXYchloroQUINE (PLAQUENIL) 200 mg tablet Take by mouth. folic acid 1 mg tablet Take 2 mg by mouth once daily. methotrexate 2.5 mg tablet TAKE 5 TABLETS BY MOUTH ONCE A WEEK levothyroxine (SYNTHROID) 88 mcg tablet Take 1 tablet by mouth once daily. pravastatin (PRAVACHOL) 40 mg tablet Take 1 tablet by mouth once daily. Omeprazole (PRILOSEC) 40 mg capsule Take 1 capsule by mouth once daily. potassium chloride ER (K-DUR) 20 mEq tablet Take 2 tablets by mouth every morning. mag salicylate/diphenhydramine (KATY'S PM BACK PAIN RELIEF ORAL) Take by mouth. paliperidone ER (INVEGA) 3 mg 24 hr tablet Take 3 mg by mouth daily at bedtime. lactobacillus combination no.4 (PROBIOTIC) 3 billion cell cap Take 2 capsules by mouth once daily. OLANZapine (ZYPREXA) 7.5 mg tablet Take 1 tablet by mouth daily at bedtime. albuterol HFA (VENTOLIN HFA) 90 mcg/actuation inhaler Inhale 2 Puffs as instructed every 4 hours as needed for Wheezing/Shortness of Breath. traZODone (DESYREL) 50 mg tablet Take 50 mg by mouth daily at bedtime. PARoxetine (PAXIL) 40 mg tablet Take 40 mg by mouth once daily. CALCIUM CARBONATE/VITAMIN D2 (CALCIUM + VITAMIN D ORAL) Take by mouth. nystatin (MYCOSTATIN) 100,000 unit/mL suspension Take 5 mL by mouth four times daily. 1tsp swish in mouth for several minutes, then swallow (or expectorate) 4 times daily until gone. (Patient not taking: Reported on 01/30/2022) loratadine/pseudoephedrine (CLARITIN-D 24 HOUR ORAL) Take by mouth as needed. (Patient not taking: Reported on 01/30/2022) ondansetron orally disintegrating (ZOFRAN ODT) 4 mg disintegrating tablet Take 1 tablet by mouth every 6 hours as needed for Nausea/Vomiting. (Patient not taking: Reported on 01/30/2022) FAMILY HISTORY Problem Relation Age of Onset Heart Mother CHF Heart Father CHF Heart Brother other (back problems) Brother Social History Tobacco Use Smoking status: Never Smokeless tobacco: Never Vaping Use Vaping Use: Never used Substance Use Topics Alcohol use: No Drug use: No Review of Systems Constitutional: Negative for chills, fever and malaise/fatigue. HENT: Negative for congestion, ear discharge, ear pain, sinus pain and sore throat. Eyes: Negative for blurred vision, pain, discharge and redness. Respiratory: Negative for cough, hemoptysis, sputum production, shortness of breath, wheezing and stridor. Cardiovascular: Negative for chest pain. Gastrointestinal: Negative for abdominal pain, diarrhea, nausea and vomiting. Musculoskeletal: Positive for joint pain. Negativ (more content not included)... [facility] 01-30-2022 History of Present illness Narrative Images from the original note were not included. Subjective HPI Nontoxic-appearing female presents urgent care chief complaint right foot injury. Duration of symptoms 1 week. Associated symptoms right foot injury and pain. Patient states 1 week ago she was wearing sandals with not good support . Patient states she injured her foot walking. Denies a specific injury but can recall pain after taking off her sandals. States she has been using Epson salt with Tylenol for pain management this has helped. States pain has improved since earlier last week. Denies any bruising or swelling. Points to the lateral aspect of foot where the pain is most significant. Denies any significant numbness or tingling. No decrease sensation. No breaks in skin. Past medical history prescription medication use allergies reviewed. History of ankle fracture in the past. BP 126/88 Pulse 85 Temp 36.4 C (97.5 F) Resp 18 Wt 83.9 kg (185 lb) SpO2 97% BMI 32.26 kg/m .Patient presents with: Foot Trauma: R foot injury x1 week PAST MEDICAL HISTORY Diagnosis Date Climacteric arthritis DDD (degenerative disc disease), lumbar Depressive disorder, not elsewhere classified Diverticulosis of colon (without mention of hemorrhage) Fracture of right ankle 09/06/10 GERD (gastroesophageal reflux disease) HTN (hypertension) Hyperlipidemia Hypothyroidism Macular degeneration optho in [place] Obesity (BMI 30.0-34.9) Osteopenia Personal history of colonic polyps Colon polyps Schizophrenia (HCC) Dr. Shabazz Unspecified hemorrhoids without mention of complication PAST SURGICAL HISTORY Procedure Laterality Date ARTHRP KNE CONDYLE&PLATU MEDIAL&LAT COMPARTMENTS Left 10/2017 COLONOSCOPY FLX DX W/COLLJ SPEC WHEN PFRMD 04/21/99 Colonoscopy COLONOSCOPY FLX DX W/COLLJ SPEC WHEN PFRMD 04/19/2005 Colonoscopy COLONOSCOPY FLX DX W/COLLJ SPEC WHEN PFRMD 10/27/2010 Colonoscopy LIG/TRNSXJ FLP TUBE ABDL/VAG APPR UNI/BI OSTECTOMY CALCANEUS SPUR W/WO PLNTAR FASCIAL RLS left TONSILLECTOMY & ADENOIDECTOMY <AGE 12 ALLERGIES Hismanol [Other], Propanolol [Other], and Zyrtec [Cetirizine Hcl] MEDICATIONS carbidopa-levodopa (SINEMET 25-100) 25-100 mg per tablet Take 1 tablet by mouth three times daily. hydrOXYchloroQUINE (PLAQUENIL) 200 mg tablet Take by mouth. folic acid 1 mg tablet Take 2 mg by mouth once daily. methotrexate 2.5 mg tablet TAKE 5 TABLETS BY MOUTH ONCE A WEEK levothyroxine (SYNTHROID) 88 mcg tablet Take 1 tablet by mouth once daily. pravastatin (PRAVACHOL) 40 mg tablet Take 1 tablet by mouth once daily. Omeprazole (PRILOSEC) 40 mg capsule Take 1 capsule by mouth once daily. potassium chloride ER (K-DUR) 20 mEq tablet Take 2 tablets by mouth every morning. mag salicylate/diphenhydramine (KATY'S PM BACK PAIN RELIEF ORAL) Take by mouth. paliperidone ER (INVEGA) 3 mg 24 hr tablet Take 3 mg by mouth daily at bedtime. lactobacillus combination no.4 (PROBIOTIC) 3 billion cell cap Take 2 capsules by mouth once daily. OLANZapine (ZYPREXA) 7.5 mg tablet Take 1 tablet by mouth daily at bedtime. albuterol HFA (VENTOLIN HFA) 90 mcg/actuation inhaler Inhale 2 Puffs as instructed every 4 hours as needed for Wheezing/Shortness of Breath. traZODone (DESYREL) 50 mg tablet Take 50 mg by mouth daily at bedtime. PARoxetine (PAXIL) 40 mg tablet Take 40 mg by mouth once daily. CALCIUM CARBONATE/VITAMIN D2 (CALCIUM + VITAMIN D ORAL) Take by mouth. nystatin (MYCOSTATIN) 100,000 unit/mL suspension Take 5 mL by mouth four times daily. 1tsp swish in mouth for several minutes, then swallow (or expectorate) 4 times daily until gone. (Patient not taking: Reported on 01/30/2022) loratadine/pseudoephedrine (CLARITIN-D 24 HOUR ORAL) Take by mouth as needed. (Patient not taking: Reported on 01/30/2022) ondansetron orally disintegrating (ZOFRAN ODT) 4 mg disintegrating tablet Take 1 tablet by mouth every 6 hours as needed for Nausea/Vomiting. (Patient not taking: Reported on 01/30/2022) FAMILY HISTORY Problem Relation Age of Onset Heart Mother CHF Heart Father CHF Heart Brother other (back problems) Brother Social History Tobacco Use Smoking status: Never Smokeless tobacco: Never Vaping Use Vaping Use: Never used Substance Use Topics Alcohol use: No Drug use: No Review of Systems Constitutional: Negative for chills, fever and malaise/fatigue. HENT: Negative for congestion, ear discharge, ear pain, sinus pain and sore throat. Eyes: Negative for blurred vision, pain, discharge and redness. Respiratory: Negative for cough, hemoptysis, sputum production, shortness of breath, wheezing and stridor. Cardiovascular: Negative for chest pain. Gastrointestinal: Negative for abdominal pain, diarrhea, nausea and vomiting. Musculoskeletal: Positive for joint pain. Negative for back pain, falls, myalgias and neck pain. Skin: Negative for itching and rash. Neurological: Negative for dizziness and headaches. Objective Physical Exam Constitutional: General: She is not in acute distress. Appearance: She is not diaphoretic. HENT: Head: Normocephalic. Mouth/Throat: Mouth: Mucous membranes are moist. Pharynx: Oropharynx is clear. No oropharyngeal exudate or posterior oropharyngeal erythema. Cardiovascular: Rate and Rhythm: Normal rate and regular rhythm. Heart sounds: Normal heart sounds. Pulmonary: Effort: Pulmonary effort is normal. No tachypnea, accessory muscle usage or respiratory distress. Breath sounds: Normal breath sounds. No stridor. No wheezing, rhonchi or rales. Musculoskeletal: Cervical back: Normal range of motion. Feet: Feet: Comments: Pain with palpation the lateral aspect of right foot. No breaks in skin. No foreign bodies. Neurovascular intact. No erythema or edema. Skin: General: Skin is warm and dry. Neurological: Mental Status: She is alert and oriented to person, place, and time. ASSESSMENT/PLAN: 1. Foot injury, right, initial encounter - ICD9: 959.7, ICD10: S99.921A - XR FOOT GENERAL 3V AP/LAT/OBL RIGHT IMPRESSION: No radiographic evidence of acute osseous injury No abnormal findings noted on x-ray. Suspicious of arthritis or overuse injury. Continue supportive therapies. Patient was educated on supportive therapies. Patient will follow up with primary care provider as needed. Patient was instructed to immediately proceed to emergency room for any new, worsening, or symptoms lasting longer than anticipated. The patient's clinical presentation is otherwise unremarkable at this time. Based on exam and clinical finding, the patient is stable for discharge. Plan of care was discussed with patient. Patient verbalizes understanding and agrees to plan of care. This note was generated using [employer] software. It may contain errors in wording, punctuation, or spelling. Fidencio Huggins APRN.JULES documented in this encounter [facility] 10-01-2021 Note HNO ID: [id number] Author: Jesusita Rivera PA-C Service: ? Author Type: Physician Horse Stud Manager Type: Progress Notes Filed: 10/01/2021 1:17 PM Note Text: This note was created using [employer]. Subjective Kaia Hale is a 71 year old female. HPI Patient presents with right rib pain over the past 3 days. She was bent over washing the dogs in a tub when they kept pushing her ribs into the tub. She states since then she has had pain when she moves or breathes in that right anterior rib area. She has tried Tylenol for pain. She denies any rib injuries previously. No chest pain otherwise or shortness of breath. No fevers or chills. No cough. Review of Systems Constitutional: Negative for chills, fatigue and fever. HENT: Negative. Eyes: Negative. Respiratory: Negative for cough, chest tightness, shortness of breath and wheezing. Cardiovascular: Right anterior rib pain Gastrointestinal: Negative. Genitourinary: Negative. Musculoskeletal: Negative. All other systems reviewed and are negative. PAST MEDICAL HISTORY Diagnosis Date - Climacteric arthritis - DDD (degenerative disc disease), lumbar - Depressive disorder, not elsewhere classified - Diverticulosis of colon (without mention of hemorrhage) - Fracture of right ankle 09/06/10 - GERD (gastroesophageal reflux disease) - HTN (hypertension) - Hyperlipidemia - Hypothyroidism - Macular degeneration optho in [place] - Obesity (BMI 30.0-34.9) - Osteopenia - Personal history of colonic polyps Colon polyps - Schizophrenia ([facility]) Dr. Shabazz - Unspecified hemorrhoids without mention of complication Current Outpatient Medications Medication Sig Dispense Refill - hydrOXYchloroQUINE (PLAQUENIL) 200 mg tablet Take by mouth. - folic acid 1 mg tablet Take 2 mg by mouth once daily. - methotrexate 2.5 mg tablet TAKE 5 TABLETS BY MOUTH ONCE A WEEK - nystatin (MYCOSTATIN) 100,000 unit/mL suspension Take 5 mL by mouth four times daily. 1tsp swish in mouth for several minutes, then swallow (or expectorate) 4 times daily until gone. 200 mL 0 - levothyroxine (SYNTHROID) 88 mcg tablet Take 1 tablet by mouth once daily. 30 tablet 2 - pravastatin (PRAVACHOL) 40 mg tablet Take 1 tablet by mouth once daily. 30 tablet 5 - Omeprazole (PRILOSEC) 40 mg capsule Take 1 capsule by mouth once daily. 90 capsule 3 - potassium chloride ER (K-DUR) 20 mEq tablet Take 2 tablets by mouth every morning. 180 tablet 3 - loratadine/pseudoephedrine (CLARITIN-D 24 HOUR ORAL) Take by mouth as needed. - mag salicylate/diphenhydramine (KATY'S PM BACK PAIN RELIEF ORAL) Take by mouth. - paliperidone ER (INVEGA) 3 mg 24 hr tablet Take 3 mg by mouth daily at bedtime. - lactobacillus combination no.4 (PROBIOTIC) 3 billion cell cap Take 2 capsules by mouth once daily. - OLANZapine (ZYPREXA) 7.5 mg tablet Take 1 tablet by mouth daily at bedtime. - albuterol HFA (VENTOLIN HFA) 90 mcg/actuation inhaler Inhale 2 Puffs as instructed every 4 hours as needed for Wheezing/Shortness of Breath. 1 Inhaler 0 - ondansetron orally disintegrating (ZOFRAN ODT) 4 mg disintegrating tablet Take 1 tablet by mouth every 6 hours as needed for Nausea/Vomiting. 12 tablet 2 - traZODone (DESYREL) 50 mg tablet Take 50 mg by mouth daily at bedtime. - PARoxetine (PAXIL) 40 mg tablet Take 40 mg by mouth once daily. - CALCIUM CARBONATE/VITAMIN D2 (CALCIUM + VITAMIN D ORAL) Take by mouth. - carbidopa-levodopa (SINEMET 25-100) 25-100 mg per tablet Take 1 tablet by mouth three times daily. - predniSONE (DELTASONE) 20 mg tablet Take 2 tablets by mouth once daily for 5 days. 10 tablet 0 No current facility-administered medications for this visit. PAST SURGICAL HISTORY Procedure Laterality Date - ARTHRP KNE CONDYLEANDPLATU MEDIALANDLAT COMPARTMENTS Left 10/2017 - COLONOSCOPY FLX DX W/COLLJ SPEC WHEN PFRMD 04/21/99 Colonoscopy - COLONOSCOPY FLX DX W/COLLJ SPEC WHEN PFRMD 04/19/2005 Colonoscopy - COLONOSCOPY FLX DX W/COLLJ SPEC WHEN PFRMD 10/27/2010 Colonoscopy - LIG/TRNSXJ FLP TUBE ABDL/VAG APPR UNI/BI - OSTECTOMY CALCANEUS SPUR W/WO PLNTAR FASCIAL RLS left - TONSILLECTOMY AND ADENOIDECTOMY FAMILY HISTORY Problem Relation Age of Onset - Heart Mother CHF - Heart Father CHF - Heart Brother - other (back problems) Brother Social History Tobacco Use - Smoking status: Never Smoker - Smokeless tobacco: Never Used Vaping Use - Vaping Use: Never used Substance Use Topics - Alcohol use: No - Drug use: No Objective BP 122/70 Pulse 78 Temp 36.6 ?C (97.8 ?F) Resp 18 Wt 77.6 kg (171 lb) SpO2 95% BMI 29.82 kg/m? Physical Exam Vitals reviewed. Constitutional: Appearance: Normal appearance. HENT: Head: Normocephalic and atraumatic. Cardiovascular: Rate and Rhythm: Normal rate and regular rhythm. Heart sounds: Normal heart sounds. Pulmonary: Effort: Pulmonary effort is normal. Breath sounds: Normal br (more content not included)... [facility] 10-01-2021 Note HNO ID: [id number] Author: RT Veronika(R) Service: ? Author Type: Diagnostic Assistant Type: Progress Notes Filed: 10/01/2021 12:53 PM Note Text: Radiology Service Progress Note PATIENT NAME: Kaia Hale DATE OF SERVICE: October 01, 2021 TIME: 12:32 PM PATIENT IDENTITY VERIFICATION COMPLETED USING TWO (2) IDENTIFIERS: Name and Date of confirmed by patient verbally. FALL SCREENING: Has the patient had 2 falls in the last year or 1 fall with injury or currently using an Ambulatory Assistive Device (Walker, Cane, Wheelchair, Crutches, etc.)? No PATIENT GENDER DATA: Female. status: : No status: NO. PATIENT RELEVANT IMPLANT DATA REVIEWED: Yes RADIOLOGY DEPARTMENT: General X-ray: Exam(s) Completed: Rib X-Ray: Right PERIPHERAL IV DATA: Not applicable SIGNED BY: RT Veronika(R) October 01, 2021 12:32 PM [facility] 07-25-2021 Note HNO ID: [id number] Author: Rhett Stephenson APRN.TIME STUDY OBSERVER Service: ? Author Type: Nurse Practitioner Type: Progress Notes Filed: 07/25/2021 3:18 PM Note Text: Subjective HPI HPI Kaia Hale is a 70 year old female who presents today for CC of cough, congestion, vomiting, chills, body aches, h/a, st. This started 1 day ago. Has tried otc medication for relief. Symptoms are worsened by nothing. Risk factors recent sick exposures. Able to tolerate liquids orally. Voiding as usual. Denies cp/sob, ear pain. Vaccinated for flu and covid. Patient not known to [facility], denies hx of renal/hepatic dysfunction. .Patient presents with: Vomiting: chills, abd pain, VIGIL x1 day PAST MEDICAL HISTORY Diagnosis Date - Climacteric arthritis - DDD (degenerative disc disease), lumbar - Depressive disorder, not elsewhere classified - Diverticulosis of colon (without mention of hemorrhage) - Fracture of right ankle 09/06/10 - GERD (gastroesophageal reflux disease) - HTN (hypertension) - Hyperlipidemia - Hypothyroidism - Macular degeneration optho in [place] - Obesity (BMI 30.0-34.9) - Osteopenia - Personal history of colonic polyps Colon polyps - Schizophrenia (HCC) Dr. Shabazz - Unspecified hemorrhoids without mention of complication PAST SURGICAL HISTORY Procedure Laterality Date - ARTHRP KNE CONDYLEANDPLATU MEDIALANDLAT COMPARTMENTS Left 10/2017 - COLONOSCOPY FLX DX W/COLLJ SPEC WHEN PFRMD 04/21/99 Colonoscopy - COLONOSCOPY FLX DX W/COLLJ SPEC WHEN PFRMD 04/19/2005 Colonoscopy - COLONOSCOPY FLX DX W/COLLJ SPEC WHEN PFRMD 10/27/2010 Colonoscopy - LIG/TRNSXJ FLP TUBE ABDL/VAG APPR UNI/BI - OSTECTOMY CALCANEUS SPUR W/WO PLNTAR FASCIAL RLS left - TONSILLECTOMY AND ADENOIDECTOMY ALLERGIES Hismanol [Other], Propanolol [Other], and Zyrtec [Cetirizine Hcl] MEDICATIONS oseltamivir (TAMIFLU) 75 mg capsule Take 1 capsule by mouth twice daily for 5 days. hydrOXYchloroQUINE (PLAQUENIL) 200 mg tablet Take by mouth. folic acid 1 mg tablet Take 2 mg by mouth once daily. methotrexate 2.5 mg tablet TAKE 5 TABLETS BY MOUTH ONCE A WEEK nystatin (MYCOSTATIN) 100,000 unit/mL suspension Take 5 mL by mouth four times daily. 1tsp swish in mouth for several minutes, then swallow (or expectorate) 4 times daily until gone. levothyroxine (SYNTHROID) 88 mcg tablet Take 1 tablet by mouth once daily. pravastatin (PRAVACHOL) 40 mg tablet Take 1 tablet by mouth once daily. Omeprazole (PRILOSEC) 40 mg capsule Take 1 capsule by mouth once daily. potassium chloride ER (K-DUR) 20 mEq tablet Take 2 tablets by mouth every morning. loratadine/pseudoephedrine (CLARITIN-D 24 HOUR ORAL) Take by mouth as needed. mag salicylate/diphenhydramine (KATY'S PM BACK PAIN RELIEF ORAL) Take by mouth. paliperidone ER (INVEGA) 3 mg 24 hr tablet Take 3 mg by mouth daily at bedtime. lactobacillus combination no.4 (PROBIOTIC) 3 billion cell cap Take 2 capsules by mouth once daily. OLANZapine (ZYPREXA) 7.5 mg tablet Take 1 tablet by mouth daily at bedtime. albuterol HFA (VENTOLIN HFA) 90 mcg/actuation inhaler Inhale 2 Puffs as instructed every 4 hours as needed for Wheezing/Shortness of Breath. ondansetron orally disintegrating (ZOFRAN ODT) 4 mg disintegrating tablet Take 1 tablet by mouth every 6 hours as needed for Nausea/Vomiting. traZODone (DESYREL) 50 mg tablet Take 50 mg by mouth daily at bedtime. PARoxetine (PAXIL) 40 mg tablet Take 40 mg by mouth once daily. CALCIUM CARBONATE/VITAMIN D2 (CALCIUM + VITAMIN D ORAL) Take by mouth. FAMILY HISTORY Problem Relation Age of Onset - Heart Mother CHF - Heart Father CHF - Heart Brother - other (back problems) Brother Social History Tobacco Use - Smoking status: Never Smoker - Smokeless tobacco: Never Used Vaping Use - Vaping Use: Never used Substance Use Topics - Alcohol use: No - Drug use: No ROS Objective Blood pressure 110/82, pulse 115, temperature (!) 38 ?C (100.4 ?F), resp. rate 26, weight 79.9 kg (176 lb 3.2 oz), SpO2 95 %. Physical Exam Constitutional: General: She is not in acute distress. Appearance: She is not toxic-appearing or diaphoretic. HENT: Head: Normocephalic and atraumatic. Nose: Nose normal. Mouth/Throat: Pharynx: Uvula midline. No pharyngeal swelling, oropharyngeal exudate, posterior oropharyngeal erythema or uvula swelling. Eyes: General: Lids are normal. No scleral icterus. Right eye: No discharge. Left eye: No discharge. Conjunctiva/sclera: Conjunctivae normal. Pupils: Pupils are equal, round, and reactive to light. Neck: Trachea: Trachea normal. Cardiovascular: Rate and Rhythm: Normal rate and regular rhythm. Heart sounds: Normal heart sounds. Pulmonary: Effort: Pulmonary effort is normal. Breath sounds: Normal breath sounds. Musculoskeletal: Cervical back: Normal range of motion and neck supple. Lymphadenopathy: Cervical: No cervical adenopathy. Right cervica (more content not included)... [facility] 07-25-2021 Influenza virus A and B RNA and SARS-CoV-2 (COVID-19) N gene panel FELA+probe (Resp) COVID 19 RESULT: SARS-CoV-2 (Agent of COVID-19) Not Detected by RT-PCR or equivalent method. at[id number] (TRUE)_EUA This test has been authorized by the FDA under an Emergency Use Authorization (EUA). INFLUENZA A PCR: Negative for Influenza A by RT-PCR INFLUENZA B PCR: Negative for Influenza B by RT-PCR [facility] documented as of this encounter (statuses as of 01/31/2022) [facility]09-20-2005 History of Past illness Narrative* Problem Noted Date Resolved Date Schizoaffective disorder 02/08/2005 008 Osteoporosis 09/23/2019 documented as of this encounter (statuses as of 01/31/2022) [facility]09-20-2005 History of Past illness Narrative* Problem Noted Date Diagnosed Date Resolved Date Schizoaffective disorder 02/08/200504/2008 Osteoporosis 09/23/2019 documented as of this encounter (statuses as of 12/07/2022) [facility] Diagnosis Foot injury, right, initial encounter- Primary [facility] in this encounter [facility] Diagnostic Procedure Only (Urgent) - Closed Specialty Diagnoses / Procedures Referred By Contac t Referred To Contact XR IMAGING Diagnoses Foot injury, right, initial encounter Procedures XR FOOT GENERAL 3V AP/LAT/OBL RIGHT RADEX FOOT COMPLETE MINIMUM 3 VIEWS Fidencio Huggins APRN.CNP [address] [place] [address] Xr Imaging Referral ID Status Reason Start Date Expiration Date V isits Requested Visits Authorized [id number] Closed Auto-Generate d Referral 01/30/2022 03/01/2023 1 1 [facility] Summary Purpose Family History No Family History Records FoundNo Family History Records Found Advance Directives Latest Code Status on File Code Status Date Activated Date Inactivated Comments Full Code 10/11/2022 11:30 PM 10/21/2022 6:56 PM Question Answer Comments Full Code Order Discussed With: Patient Additional Source Comments Source Comments (unrecognize d section and content) In the event this informatio n is protected by the Federal Confidentiality of Alcohol and Drug Abuse Patient Records regulations: The Federal rules restrict any use of the information to criminally investigate or prosecute any alcohol or drug abuse patient.[facility] the event this information is protected by the Federal Confidentiality of Alcohol and Drug Abuse Patient Records regulations: The Federal rules restrict any use of the information to criminally investigate or prosecute any alcohol or drug abuse patient.[facility] the event this information is protected by the Federal Confidentiality of Alcohol and Drug Abuse Patient Records regulations: The Federal rules restrict any use of the information to criminally investigate or prosecute any alcohol or drug abuse patient.[facility] Reason for Visit (unrecogniz ed section and content) Reason Comments Results Reason Comments Results, Lab INFORMATION SOURCE (unrecogn ized section and content) DATE CREATED AUTHOR AUTHOR'S ANG WILSON 11/10/2022 [facility] nt Care Teams (unrecognized sec tion and content) FOR RECORDS PERTAINING TO PATIENTS WHO ARE OR HAVE BEEN ENROLLED IN A CHEMICAL DEPENDENCY/SUBSTANCEABUSE PROGRAM, SOME INFORMATION MAY BE OMITTED. This clinical summary was aggregated from multiple sources. Caution should be exercised in using it in the provision of clinical care. This summary normalizes information from multiple sources, and as a consequence, information in this document may materially change the coding, format and clinical context of patient data. In addition, data may be omitted in some cases. CLINICAL DECISIONS SHOULD BE BASED ON THE PRIMARY CLINICAL RECORDS. [facility]. provides no warranty or guarantee of the accuracy or completeness of information in this document.
--- NOTE | 2023-05-03 15:30 | NURSING ---
[employer] Mk1 Operator Note; Activity Asset: Cody Marti has returned for continued therapy and remains independent in her choice of in room activities. She prefers in room activities over group at this time due to medical condition. She stated she enjoys visits w/family and friends, watching Gun Smoke and resting. She will welcome visit from both the diamond powder mixer and therapy dog when available. Staff will visit weekly and offer in room and out of room activities and respect her right to say no.
[2023-05-03 15:33] VITALS: BMI 28.8
--- NOTE | 2023-05-03 17:49 | PCM.HP.STD ---
HPI - General General Date of Admission: 05/03/23 Date of Service: 05/03/23 Chief Complaint: Here for rehabilitation. HPI Narrative 04/29/2023 DANDRE PERAZA, is a 72 Female who presents to [facility] ED lower extremity injury. Increasing left hip pain, fever, left hip fracture September 2022, infected, Dr. Frances placed antibiotic spacer, 04/12/2023 Dr. Frances removed antibiotic spacer, revised with left hip hemiarthroplasty. Took Oxycodone, tried to get up in bathroom, lowered to floor. Fever 101. Sepsis, left hip infection, antibiotics given. 04/29/2023 Admit to Hospital. 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 04/30/2023 Dr. Lance noted left hip benign, superficial dehiscence, no erythema. discussed with Dr. Frances. 05/01/2023 Comfortable, mild left hip pain. Deep left prosthetic hip infection unlikely. Zosyn, Vancomycin transitioned to oral antibiotics for 14 days. PT/OT for debility. 05/02/2023 Fever 99.5, overnight, mild chills. Eating, drinking well. Patient adamant on discharging home with [facility]. 05/03/2023 Admit to TCU with debility, here for rehabilitation, strengthening, prior to discharge home with . [facility] Medical History (Updated 05/03/23 @ 17:[address] Raji Herrmann MD) Acute diarrhea Anxiety and depression Arthritis Cataracts, bilateral CHI (closed head injury) Chronic anemia GERD (gastroesophageal reflux disease) Hemorrhoids High cholesterol History of renal disease Hypothyroidism IBS (irritable bowel syndrome) Non-smoker Obesity (BMI 30.0-34.9) Osteoarthritis Parkinson disease Pressure ulcer Rheumatoid arthritis Schizophrenia Sleep apnea Ulcerative colitis Uses wheelchair Wears dentures Wears glasses Home Medications pravastatin 40 mg tablet 40 mg PO QHS CHOLESTEROL 03/22/17 [History Last Taken 04/11/23] carbidopa 25 mg-levodopa 100 mg tablet 1 tab PO TID parkinsons 09/13/22 [History Last Taken 04/12/23] citalopram 40 mg tablet 20 mg PO DAILY DEPRESSION 09/13/22 [History Last Taken 04/11/23] levothyroxine 75 mcg tablet 75 mcg PO DAILY THYROID 09/13/22 [History Last Taken 04/12/23] olanzapine 7.5 mg tablet 7.5 mg PO QHS MOOD 09/13/22 [History Last Taken 09/12/22] omeprazole 40 mg capsule,delayed release 40 mg PO DAILY ACID REFLUX 09/13/22 [History Last Taken 04/12/23] potassium chloride 20 mEq tablet,extended release(part/cryst) 20 meq PO BID SUPPLEMENT 09/13/22 [History Last Taken 04/11/23] ferrous sulfate 325 mg (65 mg iron) tablet 325 mg PO DAILY supplimentation 11/24/22 [History Last Taken 04/11/23] ursodiol 250 mg tablet 250 mg PO BID URINATION #60 tabs 12/01/22 [Rx Last Taken 04/11/23] albuterol sulfate 90 mcg/actuation aerosol inhaler 2 inh inhalation Q6H PRN shortness of breath or wheezing 03/22/23 [History Last Taken 04/11/23] cholecalciferol (vitamin D3) 25 mcg (1,000 unit) capsule (Vitamin D3) 25 mcg PO DAILY SUPPLEMENT 03/22/23 [History Last Taken 04/11/23] food supplemt, lactose-reduced 0.08 gram-1.5 kcal/mL oral liquid (Ensure Plus High Protein) 120 ml PO DAILY SUPPLEMENT 03/22/23 [History Last Taken 04/11/23] psyllium seed (sugar) oral powder (Fiber Therapy (psyllium seed-sucrose) oral powder) 1 tbsp PO DAILY SUPPLEMENT 03/22/23 [History Last Taken 04/11/23] terbinafine HCl 250 mg tablet 250 mg PO DAILY TOE FUNGUS 03/22/23 [History Last Taken 04/11/23] acetaminophen 500 mg tablet 1,000 mg (2 x 500 mg) PO Q8 pain #0 tabs 04/15/23 [Rx Last Taken Unknown] ondansetron 4 mg disintegrating tablet 4 mg PO Q8H PRN nausea and vomiting #20 tabs 04/15/23 [Rx Last Taken Unknown] aspirin 81 mg tablet,delayed release 81 mg PO BID heart health 04/29/23 [History Last Taken 05/03/23] amoxicillin 875 mg-potassium clavulanate 125 mg tablet 1 tab PO BID antibiotic 12 days #24 tabs 05/03/23 [Rx Last Taken Unknown] loperamide 2 mg capsule 2 mg PO Q4H PRN PRN DIARRHEA/LOOSE STOOLS 14 days #68 caps 05/03/23 [Rx Last Taken Unknown] Allergy/AdvReac Type Severity Reaction Status Date / Time linaclotide [From Linzess] Allergy Mild chest Verified 04/29/23 18:28 tightness histamine phosphate Allergy Unknown Verified 04/29/23 18:28 [From Histatrol] Family History Mother Heart disease Father Heart disease Brother Heart disease Surgical History H/O colonoscopy with polypectomy History of hip surgery History of knee replacement History of tonsillectomy and adenoidectomy History of tubal ligation Hx of surgical procedure Social History household members: spouse Smoking Status: Never smoker alcohol intake: never substance use type: does not use what type of physical activity do you participate in: walking frequency: 1-2 times per week ROS Constitutional Constitutional: Denies chills, fever(s) or weight gain ENT HEENT: Denies headache(s), nasal congestion or nasal discharge Cardiovascular Cardiovascular: Denies chest pain or palpitations Respiratory/Chest Respiratory/Chest: Denies cough, excessive phlegm production or shortness of breath with exertion Gastrointestinal Gastrointestinal: Denies abdominal pain, nausea or vomiting Genitourinary Genitourinary: Denies dysuria Musculoskeletal Musculoskeletal: Denies joint pain or joint swelling Integumentary Integumentary: Denies rash or wounds Neurologic Neurologic: Denies focal weakness, numbness or tingling Psychiatric Psychiatric: Denies anxiety, auditory hallucinations, depression, homicidal ideation or suicidal ideation Vital Signs Vital Signs Vital Signs: 05/03/23 15:25 Temperature 97.5 F L Temperature Source Temporal Pulse Rate 92 Respiratory Rate 16 Blood Pressure 117/63 Blood Pressure Mean 81 Blood Pressure Position Sitting Blood Pressure Location Left Arm Pulse Ox 97 Oxygen Delivery Method Room Air Weight Weight: 78.335 kg Body Mass Index (BMI) 28.8 Physical Exam Const alert General Appearance: cooperative HEENT normocephalic Eyes PERRL and EOMs intact bilaterally Neck supple, no JVD and no carotid bruits Resp normal respiratory effort, normal air movement and clear to auscultation bilaterally Cardio regular rate and regular rhythm GI normal to inspection, nondistended, normoactive bowel sounds, non-tender and non-distended Extremity normal capillary refill General Extremity: Negative for edema Skin no rashes or lesions noted General Skin Exam: no breakdown Psych affect normal Appearance: appropriate Assessment & Plan Assessment/Plan (1) Debility: (2) Postoperative wound infection of left hip: (3) Parkinson disease: (4) Depression: (5) Rheumatoid arthritis: QUALIFIERS: Rheumatoid arthritis location: unspecified site Rheumatoid factor presence: unspecified presence Qualified Code(s): M06.9 - Rheumatoid arthritis, unspecified (6) Hypothyroidism: QUALIFIERS: Hypothyroidism type: unspecified Qualified Code(s): E03.9 - Hypothyroidism, unspecified (7) Schizophrenia: QUALIFIERS: Schizophrenia type: unspecified Qualified Code(s): F20.9 - Schizophrenia, unspecified (8) GERD (gastroesophageal reflux disease): QUALIFIERS: Esophagitis presence: esophagitis presence not specified Qualified Code(s): K21.9 - Gastro-esophageal reflux disease without esophagitis (9) Hypokalemia: (10) Hyperlipidemia: PLAN: Plan 72 year old female with below past medical history significant for recent revision left hemiarthroplasty, hospitalized for left superficial hip infection, left prosthetic hip infection ruled out, admitted to TCU with debility, here for rehabilitation, strengthening, prior to discharge home with . Debility - PT/OT. Pain - Tylenol 1000mg q8. Bowel - Metamucil 1 packet daily, Loperamide 2mg q4h prn. Adult immunization - Administer pneumonia vaccine, covid vaccine, flu vaccine as appropriate. DVT prophylaxis - Aspirin 81mg bid. Shortness of breath - Albuterol 2 puffs q6 prn. Left superficial hip infection - Augmentin 875mg bid thru 05/15/2023. Parkinson Disease - Sinemet 25/100mg tidac. Vitamin D deficiency - D3 25mcg daily. Depression - Citalopram 20mg daily, stable chronic snf use, GDR not recommended. Nutrition - Ensure Plus 120ml daily. Iron deficiency anemia - Ferrous sulfate 325mg daily. Hypothyroidism - Levothyroxine 75mcg daily. Schizophrenia - Olanzapine 7.5mg qhs, stable chronic oil heaterman use, GDR not recommended. Nausea - Zofran ODT 4mg q8 prn. GERD - Pantoprazole 40mg daily. Hypokalemia - KCL ER 20meq bid. Hyperlipidemia - Pravastatin 40mg qhs.
[2023-05-03] MEDS: Aspirin E.C. 81 MG Tablet PO (18:28)
[2023-05-03] MEDS: Carbidopa/Levodopa 25/100 Tablet PO (18:29)
[2023-05-03] MEDS: Pravastatin 40 MG Tablet PO (20:09)
[2023-05-03] MEDS: Amox/Clavulanate 875 MG Tablet PO (20:09)
[2023-05-03] MEDS: OLANZapine 2.5 MG Tablet 7.5 MG PO (20:09)
[2023-05-03] MEDS: Acetaminophen 500 MG Tablet 1000 MG PO (20:09)
[2023-05-03] MEDS: Potassium Chloride Oral Tablet 20 MEQ PO (20:09)
[2023-05-04 05:29] LABS: Absolute Lymphocyte Count 2.48 X10^3/uL (0.83-4.51); Absolute Neutrophil Count 4.3 X10^3/uL (2.0-7.7); Basophil# 0.04 X10^3/uL; Basophil% 0.4 % (0-1); Eosinophil# 0.47 X10^3/uL; Hematocrit 28.3 % (37-47); Hemoglobin 8.4 g/dL (12.0-15.0); Lymphocyte # 2.48 X10^3/ul (0.83-4.51); Lymphocyte % 26.2 % (19-41); Mean Corp Hgb Conc 29.7 g/dL (32-36); Mean Corpuscular Hgb 29.6 pg (27.0-32.0); Mean Corpuscular Volume 99.6 fL (81-99); Mean Platelet Vol. 10.7 fl (6.2-12.0); Monocyte# 1.99 X10^3/uL; Monocyte% 21.1 % (0-10); NRBC Flagged by Analyzer 0 % (0-5); Neutrophil # 4.33 X10^3/uL (2.7-7.7); Neutrophil % 45.8 % (47-70); POSITIVE DIFFERENTIAL YES; Platelet Count 239 K/mm3 (150-450); RBC Distribution Width CV 13.3 % (11.6-14.6); RBC Distribution Width SD 49.1 fl (35.1-43.9); Red Blood Count 2.84 M/mm3 (4.2-5.4); White Blood Count 9.5 K/mm3 (4.4-11.0)
[2023-05-04 05:35] LABS: Differential Indicated SCAN CRITERIA MET
[2023-05-04] MEDS: Acetaminophen 500 MG Tablet 1000 MG PO ×3 (05:42→21:20)
[2023-05-04] MEDS: Levothyroxine 75 MCG Tablet PO (05:42)
[2023-05-04] MEDS: Carbidopa/Levodopa 25/100 Tablet PO ×3 (05:45→16:24)
[2023-05-04 05:49] LABS: Anion Gap 4 (5-15); BUN 6 mg/dL (7-18); BUN/Creat Ratio 8.3 RATIO (10-20); Calcium,Total 8.3 mg/dL (8.5-10.1); Chloride 112 mmol/L (98-107); Creatinine, Serum 0.72 mg/dL (0.55-1.02); EST Glomerular Filtration Rate 84 mL/min (>60); Est Glom Filt Rate - Afr Amer 101 mL/min (>60); Estimated Creatinine Clearance 44.41 ml/min; Glucose 86 mg/dL (74-106); Sodium Level 144 mmol/L (136-145)
[2023-05-04 07:17] LABS: Differential Comment SCANNED
[2023-05-04] MEDS: Albuterol IH (6.7 GM) 1 PUFF INHALER 2 PUFF INHALATION ×2 (09:20→21:23)
[2023-05-04] MEDS: Aspirin E.C. 81 MG Tablet PO ×2 (09:21→17:13)
[2023-05-04] MEDS: Amox/Clavulanate 875 MG Tablet PO ×2 (09:22→21:20)
[2023-05-04] MEDS: Potassium Chloride Oral Tablet 20 MEQ PO ×2 (09:22→21:21)
[2023-05-04] MEDS: Ferrous Sulfate 325 MG Tablet PO (09:22)
[2023-05-04] MEDS: Citalopram 20 MG Tablet PO (09:22)
[2023-05-04] MEDS: Ensure Plus High Protein 120 ML LIQUID PO (09:23)
[2023-05-04] MEDS: Psyllium 1 PACKET PO (09:23)
[2023-05-04] MEDS: Pantoprazole Sodium 40 MG Tablet PO (09:24)
[2023-05-04] MEDS: Cholecalciferol (VIT D3) 25 MCG TABLET (1,000 UNITS) PO (09:24)
[2023-05-04] MEDS: Nystatin Powder 15gm Bottle 1 APPLIC TOPICAL ×2 (09:30→22:16)
[2023-05-04] MEDS: Tuberculin,Purif.prot.deriv. 50 TU/ML Vial 0.100000000000000006 ML ID (11:13)
--- NOTE | 2023-05-04 11:42 | CHAPLAIN ---
Type of Pastoral Visit _x__ Initial Visit ___ Follow-up Visit ___ On-call Visit ___ General Patient Visit ___ Spiritual Assessment ___ Family Conference ___ Bereavement ___ Rapid Response ___ Code Blue ___ Other (describe below) Pastoral Care Referral From _x__ Patient ___ Family ___ Nurse ___ Physician ___ Windows Desktop Support ___ Conversion Developer ___ Other (describe below) Sacrament/Intervention _x__ Active listening ___ Anointing ___ Synagogue ___ Bereavement ___ Communion ___ Ying exploration ___ _x__ Life review _x__ Prayer ___ Reconciliation ___ Sacrament of Sick ___ Supportive presence ___ Wedding ___ Other (describe below) Pastoral Comments patient just arrived to unit yesterday and is getting settled into a routine; pt answers questions appropriately and is pleasant but does not engage in conversation on her own; pt has family in her home for support; pt is concerned for her whose health is in decline; pt used to be active in scient[employer] but has not in recent years; pt is welcoming of prayer and future visits
[2023-05-04 14:19] VITALS: BP 133/72; PULSE 103; RESP 18; TEMP 35.9; O2SAT 98
--- NOTE | 2023-05-04 14:46 | CASEMGMT ---
Social Work: Met with pt to complete initial assessment. Introduced self and role. Pt had previous stay in September 2022. Verified patient's contacts. Educated to [employer] Medicare benefit with next review date 05/05 and continued stay is not guaranteed. Pt's goal is to return home with spouse however is unable to assist. SW to continue to follow with DC planning. JES Craig
--- NOTE | 2023-05-04 15:02 | CASEMGMT ---
Social Work Pt was asked to have bring in copy of AD. JES Craig
[2023-05-04] MEDS: Pravastatin 40 MG Tablet PO (21:20)
[2023-05-04] MEDS: OLANZapine 2.5 MG Tablet 7.5 MG PO (21:21)
[2023-05-05] MEDS: Levothyroxine 75 MCG Tablet PO (05:49)
[2023-05-05] MEDS: Acetaminophen 500 MG Tablet 1000 MG PO ×3 (05:49→22:08)
[2023-05-05] MEDS: Carbidopa/Levodopa 25/100 Tablet PO ×3 (05:49→18:02)
[2023-05-05 06:04] LABS: Hematocrit 28.2 % (37-47); Hemoglobin 8.5 g/dL (12.0-15.0)
[2023-05-05] MEDS: Potassium Chloride Oral Tablet 20 MEQ PO ×2 (09:07→22:07)
[2023-05-05] MEDS: Psyllium 1 PACKET PO (09:07)
[2023-05-05] MEDS: Amox/Clavulanate 875 MG Tablet PO (09:07)
[2023-05-05] MEDS: Citalopram 20 MG Tablet PO (09:07)
[2023-05-05] MEDS: Pantoprazole Sodium 40 MG Tablet PO (09:07)
[2023-05-05] MEDS: Aspirin E.C. 81 MG Tablet PO ×2 (09:07→18:02)
[2023-05-05] MEDS: Ferrous Sulfate 325 MG Tablet PO (09:07)
[2023-05-05] MEDS: Cholecalciferol (VIT D3) 25 MCG TABLET (1,000 UNITS) PO (09:07)
[2023-05-05] MEDS: Nystatin Powder 15gm Bottle 1 APPLIC TOPICAL ×2 (09:08→22:10)
[2023-05-05] MEDS: Ensure Plus High Protein 120 ML LIQUID PO (09:11)
[2023-05-05 14:22] VITALS: BP 110/64; PULSE 100; RESP 16; TEMP 36.2; O2SAT 98
[2023-05-05 16:25] LABS: Absolute Lymphocyte Count 3.09 X10^3/uL (0.83-4.51); Absolute Neutrophil Count 4.2 X10^3/uL (2.0-7.7); Basophil# 0.05 X10^3/uL; Basophil% 0.5 % (0-1); Eosinophil# 0.45 X10^3/uL; Eosinophils% 4.6 % (0-5); Lymphocyte # 3.09 X10^3/ul (0.83-4.51); Lymphocyte % 31.3 % (19-41); Mean Corp Hgb Conc 30.7 g/dL (32-36); Mean Corpuscular Hgb 30.4 pg (27.0-32.0); Mean Corpuscular Volume 98.9 fL (81-99); Monocyte# 1.88 X10^3/uL; NRBC Flagged by Analyzer 0 % (0-5); Neutrophil # 4.21 X10^3/uL (2.7-7.7); Neutrophil % 42.6 % (47-70); POSITIVE DIFFERENTIAL YES; Platelet Count 248 K/mm3 (150-450); RBC Distribution Width CV 13.5 % (11.6-14.6); Red Blood Count 2.83 M/mm3 (4.2-5.4); White Blood Count 9.9 K/mm3 (4.4-11.0)
--- NOTE | 2023-05-05 16:33 | PCM.PN.DRR ---
Documented by User: Arnav Zamarripa 05/05/23 16:59 TCU RX Drug Regimen Review Subjective/Objective Subjective/Objective: Subjective: 72 year old female with below past medical history significant for recent revision left hemiarthroplasty, hospitalized for left superficial hip infection, left prosthetic hip infection ruled out, admitted to TCU with debility, here for rehabilitation, strengthening, prior to discharge home with . Objective: Allergies linaclotide [From Linzess] Allergy (Mild, Verified 04/29/23 18:28) chest tightness histamine phosphate [From Histatrol] Allergy (Verified 04/29/23 18:28) Unknown Current Medications Generic Name Dose Route Start Last Admin Trade Name Freq PRN Reason Stop Dose Admin Acetaminophen 1,000 mg 05/03/23 22:00 05/05/23 13:08 Acetaminophen 500 Mg Tablet PO 1,000 mg Q8 JENA Administration Albuterol Sulfate 2 puff 05/03/23 15:56 05/04/23 21:23 Albuterol Ih (6.7 Gm) 1 Puff Inhaler INHALATION 2 puff Q6H PRN Administration shortness of breath or wheezing Aspirin 81 mg 05/03/23 17:00 05/05/23 09:07 Aspirin E.C. 81 Mg Tablet PO 81 mg BIDCM JENA Administration Carbidopa/Levodopa 1 tablet 05/03/23 16:45 05/05/23 13:08 Carbidopa/Levodopa 25/100 Tablet PO 1 tablet TIDAC JENA Administration Cholecalciferol 25 mcg 05/04/23 10:00 05/05/23 09:07 Cholecalciferol (Vit D3) 25 Mcg Tablet (1,000 Units) PO 25 mcg DAILY JENA Administration Citalopram Hydrobromide 20 mg 05/04/23 10:00 05/05/23 09:07 Citalopram 20 Mg Tablet PO 20 mg DAILY JENA Administration Doxycycline Monohydrate 100 mg 05/05/23 22:00 Doxycycline 100 Mg Capsule PO 05/15/23 22:01 BID JENA Ferrous Sulfate 325 mg 05/04/23 08:00 05/05/23 09:07 Ferrous Sulfate 325 Mg Tablet PO 325 mg DAILYCM JENA Administration Piperacillin Sod/Tazobactam 50 mls @ 12.5 mls/hr 05/05/23 16:10 Sod 3.375 gm/ Sodium Chloride IV 05/15/23 16:11 Q8 JENA Levothyroxine Sodium 75 mcg 05/04/23 06:00 05/05/23 05:49 Levothyroxine 75 Mcg Tablet PO 75 mcg DAILY@0600 JENA Administration Loperamide HCl 2 mg 05/03/23 15:27 Loperamide 2 Mg Capsule PO Q4H PRN PRN DIARRHEA/LOOSE STOOLS Nutritional Formula (Lactose Free) 120 ml 05/04/23 10:00 05/05/23 09:11 Ensure Plus High Protein 120 Ml Liquid PO 120 ml DAILY JENA Administration Nystatin 1 applic 05/04/23 10:00 05/05/23 09:08 Nystatin Powder 15gm Bottle TOPICAL 1 applic BID JENA Administration Protocol Olanzapine 7.5 mg 05/03/23 22:00 05/04/23 21:21 Olanzapine 2.5 Mg Tablet PO 7.5 mg QHS JENA Administration Ondansetron HCl 4 mg 05/03/23 15:27 Ondansetron Odt 4 Mg Tablet PO Q8H PRN nausea and vomiting Pantoprazole Sodium 40 mg 05/04/23 10:00 05/05/23 09:07 Pantoprazole Sodium 40 Mg Tablet PO 40 mg DAILY JENA Administration Potassium Chloride 20 meq 05/03/23 22:00 05/05/23 09:07 Potassium Chloride Oral Tablet 20 Meq PO 20 meq BID JENA Administration Pravastatin Sodium 40 mg 05/03/23 22:00 05/04/23 21:20 Pravastatin 40 Mg Tablet PO 40 mg QHS JENA Administration Psyllium Hydrophilic Mucilloid 1 packet 05/04/23 10:00 05/05/23 09:07 Psyllium 1 Packet PO 1 packet DAILY JENA Administration Tuberculin PPD 0.1 ml 05/11/23 10:00 Tuberculin,Purif.Prot.Deriv. 50 Tu/Ml Vial ID 05/11/23 10:01 X1 ONE Problem List (Updated 05/05/23 @ 12:[address] Bill Brock MD) Schizophrenia (Acute) Parkinson disease (Acute) Depression (Acute) Hyperlipidemia (Acute) Debility (Acute) Hypothyroidism (Chronic) Rheumatoid arthritis (Chronic) Hypokalemia (Acute) GERD (gastroesophageal reflux disease) (Chronic) Vital Signs Temp Pulse Resp BP Pulse Ox O2 Del Method 97.2 F L 100 16 110/64 98 Room Air 05/05/23 14:22 05/05/23 14:22 05/05/23 14:22 05/05/23 14:22 05/05/23 14:22 05/05/23 14:22 Oxygen Delivery Method Room Air Weight: 78.335 kg Body Mass Index (BMI) 28.8 Assessment/Plan: 1. Pain: acetaminophen 1000 mg Q8H. Please continue to monitor for pain levels, and LFTs (19/<6 U/L on 04/30/23). 2. Bowel: loperamide 2 mg PO Q4H PRN diarrhea, psyllium 1 packet PO daily. The patient has not required any PRN loperamide yet this admission. The patient's last documented bowel movement was 04/15/23. Please continue to monitor for bowel movements, PRN medication usage, diarrhea and constipation. The patient has not had a documented bowel movement since 04/15/23, please consider adding a medication PRN for constipation such as senna/docusate 2 tabs PO BID PRN constipation. 3. Left superficial hip infection: piperacillin/tazobactam 3.375 g IV Q8H through 05/15/23, doxycycline 100 mg PO BID through 05/15/23. Please continue to monitor for resolution of infection, WBC count (WBC = 9.5 K/mm3 on 05/04/23), for fevers (recent temps = 96.6-99.5 F), for chills, for diarrhea, and for GI distress with doxycycline administration. 4. DVT prophylaxis: aspirin 81 mg PO BID with meals. Please continue to monitor for s/s of a DVT such as erythema/swelling/pain in the lower extremity, as well as for bleeding/excessive bruising, platelet count (Plt = 239 K/mm3 on 05/04/23), and for GI distress with aspirin administration 5. Shortness of breath: albuterol inhaler 2 puffs Q6H PRN shortness of breath. The patient has used 2 PRN doses of albuterol so far this admission. Please continue to monitor for shortness of breath, heart rates (recent range = 69-103 beats/min), and for palpitations. 6. Parkinson's disease: carbidopa/levodopa 25/100 mg tablet PO TID before meals. Please continue to monitor for control of PD symptoms, dyskinesias,nausea/vomiting, blood pressures (recent range = 105-133/59-102 mmHg), and for constipation. 7. Hypothyroidism: levothyroxine 75 mcg PO daily. Please continue to monitor for s/s of hypo/hyperthyroidism as well as TSH/T4 levels (TSH = 0.82 uIU/mL on 04/30/23, and free T4 = 1.65 ng/dL on 05/10/16). 8. GERD: pantoprazole 40 mg PO daily. Please continue to monitor for s/s of GERD as well as for diarrhea that could indicate clostridium difficile infection and for s/s of bone resorption such as fractures. 9. Hyperlipidemia: pravastatin 40 mg PO QHS. Please continue to monitor lipid levels (cholesterol = 142 mg/dL on 02/21/23, and LDL = 59 mg/dL on 02/21/23), as well as LFTs (19/<6 U/L on 04/30/23), and for myopathy. 10. Hypokalemia: potassium chloride 20 mEq PO BID. Please continue to monitor potassium levels (K = 3.8 mmol/L on 05/05/23), as well as for GI distress with potassium administration. If GI distress occurs with potassium administration please consider giving with food. 11. Nausea: ondansetron 4 mg PO Q8H PRN nausea. The patient has not required any PRN doses of ondansetron so far this admission. Please continue to monitor for nausea, PRN medication usage, constipation and headaches. 12. Iron deficiency anemia: ferrous sulfate 325 mg PO daily. Please continue to monitor iron levels (no recent iron levels documented), as well as hemoglobin levels (Hgb = 8.5 g/dL on 05/05/23) and for GI distress with iron tablet administration. 13. Vitamin D deficiency: cholecalciferol 25 mcg PO daily. Please continue to monitor for s/s of vitamin D deficiency as well as vitamin D levels (vitamin D = 53.6 ng/mL on 02/21/23). 14. Nutrition: ensure plus high protein 120 mL PO daily. Please continue to monitor overall nutritional status. Assessment/Plan for indications treated with psychotropic medications: 1. Depression: citalopram 20 mg PO daily. Please see provider note regarding stable chronic long-term use GDR not recommended. Please continue to monitor for s/s of depression, sodium levels (Na = 142 mmol/L on 05/05/23), for s/s of serotonin syndrome, for nausea, dry mouth, and drowsiness. 2. Schizophrenia: olanzapine 7.5 mg PO QHS. Pleas see provider note regarding stable chronic long-term use GDR not recommended. Please continue to monitor for s/s of worsening schizophrenia symptoms, for anticholinergic side effects including dry mouth, dry eyes, constipation and delirium, for NMS, sedation, and for s/s of orthostasis. Medical chart and medication regimen reviewed. The following medication irregularities or issues were identified: 1. Bowel: loperamide 2 mg PO Q4H PRN diarrhea, psyllium 1 packet PO daily. The patient has not required any PRN loperamide yet this admission. The patient's last documented bowel movement was 04/15/23. Please continue to monitor for bowel movements, PRN medication usage, diarrhea and constipation. The patient has not had a documented bowel movement since 04/15/23, please consider adding a medication PRN for constipation such as senna/docusate 2 tabs PO BID PRN constipation. 2. Iron deficiency anemia: ferrous sulfate 325 mg PO daily. Please continue to monitor iron levels (no recent iron levels documented), as well as hemoglobin levels (Hgb = 8.5 g/dL on 05/05/23) and for GI distress with iron tablet administration. Date Date of Note:: 05/05/23 Documented by User: Dr. Raji Herrmann MD 05/05/23 19:21 TCU RX Drug Regimen Review Provider Comments Provider responsibility Provider Comments to Recommendations by Pharmacy: Agree
[2023-05-05 16:40] LABS: Differential Indicated SCAN CRITERIA MET
[2023-05-05 16:43] LABS: ALB/GLOB Ratio 0.6 RATIO (0.9-2.4); AST(SGOT) 15 U/L (15-37); Alanine Aminotransfer ALT/SGPT 10 U/L (13-56); Albumin, Serum 2.3 g/dL (3.2-5.0); Alkaline Phosphatase 156 U/L (45-117); Anion Gap 5 (5-15); BUN 6 mg/dL (7-18); BUN/Creat Ratio 8.7 RATIO (10-20); Calcium,Total 8.2 mg/dL (8.5-10.1); Chloride 110 mmol/L (98-107); Creatinine, Serum 0.69 mg/dL (0.55-1.02); EST Glomerular Filtration Rate 89 mL/min (>60); Est Glom Filt Rate - Afr Amer 108 mL/min (>60); Estimated Creatinine Clearance 44.41 ml/min; Glucose 84 mg/dL (74-106); Potassium 3.8 mmol/L (3.5-5.1); Protein, Total 6.3 g/dL (6.4-8.2); Sodium Level 142 mmol/L (136-145)
[2023-05-05 16:43] LABS: Erythrocyte Sedimentation Rate 18 mm/hr (0-30)
[2023-05-05 16:50] LABS: Anisocytosis 1+; Macrocytosis 1+; Platelet Estimate ADEQUATE (ADEQ); Red Cell Morphology N CHROM NORMAL (NORM C&C)
[2023-05-05] MEDS: Piperacil/Tazobactam 3.375 GM in 0.9% Normal Saline (50mL MB+) 50 ML IV ×2 (18:03→22:10)
[2023-05-05] MEDS: Doxycycline 100 MG CAPSULE PO (22:07)
[2023-05-05] MEDS: Pravastatin 40 MG Tablet PO (22:09)
[2023-05-05] MEDS: OLANZapine 2.5 MG Tablet 7.5 MG PO (22:10)
[2023-05-05 22:22] VITALS: O2SAT 97
[2023-05-06] MEDS: Carbidopa/Levodopa 25/100 Tablet PO ×3 (06:19→16:49)
[2023-05-06] MEDS: Levothyroxine 75 MCG Tablet PO (06:19)
[2023-05-06] MEDS: Acetaminophen 500 MG Tablet 1000 MG PO ×3 (06:19→20:08)
[2023-05-06] MEDS: 0.9% Saline Lock 10 ML Syringe IV ×2 (06:20→13:48)
[2023-05-06] MEDS: Piperacil/Tazobactam 3.375 GM in 0.9% Normal Saline (50mL MB+) 50 ML IV ×3 (06:22→21:55)
[2023-05-06] MEDS: Aspirin E.C. 81 MG Tablet PO ×2 (08:01→16:49)
[2023-05-06] MEDS: Ferrous Sulfate 325 MG Tablet PO (08:01)
[2023-05-06] MEDS: Potassium Chloride Oral Tablet 20 MEQ PO ×2 (08:02→20:09)
[2023-05-06] MEDS: Doxycycline 100 MG CAPSULE PO ×2 (08:02→20:08)
[2023-05-06] MEDS: Citalopram 20 MG Tablet PO (08:02)
[2023-05-06] MEDS: Nystatin Powder 15gm Bottle 1 APPLIC TOPICAL ×2 (08:03→20:12)
[2023-05-06] MEDS: Psyllium 1 PACKET PO (08:03)
[2023-05-06] MEDS: Pantoprazole Sodium 40 MG Tablet PO (08:04)
[2023-05-06] MEDS: Ensure Plus High Protein 120 ML LIQUID PO (08:04)
[2023-05-06] MEDS: Cholecalciferol (VIT D3) 25 MCG TABLET (1,000 UNITS) PO (08:05)
[2023-05-06] MEDS: Albuterol IH (6.7 GM) 1 PUFF INHALER 2 PUFF INHALATION ×2 (08:53→16:50)
[2023-05-06 09:20] VITALS: BP 105/58; PULSE 88
[2023-05-06] MEDS: 0.9% Normal Saline 250 ML IV.SOLN. IV (13:47)
[2023-05-06 14:28] VITALS: BP 109/57; PULSE 99; RESP 16; TEMP 36; O2SAT 98
--- NOTE | 2023-05-06 14:40 | NURSING ---
Pt takes Ursodiol 250mg BID at home. Dr. Herrmann updated N.O. for Ursodiol 250mg BID. Order read back.
[2023-05-06] MEDS: OLANZapine 2.5 MG Tablet 7.5 MG PO (20:07)
[2023-05-06] MEDS: Ursodiol 250 MG Tablet PO (20:08)
[2023-05-06] MEDS: Pravastatin 40 MG Tablet PO (20:08)
[2023-05-07] MEDS: Carbidopa/Levodopa 25/100 Tablet PO ×3 (06:16→17:15)
[2023-05-07] MEDS: Acetaminophen 500 MG Tablet 1000 MG PO ×3 (06:17→20:19)
[2023-05-07] MEDS: Levothyroxine 75 MCG Tablet PO (06:18)
[2023-05-07] MEDS: Piperacil/Tazobactam 3.375 GM in 0.9% Normal Saline (50mL MB+) 50 ML IV ×3 (06:20→22:17)
[2023-05-07 06:51] LABS: Absolute Lymphocyte Count 2.29 X10^3/uL (0.83-4.51); Absolute Neutrophil Count 5.9 X10^3/uL (2.0-7.7); Basophil# 0.06 X10^3/uL; Basophil% 0.5 % (0-1); Eosinophil# 0.56 X10^3/uL; Hematocrit 29.6 % (37-47); Hemoglobin 8.9 g/dL (12.0-15.0); Lymphocyte # 2.29 X10^3/ul (0.83-4.51); Lymphocyte % 20.4 % (19-41); Mean Corp Hgb Conc 30.1 g/dL (32-36); Mean Corpuscular Hgb 29.9 pg (27.0-32.0); Mean Corpuscular Volume 99.3 fL (81-99); Mean Platelet Vol. 10.9 fl (6.2-12.0); Monocyte% 16.9 % (0-10); NRBC Flagged by Analyzer 0 % (0-5); Neutrophil # 5.93 X10^3/uL (2.7-7.7); Neutrophil % 52.9 % (47-70); POSITIVE DIFFERENTIAL YES; Platelet Count 269 K/mm3 (150-450); RBC Distribution Width CV 13.7 % (11.6-14.6); RBC Distribution Width SD 49.5 fl (35.1-43.9); Red Blood Count 2.98 M/mm3 (4.2-5.4); White Blood Count 11.2 K/mm3 (4.4-11.0)
[2023-05-07 07:01] LABS: Differential Indicated SCAN CRITERIA MET
[2023-05-07] MEDS: Doxycycline 100 MG CAPSULE PO ×2 (08:28→20:20)
[2023-05-07] MEDS: Potassium Chloride Oral Tablet 20 MEQ PO ×2 (08:28→20:21)
[2023-05-07] MEDS: Cholecalciferol (VIT D3) 25 MCG TABLET (1,000 UNITS) PO (08:28)
[2023-05-07] MEDS: Ursodiol 250 MG Tablet PO ×2 (08:28→20:20)
[2023-05-07] MEDS: Psyllium 1 PACKET PO (08:28)
[2023-05-07] MEDS: Aspirin E.C. 81 MG Tablet PO ×2 (08:28→17:15)
[2023-05-07] MEDS: Citalopram 20 MG Tablet PO (08:28)
[2023-05-07] MEDS: Ensure Plus High Protein 120 ML LIQUID PO (08:28)
[2023-05-07] MEDS: Ferrous Sulfate 325 MG Tablet PO (08:28)
[2023-05-07] MEDS: Pantoprazole Sodium 40 MG Tablet PO (08:28)
[2023-05-07] MEDS: Nystatin Powder 15gm Bottle 1 APPLIC TOPICAL ×2 (08:29→20:23)
[2023-05-07 08:35] VITALS: BP 103/63; PULSE 102
[2023-05-07 08:47] LABS: Differential Comment SCANNED
[2023-05-07] MEDS: 0.9% Saline Lock 10 ML Syringe IV ×2 (11:44→14:12)
[2023-05-07 15:02] VITALS: BP 104/66; PULSE 97; RESP 20; TEMP 35.8; O2SAT 97
[2023-05-07] MEDS: OLANZapine 2.5 MG Tablet 7.5 MG PO (20:22)
[2023-05-07] MEDS: Pravastatin 40 MG Tablet PO (20:23)
[2023-05-08] MEDS: Carbidopa/Levodopa 25/100 Tablet PO ×3 (05:55→17:08)
[2023-05-08] MEDS: Levothyroxine 75 MCG Tablet PO (05:55)
[2023-05-08] MEDS: Acetaminophen 500 MG Tablet 1000 MG PO ×3 (05:55→21:40)
[2023-05-08] MEDS: 0.9% Saline Lock 10 ML Syringe IV ×3 (05:56→22:42)
[2023-05-08 05:58] LABS: Absolute Lymphocyte Count 2.26 X10^3/uL (0.83-4.51); Absolute Neutrophil Count 6.2 X10^3/uL (2.0-7.7); Basophil# 0.07 X10^3/uL; Basophil% 0.6 % (0-1); Eosinophil# 0.53 X10^3/uL; Eosinophils% 4.7 % (0-5); Hematocrit 30.7 % (37-47); Hemoglobin 9.2 g/dL (12.0-15.0); Lymphocyte # 2.26 X10^3/ul (0.83-4.51); Lymphocyte % 19.9 % (19-41); Mean Platelet Vol. 10.6 fl (6.2-12.0); Monocyte# 1.92 X10^3/uL; Monocyte% 16.9 % (0-10); NRBC Flagged by Analyzer 0 % (0-5); Neutrophil % 54.4 % (47-70); POSITIVE DIFFERENTIAL YES; Platelet Count 285 K/mm3 (150-450); RBC Distribution Width CV 13.6 % (11.6-14.6); RBC Distribution Width SD 49.8 fl (35.1-43.9); Red Blood Count 3.07 M/mm3 (4.2-5.4); White Blood Count 11.4 K/mm3 (4.4-11.0)
[2023-05-08 06:16] LABS: Differential Indicated SCAN CRITERIA MET
[2023-05-08] MEDS: Ferrous Sulfate 325 MG Tablet PO (08:15)
[2023-05-08] MEDS: Aspirin E.C. 81 MG Tablet PO ×2 (08:15→17:55)
[2023-05-08] MEDS: Potassium Chloride Oral Tablet 20 MEQ PO ×2 (08:15→17:55)
[2023-05-08] MEDS: Piperacil/Tazobactam 3.375 GM in 0.9% Normal Saline (50mL MB+) 50 ML IV ×2 (08:15→21:45)
[2023-05-08] MEDS: Doxycycline 100 MG CAPSULE PO ×2 (08:16→21:39)
[2023-05-08] MEDS: Cholecalciferol (VIT D3) 25 MCG TABLET (1,000 UNITS) PO (08:16)
[2023-05-08] MEDS: Nystatin Powder 15gm Bottle 1 APPLIC TOPICAL ×2 (08:16→21:41)
[2023-05-08] MEDS: Pantoprazole Sodium 40 MG Tablet PO (08:16)
[2023-05-08] MEDS: Citalopram 20 MG Tablet PO (08:16)
[2023-05-08] MEDS: Ensure Plus High Protein 120 ML LIQUID PO (08:16)
[2023-05-08] MEDS: Ursodiol 250 MG Tablet PO ×2 (08:16→21:41)
--- NOTE | 2023-05-08 08:58 | NURSING ---
MRI left hip order states w/ and w/o contrast. Note left that patient reports damage to kidneys last time contrast used. Updated Dr. Herrmann, order for MRI left hip without contrast. Received auth from insurance. Auth #[id number]
[2023-05-08 09:10] LABS: Differential Comment SCANNED
--- NOTE | 2023-05-08 11:55 | CASEMGMT ---
Social Work BIMS(15) and PHQ-9(3) completed this date for MDS assessment. Pt scored a 3 in PHQ-9(1's for little interest in doing things, feeling down, and poor appetite) due to recent health issues and being here away from home. Pt states he appetite is improving however. TALIA Martin
[2023-05-08 13:15] VITALS: BP 119/76; PULSE 104; RESP 16; TEMP 36.2; O2SAT 93
[2023-05-08 13:28] LABS: Pathologist Review Reviewed
[2023-05-08 13:44] LABS: Pathologist Review Reviewed
--- NOTE | 2023-05-08 14:10 | NURSING ---
Offered covid vaccine. Per patient she had a covid shot in March, too early to receive another dose.
--- NOTE | 2023-05-08 14:15 | NS ---
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
--- NOTE | 2023-05-08 15:05 | NURSING ---
PT LEFT BY WHEEL CHAIR WITH FAMILY FOR APPOINTMENT WITH AT 1430.
--- NOTE | 2023-05-08 17:14 | NURSING ---
Return from appointment with . To have surgery on 05/10/23 for wound debridement to left hip. DR. Frances request patient to receive 2 units PRBC on 05/09/23 to have optimized pre-op.
--- NOTE | 2023-05-08 17:14 | NURSING ---
PT RETURNED FROM APPOINTMENT WITH BY DORY CHRIS. SEE NEW ORDERS.
--- NOTE | 2023-05-08 19:17 | NURSING ---
PT IS TO RECEIVE 2 UNITS OF BLOOD ON 05/09/23 AND SURGERY ON 05/10/23. PT IS TO BE DISCHARGED FROM FLOOR THAT DAY AND POSSIBLE RETURN ON 05/12/23.
--- NOTE | 2023-05-08 19:42 | PCM.DC.SUM ---
Providers Date of Admission: 05/03/23 Primary Care Physician: Dr. Raji Herrmann MD Reason For Visit: INFECTION L HIP Diagnosis Discharge Diagnosis (1) Debility: Status: Acute Code(s): R53.81 - Other malaise (2) Postoperative wound infection of left hip: Status: Inactive Code(s): T81.49XA - Infection following a procedure, other surgical site, initial encounter (3) Parkinson disease: Status: Acute Code(s): G20 - Parkinson's disease (4) Depression: Status: Acute Code(s): F32.A - Depression, unspecified (5) Rheumatoid arthritis: Status: Chronic Code(s): M06.9 - Rheumatoid arthritis, unspecified Qualifiers: Rheumatoid arthritis location: unspecified site Rheumatoid factor presence: unspecified presence Qualified Code(s): M06.9 - Rheumatoid arthritis, unspecified (6) Hypothyroidism: Status: Chronic Code(s): E03.9 - Hypothyroidism, unspecified Qualifiers: Hypothyroidism type: unspecified Qualified Code(s): E03.9 - Hypothyroidism, unspecified (7) Schizophrenia: Status: Acute Code(s): F20.9 - Schizophrenia, unspecified Qualifiers: Schizophrenia type: unspecified Qualified Code(s): F20.9 - Schizophrenia, unspecified (8) GERD (gastroesophageal reflux disease): Status: Chronic Code(s): K21.9 - Gastro-esophageal reflux disease without esophagitis Qualifiers: Esophagitis presence: esophagitis presence not specified Qualified Code(s): K21.9 - Gastro-esophageal reflux disease without esophagitis (9) Hypokalemia: Status: Acute Code(s): E87.6 - Hypokalemia (10) Hyperlipidemia: Status: Acute Code(s): E78.5 - Hyperlipidemia, unspecified Plan 72 year old female with below past medical history significant for recent revision left hemiarthroplasty, hospitalized for left superficial hip infection, left prosthetic hip infection ruled out, admitted to TCU with debility, here for rehabilitation, strengthening, prior to discharge home with . Debility - PT/OT. Pain - Tylenol 1000mg q8. Bowel - Metamucil 1 packet daily, Loperamide 2mg q4h prn. Adult immunization - Administer pneumonia vaccine, covid vaccine, flu vaccine as appropriate. DVT prophylaxis - Aspirin 81mg bid. Shortness of breath - Albuterol 2 puffs q6 prn. Left superficial hip infection - Augmentin 875mg bid thru 05/15/2023. Parkinson Disease - Sinemet 25/100mg tidac. Vitamin D deficiency - D3 25mcg daily. 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 Nutrition - Ensure Plus 120ml daily. Iron deficiency anemia - Ferrous sulfate 325mg daily. Hypothyroidism - Levothyroxine 75mcg daily. Schizophrenia - Olanzapine 7.5mg qhs, stable chronic contract project manager use, GDR not recommended. Nausea - Zofran ODT 4mg q8 prn. GERD - Pantoprazole 40mg daily. Hypokalemia - KCL ER 20meq bid. Hyperlipidemia - Pravastatin 40mg qhs. Medications at Discharge Home Medications pravastatin 40 mg tablet 40 mg PO QHS CHOLESTEROL 03/22/17 carbidopa 25 mg-levodopa 100 mg tablet 1 tab PO TID parkinsons 09/13/22 citalopram 40 mg tablet 20 mg PO DAILY DEPRESSION 09/13/22 levothyroxine 75 mcg tablet 75 mcg PO DAILY THYROID 09/13/22 olanzapine 7.5 mg tablet 7.5 mg PO QHS MOOD 09/13/22 omeprazole 40 mg capsule,delayed release 40 mg PO DAILY ACID REFLUX 09/13/22 potassium chloride 20 mEq tablet,extended release(part/cryst) 20 meq PO BID SUPPLEMENT 09/13/22 ferrous sulfate 325 mg (65 mg iron) tablet 325 mg PO DAILY supplimentation 11/24/22 albuterol sulfate 90 mcg/actuation aerosol inhaler 2 inh inhalation Q6H PRN shortness of breath or wheezing 03/22/23 cholecalciferol (vitamin D3) 25 mcg (1,000 unit) capsule (Vitamin D3) 25 mcg PO DAILY SUPPLEMENT 03/22/23 food supplemt, lactose-reduced 0.08 gram-1.5 kcal/mL oral liquid (Ensure Plus High Protein) 120 ml PO DAILY SUPPLEMENT 03/22/23 psyllium seed (sugar) oral powder (Fiber Therapy (psyllium seed-sucrose) oral powder) 1 tbsp PO DAILY SUPPLEMENT 03/22/23 terbinafine HCl 250 mg tablet 250 mg PO DAILY TOE FUNGUS 03/22/23 acetaminophen 500 mg tablet 1,000 mg (2 x 500 mg) PO Q8 pain #0 tabs 04/15/23 ondansetron 4 mg disintegrating tablet 4 mg PO Q8H PRN nausea and vomiting #20 tabs 04/15/23 aspirin 81 mg tablet,delayed release 81 mg PO BID [facility] 04/29/23 amoxicillin 875 mg-potassium clavulanate 125 mg tablet 1 tab PO BID antibiotic 12 days #24 tabs 05/03/23 loperamide 2 mg capsule 2 mg PO Q4H PRN PRN DIARRHEA/LOOSE STOOLS 14 days #68 caps 05/03/23 ursodiol 250 mg tablet 250 mg PO BID URINATION #60 tabs 05/05/23 Hospital Course Operations None Procedures None Summary of Care Provided Minutes Spent on Discharge: 35 Hospital Course: 72 year old female with below past medical history significant for recent revision left hemiarthroplasty, hospitalized for left superficial hip infection, left prosthetic hip infection ruled out, admitted to TCU with debility, here for rehabilitation, strengthening, prior to discharge home with . 05/05/2023 Resident c/o left hip pain. Exam showed firm, indurated, tender, erythematous, warm left hip along incision. Antibiotics changed to Zosyn, Doxycycline. 05/08/2023 MRI left hip Left hip arthroplasty, with large 7.3 x 11.3 x 22.0 cm periprosthetic fluid collection. Overall imaging findings could be related to infection versus inflammatory pseudotumor. Absent abductor tendon attachments to the left greater trochanter, probably torn. Subcutaneous soft tissue edema along the left buttock and lateral aspect of the left hip. 05/09/2023 Transfuse 2 units PRBC to optimize resident for surgery. Discussed with Dr. Frances, he would like to take her to surgery 05/10/2023 for evacuation of left hip seroma, then once stable, return resident to TCU. Discharge to [facility] for left hip surgery with Dr. Frances 05/10/2023. Physical Exam Const alert General Appearance: cooperative HEENT normocephalic Eyes PERRL and EOMs intact bilaterally Neck supple, no JVD and no carotid bruits Resp normal respiratory effort, normal air movement and clear to auscultation bilaterally Cardio regular rate and regular rhythm GI normal to inspection, nondistended, normoactive bowel sounds, non-tender and non-distended Extremity normal capillary refill General Extremity: Negative for edema Skin no rashes or lesions noted General Skin Exam: no breakdown Psych affect normal Appearance: appropriate Weight / BMI Weight Weight: 78.335 kg Body Mass Index (BMI) 28.8 ABG / Lab / Microbiology Data 05/08/23 05:20 05/05/23 05:24 Laboratory: Laboratory Results - last 24 hr 05/07/23 06:15: Diff Path Review Reviewed 05/08/23 05:20: WBC 11.4 H, RBC 3.07 L, Hgb 9.2 L, Hct 30.7 L, MCV 100.0 H, MCH 30.0, MCHC 30.0 L, RDW Std Deviation 49.8 H, RDW Coeff of Edwar 13.6, Plt Count 285, MPV 10.6, Immature Gran % (Auto) 3.500 H, Neut % (Auto) 54.4, Lymph % (Auto) 19.9, [place] % (Auto) 16.9 H, Eos % (Auto) 4.7, Baso % (Auto) 0.6, Absolute Neuts (auto) 6.2, Absolute Lymphs (auto) 2.26, Nucleated RBC % 0, Differential Comment SCANNED, Diff Path Review Reviewed D/C Instructions Discharge Diet: - (NPO.) Weight Bearing Status: Weight bearing as tolerated Call your doctor if you observe: Fever of 101 or Higher, Inability to urinate, Inability to have a bowel movement, Using more than 1 pad per hour, Shortness of breath, Dizziness, Swelling in the ankles, Chest pain and Uncontrolled pain Additional Instructions: Discharge to [facility] for left hip surgery with Dr. Frances 05/10/2023. Please Follow Up With: When: As scheduled. Meaningful Use Info Meaningful Use Diagnoses (Choose all that apply): None applicable Discharge Plan Admission Admit Date/Time: 05/03/23 15:16 Primary Reason for Your Visit: Debility. Attending Provider: Raji Herrmann Chi Primary Care Provider: Raji Herrmann Chi Instructions Additional Instructions / Restrictions: Discharge to [facility] for left hip surgery with Dr. Frances 05/10/2023. Discharge Orders/Prescriptions Prescriptions: No Action ursodiol 250 mg tablet 250 mg PO BID Qty: 60 2RF pravastatin 40 MG tablet 40 mg PO QHS citalopram 40 mg tablet 20 mg PO DAILY Patient Comments: confirmed with daughter pt is taking 20 mg. olanzapine 7.5 mg tablet 7.5 mg PO QHS potassium chloride 20 mEq tablet,ER particles/crystals 20 meq PO BID levothyroxine 75 mcg tablet 75 mcg PO DAILY carbidopa-levodopa 25-100 mg tablet 1 tab PO TID omeprazole 40 mg capsule,delayed release(DR/EC) 40 mg PO DAILY ferrous sulfate 325 mg (65 mg iron) tablet 325 mg PO DAILY Patient Comments: Take 1 tablet by mouth every morning cholecalciferol (vitamin D3) [Vitamin D3] 25 mcg (1,000 unit) capsule 25 mcg PO DAILY Fiber Therapy(psyl seed-sugar) Powder 1 tbsp PO DAILY albuterol sulfate 90 mcg/actuation HFA aerosol inhaler 2 inh INHALATION Q6H PRN (Reason: shortness of breath or wheezing) Patient Comments: INHALE 2 PUFFS BY MOUTH SIX TIMES DAILY NEEDED FOR SHORTNESS OF BREATH terbinafine HCl 250 mg tablet 250 mg PO DAILY Ensure Plus High Protein 0.08 gram-1.5 kcal/mL Liquid 120 ml PO DAILY acetaminophen 500 mg Tablet 1,000 mg PO Q8 Qty: 0 0RF ondansetron 4 mg tablet,disintegrating 4 mg PO Q8H PRN (Reason: nausea and vomiting) Qty: 20 0RF aspirin 81 mg tablet,delayed release (DR/EC) 81 mg PO BID loperamide 2 mg Capsule 2 mg PO Q4H PRN PRN (Reason: DIARRHEA/LOOSE STOOLS) 14 Days Qty: 68 0RF amoxicillin-pot clavulanate 875-125 mg tablet 1 tab PO BID 12 Days Qty: 24 0RF Referrals / Follow Up: Raji Herrmann Chi, MD [Primary Care Provider] - Disposition Disposition (needs filled in before D/C Order can be placed): [facility]
[2023-05-08] MEDS: OLANZapine 2.5 MG Tablet 7.5 MG PO (21:40)
[2023-05-08] MEDS: Pravastatin 40 MG Tablet PO (21:41)
--- NOTE | 2023-05-08 22:04 | PCM.HP.BLA ---
History and Physical History and Physical? Patient Name: Kaia Hale : 1950 From:? DEANDRA AMADO PA-C? DATE OF PRE-OPERATIVE EXAM: 05/08/2023 DATE OF SURGERY:? 05/10/2023 SCHEDULED PROCEDURE:? Revision left hip with irrigation debridement and headliner exchange HISTORY OF PRESENT ILLNESS: This is a 72-year-old female who is had a previous left hip intertrochanteric hip fracture in August 2022.? Dr. Jorge Frances performed a left hip cephalo-medullary nail on September 14, 2022.? Following that surgery she underwent an irrigation debridement of the left hip with removal of the nail and placement of temporary antibiotic spacer by Dr. Martin at an outside facility on October 11, 2022.? At that time this CT scan showed fluid collection and possible abscess.? Previous documentation did not reveal any bacteria grown out on cultures.? She finished her antibiotics on November 23, 2022.? She was placed on vancomycin which did cause acute kidney infarct versus interstitial nephritis.? She had to undergo dialysis.? She has also had a previous DVT in the right upper extremity.? Patient then underwent recent conversion from previous hip surgery to a left hip hemiarthroplasty posterior approach on April 12, 2023.? Patient at that time was discharged home postoperatively with home health.? While at home patient was having issues with her left hip and was taken to the emergency room at [facility] on April 29, 2023.? She was admitted and discharged to the transitional care unit at [facility].? There was concern for left hip joint infection as she has had erythema and some wound dehiscence over the apex proximally.? She is here today for incision check.? While at the transitional care unit and MRI of the left hip was performed at [facility].? This did reveal a large collection of fluid with possible seroma versus inflammatory pseudotumor.? There is large collection of periprosthetic fluid.? Patient also had recent lab work in which her hemoglobin is currently at 8.5.? ESR 18 and CRP 51.? Patient does present in a wheelchair and has been working with physical therapy.? She does not appear to be in distress.? She is now currently taking Tylenol for pain control and she has been on aspirin 81 mg twice daily for DVT prophylaxis.? She has finished her Eliquis postoperatively.? She denies any recent chest pain, shortness of breath, or recent infections.? Patient is currently on doxycycline and Zosyn.? Patient is currently in care from Dr. Herrmann at the transitional care unit.? Recommend optimization from medicine standpoint.? Dr. Jorge Frances did discuss case with Dr. Herrmann with regards to current treatment plan. REVIEW OF SYSTEMS: Review Of Systems: Constitutional: Denies anorexia, change in appetite, fever, difficulty sleeping, weight change. Cardiovasular: Denies chest pain, heart murmur, irregular heartbeat and peripheral vascular disease. Respiratory: Reports cough, but denies asthma, pneumonia, sleep apnea, shortness of breath, tuberculosis and wheezing. Gastrointestinal: Reports diarrhea, but denies constipation, heartburn, nausea, rectal itching, bloody stools and vomiting. Genitourinary: Genital: reports menstruation problems more than 3 months without a period. Denies incontinence. Musculoskeletal: Reports gait disturbance, leg swelling, pain, trouble walking and weakness. Skin: Denies Raynaud's, history of shingles and tattoo. Neurological: Reports numbness/tingling but denies ambulatory dysfunction, dizziness and tremor. Psychiatric: Reports depression, but denies anxiety, insomnia, mental illness and stress. Hematologic/Lymphatic: Reports bleeding/bruising tendency and past transfusion, but denies anemia. Reviewed, no changes. PAST MEDICAL HISTORY: Advance Care Plan: Other Directive, LIVING WILL Effective Date: 03/09/2022 Comments: AND DAUGHTER?? Other Directive, POA Effective Date: 03/09/2022 Past Medical History: Medical Problems: Arthritis, High Blood Pressure, CTS, Thyroid Disease, Depression, Hypercholesterolemia, Parkinson's Disease, Acid Reflux, vitamin D deficency, hypothyroidism, neuropathy, hypokalemia, barretts esophogitus, history of postop anemia, Ruiz's Esophagus, History of acute DVT of Rue Accidents: Fracture - RT ANKLE 09-06-10 RT Hand - (05/18/2020) CAT BITE Surgical Hx: Tonsillectomy - A CHILD IN [place] Tubal Ligation - [facility] RT Heel Spur Surgery, [facility], DR Zambrano, RT Middle, Ring Finger Trigger Release Knee Replacement LT - (10/2017) [email or web address] Caudal Epidural Steroid Injection - (09/13/2022) Dr Juliana Levy @ [facility] Left Hip Cephalomedullary Nail - (09/14/2022) DR. FRANCES @ [facility]? Hip Replacement LT - (10/11/2022) [facility] ? Conversion Prev Hip Surgery To Left Hemiarthroplasty - (04/12/2023) DR. FRANCES AT [facility]?? Anesthesia Complications: Anesthesia Complications - TROUBLE WAKING UP WITH DENTAL ONLY? Assistive Devices: Glasses, Dentures, Wheel Chair, Walker - FOR SUPPORT? Reviewed, no changes. SOCIAL HISTORY: Social History: Marital: .Occupation: Retired.Work Status: Retired.Hand Dominance: Right-handed. Personal Habits:? Cigarette Use: Never Smoked Cigarettes.Smokeless Tobacco: Never Used Smokeless Tobacco.E-Cigarette Use: Never used.Alcohol: Denies use.Drug Use: Denies Use.Enjoy Exercising: Exercises 1-3 x/month. Reviewed, no changes. VITALS: Ht: 63 T: 96.6 T: 35.9C ALLERGIES: Histamine Phosphate Vancomycin - acute cardiac infarction? MEDICATIONS: Acetaminophen 500 mg every 6 hours as needed, Olanzapine 7.5 mg daily, Potassium Chloride Latrice ER 20 Meq twice a day, Levothyroxine Sodium 75 mcg daily, Citalopram Hydrobromide 40 mg 1po qday, Carbidopa-Levodopa 25-100 mg 1po tid, Amlodipine Besylate 5 mg 1 by mouth every day, [facility] Adult 50+ Probiotic Adlt 50+ one cap po once daily, Ferrous Sulfate 325 (65 Fe) MG one tab po once daily, Loperamide HCL 2 mg two caps po prn, Ondansetron HCL 4 mg one tab q6hrs prn, Pantoprazole Sodium 40 mg 1 by mouth every day, Pravastatin Sodium 40 mg daily, Neomycin/Polymyxin/Dexamethasone 3.5-21519-7.1, Terbinafine HCL 250 mg daily, Albuterol Sulfate HFA 108 (90 Base) mcg/Act, Prednisone 10 mg daily PRE-OP EXAM:? General appearance:NORMAL? ? ? Other: Eyes: Conjunctivae and lids: NORMAL? Pupils: ERR Ears, Nose, Mouth, and Throat: NORMAL? Other: Inspection of lips, teeth and gums: NORMAL? ?Other: Neck: Examination of neck: no masses noted. Respiratory: Assessment of respiratory effort: NORMAL? ?Other: ?Auscultation of lungs: clear to auscultation no wheezes, rhonchi or rales. Cardiovascular:? Auscultation of heart: regular rate and rhythm, no murmurs, gallops or rubs. PHYSICAL EXAMINATION: Patient presents today in a wheelchair.? She does not appear to be in any distress.? Incision overall is healing well however over the proximal one third of the incision there is a quarter size area of concern with fluctuation.? There is some surrounding reactive erythema.? No active drainage.? Small scab over the apex of the proximal incision without erythema.? Her left thigh was soft and supple.? Sensation was intact to light touch.? Patient was able to actively plantarflex and dorsiflex. IMAGING STUDIES: ?Recent MRI from [facility] on May 08, 2023 revealed large periprosthetic collection of fluid which does which appears to communicate to the surgical incision area.? Could be consistent with possible seroma versus inflammatory pseudotumor versus infection.? There is absent abductor tendon attachments to the left greater trochanteric region.? Soft tissue edema in the left buttock and lateral aspect of the hip.? For complete details see MRI report.? MRI was discussed reviewed with Dr. Jorge Frances. Recent lab work and [facility] on May 05, 2023 revealed ESR 18 and CRP 51.? Patient has hemoglobin of 8.5 IMPRESSION: 1.? Status post conversion previous left hip surgery to a left hip hemiarthroplasty posterior approach with current large seroma versus pseudotumor versus infection 2.? Hypertension 3.? Hypothyroidism 4.? Depression 5.? Hypercholesterolemia 6.? Parkinson's disease 7.? Gastroesophageal reflux disease 8.? Neuropathy 9.? Ruiz's esophagitis 10.? Vitamin D deficiency 11.? History of hypokalemia 12.? History of postop anemia currently on ferrous sulfate 13.? Recent history October 2022 DVT right upper extremity PLAN: Case was discussed in detail with Dr. Jorge Frances.? I did discuss and review with the patient all treatment options including surgical versus nonsurgical options.? Patient does wish to proceed with the above-stated procedure.? Potential risks, benefits, and complications of the procedure were discussed in detail including but not limited to , infection, nerve and blood vessel damage, persistent pain, numbness, tingling, paresthesias, blood clot, pulmonary embolism, and requirement for possible further surgery.? The patient expressed full understanding and has no further questions for the doctor.? Patient does agree to proceed with the above-stated procedure and has signed the surgery consent form. POST-OP MEDICATION PLAN: Pain Medications:? Pain regimen will be initiated at the hospital postoperatively by Dr. Jorge Frances.? We will avoid nonsteroidal anti-inflammatories.? Patient will also be evaluated by Dr. Herrmann at the transitional care unit for preoperative transfusion of packed red blood cells.? Her current hemoglobin is 8.5.?? DVT Prophylaxis: Due to past history of DVT we will use Eliquis 2.5 mg twice daily for 2 weeks for DVT prophylaxis.? This will be followed by aspirin 81 mg twice daily for an additional 2 weeks. This dictation was created using voice recognition software. Phonetic and/or grammatical errors may exist. ___? I have re-examined the patient.? There are no clinical changes since date of exam. ___? See progress notes for changes. ___? Dictated on admission Date: ? ? ?Time: Signature:
[2023-05-09] MEDS: Levothyroxine 75 MCG Tablet PO (05:56)
[2023-05-09] MEDS: Piperacil/Tazobactam 3.375 GM in 0.9% Normal Saline (50mL MB+) 50 ML IV ×2 (05:57→21:55)
[2023-05-09] MEDS: Acetaminophen 500 MG Tablet 1000 MG PO ×3 (05:57→22:02)
[2023-05-09] MEDS: Carbidopa/Levodopa 25/100 Tablet PO ×3 (06:02→16:06)
[2023-05-09] MEDS: 0.9% Saline Lock 10 ML Syringe IV ×2 (08:07→21:49)
[2023-05-09] MEDS: Ferrous Sulfate 325 MG Tablet PO (08:08)
[2023-05-09] MEDS: Aspirin E.C. 81 MG Tablet PO ×2 (08:08→17:08)
[2023-05-09] MEDS: Potassium Chloride Oral Tablet 20 MEQ PO ×2 (08:08→17:08)
[2023-05-09] MEDS: Citalopram 20 MG Tablet PO (08:09)
[2023-05-09] MEDS: Pantoprazole Sodium 40 MG Tablet PO (08:09)
[2023-05-09] MEDS: Doxycycline 100 MG CAPSULE PO ×2 (08:09→22:01)
[2023-05-09] MEDS: Ursodiol 250 MG Tablet PO ×2 (08:09→22:01)
[2023-05-09] MEDS: Cholecalciferol (VIT D3) 25 MCG TABLET (1,000 UNITS) PO (08:09)
[2023-05-09] MEDS: Ensure Plus High Protein 120 ML LIQUID PO (08:12)
[2023-05-09] MEDS: Nystatin Powder 15gm Bottle 1 APPLIC TOPICAL ×2 (08:16→22:04)
--- NOTE | 2023-05-09 09:40 | NURSING ---
Addendum entered by France English 05/09/23 11:10: Infusion center needing patient down as soon as blood ready, unable to get PICC placed at this time. Will update Amberly when patient back to unit. Patient to infusion center at 11:00. Original Note: Order for PICC. Called and spoke with Amberly, she plans to come to unit around noon to place line.
--- NOTE | 2023-05-09 10:12 | NURSING ---
Addendum entered by Tera Novak 05/09/23 15:23: SURGERY CALLED AND STATED THAT THERE ARE PLANNING FOR SURGERY AT 0845 AM ON 05/10/23. RN AWARE,FAMILY UPDATED. Original Note: Per surgery she is the last case of the day, planning on 2:30pm tomorrow 05/10/22. Per anesthesia nurse ok to give tylenol, sinemet, levothyroxine, omeprazole, and please send inhaler with patient. Any other med clarification needs to go through Dr. Herrmann or Juan Daniel.
[2023-05-09 10:17] VITALS: BMI 28.3
--- NOTE | 2023-05-09 13:40 | NURSING ---
pt left by wheelchair to infusion clinic at 1030 for 2U of blood. jen GARCIA to place PICC line 05/10 in pt room between 0700 and 0800.
[2023-05-09 16:00] VITALS: BP 123/80; PULSE 105; RESP 18; TEMP 36.3; O2SAT 98
--- NOTE | 2023-05-09 16:03 | NURSING ---
PT RETURNED FROM INFUSION CENTER AT 1600 BY DORY CHRIS, WITH PT.
--- NOTE | 2023-05-09 16:56 | NURSING ---
BALANCE BRIDGE ASSEMBLER CALL PLACED. RN WILL BE IN [facility] BETWEEN 1930 AND [address] PICC.
[2023-05-09] MEDS: 0.9% Normal Saline 250 ML IV.SOLN. IV (21:49)
[2023-05-09] MEDS: OLANZapine 2.5 MG Tablet 7.5 MG PO (22:01)
[2023-05-09] MEDS: Pravastatin 40 MG Tablet PO (22:01)
[2023-05-10] MEDS: Levothyroxine 75 MCG Tablet PO (06:00)
[2023-05-10] MEDS: Carbidopa/Levodopa 25/100 Tablet PO (06:00)
[2023-05-10] MEDS: Acetaminophen 500 MG Tablet 1000 MG PO (06:00)
[2023-05-10] MEDS: Piperacil/Tazobactam 3.375 GM in 0.9% Normal Saline (50mL MB+) 50 ML IV (06:01)
--- NOTE | 2023-05-10 08:41 | NURSING ---
Phlebotomist Medical Lab Assistant Note; MDS for 05/10/2023 complete
[2023-05-10 09:03] VITALS: BP 127/68; PULSE 79; RESP 18; TEMP 35.9; O2SAT 96
--- NOTE | 2023-05-12 08:57 | MDS.RN ---
Information for the mds was obtained from review of the clinical record, interview of resident, staff, and direct observation of resident's care.
[2023-05-13 08:12] LABS: Basophil# 0.03 X10^3/uL; Basophil% 0.2 % (0-1); Eosinophil# 0.55 X10^3/uL; Eosinophils% 3.8 % (0-5); Hematocrit 29.1 % (37-47); Lymphocyte % 20.8 % (19-41); Mean Corp Hgb Conc 30.9 g/dL (32-36); Mean Corpuscular Hgb 29.1 pg (27.0-32.0); Mean Corpuscular Volume 94.2 fL (81-99); Mean Platelet Vol. 10.8 fl (6.2-12.0); Monocyte# 2.64 X10^3/uL; Monocyte% 18.3 % (0-10); NRBC Flagged by Analyzer 0.1 % (0-5); Neutrophil # 7.97 X10^3/uL (2.7-7.7); Neutrophil % 55.2 % (47-70); POSITIVE DIFFERENTIAL YES; POSITIVE MORPHOLOGY YES; Platelet Count 252 K/mm3 (150-450); RBC Distribution Width CV 19.5 % (11.6-14.6); RBC Distribution Width SD 66.8 fl (35.1-43.9); Red Blood Count 3.09 M/mm3 (4.2-5.4); White Blood Count 14.4 K/mm3 (4.4-11.0)
[2023-05-13 08:28] LABS: Anion Gap 1 (5-15); BUN 7 mg/dL (7-18); BUN/Creat Ratio 11.3 RATIO (10-20); Calcium,Total 8.7 mg/dL (8.5-10.1); Chloride 109 mmol/L (98-107); Creatinine, Serum 0.62 mg/dL (0.55-1.02); EST Glomerular Filtration Rate 100 mL/min (>60); Est Glom Filt Rate - Afr Amer 121 mL/min (>60); Estimated Creatinine Clearance 44.41 ml/min; Glucose 89 mg/dL (74-106); Sodium Level 140 mmol/L (136-145)
[2023-05-13 08:37] LABS: Differential Indicated SCAN CRITERIA MET
[2023-05-13 10:18] LABS: Anisocytosis 2+; Differential Comment SCANNED; Macrocytosis 1+; Microcytosis 1+
[2023-05-16 13:37] LABS: Pathologist Review Reviewed
[2023-05-20 08:54] LABS: Absolute Lymphocyte Count 1.96 X10^3/uL (0.83-4.51); Absolute Neutrophil Count 7.3 X10^3/uL (2.0-7.7); Basophil# 0.03 X10^3/uL; Basophil% 0.3 % (0-1); Eosinophils% 3.4 % (0-5); Hematocrit 35.7 % (37-47); Hemoglobin 10.5 g/dL (12.0-15.0); Lymphocyte # 1.96 X10^3/ul (0.83-4.51); Lymphocyte % 16.9 % (19-41); Mean Corp Hgb Conc 29.4 g/dL (32-36); Mean Corpuscular Hgb 28.8 pg (27.0-32.0); Mean Corpuscular Volume 97.8 fL (81-99); Mean Platelet Vol. 10.4 fl (6.2-12.0); Monocyte# 1.76 X10^3/uL; Monocyte% 15.1 % (0-10); NRBC Flagged by Analyzer 0 % (0-5); Neutrophil # 7.34 X10^3/uL (2.7-7.7); Neutrophil % 63.1 % (47-70); POSITIVE DIFFERENTIAL YES; Platelet Count 356 K/mm3 (150-450); RBC Distribution Width CV 17.6 % (11.6-14.6); RBC Distribution Width SD 63.3 fl (35.1-43.9); Red Blood Count 3.65 M/mm3 (4.2-5.4); White Blood Count 11.6 K/mm3 (4.4-11.0)
[2023-05-20 08:55] LABS: Differential Indicated SCAN CRITERIA MET
[2023-05-20 09:10] LABS: Anion Gap 8 (5-15); BUN 7 mg/dL (7-18); BUN/Creat Ratio 8.7 RATIO (10-20); Chloride 108 mmol/L (98-107); EST Glomerular Filtration Rate 74 mL/min (>60); Est Glom Filt Rate - Afr Amer 90 mL/min (>60); Estimated Creatinine Clearance 55.52 ml/min; Glucose 126 mg/dL (74-106); Sodium Level 138 mmol/L (136-145)
[2023-05-20 09:34] LABS: Differential Comment SCANNED
[2023-05-23 13:54] LABS: Pathologist Review Reviewed
[2023-05-27 07:25] LABS: Absolute Lymphocyte Count 2.17 X10^3/uL (0.83-4.51); Absolute Neutrophil Count 4.7 X10^3/uL (2.0-7.7); Basophil# 0.03 X10^3/uL; Basophil% 0.3 % (0-1); Eosinophil# 0.51 X10^3/uL; Eosinophils% 5.5 % (0-5); Hematocrit 31.7 % (37-47); Hemoglobin 9.6 g/dL (12.0-15.0); Lymphocyte # 2.17 X10^3/ul (0.83-4.51); Lymphocyte % 23.4 % (19-41); Mean Corp Hgb Conc 30.3 g/dL (32-36); Mean Corpuscular Hgb 29.4 pg (27.0-32.0); Mean Corpuscular Volume 97.2 fL (81-99); Mean Platelet Vol. 10.7 fl (6.2-12.0); Monocyte# 1.79 X10^3/uL; Monocyte% 19.3 % (0-10); NRBC Flagged by Analyzer 0 % (0-5); Neutrophil # 4.65 X10^3/uL (2.7-7.7); Neutrophil % 50.3 % (47-70); POSITIVE DIFFERENTIAL YES; Platelet Count 260 K/mm3 (150-450); RBC Distribution Width CV 16.3 % (11.6-14.6); RBC Distribution Width SD 58.9 fl (35.1-43.9); Red Blood Count 3.26 M/mm3 (4.2-5.4); White Blood Count 9.3 K/mm3 (4.4-11.0)
[2023-05-27 07:49] LABS: Differential Indicated SCAN CRITERIA MET
[2023-05-27 07:55] LABS: Anion Gap 4 (5-15); BUN 9 mg/dL (7-18); BUN/Creat Ratio 14.1 RATIO (10-20); Calcium,Total 8.9 mg/dL (8.5-10.1); Chloride 109 mmol/L (98-107); Creatinine, Serum 0.64 mg/dL (0.55-1.02); EST Glomerular Filtration Rate 97 mL/min (>60); Est Glom Filt Rate - Afr Amer 117 mL/min (>60); Estimated Creatinine Clearance 44.41 ml/min; Glucose 91 mg/dL (74-106); Potassium 4.4 mmol/L (3.5-5.1); Sodium Level 140 mmol/L (136-145)
[2023-05-27 08:17] LABS: Platelet Estimate ADEQUATE (ADEQ); Red Cell Morphology NORM C+C NORMAL (NORM C&C)
[2023-06-03 07:42] LABS: Absolute Lymphocyte Count 2.59 X10^3/uL (0.83-4.51); Absolute Neutrophil Count 5.8 X10^3/uL (2.0-7.7); Basophil# 0.04 X10^3/uL; Basophil% 0.4 % (0-1); Differential Indicated SCAN CRITERIA MET; Eosinophils% 5.5 % (0-5); Hematocrit 35.7 % (37-47); Hemoglobin 10.9 g/dL (12.0-15.0); Lymphocyte # 2.59 X10^3/ul (0.83-4.51); Lymphocyte % 23.6 % (19-41); Mean Corp Hgb Conc 30.5 g/dL (32-36); Mean Corpuscular Hgb 29.1 pg (27.0-32.0); Mean Corpuscular Volume 95.5 fL (81-99); Mean Platelet Vol. 10.9 fl (6.2-12.0); Monocyte# 1.73 X10^3/uL; Monocyte% 15.8 % (0-10); NRBC Flagged by Analyzer 0 % (0-5); Neutrophil # 5.83 X10^3/uL (2.7-7.7); Neutrophil % 53.1 % (47-70); POSITIVE DIFFERENTIAL YES; Platelet Count 373 K/mm3 (150-450); RBC Distribution Width CV 16.1 % (11.6-14.6); RBC Distribution Width SD 56.1 fl (35.1-43.9); Red Blood Count 3.74 M/mm3 (4.2-5.4)
[2023-06-03 08:19] LABS: Hypochromasia 1+
[2023-06-03 09:05] LABS: Anion Gap 10 (5-15); BUN 11 mg/dL (7-18); BUN/Creat Ratio 16.2 RATIO (10-20); Calcium,Total 9.4 mg/dL (8.5-10.1); Chloride 107 mmol/L (98-107); Creatinine, Serum 0.68 mg/dL (0.55-1.02); EST Glomerular Filtration Rate 90 mL/min (>60); Est Glom Filt Rate - Afr Amer 108 mL/min (>60); Estimated Creatinine Clearance 63.46 ml/min; Glucose 90 mg/dL (74-106); Potassium 4.1 mmol/L (3.5-5.1); Sodium Level 139 mmol/L (136-145)
[2023-06-10 07:49] LABS: Absolute Lymphocyte Count 1.73 X10^3/uL (0.83-4.51); Absolute Neutrophil Count 3.9 X10^3/uL (2.0-7.7); Basophil# 0.04 X10^3/uL; Basophil% 0.5 % (0-1); Eosinophil# 0.38 X10^3/uL; Eosinophils% 4.8 % (0-5); Hematocrit 33.7 % (37-47); Hemoglobin 10.3 g/dL (12.0-15.0); Lymphocyte # 1.73 X10^3/ul (0.83-4.51); Lymphocyte % 21.7 % (19-41); Mean Corp Hgb Conc 30.6 g/dL (32-36); Mean Corpuscular Hgb 28.9 pg (27.0-32.0); Mean Corpuscular Volume 94.7 fL (81-99); Monocyte# 1.77 X10^3/uL; Monocyte% 22.2 % (0-10); NRBC Flagged by Analyzer 0 % (0-5); Neutrophil # 3.94 X10^3/uL (2.7-7.7); Neutrophil % 49.3 % (47-70); POSITIVE DIFFERENTIAL YES; Platelet Count 271 K/mm3 (150-450); RBC Distribution Width CV 15.5 % (11.6-14.6); Red Blood Count 3.56 M/mm3 (4.2-5.4)
[2023-06-10 07:55] LABS: Anion Gap 4 (5-15); BUN 11 mg/dL (7-18); Calcium,Total 9.4 mg/dL (8.5-10.1); Chloride 108 mmol/L (98-107); Creatinine, Serum 0.69 mg/dL (0.55-1.02); EST Glomerular Filtration Rate 89 mL/min (>60); Est Glom Filt Rate - Afr Amer 107 mL/min (>60); Estimated Creatinine Clearance 63.46 ml/min; Glucose 94 mg/dL (74-106); Potassium 4.3 mmol/L (3.5-5.1); Sodium Level 138 mmol/L (136-145)
[2023-06-10 08:11] LABS: Differential Indicated SCAN CRITERIA MET
[2023-06-10 10:40] LABS: Differential Comment SCANNED
[2023-06-17 08:22] LABS: Absolute Lymphocyte Count 1.95 X10^3/uL (0.83-4.51); Basophil# 0.05 X10^3/uL; Basophil% 0.5 % (0-1); Eosinophil# 0.44 X10^3/uL; Eosinophils% 4.8 % (0-5); Hematocrit 35.7 % (37-47); Hemoglobin 10.9 g/dL (12.0-15.0); Lymphocyte # 1.95 X10^3/ul (0.83-4.51); Lymphocyte % 21.2 % (19-41); Mean Corp Hgb Conc 30.5 g/dL (32-36); Mean Corpuscular Hgb 28.8 pg (27.0-32.0); Mean Corpuscular Volume 94.4 fL (81-99); Mean Platelet Vol. 11.2 fl (6.2-12.0); Monocyte# 1.68 X10^3/uL; Monocyte% 18.2 % (0-10); NRBC Flagged by Analyzer 0 % (0-5); Neutrophil # 5.01 X10^3/uL (2.7-7.7); Neutrophil % 54.4 % (47-70); POSITIVE DIFFERENTIAL YES; Platelet Count 235 K/mm3 (150-450); RBC Distribution Width SD 52.6 fl (35.1-43.9); Red Blood Count 3.78 M/mm3 (4.2-5.4); White Blood Count 9.2 K/mm3 (4.4-11.0)
[2023-06-17 08:31] LABS: Differential Indicated SCAN CRITERIA MET
[2023-06-17 08:41] LABS: Anion Gap 4 (5-15); BUN 12 mg/dL (7-18); BUN/Creat Ratio 18.3 RATIO (10-20); Calcium,Total 9.5 mg/dL (8.5-10.1); Chloride 106 mmol/L (98-107); Creatinine, Serum 0.65 mg/dL (0.55-1.02); EST Glomerular Filtration Rate 94 mL/min (>60); Est Glom Filt Rate - Afr Amer 114 mL/min (>60); Estimated Creatinine Clearance 63.46 ml/min; Glucose 104 mg/dL (74-106); Potassium 3.9 mmol/L (3.5-5.1); Sodium Level 135 mmol/L (136-145)
[2023-06-17 09:25] LABS: Differential Comment SCANNED
== END 2023-05-10 15:00 | disposition short-term general hospital (02) | DRG 950 ==
PROVIDERS: Admitting Provider Family Medicine Geriatric Medicine; PCP Family Medicine Geriatric Medicine; Visit Provider Family Medicine Geriatric Medicine
DX: T84.52XD Infection and inflammatory reaction due to internal left hip prosthesis, subsequent encounter (principal); D50.9 Iron deficiency anemia, unspecified; G20.A1 Parkinson's disease without dyskinesia, without mention of fluctuations; F20.9 Schizophrenia, unspecified; M06.9 Rheumatoid arthritis, unspecified; E03.9 Hypothyroidism, unspecified; F32.A Depression, unspecified; I10 Essential (primary) hypertension; E78.00 Pure hypercholesterolemia, unspecified; E87.6 Hypokalemia; E55.9 Vitamin D deficiency, unspecified; K21.9 Gastro-esophageal reflux disease without esophagitis; Z79.82 Long term (current) use of aspirin; Y79.2 Prosthetic and other implants, materials and accessory orthopedic devices associated with adverse incidents; Z79.899 Other long term (current) drug therapy; Z79.890 Hormone replacement therapy
CPT/HCPCS: 36415; 36569; 80048; 80053; 81001; 82274; 82607; 82746; 83540; 83550; 85014; 85018; 85025; 85027; 85045; 85652; 86140; 86920; 87086; 87506; 87811; 94762; 97110; 97112; 97116; 97162; 97166; 97530; 97535; 97802; J7050; A4216; J2916

== ENCOUNTER → 2023-05-08 | Outpatient (CLI) | payer MEDICARE, SELFPAY ==
--- NOTE | 2023-05-08 10:15 | MRI_ITS ---
STUDY: MRI LEFT HIP REASON FOR EXAM: Female, 72 years old. Infection, status post left hip surgery. TECHNIQUE: Standardized fat and water weighted pulse sequences were obtained in all 3 orthogonal planes. COMPARISON: Pelvis and left femur radiographs dated 04/29/2023. FINDINGS: There is a left hip arthroplasty in place. There is no periprosthetic fracture. However, there is a large joint effusion with periprosthetic fluid collection dissecting into the original surgical incision of the subcutaneous fat, overall measuring 7.3 cm AP, 11.3 cm transverse, and 22.0 cm craniocaudad. The overall imaging findings could be related to infection versus inflammatory pseudotumor. Normal hip joint without articular joint space narrowing. Normal acetabulum. Normal labrum. Normal femoral head. Normal femoral neck and intratrochanteric region. The left abductor tendons attachments to the left greater trochanter are absent, probably torn. Normal left iliopsoas tendon and distal insertion. Normal superior and inferior pubic rami. Normal pubic symphysis. Normal ischial tuberosity. Normal origin of the hamstring tendons. Normal visualized iliac wing, sacroiliac joint, and sacral ala. Normal visualized soft tissue structures of the pelvis. There is subcutaneous soft tissue edema along the left buttock and lateral aspect of the left hip. MRI/Lower Ext Joint Only (Routine) IMPRESSION: Left hip arthroplasty, with large 7.3 x 11.3 x 22.0 cm periprosthetic fluid collection. Overall imaging findings could be related to infection versus inflammatory pseudotumor. Absent abductor tendon attachments to the left greater trochanter, probably torn. Subcutaneous soft tissue edema along the left buttock and lateral aspect of the left hip. Electronically Signed: Ramon Denson MD at 11:38 EST ,
== END | disposition home or self-care (01) ==
LOC: MRI 10:15
PROVIDERS: PCP Family Medicine Geriatric Medicine; Visit Provider Family Medicine Geriatric Medicine
DX: T81.42XD Infection following a procedure, deep incisional surgical site, subsequent encounter (principal)
CPT/HCPCS: 73721

== ENCOUNTER 2023-05-09 10:53 | Outpatient (CLI) | payer MEDICARE, SELFPAY ==
[2023-05-09] VITALS (8 sets, daily range): BP systolic 104–155; BP diastolic 59–82; PULSE 87–116; RESP 16–18; TEMP 35.9–36.2; O2SAT 95–99; BMI 29.7
[2023-05-09] MEDS: Furosemide 20 MG/2 ML VIAL IV (13:22)
== END 2023-05-09 10:54 | disposition home or self-care (01) ==
LOC: MEDOUTP 10:53
PROVIDERS: PCP Family Medicine Geriatric Medicine; Referring Provider Family Medicine Geriatric Medicine; Visit Provider Family Medicine Geriatric Medicine
DX: D64.9 Anemia, unspecified (principal)
CPT/HCPCS: 96374; 36415; 36430; 86850; 86900; 86901; 86920; J7040; P9016; A4216; J1940

== ENCOUNTER 2023-05-10 09:09 | Inpatient (IN) | payer MEDICARE, SELFPAY ==
[2023-05-10] VITALS (14 sets, daily range): BP systolic 86–114; BP diastolic 44–63; PULSE 75–106; RESP 16–18; TEMP 36.4–36.9; O2SAT 93–99; BMI 31.7
[2023-05-10] MEDS: Magnesium 1 GM over 15 mins IV (09:24)
[2023-05-10] MEDS: Gabapentin 600 MG Tablet PO (09:24)
[2023-05-10] MEDS: Lactated Ringers 1,000 ML 999 ML IV ×2 (09:25→14:45)
[2023-05-10 10:02] LABS: Bedside Glucose 94 mg/dL (74-106)
--- NOTE | 2023-05-10 10:15 | PCM.HP.BLA ---
History and Physical History and Physical? Patient Name: Kaia Hale : 1950 From:? RAMESH AMADO PA-C? DATE OF PRE-OPERATIVE EXAM: 05/08/2023 DATE OF SURGERY:? 05/10/2023 SCHEDULED PROCEDURE:? Revision left hip with irrigation debridement and headliner exchange HISTORY OF PRESENT ILLNESS: This is a 72-year-old female who is had a previous left hip intertrochanteric hip fracture in August 2022.? Dr. Jorge Frances performed a left hip cephalo-medullary nail on September 14, 2022.? Following that surgery she underwent an irrigation debridement of the left hip with removal of the nail and placement of temporary antibiotic spacer by Dr. Martin at an outside facility on October 11, 2022.? At that time this CT scan showed fluid collection and possible abscess.? Previous documentation did not reveal any bacteria grown out on cultures.? She finished her antibiotics on November 23, 2022.? She was placed on vancomycin which did cause acute kidney infarct versus interstitial nephritis.? She had to undergo dialysis.? She has also had a previous DVT in the right upper extremity.? Patient then underwent recent conversion from previous hip surgery to a left hip hemiarthroplasty posterior approach on April 12, 2023.? Patient at that time was discharged home postoperatively with home health.? While at home patient was having issues with her left hip and was taken to the emergency room at [facility] on April 29, 2023.? She was admitted and discharged to the transitional care unit at [facility].? There was concern for left hip joint infection as she has had erythema and some wound dehiscence over the apex proximally.? She is here today for incision check.? While at the transitional care unit and MRI of the left hip was performed at [facility].? This did reveal a large collection of fluid with possible seroma versus inflammatory pseudotumor.? There is large collection of periprosthetic fluid.? Patient also had recent lab work in which her hemoglobin is currently at 8.5.? ESR 18 and CRP 51.? Patient does present in a wheelchair and has been working with physical therapy.? She does not appear to be in distress.? She is now currently taking Tylenol for pain control and she has been on aspirin 81 mg twice daily for DVT prophylaxis.? She has finished her Eliquis postoperatively.? She denies any recent chest pain, shortness of breath, or recent infections.? Patient is currently on doxycycline and Zosyn.? Patient is currently in care from Dr. Herrmann at the transitional care unit.? Recommend optimization from medicine standpoint.? Dr. Jorge Frances did discuss case with Dr. Herrmann with regards to current treatment plan. REVIEW OF SYSTEMS: Review Of Systems: Constitutional: Denies anorexia, change in appetite, fever, difficulty sleeping, weight change. Cardiovasular: Denies chest pain, heart murmur, irregular heartbeat and peripheral vascular disease. Respiratory: Reports cough, but denies asthma, pneumonia, sleep apnea, shortness of breath, tuberculosis and wheezing. Gastrointestinal: Reports diarrhea, but denies constipation, heartburn, nausea, rectal itching, bloody stools and vomiting. Genitourinary: Genital: reports menstruation problems more than 3 months without a period. Denies incontinence. Musculoskeletal: Reports gait disturbance, leg swelling, pain, trouble walking and weakness. Skin: Denies Raynaud's, history of shingles and tattoo. Neurological: Reports numbness/tingling but denies ambulatory dysfunction, dizziness and tremor. Psychiatric: Reports depression, but denies anxiety, insomnia, mental illness and stress. Hematologic/Lymphatic: Reports bleeding/bruising tendency and past transfusion, but denies anemia. Reviewed, no changes. PAST MEDICAL HISTORY: Advance Care Plan: Other Directive, LIVING WILL Effective Date: 03/09/2022 Comments: AND DAUGHTER?? Other Directive, POA Effective Date: 03/09/2022 Past Medical History: Medical Problems: Arthritis, High Blood Pressure, CTS, Thyroid Disease, Depression, Hypercholesterolemia, Parkinson's Disease, Acid Reflux, vitamin D deficency, hypothyroidism, neuropathy, hypokalemia, barretts esophogitus, history of postop anemia, Ruiz's Esophagus, History of acute DVT of Rue Accidents: Fracture - RT ANKLE 09-06-10 RT Hand - (05/18/2020) CAT BITE Surgical Hx: Tonsillectomy - A CHILD IN [place] Tubal Ligation - [facility] RT Heel Spur Surgery, [facility], DR Zambrano, RT Middle, Ring Finger Trigger Release Knee Replacement LT - (10/2017) SAW@[facility] Caudal Epidural Steroid Injection - (09/13/2022) Dr Juliana Levy @ [facility] Left Hip Cephalomedullary Nail - (09/14/2022) DR. FRANCES @ [facility]? Hip Replacement LT - (10/11/2022) [facility] ? Conversion Prev Hip Surgery To Left Hemiarthroplasty - (04/12/2023) DR. FRANCES AT [facility]?? Anesthesia Complications: Anesthesia Complications - TROUBLE WAKING UP WITH DENTAL ONLY? Assistive Devices: Glasses, Dentures, Wheel Chair, Walker - FOR SUPPORT? Reviewed, no changes. SOCIAL HISTORY: Social History: Marital: .Occupation: Retired.Work Status: Retired.Hand Dominance: Right-handed. Personal Habits:? Cigarette Use: Never Smoked Cigarettes.Smokeless Tobacco: Never Used Smokeless Tobacco.E-Cigarette Use: Never used.Alcohol: Denies use.Drug Use: Denies Use.Enjoy Exercising: Exercises 1-3 x/month. Reviewed, no changes. VITALS: Ht: 63 T: 96.6 T: 35.9C ALLERGIES: Histamine Phosphate Vancomycin - acute cardiac infarction? MEDICATIONS: Acetaminophen 500 mg every 6 hours as needed, Olanzapine 7.5 mg daily, Potassium Chloride Latrice ER 20 Meq twice a day, Levothyroxine Sodium 75 mcg daily, Citalopram Hydrobromide 40 mg 1po qday, Carbidopa-Levodopa 25-100 mg 1po tid, Amlodipine Besylate 5 mg 1 by mouth every day, [facility] Adult 50+ Probiotic Adlt 50+ one cap po once daily, Ferrous Sulfate 325 (65 Fe) MG one tab po once daily, Loperamide HCL 2 mg two caps po prn, Ondansetron HCL 4 mg one tab q6hrs prn, Pantoprazole Sodium 40 mg 1 by mouth every day, Pravastatin Sodium 40 mg daily, Neomycin/Polymyxin/Dexamethasone 3.5-98818-3.1, Terbinafine HCL 250 mg daily, Albuterol Sulfate HFA 108 (90 Base) mcg/Act, Prednisone 10 mg daily PRE-OP EXAM:? General appearance:NORMAL? ? ? Other: Eyes: Conjunctivae and lids: NORMAL? Pupils: ERR Ears, Nose, Mouth, and Throat: NORMAL? Other: Inspection of lips, teeth and gums: NORMAL? ?Other: Neck: Examination of neck: no masses noted. Respiratory: Assessment of respiratory effort: NORMAL? ?Other: ?Auscultation of lungs: clear to auscultation no wheezes, rhonchi or rales. Cardiovascular:? Auscultation of heart: regular rate and rhythm, no murmurs, gallops or rubs. PHYSICAL EXAMINATION: Patient presents today in a wheelchair.? She does not appear to be in any distress.? Incision overall is healing well however over the proximal one third of the incision there is a quarter size area of concern with fluctuation.? There is some surrounding reactive erythema.? No active drainage.? Small scab over the apex of the proximal incision without erythema.? Her left thigh was soft and supple.? Sensation was intact to light touch.? Patient was able to actively plantarflex and dorsiflex. IMAGING STUDIES: ?Recent MRI from [facility] on May 08, 2023 revealed large periprosthetic collection of fluid which does which appears to communicate to the surgical incision area.? Could be consistent with possible seroma versus inflammatory pseudotumor versus infection.? There is absent abductor tendon attachments to the left greater trochanteric region.? Soft tissue edema in the left buttock and lateral aspect of the hip.? For complete details see MRI report.? MRI was discussed reviewed with Dr. Jorge Frances. Recent lab work and [facility] on May 05, 2023 revealed ESR 18 and CRP 51.? Patient has hemoglobin of 8.5 IMPRESSION: 1.? Status post conversion previous left hip surgery to a left hip hemiarthroplasty posterior approach with current large seroma versus pseudotumor versus infection 2.? Hypertension 3.? Hypothyroidism 4.? Depression 5.? Hypercholesterolemia 6.? Parkinson's disease 7.? Gastroesophageal reflux disease 8.? Neuropathy 9.? Ruiz's esophagitis 10.? Vitamin D deficiency 11.? History of hypokalemia 12.? History of postop anemia currently on ferrous sulfate 13.? Recent history October 2022 DVT right upper extremity PLAN: Case was discussed in detail with Dr. Jorge Frances.? I did discuss and review with the patient all treatment options including surgical versus nonsurgical options.? Patient does wish to proceed with the above-stated procedure.? Potential risks, benefits, and complications of the procedure were discussed in detail including but not limited to , infection, nerve and blood vessel damage, persistent pain, numbness, tingling, paresthesias, blood clot, pulmonary embolism, and requirement for possible further surgery.? The patient expressed full understanding and has no further questions for the doctor.? Patient does agree to proceed with the above-stated procedure and has signed the surgery consent form. POST-OP MEDICATION PLAN: Pain Medications:? Pain regimen will be initiated at the hospital postoperatively by Dr. Jorge Frances.? We will avoid nonsteroidal anti-inflammatories.? Patient will also be evaluated by Dr. Herrmann at the transitional care unit for preoperative transfusion of packed red blood cells.? Her current hemoglobin is 8.5.?? DVT Prophylaxis: Due to past history of DVT we will use Eliquis 2.5 mg twice daily for 2 weeks for DVT prophylaxis.? This will be followed by aspirin 81 mg twice daily for an additional 2 weeks. This dictation was created using voice recognition software. Phonetic and/or grammatical errors may exist. ___? I have re-examined the patient.? There are no clinical changes since date of exam. ___? See progress notes for changes. ___? Dictated on admission Date: ? ? ?Time: Signature: 05/08/232203 <Electronically signed by Ramesh ESCOBAR PA-C> Carl Signature (if applicable): Assessment & Plan Assessment/Plan (1) Left hip pain: PLAN: Plan I have examined the patient and the H&P has been reviewed. There are no clinical changes since date of exam.
[2023-05-10] MEDS: Lactated Ringers 1,000 ML 15 ML IV (10:30)
[2023-05-10] MEDS: Cefazolin 2 GM in 0.9% Normal Saline (100mL Bag) 100 ML IV (11:33)
[2023-05-10] MEDS: dexAMETHasone 10 MG/ML Vial IV (12:09)
--- NOTE | 2023-05-10 12:26 | FLU_PTH ---
PATHOLOGY RESULTS PATIENT: DANDRE PERAZA LOC: MS3 U#:[id number] AGE/SX: 72/F ROOM: [facility] [place] RE05/10/[address]: Dr. Jorge Frances MD : 1950 BED: 1 DIS: 05/12/2023 SPEC #: [id number] RECD: 05/11/23 08:51 STATUS: KARLY REPeace #: [id number] RULA: 05/10/23 12:[address]: Jorge Frances DEPT: CYTOLOGY RECD BY: Quynh Torres ENTERED: 05/11/23 08:52 SP TYPE: Fluid OTHR DR: DO Dr. Jabier Bennett MD Dr. Tai Chi Kwok, MD Tissues: Hip, NOS Procedures: Special Stain Group II Surgery Specimen Level IV Cytospin Fluid Comments: @ Specimen number changed from [id number] to [id number] @ on 05/11/23 at 0938 by AGNER. HEADER OPERATION: Irrigation and debridement of left hip PRE-OP DIAGNOSIS: Left hip pain TISSUE SUBMITTED: Left hip fluid for cytology DIAGNOSIS CYTOLOGY Fine needle aspiration, left hip fluid (cytospin and cell block): Acute inflammation. Negative for malignant cells. AM:jaqui 05/12/2023 CYTOLOGY STUDY Slides are reviewed. CYTOLOGY GROSS Received is 5 ml of red cloudy fluid labeled with the patient's name and and designated per the requisition as left hip. Submitted for cytology preparation including cell block. / jaqui 05/11/2023 TC:5 CPT: 89438, 88332
[2023-05-10 12:40] LABS: Cytology, Body Fluid / CSF SEE PATHOLOGY REPORT
[2023-05-10] MEDS: TRANEXAMIC ACID 2,000 MG in 0.9% Normal Saline (100mL Bag) 100 ML 660 MG IV (13:30)
--- NOTE | 2023-05-10 13:38 | PN.HOSP_ITS ---
Reason for Visit Reason for Visit: Diagnoses Pain in left hip (05/10/23) Encounter for other preprocedural examination (05/10/23) Presence of left artificial hip joint (05/10/23) Subjective Subjective Patient is a 72-year-old female who is admitted for irrigation and debridement and complete synovectomy of the left hip with deep incision of a sinus tract with hematoma/seroma evacuation with complex wound closure and placement of wound VAC. 4 weeks ago she had removal of an antibiotic spacer and revision of her hemiarthroplasty and was readmitted here about a week ago as she had a small area of eschar on the top of the wound. She was then discharged to the transitional care unit and developed an area of bulging around the midportion of the incision and was seen in Dr. Frances's office on Monday. MRI was performed and there was concerning of underlying fluid collection so she was taken back to the OR for the above. We have been consulted postoperatively for medical management. Patient was seen postoperatively up on the medical floor and seemed to be doing well. She was eating Jell-O and had no complaints. Objective Data Objective Data Vital Signs: Vital Signs Temp Pulse Resp BP Pulse Ox O2 Del Method 98.5 F 78 16 111/56 L 96 Room Air 05/10/23 09:18 05/10/23 09:18 05/10/23 09:18 05/10/23 09:18 05/10/23 09:18 05/10/23 09:18 Oxygen Delivery Method Room Air Weight: 81.3 kg Body Mass Index (BMI) 31.7 Intake & Output: Intake and Output for Last 24 Hours 05/08/23 05/09/23 05/10/23 23:59 23:59 23:59 Intake Total 332 / 332 Balance 332 / 332 Lab / Micro Data Labs: Laboratory Results - last 24 hr 05/10/23 09:17: POC Glucose 94 Physical Exam Const alert, oriented x3, no apparent distress and well nourished; Negative for average body habitus Constitutional Narrative: Obese, elderly, white female, sitting up in bed, eating Jell-O and clear liquid diet appears comfortable and nontoxic HEENT head/scalp atraumatic and moist oral mucous membranes HEENT Narrative: Tongue is red from the Jell-O, Mallampati is 3, no thrush Resp normal respiratory effort, no retractions, no use of accessory muscles and clear to auscultation bilaterally Auscultation: Negative for rales, rhonchi or wheezes Cardio regular rate, regular rhythm, S1 normal heart sound, S2 normal heart sound, no murmurs, no rub, no gallops and no clicks GI normal to inspection, nondistended, normoactive bowel sounds, soft to palpation and non-tender Extremity no clubbing, cyanosis or edema Extremity Narrative: Bilateral lower extremity BIENVENIDO hose in place, 2+ pedal pulses Neuro oriented x3 and no focal motor deficits Speech: speech normal Psych affect normal Psych Narrative: Eye contact is good, patient interacts normally Assessment & Plan Assessment/Plan (1) Seroma after procedure: PLAN: Plan History of left hip osteoarthritis status post prosthetic joint infection -Postop day 0 for I&D of postoperative left hip hematoma with synovectomy and excision of deep sinus tract within the hematoma/seroma evacuation with complex wound closure -Wound VAC -Consult wound nurse -Pain medication per primary service -Culture sent -Antibiotics per primary service -Recommend bowel regimen to avoid constipation History of DIC -Patient with history of DIC diagnosed in November 2022 -Platelet count is now normalized -Would recommend continuing to monitor this Chronic anemia -Hemoglobin was 8.5 and patient was transfused packed red blood cells -Preop hemoglobin was 12.5 -Monitor -Continue iron supplementation postoperatively Parkinson's disease -Continue home carbidopa/levodopa History of rheumatoid arthritis -Patient had previously been on methotrexate, hydroxychloroquine, and folic acid at baseline -Appears to be on no chronic medication at this time Hyperlipidemia -Continue statin History of right upper extremity DVT -October 2022 -Not on any anticoagulation preoperatively but plans for postoperatively will be forward Eliquis 2.5 mg twice daily for 2 weeks followed by aspirin 81 mg daily for an additional 2 weeks Hypothyroidism -Continue levothyroxine GERD/Ruiz's esophagitis -Continue omeprazole History of vitamin D deficiency -Continue home vitamin D supplementation Depression -Continue citalopram -Continue olanzapine DVT prophylaxis -Per primary service -Plan is for Eliquis 2.5 mg twice daily for 2 weeks followed by aspirin 81 mg p.o. daily for 2 weeks Charges/Coding Visit Charges Inpatient E&M: [address] [facility] L2
[2023-05-10 14:19] LABS: Red Cell Count/Body Fluid 0.123 10^6/ul
[2023-05-10 14:23] LABS: Auto B Fluid Analyzer BKGD Ct COUNTS W/IN LIMITS (W/IN LIMITS)
[2023-05-10 14:24] LABS: Appearance/Body Fluid TURBID; Color/Body Fluid RED; Source- Body Fluid OTHER
--- NOTE | 2023-05-10 14:30 | PCM.OPRPT ---
Report of Operation Date of Procedure: 05/10/23 Pre-Operative Diagnosis: Postoperative seroma left hip Post-Operative Diagnosis: Postoperative seroma left hip Surgery/Procedure Performed:: 1. Irrigation debridement complete synovectomy left hip with excision of deep sinus tract with hematoma/seroma evacuation 2. Complex wound closure left hip with area of skin at risk which we did not close 75 mm x 20 mm wound VAC was placed over this area 3. Placement of incisional wound VAC 4. Revision left hip replacement femoral component. 5. Aspiration left hip Description of Surgical Findings:: Large amount of serosanguineous fluid. There was a 75 mm x 20 mm area of every skin that was excised with an underlying sinus tract from just below the skin to the joint which was excised. This did leave a area of high skin tension which we elected not to directly close on wound closure after closing the fascia and subcutaneous layers. Surgeon: Jorge Frances software development test engineer: Ramesh Mack Type of Anesthesia: Spinal Anesthesiologist: Robert Childers Special Medications: Ancef, TXA lavage Specimen's removed: 3 separate specimens were sent to microbiology. We did aspirate the hip hematoma prior to making incision this was sent for culture. Estimated Blood Loss (mL): 750 mL Fluids Replaced: 2000 mL crystalloid Description of Procedure: Implants: [place] alevism modular 23 mm x 20 mm body. [place] cobalt-chromium 43 millimeters +4 mm bipolar femoral head 72-year-old female who 4 weeks ago had a removal of antibiotic spacer and revision to hemiarthroplasty hip replacement was admitted to the hospital last week where she had a small area of eschar at the top of her wound. However she was then discharged to transitional care unit and developed an area of bulging around the midportion of the incision. She was seen in the office on Monday at that time there was significant skin at risk with an MRI concerning for underlying fluid collection. Based on the at risk in the concerns for continued fluid collection and breakdown of the skin we elected to proceed with irrigation debridement and revision of the hip replacement modular components. Patient and her family both agreed on proceeding with this intervention and risks were discussed the patient. We again reaffirmed most risks today prior to surgery as the initial evaluation was done with my physician compliance assistant. Finally I explained to them that one of my biggest concerns was potential further complications with wound healing and wound. Operation: In the preoperative area patient's left hip was marked. Patient was brought back to the operating room where they transferred the table in supine position. Anesthesia assumed control the C-spine and airway. After administering spinal anesthetic the patient did receive a Daly catheter. She had also defecated she was cleaned up and then placed in the lateral decubitus position with all bony problems identified well-padded. Axillary roll was placed. Patient was secured to the bed using the pegboard. Once we are happy with the position the patient and stability. The left lower extremity was prepped in a sterile fashion while the surgeon scrubbed. Upon entering the room the left lower extremity was draped in a standard orthopedic fashion. Timeout was called and everyone agreed upon the side, the site, the procedure to be performed, patient's identity and antibiotics given. Incision was marked out using the previous incision ellipsing out the area of every skin concerning for the underlying sinus tract/seroma. We then used an 18-gauge needle to aspirate this area and serosanguineous fluid was aspirated consistent with a hematoma/seroma collection. At this time the skin was incised and the fluid was sent for culture and analysis. We ellipsed the area which was 75 mm x 20 mm in size I carefully extended the incision along the previous incision. We carefully dissected down. We could see that the fluid was not congealed blood at this time is mostly associated with the bloody seroma. The previous fascia repair had been pushed through and there was a tract all the way down to the joint. We carefully identified the remaining intact fascia remove previous sutures and dissected down to the joint. Once we are down to the joint we did a significant synovectomy. Tissue was sent for culture. Once a complete synovectomy was performed hip was dislocated. We we finished the rest the synovectomy. We did dissociate the femoral body and head and then irrigated out the wound. The wound was irrigated out with 6 L of normal saline under low-pressure lavage. Once wound was irrigated out with normal saline based on patient's previous debility with the hip we elected the replace the same body parts. The 23 mm +20 mm cone body was selected and impacted into place and the similar anteversion before and the 43 mm +4 mm femoral head was assembled and impacted into place after cleaning and drying the trunnion. Hip was then reduced. This time the wound was louise irrigated out with 3-minute Betadine lavage. While we are lavaging the wound was packed with laps and tamponade was placed on the joint. Once this was done we remove the labs and did a 1 minute irrigation of chlorhexidine. We then irrigated out the wound with copious amounts of normal saline. Once this was done we did our 1 minute TXA lavage using lap soaked in TXA and again placed to tamponade pressure on the wound for 1 minute. Once this was done the laps were removed hip was taken through range of motion remained stable. We did place some starch in the joint in order to prevent seroma and further hematoma. A drain was placed in the deep joint area and brought out proximally. We then closed the fascia using #1 Vicryl interrupted sutures passing all the sutures so we can get nice deep bites and then tying each 1 after all sutures were passed. We then used a #1 strata fix and ran for a watertight closure. We then used a #1 strata fix on the deep fatty layer. Deep to the STRATAFIX closure we did place another drain that was brought out distally superficial to the fascia. Once this deep fatty layer was closed we then closed the skin using 2-0 Vicryl. The area where the average skin was excised and ellipsed was 75 mm x 20 mm. We attempted to close the skin however it caused significant blanching of the skin with concerns for further wound breakdown we elected to proceed with a wound VAC in this area for healing with secondary intention after a multilayer closure was done. Skin closure on the well-approximated incision area was done with 2-0 nylon suture for final skin closure. A incisional wound VAC was placed over the incision. Patient was then placed back in supine position and awakened by anesthesia and transferred to PACU for recovery after being transferred to [facility]. Postoperative plan: DVT prophylaxis Eliquis 2.5 mg p.o. twice daily for 2 weeks followed by aspirin 81 mg p.o. twice daily for 2 weeks. Wound: Incisional wound VAC on the incision, deep wound VAC sponge on the wound. Wound care nurse will be consulted in the hospital. Therapy: Weightbearing as tolerated, posterior hip precautions. Postoperative seroma, previous infected nail: Will consult infectious disease for antibiotic management. Cultures were taken today. During the course of the procedure the physician automotive brake technician (PE) played a vital role. Their intimate knowledge of my steps in the procedure aided in safe and expedient completion of the procedure. The PE played a vital rolls in positioning particularly in obtaining the appropriate lateral decubitus position. The PE was also vital in the retraction of soft tissues during the exposure and especially the femoral work as this is a vital part of the procedure to prevent complications and fractures. The PE was also vital and protecting soft tissues during times of bony cuts and reaming. He also played a vital role in closure with my direct supervision. The PE was also important during reduction and dislocation of the joint and trials intraoperatively.
[2023-05-10 15:12] LABS: Lymphocytes 9 %; Neutrophil (Segs) 91 %
[2023-05-10 15:13] LABS: Body Fluid QC Type(s) BF1Q
--- NOTE | 2023-05-10 15:15 | RAD_ITS ---
STUDY: X-RAY - PELVIS AND LEFT HIP REASON FOR EXAM: Female, 72 years old. Post Op -- AP both hips on single colt/lateral of op hip PACU TECHNIQUE: 2 views of the pelvis and hip. COMPARISON: Comparison is made with prior study dated April 29, 2023. FINDINGS: The patient is status post left hip replacement. There is good alignment. There has been no change. Moderate degree of the osteoarthritis of the right hip joint. Bilateral tubal ligation clips. RAD/Hip Min 2 Views (Portable) IMPRESSION: Status post left total hip replacement. There is good alignment. Stable examination. Electronically Signed: Chan Bowers MD at 15:38 EST ,
[2023-05-10] MEDS: oxyCODONE 5 MG Tablet 2.5 MG PO (17:26)
[2023-05-10] MEDS: Potassium Chloride Oral Tablet 20 MEQ PO (17:27)
[2023-05-10] MEDS: Acetaminophen 500 MG Tablet 1000 MG PO (20:41)
[2023-05-10] MEDS: Aspirin E.C. 81 MG Tablet PO (20:41)
[2023-05-10] MEDS: Amox/Clavulanate 875 MG Tablet PO (20:41)
[2023-05-10] MEDS: OLANZapine 2.5 MG Tablet 7.5 MG PO (20:42)
[2023-05-10] MEDS: Senna/Docusate Sodium 1 Tablet 2 TABLET PO (20:42)
[2023-05-10] MEDS: Ursodiol 250 MG Tablet PO (20:43)
[2023-05-10] MEDS: Pravastatin 40 MG Tablet PO (20:43)
[2023-05-10] MEDS: Carbidopa/Levodopa 25/100 Tablet PO (20:43)
[2023-05-11] VITALS (8 sets, daily range): BP systolic 93–119; BP diastolic 50–76; PULSE 90–100; RESP 16–18; TEMP 36.3–37; O2SAT 85–98
[2023-05-11] MEDS: Carbidopa/Levodopa 25/100 Tablet PO ×3 (05:05→20:46)
[2023-05-11] MEDS: Levothyroxine 75 MCG Tablet PO (05:05)
[2023-05-11] MEDS: Nystatin Powder 15gm Bottle 1 APPLIC TOPICAL ×3 (05:06→20:48)
[2023-05-11] MEDS: Acetaminophen 500 MG Tablet 1000 MG PO ×3 (05:06→20:45)
[2023-05-11] MEDS: Menthol/Lanolin/Calamine/Znox 113 GM Tube 1 APPLIC TOPICAL ×3 (05:06→20:48)
[2023-05-11] MEDS: Ondansetron ODT 4 MG Tablet PO (06:21)
[2023-05-11 07:53] LABS: Hematocrit 26.6 % (37-47); Hemoglobin 8.1 g/dL (12.0-15.0); Mean Corp Hgb Conc 30.5 g/dL (32-36); Mean Corpuscular Hgb 29.2 pg (27.0-32.0); Mean Platelet Vol. 10.8 fl (6.2-12.0); Platelet Count 242 K/mm3 (150-450); RBC Distribution Width CV 16.5 % (11.6-14.6); RBC Distribution Width SD 57.9 fl (35.1-43.9); Red Blood Count 2.77 M/mm3 (4.2-5.4); White Blood Count 23.7 K/mm3 (4.4-11.0)
[2023-05-11 08:15] LABS: Anion Gap 7 (5-15); BUN 13 mg/dL (7-18); BUN/Creat Ratio 18.2 RATIO (10-20); Calcium,Total 8.3 mg/dL (8.5-10.1); Chloride 105 mmol/L (98-107); Creatinine, Serum 0.71 mg/dL (0.55-1.02); EST Glomerular Filtration Rate 85 mL/min (>60); Est Glom Filt Rate - Afr Amer 103 mL/min (>60); Estimated Creatinine Clearance 40.83 ml/min; Glucose 121 mg/dL (74-106); Potassium 4.1 mmol/L (3.5-5.1); Sodium Level 138 mmol/L (136-145)
[2023-05-11] MEDS: Potassium Chloride Oral Tablet 20 MEQ PO ×2 (08:20→17:56)
[2023-05-11] MEDS: Aspirin E.C. 81 MG Tablet PO (08:20)
[2023-05-11] MEDS: Pantoprazole Sodium 40 MG Tablet PO ×2 (08:25→08:26)
[2023-05-11] MEDS: Ursodiol 250 MG Tablet PO ×2 (08:25→20:47)
[2023-05-11] MEDS: Senna/Docusate Sodium 1 Tablet 2 TABLET PO ×2 (08:26→20:46)
[2023-05-11] MEDS: terbinafine HCL 250 MG TABLET PO (08:28)
[2023-05-11] MEDS: Cholecalciferol (VIT D3) 25 MCG TABLET (1,000 UNITS) PO (09:18)
[2023-05-11] MEDS: oxyCODONE 5 MG Tablet 2.5 MG PO ×2 (09:18→20:44)
[2023-05-11] MEDS: Psyllium 1 PACKET PO (09:19)
[2023-05-11] MEDS: Citalopram 20 MG Tablet PO (09:19)
[2023-05-11] MEDS: Amox/Clavulanate 875 MG Tablet PO ×2 (09:19→20:48)
--- NOTE | 2023-05-11 09:42 | PN.ORTHO_ITS ---
Subjective Subjective The patient was sitting in bed upon examination. Patient denies any chest pain, shortness of breath, dizziness, lightheadedness, nausea or vomiting, or calf pain. No adverse overnight events. She has been using primarily Tylenol for pain. She states to me that is not controlling her pain. However nursing state s she was told that the Tylenol was controlling her pain. Patient had previous surgery 4 weeks ago in which she had a removal of antibiotic spacer and revision to hemiarthroplasty left hip. She was eventually admitted into the hospital and was at the transitional care unit. There was concerns with swelling and her incision. MRI was ordered. Preoperatively patient did receive 2 units of packed red blood cells at the transitional care unit. She is currently on ferrous sulfate. Patient has not yet worked with physical therapy. The plan is to try to get the patient back to the transitional care unit when medically appropriate. Case management currently on board and states pre-CERT needs to be obtained. Patient is currently with 2 Hemovac drains and a wound VAC. Wound nurse has been consulted for management of the wound and wound VAC. Consult with infectious disease has been placed as well. She is currently on oral antibiotic. Objective Data Objective Data Vital Signs: Vital Signs Temp Pulse Resp BP Pulse Ox O2 Del Method O2 Flow Rate 98.6 F 94 18 93/50 L 97 Room Air 2 05/11/23 08:10 05/11/23 08:10 05/11/23 08:10 05/11/23 08:10 05/11/23 08:10 05/11/23 08:11 05/11/23 05:23 Oxygen Flow Rate (L/min) 2 Oxygen Delivery Method Room Air Weight: 83.915 kg Body Mass Index (BMI) 31.7 Intake & Output: Intake and Output for Last 24 Hours 05/09/23 05/10/23 05/11/23 23:59 23:59 23:59 Intake Total 2433.5 / 2433.5 600 / 600 Output Total 780 / 780 680 / 680 Balance 1653.5 / 1653.5 -80 / -80 Lab / Micro Data 05/11/23 06:56 05/11/23 06:56 Labs: Laboratory Results - last 24 hr 05/10/23 09:17: POC Glucose 94 05/10/23 12:26: Fluid Source OTHER, Fluid Color RED, Fluid Appearance TURBID, Fluid WBC 48.300, Fluid RBC 0.123, Fluid Tot Cell Count 48.600 H, Fld Polynuclear WBCs # 44.875, Fld Polynuclear WBCs % 93.0, Fluid Mononuclear WBCs 3.400, Fld Mononuclear WBCs % 7.0, Fluid Neutrophils 91, Fluid Lymphocytes 9, Fl Pathologist Comment May follow, Fluid Comment 2 SEE COMMENT 05/11/23 06:56: WBC 23.7 H, RBC 2.77 L, Hgb 8.1 L, Hct 26.6 L, MCV 96.0, MCH 29.2, MCHC 30.5 L, RDW Std Deviation 57.9 H, RDW Coeff of Edwar 16.5 H, Plt Count 242, MPV 10.8, Sodium 138, Potassium 4.1, Chloride 105, Carbon Dioxide 26.0, Anion Gap 7, BUN 13, Creatinine 0.71, Estim Creat Clear Calc 40.83, Est GFR (MDRD) Af Amer 103, Est GFR (MDRD) Non-Af 85, BUN/Creatinine Ratio 18.2, Glucose 121 H, Calcium 8.3 L Micro: Microbiology 05/10/23 13:19 Tissue - Hip Femoral Membrane Gram Stain - Final 05/10/23 12:26 Incision/Surgical Site Gram Stain - Final 05/10/23 13:19 Tissue - Hip Gram Stain - Final 05/10/23 13:19 Tissue - Hip Gram Stain - Final Radiography Diagnostic Testing: Radiology Impression Hip X-Ray 05/10/23 15:15 IMPRESSION: Status post left total hip replacement. There is good alignment. Stable examination. Electronically Signed: Chan Bowers MD at 15:38 EST , Physical Exam Narrative Vital signs stable and afebrile. Patient has had some soft readings with her blood pressure on the lower side. Denies any chest pain, shortness of breath, dizziness or lightheadedness. SCDs and BIENVENIDO hose are in place bilaterally Patient is able to plantarflex and dorsiflex actively. Sensation is intact to light touch to saphenous, sural, superficial and deep peroneal, and tibial distribution. Wound VAC currently in place with trace amount of drainage in the tubing 2 Hemovac drains are in place: 1 superficial and 1 deep Negative Homans bilaterally, negative signs and symptoms of DVT. Const alert, oriented x3 and no apparent distress Assessment & Plan Assessment/Plan (1) Seroma after procedure: (2) History of revision of total replacement of left hip joint: PLAN: 1. S/P irrigation debridement complete synovectomy left hip with excision of deep sinus tract with hematoma/seroma evacuation, complex wound closure, placement of incisional wound VAC, aspiration left hip POD #1 2. Continue Pain Medications: Tylenol and oxycodone 3. DVT Prophylaxis: Patient will be placed on Eliquis 2.5 mg twice daily for 2 weeks followed by aspirin 81 mg twice daily for an additional 2 weeks. Patient does have past history of DVT. 4. PT/OT: Weightbearing as tolerated with walker. Continue with posterior hip dislocation precautions for 3 months postoperatively. 5. H & H: 8.1/26.6, asymptomatic. Monitoring patient's hemoglobin and hematocrit with postoperative acute on chronic anemia without any intra operative complications. Patient has been treated with ferrous sulfate preoperatively and we will continue with this postoperatively. We will continue to monitor with repeat lab work tomorrow. She did have 2 units packed red blood cells preoperatively at the transitional care unit. She is currently asymptomatic clinically but does have some soft blood pressures. 6. Reactive leukocytosis: 23.7, Afebrile. Patient did receive Decadron intraoperatively. No clinical signs of infection. Will continue to monitor with repeat lab work tomorrow 7. Infectious disease consultation: Appreciate recommendations with regards to antibiotics. Microbiology has been reviewed and there is been no growth on Gram stain's. Cultures are pending. She is currently on Augmentin postoperatively. 8. Incisional wound VAC: Consultation with wound nurse has been placed. Plan will be for continuation of the incisional wound VAC as there was a complex closure. Portion of the incision was not able to be closed due to potential tension on the skin. This area will require healing through secondary i ntention. Continue with wound VAC with changes twice weekly. Patient will require this upon discharge and continued monitoring. 9. Drains: Patient currently has 2 drains with 1 being deep and one s uperficial. Over the past 24 hours there has been 160 mL output in the deep drain and 50 mL output in the superficial drain. 10. Continue postoperative medical management per medicine: Appreciate any recommendations from medicine standpoint as patient has multiple comorbidities. 11. Encouraged Incentive Spirometry 12. Disposition: Patient recently came from the transitional care unit at [facility] in which she was recovering postoperatively. The plan will be for patient to return to transitional care unit as this will help with continued medical management from infectious disease standpoint, wound nurse standpoint. Case management is currently involved and they do require pre-CERT for her to return to the transitional care unit. We will continue with the drains at this time until they are appropriate to be removed. We will repeat lab work tomorrow. Continue with physical therapy while in the hospital. I have reviewed the [place] Automated Rx Reporting System (OARRS) report for this patient for refill pattern and other prescriber involvement as part of the appro priate surveillance for the provision of acute and chronic controlled medications. The report was requested and reviewed on the date of this entry and was considered in the prescribing process. This dictation was created using voice recognition software. Phonetic and/or grammatical errors may exist.
[2023-05-11 10:26] LABS: Pathologist Comment/Body Fluid Reviewed
--- NOTE | 2023-05-11 10:40 | PCM.PN.HOSP ---
Reason for Visit Reason for Visit: Diagnoses Pain in left hip (05/10/23) Encounter for other preprocedural examination (05/10/23) Presence of left artificial hip joint (05/10/23) Objective Data Objective Data Vital Signs: Vital Signs Temp Pulse Resp BP Pulse Ox O2 Del Method O2 Flow Rate 98.6 F 94 18 93/50 L 97 Room Air 2 05/11/23 08:10 05/11/23 08:10 05/11/23 08:10 05/11/23 08:10 05/11/23 08:10 05/11/23 08:11 05/11/23 05:23 Oxygen Flow Rate (L/min) 2 Oxygen Delivery Method Room Air Weight: 185 lb Body Mass Index (BMI) 31.7 Intake & Output: Intake and Output for Last 24 Hours 05/09/23 05/10/23 05/11/23 23:59 23:59 23:59 Intake Total 2433.5 / 2433.5 600 / 600 Output Total 780 / 780 680 / 680 Balance 1653.5 / 1653.5 -80 / -80 Lab / Micro Data 05/11/23 06:56 05/11/23 06:56 Labs: Laboratory Results - last 24 hr 05/10/23 12:26: Fluid Source OTHER, Fluid Color RED, Fluid Appearance TURBID, Fluid WBC 48.300, Fluid RBC 0.123, Fluid Tot Cell Count 48.600 H, Fld Polynuclear WBCs # 44.875, Fld Polynuclear WBCs % 93.0, Fluid Mononuclear WBCs 3.400, Fld Mononuclear WBCs % 7.0, Fluid Neutrophils 91, Fluid Lymphocytes 9, Fl Pathologist Comment Reviewed, Fluid Comment 2 SEE COMMENT 05/11/23 06:56: WBC 23.7 H, RBC 2.77 L, Hgb 8.1 L, Hct 26.6 L, MCV 96.0, MCH 29.2, MCHC 30.5 L, RDW Std Deviation 57.9 H, RDW Coeff of Edwar 16.5 H, Plt Count 242, MPV 10.8, Sodium 138, Potassium 4.1, Chloride 105, Carbon Dioxide 26.0, Anion Gap 7, BUN 13, Creatinine 0.71, Estim Creat Clear Calc 40.83, Est GFR (MDRD) Af Amer 103, Est GFR (MDRD) Non-Af 85, BUN/Creatinine Ratio 18.2, Glucose 121 H, Calcium 8.3 L Micro: Microbiology 05/10/23 13:19 Tissue - Hip Femoral Membrane Gram Stain - Final 05/10/23 13:19 Tissue - Hip Femoral Membrane Wound Culture - Preliminary 05/10/23 13:19 Tissue - Hip Gram Stain - Final 05/10/23 13:19 Tissue - Hip Wound Culture - Preliminary No growth-Final to follow 05/10/23 13:19 Tissue - Hip Gram Stain - Final 05/10/23 13:19 Tissue - Hip Wound Culture - Preliminary No growth-Final to follow 05/10/23 12:26 Incision/Surgical Site Gram Stain - Final 05/10/23 12:26 Incision/Surgical Site Wound Culture - Preliminary No growth-Final to follow Radiography Diagnostic Testing: Radiology Impression Hip X-Ray 05/10/23 15:15 IMPRESSION: Status post left total hip replacement. There is good alignment. Stable examination. Physical Exam Narrative Seen and examined. Patient throwing up mainly gastric content. Had surgery on the left hip yesterday. No chest pain or cough or shortness of breath. General: Alert, Oriented x3, Cooperative. Obesity grade 1 BMI 32.8 kg/m? HEENT: Atraumatic, PERRLA, EOMI, Normocephalic Oral: Oral mucosa moist. No Gingival or Mucosal Lesions/ Ulcerations Neck: Supple, No JVD, Negative Carotid Bruits Lungs: Air entry diminished in bilateral lung bases. No crepitation/rhonchi Cardiovascular: Regular rate, Regular Rhythm, Normal S1, Normal S2, No murmurs Abdomen: Bowel Sounds Present, Soft, Non Tender, Non-Distended : No renal angle tenderness. No suprapubic tenderness. Extremities: No edema, Capillary Refill Less than 3 Seconds Skin: No rashes, No breakdown Musculoskeletal: Left hip surgical dressing is dry. 2 drains present. Mild reactive edema and tenderness around the surgical site. No hematoma. Neurological: Cranial nerves II-XII grossly intact, DTR 2+/4. No acute focal neurological deficit. Psych/Mental Status: Flat affect. Assessment & Plan Assessment/Plan (1) Seroma after procedure: PLAN: Plan History of left hip osteoarthritis status post prosthetic joint infection -On 05/10/2023, patient had I&D of postoperative left hip hematoma with synovectomy and excision of deep sinus tract within the hematoma/seroma evacuation with complex wound closure -Wound VAC -Consult wound nurse -Pain medication per primary service -Culture are pending -On amoxicillin/clavulanate and doxycycline -Recommend bowel regimen to avoid constipation History of DIC -Patient with history of DIC diagnosed in November 2022 -Platelet count is now normalized -Would recommend continuing to monitor this Chronic anemia -Hemoglobin was 8.5 and patient was transfused packed red blood cells -Preop hemoglobin was 12.5. Dropped to 8.1 g. Parkinson's disease -Continue home carbidopa/levodopa History of rheumatoid arthritis -Patient had previously been on methotrexate, hydroxychloroquine, and folic acid at baseline -Appears to be on no chronic medication at this time Hyperlipidemia -Continue statin History of right upper extremity DVT -October 2022 -Not on any anticoagulation preoperatively but plans for postoperatively will be forward Eliquis 2.5 mg twice daily for 2 weeks followed by aspirin 81 mg daily for an additional 2 weeks Hypothyroidism -Continue levothyroxine GERD/Ruiz's esophagitis -Continue omeprazole History of vitamin D deficiency -Continue home vitamin D supplementation Depression -Continue citalopram -Continue olanzapine DVT prophylaxis -Per primary service -Plan is for Eliquis 2.5 mg twice daily for 2 weeks followed by aspirin 81 mg p.o. daily for 2 weeks Charges/Coding Visit Charges Inpatient E&M: 49152 [facility] L2
--- NOTE | 2023-05-11 10:44 | PCM.CONS.GEN ---
Assessment & Plan Assessment/Plan (1) Seroma after procedure: PLAN: Taken to OR 05/10/[address] Frances for I&D of post-op seroma. Surg cx neg so far. Will request micro hold for 14 days. Recommend 14 days po doxy and augmentin while cxs pending. Will follow as needed, thank you, d/w ortho team. (2) History of revision of total replacement of left hip joint: HPI Consult Data Date of Consult: 05/11/23 HPI Narrative Reason for Consultation: seroma HPI Narrative: DANDRE PERAZA, is a 72 F who presented with L hip fracture 08/2022. Had nail placement 09/14/[address] Frances, then spacer placement 09/2022 due to possible abscess. Finished empiric abx 6 weeks later. Had 2nd stage repair 03/2023. Was at TCU, over past few weeks, progressive L hip swelling and soreness. Imaging done, taken to OR for I&D of seroma. Now on augmentin, feeling ok. Full ROS performed and neg except as noted above. [facility]LY [facility] Medical History Acute diarrhea Anxiety and depression Arthritis Cataracts, bilateral CHI (closed head injury) Chronic anemia GERD (gastroesophageal reflux disease) Hemorrhoids High cholesterol History of DIC syndrome History of renal disease History of revision of total replacement of left hip joint Hypothyroidism IBS (irritable bowel syndrome) Lives in care home Non-smoker Obesity (BMI 30.0-34.9) Osteoarthritis Parkinson disease PICC (peripherally inserted central catheter) in place Pressure ulcer Rheumatoid arthritis Schizophrenia Sleep apnea Ulcerative colitis Uses wheelchair Wears dentures Wears glasses Home Medications pravastatin 40 mg tablet 40 mg PO QHS CHOLESTEROL 03/22/17 [History Last Taken 04/11/23] carbidopa 25 mg-levodopa 100 mg tablet 1 tab PO TID parkinsons 09/13/22 [History Last Taken 04/12/23] citalopram 40 mg tablet 20 mg PO DAILY DEPRESSION 09/13/22 [History Last Taken 04/11/23] levothyroxine 75 mcg tablet 75 mcg PO DAILY THYROID 09/13/22 [History Last Taken 04/12/23] olanzapine 7.5 mg tablet 7.5 mg PO QHS MOOD 09/13/22 [History Last Taken 09/12/22] omeprazole 40 mg capsule,delayed release 40 mg PO DAILY ACID REFLUX 09/13/22 [History Last Taken 04/12/23] potassium chloride 20 mEq tablet,extended release(part/cryst) 20 meq PO BID SUPPLEMENT 09/13/22 [History Last Taken 04/11/23] ferrous sulfate 325 mg (65 mg iron) tablet 325 mg PO DAILY supplimentation 11/24/22 [History Last Taken 04/11/23] albuterol sulfate 90 mcg/actuation aerosol inhaler 2 inh inhalation Q6H PRN shortness of breath or wheezing 03/22/23 [History Last Taken 04/11/23] cholecalciferol (vitamin D3) 25 mcg (1,000 unit) capsule (Vitamin D3) 25 mcg PO DAILY SUPPLEMENT 03/22/23 [History Last Taken 04/11/23] food supplemt, lactose-reduced 0.08 gram-1.5 kcal/mL oral liquid (Ensure Plus High Protein) 120 ml PO DAILY SUPPLEMENT 03/22/23 [History Last Taken 04/11/23] psyllium seed (sugar) oral powder (Fiber Therapy (psyllium seed-sucrose) oral powder) 1 tbsp PO DAILY SUPPLEMENT 03/22/23 [History Last Taken 04/11/23] terbinafine HCl 250 mg tablet 250 mg PO DAILY TOE FUNGUS 03/22/23 [History Last Taken 04/11/23] acetaminophen 500 mg tablet 1,000 mg (2 x 500 mg) PO Q8 pain #0 tabs 04/15/23 [Rx Last Taken 05/10/23] ondansetron 4 mg disintegrating tablet 4 mg PO Q8H PRN nausea and vomiting #20 tabs 04/15/23 [Rx Last Taken Unknown] aspirin 81 mg tablet,delayed release 81 mg PO BID heart health 04/29/23 [History Last Taken 05/03/23] amoxicillin 875 mg-potassium clavulanate 125 mg tablet 1 tab PO BID antibiotic 12 days #24 tabs 05/03/23 [Rx Last Taken Unknown] loperamide 2 mg capsule 2 mg PO Q4H PRN PRN DIARRHEA/LOOSE STOOLS 14 days #68 caps 05/03/23 [Rx Last Taken Unknown] ursodiol 250 mg tablet 250 mg PO BID URINATION #60 tabs 05/05/23 [Rx Last Taken Unknown] Allergy/AdvReac Type Severity Reaction Status Date / Time linaclotide [From Linzess] Allergy Mild chest Verified 05/10/23 09:17 tightness histamine phosphate Allergy Unknown Verified 05/10/23 09:17 [From Histatrol] Family History Mother Heart disease Father Heart disease Brother Heart disease Surgical History (Updated 05/09/23 @ 10:14 by Marlena Allen) H/O colonoscopy with polypectomy History of hemiarthroplasty of left hip History of hip surgery History of knee replacement History of tonsillectomy and adenoidectomy History of tubal ligation Hx of surgical procedure Hx of total hip arthroplasty Social History household members: spouse Smoking Status: Never smoker alcohol intake: never substance use type: does not use what type of physical activity do you participate in: walking frequency: 1-2 times per week Physical Exam Const alert, oriented x3 and no apparent distress General Appearance: cooperative HEENT normocephalic Eyes PERRL and EOMs intact bilaterally Neck supple and No nodes Resp normal air movement and clear to auscultation bilaterally Cardio regular rate and regular rhythm GI soft to palpation, non-tender and non-distended Extremity General Extremity: edema Skin no rashes or lesions noted Skin Narrative: L hip wound vac Neuro CN's II-XII intact bilaterally Lab / Micro Data Attestation: I reviewed the patient's lab results. 05/11/23 06:56 05/11/23 06:56 Labs: Laboratory Results - last 24 hr 05/10/23 12:26: Fluid Source OTHER, Fluid Color RED, Fluid Appearance TURBID, Fluid WBC 48.300, Fluid RBC 0.123, Fluid Tot Cell Count 48.600 H, Fld Polynuclear WBCs # 44.875, Fld Polynuclear WBCs % 93.0, Fluid Mononuclear WBCs 3.400, Fld Mononuclear WBCs % 7.0, Fluid Neutrophils 91, Fluid Lymphocytes 9, Fl Pathologist Comment Reviewed, Fluid Comment 2 SEE COMMENT 05/11/23 06:56: WBC 23.7 H, RBC 2.77 L, Hgb 8.1 L, Hct 26.6 L, MCV 96.0, MCH 29.2, MCHC 30.5 L, RDW Std Deviation 57.9 H, RDW Coeff of Edwar 16.5 H, Plt Count 242, MPV 10.8, Sodium 138, Potassium 4.1, Chloride 105, Carbon Dioxide 26.0, Anion Gap 7, BUN 13, Creatinine 0.71, Estim Creat Clear Calc 40.83, Est GFR (MDRD) Af Amer 103, Est GFR (MDRD) Non-Af 85, BUN/Creatinine Ratio 18.2, Glucose 121 H, Calcium 8.3 L Micro: Microbiology 05/10/23 13:19 Tissue - Hip Femoral Membrane Gram Stain - Final 05/10/23 13:19 Tissue - Hip Femoral Membrane Wound Culture - Preliminary 05/10/23 13:19 Tissue - Hip Gram Stain - Final 05/10/23 13:19 Tissue - Hip Wound Culture - Preliminary No growth-Final to follow 05/10/23 13:19 Tissue - Hip Gram Stain - Final 05/10/23 13:19 Tissue - Hip Wound Culture - Preliminary No growth-Final to follow 05/10/23 12:26 Incision/Surgical Site Gram Stain - Final 05/10/23 12:26 Incision/Surgical Site Wound Culture - Preliminary No growth-Final to follow Imagaing Radiology Impression Hip X-Ray 05/10/23 15:15 IMPRESSION: Status post left total hip replacement. There is good alignment. Stable examination. Electronically Signed: Chan Bowers MD at 15:38 EST ,
[2023-05-11] MEDS: Doxycycline 100 MG CAPSULE PO ×2 (10:51→20:46)
[2023-05-11] MEDS: APIXABAN 2.5 MG TABLET (WCH) PO ×2 (10:51→20:48)
--- NOTE | 2023-05-11 11:27 | CASEMGMT ---
Social Work Pt is admitted from TCU. LEONORA spoke with PA who states pt will likely be ready for discharge on Monday. LEONORA met with pt and introduced self and role of SW. Pt confirms that she would like to return to TCU. LEONORA educated pt that new precert will be needed prior to return and pt is understanding. LEONORA spoke with pts spouse and discussed the same. Spouse also agreeable to dc plan. Referral made to Qi in TCU and she is able to accept and precert will be started at this time. Plan: TCU, pending precert JES Foreman
[2023-05-11] MEDS: Ondansetron 4 MG/2 ML Vial IV (12:19)
[2023-05-11] MEDS: Ferrous Sulfate 325 MG Tablet PO (12:19)
[2023-05-11] MEDS: 0.9% Saline Lock 10 ML Syringe IV ×2 (12:19→16:04)
[2023-05-11] MEDS: Sodium Ferric Gluconat/Sucrose 250 MG in 0.9% Normal Saline (250mL Bag) 250 ML 135 MG IV (16:03)
[2023-05-11] MEDS: OLANZapine 2.5 MG Tablet 7.5 MG PO (20:47)
[2023-05-11] MEDS: Pravastatin 40 MG Tablet PO (20:47)
[2023-05-12] VITALS (9 sets, daily range): BP systolic 91–118; BP diastolic 51–66; PULSE 86–99; RESP 16–18; TEMP 36.2–36.8; O2SAT 94–98
[2023-05-12 05:40] LABS: Hematocrit 25.1 % (37-47); Hemoglobin 7.6 g/dL (12.0-15.0); Mean Corp Hgb Conc 30.3 g/dL (32-36); Mean Corpuscular Hgb 29.5 pg (27.0-32.0); Mean Corpuscular Volume 97.3 fL (81-99); Mean Platelet Vol. 10.9 fl (6.2-12.0); Platelet Count 227 K/mm3 (150-450); RBC Distribution Width CV 16.4 % (11.6-14.6); RBC Distribution Width SD 58.7 fl (35.1-43.9); Red Blood Count 2.58 M/mm3 (4.2-5.4); White Blood Count 16.4 K/mm3 (4.4-11.0)
[2023-05-12] MEDS: Acetaminophen 500 MG Tablet 1000 MG PO ×2 (05:54→14:26)
[2023-05-12] MEDS: Levothyroxine 75 MCG Tablet PO (05:54)
[2023-05-12] MEDS: Carbidopa/Levodopa 25/100 Tablet PO ×2 (05:54→14:25)
[2023-05-12 06:18] LABS: Anion Gap 5 (5-15); BUN 8 mg/dL (7-18); Calcium,Total 8.2 mg/dL (8.5-10.1); Chloride 109 mmol/L (98-107); Creatinine, Serum 0.67 mg/dL (0.55-1.02); EST Glomerular Filtration Rate 92 mL/min (>60); Est Glom Filt Rate - Afr Amer 111 mL/min (>60); Estimated Creatinine Clearance 40.83 ml/min; Glucose 92 mg/dL (74-106); Potassium 3.8 mmol/L (3.5-5.1); Sodium Level 142 mmol/L (136-145)
[2023-05-12] MEDS: APIXABAN 2.5 MG TABLET (WCH) PO (09:50)
[2023-05-12] MEDS: Potassium Chloride Oral Tablet 20 MEQ PO ×2 (09:50→17:02)
[2023-05-12] MEDS: Doxycycline 100 MG CAPSULE PO (09:50)
[2023-05-12] MEDS: Citalopram 20 MG Tablet PO (09:50)
[2023-05-12] MEDS: Pantoprazole Sodium 40 MG Tablet PO (09:50)
[2023-05-12] MEDS: Amox/Clavulanate 875 MG Tablet PO (09:50)
[2023-05-12] MEDS: Cholecalciferol (VIT D3) 25 MCG TABLET (1,000 UNITS) PO (09:50)
[2023-05-12] MEDS: Ursodiol 250 MG Tablet PO (09:50)
[2023-05-12] MEDS: Menthol/Lanolin/Calamine/Znox 113 GM Tube 1 APPLIC TOPICAL (09:51)
[2023-05-12] MEDS: Nystatin Powder 15gm Bottle 1 APPLIC TOPICAL (09:52)
[2023-05-12] MEDS: terbinafine HCL 250 MG TABLET PO (09:53)
--- NOTE | 2023-05-12 10:40 | WOUNDNOTE ---
wound photo: left hip
--- NOTE | 2023-05-12 12:31 | CASEMGMT ---
Discharge Planning Patient will return to TCU. Green sheet placed on chart. Domenica Santos, Discharge Planning Asst.
--- NOTE | 2023-05-12 13:26 | CASEMGMT ---
Social Work Precert has been obtained for pt to return to TCU. PA updated and will be in later today to see pt and possibly discharge. SW met with pt and updated on this. Pt is agreeable to return to TCU when medically ready. Plan: TCU, when medically ready JES Foreman
[2023-05-12] MEDS: oxyCODONE 5 MG Tablet 2.5 MG PO (14:25)
[2023-05-12] MEDS: Ferrous Sulfate 325 MG Tablet PO (14:26)
--- NOTE | 2023-05-12 14:45 | PCM.PN.HOSP ---
Reason for Visit Reason for Visit: Diagnoses Pain in left hip (05/10/23) Encounter for other preprocedural examination (05/10/23) Presence of left artificial hip joint (05/10/23) Objective Data Objective Data Vital Signs: Vital Signs Temp Pulse Resp BP Pulse Ox O2 Del Method O2 Flow Rate 97.8 F 87 18 97/51 L 95 Room Air 2 05/12/23 09:58 05/12/23 09:58 05/12/23 09:58 05/12/23 09:58 05/12/23 09:58 05/12/23 09:58 05/12/23 08:16 Oxygen Flow Rate (L/min) 2 Oxygen Delivery Method Room Air Weight: 185 lb Body Mass Index (BMI) 31.7 Intake & Output: Intake and Output for Last 24 Hours 05/10/23 05/11/23 05/12/23 23:59 23:59 23:59 Intake Total 2433.5 / 2433.5 1820 / 1820 650 / 650 Output Total 780 / 780 2630 / 2710 1400 / 1400 Balance 1653.5 / 1653.5 -810 / -890 -750 / -750 Lab / Micro Data 05/12/23 04:45 05/12/23 04:45 Labs: Laboratory Results - last 24 hr 05/10/23 12:26: Miscellaneous Cytology SEE PATHOLOGY REPORT 05/12/23 04:45: WBC 16.4 H, RBC 2.58 L, Hgb 7.6 L, Hct 25.1 L, MCV 97.3, MCH 29.5, MCHC 30.3 L, RDW Std Deviation 58.7 H, RDW Coeff of Edwar 16.4 H, Plt Count 227, MPV 10.9, Sodium 142, Potassium 3.8, Chloride 109 H, Carbon Dioxide 28.0, Anion Gap 5, BUN 8, Creatinine 0.67, Estim Creat Clear Calc 40.83, Est GFR (MDRD) Af Amer 111, Est GFR (MDRD) Non-Af 92, BUN/Creatinine Ratio 12.0, Glucose 92, Calcium 8.2 L 05/12/23 12:55: Blood Type O POSITIVE, Antibody Screen NEGATIVE, Crossmatch See Detail Micro: Microbiology 05/10/23 12:26 Incision/Surgical Site Gram Stain - Final 05/10/23 12:26 Incision/Surgical Site Wound Culture - Preliminary No growth-Final to follow 05/10/23 12:26 Incision/Surgical Site Anaerobic Culture - Preliminary No growth in 48 hours. 05/10/23 13:19 Tissue - Hip Femoral Membrane Gram Stain - Final 05/10/23 13:19 Tissue - Hip Femoral Membrane Wound Culture - Preliminary 05/10/23 13:19 Tissue - Hip Femoral Membrane Anaerobic Culture - Preliminary Checking for anaerobes, further studies to follow. 05/10/23 13:19 Tissue - Hip Gram Stain - Final 05/10/23 13:19 Tissue - Hip Wound Culture - Preliminary No growth-Final to follow 05/10/23 13:19 Tissue - Hip Anaerobic Culture - Preliminary No growth in 48 hours. 05/10/23 13:19 Tissue - Hip Gram Stain - Final 05/10/23 13:19 Tissue - Hip Wound Culture - Preliminary No growth-Final to follow 05/10/23 13:19 Tissue - Hip Anaerobic Culture - Preliminary No growth in 48 hours. Physical Exam Narrative Seen and examined. Patient vomiting at the start. But patient blood pressure was low in the morning, 93/50 which got improved to 150s/61. Patient also severely anemic, hemoglobin 7.6. Postop day 2. Physical exam: General: Alert, Oriented x3, Cooperative. Obesity grade 1 BMI 32.8 kg/m? HEENT: Pale conjunctiva. Atraumatic, PERRLA, EOMI, Normocephalic Oral: Oral mucosa moist. No Gingival or Mucosal Lesions/ Ulcerations Neck: Supple, No JVD, Negative Carotid Bruits Lungs: Air entry diminished in bilateral lung bases. No crepitation/rhonchi Cardiovascular: Regular rate, Regular Rhythm, Normal S1, Normal S2, No murmurs Abdomen: Bowel Sounds Present, Soft, Non Tender, Non-Distended : No renal angle tenderness. No suprapubic tenderness. Extremities: No edema, Capillary Refill Less than 3 Seconds Skin: No rashes, No breakdown Musculoskeletal: Left hip surgical dressing is dry. 1 drain came out to spontaneously/fell off. Dressing is dry. Wound VAC and 1 surgical drain present. Mild reactive edema around the surgical site. No hematoma. Neurological: Cranial nerves II-XII grossly intact, DTR 2+/4. No acute focal neurological deficit. Psych/Mental Status: Flat affect. Assessment & Plan Assessment/Plan (1) Seroma after procedure: PLAN: Plan History of left hip osteoarthritis status post prosthetic joint infection -On 05/10/2023, patient had I&D of postoperative left hip hematoma with synovectomy and excision of deep sinus tract within the hematoma/seroma evacuation with complex wound closure -Wound VAC -Consult wound nurse -Pain medication per primary service -Culture are pending -On amoxicillin/clavulanate and doxycycline -Recommend bowel regimen to avoid constipation 05/12: Postop day 2. Patient had bowel movement today. Pain is controlled. Continue antibiotic as per ID recommendation. Vies 2 more weeks of doxycycline and Augmentin while cultures are pending. Patient is being discharged to TCU and will follow-up there. History of DIC -Patient with history of DIC diagnosed in November 2022 -Platelet count is now normalized -Would recommend continuing to monitor this Chronic anemia -Hemoglobin was 8.5 and patient was transfused packed red blood cells -Preop hemoglobin was 12.5. Dropped to 8.1 g. 05/12 hemoglobin dropped to 7.6. 1 unit of PRBC ordered. Parkinson's disease -Continue home carbidopa/levodopa History of rheumatoid arthritis -Patient had previously been on methotrexate, hydroxychloroquine, and folic acid at baseline -Appears to be on no chronic medication at this time Hyperlipidemia -Continue statin History of right upper extremity DVT -October 2022 -Not on any anticoagulation preoperatively but plans for postoperatively will be forward Eliquis 2.5 mg twice daily for 2 weeks followed by aspirin 81 mg daily for an additional 2 weeks Hypothyroidism -Continue levothyroxine GERD/Ruiz's esophagitis -Continue omeprazole History of vitamin D deficiency -Continue home vitamin D supplementation Depression -Continue citalopram -Continue olanzapine DVT prophylaxis -Per primary service -Plan is for Eliquis 2.5 mg twice daily for 2 weeks followed by aspirin 81 mg p.o. daily for 2 weeks Patient does not have dizziness or lightheadedness. Blood pressure is improved. Patient can be transferred to TCU after PRBC transfusion. Charges/Coding Visit Charges Inpatient E&M: 01439 Subs Hosp L2
--- NOTE | 2023-05-12 15:30 | PCM.PN.ORT ---
Subjective Subjective The patient was sitting in bedside chair upon examination. Patient denies any chest pain, shortness of breath, dizziness, lightheadedness, nausea or vomiting, or calf pain. Pain is controlled on medications. No adverse overnight events. Patient overall is doing well from orthopedic standpoint. She did have a drop in her hemoglobin in which medicine ordered 1 unit packed red blood cell to be administered today. Her blood pressure has improved from this morning. Case was discussed with medicine and he is okay with transfer to the transitional care unit after the 1 unit of packed red blood cells. Infectious disease has also been following patient and currently on doxycycline and Augmentin. There has been no growth on cultures or Gram stain's. This morning the deep drain was accidentally pulled. They have changed the wound VAC dressing today. With physical therapy today patient walked 50 feet with front wheeled walker with contact-guard. Additional therapy was recommended. Approval has been obtained from insurance for patient to be discharged back to the transitional care unit. Objective Data Objective Data Vital Signs: Vital Signs Temp Pulse Resp BP Pulse Ox O2 Del Method O2 Flow Rate 98.3 F 99 18 109/58 L 97 Room Air 2 05/12/23 14:30 05/12/23 14:30 05/12/23 14:30 05/12/23 14:30 05/12/23 14:30 05/12/23 14:30 05/12/23 08:16 Oxygen Flow Rate (L/min) 2 Oxygen Delivery Method Room Air Weight: 83.915 kg Body Mass Index (BMI) 31.7 Intake & Output: Intake and Output for Last 24 Hours 05/10/23 05/11/23 05/12/23 23:59 23:59 23:59 Intake Total 2433.5 / 2433.5 1820 / 1820 650 / 650 Output Total 780 / 780 2630 / 2710 1400 / 1400 Balance 1653.5 / 1653.5 -810 / -890 -750 / -750 Lab / Micro Data 05/12/23 04:45 05/12/23 04:45 Labs: Laboratory Results - last 24 hr 05/10/23 12:26: Miscellaneous Cytology SEE PATHOLOGY REPORT 05/12/23 04:45: WBC 16.4 H, RBC 2.58 L, Hgb 7.6 L, Hct 25.1 L, MCV 97.3, MCH 29.5, MCHC 30.3 L, RDW Std Deviation 58.7 H, RDW Coeff of Edwar 16.4 H, Plt Count 227, MPV 10.9, Sodium 142, Potassium 3.8, Chloride 109 H, Carbon Dioxide 28.0, Anion Gap 5, BUN 8, Creatinine 0.67, Estim Creat Clear Calc 40.83, Est GFR (MDRD) Af Amer 111, Est GFR (MDRD) Non-Af 92, BUN/Creatinine Ratio 12.0, Glucose 92, Calcium 8.2 L 05/12/23 12:55: Blood Type O POSITIVE, Antibody Screen NEGATIVE, Crossmatch See Detail Micro: Microbiology 05/10/23 12:26 Incision/Surgical Site Gram Stain - Final 05/10/23 12:26 Incision/Surgical Site Wound Culture - Preliminary No growth-Final to follow 05/10/23 12:26 Incision/Surgical Site Anaerobic Culture - Preliminary No growth in 48 hours. 05/10/23 13:19 Tissue - Hip Femoral Membrane Gram Stain - Final 05/10/23 13:19 Tissue - Hip Femoral Membrane Wound Culture - Preliminary 05/10/23 13:19 Tissue - Hip Femoral Membrane Anaerobic Culture - Preliminary Checking for anaerobes, further studies to follow. 05/10/23 13:19 Tissue - Hip Gram Stain - Final 05/10/23 13:19 Tissue - Hip Wound Culture - Preliminary No growth-Final to follow 05/10/23 13:19 Tissue - Hip Anaerobic Culture - Preliminary No growth in 48 hours. 05/10/23 13:19 Tissue - Hip Gram Stain - Final 05/10/23 13:19 Tissue - Hip Wound Culture - Preliminary No growth-Final to follow 05/10/23 13:19 Tissue - Hip Anaerobic Culture - Preliminary No growth in 48 hours. Physical Exam Narrative Vital signs stable and afebrile. Patient's most recent blood pressure 109/58, afebrile. Pulse of 99. Breathing on room air at 97% O2 saturation SCDs and BIENVENIDO hose are in place bilaterally Patient is able to plantarflex and dorsiflex actively. Sensation is intact to light touch to saphenous, sural, superficial and deep peroneal, and tibial distribution. Incisional wound VAC in place with no surrounding erythema. 1 Hemovac drain is remaining in which the superficial drain had 20 mL of output. Hemovac drain was removed today and Steri-Strips with dressing was placed. Patient tolerated the procedure very well. Negative Homans bilaterally, negative signs and symptoms of DVT. Const alert, oriented x3 and no apparent distress Assessment & Plan Assessment/Plan (1) Seroma after procedure: (2) History of revision of total replacement of left hip joint: PLAN: 1. S/P irrigation debridement complete synovectomy left hip with excision of deep sinus tract with hematoma/seroma evacuation, complex wound closure, placement of incisional wound VAC, aspiration left hip POD #2 2. Continue Pain Medications: Tylenol and oxycodone 3. DVT Prophylaxis: Patient will be placed on Eliquis 2.5 mg twice daily for 2 weeks followed by aspirin 81 mg twice daily for an additional 2 weeks. Patient does have past history of DVT. 4. PT/OT: Weightbearing as tolerated with walker. Continue with posterior hip dislocation precautions for 3 months postoperatively. 5. H & H: Currently 7.6/25.1, patient did have some lower blood pressure readings today and the most recent currently 109/58. Will plan to have transitional care unit continue to monitor patient's hemoglobin and hematocrit with postoperative acute on chronic anemia without any intra operative complications. Patient has been treated with ferrous sulfate preoperatively and we will continue with this postoperatively. We will continue to monitor with repeat lab work tomorrow. She did have 2 units packed red blood cells preoperatively at the transitional care unit. Case was discussed with medicine and they did order for 1 unit of packed red blood cells to be given today prior to discharge to the transitional care unit. 6. Reactive leukocytosis: Trending down and currently 16.4, Afebrile. Patient did receive Decadron intraoperatively. No clinical signs of infection. 7. Infectious disease consultation: Appreciate recommendations with regards to antibiotics. Microbiology has been reviewed and there is been no growth on Gram stain's and cultures. Infectious disease did add doxycycline and will continue with the Augmentin as well. Infectious disease will continue to monitor patient and cultures while at the transitional care unit. Case was discussed with infectious disease. 8. Incisional wound VAC: Plan will be for continuation of the incisional wound VAC as there was a complex closure. Portion of the incision was not able to be closed due to potential tension on the skin. This area will require healing through secondary intention. Continue with wound VAC with changes 3 times weekly on Monday, Monday, and Monday. Continue the wound VAC while at the transitional care unit. Case was discussed with the wound nurse. 9. Drains: The deep drain was accidentally pulled this morning. The superficial drain has remained in and there is only been 20 mL of output. This drain was removed today with Steri-Strips placed over incision site. OpSite dressing was then placed. 10. Continue postoperative medical management per medicine: Case was discussed with medicine and they are okay with discharge to the transitional care unit today after the transfusion of 1 unit of packed red blood cells. Patient's blood pressure has improved from this morning. 11. Encouraged Incentive Spirometry 12. Disposition: Patient appears to be doing well orthopedically. She has been working with physical therapy. They are recommending additional physical therapy. Patient did get approval through insurance to be discharged to the transitional care unit. Case was discussed with medicine in which they are okay with discharge from medical standpoint. She will be discharged after the transfusion of 1 unit packed red blood cells today. Case was also discussed with infectious disease and they will continue to monitor while in the transitional care unit. Also discussed case with wound nurse in which we will continue with dressing changes 3 times a week on Monday, Monday, and Monday. Patient will continue with above pain medications and DVT prophylaxis. She will continue on the ferrous sulfate for the acute on chronic anemia. Lab work order will be placed for tomorrow and they will continue to monitor her from an anemia standpoint. Patient will require 2-week follow-up with [facility]. The hospital will arrange this visit. At this time discharge order will be placed. Appreciate all consultations onto this patient and if there are any concerns or questions please contact orthopedics. I have reviewed the [place] Automated Rx Reporting System (OARRS) report for this patient for refill pattern and other prescriber involvement as part of the appropriate surveillance for the provision of acute and chronic controlled medications. The report was requested and reviewed on the date of this entry and was considered in the prescribing process. This dictation was created using voice recognition software. Phonetic and/or grammatical errors may exist.
--- NOTE | 2023-05-12 15:48 | TREXTCAR_ITS ---
Diet Diet Order/Speech Therapy: 05/10/23 17:29 Diet: Regular - General Is pt able to select menu?: Yes Routine Orders/Code Status Routine Lab Work: CBC (Repeat CBC May 13, 2023 and continue to monitor her anemia) and BMP (Repeat BMP May 13, 2023) Code Status: Full Code Wound(s) lt hip: Wound Type: Surgical Incision (Left hip revision posterior approach) Dressing Change: KCI wound VAC (Continue with wound VAC 125 mmHg continuous setting with dressing changes on Monday, Monday, and Monday) Therapies Weight Bearing: Weight bearing as tolerated (With walker) Physical Therapy: Eval and Treat Occupational Therapy: Eval and Treat Problem/Diagnosis (1) Seroma after procedure: Status: Acute (2) History of revision of total replacement of left hip joint: Status: Acute Code(s): Z96.642 - Presence of left artificial hip joint Plan: 1. S/P irrigation debridement complete synovectomy left hip with excision of deep sinus tract with hematoma/seroma evacuation, complex wound closure, placement of incisional wound VAC, aspiration left hip POD #2 2. Continue Pain Medications: Tylenol and oxycodone 3. DVT Prophylaxis: Patient will be placed on Eliquis 2.5 mg twice daily for 2 weeks followed by aspirin 81 mg twice daily for an additional 2 weeks. Patient does have past history of DVT. 4. PT/OT: Weightbearing as tolerated with walker. Continue with posterior hip dislocation precautions for 3 months postoperatively. 5. H & H: Currently 7.6/25.1, patient did have some lower blood pressure readings today and the most recent currently 109/58. Will plan to have transitional care unit continue to monitor patient's hemoglobin and hematocrit with postoperative acute on chronic anemia without any intra operative complications. Patient has been treated with ferrous sulfate preoperatively and we will continue with this postoperatively. We will continue to monitor with repeat lab work tomorrow. She did have 2 units packed red blood cells preoperatively at the transitional care unit. Case was discussed with medicine and they did order for 1 unit of packed red blood cells to be given today prior to discharge to the transitional care unit. 6. Reactive leukocytosis: Trending down and currently 16.4, Afebrile. Patient did receive Decadron intraoperatively. No clinical signs of infection. 7. Infectious disease consultation: Appreciate recommendations with regards to antibiotics. Microbiology has been reviewed and there is been no growth on Gram stain's and cultures. Infectious disease did add doxycycline and will continue with the Augmentin as well. Infectious disease will continue to monitor patient and cultures while at the transitional care unit. Case was discussed with infectious disease. 8. Incisional wound VAC: Plan will be for continuation of the incisional wound VAC as there was a complex closure. Portion of the incision was not able to be closed due to potential tension on the skin. This area will require healing through secondary intention. Continue with wound VAC with changes 3 times weekly on Monday, Monday, and Monday. Continue the wound VAC while at the transitional care unit. Case was discussed with the wound nurse. 9. Drains: The deep drain was accidentally pulled this morning. The superficial drain has remained in and there is only been 20 mL of output. This drain was removed today with Steri-Strips placed over incision site. OpSite dressing was then placed. 10. Continue postoperative medical management per medicine: Case was discussed with medicine and they are okay with discharge to the transitional care unit today after the transfusion of 1 unit of packed red blood cells. Patient's blood pressure has improved from this morning. 11. Encouraged Incentive Spirometry 12. Disposition: Patient appears to be doing well orthopedically. She has been working with physical therapy. They are recommending additional physical therapy. Patient did get approval through insurance to be discharged to the transitional care unit. Case was discussed with medicine in which they are okay with discharge from medical standpoint. She will be discharged after the transfusion of 1 unit packed red blood cells today. Case was also discussed with infectious disease and they will continue to monitor while in the transitional care unit. Also discussed case with wound nurse in which we will continue with dressing changes 3 times a week on Monday, Monday, and Monday. Patient will continue with above pain medications and DVT prophylaxis. She will continue on the ferrous sulfate for the acute on chronic anemia. Lab work order will be placed for tomorrow and they will continue to monitor her from an anemia standpoint. Patient will require 2-week follow-up with [facility]. The hospital will arrange this visit. At this time discharge order will be placed. Appreciate all consultations onto this patient and if there are any concerns or questions please contact orthopedics. I have reviewed the [place] Automated Rx Reporting System (OARRS) report for this patient for refill pattern and other prescriber involvement as part of the appropriate surveillance for the provision of acute and chronic controlled medications. The report was requested and reviewed on the date of this entry and was considered in the prescribing process. This dictation was created using voice recognition software. Phonetic and/or grammatical errors may exist. Allergies/Procedures Done in Hospital Allergies linaclotide [From Linzess] Allergy (Mild, Verified 05/10/23 09:17) chest tightness histamine phosphate [From Histatrol] Allergy (Verified 05/10/23 09:17) Unknown Procedures: Blood transfusion and Wound Vac placement Type of Care/Length of Stay Estimated LOS: Convalescent Care Less Than 30 days Type of Care Needed: Skilled Rehab Potential: Good Prognosis: Good Additional Orders/Day of Discharge Day of Discharge: 05/12/23 Discharge Plan Admission Admit Date/Time: 05/10/23 09:09 Attending Provider: Jorge Frances Primary Care Provider: Raji Herrmann [employer] Providers: Dori Denson; Jabier Forrester Discharge Orders/Prescriptions Prescriptions: New Eliquis 5 mg Tablet 2.5 mg PO BID Qty: 0 0RF Rx Instructions: Eliquis 2.5 mg twice daily for 2 weeks postoperatively for DVT prophylaxis. doxycycline monohydrate 100 mg Capsule 100 mg PO BID Qty: 0 0RF oxycodone 5 mg Tablet 2.5 mg PO Q4H PRN PRN (Reason: Pain Score 4-10) 7 Days Qty: 20 0RF sennosides-docusate sodium [Stool Softener-Stimulant Laxat] 8.6-50 mg Tablet 2 tab PO BID Qty: 0 0RF Rx Instructions: Take until first bowel movement, then as needed Continued ursodiol 250 mg tablet 250 mg PO BID Qty: 60 2RF pravastatin 40 MG tablet 40 mg PO QHS citalopram 40 mg tablet 20 mg PO DAILY Patient Comments: confirmed with daughter pt is taking 20 mg. olanzapine 7.5 mg tablet 7.5 mg PO QHS potassium chloride 20 mEq tablet,ER particles/crystals 20 meq PO BID levothyroxine 75 mcg tablet 75 mcg PO DAILY carbidopa-levodopa 25-100 mg tablet 1 tab PO TID omeprazole 40 mg capsule,delayed release(DR/EC) 40 mg PO DAILY ferrous sulfate 325 mg (65 mg iron) tablet 325 mg PO DAILY Patient Comments: Take 1 tablet by mouth every morning cholecalciferol (vitamin D3) [Vitamin D3] 25 mcg (1,000 unit) capsule 25 mcg PO DAILY Fiber Therapy(psyl seed-sugar) Powder 1 tbsp PO DAILY albuterol sulfate 90 mcg/actuation HFA aerosol inhaler 2 inh INHALATION Q6H PRN (Reason: shortness of breath or wheezing) Patient Comments: INHALE 2 PUFFS BY MOUTH SIX TIMES DAILY NEEDED FOR SHORTNESS OF BREATH terbinafine HCl 250 mg tablet 250 mg PO DAILY Ensure Plus High Protein 0.08 gram-1.5 kcal/mL Liquid 120 ml PO DAILY acetaminophen 500 mg Tablet 1,000 mg PO Q8 Qty: 0 0RF ondansetron 4 mg tablet,disintegrating 4 mg PO Q8H PRN (Reason: nausea and vomiting) Qty: 20 0RF loperamide 2 mg Capsule 2 mg PO Q4H PRN PRN (Reason: DIARRHEA/LOOSE STOOLS) 14 Days Qty: 68 0RF amoxicillin-pot clavulanate 875-125 mg tablet 1 tab PO BID 12 Days Qty: 24 0RF Held aspirin 81 mg tablet,delayed release (DR/EC) 81 mg PO BID Hold Instructions: Resume on 05/24/23. Patient will be placed on Eliquis for the first 2 weeks postoperatively. After 2 weeks of Eliquis will begin aspirin 81 mg twice daily for an additional 2 weeks Other Ambulatory Orders: MRSA/SAID SCREEN (PRE SURG) (Routine) Timeframe: [id number] Facility: [facility] - Location: Laboratory Ordered By: Dr. Jorge Frances Referrals / Follow Up: Jorge Frances MD [Med Staff - Active Staff] - 05/25/23 1:45 pm (also another apt on 05/31/23 at 1:30 with doctor Juan Daniel) Raji Herrmann Chi, MD [Primary Care Provider] - Disposition Disposition (needs filled in before D/C Order can be placed): [facility]
--- NOTE | 2023-05-12 15:59 | DS.PCM_ITS ---
Providers Date of Admission: 05/10/23 Date of Discharge: 05/12/23 Primary Care Physician: Dr. Raji Herrmann MD Consultations 05/10/23 14:22 Consult: Infectious Disease Routine Consulting Provider: Jabier Forrester Reason for Consult: MANAGEMENT LEFT HIP ANTIBIOTICS EMERGENT Consult: No Notified: Yes Date Notified: 05/10/23 Time Notified: 16:37 Method of Notification: Text 05/10/23 14:24 Consult: Hospitalist Routine Consulting Provider: Dori Denson Reason for Consult: post op med management EMERGENT Consult: No Notified: Yes Date Notified: 05/10/23 Time Notified: 16:37 Method of Notification: Text 05/11/23 03:07 Consult: Onc/Wound/crab catcher Routine Comment: Reason for Consult:: WOUND VAC Reason For Visit: Left hip seroma Diagnosis Discharge Diagnosis (1) Seroma after procedure: Status: Acute (2) History of revision of total replacement of left hip joint: Status: Acute Code(s): Z96.642 - Presence of left artificial hip joint Plan: 1. S/P irrigation debridement complete synovectomy left hip with excision of deep sinus tract with hematoma/seroma evacuation, complex wound closure, placement of incisional wound VAC, aspiration left hip POD #2 2. Continue Pain Medications: Tylenol and oxycodone 3. DVT Prophylaxis: Patient will be placed on Eliquis 2.5 mg twice daily for 2 weeks followed by aspirin 81 mg twice daily for an additional 2 weeks. Patient does have past history of DVT. 4. PT/OT: Weightbearing as tolerated with walker. Continue with posterior hip dislocation precautions for 3 months postoperatively. 5. H & H: Currently 7.6/25.1, patient did have some lower blood pressure readings today and the most recent currently 109/58. Will plan to have transitional care unit continue to monitor patient's hemoglobin and hematocrit with postoperative acute on chronic anemia without any intra operative complications. Patient has been treated with ferrous sulfate preoperatively and we will continue with this postoperatively. We will continue to monitor with repeat lab work tomorrow. She did have 2 units packed red blood cells preoperatively at the transitional care unit. Case was discussed with medicine and they did order for 1 unit of packed red blood cells to be given today prior to discharge to the transitional care unit. 6. Reactive leukocytosis: Trending down and currently 16.4, Afebrile. Patient did receive Decadron intraoperatively. No clinical signs of infection. 7. Infectious disease consultation: Appreciate recommendations with regards to antibiotics. Microbiology has been reviewed and there is been no growth on Gram stain's and cultures. Infectious disease did add doxycycline and will continue with the Augmentin as well. Infectious disease will continue to monitor patient and cultures while at the transitional care unit. Case was discussed with infectious disease. 8. Incisional wound VAC: Plan will be for continuation of the incisional wound VAC as there was a complex closure. Portion of the incision was not able to be closed due to potential tension on the skin. This area will require healing t hrough secondary intention. Continue with wound VAC with changes 3 times weekly on Monday, Monday, and Monday. Continue the wound VAC while at the transitional care unit. Case was discussed with the wound nurse. 9. Drains: The deep drain was accidentally pulled this morning. The superficia l drain has remained in and there is only been 20 mL of output. This drain was removed today with Steri-Strips placed over incision site. OpSite dressing was then placed. 10. Continue postoperative medical management per medicine: Case was discussed with medicine and they are okay with discharge to the transitional care unit today after the transfusion of 1 unit of packed red blood cells. Patient's blood pressure has improved from this morning. 11. Encouraged Incentive Spirometry 12. Disposition: Patient appears to be doing well orthopedically. She has been working with physical therapy. They are recommending additional physical therapy. Patient did get approval through insurance to be discharged to the transitional care unit. Case was discussed with medicine in which they are okay with discharge from medical standpoint. She will be discharged after the transfusion of 1 unit packed red blood cells today. Case was also discussed with infectious disease and they will continue to monitor while in the transitional care unit. Also discussed case with wound nurse in which we will continue with dressing changes 3 times a week on Monday, Monday, and Monday. Patient will continue with above pain medications and DVT prophylaxis. She will continue on the ferrous sulfate for the acute on chronic anemia. Lab work order will be placed for tomorrow and they will continue to monitor her from an anemia standpoint. Patient will require 2-week follow-up with [facility]. The hospital will arrange this visit. At this time discharge order will be placed. Appreciate all consultations onto this patient and if there are any concerns or questions please contact orthopedics. I have reviewed the [place] Automated Rx Reporting System (OARRS) report for this patient for refill pattern and other prescriber involvement as part of the appropriate surveillance for the provision of acute and chronic controlled medications. The report was requested and reviewed on the date of this entry and was considered in the prescribing process. This dictation was created using voice recognition software. Phonetic and/or grammatical errors may exist. Medications at Discharge Home Medications pravastatin 40 mg tablet 40 mg PO QHS CHOLESTEROL 03/22/17 carbidopa 25 mg-levodopa 100 mg tablet 1 tab PO TID parkinsons 09/13/22 citalopram 40 mg tablet 20 mg PO DAILY DEPRESSION 09/13/22 levothyroxine 75 mcg tablet 75 mcg PO DAILY THYROID 09/13/22 olanzapine 7.5 mg tablet 7.5 mg PO QHS MOOD 09/13/22 omeprazole 40 mg capsule,delayed release 40 mg PO DAILY ACID REFLUX 09/13/22 potassium chloride 20 mEq tablet,extended release(part/cryst) 20 meq PO BID SUPPLEMENT 09/13/22 ferrous sulfate 325 mg (65 mg iron) tablet 325 mg PO DAILY supplimentation 11/24/22 albuterol sulfate 90 mcg/actuation aerosol inhaler 2 inh inhalation Q6H PRN shortness of breath or wheezing 03/22/23 cholecalciferol (vitamin D3) 25 mcg (1,000 unit) capsule (Vitamin D3) 25 mcg PO DAILY SUPPLEMENT 03/22/23 food supplemt, lactose-reduced 0.08 gram-1.5 kcal/mL oral liquid (Ensure Plus High Protein) 120 ml PO DAILY SUPPLEMENT 03/22/23 psyllium seed (sugar) oral powder (Fiber Therapy (psyllium seed-sucrose) oral powder) 1 tbsp PO DAILY SUPPLEMENT 03/22/23 terbinafine HCl 250 mg tablet 250 mg PO DAILY TOE FUNGUS 03/22/23 acetaminophen 500 mg tablet 1,000 mg (2 x 500 mg) PO Q8 pain #0 tabs 04/15/23 ondansetron 4 mg disintegrating tablet 4 mg PO Q8H PRN nausea and vomiting #20 tabs 04/15/23 aspirin 81 mg tablet,delayed release 81 mg PO BID heart health 04/29/23 amoxicillin 875 mg-potassium clavulanate 125 mg tablet 1 tab PO BID antibiotic 12 days #24 tabs 05/03/23 loperamide 2 mg capsule 2 mg PO Q4H PRN PRN DIARRHEA/LOOSE STOOLS 14 days #68 caps 05/03/23 ursodiol 250 mg tablet 250 mg PO BID URINATION #60 tabs 05/05/23 apixaban 5 mg tablet (Eliquis) 2.5 mg (1/2 x 5 mg) PO BID #0 tabs 05/12/23 doxycycline monohydrate 100 mg capsule 100 mg PO BID #0 caps 05/12/23 oxycodone 5 mg tablet 2.5 mg (1/2 x 5 mg) PO Q4H PRN PRN Pain Score 4-10 7 days #20 tabs 05/12/23 sennosides 8.6 mg-docusate sodium 50 mg tablet (Stool Softener-Stimulant Laxative) 2 tab PO BID #0 tabs 05/12/23 Hospital Course Operations - (Irrigation debridement complete synovectomy left hip with excision of deep sinus tract with hematoma/seroma evacuation, complex wound closure, placement of incisional wound VAC, aspiration left hip) Procedures Blood transfusion and Wound vac placement Summary of Care Provided Hospital Course: Patient is a 72-year-old female who had previous left hip intertrochanteric hip fracture in August 2022. A left hip cephalomedullary nail was performed on September 14, [address] Jorge Frances. Following that surgery patient underwent an irrigation debridement of the left hip with removal of the nail and placement of temporary antibiotic spacer by Dr. Martin at outside facility on October 11, 2022. At that time CT scan showed fluid collection and possible abscess. Previous documentation did not reveal any bacterial growth on cultures. She finished antibiotics on November 23, 2022. She was placed on vancomycin which did cause acute kidney infarct versus interstitial nephritis. She had to undergo dialysis at that time. Patient then underwent recent conversion from previous left hip surgery to a left hip hemiarthroplasty posterior approach by Jorge Frances on April 12, 2023. Postoperatively she was discharged home with home health. While at home she was having issues with her left hip and was taken to the emergency room at [facility] on April 29, 2023. She was then admitted and discharged to the transitional care unit at [facility]. There was concern at that time for left hip joint infection as she has had erythema and some wound dehiscence over the apex of the incision proximally. She showed up to our office at [facility]. MRI was reviewed which did reveal large collection of fluid with possible seroma versus inflammatory pseudotumor. Patient did have recent lab work at that time in which her hemoglobin was 8.5. The ESR was 18 and CRP 51. She did receive 2 units of packed red blood cells prior to the recent surgery while in the transitional care unit for chronic anemia. She has been on ferrous sulfate.. After failing conservative measures, the patient opted to proceed with a irrigation debridement complete synovectomy left hip with excisi on of deep sinus tract with hematoma/seroma evacuation, complex wound closure, placement of incisional wound VAC, aspiration left hip. The patient underwent the above-stated procedure on May 10, 2022. Patient did receive perioperative antibiotics. Intraoperatively was uneventful. For details please see dictated operative note. The patient was placed in thigh-high teds, bilateral SCDs, remained stable in recovery. Patient was admitted to the 3rd floor at [facility]. The patient's pain was managed with the use of IV and p.o. pain medications. Patient participated in physical therapy. Patient did have consultations with medicine, infectious disease, and wound nurse. Patient had incisional wound VAC in which there will be changes 3 times weekly on Monday, Monday, and Monday. She did have 2 Hemovac drains however one of the drains got accidentally pulled while on the medical surgical floor. The second Hemovac drain was removed by orthopedics. Infectious disease was also consulted in which she will continue with the Augmentin and doxycycline. Infectious disease will continue to monitor patient while at the transitional care unit. Medicine was on board and patient did require 1 unit packed red blood cells prior to discharge to the transitional care unit. Patient was medically stable and given medical clearance for discharge today on May 12, 2023. Patient was discharged on postoperative day # 2 to transitional care unit at [facility]. Patient was given medications stated below. Patient will continue with Eliquis 2.5 mg twice daily for the first 2 weeks postoperatively for DVT prophylaxis. After 2 weeks she will stop the Eliquis and then begin aspirin 81 mg twice daily for an additional 2 weeks. Patient does have past history of upper extremity DVT. She will continue with Tylenol and oxycodone for breakthrough pain. Patient will follow up with [facility] per postop instructions for reassessment. Physical Exam Narrative Vital signs stable and afebrile. Patient's most recent blood pressure 109/58, afebrile. Pulse of 99. Breathing on room air at 97% O2 saturation SCDs and BIENVENIDO hose are in place bilaterally Patient is able to plantarflex and dorsiflex actively. Sensation is intact to light touch to saphenous, sural, superficial and deep peroneal, and tibial distribution. Incisional wound VAC in place with no surrounding erythema. 1 Hemovac drain is remaining in which the superficial drain had 20 mL of output. Hemovac drain was removed today and Steri-Strips with dressing was placed. Patient tolerated the procedure very well. Negative Homans bilaterally, negative signs and symptoms of DVT. Const alert, oriented x3 and no apparent distress Weight / BMI Weight Weight: 83.915 kg Body Mass Index (BMI) 31.7 ABG / Lab / Microbiology Data 05/12/23 04:45 05/12/23 04:45 Laboratory: Laboratory Results - last 24 hr 05/10/23 12:26: Miscellaneous Cytology SEE PATHOLOGY REPORT 05/12/23 04:45: WBC 16.4 H, RBC 2.58 L, Hgb 7.6 L, Hct 25.1 L, MCV 97.3, MCH 29.5, MCHC 30.3 L, RDW Std Deviation 58.7 H, RDW Coeff of Edwar 16.4 H, Plt Count 227, MPV 10.9, Sodium 142, Potassium 3.8, Chloride 109 H, Carbon Dioxide 28.0, Anion Gap 5, BUN 8, Creatinine 0.67, Estim Creat Clear Calc 40.83, Est GFR (MDRD) Af Amer 111, Est GFR (MDRD) Non-Af 92, BUN/Creatinine Ratio 12.0, Glucose 92, Calcium 8.2 L 05/12/23 12:55: Blood Type O POSITIVE, Antibody Screen NEGATIVE, Crossmatch See Detail Microbiology: Microbiology 05/10/23 12:26 Incision/Surgical Site Gram Stain - Final 05/10/23 12:26 Incision/Surgical Site Wound Culture - Preliminary No growth-Final to follow 05/10/23 12:26 Incision/Surgical Site Anaerobic Culture - Preliminary No growth in 48 hours. 05/10/23 13:19 Tissue - Hip Femoral Membrane Gram Stain - Final 05/10/23 13:19 Tissue - Hip Femoral Membrane Wound Culture - Preliminary 05/10/23 13:19 Tissue - Hip Femoral Membrane Anaerobic Culture - Preliminary Checking for anaerobes, further studies to follow. 05/10/23 13:19 Tissue - Hip Gram Stain - Final 05/10/23 13:19 Tissue - Hip Wound Culture - Preliminary No growth-Final to follow 05/10/23 13:19 Tissue - Hip Anaerobic Culture - Preliminary No growth in 48 hours. 05/10/23 13:19 Tissue - Hip Gram Stain - Final 05/10/23 13:19 Tissue - Hip Wound Culture - Preliminary No growth-Final to follow 05/10/23 13:19 Tissue - Hip Anaerobic Culture - Preliminary No growth in 48 hours. D/C Instructions Discharge Diet: No restrictions Discharge Activity: May Not Shower (While wound VAC in place) May shower in (days): 1 (only if incision is dry and without drainage. Do NOT soak/submerge in tub/pool/vazquez/stream/hot tub.)) Ice area for (Minutes): 20 (Every 1-2 hours [address] barrier between ice and skin.) Weight Bearing Status: Weight bearing as tolerated (With walker) Keep extremity elevated above heart level: Operative Extremity Additional Activity Instructions: Follow [facility] Post-op Instructions. Wear elastic stockings for 2 weeks. Do NOT use alcohol with narcotic pain medication. Do NOT make important decisions while taking narcotic medication. If you have problems with taking your medication (rash, itching, nausea, etc.) call the office at once. Call your doctor if your incision/area has: Continuous Slow Oozing, Sudden In creased Bleeding, Increased Pain/ Swelling, Increased Redness and Foul Smelling Discharge Call your doctor if you observe: Fever of 101 or Higher, Shortness of breath, Chest pain, Calf discomfort and Uncontrolled pain Meaningful Use Info Meaningful Use Diagnoses (Choose all that apply): None applicable Discharge Plan Admission Admit Date/Time: 05/10/23 09:09 Attending Provider: Jorge Frances Primary Care Provider: Raji Herrmann Chi Consulting Providers: Dori Denson; Jabier Forrester Discharge Orders/Prescriptions Prescriptions: New Eliquis 5 mg Tablet 2.5 mg PO BID Qty: 0 0RF Rx Instructions: Eliquis 2.5 mg twice daily for 2 weeks postoperatively for DVT prophylaxis. doxycycline monohydrate 100 mg Capsule 100 mg PO BID Qty: 0 0RF oxycodone 5 mg Tablet 2.5 mg PO Q4H PRN PRN (Reason: Pain Score 4-10) 7 Days Qty: 20 0RF sennosides-docusate sodium [Stool Softener-Stimulant Laxat] 8.6-50 mg Tablet 2 tab PO BID Qty: 0 0RF Rx Instructions: Take until first bowel movement, then as needed Continued ursodiol 250 mg tablet 250 mg PO BID Qty: 60 2RF pravastatin 40 MG tablet 40 mg PO QHS citalopram 40 mg tablet 20 mg PO DAILY Patient Comments: confirmed with daughter pt is taking 20 mg. olanzapine 7.5 mg tablet 7.5 mg PO QHS potassium chloride 20 mEq tablet,ER particles/crystals 20 meq PO BID levothyroxine 75 mcg tablet 75 mcg PO DAILY carbidopa-levodopa 25-100 mg tablet 1 tab PO TID omeprazole 40 mg capsule,delayed release(DR/EC) 40 mg PO DAILY ferrous sulfate 325 mg (65 mg iron) tablet 325 mg PO DAILY Patient Comments: Take 1 tablet by mouth every morning cholecalciferol (vitamin D3) [Vitamin D3] 25 mcg (1,000 unit) capsule 25 mcg PO DAILY Fiber Therapy(psyl seed-sugar) Powder 1 tbsp PO DAILY albuterol sulfate 90 mcg/actuation HFA aerosol inhaler 2 inh INHALATION Q6H PRN (Reason: shortness of breath or wheezing) Patient Comments: INHALE 2 PUFFS BY MOUTH SIX TIMES DAILY NEEDED FOR SHORTNESS OF BREATH terbinafine HCl 250 mg tablet 250 mg PO DAILY Ensure Plus High Protein 0.08 gram-1.5 kcal/mL Liquid 120 ml PO DAILY acetaminophen 500 mg Tablet 1,000 mg PO Q8 Qty: 0 0RF ondansetron 4 mg tablet,disintegrating 4 mg PO Q8H PRN (Reason: nausea and vomiting) Qty: 20 0RF loperamide 2 mg Capsule 2 mg PO Q4H PRN PRN (Reason: DIARRHEA/LOOSE STOOLS) 14 Days Qty: 68 0RF amoxicillin-pot clavulanate 875-125 mg tablet 1 tab PO BID 12 Days Qty: 24 0RF Held aspirin 81 mg tablet,delayed release (DR/EC) 81 mg PO BID Hold Instructions: Resume on 05/24/23. Patient will be placed on Eliquis for the first 2 weeks postoperatively. After 2 weeks of Eliquis will begin aspirin 81 mg twice daily for an additional 2 weeks Other Ambulatory Orders: MRSA/SAID SCREEN (PRE SURG) (Routine) Timeframe: [id number] Facility: [facility] - Location: Laboratory Ordered By: Dr. Jorge Frances Referrals / Follow Up: Jorge Frances MD [Med Staff - Active Staff] - 05/25/23 1:45 pm (also another a pt on 05/31/23 at 1:30 with doctor Juan Daniel) Raji Herrmann Chi, MD [Primary Care Provider] - Disposition Disposition (needs filled in before D/C Order can be placed): [facility] Facility
--- NOTE | 2023-05-12 16:37 | CASEMGMT ---
Discharge Planning Signed med list, scripts, discharge orders/instructions faxed to [facility]. Domenica Santos, Discharge Planning Asst.
--- NOTE | 2023-05-12 16:55 | CASEMGMT ---
Social Work Pt and spouse requesting pt complete HCPOA and Living will. Documents completed but BATOOL Barraza. Pt naming her spouse Yonny Hale as decision maker. JES Foreman
== END 2023-05-12 20:52 | disposition skilled nursing facility (03) | DRG 908 ==
LOC: ACINP 09:12 → MS3 15:30
PROVIDERS: Admitting Provider Specialist; PCP Family Medicine Geriatric Medicine; Referring Provider Specialist; Visit Provider Specialist
PROC: 0SPS0JZ Removal of Synthetic Substitute from Left Hip Joint, Femoral Surface, Open Approach (ICD-10-PCS; CPT 27134; principal; 2023-05-10 10:50)
DX: M96.842 Postprocedural seroma of a musculoskeletal structure following a musculoskeletal system procedure (principal); D62 Acute posthemorrhagic anemia; L76.32 Postprocedural hematoma of skin and subcutaneous tissue following other procedure; G20.C Parkinsonism, unspecified; E03.9 Hypothyroidism, unspecified; F32.A Depression, unspecified; I10 Essential (primary) hypertension; M96.841 Postprocedural hematoma of a musculoskeletal structure following other procedure; M96.843 Postprocedural seroma of a musculoskeletal structure following other procedure; E55.9 Vitamin D deficiency, unspecified; S70.02XA Contusion of left hip, initial encounter; M19.90 Unspecified osteoarthritis, unspecified site; G62.9 Polyneuropathy, unspecified; E78.5 Hyperlipidemia, unspecified; E87.6 Hypokalemia; M25.552 Pain in left hip; K22.70 Barrett's esophagus without dysplasia; E66.9 Obesity, unspecified; Z68.32 Body mass index [BMI] 32.0-32.9, adult; Z79.82 Long term (current) use of aspirin; Z79.01 Long term (current) use of anticoagulants; Z96.642 Presence of left artificial hip joint; Z86.718 Personal history of other venous thrombosis and embolism
CPT/HCPCS: 36415; 36430; 73502; 73721; 80048; 82962; 85027; 86850; 86900; 86901; 86920; 86922; 87015; 87070; 87075; 87077; 87102; 87116; 87176; 87186; 87205; 87206; 88108; 88305; 88313; 89050; 94668; 97162; 97166; 97530; 97535; 99252; C1776; J7040; J7050; J7120; P9016; A4216; G0463; J1940; J2405; J2916; J3475

== ENCOUNTER 2023-05-12 21:53 | Inpatient (IN) | payer MEDICARE, SELFPAY ==
--- NOTE | 2023-05-12 21:58 | HP.PCM_ITS ---
HPI - General General Date of Admission: 05/12/23 Date of Service: 05/12/23 Chief Complaint: Here for rehabilitation. HPI Narrative DANDRE PERAZA, is a 72 Female who presents with following: TCU resident with superficial left hip infection. MRI left hip showed large seroma/hematoma/abscess. 05/10/2023 Dr. Frances performed left hip hematoma/seroma evaucation. Complex wound closure with wound VAC. Revision left hip replacement, femoral component. 05/11/2023 Hemoglobin 8.1, transfused 2 units PRBC preoperatively. Eliquis 2.5mg bid x 2 weeks, then aspirin 81mg bid x 2 weeks DVT prophylaxis. WBAT with walker. 05/11/2023 Vomited gastric content. 05/11/2023 Dr. Forrester recommended 14 days Augmentin, Doxycycline. Cultures pending. 05/12/2023 Transfuse 1 unit PRBC. 05/12/2023 Admit to TCU with debility, here for rehabilitation, strengthening, prior to discharge home with spouse. [facility] Medical History Acute diarrhea Anxiety and depression Arthritis Cataracts, bilateral CHI (closed head injury) Chronic anemia GERD (gastroesophageal reflux disease) Hemorrhoids High cholesterol History of DIC syndrome History of renal disease History of revision of total replacement of left hip joint Hypothyroidism IBS (irritable bowel syndrome) Lives in [facility]pc Non-smoker Obesity (BMI 30.0-34.9) Osteoarthritis Parkinson disease PICC (peripherally inserted central catheter) in place Pressure ulcer Rheumatoid arthritis Schizophrenia Sleep apnea Ulcerative colitis Uses wheelchair Wears dentures Wears glasses Home Medications pravastatin 40 mg tablet 40 mg PO QHS CHOLESTEROL 03/22/17 [History Last Taken 05/11/23] carbidopa 25 mg-levodopa 100 mg tablet 1 tab PO TID parkinsons 09/13/22 [History Last Taken 05/12/23] citalopram 40 mg tablet 20 mg PO DAILY DEPRESSION 09/13/22 [History Last Taken 05/12/23] levothyroxine 75 mcg tablet 75 mcg PO DAILY THYROID 09/13/22 [History Last Taken 04/12/23] olanzapine 7.5 mg tablet 7.5 mg PO QHS MOOD 09/13/22 [History Last Taken 05/11/23] omeprazole 40 mg capsule,delayed release 40 mg PO DAILY ACID REFLUX 09/13/22 [History Last Taken 04/12/23] potassium chloride 20 mEq tablet,extended release(part/cryst) 20 meq PO BID SUPPLEMENT 09/13/22 [History Last Taken 05/12/23] ferrous sulfate 325 mg (65 mg iron) tablet 325 mg PO DAILY supplimentation 11/24/22 [History Last Taken 05/12/23] albuterol sulfate 90 mcg/actuation aerosol inhaler 2 inh inhalation Q6H PRN shortness of breath or wheezing 03/22/23 [History Last Taken 04/11/23] cholecalciferol (vitamin D3) 25 mcg (1,000 unit) capsule (Vitamin D3) 25 mcg PO DAILY SUPPLEMENT 03/22/23 [History Last Taken 05/12/23] food supplemt, lactose-reduced 0.08 gram-1.5 kcal/mL oral liquid (Ensure Plus High Protein) 120 ml PO DAILY SUPPLEMENT 03/22/23 [History Last Taken 04/11/23] psyllium seed (sugar) oral powder (Fiber Therapy (psyllium seed-sucrose) oral powder) 1 tbsp PO DAILY SUPPLEMENT 03/22/23 [History Last Taken 05/11/23] terbinafine HCl 250 mg tablet 250 mg PO DAILY TOE FUNGUS 03/22/23 [History Last Taken 05/12/23] acetaminophen 500 mg tablet 1,000 mg (2 x 500 mg) PO Q8 pain #0 tabs 04/15/23 [Rx Last Taken 05/12/23] ondansetron 4 mg disintegrating tablet 4 mg PO Q8H PRN nausea and vomiting #20 tabs 04/15/23 [Rx Last Taken Unknown] aspirin 81 mg tablet,delayed release 81 mg PO BID heart health 04/29/23 [History Last Taken 05/03/23] amoxicillin 875 mg-potassium clavulanate 125 mg tablet 1 tab PO BID antibiotic 12 days #24 tabs 05/03/23 [Rx Last Taken 05/12/23] loperamide 2 mg capsule 2 mg PO Q4H PRN PRN DIARRHEA/LOOSE STOOLS 14 days #68 caps 05/03/23 [Rx Last Taken Unknown] ursodiol 250 mg tablet 250 mg PO BID URINATION #60 tabs 05/05/23 [Rx Last Taken Unknown] apixaban 5 mg tablet (Eliquis) 2.5 mg (1/2 x 5 mg) PO BID DVT prophylaxis #0 tabs 05/12/23 [Rx Last Taken 05/12/23] doxycycline monohydrate 100 mg capsule 100 mg PO BID antibitoic #0 caps 05/12/23 [Rx Last Taken 05/12/23] oxycodone 5 mg tablet 2.5 mg (1/2 x 5 mg) PO Q4H PRN PRN Pain Score 4-10 7 days #20 tabs 05/12/23 [Rx Last Taken 05/12/23] sennosides 8.6 mg-docusate sodium 50 mg tablet (Stool Softener-Stimulant Laxative) 2 tab PO BID stool softener #0 tabs 05/12/23 [Rx Last Taken 05/11/23] Allergy/AdvReac Type Severity Reaction Status Date / Time linaclotide [From Linzess] Allergy Mild chest Verified 05/10/23 09:17 tightness histamine phosphate Allergy Unknown Verified 05/10/23 09:17 [From Histatrol] Family History Mother Heart disease Father Heart disease Brother Heart disease Surgical History H/O colonoscopy with polypectomy History of hemiarthroplasty of left hip History of hip surgery History of knee replacement History of tonsillectomy and adenoidectomy History of tubal ligation Hx of surgical procedure Hx of total hip arthroplasty Social History household members: spouse Smoking Status: Never smoker alcohol intake: never substance use type: does not use what type of physical activity do you participate in: walking frequency: 1-2 times per week ROS Constitutional Constitutional: Denies chills, fever(s) or weight gain ENT HEENT: Denies headache(s), nasal congestion or nasal discharge Cardiovascular Cardiovascular: Denies chest pain or palpitations Respiratory/Chest Respiratory/Chest: Denies cough, excessive phlegm production or shortness of breath with exertion Gastrointestinal Gastrointestinal: Denies abdominal pain, nausea or vomiting Genitourinary Genitourinary: Denies dysuria Musculoskeletal Musculoskeletal: Denies joint pain or joint swelling Integumentary Integumentary: Denies rash or wounds Neurologic Neurologic: Denies focal weakness, numbness or tingling Psychiatric Psychiatric: Denies anxiety, auditory hallucinations, depression, homicidal ideation or suicidal ideation Physical Exam Const alert General Appearance: cooperative HEENT normocephalic Eyes PERRL and EOMs intact bilaterally Neck supple, no JVD and no carotid bruits Resp normal respiratory effort, normal air movement and clear to auscultation bilaterally Cardio regular rate and regular rhythm GI normal to inspection, nondistended, normoactive bowel sounds, non-tender and non-distended Extremity normal capillary refill Extremity Narrative: Left hip wound VAC, drain. General Extremity: Negative for edema Skin no rashes or lesions noted General Skin Exam: no breakdown Psych affect normal Appearance: appropriate Assessment & Plan Assessment/Plan (1) Debility: (2) Seroma after procedure: (3) History of revision of total replacement of left hip joint: (4) Parkinson disease: (5) Depression: (6) Vitamin D deficiency: (7) Iron deficiency anemia: (8) Hypothyroidism: QUALIFIERS: Hypothyroidism type: unspecified Qualified Code(s): E03.9 - Hypothyroidism, unspecified (9) Schizophrenia: QUALIFIERS: Schizophrenia type: unspecified Qualified Code(s): F20.9 - Schizophrenia, unspecified (10) Hypokalemia: (11) Hyperlipidemia: PLAN: Plan 72 year old female with below past medical history hospitalized for left hip hematoma/seroma evacuation, complex wound closure with wound VAC, revision left hip replacement femoral component 05/10/[address] Frances, admitted to TCU with debility, here for rehabilitation, strengthening, prior to discharge home with . * Debility - PT/OT. * Pain - Tylenol 1000mg q8, Oxycodone 2.5mg q4 prn pain (4-10). * Bowel - senna/colace 2 tablets bid, Loperamide 2mg q4h prn. * Adult immunization - Administer pneumonia vaccine, covid vaccine, flu vaccine as appropriate. * DVT prophylaxis - Eliquis 2.5mg bid thru 05/26/2023. * Shortness of breath - Albutrol 2 puffs q6h prn. * Parkinson Disease - Sinemet 25/100mg tid. * Vitamin D deficiency - D3 25mcg daily. * Depression - Citalopram 20mg daily, stable chronic skilled nursing use, GDR not recommended. * Left hip infection status post irrigation/debridement - Augmentin 875mg bid, Doxycycline 100mg bid thru 05/26/2023. * Nutrition - Ensure Plus 120ml daily. * Iron deficiency anemia - Ferrous sulfate 325mg daily. * Hypothyroidism - Levothyroxine 75mcg daily. 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 * Nausea - Zofran 4mg q8h prn. * GERD - Pantoprazole 04mg daily. * Hypokalemia - KCL 20meq bid. * Hyperlipidemia - Pravastatin 40mg qhs. * Fatty liver - Ursodiol 250mg bid.
--- OUTSIDE RECORDS SUMMARY | 2023-05-12 22:01 | XMS RPT_ITS | CCD ---
Author Name Unknown Address [address] [place] [address] Organization [facility] Care Team Providers Care Chief Power Dispatcher Name Role Phone Heather Dialfátima Muro Unavailable Dial, Tamara N Unavailable Nae Pan Unavailable [phone] Dial, Tamara N Unavailable Unavailable Primary Care Provider UnavailSANDIP Montoya Admitting Unavailable KAN SANCHEZ Attending Unavailable CICI ORELLANA Consulting Unavailable Raji Herrmann Chi Primary Care Provider Allergies Allergy Classification Reported Allergen(s) Allergy Type Date of Onset Reaction(s) Facility (4 sources) Cetirizine; Translations: [CETIRIZINE HCL] Drug Allergy 5 Shortness of Breath [facility] Work Phone: (3 sources) HISMANOL [Other] Propensity to adverse reactions 5 Shortness of Breath [facility] Work Phone: (3 sources) PROPANOLOL [Other] Propensity to adverse reactions 5 Shortness of Breath [facility] Work Phone: (1 source) OTHER; Translations: [OTHER] Propensity to adverse reactions (disorder) 5 [facility] Repository Medications Completed/Discontinued Medications Medication Drug Class(es) Dates Sig (Normalized) Sig (Original) [id number] 200 actuat albuterol 0.09 mg/actuat metered dose [...] joint; Translations: [Prosthetic hip infection, initial encounter ([facility])] Onset: 10-09-2022 Chronic Other injuries and conditions [...] 15:04-0400 Body temperature 97.5 [degF] Fidencio Huggins ELECTROSTATIC PAINT OPERATOR.SPRAY PAINTER HELPER Work Phone: [facility] 01-30-2022 15:04-0400 Body weight 83.92 kg Fidencio Huggins ELECTROSTATIC PAINT OPERATOR.SPRAY PAINTER HELPER Work Phone: [facility] 01-30-2022 15:04-0400 Diastolic blood pressure 88 mm[Hg] Fidencio Huggins ELECTROSTATIC PAINT OPERATOR.SPRAY PAINTER HELPER Work Phone: [facility] 01-30-2022 15:04-0400 Heart rate 85 /min Fidencio Huggins ELECTROSTATIC PAINT OPERATOR.SPRAY PAINTER HELPER Work Phone: [facility] 01-30-2022 15:04-0400 Respiratory rate 18 /min Fidencio Huggins ELECTROSTATIC PAINT OPERATOR.SPRAY PAINTER HELPER Work Phone: [facility] 01-30-2022 15:04-0400 SaO2% (BldA) [Mass fraction] 97 % Fidencio Huggins ELECTROSTATIC PAINT OPERATOR.SPRAY PAINTER HELPER Work Phone: [facility] 01-30-2022 15:04-0400 Systolic blood pressure 126 mm[Hg] Fidencio Huggins ELECTROSTATIC PAINT OPERATOR.SPRAY PAINTER HELPER Work Phone: [facility] 10-06-2015 14:40-0400 BMI (Body Mass Index) 29.23 kg/m2 [facility] Work Phone: 10-06-2015 14:40-0400 Height 160.02 cm [facility] Work Phone: 10-06-2015 14:40-0400 Weight 74.84 kg [facility] Work Phone: Encounters Encounter Date Encounter Type Care Provider Facility Start: 12-06-2022 ambulatory Maude SMITH SE PHILOSOPHY LECTURER Procedures Date Procedure Procedure Detail Performing Clinician Start: 10-16-2022 Electrocardiogram ZEINAB MAJANO Start: 10-10-2022 Antibody screen SANDIP MAJANO Plan of Treatment Date Care Activity Detail Author Start: 10-21-2025 DIABETES SCREEN DIABETES SCREEN [facility] Start: 03-18-2024 LIPID SCREEN LIPID SCREEN [facility] Start: 01-20-2023 Influenza vaccination INFLUENZA (#1) [facility] Start: 05-22-2022 ADVANCE DIRECTIVE DISCUSSION ADVANCE DIRECTIVE DISCUSSION [facility] Start: 03-18-2022 DIABETES SCREEN DIABETES SCREEN [facility] Start: 01-20-2022 Influenza vaccination INFLUENZA (#1) [facility] Start: 01-07-2022 COVID-19 VACCINE (5 - Booster for Moderna series) COVID-19 VACCINE (5 - Booster for Moderna series) [facility] Start: 11-02-2021 COVID-19 VACCINE (5 - Booster for Moderna series) COVID-19 VACCINE (5 - Booster for Moderna series) [facility] Start: 05-22-2021 ADVANCE DIRECTIVE DISCUSSION ADVANCE DIRECTIVE DISCUSSION [facility] Start: 10-06-2020 ANNUAL PCP TEAM CHRONIC DISEASE VISIT ANNUAL PCP TEAM CHRONIC DISEASE VISIT [facility] Start: 06-01-2019 Mammography MAMMOGRAM [facility] Start: 04-12-2017 End: 04-12-2017 Occupational Therapy General Occupational Therapy General Rehab [facility], [address] [place] [address], [id number] [facility] Work Phone: Start: 04-11-2017 End: 04-11-2017 Appointment Appointment [facility] Work Phone: Start: 03-29-2017 End: 03-29-2017 Appointment Appointment [facility] Work Phone: Start: 03-09-2017 End: 03-09-2017 Appointment Appointment [facility] Work Phone: Start: 06-01-2016 End: 06-01-2016 Occupational Therapy General Occupational Therapy [facility], [address] [place] [address], [address] [facility] Work Phone: Start: 10-28-2015 Colonoscopy COLONOSCOPY [facility] Start: 10-28-2015 COLORECTAL CANCER SCREENING COLORECTAL CANCER SCREENING [facility] Start: 10-07-2015 End: 10-07-2015 Occupational Therapy General Occupational Therapy [facility], [address] [place] [address], [id number] [facility] Work Phone: Start: 06-21-2015 Urine microalbumin profile DTAP,TDAP,TD (3 - Td or Tdap) [facility] Start: 03-22-2014 PNEUMOCOCCAL: 65+ (2 - PCV) PNEUMOCOCCAL: 65+ (2 - PCV) [facility] Start: 1993 COLOGUARD (FIT-DNA) COLOGUARD (FIT-DNA) [facility] Start: [address] COLONOGRAPHY [facility] Start: 1993 FECAL OCCULT BLOOD FECAL OCCULT BLOOD [facility] Start: 1993 SIGMOIDOSCOPY SIGMOIDOSCOPY [facility] Start: 1966 BP CONTROLLED (<130/80) BP CONTROLLED (<130/80) [facility] Start: 1966 HEPATITIS C SCREENING HEPATITIS C SCREENING [facility] Patient Education TRIGGER%20FINGER [facility] Work Phone: Immunizations Immunization Date Immunization Notes Care Provider Deyvi bowden 03-06-2019 influenza, high dose seasonal, preservative-free Fidencio Pendlebury ELECTROSTATIC PAINT OPERATOR.SPRAY PAINTER HELPER Work Phone: [facility] 03-06-2019 Seasonal, quadrivale nt, recombinant, injectable influenza vaccine, preservative free Fidencio Pendlebury ELECTROSTATIC PAINT OPERATOR.SPRAY PAINTER HELPER Work Phone: [facility] 03-10-2018 zoster vaccine recombinant Fidencio Pendhoney ELECTROSTATIC PAINT OPERATOR.SPRAY PAINTER HELPER Work Phone: [facility] 02-19-2018 influenza, seasonal, injectable, preservative free Fidencio Pendlebury ELECTROSTATIC PAINT OPERATOR.SPRAY PAINTER HELPER Work Phone: [facility] 12-19-2017 zoster vaccine recombinant Fidencio Fonghoney ELECTROSTATIC PAINT OPERATOR.SPRAY PAINTER HELPER Work Phone: [facility] 03-22-2013 pneumococcal polysaccharide vaccine, 23 valent Fidencio Huggins ELECTROSTATIC PAINT OPERATOR.SPRAY PAINTER HELPER Work Phone: [facility] 05-11-2009 novel influenza-H1N1 -09, preservative-free, injectable Fidencio Huggins ELECTROSTATIC PAINT OPERATOR.SPRAY PAINTER HELPER Work Phone: [facility] 03-05-2006 influenza virus vacc ine, whole virus Fidencioleryo Huggins ELECTROSTATIC PAINT OPERATOR.SPRAY PAINTER HELPER Work Phone: [facility] Work Phone: 06-21-2005 tetanus toxoid, redu elana diphtheria toxoid, and acellular pertussis vaccine, adsorbed Fidencioleroy Fonghoney ELECTROSTATIC PAINT OPERATOR.SPRAY PAINTER HELPER Work Phone: [facility] Work Phone: 05-22-1995 diphtheria and tetan us toxoids, adsorbed for pediatric use Fidencio Bhavna ELECTROSTATIC PAINT OPERATOR.SPRAY PAINTER HELPER Work Phone: [facility] Work Phone: Payers Date Payer Category Payer Medicare [id number] 2021 Medicare [id number] Social History Date Type Detail Facility Tobacco smoking status NHIS Never smoked tobacco [facility] Work Phone: Start: 01-30-2022 End: 10-11-2022 Alcohol intake Current non-drinker of alcohol (finding) [facility] Start: 1950 Sex Assigned At Not on file C [facility] Start: 10-10-2022 End: 10-11-2022 [facility] Work Phone: Start: 10-10-2022 End: 10-11-2022 Tobacco use panel [facility] Work Phone: How hard is it for y ou to pay for the very basics like food, housing, medical care, and heating Not very hard [facility] Work Phone: (I/We) worried wheth er (my/our) food would run out before (I/we) got money to buy more. Never true [facility] Work Phone: In the past 12 month s, has lack of transportation kept you from medical appointments or from getting medications? No [facility] Work Phone: In the past 12 month s, was there a time when you were not able to pay the mortgage or rent on time? No [facility] Work Phone: Medical Equipment Procedure Code Equipment Code Equipment Origin al Text Equipment Identifier Dates Kit Stimulan Rap id Cure Calcium Sulfate Bone Graft Kit Paste Bead 10cc 25cc - [id number] FDA Start: 10-11-2022 Set Split Cath I ii 14fr 18ga Straight Triniflex 28cm Catheter Basic - [id number] Start: 10-20-2022 Cement Refobacin Bone Sterile Latex Free Disposable - [id number] Start: 10-11-2022 [place] Imp Hip Fem Prstlc Lt [id number] Start: 10-11-2022 Head Praveena 43 mm Ball Unipolar Modular Orthocentric Design Hip Femur - [id number] Start: 10-11-2022 Clinical Notes 02-08-2005 to [...] have any questions, you can call Nurse transportation agent back. documented in this encounter [facility] 10-21-2022 Note HNO ID: [id number] Author: Georgina Ochoa RN Service: ? Author Type: Registered Nurse Type: Progress Notes Filed: 10/21/2022 1:29 PM Note Text: Treatment initiated with lines in reverse. 2000mL removed, 1.5L net [facility] 10-21-2022 [facility] [...] [facility] 10-17-2022 Note HNO ID: [id number] Author: Carmen Rich RN Service: ? Author Type: Registered Nurse Type: Nursing Progress Note Filed: 10/17/2022 9:59 AM Note Text: Dr Golden aware of elevated bp and sepsis advisory flag. [facility] 10-16-2022 Note [facility] 10-16-2022 [facility] 10-16-2022 [facility] 10-15-2022 [facility] 10-15-2022 [facility] 10-14-2022 [facility] 10-14-2022 Note HNO ID: [id number] Author: Georgina Ochoa RN Service: ? Author Type: Registered Nurse Type: Progress Notes Filed: 10/14/2022 1:54 PM Note Text: Treatment initiated without difficulty. 1500mL removed, 1L net [facility] 10-14-2022 Note [facility]-13[facility]22 [facility] 10-12-2022 [facility]12[facility] 10-12-2022 [facility] 10-11-2022 [facility] 10[facility]11-[facility]22 [facility] 10-11-2022 [facility] 10-11-[facility]22 [facility] 10-11[facility]2022 [facility] 10-10-2022 [facility] 10-10-2022 [facility] 10-10-2022 Note HNO ID: [id number] Author: Joanne Chavez RN Service: ? Author Type: Registered Nurse Type: Nursing Progress Note Filed: 10/10/2022 12:14 AM Note Text: This nurse receives report and resumes patient care at this time. [facility] 01-31-2022 Note HNO ID: [id number] Author: RT Henna(R) Service: Radiology Author Type: [...] RT Henna(R) January 31, 2022 8:[address] [facility] 01-31-2022 Miscellaneous Notes Patient given results and verbalized understanding of instructions given. Seema Novak No abnormal findings noted on x-ray. Continue supportive therapies as discussed. Follow-up with PCP if symptoms or not improving. Fidencio Huggins APRN.CNP documented in this encounter [facility] 01-30-2022 Note HNO ID: [id number] Author: Fidencoi Huggins APRN.CNP Service: ? Author Type: Nurse [...] (hypertension) Hyperlipidemia Hypothyroidism Macular degeneration optho in [place] Obesity (BMI 30.0-34.9) Osteopenia Personal history of [...] joint pain. Negativ (more content not included)... [facility] 01-30-2022 History of Present illness Narrative [...] (hypertension) Hyperlipidemia Hypothyroidism Macular degeneration optho in [place] Obesity (BMI 30.0-34.9) Osteopenia Personal history of [...] of care. This note was generated using [employer] software. It may contain errors in wording, punctuation, or spelling. Fidencio Huggins APRN.JULES documented in this encounter [facility] 10-01-2021 Note HNO ID: [id number] Author: Jesusita Rivera PA-C Service: ? Author Type: Physician Show Design Supervisor Type: Progress Notes Filed: 10/01/2021 1:17 PM Note Text: This note was created using [employer]. Subjective Kaia Hale is a 71 year [...] - Hypothyroidism - Macular degeneration optho in [place] - Obesity (BMI 30.0-34.9) - Osteopenia - Personal history of colonic polyps Colon polyps - Schizophrenia ([facility]) Dr. Shabazz - Unspecified hemorrhoids without mention [...] sounds: Normal br (more content not included)... [facility] 10-01-2021 Note HNO ID: [id number] Author: RT Veronika(R) Service: ? Author Type: Converting Technician Type: Progress Notes Filed: 10/01/2021 12:53 PM [...] RT Veronika(R) October 01, 2021 12:[address] [facility] 07-25-2021 Note HNO ID: [id number] Author: Rhett Stephenson APRN.SPRAY PAINTER HELPER Service: ? Author Type: Nurse Practitioner Type: [...] flu and covid. Patient not known to [facility], denies hx of renal/hepatic dysfunction. .Patient presents [...] - Hypothyroidism - Macular degeneration optho in [place] - Obesity (BMI 30.0-34.9) - Osteopenia - [...] adenopathy. Right cervica (more content not included)... [facility] 07-25-2021 Influenza virus A and B RNA and SARS-CoV-2 (COVID-19) N gene panel FELA+probe (Resp) COVID 19 RESULT: SARS-CoV-2 (Agent of COVID-19) Not Detected by RT-PCR or equivalent method. atilio [employer] (TRUE)_EUA This test has been authorized by the FDA under an Emergency Use Authorization (EUA). INFLUENZA A PCR: Negative for Influenza A by RT-PCR INFLUENZA B PCR: Negative for Influenza B by RT-PCR [facility] documented as of this encounter (statuses as of 01/31/2022) [facility]09-20-2005 History of Past illness Narrative* Problem Noted Date Resolved Date Schizoaffective disorder 02/08/2005 008 Osteoporosis 09/23/2019 documented as of this encounter (statuses as of 01/31/2022) [facility]09-[facility]2005 History of Past illness Narrative* Problem Noted Date Diagnosed Date Resolved Date Schizoaffective disorder 02/08/200504/2008 Osteoporosis 09/23/2019 documented as of this encounter (statuses as of 12/07/2022) [facility] Diagnosis Foot injury, right, initial encounter- Primary documented in this encounter [facility] Diagnostic Procedure Only (Urgent) - Closed Specialty Diagnoses / Procedures Referred By Contac t Referred To Contact XR IMAGING Diagnoses Foot injury, right, initial encounter Procedures XR FOOT GENERAL 3V AP/LAT/OBL RIGHT RADEX FOOT COMPLETE MINIMUM 3 VIEWS Fidencio Huggins APRN.CNP [address] [place] [address] Xr Imaging Referral ID Status Reason Start Date Expiration Date V isits Requested Visits Authorized [id number] Closed Auto-Generate d Referral 01/30/2022 03/01/2023 1 1 [facility] Summary Purpose Family History No Family History [...] any alcohol or drug abuse patient.[facility] the event this information is protected by the Federal Confidentiality of Alcohol and Drug Abuse Patient Records regulations: The Federal rules restrict any use of the information to criminally investigate or prosecute any alcohol or drug abuse patient.[facility] the event this information is protected by the Federal Confidentiality of Alcohol and Drug Abuse Patient Records regulations: The Federal rules restrict any use of the information to criminally investigate or prosecute any alcohol or drug abuse patient.[facility] Reason for Visit (unrecogniz ed section and content) Reason Comments Results Reason Comments Results, Lab INFORMATION SOURCE (unrecogn ized section and content) DATE CREATED AUTHOR AUTHOR'S ANG WILSON 11/10/2022 [facility] nt Care Teams (unrecognized sec tion [...] BE BASED ON THE PRIMARY CLINICAL RECORDS. [facility] provides no warranty or guarantee of the accuracy or completeness of information in this document.
[2023-05-12 22:08] VITALS: BP 113/71; PULSE 84; RESP 14; TEMP 36.9; O2SAT 94; BMI 29.5
[2023-05-12] MEDS: Doxycycline 100 MG CAPSULE PO (23:01)
[2023-05-12] MEDS: Acetaminophen 500 MG Tablet 1000 MG PO (23:01)
[2023-05-12] MEDS: Carbidopa/Levodopa 25/100 Tablet PO (23:01)
[2023-05-12] MEDS: Ursodiol 250 MG Tablet PO (23:01)
[2023-05-12] MEDS: OLANZapine 2.5 MG Tablet 7.5 MG PO (23:01)
[2023-05-12] MEDS: Senna/Docusate Sodium 1 Tablet 2 TABLET PO (23:02)
[2023-05-12] MEDS: APIXABAN 2.5 MG TABLET (WCH) PO (23:02)
[2023-05-12] MEDS: Potassium Chloride Oral Tablet 20 MEQ PO (23:02)
[2023-05-12] MEDS: Pravastatin 40 MG Tablet PO (23:04)
[2023-05-12] MEDS: oxyCODONE 5 MG Tablet 2.5 MG PO (23:09)
--- NOTE | 2023-05-12 23:33 | NURSING ---
Code status discussed with patient x2 nurses (this nurse and SHY Rubio) patient is A&Ox4 to person/place/time/situation. Patient requests code status to be DNRCC-A with NO intubation. Signed code status/DNR form sent with patient discharge paperwork and placed in patient chart.
[2023-05-13 03:11] VITALS: BMI 29.5
[2023-05-13] MEDS: Acetaminophen 500 MG Tablet 1000 MG PO ×3 (05:48→22:15)
[2023-05-13] MEDS: Levothyroxine 75 MCG Tablet PO (05:48)
[2023-05-13] MEDS: Carbidopa/Levodopa 25/100 Tablet PO ×3 (05:49→22:15)
[2023-05-13] MEDS: Senna/Docusate Sodium 1 Tablet 2 TABLET PO (05:49)
[2023-05-13] MEDS: Doxycycline 100 MG CAPSULE PO ×2 (05:49→17:25)
[2023-05-13] MEDS: APIXABAN 2.5 MG TABLET (WCH) PO ×2 (05:49→18:11)
[2023-05-13] MEDS: Ursodiol 250 MG Tablet PO ×2 (05:49→17:25)
[2023-05-13] MEDS: Amox/Clavulanate 875 MG Tablet PO ×2 (09:01→17:24)
[2023-05-13] MEDS: Potassium Chloride Oral Tablet 20 MEQ PO ×2 (09:01→17:24)
[2023-05-13] MEDS: Ferrous Sulfate 325 MG Tablet PO (09:01)
[2023-05-13] MEDS: Citalopram 20 MG Tablet PO (09:02)
[2023-05-13] MEDS: Cholecalciferol (VIT D3) 25 MCG TABLET (1,000 UNITS) PO (09:02)
[2023-05-13] MEDS: Miconazole Nitrate 43 GM Bottle 1 APPLIC TOPICAL ×2 (09:04→22:14)
[2023-05-13] MEDS: Menthol/Lanolin/Calamine/Znox 113 GM Tube 1 APPLIC TOPICAL ×2 (09:04→22:16)
[2023-05-13] MEDS: Tuberculin,Purif.prot.deriv. 50 TU/ML Vial 0.100000000000000006 ML ID (10:53)
[2023-05-13] MEDS: Albuterol IH (6.7 GM) 1 PUFF INHALER 2 PUFF INHALATION (14:13)
[2023-05-13 15:11] VITALS: BP 118/75; PULSE 91; RESP 18; TEMP 36.7; O2SAT 99
[2023-05-13] MEDS: oxyCODONE 5 MG Tablet 2.5 MG PO (20:37)
[2023-05-13 20:40] VITALS: PULSE 92; RESP 16; O2SAT 93
[2023-05-13] MEDS: Pravastatin 40 MG Tablet PO (22:15)
[2023-05-13] MEDS: OLANZapine 2.5 MG Tablet 7.5 MG PO (22:15)
[2023-05-14] MEDS: APIXABAN 2.5 MG TABLET (WCH) PO ×2 (05:38→16:49)
[2023-05-14] MEDS: Senna/Docusate Sodium 1 Tablet 2 TABLET PO (05:38)
[2023-05-14] MEDS: Doxycycline 100 MG CAPSULE PO ×2 (05:38→16:50)
[2023-05-14] MEDS: Levothyroxine 75 MCG Tablet PO (05:38)
[2023-05-14] MEDS: Ursodiol 250 MG Tablet PO ×2 (05:38→16:49)
[2023-05-14] MEDS: Acetaminophen 500 MG Tablet 1000 MG PO ×3 (05:38→20:10)
[2023-05-14] MEDS: Carbidopa/Levodopa 25/100 Tablet PO ×3 (05:39→20:09)
[2023-05-14] MEDS: Amox/Clavulanate 875 MG Tablet PO ×2 (08:38→16:50)
[2023-05-14] MEDS: Potassium Chloride Oral Tablet 20 MEQ PO ×2 (08:39→16:50)
[2023-05-14] MEDS: Cholecalciferol (VIT D3) 25 MCG TABLET (1,000 UNITS) PO (08:40)
[2023-05-14] MEDS: Ferrous Sulfate 325 MG Tablet PO (08:41)
[2023-05-14] MEDS: Menthol/Lanolin/Calamine/Znox 113 GM Tube 1 APPLIC TOPICAL ×2 (08:42→20:13)
[2023-05-14] MEDS: Albuterol IH (6.7 GM) 1 PUFF INHALER 2 PUFF INHALATION ×2 (08:42→20:09)
[2023-05-14] MEDS: Citalopram 20 MG Tablet PO (08:42)
[2023-05-14] MEDS: Miconazole Nitrate 43 GM Bottle 1 APPLIC TOPICAL ×2 (08:44→20:12)
[2023-05-14] MEDS: Ensure Plus High Protein 120 ML LIQUID PO (08:47)
[2023-05-14] MEDS: Ondansetron ODT 4 MG Tablet PO (09:33)
[2023-05-14] MEDS: oxyCODONE 5 MG Tablet 2.5 MG PO (13:36)
[2023-05-14 15:30] VITALS: BP 119/71; PULSE 103; RESP 16; TEMP 36.4; O2SAT 93
[2023-05-14] MEDS: Pravastatin 40 MG Tablet PO (20:10)
[2023-05-14] MEDS: OLANZapine 2.5 MG Tablet 7.5 MG PO (20:10)
--- NOTE | 2023-05-14 23:52 | NURSING ---
PICC line dressing noted to be loose, not attached to lower part of site. Dressing changed, patient tolerated well. Both lumens flushed, good blood return. End caps changed. Will continue to monitor.
[2023-05-15] MEDS: APIXABAN 2.5 MG TABLET (WCH) PO ×2 (07:03→17:13)
[2023-05-15] MEDS: Acetaminophen 500 MG Tablet 1000 MG PO ×3 (07:03→21:05)
[2023-05-15] MEDS: Ursodiol 250 MG Tablet PO ×2 (07:03→17:13)
[2023-05-15] MEDS: Levothyroxine 75 MCG Tablet PO (07:03)
[2023-05-15] MEDS: Carbidopa/Levodopa 25/100 Tablet PO ×3 (07:03→21:05)
[2023-05-15] MEDS: Doxycycline 100 MG CAPSULE PO ×2 (07:03→17:12)
[2023-05-15] MEDS: Amox/Clavulanate 875 MG Tablet PO ×2 (08:00→17:13)
[2023-05-15] MEDS: Potassium Chloride Oral Tablet 20 MEQ PO ×2 (08:01→17:13)
[2023-05-15] MEDS: Ensure Plus High Protein 120 ML LIQUID PO (08:01)
[2023-05-15] MEDS: Ferrous Sulfate 325 MG Tablet PO (08:01)
[2023-05-15] MEDS: Menthol/Lanolin/Calamine/Znox 113 GM Tube 1 APPLIC TOPICAL ×2 (08:03→21:04)
[2023-05-15] MEDS: Cholecalciferol (VIT D3) 25 MCG TABLET (1,000 UNITS) PO (08:03)
[2023-05-15] MEDS: Miconazole Nitrate 43 GM Bottle 1 APPLIC TOPICAL ×2 (08:04→21:04)
[2023-05-15] MEDS: Citalopram 20 MG Tablet PO (08:04)
[2023-05-15] MEDS: Loperamide 2 MG Capsule PO (12:24)
[2023-05-15] MEDS: Ondansetron ODT 4 MG Tablet PO ×2 (12:24→21:07)
[2023-05-15 15:18] VITALS: BP 118/62; PULSE 108; RESP 20; TEMP 35.9; O2SAT 95
[2023-05-15 16:48] VITALS: PULSE 92; RESP 16; O2SAT 93
[2023-05-15] MEDS: Pravastatin 40 MG Tablet PO (21:05)
[2023-05-15] MEDS: OLANZapine 2.5 MG Tablet 7.5 MG PO (21:07)
[2023-05-16] MEDS: Acetaminophen 500 MG Tablet 1000 MG PO ×3 (05:52→21:14)
[2023-05-16] MEDS: Ursodiol 250 MG Tablet PO ×2 (05:52→17:27)
[2023-05-16] MEDS: Carbidopa/Levodopa 25/100 Tablet PO ×3 (05:53→21:15)
[2023-05-16] MEDS: Doxycycline 100 MG CAPSULE PO ×2 (05:53→17:26)
[2023-05-16] MEDS: Albuterol IH (6.7 GM) 1 PUFF INHALER 2 PUFF INHALATION ×2 (05:54→13:21)
[2023-05-16] MEDS: APIXABAN 2.5 MG TABLET (WCH) PO ×2 (05:54→17:25)
[2023-05-16] MEDS: Levothyroxine 75 MCG Tablet PO (05:58)
[2023-05-16] MEDS: Amox/Clavulanate 875 MG Tablet PO (08:08)
[2023-05-16] MEDS: Ferrous Sulfate 325 MG Tablet PO (08:08)
[2023-05-16] MEDS: Potassium Chloride Oral Tablet 20 MEQ PO ×2 (08:09→17:24)
[2023-05-16] MEDS: Citalopram 20 MG Tablet PO (08:09)
[2023-05-16] MEDS: Cholecalciferol (VIT D3) 25 MCG TABLET (1,000 UNITS) PO (08:09)
[2023-05-16] MEDS: Senna/Docusate Sodium 1 Tablet 2 TABLET PO ×2 (08:11→17:23)
[2023-05-16] MEDS: Miconazole Nitrate 43 GM Bottle 1 APPLIC TOPICAL ×2 (08:12→21:16)
[2023-05-16] MEDS: Menthol/Lanolin/Calamine/Znox 113 GM Tube 1 APPLIC TOPICAL ×2 (08:12→21:16)
[2023-05-16] MEDS: Ensure Plus High Protein 120 ML LIQUID PO (08:13)
[2023-05-16] MEDS: Ondansetron ODT 4 MG Tablet PO (09:56)
[2023-05-16] MEDS: oxyCODONE 5 MG Tablet 2.5 MG PO (13:25)
--- NOTE | 2023-05-16 14:33 | PCM.PN.ID ---
Physical Exam Narrative Feeling better, some hip soreness, no fever Const alert and no apparent distress Resp normal air movement and clear to auscultation bilaterally Cardio regular rate and regular rhythm GI soft to palpation, non-tender and non-distended Skin no rashes or lesions noted Skin Narrative: wound vac in place ID ID: Route of nutrition/ use of supplements: [] Nutritional Intake: [] IV Site: [] Daly Catheter: [] Assessment & Plan Assessment/Plan (1) Infected prosthesis of left hip: PLAN: Taken to OR 05/10/[address] Frances for I&D of post-op seroma. Surg cx showing 1 with strep and 1 with leuconostoc. Will change to po doxy and iv ceftriaxone for 6 week course, stop date 06/21/23. Will follow
[2023-05-16] MEDS: 0.9% Saline Lock 10 ML Syringe IV ×2 (15:16→17:23)
[2023-05-16] MEDS: Ceftriaxone 2 GM in 0.9% Normal Saline (50mL MB+) 50 ML IV (15:16)
--- NOTE | 2023-05-16 15:20 | PCM.PROGNOTE ---
Subjective Subjective Afebrile Vital signs stable Maintaining appropriate oxygen saturation on room air Asked by nursing to see patient complaining of heartburn/acid reflux. She is not on an H2 or PPI at this time but takes Nexium or Prilosec at home. She has PD and may have some esophageal dysmotility. She also has a HH. Review of the labs shows a normal MCV at 94 however she has microcytosis, macrocytosis and 2+ anisocytosis. No iron studies in the EMR. She is in TCU for 6 weeks of Rocephin and Doxy for infected hip. Alert and appropriate no tachypnea and no conversational dyspnea. HRRR L-CTA no calf tenderness. Impressions 1. infected seroma left hip- S/P revision 2. GERD 3. Anemia - suspect iron deficiency 4. chronic anticoagulation - while in hospital with Apixaban 5. PD PLAN: 1. Continue therapy 2. Start Protonix 40 mg p.o. twice daily 3. Check iron studies, reticulocyte count and a heme stool. TSH recently normal. No B12 of folate in the EMR but, I suspect the macrocytes are likely due to increased reticulocytes. If the retic count is not elevated will order a B12 and a folate. 4. Recheck a BMP and a CBC in 1 week. If she is iron def will need to have IV iron supplementation because she is on Protonix BID and the lack of gastric acid impairs the absorption of oral iron. Objective Data Objective Data Vital Signs: Vital Signs Temp Pulse Resp BP Pulse Ox O2 Del Method 96.7 F L 92 16 118/62 93 Room Air 05/15/23 15:18 05/15/23 16:48 05/15/23 16:48 05/15/23 15:18 05/15/23 16:48 05/15/23 16:48 Oxygen Delivery Method Room Air Weight: 166 lb 7.184 oz Body Mass Index (BMI) 29.5 Intake & Output: Intake and Output for Last 24 Hours 05/14/23 05/15/23 05/16/23 23:59 23:59 23:59 Intake Total 2160 / 2160 1200 / 1200 Output Total 400 / 400 Balance 2160 / 2160 1200 / 1200 -400 / -400 Medical Nutrition Assessment Dietitian: Malnutrition Criteria Met Start: 05/13/23 13:35 Freq: Status: Active Protocol: Document 05/13/23 13:35 KNK (Rec: 05/13/23 13:35 VINAY [id number]) Nutrition Malnutrition Evidence of Malnutrition Exists Yes Malnutrition (moderate): Acute Illness/Injury Evidenced By Suboptimal Energy Intake ( Moderate),Weight Loss (Severe) Intake Problem Increased Nutrient Needs (specify) Etiology (protein) related to wound healing Signs/Symptoms as evidenced by multiple wounds (surgical incision, drain site, moisture-related area). Status Active Problem Clinical Problem Acute Disease or Injury Related Malnutrition Etiology related to decreased ability to consume sufficient energy to meet estimated nutrient needs Signs/Symptoms as evidenced by significant unintentional weight loss of 6lb, or 3.5%, in less than 2 weeks per 05/04/23 wt of 172lb and 14%, or 27lb, based upon 10/08/22 wt of 193lb, which is ~7 months; and poor oral intakes of less than 75% of estimated nutrient needs for greater than 1 week. Status Active Problem Recommendation Dietitian Recommendations/Changes Continue with Regular diet at this time for liberalization as well as Ensure plus high protein 120mL 1x/day w/ medpass as requested by the res. Will also start Cornel BID w/ breakfast and dinner ( orange flavor) to aid with wound healing. Will continue to follow the resident, monitor oral intakes and tolerance of ONS, and modify nutrition intervention as needed. Charges/Coding Visit Charges Inpatient E&M: 33269 SNF Subs L1
[2023-05-16 15:45] VITALS: BP 106/61; PULSE 100; RESP 18; TEMP 36.4; O2SAT 97
[2023-05-16 16:09] LABS: Platelet Count 353 K/mm3 (150-450); RET-HE 31.7 pg (30-35); Reticulocyte Count 5.24 % (0.5-1.5)
[2023-05-16 16:27] LABS: Iron 28 ug/dL (50-170); Iron Binding Capacity,Total 184 ug/dL (250-450); PERCENT IRON SATURATION 15.2 % (15.0-55.0)
--- NOTE | 2023-05-16 17:18 | CASEMGMT ---
Social Work Pt readmitted to TCU From short hospital stay. SW met with pt and completed BIMS assessment. Pt with no change of plans to current course. Pt admitted for short term rehab and plans to discharge home with her spouse when medically ready. SW to follow for dc planning. JES Foreman
[2023-05-16 17:19] LABS: Vitamin B12 1067 pg/mL (211-911)
[2023-05-16] MEDS: 0.9% Normal Saline (250mL Bag) 250 ML 15 ML IV (17:22)
[2023-05-16] MEDS: Sodium Ferric Gluconat 125 MG in 0.9% Normal Saline 100 ML 110 MG IV (17:23)
[2023-05-16] MEDS: OLANZapine 2.5 MG Tablet 7.5 MG PO (21:14)
[2023-05-16] MEDS: Pravastatin 40 MG Tablet PO (21:15)
[2023-05-16] MEDS: Pantoprazole Sodium 40 MG Tablet PO (21:15)
[2023-05-17] MEDS: APIXABAN 2.5 MG TABLET (WCH) PO ×2 (05:10→17:25)
[2023-05-17] MEDS: Acetaminophen 500 MG Tablet 1000 MG PO ×3 (05:10→22:07)
[2023-05-17] MEDS: Ursodiol 250 MG Tablet PO ×2 (05:10→17:27)
[2023-05-17] MEDS: Carbidopa/Levodopa 25/100 Tablet PO ×3 (05:10→22:06)
[2023-05-17] MEDS: Doxycycline 100 MG CAPSULE PO ×2 (05:10→17:25)
[2023-05-17] MEDS: Senna/Docusate Sodium 1 Tablet 2 TABLET PO ×2 (05:10→17:25)
[2023-05-17] MEDS: Levothyroxine 75 MCG Tablet PO (05:11)
--- NOTE | 2023-05-17 08:44 | NURSING ---
Machine Chain Maker note; Activity Asset: Cody Marti has returned for continued therapy and remains independent in her choice of in room activities. She prefers in room activities over group at this time due to medical condition. She stated she enjoys visits w/family and friends, watching Gun Smoke and resting. She will welcome visit from both the microwave radio technician and therapy dog when available. Staff will visit weekly and offer in room and out of room activities and respect her right to say no.
[2023-05-17] MEDS: Citalopram 20 MG Tablet PO (09:10)
[2023-05-17] MEDS: Ensure Plus High Protein 120 ML LIQUID PO (09:10)
[2023-05-17] MEDS: Potassium Chloride Oral Tablet 20 MEQ PO ×2 (09:10→17:25)
[2023-05-17] MEDS: Cholecalciferol (VIT D3) 25 MCG TABLET (1,000 UNITS) PO (09:10)
[2023-05-17] MEDS: Pantoprazole Sodium 40 MG Tablet PO ×2 (09:10→22:06)
--- NOTE | 2023-05-17 10:43 | WOUNDNOTE ---
wound photo: left hip
[2023-05-17] MEDS: Ceftriaxone 2 GM in 0.9% Normal Saline (50mL MB+) 50 ML IV (10:56)
[2023-05-17] MEDS: Menthol/Lanolin/Calamine/Znox 113 GM Tube 1 APPLIC TOPICAL ×2 (10:57→22:03)
[2023-05-17] MEDS: Miconazole Nitrate 43 GM Bottle 1 APPLIC TOPICAL ×2 (10:57→22:03)
[2023-05-17] MEDS: 0.9% Normal Saline (250mL Bag) 250 ML 15 ML IV (11:05)
[2023-05-17] MEDS: 0.9% Saline Lock 10 ML Syringe IV ×2 (11:06→22:30)
--- NOTE | 2023-05-17 11:17 | CASEMGMT ---
Social Work IDT met with patient, and dtr for care plan meeting. Discussed patient's progress in PT/OT/SN. Educated to [facility] insurance with NRD 05/16 and continued stay is not guaranteed. Pt stated she is changing insurances to [employer] effective 05/22/23. SW educated to insurance may not be INN with TCU or insurance may not approve precert for continued stay; TCU will need to obtain precert, which cannot be submitted until after the holiday on 05/23/23. Pt cannot pay privately for TCU. Pt/family would prefer pt remain another week for continued therapy improvement as cannot physically assist at home. Dtr works supervisor slashing department. SW discussed IV ATB and wound vac. Both would need approved under new insurance, which likely will not be able to be completed until the effective date. SW to refer to I for ATB pricing. SW to notify wound nurse and floor nurse to begin teaching with dtr for administration. Pt stated she used [facility] prior. SW to coordinate those services. Communications sent to all parties. SW will continue to follow. Carmelina Ramirez, BULB PACKER VICE PRESIDENT OF SOFTWARE ENGINEERING
--- NOTE | 2023-05-17 11:35 | PHA.CONS_ITS ---
TCU RX Drug Regimen Review Subjective/Objective Subjective/Objective: Subjective: TCU Admission. 72 YOF hospitalized for left hip hematoma/seroma evacuation, complex wound closure with wound VAC, revision left hip replacement femoral component 05/10/[address] Frances. Admitted to TCU with debility for strengthening and rehabilitation. Objective: Allergies linaclotide [From Linzess] Allergy (Mild, Verified 05/10/23 09:17) chest tightness histamine phosphate [From Histatrol] Allergy (Verified 05/10/23 09:17) Unknown Current Medications Generic Name Dose Route Start Last Admin Trade Name Freq PRN Reason Stop Dose Admin Acetaminophen 1,000 mg 05/12/23 22:15 05/17/23 05:10 Acetaminophen 500 Mg Tablet PO 1,000 mg Q8 JENA Administration Al Hydroxide/Mg Hydroxide 30 ml 05/16/23 16:03 Mag Hydrox/Al Hydrox/Simeth 30 Ml Udc PO Q6H PRN PRN heart burn Albuterol Sulfate 2 puff 05/12/23 22:03 05/16/23 13:21 Albuterol Ih (6.7 Gm) 1 Puff Inhaler INHALATION 2 puff Q6H PRN PRN Administration shortness of breath/wheezing Apixaban 2.5 mg 05/12/23 22:15 05/17/23 05:10 Apixaban 2.5 Mg Tablet ([facility]) PO 05/26/23 18:01 2.5 mg BID@0600,1800 JENA Administration Ascorbic Acid 500 mg 05/17/23 12:00 Ascorbic Acid 500 Mg Tablet PO LUNCH [facility] Aspirin 81 mg 05/24/23 08:00 Aspirin E.C. 81 Mg Tablet PO 06/07/23 08:01 BIDCM [facility] Calamine/Phenol 1 applic 05/13/23 10:00 05/17/23 10:57 Menthol/Lanolin/Calamine/Znox 113 Gm Tube TOPICAL 1 applic BID [facility] Administration Protocol Carbidopa/Levodopa 1 tablet 05/12/23 22:15 05/17/23 05:10 Carbidopa/Levodopa 25/100 Tablet PO 1 tablet TID JENA Administration Cholecalciferol 25 mcg 05/13/23 08:00 05/17/23 09:10 Cholecalciferol (Vit D3) 25 Mcg Tablet (1,000 Units) PO 25 mcg DAILYCM [facility] Administration Citalopram Hydrobromide 20 mg 05/13/23 10:00 05/17/23 09:10 Citalopram 20 Mg Tablet PO 20 mg DAILY JENA Administration Doxycycline Monohydrate 100 mg 05/12/23 22:10 05/17/23 05:10 Doxycycline 100 Mg Capsule PO 05/26/23 18:01 100 mg BID@0600,1800 JENA Administration Ferrous Sulfate 325 mg 05/17/23 12:00 Ferrous Sulfate 325 Mg Tablet PO LUNCH JENA Heparin Sodium (Beef Lung) 50 units 05/14/23 05:21 Heparin Pf Lock 10 Units/Ml 50 Units/5 Ml Syringe IV UD PRN PICC Line Heparin Flush Ceftriaxone Sodium 2 gm/ 50 mls @ 100 mls/hr 05/16/23 13:40 05/17/23 10:56 Sodium Chloride IV 100 mls/hr Q24 JENA Administration Sodium Chloride 250 mls @ 15 mls/hr 05/16/23 15:24 05/17/23 11:05 IV 15 mls/hr .[id number] PRN Administration Additional IVPB Infusion Sodium Chloride 250 mls @ 15 mls/hr 05/16/23 15:24 IV .[id number] PRN Saline Flush Levothyroxine Sodium 75 mcg 05/13/23 06:00 05/17/23 05:11 Levothyroxine 75 Mcg Tablet PO 75 mcg 0600 JENA Administration Lidocaine HCl 15 ml 05/16/23 16:03 Lidocaine 2% Viscous 15 Ml Udc PO Q6H PRN PRN HEARTBURN Loperamide HCl 2 mg 05/12/23 22:03 05/15/23 12:24 Loperamide 2 Mg Capsule PO 2 mg Q4H PRN PRN Administration DIARRHEA/LOOSE STOOLS Miconazole Nitrate 1 applic 05/13/23 10:00 05/17/23 10:57 Miconazole Nitrate 43 Gm Bottle TOPICAL 1 applic BID JENA Administration Protocol Nutritional Formula (Lactose Free) 120 ml 05/13/23 08:00 05/17/23 09:10 Ensure Plus High Protein 120 Ml Liquid PO 120 ml DAILYCM JENA Administration Olanzapine 7.5 mg 05/12/23 22:15 05/16/23 21:14 Olanzapine 2.5 Mg Tablet PO 7.5 mg QHS JENA Administration Ondansetron HCl 4 mg 05/12/23 22:03 05/16/23 09:56 Ondansetron Odt 4 Mg Tablet PO 4 mg Q8H PRN PRN Administration nausea and vomiting Oxycodone HCl 2.5 mg 05/12/23 22:03 05/16/23 13:25 Oxycodone 5 Mg Tablet PO 05/19/23 22:04 2.5 mg Q4H PRN PRN Administration Pain Score 4-10 Pantoprazole Sodium 40 mg 05/16/23 22:00 05/17/23 09:10 Pantoprazole Sodium 40 Mg Tablet PO 40 mg BID JENA Administration Potassium Chloride 20 meq 05/12/23 22:15 05/17/23 09:10 Potassium Chloride Oral Tablet 20 Meq PO 20 meq BIDCM JENA Administration Pravastatin Sodium 40 mg 05/12/23 22:15 05/16/23 21:15 Pravastatin 40 Mg Tablet PO 40 mg QHS JENA Administration Senna/Docusate Sodium 2 tablet 05/12/23 22:15 05/17/23 05:10 Senna/Docusate Sodium 1 Tablet PO 1 tablet BID@0600,1800 JENA Administration Sodium Chloride 10 - 40 ml 05/14/23 05:21 05/17/23 11:06 0.9% Saline Lock 10 Ml Syringe IV 20 ml UD PRN Administration Open End PICC Flush Sodium Chloride 10 - 40 ml 05/16/23 15:24 0.9 % Nacl (Sterile) Posiflush 10 Ml IV UD PRN Port access or dressing change Sodium Chloride 10 - 40 ml 05/16/23 15:24 0.9% Saline Lock 10 Ml Syringe IV UD PRN Closed End PICC Flush Tuberculin PPD 0.1 ml 05/20/23 10:00 Tuberculin,Purif.Prot.Deriv. 50 Tu/Ml Vial ID 05/20/23 10:01 X1 ONE Ursodiol 250 mg 05/12/23 22:15 05/17/23 05:10 Ursodiol 250 Mg Tablet PO 250 mg BID@0600,1800 [facility] Administration Problem List Iron deficiency anemia (Acute) Vitamin D deficiency (Acute) History of revision of total replacement of left hip joint (Acute) Seroma after procedure (Acute) Infected prosthesis of left hip (Acute) Depression (Acute) Hyperlipidemia (Acute) Debility (Acute) Hypothyroidism (Chronic) Hypokalemia (Acute) Schizophrenia (Acute) Parkinson disease (Acute) Vital Signs Temp Pulse Resp BP Pulse Ox O2 Del Method 97.6 F L 100 18 106/61 97 Room Air 05/16/23 15:45 05/16/23 15:45 05/16/23 15:45 05/16/23 15:45 05/16/23 15:45 05/16/23 23:04 Oxygen Delivery Method Room Air Weight: 75.5 kg Body Mass Index (BMI) 29.5 Assessment/Plan: 1. Pain: acetaminophen 1000 mg Q8 and oxycodone 2.5mg PO Q4H PRN pain 4-10. Please continue to monitor for pain levels, LFT (05/05/23), constipation, PRN usage, and respiratory depression. Resident has had 4 doses of oxycodone for pain scores of 5/6/8 in the hip/back. 2. Bowel: loperamide 2 mg PO Q4H PRN diarrhea and senna/docusate 2T PO BID. The resident has had 1 PRN loperamide. The patient's last documented bowel movement was 05/14/23. Please continue to monitor for bowel movements, PRN medication usage, diarrhea and constipation. 3. Left hip infection status post irrigation/debridement: ceftriaxone 2gm IV daily and doxycycline 100 mg PO BID through 05/26/23. Please continue to monitor for resolution of infection, WBC count (WBC = 14.4 K/mm3 on 05/13/23), for fevers (afebrile this admission), for chills, for diarrhea, and for GI distress with doxycycline administration. Per Dr. Forrester's note, stop date should be 06/21/23 for both antibiotics. Please consider changing stop dates to match ID recommendation. Thanks. 4. DVT prophylaxis: apixaban 2.5mg PO BID thru 05/26/23, aspirin 81 mg PO BIDCM 05/24/23 thru 06/07/23. Per discharge note from Ramesh Mack, resident to receive apixaban 2.5mg BID x 2 weeks, then followed by aspirin for 2 weeks. Including apixban doses from inpatient stay, stop date on apixaban should be 05/24/23, then aspirin should be given 05/25/23 - 06/07/23 for 14 days of each medication. Please consider updating start and stop dates. Thanks. Please continue to monitor for s/s of a DVT such as erythema/swelling/pain in the lower extremity, as well as for bleeding/excessive bruising, platelet count (Plt = 252 K/mm3 on 05/13/23), and for GI distress with aspirin administration. 5. Shortness of breath: albuterol inhaler 2 puffs Q6H PRN shortness of breath. The resident has not used any PRN doses of albuterol so far this admission. Please continue to monitor for shortness of breath and PRN usage. 6. Parkinson's disease: carbidopa/levodopa 25/100 mg tablet PO TID before meals. Please continue to monitor for control of PD symptoms, dyskinesias,nausea/vomiting, blood pressures (last 106/61), and for constipation. 7. Hypothyroidism: levothyroxine 75 mcg PO daily. Please continue to monitor for s/s of hypo/hyperthyroidism as well as TSH/T4 levels (TSH = 0.82 uIU/mL on 04/30/23, and free T4 = 1.65 ng/dL on 05/10/16). 8. GERD: pantoprazole 40 mg PO BID. Please continue to monitor for s/s of GERD as well as for diarrhea that could indicate clostridium difficile infection and for s/s of bone resorption such as fractures (BEERs medication). 9. Hyperlipidemia: pravastatin 40 mg PO QHS. Please continue to monitor lipid levels (cholesterol = 142 mg/dL on 02/21/23, and LDL = 59 mg/dL on 02/21/23), as well as LFTs (last 05/05/23), and for myopathy. 10. Hypokalemia: potassium chloride 20 mEq PO BID. Please continue to monitor potassium levels (K = 4 mmol/L), as well as for GI distress with potassium administration. If GI distress occurs with potassium administration please consider giving with food. 11. Nausea: ondansetron 4 mg PO Q8H PRN nausea. The resident has had 4 PRN doses of ondansetron so far this admission. Please continue to monitor for nausea, PRN medication usage, constipation and headaches. 12. Iron deficiency anemia: ferrous sulfate 325 mg PO lunch and ascorbic acid 500mg PO lunch. Please continue to monitor iron levels (05/16/23), dark stools, constipation, as well as hemoglobin levels (last 9 g/dL) and for GI distress with iron tablet administration. 13. Vitamin D deficiency: cholecalciferol 25 mcg PO daily. Please continue to monitor for s/s of vitamin D deficiency as well as vitamin D levels (vitamin D = 53.6 ng/mL on 02/21/23). 14. Fatty liver: ursodiol 250mg PO BID. Please continue to monitor GI side effects and LFTs. 15. Heartburn: lidocaine 2% viscous 15mL PO Q6H PRN heartburn and Mylanta II PO Q6H PRN heartburn. Resident has not used any doses so far. Please continue to monitor for S/S of heartburn and PRN usage. Assessment/Plan for indications treated with psychotropic medications: 1. Depression: citalopram 20 mg PO daily. Please see provider note regarding stable chronic long-term use GDR not recommended. Please continue to monitor for s/s of suicidal ideation (black box warning), falls/fractures (BEERs medication), sodium levels (Na = 140 mmol/L on 05/13/23), for s/s of serotonin syndrome, for nausea, dry mouth, and drowsiness. 2. Schizophrenia: olanzapine 7.5 mg PO QHS. Please see provider note regarding stable chronic long-term use GDR not recommended. Please continue to monitor for s/s of worsening schizophrenia symptoms, dementia (black box warning), for anticholinergic side effects including dry mouth, dry eyes, constipation and delirium, for NMS, sedation, and for s/s of orthostasis. Medical chart and medication regimen reviewed. The following medication irregularities or issues were identified: 1. Ceftriaxone 2gm IV daily and doxycycline 100 mg PO BID through 05/26/23. Per Dr. Forrester's note, stop date should be 06/21/23 for both antibiotics. Please consider changing stop dates to match ID recommendation. Thanks. 2. Apixaban 2.5mg PO BID thru 05/26/23, aspirin 81 mg PO BIDCM 05/24/23 thru 06/07/23. Per discharge note from Ramesh Mack, resident to receive apixaban 2.5mg BID x 2 weeks, then followed by aspirin 81mg BID for 2 weeks. Including apixaban doses from inpatient stay, stop date on apixaban should be 05/24/23, then aspirin should be given 05/25/23 - 06/07/23 for 14 days of each medication. Please consider updating start and stop dates. Thanks. Date Date of Note:: 05/17/23
[2023-05-17] MEDS: oxyCODONE 5 MG Tablet 2.5 MG PO (11:46)
[2023-05-17] MEDS: Ferrous Sulfate 325 MG Tablet PO (11:47)
[2023-05-17] MEDS: Ascorbic Acid 500 MG Tablet PO (11:47)
[2023-05-17 14:02] VITALS: BP 121/49; PULSE 98; RESP 16; TEMP 35.8; O2SAT 95
[2023-05-17] MEDS: Sodium Ferric Gluconat 250 MG in 0.9% Normal Saline 250 ML 135 MG IV (16:36)
[2023-05-17] MEDS: Pravastatin 40 MG Tablet PO (22:06)
[2023-05-17] MEDS: OLANZapine 2.5 MG Tablet 7.5 MG PO (22:07)
[2023-05-18] MEDS: APIXABAN 2.5 MG TABLET (WCH) PO ×2 (05:08→17:02)
[2023-05-18] MEDS: Doxycycline 100 MG CAPSULE PO ×2 (05:08→17:04)
[2023-05-18] MEDS: Senna/Docusate Sodium 1 Tablet 2 TABLET PO ×2 (05:09→07:43)
[2023-05-18] MEDS: Levothyroxine 75 MCG Tablet PO (05:09)
[2023-05-18] MEDS: Acetaminophen 500 MG Tablet 1000 MG PO ×3 (05:09→21:59)
[2023-05-18] MEDS: Ursodiol 250 MG Tablet PO ×2 (05:09→17:03)
[2023-05-18] MEDS: Carbidopa/Levodopa 25/100 Tablet PO ×3 (05:10→21:58)
[2023-05-18] MEDS: Pantoprazole Sodium 40 MG Tablet PO ×2 (07:43→21:58)
[2023-05-18] MEDS: Citalopram 20 MG Tablet PO (07:43)
[2023-05-18] MEDS: Menthol/Lanolin/Calamine/Znox 113 GM Tube 1 APPLIC TOPICAL ×2 (07:43→22:00)
[2023-05-18] MEDS: Potassium Chloride Oral Tablet 20 MEQ PO ×2 (07:43→17:01)
[2023-05-18] MEDS: Cholecalciferol (VIT D3) 25 MCG TABLET (1,000 UNITS) PO (07:43)
[2023-05-18] MEDS: Miconazole Nitrate 43 GM Bottle 1 APPLIC TOPICAL ×2 (07:44→22:00)
[2023-05-18] MEDS: oxyCODONE 5 MG Tablet 2.5 MG PO ×2 (07:51→21:54)
[2023-05-18 10:00] VITALS: PULSE 82; RESP 16; O2SAT 98
[2023-05-18] MEDS: Ensure Plus High Protein 120 ML LIQUID PO (10:07)
[2023-05-18] MEDS: Sodium Ferric Gluconat 250 MG in 0.9% Normal Saline 250 ML 135 MG IV (10:43)
[2023-05-18] MEDS: Ceftriaxone 2 GM in 0.9% Normal Saline (50mL MB+) 50 ML IV (10:46)
[2023-05-18] MEDS: Ascorbic Acid 500 MG Tablet PO (11:58)
[2023-05-18] MEDS: 0.9% Saline Lock 10 ML Syringe IV ×2 (13:34→22:24)
[2023-05-18] MEDS: Ferrous Sulfate 325 MG Tablet PO (14:06)
--- NOTE | 2023-05-18 16:32 | CHAPLAIN ---
Type of Pastoral Visit ___ Initial Visit _x__ Follow-up Visit ___ On-call Visit ___ General Patient Visit ___ Spiritual Assessment ___ Family Conference ___ Bereavement ___ Rapid Response ___ Code Blue ___ Other (describe below) Pastoral Care Referral From _x__ Patient ___ Family ___ Nurse ___ Physician ___ Box Feeder ___ Civil Engineering Intern ___ Other (describe below) Sacrament/Intervention _x__ Active listening ___ Anointing ___ Presybeterian ___ Bereavement ___ Communion ___ Ying exploration ___ ___ Life review _x__ Prayer ___ Reconciliation ___ Sacrament of Sick ___ Supportive presence ___ Wedding ___ Other (describe below) Pastoral Comments updates on her progress are expresses by patient; pt is satisfied with how things are going and states no issues or concerns; pt welcomes a prayer for support today
[2023-05-18] MEDS: OLANZapine 2.5 MG Tablet 7.5 MG PO (21:58)
[2023-05-18] MEDS: Pravastatin 40 MG Tablet PO (21:58)
[2023-05-19] MEDS: Levothyroxine 75 MCG Tablet PO (05:10)
[2023-05-19] MEDS: Acetaminophen 500 MG Tablet 1000 MG PO ×3 (05:10→21:30)
[2023-05-19] MEDS: Doxycycline 100 MG CAPSULE PO ×2 (05:10→17:36)
[2023-05-19] MEDS: Ursodiol 250 MG Tablet PO ×2 (05:10→17:36)
[2023-05-19] MEDS: Carbidopa/Levodopa 25/100 Tablet PO ×3 (05:10→21:31)
[2023-05-19] MEDS: Senna/Docusate Sodium 1 Tablet 2 TABLET PO ×2 (05:10→17:36)
--- NOTE | 2023-05-19 08:53 | NURSING ---
Receptionist Doctor'S Office Note; MDS for 05/19/2023
[2023-05-19] MEDS: Potassium Chloride Oral Tablet 20 MEQ PO ×2 (08:55→17:36)
[2023-05-19] MEDS: Ensure Plus High Protein 120 ML LIQUID PO (08:55)
[2023-05-19] MEDS: Cholecalciferol (VIT D3) 25 MCG TABLET (1,000 UNITS) PO (08:56)
[2023-05-19] MEDS: Citalopram 20 MG Tablet PO (08:56)
[2023-05-19] MEDS: Pantoprazole Sodium 40 MG Tablet PO ×2 (08:56→21:30)
[2023-05-19] MEDS: Miconazole Nitrate 43 GM Bottle 1 APPLIC TOPICAL ×2 (08:57→21:28)
[2023-05-19] MEDS: Menthol/Lanolin/Calamine/Znox 113 GM Tube 1 APPLIC TOPICAL ×2 (08:57→21:29)
[2023-05-19] MEDS: oxyCODONE 5 MG Tablet 2.5 MG PO ×2 (09:05→21:28)
[2023-05-19 10:00] VITALS: PULSE 94; RESP 18; O2SAT 96
[2023-05-19] MEDS: APIXABAN 2.5 MG TABLET (WCH) PO ×2 (10:03→17:36)
[2023-05-19] MEDS: Ceftriaxone 2 GM in 0.9% Normal Saline (50mL MB+) 50 ML IV (10:04)
[2023-05-19] MEDS: 0.9% Normal Saline (250mL Bag) 250 ML 15 ML IV (10:04)
[2023-05-19] MEDS: 0.9% Saline Lock 10 ML Syringe IV ×2 (10:05→14:18)
[2023-05-19] MEDS: Ferrous Sulfate 325 MG Tablet PO (11:20)
[2023-05-19] MEDS: Ascorbic Acid 500 MG Tablet PO (11:20)
[2023-05-19 15:59] VITALS: BP 110/58; PULSE 97; RESP 16; TEMP 36.1; O2SAT 96
--- NOTE | 2023-05-19 16:56 | CASEMGMT ---
Social Work BIMS () and PHQ-2 () completed for MDS assessment. Carmelina Ramirez MSW PETROLEUM ENGINEERING PROFESSOR
[2023-05-19] MEDS: OLANZapine 2.5 MG Tablet 7.5 MG PO (21:30)
[2023-05-19] MEDS: Pravastatin 40 MG Tablet PO (21:31)
[2023-05-20] MEDS: Doxycycline 100 MG CAPSULE PO ×2 (06:26→17:22)
[2023-05-20] MEDS: APIXABAN 2.5 MG TABLET (WCH) PO ×2 (06:26→17:22)
[2023-05-20] MEDS: Carbidopa/Levodopa 25/100 Tablet PO ×3 (06:27→22:16)
[2023-05-20] MEDS: Acetaminophen 500 MG Tablet 1000 MG PO ×3 (06:27→22:17)
[2023-05-20] MEDS: Ursodiol 250 MG Tablet PO ×2 (06:27→17:22)
[2023-05-20] MEDS: Levothyroxine 75 MCG Tablet PO (06:28)
[2023-05-20 06:36] VITALS: PULSE 87; RESP 16; O2SAT 98
[2023-05-20] MEDS: Potassium Chloride Oral Tablet 20 MEQ PO ×2 (07:43→17:22)
[2023-05-20] MEDS: Ensure Plus High Protein 120 ML LIQUID PO (07:43)
[2023-05-20] MEDS: Cholecalciferol (VIT D3) 25 MCG TABLET (1,000 UNITS) PO (07:44)
[2023-05-20] MEDS: Menthol/Lanolin/Calamine/Znox 113 GM Tube 1 APPLIC TOPICAL ×2 (07:44→22:18)
[2023-05-20] MEDS: Pantoprazole Sodium 40 MG Tablet PO ×2 (07:45→22:16)
[2023-05-20] MEDS: Citalopram 20 MG Tablet PO (07:45)
[2023-05-20] MEDS: Miconazole Nitrate 43 GM Bottle 1 APPLIC TOPICAL ×2 (07:45→22:15)
[2023-05-20] MEDS: Ondansetron ODT 4 MG Tablet PO (07:50)
[2023-05-20 08:10] VITALS: O2SAT 98
[2023-05-20 08:23] VITALS: BP 109/63; PULSE 90; RESP 15; TEMP 36.5; O2SAT 98
[2023-05-20] MEDS: Ceftriaxone 2 GM in 0.9% Normal Saline (50mL MB+) 50 ML IV (10:01)
[2023-05-20] MEDS: Tuberculin,Purif.prot.deriv. 50 TU/ML Vial 0.100000000000000006 ML ID (10:24)
[2023-05-20] MEDS: Ferrous Sulfate 325 MG Tablet PO (11:51)
[2023-05-20] MEDS: Ascorbic Acid 500 MG Tablet PO (11:52)
[2023-05-20 16:00] VITALS: BP 97/64; PULSE 102; RESP 18; TEMP 36.1; O2SAT 92
[2023-05-20] MEDS: Pravastatin 40 MG Tablet PO (22:16)
[2023-05-20] MEDS: OLANZapine 2.5 MG Tablet 7.5 MG PO (22:18)
[2023-05-20] MEDS: oxyCODONE 5 MG Tablet 2.5 MG PO (22:46)
[2023-05-21 05:17] VITALS: BMI 29.2
[2023-05-21] MEDS: APIXABAN 2.5 MG TABLET (WCH) PO ×2 (06:20→17:22)
[2023-05-21] MEDS: Senna/Docusate Sodium 1 Tablet 2 TABLET PO (06:20)
[2023-05-21] MEDS: Ursodiol 250 MG Tablet PO ×2 (06:20→17:22)
[2023-05-21] MEDS: Levothyroxine 75 MCG Tablet PO (06:20)
[2023-05-21] MEDS: Doxycycline 100 MG CAPSULE PO ×2 (06:20→17:22)
[2023-05-21] MEDS: Carbidopa/Levodopa 25/100 Tablet PO ×3 (06:21→22:37)
[2023-05-21] MEDS: Acetaminophen 500 MG Tablet 1000 MG PO ×3 (06:21→22:35)
[2023-05-21] MEDS: oxyCODONE 5 MG Tablet 2.5 MG PO ×2 (07:45→22:36)
[2023-05-21] MEDS: Potassium Chloride Oral Tablet 20 MEQ PO ×2 (07:46→17:22)
[2023-05-21] MEDS: Cholecalciferol (VIT D3) 25 MCG TABLET (1,000 UNITS) PO (07:48)
[2023-05-21] MEDS: Pantoprazole Sodium 40 MG Tablet PO ×2 (07:49→22:36)
[2023-05-21] MEDS: Miconazole Nitrate 43 GM Bottle 1 APPLIC TOPICAL ×2 (07:50→22:33)
[2023-05-21] MEDS: Citalopram 20 MG Tablet PO (07:50)
[2023-05-21] MEDS: Menthol/Lanolin/Calamine/Znox 113 GM Tube 1 APPLIC TOPICAL ×2 (07:51→22:33)
[2023-05-21] MEDS: Ensure Plus High Protein 120 ML LIQUID PO (07:53)
[2023-05-21] MEDS: Ceftriaxone 2 GM in 0.9% Normal Saline (50mL MB+) 50 ML IV (09:17)
[2023-05-21] MEDS: 0.9% Saline Lock 10 ML Syringe IV ×2 (09:17→22:40)
[2023-05-21] MEDS: Ascorbic Acid 500 MG Tablet PO (13:06)
[2023-05-21] MEDS: Ferrous Sulfate 325 MG Tablet PO (13:06)
[2023-05-21 14:10] VITALS: BP 115/68; PULSE 98; RESP 16; TEMP 36.7; O2SAT 96
--- NOTE | 2023-05-21 14:27 | NURSING ---
AID CAME TO THIS NURSE AND STATED THAT SHE THINKS PT HAS C/DIFF AND DESCRIBED IT. PLACED PT IN PRECAUTIONS,MESSAGED DR. CRAWFORD AND ORDER WAS PUT IN FOR STOOL SAMPLE.
[2023-05-21] MEDS: OLANZapine 2.5 MG Tablet 7.5 MG PO (22:38)
[2023-05-21] MEDS: Pravastatin 40 MG Tablet PO (22:38)
[2023-05-22] MEDS: Ursodiol 250 MG Tablet PO ×2 (06:51→17:13)
[2023-05-22] MEDS: Doxycycline 100 MG CAPSULE PO ×2 (06:51→17:12)
[2023-05-22] MEDS: Acetaminophen 500 MG Tablet 1000 MG PO ×3 (06:51→21:43)
[2023-05-22] MEDS: APIXABAN 2.5 MG TABLET (WCH) PO ×2 (06:51→17:12)
[2023-05-22] MEDS: Carbidopa/Levodopa 25/100 Tablet PO ×3 (06:52→21:43)
[2023-05-22] MEDS: Levothyroxine 75 MCG Tablet PO (06:52)
[2023-05-22] MEDS: Citalopram 20 MG Tablet PO (08:19)
[2023-05-22] MEDS: Cholecalciferol (VIT D3) 25 MCG TABLET (1,000 UNITS) PO (08:19)
[2023-05-22] MEDS: Pantoprazole Sodium 40 MG Tablet PO ×2 (08:19→21:43)
[2023-05-22] MEDS: Potassium Chloride Oral Tablet 20 MEQ PO ×2 (08:19→17:12)
[2023-05-22] MEDS: Ensure Plus High Protein 120 ML LIQUID PO (08:22)
[2023-05-22] MEDS: Miconazole Nitrate 43 GM Bottle 1 APPLIC TOPICAL ×2 (08:25→21:43)
[2023-05-22] MEDS: Menthol/Lanolin/Calamine/Znox 113 GM Tube 1 APPLIC TOPICAL ×2 (08:26→21:47)
--- NOTE | 2023-05-22 08:37 | NURSING ---
PICC dressing and end cap change to both ports completed. Strict aseptic technique utilized. Insertion site without redness, warmth, or swelling. Pt tolerated well. Both lumens w/ good blood return.
[2023-05-22] MEDS: 0.9% Saline Lock 10 ML Syringe IV ×2 (10:44→21:42)
[2023-05-22] MEDS: Ceftriaxone 2 GM in 0.9% Normal Saline (50mL MB+) 50 ML IV (10:47)
[2023-05-22] MEDS: 0.9% Normal Saline (250mL Bag) 250 ML 15 ML IV (11:30)
[2023-05-22] MEDS: Ascorbic Acid 500 MG Tablet PO (11:31)
[2023-05-22] MEDS: Ferrous Sulfate 325 MG Tablet PO (11:31)
[2023-05-22 13:32] VITALS: BP 115/64; PULSE 88; RESP 18; TEMP 36.5; O2SAT 92
--- NOTE | 2023-05-22 16:18 | NURSING ---
WOUND VAC CHANGED TO PT LEFT HIP. NO S/S OF INFECTION. VAC HAS GOOD SEAL AND SUCTION AT 125. PT TOLERATED WELL.
[2023-05-22 19:55] VITALS: PULSE 90; RESP 18; O2SAT 93
[2023-05-22] MEDS: oxyCODONE 5 MG Tablet 2.5 MG PO (19:57)
[2023-05-22] MEDS: Pravastatin 40 MG Tablet PO (21:43)
[2023-05-22] MEDS: OLANZapine 2.5 MG Tablet 7.5 MG PO (21:44)
[2023-05-23 05:55] LABS: Hematocrit 30.2 % (37-47); Hemoglobin 8.9 g/dL (12.0-15.0); Mean Corp Hgb Conc 29.5 g/dL (32-36); Mean Corpuscular Hgb 28.4 pg (27.0-32.0); Mean Corpuscular Volume 96.5 fL (81-99); Mean Platelet Vol. 10.5 fl (6.2-12.0); Platelet Count 283 K/mm3 (150-450); RBC Distribution Width CV 17.5 % (11.6-14.6); RBC Distribution Width SD 62.4 fl (35.1-43.9); Red Blood Count 3.13 M/mm3 (4.2-5.4); White Blood Count 11.4 K/mm3 (4.4-11.0)
[2023-05-23] MEDS: Levothyroxine 75 MCG Tablet PO (06:00)
[2023-05-23] MEDS: APIXABAN 2.5 MG TABLET (WCH) PO ×2 (06:00→17:37)
[2023-05-23] MEDS: Carbidopa/Levodopa 25/100 Tablet PO ×3 (06:00→20:54)
[2023-05-23] MEDS: Doxycycline 100 MG CAPSULE PO ×2 (06:00→17:37)
[2023-05-23] MEDS: Ursodiol 250 MG Tablet PO ×2 (06:00→17:56)
[2023-05-23] MEDS: Acetaminophen 500 MG Tablet 1000 MG PO ×3 (06:01→20:53)
[2023-05-23] MEDS: Senna/Docusate Sodium 1 Tablet 2 TABLET PO ×2 (06:02→08:58)
[2023-05-23 06:10] VITALS: PULSE 92; RESP 16; O2SAT 94
[2023-05-23 06:25] LABS: Anion Gap 3 (5-15); BUN 8 mg/dL (7-18); BUN/Creat Ratio 11.8 RATIO (10-20); Chloride 107 mmol/L (98-107); Creatinine, Serum 0.68 mg/dL (0.55-1.02); EST Glomerular Filtration Rate 90 mL/min (>60); Est Glom Filt Rate - Afr Amer 109 mL/min (>60); Estimated Creatinine Clearance 40.83 ml/min; Glucose 89 mg/dL (74-106); Potassium 3.8 mmol/L (3.5-5.1); Sodium Level 139 mmol/L (136-145)
[2023-05-23] MEDS: Ceftriaxone 2 GM in 0.9% Normal Saline (50mL MB+) 50 ML IV (08:57)
[2023-05-23] MEDS: 0.9% Saline Lock 10 ML Syringe IV (08:57)
[2023-05-23] MEDS: Ensure Plus High Protein 120 ML LIQUID PO (08:57)
[2023-05-23] MEDS: Cholecalciferol (VIT D3) 25 MCG TABLET (1,000 UNITS) PO (08:58)
[2023-05-23] MEDS: Potassium Chloride Oral Tablet 20 MEQ PO ×2 (08:58→17:37)
[2023-05-23] MEDS: Citalopram 20 MG Tablet PO (08:59)
[2023-05-23] MEDS: Pantoprazole Sodium 40 MG Tablet PO ×2 (09:06→20:54)
[2023-05-23] MEDS: oxyCODONE 5 MG Tablet 2.5 MG PO (10:11)
[2023-05-23] MEDS: Miconazole Nitrate 43 GM Bottle 1 APPLIC TOPICAL ×2 (10:13→20:56)
[2023-05-23] MEDS: Menthol/Lanolin/Calamine/Znox 113 GM Tube 1 APPLIC TOPICAL ×2 (10:14→20:55)
[2023-05-23 10:23] VITALS: BMI 29.1
[2023-05-23] MEDS: Ferrous Sulfate 325 MG Tablet PO (11:05)
[2023-05-23] MEDS: Ascorbic Acid 500 MG Tablet PO (11:05)
--- NOTE | 2023-05-23 15:18 | WOUNDNOTE ---
Wound VAC dressing intact to the left hip. good seal noted at 125mmHg low cont suction. therapy plans to shower patient in the am. this nurse will change left hip dressing after pts shower. pt aware of plan. denies further needs at this time.
[2023-05-23 15:22] VITALS: BP 100/54; PULSE 100; RESP 16; TEMP 36.4; O2SAT 93
[2023-05-23] MEDS: Pravastatin 40 MG Tablet PO (20:53)
[2023-05-23] MEDS: OLANZapine 2.5 MG Tablet 7.5 MG PO (20:55)
[2023-05-24] MEDS: APIXABAN 2.5 MG TABLET (WCH) PO ×2 (05:06→17:56)
[2023-05-24] MEDS: Ursodiol 250 MG Tablet PO ×2 (05:06→17:56)
[2023-05-24] MEDS: Levothyroxine 75 MCG Tablet PO (05:06)
[2023-05-24] MEDS: Acetaminophen 500 MG Tablet 1000 MG PO ×3 (05:06→21:54)
[2023-05-24] MEDS: Carbidopa/Levodopa 25/100 Tablet PO ×3 (05:06→21:55)
[2023-05-24] MEDS: Doxycycline 100 MG CAPSULE PO ×2 (05:06→21:55)
[2023-05-24 08:09] LABS: Hematocrit 35.6 % (37-47); Hemoglobin 10.5 g/dL (12.0-15.0)
[2023-05-24] MEDS: Cholecalciferol (VIT D3) 25 MCG TABLET (1,000 UNITS) PO (08:32)
[2023-05-24] MEDS: Potassium Chloride Oral Tablet 20 MEQ PO ×2 (08:32→17:56)
[2023-05-24] MEDS: Aspirin E.C. 81 MG Tablet PO (08:32)
[2023-05-24] MEDS: Ensure Plus High Protein 120 ML LIQUID PO ×2 (08:34→17:59)
[2023-05-24] MEDS: 0.9% Normal Saline (250mL Bag) 250 ML 15 ML IV (09:51)
[2023-05-24] MEDS: Menthol/Lanolin/Calamine/Znox 113 GM Tube 1 APPLIC TOPICAL ×2 (09:52→21:55)
[2023-05-24] MEDS: Ceftriaxone 2 GM in 0.9% Normal Saline (50mL MB+) 50 ML IV (09:55)
[2023-05-24] MEDS: Citalopram 20 MG Tablet PO (10:02)
[2023-05-24] MEDS: Pantoprazole Sodium 40 MG Tablet PO ×2 (10:02→21:55)
[2023-05-24] MEDS: Miconazole Nitrate 43 GM Bottle 1 APPLIC TOPICAL ×2 (10:02→21:52)
[2023-05-24] MEDS: 0.9% Saline Lock 10 ML Syringe IV ×2 (10:02→21:56)
--- NOTE | 2023-05-24 10:21 | WOUNDNOTE ---
wound photo: left hip
[2023-05-24] MEDS: Ascorbic Acid 500 MG Tablet PO (11:19)
[2023-05-24] MEDS: Ferrous Sulfate 325 MG Tablet PO (11:20)
[2023-05-24 15:11] VITALS: BP 99/60; PULSE 100; RESP 20; TEMP 36.2; O2SAT 96
--- NOTE | 2023-05-24 16:31 | MDS.RN ---
Information for the mds was obtained from review of the clinical record, interview of resident, staff, and direct observation of resident's care.
[2023-05-24 20:40] VITALS: PULSE 93; RESP 18; O2SAT 95
[2023-05-24] MEDS: OLANZapine 2.5 MG Tablet 7.5 MG PO (21:54)
[2023-05-24] MEDS: Pravastatin 40 MG Tablet PO (21:55)
[2023-05-25] MEDS: Carbidopa/Levodopa 25/100 Tablet PO ×3 (05:42→21:47)
[2023-05-25] MEDS: Acetaminophen 500 MG Tablet 1000 MG PO ×3 (05:42→21:47)
[2023-05-25] MEDS: Levothyroxine 75 MCG Tablet PO (05:42)
[2023-05-25] MEDS: Ursodiol 250 MG Tablet PO ×2 (05:42→17:03)
[2023-05-25 06:03] VITALS: PULSE 82; RESP 16; O2SAT 96
[2023-05-25 06:32] VITALS: O2SAT 96
[2023-05-25 08:26] VITALS: BP 111/63; PULSE 93; RESP 18
[2023-05-25] MEDS: Pantoprazole Sodium 40 MG Tablet PO ×2 (08:28→21:47)
[2023-05-25] MEDS: Ensure Plus High Protein 120 ML LIQUID PO ×3 (08:28→17:03)
[2023-05-25] MEDS: Potassium Chloride Oral Tablet 20 MEQ PO ×2 (08:29→17:04)
[2023-05-25] MEDS: Cholecalciferol (VIT D3) 25 MCG TABLET (1,000 UNITS) PO (08:29)
[2023-05-25] MEDS: Aspirin E.C. 81 MG Tablet PO ×2 (08:30→17:04)
[2023-05-25] MEDS: Doxycycline 100 MG CAPSULE PO ×2 (08:30→21:47)
[2023-05-25] MEDS: Citalopram 20 MG Tablet PO (08:30)
[2023-05-25] MEDS: Menthol/Lanolin/Calamine/Znox 113 GM Tube 1 APPLIC TOPICAL ×2 (08:32→21:44)
[2023-05-25] MEDS: Ceftriaxone 2 GM in 0.9% Normal Saline (50mL MB+) 50 ML IV (09:39)
[2023-05-25] MEDS: Miconazole Nitrate 43 GM Bottle 1 APPLIC TOPICAL ×2 (09:42→21:45)
[2023-05-25] MEDS: Loperamide 2 MG Capsule PO (12:00)
[2023-05-25] MEDS: Ferrous Sulfate 325 MG Tablet PO (12:01)
[2023-05-25] MEDS: Ascorbic Acid 500 MG Tablet PO (12:01)
--- NOTE | 2023-05-25 13:12 | NURSING ---
Addendum entered by France English 05/25/23 13:25: Updated Malena Wound RN, she will remove sutures with wound vac change tomorrow. Original Note: came in today and said appt with Dr. Frances has been cancelled. This RN called spoke with Shaina at ortho office, verbal orders from Dr. Frances for TCU nurse to remove sutures. Next appt w/ Dr. Frances 06/22/23 @3pm.
[2023-05-25 13:24] VITALS: TEMP 36.1
--- NOTE | 2023-05-25 16:28 | CASEMGMT ---
Social Work SW updated pt that new insurance precert was approved - NRD 05/29. Wound vac was approved under new insurance for home. CSI noted pt has $35/weekly cost for IV ATB and supplies at home. Pt appreciative. SW will continue to follow for DC planning. Carmelina Ramirez, LARGE SHEETFED PRESS OPERATOR CLAIM TRAINEE
[2023-05-25] MEDS: Pravastatin 40 MG Tablet PO (21:47)
[2023-05-25] MEDS: OLANZapine 2.5 MG Tablet 7.5 MG PO (21:48)
[2023-05-25] MEDS: Ondansetron ODT 4 MG Tablet PO (21:54)
[2023-05-26] MEDS: Ursodiol 250 MG Tablet PO ×2 (05:53→17:12)
[2023-05-26] MEDS: Acetaminophen 500 MG Tablet 1000 MG PO ×3 (05:53→21:14)
[2023-05-26] MEDS: Levothyroxine 75 MCG Tablet PO (05:53)
[2023-05-26] MEDS: Carbidopa/Levodopa 25/100 Tablet PO ×3 (05:54→21:14)
[2023-05-26] MEDS: Ensure Plus High Protein 120 ML LIQUID PO ×3 (08:37→17:12)
[2023-05-26] MEDS: Miconazole Nitrate 43 GM Bottle 1 APPLIC TOPICAL ×2 (08:38→21:16)
[2023-05-26] MEDS: Cholecalciferol (VIT D3) 25 MCG TABLET (1,000 UNITS) PO (08:39)
[2023-05-26] MEDS: Aspirin E.C. 81 MG Tablet PO ×2 (08:39→17:12)
[2023-05-26] MEDS: Potassium Chloride Oral Tablet 20 MEQ PO ×2 (08:39→17:12)
[2023-05-26] MEDS: Citalopram 20 MG Tablet PO (08:40)
[2023-05-26] MEDS: Pantoprazole Sodium 40 MG Tablet PO ×2 (08:40→21:15)
[2023-05-26] MEDS: Menthol/Lanolin/Calamine/Znox 113 GM Tube 1 APPLIC TOPICAL ×2 (08:40→21:19)
[2023-05-26] MEDS: Doxycycline 100 MG CAPSULE PO ×2 (08:40→21:15)
[2023-05-26] MEDS: Ceftriaxone 2 GM in 0.9% Normal Saline (50mL MB+) 50 ML IV (10:26)
[2023-05-26] MEDS: 0.9% Normal Saline (250mL Bag) 250 ML 15 ML IV (10:32)
[2023-05-26] MEDS: 0.9% Saline Lock 10 ML Syringe IV (10:33)
--- NOTE | 2023-05-26 11:37 | CASEMGMT ---
Social Work Pt requesting to speak with this worker. SW met with pt. Pt requesting to remain in TCU through the duration of her IV ATB with current stop date 06/21. SW agreed as long as insurance continues to approve. Pt expressed understanding. SW will continue to follow for DC planning. Carmelina Ramirez, COMMUNITY HEALTH ADVISOR ENGINEERING MECHANIC
[2023-05-26] MEDS: oxyCODONE 5 MG Tablet 2.5 MG PO (11:43)
[2023-05-26] MEDS: Ferrous Sulfate 325 MG Tablet PO (11:44)
[2023-05-26] MEDS: Ascorbic Acid 500 MG Tablet PO (11:44)
--- NOTE | 2023-05-26 13:17 | NURSING ---
Updated patient that staff member tested covid positive. She did not want family updated.
--- NOTE | 2023-05-26 14:04 | WOUNDNOTE ---
wound photo: left hip
[2023-05-26 16:00] VITALS: BP 110/65; PULSE 104; RESP 18; TEMP 36.1; O2SAT 95
[2023-05-26] MEDS: Senna/Docusate Sodium 1 Tablet 2 TABLET PO (17:12)
[2023-05-26] MEDS: Pravastatin 40 MG Tablet PO (21:14)
[2023-05-26] MEDS: OLANZapine 2.5 MG Tablet 7.5 MG PO (21:14)
[2023-05-27] MEDS: Carbidopa/Levodopa 25/100 Tablet PO ×3 (05:45→23:11)
[2023-05-27] MEDS: Acetaminophen 500 MG Tablet 1000 MG PO ×3 (05:45→23:10)
[2023-05-27] MEDS: Senna/Docusate Sodium 1 Tablet 2 TABLET PO (05:46)
[2023-05-27] MEDS: Levothyroxine 75 MCG Tablet PO (05:46)
[2023-05-27] MEDS: Ursodiol 250 MG Tablet PO ×2 (05:46→17:39)
[2023-05-27] MEDS: Ceftriaxone 2 GM in 0.9% Normal Saline (50mL MB+) 50 ML IV (09:12)
[2023-05-27] MEDS: Potassium Chloride Oral Tablet 20 MEQ PO ×2 (09:13→17:40)
[2023-05-27] MEDS: Ensure Plus High Protein 120 ML LIQUID PO ×3 (09:13→17:39)
[2023-05-27] MEDS: Aspirin E.C. 81 MG Tablet PO ×2 (09:13→17:41)
[2023-05-27] MEDS: Doxycycline 100 MG CAPSULE PO ×2 (09:13→23:11)
[2023-05-27] MEDS: Pantoprazole Sodium 40 MG Tablet PO ×2 (09:14→23:09)
[2023-05-27] MEDS: Cholecalciferol (VIT D3) 25 MCG TABLET (1,000 UNITS) PO (09:15)
[2023-05-27] MEDS: Citalopram 20 MG Tablet PO (09:15)
[2023-05-27] MEDS: Miconazole Nitrate 43 GM Bottle 1 APPLIC TOPICAL ×2 (09:15→23:08)
[2023-05-27] MEDS: Menthol/Lanolin/Calamine/Znox 113 GM Tube 1 APPLIC TOPICAL ×2 (09:17→23:09)
[2023-05-27] MEDS: Ascorbic Acid 500 MG Tablet PO (12:14)
[2023-05-27] MEDS: Ferrous Sulfate 325 MG Tablet PO (12:14)
[2023-05-27 14:20] VITALS: BP 123/55; PULSE 105; RESP 22; TEMP 36.6; O2SAT 95
[2023-05-27] MEDS: OLANZapine 2.5 MG Tablet 7.5 MG PO (23:10)
[2023-05-27] MEDS: Pravastatin 40 MG Tablet PO (23:12)
[2023-05-27] MEDS: 0.9% Saline Lock 10 ML Syringe IV (23:13)
[2023-05-27 23:30] VITALS: O2SAT 97
[2023-05-28] MEDS: Acetaminophen 500 MG Tablet 1000 MG PO ×3 (06:20→22:51)
[2023-05-28] MEDS: Levothyroxine 75 MCG Tablet PO (06:20)
[2023-05-28] MEDS: Carbidopa/Levodopa 25/100 Tablet PO ×3 (06:21→22:51)
[2023-05-28] MEDS: Ursodiol 250 MG Tablet PO ×2 (06:21→18:18)
[2023-05-28 10:24] VITALS: BP 116/64; PULSE 89; RESP 18; O2SAT 98
[2023-05-28] MEDS: Cholecalciferol (VIT D3) 25 MCG TABLET (1,000 UNITS) PO (10:35)
[2023-05-28] MEDS: Doxycycline 100 MG CAPSULE PO ×2 (10:35→22:51)
[2023-05-28] MEDS: Pantoprazole Sodium 40 MG Tablet PO ×2 (10:35→22:52)
[2023-05-28] MEDS: Ensure Plus High Protein 120 ML LIQUID PO ×3 (10:35→18:14)
[2023-05-28] MEDS: Aspirin E.C. 81 MG Tablet PO ×2 (10:35→18:14)
[2023-05-28] MEDS: Potassium Chloride Oral Tablet 20 MEQ PO ×2 (10:35→18:14)
[2023-05-28] MEDS: Miconazole Nitrate 43 GM Bottle 1 APPLIC TOPICAL ×2 (10:35→22:50)
[2023-05-28] MEDS: Citalopram 20 MG Tablet PO (10:35)
[2023-05-28] MEDS: 0.9% Saline Lock 10 ML Syringe IV (10:44)
[2023-05-28] MEDS: 0.9% Normal Saline (250mL Bag) 250 ML 15 ML IV (10:51)
[2023-05-28] MEDS: Ceftriaxone 2 GM in 0.9% Normal Saline (50mL MB+) 50 ML IV (10:52)
[2023-05-28] MEDS: Menthol/Lanolin/Calamine/Znox 113 GM Tube 1 APPLIC TOPICAL (10:53)
[2023-05-28] MEDS: Ferrous Sulfate 325 MG Tablet PO (11:42)
[2023-05-28] MEDS: Ascorbic Acid 500 MG Tablet PO (11:42)
[2023-05-28 16:00] VITALS: BP 116/63; PULSE 97; RESP 16; TEMP 36.3; O2SAT 97
--- NOTE | 2023-05-28 21:27 | NURSING ---
Telephone orders received and read back for a noctural pulse ox in attempt to completely wean pt off O2 at hs and Robitussin 10 ml po every 6 hr PRN cough, pt reported an occasional dry cough to this nurse x 6-7 days.
[2023-05-28 21:30] VITALS: PULSE 95; O2SAT 95
[2023-05-28] MEDS: OLANZapine 2.5 MG Tablet 7.5 MG PO (22:52)
[2023-05-28] MEDS: Pravastatin 40 MG Tablet PO (22:52)
[2023-05-29] MEDS: oxyCODONE 5 MG Tablet 2.5 MG PO ×3 (00:38→19:54)
--- NOTE | 2023-05-29 04:55 | NURSING ---
PICC dressing and end caps to red and purple ports completed after Oxycodone administered early this am. Sterile technique maintained during the dressing change. No redness, warmth, swelling, or drainage to insertion site. Tegaderm CHG dressing and statlock device applied. Both ports w/ good blood return and flush w/ ease. Pt tolerated well.
[2023-05-29] MEDS: guaiFENesin 10 ML UDC (200MG/10ML) PO ×2 (06:06→13:05)
[2023-05-29] MEDS: Carbidopa/Levodopa 25/100 Tablet PO ×3 (06:07→21:32)
[2023-05-29] MEDS: Acetaminophen 500 MG Tablet 1000 MG PO ×3 (06:07→21:32)
[2023-05-29] MEDS: Ursodiol 250 MG Tablet PO ×2 (06:08→17:17)
[2023-05-29] MEDS: Levothyroxine 75 MCG Tablet PO (06:08)
--- NOTE | 2023-05-29 08:15 | CPS ---
Pulled P-ox trend, downloading was delayed, informed RN. Downloaded @9804 and placed on chart, informed RN
[2023-05-29 08:19] VITALS: O2SAT 97
--- NOTE | 2023-05-29 08:19 | CPS ---
Pulled P-ox trend but when I went to download, our license for [employer] software had . Waiting on my boss to pay for new license. will inform
--- NOTE | 2023-05-29 08:40 | NURSING ---
Verbal order received and read back on unit to change Senna-S to 2 tablets po BID PRN constipation per pt request d/t frequent refusal of scheduled doses.
[2023-05-29] MEDS: Potassium Chloride Oral Tablet 20 MEQ PO ×2 (08:55→17:16)
[2023-05-29] MEDS: Cholecalciferol (VIT D3) 25 MCG TABLET (1,000 UNITS) PO (08:55)
[2023-05-29] MEDS: Aspirin E.C. 81 MG Tablet PO ×2 (08:55→17:16)
[2023-05-29] MEDS: Ensure Plus High Protein 120 ML LIQUID PO ×3 (08:55→17:18)
[2023-05-29] MEDS: Miconazole Nitrate 43 GM Bottle 1 APPLIC TOPICAL ×2 (08:56→21:32)
[2023-05-29] MEDS: Citalopram 20 MG Tablet PO (08:56)
[2023-05-29] MEDS: Pantoprazole Sodium 40 MG Tablet PO ×2 (08:56→21:31)
[2023-05-29] MEDS: Menthol/Lanolin/Calamine/Znox 113 GM Tube 1 APPLIC TOPICAL ×2 (08:56→21:33)
[2023-05-29] MEDS: Doxycycline 100 MG CAPSULE PO ×2 (08:56→21:31)
[2023-05-29] MEDS: Ceftriaxone 2 GM in 0.9% Normal Saline (50mL MB+) 50 ML IV (09:11)
[2023-05-29] MEDS: 0.9% Normal Saline (250mL Bag) 250 ML 15 ML IV (09:11)
[2023-05-29] MEDS: 0.9% Saline Lock 10 ML Syringe IV (09:12)
--- NOTE | 2023-05-29 09:16 | WOUNDNOTE ---
wound photo: left hip
[2023-05-29 10:00] VITALS: PULSE 76; RESP 18; O2SAT 97
[2023-05-29] MEDS: Ascorbic Acid 500 MG Tablet PO (12:11)
[2023-05-29] MEDS: Ferrous Sulfate 325 MG Tablet PO (12:11)
--- NOTE | 2023-05-29 14:28 | NURSING ---
Patient had previously stated she had covid vaccine in February at [employer]. Called [facility] and they report she had RSV vaccine in December but no covid shot. Updated patient and she thinks she's had a covid shot recently and doesn't want another at this time.
[2023-05-29 15:42] VITALS: BP 119/62; PULSE 91; RESP 18; TEMP 36.8; O2SAT 92
--- NOTE | 2023-05-29 16:51 | NURSING ---
Kathy from Dr Alba office called back regarding PN vaccines and patient is up to date on all PN vaccines. Dates placed in [employer].
[2023-05-29] MEDS: Albuterol IH (6.7 GM) 1 PUFF INHALER 2 PUFF INHALATION (17:15)
[2023-05-29] MEDS: OLANZapine 2.5 MG Tablet 7.5 MG PO (21:32)
[2023-05-29] MEDS: Pravastatin 40 MG Tablet PO (21:32)
[2023-05-30] MEDS: Levothyroxine 75 MCG Tablet PO (05:54)
[2023-05-30] MEDS: Acetaminophen 500 MG Tablet 1000 MG PO ×3 (05:54→21:04)
[2023-05-30] MEDS: Ursodiol 250 MG Tablet PO ×2 (05:54→17:13)
[2023-05-30] MEDS: Carbidopa/Levodopa 25/100 Tablet PO ×3 (05:54→21:04)
[2023-05-30 06:03] LABS: Absolute Lymphocyte Count 2.82 X10^3/uL (0.83-4.51); Absolute Neutrophil Count 5.5 X10^3/uL (2.0-7.7); Basophil# 0.04 X10^3/uL; Basophil% 0.4 % (0-1); Eosinophil# 0.64 X10^3/uL; Eosinophils% 5.7 % (0-5); Hematocrit 29.7 % (37-47); Hemoglobin 8.9 g/dL (12.0-15.0); Lymphocyte # 2.82 X10^3/ul (0.83-4.51); Mean Corpuscular Hgb 28.5 pg (27.0-32.0); Mean Corpuscular Volume 95.2 fL (81-99); Mean Platelet Vol. 10.9 fl (6.2-12.0); Monocyte# 2.19 X10^3/uL; Monocyte% 19.4 % (0-10); NRBC Flagged by Analyzer 0 % (0-5); Neutrophil # 5.45 X10^3/uL (2.7-7.7); Neutrophil % 48.3 % (47-70); POSITIVE DIFFERENTIAL YES; Platelet Count 276 K/mm3 (150-450); RBC Distribution Width CV 16.4 % (11.6-14.6); RBC Distribution Width SD 57.7 fl (35.1-43.9); Red Blood Count 3.12 M/mm3 (4.2-5.4); White Blood Count 11.3 K/mm3 (4.4-11.0)
[2023-05-30 06:14] LABS: Differential Indicated SCAN CRITERIA MET
[2023-05-30 06:47] LABS: Anion Gap 5 (5-15); BUN 10 mg/dL (7-18); BUN/Creat Ratio 17.3 RATIO (10-20); Calcium,Total 8.6 mg/dL (8.5-10.1); Chloride 107 mmol/L (98-107); Creatinine, Serum 0.58 mg/dL (0.55-1.02); EST Glomerular Filtration Rate 108 mL/min (>60); Est Glom Filt Rate - Afr Amer 131 mL/min (>60); Estimated Creatinine Clearance 40.83 ml/min; Glucose 87 mg/dL (74-106); Potassium 3.8 mmol/L (3.5-5.1); Sodium Level 140 mmol/L (136-145)
[2023-05-30 06:56] LABS: Differential Comment SCANNED
[2023-05-30] MEDS: Ensure Plus High Protein 120 ML LIQUID PO ×3 (08:26→17:12)
[2023-05-30] MEDS: Aspirin E.C. 81 MG Tablet PO ×2 (08:26→17:13)
[2023-05-30] MEDS: Potassium Chloride Oral Tablet 20 MEQ PO ×2 (08:26→17:13)
[2023-05-30] MEDS: Doxycycline 100 MG CAPSULE PO ×2 (08:27→21:04)
[2023-05-30] MEDS: Cholecalciferol (VIT D3) 25 MCG TABLET (1,000 UNITS) PO (08:27)
[2023-05-30] MEDS: Citalopram 20 MG Tablet PO (08:27)
[2023-05-30] MEDS: Pantoprazole Sodium 40 MG Tablet PO ×2 (08:27→21:04)
[2023-05-30] MEDS: Menthol/Lanolin/Calamine/Znox 113 GM Tube 1 APPLIC TOPICAL ×2 (08:28→21:09)
[2023-05-30] MEDS: Miconazole Nitrate 43 GM Bottle 1 APPLIC TOPICAL ×2 (08:28→21:08)
[2023-05-30] MEDS: guaiFENesin 10 ML UDC (200MG/10ML) PO (08:32)
[2023-05-30 09:35] VITALS: BMI 29.1
[2023-05-30] MEDS: 0.9% Saline Lock 10 ML Syringe IV (10:56)
[2023-05-30] MEDS: Ceftriaxone 2 GM in 0.9% Normal Saline (50mL MB+) 50 ML IV (11:00)
[2023-05-30] MEDS: oxyCODONE 5 MG Tablet 2.5 MG PO (11:04)
[2023-05-30] MEDS: Ascorbic Acid 500 MG Tablet PO (11:06)
[2023-05-30] MEDS: Ferrous Sulfate 325 MG Tablet PO (11:06)
[2023-05-30 13:53] VITALS: BP 130/68; PULSE 96; RESP 18; TEMP 36.3; O2SAT 94
[2023-05-30] MEDS: OLANZapine 2.5 MG Tablet 7.5 MG PO (21:04)
[2023-05-30] MEDS: Pravastatin 40 MG Tablet PO (21:04)
[2023-05-31] MEDS: Levothyroxine 75 MCG Tablet PO (05:23)
[2023-05-31] MEDS: Acetaminophen 500 MG Tablet 1000 MG PO ×3 (05:23→21:07)
[2023-05-31] MEDS: Carbidopa/Levodopa 25/100 Tablet PO ×3 (05:23→21:07)
[2023-05-31] MEDS: Ursodiol 250 MG Tablet PO ×2 (05:24→17:05)
[2023-05-31] MEDS: Potassium Chloride Oral Tablet 20 MEQ PO ×2 (08:11→17:05)
[2023-05-31] MEDS: Aspirin E.C. 81 MG Tablet PO ×2 (08:11→17:05)
[2023-05-31] MEDS: Ensure Plus High Protein 120 ML LIQUID PO ×3 (08:11→17:05)
[2023-05-31] MEDS: Cholecalciferol (VIT D3) 25 MCG TABLET (1,000 UNITS) PO (08:12)
[2023-05-31] MEDS: Menthol/Lanolin/Calamine/Znox 113 GM Tube 1 APPLIC TOPICAL ×2 (08:12→22:53)
[2023-05-31] MEDS: Citalopram 20 MG Tablet PO (08:13)
[2023-05-31] MEDS: Miconazole Nitrate 43 GM Bottle 1 APPLIC TOPICAL ×2 (08:13→21:07)
[2023-05-31] MEDS: Pantoprazole Sodium 40 MG Tablet PO ×2 (08:13→21:07)
[2023-05-31] MEDS: Doxycycline 100 MG CAPSULE PO ×2 (08:13→21:07)
[2023-05-31] MEDS: Loperamide 2 MG Capsule PO (08:21)
[2023-05-31] MEDS: oxyCODONE 5 MG Tablet 2.5 MG PO ×2 (08:21→17:05)
--- NOTE | 2023-05-31 10:22 | CASEMGMT ---
Social Work SW noted to pt advanced directives are not file. Pt agreed to have provide copies. Carmelina Ramirez, TALENT ACQUISITION ADMINISTRATOR SCRAP YARD WORKER
[2023-05-31] MEDS: 0.9% Saline Lock 10 ML Syringe IV ×3 (10:24→21:06)
[2023-05-31] MEDS: Ceftriaxone 2 GM in 0.9% Normal Saline (50mL MB+) 50 ML IV (10:25)
[2023-05-31] MEDS: Ascorbic Acid 500 MG Tablet PO (11:10)
[2023-05-31] MEDS: Ferrous Sulfate 325 MG Tablet PO (11:10)
[2023-05-31] MEDS: Albuterol IH (6.7 GM) 1 PUFF INHALER 2 PUFF INHALATION (11:10)
[2023-05-31 14:14] LABS: Pathologist Review Reviewed
[2023-05-31 14:49] VITALS: BP 114/59; PULSE 97; RESP 16; TEMP 36.3; O2SAT 94
[2023-05-31] MEDS: OLANZapine 2.5 MG Tablet 7.5 MG PO (21:07)
[2023-05-31] MEDS: Pravastatin 40 MG Tablet PO (21:07)
[2023-06-01] MEDS: guaiFENesin 10 ML UDC (200MG/10ML) PO (01:07)
[2023-06-01] MEDS: Carbidopa/Levodopa 25/100 Tablet PO ×3 (05:41→21:00)
[2023-06-01] MEDS: Ursodiol 250 MG Tablet PO ×2 (05:41→17:25)
[2023-06-01] MEDS: Acetaminophen 500 MG Tablet 1000 MG PO ×3 (05:41→20:57)
[2023-06-01] MEDS: Levothyroxine 75 MCG Tablet PO (05:41)
[2023-06-01] MEDS: Loperamide 2 MG Capsule PO (06:47)
[2023-06-01] MEDS: oxyCODONE 5 MG Tablet 2.5 MG PO ×2 (06:47→20:56)
[2023-06-01] MEDS: Ensure Plus High Protein 120 ML LIQUID PO ×3 (09:52→17:23)
[2023-06-01] MEDS: Potassium Chloride Oral Tablet 20 MEQ PO ×2 (09:53→17:24)
[2023-06-01] MEDS: Aspirin E.C. 81 MG Tablet PO ×2 (09:53→17:24)
[2023-06-01] MEDS: Cholecalciferol (VIT D3) 25 MCG TABLET (1,000 UNITS) PO (09:54)
[2023-06-01] MEDS: Citalopram 20 MG Tablet PO (09:54)
[2023-06-01] MEDS: Miconazole Nitrate 43 GM Bottle 1 APPLIC TOPICAL ×2 (09:55→21:01)
[2023-06-01] MEDS: Menthol/Lanolin/Calamine/Znox 113 GM Tube 1 APPLIC TOPICAL ×2 (09:55→21:00)
[2023-06-01] MEDS: 0.9% Saline Lock 10 ML Syringe IV (10:02)
[2023-06-01] MEDS: Ceftriaxone 2 GM in 0.9% Normal Saline (50mL MB+) 50 ML IV (10:06)
[2023-06-01] MEDS: Pantoprazole Sodium 40 MG Tablet PO ×2 (10:08→20:57)
[2023-06-01] MEDS: Doxycycline 100 MG CAPSULE PO ×2 (10:09→21:00)
[2023-06-01] MEDS: Ferrous Sulfate 325 MG Tablet PO (11:09)
[2023-06-01] MEDS: Ascorbic Acid 500 MG Tablet PO (11:09)
[2023-06-01 16:00] VITALS: BP 117/59; PULSE 100; RESP 16; TEMP 36.3; O2SAT 91
[2023-06-01] MEDS: OLANZapine 2.5 MG Tablet 7.5 MG PO (20:58)
[2023-06-01] MEDS: Pravastatin 40 MG Tablet PO (21:00)
[2023-06-01 21:14] VITALS: O2SAT 96
[2023-06-02] MEDS: Carbidopa/Levodopa 25/100 Tablet PO ×3 (05:38→21:05)
[2023-06-02] MEDS: Levothyroxine 75 MCG Tablet PO (05:38)
[2023-06-02] MEDS: Acetaminophen 500 MG Tablet 1000 MG PO ×3 (05:38→21:04)
[2023-06-02] MEDS: Ursodiol 250 MG Tablet PO ×2 (05:50→17:33)
[2023-06-02] MEDS: oxyCODONE 5 MG Tablet 2.5 MG PO ×3 (06:20→21:05)
[2023-06-02 06:37] VITALS: O2SAT 94
[2023-06-02 08:49] LABS: Anion Gap 7 (5-15); BUN 9 mg/dL (7-18); BUN/Creat Ratio 13.5 RATIO (10-20); Calcium,Total 9.3 mg/dL (8.5-10.1); Chloride 107 mmol/L (98-107); Creatinine, Serum 0.67 mg/dL (0.55-1.02); EST Glomerular Filtration Rate 92 mL/min (>60); Est Glom Filt Rate - Afr Amer 111 mL/min (>60); Estimated Creatinine Clearance 59.73 ml/min; Glucose 132 mg/dL (74-106); Potassium 3.8 mmol/L (3.5-5.1); Sodium Level 139 mmol/L (136-145)
[2023-06-02 09:03] LABS: Erythrocyte Sedimentation Rate 49 mm/hr (0-30)
[2023-06-02 09:25] LABS: Absolute Lymphocyte Count 1.78 X10^3/uL (0.83-4.51); Absolute Neutrophil Count 6.4 X10^3/uL (2.0-7.7); Basophil# 0.04 X10^3/uL; Basophil% 0.4 % (0-1); Eosinophil# 0.46 X10^3/uL; Eosinophils% 4.5 % (0-5); Hemoglobin 10.3 g/dL (12.0-15.0); Lymphocyte # 1.78 X10^3/ul (0.83-4.51); Lymphocyte % 17.4 % (19-41); Mean Corp Hgb Conc 30.3 g/dL (32-36); Mean Corpuscular Hgb 28.9 pg (27.0-32.0); Mean Corpuscular Volume 95.2 fL (81-99); Mean Platelet Vol. 10.8 fl (6.2-12.0); Monocyte# 1.39 X10^3/uL; Monocyte% 13.6 % (0-10); NRBC Flagged by Analyzer 0 % (0-5); Neutrophil % 62.5 % (47-70); Platelet Count 319 K/mm3 (150-450); RBC Distribution Width SD 56.3 fl (35.1-43.9); Red Blood Count 3.57 M/mm3 (4.2-5.4); White Blood Count 10.2 K/mm3 (4.4-11.0)
[2023-06-02] MEDS: Potassium Chloride Oral Tablet 20 MEQ PO ×2 (09:35→17:29)
[2023-06-02] MEDS: Aspirin E.C. 81 MG Tablet PO ×2 (09:35→17:29)
[2023-06-02] MEDS: Pantoprazole Sodium 40 MG Tablet PO ×2 (09:36→21:05)
[2023-06-02] MEDS: Doxycycline 100 MG CAPSULE PO ×2 (09:36→21:05)
[2023-06-02] MEDS: Citalopram 20 MG Tablet PO (09:36)
[2023-06-02] MEDS: Ensure Plus High Protein 120 ML LIQUID PO ×3 (09:41→17:29)
[2023-06-02] MEDS: Ceftriaxone 2 GM in 0.9% Normal Saline (50mL MB+) 50 ML IV (09:44)
[2023-06-02] MEDS: 0.9% Saline Lock 10 ML Syringe IV (09:45)
[2023-06-02] MEDS: 0.9% Normal Saline (250mL Bag) 250 ML 100 ML IV (09:45)
[2023-06-02] MEDS: Miconazole Nitrate 43 GM Bottle 1 APPLIC TOPICAL ×2 (09:56→21:07)
[2023-06-02] MEDS: Menthol/Lanolin/Calamine/Znox 113 GM Tube 1 APPLIC TOPICAL ×2 (09:56→21:08)
[2023-06-02] MEDS: Ascorbic Acid 500 MG Tablet PO (11:37)
[2023-06-02] MEDS: Ferrous Sulfate 325 MG Tablet PO (11:38)
[2023-06-02] MEDS: Cholecalciferol (VIT D3) 25 MCG TABLET (1,000 UNITS) PO (11:38)
--- NOTE | 2023-06-02 12:39 | NURSING ---
Prior Authorzation for Left hip MRI without contrast submitted. Case # [id number]
--- NOTE | 2023-06-02 13:04 | NURSING ---
Increased redness and swelling noted to left hip. Dr. Herrmann made aware and NO for MRI to left hip to r/o infection/recurrent abscess and labs.
[2023-06-02 16:00] VITALS: BP 124/73; PULSE 96; RESP 14; TEMP 36.3; O2SAT 93
[2023-06-02] MEDS: OLANZapine 2.5 MG Tablet 7.5 MG PO (21:05)
[2023-06-02] MEDS: Pravastatin 40 MG Tablet PO (21:05)
[2023-06-03] MEDS: Ursodiol 250 MG Tablet PO ×2 (05:10→17:46)
[2023-06-03] MEDS: Levothyroxine 75 MCG Tablet PO (05:10)
[2023-06-03] MEDS: Carbidopa/Levodopa 25/100 Tablet PO ×3 (05:10→22:50)
[2023-06-03] MEDS: Acetaminophen 500 MG Tablet 1000 MG PO ×3 (05:11→22:51)
[2023-06-03] MEDS: Ensure Plus High Protein 120 ML LIQUID PO ×3 (07:58→17:46)
[2023-06-03] MEDS: Cholecalciferol (VIT D3) 25 MCG TABLET (1,000 UNITS) PO (07:59)
[2023-06-03] MEDS: Potassium Chloride Oral Tablet 20 MEQ PO ×2 (07:59→17:46)
[2023-06-03] MEDS: Aspirin E.C. 81 MG Tablet PO ×2 (07:59→17:46)
[2023-06-03] MEDS: Menthol/Lanolin/Calamine/Znox 113 GM Tube 1 APPLIC TOPICAL ×2 (08:00→22:54)
[2023-06-03] MEDS: Miconazole Nitrate 43 GM Bottle 1 APPLIC TOPICAL ×2 (08:01→22:54)
[2023-06-03] MEDS: oxyCODONE 5 MG Tablet 2.5 MG PO ×2 (08:09→17:59)
[2023-06-03] MEDS: Pantoprazole Sodium 40 MG Tablet PO ×2 (09:34→22:50)
[2023-06-03] MEDS: Citalopram 20 MG Tablet PO (09:34)
[2023-06-03] MEDS: Doxycycline 100 MG CAPSULE PO ×2 (09:34→22:53)
[2023-06-03] MEDS: Ceftriaxone 2 GM in 0.9% Normal Saline (50mL MB+) 50 ML IV (09:35)
[2023-06-03] MEDS: 0.9% Saline Lock 10 ML Syringe IV ×3 (09:35→23:02)
[2023-06-03] MEDS: Ferrous Sulfate 325 MG Tablet PO (12:12)
[2023-06-03] MEDS: Ascorbic Acid 500 MG Tablet PO (12:12)
[2023-06-03 13:53] VITALS: BP 122/67; PULSE 91; RESP 16; TEMP 36.3; O2SAT 92
[2023-06-03] MEDS: OLANZapine 2.5 MG Tablet 7.5 MG PO (22:51)
[2023-06-03] MEDS: Pravastatin 40 MG Tablet PO (22:53)
[2023-06-04] MEDS: Acetaminophen 500 MG Tablet 1000 MG PO ×3 (05:54→21:58)
[2023-06-04] MEDS: Carbidopa/Levodopa 25/100 Tablet PO ×3 (06:02→21:59)
[2023-06-04] MEDS: Levothyroxine 75 MCG Tablet PO (06:02)
[2023-06-04] MEDS: Ursodiol 250 MG Tablet PO ×2 (06:02→18:12)
[2023-06-04] MEDS: Potassium Chloride Oral Tablet 20 MEQ PO ×2 (10:04→18:12)
[2023-06-04] MEDS: Ensure Plus High Protein 120 ML LIQUID PO ×3 (10:04→18:12)
[2023-06-04] MEDS: Pantoprazole Sodium 40 MG Tablet PO ×2 (10:04→21:59)
[2023-06-04] MEDS: Aspirin E.C. 81 MG Tablet PO ×2 (10:05→18:12)
[2023-06-04] MEDS: Doxycycline 100 MG CAPSULE PO ×2 (10:05→21:58)
[2023-06-04] MEDS: Citalopram 20 MG Tablet PO (10:05)
[2023-06-04] MEDS: Cholecalciferol (VIT D3) 25 MCG TABLET (1,000 UNITS) PO (10:07)
[2023-06-04] MEDS: Miconazole Nitrate 43 GM Bottle 1 APPLIC TOPICAL ×2 (10:07→22:23)
[2023-06-04] MEDS: Menthol/Lanolin/Calamine/Znox 113 GM Tube 1 APPLIC TOPICAL ×2 (10:08→22:23)
[2023-06-04 10:09] VITALS: BP 110/68; PULSE 82; RESP 16; O2SAT 98
[2023-06-04] MEDS: oxyCODONE 5 MG Tablet 2.5 MG PO (10:25)
[2023-06-04] MEDS: Ceftriaxone 2 GM in 0.9% Normal Saline (50mL MB+) 50 ML IV (10:44)
[2023-06-04] MEDS: 0.9% Normal Saline (250mL Bag) 250 ML 15 ML IV (10:46)
[2023-06-04] MEDS: Ferrous Sulfate 325 MG Tablet PO (12:27)
[2023-06-04] MEDS: Ascorbic Acid 500 MG Tablet PO (12:27)
[2023-06-04 14:10] VITALS: TEMP 36.2
[2023-06-04] MEDS: 0.9% Saline Lock 10 ML Syringe IV (18:14)
[2023-06-04] MEDS: OLANZapine 2.5 MG Tablet 7.5 MG PO (21:59)
[2023-06-04] MEDS: Pravastatin 40 MG Tablet PO (22:01)
[2023-06-05] MEDS: Acetaminophen 500 MG Tablet 1000 MG PO ×3 (06:12→22:14)
[2023-06-05] MEDS: Carbidopa/Levodopa 25/100 Tablet PO ×3 (06:12→22:14)
[2023-06-05] MEDS: Levothyroxine 75 MCG Tablet PO (06:12)
[2023-06-05] MEDS: Ursodiol 250 MG Tablet PO ×2 (06:12→18:21)
[2023-06-05] MEDS: oxyCODONE 5 MG Tablet 2.5 MG PO (09:34)
[2023-06-05] MEDS: Loperamide 2 MG Capsule PO (09:34)
[2023-06-05] MEDS: Cholecalciferol (VIT D3) 25 MCG TABLET (1,000 UNITS) PO (09:35)
[2023-06-05] MEDS: Potassium Chloride Oral Tablet 20 MEQ PO ×2 (09:36→18:20)
[2023-06-05] MEDS: Doxycycline 100 MG CAPSULE PO ×2 (09:36→22:15)
[2023-06-05] MEDS: Aspirin E.C. 81 MG Tablet PO ×2 (09:36→18:20)
[2023-06-05] MEDS: Miconazole Nitrate 43 GM Bottle 1 APPLIC TOPICAL ×2 (09:37→22:17)
[2023-06-05] MEDS: Citalopram 20 MG Tablet PO (09:37)
[2023-06-05] MEDS: Menthol/Lanolin/Calamine/Znox 113 GM Tube 1 APPLIC TOPICAL ×2 (09:38→22:17)
[2023-06-05] MEDS: 0.9% Saline Lock 10 ML Syringe IV (09:39)
[2023-06-05] MEDS: 0.9% Normal Saline (250mL Bag) 250 ML 15 ML IV (09:39)
[2023-06-05] MEDS: Ceftriaxone 2 GM in 0.9% Normal Saline (50mL MB+) 50 ML IV (09:40)
[2023-06-05] MEDS: Pantoprazole Sodium 40 MG Tablet PO ×2 (09:44→22:14)
--- NOTE | 2023-06-05 11:09 | NURSING ---
PICC dressing change completed to double lumen [place]. Pt tolerated well. End caps changed. Both ports with good blood return and each flushed w/ 10 ml NS. Connected to IV ceftriaxone per order. Will continue to monitor.
--- NOTE | 2023-06-05 11:56 | NURSING ---
Joanne from Dr. Frances's office contacted regarding increased redness and swelling noted to patient's left hip and whether we can get an earlier appointment for a f/u. Joanne to call back when able to talk to Dr. Frances. Joanne calls back later, reporting that when patient receives MRI, that any fluid should be aspirated during scan. She also requests when Dr. Forrester last saw patient and how wound is looking. Information given from wound nurse notes and wound pictures and when Dr. Forrester's last visit was. Joanne reports she will call back after she speaks with Dr. Frances. MRI order updated with order to aspirate fluid.
[2023-06-05] MEDS: Ferrous Sulfate 325 MG Tablet PO (12:20)
[2023-06-05] MEDS: Ascorbic Acid 500 MG Tablet PO (12:20)
[2023-06-05] MEDS: Ensure Plus High Protein 120 ML LIQUID PO ×2 (13:54→18:20)
--- NOTE | 2023-06-05 14:02 | NURSING ---
Addendum entered by Joya Gregory 06/05/23 17:07: Able to reach and confirms he can take Kaia to appt on 06/[address] Frances. Original Note: Dr. Frances office calls back and reports Dr. Frances can see patient this week if she wants to be seen. Patient reports she does want to be seen and that should be able to transport her. Appt set up for 06/08/[address] Frances also mentioned CT may be better than MRI for imaging. Dr. Herrmann asked to talk to Dr. Frances to determine orders and Dr. Herrmann orders CT for left hip. Patient made aware of appointment and message left for regarding transport.
[2023-06-05 14:44] VITALS: BP 112/66; PULSE 96; RESP 16; TEMP 36.3; O2SAT 97
--- NOTE | 2023-06-05 14:47 | WOUNDNOTE ---
skin photo: left thigh
--- NOTE | 2023-06-05 14:49 | WOUNDNOTE ---
wound photo: left hip
[2023-06-05] MEDS: Pravastatin 40 MG Tablet PO (22:14)
[2023-06-05] MEDS: OLANZapine 2.5 MG Tablet 7.5 MG PO (22:15)
[2023-06-06] MEDS: Acetaminophen 500 MG Tablet 1000 MG PO ×3 (05:50→21:16)
[2023-06-06] MEDS: 0.9% Saline Lock 10 ML Syringe IV ×2 (05:50→07:54)
[2023-06-06] MEDS: Carbidopa/Levodopa 25/100 Tablet PO ×3 (05:51→21:17)
[2023-06-06] MEDS: Ursodiol 250 MG Tablet PO ×2 (05:51→17:05)
[2023-06-06] MEDS: Levothyroxine 75 MCG Tablet PO (05:51)
[2023-06-06 06:04] LABS: Absolute Lymphocyte Count 2.39 X10^3/uL (0.83-4.51); Absolute Neutrophil Count 6.6 X10^3/uL (2.0-7.7); Basophil# 0.06 X10^3/uL; Basophil% 0.5 % (0-1); Eosinophil# 0.61 X10^3/uL; Hemoglobin 9.9 g/dL (12.0-15.0); Lymphocyte # 2.39 X10^3/ul (0.83-4.51); Lymphocyte % 19.7 % (19-41); Mean Corpuscular Hgb 28.5 pg (27.0-32.0); Mean Corpuscular Volume 95.1 fL (81-99); Mean Platelet Vol. 10.9 fl (6.2-12.0); Monocyte# 2.36 X10^3/uL; Monocyte% 19.4 % (0-10); NRBC Flagged by Analyzer 0 % (0-5); Neutrophil # 6.56 X10^3/uL (2.7-7.7); Neutrophil % 53.9 % (47-70); POSITIVE DIFFERENTIAL YES; Platelet Count 333 K/mm3 (150-450); RBC Distribution Width SD 55.8 fl (35.1-43.9); Red Blood Count 3.47 M/mm3 (4.2-5.4); White Blood Count 12.2 K/mm3 (4.4-11.0)
[2023-06-06 06:13] LABS: Differential Indicated SCAN CRITERIA MET
[2023-06-06 06:24] VITALS: RESP 16
[2023-06-06 06:35] LABS: Anion Gap 6 (5-15); BUN 12 mg/dL (7-18); BUN/Creat Ratio 18.5 RATIO (10-20); Calcium,Total 9.3 mg/dL (8.5-10.1); Chloride 107 mmol/L (98-107); Creatinine, Serum 0.65 mg/dL (0.55-1.02); EST Glomerular Filtration Rate 95 mL/min (>60); Est Glom Filt Rate - Afr Amer 115 mL/min (>60); Estimated Creatinine Clearance 59.73 ml/min; Glucose 89 mg/dL (74-106); Potassium 4.3 mmol/L (3.5-5.1); Sodium Level 141 mmol/L (136-145)
[2023-06-06 07:04] LABS: Differential Comment SCANNED
[2023-06-06] MEDS: Aspirin E.C. 81 MG Tablet PO ×2 (07:48→17:05)
[2023-06-06] MEDS: Cholecalciferol (VIT D3) 25 MCG TABLET (1,000 UNITS) PO (07:48)
[2023-06-06] MEDS: Potassium Chloride Oral Tablet 20 MEQ PO ×2 (07:48→17:05)
[2023-06-06] MEDS: Ensure Plus High Protein 120 ML LIQUID PO ×3 (07:48→17:05)
[2023-06-06] MEDS: Doxycycline 100 MG CAPSULE PO ×2 (07:49→21:17)
[2023-06-06] MEDS: Menthol/Lanolin/Calamine/Znox 113 GM Tube 1 APPLIC TOPICAL ×2 (07:49→21:19)
[2023-06-06] MEDS: Citalopram 20 MG Tablet PO (07:49)
[2023-06-06] MEDS: Pantoprazole Sodium 40 MG Tablet PO ×2 (07:49→21:17)
[2023-06-06] MEDS: Miconazole Nitrate 43 GM Bottle 1 APPLIC TOPICAL ×2 (07:50→21:18)
[2023-06-06] MEDS: Ceftriaxone 2 GM in 0.9% Normal Saline (50mL MB+) 50 ML IV (07:51)
[2023-06-06 10:35] VITALS: BMI 28.9
--- NOTE | 2023-06-06 11:06 | NURSING ---
Addendum entered by France English 06/07/23 11:29: MRI approved. Called [employer] and cancelled pending CT scan. Original Note: Started auth process for CT scan. Request for clinical information to be faxed. Info faxed to #[phone]. Case #[id number]
[2023-06-06] MEDS: Ferrous Sulfate 325 MG Tablet PO (12:27)
[2023-06-06] MEDS: Ascorbic Acid 500 MG Tablet PO (12:27)
[2023-06-06 13:08] LABS: Pathologist Review Reviewed
[2023-06-06 16:00] VITALS: BP 106/66; PULSE 97; RESP 16; TEMP 36.3; O2SAT 92
--- NOTE | 2023-06-06 17:30 | NURSING ---
[facility] that [facility] is approved to have [facility]. Authorization#[id number]. France GARCIA, Charge nurse and JOSE Rausch notified.
[2023-06-06] MEDS: OLANZapine 2.5 MG Tablet 7.5 MG PO (21:16)
[2023-06-06] MEDS: Pravastatin 40 MG Tablet PO (21:17)
[2023-06-07] MEDS: Ursodiol 250 MG Tablet PO ×2 (05:58→18:03)
[2023-06-07] MEDS: Carbidopa/Levodopa 25/100 Tablet PO ×3 (05:58→22:41)
[2023-06-07] MEDS: Acetaminophen 500 MG Tablet 1000 MG PO ×3 (05:58→22:41)
[2023-06-07] MEDS: Levothyroxine 75 MCG Tablet PO (05:58)
[2023-06-07 06:12] LABS: Erythrocyte Sedimentation Rate 47 mm/hr (0-30)
[2023-06-07 06:13] LABS: Absolute Lymphocyte Count 2.37 X10^3/uL (0.83-4.51); Absolute Neutrophil Count 5.8 X10^3/uL (2.0-7.7); Basophil# 0.04 X10^3/uL; Basophil% 0.4 % (0-1); Eosinophil# 0.59 X10^3/uL; Eosinophils% 5.3 % (0-5); Hematocrit 33.4 % (37-47); Hemoglobin 10.4 g/dL (12.0-15.0); Lymphocyte # 2.37 X10^3/ul (0.83-4.51); Lymphocyte % 21.4 % (19-41); Mean Corp Hgb Conc 31.1 g/dL (32-36); Mean Corpuscular Hgb 29.5 pg (27.0-32.0); Mean Corpuscular Volume 94.9 fL (81-99); Mean Platelet Vol. 10.9 fl (6.2-12.0); Monocyte# 2.14 X10^3/uL; Monocyte% 19.3 % (0-10); NRBC Flagged by Analyzer 0 % (0-5); Neutrophil # 5.79 X10^3/uL (2.7-7.7); Neutrophil % 52.1 % (47-70); POSITIVE DIFFERENTIAL YES; Platelet Count 316 K/mm3 (150-450); RBC Distribution Width CV 15.9 % (11.6-14.6); RBC Distribution Width SD 55.5 fl (35.1-43.9); Red Blood Count 3.52 M/mm3 (4.2-5.4); White Blood Count 11.1 K/mm3 (4.4-11.0)
[2023-06-07 06:16] LABS: Differential Indicated SCAN CRITERIA MET
[2023-06-07 06:37] LABS: ALB/GLOB Ratio 0.6 RATIO (0.9-2.4); AST(SGOT) 17 U/L (15-37); Alanine Aminotransfer ALT/SGPT < 6 U/L (13-56); Albumin, Serum 2.5 g/dL (3.2-5.0); Alkaline Phosphatase 231 U/L (45-117); Anion Gap 6 (5-15); BUN 14 mg/dL (7-18); BUN/Creat Ratio 19.5 RATIO (10-20); CRP 7.83 mg/L (0.0-3.0); Chloride 106 mmol/L (98-107); Creatinine, Serum 0.72 mg/dL (0.55-1.02); EST Glomerular Filtration Rate 84 mL/min (>60); Est Glom Filt Rate - Afr Amer 102 mL/min (>60); Estimated Creatinine Clearance 59.49 ml/min; Globulin 4.3 g/dL (2.2-4.2); Glucose 96 mg/dL (74-106); Potassium 4.2 mmol/L (3.5-5.1); Protein, Total 6.8 g/dL (6.4-8.2); Sodium Level 140 mmol/L (136-145)
[2023-06-07] MEDS: Ensure Plus High Protein 120 ML LIQUID PO ×3 (08:31→18:03)
[2023-06-07] MEDS: Potassium Chloride Oral Tablet 20 MEQ PO ×2 (08:31→18:03)
[2023-06-07] MEDS: Aspirin E.C. 81 MG Tablet PO ×2 (08:31→18:03)
[2023-06-07] MEDS: Cholecalciferol (VIT D3) 25 MCG TABLET (1,000 UNITS) PO (08:32)
[2023-06-07] MEDS: Pantoprazole Sodium 40 MG Tablet PO ×2 (08:32→22:42)
[2023-06-07] MEDS: Citalopram 20 MG Tablet PO (08:32)
[2023-06-07] MEDS: Doxycycline 100 MG CAPSULE PO ×2 (08:32→22:42)
[2023-06-07] MEDS: Ceftriaxone 2 GM in 0.9% Normal Saline (50mL MB+) 50 ML IV (08:38)
[2023-06-07] MEDS: 0.9% Saline Lock 10 ML Syringe IV ×2 (08:39→22:44)
[2023-06-07] MEDS: 0.9% Normal Saline (250mL Bag) 250 ML 100 ML IV (08:39)
[2023-06-07] MEDS: Menthol/Lanolin/Calamine/Znox 113 GM Tube 1 APPLIC TOPICAL ×2 (08:48→22:45)
[2023-06-07] MEDS: Miconazole Nitrate 43 GM Bottle 1 APPLIC TOPICAL ×2 (08:49→22:44)
[2023-06-07] MEDS: oxyCODONE 5 MG Tablet 2.5 MG PO (11:43)
--- NOTE | 2023-06-07 12:53 | PCM.PN.ID ---
Physical Exam Narrative Getting around well, no fever, no n/v/d, no issues with picc Const alert and no apparent distress Resp normal air movement and clear to auscultation bilaterally Cardio regular rate and regular rhythm GI soft to palpation, non-tender and non-distended Skin no rashes or lesions noted ID ID: Route of nutrition/ use of supplements: [] Nutritional Intake: [] IV Site: [] Daly Catheter: [] Assessment & Plan Assessment/Plan (1) Infected prosthesis of left hip: PLAN: Taken to OR 05/10/[address] Frances for I&D of post-op seroma. Surg cx showing 1 with strep and 1 with leuconostoc. Cont po doxy and iv ceftriaxone for 6 week course, stop date 06/21/23. After that, plan on long course suppressive po amoxicillin 500mg bid. ID followup in 1 month after discharge. Will follow
[2023-06-07] MEDS: Ascorbic Acid 500 MG Tablet PO (13:15)
[2023-06-07] MEDS: Ferrous Sulfate 325 MG Tablet PO (13:15)
--- NOTE | 2023-06-07 13:56 | WOUNDNOTE ---
Pt has appt in Dr Frances's office tomorrow. will have nursing remove the VAC dressing in the am and place a wet to dry dressing. wound VAC will be reapplied after pt returns from the appt.
[2023-06-07 15:05] VITALS: BP 113/72; PULSE 96; RESP 16; TEMP 37.1; O2SAT 92
--- NOTE | 2023-06-07 15:30 | NURSING ---
Call from Joanne at [facility] asking about patient. Updated her that MRI was done, report is in, patient will see MD tomorrow morning as scheduled.
[2023-06-07] MEDS: OLANZapine 2.5 MG Tablet 7.5 MG PO (22:42)
[2023-06-07] MEDS: Pravastatin 40 MG Tablet PO (22:43)
[2023-06-08] MEDS: Levothyroxine 75 MCG Tablet PO (06:55)
[2023-06-08] MEDS: Carbidopa/Levodopa 25/100 Tablet PO ×3 (06:55→22:04)
[2023-06-08] MEDS: Ursodiol 250 MG Tablet PO ×2 (06:55→17:11)
[2023-06-08] MEDS: Potassium Chloride Oral Tablet 20 MEQ PO ×2 (06:55→17:10)
[2023-06-08] MEDS: Acetaminophen 500 MG Tablet 1000 MG PO ×3 (06:56→22:04)
[2023-06-08] MEDS: Aspirin E.C. 81 MG Tablet PO (06:59)
[2023-06-08] MEDS: Cholecalciferol (VIT D3) 25 MCG TABLET (1,000 UNITS) PO (07:00)
--- NOTE | 2023-06-08 08:00 | NURSING ---
Wound vac dressing removed and replaced with wet to dry dressing topped with ABD for ortho appt. Pt tolerated well.
[2023-06-08] MEDS: Ceftriaxone 2 GM in 0.9% Normal Saline (50mL MB+) 50 ML IV (09:53)
[2023-06-08] MEDS: Doxycycline 100 MG CAPSULE PO ×2 (09:54→22:04)
[2023-06-08] MEDS: Citalopram 20 MG Tablet PO (09:54)
[2023-06-08] MEDS: Pantoprazole Sodium 40 MG Tablet PO ×2 (09:54→22:04)
[2023-06-08] MEDS: Menthol/Lanolin/Calamine/Znox 113 GM Tube 1 APPLIC TOPICAL ×2 (10:05→22:05)
[2023-06-08] MEDS: Miconazole Nitrate 43 GM Bottle 1 APPLIC TOPICAL ×2 (10:06→22:05)
--- NOTE | 2023-06-08 10:50 | NURSING ---
Received written and faxed orders from Dr. Frances to have fluid drained from left hip. Spoke with xray, orders faxed down to them.
[2023-06-08] MEDS: Ferrous Sulfate 325 MG Tablet PO (12:07)
[2023-06-08] MEDS: Ascorbic Acid 500 MG Tablet PO (12:07)
--- NOTE | 2023-06-08 13:15 | PCM.OP.PRO ---
Procedure Report Date of Procedure: 06/08/23 Assessment & Plan Assessment/Plan (1) History of revision of total replacement of left hip joint: PLAN: PROCEDURE: Fluoroscopic Guided left hip aspiration ORDERING PROVIDER: Dr. Frances INDICATION: Female, 72 years old. Infected prosthesis of left hip with I&D of postop seroma on 05/10/2023. Patient had MRI on 06/07/2023 for ongoing wound VAC drainage since last MRI on 05/08/2023, with newly developed redness on lateral upper thigh. MRI suggested possible abscess in the left periprosthetic area. PROVIDER: MINDI Hassan PROCEDURE: CONSENT: The risks, benefits, and alternatives to the procedure were explained to the patient. The specific risks of bleeding, infection, and neurovascular injury were detailed and accepted. Witnessed informed consent was obtained. TECHNIQUE: The left hip access site was prepped and draped in sterile fashion. 2% Lidocaine was administered subcutaneously for local anesthesia. A 22-gauge spinal needle was positioned under radiographic fluoroscopic localization. The needle was directed to the area of the presumed fluid collection based on MRI images. However, fluid was unable to be aspirated. The spinal needle was removed, and a dressing was applied. The patient tolerated the procedure well without any immediate complications. IMPRESSION: Unsuccessful fluoroscopic guided left injection. Will discuss the case with the radiologist and possibly utilizing another imaging modality for clear fluid collection localization. Procedures Radiology Radiology Xray Procedures: Inj Asp major Joint - Hip, Knee (left- unsuccessful)
[2023-06-08 15:38] VITALS: BP 112/61; PULSE 102; RESP 16; TEMP 36.4; O2SAT 94
[2023-06-08] MEDS: Ensure Plus High Protein 120 ML LIQUID PO (17:10)
[2023-06-08 20:18] LABS: Bacteria 0 SEEN /hpf (None Seen); Mucous, Urine 0 SEEN /hpf (<or=2+); Red Blood Cells-Urine 0 SEEN /hpf (0-5); Squamous Epithelial Cells - UA 0 SEEN /hpf (5-10); White Blood Cells 0 SEEN /hpf (0-5)
[2023-06-08 20:45] LABS: Color, Urine Yellow (Yellow); Glucose, Dipstick Normal (Normal); Ketone-Dipstick Negative (Negative); Leukocyte Esterase-Dipstick Negative /ul (Negative); Nitrite-Dipstick Negative (Negative); Occult Blood-Urine Negative /ul (Negative); Protein-Dipstick Negative (Negative); Specific Gravity, Urine 1.005 (1.002-1.030); Urine Bilirubin Dipstick Negative (Negative); Urine Clarity Clear (Clear); Urine Urobilinogen Normal (Normal)
[2023-06-08] MEDS: OLANZapine 2.5 MG Tablet 7.5 MG PO (22:04)
[2023-06-08] MEDS: Pravastatin 40 MG Tablet PO (22:04)
[2023-06-09] MEDS: Acetaminophen 500 MG Tablet 1000 MG PO ×3 (06:56→22:41)
[2023-06-09] MEDS: Levothyroxine 75 MCG Tablet PO (06:56)
[2023-06-09] MEDS: Carbidopa/Levodopa 25/100 Tablet PO ×3 (06:57→22:41)
[2023-06-09] MEDS: Ursodiol 250 MG Tablet PO ×2 (06:57→17:50)
--- NOTE | 2023-06-09 08:20 | NURSING ---
Called from [facility], they requesting patient be brought down to try to drain fluid left hip. Patient off floor to procedure.
[2023-06-09] MEDS: Potassium Chloride Oral Tablet 20 MEQ PO ×2 (09:41→17:50)
[2023-06-09] MEDS: Citalopram 20 MG Tablet PO (09:42)
[2023-06-09] MEDS: Doxycycline 100 MG CAPSULE PO ×2 (09:42→22:42)
[2023-06-09] MEDS: Cholecalciferol (VIT D3) 25 MCG TABLET (1,000 UNITS) PO (09:42)
[2023-06-09] MEDS: Menthol/Lanolin/Calamine/Znox 113 GM Tube 1 APPLIC TOPICAL ×2 (09:43→22:42)
[2023-06-09] MEDS: Pantoprazole Sodium 40 MG Tablet PO ×2 (09:43→22:41)
[2023-06-09] MEDS: Miconazole Nitrate 43 GM Bottle 1 APPLIC TOPICAL ×2 (09:43→22:42)
[2023-06-09] MEDS: Ceftriaxone 2 GM in 0.9% Normal Saline (50mL MB+) 50 ML IV (10:00)
[2023-06-09] MEDS: Ascorbic Acid 500 MG Tablet PO (13:13)
[2023-06-09] MEDS: Ferrous Sulfate 325 MG Tablet PO (13:13)
[2023-06-09] MEDS: Ensure Plus High Protein 120 ML LIQUID PO ×2 (13:14→17:50)
[2023-06-09 16:00] VITALS: BP 100/58; PULSE 98; RESP 16; TEMP 36.2; O2SAT 93
[2023-06-09] MEDS: OLANZapine 2.5 MG Tablet 7.5 MG PO (22:41)
[2023-06-09] MEDS: Pravastatin 40 MG Tablet PO (22:41)
[2023-06-10] MEDS: Acetaminophen 500 MG Tablet 1000 MG PO ×3 (05:40→21:50)
[2023-06-10] MEDS: Levothyroxine 75 MCG Tablet PO (05:43)
[2023-06-10] MEDS: Ursodiol 250 MG Tablet PO ×2 (05:43→17:36)
[2023-06-10] MEDS: Carbidopa/Levodopa 25/100 Tablet PO ×3 (05:43→22:01)
[2023-06-10] MEDS: Ceftriaxone 2 GM in 0.9% Normal Saline (50mL MB+) 50 ML IV (09:38)
[2023-06-10] MEDS: Potassium Chloride Oral Tablet 20 MEQ PO ×2 (09:42→17:36)
[2023-06-10] MEDS: Citalopram 20 MG Tablet PO (09:42)
[2023-06-10] MEDS: Cholecalciferol (VIT D3) 25 MCG TABLET (1,000 UNITS) PO (09:42)
[2023-06-10] MEDS: Doxycycline 100 MG CAPSULE PO ×2 (09:42→21:59)
[2023-06-10] MEDS: Pantoprazole Sodium 40 MG Tablet PO ×2 (09:42→22:01)
[2023-06-10] MEDS: Ensure Plus High Protein 120 ML LIQUID PO ×3 (09:44→17:36)
[2023-06-10] MEDS: Miconazole Nitrate 43 GM Bottle 1 APPLIC TOPICAL ×2 (09:45→22:00)
[2023-06-10] MEDS: Menthol/Lanolin/Calamine/Znox 113 GM Tube 1 APPLIC TOPICAL ×2 (09:46→22:00)
[2023-06-10 09:51] VITALS: BP 105/72; PULSE 79; RESP 16; O2SAT 97
[2023-06-10] MEDS: Ferrous Sulfate 325 MG Tablet PO (12:58)
[2023-06-10] MEDS: Ascorbic Acid 500 MG Tablet PO (12:59)
[2023-06-10 16:00] VITALS: BP 162/52; PULSE 92; RESP 20; TEMP 36.5; O2SAT 96
[2023-06-10] MEDS: OLANZapine 2.5 MG Tablet 7.5 MG PO (21:59)
[2023-06-10 22:00] VITALS: PULSE 89; RESP 16; O2SAT 94
[2023-06-10] MEDS: Pravastatin 40 MG Tablet PO (22:00)
[2023-06-11] MEDS: Acetaminophen 500 MG Tablet 1000 MG PO ×3 (05:52→22:58)
[2023-06-11] MEDS: Levothyroxine 75 MCG Tablet PO (05:52)
[2023-06-11] MEDS: Ursodiol 250 MG Tablet PO ×2 (05:53→18:02)
[2023-06-11] MEDS: Carbidopa/Levodopa 25/100 Tablet PO ×3 (05:53→22:59)
[2023-06-11 06:02] VITALS: PULSE 90; RESP 18; O2SAT 98
[2023-06-11] MEDS: Ensure Plus High Protein 120 ML LIQUID PO ×3 (09:10→18:03)
[2023-06-11] MEDS: Potassium Chloride Oral Tablet 20 MEQ PO ×2 (09:11→18:02)
[2023-06-11] MEDS: Cholecalciferol (VIT D3) 25 MCG TABLET (1,000 UNITS) PO (09:11)
[2023-06-11] MEDS: Pantoprazole Sodium 40 MG Tablet PO ×2 (09:11→23:00)
[2023-06-11] MEDS: Doxycycline 100 MG CAPSULE PO ×2 (09:12→22:59)
[2023-06-11] MEDS: Citalopram 20 MG Tablet PO (09:13)
[2023-06-11] MEDS: Miconazole Nitrate 43 GM Bottle 1 APPLIC TOPICAL ×2 (09:13→23:01)
[2023-06-11] MEDS: Menthol/Lanolin/Calamine/Znox 113 GM Tube 1 APPLIC TOPICAL ×2 (09:15→23:01)
[2023-06-11] MEDS: Ceftriaxone 2 GM in 0.9% Normal Saline (50mL MB+) 50 ML IV (10:24)
--- NOTE | 2023-06-11 10:42 | NURSING ---
Addendum entered by Bailey Romero 06/11/23 11:37: pt back in room via w/c with dtr Original Note: pt and dtr off unit to visit in ICU
[2023-06-11] MEDS: Ascorbic Acid 500 MG Tablet PO (12:00)
[2023-06-11] MEDS: Ferrous Sulfate 325 MG Tablet PO (12:00)
[2023-06-11 16:00] VITALS: BP 118/60; PULSE 84; RESP 22; TEMP 36.5; O2SAT 93
[2023-06-11] MEDS: OLANZapine 2.5 MG Tablet 7.5 MG PO (22:58)
[2023-06-11] MEDS: 0.9% Saline Lock 10 ML Syringe IV (23:00)
[2023-06-11] MEDS: Pravastatin 40 MG Tablet PO (23:00)
[2023-06-12] MEDS: Acetaminophen 500 MG Tablet 1000 MG PO ×3 (06:32→21:21)
[2023-06-12] MEDS: Carbidopa/Levodopa 25/100 Tablet PO ×3 (06:32→21:21)
[2023-06-12] MEDS: Levothyroxine 75 MCG Tablet PO (06:33)
[2023-06-12] MEDS: Ursodiol 250 MG Tablet PO ×2 (06:33→17:19)
[2023-06-12] MEDS: Potassium Chloride Oral Tablet 20 MEQ PO ×2 (09:04→17:19)
[2023-06-12] MEDS: Cholecalciferol (VIT D3) 25 MCG TABLET (1,000 UNITS) PO (09:05)
[2023-06-12] MEDS: Doxycycline 100 MG CAPSULE PO ×2 (09:05→21:21)
[2023-06-12] MEDS: Pantoprazole Sodium 40 MG Tablet PO ×2 (09:05→21:21)
[2023-06-12] MEDS: Citalopram 20 MG Tablet PO (09:05)
[2023-06-12] MEDS: 0.9% Normal Saline (250mL Bag) 250 ML 100 ML IV (09:13)
[2023-06-12] MEDS: Ceftriaxone 2 GM in 0.9% Normal Saline (50mL MB+) 50 ML IV (09:13)
[2023-06-12] MEDS: 0.9% Saline Lock 10 ML Syringe IV (09:14)
[2023-06-12] MEDS: Ensure Plus High Protein 120 ML LIQUID PO ×3 (09:36→17:18)
[2023-06-12] MEDS: Miconazole Nitrate 43 GM Bottle 1 APPLIC TOPICAL ×2 (09:36→21:21)
[2023-06-12] MEDS: Menthol/Lanolin/Calamine/Znox 113 GM Tube 1 APPLIC TOPICAL ×2 (09:37→21:22)
[2023-06-12] MEDS: oxyCODONE 5 MG Tablet 2.5 MG PO (11:18)
[2023-06-12] MEDS: Ferrous Sulfate 325 MG Tablet PO (12:15)
[2023-06-12] MEDS: Ascorbic Acid 500 MG Tablet PO (12:16)
[2023-06-12 13:36] VITALS: BP 109/62; PULSE 89; RESP 16; TEMP 36.3; O2SAT 96
--- NOTE | 2023-06-12 15:38 | WOUNDNOTE ---
wound photo: left hip
--- NOTE | 2023-06-12 17:27 | PN.TCU_ITS ---
Subjective Subjective Resident seen, examined for regulatory visit. 3 days prior, resident had ultrasound guided seroma drainage. Fluid cultures negative so far. Resident has no new complaints. Objective Data Objective Data Vital Signs: Vital Signs Temp Pulse Resp BP Pulse Ox O2 Del Method O2 Flow Rate 97.3 F L 89 16 109/62 96 Room Air 1 06/12/23 13:36 06/12/23 13:36 06/12/23 13:36 06/12/23 13:36 06/12/23 13:36 06/12/23 13:36 05/28/23 06:39 Oxygen Flow Rate (L/min) 1 Oxygen Delivery Method Room Air Weight: 74.106 kg Body Mass Index (BMI) 28.9 Intake & Output: Intake and Output for Last 24 Hours 06/10/23 06/11/23 06/12/23 23:59 23:59 23:59 Intake Total 1730 / 1730 1610 / 1610 1230 / 1230 Balance 1730 / 1730 1610 / 1610 1230 / 1230 Medical Nutrition Assessment Dietitian: Malnutrition Criteria Met Start: 05/13/23 13:35 Freq: Status: Active Protocol: Document 05/31/23 10:11 SLA (Rec: 05/31/23 10:11 SLA Desktop) Nutrition Malnutrition Evidence of Malnutrition Exists Yes Malnutrition (moderate): Acute Illness/Injury Evidenced By Suboptimal Energy Intake ( Moderate),Weight Loss (Severe) Intake Problem Increased Nutrient Needs (specify) Etiology (protein) related to wound healing Signs/Symptoms as evidenced by multiple wounds (surgical incision, drain site, moisture-related area). Status Active Problem Clinical Problem Acute Disease or Injury Related Malnutrition Etiology related to decreased ability to consume sufficient energy to meet estimated nutrient needs Signs/Symptoms as evidenced by significant unintentional weight loss of 1 .2% since adm (PO variable at meals). Status Active Problem Recommendation Dietitian Recommendations/Changes Continue with Regular diet Continue ensure plus high protein 120mL 3x/day w/ medpass to aid with wound healing. Will continue to follow the resident, monitor oral intakes and tolerance of ONS, and modify nutrition intervention as needed. Lab / Micro Data 06/07/23 05:13 06/07/23 05:13 Micro: Microbiology 06/08/23 20:00 Urine, Catheterized Urine Culture - Final Culture exhibits no growth. 06/06/23 05:47 Nasal Secretion SARS-CoV-2 Antigen (Rapid) - Final 06/01/23 05:45 Nasal Secretion SARS-CoV-2 Antigen (Rapid) - Final 05/29/23 06:40 Nasal Secretion SARS-CoV-2 Antigen (Rapid) - Final 05/26/23 05:57 Nasal Secretion SARS-CoV-2 Antigen (Rapid) - Final 05/23/23 06:03 Nasal Secretion SARS-CoV-2 Antigen (Rapid) - Final 05/22/23 09:50 Stool Enteric Bacteriology - Final 05/18/23 10:38 Stool Stool Occult Blood (BAILEY) - Final Occult Blood Positive 05/17/23 12:28 Nasal Secretion SARS-CoV-2 Antigen (Rapid) - Final Physical Exam Narrative Getting around well, no fever, no n/v/d, no issues with picc Const alert and no apparent distress General Appearance: cooperative HEENT normocephalic Eyes PERRL and EOMs intact bilaterally Neck supple, no JVD and no carotid bruits Resp normal air movement and clear to auscultation bilaterally Cardio regular rate and regular rhythm GI soft to palpation, non-tender and non-distended Extremity normal capillary refill Extremity Narrative: Left hip wound VAC, drain. General Extremity: Negative for edema Skin no rashes or lesions noted General Skin Exam: no breakdown Psych affect normal Appearance: appropriate Assessment & Plan Assessment/Plan (1) Debility: (2) Seroma after procedure: (3) History of revision of total replacement of left hip joint: (4) Parkinson disease: (5) Depression: (6) Vitamin D deficiency: (7) Iron deficiency anemia: (8) Hypothyroidism: QUALIFIERS: Hypothyroidism type: unspecified Qualified Code(s): E03.9 - Hypothyroidism, unspecified (9) Schizophrenia: QUALIFIERS: Schizophrenia type: unspecified Qualified Code(s): F20.9 - Schizophrenia, unspecified (10) Hypokalemia: (11) Hyperlipidemia: PLAN: Plan 72 year old female with below past medical history hospitalized for left hip hematoma/seroma evacuation, complex wound closure with wound VAC, revision left hip replacement femoral component 05/10/[address] Frances, admitted to TCU with debility, here for rehabilitation, strengthening, prior to discharge home with . * Debility - PT/OT. * Pain - Tylenol 1000mg q8. * Bowel - senna/colace 2 tablets bid, Loperamide 2mg q4h prn. * Adult immunization - Administer pneumonia vaccine, covid vaccine, flu vaccine as appropriate. * DVT prophylaxis - Done with Eliquis. * Shortness of breath - Albutrol 2 puffs q6h prn. * Parkinson Disease - Sinemet 25/100mg tid. * Vitamin D deficiency - D3 25mcg daily. 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 * Left hip infection status post irrigation/debridement - CTX 2gm iv q24 thru 06/21/2023, Doxycycline 100mg bid thru 06/21/2023. * GI prophylaxis - Lactobacillus 1 tablet bid. * Cough - Robitussin 10ml q6h prn. * Nutrition - Ensure Plus 120ml daily. * Iron deficiency anemia - Ferrous sulfate 325mg daily. * Hypothyroidism - Levothyroxine 75mcg daily. * Schizophrenia - Olanzapine 7.5mg qhs, stable chronic senior living use, GDR not recommended. * Nausea - Zofran 4mg q8h prn. * GERD - Pantoprazole 04mg daily. * Hypokalemia - KCL 20meq bid. * Hyperlipidemia - Pravastatin 40mg qhs. * Fatty liver - Ursodiol 250mg bid. * Skin irritation - Calmoseptine topical bid. * Tinea Corporis - Miconazole topical bid.
[2023-06-12] MEDS: OLANZapine 2.5 MG Tablet 7.5 MG PO (21:20)
[2023-06-12] MEDS: Pravastatin 40 MG Tablet PO (21:20)
[2023-06-12 22:00] VITALS: PULSE 86; RESP 16; O2SAT 97
[2023-06-13 05:54] LABS: Absolute Lymphocyte Count 2.55 X10^3/uL (0.83-4.51); Absolute Neutrophil Count 4.5 X10^3/uL (2.0-7.7); Basophil# 0.06 X10^3/uL; Basophil% 0.6 % (0-1); Eosinophil# 0.51 X10^3/uL; Eosinophils% 5.3 % (0-5); Hematocrit 33.5 % (37-47); Hemoglobin 10.1 g/dL (12.0-15.0); Lymphocyte # 2.55 X10^3/ul (0.83-4.51); Lymphocyte % 26.6 % (19-41); Mean Corp Hgb Conc 30.1 g/dL (32-36); Mean Corpuscular Hgb 28.7 pg (27.0-32.0); Mean Corpuscular Volume 95.2 fL (81-99); Mean Platelet Vol. 10.9 fl (6.2-12.0); Monocyte# 1.87 X10^3/uL; Monocyte% 19.5 % (0-10); NRBC Flagged by Analyzer 0 % (0-5); Neutrophil # 4.47 X10^3/uL (2.7-7.7); Neutrophil % 46.5 % (47-70); POSITIVE DIFFERENTIAL YES; Platelet Count 266 K/mm3 (150-450); RBC Distribution Width CV 15.4 % (11.6-14.6); RBC Distribution Width SD 53.1 fl (35.1-43.9); Red Blood Count 3.52 M/mm3 (4.2-5.4); White Blood Count 9.6 K/mm3 (4.4-11.0)
[2023-06-13 06:11] LABS: Anion Gap 4 (5-15); BUN 11 mg/dL (7-18); BUN/Creat Ratio 17.1 RATIO (10-20); Calcium,Total 9.3 mg/dL (8.5-10.1); Chloride 106 mmol/L (98-107); Creatinine, Serum 0.64 mg/dL (0.55-1.02); EST Glomerular Filtration Rate 95 mL/min (>60); Est Glom Filt Rate - Afr Amer 115 mL/min (>60); Estimated Creatinine Clearance 59.49 ml/min; Glucose 89 mg/dL (74-106); Potassium 4.1 mmol/L (3.5-5.1); Sodium Level 138 mmol/L (136-145)
[2023-06-13 06:19] LABS: Differential Indicated SCAN CRITERIA MET
[2023-06-13] MEDS: Levothyroxine 75 MCG Tablet PO (06:34)
[2023-06-13] MEDS: Carbidopa/Levodopa 25/100 Tablet PO ×3 (06:34→22:17)
[2023-06-13] MEDS: Acetaminophen 500 MG Tablet 1000 MG PO ×3 (06:34→22:17)
[2023-06-13] MEDS: Ursodiol 250 MG Tablet PO ×2 (06:34→17:20)
[2023-06-13 06:42] LABS: Differential Comment SCANNED
[2023-06-13] MEDS: Ensure Plus High Protein 120 ML LIQUID PO ×3 (08:37→17:20)
[2023-06-13] MEDS: Cholecalciferol (VIT D3) 25 MCG TABLET (1,000 UNITS) PO (08:38)
[2023-06-13] MEDS: Doxycycline 100 MG CAPSULE PO ×2 (08:38→22:18)
[2023-06-13] MEDS: Pantoprazole Sodium 40 MG Tablet PO ×2 (08:38→22:17)
[2023-06-13] MEDS: Potassium Chloride Oral Tablet 20 MEQ PO ×2 (08:38→17:20)
[2023-06-13] MEDS: Citalopram 20 MG Tablet PO (08:38)
[2023-06-13] MEDS: Menthol/Lanolin/Calamine/Znox 113 GM Tube 1 APPLIC TOPICAL ×2 (08:41→22:18)
[2023-06-13] MEDS: Miconazole Nitrate 43 GM Bottle 1 APPLIC TOPICAL ×2 (08:41→22:18)
[2023-06-13] MEDS: Ceftriaxone 2 GM in 0.9% Normal Saline (50mL MB+) 50 ML IV (09:18)
[2023-06-13] MEDS: 0.9% Normal Saline (250mL Bag) 250 ML 100 ML IV (09:18)
[2023-06-13] MEDS: 0.9 % NaCl (Sterile) Posiflush 10 mL IV (09:19)
[2023-06-13 10:00] VITALS: BMI 28.7
[2023-06-13] MEDS: Ferrous Sulfate 325 MG Tablet PO (13:27)
--- NOTE | 2023-06-13 15:26 | NURSING ---
Patient made aware that PRN oxycodone discontinued. Patient is understanding. Made her aware to let us know if Tylenol ineffective in controlling back pain.
[2023-06-13 15:42] VITALS: BP 96/65; PULSE 96; RESP 12; TEMP 36.8; O2SAT 97
[2023-06-13] MEDS: Pravastatin 40 MG Tablet PO (22:17)
[2023-06-13] MEDS: OLANZapine 2.5 MG Tablet 7.5 MG PO (22:17)
[2023-06-14] MEDS: Acetaminophen 500 MG Tablet 1000 MG PO ×3 (05:50→21:19)
[2023-06-14] MEDS: Levothyroxine 75 MCG Tablet PO (05:50)
[2023-06-14] MEDS: Carbidopa/Levodopa 25/100 Tablet PO ×3 (05:50→21:19)
[2023-06-14] MEDS: Ursodiol 250 MG Tablet PO ×2 (05:50→16:59)
[2023-06-14] MEDS: Ensure Plus High Protein 120 ML LIQUID PO ×3 (07:47→16:59)
[2023-06-14] MEDS: Potassium Chloride Oral Tablet 20 MEQ PO ×2 (07:47→16:57)
[2023-06-14] MEDS: Cholecalciferol (VIT D3) 25 MCG TABLET (1,000 UNITS) PO (07:47)
[2023-06-14] MEDS: Menthol/Lanolin/Calamine/Znox 113 GM Tube 1 APPLIC TOPICAL ×2 (07:48→21:25)
[2023-06-14] MEDS: Citalopram 20 MG Tablet PO (07:48)
[2023-06-14] MEDS: Pantoprazole Sodium 40 MG Tablet PO ×2 (07:49→21:19)
[2023-06-14] MEDS: Miconazole Nitrate 43 GM Bottle 1 APPLIC TOPICAL ×2 (07:49→21:25)
[2023-06-14] MEDS: Doxycycline 100 MG CAPSULE PO ×2 (07:49→21:19)
[2023-06-14 07:52] VITALS: BP 101/60; PULSE 81; RESP 16; TEMP 37; O2SAT 90
[2023-06-14] MEDS: Ceftriaxone 2 GM in 0.9% Normal Saline (50mL MB+) 50 ML IV (09:54)
[2023-06-14] MEDS: Ferrous Sulfate 325 MG Tablet PO (11:40)
[2023-06-14 14:01] VITALS: BP 122/64; PULSE 99; RESP 20; TEMP 36.4; O2SAT 94
--- NOTE | 2023-06-14 15:48 | CASEMGMT ---
Addendum entered by Carmelina Ramirez 06/14/23 15:52: [facility] is not INN with pt's new insurance plan. SW updated pt and offered list of other skilled [facility] agencies. Pt denied and agreed to [facility] whom pt's uses. SW phoned referral to [facility] for PT/OT. Original Note: Social Work SW spoke with pt to discuss DC plans. Informed pt insurance approved through end of IV ATB and pt will DC home 06/22. Pt agreeable. Dtr can transport after work about 1800. Pt confirmed no DME needs outside of wound vac. Pt agreed to [facility] and requested to use [facility], whom pt used prior, for PT/OT. No other concerns noted. SW notified wound nurse of DC date. SW sent referral to [facility] via [facility] for PT/OT. Plan: DC home with 06/22, [facility] PT/OT, wound vac Carmelina Ramirez, [employer]
--- NOTE | 2023-06-14 19:34 | DS.PCM_ITS ---
Providers Date of Admission: 05/12/23 Primary Care Physician: Dr. Raji Herrmann MD Consultations 05/12/23 22:07 Consult: Infectious Disease Routine Consulting Provider: Jabier Forrester Reason for Consult: LEFT HIP ATB MANAGEMENT EMERGENT Consult: No MD Notified: Yes Date Notified: 05/16/23 Time Notified: 09:48 Method of Notification: Answering Service 05/12/23 22:08 Consult: Onc/Wound/director global Routine Comment: Reason for Consult:: WOUND VAC LEFT HIP Reason For Visit: LEFT HIP REVISION Diagnosis Discharge Diagnosis (1) Debility: Status: Acute Code(s): R53.81 - Other malaise (2) Seroma after procedure: Status: Acute (3) History of revision of total replacement of left hip joint: Status: Acute Code(s): Z96.642 - Presence of left artificial hip joint (4) Parkinson disease: Status: Acute Code(s): G20 - Parkinson's disease (5) Depression: Status: Acute Code(s): F32.A - Depression, unspecified (6) Vitamin D deficiency: Status: Acute Code(s): E55.9 - Vitamin D deficiency, unspecified (7) Iron deficiency anemia: Status: Acute Code(s): D50.9 - Iron deficiency anemia, unspecified (8) Hypothyroidism: Status: Chronic Code(s): E03.9 - Hypothyroidism, unspecified Qualifiers: Hypothyroidism type: unspecified Qualified Code(s): E03.9 - Hypo thyroidism, unspecified (9) Schizophrenia: Status: Acute Code(s): F20.9 - Schizophrenia, unspecified Qualifiers: Schizophrenia type: unspecified Qualified Code(s): F20.9 - Schizophrenia, unspecified (10) Hypokalemia: Status: Acute Code(s): E87.6 - Hypokalemia (11) Hyperlipidemia: Status: Acute Code(s): E78.5 - Hyperlipidemia, unspecified Plan 72 year old female with below past medical history hospitalized for left hip hematoma/seroma evacuation, complex wound closure with wound VAC, revision left hip replacement femoral component 05/10/[address] Frances, admitted to TCU with debility, here for rehabilitation, strengthening, prior to discharge home with . * Debility - PT/OT. * Pain - Tylenol 1000mg q8. * Bowel - senna/colace 2 tablets bid, Loperamide 2mg q4h prn. * Adult immunization - Administer pneumonia vaccine, covid vaccine, flu vaccine as appropriate. * DVT prophylaxis - Done with Eliquis. * Shortness of breath - Albutrol 2 puffs q6h prn. * Parkinson Disease - Sinemet 25/100mg tid. * Vitamin D deficiency - D3 25mcg daily. * Depression - Citalopram 20mg daily, stable chronic snf use, GDR not recommended. * Left hip infection status post irrigation/debridement - CTX 2gm iv q24 thru 06/21/2023, Doxycycline 100mg bid thru 06/21/2023. * GI prophylaxis - Lactobacillus 1 tablet bid. * Cough - Robitussin 10ml q6h prn. * Nutrition - Ensure Plus 120ml daily. * Iron deficiency anemia - Ferrous sulfate 325mg daily. * Hypothyroidism - Levothyroxine 75mcg daily. * Schizophrenia - Olanzapine 7.5mg qhs, stable chronic snf use, GDR not recommended. * Nausea - Zofran 4mg q8h prn. * GERD - Pantoprazole 04mg daily. * Hypokalemia - KCL 20meq bid. * Hyperlipidemia - Pravastatin 40mg qhs. * Fatty liver - Ursodiol 250mg bid. * Skin irritation - Calmoseptine topical bid. * Tinea Corporis - Miconazole topical bid. Medications at Discharge Home Medications pravastatin 40 mg tablet 40 mg PO QHS CHOLESTEROL 03/22/17 carbidopa 25 mg-levodopa 100 mg tablet 1 tab PO TID parkinsons 09/13/22 citalopram 40 mg tablet 20 mg PO DAILY DEPRESSION 09/13/22 levothyroxine 75 mcg tablet 75 mcg PO DAILY THYROID 09/13/22 olanzapine 7.5 mg tablet 7.5 mg PO QHS MOOD 09/13/22 omeprazole 40 mg capsule,delayed release 40 mg PO DAILY ACID REFLUX 09/13/22 potassium chloride 20 mEq tablet,extended release(part/cryst) 20 meq PO BID SUPPLEMENT 09/13/22 ferrous sulfate 325 mg (65 mg iron) tablet 325 mg PO DAILY supplimentation 11/24/22 albuterol sulfate 90 mcg/actuation aerosol inhaler 2 inh inhalation Q6H PRN shortness of breath or wheezing 03/22/23 cholecalciferol (vitamin D3) 25 mcg (1,000 unit) capsule (Vitamin D3) 25 mcg PO DAILY SUPPLEMENT 03/22/23 food supplemt, lactose-reduced 0.08 gram-1.5 kcal/mL oral liquid (Ensure Plus High Protein) 120 ml PO DAILY SUPPLEMENT 03/22/23 psyllium seed (sugar) oral powder (Fiber Therapy (psyllium seed-sucrose) oral powder) 1 tbsp PO DAILY SUPPLEMENT 03/22/23 terbinafine HCl 250 mg tablet 250 mg PO DAILY TOE FUNGUS 03/22/23 acetaminophen 500 mg tablet 1,000 mg (2 x 500 mg) PO Q8 pain #0 tabs 04/15/23 ondansetron 4 mg disintegrating tablet 4 mg PO Q8H PRN nausea and vomiting #20 tabs 04/15/23 aspirin 81 mg tablet,delayed release 81 mg PO BID heart health 04/29/23 amoxicillin 875 mg-potassium clavulanate 125 mg tablet 1 tab PO BID antibiotic 12 days #24 tabs 05/03/23 loperamide 2 mg capsule 2 mg PO Q4H PRN PRN DIARRHEA/LOOSE STOOLS 14 days #68 caps 05/03/23 ursodiol 250 mg tablet 250 mg PO BID URINATION #60 tabs 05/05/23 apixaban 5 mg tablet (Eliquis) 2.5 mg (1/2 x 5 mg) PO BID DVT prophylaxis #0 tabs 05/12/23 doxycycline monohydrate 100 mg capsule 100 mg PO BID antibitoic #0 caps 05/12/23 oxycodone 5 mg tablet 2.5 mg (1/2 x 5 mg) PO Q4H PRN PRN Pain Score 4-10 7 days #20 tabs 05/12/23 sennosides 8.6 mg-docusate sodium 50 mg tablet (Stool Softener-Stimulant Laxative) 2 tab PO BID stool softener #0 tabs 05/12/23 Hospital Course Operations - (See below.) Procedures - (See below.) Summary of Care Provided Minutes Spent on Discharge: 35 Hospital Course: 72 year old female with below past medical history hospitalized for left hip hematoma/seroma evacuation, complex wound closure with wound VAC, revision left hip replacement femoral component 05/10/[address] Frances, admitted to TCU with debility, here for rehabilitation, strengthening, prior to discharge home with . 06/09/2023 Successful ultrasound-guided drainage of fluid collection (30mL) in the left lateral thigh. Discharge home with 06/22/2023, [facility] PT/OT, wound VAC. Physical Exam Narrative Getting around well, no fever, no n/v/d, no issues with picc Const alert and no apparent distress General Appearance: cooperative HEENT normocephalic Eyes PERRL and EOMs intact bilaterally Neck supple, no JVD and no carotid bruits Resp normal air movement and clear to auscultation bilaterally Cardio regular rate and regular rhythm GI soft to palpation, non-tender and non-distended Extremity normal capillary refill Extremity Narrative: Left hip wound VAC, drain. General Extremity: Negative for edema Skin no rashes or lesions noted General Skin Exam: no breakdown Psych affect normal Appearance: appropriate Medical Records Data Medical Nutrition Assessment Dietitian: Malnutrition Criteria Met Start: 05/13/23 13:35 Freq: Status: Active Protocol: Document 05/31/23 10:11 [facility] (Rec: 05/31/23 10:11 [facility] Desktop) Nutrition Malnutrition Evidence of Malnutrition Exists Yes Malnutrition (moderate): Acute Illness/Injury Evidenced By Suboptimal Energy Intake ( Moderate),Weight Loss (Severe) Intake Problem Increased Nutrient Needs (specify) Etiology (protein) related to wound healing Signs/Symptoms as evidenced by multiple wounds (surgical incision, drain site, moisture-related area). Status Active Problem Clinical Problem Acute Disease or Injury Related Malnutrition Etiology related to decreased ability to consume sufficient energy to meet estimated nutrient needs Signs/Symptoms as evidenced by significant unintentional weight loss of 1 .2% since adm (PO variable at meals). Status Active Problem Recommendation Dietitian Recommendations/Changes Continue with Regular diet Continue ensure plus high protein 120mL 3x/day w/ medpass to aid with wound healing. Will continue to follow the resident, monitor oral intakes and tolerance of ONS, and modify nutrition intervention as needed. Weight / BMI Weight Weight: 73.527 kg Body Mass Index (BMI) 28.7 ABG / Lab / Microbiology Data 06/13/23 05:25 06/13/23 05:25 Microbiology: Microbiology 06/08/23 20:00 Urine, Catheterized Urine Culture - Final Culture exhibits no growth. 06/06/23 05:47 Nasal Secretion SARS-CoV-2 Antigen (Rapid) - Final 06/01/23 05:45 Nasal Secretion SARS-CoV-2 Antigen (Rapid) - Final 05/29/23 06:40 Nasal Secretion SARS-CoV-2 Antigen (Rapid) - Final 05/26/23 05:57 Nasal Secretion SARS-CoV-2 Antigen (Rapid) - Final 05/23/23 06:03 Nasal Secretion SARS-CoV-2 Antigen (Rapid) - Final 05/22/23 09:50 Stool Enteric Bacteriology - Final 05/18/23 10:38 Stool Stool Occult Blood (BAILEY) - Final Occult Blood Positive 05/17/23 12:28 Nasal Secretion SARS-CoV-2 Antigen (Rapid) - Final D/C Instructions Discharge Diet: No restrictions Discharge Activity: Return to Normal Activity, May Shower and Use Walker Weight Bearing Status: Weight bearing as tolerated Call your doctor if you observe: Fever of 101 or Higher, Inability to urinate, Inability to have a bowel movement, Shortness of breath, Dizziness, Fainting spells, Swelling in the ankles, Chest pain and Uncontrolled pain Additional Instructions: Discharge home with 06/22/2023, [facility] PT/OT, wound VAC. Please Follow Up With: Jorge Frances MD When: As scheduled. Meaningful Use Info Meaningful Use Diagnoses (Choose all that apply): None applicable Discharge Plan Admission Admit Date/Time: 05/12/23 21:53 Primary Reason for Your Visit: Debility. Attending Provider: Raji Herrmann Chi Primary Care Provider: Raji Herrmann Chi Consulting Providers: Jabier Forrester Instructions Additional Instructions / Restrictions: Discharge home with 06/22/2023, [facility] PT/OT, wound VAC. Discharge Orders/Prescriptions Prescriptions: No Action ursodiol 250 mg tablet 250 mg PO BID Qty: 60 2RF pravastatin 40 MG tablet 40 mg PO QHS citalopram 40 mg tablet 20 mg PO DAILY Patient Comments: confirmed with daughter pt is taking 20 mg. olanzapine 7.5 mg tablet 7.5 mg PO QHS potassium chloride 20 mEq tablet,ER particles/crystals 20 meq PO BID levothyroxine 75 mcg tablet 75 mcg PO DAILY carbidopa-levodopa 25-100 mg tablet 1 tab PO TID omeprazole 40 mg capsule,delayed release(DR/EC) 40 mg PO DAILY ferrous sulfate 325 mg (65 mg iron) tablet 325 mg PO DAILY Patient Comments: Take 1 tablet by mouth every morning cholecalciferol (vitamin D3) [Vitamin D3] 25 mcg (1,000 unit) capsule 25 mcg PO DAILY Fiber Therapy(psyl seed-sugar) Powder 1 tbsp PO DAILY albuterol sulfate 90 mcg/actuation HFA aerosol inhaler 2 inh INHALATION Q6H PRN (Reason: shortness of breath or wheezing) Patient Comments: INHALE 2 PUFFS BY MOUTH SIX TIMES DAILY NEEDED FOR SHORTNESS OF BREATH terbinafine HCl 250 mg tablet 250 mg PO DAILY Ensure Plus High Protein 0.08 gram-1.5 kcal/mL Liquid 120 ml PO DAILY acetaminophen 500 mg Tablet 1,000 mg PO Q8 Qty: 0 0RF ondansetron 4 mg tablet,disintegrating 4 mg PO Q8H PRN (Reason: nausea and vomiting) Qty: 20 0RF aspirin 81 mg tablet,delayed release (DR/EC) 81 mg PO BID Hold Instructions: Resume on 05/24/23. Patient will be placed on Eliquis for the first 2 weeks postoperatively. After 2 weeks of Eliquis will begin aspirin 81 mg twice daily for an additional 2 weeks loperamide 2 mg Capsule 2 mg PO Q4H PRN PRN (Reason: DIARRHEA/LOOSE STOOLS) 14 Days Qty: 68 0RF amoxicillin-pot clavulanate 875-125 mg tablet 1 tab PO BID 12 Days Qty: 24 0RF Eliquis 5 mg Tablet 2.5 mg PO BID Qty: 0 0RF Rx Instructions: Eliquis 2.5 mg twice daily for 2 weeks postoperatively for DVT prophylaxis. doxycycline monohydrate 100 mg Capsule 100 mg PO BID Qty: 0 0RF oxycodone 5 mg Tablet 2.5 mg PO Q4H PRN PRN (Reason: Pain Score 4-10) 7 Days Qty: 20 0RF sennosides-docusate sodium [Stool Softener-Stimulant Laxat] 8.6-50 mg Tablet 2 tab PO BID Qty: 0 0RF Rx Instructions: Take until first bowel movement, then as needed Referrals / Follow Up: Jorge Frances MD [Med Staff - Active Staff] - 06/22/23 3:00 pm Raji Herrmann Chi, MD [Primary Care Provider] - (Please schedule same day or next day appt for [facility] to follow. Thank you - Carmelina) Disposition Disposition (needs filled in before D/C Order can be placed): Home Health Service
[2023-06-14 19:45] VITALS: PULSE 91; RESP 16; O2SAT 94
[2023-06-14] MEDS: OLANZapine 2.5 MG Tablet 7.5 MG PO (21:19)
[2023-06-14] MEDS: Pravastatin 40 MG Tablet PO (21:19)
[2023-06-14] MEDS: 0.9 % NaCl (Sterile) Posiflush 10 mL IV (21:21)
[2023-06-15] MEDS: Acetaminophen 500 MG Tablet 1000 MG PO ×3 (05:37→21:23)
[2023-06-15] MEDS: Ursodiol 250 MG Tablet PO ×2 (05:38→17:11)
[2023-06-15] MEDS: Levothyroxine 75 MCG Tablet PO (05:38)
[2023-06-15] MEDS: Carbidopa/Levodopa 25/100 Tablet PO ×3 (05:39→21:22)
[2023-06-15] MEDS: Potassium Chloride Oral Tablet 20 MEQ PO ×2 (08:09→17:11)
[2023-06-15] MEDS: Ensure Plus High Protein 120 ML LIQUID PO ×3 (08:09→17:11)
[2023-06-15] MEDS: Cholecalciferol (VIT D3) 25 MCG TABLET (1,000 UNITS) PO (08:10)
[2023-06-15] MEDS: Citalopram 20 MG Tablet PO (08:10)
[2023-06-15] MEDS: Pantoprazole Sodium 40 MG Tablet PO ×2 (08:10→21:23)
[2023-06-15] MEDS: Miconazole Nitrate 43 GM Bottle 1 APPLIC TOPICAL ×2 (08:11→21:24)
[2023-06-15] MEDS: Menthol/Lanolin/Calamine/Znox 113 GM Tube 1 APPLIC TOPICAL ×2 (08:11→21:23)
[2023-06-15] MEDS: Ceftriaxone 2 GM in 0.9% Normal Saline (50mL MB+) 50 ML IV (09:33)
[2023-06-15] MEDS: Doxycycline 100 MG CAPSULE PO ×2 (09:33→21:22)
[2023-06-15] MEDS: Ferrous Sulfate 325 MG Tablet PO (12:05)
[2023-06-15 14:06] VITALS: BP 104/65; PULSE 93; RESP 15; TEMP 36.6; O2SAT 93
[2023-06-15] MEDS: Pravastatin 40 MG Tablet PO (21:22)
[2023-06-15] MEDS: OLANZapine 2.5 MG Tablet 7.5 MG PO (21:22)
[2023-06-16] MEDS: Carbidopa/Levodopa 25/100 Tablet PO ×3 (06:00→21:39)
[2023-06-16] MEDS: Ursodiol 250 MG Tablet PO ×2 (06:00→17:34)
[2023-06-16] MEDS: Levothyroxine 75 MCG Tablet PO (06:00)
[2023-06-16] MEDS: Acetaminophen 500 MG Tablet 1000 MG PO ×3 (06:01→13:19)
[2023-06-16] MEDS: Ensure Plus High Protein 120 ML LIQUID PO ×3 (08:00→17:32)
[2023-06-16] MEDS: Pantoprazole Sodium 40 MG Tablet PO ×2 (08:03→21:39)
[2023-06-16] MEDS: Cholecalciferol (VIT D3) 25 MCG TABLET (1,000 UNITS) PO (08:04)
[2023-06-16] MEDS: Potassium Chloride Oral Tablet 20 MEQ PO ×2 (08:04→17:33)
[2023-06-16] MEDS: Citalopram 20 MG Tablet PO (08:05)
[2023-06-16] MEDS: Miconazole Nitrate 43 GM Bottle 1 APPLIC TOPICAL ×2 (08:05→21:42)
[2023-06-16] MEDS: Ceftriaxone 2 GM in 0.9% Normal Saline (50mL MB+) 50 ML IV (10:24)
[2023-06-16] MEDS: 0.9 % NaCl (Sterile) Posiflush 10 mL IV (10:24)
[2023-06-16] MEDS: Doxycycline 100 MG CAPSULE PO ×2 (10:27→21:37)
[2023-06-16] MEDS: Menthol/Lanolin/Calamine/Znox 113 GM Tube 1 APPLIC TOPICAL ×2 (10:28→21:42)
[2023-06-16] MEDS: Ferrous Sulfate 325 MG Tablet PO (12:22)
--- NOTE | 2023-06-16 14:22 | PCM.PN.DRR ---
Documented by User: Arnav Zamarripa 06/16/23 14:42 TCU RX Drug Regimen Review Subjective/Objective Subjective/Objective: Subjective: TCU Padmaja note. 72 YOF hospitalized for left hip hematoma/seroma evacuation, complex wound closure with wound VAC, revision left hip replacement femoral component 05/10/[address] Frances. Admitted to TCU with debility for strengthening and rehabilitation. Objective: Allergies linaclotide [From Linzess] Allergy (Mild, Verified 05/10/23 09:17) chest tightness histamine phosphate [From Histatrol] Allergy (Verified 05/10/23 09:17) Unknown Current Medications Generic Name Dose Route Start Last Admin Trade Name Freq PRN Reason Stop Dose Admin Acetaminophen 1,000 mg 05/12/23 22:15 06/16/23 13:19 Acetaminophen 500 Mg Tablet PO 1,000 mg Q8 JENA Administration Albuterol Sulfate 2 puff 05/12/23 22:03 05/31/23 11:10 Albuterol Ih (6.7 Gm) 1 Puff Inhaler INHALATION 2 puff Q6H PRN PRN Administration shortness of breath/wheezing Calamine/Phenol 1 applic 05/13/23 10:00 06/16/23 10:28 Menthol/Lanolin/Calamine/Znox 113 Gm Tube TOPICAL 1 applic BID JENA Administration Protocol Carbidopa/Levodopa 1 tablet 05/12/23 22:15 06/16/23 13:19 Carbidopa/Levodopa 25/100 Tablet PO 1 tablet TID JENA Administration Cholecalciferol 25 mcg 05/13/23 08:00 06/16/23 08:04 Cholecalciferol (Vit D3) 25 Mcg Tablet (1,000 Units) PO 25 mcg DAILYCM JENA Administration Citalopram Hydrobromide 20 mg 05/13/23 10:00 06/16/23 08:05 Citalopram 20 Mg Tablet PO 20 mg DAILY JENA Administration Doxycycline Monohydrate 100 mg 05/24/23 22:00 06/16/23 10:27 Doxycycline 100 Mg Capsule PO 06/21/23 22:01 100 mg BID JENA Administration Ferrous Sulfate 325 mg 05/17/23 12:00 06/16/23 12:22 Ferrous Sulfate 325 Mg Tablet PO 325 mg LUNCH JENA Administration Guaifenesin 10 ml 05/28/23 21:26 06/01/23 01:07 Guaifenesin 10 Ml Udc (200mg/10ml) PO 10 ml Q6H PRN PRN Administration COUGH Ceftriaxone Sodium 2 gm/ 50 mls @ 100 mls/hr 05/16/23 13:40 06/16/23 10:55 Sodium Chloride IV 06/21/23 23:59 Infused Q24 JENA Infusion Sodium Chloride 250 mls @ 15 mls/hr 05/16/23 15:24 06/13/23 10:18 IV 0 mls/hr .[id number] PRN Infusion Additional IVPB Infusion Sodium Chloride 250 mls @ 15 mls/hr 05/16/23 15:24 06/09/23 15:40 IV Infused .[id number] PRN Infusion Saline Flush Lactobacillus Acidophilus 1 tablet 06/02/23 10:00 06/16/23 08:04 Lactobacillus Acidophilus PO 1 tablet BID JENA Administration Levothyroxine Sodium 75 mcg 05/13/23 06:00 06/16/23 06:00 Levothyroxine 75 Mcg Tablet PO 75 mcg 0600 JENA Administration Loperamide HCl 2 mg 05/12/23 22:03 06/05/23 09:34 Loperamide 2 Mg Capsule PO 2 mg Q4H PRN PRN Administration DIARRHEA/LOOSE STOOLS Miconazole Nitrate 1 applic 05/13/23 10:00 06/16/23 08:05 Miconazole Nitrate 43 Gm Bottle TOPICAL 1 applic BID JENA Administration Protocol Nutritional Formula (Lactose Free) 120 ml 05/24/23 17:45 06/16/23 12:23 Ensure Plus High Protein 120 Ml Liquid PO 120 ml TIDCM JENA Administration Olanzapine 7.5 mg 05/12/23 22:15 06/15/23 21:22 Olanzapine 2.5 Mg Tablet PO 7.5 mg QHS JENA Administration Ondansetron HCl 4 mg 05/12/23 22:03 05/25/23 21:54 Ondansetron Odt 4 Mg Tablet PO 4 mg Q8H PRN PRN Administration nausea and vomiting Pantoprazole Sodium 40 mg 06/12/23 22:00 06/16/23 08:03 Pantoprazole Sodium 40 Mg Tablet PO 40 mg BID JENA Administration Potassium Chloride 20 meq 05/12/23 22:15 06/16/23 08:04 Potassium Chloride Oral Tablet 20 Meq PO 20 meq BIDCM JENA Administration Pravastatin Sodium 40 mg 05/12/23 22:15 06/15/23 21:22 Pravastatin 40 Mg Tablet PO 40 mg QHS JENA Administration Senna/Docusate Sodium 2 tablet 05/29/23 08:39 Senna/Docusate Sodium 1 Tablet PO BID PRN constipation Sodium Chloride 10 - 40 ml 05/16/23 15:24 06/16/23 10:24 0.9 % Nacl (Sterile) Posiflush 10 Ml IV 10 ml UD PRN Administration Port access or dressing change Sodium Chloride 10 - 40 ml 05/16/23 15:24 05/22/23 10:44 0.9% Saline Lock 10 Ml Syringe IV 40 ml UD PRN Administration Closed End PICC Flush Ursodiol 250 mg 05/12/23 22:15 06/16/23 06:00 Ursodiol 250 Mg Tablet PO 250 mg BID@0600,1800 JENA Administration Problem List (Updated 06/15/23 @ 00:14 by Salud Last) Iron deficiency anemia (Acute) Vitamin D deficiency (Acute) History of revision of total replacement of left hip joint (Acute) Depression (Acute) Hyperlipidemia (Acute) Debility (Acute) Hypothyroidism (Chronic) Hypokalemia (Acute) Schizophrenia (Acute) Parkinson disease (Acute) Vital Signs Temp Pulse Resp BP Pulse Ox O2 Del Method O2 Flow Rate 97.9 F 93 15 104/65 93 Room Air 1 06/15/23 14:06 06/15/23 14:06 06/15/23 14:06 06/15/23 14:06 06/15/23 14:06 06/15/23 14:06 05/28/23 06:39 Oxygen Flow Rate (L/min) 1 Oxygen Delivery Method Room Air Weight: 73.527 kg Body Mass Index (BMI) 28.7 Sodium 138 mmol/L (136-145) 06/13/23 05:25 Potassium 4.1 mmol/L (3.5-5.1) 06/13/23 05:25 Chloride 106 mmol/L (98-107) 06/13/23 05:25 Carbon Dioxide 28.0 mmol/L (21.0-32.0) 06/13/23 05:25 Anion Gap 4 (5-15) L 06/13/23 05:25 BUN 11 mg/dL (7-18) 06/13/23 05:25 Creatinine 0.64 mg/dL (0.55-1.02) 06/13/23 05:25 Est GFR (MDRD) Af Amer 115 mL/min (>60) 06/13/23 05:25 Est GFR (MDRD) Non-Af 95 mL/min (>60) 06/13/23 05:25 BUN/Creatinine Ratio 17.1 RATIO (10-20) 06/13/23 05:25 Glucose 89 mg/dL (74-106) 06/13/23 05:25 Assessment/Plan: 1. Pain: acetaminophen 1000 mg Q8. Please continue to monitor for pain levels, LFTs (AST/ALT = 17/<6 U/L on 06/07/23), constipation, PRN usage. 2. Bowel: loperamide 2 mg PO Q4H PRN diarrhea and senna/docusate 2T PO BID. The resident has had 5 PRN doses of loperamide and no PRN doses of senna/docusate. The patient's last documented bowel movement was 06/14/23. Please continue to monitor for bowel movements, PRN medication usage, diarrhea and constipation. 3. Left hip infection status post irrigation/debridement: ceftriaxone 2gm IV daily and doxycycline 100 mg PO BID through 06/21/23. Please continue to monitor for resolution of infection, WBC count (WBC = 9.6 K/mm3 on 06/13/23), for fevers (afebrile this admission), for chills, for diarrhea, and for GI distress with doxycycline administration. 4. Shortness of breath: albuterol inhaler 2 puffs Q6H PRN shortness of breath. The resident has used 7 doses of PRN albuterol so far this admission. Please continue to monitor for shortness of breath and PRN usage. 5. Parkinson's disease: carbidopa/levodopa 25/100 mg tablet PO TID before meals. Please continue to monitor for control of PD symptoms, dyskinesias,nausea/vomiting, blood pressures (recent range = 96-162/60-72 mmHg), and for constipation. 6. Hypothyroidism: levothyroxine 75 mcg PO daily. Please continue to monitor for s/s of hypo/hyperthyroidism as well as TSH/T4 levels (TSH = 0.82 uIU/mL on 04/30/23, and free T4 = 1.65 ng/dL on 05/10/16). 7. GERD: pantoprazole 40 mg PO BID. Please continue to monitor for s/s of GERD as well as for diarrhea that could indicate clostridium difficile infection and for s/s of bone resorption such as fractures (BEERs medication). 8. Hyperlipidemia: pravastatin 40 mg PO QHS. Please continue to monitor lipid levels (cholesterol = 142 mg/dL on 02/21/23, and LDL = 59 mg/dL on 02/21/23), as well as LFTs (AST/ALT = 17/<6 U/L on 06/07/23), and for myopathy. 9. Hypokalemia: potassium chloride 20 mEq PO BID. Please continue to monitor potassium levels (K = 4.1 mmol/L on 06/13/23), as well as for GI distress with potassium administration. If GI distress occurs with potassium administration please consider giving with food. 10. Nausea: ondansetron 4 mg PO Q8H PRN nausea. The resident has had 6 PRN doses of ondansetron so far this admission. Please continue to monitor for nausea, PRN medication usage, constipation and headaches. 11. Iron deficiency anemia: ferrous sulfate 325 mg PO lunch. Please continue to monitor iron levels (05/16/23), dark stools, constipation, as well as hemoglobin levels (Hgb = 10.1 g/dL on 06/13/23) and for GI distress with iron tablet administration. 12. Vitamin D deficiency: cholecalciferol 25 mcg PO daily. Please continue to monitor for s/s of vitamin D deficiency as well as vitamin D levels (vitamin D = 53.6 ng/mL on 02/21/23). 13. Fatty liver: ursodiol 250mg PO BID. Please continue to monitor GI side effects and LFTs (AST/ALT = 17/<6 U/L on 06/07/23). 14. Tinea corporis/skin irritation: calmoseptine 1 application topically BID, miconazole nitrate 1 application topically BID. Please continue to monitor for resolution of tinea corporis and for skin irritation/skin integrity. 15. Nutrition: ensure plus high protein 120 mL PO 4 x per day. Please continue to monitor nutritional status. 16. Cough: guaifenesin 10 ml by mouth Q6H PRN cough. The patient has used 4 doses of PRN guaifenesin so far this admission. Please continue to monitor for coughing, PRN medication usage, dizziness and headache. 17. GI prophylaxis: lactobacillus 1 tablet PO BID. Please continue to monitor for GI distress, diarrhea, and constipation. Assessment/Plan for indications treated with psychotropic medications: 1. Depression: citalopram 20 mg PO daily. Please see provider note regarding stable chronic long-term use GDR not recommended. Please continue to monitor for s/s of suicidal ideation (black box warning), falls/fractures (BEERs medication), sodium levels (Na = 138 mmol/L on 06/13/23), for s/s of serotonin syndrome, for nausea, dry mouth, and drowsiness. 2. Schizophrenia: olanzapine 7.5 mg PO QHS. Please see provider note regarding stable chronic long-term use GDR not recommended. Please continue to monitor for s/s of worsening schizophrenia symptoms, dementia (black box warning), for anticholinergic side effects including dry mouth, dry eyes, constipation and delirium, for NMS, sedation, and for s/s of orthostasis. Medical chart and medication regimen reviewed. The following medication irregularities or issues were identified: NA Date Date of Note:: 06/16/23 Documented by User: Dr. Raji Herrmann MD 06/16/23 19:11 TCU RX Drug Regimen Review Provider Comments Provider responsibility Provider Comments to Recommendations by Pharmacy: Agree
[2023-06-16 16:00] VITALS: BP 109/66; PULSE 92; RESP 16; TEMP 36.4; O2SAT 95
[2023-06-16] MEDS: Pravastatin 40 MG Tablet PO (21:38)
[2023-06-16] MEDS: OLANZapine 2.5 MG Tablet 7.5 MG PO (21:39)
[2023-06-17] MEDS: Ursodiol 250 MG Tablet PO ×2 (06:09→16:50)
[2023-06-17] MEDS: Acetaminophen 500 MG Tablet 1000 MG PO ×3 (06:09→22:25)
[2023-06-17] MEDS: Levothyroxine 75 MCG Tablet PO (06:10)
[2023-06-17] MEDS: Carbidopa/Levodopa 25/100 Tablet PO ×3 (06:10→22:27)
[2023-06-17 08:51] VITALS: BP 98/55; PULSE 77; RESP 16; O2SAT 97
[2023-06-17] MEDS: Potassium Chloride Oral Tablet 20 MEQ PO ×2 (08:52→16:50)
[2023-06-17] MEDS: Ensure Plus High Protein 120 ML LIQUID PO ×3 (08:52→16:51)
[2023-06-17] MEDS: Pantoprazole Sodium 40 MG Tablet PO ×2 (08:53→22:27)
[2023-06-17] MEDS: Citalopram 20 MG Tablet PO (08:53)
[2023-06-17] MEDS: Doxycycline 100 MG CAPSULE PO ×2 (08:53→22:26)
[2023-06-17] MEDS: Cholecalciferol (VIT D3) 25 MCG TABLET (1,000 UNITS) PO (08:54)
[2023-06-17] MEDS: Menthol/Lanolin/Calamine/Znox 113 GM Tube 1 APPLIC TOPICAL ×2 (08:57→22:27)
[2023-06-17] MEDS: Miconazole Nitrate 43 GM Bottle 1 APPLIC TOPICAL ×2 (08:57→22:28)
[2023-06-17] MEDS: 0.9% Normal Saline (250mL Bag) 250 ML 15 ML IV (09:01)
[2023-06-17] MEDS: Ceftriaxone 2 GM in 0.9% Normal Saline (50mL MB+) 50 ML IV (09:17)
[2023-06-17] MEDS: 0.9 % NaCl (Sterile) Posiflush 10 mL IV (09:18)
[2023-06-17] MEDS: Ferrous Sulfate 325 MG Tablet PO (12:19)
[2023-06-17 14:12] VITALS: BP 114/63; PULSE 87; RESP 16; TEMP 37; O2SAT 99
[2023-06-17] MEDS: OLANZapine 2.5 MG Tablet 7.5 MG PO (22:26)
[2023-06-17] MEDS: Pravastatin 40 MG Tablet PO (22:27)
[2023-06-18] MEDS: Acetaminophen 500 MG Tablet 1000 MG PO ×3 (05:54→22:35)
[2023-06-18] MEDS: Carbidopa/Levodopa 25/100 Tablet PO ×3 (05:54→22:37)
[2023-06-18] MEDS: Ursodiol 250 MG Tablet PO ×2 (05:54→17:00)
[2023-06-18] MEDS: Levothyroxine 75 MCG Tablet PO (05:55)
[2023-06-18] MEDS: Potassium Chloride Oral Tablet 20 MEQ PO ×2 (08:55→17:00)
[2023-06-18] MEDS: Ensure Plus High Protein 120 ML LIQUID PO ×3 (08:55→17:00)
[2023-06-18] MEDS: Cholecalciferol (VIT D3) 25 MCG TABLET (1,000 UNITS) PO (08:56)
[2023-06-18] MEDS: 0.9 % NaCl (Sterile) Posiflush 10 mL IV ×2 (08:58→22:35)
[2023-06-18] MEDS: Miconazole Nitrate 43 GM Bottle 1 APPLIC TOPICAL ×2 (09:01→22:39)
[2023-06-18] MEDS: Menthol/Lanolin/Calamine/Znox 113 GM Tube 1 APPLIC TOPICAL ×2 (09:01→22:38)
[2023-06-18] MEDS: Doxycycline 100 MG CAPSULE PO ×2 (09:02→22:37)
[2023-06-18] MEDS: Citalopram 20 MG Tablet PO (09:02)
[2023-06-18] MEDS: Pantoprazole Sodium 40 MG Tablet PO ×2 (09:02→22:37)
[2023-06-18] MEDS: Ceftriaxone 2 GM in 0.9% Normal Saline (50mL MB+) 50 ML IV (09:06)
[2023-06-18] MEDS: Ferrous Sulfate 325 MG Tablet PO (11:48)
[2023-06-18 15:30] VITALS: BP 110/73; PULSE 92; RESP 18; TEMP 36.2; O2SAT 94
[2023-06-18] MEDS: OLANZapine 2.5 MG Tablet 7.5 MG PO (22:36)
[2023-06-18] MEDS: Pravastatin 40 MG Tablet PO (22:37)
[2023-06-18] MEDS: Ondansetron ODT 4 MG Tablet PO (23:42)
[2023-06-19] MEDS: Acetaminophen 500 MG Tablet 1000 MG PO ×3 (07:47→21:01)
[2023-06-19] MEDS: Cholecalciferol (VIT D3) 25 MCG TABLET (1,000 UNITS) PO (07:47)
[2023-06-19] MEDS: Carbidopa/Levodopa 25/100 Tablet PO ×3 (07:47→21:01)
[2023-06-19] MEDS: Potassium Chloride Oral Tablet 20 MEQ PO ×2 (07:48→16:44)
[2023-06-19] MEDS: Levothyroxine 75 MCG Tablet PO (07:48)
[2023-06-19] MEDS: Ursodiol 250 MG Tablet PO ×2 (07:48→16:44)
[2023-06-19] MEDS: Ondansetron ODT 4 MG Tablet PO (07:51)
[2023-06-19] MEDS: Ensure Plus High Protein 120 ML LIQUID PO ×3 (07:51→16:44)
[2023-06-19] MEDS: Ceftriaxone 2 GM in 0.9% Normal Saline (50mL MB+) 50 ML IV (08:36)
[2023-06-19] MEDS: Menthol/Lanolin/Calamine/Znox 113 GM Tube 1 APPLIC TOPICAL ×2 (08:37→21:03)
[2023-06-19] MEDS: Miconazole Nitrate 43 GM Bottle 1 APPLIC TOPICAL ×2 (08:37→21:01)
[2023-06-19] MEDS: Pantoprazole Sodium 40 MG Tablet PO ×2 (08:37→21:01)
[2023-06-19] MEDS: Doxycycline 100 MG CAPSULE PO ×2 (08:37→21:01)
[2023-06-19] MEDS: Citalopram 20 MG Tablet PO (08:37)
--- NOTE | 2023-06-19 09:46 | NURSING ---
Call from Kellie at [facility], she reported that testing of fluid from left hip is negative. Updated patient.
--- NOTE | 2023-06-19 10:11 | WOUNDNOTE ---
wound photo: left hip
[2023-06-19] MEDS: Ferrous Sulfate 325 MG Tablet PO (11:47)
[2023-06-19 13:57] VITALS: BP 120/76; PULSE 93; RESP 18; TEMP 36.3; O2SAT 95
[2023-06-19] MEDS: OLANZapine 2.5 MG Tablet 7.5 MG PO (21:00)
[2023-06-19] MEDS: Pravastatin 40 MG Tablet PO (21:01)
[2023-06-20] MEDS: Ursodiol 250 MG Tablet PO ×2 (05:28→17:15)
[2023-06-20] MEDS: Levothyroxine 75 MCG Tablet PO (05:28)
[2023-06-20] MEDS: Acetaminophen 500 MG Tablet 1000 MG PO ×3 (05:29→21:53)
[2023-06-20] MEDS: Carbidopa/Levodopa 25/100 Tablet PO ×3 (05:29→21:53)
[2023-06-20] MEDS: Ensure Plus High Protein 120 ML LIQUID PO ×3 (08:42→17:15)
[2023-06-20] MEDS: Citalopram 20 MG Tablet PO (08:43)
[2023-06-20] MEDS: Cholecalciferol (VIT D3) 25 MCG TABLET (1,000 UNITS) PO (08:43)
[2023-06-20] MEDS: Potassium Chloride Oral Tablet 20 MEQ PO ×2 (08:43→17:15)
[2023-06-20] MEDS: Miconazole Nitrate 43 GM Bottle 1 APPLIC TOPICAL ×2 (08:44→21:58)
[2023-06-20] MEDS: Pantoprazole Sodium 40 MG Tablet PO ×2 (08:44→21:53)
[2023-06-20] MEDS: Menthol/Lanolin/Calamine/Znox 113 GM Tube 1 APPLIC TOPICAL ×2 (08:44→21:55)
[2023-06-20] MEDS: Doxycycline 100 MG CAPSULE PO ×2 (08:44→21:54)
[2023-06-20 08:56] LABS: Absolute Lymphocyte Count 1.76 X10^3/uL (0.83-4.51); Absolute Neutrophil Count 5.1 X10^3/uL (2.0-7.7); Basophil# 0.05 X10^3/uL; Basophil% 0.6 % (0-1); Eosinophil# 0.49 X10^3/uL; Eosinophils% 5.5 % (0-5); Hematocrit 35.5 % (37-47); Hemoglobin 10.8 g/dL (12.0-15.0); Lymphocyte # 1.76 X10^3/ul (0.83-4.51); Lymphocyte % 19.9 % (19-41); Mean Corp Hgb Conc 30.4 g/dL (32-36); Mean Corpuscular Hgb 29.1 pg (27.0-32.0); Mean Corpuscular Volume 95.7 fL (81-99); Mean Platelet Vol. 11.1 fl (6.2-12.0); Monocyte# 1.41 X10^3/uL; NRBC Flagged by Analyzer 0 % (0-5); Neutrophil # 5.07 X10^3/uL (2.7-7.7); Neutrophil % 57.3 % (47-70); Platelet Count 219 K/mm3 (150-450); RBC Distribution Width CV 14.6 % (11.6-14.6); RBC Distribution Width SD 51.3 fl (35.1-43.9); Red Blood Count 3.71 M/mm3 (4.2-5.4); White Blood Count 8.8 K/mm3 (4.4-11.0)
[2023-06-20 09:44] LABS: Anion Gap 8 (5-15); BUN 13 mg/dL (7-18); BUN/Creat Ratio 16.6 RATIO (10-20); Calcium,Total 9.4 mg/dL (8.5-10.1); Chloride 106 mmol/L (98-107); Creatinine, Serum 0.78 mg/dL (0.55-1.02); EST Glomerular Filtration Rate 76 mL/min (>60); Est Glom Filt Rate - Afr Amer 92 mL/min (>60); Estimated Creatinine Clearance 59.27 ml/min; Glucose 133 mg/dL (74-106); Potassium 3.9 mmol/L (3.5-5.1); Sodium Level 137 mmol/L (136-145)
[2023-06-20] MEDS: Ceftriaxone 2 GM in 0.9% Normal Saline (50mL MB+) 50 ML IV (09:49)
[2023-06-20] MEDS: 0.9% Normal Saline (250mL Bag) 250 ML 100 ML IV (09:49)
[2023-06-20] MEDS: 0.9 % NaCl (Sterile) Posiflush 10 mL IV (09:50)
[2023-06-20 09:52] VITALS: BMI 28.4
[2023-06-20] MEDS: Ferrous Sulfate 325 MG Tablet PO (12:30)
--- NOTE | 2023-06-20 12:52 | CASEMGMT ---
Social Work: BIMS score () PHQ (05/24) completed for MDS assessment. JES Craig
--- NOTE | 2023-06-20 12:52 | CASEMGMT ---
Social Work: BIMS score (8/15) PHQ (0/3) completed for MDS assessment. JES Craig
[2023-06-20] MEDS: Loperamide 2 MG Capsule PO (13:52)
[2023-06-20 14:29] VITALS: BP 107/43; PULSE 87; RESP 16; TEMP 36.3; O2SAT 93
--- NOTE | 2023-06-20 18:08 | NURSING ---
Patient c/o burning with urination for a couple days. Dr. Herrmann made aware and NO for UA c&s.
[2023-06-20 18:43] LABS: Bacteria 0 SEEN /hpf (None Seen); Mucous, Urine 0 SEEN /hpf (<or=2+); Red Blood Cells-Urine 0 SEEN /hpf (0-5); Squamous Epithelial Cells - UA 0 SEEN /hpf (5-10); White Blood Cells 0 SEEN /hpf (0-5)
[2023-06-20 18:45] LABS: Color, Urine Yellow (Yellow); Glucose, Dipstick Normal (Normal); Ketone-Dipstick 5 mg/dl (Negative); Leukocyte Esterase-Dipstick Negative /ul (Negative); Nitrite-Dipstick Negative (Negative); Occult Blood-Urine Negative /ul (Negative); Protein-Dipstick 15 mg/dl (Negative); Urine Bilirubin Dipstick Negative (Negative); Urine Clarity Clear (Clear); Urine Urobilinogen Normal (Normal)
[2023-06-20] MEDS: OLANZapine 2.5 MG Tablet 7.5 MG PO (21:52)
[2023-06-20] MEDS: Pravastatin 40 MG Tablet PO (21:53)
[2023-06-21] MEDS: Carbidopa/Levodopa 25/100 Tablet PO ×3 (05:33→21:34)
[2023-06-21] MEDS: Levothyroxine 75 MCG Tablet PO (05:33)
[2023-06-21] MEDS: Acetaminophen 500 MG Tablet 1000 MG PO ×3 (05:33→21:34)
[2023-06-21] MEDS: Ursodiol 250 MG Tablet PO ×2 (05:33→17:21)
--- NOTE | 2023-06-21 07:25 | NURSING ---
Spoke with Dr. Forrester's office to make them aware of increased redness/pain to left hip. Office contacted Dr. Forrester and called back asking if ortho can see patient for the increased redness/pain and this nurse reports patient will be seeing Dr. Frances on 06/22/23. No further orders at this time.
[2023-06-21] MEDS: Ensure Plus High Protein 120 ML LIQUID PO ×3 (08:26→17:21)
[2023-06-21] MEDS: Cholecalciferol (VIT D3) 25 MCG TABLET (1,000 UNITS) PO (08:26)
[2023-06-21] MEDS: Potassium Chloride Oral Tablet 20 MEQ PO ×2 (08:26→17:21)
[2023-06-21] MEDS: Citalopram 20 MG Tablet PO (08:27)
[2023-06-21] MEDS: Pantoprazole Sodium 40 MG Tablet PO ×2 (08:27→21:34)
[2023-06-21] MEDS: Doxycycline 100 MG CAPSULE PO ×2 (08:27→21:34)
[2023-06-21] MEDS: Ferrous Sulfate 325 MG Tablet PO (08:27)
[2023-06-21] MEDS: Miconazole Nitrate 43 GM Bottle 1 APPLIC TOPICAL ×2 (08:29→21:35)
[2023-06-21] MEDS: Menthol/Lanolin/Calamine/Znox 113 GM Tube 1 APPLIC TOPICAL (08:29)
[2023-06-21] MEDS: 0.9 % NaCl (Sterile) Posiflush 10 mL IV (09:25)
[2023-06-21] MEDS: 0.9% Normal Saline (250mL Bag) 250 ML 100 ML IV (09:25)
[2023-06-21] MEDS: Ceftriaxone 2 GM in 0.9% Normal Saline (50mL MB+) 50 ML IV (09:26)
--- NOTE | 2023-06-21 13:51 | PCM.PN.ID ---
Physical Exam Narrative Feeling about the same, no fever, hip is sore, wound vac in place. Const alert and no apparent distress General Appearance: cooperative Resp normal air movement and clear to auscultation bilaterally Cardio regular rate and regular rhythm GI soft to palpation, non-tender and non-distended Skin Skin Narrative: L hip wound vac, no surrounding redness ID ID: Route of nutrition/ use of supplements: [] Nutritional Intake: [] IV Site: [] Daly Catheter: [] Assessment & Plan Assessment/Plan (1) Infected prosthesis of left hip: PLAN: Taken to OR 05/10/[address] Frances for I&D of post-op seroma. Surg cx showing 1 with strep and 1 with leuconostoc. Cont po doxy and iv ceftriaxone for 6 week course, stop date 06/21/23. After that, plan on long course suppressive po amoxicillin 500mg bid. ID followup in 1 month after discharge. Will follow, d/w nursing
[2023-06-21 14:00] VITALS: BP 108/63; PULSE 91; RESP 17; TEMP 36.6; O2SAT 94
--- NOTE | 2023-06-21 15:24 | NURSING ---
Dr. Forrester in to see patient. Not concerned over redness at this time. Okay to d/c home and f/u in a month.
--- NOTE | 2023-06-21 16:47 | NURSING ---
Patient made aware of positive Covid patient on unit and that she will be tested in the AM of 06/22 and of precautions being taken on unit. Denies need for us to call family and that she will make them aware. Patient denies further questions at this time.
[2023-06-21] MEDS: Pravastatin 40 MG Tablet PO (21:34)
[2023-06-21] MEDS: OLANZapine 2.5 MG Tablet 7.5 MG PO (21:36)
[2023-06-22] MEDS: Acetaminophen 500 MG Tablet 1000 MG PO (05:25)
[2023-06-22] MEDS: Levothyroxine 75 MCG Tablet PO (05:25)
[2023-06-22] MEDS: Carbidopa/Levodopa 25/100 Tablet PO (05:25)
[2023-06-22] MEDS: Ursodiol 250 MG Tablet PO (05:25)
[2023-06-22] MEDS: Citalopram 20 MG Tablet PO ×2 (09:06→09:07)
[2023-06-22] MEDS: Pantoprazole Sodium 40 MG Tablet PO (09:07)
[2023-06-22] MEDS: Cholecalciferol (VIT D3) 25 MCG TABLET (1,000 UNITS) PO (09:08)
[2023-06-22] MEDS: Potassium Chloride Oral Tablet 20 MEQ PO (09:08)
[2023-06-22] MEDS: Menthol/Lanolin/Calamine/Znox 113 GM Tube 1 APPLIC TOPICAL (09:08)
--- NOTE | 2023-06-22 10:19 | NURSING ---
PICC line removed per order with no issues. Applied pressure for a few minutes, no bleeding from site. Applied sterile occlusive dressing.
[2023-06-22] MEDS: Ferrous Sulfate 325 MG Tablet PO (12:08)
[2023-06-22] MEDS: Miconazole Nitrate 43 GM Bottle 1 APPLIC TOPICAL (12:09)
== END 2023-06-22 14:05 | disposition home health service (06) | DRG 949 ==
PROVIDERS: Internal Medicine; Admitting Provider Family Medicine Geriatric Medicine; PCP Family Medicine Geriatric Medicine; Visit Provider Family Medicine Geriatric Medicine
DX: T84.52XD Infection and inflammatory reaction due to internal left hip prosthesis, subsequent encounter (principal); L76.32 Postprocedural hematoma of skin and subcutaneous tissue following other procedure; G20.A1 Parkinson's disease without dyskinesia, without mention of fluctuations; D50.9 Iron deficiency anemia, unspecified; E03.9 Hypothyroidism, unspecified; B35.4 Tinea corporis; K76.0 Fatty (change of) liver, not elsewhere classified; F20.9 Schizophrenia, unspecified; M06.9 Rheumatoid arthritis, unspecified; F32.A Depression, unspecified; E78.00 Pure hypercholesterolemia, unspecified; E87.6 Hypokalemia; E55.9 Vitamin D deficiency, unspecified; K21.9 Gastro-esophageal reflux disease without esophagitis; Z79.82 Long term (current) use of aspirin; Z79.01 Long term (current) use of anticoagulants; Z79.899 Other long term (current) drug therapy; Z79.890 Hormone replacement therapy; Y79.2 Prosthetic and other implants, materials and accessory orthopedic devices associated with adverse incidents
CPT/HCPCS: 36415; 36569; 80048; 80053; 81001; 82274; 82607; 82746; 83540; 83550; 85014; 85018; 85025; 85027; 85045; 85652; 86140; 86920; 87086; 87506; 87811; 94762; 97110; 97112; 97116; 97162; 97166; 97530; 97535; 97802; J7050; A4216; J2916

== ENCOUNTER → 2023-06-07 | Outpatient (CLI) | payer MEDICARE, SELFPAY ==
--- NOTE | 2023-06-07 09:20 | MRI_ITS ---
HISTORY: Left hip recurrent infection, abscess, right swollen hip, knee. Wound VAC with drainage since last MRI, now redness lateral upper thigh. TECHNIQUE: Multiplanar and multisequence MR images of the left hip were obtained without contrast. 274 images. COMPARISON: XR 05/10/2023, MRI 05/08/2023. FINDINGS: BONE: Unchanged appearance of left hip arthroplasty with limited evaluation due to artifact. Unchanged mild bone marrow edema at the femoral stem component. No acute fracture or femoral head avascular necrosis. JOINT: No dislocation. TENDONS: No high-grade tear of the hamstring tendons. Left iliopsoas tendon obscured by artifact from arthroplasty. Tendinous attachments on the greater trochanter also obscured due to artifact and postoperative change. SOFT TISSUES: Decreased size of periprosthetic fluid collection extending into the lateral subcutaneous soft tissues. Periprosthetic component 1.4 cm in thickness, previously 2.5 cm. Lateral subcutaneous component 1.5 x 14.3 cm compared to 3.2 x 21.7 cm as measured on the coronal images. Small component of hemorrhage in the fluid collection. Mildly decreased intramuscular edema. PELVIS: Artifact from surgical clips in the pelvis. MRI/Lower Ext Joint Only (Routine) IMPRESSION: Mildly decreased size of left periprosthetic fluid collection, possible abscess. Electronically Signed: Laverne Donato MD at 12:27 EST ,
== END | disposition home or self-care (01) ==
PROVIDERS: PCP Family Medicine Geriatric Medicine; Referring Provider Family Medicine Geriatric Medicine; Visit Provider Family Medicine Geriatric Medicine
DX: M25.452 Effusion, left hip (principal); L53.9 Erythematous condition, unspecified; B99.9 Unspecified infectious disease
CPT/HCPCS: 73721

== ENCOUNTER → 2023-06-08 | Outpatient (CLI) | payer MEDICARE, SELFPAY ==
--- OUTSIDE RECORDS SUMMARY | 2023-06-08 12:33 | XMS RPT_ITS | CCD ---
Author Name Unknown Address [address] [place] [address] Organization [facility] Care Team Providers Care Lean Six Sigma Black Belt Name Role Phone Heather Dialfátima Muro Unavailable [...] HCL] Drug Allergy 5 Shortness of Breath [facility] Work Phone: (3 sources) HISMANOL [Other] Propensity to adverse reactions 5 Shortness of Breath [facility] Work Phone: (3 sources) PROPANOLOL [Other] Propensity to adverse reactions 5 Shortness of Breath [facility] Work Phone: (1 source) OTHER; Translations: [OTHER] Propensity to adverse reactions (disorder) 5 [facility] Repository Medications Completed/Discontinued Medications Medication Drug Class(es) Dates Sig (Normalized) Sig (Original) [id number] 200 actuat albuterol 0.09 mg/actuat metered dose [...] joint; Translations: [Prosthetic hip infection, initial encounter ([facility])] Onset: 10-09-2022 Chronic Other injuries and [...] 15:04-0400 Body temperature 97.5 [degF] Fidencio Huggins [employer] Work Phone: [facility] 01-30-2022 15:04-0400 Body weight 83.92 kg Fidencio Huggins [employer] Work Phone: [facility] 01-30-2022 15:04-0400 Diastolic blood pressure 88 mm[Hg] Fidencio Huggins [employer] Work Phone: [facility] 01-30-2022 15:04-0400 Heart rate 85 /min Fidencio Huggins [employer] Work Phone: [facility] 01-30-2022 15:04-0400 Respiratory rate 18 /min Fidencio Huggins [employer] Work Phone: [facility] 01-30-2022 15:04-0400 SaO2% (BldA) [Mass fraction] 97 % Fidencio Huggins [employer] Work Phone: [facility] 01-30-2022 15:04-0400 Systolic blood pressure 126 mm[Hg] Fidencio Huggins [employer] Work Phone: [facility] 10-06-2015 14:40-0400 BMI (Body Mass Index) 29.23 kg/m2 [facility] Work Phone: 10-06-2015 14:40-0400 Height 160.02 cm [facility] Work Phone: 10-06-2015 14:40-0400 Weight 74.84 kg [facility] Work Phone: Encounters Encounter Date Encounter Type Care Provider Facility Start: 12-06-2022 ambulatory 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 Procedures Date Procedure Procedure Detail Performing Clinician Start: 10-16-2022 Electrocardiogram ZEINAB MAJANO Start: 10-10-2022 Antibody screen SANDIP MAJANO Plan of Treatment Date Care Activity Detail Author Start: 10-21-2025 DIABETES SCREEN DIABETES SCREEN [facility] Start: 03-18-2024 LIPID SCREEN LIPID SCREEN [facility] Start: 01-20-2023 Influenza vaccination INFLUENZA (#1) [facility] Start: 05-22-2022 ADVANCE DIRECTIVE DISCUSSION ADVANCE DIRECTIVE DISCUSSION [facility] Start: 03-18-2022 DIABETES SCREEN DIABETES SCREEN [facility] Start: 01-20-2022 Influenza vaccination INFLUENZA (#1) [facility] Start: 01-07-2022 COVID-19 VACCINE (5 - Booster for Moderna series) COVID-19 VACCINE (5 - Booster for Moderna series) [facility] Start: 11-02-2021 COVID-19 VACCINE (5 - Booster for Moderna series) COVID-19 VACCINE (5 - Booster for Moderna series) [facility] Start: 05-22-2021 ADVANCE DIRECTIVE DISCUSSION ADVANCE DIRECTIVE DISCUSSION [facility] Start: 10-06-2020 ANNUAL PCP TEAM CHRONIC DISEASE VISIT ANNUAL PCP TEAM CHRONIC DISEASE VISIT [facility] Start: 06-01-2019 Mammography MAMMOGRAM [facility] Start: 04-12-2017 End: 04-12-2017 Occupational Therapy General Occupational Therapy General Rehab [facility], [address] [place] [address], [id number] [facility] Work Phone: Start: 04-11-2017 End: 04-11-2017 Appointment Appointment [facility] Work Phone: Start: 03-29-2017 End: 03-29-2017 Appointment Appointment [facility] Work Phone: Start: 03-09-2017 End: 03-09-2017 Appointment Appointment [facility] Work Phone: Start: 06-01-2016 End: 06-01-2016 Occupational Therapy General Occupational Therapy [facility], [address] [place] [address], [address] [facility] Work Phone: Start: 10-28-2015 Colonoscopy COLONOSCOPY [facility] Start: 10-28-2015 COLORECTAL CANCER SCREENING COLORECTAL CANCER SCREENING [facility] Start: 10-07-2015 End: 10-07-2015 Occupational Therapy General Occupational Therapy [facility], [address] [place] [address], [address] [facility] Work Phone: Start: 06-21-2015 Urine microalbumin profile DTAP,TDAP,TD (3 - Td or Tdap) [facility] Start: 03-22-2014 PNEUMOCOCCAL: 65+ (2 - PCV) PNEUMOCOCCAL: 65+ (2 - PCV) [facility] Start: 1993 COLOGUARD (FIT-DNA) COLOGUARD (FIT-DNA) [facility] Start: [address] COLONOGRAPHY [facility] Start: 1993 FECAL OCCULT BLOOD FECAL OCCULT BLOOD [facility] Start: 1993 SIGMOIDOSCOPY SIGMOIDOSCOPY [facility] Start: 1966 BP CONTROLLED (<130/80) BP CONTROLLED (<130/80) [facility] Start: 1966 HEPATITIS C SCREENING HEPATITIS C SCREENING [facility] Patient Education TRIGGER%20FINGER [facility] Work Phone: Immunizations Immunization Date Immunization Notes Care Provider Deyvi bowden 03-06-2019 influenza, high dose seasonal, preservative-free Fidencio Pendlebury [employer] Work Phone: [facility] 03-06-2019 Seasonal, quadrivale nt, recombinant, injectable influenza vaccine, preservative free Fidencio Pendlebury [employer] Work Phone: [facility] 03-10-2018 zoster vaccine recombinant Fidencio Pendhoney [employer] Work Phone: [facility] 02-19-2018 influenza, seasonal, injectable, preservative free Fidencio Pendlebury [employer] Work Phone: [facility] 12-19-2017 zoster vaccine recombinant Fidencio Fonghoney [employer] Work Phone: [facility] 03-22-2013 pneumococcal polysaccharide vaccine, 23 valent Fidencio Huggins [employer] Work Phone: [facility] 05-11-2009 novel influenza-H1N1 -09, preservative-free, injectable Fidencio Huggins [employer] Work Phone: [facility] 03-05-2006 influenza virus vacc ine, whole virus Fidencioleroy Huggins [employer] Work Phone: [facility] Work Phone: 06-21-2005 tetanus toxoid, redu elana diphtheria toxoid, and acellular pertussis vaccine, adsorbed Fidencioleroy Fonghoney [employer] Work Phone: [facility] Work Phone: 05-22-1995 diphtheria and tetan us toxoids, adsorbed for pediatric use Fidencio Bhavna [employer] Work Phone: [facility] Work Phone: Payers Date Payer Category Payer Medicare [id number] 2021 Medicare [id number] Social History Date Type Detail Facility Tobacco smoking status NHIS Never smoked tobacco [facility] Work Phone: Start: 01-30-2022 End: 10-11-2022 Alcohol intake Current non-drinker of alcohol (finding) [facility] Start: 1950 Sex Assigned At Not on file [facility] Start: 10-10-2022 End: 10-11-2022 [facility] Work [facility]: Start: 10-10-2022 End: 10-11-2022 Tobacco use panel [facility] Work Phone: How hard is it for y ou to pay for the very basics like food, housing, medical care, and heating Not very hard [facility] Work Phone: (I/We) worried wheth er (my/our) food would run out before (I/we) got money to buy more. Never true [facility] Work Phone: In the past 12 month s, has lack of transportation kept you from medical appointments or from getting medications? No [facility] Work Phone: In the past 12 month s, was there a time when you were not able to pay the mortgage or rent on time? No [facility] Work Phone: Medical Equipment Procedure Code Equipment Code Equipment Origin al Text Equipment Identifier Dates Kit Stimulan Rap id Cure Calcium Sulfate Bone Graft Kit Paste Bead 10cc 25cc - [id number] FDA Start: 10-11-2022 Set Split Cath I ii 14fr 18ga Straight Triniflex 28cm Catheter Basic - [id number] Start: 10-20-2022 Cement Refobacin Bone Sterile Latex Free Disposable - [id number] Start: 10-11-2022 [place] Imp Hip Fem Prstlc Lt [id number] Start: 10-11-[address] [facility] 43 mm Ball Unipolar Modular Orthocentric Design Hip Femur - [id number] Start: 10-11-2022 Clinical Notes 02-08-2005 to [...] have any questions, you can call Nurse environmental sampling technician back. documented in this encounter [facility] 10-21-2022 Note HNO ID: [id number] Author: Georgina Ochoa RN Service: ? Author [...] Medical Ce nter 10-17-2022 Note HNO ID: [id number] Author: Carmen Rich RN Service: ? Author [...] Medical Ce nter 10-14-2022 Note HNO ID: [id number] Author: Georgina Ochoa RN Service: ? Author Type: Registered Nurse Type: Progress Notes Filed: 10/14/2022 1:54 PM Note Text: Treatment initiated without difficulty. 1500mL removed, 1L net [facility] 10-14-2022 Note [facility]-13-[facility]22 [facility] 10-12-2022 [facility] 10-12-2022 [facility] 10-12-2022 [facility] 10-11-2022 [facility] 10[facility]11-2022 [facility] 10-11-2022 [facility] 10-11-2022 [facility]11-2022 [facility] 10-10-2022 [facility] 10-10-2022 Note [facility] 10-10-2022 Note HNO ID: [id number] Author: Joanne Chavez RN Service: ? Author Type: Registered Nurse Type: Nursing Progress Note Filed: 10/10/2022 12:14 AM Note Text: This nurse receives report and resumes patient care at this time. [facility] 01-31-2022 Note HNO ID: [id number] Author: RT Henna(R) Service: Radiology Author Type: [...] RT Henna(R) January 31, 2022 8:50 AM [facility] 01-31-2022 Miscellaneous Notes Patient given results and verbalized understanding of instructions given. Seema Novak No abnormal findings noted on x-ray. Continue supportive therapies as discussed. Follow-up with PCP if symptoms or not improving. Fidencio Huggins APRN.CNP documented in this encounter [facility] 01-30-2022 Note HNO ID: [id number] Author: Fidencio Huggins APRN.CNP Service: ? Author [...] (hypertension) Hyperlipidemia Hypothyroidism Macular degeneration optho in [place] Obesity (BMI 30.0-34.9) Osteopenia Personal history of [...] joint pain. Negativ (more content not included)... [facility] 01-30-2022 History of Present illness Narrative [...] (hypertension) Hyperlipidemia Hypothyroidism Macular degeneration optho in [place] Obesity (BMI 30.0-34.9) Osteopenia Personal history of [...] of care. This note was generated using [employer] software. It may contain errors in wording, punctuation, or spelling. Fidencio Huggins APRN.JULES documented in this encounter [facility] 10-01-2021 Note HNO ID: [id number] Author: Jesusita Rivera PA-C Service: ? Author Type: Physician Clothes Marker Type: Progress Notes Filed: 10/01/2021 1:17 PM Note Text: This note was created using ClientShowter. Subjective Kaia Hale is a 71 year [...] - Hypothyroidism - Macular degeneration optho in [place] - Obesity (BMI 30.0-34.9) - Osteopenia - Personal history of colonic polyps Colon polyps - Schizophrenia ([facility]) Dr. Shabazz - Unspecified hemorrhoids without [...] sounds: Normal br (more content not included)... [facility] 10-01-2021 Note HNO ID: [id number] Author: RT Veronika(R) Service: ? Author Type: Punch Finisher Type: Progress Notes Filed: 10/01/2021 12:53 PM [...] RT Veronika(R) October 01, 2021 12:32 PM [facility] 07-25-2021 Note HNO ID: [id number] Author: Rhett Stephenson APRN.PRESSER FIRST Service: ? Author Type: Nurse Practitioner Type: [...] flu and covid. Patient not known to [facility], denies hx of renal/hepatic dysfunction. .Patient presents [...] - Hypothyroidism - Macular degeneration optho in [place] - Obesity (BMI 30.0-34.9) - Osteopenia - [...] adenopathy. Right cervica (more content not included)... [facility] 07-25-2021 Influenza virus A and B RNA and SARS-CoV-2 (COVID-19) N gene panel FELA+probe (Resp) COVID 19 RESULT: SARS-CoV-2 (Agent of COVID-19) Not Detected by RT-PCR or equivalent method. atilio [id number] (TRUE)_EUA This test has been authorized by the FDA under an Emergency Use Authorization (EUA). INFLUENZA A PCR: Negative for Influenza A by RT-PCR INFLUENZA B PCR: Negative for Influenza B by RT-PCR [facility] documented as of this encounter (statuses as of 01/31/2022) [facility]09-20-2005 History of Past illness Narrative* Problem Noted Date Resolved Date Schizoaffective disorder 02/08/2005 008 Osteoporosis 09/23/2019 documented as of this encounter (statuses as of 01/31/2022) [facility]09-[facility]2005 History of Past illness Narrative* Problem Noted Date Diagnosed Date Resolved Date Schizoaffective disorder 02/08/200504/2008 Osteoporosis 09/23/2019 documented as of this encounter (statuses as of 12/07/2022) [facility] Diagnosis Foot injury, right, initial encounter- Primary [facility] this [facility] Diagnostic Procedure Only (Urgent) - Closed Specialty Diagnoses / Procedures Referred By Contac t Referred To Contact XR IMAGING Diagnoses Foot injury, right, initial encounter Procedures XR FOOT GENERAL 3V AP/LAT/OBL RIGHT RADEX FOOT COMPLETE MINIMUM 3 VIEWS Fidencio Huggins APRN.CNP [address] [place] [address] Xr Imaging Referral ID Status Reason Start Date Expiration Date V isits Requested Visits Authorized [id number] Closed Auto-Generate d Referral 01/30/2022 03/01/2023 1 1 [facility] Summary Purpose Family History No Family History [...] or prosecute any alcohol or drug abuse patient.[facility] the event this information is protected by the Federal Confidentiality of Alcohol and Drug Abuse Patient Records regulations: The Federal rules restrict any use of the information to criminally investigate or prosecute any alcohol or drug abuse patient.[facility] the event this information is protected by the Federal Confidentiality of Alcohol and Drug Abuse Patient Records regulations: The Federal rules restrict any use of the information to criminally investigate or prosecute any alcohol or drug abuse patient.[facility] Reason for Visit (unrecogniz ed section and [...] BE BASED ON THE PRIMARY CLINICAL RECORDS. [facility]. provides no warranty or guarantee of the accuracy or completeness of information in this document.
[2023-06-08] MEDS: Lidocaine 2% (5ml sdv) 5 ML VIAL.MPF (12:40)
== END | disposition home or self-care (01) ==
LOC: RAD 12:06
PROVIDERS: PCP Family Medicine Geriatric Medicine; Referring Provider Specialist; Visit Provider Specialist
DX: M96.842 Postprocedural seroma of a musculoskeletal structure following a musculoskeletal system procedure (principal)
CPT/HCPCS: 20610; 77002

== ENCOUNTER → 2023-06-09 | Outpatient (CLI) | payer MEDICARE, SELFPAY ==
--- NOTE | 2023-06-09 | IMM_PTH ---
PATHOLOGY RESULTS PATIENT: DANDRE PERAZA LOC: [facility]#:[id number] AGE/SX: 72/F ROOM: RE06/09/[address]: Dr. Raji Herrmann MD : 1950 BED: DIS: 06/09/2023 SPEC #: [id number] RECD: 06/12/23 12:52 STATUS: KARLY REQ #: [id number] RULA: 06/09/23 00:[address]: Raji Herrmann [facility] DEPT: IMMUNOHISTOCHEMISTRY RECD BY: Diana Fontaine ENTERED: 06/12/23 12:54 SP TYPE: IMMUNO Tissues: Hip, NOS Procedures: CK20 (add) CK7 (add) JENIFFER (add) KI-67 (add) MACRO (add) P53 (add) Vimentin (add) Pankeratin (initial) S-100 (add) PHYSICIAN & INSTITUTION [place] [id number] SPECIMEN INFORMATION: Tissue Source: Left hip fluid Clinical Info: Left hip Specimen Number: [id number] CPT code: 27611, 05333 x8 METHODOLOGY: Deparaffinized sections of prefer/formalin-fixed tissue or PAP/DQ stained slides are incubated with monoclonal/polyclonal antibodies/oligonucleotide probes. Localization is made via biotin free immunoperoxidase method. Appropriate controls are performed and reacted as expected. Results on target cell population are indicated in the following table: RESULTS: ANTIBODY / CLONE RESULT AE1-3 (AE1/AE3/PCK26) negative CK7 (OV-TL12/30) negative CK20 (KS20.8) negative Vimentin (V9) positive Macro (HAM-56) positive S-100 (4C4.9) negative JENIFFER (E29) negative P53 (DO-7) negative, null pattern Ki-67 (30-9) positive, rare cells These tests were developed and their performance characteristics determined by [facility]. They may not have been cleared or approved by the U.S. Food and Drug Administration. The FDA has determined that such clearance or approval is not necessary. The above immunohistochemical/dualISH markers are ordered and reviewed by the Pathologist. INTERPRETATION: Left hip fluid (cell block): No evidence of malignancy. AM:jaqui 06/13/2023
--- NOTE | 2023-06-09 | FLU_PTH ---
PATHOLOGY RESULTS PATIENT: DANDRE PERAZA LOC: [facility]#:[id number] AGE/SX: 72/F ROOM: RE06/09/[address]: Dr. Raji Herrmann MD : 1950 BED: DIS: 06/09/2023 SPEC #: [id number] RECD: 06/09/23 13:10 STATUS: OMERRegan REPeace #: [id number] RULA: 06/09/23 00:[address]: Raji Herrmann Chi DEPT: CYTOLOGY RECD BY: Fran Jackson ENTERED: 06/09/23 13:11 SP TYPE: Fluid Tissues: CYST Procedures: Special Stain Group II Surgery Specimen Level IV Cytospin Fluid HEADER OPERATION: Cyst puncture/drainage PRE-OP DIAGNOSIS: Left hip fluid pocket status post surgery TISSUE SUBMITTED: Left hip fluid DIAGNOSIS CYTOLOGY Fine needle aspiration, left hip fluid (cytospin and cell block): Negative for malignant cells. See comment. AM:jaqui 06/12/2023 COMMENT Immunohistochemistry ([id number]) supports the above diagnosis. CYTOLOGY STUDY Slides are reviewed. CYTOLOGY GROSS Received is 20 ml of red cloudy fluid labeled with the patient's name and and designated per the requisition as left hip. Submitted for cytology preparation including cell block. / rg 06/09/2023 TC:5 CPT: 78882, 56150
--- OUTSIDE RECORDS SUMMARY | 2023-06-09 08:11 | XMS RPT_ITS | CCD ---
Author Name Unknown Address [address] [place] [address] Organization [facility] Care Team Providers [facility] Monitor Name Role Phone Tamara Dial Bhaskar Unavailable Dial, Tamara N Unavailable Nae Pan Unavailable [phone] Dial, Tamara N Unavailable Unavailable Primary Care Provider UnavailSANDIP Montoya Admitting Unavailable KAN SANCHEZ Attending Unavailable CICI ORELLANA Consulting Unavailable Raji Herrmann Chi Primary Care Provider Allergies Allergy Classification Reported Allergen(s) Allergy Type Date of Onset Reaction(s) Facility (4 sources) Cetirizine; Translations: [CETIRIZINE HCL] Drug Allergy 5 Shortness of Breath [facility] Work Phone: (3 sources) HISMANOL [Other] Propensity to adverse reactions 5 Shortness of Breath [facility] Work Phone: (3 sources) PROPANOLOL [Other] Propensity to adverse reactions 5 Shortness of Breath [facility] Work Phone: (1 source) OTHER; Translations: [OTHER] Propensity to adverse reactions (disorder) 5 [facility] Repository Medications Completed/Discontinued Medications Medication Drug Class(es) Dates Sig (Normalized) Sig (Original) [id number] 200 actuat albuterol 0.09 mg/actuat metered dose [...] 15:04-0400 Body temperature 97.5 [degF] Fidencio Huggins TOOTH C[employer]TER [employer] Work Phone: [facility] 01-30-2022 15:04-0400 Body weight 83.92 kg Fidencio Huggins [employer] Work Phone: [facility] 01-30-2022 15:04-0400 Diastolic blood pressure 88 mm[Hg] Fidencio Huggins [employer] C[employer] Work Phone: [facility] 01-30-2022 15:04-0400 Heart rate 85 /min Fidencio Huggins [employer] Work Phone: [facility] 01-30-2022 15:04-0400 Respiratory rate 18 /min Fidencio Huggins [employer] Work Phone: [facility] 01-30-2022 15:04-0400 SaO2% (BldA) [Mass fraction] 97 % Fidencio Huggins [employer] Work Phone: [facility] 01-30-2022 15:04-0400 Systolic blood pressure 126 mm[Hg] Fidencio Huggins [employer] C[employer] Work Phone: [facility] 10-06-2015 14:40-0400 BMI (Body Mass Index) 29.23 kg/m2 [facility] Work Phone: 10-06-2015 14:40-0400 Height 160.02 cm [facility] Work Phone: 10-06-2015 14:40-0400 Weight 74.84 kg [facility] Work Phone: Encounters Encounter Date Encounter Type Care Provider Facility Start: 12-06-2022 ambulatory Maude SMITH SE MICROELECTRONICS TECHNICIAN Procedures Date Procedure Procedure Detail Performing Clinician Start: 10-16-2022 Electrocardiogram ZEINAB MAJANO Start: 10-10-2022 Antibody screen SANDIP MAJANO Plan of Treatment Date Care Activity Detail Author Start: 10-21-2025 DIABETES SCREEN DIABETES SCREEN [facility] Start: 03-18-2024 LIPID SCREEN LIPID SCREEN [facility] Start: 01-20-2023 Influenza vaccination INFLUENZA (#1) [facility] Start: 05-22-2022 ADVANCE DIRECTIVE DISCUSSION ADVANCE DIRECTIVE DISCUSSION [facility] Start: 03-18-2022 DIABETES SCREEN DIABETES SCREEN [facility] Start: 01-20-2022 Influenza vaccination INFLUENZA (#1) [facility] Start: 01-07-2022 COVID-19 VACCINE (5 - Booster for Moderna series) COVID-19 VACCINE (5 - Booster for Moderna series) [facility] Start: 11-02-2021 COVID-19 VACCINE (5 - Booster for Moderna series) COVID-19 VACCINE (5 - Booster for Moderna series) [facility] Start: 05-22-2021 ADVANCE DIRECTIVE DISCUSSION ADVANCE DIRECTIVE DISCUSSION [facility] Start: 10-06-2020 ANNUAL PCP TEAM CHRONIC DISEASE VISIT ANNUAL PCP TEAM CHRONIC DISEASE VISIT [facility] Start: 06-01-2019 Mammography MAMMOGRAM [facility] Start: 04-12-2017 End: 04-12-2017 Occupational Therapy General Occupational Therapy General Rehab [facility], [address] [place] [address], [id number] [facility] Work Phone: Start: 04-11-2017 End: 04-11-2017 Appointment Appointment [facility] Work Phone: Start: 03-29-2017 End: 03-29-2017 Appointment Appointment [facility] Work Phone: Start: 03-09-2017 End: 03-09-2017 Appointment Appointment [facility] Work Phone: Start: 06-01-2016 End: 06-01-2016 Occupational Therapy General Occupational Therapy [facility], [address] [place] [address], [phone] [facility] Work Phone: Start: 10-28-2015 Colonoscopy COLONOSCOPY [facility] Start: 10-28-2015 COLORECTAL CANCER SCREENING COLORECTAL CANCER SCREENING [facility] Start: 10-07-2015 End: 10-07-2015 Occupational Therapy General Occupational Therapy [facility], [address] [place] [address], [id number] [facility] Work Phone: Start: 06-21-2015 Urine microalbumin profile DTAP,TDAP,TD (3 - Td or Tdap) [facility] Start: 03-22-2014 PNEUMOCOCCAL: 65+ (2 - PCV) PNEUMOCOCCAL: 65+ (2 - PCV) [facility] Start: 1993 COLOGUARD (FIT-DNA) COLOGUARD (FIT-DNA) [facility] Start: [address] COLONOGRAPHY [facility] Start: 1993 FECAL OCCULT BLOOD FECAL OCCULT BLOOD [facility] Start: 1993 SIGMOIDOSCOPY SIGMOIDOSCOPY [facility] Start: 1966 BP CONTROLLED (<130/80) BP CONTROLLED (<130/80) [facility] Start: 1966 HEPATITIS C SCREENING HEPATITIS C SCREENING [facility] Patient Education TRIGGER%20FINGER Weisbrod [facility] Work Phone: Immunizations Immunization Date Immunization Notes Care Provider Deyvi bowden 03-06-2019 influenza, high dose seasonal, preservative-free Fidencio Pendlebury [employer] Work Phone: [facility] 03-06-2019 Seasonal, quadrivale nt, recombinant, injectable influenza vaccine, preservative free Fidencio Pendlebury [employer] Work Phone: [facility] 03-10-2018 zoster vaccine recombinant Fidencio Pendhoney [employer] Work Phone: [facility] 02-19-2018 influenza, seasonal, injectable, preservative free Fidencio Pendlebury TO[employer] Work Phone: [facility] 12-19-2017 zoster vaccine recombinant Fidencio Fonghoney TO[employer] Work Phone: [facility] 03-22-2013 pneumococcal polysaccharide vaccine, 23 valent Fidencio Huggins [employer] Work Phone: [facility] 05-11-2009 novel influenza-H1N1 -09, preservative-free, injectable Fidencio Huggins [employer] Work Phone: [facility] 03-05-2006 influenza virus vacc ine, whole virus Fidencioleroy Huggins [employer] Work Phone: [facility] Work Phone: 06-21-2005 tetanus toxoid, redu elana diphtheria toxoid, and acellular pertussis vaccine, adsorbed Fidencioleroy Fonghoney [employer] Work Phone: [facility] Work Phone: 05-22-1995 diphtheria and tetan us toxoids, adsorbed for pediatric use Fidencio Bhavna [employer] Work Phone: [facility] Work Phone: Payers Date Payer Category Payer Medicare [id number] 2021 Medicare [id number] Social History Date Type Detail Facility Tobacco smoking status NHIS Never smoked tobacco [facility] Work Phone: Start: 01-30-2022 End: 10-11-2022 Alcohol intake Current non-drinker of alcohol (finding) [facility] Start: 1950 Sex Assigned At Not on file [facility] Start: 10-10-2022 End: 10-11-2022 [facility] of [facility] Work [facility]: Start: 10-10-2022 End: 10-11-2022 Tobacco use panel [facility] Work Phone: How hard is it for y ou to pay for the very basics like food, housing, medical care, and heating Not very hard [facility] Work Phone: (I/We) worried wheth er (my/our) food would run out before (I/we) got money to buy more. Never true [facility] Work Phone: In the past 12 month s, has lack of transportation kept you from medical appointments or from getting medications? No [facility] Work Phone: In the past 12 month s, was there a time when you were not able to pay the mortgage or rent on time? No [facility] Work Phone: Medical Equipment Procedure Code Equipment Code Equipment Origin al Text Equipment Identifier Dates Kit Stimulan Rap id Cure Calcium Sulfate Bone Graft Kit Paste Bead 10cc 25cc - [id number] FDA Start: 10-11-2022 Set Split Cath I ii 14fr 18ga Straight Triniflex 28cm Catheter Basic - [id number] Start: 10-20-2022 Cement Refobacin Bone Sterile Latex Free Disposable - [id number] Start: 10-11-2022 [place] Imp Hip Fem Prstlc Lt [id number] Start: 10-11-2022 [place] 43 mm Ball Unipolar Modular Orthocentric Design Hip Femur - [id number] Start: 10-11-2022 Clinical Notes 02-08-2005 to [...] have any questions, you can call Nurse it communications manager back. documented in this encounter [facility] 10-21-2022 Note HNO ID: [id number] Author: Georgina Ochoa RN Service: ? Author Type: Registered Nurse Type: Progress Notes Filed: 10/21/2022 1:29 PM Note Text: Treatment initiated with lines in reverse. 2000mL removed, 1.5L net [facility] 10-21-2022 [facility] [...] [facility] 10-17-2022 Note HNO ID: [id number] Author: Carmen Rich RN Service: ? Author Type: Registered Nurse Type: Nursing Progress Note Filed: 10/17/2022 9:59 AM Note Text: Dr Golden aware of elevated bp and sepsis advisory flag. [facility] 10-16-2022 Note [facility] 10-16-2022 [facility] 10-16-2022 [facility] 10-15-2022 [facility] 10-15-2022 [facility] 10-14-[facility]22 [facility] 10-14-2022 Note HNO ID: [id number] Author: Georgina Ochoa RN Service: ? Author Type: Registered Nurse Type: Progress Notes Filed: 10/14/2022 1:54 PM Note Text: Treatment initiated without difficulty. 1500mL removed, 1L net [facility] 10-14-2022 [facility]-13[facility] 10-12-2022 [facility] 10[facility]12[facility]22 [facility] 10-11-2022 [facility] 10-11-[facility] 10-11-[facility] 10-11-2022 [facility] 10-11-2022 [facility] 10-10-2022 [facility] 10-10-2022 [facility] 10-10-2022 Note HNO ID: [id number] Author: Joanne Chavez RN Service: ? Author Type: Registered Nurse Type: Nursing Progress Note Filed: 10/10/2022 12:14 AM Note Text: This nurse receives report and resumes patient care at this time. [facility] 01-31-2022 Note HNO ID: [id number] Author: RT Henna(R) Service: Radiology Author Type: [...] RT Henna(R) January 31, 2022 8:50 AM [facility] 01-31-2022 Miscellaneous Notes Patient given results and verbalized understanding of instructions given. Seema Novak No abnormal findings noted on x-ray. Continue supportive therapies as discussed. Follow-up with PCP if symptoms or not improving. Fidencio Huggins APRN.CNP documented in this encounter [facility] 01-30-2022 Note HNO ID: [id number] Author: Fidencio Huggins APRN.CNP Service: ? Author [...] (hypertension) Hyperlipidemia Hypothyroidism Macular degeneration optho in [place] Obesity (BMI 30.0-34.9) Osteopenia Personal history of [...] joint pain. Negativ (more content not included)... [facility] 01-30-2022 History of Present illness Narrative Images [...] (hypertension) Hyperlipidemia Hypothyroidism Macular degeneration optho in [place] Obesity (BMI 30.0-34.9) Osteopenia Personal history of [...] of care. This note was generated using [employer] software. It may contain errors in wording, punctuation, or spelling. Fidencio Huggins APRN.JULES documented in this encounter [facility] 10-01-2021 Note HNO ID: [id number] Author: Jesusita Rivera PA-C Service: ? Author Type: Physician Cat Scanner Operator Type: Progress Notes Filed: 10/01/2021 1:17 PM Note Text: This note was created using [employer]. Subjective Kaia Hale is a 71 year [...] - Hypothyroidism - Macular degeneration optho in [place] - Obesity (BMI 30.0-34.9) - Osteopenia - [...] sounds: Normal br (more content not included)... [facility] 10-01-2021 Note HNO ID: [id number] Author: RT Veronika(R) Service: ? Author Type: Artist Model Type: Progress Notes Filed: 10/01/2021 12:53 PM [...] RT Veronika(R) October 01, 2021 12:32 PM [facility] 07-25-2021 Note HNO ID: [id number] Author: Rhett Stephenson APRN.[employer] GUIDE Service: ? Author Type: Nurse Practitioner Type: [...] flu and covid. Patient not known to [facility], denies hx of renal/hepatic dysfunction. [...] - Hypothyroidism - Macular degeneration optho in [place] - Obesity (BMI 30.0-34.9) - Osteopenia - [...] adenopathy. Right cervica (more content not included)... [facility] 07-25-2021 Influenza virus A and B RNA and SARS-CoV-2 (COVID-19) N gene panel FELA+probe (Resp) COVID 19 RESULT: SARS-CoV-2 (Agent of COVID-19) Not Detected by RT-PCR or equivalent method. atilio [id number]_[employer] (TRUE)_EUA This test has been authorized by the FDA under an Emergency Use Authorization (EUA). INFLUENZA A PCR: Negative for Influenza A by RT-PCR INFLUENZA B PCR: Negative for Influenza B by RT-PCR [facility] documented as of this encounter (statuses as of 01/31/2022) [facility]09-[facility]-2005 History of Past illness Narrative* Problem Noted Date Resolved Date Schizoaffective disorder 02/08/2005 008 Osteoporosis 09/23/2019 documented as of this encounter (statuses as of 01/31/2022) [facility]09-[facility]2005 History of Past illness Narrative* Problem Noted Date Diagnosed Date Resolved Date Schizoaffective disorder 02/08/200504/2008 Osteoporosis 09/23/2019 documented as of this encounter (statuses as of 12/07/2022) [facility] Diagnosis Foot injury, right, initial encounter- Primary documented in this encounter [facility] Diagnostic Procedure Only (Urgent) - Closed Specialty Diagnoses / Procedures Referred By Contac t Referred To Contact XR IMAGING Diagnoses Foot injury, right, initial encounter Procedures XR FOOT GENERAL 3V AP/LAT/OBL RIGHT RADEX FOOT COMPLETE MINIMUM 3 VIEWS Fidencio Huggins APRN.CNP [address] [place] [address] Xr Imaging Referral ID Status Reason Start Date Expiration Date V isits Requested Visits Authorized [id number] Closed Auto-Generate d Referral 01/30/2022 03/01/2023 1 1 [facility] Summary Purpose Family History No Family [...] or prosecute any alcohol or drug abuse patient.[facility] the event this information is protected by the Federal Confidentiality of Alcohol and Drug Abuse Patient Records regulations: The Federal rules restrict any use of the information to criminally investigate or prosecute any alcohol or drug abuse patient.[facility] the event this information is protected by the Federal Confidentiality of Alcohol and Drug Abuse Patient Records regulations: The Federal rules restrict any use of the information to criminally investigate or prosecute any alcohol or drug abuse patient.[facility] Reason for Visit (unrecogniz ed section and content) Reason Comments Results Reason Comments Results, Lab INFORMATION SOURCE (unrecogn ized section and content) DATE CREATED AUTHOR AUTHOR'S ANG WILSON 11/10/2022 [facility] nt Care Teams (unrecognized sec tion and [...] BE BASED ON THE PRIMARY CLINICAL RECORDS. [facility]. provides no warranty or guarantee of the accuracy or completeness of information in this document.
[2023-06-09] MEDS: Lidocaine 2% (20 ml mdv) 20 ML Vial INFILT (09:00)
[2023-06-09 10:27] LABS: RBC /Synovial Fluid 0.045 10^6/uL (0); Synovial Fld Mononuclear WBC # 0.312 10^3/ul; Synovial Fld Mononuclear WBC % 64.3 %; Synovial Fld Polynuclear WBC # 0.173 10^3/uL; Synovial Fld Polynuclear WBC % 35.7 %
--- NOTE | 2023-06-09 11:56 | PCM.OP.PRO ---
Procedure Report Date of Procedure: 06/09/23 (0915) Assessment & Plan Assessment/Plan (1) Seroma after procedure: PLAN: PROCEDURE: Ultrasound guided paracentesis ORDERING PROVIDER: Dr. Frances INDICATION: Female, 72 years old. Left lateral thigh fluid collection found on MRI, question seroma versus abscess. PROVIDER: MINDI Hassan TECHNIQUE: The risks, benefits, and alternatives to the procedure were explained to the patient. The specific risks of bleeding, infection, and damage to bowel were detailed and accepted. Witnessed informed consent was obtained. The left lateral thigh was ultrasonographically surveyed. Under ultrasound, a pocket of fluid was identified running parallel and anterior to the incision line, approximately 2-1/2 cm below the skin surface. The skin was prepped with chlorhexidine and sterile field established. 2% lidocaine was used for local anesthetic for access of the middle of the fluid collection. The collection of fluid was accessed in a superior direction using a 5 [place] needle/catheter system using ultrasound guidance. Once reaching the fluid, the trocar was removed and the catheter was advanced. A total of 30 mL of dark red-colored fluid was aspirated. Under ultrasound, there was still fluid present inferior of the access site. So in the already and at the size area, a new 5 [place] needle/catheter system was advanced inferiorly using ultrasound guidance. Despite visualization of the catheter within the fluid collection, fluid was unable to be aspirated. The patient was tolerating this well and thinking perhaps the catheter had clotted, a third attempt was made with a third catheter system. This attempt proved to only remove 2 mL of fluid, again a dark red. The catheter was removed and a sterile dressing was applied. The procedure was well tolerated. IMPRESSION: Successful ultrasound-guided drainage of fluid collection in the left lateral thigh. Procedures Radiology Radiology [place] Procedures: 18211 Cyst Puncture
[2023-06-09 12:32] LABS: AUTO B FLUID DILUENT BKGD CT WBC <0.1 RBC <0.01 (W<.1,R<.01); Lymph 29 %; Monocyte /Synovial Fluid 19 %; Neutrophil 48 % (0-25); Other Cell /Synovial Fluid 4 %
[2023-06-09 12:33] LABS: Appearance /Synovial Fluid Cloudy (CLEAR); Color / Synovial Fluid Red (Pale Yellow); Source / Synovial Fluid HIP
[2023-06-09 12:37] LABS: Body Fluid QC Type(s) BF1Q
[2023-06-12 14:17] LABS: Pathologist Comment Reviewed
== END | disposition home or self-care (01) ==
PROVIDERS: Specialist; PCP Family Medicine Geriatric Medicine; Referring Provider Family Medicine Geriatric Medicine; Visit Provider Family Medicine Geriatric Medicine
DX: M96.842 Postprocedural seroma of a musculoskeletal structure following a musculoskeletal system procedure (principal)
CPT/HCPCS: 49083; 76942; 87015; 87070; 87075; 87101; 87116; 87205; 87206; 88108; 88305; 88313; 88341; 88342; 89050; 89051

== ENCOUNTER → 2023-07-03 | Outpatient (CLI) | payer MEDICARE, SELFPAY ==
--- NOTE | 2023-07-03 12:20 | RAD_ITS ---
EXAM: XR ABDOMEN, 2 VIEWS CLINICAL INDICATION: DIARRHEA ABDOMINAL PAIN TECHNIQUE: Frontal view of the abdomen/pelvis with upright view of the abdomen. COMPARISON: No relevant prior studies available. FINDINGS: LOWER THORAX: No acute pathology. INTRAPERITONEAL SPACE: No free air. GASTROINTESTINAL TRACT: Unremarkable. Non-obstructive. No bowel or stomach distention. ORGANS: Unremarkable as visualized. No organomegaly. No abnormal calcifications. BONES/JOINTS: She is a total left hip prosthesis. SOFT TISSUES: There are bilateral tubal ligation clips in the pelvis. RAD/Abd Inc Decub and/or Erect IMPRESSION: No acute findings in the abdomen or pelvis. Electronically Signed: Renzo Leos MD at 23:43 EST ,
--- OUTSIDE RECORDS SUMMARY | 2023-07-03 12:39 | XMS RPT_ITS | CCD ---
Author Name Unknown Address [address] [place] [address] Organization [facility] Care Team Providers Care Chisel Mortiser Operator Name Role Phone Heather Dialfátima Muro Unavailable Dial, Tamara N Unavailable Nae Pan Unavailable [phone] Dial, Tamara N Unavailable Unavailable Primary Care Provider UnavailSANDIP Montoya Admitting Unavailable KAN SANCHEZ Attending Unavailable CICI ORELLANA Consulting Unavailable Raji Herrmann Chi Primary Care Provider [phone] Allergies Allergy Classification Reported Allergen(s) Allergy Type Date of Onset Reaction(s) Facility (4 sources) Cetirizine; Translations: [CETIRIZINE HCL] Drug Allergy 5 Shortness of Breath [facility] Work Phone: (3 sources) HISMANOL [Other] Propensity to adverse reactions 5 Shortness of Breath [facility] Work Phone: (3 sources) PROPANOLOL [Other] Propensity to adverse reactions 5 Shortness of Breath [facility] Work Phone: (1 source) OTHER; Translations: [OTHER] Propensity to adverse reactions (disorder) 5 [facility] Repository Medications Completed/Discontinued Medications Medication Drug Class(es) Dates Sig (Normalized) Sig (Original) [id number] 200 actuat albuterol 0.09 mg/actuat metered dose [...] 15:04-0400 Body temperature 97.5 [degF] Fidencio Huggins AIR INTERCEPT CONTROLLER SUPERVISOR.CHIEF INSPECTOR Work Phone: [facility] 01-30-2022 15:04-0400 Body weight 83.92 kg Fidencio Huggins AIR INTERCEPT CONTROLLER SUPERVISOR.CHIEF INSPECTOR Work Phone: [facility] 01-30-2022 15:04-0400 Diastolic blood pressure 88 mm[Hg] Fidencio Huggins AIR INTERCEPT CONTROLLER SUPERVISOR.CHIEF INSPECTOR Work Phone: [facility] 01-30-2022 15:04-0400 Heart rate 85 /min Fidencio Huggins AIR INTERCEPT CONTROLLER SUPERVISOR.CHIEF INSPECTOR Work Phone: [facility] 01-30-2022 15:04-0400 Respiratory rate 18 /min Fidencio Huggins AIR INTERCEPT CONTROLLER SUPERVISOR.CHIEF INSPECTOR Work Phone: [facility] 01-30-2022 15:04-0400 SaO2% (BldA) [Mass fraction] 97 % Fiedncio Huggins AIR INTERCEPT CONTROLLER SUPERVISOR.CHIEF INSPECTOR Work Phone: [facility] 01-30-2022 15:04-0400 Systolic blood pressure 126 mm[Hg] Fidencio Huggins AIR INTERCEPT CONTROLLER SUPERVISOR.CHIEF INSPECTOR Work Phone: [facility] 10-06-2015 14:40-0400 BMI (Body Mass Index) 29.23 kg/m2 [facility] Work Phone: 10-06-2015 14:40-0400 Height 160.02 cm [facility] Work Phone: 10-06-2015 14:40-0400 Weight 74.84 kg [facility] Work Phone: Encounters Encounter Date Encounter Type Care Provider Facility Start: 12-06-2022 ambulatory Maude SMITH [facility] Procedures Date Procedure Procedure Detail Performing Clinician Start: 10-16-2022 Electrocardiogram ZEINAB MAJANO Start: 10-10-2022 Antibody screen SANDIP MAJANO Plan of Treatment Date Care Activity Detail Author Start: 10-21-2025 DIABETES SCREEN DIABETES SCREEN [facility] Start: 03-18-2024 LIPID SCREEN LIPID SCREEN [facility] Start: 01-20-2023 Influenza vaccination INFLUENZA (#1) [facility] Start: 05-22-2022 ADVANCE DIRECTIVE DISCUSSION ADVANCE DIRECTIVE DISCUSSION [facility] Start: 03-18-2022 DIABETES SCREEN DIABETES SCREEN [facility] Start: 01-20-2022 Influenza vaccination INFLUENZA (#1) [facility] Start: 01-07-2022 COVID-19 VACCINE (5 - Booster for Moderna series) COVID-19 VACCINE (5 - Booster for Moderna series) [facility] Start: 11-02-2021 COVID-19 VACCINE (5 - Booster for Moderna series) COVID-19 VACCINE (5 - Booster for Moderna series) [facility] Start: 05-22-2021 ADVANCE DIRECTIVE DISCUSSION ADVANCE DIRECTIVE DISCUSSION [facility] Start: 10-06-2020 ANNUAL PCP TEAM CHRONIC DISEASE VISIT ANNUAL PCP TEAM CHRONIC DISEASE VISIT [facility] Start: 06-01-2019 Mammography MAMMOGRAM [facility] Start: 04-12-2017 End: 04-12-2017 Occupational Therapy General Occupational Therapy General Rehab [facility], [address] [place] [address], [phone] [facility] Work Phone: Start: 04-11-2017 End: 04-11-2017 Appointment Appointment [facility] Work Phone: Start: 03-29-2017 End: 03-29-2017 Appointment Appointment [facility] Work Phone: Start: 03-09-2017 End: 03-09-2017 Appointment Appointment [facility] Work Phone: Start: 06-01-2016 End: 06-01-2016 Occupational Therapy General Occupational Therapy [facility], [address] [place] [address], [phone] [facility] Work Phone: Start: 10-28-2015 Colonoscopy COLONOSCOPY [facility] Start: 10-28-2015 COLORECTAL CANCER SCREENING COLORECTAL CANCER SCREENING [facility] Start: 10-07-2015 End: 10-07-2015 Occupational Therapy General Occupational Therapy [facility], [address] [place] [address], [phone] [facility] Work Phone: Start: 06-21-2015 Urine microalbumin profile DTAP,TDAP,TD (3 - Td or Tdap) [facility] Start: 03-22-2014 PNEUMOCOCCAL: 65+ (2 - PCV) PNEUMOCOCCAL: 65+ (2 - PCV) [facility] Start: 1993 COLOGUARD (FIT-DNA) COLOGUARD (FIT-DNA) [facility] Start: [address] COLONOGRAPHY [facility] Start: 1993 FECAL OCCULT BLOOD FECAL OCCULT BLOOD [facility] Start: 1993 SIGMOIDOSCOPY SIGMOIDOSCOPY [facility] Start: 1966 BP CONTROLLED (<130/80) BP CONTROLLED (<130/80) [facility] Start: 1966 HEPATITIS C SCREENING HEPATITIS C SCREENING [facility] Patient Education TRIGGER%20FINGER [facility] Work Phone: Immunizations Immunization Date Immunization Notes Care Provider Deyvi bowden 03-06-2019 influenza, high dose seasonal, preservative-free Fidencio Pendlebury AIR INTERCEPT CONTROLLER SUPERVISOR.CHIEF INSPECTOR Work Phone: [facility] 03-06-2019 Seasonal, quadrivale nt, recombinant, injectable influenza vaccine, preservative free Fidencio Pendlebury AIR INTERCEPT CONTROLLER SUPERVISOR.CHIEF INSPECTOR Work Phone: [facility] 03-10-2018 zoster vaccine recombinant Fidencio Pendhoney AIR INTERCEPT CONTROLLER SUPERVISOR.CHIEF INSPECTOR Work Phone: [facility] 02-19-2018 influenza, seasonal, injectable, preservative free Fidencio Pendlebury AIR INTERCEPT CONTROLLER SUPERVISOR.CHIEF INSPECTOR Work Phone: [facility] 12-19-2017 zoster vaccine recombinant Fidencio Fonghoney AIR INTERCEPT CONTROLLER SUPERVISOR.CHIEF INSPECTOR Work Phone: [facility] 03-22-2013 pneumococcal polysaccharide vaccine, 23 valent Fidencio Huggins AIR INTERCEPT CONTROLLER SUPERVISOR.CHIEF INSPECTOR Work Phone: [facility] 05-11-2009 novel influenza-H1N1 -09, preservative-free, injectable Fidencio Huggins AIR INTERCEPT CONTROLLER SUPERVISOR.CHIEF INSPECTOR Work Phone: [facility] 03-05-2006 influenza virus vacc ine, whole virus Fidencioleroy Huggins AIR INTERCEPT CONTROLLER SUPERVISOR.CHIEF INSPECTOR Work Phone: [facility] Work Phone: 06-21-2005 tetanus toxoid, redu elana diphtheria toxoid, and acellular pertussis vaccine, adsorbed Fidencioleroy Fonghoney AIR INTERCEPT CONTROLLER SUPERVISOR.CHIEF INSPECTOR Work Phone: [facility] Work Phone: 05-22-1995 diphtheria and tetan us toxoids, adsorbed for pediatric use Fidencio Bhavna AIR INTERCEPT CONTROLLER SUPERVISOR.CHIEF INSPECTOR Work Phone: [facility] Work Phone: Payers Date Payer Category Payer Medicare [id number] 2021 Medicare [id number] Social History Date Type Detail Facility Tobacco smoking status NHIS Never smoked tobacco [facility] Work Phone: Start: 01-30-2022 End: 10-11-2022 Alcohol intake Current non-drinker of alcohol (finding) [facility] Start: 1950 Sex Assigned At Not on file [facility] Start: 10-10-2022 End: 10-11-2022 [facility] Work Phone: Start: 10-10-2022 End: 10-11-2022 Tobacco use panel [facility] Work Phone: How hard is it for y ou to pay for the very basics like food, housing, medical care, and heating Not very hard [facility] Work Phone: (I/We) worried wheth er (my/our) food would run out before (I/we) got money to buy more. Never true [facility] Work Phone: In the past 12 month s, has lack of transportation kept you from medical appointments or from getting medications? No [facility] Work Phone: In the past 12 month s, was there a time when you were not able to pay the mortgage or rent on time? No [facility] Work Phone: Medical Equipment Procedure Code Equipment Code Equipment Origin al Text Equipment Identifier Dates Kit Stimulan Rap id Cure Calcium Sulfate Bone Graft Kit Paste Bead 10cc 25cc - [id number] FDA Start: 10-11-2022 Set Split Cath I ii 14fr 18ga Straight Triniflex 28cm Catheter Basic - [id number] Start: 10-20-2022 Cement Refobacin Bone Sterile Latex Free Disposable - [id number] Start: 10-11-2022 [place] Imp Hip Fem Prstlc Lt [id number] Start: 10-11-2022 Head Praveena 43 mm Ball Unipolar Modular Orthocentric Design Hip Femur - [id number] Start: 10-11-2022 Clinical Notes 02-08-2005 to [...] have any questions, you can call Nurse construction manager back. documented in this encounter [facility] 10-21-2022 Note HNO ID: [id number] Author: Georgina Ochoa RN Service: ? Author Type: Registered Nurse Type: Progress Notes Filed: 10/21/2022 1:29 PM Note Text: Treatment initiated with lines in reverse. 2000mL removed, 1.5L net [facility] 10-21-2022 [facility] 10-17-2022 Note HNO ID: [id number] Author: Carmen Rich RN Service: ? Author Type: Registered Nurse Type: Nursing Progress Note Filed: 10/17/2022 9:59 AM Note Text: Dr Golden aware of elevated bp and sepsis advisory flag. [facility] 10-16-2022 Note [facility] 10-16-2022 [facility] 10-16-2022 [facility] 10-15-2022 [facility] 10-15-2022 [facility] 10-14-2022 [facility] 10-14-2022 Note HNO ID: [id number] Author: Georgina Ochoa RN Service: ? Author Type: Registered Nurse Type: Progress Notes Filed: 10/14/2022 1:54 PM Note Text: Treatment initiated without difficulty. 1500mL removed, 1L net [facility] 10-14-2022 Note [facility]-13-[facility]22 [facility] 10-12-2022 [facility]12-[facility]22 [facility] 10[facility]12-2022 [facility] 10-11-2022 [facility] 10[facility]11-[facility]22 [facility] 10-11-[facility]22 [facility] 10-11-2022 [facility] 10[facility]11-2022 [facility] 10[facility]10-2022 Note [facility] 10-10-2022 Note [facility] 10-10-2022 Note HNO ID: [id number] Author: Joanne Chavez RN Service: ? Author Type: Registered Nurse Type: Nursing Progress Note Filed: 10/10/2022 12:14 AM Note Text: This nurse receives report and resumes patient care at this time. [facility] 01-31-2022 Note HNO ID: [id number] Author: RT Henna(R) Service: Radiology Author Type: [...] RT Henna(R) January 31, 2022 8:50 AM [facility] 01-31-2022 Miscellaneous Notes Patient given results and verbalized understanding of instructions given. Seema Novak No abnormal findings noted on x-ray. Continue supportive therapies as discussed. Follow-up with PCP if symptoms or not improving. Fidencio Huggins APRN.CNP documented in this encounter [facility] 01-30-2022 Note HNO ID: [id number] Author: Fidencio Huggins APRN.CNP Service: ? Author [...] (hypertension) Hyperlipidemia Hypothyroidism Macular degeneration optho in [place] Obesity (BMI 30.0-34.9) Osteopenia Personal history of [...] joint pain. Negativ (more content not included)... [facility] 01-30-2022 History of Present illness Narrative [...] (hypertension) Hyperlipidemia Hypothyroidism Macular degeneration optho in [place] Obesity (BMI 30.0-34.9) Osteopenia Personal history of [...] of care. This note was generated using Figma software. It may contain errors in wording, punctuation, or spelling. Fidencio Huggins APRN.JULES documented in this encounter [facility] 10-01-2021 Note HNO ID: [id number] Author: Jesusita Rivera PA-C Service: ? Author Type: Physician Buying Intern Type: Progress Notes Filed: 10/01/2021 1:17 PM Note Text: This note was created using Bookatable (Livebookings)ter. Subjective Kaia Hale is a 71 year [...] - Hypothyroidism - Macular degeneration optho in [place] - Obesity (BMI 30.0-34.9) - Osteopenia - [...] sounds: Normal br (more content not included)... [facility] 10-01-2021 Note HNO ID: [id number] Author: RT Veronika(R) Service: ? Author Type: Vp Public Relations Type: Progress Notes Filed: 10/01/2021 12:53 PM [...] RT Veronika(R) October 01, 2021 12:32 PM [facility] 07-25-2021 Note HNO ID: [id number] Author: Rhett Stephenson APRN.CHIEF INSPECTOR Service: ? Author Type: Nurse Practitioner Type: [...] flu and covid. Patient not known to [facility], denies hx of renal/hepatic dysfunction. .Patient presents [...] - Hypothyroidism - Macular degeneration optho in [place] - Obesity (BMI 30.0-34.9) - Osteopenia - [...] adenopathy. Right cervica (more content not included)... [facility] 07-25-2021 Influenza virus A and B RNA and SARS-CoV-2 (COVID-19) N gene panel FELA+probe (Resp) COVID 19 RESULT: SARS-CoV-2 (Agent of COVID-19) Not Detected by RT-PCR or equivalent method. atilio [id number]_Tojrx[employer], [employer] (TRUE)_EUA This test has been authorized by the FDA under an Emergency Use Authorization (EUA). INFLUENZA A PCR: Negative for Influenza A by RT-PCR INFLUENZA B PCR: Negative for Influenza B by RT-PCR [facility] documented as of this encounter (statuses as of 01/31/2022) [facility]09-[facility]-2005 History of Past illness Narrative* Problem Noted Date Resolved Date Schizoaffective disorder 02/08/2005 008 Osteoporosis 09/23/2019 documented as of this encounter (statuses as of 01/31/2022) [facility] History of Past illness Narrative* Problem Noted Date Diagnosed Date Resolved Date Schizoaffective disorder 02/08/200504/2008 Osteoporosis 09/23/2019 documented as of this encounter (statuses as of 12/07/2022) [facility] Diagnosis Foot injury, right, initial encounter- Primary documented in this encounter [facility] Diagnostic Procedure Only (Urgent) - Closed Specialty Diagnoses / Procedures Referred By Contac t Referred To Contact XR IMAGING Diagnoses Foot injury, right, initial encounter Procedures XR FOOT GENERAL 3V AP/LAT/OBL RIGHT RADEX FOOT COMPLETE MINIMUM 3 VIEWS Fidencio Huggins APRN.CNP [address] [place] [address] Xr Imaging Referral ID Status Reason Start Date Expiration Date V isits Requested Visits Authorized [id number] Closed Auto-Generate d Referral 01/30/2022 03/01/2023 1 1 [facility] Summary Purpose Family History No Family [...] or prosecute any alcohol or drug abuse patient.[facility] the event this information is protected by the Federal Confidentiality of Alcohol and Drug Abuse Patient Records regulations: The Federal rules restrict any use of the information to criminally investigate or prosecute any alcohol or drug abuse patient.[facility] the event this information is protected by the Federal Confidentiality of Alcohol and Drug Abuse Patient Records regulations: The Federal rules restrict any use of the information to criminally investigate or prosecute any alcohol or drug abuse patient.[facility] Reason for Visit (unrecogniz ed section and content) Reason Comments Results Reason Comments Results, Lab INFORMATION SOURCE (unrecogn ized section and content) DATE CREATED AUTHOR AUTHOR'S ANG WILSON 11/10/2022 [facility] nt Care Teams (unrecognized sec tion and [...] BE BASED ON THE PRIMARY CLINICAL RECORDS. [facility] provides no warranty or guarantee of the accuracy or completeness of information in this document.
== END | disposition home or self-care (01) ==
PROVIDERS: PCP Family Medicine Geriatric Medicine; Referring Provider Family Medicine Geriatric Medicine; Visit Provider Family Medicine Geriatric Medicine
DX: R10.9 Unspecified abdominal pain (principal); R19.7 Diarrhea, unspecified
CPT/HCPCS: 74019

== ENCOUNTER → 2023-07-05 | Outpatient (CLI) | payer MEDICARE, SELFPAY ==
--- OUTSIDE RECORDS SUMMARY | 2023-07-05 19:16 | XMS RPT_ITS | CCD ---
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 Name Role Phone Tamara Dial Bhaskar Unavailable Dial, Tamara N Unavailable Nae Pan Unavailable [phone] DialHeatherTamara N Unavailable Unavailable Primary Care Provider UnavailSANDIP Montoya Admitting Unavailable KAN SANCHEZ Attending Unavailable CICI ORELLANA Consulting Unavailable Raji Herrmann Chi Primary Care Provider Allergies Allergy Classification Reported Allergen(s) Allergy Type Date of Onset Reaction(s) Facility (4 sources) Cetirizine; Translations: [CETIRIZINE HCL] Drug Allergy 5 Shortness of Breath [facility] Work Phone: (3 sources) HISMANOL [Other] Propensity to adverse reactions 5 Shortness of Breath [facility] Work Phone: (3 sources) PROPANOLOL [Other] Propensity to adverse reactions 5 Shortness of Breath [facility] Work Phone: (1 source) OTHER; Translations: [OTHER] Propensity to adverse reactions (disorder) 5 [facility] Repository Medications Completed/Discontinued Medications Medication Drug Class(es) Dates Sig (Normalized) Sig (Original) [id number] 200 actuat albuterol 0.09 mg/actuat metered dose [...] Translations: [Prosthetic hip infection, initial encounter (FORMERLY [facility])] Onset: 10-09-2022 Chronic Other injuries and conditions [...] 15:04-0400 Body temperature 97.5 [degF] Fidencio Huggins ANESTHESIA ATTENDING.MANAGER MINING Work Phone: [facility] 01-30-2022 15:04-0400 Body weight 83.92 kg Fidencio Huggins ANESTHESIA ATTENDING.MANAGER MINING Work Phone: [facility] 01-30-2022 15:04-0400 Diastolic blood pressure 88 mm[Hg] Fidencio Huggins ANESTHESIA ATTENDING.MANAGER MINING Work Phone: [facility] 01-30-2022 15:04-0400 Heart rate 85 /min Fidencio Huggins ANESTHESIA ATTENDING.MANAGER MINING Work Phone: [facility] 01-30-2022 15:04-0400 Respiratory rate 18 /min Fidencio Huggins ANESTHESIA ATTENDING.MANAGER MINING Work Phone: [facility] 01-30-2022 15:04-0400 SaO2% (BldA) [Mass fraction] 97 % Fidencio Huggins ANESTHESIA ATTENDING.MANAGER MINING Work Phone: [facility] 01-30-2022 15:04-0400 Systolic blood pressure 126 mm[Hg] Fidencio Huggins ANESTHESIA ATTENDING.MANAGER MINING Work Phone: [facility] 10-06-2015 14:40-0400 BMI (Body Mass Index) 29.23 kg/m2 [facility] Work Phone: 10-06-2015 14:40-0400 Height 160.02 cm [facility] Work Phone: 10-06-2015 14:40-0400 Weight 74.84 kg [facility] Work Phone: Encounters Encounter Date Encounter Type Care Provider Facility Start: 12-06-2022 ambulatory Maude SMITH [facility] Procedures Date Procedure Procedure Detail Performing Clinician Start: 10-16-2022 Electrocardiogram ZEINAB MAJANO Start: 10-10-2022 Antibody screen SANDIP MAJANO Plan of Treatment Date Care Activity Detail Author Start: 10-21-2025 DIABETES SCREEN DIABETES SCREEN [facility] Start: 03-18-2024 LIPID SCREEN LIPID SCREEN [facility] Start: 01-20-2023 Influenza vaccination INFLUENZA (#1) [facility] Start: 05-22-2022 ADVANCE DIRECTIVE DISCUSSION ADVANCE DIRECTIVE DISCUSSION [facility] Start: 03-18-2022 DIABETES SCREEN DIABETES SCREEN [facility] Start: 01-20-2022 Influenza vaccination INFLUENZA (#1) [facility] Start: 01-07-2022 COVID-19 VACCINE (5 - Booster for Moderna series) COVID-19 VACCINE (5 - Booster for Moderna series) [facility] Start: 11-02-2021 COVID-19 VACCINE (5 - Booster for Moderna series) COVID-19 VACCINE (5 - Booster for Moderna series) [facility] Start: 05-22-2021 ADVANCE DIRECTIVE DISCUSSION ADVANCE DIRECTIVE DISCUSSION [facility] Start: 10-06-2020 ANNUAL PCP TEAM CHRONIC DISEASE VISIT ANNUAL PCP TEAM CHRONIC DISEASE VISIT [facility] Start: 06-01-2019 Mammography MAMMOGRAM [facility] Start: 04-12-2017 End: 04-12-2017 Occupational Therapy General Occupational Therapy General Rehab [facility], [address] [place] [address], [id number] [facility] Work Phone: Start: 04-11-2017 End: 04-11-2017 Appointment Appointment [facility] Work Phone: Start: 03-29-2017 End: 03-29-2017 Appointment Appointment [facility] Work Phone: Start: 03-09-2017 End: 03-09-2017 Appointment Appointment [facility] Work Phone: Start: 06-01-2016 End: 06-01-2016 Occupational Therapy General Occupational Therapy [facility], [address] [place] [address], [id number] [facility] Work Phone: Start: 10-28-2015 Colonoscopy COLONOSCOPY [facility] Start: 10-28-2015 COLORECTAL CANCER SCREENING COLORECTAL CANCER SCREENING [facility] Start: 10-07-2015 End: 10-07-2015 Occupational Therapy General Occupational Therapy [facility], [address] [place] [address], [phone] [facility] Work Phone: Start: 06-21-2015 Urine microalbumin profile DTAP,TDAP,TD (3 - Td or Tdap) [facility] Start: 03-22-2014 PNEUMOCOCCAL: 65+ (2 - PCV) PNEUMOCOCCAL: 65+ (2 - PCV) [facility] Start: 1993 COLOGUARD (FIT-DNA) COLOGUARD (FIT-DNA) [facility] Start: [address] COLONOGRAPHY [facility] Start: 1993 FECAL OCCULT BLOOD FECAL OCCULT BLOOD [facility] Start: 1993 SIGMOIDOSCOPY SIGMOIDOSCOPY [facility] Start: 1966 BP CONTROLLED (<130/80) BP CONTROLLED (<130/80) [facility] Start: 1966 HEPATITIS C SCREENING HEPATITIS C SCREENING [facility] Patient Education TRIGGER%20FINGER [facility] Work Phone: Immunizations Immunization Date Immunization Notes Care Provider Deyvi bowden 03-06-2019 influenza, high dose seasonal, preservative-free Fidencio Pendlebury ANESTHESIA ATTENDING.MANAGER MINING Work Phone: [facility] 03-06-2019 Seasonal, quadrivale nt, recombinant, injectable influenza vaccine, preservative free Fidencio Pendlebury ANESTHESIA ATTENDING.MANAGER MINING Work Phone: [facility] 03-10-2018 zoster vaccine recombinant Fidencio Pendhoney ANESTHESIA ATTENDING.MANAGER MINING Work Phone: [facility] 02-19-2018 influenza, seasonal, injectable, preservative free Fidencio Pendlebury ANESTHESIA ATTENDING.MANAGER MINING Work Phone: [facility] 12-19-2017 zoster vaccine recombinant Fidencio Fonghoney ANESTHESIA ATTENDING.MANAGER MINING Work Phone: [facility] 03-22-2013 pneumococcal polysaccharide vaccine, 23 valent Fidencio Huggins ANESTHESIA ATTENDING.MANAGER MINING Work Phone: [facility] 05-11-2009 novel influenza-H1N1 -09, preservative-free, injectable Fidencio Huggins ANESTHESIA ATTENDING.MANAGER MINING Work Phone: [facility] 03-05-2006 influenza virus vacc ine, whole virus Fidencioleroy Huggins ANESTHESIA ATTENDING.MANAGER MINING Work Phone: [facility] Work Phone: 06-21-2005 tetanus toxoid, redu elana diphtheria toxoid, and acellular pertussis vaccine, adsorbed Fidencioleroy Fonghoney ANESTHESIA ATTENDING.MANAGER MINING Work Phone: [facility] Work Phone: 05-22-1995 diphtheria and tetan us toxoids, adsorbed for pediatric use Fidencio Bhavna ANESTHESIA ATTENDING.MANAGER MINING Work Phone: [facility] Work Phone: Payers Date Payer Category Payer Medicare [id number] 2021 Medicare [id number] Social History Date Type Detail Facility Tobacco smoking status NHIS Never smoked tobacco [facility] Work Phone: Start: 01-30-2022 End: 10-11-2022 Alcohol intake Current non-drinker of alcohol (finding) [facility] Start: 1950 Sex Assigned At Not on file [facility] Start: 10-10-2022 End: 10-11-2022 [facility] Work [facility]: Start: 10-10-2022 End: 10-11-2022 Tobacco use panel [facility] Work Phone: How hard is it for y ou to pay for the very basics like food, housing, medical care, and heating Not very hard [facility] Work Phone: (I/We) worried wheth er (my/our) food would run out before (I/we) got money to buy more. Never true [facility] Work Phone: In the past 12 month s, has lack of transportation kept you from medical appointments or from getting medications? No [facility] Work Phone: In the past 12 month s, was there a time when you were not able to pay the mortgage or rent on time? No [facility] Work Phone: Medical Equipment Procedure Code Equipment Code Equipment Origin al Text Equipment Identifier Dates Kit Stimulan Rap id Cure Calcium Sulfate Bone Graft Kit Paste Bead 10cc 25cc - [id number] FDA Start: 10-11-2022 Set Split Cath I ii 14fr 18ga Straight Triniflex 28cm Catheter Basic - [id number] Start: 10-20-2022 Cement Refobacin Bone Sterile Latex Free Disposable - [id number] Start: 10-11-2022 [place] Imp Hip Fem Prstlc Lt [id number] Start: 10-11-2022 Head Praveena 43 mm Ball Unipolar Modular Orthocentric Design Hip Femur - [id number] Start: 10-11-2022 Clinical Notes 02-08-2005 to [...] have any questions, you can call Nurse gas combustion engineer back. documented in this encounter [facility] 10-21-2022 Note HNO ID: [id number] Author: Georgina Ochoa RN Service: ? Author Type: Registered Nurse Type: Progress Notes Filed: 10/21/2022 1:29 PM Note Text: Treatment initiated with lines in reverse. 2000mL removed, 1.5L net [facility] 10-21-2022 [facility] 10-17-2022 Note HNO ID: [id number] Author: Carmen Rich RN Service: ? Author Type: Registered Nurse Type: Nursing Progress Note Filed: 10/17/2022 9:59 AM Note Text: Dr Golden aware of elevated bp and sepsis advisory flag. [facility] 10-16-2022 Note [facility] 10-16-2022 [facility] 10-16-2022 [facility] 10-15-2022 [facility] 10[facility]15-2022 [facility] 10-14-2022 [facility] 10-14-2022 Note HNO ID: [id number] Author: Georgina Ochoa RN Service: ? Author Type: Registered Nurse Type: Progress Notes Filed: 10/14/2022 1:54 PM Note Text: Treatment initiated without difficulty. 1500mL removed, 1L net [facility] 10-14-2022 [facility]13[facility] 10[facility]12-[facility]22 [facility]12-[facility] 10-12-[facility] 10-11-2022 [facility] 10[facility]11-[facility]22 [facility] 10[facility]11-[facility]22 [facility] 10-11-2022 [facility] 10[facility]11-2022 [facility] 10-10-2022 [facility] 10-10-2022 [facility] 10-10-2022 Note HNO ID: [id number] Author: Joanne Chavez RN Service: ? Author Type: Registered Nurse Type: Nursing Progress Note Filed: 10/10/2022 12:14 AM Note Text: This nurse receives report and resumes patient care at this time. [facility] 01-31-2022 Note HNO ID: [id number] Author: RT Henna(R) Service: Radiology Author Type: [...] RT Henna(R) January 31, 2022 8:50 AM [facility] 01-31-2022 Miscellaneous Notes Patient given results and verbalized understanding of instructions given. Seema Novak No abnormal findings noted on x-ray. Continue supportive therapies as discussed. Follow-up with PCP if symptoms or not improving. Fidencio Huggins APRN.CNP documented in this encounter [facility] 01-30-2022 Note HNO ID: [id number] Author: Fidencio Huggins APRN.CNP Service: ? Author [...] (hypertension) Hyperlipidemia Hypothyroidism Macular degeneration optho in [place] Obesity (BMI 30.0-34.9) Osteopenia Personal history of [...] joint pain. Negativ (more content not included)... [facility] 01-30-2022 History of Present illness Narrative [...] (hypertension) Hyperlipidemia Hypothyroidism Macular degeneration optho in [place] Obesity (BMI 30.0-34.9) Osteopenia Personal history of [...] of care. This note was generated using Eco-Vacay software. It may contain errors in wording, punctuation, or spelling. Fidencio Huggins APRN.JULES documented in this encounter [facility] 10-01-2021 Note HNO ID: [id number] Author: Jesusita Rivera PA-C Service: ? Author Type: Physician Head Of Biology Type: Progress Notes Filed: 10/01/2021 1:17 PM Note Text: This note was created using Tigerstripeter. Subjective Kaia Hale is a 71 year [...] - Hypothyroidism - Macular degeneration optho in [place] - Obesity (BMI 30.0-34.9) - Osteopenia - Personal history of colonic polyps Colon polyps - Schizophrenia ([facility]LY [facility]) Dr. Shabazz - Unspecified hemorrhoids without mention [...] sounds: Normal br (more content not included)... [facility] 10-01-2021 Note HNO ID: [id number] Author: RT Veronika(R) Service: ? Author Type: Solar Panel Technician Type: Progress Notes Filed: 10/01/2021 12:53 [...] RT Veronika(R) October 01, 2021 12:32 PM [facility] 07-25-2021 Note HNO ID: [id number] Author: Rhett Stephenson APRN.MANAGER MINING Service: ? Author Type: Nurse Practitioner Type: [...] covid. Patient not known to [facility], denies hx of renal/hepatic dysfunction. .Patient presents [...] - Hypothyroidism - Macular degeneration optho in [place] - Obesity (BMI 30.0-34.9) - Osteopenia - [...] adenopathy. Right cervica (more content not included)... [facility] 07-25-2021 Influenza virus A and B RNA and SARS-CoV-2 (COVID-19) N gene panel FELA+probe (Resp) COVID 19 RESULT: SARS-CoV-2 (Agent of COVID-19) Not Detected by RT-PCR or equivalent method. atilio [employer] (TRUE)_EUA This test has been authorized by the FDA under an Emergency Use Authorization (EUA). INFLUENZA A PCR: Negative for Influenza A by RT-PCR INFLUENZA B PCR: Negative for Influenza B by RT-PCR [facility] documented as of this encounter (statuses as of 01/31/2022) [facility] History of Past illness Narrative* Problem Noted Date Resolved Date Schizoaffective disorder 02/08/2005 008 Osteoporosis 09/23/2019 documented as of this encounter (statuses as of 01/31/2022) [facility] History of Past illness Narrative* Problem Noted Date Diagnosed Date Resolved Date Schizoaffective disorder 02/08/200504/2008 Osteoporosis 09/23/2019 documented as of this encounter (statuses as of 12/07/2022) [facility] Foot injury, right, initial encounter- Primary [facility] Diagnostic Procedure Only (Urgent) - Closed Specialty Diagnoses / Procedures Referred By Contac t Referred To Contact XR IMAGING Diagnoses Foot injury, right, initial encounter Procedures XR FOOT GENERAL 3V AP/LAT/OBL RIGHT RADEX FOOT COMPLETE MINIMUM 3 VIEWS Fidencio Huggins APRN.CNP [address] [place] [address] Xr Imaging Referral ID Status Reason Start Date Expiration Date V isits Requested Visits Authorized [id number] Closed Auto-Generate d Referral 01/30/2022 03/01/2023 1 1 [facility] Summary Purpose Family History No Family History [...] or prosecute any alcohol or drug abuse patient.[facility] the event this information is protected by the Federal Confidentiality of Alcohol and Drug Abuse Patient Records regulations: The Federal rules restrict any use of the information to criminally investigate or prosecute any alcohol or drug abuse patient.[facility] the event this information is protected by the Federal Confidentiality of Alcohol and Drug Abuse Patient Records regulations: The Federal rules restrict any use of the information to criminally investigate or prosecute any alcohol or drug abuse patient.[facility] Reason for Visit (unrecogniz ed section and content) Reason Comments Results Reason Comments Results, Lab INFORMATION SOURCE (unrecogn ized section and content) DATE CREATED AUTHOR AUTHOR'S ANG WILSON 11/10/2022 [facility] nt Care Teams (unrecognized sec tion [...] BE BASED ON THE PRIMARY CLINICAL RECORDS. [facility] SystemGinger Software [facility]. provides no warranty or guarantee of the accuracy or completeness of information in this document.
== END | disposition home or self-care (01) ==
PROVIDERS: PCP Family Medicine Geriatric Medicine; Referring Provider Family Medicine Geriatric Medicine; Visit Provider Family Medicine Geriatric Medicine
DX: R10.9 Unspecified abdominal pain (principal); R19.7 Diarrhea, unspecified
CPT/HCPCS: 82274; 83630; 87177; 87209; 87493

== ENCOUNTER → 2023-08-23 | Outpatient (CLI) | payer MEDICARE, SELFPAY ==
[2023-08-23 12:27] LABS: Absolute Lymphocyte Count 1.91 X10^3/uL (0.83-4.51); Absolute Neutrophil Count 5.1 X10^3/uL (2.0-7.7); Basophil# 0.04 X10^3/uL; Basophil% 0.5 % (0-1); Eosinophil# 0.22 X10^3/uL; Eosinophils% 2.6 % (0-5); Hemoglobin 13.3 g/dL (12.0-15.0); Lymphocyte # 1.91 X10^3/ul (0.83-4.51); Lymphocyte % 22.4 % (19-41); Mean Corp Hgb Conc 30.2 g/dL (32-36); Mean Corpuscular Hgb 28.5 pg (27.0-32.0); Mean Corpuscular Volume 94.2 fL (81-99); Mean Platelet Vol. 11.3 fl (6.2-12.0); Monocyte# 1.24 X10^3/uL; Monocyte% 14.6 % (0-10); NRBC Flagged by Analyzer 0 % (0-5); Neutrophil # 5.05 X10^3/uL (2.7-7.7); Neutrophil % 59.2 % (47-70); Platelet Count 280 K/mm3 (150-450); RBC Distribution Width CV 13.2 % (11.6-14.6); RBC Distribution Width SD 45.1 fl (35.1-43.9); Red Blood Count 4.67 M/mm3 (4.2-5.4); White Blood Count 8.5 K/mm3 (4.4-11.0)
[2023-08-23 12:42] LABS: Hemoglobin A1c 5.3 % (3.8-5.6); Vitamin D,25 Hydroxy 58.2 ng/mL
[2023-08-23 12:43] LABS: Prothrombin Time (Protime)PT. 13.3 SECONDS (11.7-14.9)
[2023-08-23 12:51] LABS: ALB/GLOB Ratio 0.6 RATIO (0.9-2.4); AST(SGOT) 21 U/L (15-37); Alanine Aminotransfer ALT/SGPT 19 U/L (13-56); Albumin, Serum 3.2 g/dL (3.2-5.0); Alkaline Phosphatase 313 U/L (45-117); Anion Gap 6 (5-15); BUN 11 mg/dL (7-18); BUN/Creat Ratio 15.5 RATIO (10-20); Calcium,Total 9.5 mg/dL (8.5-10.1); Chloride 105 mmol/L (98-107); Cholesterol 131 mg/dL (200); Creatinine, Serum 0.71 mg/dL (0.55-1.02); EST Glomerular Filtration Rate 85 mL/min (>60); Est Glom Filt Rate - Afr Amer 103 mL/min (>60); Glucose 104 mg/dL (74-106); High Density Lipoprotein 51 mg/dL; Protein, Total 8.2 g/dL (6.4-8.2); Sodium Level 137 mmol/L (136-145); Thyroid Stim Hormone (TSH) 1.51 uIU/mL (0.358-3.74); Triglycerides 110 mg/dL; Very Low Density Lipoprotein 22 mg/dL (5-40)
[2023-08-24 21:07] LABS: HCV Quant. RNA PCR HCV Not Detected IU/mL (.)
== END | disposition home or self-care (01) ==
LOC: POLAB3 11:04
PROVIDERS: Internal Medicine; PCP Family Medicine Geriatric Medicine; Visit Provider Family Medicine Geriatric Medicine
DX: I10 Essential (primary) hypertension (principal); K51.90 Ulcerative colitis, unspecified, without complications; E55.9 Vitamin D deficiency, unspecified; K76.0 Fatty (change of) liver, not elsewhere classified; A08.4 Viral intestinal infection, unspecified; R53.81 Other malaise; R07.9 Chest pain, unspecified; R73.09 Other abnormal glucose
CPT/HCPCS: 36415; 80053; 80061; 82306; 83036; 84443; 85025; 85610; 86140; 87522

== ENCOUNTER → 2023-09-11 | Outpatient (CLI) | payer MEDICARE, SELFPAY ==
--- NOTE | 2023-09-11 09:24 | US_ITS ---
STUDY: ABDOMINAL ULTRASOUND - RIGHT UPPER QUADRANT; ELASTOGRAPHY REASON FOR VISIT: Female, 73 years old. Fatty infiltration of the liver. NAFLD. TECHNIQUE: Ultrasound evaluation of the right upper quadrant was performed with real-time and static buck-scale imaging. Point quantification shear wave elastography was performed ([email or web address]). TECHNICAL QUALITY: Adequate. COMPARISON: Comparison is made with prior study dated November 24, 2022. FINDINGS: Liver: The liver measures 16.8 cm. There is increased echogenicity consistent with fatty infiltration. The bile ducts are within normal limits. There is hepatic color flow. The direction of portal flow is hepatopetal. There is no demonstrated mass lesion. Median liver stiffness measured 6.5 kPa. Gallbladder: Normal distended gallbladder. The gallbladder wall measures 3.1 mm. There is a negative sonographic Ventura''s sign. There is no pericholecystic fluid. There is a solitary echogenic gallstone within the gallbladder. The gallstone measures 6.2 cm x 4.1 cm x 5.3 cm Common Bile Duct (C.B.D.): The common bile duct measures 4.4 mm. Pancreas: There is normal echogenicity of the visualized pancreas. There is no demonstrated pancreatic mass or cyst. Right Kidney: Normal size of the right kidney. The right kidney measures 12.2 cm x 5.4 cm x 5.1 cm. Normal renal cortex. The right cortex measures 1.4 cm. There is a 6.2 cm x 7.1 cm x 6.2 cm cyst in the upper pole of the right kidney. There is also evidence of a 4 mm x 4 mm x 2 mm nonobstructive calculus in the upper midportion of the kidney. There is no right hydronephrosis. US/ABD Limited w/ Elastography IMPRESSION: 1. Liver stiffness measures 6.5 kPa compatible with F2-F3 (Mild to moderate liver fibrosis) Metavir score. Electronically Signed: Chan Bowers MD at 14:55 EDT ,
== END | disposition home or self-care (01) ==
LOC: US 09:20
PROVIDERS: PCP Family Medicine Geriatric Medicine; Visit Provider Internal Medicine
DX: K76.0 Fatty (change of) liver, not elsewhere classified (principal)
CPT/HCPCS: 76705; 76981

== ENCOUNTER → 2023-09-20 | Outpatient (CLI) | payer MEDICARE, SELFPAY ==
[2023-09-20 17:42] LABS: Absolute Lymphocyte Count 2.98 X10^3/uL (0.83-4.51); Absolute Neutrophil Count 7.8 X10^3/uL (2.0-7.7); Basophil# 0.06 X10^3/uL; Basophil% 0.5 % (0-1); Eosinophil# 0.17 X10^3/uL; Eosinophils% 1.3 % (0-5); Hematocrit 44.7 % (37-47); Hemoglobin 13.5 g/dL (12.0-15.0); Lymphocyte # 2.98 X10^3/ul (0.83-4.51); Lymphocyte % 23.4 % (19-41); Mean Corp Hgb Conc 30.2 g/dL (32-36); Mean Corpuscular Hgb 28.8 pg (27.0-32.0); Mean Corpuscular Volume 95.3 fL (81-99); Monocyte# 1.61 X10^3/uL; Monocyte% 12.6 % (0-10); NRBC Flagged by Analyzer 0 % (0-5); Neutrophil # 7.84 X10^3/uL (2.7-7.7); Neutrophil % 61.5 % (47-70); POSITIVE DIFFERENTIAL YES; Platelet Count 297 K/mm3 (150-450); RBC Distribution Width CV 13.1 % (11.6-14.6); RBC Distribution Width SD 45.9 fl (35.1-43.9); Red Blood Count 4.69 M/mm3 (4.2-5.4); White Blood Count 12.8 K/mm3 (4.4-11.0)
[2023-09-20 17:46] LABS: Differential Indicated SCAN CRITERIA MET
[2023-09-20 18:08] LABS: ALB/GLOB Ratio 0.6 RATIO (0.9-2.4); AST(SGOT) 28 U/L (15-37); Alanine Aminotransfer ALT/SGPT 33 U/L (13-56); Albumin, Serum 3.4 g/dL (3.2-5.0); Alkaline Phosphatase 311 U/L (45-117); Anion Gap 11 (5-15); BUN 7 mg/dL (7-18); BUN/Creat Ratio 9.1 RATIO (10-20); Calcium,Total 9.7 mg/dL (8.5-10.1); Chloride 105 mmol/L (98-107); Creatinine, Serum 0.77 mg/dL (0.55-1.02); EST Glomerular Filtration Rate 77 mL/min (>60); Est Glom Filt Rate - Afr Amer 94 mL/min (>60); Globulin 5.3 g/dL (2.2-4.2); Glucose 97 mg/dL (74-106); Potassium 3.4 mmol/L (3.5-5.1); Protein, Total 8.7 g/dL (6.4-8.2); Rheumatoid Factor < 10.0 IU/mL (<15); Sodium Level 137 mmol/L (136-145)
[2023-09-20 18:15] LABS: Differential Comment SCANNED; Erythrocyte Sedimentation Rate 72 mm/hr (0-30)
[2023-09-20 18:37] LABS: Hepatitis B Surface Antibody Non-Reactive; Hepatitis B Surface Antigen Non-Reactive (Nonreactive); Hepatitis C Antibody Non-Reactive (Nonreactive)
[2023-09-21 13:27] LABS: Pathologist Review Reviewed
[2023-09-22 12:10] LABS: CCP IgG Antibodies 13 units (0-19)
== END | disposition home or self-care (01) ==
LOC: MTLAB 15:11
PROVIDERS: PCP Family Medicine Geriatric Medicine; Referring Provider Internal Medicine Rheumatology; Visit Provider Internal Medicine Rheumatology
DX: M06.4 Inflammatory polyarthropathy (principal); Z79.899 Other long term (current) drug therapy; M17.0 Bilateral primary osteoarthritis of knee; M47.897 Other spondylosis, lumbosacral region
CPT/HCPCS: 36415; 80053; 85025; 85652; 86140; 86200; 86431; 86706; 86803; 87340

== ENCOUNTER → 2023-09-25 | Outpatient (CLI) | payer MEDICARE, SELFPAY ==
--- NOTE | 2023-09-25 16:15 | RAD_ITS ---
STUDY: X-RAY - LEFT KNEE REASON FOR EXAM: Female, 73 years old. PAIN TECHNIQUE: 3 views of the left knee. COMPARISON: None. FINDINGS: There is a left total knee arthroplasty with patellar resurfacing. The orthopedic hardware components are intact. There is no periprosthetic fracture. Normal proximal tibiofibular articulation. RAD/Knee 3 Views IMPRESSION: Left total knee arthroplasty, with no periprosthetic fracture. Electronically Signed: Ramon Denson MD at 8:24 EDT ,
[2023-09-25 16:53] LABS: Absolute Lymphocyte Count 2.51 X10^3/uL (0.83-4.51); Absolute Neutrophil Count 8.2 X10^3/uL (2.0-7.7); Basophil# 0.05 X10^3/uL; Basophil% 0.4 % (0-1); Eosinophils% 0.8 % (0-5); Hematocrit 44.2 % (37-47); Hemoglobin 13.5 g/dL (12.0-15.0); Lymphocyte # 2.51 X10^3/ul (0.83-4.51); Mean Corp Hgb Conc 30.5 g/dL (32-36); Mean Corpuscular Hgb 28.7 pg (27.0-32.0); Mean Platelet Vol. 11.1 fl (6.2-12.0); Monocyte# 2.12 X10^3/uL; NRBC Flagged by Analyzer 0 % (0-5); Neutrophil # 8.19 X10^3/uL (2.7-7.7); POSITIVE DIFFERENTIAL YES; Platelet Count 284 K/mm3 (150-450); RBC Distribution Width CV 13.1 % (11.6-14.6); White Blood Count 13.2 K/mm3 (4.4-11.0)
[2023-09-25 17:18] LABS: Anion Gap 8 (5-15); BUN 9 mg/dL (7-18); BUN/Creat Ratio 13.2 RATIO (10-20); Calcium,Total 9.7 mg/dL (8.5-10.1); Chloride 103 mmol/L (98-107); Creatinine, Serum 0.68 mg/dL (0.55-1.02); EST Glomerular Filtration Rate 89 mL/min (>60); Est Glom Filt Rate - Afr Amer 108 mL/min (>60); Glucose 103 mg/dL (74-106); Potassium 3.6 mmol/L (3.5-5.1); Sodium Level 136 mmol/L (136-145)
[2023-09-25 17:19] LABS: Differential Indicated SCAN CRITERIA MET
[2023-09-25 17:31] LABS: Erythrocyte Sedimentation Rate 84 mm/hr (0-30)
--- NOTE | 2023-09-25 18:31 | STRESSREP ---
Stress Test Report Pharmacologic myocardial perfusion stress test. 73-year-old lady with a history of chest pain Resting EKG demonstrates sinus rhythm with a rate of 85 bpm. Resting blood pressure is 124/74 mmHg. 0.4 mg of regadenoson was infused per usual protocol followed by rapid intravenous saline flush injection. Continuous EKG monitoring was performed. The maximum heart rate was 108 bpm which was 74% of max impacted heart rate the maximum workload was 1 metabolic equivalent. At rest there were no ST or T wave changes noted to suggest ischemia and at peak infusion nonspecific ST changes were noted which did not meet the criteria for ischemia. No clinical angina is noted. The final blood pressure was 110/68 mmHg. Myocardial perfusion protocol. 11.1 mCi of technetium 99m sestamibi was injected at rest. 0.4 mg of regadenoson was infused per usual protocol. At peak infusion 34.3 mCi of technetium 99m sestamibi was injected stress images were obtained stress and rest images were reconstructed and compared in the short axis vertical long and horizontal long axis. Gated images were also obtained. Perfusion SPECT analysis: Review of the stress images demonstrate normal uptake of tracer noted in all areas of the myocardium. The resting images similar demonstrated normal uptake of tracer noted in all areas of the myocardium. No areas of reversibility are noted to suggest ischemia and no previous infarct is noted. Gated SPECT analysis: The gated ejection fraction is 70%. Conclusion: Normal pharmacologic myocardial perfusion stress test. Preserved ejection fraction.
[2023-09-26 14:55] LABS: Pathologist Review Reviewed
== END | disposition home or self-care (01) ==
PROVIDERS: PCP Family Medicine Geriatric Medicine; Referring Provider Family Medicine Geriatric Medicine; Visit Provider Family Medicine Geriatric Medicine
DX: M25.562 Pain in left knee (principal); M25.552 Pain in left hip; T84.52XA Infection and inflammatory reaction due to internal left hip prosthesis, initial encounter; R07.9 Chest pain, unspecified
CPT/HCPCS: 36415; 73562; 78452; 80048; 85025; 85652; 86140; 93017; A9500; A4216; J2785

== ENCOUNTER → 2023-10-04 | Outpatient (CLI) | payer MEDICARE, SELFPAY ==
--- NOTE | 2023-10-04 16:15 | MRI_ITS ---
EXAM: MR LEFT LOWER EXTREMITY WITHOUT AND WITH INTRAVENOUS CONTRAST, HIP CLINICAL INDICATION: INFECTED PROTHESIS OF HIP, PAIN TECHNIQUE: Multiplanar and multisequence MR images of the left hip without and with intravenous contrast. CONTRAST: 13 cc clariscan COMPARISON: May 10, 2023 exam FINDINGS: Artifacts: Susceptibility artifact from left total hip arthroplasty limits evaluation of the adjacent tissues. Soft tissues: There appears to be a fluid collection about the left hip laterally with a craniocaudal dimension of 11.2 cm and a medial to lateral dimension of up to 3.4 cm. This could represent an infected bursa or abscess potentially. Scar tissue identified in the subcutaneous tissues posterolaterally at the incision site. No soft tissue mass. Bones/joints: No large hip joint effusion. Degenerative changes of the spine. Other: No significant free fluid in the pelvis. Bladder is decompressed in appearance. MRI/Lower Ext Joint Only W/WO Cont IMPRESSION: Be seen on the coronal fluid sensitive sequences, is what appears to be fluid collection about the left hip laterally with a craniocaudal dimension of 11.2 cm and a medial to lateral dimension of up to 3.4 cm. This could represent an infected bursa or abscess potentially in the appropriate clinical setting. Electronically Signed: Harvey Montes MD at 21:52 EDT ,
== END | disposition home or self-care (01) ==
LOC: MRI 15:50
PROVIDERS: PCP Family Medicine Geriatric Medicine; Referring Provider Family Medicine Geriatric Medicine; Visit Provider Family Medicine Geriatric Medicine
DX: T84.52XA Infection and inflammatory reaction due to internal left hip prosthesis, initial encounter (principal); M25.552 Pain in left hip
CPT/HCPCS: 73723

== ENCOUNTER → 2023-11-03 | Outpatient (CLI) | payer MEDICARE, SELFPAY ==
--- NOTE | 2023-11-03 09:23 | US_ITS ---
STUDY: SUPERFICIAL ULTRASOUND - LEFT HIP. REASON FOR EXAM: Female, 73 years old. LEFT HIP PAIN TECHNIQUE: A superficial ultrasound was performed with real-time and static buck-scale imaging. COMPARISON: None. FINDINGS: The left lateral thigh was examined with ultrasound. No abnormal fluid collection is seen. US/Ext Non Vasc Limited/Soft Tiss IMPRESSION: No abnormal fluid collection is seen at this time. Electronically Signed: Chan Bowers MD at 14:13 EDT ,
== END | disposition home or self-care (01) ==
LOC: RAD 09:18
PROVIDERS: PCP Family Medicine Geriatric Medicine; Referring Provider Specialist; Visit Provider Specialist
DX: M96.842 Postprocedural seroma of a musculoskeletal structure following a musculoskeletal system procedure (principal); S72.142S Displaced intertrochanteric fracture of left femur, sequela
CPT/HCPCS: 76882

== ENCOUNTER → 2023-11-20 | Outpatient (CLI) | payer MEDICARE, SELFPAY ==
[2023-11-20 17:27] LABS: Basophil# 0.04 X10^3/uL; Basophil% 0.3 % (0-1); Eosinophil# 0.14 X10^3/uL; Hematocrit 43.9 % (37-47); Hemoglobin 13.7 g/dL (12.0-15.0); Lymphocyte % 18.2 % (19-41); Mean Corp Hgb Conc 31.2 g/dL (32-36); Mean Corpuscular Hgb 29.7 pg (27.0-32.0); Mean Corpuscular Volume 95.2 fL (81-99); Mean Platelet Vol. 11.4 fl (6.2-12.0); Monocyte% 16.8 % (0-10); NRBC Flagged by Analyzer 0 % (0-5); Neutrophil % 63.1 % (47-70); POSITIVE DIFFERENTIAL YES; Platelet Count 300 K/mm3 (150-450); RBC Distribution Width CV 12.3 % (11.6-14.6); RBC Distribution Width SD 42.7 fl (35.1-43.9); Red Blood Count 4.61 M/mm3 (4.2-5.4); White Blood Count 14.3 K/mm3 (4.4-11.0)
[2023-11-20 17:29] LABS: Differential Indicated SCAN CRITERIA MET
[2023-11-20 17:50] LABS: Differential Comment SCANNED
[2023-11-20 18:26] LABS: ALB/GLOB Ratio 0.7 RATIO (0.9-2.4); AST(SGOT) 30 U/L (15-37); Alanine Aminotransfer ALT/SGPT 11 U/L (13-56); Albumin, Serum 3.6 g/dL (3.2-5.0); Alkaline Phosphatase 300 U/L (45-117); Anion Gap 11 (5-15); BUN 9 mg/dL (7-18); BUN/Creat Ratio 11.1 RATIO (10-20); Chloride 101 mmol/L (98-107); Creatinine, Serum 0.81 mg/dL (0.55-1.02); EST Glomerular Filtration Rate 73 mL/min (>60); Est Glom Filt Rate - Afr Amer 89 mL/min (>60); Globulin 5.1 g/dL (2.2-4.2); Glucose 108 mg/dL (74-106); Potassium 3.7 mmol/L (3.5-5.1); Protein, Total 8.7 g/dL (6.4-8.2); Sodium Level 136 mmol/L (136-145)
--- NOTE | 2023-11-20 18:54 | CT_ITS ---
EXAM: CT ABDOMEN AND PELVIS WITH INTRAVENOUS CONTRAST CLINICAL INDICATION: ABD PAIN TECHNIQUE: Helically acquired images were obtained of the abdomen and pelvis with intravenous contrast. This CT exam was performed using one or more of the following dose reduction techniques: automated exposure control, adjustment of the mA and/or kV according to patient size, and/or use of iterative reconstruction technique. CONTRAST: IV 100mL [id number] COMPARISON: No relevant prior studies available. FINDINGS: LOWER THORAX: Unremarkable. Lung bases are clear. No cardiomegaly. No significant pericardial effusion. ABDOMEN: LIVER: Unremarkable. Homogeneous. No focal mass. GALLBLADDER AND BILE DUCTS: Unremarkable. No calcified gallstones. No gallbladder distention or wall edema. No intra- or extrahepatic biliary ductal dilation. PANCREAS: Unremarkable. No focal cystic or solid mass. SPLEEN: Unremarkable. Normal size without focal cystic or solid mass. ADRENALS: Unremarkable. No nodules. KIDNEYS AND URETERS: Cysts in the right kidney. No follow-up imaging is necessary. Normal renal size and position. No hydronephrosis. STOMACH AND BOWEL: Unremarkable. No stomach or bowel distention. No focal inflammatory change. PELVIS: APPENDIX: No evidence of acute appendicitis. BLADDER: Unremarkable. REPRODUCTIVE: Unremarkable as visualized. No mass. ABDOMEN and PELVIS: INTRAPERITONEAL SPACE: Unremarkable. No ascites or other fluid collection. No free air. BONES/JOINTS: There is a compression deformity of L3 of uncertain age. There is beam hardening artifact from a left hip prosthesis. There is a fluid collection anterior to proximal portion of the prosthesis that measures 3.8 x 2.0 x 5.3 cm. No suspicious lytic or blastic abnormality. SOFT TISSUES: Unremarkable. No discrete abdominal or pelvic wall hernia. VASCULATURE: Unremarkable. Abdominal aorta is non-dilated. LYMPH NODES: Unremarkable. No enlarged lymph nodes. CT/Abdomen/Pelvis WITH Contrast IMPRESSION: 1. Total left hip prosthesis with a fluid collection anterior to the prosthesis possibly representing a bursa. 2. No acute abnormalities in the abdomen or pelvis. Electronically Signed: Renzo Leos MD at 20:10 EDT ,
[2023-11-21 11:49] LABS: Pathologist Review Reviewed
== END | disposition home or self-care (01) ==
PROVIDERS: PCP Family Medicine Geriatric Medicine; Visit Provider Family Medicine Geriatric Medicine
DX: E78.5 Hyperlipidemia, unspecified (principal); R10.9 Unspecified abdominal pain
CPT/HCPCS: 36415; 74177; 80053; 85025; Q9967; A4216

== ENCOUNTER → 2023-11-29 | Outpatient (CLI) | payer MEDICARE, SELFPAY ==
--- NOTE | 2023-11-29 17:06 | RAD_ITS ---
STUDY: X-RAY - LUMBAR SPINE REASON FOR EXAM: Female, 73 years old. Spondylosis without myelopathy or radiculopathy, lumbar region TECHNIQUE: 3 view(s) of the lumbar spine were obtained. COMPARISON: None FINDINGS: Normal lumbar lordosis. There is no substantial scoliosis. There is a normal alignment of the vertebrae. Severe loss of height and wedging deformity of the L3 vertebral body consistent with a severe compression fracture which may be acute, subacute, or chronic. Mild loss of height wedging deformity L4 vertebral body consistent with a mild compression fracture which may be acute, subacute, or chronic. There is multi-level degenerative disc disease with multi-level disc space narrowing. There is multilevel facet hypertrophy. The soft tissue structures are unremarkable. RAD/Lumbar Spine 2 or 3 Views IMPRESSION: 1. Compression fractures of L3 and L4 which may be acute, subacute, chronic and clinical correlation and MRI may be useful. 2. Diffuse degenerative disc disease. Electronically Signed: Ruperto Wyatt MD at 9:50 EDT ,
== END | disposition home or self-care (01) ==
LOC: RAD 17:04
PROVIDERS: PCP Family Medicine Geriatric Medicine; Referring Provider Anesthesiology Pain Medicine; Visit Provider Anesthesiology Pain Medicine
DX: M47.816 Spondylosis without myelopathy or radiculopathy, lumbar region (principal)
CPT/HCPCS: 72100

== ENCOUNTER → 2023-12-22 | Outpatient (CLI) | payer MEDICARE, SELFPAY ==
[2023-12-22 16:05] LABS: Absolute Lymphocyte Count 1.69 X10^3/uL (0.83-4.51); Absolute Neutrophil Count 4.7 X10^3/uL (2.0-7.7); Basophil# 0.03 X10^3/uL; Basophil% 0.4 % (0-1); Eosinophil# 0.18 X10^3/uL; Eosinophils% 2.2 % (0-5); Hematocrit 45.5 % (37-47); Lymphocyte # 1.69 X10^3/ul (0.83-4.51); Lymphocyte % 20.8 % (19-41); Mean Corp Hgb Conc 30.8 g/dL (32-36); Mean Corpuscular Hgb 29.6 pg (27.0-32.0); Mean Corpuscular Volume 96.2 fL (81-99); Mean Platelet Vol. 12.2 fl (6.2-12.0); Monocyte# 1.44 X10^3/uL; Monocyte% 17.7 % (0-10); NRBC Flagged by Analyzer 0 % (0-5); Neutrophil % 57.8 % (47-70); Platelet Count 255 K/mm3 (150-450); RBC Distribution Width SD 42.9 fl (35.1-43.9); Red Blood Count 4.73 M/mm3 (4.2-5.4); White Blood Count 8.1 K/mm3 (4.4-11.0)
[2023-12-22 16:11] LABS: ALB/GLOB Ratio 0.7 RATIO (0.9-2.4); AST(SGOT) 21 U/L (15-37); Alanine Aminotransfer ALT/SGPT 22 U/L (13-56); Albumin, Serum 3.3 g/dL (3.2-5.0); Alkaline Phosphatase 172 U/L (45-117); Anion Gap 10 (5-15); BUN 7 mg/dL (7-18); BUN/Creat Ratio 8.6 RATIO (10-20); Calcium,Total 9.4 mg/dL (8.5-10.1); Chloride 108 mmol/L (98-107); Creatinine, Serum 0.82 mg/dL (0.55-1.02); EST Glomerular Filtration Rate 72 mL/min (>60); Est Glom Filt Rate - Afr Amer 88 mL/min (>60); Globulin 4.8 g/dL (2.2-4.2); Glucose 94 mg/dL (74-106); Potassium 3.7 mmol/L (3.5-5.1); Protein, Total 8.1 g/dL (6.4-8.2); Sodium Level 140 mmol/L (136-145)
== END | disposition home or self-care (01) ==
LOC: MTLAB 11:31
PROVIDERS: PCP Family Medicine Geriatric Medicine; Referring Provider Internal Medicine Rheumatology; Visit Provider Internal Medicine Rheumatology
DX: M06.4 Inflammatory polyarthropathy (principal); Z79.899 Other long term (current) drug therapy; M17.0 Bilateral primary osteoarthritis of knee
CPT/HCPCS: 36415; 80053; 85025

== ENCOUNTER → 2024-02-19 | Outpatient (CLI) | payer MEDICARE, SELFPAY | END | disposition home or self-care (01) | LOC: SL 20:13 | PROVIDERS: Visit Provider Nurse Practitioner Acute Care | DX: G47.10 Hypersomnia, unspecified (principal) | CPT/HCPCS: 95810 ==

== ENCOUNTER → 2024-02-28 | Outpatient (CLI) | payer MEDICARE, SELFPAY ==
[2024-02-28 12:59] LABS: Absolute Lymphocyte Count 2.29 X10^3/uL (0.83-4.51); Absolute Neutrophil Count 5.3 X10^3/uL (2.0-7.7); Basophil# 0.05 X10^3/uL; Basophil% 0.5 % (0-1); Eosinophil# 0.19 X10^3/uL; Hematocrit 48.3 % (37-47); Hemoglobin 14.4 g/dL (12.0-15.0); Lymphocyte # 2.29 X10^3/ul (0.83-4.51); Lymphocyte % 24.2 % (19-41); Mean Corp Hgb Conc 29.8 g/dL (32-36); Mean Corpuscular Hgb 29.1 pg (27.0-32.0); Mean Corpuscular Volume 97.8 fL (81-99); Mean Platelet Vol. 11.4 fl (6.2-12.0); Monocyte# 1.59 X10^3/uL; Monocyte% 16.8 % (0-10); NRBC Flagged by Analyzer 0 % (0-5); Neutrophil # 5.28 X10^3/uL (2.7-7.7); Neutrophil % 55.8 % (47-70); POSITIVE DIFFERENTIAL YES; Platelet Count 251 K/mm3 (150-450); RBC Distribution Width SD 46.5 fl (35.1-43.9); Red Blood Count 4.94 M/mm3 (4.2-5.4); White Blood Count 9.5 K/mm3 (4.4-11.0)
[2024-02-28 13:10] LABS: Differential Indicated SCAN CRITERIA MET
[2024-02-28 14:02] LABS: Differential Comment SCANNED
[2024-02-28 14:13] LABS: ALB/GLOB Ratio 0.7 RATIO (0.9-2.4); AST(SGOT) 32 U/L (15-37); Alanine Aminotransfer ALT/SGPT 13 U/L (13-56); Albumin, Serum 3.5 g/dL (3.2-5.0); Alkaline Phosphatase 261 U/L (45-117); Anion Gap 13 (5-15); BUN 7 mg/dL (7-18); Calcium,Total 9.7 mg/dL (8.5-10.1); Chloride 104 mmol/L (98-107); Cholesterol 171 mg/dL (200); Creatinine, Serum 0.78 mg/dL (0.55-1.02); EST Glomerular Filtration Rate 77 mL/min (>60); Est Glom Filt Rate - Afr Amer 93 mL/min (>60); Glucose 98 mg/dL (74-106); High Density Lipoprotein 57 mg/dL; Protein, Total 8.5 g/dL (6.4-8.2); Sodium Level 139 mmol/L (136-145); Triglycerides 161 mg/dL; Very Low Density Lipoprotein 32 mg/dL (5-40)
== END | disposition home or self-care (01) ==
LOC: POLAB3 11:39
PROVIDERS: Visit Provider Family Medicine Geriatric Medicine
DX: E78.5 Hyperlipidemia, unspecified (principal); I10 Essential (primary) hypertension; E55.9 Vitamin D deficiency, unspecified
CPT/HCPCS: 36415; 80053; 80061; 82306; 84443; 85025

== ENCOUNTER 2024-03-06 16:46 | Emergency (ER) | payer MEDICARE, SELFPAY ==
[2024-03-06 16:47] VITALS: BP 134/78; PULSE 99; RESP 16; TEMP 37.3; O2SAT 93
[2024-03-06 16:50] VITALS: BMI 24.9
[2024-03-06 17:47] VITALS: TEMP 36.8
[2024-03-06] MEDS: Ketorolac 30 MG/ML Syringe IM (17:51)
--- NOTE | 2024-03-06 18:01 | EDS_ITS ---
HPI History of Present Illness Chief Complaint: Lower Extremity Injury Narrative Narrative: Chief complaint and HPI: Left hip pain. 73-year-old female with history of left hip and knee replacement presents for evaluation of left hip pain. Patient states she broke her left in August and since then has had chronic left hip pain. She states that the pain has been ongoing for several months. She states she gets pain injections every 3 months for this. She is in physical therapy [facility] for her pain as well. Patient states her last pain injection was 2 months ago. She states it did not work as well as it usually does. She states she has been taking Tylenol at home with little relief. She states that she is having difficulty ambulating secondary to the pain. She ambulates with a walker. She denies any recent fall or trauma. Denies numbness, weakness, urinary retention, stool or urinary incontinence, saddle anesthesia, fever, chills, abdominal pain, nausea, vomiting. She states the pain starts in her left hip and radiates down into her mid thigh. She describes the pain as burning. She states she used to be on gabapentin but this was stopped secondary to causing her mental status changes. Patient has not followed up with her orthopedic physician for this Review of systems: See HPI Medications: As listed on the chart Allergies: As listed on the chart PFSH: Per chart Vital signs: As listed on the chart. Reviewed. Physical exam: Gen: A&O x3, NAD Head: Normocephalic, atraumatic Eyes: No sclera icterus, conjunctiva clear, PERRL, EOMI ENT: Moist mucous membranes Neck: Trachea midline, No JVD, full range of motion CV: RRR, no murmurs, no peripheral edema Resp: Lungs CTA BL, no w/r/c GI: Abd soft, non-distended, non-tender, no r/r/g Musc: Full ROM, no deformity, strength +5/5 in all extremities, no midline spinal tenderness, no bony step-offs, back nontender to palpation, left hip and knee have full range of motion passive and active, no warmth/erythema/signs of infection or trauma, DP/PT pulses plus 2 out of 4 bilaterally, compartments soft Skin: Warm, dry, intact Neuro: Alert, oriented, grossly intact, sensation intact Psych: Cooperative, appropriate mood and affect PFSH PFSH Medical History (Reviewed 02/06/24 @ 15:16 by Winnie Norman APPLICATION PACKAGING SPECIALIST, APPLICATION PACKAGING SPECIALIST-C) History of DIC syndrome Lives in correction PICC (peripherally inserted central catheter) in place History of revision of total replacement of left hip joint Uses wheelchair Wears dentures Wears glasses Pressure ulcer History of renal disease High cholesterol Ulcerative colitis Sleep apnea Non-smoker Acute diarrhea Chronic anemia Anxiety and depression GERD (gastroesophageal reflux disease) Hypothyroidism Rheumatoid arthritis Parkinson disease CHI (closed head injury) Obesity (BMI 30.0-34.9) Osteoarthritis IBS (irritable bowel syndrome) Cataracts, bilateral Arthritis Hemorrhoids Schizophrenia Home Medications ?Medication ?Instructions ?Recorded ?Last Taken ?Type pravastatin 40 mg tablet 40 mg PO QHS CHOLESTEROL 03/22/17 05/11/23 History carbidopa 25 mg-levodopa 100 mg 1 tab PO TID parkinsons 09/13/22 05/12/23 History tablet citalopram 40 mg tablet 20 mg PO DAILY DEPRESSION 09/13/22 05/12/23 History levothyroxine 75 mcg tablet 75 mcg PO DAILY THYROID 09/13/22 04/12/23 History olanzapine 7.5 mg tablet 7.5 mg PO QHS MOOD 09/13/22 05/11/23 History potassium chloride 20 mEq 20 meq PO BID SUPPLEMENT 09/13/22 05/12/23 History tablet,extended release(part/cryst) ferrous sulfate 325 mg (65 mg 325 mg PO DAILY supplimentation 11/24/22 05/12/23 History iron) tablet albuterol sulfate 90 mcg/actuation 2 inh inhalation Q6H PRN shortness 03/22/23 04/11/23 History aerosol inhaler of breath or wheezing cholecalciferol (vitamin D3) 25 25 mcg PO DAILY SUPPLEMENT 03/22/23 05/12/23 History mcg (1,000 unit) capsule (Vitamin D3) acetaminophen 500 mg tablet 1,000 mg (2 x 500 mg) PO Q8 pain 04/15/23 05/12/23 Rx #0 tabs ursodiol 250 mg tablet 250 mg PO BID URINATION #60 tabs 05/05/23 Unknown Rx pantoprazole 40 mg tablet,delayed 40 mg PO DAILY 30 days #30 tabs 09/26/23 Unknown Rx release Calcium tablet PO 02/06/24 Unknown History ascorbate calcium (vitamin C) 500 500 mg PO QDAY 02/06/24 Unknown History mg tablet Allergy/AdvReac Type Severity Reaction Status Date / Time linaclotide (From Linzess) Allergy Mild chest Verified 03/06/24 16:47 tightness histamine phosphate (From Allergy Unknown Verified 03/06/24 16:47 Histatrol) Family History (Reviewed 02/06/24 @ 15:16 by Winnie Norman APPLICATION PACKAGING SPECIALIST, APPLICATION PACKAGING SPECIALIST-C) Mother Heart disease Father Heart disease Brother Heart disease Surgical History History of hemiarthroplasty of left hip Hx of total hip arthroplasty Hx of surgical procedure History of hip surgery H/O colonoscopy with polypectomy History of tonsillectomy and adenoidectomy History of tubal ligation History of knee replacement Social History (Reviewed 02/06/24 @ 15:16 by Winnie Norman APPLICATION PACKAGING SPECIALIST, APPLICATION PACKAGING SPECIALIST-C) household members: spouse Smoking Status: Former smoker alcohol intake: never substance use type: does not use what type of physical activity do you participate in: walking frequency: 1-2 times per week EXAM Physical Exam Const Vital Signs: 03/06/24 16:47 03/06/24 17:47 Temperature 99.2 F H 98.2 F Temperature Source Oral Oral Pulse Rate 99 Respiratory Rate 16 Blood Pressure 134/78 H Blood Pressure Mean 96 Pulse Ox 93 Oxygen Delivery Method Room Air MDM MDM MDM Narrative Medical decision making narrative: 73-year-old female presents for evaluation of chronic left hip pain. Pain has been ongoing for months since replacement in August. She receives pain injections as well as is in physical therapy. Patient denies any trauma or injury. Differential diagnosis includes but is not limited to sciatica, osteoarthritis, hip strain. Given that patient denies any recurrent trauma or injury I do not think any x-rays are needed at this time. I do not believe any laboratory work is needed. Original temperature was 99.2 ?F. Patient denies any fever, chills, viral type symptoms, urinary symptoms, or any infectious symptoms. Temperature was retaken at 98.2. I feel that 99.2 was an error. IM Toradol ordered. Will ambulate the patient with walker. On reevaluation, patient states her pain is improved but still present. Will place lidocaine patch. Patient was able to ambulate in our emergency department with a walker. Patient is stable to discharge home. She was educated on using heating pad, IcyHot as needed. She was educated that the lidocaine patch needs to come off in 24 hours. No showering with it on. She was told to follow-up with her physical therapy as well as her pain doctor. She was educated to follow-up with her orthopedic physician as well as PCP. Return precautions were explained. Daughter and patient confirmed understanding of plan. Impression: 1. Chronic left hip 2. History of left hip replaced Discharge Plan Triage Chief Complaint: Lower Extremity Injury ED Provider: Akhil Bates Dx/Rx/DC Orders Clinical Impression: Left hip pain Instructions: VARSHA Understanding the Pain Response, ED Hip Strain Prescriptions: No Action ursodiol 250 mg tablet 250 mg PO BID Qty: 60 2RF pantoprazole 40 mg tablet,delayed release (DR/EC) 40 mg PO DAILY 30 Days Qty: 30 0RF ascorbate calcium (vitamin C) 500 mg tablet 500 mg PO QDAY Calcium tablet PO pravastatin 40 MG tablet 40 mg PO QHS citalopram 40 mg tablet 20 mg PO DAILY Patient Comments: confirmed with daughter pt is taking 20 mg. olanzapine 7.5 mg tablet 7.5 mg PO QHS potassium chloride 20 mEq tablet,ER particles/crystals 20 meq PO BID levothyroxine 75 mcg tablet 75 mcg PO DAILY carbidopa-levodopa 25-100 mg tablet 1 tab PO TID ferrous sulfate 325 mg (65 mg iron) tablet 325 mg PO DAILY Patient Comments: Take 1 tablet by mouth every morning cholecalciferol (vitamin D3) [Vitamin D3] 25 mcg (1,000 unit) capsule 25 mcg PO DAILY albuterol sulfate 90 mcg/actuation HFA aerosol inhaler 2 inh INHALATION Q6H PRN (Reason: shortness of breath or wheezing) Patient Comments: INHALE 2 PUFFS BY MOUTH SIX TIMES DAILY NEEDED FOR SHORTNESS OF BREATH acetaminophen 500 mg Tablet 1,000 mg PO Q8 Qty: 0 0RF Primary Care Provider: Raji Herrmann Chi Referrals: Raji Herrmann Chi, MD [Primary Care Provider] - 3-5 Days Activity Restrictions/Additional Instructions: Follow-up with your primary care physician and your orthopedic physician. Tylenol and Motrin as needed for pain. Okay to take Motrin in the morning. Remove the lidocaine patch in 24 hours. Do not shower while wearing the patch. Print Language: Cook Islander Disposition Disposition: Home, Self Care
[2024-03-06] MEDS: Lidocaine 5% Patch 1 PATCH TOPICAL (19:00)
== END 2024-03-06 19:08 | disposition home or self-care (01) ==
PROVIDERS: Emergency Provider Surgery; PCP Family Medicine Geriatric Medicine; Visit Provider Surgery
DX: M25.552 Pain in left hip (principal); G20.A1 Parkinson's disease without dyskinesia, without mention of fluctuations; F20.9 Schizophrenia, unspecified; Z87.891 Personal history of nicotine dependence; G89.29 Other chronic pain; E78.00 Pure hypercholesterolemia, unspecified; Z96.642 Presence of left artificial hip joint; Z96.652 Presence of left artificial knee joint; Z79.899 Other long term (current) drug therapy; F41.8 Other specified anxiety disorders; E03.9 Hypothyroidism, unspecified; Z79.890 Hormone replacement therapy; K21.9 Gastro-esophageal reflux disease without esophagitis; Z98.51 Tubal ligation status
CPT/HCPCS: 96372; 99284

== ENCOUNTER → 2024-03-08 | Outpatient (CLI) | payer MEDICARE, SELFPAY ==
[2024-03-08 12:56] LABS: Absolute Lymphocyte Count 1.99 X10^3/uL (0.83-4.51); Absolute Neutrophil Count 7.7 X10^3/uL (2.0-7.7); Basophil# 0.05 X10^3/uL; Basophil% 0.4 % (0-1); Eosinophil# 0.13 X10^3/uL; Eosinophils% 1.1 % (0-5); Hematocrit 45.2 % (37-47); Hemoglobin 14.3 g/dL (12.0-15.0); Lymphocyte # 1.99 X10^3/ul (0.83-4.51); Lymphocyte % 16.9 % (19-41); Mean Corp Hgb Conc 31.6 g/dL (32-36); Mean Corpuscular Hgb 30.1 pg (27.0-32.0); Mean Corpuscular Volume 95.2 fL (81-99); Mean Platelet Vol. 11.5 fl (6.2-12.0); Monocyte# 1.81 X10^3/uL; Monocyte% 15.4 % (0-10); NRBC Flagged by Analyzer 0 % (0-5); Neutrophil # 7.74 X10^3/uL (2.7-7.7); Neutrophil % 65.7 % (47-70); POSITIVE DIFFERENTIAL YES; Platelet Count 271 K/mm3 (150-450); RBC Distribution Width CV 13.1 % (11.6-14.6); RBC Distribution Width SD 46.3 fl (35.1-43.9); Red Blood Count 4.75 M/mm3 (4.2-5.4); White Blood Count 11.8 K/mm3 (4.4-11.0)
[2024-03-08 12:58] LABS: Differential Indicated SCAN CRITERIA MET
[2024-03-08 13:19] LABS: Erythrocyte Sedimentation Rate 49 mm/hr (0-30)
[2024-03-08 13:54] LABS: ALB/GLOB Ratio 0.7 RATIO (0.9-2.4); AST(SGOT) 29 U/L (15-37); Alanine Aminotransfer ALT/SGPT 21 U/L (13-56); Albumin, Serum 3.4 g/dL (3.2-5.0); Alkaline Phosphatase 219 U/L (45-117); Anion Gap 6 (5-15); BUN 16 mg/dL (7-18); BUN/Creat Ratio 20.5 RATIO (10-20); CRP < 2.90 mg/L (0.0-3.0); Calcium,Total 9.6 mg/dL (8.5-10.1); Chloride 106 mmol/L (98-107); Creatinine, Serum 0.78 mg/dL (0.55-1.02); EST Glomerular Filtration Rate 77 mL/min (>60); Est Glom Filt Rate - Afr Amer 93 mL/min (>60); Globulin 4.8 g/dL (2.2-4.2); Glucose 111 mg/dL (74-106); Potassium 4.5 mmol/L (3.5-5.1); Protein, Total 8.2 g/dL (6.4-8.2); Sodium Level 138 mmol/L (136-145); Thyroid Stim Hormone (TSH) 0.596 uIU/mL (0.358-3.740)
[2024-03-11 11:00] LABS: Pathologist Review Reviewed
== END | disposition home or self-care (01) ==
LOC: POLAB3 12:20
PROVIDERS: PCP Family Medicine Geriatric Medicine; Visit Provider Family Medicine Geriatric Medicine
DX: I10 Essential (primary) hypertension (principal); E03.9 Hypothyroidism, unspecified; M35.3 Polymyalgia rheumatica
CPT/HCPCS: 36415; 80053; 84443; 85025; 85652; 86140

== ENCOUNTER → 2024-03-12 | Outpatient (CLI) | payer MEDICARE, SELFPAY ==
[2024-03-12 15:22] LABS: Absolute Lymphocyte Count 1.43 X10^3/uL (0.83-4.51); Basophil# 0.03 X10^3/uL; Basophil% 0.2 % (0-1); Eosinophil# 0.02 X10^3/uL; Eosinophils% 0.1 % (0-5); Hematocrit 47.6 % (37-47); Hemoglobin 14.6 g/dL (12.0-15.0); Lymphocyte # 1.43 X10^3/ul (0.83-4.51); Lymphocyte % 9.3 % (19-41); Mean Corp Hgb Conc 30.7 g/dL (32-36); Mean Corpuscular Hgb 29.6 pg (27.0-32.0); Mean Corpuscular Volume 96.4 fL (81-99); Mean Platelet Vol. 11.5 fl (6.2-12.0); Monocyte# 1.69 X10^3/uL; NRBC Flagged by Analyzer 0 % (0-5); Neutrophil # 12.01 X10^3/uL (2.7-7.7); Neutrophil % 78.3 % (47-70); POSITIVE DIFFERENTIAL YES; Platelet Count 296 K/mm3 (150-450); RBC Distribution Width SD 46.2 fl (35.1-43.9); Red Blood Count 4.94 M/mm3 (4.2-5.4); White Blood Count 15.4 K/mm3 (4.4-11.0)
[2024-03-12 15:24] LABS: Differential Indicated SCAN CRITERIA MET
[2024-03-12 15:49] LABS: Differential Comment SCANNED
[2024-03-12 15:54] LABS: ALB/GLOB Ratio 0.8 RATIO (0.9-2.4); AST(SGOT) 37 U/L (15-37); Alanine Aminotransfer ALT/SGPT 39 U/L (13-56); Albumin, Serum 3.7 g/dL (3.2-5.0); Alkaline Phosphatase 205 U/L (45-117); Anion Gap 6 (5-15); BUN 28 mg/dL (7-18); BUN/Creat Ratio 35.6 RATIO (10-20); Calcium,Total 9.7 mg/dL (8.5-10.1); Chloride 105 mmol/L (98-107); Creatinine, Serum 0.79 mg/dL (0.55-1.02); EST Glomerular Filtration Rate 76 mL/min (>60); Est Glom Filt Rate - Afr Amer 92 mL/min (>60); Globulin 4.6 g/dL (2.2-4.2); Glucose 113 mg/dL (74-106); Potassium 4.5 mmol/L (3.5-5.1); Protein, Total 8.3 g/dL (6.4-8.2); Sodium Level 139 mmol/L (136-145)
[2024-03-13 14:06] LABS: Pathologist Review Reviewed
== END | disposition home or self-care (01) ==
LOC: LAB 14:11
PROVIDERS: PCP Family Medicine Geriatric Medicine; Referring Provider Internal Medicine Rheumatology; Visit Provider Internal Medicine Rheumatology
DX: M06.4 Inflammatory polyarthropathy (principal); Z79.899 Other long term (current) drug therapy; M17.0 Bilateral primary osteoarthritis of knee
CPT/HCPCS: 36415; 80053; 85025

== ENCOUNTER → 2024-04-01 | Outpatient (CLI) | payer MEDICARE, SELFPAY | END | disposition home or self-care (01) | LOC: SL 12:23 | PROVIDERS: PCP Family Medicine Geriatric Medicine; Visit Provider Nurse Practitioner Acute Care | DX: Z00.00 Encounter for general adult medical examination without abnormal findings (principal) ==

== ENCOUNTER → 2024-04-15 | Outpatient (CLI) | payer MEDICARE, SELFPAY ==
[2024-04-15 14:53] LABS: Absolute Lymphocyte Count 2.57 X10^3/uL (0.83-4.51); Absolute Neutrophil Count 9.9 X10^3/uL (2.0-7.7); Basophil# 0.06 X10^3/uL; Basophil% 0.4 % (0-1); Eosinophil# 0.21 X10^3/uL; Eosinophils% 1.4 % (0-5); Hematocrit 43.8 % (37-47); Hemoglobin 13.9 g/dL (12.0-15.0); Lymphocyte # 2.57 X10^3/ul (0.83-4.51); Lymphocyte % 16.5 % (19-41); Mean Corp Hgb Conc 31.7 g/dL (32-36); Mean Corpuscular Hgb 30.5 pg (27.0-32.0); Mean Corpuscular Volume 96.1 fL (81-99); Mean Platelet Vol. 11.7 fl (6.2-12.0); Monocyte# 2.74 X10^3/uL; Monocyte% 17.6 % (0-10); NRBC Flagged by Analyzer 0 % (0-5); Neutrophil # 9.87 X10^3/uL (2.7-7.7); Neutrophil % 63.5 % (47-70); POSITIVE DIFFERENTIAL YES; Platelet Count 246 K/mm3 (150-450); RBC Distribution Width CV 13.2 % (11.6-14.6); RBC Distribution Width SD 46.3 fl (35.1-43.9); Red Blood Count 4.56 M/mm3 (4.2-5.4); White Blood Count 15.5 K/mm3 (4.4-11.0)
[2024-04-15 15:15] LABS: Differential Indicated SCAN CRITERIA MET
[2024-04-15 15:27] LABS: Differential Comment SCANNED; Platelet Estimate ADEQUATE (ADEQ); Red Cell Morphology NORM C+C NORMAL (NORM C&C)
[2024-04-15 15:41] LABS: ALB/GLOB Ratio 0.9 RATIO (0.9-2.4); AST(SGOT) 15 U/L (15-37); Alanine Aminotransfer ALT/SGPT 9 U/L (13-56); Albumin, Serum 3.3 g/dL (3.2-5.0); Alkaline Phosphatase 162 U/L (45-117); Anion Gap 7 (5-15); BUN 14 mg/dL (7-18); BUN/Creat Ratio 20.5 RATIO (10-20); Chloride 109 mmol/L (98-107); Creatinine, Serum 0.68 mg/dL (0.55-1.02); EST Glomerular Filtration Rate 89 mL/min (>60); Est Glom Filt Rate - Afr Amer 108 mL/min (>60); Globulin 3.8 g/dL (2.2-4.2); Glucose 103 mg/dL (74-106); Potassium 3.9 mmol/L (3.5-5.1); Protein, Total 7.1 g/dL (6.4-8.2); Sodium Level 140 mmol/L (136-145)
[2024-04-16 16:05] LABS: Pathologist Review Reviewed
== END | disposition home or self-care (01) ==
LOC: LAB 13:54
PROVIDERS: PCP Family Medicine Geriatric Medicine; Referring Provider Internal Medicine Rheumatology; Visit Provider Internal Medicine Rheumatology
DX: M06.4 Inflammatory polyarthropathy (principal); Z79.899 Other long term (current) drug therapy
CPT/HCPCS: 36415; 80053; 85025

== ENCOUNTER → 2024-05-10 | Outpatient (CLI) | payer MEDICARE, SELFPAY | END | disposition home or self-care (01) | LOC: SL 11:10 | PROVIDERS: PCP Family Medicine Geriatric Medicine; Referring Provider Nurse Practitioner Family; Visit Provider Nurse Practitioner Family | DX: G47.33 Obstructive sleep apnea (adult) (pediatric) (principal) ==

== ENCOUNTER → 2024-06-12 | Outpatient (CLI) | payer MEDICARE, SELFPAY ==
[2024-06-12 13:14] LABS: Absolute Lymphocyte Count 1.52 X10^3/uL (0.83-4.51); Absolute Neutrophil Count 9.6 X10^3/uL (2.0-7.7); Basophil# 0.06 X10^3/uL; Basophil% 0.4 % (0-1); Eosinophil# 0.25 X10^3/uL; Eosinophils% 1.9 % (0-5); Hematocrit 42.3 % (37-47); Hemoglobin 13.6 g/dL (12.0-15.0); Lymphocyte # 1.52 X10^3/ul (0.83-4.51); Lymphocyte % 11.3 % (19-41); Mean Corp Hgb Conc 32.2 g/dL (32-36); Mean Corpuscular Hgb 31.5 pg (27.0-32.0); Mean Corpuscular Volume 97.9 fL (81-99); Mean Platelet Vol. 11.3 fl (6.2-12.0); Monocyte# 1.94 X10^3/uL; Monocyte% 14.4 % (0-10); NRBC Flagged by Analyzer 0 % (0-5); Neutrophil # 9.58 X10^3/uL (2.7-7.7); Neutrophil % 71.3 % (47-70); POSITIVE DIFFERENTIAL YES; Platelet Count 247 K/mm3 (150-450); RBC Distribution Width CV 12.8 % (11.6-14.6); RBC Distribution Width SD 46.1 fl (35.1-43.9); Red Blood Count 4.32 M/mm3 (4.2-5.4); White Blood Count 13.5 K/mm3 (4.4-11.0)
[2024-06-12 13:15] LABS: Differential Indicated SCAN CRITERIA MET
[2024-06-12 13:41] LABS: Platelet Estimate A (ADEQ)
[2024-06-12 14:00] LABS: ALB/GLOB Ratio 0.8 RATIO (0.9-2.4); AST(SGOT) 14 U/L (15-37); Alanine Aminotransfer ALT/SGPT 12 U/L (13-56); Albumin, Serum 3.4 g/dL (3.2-5.0); Alkaline Phosphatase 173 U/L (45-117); Anion Gap 9 (5-15); BUN 22 mg/dL (7-18); BUN/Creat Ratio 30.4 RATIO (10-20); Calcium,Total 9.6 mg/dL (8.5-10.1); Chloride 106 mmol/L (98-107); Creatinine, Serum 0.72 mg/dL (0.55-1.02); EST Glomerular Filtration Rate 83 mL/min (>60); Est Glom Filt Rate - Afr Amer 101 mL/min (>60); Globulin 4.1 g/dL (2.2-4.2); Glucose 106 mg/dL (74-106); Potassium 3.9 mmol/L (3.5-5.1); Protein, Total 7.5 g/dL (6.4-8.2); Sodium Level 140 mmol/L (136-145)
[2024-06-13 14:26] LABS: Pathologist Review Reviewed
== END | disposition home or self-care (01) ==
LOC: LAB 12:49
PROVIDERS: PCP Family Medicine Geriatric Medicine; Referring Provider Internal Medicine Rheumatology; Visit Provider Internal Medicine Rheumatology
DX: M06.4 Inflammatory polyarthropathy (principal); Z79.899 Other long term (current) drug therapy; M17.0 Bilateral primary osteoarthritis of knee
CPT/HCPCS: 36415; 80053; 85025

== ENCOUNTER → 2024-07-10 | Outpatient (CLI) | payer MEDICARE, SELFPAY ==
--- NOTE | 2024-07-10 08:39 | US_ITS ---
PROCEDURE: ABD LIMITED W/ ELASTOGRAPHY REASON FOR EXAM: NAFLD COMPARISON: Comparison is made with prior study dated November 11, 2023. TECHNIQUE: Right upper quadrant abdominal ultrasound. [facility] ElastQ Imaging shear wave elastography for non-invasive assessment of liver tissue stiffness. Nelson EPIQ Elite. FINDINGS: LIVER: Size: Unremarkable Length: 13.3 cm Echotexture: Diffusely echogenic suggesting fatty infiltration Contour: Normal Lesions: None identified Elastography: EQI Med: 14.6 kPa EQI Med Toney: 2.19 m/s IQR/Med: 17 %* GALLBLADDER: 6 mm x 6 mm x 5 mm gallbladder polyp. No gallstones are seen. Gallbladder wall measures 2.4 mm. COMMON BILE DUCT: Normal it measures 5.4 mm.. PANCREAS: Normal Visualized portions of the right kidney demonstrates a 7.3 cm x 7 cm 7.5 cm cyst in the upper pole.. No right upper quadrant ascites. The spleen measures 9.4 cm x 4.8 cm x 3.8 cm. US/ABD Limited w/ Elastography IMPRESSION: MODERATE TO SEVERE HEPATIC FIBROSIS Right renal cyst. Small gallbladder polyp. Reference Values: SRU <1.37 m/s (5.7kPa): No to mild fibrosis 1.37 m/s - 2.2 m/s: Moderate to severe fibrosis >2.2 m/s (15kPa): Significant fibrosis / cirrhosis METAVIR Score F2 or higher: 1.34 m/s (5.7kPa) F3 or higher: 1.55 m/s (7.3kPa) F4: 1.80 m/s (10kPa) * If the IQR/Med is >30%, the variance in the measurements is a large and the a ccuracy of the measurement may be in question. Reading Location: [id number]
== END | disposition home or self-care (01) ==
LOC: US 08:34
PROVIDERS: PCP Family Medicine Geriatric Medicine; Referring Provider Internal Medicine; Visit Provider Internal Medicine
DX: K76.0 Fatty (change of) liver, not elsewhere classified (principal); K74.3 Primary biliary cirrhosis; K75.4 Autoimmune hepatitis
CPT/HCPCS: 76705; 76981

== ENCOUNTER → 2024-08-12 | Outpatient (CLI) | payer MEDICARE, SELFPAY ==
[2024-08-12 14:11] LABS: Absolute Lymphocyte Count 1.56 X10^3/uL (0.83-4.51); Absolute Neutrophil Count 7.3 X10^3/uL (2.0-7.7); Basophil# 0.03 X10^3/uL; Basophil% 0.3 % (0-1); Eosinophils% 0.9 % (0-5); Hematocrit 40.4 % (37-47); Hemoglobin 12.9 g/dL (12.0-15.0); Lymphocyte # 1.56 X10^3/ul (0.83-4.51); Lymphocyte % 14.4 % (19-41); Mean Corp Hgb Conc 31.9 g/dL (32-36); Mean Corpuscular Hgb 31.5 pg (27.0-32.0); Mean Corpuscular Volume 98.5 fL (81-99); Monocyte% 15.7 % (0-10); NRBC Flagged by Analyzer 0 % (0-5); Neutrophil # 7.34 X10^3/uL (2.7-7.7); Neutrophil % 67.7 % (47-70); POSITIVE DIFFERENTIAL YES; Platelet Count 279 K/mm3 (150-450); RBC Distribution Width CV 13.3 % (11.6-14.6); RBC Distribution Width SD 47.3 fl (35.1-43.9); White Blood Count 10.8 K/mm3 (4.4-11.0)
[2024-08-12 14:21] LABS: Differential Indicated SCAN CRITERIA MET
[2024-08-12 23:40] LABS: ALB/GLOB Ratio 1.3 RATIO (0.9-2.4); AST(SGOT) 22 U/L (<=31); Alanine Aminotransfer ALT/SGPT 13 U/L (<=34); Albumin, Serum 4.1 g/dL (3.4-4.8); Alkaline Phosphatase 175 U/L (35-104); Anion Gap 13 (5-15); BUN 12 mg/dL (4-19); BUN/Creat Ratio 18.8 RATIO (10-20); Calcium,Total 9.4 mg/dL (7.6-11.0); Carbon Dioxide 20.5 mmol/L (21.0-32.0); Chloride 107 mmol/L (98-108); Creatinine, Serum 0.66 mg/dL (0.70-1.20); EST Glomerular Filtration Rate 91 (>60); Globulin 3.2 g/dL (2.2-4.2); Glucose 127 mg/dL (70-99); Protein, Total 7.3 g/dL (5.9-8.4); Sodium Level 140 mmol/L (133-145); Total Bilirubin 0.19 mg/dL (0.00-1.30)
== END | disposition home or self-care (01) ==
LOC: LAB 13:44
PROVIDERS: PCP Family Medicine Geriatric Medicine; Referring Provider Internal Medicine Rheumatology; Visit Provider Internal Medicine Rheumatology
DX: M06.4 Inflammatory polyarthropathy (principal); M17.0 Bilateral primary osteoarthritis of knee; Z79.899 Other long term (current) drug therapy
CPT/HCPCS: 36415; 80053; 85025

== ENCOUNTER → 2024-08-20 | Outpatient (CLI) | payer MEDICARE, SELFPAY ==
[2024-08-20 22:50] LABS: Amphetamine Urine NEGATIVE (<1000 ng/mL); Barbiturate Urine NEGATIVE (< 200 ng/mL); Benzodiazepine Urine NEGATIVE (< 200 ng/mL); Buprenorphine Urine NEGATIVE (< 200 ng/mL); Cocaine Urine NEGATIVE (< 300 ng/mL); Fentanyl, Urine NEGATIVE; Methadone Urine NEGATIVE (< 300 ng/mL); Opiates Urine NEGATIVE (< 300 ng/mL); Oxycodone, Urine NEGATIVE (< 100 ng/mL); PCP Urine NEGATIVE (< 25 ng/mL); THC Urine NEGATIVE (< 50 ng/mL)
== END | disposition home or self-care (01) ==
LOC: LAB 12:07
PROVIDERS: PCP Family Medicine Geriatric Medicine; Referring Provider Anesthesiology Pain Medicine; Visit Provider Anesthesiology Pain Medicine
DX: F11.20 Opioid dependence, uncomplicated (principal)
CPT/HCPCS: 80307

== ENCOUNTER → 2024-08-27 | Outpatient (CLI) | payer MEDICARE, SELFPAY ==
[2024-08-27 13:37] LABS: Absolute Lymphocyte Count 1.33 X10^3/uL (0.83-4.51); Absolute Neutrophil Count 5.6 X10^3/uL (2.0-7.7); Basophil# 0.02 X10^3/uL; Basophil% 0.2 % (0-1); Eosinophil# 0.15 X10^3/uL; Eosinophils% 1.7 % (0-5); Hematocrit 41.3 % (37-47); Hemoglobin 13.3 g/dL (12.0-15.0); Lymphocyte # 1.33 X10^3/ul (0.83-4.51); Mean Corp Hgb Conc 32.2 g/dL (32-36); Mean Corpuscular Hgb 31.9 pg (27.0-32.0); Monocyte# 1.73 X10^3/uL; Monocyte% 19.5 % (0-10); NRBC Flagged by Analyzer 0 % (0-5); Neutrophil # 5.55 X10^3/uL (2.7-7.7); Neutrophil % 62.8 % (47-70); POSITIVE DIFFERENTIAL YES; Platelet Count 255 K/mm3 (150-450); RBC Distribution Width SD 46.4 fl (35.1-43.9); Red Blood Count 4.17 M/mm3 (4.2-5.4); White Blood Count 8.9 K/mm3 (4.4-11.0)
[2024-08-27 13:39] LABS: Differential Indicated SCAN CRITERIA MET
[2024-08-27 14:07] LABS: Differential Comment SCANNED
[2024-08-27 14:21] LABS: ALB/GLOB Ratio 1.2 RATIO (0.9-2.4); AST(SGOT) 21 U/L (<=31); Alanine Aminotransfer ALT/SGPT 8 U/L (<=34); Albumin, Serum 3.9 g/dL (3.4-4.8); Alkaline Phosphatase 214 U/L (35-104); Anion Gap 13 (5-15); BUN 16 mg/dL (4-19); BUN/Creat Ratio 29.3 RATIO (10-20); Calcium,Total 9.6 mg/dL (7.6-11.0); Carbon Dioxide 23.9 mmol/L (21.0-32.0); Chloride 104 mmol/L (98-108); Cholesterol 164 mg/dL (<=200); Creatinine, Serum 0.54 mg/dL (0.70-1.20); EST Glomerular Filtration Rate 95 (>60); Globulin 3.4 g/dL (2.2-4.2); Glucose 90 mg/dL (70-99); High Density Lipoprotein 57 mg/dL; Low Density Lipoprotein Calc. 81 mg/dL; Potassium 4.3 mmol/L (3.3-5.1); Protein, Total 7.3 g/dL (5.9-8.4); Sodium Level 141 mmol/L (133-145); Total Bilirubin 0.17 mg/dL (0.00-1.30); Triglycerides 131 mg/dL; Very Low Density Lipoprotein 26 mg/dL (5-40); Vitamin D,25 Hydroxy 34.3 ng/mL (30-100); cholesterol:hdl ratio screen 2.86
== END | disposition home or self-care (01) ==
LOC: LAB 12:22
PROVIDERS: PCP Family Medicine Geriatric Medicine; Referring Provider Family Medicine Geriatric Medicine; Visit Provider Family Medicine Geriatric Medicine
DX: E78.5 Hyperlipidemia, unspecified (principal); I10 Essential (primary) hypertension; E55.9 Vitamin D deficiency, unspecified
CPT/HCPCS: 36415; 80053; 80061; 82306; 84443; 85025

== ENCOUNTER → 2024-09-09 | Outpatient (CLI) | payer MEDICARE, SELFPAY ==
--- NOTE | 2024-09-09 11:00 | MRI_ITS ---
PROCEDURE: SPINE LUMBAR (ROUTINE), 09/09/2024 REASON FOR EXAM: RADICULOPATHY TECHNIQUE: Multisequence multiplanar MR of the lumbar spine was performed without IV contrast. COMPARISON: CT abdomen and pelvis 11/20/2023 FINDINGS: Similar severe chronic L3 burst fracture with near vertebra plana configuration and retropulsion contributing to focal spinal canal stenosis at L2-L3 as detailed below. Degenerative type marrow signal changes greatest at L3-L4. Mild lumbar dextroscoliosis, better depicted on previous CT in the absence of coronal plane imaging. Conus medullaris terminates normally at the L1-L2 disc level. Slightly redundant in appearance of the nerve roots of the proximal cauda equina above the L2-L3 level probably related to the stenosis at that level. Additional level by level findings as below: L1-2: Broad-based disc bulging. No high-grade spinal canal or foraminal stenosis. L2-3: Severe loss of disc height with diffuse disc bulging slightly asymmetric to the LEFT. Bony retropulsion at L3 as described above. Superimposed small posterior central disc protrusion with slight inferior migration. Ligamentum flavum hypertrophy. Facet arthropathy. Collectively these resultant severe spinal canal stenosis with dimensions roughly 10 x 7 mm transverse by AP and narrowing/effacement of the bilateral lateral recesses. Moderate to severe LEFT foraminal stenosis. No significant foraminal stenosis on the RIGHT. L3-4: Diffuse disc bulging. Ligamentum flavum hypertrophy and facet arthropathy. Mild/moderate focal spinal canal stenosis with incomplete effacement of CSF. Mild narrowing of the bilateral lateral recesses without effacement. Mild LEFT and mild/moderate RIGHT foraminal stenosis. L4-5: Prominent diffuse disc bulging with superimposed tiny posterior central disc protrusion. Ligamentum flavum hypertrophy. Facet arthropathy. Moderate focal spinal canal stenosis with incomplete effacement of CSF. Narrowing of the bilateral lateral recesses. Mild/moderate bilateral foraminal stenoses. L5-S1: Diffuse disc bulging. Facet arthropathy. [id number] bilateral foraminal stenoses. Other: Diverticulosis on the stoker installer. Partially imaged roughly 7.2 cm presumed RIGHT renal cyst with a thin internal septation suggested, not well evaluated but also present on previous CT, better evaluated at that time. Additional tiny presumed LEFT renal cyst. Additional tiny 0.5 cm T2 dark RIGHT renal lesion is not well evaluated, not definitely visible previously. MRI/Spine Lumbar (Routine) IMPRESSION: 1. Multilevel spondylosis as above, most notably including severe spinal canal stenosis including effacement of the bilateral lateral recesses at L2-L3 related in part to a severe chronic L3 burst fracture with bony retropulsion. Foraminal stenoses up to moderate/severe on the LEFT at that level and bilaterally at L5-S1. 2. 0.5 cm RIGHT renal lesion which does not appear compatible with a simple cys t, too small to definitively characterize by CT. Ultrasound or multiphase MRI with and without contrast could be considered alth ough it may remain difficult to characterize due to tiny size. Additional 7.2 cm RIGHT renal cyst was also present previously. 3. Additional description as above. Reading Location: [id number]
== END | disposition home or self-care (01) ==
PROVIDERS: PCP Family Medicine Geriatric Medicine; Referring Provider Anesthesiology Pain Medicine; Visit Provider Anesthesiology Pain Medicine
DX: M54.16 Radiculopathy, lumbar region (principal)
CPT/HCPCS: 72148

== ENCOUNTER → 2024-10-29 | Outpatient (CLI) | payer MEDICARE, SELFPAY ==
--- NOTE | 2024-10-29 09:25 | BD_ITS ---
PROCEDURE: DEXA BONE DENSITY STUDY 10/29/2024 REASON FOR EXAM: F, age 74 y/o . Postmenopausal. TECHNIQUE: DXA scan of sites with data reported below. [facility]KS: [facility] COMPARISON: Prior study dated December 02, 2014. FINDINGS: BMD and T-SCORES Lumbar spine: 0.929 g/cm2, T-score -0.5 Levels: L1 through L4 Change from prior: Loss of 8.6%. Right femoral neck: 0.543 g/cm2, T-score -2.8 Femoral neck comparison data not recommended for monitoring change. Right total hip: 0.635 g/cm2, T-score -2.5 Change from prior: Loss of 25.5%. The World Health Organization has defined the following categories based on bone density: Normal bone density: T-score equal to or greater than -1.0 Osteopenia: T-score between -1.0 and -2.5 Osteoporosis: T-score equal to or less than -2.5 The patient does meet the pharmacological treatment recommendations for prevention of osteoporosis. BD/Dexa Bone Density Study IMPRESSION: OSTEOPOROSIS. Recommend follow-up as clinically warranted. Reading Location: [place] [id number]
== END | disposition home or self-care (01) ==
LOC: OPBD 09:19
PROVIDERS: PCP Family Medicine Geriatric Medicine; Referring Provider Family Medicine Geriatric Medicine; Visit Provider Family Medicine Geriatric Medicine
DX: Z78.0 Asymptomatic menopausal state (principal)
CPT/HCPCS: 77080

== ENCOUNTER → 2024-11-11 | Outpatient (CLI) | payer MEDICARE, SELFPAY ==
[2024-11-11 12:04] LABS: Absolute Lymphocyte Count 2.03 X10^3/uL (0.83-4.51); Absolute Neutrophil Count 7.9 X10^3/uL (2.0-7.7); Basophil# 0.04 X10^3/uL; Basophil% 0.3 % (0-1); Eosinophil# 0.26 X10^3/uL; Eosinophils% 2.1 % (0-5); Hematocrit 40.8 % (37-47); Hemoglobin 12.9 g/dL (12.0-15.0); Lymphocyte # 2.03 X10^3/ul (0.83-4.51); Lymphocyte % 16.6 % (19-41); Mean Corp Hgb Conc 31.6 g/dL (32-36); Mean Corpuscular Hgb 30.8 pg (27.0-32.0); Mean Corpuscular Volume 97.4 fL (81-99); Mean Platelet Vol. 11.5 fl (6.2-12.0); Monocyte# 1.99 X10^3/uL; Monocyte% 16.3 % (0-10); NRBC Flagged by Analyzer 0 % (0-5); Neutrophil # 7.85 X10^3/uL (2.7-7.7); Neutrophil % 64.1 % (47-70); POSITIVE DIFFERENTIAL YES; Platelet Count 249 K/mm3 (150-450); RBC Distribution Width CV 12.9 % (11.6-14.6); RBC Distribution Width SD 45.7 fl (35.1-43.9); Red Blood Count 4.19 M/mm3 (4.2-5.4); White Blood Count 12.2 K/mm3 (4.4-11.0)
[2024-11-11 12:14] LABS: Differential Indicated SCAN CRITERIA MET
[2024-11-11 12:37] LABS: Differential Comment SCANNED
[2024-11-11 13:10] LABS: ALB/GLOB Ratio 1.2 RATIO (0.9-2.4); AST(SGOT) 20 U/L (<=31); Alanine Aminotransfer ALT/SGPT < 5 U/L (<=34); Alkaline Phosphatase 207 U/L (35-104); Anion Gap 13 (5-15); BUN 6 mg/dL (4-19); BUN/Creat Ratio 9.4 RATIO (10-20); Calcium,Total 9.7 mg/dL (7.6-11.0); Carbon Dioxide 25.6 mmol/L (21.0-32.0); Chloride 101 mmol/L (98-108); Creatinine, Serum 0.64 mg/dL (0.70-1.20); EST Glomerular Filtration Rate 92 (>60); Globulin 3.3 g/dL (2.2-4.2); Glucose 80 mg/dL (70-99); Potassium 4.1 mmol/L (3.3-5.1); Protein, Total 7.2 g/dL (5.9-8.4); Sodium Level 139 mmol/L (133-145)
== END | disposition home or self-care (01) ==
LOC: LAB 09:50
PROVIDERS: PCP Family Medicine Geriatric Medicine; Referring Provider Internal Medicine Rheumatology; Visit Provider Internal Medicine Rheumatology
DX: M06.4 Inflammatory polyarthropathy (principal); Z79.899 Other long term (current) drug therapy
CPT/HCPCS: 36415; 80053; 85025

== ENCOUNTER 2024-11-15 10:01 | Outpatient (CLI) | payer MEDICARE, SELFPAY ==
[2024-11-15 10:45] VITALS: BP 110/65; PULSE 74; RESP 16; TEMP 35.9; O2SAT 97; BMI 24.0
[2024-11-15] MEDS: Zoledronic Acid 5 MG 100 ML 300 MG IV (10:56)
[2024-11-15] MEDS: 0.9% NaCl Peripheral Flush Adult IV (10:58)
[2024-11-15] MEDS: 0.9% NaCl IVPB Med Flush (100mL) 15 ML IV (10:58)
[2024-11-15 11:33] VITALS: BP 104/58; PULSE 72; RESP 16; TEMP 36; O2SAT 94
== END 2024-11-15 23:59 | disposition home or self-care (01) ==
LOC: MEDOUTP 10:02
PROVIDERS: PCP Family Medicine Geriatric Medicine; Referring Provider Family Medicine Geriatric Medicine; Visit Provider Family Medicine Geriatric Medicine
DX: M81.0 Age-related osteoporosis without current pathological fracture (principal)
CPT/HCPCS: 96365; A4216; J3489

== ENCOUNTER → 2024-12-30 | Outpatient (CLI) | payer MEDICARE, SELFPAY ==
[2024-12-30 10:04] LABS: Hematocrit 35.2 % (37-47); Hemoglobin 11.2 g/dL (12.0-15.0); Immature Granulocytes Count 0.060 X10^3/uL (0.0-0.0); Mean Corp Hgb Conc 31.8 g/dL (32-36); Mean Corpuscular Volume 92.1 fL (81-99); Mean Platelet Vol. 11.2 fl (6.2-12.0); NRBC Flagged by Analyzer 0 % (0-5); POSITIVE DIFFERENTIAL YES; Platelet Count 285 K/mm3 (150-450); RBC Distribution Width CV 13.8 % (11.6-14.6); RBC Distribution Width SD 45.7 fl (35.1-43.9); Red Blood Count 3.82 M/mm3 (4.2-5.4); White Blood Count 8.6 K/mm3 (4.4-11.0)
[2024-12-30 10:08] LABS: Differential Indicated SCAN CRITERIA MET
[2024-12-30 10:24] LABS: Prothrombin Time (Protime)PT. 13.5 SECONDS (11.7-14.9)
[2024-12-30 11:07] LABS: Cholesterol 131 mg/dL (<=200); Low Density Lipoprotein Calc. 61 mg/dL; Triglycerides 122 mg/dL; Very Low Density Lipoprotein 24 mg/dL (5-40); cholesterol:hdl ratio screen 2.89
[2024-12-30 11:24] LABS: CRP 6.16 mg/L (0.0-3.0); LDH 182 U/L (84-246)
[2024-12-30 11:25] LABS: AST(SGOT) 17 U/L (<=31); Alanine Aminotransfer ALT/SGPT < 5 U/L (<=34); Albumin, Serum 3.9 g/dL (3.4-4.8); Alkaline Phosphatase 131 U/L (35-104); Anion Gap 15 (5-15); BUN 9 mg/dL (4-19); BUN/Creat Ratio 13.1 RATIO (10-20); Calcium,Total 9.7 mg/dL (7.6-11.0); Carbon Dioxide 18.8 mmol/L (21.0-32.0); Chloride 101 mmol/L (98-108); Ferritin 1305 ng/mL (22-378); Globulin 3.5 g/dL (2.2-4.2); Glucose 82 mg/dL (70-99); Potassium 4.0 mmol/L (3.3-5.1); Vitamin D,25 Hydroxy 51.7 ng/mL (30-100)
[2024-12-31 14:09] LABS: ANTINUCLEAR ANTIBODIES DIRECT Negative (Negative); Anti-Smooth Muscle ABS 10 Units (0-19)
== END | disposition home or self-care (01) ==
LOC: LAB 09:17
PROVIDERS: Internal Medicine; PCP Family Medicine Geriatric Medicine; Referring Provider Internal Medicine Rheumatology; Visit Provider Internal Medicine Rheumatology
DX: K76.0 Fatty (change of) liver, not elsewhere classified (principal); K74.3 Primary biliary cirrhosis; M06.4 Inflammatory polyarthropathy; K75.4 Autoimmune hepatitis; R79.89 Other specified abnormal findings of blood chemistry; E78.5 Hyperlipidemia, unspecified; D64.9 Anemia, unspecified; R77.2 Abnormality of alphafetoprotein; Z79.899 Other long term (current) drug therapy
CPT/HCPCS: 80053; 80061; 82105; 82306; 82728; 83010; 83516; 83615; 85025; 85610; 86038; 86140; 86225; 86235

== ENCOUNTER 2025-02-28 14:00 | Outpatient (CLI) | payer MEDICARE, SELFPAY ==
[2025-02-28 14:40] LABS: Hematocrit 36.8 % (37-47); Hemoglobin 11.6 g/dL (12.0-15.0); Immature Granulocytes Count 0.040 X10^3/uL (0.0-0.0); Mean Corp Hgb Conc 31.5 g/dL (32-36); Mean Corpuscular Volume 91.5 fL (81-99); Mean Platelet Vol. 11.2 fl (6.2-12.0); NRBC Flagged by Analyzer 0 % (0-5); Platelet Count 292 K/mm3 (150-450); RBC Distribution Width CV 14.8 % (11.6-14.6); RBC Distribution Width SD 49.1 fl (35.1-43.9); Red Blood Count 4.02 M/mm3 (4.2-5.4); White Blood Count 8.6 K/mm3 (4.4-11.0)
[2025-02-28 14:52] LABS: Prothrombin Time (Protime)PT. 14.6 SECONDS (11.7-14.9)
[2025-02-28 15:24] LABS: Ferritin 1620 ng/mL (22-378)
[2025-02-28 16:22] LABS: CRP 3.28 mg/L (0.0-3.0); Iron 97 ug/dL (50-170); Iron Binding Capacity,Total 262 ug/dL (250-450); Iron Binding Capacity,Unsat 165 ug/dL (228-428); LDH 185 U/L (84-246)
[2025-02-28 16:23] LABS: AST(SGOT) 22 U/L (<=31); Alanine Aminotransfer ALT/SGPT < 5 U/L (<=34); Albumin, Serum 3.9 g/dL (3.4-4.8); Alkaline Phosphatase 96 U/L (35-104); Anion Gap 12 (5-15); BUN 7 mg/dL (4-19); BUN/Creat Ratio 11.6 RATIO (10-20); Calcium,Total 9.2 mg/dL (7.6-11.0); Carbon Dioxide 22.1 mmol/L (21.0-32.0); Chloride 104 mmol/L (98-108); Globulin 3.4 g/dL (2.2-4.2); Glucose 90 mg/dL (70-99); Potassium 4.2 mmol/L (3.3-5.1)
[2025-03-02 08:07] LABS: Transferrin 217 mg/dL (192-364)
== END 2025-02-28 23:59 | disposition home or self-care (01) ==
PROVIDERS: Internal Medicine; PCP Family Medicine Geriatric Medicine; Referring Provider Internal Medicine Rheumatology; Visit Provider Internal Medicine Rheumatology
DX: M06.4 Inflammatory polyarthropathy (principal); Z79.899 Other long term (current) drug therapy; K76.0 Fatty (change of) liver, not elsewhere classified; R07.9 Chest pain, unspecified; R79.89 Other specified abnormal findings of blood chemistry; D59.0 Drug-induced autoimmune hemolytic anemia; R53.1 Weakness; E78.5 Hyperlipidemia, unspecified; F32.A Depression, unspecified
CPT/HCPCS: 36415; 80053; 82728; 83540; 83550; 83615; 84466; 85025; 85610; 86140

== ENCOUNTER → 2025-03-03 | Outpatient (CLI) | payer MEDICARE, SELFPAY ==
[2025-03-03 15:00] LABS: Cholesterol 121 mg/dL (<=200); Low Density Lipoprotein Calc. 56 mg/dL; Triglycerides 100 mg/dL; Very Low Density Lipoprotein 20 mg/dL (5-40); Vitamin D,25 Hydroxy 58.0 ng/mL (30-100); cholesterol:hdl ratio screen 2.67
[2025-03-03 20:50] LABS: Xtra Tube Kwok EXTRA TUBE
== END | disposition home or self-care (01) ==
LOC: POLAB3 12:48
PROVIDERS: PCP Family Medicine Geriatric Medicine; Visit Provider Family Medicine Geriatric Medicine
DX: E78.5 Hyperlipidemia, unspecified (principal); I10 Essential (primary) hypertension; E55.9 Vitamin D deficiency, unspecified
CPT/HCPCS: 36415; 80061; 82306; 84443